=== PATIENT | female | born 1970 | race Caucasian/White ===

== ENCOUNTER 2020-10-22 02:32 | Emergency (ER) | payer BC, SELFPAY ==
--- NOTE | ~2020-10-22 | US_ITS ---
EXAMINATION: US VENOUS ULTRASOUND WITH DOPPLER LOWER EXTREMITY, BILATERAL CLINICAL INFORMATION: Bilateral lower extremity edema. Assess for occult DVT. COMPARISON: None TECHNIQUE: Ultrasound of the deep veins is performed from the hip to the calf with compression sonography and color and pulse Doppler assessment. Spectral analysis with color-flow imaging is performed. FINDINGS: RIGHT: There is normal venous compression and respiratory variation and augmented flow. The visualized common femoral vein, superficial femoral vein, profunda femoral vein, popliteal vein, and the trifurcation region shows no evidence of deep venous thrombosis. No visible popliteal fossa cyst. LEFT: There is normal venous compression and respiratory variation and augmented flow. The visualized common femoral vein, superficial femoral vein, profunda femoral vein, popliteal vein, and the trifurcation region shows no evidence of deep venous thrombosis. No visible popliteal fossa cyst. US/US venous duplex LE BI IMPRESSION: No DVT demonstrated in the bilateral lower extremity.
[2020-10-22 02:54] VITALS: BP 129/88; PULSE 97; RESP 16; TEMP 36.7; O2SAT 98; BMI 40.7
--- NOTE | 2020-10-22 03:50 | PC.NURSE ---
PATIENT REPORTED TO THIS THAT SHE HAS BEEN TAKING LASIX TO REDUCE HER LEG SWELLING, AND STARTED TAKING AN ELIQUIS YESTERDAY, PATIENT HAS DISCOLORATION ON PARTS OF HER LEG, LOOKING LIKE BRUISING. PATIENT WAS ABLE TO AMBULATE.
[2020-10-22 05:34] LABS: MANUAL DIFF FLAG NO
[2020-10-22 05:35] LABS: Basophils Absolute Auto 0.1 X10*3/uL (0.0-0.2); Basophils Percent Auto 0.7 % (0-2); Eosinophils Absolute Auto 0.1 X10*3/uL (0.0-0.4); Hematocrit 34.1 % (37-47); Hemoglobin 11.3 g/dl (12.0-16.0); Imm Gran Abs Auto 0.02 X10*3/uL (0.00-0.03); Imm Gran Pct Auto 0.3 % (0.0-0.4); Lymphocytes Absolute Auto 1.2 X10*3/uL (1.2-4.9); Lymphocytes Percent Auto 16.8 % (20-40); Mean Corpuscular HGB Conc 33.1 g/dl (31.0-35.0); Mean Corpuscular Hemoglobin 32.2 pg (27.0-33.0); Mean Corpuscular Volume 97.2 fL (80-98); Mean Platelet Volume 9.3 fL (9.4-12.3); Monocytes Absolute Auto 0.6 X10*3/uL (0.1-1.2); Monocytes Percent Auto 7.8 % (2-11); Neutrophils Absolute Auto 5.1 X10*3/uL (2.0-8.3); Neutrophils Percent Auto 72.4 % (45-73); Platelet Count 366 X10*3/uL (160-400); Red Blood Count 3.51 X10*6/uL (4.20-5.50); Red Cell Distribution Width 17.4 % (11.0-16.0)
[2020-10-22 05:41] LABS: Prothrombin Time 11.3 SEC (9.9-13.0)
[2020-10-22 05:58] LABS: Alanine Aminotransferase 13 U/L (0-31); Alkaline Phosphatase 114 U/L (39-117); Anion Gap 13 (12-20); Aspartate Amino Transferase 23 U/L (5-31); Bilirubin Total 0.7 mg/dL (0.0-1.0); Blood Urea Nitrogen 5 mg/dL (9-16); Calcium 9.1 mg/dL (8.4-10.2); Carbon Dioxide 30 mmol/L (22-29); Chloride 102 mmol/L (96-108); Creatinine Clr Calc Pharmacy 118.2; Estimated Glomerular Filt Rate > 60; Glucose Random 131 mg/dL (60-115); Potassium 3.6 mmol/L (3.3-5.1); Sodium 141 mmol/L (135-145); Total Protein 6.7 g/dL (6.5-8.0)
[2020-10-22 05:58] LABS: Troponin-I High Sensitivity < 3.5 ng/L (<3.5-17.0)
--- NOTE | 2020-10-22 07:00 | PC.NURSE ---
First contact with patient. Pt is ambulating around room. Pt having erratic behavior. Pt encouraged to get in bed for assessment. Left leg and foot is swollen with multiple bruising noted on leg and behind knee. Pt states it is hot to touch. Skin temp is warm and the same temperature as the right leg and both arms. 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 When asked if she has a prescription she just says I have access .
[2020-10-22 07:13] VITALS: BP 133/57; PULSE 86; RESP 18; O2SAT 98
--- NOTE | 2020-10-22 07:15 | PC.NURSE ---
Pt ambulatory back from the bathroom after collecting a urine specimen. Urine appears very diluted and urine cup is cool for a specimen that was just collected.
[2020-10-22 07:26] LABS: Glucose Urine UA NEG (NEG); Leukocyte Esterase Urine NEG (NEG); Nitrite Urine NEG (NEG); Specific Gravity - Urine <= 1.005 (1.005-1.025); Urine Blood NEG (NEG); Urine Ketones NEG (NEG); Urine Protein NEG (NEG-TRACE)
--- NOTE | 2020-10-22 07:26 | ED.GENADULT ---
HPI - General Adult General Chief complaint: General Medical Stated complaint: left leg swelling Time Seen by Provider: 10/22/20 03:03 Source: patient Mode of arrival: ambulatory Limitations: no limitations History of Present Illness HPI narrative: Patient comes emergency room complaining of bilateral leg swelling, worse on the left side. Patient states about 3 weeks ago she took 3 doses of Lasix 40 mg/day but did not help much with the swelling. Patient states throughout the last couple of weeks the swelling actually started reducing. However, over last few days she started noticing that her left leg started getting warm, tender, and becoming more edematous. Patient states that she was able to get a hold of 5 mg of Xarelto, took 1 dose 2 days ago. Over the next 2 days, patient has been complaining of bruising from the knee to the foot on the left side. Patient denies fever chills Related Data Previous Rx's Medication Instructions Recorded cephalexin [Keflex] 750 mg PO BID #14 cap 10/22/20 doxycycline hyclate 100 mg PO BID #14 cap 10/22/20 furosemide [Lasix] 40 mg PO DAILY #7 tab 10/22/20 Allergies Allergy/AdvReac Type Severity Reaction Status Date / Time No Known Allergies Allergy Unverified 12/22/19 16:20 Review of Systems Review of Systems: Constitutional : No Weight loss, No Fever, No Chills, No Night Sweats, No Fatigue, No Malaise ENT/Mouth : No Hearing loss, No Ear Pain, No Nasal Congestion, No Sinus Pain, No Hoarseness, No sore throat, No Rhinorrhea, No Swallowing Difficulty Eyes: No Eye Pain, No Swelling, No Redness, No Foreign Body, No Discharge, No Vision Changes Cardiovascular : No Chest Pain, No SOB, No Dyspnea on Exertion, No Orthopnea, No Edema, No Palpitations Respiratory : No Cough, No Sputum, No Wheezing, No Smoke Exposure, No Dyspnea Gastrointestinal : No Nausea, No Vomiting, No Diarrhea, No Constipation, No abdominal Pain, No Hematochezia, No Melena Genitourinary : no irregular bleeding, No Dysuria, No Urinary Frequency, No Hematuria, No Urinary Incontinence, No Urgency, No Flank Pain, No Urinary Flow Changes, No Hesitancy Musculoskeletal : No joint pain, No Myalgias, complaining of bilateral lower extremity swelling and bruising on the left leg Skin : No Skin Lesions, No rash Neuro : No Weakness, No Numbness, No Paresthesias, No Loss of Consciousness, No Dizziness, No Headache Psych : No Anxiety/Panic, No Depression, No SI/HI/AH/VH, No Social Issues, Heme/Lymph: No Bruising, No Bleeding,No Lymphadenopathy Endocrine : No Polyuria, No Polydipsia, No Temperature Intolerance [facility] Past Medical History Medical History Alcohol abuse Social History Social History Advance Directives: Yes Advance Directives Information Provided: Yes Advance Directives on File: No Patient : No Physical Exam Vital Signs: Vital Signs: Last Vital Signs Temp 98.1 F 10/22/20 02:54 Pulse 82 10/22/20 10:22 Resp 20 10/22/20 10:22 BP 140/82 H 10/22/20 10:22 Pulse Ox 98 10/22/20 10:22 Body Mass Index 40.7 Appearance: Alert. Oriented X3. No acute distress. Eyes: Pupils equal, round and reactive to light. ENT: Pharynx normal. Neck: Normal inspection. Neck supple. No lymph nodes noted. No crepitus CVS: Normal heart rate and rhythm. Pulses normal. Normal S1 and S2 Respiratory: No respiratory distress. Breath sounds normal. No Wheezing. No rales Abdomen: Soft and nontender. No rigidity. No distention. good BS x4 Skin: Skin warm and dry. Normal skin color. Normal skin turgor. Extremities: Bilateral lower extremity pitting edema, +1 in the right side, close 3 in the left extremity from the knee down, diffuse ecchymosis from the knee down, erythema above the ankles on the left leg, warm to touch, no calf pain bilaterally Neuro: Oriented X 3. No motor deficit. No sensory deficit. Moving all extermities. No slurred speech. Course Course Course Narrative: Ultrasound pending. Patient denies chest pain or shortness of breath. Patient while blood cell count is within normal limits, ultrasound does not show any DVT. Patient likely has lower extremity cellulitis. Patient given a prescription for Lasix and also Keflex and doxycycline. Medical Decision Making Lab Data Result diagrams: 10/22/20 05:26 10/22/20 05:26 Labs: Lab Results 10/22/20 10/22/20 10/22/20 Range/Units 05:26 05:26 05:26 WBC 7.0 (4.8-10.8) X10*3/uL RBC 3.51 L (4.20-5.50) X10*6/uL Hgb 11.3 L (12.0-16.0) g/dl Hct 34.1 L (37-47) % MCV 97.2 (80-98) fL MCH 32.2 (27.0-33.0) pg MCHC 33.1 (31.0-35.0) g/dl RDW 17.4 H (11.0-16.0) % Plt Count 366 (160-400) X10*3/uL MPV 9.3 L (9.4-12.3) fL Immature Gran % (Auto) 0.3 (0.0-0.4) % Neut % (Auto) 72.4 (45-73) % Lymph % (Auto) 16.8 L (20-40) % [place] % (Auto) 7.8 (2-11) % Eos % (Auto) 2.0 (0-4) % Baso % (Auto) 0.7 (0-2) % Lymph # (Auto) 1.2 (1.2-4.9) X10*3/uL [place] # (Auto) 0.6 (0.1-1.2) X10*3/uL Eos # (Auto) 0.1 (0.0-0.4) X10*3/uL Baso # (Auto) 0.1 (0.0-0.2) X10*3/uL Abs Immat Gran (auto) 0.02 (0.00-0.03) X10*3/uL Absolute Neuts (auto) 5.1 (2.0-8.3) X10*3/uL Absolute Nucleated RBC 0.000 (0.0-0.012) X10*3/uL Nucleated RBC % (auto) 0.0 (0.0-0.2) /100WBC PT 11.3 (9.9-13.0) SEC INR 1.0 (0.9-1.1) Sodium 141 (135-145) mmol/L Potassium 3.6 (3.3-5.1) mmol/L Chloride 102 (96-108) mmol/L Carbon Dioxide 30 H (22-29) mmol/L Anion Gap 13 (12-20) BUN 5 L (9-16) mg/dL Creatinine 0.65 (0.5-1.4) mg/dL Estim Creat Clear Calc 118.2 Estimated GFR > 60 Random Glucose 131 H (60-115) mg/dL Calcium 9.1 (8.4-10.2) mg/dL Total Bilirubin 0.7 (0.0-1.0) mg/dL AST 23 (5-31) U/L ALT 13 (0-31) U/L Alkaline Phosphatase 114 (39-117) U/L Troponin I High Sens (<3.5-17.0) ng/L Total Protein 6.7 (6.5-8.0) g/dL Albumin 4.0 (3.5-5.0) g/dL Urine Color Urine Appearance Urine pH (5.0-8.0) Ur Specific [place] (1.005-1.025) Urine Protein (NEG-TRACE) MG/DL Urine Glucose (UA) (NEG) MG/DL Urine Ketones (NEG) MG/DL Urine Blood (NEG) Urine Nitrite (NEG) Ur Leukocyte Esterase (NEG) Urine Opiates Screen (Not Detect) Ur Barbiturates Screen (Not Detect) Ur Phencyclidine Scrn (Not Detect) Ur Amphetamines Screen (Not Detect) U Benzodiazepines Scrn (Not Detect) Urine Cocaine Screen (Not Detect) U Marijuana (THC) Screen (Not Detect) 10/22/20 10/22/20 10/22/20 Range/Units 05:27 07:17 07:17 WBC (4.8-10.8) X10*3/uL RBC (4.20-5.50) X10*6/uL Hgb (12.0-16.0) g/dl Hct (37-47) % MCV (80-98) fL MCH (27.0-33.0) pg MCHC (31.0-35.0) g/dl RDW (11.0-16.0) % Plt Count (160-400) X10*3/uL MPV (9.4-12.3) fL Immature Gran % (Auto) (0.0-0.4) % Neut % (Auto) (45-73) % Lymph % (Auto) (20-40) % [place] % (Auto) (2-11) % Eos % (Auto) (0-4) % Baso % (Auto) (0-2) % Lymph # (Auto) (1.2-4.9) X10*3/uL [place] # (Auto) (0.1-1.2) X10*3/uL Eos # (Auto) (0.0-0.4) X10*3/uL Baso # (Auto) (0.0-0.2) X10*3/uL Abs Immat Gran (auto) (0.00-0.03) X10*3/uL Absolute Neuts (auto) (2.0-8.3) X10*3/uL Absolute Nucleated RBC (0.0-0.012) X10*3/uL Nucleated RBC % (auto) (0.0-0.2) /100WBC PT (9.9-13.0) SEC INR (0.9-1.1) Sodium (135-145) mmol/L Potassium (3.3-5.1) mmol/L Chloride (96-108) mmol/L Carbon Dioxide (22-29) mmol/L Anion Gap (12-20) BUN (9-16) mg/dL Creatinine (0.5-1.4) mg/dL Estim Creat Clear Calc Estimated GFR Random Glucose (60-115) mg/dL Calcium (8.4-10.2) mg/dL Total Bilirubin (0.0-1.0) mg/dL AST (5-31) U/L ALT (0-31) U/L Alkaline Phosphatase (39-117) U/L Troponin I High Sens < 3.5 (<3.5-17.0) ng/L Total Protein (6.5-8.0) g/dL Albumin (3.5-5.0) g/dL Urine Color STRAW Urine Appearance CLEAR Urine pH 6.0 (5.0-8.0) Ur Specific [place] <= 1.005 (1.005-1.025) Urine Protein NEG (NEG-TRACE) MG/DL Urine Glucose (UA) NEG (NEG) MG/DL Urine Ketones NEG (NEG) MG/DL Urine Blood NEG (NEG) Urine Nitrite NEG (NEG) Ur Leukocyte Esterase NEG (NEG) Urine Opiates Screen Not Detected (Not Detect) Ur Barbiturates Screen Not Detected (Not Detect) Ur Phencyclidine Scrn Not Detected (Not Detect) Ur Amphetamines Screen POSITIVE H (Not Detect) U Benzodiazepines Scrn POSITIVE H (Not Detect) Urine Cocaine Screen Not Detected (Not Detect) U Marijuana (THC) Screen Not Detected (Not Detect) Imaging Data Lower extremity ultrasound: Radiologist's impression: RIGHT: There is normal venous compression and respiratory variation and augmented flow. The visualized common femoral vein, superficial femoral vein, profunda femoral vein, popliteal vein, and the trifurcation region shows no evidence of deep venous thrombosis. No visible popliteal fossa cyst. LEFT: There is normal venous compression and respiratory variation and augmented flow. The visualized common femoral vein, superficial femoral vein, profunda femoral vein, popliteal vein, and the trifurcation region shows no evidence of deep venous thrombosis. No visible popliteal fossa cyst. US/US venous duplex LE BI IMPRESSION: No DVT demonstrated in the bilateral lower extremity. Discharge Plan Discharge Clinical Impression: Bilateral leg edema, Cellulitis of left lower leg Patient Disposition: Home, Self-Care Instructions: Cellulitis (ED), Leg Edema (ED) Additional Instructions: Please follow-up with your primary care physician tomorrow. If you have any worsening or new symptoms, please return to the emergency room or call 911 Prescriptions: New furosemide [Lasix] 40 mg tablet 40 mg PO DAILY Qty: 7 RF: 0 doxycycline hyclate 100 mg capsule 100 mg PO BID Qty: 14 RF: 0 cephalexin [Keflex] 750 mg capsule 750 mg PO BID Qty: 14 RF: 0 Stand Alone Forms: Work/School Release
[2020-10-22 07:29] LABS: Appearance Urine CLEAR; Color Urine STRAW
--- NOTE | 2020-10-22 07:55 | PC.NURSE ---
Patient ambulating in hallway without mask being loud and demanding someone call ultrasound about doing her ultrasound as soon as possible. Pt encouraged to go back to room and attempts made to explain to patient the ultrasound will call when it is her turn in there schedule. Pt continues to be loud and using profanity toward staff not wanting to go back to her room.
[2020-10-22 07:59] LABS: Amphetamine Screen Urine POSITIVE (Not Detect); Barbiturates, Urine Not Detected (Not Detect); Benzodiazepines Screen Urine POSITIVE (Not Detect); Cannabinoid Screen Urine Not Detected (Not Detect); Cocaine Screen Urine Not Detected (Not Detect); Opiate Screen Urine Not Detected (Not Detect); Phencyclidine Screen Urine Not Detected (Not Detect)
--- NOTE | 2020-10-22 08:00 | PC.NURSE ---
Patient in room pulling call light out of wall and putting it back in repeatedly then turning it off. Pt tells staff responding to call light that she does not need anything. Pt asked by nursing staff not to play with call light.
--- NOTE | 2020-10-22 08:05 | PC.NURSE ---
Patient in room pulling call light out of wall and putting it back in repeatedly then turning it off. Pt tells staff responding to call light that she does not need anything Pt asked by nursing staff not to play with call light.
--- NOTE | 2020-10-22 08:05 | PC.NURSE ---
Patient and her belongings are no longer in room.
--- NOTE | 2020-10-22 08:17 | PC.NURSE ---
ULTRASOUND CALLED FOR PT. SHE IS NOT INHER ROOM OR FOUND IN THE ED AT THIS TIME
--- NOTE | 2020-10-22 08:35 | PC.NURSE ---
Patient has returned to ER after disappearing. Pt informed ultrasound had come to get her and she was no where to be found. Pt placed in hallway bed and ultrasound notifed that patient has returned
--- NOTE | 2020-10-22 08:50 | PC.NURSE ---
Patient to ultrasound via stretcher.
--- NOTE | 2020-10-22 09:50 | PC.NURSE ---
pt back from ultrasound
[2020-10-22 10:22] VITALS: BP 140/82; PULSE 82; RESP 20; O2SAT 98
--- NOTE | 2020-10-22 10:23 | PC.NURSE ---
Patient in hallway pacing between a chair and bed she is assigned to. Pt stopping various hospital staff members to go get the doctor because she wants to home. Pt reassured that the doctor will be with her soon, that the doctor is with another patient. Even after being reassured by different nursing staff that the doctor sebastian be coming. Pt states she just needs a work excuse to cover her for all the days she has missed from work.
--- NOTE | 2020-10-22 10:35 | PC.NURSE ---
Patient is at nurses station being loud and demanding for doctor to see her so she can get her discharge papers and work excuse. Pt encouraged to go back to her bed. Pt refuses and is being confrontational with nursing staff. Security escorting patient back to her assigned bed.
--- NOTE | 2020-10-22 10:44 | PC.NURSE ---
discharge instructions given to pt who verbalized understanding and denies any questions. pt amb to exit in no distress
== END 2020-10-22 10:45 | disposition home or self-care (01) ==
PROVIDERS: Emergency Provider Emergency Medicine
DX: L03.116 Cellulitis of left lower limb (principal); R60.0 Localized edema
CPT/HCPCS: 36415; 80053; 80307; 81003; 84484; 85025; 85610; 93970; 99284

== ENCOUNTER 2021-01-01 20:48 | Emergency (ER) | payer BC, SELFPAY ==
[2021-01-01 20:57] VITALS: BP 139/81; PULSE 120; RESP 19; TEMP 37.3; O2SAT 95; BMI 29.0
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
[2021-01-01 21:23] LABS: MANUAL DIFF FLAG NO
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
[2021-01-01 21:27] LABS: Basophils Percent Auto 0.6 % (0-2); Eosinophils Percent Auto 0.3 % (0-4); Hematocrit 40.3 % (37-47); Hemoglobin 13.8 g/dl (12.0-16.0); Imm Gran Abs Auto 0.01 X10*3/uL (0.00-0.03); Imm Gran Pct Auto 0.3 % (0.0-0.4); Lymphocytes Absolute Auto 0.8 X10*3/uL (1.2-4.9); Lymphocytes Percent Auto 23.9 % (20-40); Mean Corpuscular HGB Conc 34.2 g/dl (31.0-35.0); Mean Corpuscular Hemoglobin 33.9 pg (27.0-33.0); Mean Platelet Volume 8.9 fL (9.4-12.3); Monocytes Absolute Auto 0.1 X10*3/uL (0.1-1.2); Monocytes Percent Auto 4.4 % (2-11); Neutrophils Absolute Auto 2.2 X10*3/uL (2.0-8.3); Neutrophils Percent Auto 70.5 % (45-73); Platelet Count 326 X10*3/uL (160-400); Red Blood Count 4.07 X10*6/uL (4.20-5.50); Red Cell Distribution Width 15.4 % (11.0-16.0); White Blood Count 3.2 X10*3/uL (4.8-10.8)
[2021-01-01 21:27] LABS: Appearance Urine HAZY; Color Urine YELLOW; Glucose Urine UA NEG (NEG); Leukocyte Esterase Urine NEG (NEG); Nitrite Urine NEG (NEG); UACC Culture Trigger NO; Urine Blood TRACE (NEG); Urine Ketones NEG (NEG); Urine Protein TRACE MG/DL (NEG-TRACE)
[2021-01-01 21:33] LABS: UPreg QC Valid YES; Urine Pregnancy NEGATIVE (NEGATIVE)
[2021-01-01 21:36] LABS: Bacteria Urine 2+ /LPF; RBC Urine 0-2 /HPF (0); Squamous Epithelial Cell Urine 3+ /LPF; WBC Urine 0-2 /HPF (0-4)
[2021-01-01 21:39] LABS: COVID-19 Test Negative (Negative)
[2021-01-01 21:39] LABS: Ethanol 327 mg/dL
[2021-01-01 21:47] LABS: Alanine Aminotransferase 20 U/L (0-31); Alkaline Phosphatase 92 U/L (39-117); Anion Gap 19 (12-20); Aspartate Amino Transferase 43 U/L (5-31); Bilirubin Direct 0.2 mg/dL (0.0-0.5); Bilirubin Total 0.6 mg/dL (0.0-1.0); Blood Urea Nitrogen 7 mg/dL (9-16); Calcium 8.6 mg/dL (8.4-10.2); Carbon Dioxide 21 mmol/L (22-29); Chloride 106 mmol/L (96-108); Creatinine Clr Calc Pharmacy 105.7; Estimated Glomerular Filt Rate > 60; Glucose Random 148 mg/dL (60-115); Potassium 4.1 mmol/L (3.3-5.1); Sodium 142 mmol/L (135-145); Total Protein 7.3 g/dL (6.5-8.0)
[2021-01-01] MEDS: chlordiazePOXIDE HCl 25 MG CAPSULE 50 MG PO (21:58)
[2021-01-01 23:28] VITALS: BP 143/89; PULSE 107; RESP 17; TEMP 36.9; O2SAT 96
[2021-01-02 05:09] VITALS: BP 143/91; PULSE 105; RESP 17; O2SAT 97
[2021-01-02] MEDS: chlordiazePOXIDE HCl 25 MG CAPSULE 50 MG PO ×3 (05:15→14:21)
[2021-01-02 05:25] LABS: Amphetamine Screen Urine Not Detected (Not Detect); Barbiturates, Urine Not Detected (Not Detect); Benzodiazepines Screen Urine Not Detected (Not Detect); Cannabinoid Screen Urine Not Detected (Not Detect); Cocaine Screen Urine Not Detected (Not Detect); Fentanyl, urine Not Detected (Not Detect); Opiate Screen Urine Not Detected (Not Detect); Phencyclidine Screen Urine Not Detected (Not Detect)
--- NOTE | 2021-01-02 05:54 | PC.NURSE ---
Patient slept five and half hours, patient is waiting to be seen by the care team in the morning, patient is hyper-verbal, loud, argumentative, medication seeking, patient is tangential, alert and oriented x4, VSS, received Librium 50 mg x2 for comfort, patient is asymptomatic of withdrawal at this time, will continue to monitor.
[2021-01-02] MEDS: Buprenorphine/Naloxone 2/0.5mg FILM 1 FILM SUBLINGUAL (06:26)
--- NOTE | 2021-01-02 06:29 | PC.NURSE ---
Patient requested her suboxone early, provider notified/okayed, administered as ordered,
[2021-01-02 07:51] VITALS: BP 155/101; PULSE 110; RESP 20; TEMP 36.8
--- NOTE | 2021-01-02 08:50 | PC.NURSE ---
Care team meeting with pt at this time.
--- NOTE | 2021-01-02 09:18 | PC.NURSE ---
John Mims called wanting to speak with clinician [phone]
[2021-01-02] MEDS: DULoxetine HCl 30 MG CAPSULE.DR PO (09:39)
--- NOTE | 2021-01-02 12:25 | MHC.RECOVSUP ---
? Reason for consult:Continuity of care o Current location: [facility] o Identified substance use concern: ETOH - Withdrawal - Seeking ATS (detox) - Support ? Intervention: o ATS bed search started/completed/in process o MAT started or to be started o Community resources provided o Harm reduction discussion ? Plan: o Referral to [facility] o Bed search in progress to o Patient to follow up with [facility] after discharge ? Additional information: Pt. refusing detox, gave pt. community resources, Pt. wants detox tomorrow.
--- NOTE | 2021-01-02 13:12 | MHC.CARE ---
Beginning at 8:45 am CARE Team met with patient in [facility] for a lengthy conversation. She was sitting up in bed, appeared her stated age, dressed in hospital gown, hygiene and grooming unremarkable, she maintained appropriate eye contact, was alert and fully oriented. Patient?s speech was notably pressured and rapid, expansive, somewhat tangential though did eventually get to her point or answer the question asked. She reviewed multiple losses, 20 year sustained recovery from opiate addiction, several detoxes from alcohol over the last two years and current involvement with DCF. Patient and her have two children; due to relapses on they were both in DCF custody and living with relatives for the last year. 13 year-old daughter was returned home yesterday with the stipulation that patient be out of the home. By report, patient was sleeping in her car outside the family home and her nephew came and drove her to a hotel last night where she subsequently drank, was driving and was stopped by the police and made suicidal statements then brought to [facility] ED. Today patient stated that she is not suicidal, has no plan or intention to end her life, admitted that she has been under tremendous stress, was quite intoxication and may have said something to that effect. At this time she does not want detox, wants to go home, shower and gather her things at home and will self-refer tomorrow. Patient was strongly encouraged not go home and to accept the help offered. Multiple conversations with patient?s , he stated that he is not concerned his will commit suicide and she has no history of gestures or attempts. Ultimately the hospital cannot keep patient here against her will and she does not want the recommended level of care recommended. Several back and forth meetings with patient who changed her mind several times, asked to be discharged. ? Discussed disposition with receiving supervisor, KWASI Nix and ED provider, DEJAH Erazo.
[2021-01-02] MEDS: Ondansetron ODT 4 MG TAB.RAPDIS TRANSLINGU (13:13)
[2021-01-02] MEDS: Loperamide HCl 2 MG CAPSULE PO (13:13)
--- NOTE | 2021-01-02 13:54 | MHC.CARE ---
Patient agreed to go to detox, did a phone intake with [facility] however is unable to go due to insurance, the plan is for her to discharge and self refer to detox and will take Librium tonight so she can abstain from alcohol safely. of patient adamant that she not go into the home as DCF mandated and patient agrees not to enter the home. Her will pack a bag and leave it in patient's car up the street from the family home and patient will go to a hotel.
--- NOTE | 2021-01-02 14:15 | MHC.RECOVSUP ---
Recovery Support note: Patient is a 50 year old Nauruan speaking female who presented to [facility] ED after making SI statements while intoxicated. Patient was seen by the CARE Team and cleared for discharge or detox. Patient met with Marine Oiler who reports patient wants to go to ATS tomorrow. Patient later changed her mind however was unable to go to a local facility due to insurance. This web content writer met with patient to discuss ATS. Patient reports she is very familiar with the process on how to refer to detox. Discussed ATS facilities and provided patient with numbers to call when she is ready for treatment. Discussed case with CARE Team.
== END 2021-01-02 14:40 | disposition home or self-care (01) ==
PROVIDERS: Emergency Medicine; Emergency Provider Internal Medicine
DX: F33.1 Major depressive disorder, recurrent, moderate (principal); R45.851 Suicidal ideations; F10.129 Alcohol abuse with intoxication, unspecified; Y90.8 Blood alcohol level of 240 mg/100 ml or more; Z20.822 Contact with and (suspected) exposure to COVID-19; Z79.899 Other long term (current) drug therapy
CPT/HCPCS: 36415; 80048; 80076; 80307; 81001; 81025; 82077; 83735; 85025; 87635; 99284

== ENCOUNTER 2021-05-19 18:02 | Inpatient (IN) | payer BC, SELFPAY ==
--- NOTE | ~2021-05-19 | XR_ITS ---
EXAMINATION: XR knee RT 2V, XR knee LT 2V CLINICAL INFORMATION: Fall and trauma. COMPARISON: None. TECHNIQUE: AP and lateral views of both knees. FINDINGS: Status post right total knee arthroplasty with patellar resurfacing. Hardware is intact. There is a well-corticated lucency anterior to the tibial component. No fracture, dislocation, or joint effusion. Status post left total knee arthroplasty with patellar resurfacing. There may be a small suprapatellar left joint effusion. Well-corticated lucency anterior to the tibial component is seen on the left as well. No fracture or dislocation. XR/XR knee LT 2V IMPRESSION: No acute osseous abnormality of either knee. Bilateral total knee arthroplasties with patellar resurfacing. Possible small suprapatellar left knee joint effusion. There is lucency anterior to the tibial components of both knee prostheses, more likely focal osteopenia than periprosthetic lucency to suggest loosening or hardware failure. No prior studies available for comparison. Comparison with postoperative studies would be helpful.
--- NOTE | ~2021-05-19 | XR_ITS ---
EXAMINATION: XR knee RT 2V, XR knee LT 2V CLINICAL INFORMATION: Fall and trauma. COMPARISON: None. TECHNIQUE: AP and lateral views of both knees. FINDINGS: Status post right total knee arthroplasty with patellar resurfacing. Hardware is intact. There is a well-corticated lucency anterior to the tibial component. No fracture, dislocation, or joint effusion. Status post left total knee arthroplasty with patellar resurfacing. There may be a small suprapatellar left joint effusion. Well-corticated lucency anterior to the tibial component is seen on the left as well. No fracture or dislocation. XR/XR knee RT 2V IMPRESSION: No acute osseous abnormality of either knee. Bilateral total knee arthroplasties with patellar resurfacing. Possible small suprapatellar left knee joint effusion. There is lucency anterior to the tibial components of both knee prostheses, more likely focal osteopenia than periprosthetic lucency to suggest loosening or hardware failure. No prior studies available for comparison. Comparison with postoperative studies would be helpful.
[2021-05-19 18:22] VITALS: BP 111/84; BP 150/90; PULSE 104; PULSE 127; RESP 20; TEMP 36.8; O2SAT 100; BMI 33.3
[2021-05-19 18:48] VITALS: PULSE 102
--- NOTE | 2021-05-19 19:02 | ED.GENADULT ---
HPI - General Adult General Chief complaint: ETOH/Substance Use Stated complaint: Etoh/fall Time Seen by Provider: 05/19/21 18:34 Source: patient and EMS Mode of arrival: EMS Limitations: no limitations History of Present Illness HPI narrative: 50-year-old female came in by ambulance for evaluation of multiple falls and alcoholism problem. Patient with chronic alcoholism problem, admitted that she has been bingeing drinking alcohol for the past week without eating, patient had a multiple falls with diffuse bruises on her scan on different part of her body mostly on her knees, back, buttock. Patient also found to have selma skin infection in the perineal area. Patient takes Suboxone 4 mg daily has not taking her daily Suboxone for the past week and patient is complaining of diarrhea. Related Data Home Medications Medication Instructions Recorded Confirmed buprenorphine 2 mg-naloxone 0.5 mg 1 strip SUBLINGUAL DAILY 01/02/21 01/02/21 sublingual film duloxetine 30 mg capsule,delayed 30 mg PO DAILY 01/02/21 01/02/21 release Previous Rx's Medication Instructions Recorded chlordiazepoxide HCl 25 mg capsule 25 mg PO Q6H PRN #8 cap 01/02/21 Allergies Allergy/AdvReac Type Severity Reaction Status Date / Time No Known Allergies Allergy Unverified 12/22/19 16:20 Review of Systems Review of Systems: All other systems are reviewed and are negative Constitutional: Reports as per HPI and Reports no additional constitutional complaints Eyes: Reports as per HPI and Reports no additional eye complaints Reports system reviewed and no additional complaints, except as documented Cardiovascular: Reports as per HPI and Reports no additional cardiovascular complaints Respiratory: Reports as per HPI and Reports no additional respiratory complaints Gastrointestinal: Reports as per HPI and Reports no additional gastrointestinal complaints Genitourinary: Reports no additional female genitourinary complaints Musculoskeletal: Reports no additional musculoskeletal complaints Skin/Breast: Reports system reviewed and no additional complaints, except as docu Psychiatric: Reports no additional psychiatric complaints Endocrine: Reports no additional endocrine complaints Hematologic/Lymphatic: Reports no additional hematologic/lymphatic complaints Allergic/Immunologic: Reports no additional allergic/immunologic complaints Reports system reviewed and no additional complaints, except as documented and Reports Abnormal speech present [facility] Past Medical History Medical History Alcohol abuse Surgical History (Updated 05/19/21 @ 19:53 by Darwin Day) History of gastric surgery Social History Social History Alcohol intake: current Alcohol intake frequency: 3 or more drinks per day Patient Tobacco Use Status: Tobacco use Unknown Use of substances other than those prescribed or required for medical reasons: Unknown Advance Directives: No Advance Directives Information Provided: Yes Physical Exam ED Vital Signs: Vital Signs - 24 hr 05/19/21 18:22 05/19/21 20:31 05/19/21 20:33 Temperature 98.3 F Pulse Rate 104 H 96 82 Respiratory Rate 20 Blood Pressure 111/84 128/81 106/71 Pulse Oximetry 100 05/19/21 21:00 Temperature Pulse Rate 104 H Respiratory Rate 18 Blood Pressure 106/71 Pulse Oximetry 95 BMI result Body Mass Index 33.3 Vital signs have been reviewed as appeared to be correct. Blood pressure normal. Heart rate elevated. Respiration rate normal. Temperature normal. Oxygen saturation normal. Appearance: Alert. Oriented X3. No acute distress. Head: Normal external exam. Normocephalic. Atraumatic. No Cobb signs noted. No raccoon eyes noted Eyes: PERRLA. EOMI. Conjunctiva and sclera normal. Eyelids normal. ENT: TM's Normal. Pharynx normal. Uvula midline. Moist mucous membranes. No trismus noted. No drooling noted. No muffled voice noted. Neck: Normal inspection. Neck supple. FROM. No adenopathy. Thyroid Normal. No meningeal signs. No neck mass noted. CVS: Normal heart rate and rhythm. Heart sound normal. No murmurs noted. Pulses normal throughout. Respiratory: No respiratory distress. Painless inspiration. Breath sounds normal. No wheezes/rales/rhonchi noted. Chest nontender. No accessory muscle usage noted or decreased air movement noted. Abdomen: Soft and nontender. Bowel sounds normal in all 4 quadrants. No distention noted. No organomegaly noted. No visible injury noted. Back: No CVA tenderness. Full range of motion noted. Skin: Skin redness consistent with Selma infection in the perineal area. Extremities: Diffuse ecchymosis of different stages on her buttock and bilateral knees area also on her back. Neuro: Oriented X 3. Cranial nerve exam: II-XII are grossly intact No motor deficit. No sensory deficit. Reflexes normal. Course Course Course Narrative: Assessment and plan. 50 years old female chronic alcoholism has been bingeing on alcohol for the past 7 days, came in with multiple falls, patient also on Suboxone that she did not take for the past week. 1. Hyponatremia will start on normal saline at 100 cc/hour and will get Nephrology consult. 2. Alcoholism expecting patient to start withdrawal once alcohol level is lower will start the patient on phenobarb. 3. Patient is disheveled with Selma skin infection in the perineal area when years nystatin. Reevaluation(s) Reevaluation #1: spoke with Dr. Sequeira from nephrology, recheck Na [id number] and continue with NS 100cc/hr, check urine lytes and osmolality. Time: 20:45 Medical Decision Making Lab Data Result diagrams: 05/19/21 19:15 05/19/21 19:15 Labs: Lab Results 05/19/21 05/19/21 05/19/21 Range/Units 19:15 19:15 19:15 WBC 7.3 (4.8-10.8) X10*3/uL RBC 3.68 L (4.20-5.50) X10*6/uL Hgb 11.7 L (12.0-16.0) g/dl Hct 32.1 L (37.0-47.0) % MCV 87.2 (80.0-98.0) fL MCH 31.8 (27.0-33.0) pg MCHC 36.4 H (31.0-35.0) g/dl RDW 17.3 H (11.0-16.0) % Plt Count 138 L (160-400) X10*3/uL MPV 9.5 (9.4-12.3) fL Immature Gran % (Auto) 0.3 (0.0-0.4) % Neut % (Auto) 89.9 H (45-73) % Lymph % (Auto) 2.9 L (20-40) % [place] % (Auto) 6.8 (2-11) % Eos % (Auto) 0.1 (0-4) % Baso % (Auto) 0.0 (0-2) % Lymph # (Auto) 0.2 L (1.2-4.9) X10*3/uL [place] # (Auto) 0.5 (0.1-1.2) X10*3/uL Eos # (Auto) 0.0 (0.0-0.4) X10*3/uL Baso # (Auto) 0.0 (0.0-0.2) X10*3/uL Abs Immat Gran (auto) 0.02 (0.00-0.03) X10*3/uL Absolute Neuts (auto) 6.6 (2.0-8.3) x10*3/uL Absolute Nucleated RBC 0.000 (0.0-0.012) X10*3/uL Nucleated RBC % (auto) 0.0 (0.0-0.2) /100WBC Sodium 122 L (135-145) mmol/L Potassium 3.9 (3.3-5.1) mmol/L Chloride 82 L D (96-108) mmol/L Carbon Dioxide 24 (22-29) mmol/L Anion Gap 20 (12-20) BUN 7 L (9-16) mg/dL Creatinine 0.55 (0.5-1.4) mg/dL Estim Creat Clear Calc 123.8 Estimated GFR > 60 Random Glucose 135 H (60-115) mg/dL Osmolality (281-305) mosm/kg Calcium 8.3 L (8.4-10.2) mg/dL Magnesium 1.9 (1.6-2.6) mg/dL Lipase 33 (8-78) U/L Ethyl Alcohol 356 H* mg/dL 05/19/21 Range/Units 19:18 WBC (4.8-10.8) X10*3/uL RBC (4.20-5.50) X10*6/uL Hgb (12.0-16.0) g/dl Hct (37.0-47.0) % MCV (80.0-98.0) fL MCH (27.0-33.0) pg MCHC (31.0-35.0) g/dl RDW (11.0-16.0) % Plt Count (160-400) X10*3/uL MPV (9.4-12.3) fL Immature Gran % (Auto) (0.0-0.4) % Neut % (Auto) (45-73) % Lymph % (Auto) (20-40) % [place] % (Auto) (2-11) % Eos % (Auto) (0-4) % Baso % (Auto) (0-2) % Lymph # (Auto) (1.2-4.9) X10*3/uL [place] # (Auto) (0.1-1.2) X10*3/uL Eos # (Auto) (0.0-0.4) X10*3/uL Baso # (Auto) (0.0-0.2) X10*3/uL Abs Immat Gran (auto) (0.00-0.03) X10*3/uL Absolute Neuts (auto) (2.0-8.3) x10*3/uL Absolute Nucleated RBC (0.0-0.012) X10*3/uL Nucleated RBC % (auto) (0.0-0.2) /100WBC Sodium (135-145) mmol/L Potassium (3.3-5.1) mmol/L Chloride (96-108) mmol/L Carbon Dioxide (22-29) mmol/L Anion Gap (12-20) BUN (9-16) mg/dL Creatinine (0.5-1.4) mg/dL Estim Creat Clear Calc Estimated GFR Random Glucose (60-115) mg/dL Osmolality 352 H (281-305) mosm/kg Calcium (8.4-10.2) mg/dL Magnesium (1.6-2.6) mg/dL Lipase (8-78) U/L Ethyl Alcohol mg/dL Imaging Data Bilateral knee x-ray: Attestation: I personally reviewed and interpreted this imaging study as follows: Radiologist's impression: No acute osseous abnormality of either knee. Bilateral total knee arthroplasties with patellar resurfacing. ? Possible small suprapatellar left knee joint effusion. ? There is lucency anterior to the tibial components of both knee prostheses, more likely focal osteopenia than periprosthetic lucency to suggest loosening or hardware failure. No prior studies available for comparison. Comparison with postoperative studies would be helpful. ? Discharge Plan Discharge Clinical Impression: Alcoholic intoxication, Alcohol withdrawal syndrome, Acute hyponatremia, Selma infection of flexural skin Patient Disposition: Admitted As Inpatient
--- NOTE | 2021-05-19 19:15 | PC.NURSE ---
pt alert and oriented to place, unsure of date reports increased agitation and anxiety from alcohol withdrawal. pt states she drank 4 beers today, has been drinking a 12 pack of beer and wine daily for the past 4 days. hasn't been eating or drinking any other liquids. pt states that she normally takes 4mg of suboxone daily, but has been unable to get medication from her doctor. last dose was 05/14/21 - 1mg. pt is requesting suboxone and has a plan to check into rehab. pt has been falling at home, now having difficulty getting up, knee pain from abrasions on knees. bruises all over body, pt states from falls due to alcohol intoxication. has been having nausea, but per pt unable to vomit due to gastric bypass surgery. denies head strike, LOC, and blood thinners. pt reports multiple episodes of diarrhea over the past 4 days, not able to make it to toilet at home. pt had a brief on that had been on for an undetermined length of time. brief was heavily soiled and had disintegrated inside. skin breakdown noted across backside, with a large bedsore. swellings also noted on both upper thighs. photo documented, but unable to pull off of ED camera due to no ink. stated SI thoughts to EMS and nurse but denies plan - Bladen Suicide scale of 2, hx of depression. COWS = 9; CIWA = 5, provider notified. provider in room to examine skin breakdown. also told EMS that pt was requesting rehab and had been noncompliant with suboxone.
[2021-05-19 19:20] LABS: MANUAL DIFF FLAG NO
[2021-05-19 19:21] LABS: Eosinophils Percent Auto 0.1 % (0-4); Hematocrit 32.1 % (37.0-47.0); Hemoglobin 11.7 g/dl (12.0-16.0); Imm Gran Abs Auto 0.02 X10*3/uL (0.00-0.03); Imm Gran Pct Auto 0.3 % (0.0-0.4); Lymphocytes Absolute Auto 0.2 X10*3/uL (1.2-4.9); Lymphocytes Percent Auto 2.9 % (20-40); Mean Corpuscular HGB Conc 36.4 g/dl (31.0-35.0); Mean Corpuscular Hemoglobin 31.8 pg (27.0-33.0); Mean Corpuscular Volume 87.2 fL (80.0-98.0); Mean Platelet Volume 9.5 fL (9.4-12.3); Monocytes Absolute Auto 0.5 X10*3/uL (0.1-1.2); Monocytes Percent Auto 6.8 % (2-11); Neutrophils Absolute Auto 6.6 x10*3/uL (2.0-8.3); Neutrophils Percent Auto 89.9 % (45-73); Platelet Count 138 X10*3/uL (160-400); Red Blood Count 3.68 X10*6/uL (4.20-5.50); Red Cell Distribution Width 17.3 % (11.0-16.0); White Blood Count 7.3 X10*3/uL (4.8-10.8)
[2021-05-19] MEDS: 0.9 % Sodium Chloride 1,000 ML 999 ML IV (19:21)
[2021-05-19] MEDS: LORazepam 1 MG TABLET PO (19:21)
[2021-05-19] MEDS: Buprenorphine/Naloxone 4/1 mg FILM 1 FILM SUBLINGUAL (19:21)
--- NOTE | 2021-05-19 19:22 | PC.NURSE ---
patient medicated per order, will call pharmacy for missing med
--- NOTE | 2021-05-19 19:22 | PC.NURSE ---
in presence of this nurse, patient stated I hate my life, I wish it was just over
[2021-05-19 19:33] LABS: Ethanol 356 mg/dL
[2021-05-19 19:37] LABS: Anion Gap 20 (12-20); Blood Urea Nitrogen 7 mg/dL (9-16); Calcium 8.3 mg/dL (8.4-10.2); Carbon Dioxide 24 mmol/L (22-29); Chloride 82 mmol/L (96-108); Creatinine Clr Calc Pharmacy 123.8; Estimated Glomerular Filt Rate > 60; Glucose Random 135 mg/dL (60-115); Lipase 33 U/L (8-78); Potassium 3.9 mmol/L (3.3-5.1); Sodium 122 mmol/L (135-145)
--- NOTE | 2021-05-19 19:43 | PC.NURSE ---
IV place left AC, labs drawn by tech.
--- NOTE | 2021-05-19 20:07 | PC.NURSE ---
call from [facility] wanting to set up pt with bed for after discharge from ED - has been calling to set up rehab placement. statistical secretary informed rehab that pt will be staying tonight and to call for update tomorrow. no other information provided to rehab. fax #: [phone]
--- NOTE | 2021-05-19 20:12 | PC.NURSE ---
pharmacy called on nystatin.
[2021-05-19] MEDS: PHENobarbitaL sodium 130 MG/ML VIAL 209 MG IM (20:28)
[2021-05-19 20:31] VITALS: BP 128/81; PULSE 96
[2021-05-19 20:33] VITALS: BP 106/71; PULSE 82
[2021-05-19 20:39] LABS: Magnesium 1.9 mg/dL (1.6-2.6)
--- NOTE | 2021-05-19 20:54 | PC.NURSE ---
first bag of ivf running slowly, will start second upon the first finishing
[2021-05-19 21:00] VITALS: BP 106/71; PULSE 104; RESP 18; O2SAT 95
--- NOTE | 2021-05-19 21:19 | PC.NURSE ---
pt sleeping, vss, will continue to monitor.
[2021-05-19] MEDS: Nystatin Powder 15 GM BOTTLE 1 APPL TOPICAL (21:21)
--- NOTE | 2021-05-19 21:23 | PC.NURSE ---
nystatin powder applied to groin area.
--- NOTE | 2021-05-19 21:51 | P.HPHOSP_ITS ---
History of Present Illness Date of Service: 05/19/21 Chief Complaint: alcohol abuse This is a 50-year-old female with history of opioid use disorder on Suboxone who presents to the hospital after been drinking for 7 days. Patient reports that her threatened to call 911 and therefore she decided to come to the hospital to seek help. She reports that for the past 7 days she has not been eating anything except drinking alcohol. She has also missed her Suboxone for the past week and therefore has daily diarrhea. She reports generalized weakness, fatigue, but otherwise has no chest pain, no shortness of breath, no palpitations, no nausea or vomiting, no urinary symptoms and no lower extremity edema. Patient reports her last drink was 3 hours prior to presentation to the hospital, she reports history of severe DTs. She has no numbness tingling, no weakness in upper or lower extremities. No headache or change in vision. On arrival to the ED patient found to have a heart rate of 104 otherwise hemodynamically stable, Labs are significant for WBC count of 7.3, hemoglobin of 11.7, hematocrit 32.1, platelet count of 138, sodium of 122, potassium of 3.9, chloride level of 82, BUN of 7, UA positive for leukocyte Estrace and WBC, COVID-19 negative, alcohol level of 356. Serum osmolality of 352, urine sodium less than 20, urine osmolality of 716 Nephrology consulted, patient given fluids, and will be started on 100 cc an hour of NS per Nephrology recommendation Patient started on phenobarb protocol and will be admitted for further management Review of Systems Review of Systems: Yes all other systems are reviewed and are negative [facility] Medical History (Updated 05/20/21 @ 06:56 by Teresa Malone MD) Alcohol abuse Opioid use disorder Family History (Updated 05/20/21 @ 06:56 by Teresa Malone MD) Father Lung cancer Surgical History (Updated 05/19/21 @ 19:53 by Darwin Day) History of gastric surgery Social History Alcohol intake: current Alcohol intake frequency: 3 or more drinks per day Patient Tobacco Use Status: Tobacco use Unknown Use of substances other than those prescribed or required for medical reasons: Unknown Advance Directives: No Advance Directives Information Provided: Yes Meds Allergies Allergy/AdvReac Type Severity Reaction Status Date / Time No Known Allergies Allergy Unverified 12/22/19 16:20 Active Medications: Current Medications Acetaminophen (Acetaminophen 325 Mg Tablet) 650 mg PO Q6H PRN PRN Reason: Pain, Mild (Pain Scale 1-3) Docusate Sodium (Docusate Sodium 100 Mg Capsule) 100 mg PO BID [facility] Enoxaparin Sodium (Enoxaparin Sodium 40 Mg/0.4 Ml Syringe) 40 mg SUBCUT Q24H [facility] Folic Acid (Folic Acid 1 Mg Tablet) 1 mg PO DAILY [facility] Sodium Chloride (Ns) 1,000 mls @ 100 mls/hr IV .Q10H ONE Stop: 05/20/21 06:03 Sodium Chloride (Ns) 1,000 mls @ 100 mls/hr IVCONT .Q10H [facility] Medication (No Benzodiazepines) 1 each MISCELLANE DAILY [facility] Phenobarbital (Phenobarbital 15 Mg Tablet) 45 mg PO BID [facility] Stop: 05/21/21 21:01 Phenobarbital (Phenobarbital 30 Mg Tablet) 30 mg PO BID [facility] Stop: 05/23/21 21:01 Phenobarbital (Phenobarbital 15 Mg Tablet) 15 mg PO DAILY [facility] Stop: 05/25/21 09:01 Phenobarbital Sodium (Phenobarbital Sodium 130 Mg/Ml Vial) 157 mg IM 0000,0300 [facility] Stop: 05/20/21 03:01 Sodium Chloride (0.9 % Sodium Chloride Flush 3 Ml Syringe) 3 ml IVFLUSH QSHIFT [facility] Thiamine HCl (Thiamine Hcl 100 Mg Tablet) 100 mg PO DAILY [facility] Home Medications Medication Instructions Recorded Confirmed Last Taken Type buprenorphine 2 mg-naloxone 0.5 mg 1 strip SUBLINGUAL DAILY 01/02/21 01/02/21 Unknown History sublingual film duloxetine 30 mg capsule,delayed 30 mg PO DAILY 01/02/21 01/02/21 Unknown History release Physical Exam Vital Signs and Narrative: Vital Signs: Last Vital Signs Temp 98.3 F 05/19/21 18: Pulse 104 H 05/19/21 21:00 Resp 18 05/19/21 21:00 BP 106/71 05/19/21 21:00 Pulse Ox 95 05/19/21 21:00 BMI result Body Mass Index 33.3 Const: Other: disheveled appears dehydrated General: cooperative and no acute distress Orientation/consciousness: patient oriented x3 Eyes: General: appearance normal, both eyes and all related structures Pupils: Equal, round and reactive pupils present Resp: Effort & Inspection: normal respiratory effort Auscultation: clear to auscultation bilaterally Cardio: Rate: regular rate Rhythm: regular rhythm GI: Palpation (GI): Soft to palpation Auscultation: normal bowel sounds Skin: General skin exam: no rashes or lesions noted Neuro: General: patient oriented x3 Cranial nerves: Yes Equal, round and reactive pupils present Cognition (Neuro): normal cognition Extrem: General: Yes normal to inspection and Yes no pedal edema Results Labs CBC and Chem 7: 05/19/21 19:15 05/20/21 01:44 Labs: Laboratory Results - last 24 hr 05/19/21 05/19/21 05/19/21 19:15 19:15 19:15 MCV 87.2 MCH 31.8 MCHC 36.4 H RDW 17.3 H Plt Count 138 L MPV 9.5 Immature Gran % (Auto) 0.3 Neut % (Auto) 89.9 H Lymph % (Auto) 2.9 L [place] % (Auto) 6.8 Eos % (Auto) 0.1 Baso % (Auto) 0.0 Lymph # (Auto) 0.2 L [place] # (Auto) 0.5 Eos # (Auto) 0.0 Baso # (Auto) 0.0 Abs Immat Gran (auto) 0.02 Absolute Neuts (auto) 6.6 Absolute Nucleated RBC 0.000 Nucleated RBC % (auto) 0.0 Anion Gap 20 Estim Creat Clear Calc 123.8 Estimated GFR > 60 Random Glucose 135 H Calcium 8.3 L Magnesium 1.9 Lipase 33 Ethyl Alcohol 356 H* Imaging Radiologist's Impressions: Impressions Knee X-Ray 05/19/21 19:40 IMPRESSION: No acute osseous abnormality of either knee. Bilateral total knee arthroplasties with patellar resurfacing. Possible small suprapatellar left knee joint effusion. There is lucency anterior to the tibial components of both knee prostheses, more likely focal osteopenia than periprosthetic lucency to suggest loosening or hardware failure. No prior studies available for comparison. Comparison with postoperative studies would be helpful. Knee X-Ray 05/19/21 19:40 IMPRESSION: No acute osseous abnormality of either knee. Bilateral total knee arthroplasties with patellar resurfacing. Possible small suprapatellar left knee joint effusion. There is lucency anterior to the tibial components of both knee prostheses, more likely focal osteopenia than periprosthetic lucency to suggest loosening or hardware failure. No prior studies available for comparison. Comparison with postoperative studies would be helpful. Assessment and Plan (1) Acute hyponatremia: Status: Acute (2) Alcoholic intoxication: Status: Acute (3) Alcohol withdrawal syndrome: Status: Acute (4) UTI (urinary tract infection): Status: Acute Plan 50-year-old female with past medical history of alcohol abuse who presents to the hospital with complaints of been drinking for the past 1 week and not eating or drinking anything else found to have severe hyponatremia # acute severe hyponatremia - although likely secondary to alcohol abuse, dehydration, low oral intake, her urine lytes as well as urine osmolality and plasma osmolality point to hypertonic hyponatremia with elevated serum osmolality -nephrology consulted patient started on NS 100 cc/hour, - will follow BMP q.4 hours # alcohol intoxication with high potential of alcohol withdrawal - has history of DTs - started on phenobarb protocol - thiamine and folic acid - IV fluids # UTI - positive UA - started on ceftriaxone - follow cultures # diarrhea - likely withdrawal from Suboxone, has not taking her Suboxone for 1 week - will resume DVT prophylaxis: Lovenox Quality Stroke Does the patient have a stroke diagnosis?: No VTE Prior VTE?: No VTE Risk Level:: Medical - moderate - high VTE Device Contraindication: Treatment Not Indicated VTE Drug Contraindication: N/A - Med Ordered
[2021-05-19] MEDS: 0.9 % Sodium Chloride 1,000 ML 100 ML IV (22:26)
--- NOTE | 2021-05-19 22:28 | PC.NURSE ---
patient sleeping, wakes to verbal stimulus, groundwater monitoring technician nsr with pvcs, pts o2 sat 90% placed on 2L O2 nc increased to 95% on the O2- vitals otherwise stable, 22g iv inserted to rt hand for additional fluids as rt ac iv is slow running, call hazel within reach, 1:1 sitter at bedside, will continue to monitor.
[2021-05-19] MEDS: Enoxaparin Sodium 40 MG/0.4 ML SYRINGE SUBCUT (22:34)
--- NOTE | 2021-05-19 22:50 | PC.NURSE ---
spoke w pts , reiterated plan for pt to go to [facility] for detox once discharged from [facility]. updated on pt admission.
[2021-05-19 23:13] LABS: Osmolality, Serum 352 mosm/kg (281-305)
[2021-05-20 00:18] LABS: Anion Gap 15 (12-20); Blood Urea Nitrogen 7 mg/dL (9-16); Calcium 7.8 mg/dL (8.4-10.2); Carbon Dioxide 25 mmol/L (22-29); Chloride 87 mmol/L (96-108); Creatinine Clr Calc Pharmacy 136.3; Estimated Glomerular Filt Rate > 60; Glucose Random 131 mg/dL (60-115); Potassium 3.3 mmol/L (3.3-5.1); Sodium 124 mmol/L (135-145)
[2021-05-20] MEDS: 0.9 % Sodium Chloride 1,000 ML 100 ML IVCONT ×2 (00:53→07:29)
[2021-05-20 01:13] LABS: COVID-19 Test Negative (Negative)
[2021-05-20 02:14] LABS: Anion Gap 16 (12-20); Blood Urea Nitrogen 8 mg/dL (9-16); Calcium 7.4 mg/dL (8.4-10.2); Carbon Dioxide 23 mmol/L (22-29); Chloride 88 mmol/L (96-108); Creatinine Clr Calc Pharmacy 139.1; Estimated Glomerular Filt Rate > 60; Glucose Random 123 mg/dL (60-115); Sodium 124 mmol/L (135-145)
[2021-05-20] MEDS: PHENobarbitaL sodium 130 MG/ML VIAL 157 MG IM ×2 (02:55→07:29)
[2021-05-20 03:29] LABS: Appearance Urine HAZY; Color Urine YELLOW; Glucose Urine UA NEG (NEG); Leukocyte Esterase Urine 1+ (NEG); Nitrite Urine NEG (NEG); UACC Culture Trigger YES; Urine Blood 1+ (NEG); Urine Ketones NEG (NEG); Urine Protein TRACE MG/DL (NEG-TRACE)
[2021-05-20 03:37] LABS: Bacteria Urine 2+ /LPF; Mucus Urine 2+ /LPF; Squamous Epithelial Cell Urine 2+ /LPF
[2021-05-20 03:42] LABS: Potassium Urine Random 41.4 mmol/L; Sodium Urine Random < 20.0 mmol/L
[2021-05-20 03:44] LABS: Chloride Urine Random < 20.0 mmol/L; Osmolality Urine 716 mosm/kg (373-1093)
[2021-05-20 06:51] LABS: MANUAL DIFF FLAG NO
[2021-05-20 06:59] LABS: Basophils Percent Auto 0.1 % (0-2); Hematocrit 27.6 % (37.0-47.0); Hemoglobin 9.9 g/dl (12.0-16.0); Imm Gran Abs Auto 0.02 X10*3/uL (0.00-0.03); Imm Gran Pct Auto 0.3 % (0.0-0.4); Lymphocytes Absolute Auto 0.3 X10*3/uL (1.2-4.9); Lymphocytes Percent Auto 4.5 % (20-40); Mean Corpuscular HGB Conc 35.9 g/dl (31.0-35.0); Mean Corpuscular Hemoglobin 31.3 pg (27.0-33.0); Mean Corpuscular Volume 87.3 fL (80.0-98.0); Mean Platelet Volume 9.5 fL (9.4-12.3); Monocytes Absolute Auto 0.5 X10*3/uL (0.1-1.2); Monocytes Percent Auto 7.3 % (2-11); Neutrophils Absolute Auto 6.5 x10*3/uL (2.0-8.3); Neutrophils Percent Auto 87.8 % (45-73); Platelet Count 114 X10*3/uL (160-400); Red Blood Count 3.16 X10*6/uL (4.20-5.50); Red Cell Distribution Width 17.2 % (11.0-16.0); White Blood Count 7.4 X10*3/uL (4.8-10.8)
[2021-05-20 07:12] LABS: Anion Gap 17 (12-20); Blood Urea Nitrogen 7 mg/dL (9-16); Calcium 7.3 mg/dL (8.4-10.2); Carbon Dioxide 20 mmol/L (22-29); Chloride 88 mmol/L (96-108); Estimated Glomerular Filt Rate > 60; Glucose Random 113 mg/dL (60-115); Potassium 3.1 mmol/L (3.3-5.1); Sodium 122 mmol/L (135-145)
[2021-05-20 07:26] VITALS: BP 127/65; PULSE 101; RESP 12; TEMP 36.7; O2SAT 99
[2021-05-20] MEDS: Thiamine HCL 100 MG TABLET PO (07:28)
[2021-05-20] MEDS: Folic Acid 1 MG TABLET PO (07:28)
[2021-05-20] MEDS: Potassium Chloride Packet 20 MEQ PACKET 40 MEQ PO ×2 (07:29→10:05)
[2021-05-20] MEDS: cefTRIAXone sodium 1 GM in 0.9 % Sodium Chloride 50 ML IV (07:30)
[2021-05-20] MEDS: Omeprazole 40 MG CAPSULE.DR PO (07:30)
--- NOTE | 2021-05-20 08:04 | P.PNIM_ITS ---
Subjective Subjective Date of Service: 05/20/21 Interval History: hyponatremia , knee pains , impending alcohl withdrawal Review of Systems Denies any chest pain or shortness of breath abdominal pain or fever or chills She had decreased p.o. intake for few days as per the patient. She also has knee pains unclear how long Physical Exam Vital Signs: Vital Signs: Last Vital Signs Temp 98.0 F 05/20/21 07:26 Pulse 101 H 05/20/21 07:26 Resp 12 05/20/21 07:26 BP 127/65 05/20/21 07:26 Pulse Ox 99 05/20/21 07:26 BMI result Body Mass Index 33.3 Physical exam: Appearance: Alert.? Oriented X3.? not in distress.? mucosa dry. cvs: rrr, [id number] , no murmur res: clear to auscultation ,no rhonchii or wheezing abd: no rebound or guarding ,nt, bs present. ext pulses present , no cyanosis . Knees -can move but has pains , has b/l knee sx in the past/prothesis. neuro: axo3 , nonfocal. Objective Data Active Medications Acetaminophen (Acetaminophen 325 Mg Tablet) 650 mg PO Q6H PRN PRN Reason: Pain, Mild (Pain Scale 1-3) Docusate Sodium (Docusate Sodium 100 Mg Capsule) 100 mg PO BID [facility] Last Admin: 05/20/21 07:28 Dose: Not Given Documented by: JEAN PAUL Non-Admin Reason: Patient Refused Enoxaparin Sodium (Enoxaparin Sodium 40 Mg/0.4 Ml Syringe) 40 mg SUBCUT Q24H [facility] Last Admin: 05/19/21 22:34 Dose: 40 mg Documented by: BRADY Folic Acid (Folic Acid 1 Mg Tablet) 1 mg PO DAILY [facility] Last Admin: 05/20/21 07:28 Dose: 1 mg Documented by: JEAN PAUL Sodium Chloride (Ns) 1,000 mls @ 100 mls/hr IVCONT .Q10H [facility] Last Admin: 05/20/21 07:29 Dose: 100 mls/hr Documented by: JEAN PAUL Ceftriaxone Sodium 1 gm/ (Sodium Chloride) 50 mls @ 100 mls/hr IV Q24H [facility] Last Admin: 05/20/21 07:30 Dose: 100 mls/hr Documented by: JEAN PAUL Medication (No Benzodiazepines) 1 each MISCELLANE DAILY [facility] Omeprazole (Omeprazole 40 Mg Capsule.Dr) 40 mg PO DAILY@0630 [facility] Last Admin: 05/20/21 07:30 Dose: 40 mg Documented by: JEAN PAUL Phenobarbital (Phenobarbital 15 Mg Tablet) 45 mg PO BID [facility] Stop: 05/22/21 09:01 Phenobarbital (Phenobarbital 15 Mg Tablet) 15 mg PO DAILY [facility] Stop: 05/26/21 09:01 Phenobarbital (Phenobarbital 30 Mg Tablet) 30 mg PO BID [facility] Stop: 05/24/21 09:01 Potassium Chloride (Potassium Chloride Packet 20 Meq Packet) 40 meq PO Q2H [facility] Stop: 05/20/21 09:01 Last Admin: 05/20/21 07:29 Dose: 40 meq Documented by: JEAN PAUL Sodium Chloride (0.9 % Sodium Chloride Flush 3 Ml Syringe) 3 ml IVFLUSH QSHIFT [facility] Last Admin: 05/20/21 07:30 Dose: Not Given Documented by: JEAN PAUL Non-Admin Reason: IV Running Thiamine HCl (Thiamine Hcl 100 Mg Tablet) 100 mg PO DAILY [facility] Last Admin: 05/20/21 07:28 Dose: 100 mg Documented by: JEAN PAUL Labs CBC & Chem 7: 05/20/21 06:34 05/20/21 08:25 Labs: Laboratory Results - last 24 hr 05/19/21 05/19/21 05/19/21 19:15 19:15 19:15 MCV 87.2 MCH 31.8 MCHC 36.4 H RDW 17.3 H Plt Count 138 L MPV 9.5 Immature Gran % (Auto) 0.3 Neut % (Auto) 89.9 H Lymph % (Auto) 2.9 L [place] % (Auto) 6.8 Eos % (Auto) 0.1 Baso % (Auto) 0.0 Lymph # (Auto) 0.2 L [place] # (Auto) 0.5 Eos # (Auto) 0.0 Baso # (Auto) 0.0 Abs Immat Gran (auto) 0.02 Absolute Neuts (auto) 6.6 Absolute Nucleated RBC 0.000 Nucleated RBC % (auto) 0.0 Anion Gap 20 Estim Creat Clear Calc 123.8 Estimated GFR > 60 Random Glucose 135 H Osmolality Calcium 8.3 L Magnesium 1.9 Lipase 33 Urine Color Urine Appearance Urine pH Ur Specific [place] Urine Protein Urine Glucose (UA) Urine Ketones Urine Blood Urine Nitrite Ur Leukocyte Esterase Urine RBC Urine WBC Ur Squamous Epith Cells Urine Bacteria Urine Mucus Urine Osmolality Ur Random Sodium Ur Random Potassium Ur Random Chloride Ethyl Alcohol 356 H* COVID-19 (DARON) COVID-19 Clin Com 05/19/21 05/19/21 05/20/21 19:18 23:46 00:54 MCV MCH MCHC RDW Plt Count MPV Immature Gran % (Auto) Neut % (Auto) Lymph % (Auto) [place] % (Auto) Eos % (Auto) Baso % (Auto) Lymph # (Auto) [place] # (Auto) Eos # (Auto) Baso # (Auto) Abs Immat Gran (auto) Absolute Neuts (auto) Absolute Nucleated RBC Nucleated RBC % (auto) Anion Gap 15 Estim Creat Clear Calc 136.3 Estimated GFR > 60 Random Glucose 131 H Osmolality 352 H Calcium 7.8 L D Magnesium Lipase Urine Color Urine Appearance Urine pH Ur Specific [place]ock Urine Protein Urine Glucose (UA) Urine Ketones Urine Blood Urine Nitrite Ur Leukocyte Esterase Urine RBC Urine WBC Ur Squamous Epith Cells Urine Bacteria Urine Mucus Urine Osmolality Ur Random Sodium Ur Random Potassium Ur Random Chloride Ethyl Alcohol COVID-19 ([facility]ON) Negative COVID-19 [employer] Com See Note 05/20/21 05/20/21 05/20/21 01:44 03:20 03:20 MCV MCH MCHC RDW Plt Count MPV Immature Gran % (Auto) Neut % (Auto) Lymph % (Auto) [place] % (Auto) Eos % (Auto) Baso % (Auto) Lymph # (Auto) [place] # (Auto) Eos # (Auto) Baso # (Auto) Abs Immat Gran (auto) Absolute Neuts (auto) Absolute Nucleated RBC Nucleated RBC % (auto) Anion Gap 16 Estim Creat Clear Calc 139.1 Estimated GFR > 60 Random Glucose 123 H Osmolality Calcium 7.4 L Magnesium Lipase Urine Color YELLOW Urine Appearance HAZY Urine pH 6.0 Ur Specific [place] 1.020 Urine Protein TRACE Urine Glucose (UA) NEG Urine Ketones NEG Urine Blood 1+ H Urine Nitrite NEG Ur Leukocyte Esterase 1+ H Urine RBC 1-4 Urine WBC 5-9 H Ur Squamous Epith Cells 2+ Urine Bacteria 2+ Urine Mucus 2+ Urine Osmolality Ur Random Sodium < 20.0 Ur Random Potassium 41.4 Ur Random Chloride < 20.0 Ethyl Alcohol COVID-19 ([facility]) COVID-19 [employer] Com 05/20/21 05/20/21 05/20/21 03:20 06:34 06:34 MCV 87.3 MCH 31.3 MCHC 35.9 H RDW 17.2 H Plt Count 114 L MPV 9.5 Immature Gran % (Auto) 0.3 Neut % (Auto) 87.8 H Lymph % (Auto) 4.5 L [place] % (Auto) 7.3 Eos % (Auto) 0.0 Baso % (Auto) 0.1 Lymph # (Auto) 0.3 L [place] # (Auto) 0.5 Eos # (Auto) 0.0 Baso # (Auto) 0.0 Abs Immat Gran (auto) 0.02 Absolute Neuts (auto) 6.5 Absolute Nucleated RBC 0.000 Nucleated RBC % (auto) 0.0 Anion Gap 17 Estim Creat Clear Calc 142.0 Estimated GFR > 60 Random Glucose 113 Osmolality Calcium 7.3 L Magnesium Lipase Urine Color Urine Appearance Urine pH Ur Specific [place]ock Urine Protein Urine Glucose (UA) Urine Ketones Urine Blood Urine Nitrite Ur Leukocyte Esterase Urine RBC Urine WBC Ur Squamous Epith Cells Urine Bacteria Urine Mucus Urine Osmolality 716 Ur Random Sodium Ur Random Potassium Ur Random Chloride Ethyl Alcohol COVID-19 ([facility]ON) COVID-19 ProspX Assessment and Plan (1) UTI (urinary tract infection): Status: Acute (2) Alcoholic intoxication: Status: Acute (3) Alcohol withdrawal syndrome: Status: Acute (4) Acute hyponatremia: Status: Acute Plan 50-year-old female with past medical history of alcohol abuse who presents to the hospital with complaints of been drinking for the past 1 week and not eating or drinking anything else found to have severe hyponatremia 1. acute severe hyponatremia - although likely secondary to alcohol abuse, dehydration, low oral intake, her urine lytes as well as urine osmolality and plasma osmolality point to hypertonic hyponatremia with elevated serum osmolality -nephrology consulted patient started on NS 100 cc/hour, - will follow BMP q.4 hours 2. alcohol intoxication with high potential of alcohol withdrawal - has history of DTs, mild tremers moniter ciwa scale on phenobarb protocol continue thiamine and folic acid, IV fluids 3. UTI - positive UA -? started on ceftriaxone - follow cultures 4. diarrhea: stool studies - likely withdrawal from Suboxone, has not taking her Suboxone for 1 week - will resume 5. knee pains: xrays -? hardware loosning, she is moving all extremities but knee pains and concerned about her knees. will check with ortho. DVT prophylaxis:? Lovenox Quality Stroke Does the patient have a stroke diagnosis?: No VTE Prior VTE?: No VTE Risk Level:: Medical - moderate - high VTE Device Contraindication: Treatment Not Indicated VTE Drug Contraindication: N/A - Med Ordered
--- NOTE | 2021-05-20 08:19 | PHA.MEDREC ---
Pharmacy Consult ? Medication Reconciliation Pharmacy has completed the medication reconciliation. Reviewed with patient
[2021-05-20 08:29] LABS: Osmolality, Serum 280 mosm/kg (281-305)
[2021-05-20 08:55] LABS: Alanine Aminotransferase 45 U/L (0-31); Alkaline Phosphatase 127 U/L (39-117); Aspartate Amino Transferase 93 U/L (5-31); Bilirubin Direct 0.5 mg/dL (0.0-0.5); Bilirubin Total 0.9 mg/dL (0.0-1.0); Total Protein 5.1 g/dL (6.5-8.0)
[2021-05-20 09:11] LABS: Anion Gap 16 (12-20); Blood Urea Nitrogen 8 mg/dL (9-16); Calcium 7.5 mg/dL (8.4-10.2); Carbon Dioxide 22 mmol/L (22-29); Chloride 89 mmol/L (96-108); Creatinine Clr Calc Pharmacy 136.3; Estimated Glomerular Filt Rate > 60; Glucose Random 124 mg/dL (60-115); Potassium 3.8 mmol/L (3.3-5.1); Sodium 123 mmol/L (135-145)
--- NOTE | 2021-05-20 09:35 | MHC.RECOVSUP ---
Recovery Support note: Patient is a 50 year old Nigerien speaking female who presented [place] [facility] under the influence of alcohol reporting multiple complaints. This entry writer met with patient to discuss alcohol use and Suboxone treatment. Patient reports her drinking has increased over the past month and that recently she has been drinking 2 large bottles of wine or a 12 pack a day. Patient also reports that when she drinks, she doesn't drink anything besides alcohol and she doesn't eat. Patient acknowledges the negative health effects of this pattern of use and reports a desire to stop drinking entirely. Patient reports she was going to go to [facility] for detox and that she is still interested in going after discharge to continue supporting her recovery. Patient reports she has been taking Suboxone for years however has not had any in about 1 week. Patient denies opiate use. Patient reports she was late to her appointment last week and missed the rescheduled appointment. Patient does not think she can continue with this prescriber and she is interested in transferring her care to the [facility]. Plan for patient to restart Suboxone 4/1mg daily. Recovery Support Team will schedule [facility] appointment for patient prior to discharge and patient will be provided with prescription to bridge her until that appointment. Recovery Support Team will also follow up with patient to discuss outpatient recovery supports that patient may benefit form. Discussed case with patient's RN and Recovery Support RN.
[2021-05-20] MEDS: Buprenorphine/Naloxone 4/1 mg FILM 1 FILM SUBLINGUAL (10:05)
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
[2021-05-20 13:48] LABS: Anion Gap 12 (12-20); Blood Urea Nitrogen 7 mg/dL (9-16); Calcium 7.7 mg/dL (8.4-10.2); Carbon Dioxide 24 mmol/L (22-29); Chloride 89 mmol/L (96-108); Creatinine Clr Calc Pharmacy 128.5; Estimated Glomerular Filt Rate > 60; Glucose Random 124 mg/dL (60-115); Potassium 4.1 mmol/L (3.3-5.1); Sodium 121 mmol/L (135-145)
[2021-05-20 14:46] VITALS: BP 147/74; PULSE 110; RESP 18; O2SAT 98
--- NOTE | 2021-05-20 15:15 | MHC.CM.PN ---
PT REPORTS SHE LIVES AT HOME WITH HER AND IS INDEPENDENT WITH CARE SHE DENIES USING DME OR HOME SERVICES PT WAS CONNECTED WITH A [facility] BUT PLANS TO TRANSFER TO THE [facility] PT REPORTS HER PCP IS BIANCA HERNANDEZ AND HER IS HER HCP, COPY REQUESTED. PT REPORTS SHE IS VACCINATED AGAINST COVID-19, SHE BELIEVES SHE RECEIVED MODERNA. PER RECOVERY SUPPORT TEAM PN, THEY ARE FOLLOWING PT AND WILL ASSIST WITH A [facility] APT AND OTHER REFERRALS. CM WILL FOLLOW FOR OTHER DC NEEDS
[2021-05-20 19:35] LABS: Anion Gap 11 (12-20); Blood Urea Nitrogen 5 mg/dL (9-16); Calcium 7.6 mg/dL (8.4-10.2); Carbon Dioxide 25 mmol/L (22-29); Chloride 89 mmol/L (96-108); Creatinine Clr Calc Pharmacy 123.8; Estimated Glomerular Filt Rate > 60; Glucose Random 142 mg/dL (60-115); Potassium 3.6 mmol/L (3.3-5.1); Sodium 121 mmol/L (135-145)
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
[2021-05-20] MEDS: PHENobarbitaL 15 MG TABLET 45 MG PO (21:42)
[2021-05-20 21:43] LABS: CDiff Gene PCR NEGATIVE (Negative)
[2021-05-20 21:47] LABS: Leukocytes Stool Qualitative NEGATIVE (NEGATIVE)
[2021-05-20] MEDS: Enoxaparin Sodium 40 MG/0.4 ML SYRINGE SUBCUT (21:51)
[2021-05-20] MEDS: Urea 15 GM POWDER PO (22:31)
[2021-05-20 22:39] LABS: Anion Gap 9 (12-20); Blood Urea Nitrogen 4 mg/dL (9-16); Calcium 7.6 mg/dL (8.4-10.2); Carbon Dioxide 25 mmol/L (22-29); Chloride 89 mmol/L (96-108); Creatinine Clr Calc Pharmacy 123.8; Estimated Glomerular Filt Rate > 60; Glucose Random 157 mg/dL (60-115); Potassium 3.4 mmol/L (3.3-5.1); Sodium 120 mmol/L (135-145)
[2021-05-20] MEDS: Sodium Chloride Tab 1 GM TABLET PO (23:00)
[2021-05-21 00:57] VITALS: BP 130/67; PULSE 96; RESP 16; O2SAT 100
[2021-05-21 02:43] LABS: Anion Gap 13 (12-20); Blood Urea Nitrogen 10 mg/dL (9-16); Carbon Dioxide 22 mmol/L (22-29); Chloride 90 mmol/L (96-108); Creatinine Clr Calc Pharmacy 123.8; Estimated Glomerular Filt Rate > 60; Glucose Random 142 mg/dL (60-115); Potassium 3.3 mmol/L (3.3-5.1); Sodium 122 mmol/L (135-145)
[2021-05-21] MEDS: Omeprazole 40 MG CAPSULE.DR PO (06:38)
[2021-05-21 07:33] LABS: Osmolality, Serum 258 mosm/kg (281-305)
[2021-05-21 07:34] LABS: Uric Acid 2.6 mg/dL (2.4-5.7)
[2021-05-21 07:44] LABS: Anion Gap 9 (12-20); Blood Urea Nitrogen 7 mg/dL (9-16); Calcium 7.9 mg/dL (8.4-10.2); Carbon Dioxide 27 mmol/L (22-29); Chloride 91 mmol/L (96-108); Creatinine Clr Calc Pharmacy 121.6; Estimated Glomerular Filt Rate > 60; Glucose Random 126 mg/dL (60-115); Potassium 3.2 mmol/L (3.3-5.1); Sodium 124 mmol/L (135-145)
[2021-05-21 07:50] LABS: Thyroid Stimulating Hormone 1.42 uIU/mL (0.32-4.0)
--- NOTE | 2021-05-21 07:57 | PM.EVENT ---
Event Note Date of Service: 05/21/21 Event Note: 50 yo female seen this morning for bilat knee pain, she c/o left knee pain s/p fall a few days ago. She denies fever, chills, redness, or swelling. she has been able to get up and ambulate, she is able to bend and extend the knee she states the knee has improved over the last 24 hours she had bilat tka done about 12 years ago at [facility] she does not f/u regularly there may be some signs of osteopenia on xray but not chronic signs of lucency around the component work on ROM and quad strength f.u with [facility] for routine appts
[2021-05-21] MEDS: Buprenorphine/Naloxone 4/1 mg FILM 1 FILM SUBLINGUAL (08:37)
[2021-05-21] MEDS: cefTRIAXone sodium 1 GM in 0.9 % Sodium Chloride 50 ML IV (08:37)
[2021-05-21] MEDS: Sodium Chloride Tab 1 GM TABLET PO (08:38)
[2021-05-21] MEDS: 0.9 % Sodium Chloride Flush 3 ML SYRINGE IVFLUSH ×2 (08:38→22:41)
[2021-05-21] MEDS: PHENobarbitaL 15 MG TABLET 45 MG PO ×2 (08:40→21:55)
[2021-05-21] MEDS: Docusate Sodium 100 MG CAPSULE PO (08:40)
[2021-05-21] MEDS: Ferrous Sulfate 324 MG TABLET.DR PO (08:40)
[2021-05-21] MEDS: Folic Acid 1 MG TABLET PO (08:41)
[2021-05-21] MEDS: Thiamine HCL 100 MG TABLET PO (08:41)
[2021-05-21] MEDS: Urea 15 GM POWDER PO ×2 (08:41→21:55)
[2021-05-21] MEDS: DULoxetine HCl 60 MG CAPSULE.DR PO (08:41)
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
--- NOTE | 2021-05-21 10:41 | PM.PNNEP ---
Subjective Subjective Date of Service: 05/22/21 Interval history: Events noted Not in distress Na levels noted Physical Exam Vital Signs: Vital Signs: Last Vital Signs Temp 98.0 F 05/20/21 07:26 Pulse 96 05/21/21 00:57 Resp 16 05/21/21 00:57 BP 130/67 05/21/21 00:57 Pulse Ox 100 05/21/21 00:57 BMI result Body Mass Index 33.3 Const: General: no acute distress Neck: Neck: Yes supple Resp: Effort & Inspection: no cough Auscultation: no rhonchi and no wheezes Cardio: Heart sounds: no gallops, no murmurs and no rubs GI: Palpation (GI): Soft to palpation Auscultation: normal bowel sounds Skin: General skin exam: dry skin Neuro: Motor exam (neuro): no asterixis Objective Data Labs CBC & Chem 7: 05/20/21 06:34 05/22/21 08:26 Labs: Laboratory Results - last 24 hr 05/20/21 05/20/21 05/20/21 13:07 18:42 20:46 Sodium 121 L 121 L Potassium 4.1 3.6 Chloride 89 L 89 L Carbon Dioxide 24 25 Anion Gap 12 11 L BUN 7 L 5 L Creatinine 0.53 0.55 Estim Creat Clear Calc 128.5 123.8 Estimated GFR > 60 > 60 Random Glucose 124 H 142 H Osmolality Uric Acid Calcium 7.7 L 7.6 L TSH Stool Leukocytes, Qual NEGATIVE C. difficile Tox B Gene 05/20/21 05/20/21 05/21/21 20:46 22:08 02:14 Sodium 120 L* 122 L Potassium 3.4 3.3 Chloride 89 L 90 L Carbon Dioxide 25 22 Anion Gap 9 L 13 BUN 4 L 10 D Creatinine 0.55 0.55 Estim Creat Clear Calc 123.8 123.8 Estimated GFR > 60 > 60 Random Glucose 157 H 142 H Osmolality Uric Acid Calcium 7.6 L 8.0 L TSH Stool Leukocytes, Qual C. difficile Tox B Gene NEGATIVE 05/21/21 05/21/21 05/21/21 06:48 06:48 06:48 Sodium 124 L Potassium 3.2 L Chloride 91 L Carbon Dioxide 27 Anion Gap 9 L BUN 7 L Creatinine 0.56 Estim Creat Clear Calc 121.6 Estimated GFR > 60 Random Glucose 126 H Osmolality 258 L Uric Acid 2.6 Calcium 7.9 L TSH 1.42 Stool Leukocytes, Qual C. difficile Tox B Gene Microbiology Microbiology Results: Microbiology 05/20/21 Unknown Urine clean catch - Urine nieves top Urine Culture - Final 05/20/21 20:46 Stool Stool Culture - Preliminary Normal so far. Procedures Date of Service Date of Service: 05/21/21 Assessment & Plan Assessment and plan (1) Acute hyponatremia: Status: Acute Plan Hyponatremia Currently has hypotonic hyponatremia At the time of admission, OSM waselevated due to alcohol Teagan of correction acceptable Keep on IV NS and urea powder STOP NaCL tabs- No indication for NaCl tabs Restrict PO Water intake Goal Na 130-135 over next 24 hours Check pNa q 4 hrs Time Spent With Patient Time: Total time spent is greater than 50% in coordination of care (as documented) at patient's floor/unit and/or counseling patient: Time with patient: 15 - 24 minutes Progress Note: Quality Stroke Does the patient have a stroke diagnosis?: No
[2021-05-21 11:47] LABS: Potassium Urine Random 12.2 mmol/L; Sodium Urine Random < 20.0 mmol/L
[2021-05-21 11:54] LABS: Osmolality Urine 333 mosm/kg (373-1093)
--- NOTE | 2021-05-21 12:26 | P.PNIM_ITS ---
Subjective Subjective Date of Service: 05/21/21 Interval History: F/u on alcohol related hyponaremia, weakness, ataxia, falls. She is doing much better, sodium level is steadily Physical Exam Vital Signs: Vital Signs: Last Vital Signs Temp 98.0 F 05/20/21 07:26 Pulse 96 05/21/21 00:57 Resp 16 05/21/21 00:57 BP 130/67 05/21/21 00:57 Pulse Ox 100 05/21/21 00:57 BMI result Body Mass Index 33.3 Const: Other: General: AO X 3, no acute distress Resp: CTA bilateral CVS: S1,S2,RRR GI: +BS, NT, no distention Skin: No rash, bruses on knees Neuro: motor grossly intact Psych: appropriate affect Objective Data Active Medications Acetaminophen (Acetaminophen 325 Mg Tablet) 650 mg PO Q6H PRN PRN Reason: Pain, Mild (Pain Scale 1-3) Buprenorphine/Naloxone (Buprenorphine/Naloxone 4/1 Mg Film) 1 film SUBLINGUAL DAILY [facility] Last Admin: 05/21/21 08:37 Dose: 1 film Documented by: DANIEL Docusate Sodium (Docusate Sodium 100 Mg Capsule) 100 mg PO BID [facility] Last Admin: 05/21/21 08:40 Dose: 100 mg Documented by: DANIEL Duloxetine HCl (Duloxetine Hcl 60 Mg Capsule.) 60 mg PO DAILY [facility] Last Admin: 05/21/21 08:41 Dose: 60 mg Documented by: DANIEL Enoxaparin Sodium (Enoxaparin Sodium 40 Mg/0.4 Ml Syringe) 40 mg SUBCUT Q24H [facility] Last Admin: 05/20/21 21:51 Dose: 40 mg Documented by: EKTA Ferrous Sulfate (Ferrous Sulfate 324 Mg Tablet.) 324 mg PO DAILY [facility] Last Admin: 05/21/21 08:40 Dose: 324 mg Documented by: DANIEL Folic Acid (Folic Acid 1 Mg Tablet) 1 mg PO DAILY [facility] Last Admin: 05/21/21 08:41 Dose: 1 mg Documented by: DANIEL Ceftriaxone Sodium 1 gm/ (Sodium Chloride) 50 mls @ 100 mls/hr IV Q24H [facility] Last Infusion: 05/21/21 09:37 Dose: 0 mls/hr Documented by: DANIEL Levofloxacin (Levofloxacin 750 Mg Tablet) 750 mg PO Q24H [facility] Medication (No Benzodiazepines) 1 each MISCELLANE DAILY [facility] Omeprazole (Omeprazole 40 Mg Capsule.) 40 mg PO DAILY@0630 [facility] Last Admin: 05/21/21 06:38 Dose: 40 mg Documented by: RENZO Phenobarbital (Phenobarbital 15 Mg Tablet) 45 mg PO BID [facility] Stop: 05/22/21 09:01 Last Admin: 05/21/21 08:40 Dose: 45 mg Documented by: DANIEL Phenobarbital (Phenobarbital 15 Mg Tablet) 15 mg PO DAILY [facility] Stop: 05/26/21 09:01 Phenobarbital (Phenobarbital 30 Mg Tablet) 30 mg PO BID [facility] Stop: 05/24/21 09:01 Sodium Chloride (0.9 % Sodium Chloride Flush 3 Ml Syringe) 3 ml IVFLUSH QSHIFT [facility] Last Admin: 05/21/21 08:38 Dose: 3 ml Documented by: DANIEL Thiamine HCl (Thiamine Hcl 100 Mg Tablet) 100 mg PO DAILY [facility] Last Admin: 05/21/21 08:41 Dose: 100 mg Documented by: DANIEL Urea (Urea 15 Gm Powder) 15 gm PO BID [facility] Last Admin: 05/21/21 08:41 Dose: 15 gm Documented by: DANIEL Labs CBC & Chem 7: 05/20/21 06:34 05/21/21 06:48 Labs: Laboratory Results - last 24 hr 05/20/21 05/20/21 05/20/21 13:07 18:42 20:46 Anion Gap 12 11 L Estim Creat Clear Calc 128.5 123.8 Estimated GFR > 60 > 60 Random Glucose 124 H 142 H Osmolality Uric Acid Calcium 7.7 L 7.6 L TSH Urine Osmolality Ur Random Sodium Ur Random Potassium Ur Random Chloride Stool Leukocytes, Qual NEGATIVE C. difficile Tox B Gene 05/20/21 05/20/21 05/21/21 20:46 22:08 02:14 Anion Gap 9 L 13 Estim Creat Clear Calc 123.8 123.8 Estimated GFR > 60 > 60 Random Glucose 157 H 142 H Osmolality Uric Acid Calcium 7.6 L 8.0 L TSH Urine Osmolality Ur Random Sodium Ur Random Potassium Ur Random Chloride Stool Leukocytes, Qual C. difficile Tox B Gene NEGATIVE 0205/21/21 05/21/21 06:48 06:48 06:48 Anion Gap 9 L Estim Creat Clear Calc 121.6 Estimated GFR > 60 Random Glucose 126 H Osmolality 258 L Uric Acid 2.6 Calcium 7.9 L TSH 1.42 Urine Osmolality Ur Random Sodium Ur Random Potassium Ur Random Chloride Stool Leukocytes, Qual C. difficile Tox B Gene 05/21/21 05/21/21 10:44 10:44 Anion Gap Estim Creat Clear Calc Estimated GFR Random Glucose Osmolality Uric Acid Calcium TSH Urine Osmolality 333 L Ur Random Sodium < 20.0 Ur Random Potassium 12.2 Ur Random Chloride 42.0 Stool Leukocytes, Qual C. difficile Tox B Gene Microbiology Microbiology Results: Microbiology 05/20/21 Unknown Urine Culture - Final Urine clean catch - Urine nieves top 05/20/21 20:46 Stool Culture - Preliminary Stool Normal so far. Assessment and Plan (1) UTI (urinary tract infection): Status: Acute (2) Alcoholic intoxication: Status: Acute (3) Alcohol withdrawal syndrome: Status: Acute (4) Acute hyponatremia: Status: Acute Plan 50-year-old female with past medical history of alcohol abuse who presents to the hospital with complaints of been drinking for the past 1 week and not eating or drinking anything else found to have severe hyponatremia 1. acute severe hyponatremia likely related to alcoholims Nephrology recommendation and remark Currently has hypotonic hyponatremia At the time of admission, OSM was elevated due to alcohol Rate of correction acceptable Keep on IV NS and urea powder STOP NaCL tabs- No indication for NaCl tabs Restrict PO Water intake Goal Na? 130-135 over next 24 hours Check pNa q 4 hrs 2. Alcoholism , At risk for alcohol withdrawal -Phenobarbital 3. UTI--Negative culture, Ceftriaxone for 3 days 4.Diarrhea: resolved, possibly rom suboxone withdrwal 5. knee pains: xrays -? hardware loosning--No loosening per ortho, to follow with [facility] ([facility]) DVT prophylaxis:? Lovenox Quality Stroke Does the patient have a stroke diagnosis?: No VTE Prior VTE?: No VTE Risk Level:: Medical - moderate - high VTE Device Contraindication: Treatment Not Indicated VTE Drug Contraindication: N/A - Med Ordered
--- NOTE | 2021-05-21 12:38 | HO.ADDICT_ITS ---
History of Present Illness Date of Service: 05/21/2021 Chief Complaint: Hyponatremia, alcohol abuse Reason for Consult: AUD --recovery support follow up Sources of Information: patient interviewed and chart reviewed HPI Narrative: Patient is 50 year old female currently medically admitted with hyponatermia and alcohol withdrawal. Patient was seen by Recovery support team yesterday 05/20, and initially goal was for ATS admission. Since etoh withdrawal is being managed currently with phenobarb, patient no longer a candidate for ATS admission. [facility] ([facility]) reached out to this play writer, as patient and had been working towards ATS admission--based on clinical update patient more appropriate for CSS referral. This play writer met with patient to discuss this option and patient declined CSS referral. Patient seen in room 6 ED overflow. She was awake, alert, pleasant. Patient presenting as hyperverbal, overly inclusive, tangential, and circumstantial. She was easily redirected though and would eventually answer questions. Reporting she is not interest in CSS becuase she has been in 3 30 day rehabs in the last year and she does not wish to be away again. Limited insight into severity of alcohol use and associated consequences. I have all the skills, I just need to stop drinking, that's all . Discussed medications for AUD-- not a candidate for naltrexone due to Suboxone t reatment. Reports negative side effects from Acamprosate (loose stools) and was prescribed disulfiram, but never took it due to her job and risk of reaction as she is frequently in contact with alcohol containing products. Patient reporting she has been on Subxone for several years. Currently on 4mg QD (previously on 24mg) Requesting assistance transferring to [facility] as she can no longer be seen by her previous provider due to missed appts. Past Psychiatric History: Denies any psychiatric treatment or admissions. Some trials on antidepressants and a medication that boosts them Review of Systems Constitutional: Reports headache(s) and Reports malaise Reports headache(s) Reports headache(s) Psychiatric: Reports anxiety Diagnostics Vital Signs (24Hr): Vital Signs - 24 hr 05/20/21 14:46 05/21/21 00:57 Pulse Rate 110 H 96 Respiratory Rate 18 16 Blood Pressure 147/74 H 130/67 Pulse Oximetry 98 100 BMI result Body Mass Index 33.3 Labs Results: 05/20/21 06:34 05/21/21 06:48 Labs: Laboratory Results - last 48 hr 05/19/21 05/19/21 05/19/21 19:15 19:15 19:15 WBC 7.3 RBC 3.68 L Hgb 11.7 L Hct 32.1 L MCV 87.2 MCH 31.8 MCHC 36.4 H RDW 17.3 H Plt Count 138 L MPV 9.5 Immature Gran % (Auto) 0.3 Neut % (Auto) 89.9 H Lymph % (Auto) 2.9 L Barren % (Auto) 6.8 Eos % (Auto) 0.1 Baso % (Auto) 0.0 Lymph # (Auto) 0.2 L Barren # (Auto) 0.5 Eos # (Auto) 0.0 Baso # (Auto) 0.0 Abs Immat Gran (auto) 0.02 Absolute Neuts (auto) 6.6 Absolute Nucleated RBC 0.000 Nucleated RBC % (auto) 0.0 Sodium 122 L Potassium 3.9 Chloride 82 L D Carbon Dioxide 24 Anion Gap 20 BUN 7 L Creatinine 0.55 Estim Creat Clear Calc 123.8 Estimated GFR > 60 Random Glucose 135 H Osmolality Uric Acid Calcium 8.3 L Magnesium 1.9 Total Bilirubin Direct Bilirubin AST ALT Alkaline Phosphatase Total Protein Albumin Lipase 33 TSH Urine Color Urine Appearance Urine pH Ur Specific [place] Urine Protein Urine Glucose (UA) Urine Ketones Urine Blood Urine Nitrite Ur Leukocyte Esterase Urine RBC Urine WBC Ur Squamous Epith Cells Urine Bacteria Urine Mucus Urine Osmolality Ur Random Sodium Ur Random Potassium Ur Random Chloride Stool Leukocytes, Qual Ethyl Alcohol 356 H* C. difficile Tox B Gene COVID-19 ([facility]) COVID-19 Clin [facility] 05/19/21 05/19/21 05/20/21 19:18 23:46 00:54 WBC RBC Hgb Hct MCV MCH MCHC RDW Plt Count MPV Immature Gran % (Auto) Neut % (Auto) Lymph % (Auto) Barren % (Auto) Eos % (Auto) Baso % (Auto) Lymph # (Auto) Barren # (Auto) Eos # (Auto) Baso # (Auto) Abs Immat Gran (auto) Absolute Neuts (auto) Absolute Nucleated RBC Nucleated RBC % (auto) Sodium 124 L Potassium 3.3 Chloride 87 L Carbon Dioxide 25 Anion Gap 15 BUN 7 L Creatinine 0.50 Estim Creat Clear Calc 136.3 Estimated GFR > 60 Random Glucose 131 H Osmolality 352 H Uric Acid Calcium 7.8 L D Magnesium Total Bilirubin Direct Bilirubin AST ALT Alkaline Phosphatase Total Protein Albumin Lipase TSH Urine Color Urine Appearance Urine pH Ur Specific [place] Urine Protein Urine Glucose (UA) Urine Ketones Urine Blood Urine Nitrite Ur Leukocyte Esterase Urine RBC Urine WBC Ur Squamous Epith Cells Urine Bacteria Urine Mucus Urine Osmolality Ur Random Sodium Ur Random Potassium Ur Random Chloride Stool Leukocytes, Qual Ethyl Alcohol C. difficile Tox B Gene COVID-19 ([facility]) Negative COVID-19 [facility] See Note 05/20/21 05/20/21 05/20/21 01:44 03:20 03:20 WBC RBC Hgb Hct MCV MCH MCHC RDW Plt Count MPV Immature Gran % (Auto) Neut % (Auto) Lymph % (Auto) Barren % (Auto) Eos % (Auto) Baso % (Auto) Lymph # (Auto) Barren # (Auto) Eos # (Auto) Baso # (Auto) Abs Immat Gran (auto) Absolute Neuts (auto) Absolute Nucleated RBC Nucleated RBC % (auto) Sodium 124 L Potassium 3.0 L Chloride 88 L Carbon Dioxide 23 Anion Gap 16 BUN 8 L Creatinine 0.49 L Estim Creat Clear Calc 139.1 Estimated GFR > 60 Random Glucose 123 H Osmolality Uric Acid Calcium 7.4 L Magnesium Total Bilirubin Direct Bilirubin AST ALT Alkaline Phosphatase Total Protein Albumin Lipase TSH Urine Color YELLOW Urine Appearance HAZY Urine pH 6.0 Ur Specific [place] 1.020 Urine Protein TRACE Urine Glucose (UA) NEG Urine Ketones NEG Urine Blood 1+ H Urine Nitrite NEG Ur Leukocyte Esterase 1+ H Urine RBC 1-4 Urine WBC 5-9 H Ur Squamous Epith Cells 2+ Urine Bacteria 2+ Urine Mucus 2+ Urine Osmolality Ur Random Sodium < 20.0 Ur Random Potassium 41.4 Ur Random Chloride < 20.0 Stool Leukocytes, Qual Ethyl Alcohol C. difficile Tox B Gene COVID-19 ([facility]) [facility] 05/20/21 05/20/21 05/20/21 03:20 06:34 06:34 WBC 7.4 RBC 3.16 L Hgb 9.9 L Hct 27.6 L MCV 87.3 MCH 31.3 MCHC 35.9 H RDW 17.2 H Plt Count 114 L MPV 9.5 Immature Gran % (Auto) 0.3 Neut % (Auto) 87.8 H Lymph % (Auto) 4.5 L Barren % (Auto) 7.3 Eos % (Auto) 0.0 Baso % (Auto) 0.1 Lymph # (Auto) 0.3 L Barren # (Auto) 0.5 Eos # (Auto) 0.0 Baso # (Auto) 0.0 Abs Immat Gran (auto) 0.02 Absolute Neuts (auto) 6.5 Absolute Nucleated RBC 0.000 Nucleated RBC % (auto) 0.0 Sodium 122 L Potassium 3.1 L Chloride 88 L Carbon Dioxide 20 L Anion Gap 17 BUN 7 L Creatinine 0.48 L Estim Creat Clear Calc 142.0 Estimated GFR > 60 Random Glucose 113 Osmolality Uric Acid Calcium 7.3 L Magnesium Total Bilirubin 0.9 Direct Bilirubin 0.5 AST 93 H ALT 45 H Alkaline Phosphatase 127 H D Total Protein 5.1 L D Albumin 3.0 L D Lipase TSH Urine Color Urine Appearance Urine pH Ur Specific [place] Urine Protein Urine Glucose (UA) Urine Ketones Urine Blood Urine Nitrite Ur Leukocyte Esterase Urine RBC Urine WBC Ur Squamous Epith Cells Urine Bacteria Urine Mucus Urine Osmolality 716 Ur Random Sodium Ur Random Potassium Ur Random Chloride Stool Leukocytes, Qual Ethyl Alcohol C. difficile Tox B Gene COVID-19 ([facility]) COVID-19 Clin Com 05/20/21 05/20/21 05/20/21 06:34 08:25 13:07 WBC RBC Hgb Hct MCV MCH MCHC RDW Plt Count MPV Immature Gran % (Auto) Neut % (Auto) Lymph % (Auto) Barren % (Auto) Eos % (Auto) Baso % (Auto) Lymph # (Auto) Barren # (Auto) Eos # (Auto) Baso # (Auto) Abs Immat Gran (auto) Absolute Neuts (auto) Absolute Nucleated RBC Nucleated RBC % (auto) Sodium 123 L 121 L Potassium 3.8 D 4.1 Chloride 89 L 89 L Carbon Dioxide 22 24 Anion Gap 16 12 BUN 8 L 7 L Creatinine 0.50 0.53 Estim Creat Clear Calc 136.3 128.5 Estimated GFR > 60 > 60 Random Glucose 124 H 124 H Osmolality 280 L Uric Acid Calcium 7.5 L 7.7 L Magnesium Total Bilirubin Direct Bilirubin AST ALT Alkaline Phosphatase Total Protein Albumin Lipase TSH Urine Color Urine Appearance Urine pH Ur Specific [place] Urine Protein Urine Glucose (UA) Urine Ketones Urine Blood Urine Nitrite Ur Leukocyte Esterase Urine RBC Urine WBC Ur Squamous Epith Cells Urine Bacteria Urine Mucus Urine Osmolality Ur Random Sodium Ur Random Potassium Ur Random Chloride Stool Leukocytes, Qual Ethyl Alcohol C. difficile Tox B Gene COVID-19 ([facility]) COVID-19 [facility] 05/20/21 05/20/21 05/20/21 18:42 20:46 20:46 WBC RBC Hgb Hct MCV MCH MCHC RDW Plt Count MPV Immature Gran % (Auto) Neut % (Auto) Lymph % (Auto) Barren % (Auto) Eos % (Auto) Baso % (Auto) Lymph # (Auto) Barren # (Auto) Eos # (Auto) Baso # (Auto) Abs Immat Gran (auto) Absolute Neuts (auto) Absolute Nucleated RBC Nucleated RBC % (auto) Sodium 121 L Potassium 3.6 Chloride 89 L Carbon Dioxide 25 Anion Gap 11 L BUN 5 L Creatinine 0.55 Estim Creat Clear Calc 123.8 Estimated GFR > 60 Random Glucose 142 H Osmolality Uric Acid Calcium 7.6 L Magnesium Total Bilirubin Direct Bilirubin AST ALT Alkaline Phosphatase Total Protein Albumin Lipase TSH Urine Color Urine Appearance Urine pH Ur Specific [place] Urine Protein Urine Glucose (UA) Urine Ketones Urine Blood Urine Nitrite Ur Leukocyte Esterase Urine RBC Urine WBC Ur Squamous Epith Cells Urine Bacteria Urine Mucus Urine Osmolality Ur Random Sodium Ur Random Potassium Ur Random Chloride Stool Leukocytes, Qual NEGATIVE Ethyl Alcohol C. difficile Tox B Gene NEGATIVE COVID-19 ([facility]) COVID-19 [employer] 05/20/21 05/21/21 05/21/21 22:08 02:14 06:48 WBC RBC Hgb Hct MCV MCH MCHC RDW Plt Count MPV Immature Gran % (Auto) Neut % (Auto) Lymph % (Auto) Barren % (Auto) Eos % (Auto) Baso % (Auto) Lymph # (Auto) Barren # (Auto) Eos # (Auto) Baso # (Auto) Abs Immat Gran (auto) Absolute Neuts (auto) Absolute Nucleated RBC Nucleated RBC % (auto) Sodium 120 L* 122 L 124 L Potassium 3.4 3.3 3.2 L Chloride 89 L 90 L 91 L Carbon Dioxide 25 22 27 Anion Gap 9 L 13 9 L BUN 4 L 10 D 7 L Creatinine 0.55 0.55 0.56 Estim Creat Clear Calc 123.8 123.8 121.6 Estimated GFR > 60 > 60 > 60 Random Glucose 157 H 142 H 126 H Osmolality Uric Acid Calcium 7.6 L 8.0 L 7.9 L Magnesium Total Bilirubin Direct Bilirubin AST ALT Alkaline Phosphatase Total Protein Albumin Lipase TSH 1.42 Urine Color Urine Appearance Urine pH Ur Specific [place] Urine Protein Urine Glucose (UA) Urine Ketones Urine Blood Urine Nitrite Ur Leukocyte Esterase Urine RBC Urine WBC Ur Squamous Epith Cells Urine Bacteria Urine Mucus Urine Osmolality Ur Random Sodium Ur Random Potassium Ur Random Chloride Stool Leukocytes, Qual Ethyl Alcohol C. difficile Tox B Gene COVID-19 ([facility]) COVID-19 Clin Com 05/21/21 05/21/21 05/21/21 06:48 06:48 10:44 WBC RBC Hgb Hct MCV MCH MCHC RDW Plt Count MPV Immature Gran % (Auto) Neut % (Auto) Lymph % (Auto) Barren % (Auto) Eos % (Auto) Baso % (Auto) Lymph # (Auto) Barren # (Auto) Eos # (Auto) Baso # (Auto) Abs Immat Gran (auto) Absolute Neuts (auto) Absolute Nucleated RBC Nucleated RBC % (auto) Sodium Potassium Chloride Carbon Dioxide Anion Gap BUN Creatinine Estim Creat Clear Calc Estimated GFR Random Glucose Osmolality 258 L Uric Acid 2.6 Calcium Magnesium Total Bilirubin Direct Bilirubin AST ALT Alkaline Phosphatase Total Protein Albumin Lipase TSH Urine Color Urine Appearance Urine pH Ur Specific [place] Urine Protein Urine Glucose (UA) Urine Ketones Urine Blood Urine Nitrite Ur Leukocyte Esterase Urine RBC Urine WBC Ur Squamous Epith Cells Urine Bacteria Urine Mucus Urine Osmolality Ur Random Sodium < 20.0 Ur Random Potassium 12.2 Ur Random Chloride 42.0 Stool Leukocytes, Qual Ethyl Alcohol C. difficile Tox B Gene COVID-19 ([facility]) COVID-19 Clin Com 05/21/21 10:44 WBC RBC Hgb Hct MCV MCH MCHC RDW Plt Count MPV Immature Gran % (Auto) Neut % (Auto) Lymph % (Auto) Barren % (Auto) Eos % (Auto) Baso % (Auto) Lymph # (Auto) Barren # (Auto) Eos # (Auto) Baso # (Auto) Abs Immat Gran (auto) Absolute Neuts (auto) Absolute Nucleated RBC Nucleated RBC % (auto) Sodium Potassium Chloride Carbon Dioxide Anion Gap BUN Creatinine Estim Creat Clear Calc Estimated GFR Random Glucose Osmolality Uric Acid Calcium Magnesium Total Bilirubin Direct Bilirubin AST ALT Alkaline Phosphatase Total Protein Albumin Lipase TSH Urine Color Urine Appearance Urine pH Ur Specific [place] Urine Protein Urine Glucose (UA) Urine Ketones Urine Blood Urine Nitrite Ur Leukocyte Esterase Urine RBC Urine WBC Ur Squamous Epith Cells Urine Bacteria Urine Mucus Urine Osmolality 333 L Ur Random Sodium Ur Random Potassium Ur Random Chloride Stool Leukocytes, Qual Ethyl Alcohol C. difficile Tox B Gene COVID-19 ([facility]) COVID-19 Clin Com Imaging Radiology Impressions: ITS Impressions Knee X-Ray 05/19/21 19:40 IMPRESSION: No acute osseous abnormality of either knee. Bilateral total knee arthroplasties with patellar resurfacing. Possible small suprapatellar left knee joint effusion. There is lucency anterior to the tibial components of both knee prostheses, more likely focal osteopenia than periprosthetic lucency to suggest loosening or hardware failure. No prior studies available for comparison. Comparison with postoperative studies would be helpful. Knee X-Ray 05/19/21 19:40 IMPRESSION: No acute osseous abnormality of either knee. Bilateral total knee arthroplasties with patellar resurfacing. Possible small suprapatellar left knee joint effusion. There is lucency anterior to the tibial components of both knee prostheses, more likely focal osteopenia than periprosthetic lucency to suggest loosening or hardware failure. No prior studies available for comparison. Comparison with postoperative studies would be helpful. Mental Status Exam Mental Status Exam Patient Appearance: Appropriate Patient Orientation: Person, Place, Time and Situation Level of Consciousness: Awake and Alert Patient Behavior: Talkative and Cooperative Mood Description: Relaxed Affect Description: Relaxed Patient Cognition Impaired: No Ability to Follow Directions: Good Speech Pattern: Clear, Excessive and Animated Thought Process: Distracted Thought Content: positive for Tangential Judgement: Fair Medications Medications Current Medications Acetaminophen (Acetaminophen 325 Mg Tablet) 650 mg PO Q6H PRN PRN Reason: Pain, Mild (Pain Scale 1-3) Buprenorphine/Naloxone (Buprenorphine/Naloxone 4/1 Mg Film) 1 film SUBLINGUAL DAILY [facility] Last Admin: 05/21/21 08:37 Dose: 1 film Documented by: Docusate Sodium (Docusate Sodium 100 Mg Capsule) 100 mg PO BID [facility] Last Admin: 05/21/21 08:40 Dose: 100 mg Documented by: Duloxetine HCl (Duloxetine Hcl 60 Mg Capsule.) 60 mg PO DAILY [facility] Last Admin: 05/21/21 08:41 Dose: 60 mg Documented by: Enoxaparin Sodium (Enoxaparin Sodium 40 Mg/0.4 Ml Syringe) 40 mg SUBCUT Q24H [facility] Last Admin: 05/20/21 21:51 Dose: 40 mg Documented by: Ferrous Sulfate (Ferrous Sulfate 324 Mg Tablet.) 324 mg PO DAILY [facility] Last Admin: 05/21/21 08:40 Dose: 324 mg Documented by: Folic Acid (Folic Acid 1 Mg Tablet) 1 mg PO DAILY [facility] Last Admin: 05/21/21 08:41 Dose: 1 mg Documented by: Ceftriaxone Sodium 1 gm/ (Sodium Chloride) 50 mls @ 100 mls/hr IV Q24H [facility] Last Infusion: 05/21/21 09:37 Dose: Infused Documented by: Levofloxacin (Levofloxacin 750 Mg Tablet) 750 mg PO Q24H [facility] Medication (No Benzodiazepines) 1 each MISCELLANE DAILY [facility] Omeprazole (Omeprazole 40 Mg Capsule.) 40 mg PO DAILY@0630 [facility] Last Admin: 05/21/21 06:38 Dose: 40 mg Documented by: Phenobarbital (Phenobarbital 15 Mg Tablet) 45 mg PO BID [facility] Stop: 05/22/21 09:01 Last Admin: 05/21/21 08:40 Dose: 45 mg Documented by: Phenobarbital (Phenobarbital 15 Mg Tablet) 15 mg PO DAILY [facility] Stop: 05/26/21 09:01 Phenobarbital (Phenobarbital 30 Mg Tablet) 30 mg PO BID [facility] Stop: 05/24/21 09:01 Sodium Chloride (0.9 % Sodium Chloride Flush 3 Ml Syringe) 3 ml IVFLUSH QSHIFT [facility] Last Admin: 05/21/21 08:38 Dose: 3 ml Documented by: Thiamine HCl (Thiamine Hcl 100 Mg Tablet) 100 mg PO DAILY [facility] Last Admin: 05/21/21 08:41 Dose: 100 mg Documented by: Urea (Urea 15 Gm Powder) 15 gm PO BID [facility] Last Admin: 05/21/21 08:41 Dose: 15 gm Documented by: Allergies Allergies Allergy/AdvReac Type Severity Reaction Status Date / Time No Known Allergies Allergy Unverified 12/22/19 16:20 Assessment & Plan Assessment & Plan (1) Alcohol use disorder, severe, dependence: Status: Acute Code(s): F10.20 - Alcohol dependence, uncomplicated Assessment and Plan: * provided patient resources regarding IOP programs as requested * risk reduction discussion * discussed with hospitalist (2) Opioid use disorder: Status: Acute Code(s): F11.90 - Opioid use, unspecified, uncomplicated Assessment and Plan: * continue suboxone * appt to be scheduled at [facility] next week. This play writer will send a bridge script once appt is scheduled I spent __50____ minutes with the patient and/or on the patient floor today, greater than?50% of which was spent counseling/coordinating care. PMFSH Past Medical History Medical History (Updated 05/21/21 @ 14:53 by Yazmin Mckinnon CNP) Alcohol abuse Opioid use disorder Family History Family History (Updated 05/20/21 @ 06:57 by Teresa Malone MD) Father Lung cancer Surgical History Surgical History (Updated 05/19/21 @ 19:53 by Darwin Day) History of gastric surgery Social History Social History Alcohol intake: current Alcohol intake frequency: 3 or more drinks per day Patient Tobacco Use Status: Tobacco use Unknown Use of substances other than those prescribed or required for medical reasons: Unknown Advance Directives: No Advance Directives Information Provided: Yes service: No Current occupational status: employed
[2021-05-21 14:45] LABS: Anion Gap 8 (12-20); Carbon Dioxide 30 mmol/L (22-29); Chloride 91 mmol/L (96-108); Potassium 3.2 mmol/L (3.3-5.1); Sodium 126 mmol/L (135-145)
[2021-05-21 19:58] VITALS: BP 121/72; PULSE 80; RESP 18; TEMP 36.6; O2SAT 99
[2021-05-21 22:39] VITALS: BP 130/69; PULSE 79; RESP 18; TEMP 36.6; O2SAT 100
[2021-05-21] MEDS: Acetaminophen 325 MG TABLET 650 MG PO (22:40)
[2021-05-21] MEDS: levoFLOXacin 750 MG TABLET PO (22:40)
[2021-05-21] MEDS: Enoxaparin Sodium 40 MG/0.4 ML SYRINGE SUBCUT (22:40)
[2021-05-22] VITALS (7 sets, daily range): BP systolic 99–150; BP diastolic 55–83; PULSE 79–89; RESP 16–19; TEMP 36.4–37.4; O2SAT 96–100
[2021-05-22] MEDS: Omeprazole 40 MG CAPSULE.DR PO (05:49)
[2021-05-22] MEDS: Loperamide HCl 2 MG CAPSULE PO (05:49)
[2021-05-22] MEDS: cefTRIAXone sodium 1 GM in 0.9 % Sodium Chloride 50 ML IV (06:06)
[2021-05-22] MEDS: Artificial Tears 15 ML DROPS 2 DROP EYE-BOTH (06:13)
[2021-05-22] MEDS: Buprenorphine/Naloxone 4/1 mg FILM 1 FILM SUBLINGUAL (07:55)
[2021-05-22] MEDS: Ferrous Sulfate 324 MG TABLET.DR PO (07:55)
[2021-05-22] MEDS: PHENobarbitaL 15 MG TABLET 45 MG PO (07:55)
[2021-05-22] MEDS: Thiamine HCL 100 MG TABLET PO (07:55)
[2021-05-22] MEDS: 0.9 % Sodium Chloride Flush 3 ML SYRINGE IVFLUSH ×3 (07:55→21:49)
[2021-05-22] MEDS: DULoxetine HCl 60 MG CAPSULE.DR PO (07:55)
[2021-05-22] MEDS: Folic Acid 1 MG TABLET PO (07:55)
[2021-05-22] MEDS: Urea 15 GM POWDER PO ×2 (07:56→21:49)
[2021-05-22 09:13] LABS: Anion Gap 10 (12-20); Carbon Dioxide 30 mmol/L (22-29); Chloride 92 mmol/L (96-108); Potassium 3.2 mmol/L (3.3-5.1); Sodium 129 mmol/L (135-145)
--- NOTE | 2021-05-22 09:37 | PM.PNNEP ---
Subjective Subjective Date of Service: 06/05/21 Interval history: Events noted Na is improving More alert Physical Exam Vital Signs: Vital Signs: Last Vital Signs Temp 98.8 F 05/22/21 07:43 Pulse 86 05/22/21 07:43 Resp 19 05/22/21 07:43 BP 150/83 H 05/22/21 07:43 Pulse Ox 100 05/22/21 07:43 BMI result Body Mass Index 33.3 Const: General: no acute distress Orientation/consciousness: oriented to person, oriented to place and oriented to time HENMT: Head: Yes normocephalic Eyes: General: appearance normal, both eyes and all related structures EOM: No Nystagmus present Neck: Neck: Yes supple Resp: Effort & Inspection: normal respiratory effort and no cough Auscultation: clear to auscultation bilaterally, no rhonchi and no wheezes Percussion: no dullness to percussion Cardio: Jugular venous distension: no JVD Palpation: no palpable S3 Rate: regular rate Heart sounds: no gallops, no murmurs and no rubs GI: Inspection: Yes normal to inspection Palpation (GI): Soft to palpation Auscultation: normal bowel sounds Skin: General skin exam: no rashes or lesions noted and dry skin Neuro: General: oriented to person, oriented to place and oriented to time Cranial nerves: No Nystagmus present Motor exam (neuro): no tremor noted and no asterixis Objective Data Labs CBC & Chem 7: 05/20/21 06:34 05/23/21 08:11 Labs: Laboratory Results - last 24 hr 05/21/21 05/21/21 05/21/21 10:44 10:44 13:47 Sodium 126 L Potassium 3.2 L Chloride 91 L Carbon Dioxide 30 H Anion Gap 8 L Urine Osmolality 333 L Ur Random Sodium < 20.0 Ur Random Potassium 12.2 Ur Random Chloride 42.0 05/22/21 08:26 Sodium 129 L Potassium 3.2 L Chloride 92 L Carbon Dioxide 30 H Anion Gap 10 L Urine Osmolality Ur Random Sodium Ur Random Potassium Ur Random Chloride Microbiology Microbiology Results: Microbiology 05/20/21 Unknown Urine clean catch - Urine nieves top Urine Culture - Final 05/20/21 20:46 Stool Stool Culture - Preliminary Normal so far. Procedures Date of Service Date of Service: 05/22/21 Assessment & Plan Assessment and plan (1) Acute hyponatremia: Status: Resolved Plan Hyponatremia Currently has hypotonic hyponatremia At the time of admission, OSM was elevated due to alcohol Rate of correction acceptable Continue urea powder for now Off NaCL tabs- No indication for NaCl tabs Restrict PO Water intake Goal Na 130-135 over next 24 hours Check pNa q 12 hrs Hypokalemia and Metabolic alkalosis Replace K orally Urine Cl of 42 suggestive of Chloride resistant Met Alkalosis- Watch BP Time Spent With Patient Time: Total time spent is greater than 50% in coordination of care (as documented) at patient's floor/unit and/or counseling patient: Time with patient: 15 - 24 minutes Progress Note: Quality Stroke Does the patient have a stroke diagnosis?: No
--- NOTE | 2021-05-22 09:58 | HO.PM.IMPN ---
Subjective Subjective Date of Service: 05/22/21 Interval History: F/u on alcohol related hyponaremia, weakness, ataxia, falls. She is doing much better, sodium is better, c/o diarrhea Review of Systems fever, no confusion, no seizure Physical Exam Vital Signs: Vital Signs: Last Vital Signs Temp 98.8 F 05/22/21 07:43 Pulse 86 05/22/21 07:43 Resp 19 05/22/21 07:43 BP 150/83 H 05/22/21 07:43 Pulse Ox 100 05/22/21 07:43 BMI result Body Mass Index 33.3 Const: Other: General: AO X 3, no acute distress Resp: CTA bilateral CVS: S1,S2,RRR GI: +BS, NT, no distention Skin: No rash, bruses on knees Neuro: motor grossly intact Psych: appropriate affect Objective Data Active Medications Acetaminophen (Acetaminophen 325 Mg Tablet) 650 mg PO Q6H PRN PRN Reason: Pain, Mild (Pain Scale 1-3) Last Admin: 05/21/21 22:40 Dose: 650 mg Documented by: VICNETE Artificial Tears (Artificial Tears 15 Ml Drops) 2 drop EYE-BOTH Q4H PRN PRN Reason: Dry Eyes Last Admin: 05/22/21 06:13 Dose: 2 drop Documented by: VICENTE Buprenorphine/Naloxone (Buprenorphine/Naloxone 4/1 Mg Film) 1 film SUBLINGUAL DAILY [facility] Last Admin: 05/22/21 07:55 Dose: 1 film Documented by: JAVIER Docusate Sodium (Docusate Sodium 100 Mg Capsule) 100 mg PO BID [facility] Last Admin: 05/22/21 07:57 Dose: Not Given Documented by: JAVIER Non-Admin Reason: Patient Refused Duloxetine HCl (Duloxetine Hcl 60 Mg Capsule.) 60 mg PO DAILY [facility] Last Admin: 05/22/21 07:55 Dose: 60 mg Documented by: JAVIER Enoxaparin Sodium (Enoxaparin Sodium 40 Mg/0.4 Ml Syringe) 40 mg SUBCUT Q24H [facility] Last Admin: 05/21/21 22:40 Dose: 40 mg Documented by: VICENTE Ferrous Sulfate (Ferrous Sulfate 324 Mg Tablet.) 324 mg PO DAILY [facility] Last Admin: 05/22/21 07:55 Dose: 324 mg Documented by: JAVIER Folic Acid (Folic Acid 1 Mg Tablet) 1 mg PO DAILY [facility] Last Admin: 05/22/21 07:55 Dose: 1 mg Documented by: JAVIER Ceftriaxone Sodium 1 gm/ (Sodium Chloride) 50 mls @ 100 mls/hr IV Q24H [facility] Last Infusion: 05/22/21 06:55 Dose: 0 mls/hr Documented by: VICENTE Levofloxacin (Levofloxacin 750 Mg Tablet) 750 mg PO Q24H [facility] Last Admin: 05/21/21 22:40 Dose: 750 mg Documented by: VICENTE Loperamide HCl (Loperamide Hcl 2 Mg Capsule) 2 mg PO Q8H PRN PRN Reason: Diarrhea Last Admin: 05/22/21 05:49 Dose: 2 mg Documented by: VICENTE Loperamide HCl (Loperamide Hcl 2 Mg Capsule) 6 mg PO Q6H PRN PRN Reason: Diarrhea Medication (No Benzodiazepines) 1 each MISCELLANE DAILY [facility] Omeprazole (Omeprazole 40 Mg Capsule.) 40 mg PO DAILY@0630 [facility] Last Admin: 05/22/21 05:49 Dose: 40 mg Documented by: VICENTE Phenobarbital (Phenobarbital 15 Mg Tablet) 15 mg PO DAILY [facility] Stop: 05/26/21 09:01 Phenobarbital (Phenobarbital 30 Mg Tablet) 30 mg PO BID [facility] Stop: 05/24/21 09:01 Sodium Chloride (0.9 % Sodium Chloride Flush 3 Ml Syringe) 3 ml IVFLUSH QSHIFT [facility] Last Admin: 05/22/21 07:55 Dose: 3 ml Documented by: JAVIER Thiamine HCl (Thiamine Hcl 100 Mg Tablet) 100 mg PO DAILY [facility] Last Admin: 05/22/21 07:55 Dose: 100 mg Documented by: JAVIER Urea (Urea 15 Gm Powder) 15 gm PO BID [facility] Last Admin: 05/22/21 07:56 Dose: 15 gm Documented by: JAVIER Labs CBC & Chem 7: 05/20/21 06:34 05/22/21 08:26 Labs: Laboratory Results - last 24 hr 05/21/21 05/21/21 05/21/21 10:44 10:44 13:47 Anion Gap 8 L Urine Osmolality 333 L Ur Random Sodium < 20.0 Ur Random Potassium 12.2 Ur Random Chloride 42.0 05/22/21 08:26 Anion Gap 10 L Urine Osmolality Ur Random Sodium Ur Random Potassium Ur Random Chloride Microbiology Microbiology Results: Microbiology 05/20/21 20:46 Stool Culture - Preliminary Stool Normal so far. 05/20/21 Unknown Urine Culture - Final Urine clean catch - Urine nieves top Assessment and Plan (1) UTI (urinary tract infection): Status: Acute (2) Alcoholic intoxication: Status: Acute (3) Alcohol withdrawal syndrome: Status: Acute (4) Acute hyponatremia: Status: Acute Plan 50-year-old female with past medical history of alcohol abuse who presents to the hospital with complaints of been drinking for the past 1 week and not eating or drinking anything else found to have severe hyponatremia 1. acute severe hyponatremia likely related to alcoholims--sodium is steadily rising @ 129 today. Continue fluid restriction and NS 2. Alcoholism , At risk for alcohol withdrawal -continue Phenobarbital 3. UTI--Negative culture, DC ceftriaxone after 3 days 4.Diarrhea: chronic, imodium 5. knee pains: xrays -? hardware loosning--No loosening per ortho, to follow with [facility] ([facility]) DVT prophylaxis:? Lovenox out of bed, pt eval Quality Stroke Does the patient have a stroke diagnosis?: No VTE Prior VTE?: No VTE Risk Level:: Medical - moderate - high VTE Device Contraindication: Treatment Not Indicated VTE Drug Contraindication: N/A - Med Ordered
[2021-05-22] MEDS: Loperamide HCl 2 MG CAPSULE 6 MG PO ×3 (10:20→21:50)
[2021-05-22] MEDS: Potassium Chloride Packet 20 MEQ PACKET 40 MEQ PO (10:21)
[2021-05-22] MEDS: Fluconazole 150 MG TABLET PO (10:50)
--- NOTE | 2021-05-22 13:54 | MHC.CLN ---
NUTRITION CONSULT FOR SKIN. NO PRESSURE INJURIES NOTED. POOR INTAKE X 7 DAYS PRIOR TO HOSPITALIZATION. REPORTS ONLY DRINKING ALCOHOL DURING THAT TIME. CURRENT INTAKE SINCE ADMISSION APPEARS GOOD AND GOOD APPETITE IS REPORTED BY PATIENT. REPORTS DIARRHEA. FLUID RESTRICTION DUE TO LOW SODIUM. HAD GASTRIC BYPASS SURGERY ABOUT 16-17 YEARS AGO. DOES NOT TAKE PROTEIN SHAKES/FOLLOW SPECIFIC DIET.
--- NOTE | 2021-05-22 15:11 | MHC.CM.PN ---
Addendum entered by Yadi Rosales RN 05/22/21 15:24: CM RECEIVED MESSAGE FROM RAKESH RIVERS W/PT'S INTAKE APPT AT [facility] FOR 05/29 AT 10:30AM. Original Note: EMR REVIEWED, PER HOSPITALIST PT SHOULD BE READY FOR D/C TOMORROW, RECOVERY TELEPHONE QUOTATION CLERK WILL SET PT UP W/[facility] APPT AND SCRIPT FOR SUBOXONE PRIOR TO D/C , RECOVERY TEAM HAS BEEN NOTIFIED OF ANTIC D/C TOMORROW, CM WILL CONT TO FOLLOW D/C NEEDS.
--- NOTE | 2021-05-22 17:18 | P.PNADD_ITS ---
Subjective Subjective Date of Service: 05/22/21 Reason For Visit: Hyponatremia, alcohol abuse Interim History: Patient seen in follow up less pressured and tangential tearful. Reviewed triggers and current supports with patient She identified that aside from her and mother she has not stable supports Reports that she had engaged with a recovery room nurse, but during her most recent recurrence she has not spoken with him. Would like to reconnect Review of Systems Medical Review of Systems: unchanged Mental Status Exam Mental Status Exam Patient Appearance: Appropriate Patient Orientation: Person, Place, Time and Situation Level of Consciousness: Awake and Alert Patient Behavior: Talkative and Cooperative Mood Description: Relaxed Affect Description: Relaxed Patient Cognition Impaired: No Ability to Follow Directions: Good Speech Pattern: Clear and Animated Thought Process: Rumination Thought Content: positive for Tangential Judgement: Fair Diagnostics Vital Signs (24Hr): Vital Signs - 24 hr 05/21/21 19:58 05/21/21 22:39 05/22/21 00:00 Temperature 98 F 97.8 F 97.7 F Pulse Rate 80 79 80 Respiratory Rate 18 18 18 Blood Pressure 121/72 130/69 99/55 L Pulse Oximetry 99 100 96 05/22/21 03:39 05/22/21 07:43 05/22/21 12:00 Temperature 98.4 F 98.8 F 98.0 F Pulse Rate 79 86 87 Respiratory Rate 18 19 18 Blood Pressure 131/66 150/83 H 148/81 H Pulse Oximetry 100 100 100 05/22/21 15:42 Temperature 99.4 F Pulse Rate 89 Respiratory Rate 16 Blood Pressure 119/59 L Pulse Oximetry 98 BMI result Body Mass Index 33.3 Labs Results: 05/20/21 06:34 05/22/21 08:26 Labs: Laboratory Results - last 48 hr 05/20/21 05/20/21 05/20/21 18:42 20:46 20:46 Sodium 121 L Potassium 3.6 Chloride 89 L Carbon Dioxide 25 Anion Gap 11 L BUN 5 L Creatinine 0.55 Estim Creat Clear Calc 123.8 Estimated GFR > 60 Random Glucose 142 H Osmolality Uric Acid Calcium 7.6 L TSH Urine Osmolality Ur Random Sodium Ur Random Potassium Ur Random Chloride Stool Leukocytes, Qual NEGATIVE C. difficile Tox B Gene NEGATIVE 05/20/21 05/21/21 05/21/21 22:08 02:14 06:48 Sodium 120 L* 122 L 124 L Potassium 3.4 3.3 3.2 L Chloride 89 L 90 L 91 L Carbon Dioxide 25 22 27 Anion Gap 9 L 13 9 L BUN 4 L 10 D 7 L Creatinine 0.55 0.55 0.56 Estim Creat Clear Calc 123.8 123.8 121.6 Estimated GFR > 60 > 60 > 60 Random Glucose 157 H 142 H 126 H Osmolality Uric Acid Calcium 7.6 L 8.0 L 7.9 L TSH 1.42 Urine Osmolality Ur Random Sodium Ur Random Potassium Ur Random Chloride Stool Leukocytes, Qual C. difficile Tox B Gene 05/21/21 05/21/21 05/21/21 06:48 06:48 10:44 Sodium Potassium Chloride Carbon Dioxide Anion Gap BUN Creatinine Estim Creat Clear Calc Estimated GFR Random Glucose Osmolality 258 L Uric Acid 2.6 Calcium TSH Urine Osmolality Ur Random Sodium < 20.0 Ur Random Potassium 12.2 Ur Random Chloride 42.0 Stool Leukocytes, Qual C. difficile Tox B Gene 05/21/21 05/21/21 05/22/21 10:44 13:47 08:26 Sodium 126 L 129 L Potassium 3.2 L 3.2 L Chloride 91 L 92 L Carbon Dioxide 30 H 30 H Anion Gap 8 L 10 L BUN Creatinine Estim Creat Clear Calc Estimated GFR Random Glucose Osmolality Uric Acid Calcium TSH Urine Osmolality 333 L Ur Random Sodium Ur Random Potassium Ur Random Chloride Stool Leukocytes, Qual C. difficile Tox B Gene Imaging Radiology Impressions: ITS Impressions Knee X-Ray 05/19/21 19:40 IMPRESSION: No acute osseous abnormality of either knee. Bilateral total knee arthroplasties with patellar resurfacing. Possible small suprapatellar left knee joint effusion. There is lucency anterior to the tibial components of both knee prostheses, more likely focal osteopenia than periprosthetic lucency to suggest loosening or hardware failure. No prior studies available for comparison. Comparison with postoperative studies would be helpful. Knee X-Ray 05/19/21 19:40 IMPRESSION: No acute osseous abnormality of either knee. Bilateral total knee arthroplasties with patellar resurfacing. Possible small suprapatellar left knee joint effusion. There is lucency anterior to the tibial components of both knee prostheses, more likely focal osteopenia than periprosthetic lucency to suggest loosening or hardware failure. No prior studies available for comparison. Comparison with postoperative studies would be helpful. Medications Medications Current Medications Acetaminophen (Acetaminophen 325 Mg Tablet) 650 mg PO Q6H PRN PRN Reason: Pain, Mild (Pain Scale 1-3) Last Admin: 05/21/21 22:40 Dose: 650 mg Documented by: Artificial Tears (Artificial Tears 15 Ml Drops) 2 drop EYE-BOTH Q4H PRN PRN Reason: Dry Eyes Last Admin: 05/22/21 06:13 Dose: 2 drop Documented by: Buprenorphine/Naloxone (Buprenorphine/Naloxone 4/1 Mg Film) 1 film SUBLINGUAL DAILY [facility] Last Admin: 05/22/21 07:55 Dose: 1 film Documented by: Docusate Sodium (Docusate Sodium 100 Mg Capsule) 100 mg PO BID [facility] Last Admin: 05/22/21 07:57 Dose: Not Given Documented by: Duloxetine HCl (Duloxetine Hcl 60 Mg Capsule.) 60 mg PO DAILY [facility] Last Admin: 05/22/21 07:55 Dose: 60 mg Documented by: Enoxaparin Sodium (Enoxaparin Sodium 40 Mg/0.4 Ml Syringe) 40 mg SUBCUT Q24H [facility] Last Admin: 05/21/21 22:40 Dose: 40 mg Documented by: Ferrous Sulfate (Ferrous Sulfate 324 Mg Tablet.) 324 mg PO DAILY [facility] Last Admin: 05/22/21 07:55 Dose: 324 mg Documented by: Folic Acid (Folic Acid 1 Mg Tablet) 1 mg PO DAILY [facility] Last Admin: 05/22/21 07:55 Dose: 1 mg Documented by: Ceftriaxone Sodium 1 gm/ (Sodium Chloride) 50 mls @ 100 mls/hr IV Q24H [facility] Last Infusion: 05/22/21 06:55 Dose: Infused Documented by: Levofloxacin (Levofloxacin 750 Mg Tablet) 750 mg PO Q24H [facility] Last Admin: 05/21/21 22:40 Dose: 750 mg Documented by: Loperamide HCl (Loperamide Hcl 2 Mg Capsule) 2 mg PO Q8H PRN PRN Reason: Diarrhea Last Admin: 05/22/21 05:49 Dose: 2 mg Documented by: Loperamide HCl (Loperamide Hcl 2 Mg Capsule) 6 mg PO Q6H PRN PRN Reason: Diarrhea Last Admin: 05/22/21 16:17 Dose: 6 mg Documented by: Medication (No Benzodiazepines) 1 each MISCELLANE DAILY [facility] Omeprazole (Omeprazole 40 Mg Capsule.) 40 mg PO DAILY@0630 [facility] Last Admin: 05/22/21 05:49 Dose: 40 mg Documented by: Phenobarbital (Phenobarbital 15 Mg Tablet) 15 mg PO DAILY [facility] Stop: 05/26/21 09:01 Phenobarbital (Phenobarbital 30 Mg Tablet) 30 mg PO BID [facility] Stop: 05/24/21 09:01 Sodium Chloride (0.9 % Sodium Chloride Flush 3 Ml Syringe) 3 ml IVFLUSH QSHIFT [facility] Last Admin: 05/22/21 16:17 Dose: 3 ml Documented by: Thiamine HCl (Thiamine Hcl 100 Mg Tablet) 100 mg PO DAILY [facility] Last Admin: 05/22/21 07:55 Dose: 100 mg Documented by: Urea (Urea 15 Gm Powder) 15 gm PO BID [facility] Last Admin: 05/22/21 07:56 Dose: 15 gm Documented by: Allergies Allergies Allergy/AdvReac Type Severity Reaction Status Date / Time No Known Allergies Allergy Unverified 12/22/19 16:20 Assessment & Plan Assessment & Plan (1) Alcohol use disorder, severe, dependence: Status: Acute Code(s): F10.20 - Alcohol dependence, uncomplicated Assessment and Plan: * will attempt to connect with patients recovery room nurse--she has his information at home * (2) Opioid use disorder: Status: Acute Code(s): F11.90 - Opioid use, unspecified, uncomplicated Assessment and Plan: * appt scheduled at [facility] 05/29 * this display card writer will send bridge script once discharged I spent ___30___ minutes with the patient and/or on the patient floor today, greater than?50% of which was spent counseling/coordinating care.
[2021-05-22] MEDS: Enoxaparin Sodium 40 MG/0.4 ML SYRINGE SUBCUT (21:48)
[2021-05-22] MEDS: PHENobarbitaL 30 MG TABLET PO (21:49)
[2021-05-22] MEDS: levoFLOXacin 750 MG TABLET PO (21:49)
[2021-05-23 03:31] VITALS: PULSE 94; RESP 18; TEMP 37.1; O2SAT 100
[2021-05-23] MEDS: Omeprazole 40 MG CAPSULE.DR PO (06:07)
[2021-05-23] MEDS: cefTRIAXone sodium 1 GM in 0.9 % Sodium Chloride 50 ML IV (06:07)
[2021-05-23] MEDS: Ferrous Sulfate 324 MG TABLET.DR PO (07:22)
[2021-05-23] MEDS: Buprenorphine/Naloxone 4/1 mg FILM 1 FILM SUBLINGUAL (07:23)
[2021-05-23] MEDS: PHENobarbitaL 30 MG TABLET PO (07:23)
[2021-05-23] MEDS: Urea 15 GM POWDER PO (07:23)
[2021-05-23] MEDS: Thiamine HCL 100 MG TABLET PO (07:23)
[2021-05-23] MEDS: DULoxetine HCl 60 MG CAPSULE.DR PO (07:23)
[2021-05-23] MEDS: Folic Acid 1 MG TABLET PO (07:23)
[2021-05-23] MEDS: 0.9 % Sodium Chloride Flush 3 ML SYRINGE IVFLUSH (07:24)
[2021-05-23 07:55] VITALS: BP 139/77; PULSE 86; RESP 17; TEMP 36.8; O2SAT 100
--- NOTE | 2021-05-23 08:17 | PM.CNOR ---
History of Present Illness HPI Consult date: 05/28/21 Chief complaint: Hyponatremia, alcohol abuse Narrative: 50-year-old female who was admitted to the medical service for hyponatremia and alcoholic intoxication. She states that she got to a point where she stopped eating and she began binge drinking therefore she was emergency department for evaluation. However at home during these episodes she did take a few falls and has some bruising and abrasions on her lower and upper extremities. She has knee replacements and is concerned that there is injury to those. She denies fever chills or instability in the knees. Review of Systems Review of Systems: Per HPI [facility] Past Medical History Medical History (Updated 05/31/21 @ 00:01 by Penny Ortega) Alcohol abuse Alcohol use disorder, severe, dependence Opioid use disorder Functional capacity: independent ambulation Family History Family History (Updated 05/20/21 @ 06:57 by Teresa Malone MD) Father Lung cancer Surgical History Surgical History (Updated 06/07/21 @ 11:11 by Bassam Gentile PA-C) History of gastric surgery Social History Social History Household Members: Spouse Housing: House Do you presently have visiting nurse or other home services: No Alcohol intake: current Alcohol intake frequency: 3 or more drinks per day Patient Tobacco Use Status: Former Tobacco user Quit Date: 05/07/21 Tobacco use type: Cigarette Years Smoked: 2 Second Hand Smoke Exposure: No service: No Current occupational status: employed Meds Allergies Allergy/AdvReac Type Severity Reaction Status Date / Time No Known Allergies Allergy Unverified 12/22/19 16:20 Active Medications: Current Medications Acetaminophen (Acetaminophen 325 Mg Tablet) 650 mg PO Q6H PRN PRN Reason: Pain, Mild (Pain Scale 1-3) Last Admin: 05/21/21 22:40 Dose: 650 mg Documented by: Artificial Tears (Artificial Tears 15 Ml Drops) 2 drop EYE-BOTH Q4H PRN PRN Reason: Dry Eyes Last Admin: 05/22/21 06:13 Dose: 2 drop Documented by: Buprenorphine/Naloxone (Buprenorphine/Naloxone 4/1 Mg Film) 1 film SUBLINGUAL DAILY [facility] Last Admin: 05/23/21 07:23 Dose: 1 film Documented by: Docusate Sodium (Docusate Sodium 100 Mg Capsule) 100 mg PO BID [facility] Last Admin: 05/23/21 07:23 Dose: Not Given Documented by: Duloxetine HCl (Duloxetine Hcl 60 Mg Capsule.) 60 mg PO DAILY [facility] Last Admin: 05/23/21 07:23 Dose: 60 mg Documented by: Enoxaparin Sodium (Enoxaparin Sodium 40 Mg/0.4 Ml Syringe) 40 mg SUBCUT Q24H [facility] Last Admin: 05/22/21 21:48 Dose: 40 mg Documented by: Ferrous Sulfate (Ferrous Sulfate 324 Mg Tablet.) 324 mg PO DAILY [facility] Last Admin: 05/23/21 07:22 Dose: 324 mg Documented by: Folic Acid (Folic Acid 1 Mg Tablet) 1 mg PO DAILY [facility] Last Admin: 05/23/21 07:23 Dose: 1 mg Documented by: Ceftriaxone Sodium 1 gm/ (Sodium Chloride) 50 mls @ 100 mls/hr IV Q24H [facility] Last Infusion: 05/23/21 06:53 Dose: Infused Documented by: Levofloxacin (Levofloxacin 750 Mg Tablet) 750 mg PO Q24H [facility] Last Admin: 05/22/21 21:49 Dose: 750 mg Documented by: Loperamide HCl (Loperamide Hcl 2 Mg Capsule) 2 mg PO Q8H PRN PRN Reason: Diarrhea Last Admin: 05/22/21 05:49 Dose: 2 mg Documented by: Loperamide HCl (Loperamide Hcl 2 Mg Capsule) 6 mg PO Q6H PRN PRN Reason: Diarrhea Last Admin: 05/22/21 21:50 Dose: 6 mg Documented by: Medication (No Benzodiazepines) 1 each MISCELLANE DAILY [facility] Omeprazole (Omeprazole 40 Mg Capsule.) 40 mg PO DAILY@0630 [facility] Last Admin: 05/23/21 06:07 Dose: 40 mg Documented by: Phenobarbital (Phenobarbital 15 Mg Tablet) 15 mg PO DAILY [facility] Stop: 05/26/21 09:01 Phenobarbital (Phenobarbital 30 Mg Tablet) 30 mg PO BID [facility] Stop: 05/24/21 09:01 Last Admin: 05/23/21 07:23 Dose: 30 mg Documented by: Sodium Chloride (0.9 % Sodium Chloride Flush 3 Ml Syringe) 3 ml IVFLUSH QSHIFT [facility] Last Admin: 05/23/21 07:24 Dose: 3 ml Documented by: Thiamine HCl (Thiamine Hcl 100 Mg Tablet) 100 mg PO DAILY [facility] Last Admin: 05/23/21 07:23 Dose: 100 mg Documented by: Urea (Urea 15 Gm Powder) 15 gm PO BID [facility] Last Admin: 05/23/21 07:23 Dose: 15 gm Documented by: Home Medications Medication Instructions Recorded Confirmed Last Taken Type buprenorphine 4 mg-naloxone 1 mg 1 strip SUBLINGUAL DAILY 05/20/21 05/20/21 05/13/21 History sublingual film duloxetine 60 mg capsule,delayed 1 cap PO DAILY 05/20/21 05/20/21 05/18/21 History release ferrous gluconate 324 mg (37.5 mg 324 mg PO DAILY 05/20/21 05/20/21 05/06/21 History iron) tablet Physical Exam Vital Signs: Vital Signs: Last Vital Signs Temp 98.3 F 05/23/21 07:55 Pulse 86 05/23/21 07:55 Resp 17 05/23/21 07:55 BP 139/77 05/23/21 07:55 Pulse Ox 100 05/23/21 07:55 BMI result Body Mass Index 33.3 Const: General: cooperative, comfortable and no acute distress Extrem: Other: Bilateral knees normal to inspection. Surgical scars are well healed. There is no effusion warmth or redness. She has full range of motion without pain. No varus or valgus stress. Results Labs Result Diagrams: 05/20/21 06:34 05/23/21 08:11 Labs: Abnormal lab results 05/22/21 Range/Units 08:26 Sodium 129 L (135-145) mmol/L Potassium 3.2 L (3.3-5.1) mmol/L Chloride 92 L (96-108) mmol/L Carbon Dioxide 30 H (22-29) mmol/L Anion Gap 10 L (12-20) H & H 05/19/21 05/20/21 Range/Units 19:15 06:34 Hgb 11.7 L 9.9 L (12.0-16.0) g/dl Hct 32.1 L 27.6 L (37.0-47.0) % All other labs normal. Assessment and Plan (1) History of knee replacement: Status: Acute Plan X-rays of both knees obtained in the emergency department are negative for any acute or chronic abnormalities. Joint prosthesis appear intact. I did encourage her to follow-up with her orthopedic surgeon for routine exams. I reassured her that there are no abnormalities with the prosthesis and she should continue to work on range of motion and strengthening of the legs. She does understand and will follow up with her orthopedic. Procedures Date of Service Date of Service: 06/25/21
[2021-05-23 08:48] LABS: Anion Gap 11 (12-20); Blood Urea Nitrogen 25 mg/dL (9-16); Calcium 8.6 mg/dL (8.4-10.2); Carbon Dioxide 32 mmol/L (22-29); Chloride 93 mmol/L (96-108); Creatinine Clr Calc Pharmacy 128.5; Estimated Glomerular Filt Rate > 60; Glucose Random 98 mg/dL (60-115); Magnesium 1.5 mg/dL (1.6-2.6); Potassium 4.7 mmol/L (3.3-5.1); Sodium 131 mmol/L (135-145)
--- NOTE | 2021-05-23 10:24 | PM.DS ---
DS: Providers Provider Date of Service: 05/23/21 Date of admission: 05/19/21 20:56 Primary care physician: Unknown Physician Consults: 05/19/21 20:53 Consult to Care Team Routine Comment: Reason for consultation: alcohol abuse Consult to Nephrology Routine Consulting Provider: [facility] Reason for consultation: Hyponatremia Has provider been notified: Yes 05/20/21 12:30 Consult to Orthopedics Routine Consulting Provider: Bassam Gentile Reason for consultation: knee pain , hx of both knee prothesis -xary-? hardware loosning Has provider been notified: No DS: Diagnosis Discharge Diagnosis (1) Alcohol use disorder, severe, dependence: Status: Acute (2) Opioid use disorder: Status: Acute DS: Summary Hospital Course Hospital Course: Chief Complaint: alcohol abuse This is a 50-year-old female with history of opioid use disorder on Suboxone who presents to the hospital after been drinking for 7 days.? Patient reports that her threatened to call 911 and therefore she decided to come to the hospital to seek help.? She reports that for the past 7 days she has not been eating anything except drinking alcohol.? She has also missed her Suboxone for the past week and therefore has daily diarrhea.? She reports generalized weakness, fatigue, but otherwise has no chest pain, no shortness of breath, no palpitations, no nausea or vomiting, no urinary symptoms and no lower extremity edema.? Patient reports her last drink was 3 hours prior to presentation to the hospital, she reports history of severe DTs. She has no numbness tingling, no weakness in upper or lower extremities.? No headache or change in vision. On arrival to the ED patient found to have a heart rate of 104 otherwise hemodynamically stable, Labs are significant for WBC count of 7.3, hemoglobin of 11.7, hematocrit 32.1, platelet count of 138, sodium of 122, potassium of 3.9, chloride level of 82, BUN of 7, UA positive for leukocyte Estrace and WBC, COVID-19 negative, alcohol level of 356.? Serum osmolality of 352, urine sodium less than 20, urine osmolality of 716 Nephrology consulted, patient given fluids, and will be started on 100 cc an hour of NS per Nephrology recommendation Patient started on phenobarb protocol and will be admitted for further management Hospital course: 1. Acute severe hyponatremia likely related to alcoholims--Her sodium level was as low as 119 and treatment consisted of IV Normal Saline, fluid restriction and gradually, her sodium level has signficantly improved presently 131. 2. Alcoholism , At risk for alcohol withdrawal--She did not go into full blown withdrawal but was treated with Phenobarbital to prevent this. Alcohol abstinence has been encouraged and given resources 3. UTI--Negative culture, treated with Ceftriaxne 4.Diarrhea: chronic, imodium 5. Hypomagenesemia--Corected 5. knee pains: xrays -? hardware loosning--No loosening per ortho, to follow with [facility] ([facility]) 6. Weakness, imprved, up and ambulating without any issues. Time Spent with Patient Time attestation: Total time spent providing and/or coordinating discharge services: Discharge coordination time: Greater than 30 minutes Quality: Stroke Does the patient have a stroke diagnosis?: No Physical Exam Vital Signs: Vital Signs: Last Vital Signs Temp 98.3 F 05/23/21 07:55 Pulse 86 05/23/21 07:55 Resp 17 05/23/21 07:55 BP 139/77 05/23/21 07:55 Pulse Ox 100 05/23/21 07:55 BMI result Body Mass Index 33.3 DS: Data Data Completed and Pending Labs on day of discharge: Laboratory Results - last 24 hr 05/23/21 08:11 Sodium 131 L Potassium 4.7 D Chloride 93 L Carbon Dioxide 32 H Anion Gap 11 L BUN 25 H D Creatinine 0.53 Estim Creat Clear Calc 128.5 Estimated GFR > 60 Random Glucose 98 Calcium 8.6 D Magnesium 1.5 L Discharge Plan Discharge Anticipated Discharge Date/Time: 05/23/21 10:19 Patient Disposition: Home, Self-Care Discharge Diagnosis: Hyponatremia Referrals: Yazmin Mckinnon, JUS [Nurse Practitioner] - 1 Week ([facility], APPT IS 05/29 AT 10:30AM ) Physician,José Luis J [Primary Care Provider] - 1 Week Discharge Medications: Continued duloxetine 60 mg capsule,delayed release(DR/EC) 1 cap PO DAILY 0RF ferrous gluconate 324 mg (37.5 mg iron) Tablet 324 mg PO DAILY 0RF buprenorphine-naloxone 4-1 mg film 1 strip sublingual DAILY 0RF Discharge Orders: Discharge Order (Routine); Ordered 05/23/21 Ordered By: Sai Hirsch Diet: advance to usual diet Activity on Discharge: As tolerated Stand Alone Forms: Patient Portal Discharge page Care Plan Goals: prevent rehospitalization and alcohol withdrawal Health Concerns: hyponatremia, alcoholism Plan of Treatment: Avoid alcohol, follow through resources given to use, avoid drinking too much water...no more than 1500 cc a day Assessment: As above
[2021-05-23] MEDS: Magnesium Sulfate/H2O 2 GM/50 ML PIGGYBACK IV (10:28)
--- NOTE | 2021-05-23 10:41 | P.PNNP_ITS ---
Subjective Subjective Date of Service: 06/05/21 Interval history: Patient seen in follow up less pressured and tangential tearful. 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 Would like to reconnect Physical Exam Vital Signs: Vital Signs: Last Vital Signs Temp 98.3 F 05/23/21 07:55 Pulse 86 05/23/21 07:55 Resp 17 05/23/21 07:55 BP 139/77 05/23/21 07:55 Pulse Ox 100 05/23/21 07:55 BMI result Body Mass Index 33.3 Objective Data Labs CBC & Chem 7: 05/20/21 06:34 05/23/21 08:11 Labs: Laboratory Results - last 24 hr 05/23/21 08:11 Sodium 131 L Potassium 4.7 D Chloride 93 L Carbon Dioxide 32 H Anion Gap 11 L BUN 25 H D Creatinine 0.53 Estim Creat Clear Calc 128.5 Estimated GFR > 60 Random Glucose 98 Calcium 8.6 D Magnesium 1.5 L Microbiology Microbiology Results: Microbiology 05/20/21 20:46 Stool Stool Culture - Final 05/20/21 Unknown Urine clean catch - Urine nieves top Urine Culture - Final Procedures Date of Service Date of Service: 05/23/21 Assessment & Plan Time Spent With Patient Time: Total time spent is greater than 50% in coordination of care (as documented) at patient's floor/unit and/or counseling patient: Progress Note: Quality Stroke Does the patient have a stroke diagnosis?: No
--- NOTE | 2021-05-23 11:18 | MHC.CM.PN ---
NURSE NEGATIVE ASSEMBLER NOTE ELECTROINIC MEDICAL RECORD REFVIEWED , VIA TIGER TEXT CONFIRMED THAT PATIENT HAS COMPREHENSICE CARE APPOINTMENT WITH [facility] FOR 05/29/21 AT 10 AM AND SCRIPT FOR SUBOXONE WAS SENT TO THE PHARMACY DISCHARGE PLAN HOME NO SERVICES FOR ANY VNA OR DME COMPREHENSIVE CARE APPOINTMENT 05/29/21 AT 10 AM [place] [facility] [place] [facility] [place] DR BIANCA SANDHU TO CALL FOR [facility] DISCHARGE FOLLOW UP
[2021-05-27 13:31] LABS: Cortisol, Free 1.15 mcg/dL
== END 2021-05-23 12:28 | disposition home or self-care (01) | DRG 425 ==
LOC: HO.ED 20:17 → HO.EDOVER 05-20 00:04 → HO.S3 05-21 19:59
PROVIDERS: Internal Medicine; Admitting Provider Internal Medicine; Emergency Provider Emergency Medicine; PCP Internal Medicine; Visit Provider Internal Medicine
DX: E87.1 Hypo-osmolality and hyponatremia (principal); E87.3 Alkalosis; F11.20 Opioid dependence, uncomplicated; N39.0 Urinary tract infection, site not specified; F10.229 Alcohol dependence with intoxication, unspecified; B37.2 Candidiasis of skin and nail; E83.42 Hypomagnesemia; F10.239 Alcohol dependence with withdrawal, unspecified; Y90.8 Blood alcohol level of 240 mg/100 ml or more; E87.6 Hypokalemia; R29.6 Repeated falls; Z91.81 History of falling; Z20.822 Contact with and (suspected) exposure to COVID-19; Z87.891 Personal history of nicotine dependence; Z79.899 Other long term (current) drug therapy
CPT/HCPCS: 36415; 73560; 80048; 80051; 80076; 81001; 82077; 82436; 82530; 83690; 83735; 83930; 83935; 84133; 84300; 84443; 84550; 85025; 87045; 87046; 87086; 87493; 87635; 89055; 96360; 96361; 96372; 99285; J0696; J1650; J2560; J3475

== ENCOUNTER 2021-06-25 14:44 | Emergency (ER) | payer BC, SELFPAY ==
--- NOTE | ~2021-06-25 | US_ITS ---
EXAMINATION: US VENOUS ULTRASOUND WITH DOPPLER LOWER EXTREMITY, LEFT CLINICAL INFORMATION: Red swollen leg. Status post trauma COMPARISON: None TECHNIQUE: Ultrasound of the deep veins is performed from the hip to the calf with compression sonography and color and pulse Doppler assessment. Spectral analysis with color-flow imaging is performed. FINDINGS: There is normal venous compression and respiratory variation and augmented flow. The visualized common femoral vein, superficial femoral vein, profunda femoral vein, popliteal vein, and the trifurcation region shows no evidence of deep venous thrombosis. There is a small popliteal cyst measuring 4.6 x 4.2 x 5.6 cm and echogenic septations. Also visualized is mid, fluid collection measuring 4.4 x 1 0.4 to 2.6 cm which may be extension of the popliteal fossa following rupture of deep Doss's cyst following trauma. Correlate clinically. Also visualized is subcutis edema in the calf region. If the patient's symptoms persist, followup ultrasound in 5 days 7 days might be of value to exclude proximal propagation from a non-visualized calf vein. US/US venous duplex LE LT IMPRESSION: No DVT demonstrated in the left lower extremity. Doss's cyst. There is fluid seen within the mid calf region questioning continuation of Doss's cyst or ruptured Doss's cyst following trauma. Correlate with clinical exam. There is moderate subcutis calf edema.
[2021-06-25 15:16] VITALS: BP 130/92; BP 153/95; PULSE 93; RESP 18; TEMP 37.1; O2SAT 96; O2SAT 97; BMI 37.2
--- NOTE | 2021-06-25 15:48 | ED_ITS ---
HPI - Alcohol General Chief Complaint: ETOH/Substance Use Stated Complaint: ETOH Time Seen by Provider: 06/25/21 15:21 Source: patient Mode of arrival: ambulatory Limitations: no limitations History of Present Illness HPI narrative: 50-year-old female presents with alcohol intoxication requesting detox, unable to obtain Suboxone for the last 2 days, and left lower extremity pain and swelling. Patient states she normally drinks 20 beers a day, and because she has been drinking she has not been able to drive to go to the clinic to get her Suboxone. States she takes 4 mg a day and has had no Suboxone for 2 days. Says her takes away her car keys when she is drinking and will not allow her to drive to her suboxone appointment. Patient states she had a fall 2 weeks ago and now has left swollen warm red left calf. Patient took Eliquis and Coumadin that she got somehow for the last 2 days. It was not prescribed. Patient states she was home from alcohol rehab treatment 2 weeks ago, and continues to drink. States she drinks 20 beers a day and her last drink was 1 pm. She would like to stop drinking and she would like Suboxone. MD complaint: alcohol dependence and desires rehab Last drink: Hours (ago) (3) Amount of alcohol consumed: 10 beers Chronic alcohol use: Yes Previous visits for alcohol intoxication: Yes Recent trauma: Yes Associated symptoms: denies other symptoms Treatments prior to arrival: none Related Data Home Medications Medication Instructions Recorded Confirmed buprenorphine 4 mg-naloxone 1 mg 1 strip SUBLINGUAL DAILY 05/20/21 05/20/21 sublingual film duloxetine 60 mg capsule,delayed 1 cap PO DAILY 05/20/21 05/20/21 release ferrous gluconate 324 mg (37.5 mg 324 mg PO DAILY 05/20/21 05/20/21 iron) tablet Previous Rx's Medication Instructions Recorded buprenorphine 4 mg-naloxone 1 mg 1 film SUBLINGUAL DAILY #6 ea 05/23/21 sublingual film (Suboxone) magnesium oxide 400 mg PO BID #10 cap 05/23/21 cephalexin 500 mg capsule 500 mg PO QID 7 Days #28 cap 06/25/21 Allergies Allergy/AdvReac Type Severity Reaction Status Date / Time No Known Allergies Allergy Unverified 12/22/19 16:20 Review of Systems Constitutional: Constitutional: Reports body ache(s), Denies chills, Reports fatigue, Denies fever(s), Reports headache(s), Reports malaise and Denies weakness Eyes: Eyes: Denies diplopia ENT: Denies vertigo, Denies dizziness, Denies otalgia, Reports headache(s), Denies mouth pain, Denies post nasal drip, Denies sinus pain, Denies sinus pressure, Denies sore throat and Denies throat swelling Cardiovascular: Cardiovascular: Denies chest pain, Denies syncope, Denies leg edema, Denies lightheadedness, Denies Loss of Consciousness, Denies palpitations and Denies dyspnea Respiratory: Respiratory: Denies chest congestion, Denies cough and Denies dyspnea Gastrointestinal: Gastrointestinal: Denies abdominal pain, Denies melena, Denies hematochezia, Denies coffee ground emesis, Denies constipation, Denies diarrhea and Denies vomiting Genitourinary: Genitourinary: Reports no additional female genitourinary complaints Musculoskeletal: Musculoskeletal: Reports myalgias, Denies numbness and Denies tingling Comments: Left calf pain Integumentary/Breasts: Skin/Breast: Reports erythema and Reports skin swelling Neurologic: Denies confusion, Denies vertigo, Denies dizziness, Denies syncope, Reports headache(s), Denies numbness, Denies Sensory deficit (Neuro), Denies tingling and Denies weakness Psychiatric: Psychiatric: Reports anxiety, Denies confusion, Reports depression, Denies homicidal ideation and Denies suicidal ideation Endocrine: Endocrine: Reports fatigue and Denies palpitations Allergic/Immunologic: Allergic/Immunologic: Denies throat swelling PMFSH Past Medical History Medical History Alcohol abuse Alcohol use disorder, severe, dependence Opioid use disorder Surgical History History of gastric surgery Family History Family History (Updated 05/20/21 @ 06:57 by Teresa Malone MD) Father Lung cancer Social History Social History Household Members: Spouse Housing: House Do you presently have visiting nurse or other home services: No Alcohol intake: current Alcohol intake frequency: 3 or more drinks per day Patient Tobacco Use Status: Former Tobacco user Quit Date: 05/07/21 Tobacco use type: Cigarette Years Smoked: 2 Second Hand Smoke Exposure: No Advance Directives: No Advance Directives Information Provided: Yes service: No Current occupational status: employed Physical Exam ED Vital Signs: Vital Signs - 24 hr 06/25/21 15:16 Temperature 98.8 F Pulse Rate 93 Respiratory Rate 18 Blood Pressure 153/95 H Pulse Oximetry 97 BMI result Body Mass Index 37.2 Const General: alert, awake, intoxicated appearing and poor hygiene; No confusion Nutritional Appearance: obese Orientation/consciousness: patient oriented x3 and No confusion Limitations: no limitations HENMT Head: Yes normal to inspection, Yes No palpable skull fracture present, Yes normocephalic and Yes atraumatic Ears: hearing grossly normal bilaterally General nose exam: Normal external nose present Face and sinus: Yes normal facial exam Mouth: Normal oral and palatal mucosa present Throat: Yes posterior oropharynx normal Eyes Eyelids: Yes eyelids normal Conjunctivae: conjunctivae normal Sclerae: sclerae normal Pupils: Equal, round and reactive pupils present EOM: EOMs intact bilaterally Neck Neck: Yes normal visual inspection, Yes full ROM, Yes no lymphadenopathy, Yes no meningeal signs, Yes trachea midline and Yes supple Resp Effort & Inspection: normal respiratory effort and able to speak in complete sentences Auscultation: clear to auscultation bilaterally, no crackles, no rales, no rhonchi and no wheezes Cardio Rate: regular rate Rhythm: regular rhythm Heart sounds: S1 normal heart sound present and S2 normal heart sound present GI Inspection: Yes Abdominal panniculus present and Yes obesity Palpation (GI): Soft to palpation, nontender, no guarding and not rigid Percussion: Yes normal to percussion Auscultation: normal bowel sounds General: Yes no CVA tenderness Back/Spine/Pelvis Back: no CVA tenderness Skin Other: swelling and erythema left calf General skin exam: ecchymosis (right arm) and scars (bilateral anterior knees) Neuro General: patient oriented x3, no meningeal signs and No confusion Cranial nerves: Yes Equal, round and reactive pupils present Sensory Exam: No Sensory deficit (Neuro) Extrem Other: Left calf swollen and erythematous, mildly tender posterior left calf General: Yes full ROM and Yes capillary refill normal Left lower extremity: normal capillary refill, edema Details: non-pitting and 1+ and knee Details: normal to inspection, normal ROM and knee ligament exam normal; Negative for no tenderness and no swelling Course Course Course Narrative: 50-year-old female with past medical history of alcohol abuse and opioid abuse presents for multiple complaints, including swollen left leg, with concern for DVT, wanting to detox from alcohol, and wanting her Suboxone. On exam, patient is disheveled and tangential in her speech but is redirectable and cooperative. Head patient has bruising on her right upper arm that looks old, patient has erythematous and mildly edematous left lower calf. Will get urine, alcohol level, labs including magnesium, ultrasound left lower extremity, refer to recovery collector. I did CIWA this patient. Gave thiamine, folic acid, Tylenol, Suboxone Reevaluation(s) Reevaluation #1: Labs show alcohol level of 283, drug screen shows positive benzodiazepines, patient has elevated LFTs, magnesium 2.0, labs otherwise unremarkable. Ultrasound left lower extremity shows no DVT, but a fluid collection which may possibly be a ruptured Doss cyst. Will start cephalexin to treat cellulitis left lower extremity, awaiting recovery collector. Reevaluation #2: Under exam, patient is feeling better, does not want recovery collector, wants to go home. Patient states she is starting IOP, she feels safe to go home, she is refusing recovery collector. Will send patient home with antibiotics for cellulitis, and ortho referral to investigate possible ruptured Doss cyst in left knee Return precautions given, patient verbalized agreement and understanding of the plan. MDM - Alcohol Lab Data Result diagrams: 06/25/21 16:11 06/25/21 16:11 Labs: Lab Results 06/25/21 06/25/21 06/25/21 Range/Units 16:11 16:11 16:11 WBC 3.0 L (4.8-10.8) X10*3/uL RBC 3.71 L (4.20-5.50) X10*6/uL Hgb 11.3 L (12.0-16.0) g/dl Hct 35.0 L D (37.0-47.0) % MCV 94.3 (80.0-98.0) fL MCH 30.5 (27.0-33.0) pg MCHC 32.3 (31.0-35.0) g/dl RDW 18.7 H (11.0-16.0) % Plt Count 413 H D (160-400) X10*3/uL MPV 8.7 L (9.4-12.3) fL Immature Gran % (Auto) 0.0 (0.0-0.4) % Neut % (Auto) 60.4 (45-73) % Lymph % (Auto) 27.4 (20-40) % [place] % (Auto) 6.9 (2-11) % Eos % (Auto) 3.6 (0-4) % Baso % (Auto) 1.7 (0-2) % Lymph # (Auto) 0.8 L (1.2-4.9) X10*3/uL [place] # (Auto) 0.2 (0.1-1.2) X10*3/uL Eos # (Auto) 0.1 (0.0-0.4) X10*3/uL Baso # (Auto) 0.1 (0.0-0.2) X10*3/uL Abs Immat Gran (auto) 0.00 (0.00-0.03) X10*3/uL Absolute Neuts (auto) 1.8 L (2.0-8.3) x10*3/uL Absolute Nucleated RBC 0.000 (0.0-0.012) X10*3/uL Nucleated RBC % (auto) 0.0 (0.0-0.2) /100WBC Sodium 144 (135-145) mmol/L Potassium 4.1 (3.3-5.1) mmol/L Chloride 104 (96-108) mmol/L Carbon Dioxide 30 H (22-29) mmol/L Anion Gap 14 (12-20) BUN 9 D (9-16) mg/dL Creatinine 0.58 (0.5-1.4) mg/dL Estim Creat Clear Calc 124.5 Estimated GFR > 60 Random Glucose 90 (60-115) mg/dL Calcium 9.3 D (8.4-10.2) mg/dL Magnesium (1.6-2.6) mg/dL Total Bilirubin 0.3 (0.0-1.0) mg/dL AST 74 H (5-31) U/L ALT 41 H (0-31) U/L Alkaline Phosphatase 123 H (39-117) U/L Total Protein 7.0 D (6.5-8.0) g/dL Albumin 4.1 D (3.5-5.0) g/dL Urine Color Urine Appearance Urine pH (5.0-8.0) Ur Specific [place] (1.005-1.025) Urine Protein (NEG-TRACE) MG/DL Urine Glucose (UA) (NEG) MG/DL Urine Ketones (NEG) MG/DL Urine Blood (NEG) Urine Nitrite (NEG) Ur Leukocyte Esterase (NEG) Urine Test (NEGATIVE) Salicylates < 5.0 L (15-30) mg/dL Urine Opiates Screen Not Detected (Not Detect) Urine Fentanyl Screen Not Detected (Not Detect) Acetaminophen < 1 (<30) mcg/mL Ur Barbiturates Screen Not Detected (Not Detect) Ur Phencyclidine Scrn Not Detected (Not Detect) Ur Amphetamines Screen Not Detected (Not Detect) U Benzodiazepines Scrn POSITIVE H (Not Detect) Urine Cocaine Screen Not Detected (Not Detect) U Marijuana (THC) Screen Not Detected (Not Detect) Ethyl Alcohol mg/dL 06/25/21 06/25/21 06/25/21 Range/Units 16:11 16:11 16:22 WBC (4.8-10.8) X10*3/uL RBC (4.20-5.50) X10*6/uL Hgb (12.0-16.0) g/dl Hct (37.0-47.0) % MCV (80.0-98.0) fL MCH (27.0-33.0) pg MCHC (31.0-35.0) g/dl RDW (11.0-16.0) % Plt Count (160-400) X10*3/uL MPV (9.4-12.3) fL Immature Gran % (Auto) (0.0-0.4) % Neut % (Auto) (45-73) % Lymph % (Auto) (20-40) % [place] % (Auto) (2-11) % Eos % (Auto) (0-4) % Baso % (Auto) (0-2) % Lymph # (Auto) (1.2-4.9) X10*3/uL [place] # (Auto) (0.1-1.2) X10*3/uL Eos # (Auto) (0.0-0.4) X10*3/uL Baso # (Auto) (0.0-0.2) X10*3/uL Abs Immat Gran (auto) (0.00-0.03) X10*3/uL Absolute Neuts (auto) (2.0-8.3) x10*3/uL Absolute Nucleated RBC (0.0-0.012) X10*3/uL Nucleated RBC % (auto) (0.0-0.2) /100WBC Sodium (135-145) mmol/L Potassium (3.3-5.1) mmol/L Chloride (96-108) mmol/L Carbon Dioxide (22-29) mmol/L Anion Gap (12-20) BUN (9-16) mg/dL Creatinine (0.5-1.4) mg/dL Estim Creat Clear Calc Estimated GFR Random Glucose (60-115) mg/dL Calcium (8.4-10.2) mg/dL Magnesium 2.0 (1.6-2.6) mg/dL Total Bilirubin (0.0-1.0) mg/dL AST (5-31) U/L ALT (0-31) U/L Alkaline Phosphatase (39-117) U/L Total Protein (6.5-8.0) g/dL Albumin (3.5-5.0) g/dL Urine Color YELLOW Urine Appearance CLEAR Urine pH 6.5 (5.0-8.0) Ur Specific [place] <= 1.005 (1.005-1.025) Urine Protein NEG (NEG-TRACE) MG/DL Urine Glucose (UA) NEG (NEG) MG/DL Urine Ketones NEG (NEG) MG/DL Urine Blood NEG (NEG) Urine Nitrite NEG (NEG) Ur Leukocyte Esterase NEG (NEG) Urine Test (NEGATIVE) Salicylates (15-30) mg/dL Urine Opiates Screen (Not Detect) Urine Fentanyl Screen (Not Detect) Acetaminophen (<30) mcg/mL Ur Barbiturates Screen (Not Detect) Ur Phencyclidine Scrn (Not Detect) Ur Amphetamines Screen (Not Detect) U Benzodiazepines Scrn (Not Detect) Urine Cocaine Screen (Not Detect) U Marijuana (THC) Screen (Not Detect) Ethyl Alcohol 283 mg/dL 03/22/22 Range/Units 16:22 WBC (4.8-10.8) X10*3/uL RBC (4.20-5.50) X10*6/uL Hgb (12.0-16.0) g/dl Hct (37.0-47.0) % MCV (80.0-98.0) fL MCH (27.0-33.0) pg MCHC (31.0-35.0) g/dl RDW (11.0-16.0) % Plt Count (160-400) X10*3/uL MPV (9.4-12.3) fL Immature Gran % (Auto) (0.0-0.4) % Neut % (Auto) (45-73) % Lymph % (Auto) (20-40) % [place] % (Auto) (2-11) % Eos % (Auto) (0-4) % Baso % (Auto) (0-2) % Lymph # (Auto) (1.2-4.9) X10*3/uL [place] # (Auto) (0.1-1.2) X10*3/uL Eos # (Auto) (0.0-0.4) X10*3/uL Baso # (Auto) (0.0-0.2) X10*3/uL Abs Immat Gran (auto) (0.00-0.03) X10*3/uL Absolute Neuts (auto) (2.0-8.3) x10*3/uL Absolute Nucleated RBC (0.0-0.012) X10*3/uL Nucleated RBC % (auto) (0.0-0.2) /100WBC Sodium (135-145) mmol/L Potassium (3.3-5.1) mmol/L Chloride (96-108) mmol/L Carbon Dioxide (22-29) mmol/L Anion Gap (12-20) BUN (9-16) mg/dL Creatinine (0.5-1.4) mg/dL Estim Creat Clear Calc Estimated GFR Random Glucose (60-115) mg/dL Calcium (8.4-10.2) mg/dL Magnesium (1.6-2.6) mg/dL Total Bilirubin (0.0-1.0) mg/dL AST (5-31) U/L ALT (0-31) U/L Alkaline Phosphatase (39-117) U/L Total Protein (6.5-8.0) g/dL Albumin (3.5-5.0) g/dL Urine Color Urine Appearance Urine pH (5.0-8.0) Ur Specific [place] (1.005-1.025) Urine Protein (NEG-TRACE) MG/DL Urine Glucose (UA) (NEG) MG/DL Urine Ketones (NEG) MG/DL Urine Blood (NEG) Urine Nitrite (NEG) Ur Leukocyte Esterase (NEG) Urine Test NEGATIVE (NEGATIVE) Salicylates (15-30) mg/dL Urine Opiates Screen (Not Detect) Urine Fentanyl Screen (Not Detect) Acetaminophen (<30) mcg/mL Ur Barbiturates Screen (Not Detect) Ur Phencyclidine Scrn (Not Detect) Ur Amphetamines Screen (Not Detect) U Benzodiazepines Scrn (Not Detect) Urine Cocaine Screen (Not Detect) U Marijuana (THC) Screen (Not Detect) Ethyl Alcohol mg/dL Discharge Plan Discharge Clinical Impression: Alcohol abuse, Doss's cyst, ruptured Cellulitis Qualifiers: Site of cellulitis: extremity Site of cellulitis of extremity: lower extremity Laterality: left Qualified Code(s): L03.116 - Cellulitis of left lower limb Instructions: Cellulitis (ED), Bakers Cyst (ED), Abuse of Alcohol (ED) Additional Instructions: Please call Orthopedics at [phone]. You have a ruptured Doss cyst, and I am concerned for cellulitis in your left lower extremity. Given that you have a knee replacement, I want you to follow-up with orthopedics. I have prescribed a course of antibiotic for left lower extremity cellulitis. Please fill this at your pharmacy and started tonight. Also please call your primary care provider for follow-up appointment from today's visit. Please return to emergency room if you have any new or concerning symptoms. Prescriptions: New cephalexin 500 mg capsule 500 mg PO QID 7 Days Qty: 28 0RF No Action duloxetine 60 mg capsule,delayed release(DR/EC) 1 cap PO DAILY 0RF ferrous gluconate 324 mg (37.5 mg iron) Tablet 324 mg PO DAILY 0RF buprenorphine-naloxone 4-1 mg film 1 strip sublingual DAILY 0RF magnesium oxide 400 mg magnesium capsule 400 mg PO BID Qty: 10 0RF buprenorphine-naloxone [Suboxone] 4-1 mg film 1 film sublingual DAILY Qty: 6 0RF Referrals: Crissy Marroquin PA [Emergency Midlevel Provider] - 2 days Mignon Alan MD [Physician] - 2 days
[2021-06-25 16:17] LABS: MANUAL DIFF FLAG NO
[2021-06-25] MEDS: Acetaminophen 325 MG TABLET 650 MG PO (16:18)
[2021-06-25 16:19] LABS: Basophils Absolute Auto 0.1 X10*3/uL (0.0-0.2); Basophils Percent Auto 1.7 % (0-2); Eosinophils Absolute Auto 0.1 X10*3/uL (0.0-0.4); Eosinophils Percent Auto 3.6 % (0-4); Hemoglobin 11.3 g/dl (12.0-16.0); Lymphocytes Absolute Auto 0.8 X10*3/uL (1.2-4.9); Lymphocytes Percent Auto 27.4 % (20-40); Mean Corpuscular HGB Conc 32.3 g/dl (31.0-35.0); Mean Corpuscular Hemoglobin 30.5 pg (27.0-33.0); Mean Corpuscular Volume 94.3 fL (80.0-98.0); Mean Platelet Volume 8.7 fL (9.4-12.3); Monocytes Absolute Auto 0.2 X10*3/uL (0.1-1.2); Monocytes Percent Auto 6.9 % (2-11); Neutrophils Absolute Auto 1.8 x10*3/uL (2.0-8.3); Neutrophils Percent Auto 60.4 % (45-73); Platelet Count 413 X10*3/uL (160-400); Red Blood Count 3.71 X10*6/uL (4.20-5.50); Red Cell Distribution Width 18.7 % (11.0-16.0)
[2021-06-25] MEDS: Buprenorphine/Naloxone 4/1 mg FILM 1 FILM SUBLINGUAL (16:19)
[2021-06-25] MEDS: Thiamine HCL 100 MG TABLET PO (16:19)
[2021-06-25] MEDS: Folic Acid 1 MG TABLET PO (16:19)
[2021-06-25 16:32] LABS: Appearance Urine CLEAR; Color Urine YELLOW; Glucose Urine UA NEG (NEG); Leukocyte Esterase Urine NEG (NEG); Nitrite Urine NEG (NEG); PH 6.5 (5.0-8.0); Specific Gravity - Urine <= 1.005 (1.005-1.025); Urine Blood NEG (NEG); Urine Ketones NEG (NEG); Urine Protein NEG (NEG-TRACE)
[2021-06-25 16:35] LABS: UPreg QC Valid YES; Urine Pregnancy NEGATIVE (NEGATIVE)
[2021-06-25 16:36] LABS: Ethanol 283 mg/dL
[2021-06-25 16:39] LABS: Acetaminophen LAB < 1 mcg/mL (<30); Alanine Aminotransferase 41 U/L (0-31); Albumin Level 4.1 g/dL (3.5-5.0); Alkaline Phosphatase 123 U/L (39-117); Anion Gap 14 (12-20); Aspartate Amino Transferase 74 U/L (5-31); Bilirubin Total 0.3 mg/dL (0.0-1.0); Blood Urea Nitrogen 9 mg/dL (9-16); Calcium 9.3 mg/dL (8.4-10.2); Carbon Dioxide 30 mmol/L (22-29); Chloride 104 mmol/L (96-108); Creatinine Clr Calc Pharmacy 124.5; Estimated Glomerular Filt Rate > 60; Glucose Random 90 mg/dL (60-115); Potassium 4.1 mmol/L (3.3-5.1); Salicylate < 5.0 mg/dL (15-30); Sodium 144 mmol/L (135-145)
[2021-06-25 16:40] LABS: Amphetamine Screen Urine Not Detected (Not Detect); Barbiturates, Urine Not Detected (Not Detect); Benzodiazepines Screen Urine POSITIVE (Not Detect); Cannabinoid Screen Urine Not Detected (Not Detect); Cocaine Screen Urine Not Detected (Not Detect); Fentanyl, urine Not Detected (Not Detect); Opiate Screen Urine Not Detected (Not Detect); Phencyclidine Screen Urine Not Detected (Not Detect)
[2021-06-25] MEDS: cephALEXin 500 MG CAPSULE PO (17:56)
== END 2021-06-25 18:10 | disposition home or self-care (01) ==
PROVIDERS: Physician Assistant; Emergency Provider Emergency Medicine; PCP Internal Medicine
DX: L03.116 Cellulitis of left lower limb (principal); M66.0 Rupture of popliteal cyst; M79.605 Pain in left leg; F10.120 Alcohol abuse with intoxication, uncomplicated; Y90.8 Blood alcohol level of 240 mg/100 ml or more; F11.20 Opioid dependence, uncomplicated
CPT/HCPCS: 36415; 80053; 80143; 80179; 80307; 81003; 81025; 82077; 83735; 85025; 93971; 99284

== ENCOUNTER 2021-06-26 14:05 | Emergency (ER) | payer BC, SELFPAY ==
--- NOTE | ~2021-06-26 | US_ITS ---
EXAMINATION: US VENOUS ULTRASOUND WITH DOPPLER LOWER EXTREMITY, LEFT CLINICAL INFORMATION: Left leg pain swelling COMPARISON: None TECHNIQUE: Ultrasound of the deep veins is performed from the hip to the calf with compression sonography and color and pulse Doppler assessment. Spectral analysis with color-flow imaging is performed. FINDINGS: There is normal venous compression and respiratory variation and augmented flow. The visualized common femoral vein, superficial femoral vein, profunda femoral vein, popliteal vein, and the trifurcation region shows no evidence of deep venous thrombosis. There is no significant popliteal fossa cyst. There is anechoic collection with its debris and septation surrounding the patella likely complex joint effusion. There is a hypoechoic small collection adjacent to the proximal/medial tibia measuring 1.0 x 0.472 question small hematoma. Patient is status post fall If the patient's symptoms persist, followup ultrasound in 5 days 7 days might be of value to exclude proximal propagation from a non-visualized calf vein. US/US venous duplex LE IMPRESSION: No DVT demonstrated in the left lower extremity. Complex joint effusion surrounding the patella. Suspect small hematoma adjacent to the proximal/medial tibia, status post fall.
[2021-06-26 14:13] VITALS: BP 139/73; PULSE 87; RESP 17; TEMP 36.9; O2SAT 97; BMI 37.2
--- NOTE | 2021-06-26 14:31 | ED.PSYCH ---
HPI - Psych General Chief Complaint: ETOH/Substance Use Stated Complaint: ETOH Time Seen by Provider: 06/26/21 14:28 Source: patient Mode of arrival: ambulatory Limitations: no limitations History of Present Illness HPI Narrative: ETOH I am a fuck up. I don't want to live. the patient also tells she was dx with left leg ruptured kowalski cyst yesterday but she was worried it was a DVT so she took some peoples coumadin one day 5mg then one day 2.5mg eliquis x 2 days (none yesterday or today) She reports SI to me when asked. My kids don't like me. 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 DCF is in my life and we are good people. complaint: suicidal ideation and alcohol abuse Onset (ago): day(s) (?today unsure she is vague) Duration: constant History of same: Yes Relieving factors: none Exacerbating factors: alcohol Context: recent alcohol abuse and significant life stressor Associated psychiatric symptoms: depression and suicidal ideation Associated symptoms: denies other symptoms Treatments prior to arrival: none If self harm: admits thoughts of self harm Related Data Home Medications Medication Instructions Recorded Confirmed buprenorphine 4 mg-naloxone 1 mg 1 strip SUBLINGUAL DAILY 05/20/21 05/20/21 sublingual film duloxetine 60 mg capsule,delayed 1 cap PO DAILY 05/20/21 05/20/21 release ferrous gluconate 324 mg (37.5 mg 324 mg PO DAILY 05/20/21 05/20/21 iron) tablet Previous Rx's Medication Instructions Recorded buprenorphine 4 mg-naloxone 1 mg 1 film SUBLINGUAL DAILY #6 ea 05/23/21 sublingual film (Suboxone) magnesium oxide 400 mg PO BID #10 cap 05/23/21 cephalexin 500 mg capsule 500 mg PO QID 7 Days #28 cap 06/25/21 Allergies Allergy/AdvReac Type Severity Reaction Status Date / Time No Known Allergies Allergy Unverified 12/22/19 16:20 Review of Systems Review of Systems: Constitutional : No Fever, No Chills ENT/Mouth : No Ear Pain, No Nasal Congestion, No sore throat Eyes: No Eye Pain, No Swelling, No Redness Cardiovascular : No Chest Pain, No SOB Respiratory : No Cough, No Sputum, No Dyspnea Gastrointestinal : No Nausea, No Vomiting, No Diarrhea, No Hematochezia, No Melena Genitourinary : No Dysuria, No Urinary Frequency, No Hematuria Musculoskeletal : No Myalgias, Pos leg pain Skin : No Skin Lesions, No rash Neuro : No Weakness, No Numbness, No Paresthesias, No Dizziness, No Headache Psych : positive Anxiety, positive Depression, positive SI no HI Heme/Lymph: No Lymphadenopathy Endocrine : No Polyuria, No Polydipsia All other systems reviewed and are negative [facility] Past Medical History Attestation statement: The following information was validated with the patient. Medical History Alcohol abuse Alcohol use disorder, severe, dependence Opioid use disorder Surgical History History of gastric surgery Family History Family History (Updated 05/20/21 @ 06:57 by Teresa Malone MD) Father Lung cancer Social History Social History Household Members: Spouse Housing: House Do you presently have visiting nurse or other home services: No Alcohol intake: current Alcohol intake frequency: 3 or more drinks per day Patient Tobacco Use Status: Former Tobacco user Quit Date: 05/07/21 Tobacco use type: Cigarette Years Smoked: 2 Second Hand Smoke Exposure: No Advance Directives: No Advance Directives Information Provided: No service: No Current occupational status: employed Physical Exam Vital Signs: Vital Signs: Last Vital Signs Temp 97.8 F 06/26/21 17:29 Pulse 101 H 06/26/21 17:29 Resp 16 06/26/21 17:29 BP 128/75 06/26/21 17:29 Pulse Ox 99 06/26/21 17:29 BMI result Body Mass Index 37.2 Appearance: Alert. Oriented X3. No acute distress. ETOH odor, slurred speech, very belligerent, appears intoxicated Eyes: Pupils equal, round and reactive to light. Atraumatic ENT: Pharynx normal. Neck: Normal inspection. Neck supple. CVS: Normal heart rate and rhythm. Pulses normal. Respiratory: No respiratory distress. Breath sounds normal. Abdomen: Soft and non-tender. Skin: Skin warm and dry. Normal skin color. Normal skin turgor. Extremities: left leg 1+ swelling noted pain behind pop fossa Neuro: Oriented X 3. No motor deficit. No sensory deficit. Course Course Course Narrative: Physician observation started at 623pm. Patient placed in physician observation because the patient needed more time for CARE team to assess substance abuse and SI statements. At the time observation was started the patient's vitals were stable, patient is alert and oriented, Neuro: nonfocal, CV RRR, Lungs clear given ddimer will repeat US in AM of LLE order in MDM - Psych MDM Narrative Medical decision making narrative: 50 yo female with hx of substance abuse and ETOH abuse making SI statements at [facility] and to me. She also reports taking some DOAC at home just in case - no head trauma and she hasn't taken anything since ?Thursday per her reports. Will obtain tox screen, coag screens, CARE team consult. She is trying to leave I am signing section 12 given her ETOH and direct SI statements to me. Lab Data Result diagrams: 06/26/21 17:26 06/26/21 17:26 Labs: Lab Results 06/26/21 06/26/21 06/26/21 Range/Units 14:36 17:26 17:26 WBC 3.7 L (4.8-10.8) X10*3/uL RBC 3.51 L (4.20-5.50) X10*6/uL Hgb 10.9 L (12.0-16.0) g/dl Hct 33.0 L (37.0-47.0) % MCV 94.0 (80.0-98.0) fL MCH 31.1 (27.0-33.0) pg MCHC 33.0 (31.0-35.0) g/dl RDW 18.6 H (11.0-16.0) % Plt Count 470 H (160-400) X10*3/uL MPV 8.7 L (9.4-12.3) fL Immature Gran % (Auto) 0.3 (0.0-0.4) % Neut % (Auto) 68.7 (45-73) % Lymph % (Auto) 23.3 (20-40) % Rankin % (Auto) 5.6 (2-11) % Eos % (Auto) 0.5 (0-4) % Baso % (Auto) 1.6 (0-2) % Lymph # (Auto) 0.9 L (1.2-4.9) X10*3/uL Rankin # (Auto) 0.2 (0.1-1.2) X10*3/uL Eos # (Auto) 0.0 (0.0-0.4) X10*3/uL Baso # (Auto) 0.1 (0.0-0.2) X10*3/uL Abs Immat Gran (auto) 0.01 (0.00-0.03) X10*3/uL Absolute Neuts (auto) 2.6 (2.0-8.3) x10*3/uL Absolute Nucleated RBC 0.000 (0.0-0.012) X10*3/uL Nucleated RBC % (auto) 0.0 (0.0-0.2) /100WBC PT (9.9-13.0) SEC INR (0.9-1.1) APTT (24.1-38.0) SEC D-Dimer High Sensitivty NG/ML Sodium 136 (135-145) mmol/L Potassium 4.8 (3.3-5.1) mmol/L Chloride 102 (96-108) mmol/L Carbon Dioxide 22 (22-29) mmol/L Anion Gap 17 (12-20) BUN 6 L (9-16) mg/dL Creatinine 0.60 (0.5-1.4) mg/dL Estim Creat Clear Calc 120.4 Estimated GFR > 60 Random Glucose 108 (60-115) mg/dL Calcium 9.1 (8.4-10.2) mg/dL Magnesium 2.0 (1.6-2.6) mg/dL Total Bilirubin 0.4 (0.0-1.0) mg/dL Direct Bilirubin < 0.2 (0.0-0.5) mg/dL AST 137 H (5-31) U/L ALT 63 H (0-31) U/L Alkaline Phosphatase 142 H (39-117) U/L Total Protein 6.7 (6.5-8.0) g/dL Albumin 3.9 (3.5-5.0) g/dL Urine Opiates Screen Not Detected (Not Detect) Urine Fentanyl Screen Not Detected (Not Detect) Ur Barbiturates Screen Not Detected (Not Detect) Ur Phencyclidine Scrn Not Detected (Not Detect) Ur Amphetamines Screen Not Detected (Not Detect) U Benzodiazepines Scrn POSITIVE H (Not Detect) Urine Cocaine Screen Not Detected (Not Detect) U Marijuana (THC) Screen Not Detected (Not Detect) Ethyl Alcohol mg/dL COVID-19 ([facility]) (Negative) COVID-19 Clin Com 06/26/21 06/26/21 06/26/21 Range/Units 17:26 17:26 17:26 WBC (4.8-10.8) X10*3/uL RBC (4.20-5.50) X10*6/uL Hgb (12.0-16.0) g/dl Hct (37.0-47.0) % MCV (80.0-98.0) fL MCH (27.0-33.0) pg MCHC (31.0-35.0) g/dl RDW (11.0-16.0) % Plt Count (160-400) X10*3/uL MPV (9.4-12.3) fL Immature Gran % (Auto) (0.0-0.4) % Neut % (Auto) (45-73) % Lymph % (Auto) (20-40) % Rankin % (Auto) (2-11) % Eos % (Auto) (0-4) % Baso % (Auto) (0-2) % Lymph # (Auto) (1.2-4.9) X10*3/uL Rankin # (Auto) (0.1-1.2) X10*3/uL Eos # (Auto) (0.0-0.4) X10*3/uL Baso # (Auto) (0.0-0.2) X10*3/uL Abs Immat Gran (auto) (0.00-0.03) X10*3/uL Absolute Neuts (auto) (2.0-8.3) x10*3/uL Absolute Nucleated RBC (0.0-0.012) X10*3/uL Nucleated RBC % (auto) (0.0-0.2) /100WBC PT 10.3 (9.9-13.0) SEC INR 0.9 (0.9-1.1) APTT 29.1 (24.1-38.0) SEC D-Dimer High Sensitivty 719 NG/ML Sodium (135-145) mmol/L Potassium (3.3-5.1) mmol/L Chloride (96-108) mmol/L Carbon Dioxide (22-29) mmol/L Anion Gap (12-20) BUN (9-16) mg/dL Creatinine (0.5-1.4) mg/dL Estim Creat Clear Calc Estimated GFR Random Glucose (60-115) mg/dL Calcium (8.4-10.2) mg/dL Magnesium (1.6-2.6) mg/dL Total Bilirubin (0.0-1.0) mg/dL Direct Bilirubin (0.0-0.5) mg/dL AST (5-31) U/L ALT (0-31) U/L Alkaline Phosphatase (39-117) U/L Total Protein (6.5-8.0) g/dL Albumin (3.5-5.0) g/dL Urine Opiates Screen (Not Detect) Urine Fentanyl Screen (Not Detect) Ur Barbiturates Screen (Not Detect) Ur Phencyclidine Scrn (Not Detect) Ur Amphetamines Screen (Not Detect) U Benzodiazepines Scrn (Not Detect) Urine Cocaine Screen (Not Detect) U Marijuana (THC) Screen (Not Detect) Ethyl Alcohol 299 mg/dL COVID-19 ([facility]) Negative (Negative) COVID-19 Clin Com See Note Discharge Plan Discharge Clinical Impression: Alcoholic intoxication Qualifiers: Complication of substance-induced condition: uncomplicated Qualified Code(s): F10.920 - Alcohol use, unspecified with intoxication, uncomplicated Depression Qualifiers: Depression Type: unspecified Qualified Code(s): F32.A - Depression, unspecified Patient Disposition: Still a Patient Prescriptions: No Action duloxetine 60 mg capsule,delayed release(DR/EC) 1 cap PO DAILY 0RF ferrous gluconate 324 mg (37.5 mg iron) Tablet 324 mg PO DAILY 0RF buprenorphine-naloxone 4-1 mg film 1 strip sublingual DAILY 0RF magnesium oxide 400 mg magnesium capsule 400 mg PO BID Qty: 10 0RF buprenorphine-naloxone [Suboxone] 4-1 mg film 1 film sublingual DAILY Qty: 6 0RF cephalexin 500 mg capsule 500 mg PO QID 7 Days Qty: 28 0RF
[2021-06-26 15:05] LABS: Amphetamine Screen Urine Not Detected (Not Detect); Barbiturates, Urine Not Detected (Not Detect); Benzodiazepines Screen Urine POSITIVE (Not Detect); Cannabinoid Screen Urine Not Detected (Not Detect); Cocaine Screen Urine Not Detected (Not Detect); Fentanyl, urine Not Detected (Not Detect); Opiate Screen Urine Not Detected (Not Detect); Phencyclidine Screen Urine Not Detected (Not Detect)
[2021-06-26 17:29] VITALS: BP 128/75; PULSE 101; RESP 16; TEMP 36.6; O2SAT 99
[2021-06-26 17:30] LABS: MANUAL DIFF FLAG NO
[2021-06-26 17:32] LABS: Basophils Absolute Auto 0.1 X10*3/uL (0.0-0.2); Basophils Percent Auto 1.6 % (0-2); Eosinophils Percent Auto 0.5 % (0-4); Hemoglobin 10.9 g/dl (12.0-16.0); Imm Gran Abs Auto 0.01 X10*3/uL (0.00-0.03); Imm Gran Pct Auto 0.3 % (0.0-0.4); Lymphocytes Absolute Auto 0.9 X10*3/uL (1.2-4.9); Lymphocytes Percent Auto 23.3 % (20-40); Mean Corpuscular Hemoglobin 31.1 pg (27.0-33.0); Mean Platelet Volume 8.7 fL (9.4-12.3); Monocytes Absolute Auto 0.2 X10*3/uL (0.1-1.2); Monocytes Percent Auto 5.6 % (2-11); Neutrophils Absolute Auto 2.6 x10*3/uL (2.0-8.3); Neutrophils Percent Auto 68.7 % (45-73); Platelet Count 470 X10*3/uL (160-400); Red Blood Count 3.51 X10*6/uL (4.20-5.50); Red Cell Distribution Width 18.6 % (11.0-16.0); White Blood Count 3.7 X10*3/uL (4.8-10.8)
[2021-06-26 17:38] LABS: INTERNATIONAL NORM RATIO 0.9 (0.9-1.1); Prothrombin Time 10.3 SEC (9.9-13.0)
[2021-06-26] MEDS: Buprenorphine/Naloxone 4/1 mg FILM 1 FILM SUBLINGUAL (17:39)
[2021-06-26 17:40] LABS: D Dimer High Sensitivity 719 NG/ML
[2021-06-26 17:41] LABS: Partial Thromboplastin Time 29.1 SEC (24.1-38.0)
[2021-06-26 17:49] LABS: Ethanol 299 mg/dL
[2021-06-26 17:53] LABS: COVID-19 Test Negative (Negative); IDNOW Serial# 16C4AD1C
[2021-06-26 17:58] LABS: Alanine Aminotransferase 63 U/L (0-31); Albumin Level 3.9 g/dL (3.5-5.0); Alkaline Phosphatase 142 U/L (39-117); Anion Gap 17 (12-20); Aspartate Amino Transferase 137 U/L (5-31); Bilirubin Direct < 0.2 mg/dL (0.0-0.5); Bilirubin Total 0.4 mg/dL (0.0-1.0); Blood Urea Nitrogen 6 mg/dL (9-16); Calcium 9.1 mg/dL (8.4-10.2); Carbon Dioxide 22 mmol/L (22-29); Chloride 102 mmol/L (96-108); Creatinine Clr Calc Pharmacy 120.4; Estimated Glomerular Filt Rate > 60; Glucose Random 108 mg/dL (60-115); Potassium 4.8 mmol/L (3.3-5.1); Sodium 136 mmol/L (135-145); Total Protein 6.7 g/dL (6.5-8.0)
[2021-06-26] MEDS: chlordiazePOXIDE HCl 25 MG CAPSULE 50 MG PO (20:29)
[2021-06-27 00:32] VITALS: BP 138/75; PULSE 107; RESP 16; O2SAT 97
[2021-06-27] MEDS: chlordiazePOXIDE HCl 25 MG CAPSULE 50 MG PO ×3 (00:35→09:59)
--- NOTE | 2021-06-27 00:42 | PC.NURSE ---
MEY 10 @ 0033, Librium 50 mg administered/pending effect, will continue to monitor
--- NOTE | 2021-06-27 05:18 | PC.NURSE ---
Patient slept intermittently, patient scoring on CIWA scale, 10 @ 0033 & 0512 administered Librium 50 mg as ordered with + effect, behavior appropriate and non concerning at this time, medication compliant, US of LLE due at 0900, patient will be assessed by care team in the morning, will continue to monitor
[2021-06-27 05:31] VITALS: BP 151/87; PULSE 94; RESP 20
--- NOTE | 2021-06-27 07:09 | PC.NURSE ---
Care assumed at this time, report from Les CARLIN. Pt sleeping at this time, resp reg and even, NAD. Awaiting CARE team eval.
--- NOTE | 2021-06-27 07:56 | PC.NURSE ---
Pt off unit to u/s at this time via wc.
--- NOTE | 2021-06-27 08:24 | PC.NURSE ---
CARE team at bedside for re-eval.
--- NOTE | 2021-06-27 08:37 | MHC.CARE ---
Risk Assessment: CARE Team met with Pt to complete risk assessment. Pt denies current SI/HI/VH/AH. Pt has no history of suicide attempts to gestures. Pt reports she has been feeling frustrated after her recent relapse on alcohol and difficulties maintaining her sobriety. Pt is future orientated and wants to get work on being reunified her children who are in the care and custody of DCF due to her substance use. Pt is verbalizing safety and does not endorse suicidal ideation. Plan for Pt to be referred to [facility] for detox. Case discussed with Dr. Langston
[2021-06-27 08:44] VITALS: BP 147/66; PULSE 92; RESP 12; TEMP 37.2; O2SAT 97
[2021-06-27] MEDS: DULoxetine HCl 60 MG CAPSULE.DR PO (09:21)
--- NOTE | 2021-06-27 09:51 | PHA.MEDREC ---
Pharmacy Consult ? Medication Reconciliation Pharmacy has reviewed the medication reconciliation completed by Les. Patient no longer on antibiotics. Provider was notified. Brigid Bergeron, RaffiD
[2021-06-27] MEDS: Buprenorphine/Naloxone 4/1 mg FILM 1 FILM SUBLINGUAL (10:21)
== END 2021-06-27 10:31 | disposition home or self-care (01) ==
PROVIDERS: Emergency Provider Emergency Medicine; PCP Internal Medicine
DX: F10.920 Alcohol use, unspecified with intoxication, uncomplicated (principal); F32.1 Major depressive disorder, single episode, moderate; F17.210 Nicotine dependence, cigarettes, uncomplicated; R60.0 Localized edema; Y90.8 Blood alcohol level of 240 mg/100 ml or more; Z20.822 Contact with and (suspected) exposure to COVID-19; Z79.899 Other long term (current) drug therapy; Z71.6 Tobacco abuse counseling
CPT/HCPCS: 36415; 80048; 80076; 80307; 82077; 83735; 85025; 85379; 85610; 85730; 87635; 93971; 99285

== ENCOUNTER 2021-06-27 18:37 | Emergency (ER) | payer BC, SELFPAY ==
--- NOTE | 2021-06-27 18:43 | ED.ALCOHOL ---
HPI - Alcohol General Chief Complaint: ETOH/Substance Use <Idalia Longoria NP - Last Filed: 06/28/21 02:17> Stated Complaint: etoh <Idalia Longoria NP - Last Filed: 06/28/21 02:17> Time Seen by Provider: 06/27/21 18:44 <Idalia Longoria NP - Last Filed: 06/28/21 02:17> Source: patient and EMS <Idalia Longoria NP - Last Filed: 06/28/21 02:17> Mode of arrival: EMS <Idalia Longoria NP - Last Filed: 06/28/21 02:17> Limitations: no limitations <Idalia Longoria NP - Last Filed: 06/28/21 02:17> History of Present Illness HPI narrative: 50-year-old female presents via EMS for alcohol intoxication. Patient was discharged from this facility this morning, was supposed to present to detox however patient decided to stay home and drink more alcohol. Patient is belligerent, verbally aggressive, and difficult to redirect upon arrival. <Idalia Longoria NP - Last Filed: 06/28/21 02:17> MD complaint: alcohol intoxication <Idalia Longoria NP - Last Filed: 06/28/21 02:17> Chronic alcohol use: Yes <Idalia Longoria NP - Last Filed: 06/28/21 02:17> Previous visits for alcohol intoxication: Yes <Idalia Longoria NP - Last Filed: 06/28/21 02:17> Recent trauma: No <Idalia Longoria NP - Last Filed: 06/28/21 02:17> Associated symptoms: denies other symptoms <Idalia Longoria NP - Last Filed: 06/28/21 02:17> Related Data Home Medications: Home Medications Medication Instructions Recorded Confirmed buprenorphine 4 mg-naloxone 1 mg 1 strip SUBLINGUAL DAILY 05/20/21 06/27/21 sublingual film duloxetine 60 mg capsule,delayed 1 cap PO DAILY 06/27/21 06/27/21 release <Idalia Longoria NP - Last Filed: 06/28/21 02:17> Allergies/Adverse Reactions: Allergies Allergy/AdvReac Type Severity Reaction Status Date / Time No Known Allergies Allergy Unverified 12/22/19 16:20 <Idalia Longoria NP - Last Filed: 06/28/21 02:17> Review of Systems Review of Systems: Constitutional: No Fever, No Chills ENT/Mouth: No sore throat, No Rhinorrhea Eyes: No Eye Pain, No Swelling, No Redness Cardiovascular: No Chest Pain, No SOB Respiratory: No Cough, No Sputum Gastrointestinal: No Nausea, No Vomiting, No Diarrhea, No abdominal Pain Genitourinary: No Dysuria, No Hematuria Musculoskeletal: No joint pain, No Myalgias, No Joint Swelling Skin: No Skin Lesions, No rash Neuro: No Weakness, No Numbness, No Loss of Consciousness, No Dizziness, No Headache Psych: Alcohol intoxication, No Anxiety, No Depression, No SI/HI/AH/VH Heme/Lymph: No Bruising, No Bleeding,No Lymphadenopathy Endocrine: No Polyuria, No Polydipsia <Idalia Longoria NP - Last Filed: 06/28/21 02:17> Yes all other systems are reviewed and are negative <Idalia Longoria NP - Last Filed: 06/28/21 02:17> [facility] Past Medical History Attestation statement: The following information was validated with the patient. <Idalia Longoria NP - Last Filed: 06/28/21 02:17> Source: old records reviewed <Idalia Longoria NP - Last Filed: 06/28/21 02:17> Medical History: Medical History Alcohol abuse Alcohol use disorder, severe, dependence Opioid use disorder <Idalia Longoria NP - Last Filed: 06/28/21 02:17> Surgical History: Surgical History History of gastric surgery <Idalia Longoria NP - Last Filed: 06/28/21 02:17> Family History Family History: Family History Father Lung cancer <Idalia Longoria NP - Last Filed: 06/28/21 02:17> Social History Social History: Social History Household Members: Spouse Housing: House Do you presently have visiting nurse or other home services: No Alcohol intake: never Patient Tobacco Use Status: Former Tobacco user Quit Date: 05/07/21 Tobacco use type: Cigarette Years Smoked: 2 Smoked in Last 30 Days: Yes Second Hand Smoke Exposure: No Use of substances other than those prescribed or required for medical reasons: No Advance Directives: No Patient : No service: No Current occupational status: employed <Idalia Longoria NP - Last Filed: 06/28/21 02:17> Physical Exam ED Vital Signs: Vital Signs - 24 hr 06/27/21 18:57 06/27/21 20:14 Temperature 98.6 F 97.4 F Pulse Rate 116 H 83 Respiratory Rate 18 16 Blood Pressure 170/90 H 120/68 Pulse Oximetry 100 98 BMI result Body Mass Index 37.2 <Idalia Longoria NP - Last Filed: 06/28/21 02:17> Appearance: Alert. Oriented X3. Intoxicated. Belligerent. Eyes: Pupils equal, round and reactive to light. Non icteric. ENT: Pharynx normal. Neck: Normal inspection. Neck supple. CVS: Normal heart rate and rhythm. Pulses normal. Respiratory: No respiratory distress. Breath sounds normal. Abdomen: Soft and nontender. Skin: Skin warm and dry. Normal skin color. Normal skin turgor. Extremities: No lower extremity edema. Moves all extremities against resistance. Neuro: No motor deficit. No sensory deficit. Cranial nerves 2-12 intact. <Idalia Longoria NP - Last Filed: 06/28/21 02:17> Course Course Course Narrative: 50-year-old female presents via EMS for alcohol intoxication, was supposed to go to detox at 17:00 however patient did not go and was drinking alcohol. Neighbor called police, police called EMS and have patient transferred to the hospital for evaluation. Patient is not suicidal or homicidal. Clearly intoxicated. Will order labs if patient complies. 20:12 patient continues to be belligerent, requesting pens, food, swearing at staff and this CAREER DEVELOPMENT CONSULTANT. Patient was reminded that she was in a hospital that need to speak to whomever she was speaking to on the phone in her room and not in the hallway. Patient dissatisfied with this suggestion. 20:27 patient continues to be belligerent. I did remind her that she needed to stay in this facility until her sober ride presents to this facility. Patient verbalized understanding Patient's family present pick patient up. <Idalia Longoria NP - Last Filed: 06/28/21 02:17> MDM - Alcohol Differential Diagnosis Differential diagnosis: Likely alcohol dependence and alcohol intoxication <Idalia Longoria NP - Last Filed: 06/28/21 02:17> Medical Records Attestation: I reviewed the patient's medical records. <Idalia Longoria NP - Last Filed: 06/28/21 02:17> Lab Data Attestation: I reviewed the patient's lab results. <Idalia Longoria NP - Last Filed: 06/28/21 02:17> Labs: Lab Results 06/27/21 06/27/21 Range/Units 19:56 19:56 Ethyl Alcohol 296 mg/dL COVID-19 ([facility]) Negative (Negative) COVID-19 Clin Com See Note <Idalia Longoria NP - Last Filed: 06/28/21 02:17> Discharge Plan Discharge Clinical Impression: Alcoholic intoxication <Idalia Longoria NP - Last Filed: 06/28/21 02:17> Patient Disposition: Home, Self-Care <Idalia Longoria NP - Last Filed: 06/28/21 02:17> Instructions: Alcohol Intoxication (ED), Abuse of Alcohol (ED), Abuse of Alcohol (DC), Alcohol Use Disorder (ED) <Idalia Longoria NP - Last Filed: 06/28/21 02:17> Additional Instructions: Follow-up with detox. Thank you for choosing this emergency department for evaluation. Please follow-up with primary care physician as needed. Return to the emergency department for any new, concerning, or worsening symptoms. <Idalia Longoria NP - Last Filed: 06/28/21 02:17> Prescriptions: No Action buprenorphine-naloxone 4-1 mg film 1 strip sublingual DAILY 0RF duloxetine 60 mg capsule,delayed release(DR/EC) 1 cap PO DAILY 0RF <JESSICA Ricketts Last Filed: 06/28/21 02:17> Interventions: ED Discharge Assessment Last Done: 06/27/21 20:50 <Idalia Longoria NP - Last Filed: 06/28/21 02:17> Discharge Date/Time: 06/27/21 20:51 <Idalia Longoria NP - Last Filed: 06/28/21 02:17>
[2021-06-27 18:57] VITALS: BP 170/90; PULSE 116; PULSE 98; RESP 18; TEMP 37; O2SAT 100; BMI 37.2
--- NOTE | 2021-06-27 19:43 | MHC.RECOVSUP ---
? Reason for consult:Recovery Support o ? ? ?Current location:[facility] o ? ? ?Identified substance use concern: Alcohol - Support ? ?Intervention: o Community resources provided o Harm reduction discussion ? Additional information:?I was able to connect with patient and review community options, harm reduction strategies and detox. Patient informed me she has a detox bed available at [facility] but they never came to pick her up. Patient was intoxication upon arrival and doesn't know why the police took her here. Patient wants to go home then to detox.
[2021-06-27 20:14] VITALS: BP 120/68; PULSE 83; RESP 16; TEMP 36.3; O2SAT 98
[2021-06-27 20:19] LABS: COVID-19 Test Negative (Negative)
[2021-06-27 20:24] LABS: Ethanol 296 mg/dL
--- NOTE | 2021-06-27 20:36 | PC.NURSE ---
Patient awaiting sober ride from her brother. Patient had a ride from [facility] who were going to transfer patient to the rehabilitaion facility but pt refusing to wait for that ride. Patient states she has to go home to get some stuff before she goes to rehab. Patient also stated that she lost an 85,000 page ring and then corrected herself and stated that it was a 5000 dollar page ring. She stated she wasn't sure where she lost it. Charge nurse made aware.
== END 2021-06-27 20:51 | disposition home or self-care (01) ==
PROVIDERS: Nurse Practitioner Family; Emergency Provider Emergency Medicine; PCP Internal Medicine
DX: F10.120 Alcohol abuse with intoxication, uncomplicated (principal); Y90.8 Blood alcohol level of 240 mg/100 ml or more; R45.6 Violent behavior; F11.20 Opioid dependence, uncomplicated
CPT/HCPCS: 36415; 82077; 87635; 99284

== ENCOUNTER 2022-02-03 06:39 | Emergency (ER) | payer BC, SELFPAY ==
--- NOTE | ~2022-02-03 | CT_ITS ---
EXAMINATION: CT ANGIOGRAM OF THE CHEST WITH CONTRAST (CT PULMONARY ANGIOGRAM FOR PE) CLINICAL INFORMATION: Shortness of breath. Evaluate for pulmonary embolism. COMPARISON: CXR from 02/03/2022. TECHNIQUE: Prior to contrast administration, noncontrast localization images were obtained. Subsequently, multidetector volumetric imaging was performed from the thoracic inlet to below the diaphragms following the administration of 65 mL Omnipaque 350 intravenous contrast. No contrast reaction reported. Sagittal, coronal, and MIP oblique sagittal reformatted images were obtained on the CT workstation, uploaded to PACS, and reviewed. This CT examination was performed using dose optimization techniques as appropriate, variously including the following: *Automated exposure control *Adjustment of mA and/or kV according to patient size (this includes techniques or standardized protocols for targeted exams where dose is matched to indication/reason for exam; i.e. extremities or head) *Use of iterative reconstruction technique DLP: Total exam dose-length product 368 mGy-cm FINDINGS: LUNGS AND PLEURA: Lungs are well expanded. No acute abnormalities are identified. No evidence of pulmonary edema, consolidation or pleural effusion. No pulmonary nodule or mass. QUALITY OF STUDY/CONTRAST BOLUS: Satisfactory. CARDIOVASCULAR: Pulmonary arteries are normal in size. No embolic filling defects in the main or lobar pulmonary arteries. Also, no emboli are seen within the segmental vessels, although evaluation of peripheral vessels is partially limited by image blurring from respiratory motion. The heart size is normal. No pericardial effusion. Thoracic aorta is normal. There is no aneurysm or dissection. MEDIASTINUM/LOWER NECK: No mediastinal mass. The esophagus has normal wall thickness. The visualized portion of the thyroid gland is unremarkable. LYMPHATICS: No pathologic sized axillary, hilar or mediastinal lymph nodes. UPPER ABDOMEN: No contrast reflux into the inferior vena cava. Diffuse hepatic steatosis and cholelithiasis. No gallbladder wall thickening or pericholecystic fluid. Adrenal glands are normal. Prior Luis Antonio-en-Y gastric bypass surgery. OSSEOUS STRUCTURES: No suspicious bone lesions. Multilevel osteophyte formation of the degenerated spine. The disc degenerative change is worst at the T10-T11 level. CT/CT angio chest PE protocol IMPRESSION: * No evidence of pulmonary embolism, pneumonia or pulmonary edema. * Diffuse hepatic steatosis and cholelithiasis..
--- NOTE | ~2022-02-03 | XR_ITS ---
EXAMINATION: XR CHEST CLINICAL INFORMATION: Shortness of breath COMPARISON: None TECHNIQUE: Frontal view of the chest was obtained. FINDINGS: Lungs are well expanded and clear. No pleural effusion or pneumothorax. Cardiac silhouette is normal in size. The hilar contours are normal. The pulmonary vascular pattern is normal. The visualized bones are intact. Mild dextroscoliosis and multilevel osteophyte formation of the degenerated thoracic spine. XR/XR chest 1V IMPRESSION: No acute pulmonary disease.
[2022-02-03 06:50] VITALS: BP 180/90; BP 91/48; PULSE 79; PULSE 98; RESP 30; TEMP 36.7; O2SAT 100; BMI 34.9
--- NOTE | 2022-02-03 07:07 | ED.SOB ---
HPI - SOB/Dyspnea General Chief Complaint: Dyspnea <Joe Simms MD - Last Filed: 02/03/22 09:09> Stated Complaint: SOB <Joe Simms MD - Last Filed: 02/03/22 09:09> Time Seen by Provider: 02/03/22 07:07 <Joe Simms MD - Last Filed: 02/03/22 09:09> Source: patient <Joe Simms MD - Last Filed: 02/03/22 09:09> Mode of arrival: EMS <Joe Simms MD - Last Filed: 02/03/22 09:09> Limitations: no limitations <Joe Simms MD - Last Filed: 02/03/22 09:09> History of Present Illness HPI Narrative: Patient history of depression anxiety history of substance abuse in the past on Suboxone had urinary symptoms for last 3 days called her PCP who prescribed her Macrobid today she woke up went to bathroom multiple times no dysuria that started feeling dizzy and short of breath unable to take deep breaths EMS came saturating 85% at room air very anxious patient said that because of shortness of breath she is very anxious. No fever no chills no cough no chest pain no leg swelling or pain no recent travel no estrogen intake <Joe Simms MD - Last Filed: 02/03/22 09:09> Related Data Home Medications: Home Medications Medication Instructions Recorded Confirmed buprenorphine 4 mg-naloxone 1 mg 1 strip sublingual DAILY 05/20/21 06/27/21 sublingual film duloxetine 60 mg capsule,delayed 1 cap PO DAILY 06/27/21 06/27/21 release <Joe Simms MD - Last Filed: 02/03/22 09:09> Allergies/Adverse Reactions: Allergies Allergy/AdvReac Type Severity Reaction Status Date / Time No Known Allergies Allergy Unverified 12/22/19 16:20 <Joe Simms MD - Last Filed: 02/03/22 09:09> Review of Systems Review of Systems: Yes all other systems are reviewed and are negative <Joe Simms MD - Last Filed: 02/03/22 09:09> [facility] Past Medical History Medical History: Medical History Alcohol abuse Alcohol use disorder, severe, dependence Encounter for monitoring Suboxone maintenance therapy Hypertension Opioid use disorder <Joe Simms MD - Last Filed: 02/03/22 09:09> Surgical History: Surgical History History of gastric surgery <Joe Simms MD - Last Filed: 02/03/22 09:09> Family History Family History: Family History Father Lung cancer <Joe Simms MD - Last Filed: 02/03/22 09:09> Social History Social History: Social History Household Members: Spouse Housing: House Do you presently have visiting nurse or other home services: No Alcohol intake: never Patient Tobacco Use Status: Former Tobacco user Quit Date: 05/07/21 Tobacco use type: Cigarette Years Smoked: 2 Second Hand Smoke Exposure: No Advance Directives: No Advance Directives Information Provided: No Patient : No service: No Current occupational status: employed <Joe Simms MD - Last Filed: 02/03/22 09:09> Physical Exam Vital Signs: Vital Signs: Last Vital Signs Temp 98.4 F 02/03/22 11:07 Pulse 80 02/03/22 11:07 Resp 18 02/03/22 11:07 BP 121/54 L 02/03/22 11:07 Pulse Ox 97 02/03/22 11:07 O2 Del Method 02/03/22 11:07 Oxygen Flow Rate 2 02/03/22 06:50 BMI result Body Mass Index 34.9 <Joe Simms MD - Last Filed: 02/03/22 09:09> Vital Signs: Last Vital Signs Temp 98.4 F 02/03/22 11:07 Pulse 80 02/03/22 11:07 Resp 18 02/03/22 11:07 BP 121/54 L 02/03/22 11:07 Pulse Ox 97 02/03/22 11:07 O2 Del Method 02/03/22 11:07 Oxygen Flow Rate 2 02/03/22 06:50 BMI result Body Mass Index 34.9 <Susu Pham MD - Last Filed: 02/03/22 12:07> Appearance: Alert. Oriented X3. Very anxious Eyes: PERRLA, No Nystagmus ENT: Pharynx normal. Oral Mucosa moist Neck: Normal inspection. Neck supple. CVS: Normal heart rate and rhythm. Pulses normal. Respiratory: No respiratory distress. Equal air entry bilateral, no wheezing/rales/rhonchi Abdomen: Soft and nontender. Bowel sounds are present, no mass palpable, no CVA tenderness Skin: Skin warm and dry. Normal skin color. Normal skin turgor. Extremities: No lower extremity edema. No calf tenderness Neuro: Oriented X 3. No motor deficit. <Joe Simms MD - Last Filed: 02/03/22 09:09> Course Reevaluation(s) Reevaluation #1: 51-year-old female who was signed out to me for shortness of breath, she has been completely worked up to include D-dimer and CT angio to rule out PE with a negative workup. Suspect this may be secondary to underlying anxiety and on review of prior workup patient has been noted to be seen for alcohol intoxication. Will evaluate for possible alcohol withdrawal. BAL will be sent and a CIWA score obtained to make sure that patient is safe discharge. <Susu Pham MD - Last Filed: 02/03/22 12:07> Time: 10:43 <Susu Pham MD - Last Filed: 02/03/22 12:07> Reevaluation #2: BAL less than 10, patient is not interested in detox and further provides information stating that she did consume alcohol last night. She states that she does not feel like she is in DTs at this time. However, patient was provided with 10 mg of Librium and she will call her for transportation home. She is otherwise discharged home <Susu Pham MD - Last Filed: 02/03/22 12:07> Time: 12:05 <Susu Pham MD - Last Filed: 02/03/22 12:07> MDM - SOB/Dyspnea MDM Narrative Medical decision making narrative: 9 amPatient with acute shortness of breath D-dimer 250 will do CTA chest to rule out PE, UA is also pending signed out to Dr. Pham for further evaluation and disposition <Joe Simms MD - Last Filed: 02/03/22 09:09> Lab Data Result diagrams: : 02/03/22 07:42 02/03/22 07:42 <Joe Simms MD - Last Filed: 02/03/22 09:09> Labs: Lab Results 02/03/22 02/03/22 02/03/22 Range/Units 07:42 07:42 07:42 WBC 4.9 (4.8-10.8) X10*3/uL RBC 3.60 L (4.20-5.50) X10*6/uL Hgb 10.9 L (12.0-16.0) g/dl Hct 31.2 L (37.0-47.0) % MCV 86.7 (80.0-98.0) fL MCH 30.3 (27.0-33.0) pg MCHC 34.9 (31.0-35.0) g/dl RDW 19.2 H (11.0-16.0) % Plt Count 173 D (160-400) X10*3/uL MPV 9.6 (9.4-12.3) fL Immature Gran % (Auto) 0.2 (0.0-0.4) % Neut % (Auto) 79.3 H (45-73) % Lymph % (Auto) 9.0 L (20-40) % [place] % (Auto) 8.2 (2-11) % Eos % (Auto) 2.9 (0-4) % Baso % (Auto) 0.4 (0-2) % Lymph # (Auto) 0.4 L (1.2-4.9) X10*3/uL [place] # (Auto) 0.4 (0.1-1.2) X10*3/uL Eos # (Auto) 0.1 (0.0-0.4) X10*3/uL Baso # (Auto) 0.0 (0.0-0.2) X10*3/uL Abs Immat Gran (auto) 0.01 (0.00-0.03) X10*3/uL Absolute Neuts (auto) 3.9 (2.0-8.3) x10*3/uL Absolute Nucleated RBC 0.000 (0.0-0.012) X10*3/uL Nucleated RBC % (auto) 0.0 (0.0-0.2) /100WBC D-Dimer High Sensitivty 250 NG/ML Sodium 136 (135-145) mmol/L Potassium 4.3 (3.3-5.1) mmol/L Chloride 98 (96-108) mmol/L Carbon Dioxide 23 (22-29) mmol/L Anion Gap 19 (12-20) BUN 7 L (9-16) mg/dL Creatinine 0.70 (0.5-1.4) mg/dL Estim Creat Clear Calc 98.5 Estimated GFR > 60 Random Glucose 87 (60-115) mg/dL Calcium 8.8 (8.4-10.2) mg/dL Troponin I High Sens (<3.5-17.0) ng/L B-Natriuretic Peptide (<100) pg/mL Urine Color Urine Appearance Urine pH (5.0-9.0) Ur Specific [place] (1.005-1.025) Urine Protein (Neg-Trace) mg/dL Urine Glucose (UA) (Negative) mg/dL Urine Ketones (Negative) mg/dL Urine Blood (Negative) Urine Nitrite (Negative) Ur Leukocyte Esterase (Negative) Ethyl Alcohol < 10 mg/dL Influenza Type A (PCR) (Negative) Influenza Type B (PCR) (Negative) RSV RNA Qual (PCR) (Negative) SARS-CoV-2 RNA (RT-PCR) (Negative) 02/03/22 02/03/22 02/03/22 Range/Units 07:42 07:42 08:00 WBC (4.8-10.8) X10*3/uL RBC (4.20-5.50) X10*6/uL Hgb (12.0-16.0) g/dl Hct (37.0-47.0) % MCV (80.0-98.0) fL MCH (27.0-33.0) pg MCHC (31.0-35.0) g/dl RDW (11.0-16.0) % Plt Count (160-400) X10*3/uL MPV (9.4-12.3) fL Immature Gran % (Auto) (0.0-0.4) % Neut % (Auto) (45-73) % Lymph % (Auto) (20-40) % [place] % (Auto) (2-11) % Eos % (Auto) (0-4) % Baso % (Auto) (0-2) % Lymph # (Auto) (1.2-4.9) X10*3/uL [place] # (Auto) (0.1-1.2) X10*3/uL Eos # (Auto) (0.0-0.4) X10*3/uL Baso # (Auto) (0.0-0.2) X10*3/uL Abs Immat Gran (auto) (0.00-0.03) X10*3/uL Absolute Neuts (auto) (2.0-8.3) x10*3/uL Absolute Nucleated RBC (0.0-0.012) X10*3/uL Nucleated RBC % (auto) (0.0-0.2) /100WBC D-Dimer High Sensitivty NG/ML Sodium (135-145) mmol/L Potassium (3.3-5.1) mmol/L Chloride (96-108) mmol/L Carbon Dioxide (22-29) mmol/L Anion Gap (12-20) BUN (9-16) mg/dL Creatinine (0.5-1.4) mg/dL Estim Creat Clear Calc Estimated GFR Random Glucose (60-115) mg/dL Calcium (8.4-10.2) mg/dL Troponin I High Sens 6.8 (<3.5-17.0) ng/L B-Natriuretic Peptide 16 (<100) pg/mL Urine Color Urine Appearance Urine pH (5.0-9.0) Ur Specific [place] (1.005-1.025) Urine Protein (Neg-Trace) mg/dL Urine Glucose (UA) (Negative) mg/dL Urine Ketones (Negative) mg/dL Urine Blood (Negative) Urine Nitrite (Negative) Ur Leukocyte Esterase (Negative) Ethyl Alcohol mg/dL Influenza Type A (PCR) NEGATIVE (Negative) Influenza Type B (PCR) NEGATIVE (Negative) RSV RNA Qual (PCR) NEGATIVE (Negative) SARS-CoV-2 RNA (RT-PCR) NEGATIVE (Negative) 02/03/22 Range/Units 09:25 WBC (4.8-10.8) X10*3/uL RBC (4.20-5.50) X10*6/uL Hgb (12.0-16.0) g/dl Hct (37.0-47.0) % MCV (80.0-98.0) fL MCH (27.0-33.0) pg MCHC (31.0-35.0) g/dl RDW (11.0-16.0) % Plt Count (160-400) X10*3/uL MPV (9.4-12.3) fL Immature Gran % (Auto) (0.0-0.4) % Neut % (Auto) (45-73) % Lymph % (Auto) (20-40) % [place] % (Auto) (2-11) % Eos % (Auto) (0-4) % Baso % (Auto) (0-2) % Lymph # (Auto) (1.2-4.9) X10*3/uL [place] # (Auto) (0.1-1.2) X10*3/uL Eos # (Auto) (0.0-0.4) X10*3/uL Baso # (Auto) (0.0-0.2) X10*3/uL Abs Immat Gran (auto) (0.00-0.03) X10*3/uL Absolute Neuts (auto) (2.0-8.3) x10*3/uL Absolute Nucleated RBC (0.0-0.012) X10*3/uL Nucleated RBC % (auto) (0.0-0.2) /100WBC D-Dimer High Sensitivty NG/ML Sodium (135-145) mmol/L Potassium (3.3-5.1) mmol/L Chloride (96-108) mmol/L Carbon Dioxide (22-29) mmol/L Anion Gap (12-20) BUN (9-16) mg/dL Creatinine (0.5-1.4) mg/dL Estim Creat Clear Calc Estimated GFR Random Glucose (60-115) mg/dL Calcium (8.4-10.2) mg/dL Troponin I High Sens (<3.5-17.0) ng/L B-Natriuretic Peptide (<100) pg/mL Urine Color Yellow Urine Appearance Clear Urine pH 5.5 (5.0-9.0) Ur Specific [place] 1.010 (1.005-1.025) Urine Protein Negative (Neg-Trace) mg/dL Urine Glucose (UA) Negative (Negative) mg/dL Urine Ketones Negative (Negative) mg/dL Urine Blood Negative (Negative) Urine Nitrite Negative (Negative) Ur Leukocyte Esterase Negative (Negative) Ethyl Alcohol mg/dL Influenza Type A (PCR) (Negative) Influenza Type B (PCR) (Negative) RSV RNA Qual (PCR) (Negative) SARS-CoV-2 RNA (RT-PCR) (Negative) <Joe Simms MD - Last Filed: 02/03/22 09:09> Lab Results 02/03/22 02/03/22 02/03/22 Range/Units 07:42 07:42 07:42 WBC 4.9 (4.8-10.8) X10*3/uL RBC 3.60 L (4.20-5.50) X10*6/uL Hgb 10.9 L (12.0-16.0) g/dl Hct 31.2 L (37.0-47.0) % MCV 86.7 (80.0-98.0) fL MCH 30.3 (27.0-33.0) pg MCHC 34.9 (31.0-35.0) g/dl RDW 19.2 H (11.0-16.0) % Plt Count 173 D (160-400) X10*3/uL MPV 9.6 (9.4-12.3) fL Immature Gran % (Auto) 0.2 (0.0-0.4) % Neut % (Auto) 79.3 H (45-73) % Lymph % (Auto) 9.0 L (20-40) % [place] % (Auto) 8.2 (2-11) % Eos % (Auto) 2.9 (0-4) % Baso % (Auto) 0.4 (0-2) % Lymph # (Auto) 0.4 L (1.2-4.9) X10*3/uL [place] # (Auto) 0.4 (0.1-1.2) X10*3/uL Eos # (Auto) 0.1 (0.0-0.4) X10*3/uL Baso # (Auto) 0.0 (0.0-0.2) X10*3/uL Abs Immat Gran (auto) 0.01 (0.00-0.03) X10*3/uL Absolute Neuts (auto) 3.9 (2.0-8.3) x10*3/uL Absolute Nucleated RBC 0.000 (0.0-0.012) X10*3/uL Nucleated RBC % (auto) 0.0 (0.0-0.2) /100WBC D-Dimer High Sensitivty 250 NG/ML Sodium 136 (135-145) mmol/L Potassium 4.3 (3.3-5.1) mmol/L Chloride 98 (96-108) mmol/L Carbon Dioxide 23 (22-29) mmol/L Anion Gap 19 (12-20) BUN 7 L (9-16) mg/dL Creatinine 0.70 (0.5-1.4) mg/dL Estim Creat Clear Calc 98.5 Estimated GFR > 60 Random Glucose 87 (60-115) mg/dL Calcium 8.8 (8.4-10.2) mg/dL Troponin I High Sens (<3.5-17.0) ng/L B-Natriuretic Peptide (<100) pg/mL Urine Color Urine Appearance Urine pH (5.0-9.0) Ur Specific [place] (1.005-1.025) Urine Protein (Neg-Trace) mg/dL Urine Glucose (UA) (Negative) mg/dL Urine Ketones (Negative) mg/dL Urine Blood (Negative) Urine Nitrite (Negative) Ur Leukocyte Esterase (Negative) Ethyl Alcohol < 10 mg/dL Influenza Type A (PCR) (Negative) Influenza Type B (PCR) (Negative) RSV RNA Qual (PCR) (Negative) SARS-CoV-2 RNA (RT-PCR) (Negative) 02/03/22 02/03/22 02/03/22 Range/Units 07:42 07:42 08:00 WBC (4.8-10.8) X10*3/uL RBC (4.20-5.50) X10*6/uL Hgb (12.0-16.0) g/dl Hct (37.0-47.0) % MCV (80.0-98.0) fL MCH (27.0-33.0) pg MCHC (31.0-35.0) g/dl RDW (11.0-16.0) % Plt Count (160-400) X10*3/uL MPV (9.4-12.3) fL Immature Gran % (Auto) (0.0-0.4) % Neut % (Auto) (45-73) % Lymph % (Auto) (20-40) % [place] % (Auto) (2-11) % Eos % (Auto) (0-4) % Baso % (Auto) (0-2) % Lymph # (Auto) (1.2-4.9) X10*3/uL [place] # (Auto) (0.1-1.2) X10*3/uL Eos # (Auto) (0.0-0.4) X10*3/uL Baso # (Auto) (0.0-0.2) X10*3/uL Abs Immat Gran (auto) (0.00-0.03) X10*3/uL Absolute Neuts (auto) (2.0-8.3) x10*3/uL Absolute Nucleated RBC (0.0-0.012) X10*3/uL Nucleated RBC % (auto) (0.0-0.2) /100WBC D-Dimer High Sensitivty NG/ML Sodium (135-145) mmol/L Potassium (3.3-5.1) mmol/L Chloride (96-108) mmol/L Carbon Dioxide (22-29) mmol/L Anion Gap (12-20) BUN (9-16) mg/dL Creatinine (0.5-1.4) mg/dL Estim Creat Clear Calc Estimated GFR Random Glucose (60-115) mg/dL Calcium (8.4-10.2) mg/dL Troponin I High Sens 6.8 (<3.5-17.0) ng/L B-Natriuretic Peptide 16 (<100) pg/mL Urine Color Urine Appearance Urine pH (5.0-9.0) Ur Specific [place] (1.005-1.025) Urine Protein (Neg-Trace) mg/dL Urine Glucose (UA) (Negative) mg/dL Urine Ketones (Negative) mg/dL Urine Blood (Negative) Urine Nitrite (Negative) Ur Leukocyte Esterase (Negative) Ethyl Alcohol mg/dL Influenza Type A (PCR) NEGATIVE (Negative) Influenza Type B (PCR) NEGATIVE (Negative) RSV RNA Qual (PCR) NEGATIVE (Negative) SARS-CoV-2 RNA (RT-PCR) NEGATIVE (Negative) 02/03/22 Range/Units 09:25 WBC (4.8-10.8) X10*3/uL RBC (4.20-5.50) X10*6/uL Hgb (12.0-16.0) g/dl Hct (37.0-47.0) % MCV (80.0-98.0) fL MCH (27.0-33.0) pg MCHC (31.0-35.0) g/dl RDW (11.0-16.0) % Plt Count (160-400) X10*3/uL MPV (9.4-12.3) fL Immature Gran % (Auto) (0.0-0.4) % Neut % (Auto) (45-73) % Lymph % (Auto) (20-40) % [place] % (Auto) (2-11) % Eos % (Auto) (0-4) % Baso % (Auto) (0-2) % Lymph # (Auto) (1.2-4.9) X10*3/uL [place] # (Auto) (0.1-1.2) X10*3/uL Eos # (Auto) (0.0-0.4) X10*3/uL Baso # (Auto) (0.0-0.2) X10*3/uL Abs Immat Gran (auto) (0.00-0.03) X10*3/uL Absolute Neuts (auto) (2.0-8.3) x10*3/uL Absolute Nucleated RBC (0.0-0.012) X10*3/uL Nucleated RBC % (auto) (0.0-0.2) /100WBC D-Dimer High Sensitivty NG/ML Sodium (135-145) mmol/L Potassium (3.3-5.1) mmol/L Chloride (96-108) mmol/L Carbon Dioxide (22-29) mmol/L Anion Gap (12-20) BUN (9-16) mg/dL Creatinine (0.5-1.4) mg/dL Estim Creat Clear Calc Estimated GFR Random Glucose (60-115) mg/dL Calcium (8.4-10.2) mg/dL Troponin I High Sens (<3.5-17.0) ng/L B-Natriuretic Peptide (<100) pg/mL Urine Color Yellow Urine Appearance Clear Urine pH 5.5 (5.0-9.0) Ur Specific [place] 1.010 (1.005-1.025) Urine Protein Negative (Neg-Trace) mg/dL Urine Glucose (UA) Negative (Negative) mg/dL Urine Ketones Negative (Negative) mg/dL Urine Blood Negative (Negative) Urine Nitrite Negative (Negative) Ur Leukocyte Esterase Negative (Negative) Ethyl Alcohol mg/dL Influenza Type A (PCR) (Negative) Influenza Type B (PCR) (Negative) RSV RNA Qual (PCR) (Negative) SARS-CoV-2 RNA (RT-PCR) (Negative) <Susu Pham MD - Last Filed: 02/03/22 12:07> Discharge Plan Discharge Clinical Impression: Alcohol use disorder, Anxiety <Joe Simms MD - Last Filed: 02/03/22 09:09> Patient Disposition: Home, Self-Care <Joe Simms MD - Last Filed: 02/03/22 09:09> Instructions: Alcohol Use Disorder (ED), Anxiety (ED) <Joe Simms MD - Last Filed: 02/03/22 09:09> Additional Instructions: Any time you wish to stop your use of alcohol please do not hesitate to return to the emergency room for assistance. Your workup today did not demonstrate any acute findings to better explain your symptoms but suspect this may have been a component of anxiety. <Joe Simms MD - Last Filed: 02/03/22 09:09> Prescriptions: No Action buprenorphine-naloxone 4-1 mg film 1 strip sublingual DAILY duloxetine 60 mg capsule,delayed release(DR/EC) 1 cap PO DAILY <Joe Simms MD - Last Filed: 02/03/22 09:09>
--- NOTE | 2022-02-03 07:09 | ECG_ITS ---
Test Reason : dyspnea Blood Pressure : / mmHG Vent. Rate : 073 BPM Atrial Rate : 073 BPM P-R Int : 162 ms QRS Dur : 080 ms QT Int : 458 ms P-R-T Axes : 035 014 014 degrees QTc Int : 504 ms Normal sinus rhythm Nonspecific ST abnormality Borderline ECG No previous ECGs available Referred By: Joe Simms Electronically Signed By:CHAI BOLANOS MD
[2022-02-03] MEDS: Midazolam HCl/PF 2 MG/2 ML VIAL 1 MG IVPUSH (07:46)
[2022-02-03 07:50] LABS: Basophils Percent Auto 0.4 % (0-2); Eosinophils Absolute Auto 0.1 X10*3/uL (0.0-0.4); Eosinophils Percent Auto 2.9 % (0-4); Hematocrit 31.2 % (37.0-47.0); Hemoglobin 10.9 g/dl (12.0-16.0); Imm Gran Abs Auto 0.01 X10*3/uL (0.00-0.03); Imm Gran Pct Auto 0.2 % (0.0-0.4); Lymphocytes Absolute Auto 0.4 X10*3/uL (1.2-4.9); MANUAL DIFF FLAG NO; Mean Corpuscular HGB Conc 34.9 g/dl (31.0-35.0); Mean Corpuscular Hemoglobin 30.3 pg (27.0-33.0); Mean Corpuscular Volume 86.7 fL (80.0-98.0); Mean Platelet Volume 9.6 fL (9.4-12.3); Monocytes Absolute Auto 0.4 X10*3/uL (0.1-1.2); Monocytes Percent Auto 8.2 % (2-11); Neutrophils Absolute Auto 3.9 x10*3/uL (2.0-8.3); Neutrophils Percent Auto 79.3 % (45-73); Platelet Count 173 X10*3/uL (160-400); Red Cell Distribution Width 19.2 % (11.0-16.0); White Blood Count 4.9 X10*3/uL (4.8-10.8)
[2022-02-03 08:01] LABS: D Dimer High Sensitivity 250 NG/ML
[2022-02-03 08:07] LABS: Anion Gap 19 (12-20); Blood Urea Nitrogen 7 mg/dL (9-16); Calcium 8.8 mg/dL (8.4-10.2); Carbon Dioxide 23 mmol/L (22-29); Chloride 98 mmol/L (96-108); Creatinine Clr Calc Pharmacy 98.5; Estimated Glomerular Filt Rate > 60; Glucose Random 87 mg/dL (60-115); Potassium 4.3 mmol/L (3.3-5.1); Sodium 136 mmol/L (135-145)
[2022-02-03 08:10] LABS: B Type Natriuretic Peptide 16 pg/mL (<100); Troponin-I High Sensitivity 6.8 ng/L (<3.5-17.0)
[2022-02-03 08:45] LABS: Influenza A PCR NEGATIVE (Negative); Influenza B PCR NEGATIVE (Negative); Resp Syncy Virus RNA Qual PCR NEGATIVE (Negative); SARS COV2 PCR INHOUSE NEGATIVE (Negative)
[2022-02-03 09:46] LABS: Appearance Urine Clear; Color Urine Yellow; Glucose Urine UA Negative (Negative); Leukocyte Esterase Urine Negative (Negative); Nitrite Urine Negative (Negative); PH 5.5 (5.0-9.0); Urine Blood Negative (Negative); Urine Ketones Negative (Negative); Urine Protein Negative (Neg-Trace)
[2022-02-03] MEDS: iohexoL 350 MG/ML 100 ML INFUS..BTL IV (10:03)
[2022-02-03 11:07] VITALS: BP 121/54; PULSE 80; RESP 18; TEMP 36.9; O2SAT 97
[2022-02-03 11:57] LABS: Ethanol < 10 mg/dL
[2022-02-03] MEDS: chlordiazePOXIDE HCl 5 MG CAPSULE 10 MG PO (12:16)
== END 2022-02-03 12:31 | disposition home or self-care (01) ==
PROVIDERS: Internal Medicine; Emergency Provider Student in an Organized Health Care Education/Training Program
DX: R06.02 Shortness of breath (principal); F10.10 Alcohol abuse, uncomplicated; Y90.0 Blood alcohol level of less than 20 mg/100 ml; F41.1 Generalized anxiety disorder; F43.0 Acute stress reaction; Z20.822 Contact with and (suspected) exposure to COVID-19; Z79.899 Other long term (current) drug therapy
CPT/HCPCS: 0241U; 36415; 71045; 71275; 80048; 81003; 82077; 83880; 84484; 85025; 85379; 93005; 96374; 99284; 99285; J2250; Q9967

== ENCOUNTER 2022-07-18 13:45 | Emergency (ER) | payer BC, SELFPAY ==
[2022-07-18 13:52] VITALS: BP 106/63; BP 140/80; PULSE 75; PULSE 90; RESP 20; TEMP 37.2; O2SAT 92; O2SAT 96; BMI 36.6
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
[2022-07-18 17:34] LABS: Amphetamine Screen Urine Not Detected (Not Detect); Barbiturates, Urine Not Detected (Not Detect); Benzodiazepines Screen Urine POSITIVE (Not Detect); Cannabinoid Screen Urine Not Detected (Not Detect); Cocaine Screen Urine Not Detected (Not Detect); Fentanyl, urine Not Detected (Not Detect); Opiate Screen Urine Not Detected (Not Detect); Phencyclidine Screen Urine Not Detected (Not Detect)
[2022-07-18 17:53] LABS: COVID-19 Test Negative (Negative); IDNOW Serial# 08D9AD1C
--- NOTE | 2022-07-18 18:09 | MHC.EDTECH ---
UPON DRAWING PT LABS, PT WANTED TO KNOW WHAT THE TESTS ARE FOR. THIS PCT INFORMED PT WHAT TESTS ARE FOR AND PT REFUSED TO HAVE BLOOD DRAWN IF ETOH LEVEL IS BEING DONE. THIS PCT INFORMED PT THAT THE PROCESS WILL TAKE LONGER IF ETOH LEVEL IS NOT DONE AND PT STILL REFUSED. LABS WERE DRAWN WITHOUT COLLECTING ETOH LEVEL SPECIMEN TUBE. TEST IS STILL ABLE TO BE DONE ON SPECIMEN TUBE THAT WAS SENT DOWN IF PT BECOMES AGREEABLE. RN MADE AWARE.
[2022-07-18 18:21] LABS: MANUAL DIFF FLAG NO
[2022-07-18 18:43] LABS: Alanine Aminotransferase 24 U/L (0-31); Albumin Level 3.8 g/dL (3.5-5.0); Alkaline Phosphatase 96 U/L (39-117); Anion Gap 13 (12-20); Aspartate Amino Transferase 44 U/L (5-31); Bilirubin Total 0.3 mg/dL (0.0-1.0); Blood Urea Nitrogen 9 mg/dL (9-16); Calcium 8.8 mg/dL (8.4-10.2); Carbon Dioxide 28 mmol/L (22-29); Chloride 106 mmol/L (96-108); Creatinine Clr Calc Pharmacy 113.6; Estimated Glomerular Filt Rate > 60; Glucose Random 105 mg/dL (60-115); Potassium 4.5 mmol/L (3.3-5.1); Sodium 142 mmol/L (135-145); Total Protein 6.1 g/dL (6.5-8.0)
[2022-07-18 18:45] LABS: Basophils Percent Auto 0.7 % (0-2); Eosinophils Absolute Auto 0.1 X10*3/uL (0.0-0.4); Hematocrit 35.4 % (37.0-47.0); Hemoglobin 11.6 g/dl (12.0-16.0); Imm Gran Abs Auto 0.02 X10*3/uL (0.00-0.03); Imm Gran Pct Auto 0.5 % (0.0-0.4); Lymphocytes Absolute Auto 1.1 X10*3/uL (1.2-4.9); Lymphocytes Percent Auto 27.5 % (20-40); Mean Corpuscular HGB Conc 32.8 g/dl (31.0-35.0); Mean Corpuscular Hemoglobin 29.2 pg (27.0-33.0); Mean Corpuscular Volume 89.2 fL (80.0-98.0); Mean Platelet Volume 9.3 fL (9.4-12.3); Monocytes Absolute Auto 0.4 X10*3/uL (0.1-1.2); Monocytes Percent Auto 10.8 % (2-11); Neutrophils Absolute Auto 2.4 x10*3/uL (2.0-8.3); Neutrophils Percent Auto 58.5 % (45-73); Platelet Count 504 X10*3/uL (160-400); Red Blood Count 3.97 X10*6/uL (4.20-5.50); Red Cell Distribution Width 14.9 % (11.0-16.0); White Blood Count 4.1 X10*3/uL (4.8-10.8)
[2022-07-18 19:16] LABS: Ethanol 221 mg/dL
[2022-07-18] MEDS: Gabapentin 600 MG TABLET PO (21:08)
[2022-07-18] MEDS: Buprenorphine/Naloxone 8/2 mg FILM 1 FILM SUBLINGUAL (21:08)
[2022-07-18] MEDS: DULoxetine HCl 60 MG CAPSULE.DR PO (21:08)
[2022-07-18 21:10] VITALS: BP 114/68; PULSE 79; RESP 18; TEMP 37.6; O2SAT 99
--- NOTE | 2022-07-19 05:32 | PC.NURSE ---
Patient slept through the night, no distress observed/reported, medication compliant, behavior non concerning, labs completed/resulted, disposition per care team is section 12 inpatient bed search, asymptomatic of ETOH withdrawal at this time, VSS, will continue to monitor.
[2022-07-19 06:22] VITALS: BP 127/87; PULSE 69; RESP 18; TEMP 37; O2SAT 95
[2022-07-19 09:00] VITALS: BP 140/78; PULSE 80; RESP 16
[2022-07-19 09:23] VITALS: BP 135/72; PULSE 85; RESP 16; O2SAT 97
[2022-07-19] MEDS: DULoxetine HCl 60 MG CAPSULE.DR PO (09:54)
[2022-07-19] MEDS: Buprenorphine/Naloxone 8/2 mg FILM 1 FILM SUBLINGUAL (09:54)
[2022-07-19] MEDS: Gabapentin 600 MG TABLET PO (09:55)
--- NOTE | 2022-07-19 11:20 | PC.NURSE ---
Relaxing in room, calm, able to make her needs known, denies signs and symptoms of withdrawal, only drank one day i am ok i want to go home Denies SI HI AVH or thoughts of self or other harm. Spoke with sister on phone, Taking fluids, no appetite at this time. Alert, oriented, ambulatory. denies pain.
[2022-07-19 12:00] VITALS: BP 138/70; PULSE 78; RESP 16; TEMP 36.6; O2SAT 96
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
== END 2022-07-19 14:44 | disposition home or self-care (01) ==
PROVIDERS: Emergency Provider Emergency Medicine
DX: F10.220 Alcohol dependence with intoxication, uncomplicated (principal); Y90.7 Blood alcohol level of 200-239 mg/100 ml; R45.851 Suicidal ideations; I10 Essential (primary) hypertension; F11.20 Opioid dependence, uncomplicated; Z79.899 Other long term (current) drug therapy; Z20.822 Contact with and (suspected) exposure to COVID-19
CPT/HCPCS: 36415; 80053; 80307; 82077; 85025; 87635; 99285; S9485

== ENCOUNTER 2023-03-26 10:23 | Emergency (ER) | payer BC, SELFPAY ==
[2023-03-26 10:38] VITALS: BP 142/110; PULSE 107; O2SAT 99; BMI 36.3
--- NOTE | 2023-03-26 10:48 | ED_ITS ---
HPI - Alcohol General Chief Complaint: ETOH/Substance Use Stated Complaint: ERRATIC BEHAVIOR,VIOLENT W/FAMILY,ETOH USE Time Seen by Provider: 03/26/23 10:28 Source: patient Mode of arrival: EMS Limitations: other (Acute alcohol intoxication) History of Present Illness HPI narrative: 52-year-old female with history of depression, anxiety, alcohol use disorder, opiate use disorder who was brought to emergency department by EMS for evaluation of aggressive behavior after drinking alcohol this morning. Patient states that she was drinking vodka and beer. The patient's was concerned about the patient's aggressive behavior therefore he called an ambulance to have her evaluated in the emergency department. On arrival to the emergency department the patient was agitated, angry, uncooperative, yelling profanities and initially not cooperating. Patient was covered in feces. She states that she was withdrawing from Suboxone however she is not taking Suboxone for over 2 weeks. The patient told the surgical services coordinator that she lost her license secondary to alcohol intoxication and was not able to drive the [place] to get her Suboxone prescription. Related Data Home Medications Medication Instructions Recorded Confirmed buprenorphine 8 mg-naloxone 2 mg 1 film sublingual BID 07/18/22 07/18/22 sublingual film duloxetine 60 mg capsule,delayed 60 mg PO BID 07/18/22 07/18/22 release gabapentin 600 mg tablet 600 mg PO TID 07/18/22 07/18/22 Previous Rx's Medication Instructions Recorded buprenorphine 4 mg-naloxone 1 mg 1 film buccal Q24H 5 days #5 ea 03/26/23 sublingual film (Suboxone) Allergies Allergy/AdvReac Type Severity Reaction Status Date / Time No Known Allergies Allergy Unverified 12/22/19 16:20 Review of Systems 2 Review of Systems: Yes all other systems are reviewed and are negative [facility] Past Medical History Medical History Encounter for monitoring Suboxone maintenance therapy Hypertension Alcohol use disorder, severe, dependence Opioid use disorder Alcohol abuse Surgical History History of gastric surgery Family History Family History Father Lung cancer Social History Social History Household Members: Spouse Housing: House Do you presently have visiting nurse or other home services: No Alcohol intake: current Alcohol intake frequency: 3 or more drinks per day Alcohol type: beer and hard liquor Patient Tobacco Use Status: Former Tobacco user Quit Date: 05/07/21 Tobacco use type: Cigarette Years Smoked: 2 Second Hand Smoke Exposure: No service: No Current occupational status: employed Physical Exam ED Vital Signs: Vital Signs - 24 hr 03/26/23 12:25 Temperature 98.3 F Pulse Rate 93 Respiratory Rate 20 Blood Pressure 143/93 H Pulse Oximetry 96 Oxygen Delivery Method Room Air BMI result Body Mass Index 36.3 Vital signs revealed an elevated respiratory rate of 29 elevated pulse of 140 3/93 Exam: General: Awake, acutely intoxicated, uncooperative , yelling profanities and yelling at the nursing staff Head: Normocephalic, atraumatic EENT: PERRL, Lids normal, sclera normal, conjunctiva normal, nose normal , ears normal, throat without erythema or exudates Neck: Supple, no adenopathy, no trachea midline or C-spine tenderness Lung: breath sounds symmetric, no wheezing, rales or rhonchi Chest: symmetric movement, nontender Heart: regular rate and rhythm, normal S1, S2 no murmurs or rubs Abdomen: soft, non-tender, nondistended, normal bowel sounds Back: no vertebral tenderness, no CVAT Extremities: no deformities, moves all extremities symmetrically Neuro: Awake, alert, oriented, normal speech, cranial nerves intact, moves all extremities symmetrically Medical Decision Making Medical Decision Making MDM Narrative: 52-year-old female with history of depression, anxiety, alcohol use disorder, opiate use disorder who was brought to emergency department by EMS for evaluation of aggressive behavior after drinking alcohol this morning. Patient was also complaining of withdrawing from Suboxone but her last dose was at least 2 weeks prior. Patient was uncooperative her behavior was consistent with acute alcohol intoxication. Vital signs were normal Following evaluation was ordered: CBC, CMP, ethanol level, COVID-19, flu, RSV Patient was treated with the following medications: Zyprexa 10 mg orally, Librium 25 mg orally, Suboxone 4 mg/1 mg sublingually 14:57 My independent interpretation patient's laboratory evaluation as follows: Chronic normocytic anemia with an H&H of 11.7 and 34.2. Bicarb low 20. AST, ALT and alkaline phosphatase were elevated 402, 246 and 342-this is most likely secondary to alcoholic hepatitis. Ethanol level was elevated 331 consistent with acute alcohol intoxication. Patient's significantly calmer after receiving the above medication. Patient was seen by our surgical services coordinator who determined that the patient does not want alcohol detox at this time. Patient was seen by our care team who recommended starting the patient on Suboxone 4 mg/1 mg daily-I will write a prescription for 5 days supply. Patient with an follow-up with our [facility] on 03/2026 13:45 to mo with Yazmin Mckinnon RN our custom framing specialist. Patient will be discharged home. Differential Diagnosis Differential Diagnoses: The differential diagnosis associated with the presentation includes Differential diagnosis includes was not limited to acute alcohol intoxication, polysubstance use, electrolyte abnormality, anemia, liver disease Lab Data 03/26/23 11:50 03/26/23 11:50 Labs: Lab Results 03/26/23 Range/Units 11:50 WBC 4.8 (4.8-10.8) X10*3/uL RBC 3.77 L (4.20-5.50) X10*6/uL Hgb 11.7 L (12.0-16.0) g/dl Hct 34.2 L (37.0-47.0) % MCV 90.7 (80.0-98.0) fL MCH 31.0 (27.0-33.0) pg MCHC 34.2 (31.0-35.0) g/dl RDW 20.1 H (11.0-16.0) % Plt Count 291 D (160-400) X10*3/uL MPV 9.6 (9.4-12.3) fL Immature Gran % (Auto) 1.0 H (0.0-0.4) % Neut % (Auto) 72.0 (45-73) % Lymph % (Auto) 17.6 L (20-40) % Loving % (Auto) 6.5 (2-11) % Eos % (Auto) 1.9 (0-4) % Baso % (Auto) 1.0 (0-2) % Lymph # (Auto) 0.8 L (1.2-4.9) X10*3/uL Loving # (Auto) 0.3 (0.1-1.2) X10*3/uL Eos # (Auto) 0.1 (0.0-0.4) X10*3/uL Baso # (Auto) 0.1 (0.0-0.2) X10*3/uL Abs Immat Gran (auto) 0.05 H (0.00-0.03) X10*3/uL Absolute Neuts (auto) 3.4 (2.0-8.3) x10*3/uL Absolute Nucleated RBC 0.000 (0.0-0.012) X10*3/uL Nucleated RBC % (auto) 0.0 (0.0-0.2) /100WBC Sodium 139 (135-145) mmol/L Potassium 3.3 D (3.3-5.1) mmol/L Chloride 101 (96-108) mmol/L Carbon Dioxide 20 L (22-29) mmol/L Anion Gap 21 H (12-20) BUN 5 L (9-16) mg/dL Creatinine 0.58 (0.5-1.4) mg/dL Estim Creat Clear Calc 133.7 Estimated GFR > 60 Random Glucose 102 (60-115) mg/dL Calcium 8.4 (8.4-10.2) mg/dL Total Bilirubin 0.6 (0.0-1.0) mg/dL AST 402 H (5-31) U/L ALT 246 H (0-31) U/L Alkaline Phosphatase 342 H (39-117) U/L Total Protein 6.3 L (6.5-8.0) g/dL Albumin 3.5 (3.5-5.0) g/dL Ethyl Alcohol 331 H* mg/dL Medications Administered Discontinued Medications Generic Name Dose Route Start Last Admin Trade Name Freq PRN Reason Stop Dose Admin Buprenorphine/Naloxone 1 film 03/26/23 11:33 03/26/23 11:39 Buprenorphine/Naloxone 4/1 Mg Film SUBLINGUAL 03/26/23 11:34 1 film ONCE ONE Administration Chlordiazepoxide HCl 25 mg 03/26/23 11:32 03/26/23 11:40 Chlordiazepoxide Hcl 25 Mg Capsule PO 03/26/23 11:33 25 mg ONCE ONE Administration Olanzapine 10 mg 03/26/23 11:18 03/26/23 11:44 Olanzapine 10 Mg Tablet PO 03/26/23 11:19 10 mg ONCE ONE Administration Discharge Plan Discharge Clinical Impression: Alcohol intoxication, Alcohol use disorder, Opiate use Patient Disposition: Home, Self-Care Additional Instructions: The legal limit of alcohol intoxication check your blood is 80. Your alcohol level was 331. Your liver tests were elevated as follows: AST 402 (normal 3-31) ALT 246 (normal 0-31) Alk phos 342 (normal 39-117) If you continue to drink alcohol you will eventually damage your liver and developed alcohol cirrhosis. It is important that you stop drinking you get help with your alcohol use disorder. I am giving you a 5 day prescription for Suboxone 4/1 mg, take 1 daily. Follow-up with the [facility]. You have and appointment on 03/31 at 1:45PM with Yazmin Mckinnon RN. The [facility] will refill your Suboxone prescription and try to get you on the appropriate dose to stop you from using opiates. Follow-up with your doctor in 2 days. Please return to the emergency department if your symptoms get worse or if you develop any symptoms that are concerning to you. Prescriptions: New buprenorphine-naloxone [Suboxone] 4-1 mg film 1 film buccal Q24H 5 Days Qty: 5 0RF Rx Instructions: place 1 strip/tab under (each) side of tongue No Action duloxetine 60 mg capsule,delayed release(DR/EC) 60 mg PO BID gabapentin 600 mg tablet 600 mg PO TID buprenorphine-naloxone 8-2 mg film 1 film sublingual BID
--- NOTE | 2023-03-26 11:15 | PC.NURSE ---
pt brought in by ambulance. pt's called d/t concerns of her behavior after drinking alcohol. pt reported that she drank 2 vodkas and 1 beer. pt reported that she was on suboxone x12 yrs and 2 wks ago stopped taking it because her suboxone prescriber is in [place] and her refuses to drive her there.
--- NOTE | 2023-03-26 11:20 | MHC.RECOVSUP ---
Met with pt in ED6H who is here for ETOH/PAULINE. Pt reports having been in treatment and sober living in [facility] but left about 1 month ago and has been drinking ever since and unable to get her Suboxone again as she lost her license. Pt is not able to provide and amount of alcohol a day but that her limits her drinking to help with her withdrawals from Suboxone. At this time pt reports only drinking and states she has not used any opiates and would like to be provided Suboxone at this time as she feels sick and has bad withdrawals. PT is not interested in ATS at this time and just wants to get back on MAT. Reviewed with SENIOR CLINICAL RESEARCH ASSOCIATE Yazmin Mckinnon and recovery nurse will follow up with pt in regards to withdrawals and Suboxone.
[2023-03-26] MEDS: Buprenorphine/Naloxone 4/1 mg FILM 1 FILM SUBLINGUAL (11:39)
[2023-03-26] MEDS: chlordiazePOXIDE HCl 25 MG CAPSULE PO (11:40)
[2023-03-26] MEDS: OLANZapine 10 MG TABLET PO (11:44)
--- NOTE | 2023-03-26 11:46 | PC.NURSE ---
pt was brought in with bm all over her, per ems pt lost control of her bowel during transport to er. pt verbally abusive to staff while cleaning her up. pt changed into alyson hernandez.
--- NOTE | 2023-03-26 11:47 | MHC.RECOVRN ---
Addendum entered by Tammi Robison 03/26/23 11:54: Per Christopher, pts last Suboxone prescription filled on 03/03 for a 14 day supply of 4 mg BID. Original Note: Met with pt in ED [facility] after pt expressed interest in Suboxone. Pt sitting on stretcher, awake, alert, easily engages in conversation. Pt reports hx opioid pain medications which lead to Suboxone initiation years ago. Pt reports she had been staying and working in [facility] x 7 months and returned to the area to live with her approx one month ago. Pt reports she had lost her license in July and since returning to the area has had difficulty obtaining her Suboxone prescription because her believes it is witYaphie brew and her provider is in [place]. In order to address withdrawal symptoms, pt has been using alcohol. Prior to one month ago, pt had last used alcohol in July. Pt reports today drinking 4 ounces vodka as well as 2 beers. Pt reports opioid withdrawal symptoms including loose stool and diaphoresis. Pt would like to reinitiate Suboxone. Discussed with provider, plan to administer 4 mg Suboxone and reassess. Will continue to follow.
[2023-03-26 11:54] LABS: MANUAL DIFF FLAG NO
[2023-03-26 12:06] LABS: Basophils Absolute Auto 0.1 X10*3/uL (0.0-0.2); Eosinophils Absolute Auto 0.1 X10*3/uL (0.0-0.4); Eosinophils Percent Auto 1.9 % (0-4); Hematocrit 34.2 % (37.0-47.0); Hemoglobin 11.7 g/dl (12.0-16.0); Imm Gran Abs Auto 0.05 X10*3/uL (0.00-0.03); Lymphocytes Absolute Auto 0.8 X10*3/uL (1.2-4.9); Lymphocytes Percent Auto 17.6 % (20-40); Mean Corpuscular HGB Conc 34.2 g/dl (31.0-35.0); Mean Corpuscular Volume 90.7 fL (80.0-98.0); Mean Platelet Volume 9.6 fL (9.4-12.3); Monocytes Absolute Auto 0.3 X10*3/uL (0.1-1.2); Monocytes Percent Auto 6.5 % (2-11); Neutrophils Absolute Auto 3.4 x10*3/uL (2.0-8.3); Platelet Count 291 X10*3/uL (160-400); Red Blood Count 3.77 X10*6/uL (4.20-5.50); Red Cell Distribution Width 20.1 % (11.0-16.0); White Blood Count 4.8 X10*3/uL (4.8-10.8)
[2023-03-26 12:18] LABS: Alanine Aminotransferase 246 U/L (0-31); Albumin Level 3.5 g/dL (3.5-5.0); Alkaline Phosphatase 342 U/L (39-117); Anion Gap 21 (12-20); Aspartate Amino Transferase 402 U/L (5-31); Bilirubin Total 0.6 mg/dL (0.0-1.0); Blood Urea Nitrogen 5 mg/dL (9-16); Calcium 8.4 mg/dL (8.4-10.2); Carbon Dioxide 20 mmol/L (22-29); Chloride 101 mmol/L (96-108); Creatinine Clr Calc Pharmacy 133.7; Estimated Glomerular Filt Rate > 60; Ethanol 331 mg/dL; Glucose Random 102 mg/dL (60-115); Potassium 3.3 mmol/L (3.3-5.1); Sodium 139 mmol/L (135-145); Total Protein 6.3 g/dL (6.5-8.0)
--- NOTE | 2023-03-26 12:23 | PC.NURSE ---
PAOLO 10. Dr. Miller aware. meds given as documented. vss. pt cooperative with labs. resting quietly at this time. will continue to observe
[2023-03-26 12:25] VITALS: BP 143/93; PULSE 93; RESP 20; TEMP 36.8; O2SAT 96
--- NOTE | 2023-03-26 14:08 | MHC.RECOVRN ---
Met with pt in [facility] to follow up after receiving Suboxone. Pt feels much better and is grateful for the assistance she is receiving. Discussed outpatient follow up, pt agreeable to [facility] appointment. Is interested in Sublocade. Pt feels alcohol use will not be problematic due to having Suboxone and not feeling opioid withdrawal. Discussed with provider, requested Suboxone prescription be sent to patients pharmacy. [facility] appointment made for 03/31 at 1:45PM with Yazmin Mckinnon APRN.
[2023-03-26 15:39] VITALS: BP 143/79; PULSE 100; RESP 16; TEMP 36.6; O2SAT 97
== END 2023-03-26 15:42 | disposition home or self-care (01) ==
PROVIDERS: Emergency Provider Emergency Medicine Emergency Medical Services
DX: F10.121 Alcohol abuse with intoxication delirium (principal); Y90.8 Blood alcohol level of 240 mg/100 ml or more; F11.10 Opioid abuse, uncomplicated; Z71.41 Alcohol abuse counseling and surveillance of alcoholic; Z79.899 Other long term (current) drug therapy
CPT/HCPCS: 36415; 80053; 80307; 85025; 99284

== ENCOUNTER 2023-03-31 13:57 | Outpatient (AMB) | payer BC, SELFPAY ==
[2023-03-31 14:08] VITALS: BP 134/78; PULSE 74; O2SAT 96
--- NOTE | 2023-03-31 14:08 | A.OFFVISCC_ITS ---
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 Long history of substance use that started when patient was in her 20's. Alcohol did not become an issue per patient until 11-12 years ago. Unclear how long patient has been in recovery in the past Reports very briefly using heroin, [place]. 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 ' Treatment History: Numerous admissions for treatment at various levels of acuity Most recently she reports she was admitted to [address] treatment facilities x2 over the last year. Has trialed all medications for AUD and OUD. Does not find any AUD medications effective Social History: Completed [facility] removed children about 4 years ago She is back home living with her who also drinks alcohol Medical History: Monafidil 200mg QD Duloxeting 60mg daily Gabapentin 300mg in AM Ibuprofen once a day Above medications are what patient reports taking daily. Monafidil was started by provider after patient reported feeling excessively tired and sleepy (per patient report) [facility] Medical History Encounter for monitoring Suboxone maintenance therapy Hypertension Alcohol use disorder, severe, dependence Opioid use disorder Alcohol abuse Surgical History History of gastric surgery Family History Father Lung cancer Social History Household Members: Spouse Housing: House Do you presently have visiting nurse or other home services: No Alcohol intake: current Alcohol intake frequency: 3 or more drinks per day Alcohol type: beer and hard liquor Patient Tobacco Use Status: Former Tobacco user Quit Date: 05/07/21 Tobacco use type: Cigarette Years Smoked: 2 Second Hand Smoke Exposure: No service: No Current occupational status: employed Review of Systems Const Reports difficulty sleeping, Reports malaise and Reports weakness Musc Reports abnormal gait (using cane ) and Reports arthralgias Neuro Reports abnormal gait (using cane ) and Reports weakness Psych Reports anxiety, Reports depression and Reports difficulty concentrating Physical Exam Vital Signs: Last Vital Signs Pulse 74 03/31/23 14:08 BP 134/78 03/31/23 14:08 Pulse Ox 96 03/31/23 14:08 Oxygen Delivery Method Room Air 03/31/23 14:08 Const General: cooperative Nutritional Appearance: average body habitus Psych Appearance: grossly normal Speech and movement: Pressured speech present and Restless speech present Affect: Animated affect present Attitude: cooperative Thought process: Circumstantial thought process present, Tangential thought process present and Racing thoughts present Insight: Limited insight present (Psych) Judgement: Fair judgement present (Psych) Assessment & Plan Assessment & Plan (1) Opioid use disorder: Code(s): F11.90 - Opioid use, unspecified, uncomplicated Plan: * suboxone 8mg daily restarted * overdose prevention discussion * follow up 2 weeks (provider vacation) (2) Alcohol use disorder, severe, dependence: Code(s): F10.20 - Alcohol dependence, uncomplicated Plan: * risk reduction discussion * patient requesting librium which this financial writer declined based on patients presentation during visit * vitamins ordered and encouraged Medications: New thiamine HCl (vitamin B1) 100 mg PO DAILY 30 tabs 3RF folic acid 1 mg PO DAILY 30 tabs 3RF duloxetine 60 mg PO DAILY 30 caps 0RF Changed From buprenorphine-naloxone 8-2 mg 1 film sublingual BID To buprenorphine-naloxone 8-2 mg 1 film sublingual DAILY 14 ea 0RF Discontinued buprenorphine-naloxone 4-1 mg (Suboxone) place 1 strip/tab under (each) side of tongue Discontinued Reason: Patient Completed Course 1 film buccal Q24H 5 days 5 ea 0RF Coding Level of Care Code Est Pt Level 4 (98956) Diagnoses Opioid use disorder F11.90 Alcohol use disorder, severe, dependence F10.20 Time Spent (min) 65
== END 2023-03-31 15:00 | disposition home or self-care (01) ==
PROVIDERS: Visit Provider Nurse Practitioner Psychiatric/Mental Health
DX: F11.90 Opioid use, unspecified, uncomplicated (principal); F10.20 Alcohol dependence, uncomplicated
CPT/HCPCS: 99214

== ENCOUNTER → 2023-03-31 13:57 | Outpatient (BNVA) | payer BC, SELFPAY | PROVIDERS: Visit Provider Nurse Practitioner Psychiatric/Mental Health ==

== ENCOUNTER 2023-04-27 20:11 | Inpatient (IN) | payer BC, MEDICAID, SELFPAY ==
--- NOTE | ~2023-04-27 | CT_ITS ---
EXAMINATION: HEAD CT WITHOUT CONTRAST CERVICAL SPINE CT WITHOUT CONTRAST CLINICAL INFORMATION: Head trauma. COMPARISON: None. TECHNIQUE: Contiguous axial imaging of the head was performed without the administration of IV contrast. Axial multidetector volumetric images were also performed through the cervical spine without intravenous contrast. Multiplanar reconstructed images in coronal and sagittal orientations were submitted. This CT examination was performed using dose optimization techniques as appropriate, variously including the following: *Automated exposure control *Adjustment of mA and/or kV according to patient size (this includes techniques or standardized protocols for targeted exams where dose is matched to indication/reason for exam; i.e. extremities or head) *Use of iterative reconstruction technique DOSE: 1150 mGy-cm FINDINGS: HEAD: There is no evidence of acute intracranial hemorrhage or territorial infarction. No abnormal mass-effect or midline shift. No extra-axial fluid collections. Peterson to white matter differentiation is well preserved. The ventricles are normal in size and configuration. There is no abnormal attenuation within the brain parenchyma. The soft tissues and osseous structures are normal. The sinuses and mastoid air cells are clear. CERVICAL SPINE: Vertebral body heights are normal. No fractures of the vertebral bodies or posterior elements. There is anterolisthesis of C4 on C5 by 4 mm which appears chronic, most likely related to the severe facet arthropathy on the right at this level. Alignment is otherwise normal. Degenerative osteophytes and sclerosis are present at the atlantodental articulation, though normal alignment is maintained. Craniocervical junction is normal. Moderate to severe degenerative disc disease is evident at C2-C3, C5-C6, and C6-C7 with marked loss of intervertebral disc height, endplate osteophytes, endplate irregularity, subcortical cystic change, and uncovertebral osteophytes. Early ankylosis is suspected at the C2-C3 level across the interbody space. More [id number] degenerative disc disease is present at other levels in the cervical spine. There is severe facet arthropathy on the right at C4-C5 and more moderate facet arthropathy on the left at C3-C4. Posterior disc osteophyte complex at C5-C6 produces at least moderate central canal narrowing. More mild central canal narrowing is suspected at C6-C7. Multilevel neural foraminal encroachment is produced by uncovertebral and facet osteophytes, most pronounced on the right at C4-C5 and C5-C6 and on the left at C3-C4 and C5-C6. No significant paravertebral soft tissue swelling. Atherosclerotic calcifications are present in the carotid arteries. Imaged portions of the lung apices are clear. CT/CT cervical spine wo IV con IMPRESSION: 1. No acute intracranial pathology. 2. No acute fracture or acute malalignment in the cervical spine. 3. Marked multilevel degenerative spondylosis in the cervical spine with chronic anterolisthesis of C4 on C5.
--- NOTE | ~2023-04-27 | CT_ITS ---
EXAMINATION: HEAD CT WITHOUT CONTRAST CERVICAL SPINE CT WITHOUT CONTRAST CLINICAL INFORMATION: Head trauma. COMPARISON: None. TECHNIQUE: Contiguous axial imaging of the head was performed without the administration of IV contrast. Axial multidetector volumetric images were also performed through the cervical spine without intravenous contrast. Multiplanar reconstructed images in coronal and sagittal orientations were submitted. This CT examination was performed using dose optimization techniques as appropriate, variously including the following: *Automated exposure control *Adjustment of mA and/or kV according to patient size (this includes techniques or standardized protocols for targeted exams where dose is matched to indication/reason for exam; i.e. extremities or head) *Use of iterative reconstruction technique DOSE: 1150 mGy-cm FINDINGS: HEAD: There is no evidence of acute intracranial hemorrhage or territorial infarction. No abnormal mass-effect or midline shift. No extra-axial fluid collections. Peterson to white matter differentiation is well preserved. The ventricles are normal in size and configuration. There is no abnormal attenuation within the brain parenchyma. The soft tissues and osseous structures are normal. The sinuses and mastoid air cells are clear. CERVICAL SPINE: Vertebral body heights are normal. No fractures of the vertebral bodies or posterior elements. There is anterolisthesis of C4 on C5 by 4 mm which appears chronic, most likely related to the severe facet arthropathy on the right at this level. Alignment is otherwise normal. Degenerative osteophytes and sclerosis are present at the atlantodental articulation, though normal alignment is maintained. Craniocervical junction is normal. Moderate to severe degenerative disc disease is evident at C2-C3, C5-C6, and C6-C7 with marked loss of intervertebral disc height, endplate osteophytes, endplate irregularity, subcortical cystic change, and uncovertebral osteophytes. Early ankylosis is suspected at the C2-C3 level across the interbody space. More [id number] degenerative disc disease is present at other levels in the cervical spine. There is severe facet arthropathy on the right at C4-C5 and more moderate facet arthropathy on the left at C3-C4. Posterior disc osteophyte complex at C5-C6 produces at least moderate central canal narrowing. More mild central canal narrowing is suspected at C6-C7. Multilevel neural foraminal encroachment is produced by uncovertebral and facet osteophytes, most pronounced on the right at C4-C5 and C5-C6 and on the left at C3-C4 and C5-C6. No significant paravertebral soft tissue swelling. Atherosclerotic calcifications are present in the carotid arteries. Imaged portions of the lung apices are clear. CT/CT head/brain wo IV con IMPRESSION: 1. No acute intracranial pathology. 2. No acute fracture or acute malalignment in the cervical spine. 3. Marked multilevel degenerative spondylosis in the cervical spine with chronic anterolisthesis of C4 on C5.
--- NOTE | ~2023-04-27 | MR_ITS ---
EXAMINATION: MR BRAIN WITHOUT CONTRAST CLINICAL INFORMATION: Slurred speech. COMPARISON: Head CT dated 04/27/2023. TECHNIQUE: Multiplanar, multisequence imaging of the brain was performed without contrast. Limited study with motion artifacts. FINDINGS: No diffusion abnormalities are identified to suggest an acute infarct. No mass effect or midline shift is seen. Mild scattered cerebral white matter signal changes are visible. Moderate T2 hyperintense signal abnormality is noted within the shalini. No extra-axial fluid collections are seen. The cerebellum is normal. The gradient refocused acquisition is normal. Generalized brain parenchymal volume loss noted with concordant ex vacuo prominence of the ventricles. The craniovertebral junction, marrow signal, and midline structures are normal. The major intracranial flow voids at the level of the [place] of [place] are preserved. The dural venous sinus flow voids are maintained. The mastoid air cells and paranasal sinuses are well aerated. MR/MR head/brain wo con IMPRESSION: Limited exam with motion artifacts. No acute intracranial process. Moderate diffuse brain parenchymal volume loss for patient age. Mild scattered white matter signal changes in the cerebral white matter which are nonspecific. Moderate signal changes in the shalini which may be due to chronic ischemic microangiopathy. In the correct clinical setting, osmotic demyelination syndrome can have a similar imaging appearance and clinical correlation is recommended.
--- NOTE | ~2023-04-27 | US_ITS ---
EXAMINATION: US ABDOMEN LIMITED CLINICAL INFORMATION: Elevated liver enzymes. COMPARISON: Visualized abdomen on the 02/03/2022 CT scan of the chest TECHNIQUE: Real-time imaging of the right upper quadrant abdominal viscera. FINDINGS: PANCREAS: Mostly obscured by overlying bowel gas LIVER: Diffusely increased hepatic echotexture suggesting diffuse fatty infiltration. No obvious suspicious hepatic lesion. There is a small 1.5 cm cyst anteriorly in the right lobe. No biliary ductal dilatation GALLBLADDER: Patient is status post cholecystectomy COMMON BILE DUCT: Prominent but likely related to postcholecystectomy status. Measuring 1.2 cm in diameter. RIGHT KIDNEY: Normal. No hydronephrosis. No renal calculi or focal parenchymal lesions. The kidney measures 12.3 cm in maximum dimension. FREE FLUID: None. US/US abdomen limited IMPRESSION: Diffusely increased hepatic echotexture suggesting diffuse fatty infiltration but no focal hepatic lesion or biliary ductal dilatation.
--- NOTE | ~2023-04-27 | XR_ITS ---
EXAMINATION: XR CHEST CLINICAL INFORMATION: Fever, cough COMPARISON: 02/03/2022 TECHNIQUE: Frontal view of the chest was obtained. FINDINGS: Lung volumes are symmetric. No focal consolidation is seen. No evidence of pneumothorax, pleural effusion, or pulmonary edema. The cardiomediastinal contour is unremarkable. No acute osseous findings are seen. XR/XR chest 1V IMPRESSION: No acute cardiopulmonary findings.
[2023-04-27 20:20] VITALS: BP 143/88; PULSE 85; RESP 16; O2SAT 95; BMI 34.3
--- NOTE | 2023-04-27 20:44 | MHC.EDTECH ---
Patient came in inc therefore patient cleaned and changed over
--- NOTE | 2023-04-27 20:49 | ED.ALCOHOL ---
HPI - Alcohol General Chief Complaint: ETOH/Substance Use Stated Complaint: ETOH/suboxone, semi combative, prev head lac Time Seen by Provider: 04/27/23 20:18 Source: EMS and old records reviewed Mode of arrival: EMS Limitations: other (alcohol intoxication) History of Present Illness HPI narrative: 52 yo female with PMH of opiate use disorder on suboxone follows with Yazmin Mckinnon started back on at end of March, ETOH abuse, depression with anxiety, notes she was doing nothing at home and resting. She isn't sure why she is here. She is agitated smells of ETOH has scrapes or picked lesions on the face and is quite belligerent. told RN she is out of control and has been getting vodka delivered she has been shaking so bad that he even has been giving her the vodka to prevent withdrawals. complaint: alcohol intoxication Last drink: Just prior to admission Chronic alcohol use: Yes Previous visits for alcohol intoxication: No Recent trauma: Yes (unsure has scrapes on the face) Associated symptoms: denies other symptoms Treatments prior to arrival: none Related Data Home Medications Medication Instructions Recorded Confirmed gabapentin 600 mg tablet 600 mg PO TID 07/18/22 07/18/22 Previous Rx's Medication Instructions Recorded duloxetine 60 mg capsule,delayed 60 mg PO DAILY #30 caps 03/31/23 release folic acid 1 mg tablet 1 mg PO DAILY #30 tabs 03/31/23 thiamine HCl (vitamin B1) 100 mg 100 mg PO DAILY #30 tabs 03/31/23 tablet buprenorphine 8 mg-naloxone 2 mg 1 film sublingual DAILY #3 ea 04/27/23 sublingual film Allergies Allergy/AdvReac Type Severity Reaction Status Date / Time No Known Allergies Allergy Unverified 03/31/23 14:09 Review of Systems Review of Systems: ROS unable to be obtained due to intoxication PMFSH Past Medical History Medical History Encounter for monitoring Suboxone maintenance therapy Hypertension Alcohol use disorder, severe, dependence Opioid use disorder Alcohol abuse Surgical History History of gastric surgery Family History Family History Father Lung cancer Social History Social History Household Members: Spouse Housing: House Do you presently have visiting nurse or other home services: No Alcohol intake: current Alcohol intake frequency: 3 or more drinks per day Alcohol type: beer and hard liquor Patient Tobacco Use Status: Former Tobacco user Quit Date: 05/07/21 Tobacco use type: Cigarette Years Smoked: 2 Second Hand Smoke Exposure: No Advance Directives: No Advance Directives Information Provided: No service: No Current occupational status: employed Physical Exam ED Vital Signs: Vital Signs - 24 hr 04/27/23 20:20 04/28/23 00:16 Temperature 97.6 F Pulse Rate 85 86 Respiratory Rate 16 18 Blood Pressure 143/88 H 124/75 Pulse Oximetry 95 94 Oxygen Delivery Method Room Air Room Air BMI result Body Mass Index 34.3 Appearance: Alert. Oriented X3. ETOH odor, belligerent, rude. mild acute distress. Eyes: Pupils equal, round and reactive to light. ENT: Pharynx normal. lesions and scabs on face not vesicles no signs of cellulitis Neck: Normal inspection. Neck supple. CVS: Normal heart rate and rhythm. Pulses normal. Respiratory: No respiratory distress. Breath sounds normal. Abdomen: Soft and nontender. Skin: Skin warm and dry. Normal skin color. Normal skin turgor. Extremities: No lower extremity edema. No calf ttp Neuro: Oriented X 3. No motor deficit. No sensory deficit. Course Course Course Narrative: very rude with staff, belligerent attempting to fight them - get the fuck out of my home at this time will give ODT zyprexa to improve symptoms Reevaluation(s) Reevaluation #1: LFTs are up but patient states she wants to leave too intoxicated will need to reassess. Reevaluation #2: demanding suboxone while she is intoxicated states she is on 4mg a couple of times a day when I confronted her that this is not true and that she will not be getting it right now and she is on 8mg daily she became confrontational and the I notified her I read Yazmin Mckinnon's notes from her most recent visit and her Rx was in fact not what she was stating. Reevaluation #3: patient has been incredibly rude and verbally abusive to our nursing staff she then implies that she deserves more than other patients here because she actually pays for insurance other than the people on [employer]. she has been hostile and aggressive repeatedly using profane language and harrassing any staff member that walks by. Medical Decision Making Medical Decision Making [facility] Narrative: 52 yo female with PMH of opiate use disorder on suboxone follows with Yazmin Mckinnon started back on at end of March, ETOH abuse, depression with anxiety here with ETOH intoxication and patient is agitated and rude. At this time has hx of same in past. She is hard to get a history from will obtain labs, CT head/cspine. ODT zyprexa. Will need to be monitored until she is clinically sober Differential Diagnosis Differential Diagnoses: The differential diagnosis associated with the presentation includes drug abuse, facial trauma, ETOH intoxication Admission/Observation Consideration of admission/observation: Escalation of care including admission/observation considered observe until clinically sober Lab Data [facility] Lab Attestation statement: I reviewed the patient's lab results. 04/27/23 21:03 04/27/23 21:03 Labs: Lab Results 04/27/23 Range/Units 21:03 WBC 6.1 (4.8-10.8) X10*3/uL RBC 4.25 (4.20-5.50) X10*6/uL Hgb 13.7 (12.0-16.0) g/dl Hct 39.6 (37.0-47.0) % MCV 93.2 (80.0-98.0) fL MCH 32.2 (27.0-33.0) pg MCHC 34.6 (31.0-35.0) g/dl RDW 18.9 H (11.0-16.0) % Plt Count 190 D (160-400) X10*3/uL MPV 9.6 (9.4-12.3) fL Immature Gran % (Auto) 0.3 (0.0-0.4) % Neut % (Auto) 74.2 H (45-73) % Lymph % (Auto) 16.7 L (20-40) % [place] % (Auto) 8.0 (2-11) % Eos % (Auto) 0.3 (0-4) % Baso % (Auto) 0.5 (0-2) % Lymph # (Auto) 1.0 L (1.2-4.9) X10*3/uL [place] # (Auto) 0.5 (0.1-1.2) X10*3/uL Eos # (Auto) 0.0 (0.0-0.4) X10*3/uL Baso # (Auto) 0.0 (0.0-0.2) X10*3/uL Abs Immat Gran (auto) 0.02 (0.00-0.03) X10*3/uL Absolute Neuts (auto) 4.5 (2.0-8.3) x10*3/uL Absolute Nucleated RBC 0.000 (0.0-0.012) X10*3/uL Nucleated RBC % (auto) 0.0 (0.0-0.2) /100WBC Sodium 134 L (135-145) mmol/L Potassium 3.5 (3.3-5.1) mmol/L Chloride 94 L (96-108) mmol/L Carbon Dioxide 23 (22-29) mmol/L Anion Gap 21 H (12-20) BUN 4 L (9-16) mg/dL Creatinine 0.55 (0.5-1.4) mg/dL Estim Creat Clear Calc 127.5 Estimated GFR > 60 Random Glucose 132 H (60-115) mg/dL Calcium 8.5 (8.4-10.2) mg/dL Magnesium 1.7 (1.6-2.6) mg/dL Total Bilirubin 3.4 H (0.0-1.0) mg/dL Direct Bilirubin 2.7 H (0.0-0.5) mg/dL AST 837 H (5-31) U/L ALT 180 H (0-31) U/L Alkaline Phosphatase 534 H (39-117) U/L Total Protein 7.1 (6.5-8.0) g/dL Albumin 3.8 (3.5-5.0) g/dL Ethyl Alcohol 452 H* mg/dL Independent Interpretation I performed an independent interpretation of an: CT Scan Radiology Impression Discussion of test interpretation with radiology: I have reviewed the radiologist's reading. Independent Historian Clinical information obtained from an independent historian. History obtained from or confirmed by: EMS External Record Review External record reviewed: Inpatient record Social Determinants Patient?s care significantly limited by Social Determinants of Health including: Problems related to primary support group Medications Administered Generic Name Dose Route Start Last Admin Trade Name Freq PRN Reason Stop Dose Admin Chlordiazepoxide HCl 50 mg 04/27/23 22:20 04/27/23 23:18 Chlordiazepoxide Hcl 25 Mg Capsule PO 50 mg Q6H PRN Administration Alcohol Withdrawal Discontinued Medications Generic Name Dose Route Start Last Admin Trade Name Jimena PRN Reason Stop Dose Admin Olanzapine 10 mg 04/27/23 20:48 04/27/23 20:59 Olanzapine Odt 10 Mg Tab.Rapdis TRANSLINGU 04/27/23 20:49 10 mg ONCE ONE Administration Ondansetron HCl 8 mg 04/27/23 23:07 04/27/23 23:18 Ondansetron Odt 4 Mg Tab.Rapdis TRANSLINGU 04/27/23 23:08 8 mg ONCE ONE Administration Thiamine HCl 100 mg 04/27/23 22:20 04/27/23 23:18 Thiamine Hcl 100 Mg Tablet PO 04/27/23 22:21 100 mg ONCE ONE Administration Discharge Plan Discharge Clinical Impression: Elevated liver enzymes Alcoholic intoxication Qualifiers: Complication of substance-induced condition: with unspecified complication Qualified Code(s): F10.929 - Alcohol use, unspecified with intoxication, unspecified Patient Disposition: Still a Patient Instructions: Alcohol Intoxication (ED) Additional Instructions: stop drinking alcohol. monitor the lesions on your face for redness, yellow drainage, fevers, or any other concerns. please follow up with your doctor. you liver enzymes are up you need them rechecked in 24 hours Prescriptions: No Action buprenorphine-naloxone 8-2 mg film 1 film sublingual DAILY Qty: 3 0RF gabapentin 600 mg tablet 600 mg PO TID thiamine HCl (vitamin B1) 100 mg tablet 100 mg PO DAILY Qty: 30 3RF folic acid 1 mg tablet 1 mg PO DAILY Qty: 30 3RF duloxetine 60 mg capsule,delayed release(DR/EC) 60 mg PO DAILY Qty: 30 0RF
[2023-04-27] MEDS: OLANZapine ODT 10 MG TAB.RAPDIS TRANSLINGU (20:59)
[2023-04-27 21:10] LABS: MANUAL DIFF FLAG NO
[2023-04-27 21:11] LABS: Basophils Percent Auto 0.5 % (0-2); Eosinophils Percent Auto 0.3 % (0-4); Hematocrit 39.6 % (37.0-47.0); Hemoglobin 13.7 g/dl (12.0-16.0); Imm Gran Abs Auto 0.02 X10*3/uL (0.00-0.03); Imm Gran Pct Auto 0.3 % (0.0-0.4); Lymphocytes Percent Auto 16.7 % (20-40); Mean Corpuscular HGB Conc 34.6 g/dl (31.0-35.0); Mean Corpuscular Hemoglobin 32.2 pg (27.0-33.0); Mean Corpuscular Volume 93.2 fL (80.0-98.0); Mean Platelet Volume 9.6 fL (9.4-12.3); Monocytes Absolute Auto 0.5 X10*3/uL (0.1-1.2); Neutrophils Absolute Auto 4.5 x10*3/uL (2.0-8.3); Neutrophils Percent Auto 74.2 % (45-73); Platelet Count 190 X10*3/uL (160-400); Red Blood Count 4.25 X10*6/uL (4.20-5.50); Red Cell Distribution Width 18.9 % (11.0-16.0); White Blood Count 6.1 X10*3/uL (4.8-10.8)
[2023-04-27 21:31] LABS: Alanine Aminotransferase 180 U/L (0-31); Albumin Level 3.8 g/dL (3.5-5.0); Alkaline Phosphatase 534 U/L (39-117); Anion Gap 21 (12-20); Aspartate Amino Transferase 837 U/L (5-31); Bilirubin Direct 2.7 mg/dL (0.0-0.5); Bilirubin Total 3.4 mg/dL (0.0-1.0); Blood Urea Nitrogen 4 mg/dL (9-16); Calcium 8.5 mg/dL (8.4-10.2); Carbon Dioxide 23 mmol/L (22-29); Chloride 94 mmol/L (96-108); Creatinine Clr Calc Pharmacy 127.5; Estimated Glomerular Filt Rate > 60; Ethanol 452 mg/dL; Glucose Random 132 mg/dL (60-115); Magnesium 1.7 mg/dL (1.6-2.6); Potassium 3.5 mmol/L (3.3-5.1); Sodium 134 mmol/L (135-145); Total Protein 7.1 g/dL (6.5-8.0)
[2023-04-27] MEDS: Ondansetron ODT 4 MG TAB.RAPDIS 8 MG TRANSLINGU (23:18)
[2023-04-27] MEDS: chlordiazePOXIDE HCl 25 MG CAPSULE 50 MG PO (23:18)
[2023-04-27] MEDS: Thiamine HCL 100 MG TABLET PO (23:18)
[2023-04-28] VITALS (8 sets, daily range): BP systolic 121–162; BP diastolic 74–106; PULSE 75–110; RESP 18–20; TEMP 36–36.9; O2SAT 93–96; BMI 37.2; BMI 38.1
[2023-04-28] MEDS: chlordiazePOXIDE HCl 25 MG CAPSULE 50 MG PO (05:18)
--- NOTE | 2023-04-28 05:20 | PC.NURSE ---
Pt ca&ox4, no signs. Pt medicated per jun. Pt spilled large amount of water on the floor. Environmental called. Pt requested and given clean gown. Plan of care ongoing.
--- NOTE | 2023-04-28 06:25 | PC.NURSE ---
Pt has an unsteady gait. Purewick placed. Plan of care ongoing.
[2023-04-28 06:38] LABS: Acetaminophen LAB < 3 mcg/mL (<30)
[2023-04-28 07:00] LABS: Alanine Aminotransferase 163 U/L (0-31); Albumin Level 3.8 g/dL (3.5-5.0); Alkaline Phosphatase 482 U/L (39-117); Aspartate Amino Transferase 529 U/L (5-31); Bilirubin Direct 1.2 mg/dL (0.0-0.5); Total Protein 6.9 g/dL (6.5-8.0)
[2023-04-28 07:30] LABS: Glucose, Whole Blood 111 mg/dL (60-115)
[2023-04-28] MEDS: LORazepam 1 MG TABLET 2 MG PO (08:10)
--- NOTE | 2023-04-28 10:20 | PC.NURSE ---
Pharmacy called for med rec
--- NOTE | 2023-04-28 10:54 | PHA.MEDREC ---
Pharmacy Consult ? Medication Reconciliation Pharmacy has completed the medication reconciliation. Spoke with patient who listed off all medications.
[2023-04-28] MEDS: PHENobarbitaL sodium 130 MG/ML IM ONCE 220 MG IM (11:58)
--- NOTE | 2023-04-28 11:58 | PM.IMHP ---
History of Present Illness Date of Service: 04/28/23 <DEJAH Felix - Last Filed: 04/28/23 16:57> Attending physician on admission: Suzanne Elliott <DEJAH Felix - Last Filed: 04/28/23 16:57> Chief Complaint: Alcohol withdrawal <DEJAH Felix - Last Filed: 04/28/23 16:57> 52-year-old female with history of genital herpes, unspecified mood disorder, alcohol use disorder, opioid dependence on Suboxone, history polysubstance abuse presented to the ED last night due to acute alcohol intoxication with multiple falls. The patient states that she had been living in a sober home for about 8 months but then returned to the area and began drinking again. She states that she does try to abstain from alcohol but her continues to drink. Last night, she reports she consumed 1.75 L of vodka and blacked out. Reports she started drinking to manage withdrawal symptoms including shakes. She denies any history of DTs or alcohol withdrawal seizures though has been admitted several times for alcohol withdrawal. She denies any ongoing illicit substance use. Currently she is reporting tremors, nausea, dry heaves, intermittent slurred speech and word-finding difficulty. She states last night she feels she was experiencing visual and auditory hallucinations but denies any ongoing hallucinations. She denies any confusion. She did sustain multiple falls per her report the does not recall if she hit her head or lost consciousness. She also reports gait instability and weakness as well as decreased PO intake r/t her alcohol consumption. She follows with the [facility] for her Suboxone management. Noted on exam is a scabbed facial rash. Reports she has had the rash for about 1 week. Initially picked at lesions with serous drainage, now scabbed over. No pain or itch. Has known history of herpes simplex and has had similar facial lesions before. No purulent drainage, fevers, chills. On arrival, mild hypertension on admission with BP 150/89 with mild tachycardia, vitals otherwise stable. Hematology studies unremarkable. Renal function normal, electrolyte levels largely unremarkable. Liver panel this morning revealed slight improvement in LFTs but still with total bilirubin 2.0, direct bilirubin 1.2, AST 529, ALT 163, alkaline phosphatase 482. CK 79. ETOH level on arrival 452. Urine tox screen positive for benzos and was administered 2 mg lorazepam while in the ED . Ct head/cervical spine negative for any acute intracranial abnormality, fracture, or dislocation. There were degenerative changes noted in the cervical spine. Abdominal U/S failed fatty liver, but no focal lesion. Despite benzodiazepines, patient continued to score of 15 on CIWA scale and was started on phenobarbital per protocol. Addiction medicine will continue to follow for Suboxone management. <DEJAH Felix - Last Filed: 04/28/23 16:57> Review of Systems Review of Systems: General: No fevers, malaise, unintentional weight loss. +general weakness, +falls HEENT: No blurred vision, diplopia. No sore throat, nasal congestion, rhinorrhea, sinus pain, ear pain Cardiovascular: No chest pain, palpitations, or leg edema Respiratory: No shortness of breath, wheezing, cough GI: +decreased PO intake, +nausea, +dry heaves. No abdominal pain vomiting, diarrhea, constipation, melena, hematochezia : No dysuria, hematuria, increased urinary frequency, decreased urinary output MSK: No myalgia, back pain Neuro: No headaches, focal, weakness, paresthesias, confusion. +tremors Skin: +facial rash, +bruising <DEJAH Felix - Last Filed: 04/28/23 16:57> [facility] Medical History: Medical History Encounter for monitoring Suboxone maintenance therapy Hypertension Alcohol use disorder, severe, dependence Opioid use disorder Alcohol abuse <DEJAH Felix - Last Filed: 04/28/23 16:57> Family History: Family History Father Lung cancer <DEJAH Felix - Last Filed: 04/28/23 16:57> Surgical History: Surgical History History of gastric surgery <DEJAH Felix - Last Filed: 04/28/23 16:57> Social History: Social History Household Members: Spouse Housing: House Do you presently have visiting nurse or other home services: No Alcohol intake: current Alcohol intake frequency: 3 or more drinks per day Alcohol type: beer and hard liquor Patient Tobacco Use Status: Former Tobacco user Quit Date: 05/07/21 Tobacco use type: Cigarette Years Smoked: 2 Second Hand Smoke Exposure: No Advance Directives: No Advance Directives Information Provided: No service: No Current occupational status: employed <DEJAH Felix - Last Filed: 04/28/23 16:57> Meds Allergies/Adverse reactions: Allergies Allergy/AdvReac Type Severity Reaction Status Date / Time No Known Allergies Allergy Unverified 03/31/23 14:09 <DEJAH Felix - Last Filed: 04/28/23 16:57> Active Medications: Current Medications Buprenorphine/Naloxone (Buprenorphine/Naloxone 8/2 Mg Film) 1 film SUBLINGUAL DAILY [facility] Chlordiazepoxide HCl (Chlordiazepoxide Hcl 25 Mg Capsule) 50 mg PO Q6H PRN PRN Reason: Alcohol Withdrawal Last Admin: 04/28/23 05:18 Dose: 50 mg Duloxetine HCl (Duloxetine Hcl 60 Mg Capsule.Dr) 60 mg PO DAILY [facility] Gabapentin (Gabapentin 300 Mg Capsule) 300 mg PO DAILY [facility] Thiamine HCl 100 mg/ Sodium (Chloride) 101 mls @ 202 mls/hr IV DAILY [facility] Folic Acid 1 mg/ Sodium (Chloride) 50.2 mls @ 100.4 mls/hr IV DAILY [facility] Stop: 04/30/23 09:29 Sodium Chloride (Ns) 1,000 mls @ 80 mls/hr IVCONT .[id number] [facility] Meclizine HCl (Meclizine Hcl 12.5 Mg Tablet) 12.5 mg PO TID PRN PRN Reason: Nausea And Vomiting Multivitamins/Vitamin C (Multivitamin Tablet) 1 tab PO DAILY [facility] Pharmacy Consult (Consult Rx Etoh Phenob Im/Po) 1 each MISCELLANE ONCE PRN; Protocol PRN Reason: Consult order Phenobarbital (Phenobarbital 15 Mg Tablet) 45 mg PO BID [facility]; Protocol Stop: 04/30/23 21:01 Phenobarbital (Phenobarbital 15 Mg Tablet) 15 mg PO BID [facility]; Protocol Stop: 05/02/23 21:01 Phenobarbital (Phenobarbital 15 Mg Tablet) 15 mg PO DAILY [facility]; Protocol Stop: 05/04/23 09:01 Phenobarbital Sodium (Phenobarbital Sodium 130 Mg/Ml Im Once) 220 mg IM ONCE ONE; Protocol Stop: 04/28/23 12:01 Phenobarbital Sodium (Phenobarbital Sodium 130 Mg/Ml Vial Im Q3hx2) 165 mg IM Q3H [facility]; Protocol Stop: 04/28/23 18:01 <DEJAH Felix Last Filed: 04/28/23 16:57> Home medications: Home Medications Medication Instructions Recorded Confirmed Last Taken Type gabapentin 300 mg capsule 300 mg PO DAILY 04/28/23 04/28/23 04/27/23 History ibuprofen 600 mg tablet 600 mg PO DAILY PRN Pain (Scale 04/28/23 04/28/23 Unknown History Score 4-6) meclizine 12.5 mg tablet 12.5 mg PO TID PRN Nausea And 04/28/23 04/28/23 Unknown History Vomiting multivitamin 1 tab PO DAILY 04/28/23 04/28/23 04/27/23 History <DEJAH Felix Last Filed: 04/28/23 16:57> Physical Exam Vital Signs and Narrative: Vital Signs: Last Vital Signs Temp 98.4 F 04/28/23 10:58 Pulse 99 04/28/23 10:58 Resp 18 04/28/23 10:58 BP 136/106 H 04/28/23 10:58 Pulse Ox 96 04/28/23 10:58 O2 Del Method Room Air 04/28/23 10:58 BMI result Body Mass Index 37.2 <DEJAH Felix Last Filed: 04/28/23 16:57> Constitutional - Awake and Alert, No apparent distress Eyes - PERRLA, EOMI Cardiovascular - S1S2, RRR, No edema Respiratory - Normal lung expansion, Normal respiratory effort, No respiratory distress, CTA bilaterally Gastrointestinal - NT / ND; +BS; No rebound or guarding - dark urine noted in wall canister Extremities - no calf tenderness bilaterally, no swelling Skin - Warm/Dry. Scabbed lesions along the left brow in V1 dermatomal distribution, scabbed lesions around mouth crossing vermilion border. No pustules/intact vesicles noted. no purulent drainage, nttp Neurological - Alert & oriented x3, EOMIs with delayed response and upward R deviation of right eye when assessing when assessing CN IV, otherwise CN II-XII in tact, 5/5 strength BUE and BLE Psychological - Appropriate affect <DEJAH Felix - Last Filed: 04/28/23 16:57> Results Labs CBC and Chem 7: 04/28/23 12:11 04/28/23 12:11 <DEJAH Felix - Last Filed: 04/28/23 16:57> Labs: Laboratory Results - last 24 hr 04/27/23 04/28/23 04/28/23 21:03 06:11 07:25 MCV 93.2 MCH 32.2 MCHC 34.6 RDW 18.9 H Plt Count 190 D MPV 9.6 Immature Gran % (Auto) 0.3 Neut % (Auto) 74.2 H Lymph % (Auto) 16.7 L [place] % (Auto) 8.0 Eos % (Auto) 0.3 Baso % (Auto) 0.5 Lymph # (Auto) 1.0 L [place] # (Auto) 0.5 Eos # (Auto) 0.0 Baso # (Auto) 0.0 Abs Immat Gran (auto) 0.02 Absolute Neuts (auto) 4.5 Absolute Nucleated RBC 0.000 Nucleated RBC % (auto) 0.0 Anion Gap 21 H Estim Creat Clear Calc 127.5 Estimated GFR > 60 POC Glucose 111 Random Glucose 132 H Calcium 8.5 Magnesium 1.7 Total Bilirubin 3.4 H 2.0 H Direct Bilirubin 2.7 H 1.2 H AST 837 H 529 H ALT 180 H 163 H Alkaline Phosphatase 534 H 482 H Total Creatine Kinase 79 Total Protein 7.1 6.9 Albumin 3.8 3.8 Acetaminophen < 3 Ethyl Alcohol 452 H* <DEJAH Felix - Last Filed: 04/28/23 16:57> Imaging Radiologist's Impressions: Impressions Cervical Spine CT 04/27/23 23:40 IMPRESSION: 1. No acute intracranial pathology. 2. No acute fracture or acute malalignment in the cervical spine. 3. Marked multilevel degenerative spondylosis in the cervical spine with chronic anterolisthesis of C4 on C5. Head CT 04/27/23 23:40 IMPRESSION: 1. No acute intracranial pathology. 2. No acute fracture or acute malalignment in the cervical spine. 3. Marked multilevel degenerative spondylosis in the cervical spine with chronic anterolisthesis of C4 on C5. Abdomen Ultrasound 04/28/23 07:34 IMPRESSION: Diffusely increased hepatic echotexture suggesting diffuse fatty infiltration but no focal hepatic lesion or biliary ductal dilatation. <DEJAH Felix - Last Filed: 04/28/23 16:57> Assessment and Plan (1) Elevated liver enzymes: Status: Acute <DEJAH Felix - Last Filed: 04/28/23 16:57> (2) Abnormal neurological exam: Status: Acute <DEJAH Felix - Last Filed: 04/28/23 16:57> (3) Slurred speech: Status: Acute <DEJAH Felix - Last Filed: 04/28/23 16:57> (4) Alcoholic intoxication: Qualifiers: Complication of substance-induced condition: with unspecified complication Qualified Code(s): F10.929 - Alcohol use, unspecified with intoxication, unspecified <DEJAH Felix - Last Filed: 04/28/23 16:57> Status: Acute <DEJAH Felix - Last Filed: 04/28/23 16:57> 52-year-old female with history of genital herpes, unspecified mood disorder, alcohol use disorder, opioid dependence on Suboxone, history polysubstance abuse admitted for further management of acute alcohol withdrawal #Acute alcohol withdrawal -no hx of seziure or DTs -CIWA on admission 13 -Initiate phenobarbital per protocol -IV thiamine x3 days -IV folic acid x3 days -Monitor on CIWA -Addiction team following #Abn CN exam/intermittent slurred speech -Head CT last night negative -Per neuro, do not repeat head CT, check MRI brain -asa 324mg given, continue 81mg daily -lipid profile, start atorvastatin 40mg -neuro checks -swallow eval -stroke edu -consider echo per neuro recs -neurology consult -monitor on tele #Elevated LFTs -likely r/t etoh use, but significantly higher than prior admissions -total bilirubin 2.0, direct bilirubin 1.2, AST 529, ALT 163 -U/S abdomen shows fatty liver, no focal lesion, no obstruction -HIV antibody, hepatitis B/C antibody pending -follow liver panel # opiate dependence -continue suboxone -addiction team following # unspecified mood disorder -continue home meds # herpes simplex virus -facial rash appears consistent with herpes simplex virus. Less likely herpes zoster given clinical presentation -given duration of symptoms greater than 1 week, does not require treatment with antiviral -outpatient follow-up #Weakness/Recurrent falls -multiple bruises on arms, buttock -Head CT/cervical spine CT negative for any intracranial abnormality, subluxation, dislocation, fracture -PT eval DVT prophylaxis-heparin Full code Given significant alcohol withdrawal scoring high on CIWA, patient requires inpatient stay of at least 2 midnights for management with phenobarbital per protocol and close monitoring of withdrawal symptoms to prevent alcohol withdrawal seizure or delirium tremens <DEJAH Felix - Last Filed: 04/28/23 16:57> Quality Stroke Does the patient have a stroke diagnosis?: No <Suzanne Elliott MD - Last Filed: 04/28/23 15:03> VTE Prior VTE?: No <Suzanne Elliott MD - Last Filed: 04/28/23 15:03> VTE Risk Level:: Medical - moderate - high <DEJAH Felix - Last Filed: 04/28/23 16:57> VTE Device Contraindication: Treatment Not Indicated <DEJAH Felix - Last Filed: 04/28/23 16:57> VTE Drug Contraindication: N/A - Med Ordered <DEJAH Felix - Last Filed: 04/28/23 16:57>
[2023-04-28 12:15] LABS: MANUAL DIFF FLAG NO
[2023-04-28 12:18] LABS: Basophils Percent Auto 0.4 % (0-2); Eosinophils Absolute Auto 0.1 X10*3/uL (0.0-0.4); Eosinophils Percent Auto 1.1 % (0-4); Hematocrit 36.3 % (37.0-47.0); Hemoglobin 12.5 g/dl (12.0-16.0); Imm Gran Abs Auto 0.02 X10*3/uL (0.00-0.03); Imm Gran Pct Auto 0.4 % (0.0-0.4); Lymphocytes Absolute Auto 0.6 X10*3/uL (1.2-4.9); Lymphocytes Percent Auto 12.8 % (20-40); Mean Corpuscular HGB Conc 34.4 g/dl (31.0-35.0); Mean Corpuscular Hemoglobin 32.6 pg (27.0-33.0); Mean Corpuscular Volume 94.5 fL (80.0-98.0); Mean Platelet Volume 9.2 fL (9.4-12.3); Monocytes Absolute Auto 0.3 X10*3/uL (0.1-1.2); Monocytes Percent Auto 6.3 % (2-11); Neutrophils Absolute Auto 3.6 x10*3/uL (2.0-8.3); Platelet Count 156 X10*3/uL (160-400); Red Blood Count 3.84 X10*6/uL (4.20-5.50); Red Cell Distribution Width 18.5 % (11.0-16.0); White Blood Count 4.6 X10*3/uL (4.8-10.8)
[2023-04-28 12:19] LABS: Amphetamine Screen Urine Not Detected (Not Detect); Barbiturates, Urine Not Detected (Not Detect); Benzodiazepines Screen Urine POSITIVE (Not Detect); Cannabinoid Screen Urine Not Detected (Not Detect); Cocaine Screen Urine Not Detected (Not Detect); Fentanyl, urine Not Detected (Not Detect); Opiate Screen Urine Not Detected (Not Detect); Phencyclidine Screen Urine Not Detected (Not Detect)
[2023-04-28 12:31] LABS: INTERNATIONAL NORM RATIO 0.9 (0.9-1.1); Prothrombin Time 10.7 SEC (11.1-13.3)
[2023-04-28 12:32] LABS: Anion Gap 16 (12-20); Blood Urea Nitrogen 8 mg/dL (9-16); Calcium 9.2 mg/dL (8.4-10.2); Carbon Dioxide 31 mmol/L (22-29); Chloride 95 mmol/L (96-108); Creatinine Clr Calc Pharmacy 116.3; Estimated Glomerular Filt Rate > 60; Glucose Random 184 mg/dL (60-115); Potassium 3.8 mmol/L (3.3-5.1); Sodium 138 mmol/L (135-145)
[2023-04-28 12:34] LABS: Partial Thromboplastin Time 29.7 SEC (26.0-36.4)
[2023-04-28 12:52] LABS: HBS Num1 44.45 mIU/mL (0-7.99); HBc Num1 0.07 S/CO (0.00-0.79); HBsAGNum1 0.24 S/CO (0.00-0.99); HIV AB/AG Nonreactive (Nonreactive); HIV Num 1 0.05 S/CO (0.00-0.99); Hepatitis B Core Antibody Nonreactive (Nonreactive); Hepatitis B Surface Antigen Negative (Negative); ~HepC Num1 0.09 S/CO (0.00-0.79); ~Hepatitis B Surface Antibody REACTIVE (Nonreactive); ~Hepatitis C Antibody Nonreactive (Nonreactive)
[2023-04-28] MEDS: Heparin Sodium,Porcine 5,000 UNIT/ML VIAL 5000 UNIT SUBCUT ×2 (13:06→23:40)
[2023-04-28] MEDS: DULoxetine HCl 60 MG CAPSULE.DR PO (13:06)
[2023-04-28] MEDS: Gabapentin 300 MG CAPSULE PO (13:06)
[2023-04-28] MEDS: Multivitamin TABLET 1 TAB PO (13:06)
[2023-04-28] MEDS: Folic Acid 1 MG in 0.9 % Sodium Chloride 50 ML 100.4 MG IV (13:07)
[2023-04-28] MEDS: Buprenorphine/Naloxone 8/2 mg FILM 1 FILM SUBLINGUAL (13:07)
[2023-04-28] MEDS: 0.9 % Sodium Chloride 1,000 ML 80 ML IVCONT (13:10)
[2023-04-28] MEDS: Thiamine HCL 100 MG in 0.9 % Sodium Chloride 100 ML 202 MG IV (14:00)
--- NOTE | 2023-04-28 16:17 | MHC.RECOVRN ---
Met with pt in ED3 after pt presented to the ED with AUD. Pt also currently a patient of the [facility], is prescribed Suboxone 8 mg daily. Pt laying in bed, asleep, wakes to voice, appears uncomfortable and slightly tremulous. Pt reports alcohol use, up to 1.75 liters vodka daily x 8 months. Pt reports last opioid use over 20 years ago. Pt currently experiencing alcohol withdrawal symptoms, difficult to engage in conversation regarding recovery. Discussed with provider, plan for admission. Will continue to follow. Discussed with Yazmin Mckinnon APRN.
[2023-04-28 16:28] LABS: Estimated Average Glucose 85 mg/dL; Hemoglobin A1c % 4.6 % (<6.0)
[2023-04-28 16:35] LABS: Cholesterol 344 mg/dL (<200); HDL Cholesterol 110 mg/dL (>40); LDL Cholesterol Calculated 218 mg/dL (<100); Triglycerides 84 mg/dL (<150)
[2023-04-28] MEDS: PHENobarbitaL sodium 130 MG/ML VIAL IM Q3Hx2 165 MG IM ×2 (16:43→18:19)
[2023-04-28] MEDS: Aspirin 81 MG TAB.CHEW 324 MG PO (17:22)
--- NOTE | 2023-04-28 18:17 | MHC.EDTECH ---
Patient given dinner tray
[2023-04-29 03:11] VITALS: BP 142/86; PULSE 84; RESP 17; TEMP 36.7; O2SAT 96
[2023-04-29] MEDS: chlordiazePOXIDE HCl 25 MG CAPSULE 50 MG PO ×3 (03:15→18:40)
[2023-04-29] MEDS: 0.9 % Sodium Chloride 1,000 ML 80 ML IVCONT ×2 (04:29→17:07)
[2023-04-29 05:33] LABS: MANUAL DIFF FLAG NO
[2023-04-29 05:36] LABS: Basophils Percent Auto 0.7 % (0-2); Eosinophils Absolute Auto 0.1 X10*3/uL (0.0-0.4); Eosinophils Percent Auto 4.5 % (0-4); Hematocrit 32.8 % (37.0-47.0); Hemoglobin 10.9 g/dl (12.0-16.0); Imm Gran Abs Auto 0.01 X10*3/uL (0.00-0.03); Imm Gran Pct Auto 0.3 % (0.0-0.4); Lymphocytes Absolute Auto 0.5 X10*3/uL (1.2-4.9); Lymphocytes Percent Auto 18.1 % (20-40); Mean Corpuscular HGB Conc 33.2 g/dl (31.0-35.0); Mean Corpuscular Hemoglobin 32.6 pg (27.0-33.0); Mean Corpuscular Volume 98.2 fL (80.0-98.0); Mean Platelet Volume 9.8 fL (9.4-12.3); Monocytes Absolute Auto 0.2 X10*3/uL (0.1-1.2); Monocytes Percent Auto 6.3 % (2-11); NRBC Pct Auto 0.7 /100WBC (0.0-0.2); Neutrophils Percent Auto 70.1 % (45-73); Platelet Count 113 X10*3/uL (160-400); Red Blood Count 3.34 X10*6/uL (4.20-5.50); Red Cell Distribution Width 17.9 % (11.0-16.0); White Blood Count 2.9 X10*3/uL (4.8-10.8)
[2023-04-29 05:47] LABS: Anion Gap 16 (12-20); Blood Urea Nitrogen 13 mg/dL (9-16); Carbon Dioxide 29 mmol/L (22-29); Chloride 97 mmol/L (96-108); Creatinine Clr Calc Pharmacy 123.6; Estimated Glomerular Filt Rate > 60; Glucose Random 97 mg/dL (60-115); Potassium 3.5 mmol/L (3.3-5.1); Sodium 138 mmol/L (135-145)
[2023-04-29 07:40] VITALS: BP 140/86; PULSE 90; RESP 16; TEMP 36; O2SAT 97
[2023-04-29 07:56] LABS: Alanine Aminotransferase 102 U/L (0-31); Albumin Level 3.3 g/dL (3.5-5.0); Alkaline Phosphatase 364 U/L (39-117); Aspartate Amino Transferase 202 U/L (5-31); Bilirubin Total 1.8 mg/dL (0.0-1.0)
[2023-04-29] MEDS: Gabapentin 300 MG CAPSULE PO (08:32)
[2023-04-29] MEDS: PHENobarbitaL 15 MG TABLET 45 MG PO ×2 (08:32→20:28)
[2023-04-29] MEDS: Buprenorphine/Naloxone 8/2 mg FILM 1 FILM SUBLINGUAL (08:32)
[2023-04-29] MEDS: Aspirin Enteric Coated 81 MG TABLET.DR PO (08:32)
[2023-04-29] MEDS: DULoxetine HCl 60 MG CAPSULE.DR PO (08:32)
[2023-04-29] MEDS: Folic Acid 1 MG in 0.9 % Sodium Chloride 50 ML 100.4 MG IV (08:32)
[2023-04-29] MEDS: Multivitamin TABLET 1 TAB PO (08:32)
[2023-04-29] MEDS: Atorvastatin Calcium 40 MG TABLET PO (08:32)
[2023-04-29 09:07] VITALS: BP 140/86; PULSE 90; O2SAT 97
[2023-04-29] MEDS: Thiamine HCL 100 MG in 0.9 % Sodium Chloride 100 ML 202 MG IV (09:34)
--- NOTE | 2023-04-29 09:41 | MHC.CM.PN ---
pt lives with her has own ride home was reently in detox and a sober house pt on suboxone dc plan home to be seen bu care team prior to dc
[2023-04-29] MEDS: Acetaminophen 325 MG TABLET 650 MG PO (10:38)
[2023-04-29] MEDS: ondansetron HCL 4 MG/2 ML VIAL IVPUSH (10:38)
[2023-04-29] MEDS: Meclizine HCl 12.5 MG TABLET PO (10:38)
[2023-04-29] MEDS: PHENobarbitaL sodium 130 MG/ML VIAL IM (11:00)
--- NOTE | 2023-04-29 11:30 | HO.PM.IMPN ---
Subjective Subjective Date of Service: 04/29/23 Interval History: alcohol withdrawal Review of Systems seems still anxious, tremulous No fever or chills. Physical Exam Vital Signs: Vital Signs: Last Vital Signs Temp 96.8 F 04/29/23 07:40 Pulse 90 04/29/23 09:07 Resp 16 04/29/23 07:40 BP 140/86 H 04/29/23 09:07 Pulse Ox 97 04/29/23 09:07 O2 Del Method Room Air 04/29/23 07:40 BMI result Body Mass Index 38.1 Appearance: Alert.? Oriented X3.?anxious ,tramulous cvs: rrr, [id number] . res: clear to auscultation ,no rhonchii or wheezing abd: no rebound or guarding ,nt, bs present. ext pulses present , no cyanosis . neuro: axo3 , nonfocal. Objective Data Active Medications Acetaminophen (Acetaminophen 325 Mg Tablet) 650 mg PO Q6H PRN PRN Reason: Pain, Mild (Pain Scale 1-3) Last Admin: 04/29/23 10:38 Dose: 650 mg Documented By: [email or web address] Aspirin (Aspirin Enteric Coated 81 Mg Tablet.) 81 mg PO DAILY [facility] Last Admin: 04/29/23 08:32 Dose: 81 mg Documented By: [email or web address].COTEMA Atorvastatin Calcium (Atorvastatin Calcium 40 Mg Tablet) 40 mg PO DAILY [facility] Last Admin: 04/29/23 08:32 Dose: 40 mg Documented By: [email or web address].COTEMA Buprenorphine/Naloxone (Buprenorphine/Naloxone 8/2 Mg Film) 1 film SUBLINGUAL DAILY [facility] Last Admin: 04/29/23 08:32 Dose: 1 film Documented By: [email or web address] Chlordiazepoxide HCl (Chlordiazepoxide Hcl 25 Mg Capsule) 50 mg PO Q6H PRN PRN Reason: Alcohol Withdrawal Last Admin: 04/29/23 03:15 Dose: 50 mg Documented By: [email or web address] Duloxetine HCl (Duloxetine Hcl 60 Mg Capsule.) 60 mg PO DAILY [facility] Last Admin: 04/29/23 08:32 Dose: 60 mg Documented By: ENRRIQUE.COTEMA Gabapentin (Gabapentin 300 Mg Capsule) 300 mg PO DAILY [facility] Last Admin: 04/29/23 08:32 Dose: 300 mg Documented By: ENRRIQUE.COTEMA Heparin Sodium (Porcine) (Heparin Sodium,Porcine 5,000 Unit/Ml Vial) 5,000 unit SUBCUT Q12H [facility] Last Admin: 04/28/23 23:40 Dose: 5,000 unit Documented By: MARITA Thiamine HCl 100 mg/ Sodium (Chloride) 101 mls @ 202 mls/hr IV DAILY [facility] Last Infusion: 04/29/23 10:10 Dose: Infused Documented By: PEDRO Folic Acid 1 mg/ Sodium (Chloride) 50.2 mls @ 100.4 mls/hr IV DAILY [facility] Stop: 04/30/23 09:29 Last Infusion: 04/29/23 09:33 Dose: Infused Documented By: PEDRO Sodium Chloride (Ns) 1,000 mls @ 80 mls/hr IVCONT .[id number] [facility] Last Admin: 04/29/23 04:29 Dose: 80 mls/hr Documented By: AMRITA Lorazepam (Lorazepam 1 Mg Tablet) 1 mg PO ONCE PRN PRN Reason: anxiety pre-mri Meclizine HCl (Meclizine Hcl 12.5 Mg Tablet) 12.5 mg PO TID PRN PRN Reason: Nausea And Vomiting Last Admin: 04/29/23 10:38 Dose: 12.5 mg Documented By: PEDRO Multivitamins/Vitamin C (Multivitamin Tablet) 1 tab PO DAILY [facility] Last Admin: 04/29/23 08:32 Dose: 1 tab Documented By: PEDRO Ondansetron HCl (Ondansetron Hcl 4 Mg/2 Ml Vial) 4 mg IVPUSH Q8H PRN PRN Reason: Nausea and Vomiting Last Admin: 04/29/23 10:38 Dose: 4 mg Documented By: PEDRO Pharmacy Consult (Consult Rx Etoh Phenob Im/Po) 1 each MISCELLANE ONCE PRN; Protocol PRN Reason: Consult order Phenobarbital (Phenobarbital 15 Mg Tablet) 45 mg PO BID [facility]; Protocol Stop: 04/30/23 21:01 Last Admin: 04/29/23 08:32 Dose: 45 mg Documented By: COTSTEVAN Phenobarbital (Phenobarbital 15 Mg Tablet) 15 mg PO BID [facility]; Protocol Stop: 05/02/23 21:01 Phenobarbital (Phenobarbital 15 Mg Tablet) 15 mg PO DAILY [facility]; Protocol Stop: 05/04/23 09:01 Senna (Sennosides 8.6 Mg Tablet) 17.2 mg PO BEDTIME PRN PRN Reason: Constipation Sodium Chloride (0.9 % Sodium Chloride Flush 3 Ml Syringe) 3 ml IVFLUSH QSHIFT [facility] Last Admin: 04/29/23 07:12 Dose: Not Given Documented By: PEDRO Non-Admin Reason: IV Running Labs 04/29/23 05:17 04/29/23 05:17 Labs: Laboratory Results - last 24 hr 04/28/23 04/28/23 04/29/23 12:06 12:11 05:17 MCV 94.5 98.2 H MCH 32.6 32.6 MCHC 34.4 33.2 RDW 18.5 H 17.9 H Plt Count 156 L 113 L D MPV 9.2 L 9.8 Immature Gran % (Auto) 0.4 0.3 Neut % (Auto) 79.0 H 70.1 Lymph % (Auto) 12.8 L 18.1 L [place] % (Auto) 6.3 6.3 Eos % (Auto) 1.1 4.5 H Baso % (Auto) 0.4 0.7 Lymph # (Auto) 0.6 L 0.5 L [place] # (Auto) 0.3 0.2 Eos # (Auto) 0.1 0.1 Baso # (Auto) 0.0 0.0 Abs Immat Gran (auto) 0.02 0.01 Absolute Neuts (auto) 3.6 2.0 Absolute Nucleated RBC 0.000 0.020 H Nucleated RBC % (auto) 0.0 0.7 H PT 10.7 L INR 0.9 APTT 29.7 Anion Gap 16 16 Estim Creat Clear Calc 116.3 123.6 Estimated GFR > 60 > 60 Random Glucose 184 H 97 Estimat Average Glucose 85 Hemoglobin A1c % 4.6 Calcium 9.2 D 9.0 Total Bilirubin 1.8 H Direct Bilirubin 1.0 H AST 202 H ALT 102 H Alkaline Phosphatase 364 H Total Protein 6.0 L Albumin 3.3 L Triglycerides 84 Cholesterol 344 H LDL Cholesterol, Calc 218 H HDL Cholesterol 110 Urine Opiates Screen Not Detected Urine Fentanyl Screen Not Detected Ur Barbiturates Screen Not Detected Ur Phencyclidine Scrn Not Detected Ur Amphetamines Screen Not Detected U Benzodiazepines Scrn POSITIVE H Urine Cocaine Screen Not Detected U Marijuana (THC) Screen Not Detected Hep Bs Antigen Negative Hep Bs Antibody REACTIVE Hep B Core Total Ab Nonreactive Hepatitis C Ab (EIA) Nonreactive HIV 1&2 Ab/P24 Ag 4thGn Nonreactive Assessment and Plan (1) Slurred speech: Status: Acute (2) Elevated liver enzymes: Status: Acute Plan 52-year-old female with history of genital herpes, unspecified mood disorder, alcohol use disorder, opioid dependence on Suboxone, history polysubstance abuse admitted for further management of acute alcohol withdrawal Acute alcohol withdrawal no hx of seziure or DTs,CIWA today is 15 continue phenobarbital,added additional [id number] mg ,thiamine, folic acid -Monitor on CIWA -Addiction team following Abn CN exam/intermittent slurred speech Head CT last night negative Per neuro, do not repeat head CT, MRI pending continue continue 81mg daily, start atorvastatin 40mg neuro checks,swallow eval,neurology consult Elevated LFTs-likely r/t etoh use, but significantly higher than prior admissions total bilirubin 2.0, direct bilirubin 1.2, AST 529, ALT 163 U/S abdomen shows fatty liver, no focal lesion, no obstruction HIV antibody, hepatitis B/C antibody pending follow liver panel opiate dependence continue suboxone,addiction team following unspecified mood disorder-continue home meds. facial rash: -given duration of symptoms greater than 1 week, does not require treatment with antiviral -outpatient follow-up Weakness/Recurrent falls -multiple bruises on arms, buttock -Head CT/cervical spine CT negative for any intracranial abnormality, subluxation, dislocation, fracture -PT eval DVT prophylaxis-heparin [facility]: alcohol withdrawal scoring high on CIWA, patient requires inpatient stay of at least 2 midnights for management with phenobarbital per protocol and close monitoring of withdrawal symptoms to prevent alcohol withdrawal seizure or delirium tremens Quality Stroke Does the patient have a stroke diagnosis?: No VTE Prior VTE?: No VTE Risk Level:: Medical - moderate - high VTE Device Contraindication: Treatment Not Indicated VTE Drug Contraindication: N/A - Med Ordered
[2023-04-29] MEDS: Heparin Sodium,Porcine 5,000 UNIT/ML VIAL 5000 UNIT SUBCUT (11:34)
--- NOTE | 2023-04-29 15:05 | MHC.RECOVRN ---
Met with pt in 353 to follow up and provide support. Pt awake, alert, easily engages in conversation, eating lunch. Pt reports feeling better, however, is still experiencing withdrawal symptoms including tremor. Pt received additional IM phenobarb this morning. Pt denies other concerns at this time. T/w available as needed.
[2023-04-29 15:24] VITALS: BP 152/84; PULSE 86; RESP 18; TEMP 36.2; O2SAT 98
--- NOTE | 2023-04-29 15:43 | W.PM.IDCN ---
History of Present Illness Data of Consult Service Date: 04/29/23 Requesting physician: Suzanne Elliott Primary Care Provider: Baljeet Perry MD HPI Reason for consult: facial lesions She presents with intoxication and weakness. She is getting alcohol withdrawal protocol. She has reddened areas left face. Review of Systems Review of Systems: Yes all other systems are reviewed and are negative PMFSH Past Medical History Medical History Rash Encounter for monitoring Suboxone maintenance therapy Hypertension Alcohol use disorder, severe, dependence Opioid use disorder Alcohol abuse Family History Family History Father Lung cancer Family history: reviewed and not pertinent Surgical History Surgical History History of gastric surgery Social History Social History Household Members: Spouse Housing: House Do you presently have visiting nurse or other home services: No Alcohol intake: current Alcohol intake frequency: 3 or more drinks per day Alcohol type: beer and hard liquor Patient Tobacco Use Status: Former Tobacco user Quit Date: 2022 Tobacco use type: Cigarette Years Smoked: 2 Smoked in Last 30 Days: No Patient Interested in Nicotine Replacement: No Patient Given Instructions on How to Stop Smoking: No Second Hand Smoke Exposure: No Use of substances other than those prescribed or required for medical reasons: No Currently Displaying Signs/Symptoms of Drug Intoxication Withdrawal: No Have you been hit, kicked, punched, or otherwise hurt by someone within the past year? If so, by whom?: No Do you feel safe in your current relationship?: Yes Is there a partner from a previous relationship who is making you feel unsafe now?: No Are you made to feel afraid or neglected: No Advance Directives: No Advance Directives Information Provided: No Do you have thoughts of harming others: None Do you have a plan to hurt others: No Plan Recently lost weight without trying: No How much weight loss: Not applicable Eating poorly because of decreased appetite: No Nutrition screen score: 0 Nutrition Risks: No Nutritional Risk Patient : No : No Poor oral hygiene: No service: No Current occupational status: employed Meds Allergies Allergy/AdvReac Type Severity Reaction Status Date / Time No Known Allergies Allergy Unverified 03/31/23 14:09 Active Medications: Current Medications Acetaminophen (Acetaminophen 325 Mg Tablet) 650 mg PO Q6H PRN PRN Reason: Pain, Mild (Pain Scale 1-3) Last Admin: 04/29/23 10:38 Dose: 650 mg Aspirin (Aspirin Enteric Coated 81 Mg Tablet.) 81 mg PO DAILY [facility] Last Admin: 04/29/23 08:32 Dose: 81 mg Atorvastatin Calcium (Atorvastatin Calcium 40 Mg Tablet) 40 mg PO DAILY [facility] Last Admin: 04/29/23 08:32 Dose: 40 mg Buprenorphine/Naloxone (Buprenorphine/Naloxone 8/2 Mg Film) 1 film SUBLINGUAL DAILY [facility] Last Admin: 04/29/23 08:32 Dose: 1 film Chlordiazepoxide HCl (Chlordiazepoxide Hcl 25 Mg Capsule) 50 mg PO Q6H PRN PRN Reason: Alcohol Withdrawal Last Admin: 04/29/23 12:45 Dose: 50 mg Duloxetine HCl (Duloxetine Hcl 60 Mg Capsule.) 60 mg PO DAILY [facility] Last Admin: 04/29/23 08:32 Dose: 60 mg Gabapentin (Gabapentin 300 Mg Capsule) 300 mg PO DAILY [facility] Last Admin: 04/29/23 08:32 Dose: 300 mg Heparin Sodium (Porcine) (Heparin Sodium,Porcine 5,000 Unit/Ml Vial) 5,000 unit SUBCUT Q12H [facility] Last Admin: 04/29/23 11:34 Dose: 5,000 unit Thiamine HCl 100 mg/ Sodium (Chloride) 101 mls @ 202 mls/hr IV DAILY [facility] Last Infusion: 04/29/23 10:10 Dose: Infused Folic Acid 1 mg/ Sodium (Chloride) 50.2 mls @ 100.4 mls/hr IV DAILY [facility] Stop: 04/30/23 09:29 Last Infusion: 04/29/23 09:33 Dose: Infused Sodium Chloride (Ns) 1,000 mls @ 80 mls/hr IVCONT .[id number] [facility] Last Admin: 04/29/23 04:29 Dose: 80 mls/hr Lorazepam (Lorazepam 1 Mg Tablet) 1 mg PO ONCE PRN PRN Reason: anxiety pre-mri Meclizine HCl (Meclizine Hcl 12.5 Mg Tablet) 12.5 mg PO TID PRN PRN Reason: Nausea And Vomiting Last Admin: 04/29/23 10:38 Dose: 12.5 mg Multivitamins/Vitamin C (Multivitamin Tablet) 1 tab PO DAILY [facility] Last Admin: 04/29/23 08:32 Dose: 1 tab Ondansetron HCl (Ondansetron Hcl 4 Mg/2 Ml Vial) 4 mg IVPUSH Q8H PRN PRN Reason: Nausea and Vomiting Last Admin: 04/29/23 10:38 Dose: 4 mg Pharmacy Consult (Consult Rx Etoh Phenob Im/Po) 1 each MISCELLANE ONCE PRN; Protocol PRN Reason: Consult order Phenobarbital (Phenobarbital 15 Mg Tablet) 45 mg PO BID [facility]; Protocol Stop: 04/30/23 21:01 Last Admin: 04/29/23 08:32 Dose: 45 mg Phenobarbital (Phenobarbital 15 Mg Tablet) 15 mg PO BID [facility]; Protocol Stop: 05/02/23 21:01 Phenobarbital (Phenobarbital 15 Mg Tablet) 15 mg PO DAILY [facility]; Protocol Stop: 05/04/23 09:01 Senna (Sennosides 8.6 Mg Tablet) 17.2 mg PO BEDTIME PRN PRN Reason: Constipation Sodium Chloride (0.9 % Sodium Chloride Flush 3 Ml Syringe) 3 ml IVFLUSH QSHIFT [facility] Last Admin: 04/29/23 14:07 Dose: Not Given Home Medications Medication Instructions Recorded Confirmed Last Taken Type gabapentin 300 mg capsule 300 mg PO DAILY 04/28/23 04/28/23 04/27/23 History ibuprofen 600 mg tablet 600 mg PO DAILY PRN Pain (Scale 04/28/23 04/28/23 Unknown History Score 4-6) meclizine 12.5 mg tablet 12.5 mg PO TID PRN Nausea And 04/28/23 04/28/23 Unknown History Vomiting multivitamin 1 tab PO DAILY 04/28/23 04/28/23 04/27/23 History Physical Exam Vital Signs: Vital Signs: Last Vital Signs Temp 97.1 F 04/29/23 15:24 Pulse 86 04/29/23 15:24 Resp 18 04/29/23 15:24 BP 152/84 H 04/29/23 15:24 Pulse Ox 98 04/29/23 15:24 O2 Del Method Room Air 04/29/23 15:24 BMI result Body Mass Index 38.1 Const: General: cooperative HEENT: Head: Yes normal to inspection Face and sinus: Yes normal facial exam Mouth: Normal oral and palatal mucosa present Teeth and gingiva: dentition normal Eyes: General: appearance normal, both eyes and all related structures Pupils: Equal, round and reactive pupils present Resp: Effort & Inspection: normal respiratory effort Cardio: Rate: regular rate Rhythm: regular rhythm GI: Palpation (GI): Soft to palpation and nontender : General: Yes no CVA tenderness Back/Spine/Pelvis: Back: no CVA tenderness Skin: Other: left facial scabbed area Neuro: General: moves all extremities Cranial nerves: Yes Equal, round and reactive pupils present Extrem: General: Yes normal to inspection Psych: Appearance: grossly normal Results Labs 04/29/23 05:17 04/29/23 05:17 Labs: Short CBC 04/29/23 Range/Units 05:17 WBC 2.9 L (4.8-10.8) X10*3/uL Hgb 10.9 L (12.0-16.0) g/dl Hct 32.8 L (37.0-47.0) % Plt Count 113 L D (160-400) X10*3/uL BMP 04/29/23 05:17 Sodium 138 Potassium 3.5 Chloride 97 Carbon Dioxide 29 BUN 13 Creatinine 0.60 Calcium 9.0 Liver Function 04/29/23 Range/Units 05:17 Total Bilirubin 1.8 H (0.0-1.0) mg/dL Direct Bilirubin 1.0 H (0.0-0.5) mg/dL AST 202 H (5-31) U/L ALT 102 H (0-31) U/L Alkaline Phosphatase 364 H (39-117) U/L Albumin 3.3 L (3.5-5.0) g/dL Assessment and Plan (1) Rash: Status: Acute Area appears some neurodermatitis There doesnt appear to be zoster or herpes simplex Plan No treatment Would discontinue topical to area.
--- NOTE | 2023-04-29 18:16 | P.CNNE_ITS ---
History of Present Illness Data of Consult Service Date: 04/29/23 Primary Care Provider: Baljeet Perry MD [facility] Reason for consult: alcohol intox. Abnormal eye movements This is 52-year-old female with history of mood disorder, alcohol use disorder, opioid dependence on Suboxone, history polysubstance abuse, presented to the ED due to acute alcohol intoxication with multiple falls. The patient states that she had been living in a sober home for about 8 months but then returned to the area and began drinking again. She states that she does try to abstain from alcohol but her continues to drink. Last night, she reports she consumed 1.75 L of vodka and blacked out. Reports she started drinking to manage withdrawal symptoms including shakes. She denies any history of DTs or alcohol withdrawal seizures though has been admitted several times for alcohol withdrawal. She denies any ongoing illicit substance use. Currently she is reporting tremors, nausea, dry heaves, intermittent slurred speech and word- finding difficulty. She states last night she feels she was experiencing visual and auditory hallucinations but denies any ongoing hallucinations. She denies any confusion. She did sustain multiple falls per her report the does not recall if she hit her head or lost consciousness. She also reports gait instability and weakness as well as decreased PO intake r/t her alcohol consumption. She follows with the [facility] for her Suboxone management. She is now back to her baseline. She is alert andd oriented. She has no diplopia or other eye symptoms. In Mayhe was admitted with a hyponatremia of the 120 which was correccted over 48 hours. No MRI was done at that time. Current MRI shows white matter changes, which are microvascular as well as a ssignificant central pontine area of abnormality which could be either microvascular or related to mild forrm of centrral pontine myelolysis, which may have occurred during that episode in 2021 Review of Systems 2 Review of Systems: seems still anxious, tremulous No fever or chills. Yes all other systems are reviewed and are negative PMFSH Past Medical History Medical History Rash Encounter for monitoring Suboxone maintenance therapy Hypertension Alcohol use disorder, severe, dependence Opioid use disorder Alcohol abuse Family History Family History Father Lung cancer Family history: reviewed and not pertinent Surgical History Surgical History History of gastric surgery Social History Social History Household Members: Spouse Housing: House Do you presently have visiting nurse or other home services: No Alcohol intake: current Alcohol intake frequency: 3 or more drinks per day Alcohol type: beer and hard liquor Patient Tobacco Use Status: Former Tobacco user Quit Date: 2022 Tobacco use type: Cigarette Years Smoked: 2 Smoked in Last 30 Days: No Patient Interested in Nicotine Replacement: No Patient Given Instructions on How to Stop Smoking: No Second Hand Smoke Exposure: No Use of substances other than those prescribed or required for medical reasons: No Currently Displaying Signs/Symptoms of Drug Intoxication Withdrawal: No Have you been hit, kicked, punched, or otherwise hurt by someone within the past year? If so, by whom?: No Do you feel safe in your current relationship?: Yes Is there a partner from a previous relationship who is making you feel unsafe now?: No Are you made to feel afraid or neglected: No Advance Directives: No Advance Directives Information Provided: No Do you have thoughts of harming others: None Do you have a plan to hurt others: No Plan Recently lost weight without trying: No How much weight loss: Not applicable Eating poorly because of decreased appetite: No Nutrition screen score: 0 Nutrition Risks: No Nutritional Risk Patient : No : No Poor oral hygiene: No service: No Current occupational status: employed Meds Allergies Allergy/AdvReac Type Severity Reaction Status Date / Time No Known Allergies Allergy Unverified 03/31/23 14:09 Active Medications: Current Medications Acetaminophen (Acetaminophen 325 Mg Tablet) 650 mg PO Q6H PRN PRN Reason: Pain, Mild (Pain Scale 1-3) Last Admin: 04/29/23 10:38 Dose: 650 mg Aspirin (Aspirin Enteric Coated 81 Mg Tablet.Dr) 81 mg PO DAILY [facility] Last Admin: 04/29/23 08:32 Dose: 81 mg Atorvastatin Calcium (Atorvastatin Calcium 40 Mg Tablet) 40 mg PO DAILY [facility] Last Admin: 04/29/23 08:32 Dose: 40 mg Buprenorphine/Naloxone (Buprenorphine/Naloxone 8/2 Mg Film) 1 film SUBLINGUAL DAILY [facility] Last Admin: 04/29/23 08:32 Dose: 1 film Chlordiazepoxide HCl (Chlordiazepoxide Hcl 25 Mg Capsule) 50 mg PO Q6H PRN PRN Reason: Alcohol Withdrawal Last Admin: 04/29/23 12:45 Dose: 50 mg Duloxetine HCl (Duloxetine Hcl 60 Mg Capsule.Dr) 60 mg PO DAILY [facility] Last Admin: 04/29/23 08:32 Dose: 60 mg Gabapentin (Gabapentin 300 Mg Capsule) 300 mg PO DAILY [facility] Last Admin: 04/29/23 08:32 Dose: 300 mg Heparin Sodium (Porcine) (Heparin Sodium,Porcine 5,000 Unit/Ml Vial) 5,000 unit SUBCUT Q12H [facility] Last Admin: 04/29/23 11:34 Dose: 5,000 unit Thiamine HCl 100 mg/ Sodium (Chloride) 101 mls @ 202 mls/hr IV DAILY [facility] Last Infusion: 04/29/23 10:10 Dose: Infused Folic Acid 1 mg/ Sodium (Chloride) 50.2 mls @ 100.4 mls/hr IV DAILY [facility] Stop: 04/30/23 09:29 Last Infusion: 04/29/23 09:33 Dose: Infused Sodium Chloride (Ns) 1,000 mls @ 80 mls/hr IVCONT .[id number] [facility] Last Admin: 04/29/23 17:07 Dose: 80 mls/hr Lorazepam (Lorazepam 1 Mg Tablet) 1 mg PO ONCE PRN PRN Reason: anxiety pre-mri Meclizine HCl (Meclizine Hcl 12.5 Mg Tablet) 12.5 mg PO TID PRN PRN Reason: Nausea And Vomiting Last Admin: 04/29/23 10:38 Dose: 12.5 mg Multivitamins/Vitamin C (Multivitamin Tablet) 1 tab PO DAILY [facility] Last Admin: 04/29/23 08:32 Dose: 1 tab Ondansetron HCl (Ondansetron Hcl 4 Mg/2 Ml Vial) 4 mg IVPUSH Q8H PRN PRN Reason: Nausea and Vomiting Last Admin: 04/29/23 10:38 Dose: 4 mg Pharmacy Consult (Consult Rx Etoh Phenob Im/Po) 1 each MISCELLANE ONCE PRN; Protocol PRN Reason: Consult order Phenobarbital (Phenobarbital 15 Mg Tablet) 45 mg PO BID [facility]; Protocol Stop: 04/30/23 21:01 Last Admin: 04/29/23 08:32 Dose: 45 mg Phenobarbital (Phenobarbital 15 Mg Tablet) 15 mg PO BID [facility]; Protocol Stop: 05/02/23 21:01 Phenobarbital (Phenobarbital 15 Mg Tablet) 15 mg PO DAILY [facility]; Protocol Stop: 05/04/23 09:01 Senna (Sennosides 8.6 Mg Tablet) 17.2 mg PO BEDTIME PRN PRN Reason: Constipation Sodium Chloride (0.9 % Sodium Chloride Flush 3 Ml Syringe) 3 ml IVFLUSH QSHIFT [facility] Last Admin: 04/29/23 14:07 Dose: Not Given Home Medications Medication Instructions Recorded Confirmed Last Taken Type gabapentin 300 mg capsule 300 mg PO DAILY 04/28/23 04/28/23 04/27/23 History ibuprofen 600 mg tablet 600 mg PO DAILY PRN Pain (Scale 04/28/23 04/28/23 Unknown History Score 4-6) meclizine 12.5 mg tablet 12.5 mg PO TID PRN Nausea And 04/28/23 04/28/23 Unknown History Vomiting multivitamin 1 tab PO DAILY 04/28/23 04/28/23 04/27/23 History Physical Exam 2 Vital Signs: Vital Signs: Last Vital Signs Temp 97.1 F 04/29/23 15:24 Pulse 86 04/29/23 15:24 Resp 18 04/29/23 15:24 BP 152/84 H 04/29/23 15:24 Pulse Ox 98 04/29/23 15:24 O2 Del Method Room Air 04/29/23 15:24 BMI result Body Mass Index 38.1 Const: General: cooperative HEENT: Head: Yes normal to inspection Face and sinus: Yes normal facial exam Mouth: Normal oral and palatal mucosa present Teeth and gingiva: d entition normal Eyes: General: appearance normal, both eyes and all related structures P upils: Equal, round and reactive pupils present Resp: Effort & Inspection: normal respiratory effort Cardio: Rate: regular rate Rhythm: regular rhythm GI: Palpation (GI): Soft to palpation and nontender : General: Yes no CVA tenderness Back/Spine/Pelvis: Back: no CVA tenderness Skin: Other: left facial scabbed area Neuro: Other: Alert and oriented been normal. Intellectual functions. Extraocular movements reveal some restriction of the adducting eye bilaterally without any nystagmus and without any internuclear ophthalmoplegia. The patient does not complain of any double vision. Remainder of the eyee eexam is normal. She has slight tremulousness on [id number] test. Otherwise nonfocal exam. General: moves all extremities Cranial nerves: Yes Equal, round and reactive pupils present Extrem: General: Yes normal to inspection Psych: Appearance: grossly normal Results Labs 04/29/23 05:17 04/29/23 05:17 Labs: Short CBC 04/29/23 Range/Units 05:17 WBC 2.9 L (4.8-10.8) X10*3/uL Hgb 10.9 L (12.0-16.0) g/dl Hct 32.8 L (37.0-47.0) % Plt Count 113 L D (160-400) X10*3/uL BMP 04/29/23 05:17 Sodium 138 Potassium 3.5 Chloride 97 Carbon Dioxide 29 BUN 13 Creatinine 0.60 Calcium 9.0 Liver Function 04/29/23 Range/Units 05:17 Total Bilirubin 1.8 H (0.0-1.0) mg/dL Direct Bilirubin 1.0 H (0.0-0.5) mg/dL AST 202 H (5-31) U/L ALT 102 H (0-31) U/L Alkaline Phosphatase 364 H (39-117) U/L Albumin 3.3 L (3.5-5.0) g/dL Assessment and Plan (1) Abnormal neurological exam: Status: Acute Her eye movement abnormalities appear to be chronic andd related to it 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 He check. In May 2021 when she was admitted with severe hypernatremia off 120. She has no eye symptoms. No other acute findings on the MRI. She feels like she is back to normal. No further neurological workup is necessary. (2) Slurred speech: Status: Acute Probably related to alcohol intoxication and has not cleared. (3) Alcoholic intoxication: Qualifiers: Complication of substance-induced condition: with unspecified complication Qualified Code(s): F10.929 - Alcohol use, unspecified with intoxication, unspecified Status: Acute Counseling and detoxx. Plan No treatment Would discontinue topical to area. Procedures Date of Service Date of Service: 04/29/23
[2023-04-29 19:19] VITALS: BP 158/83; PULSE 76; RESP 18; TEMP 36.2; O2SAT 97
[2023-04-30] MEDS: chlordiazePOXIDE HCl 25 MG CAPSULE 50 MG PO ×2 (00:27→08:40)
[2023-04-30] MEDS: Heparin Sodium,Porcine 5,000 UNIT/ML VIAL 5000 UNIT SUBCUT ×2 (00:27→13:06)
[2023-04-30 03:39] VITALS: BP 127/68; PULSE 81; RESP 18; TEMP 36.3; O2SAT 97
[2023-04-30] MEDS: 0.9 % Sodium Chloride 1,000 ML 80 ML IVCONT (04:31)
[2023-04-30] MEDS: Acetaminophen 325 MG TABLET 650 MG PO (04:34)
[2023-04-30 07:19] VITALS: BP 142/86; PULSE 82; RESP 16; TEMP 36.2; O2SAT 98
[2023-04-30] MEDS: DULoxetine HCl 60 MG CAPSULE.DR PO (07:31)
[2023-04-30] MEDS: Multivitamin TABLET 1 TAB PO (07:31)
[2023-04-30] MEDS: PHENobarbitaL 15 MG TABLET 45 MG PO ×2 (07:31→19:24)
[2023-04-30] MEDS: Atorvastatin Calcium 40 MG TABLET PO (07:32)
[2023-04-30] MEDS: Thiamine HCL 100 MG in 0.9 % Sodium Chloride 100 ML 202 MG IV (07:32)
[2023-04-30] MEDS: Aspirin Enteric Coated 81 MG TABLET.DR PO (07:32)
[2023-04-30] MEDS: Gabapentin 300 MG CAPSULE PO (07:32)
--- NOTE | 2023-04-30 08:00 | P.PNIM_ITS ---
Subjective Subjective Date of Service: 05/01/23 Interval History: alcohol withdrawal Review of Systems Patient is still tremulous and anxious and restlessness Denies any chest pain or shortness of breath Physical Exam 2 Vital Signs: Vital Signs: Last Vital Signs Temp 97.2 F 04/30/23 07:19 Pulse 82 04/30/23 07:19 Resp 16 04/30/23 07:19 BP 142/86 H 04/30/23 07:19 Pulse Ox 98 04/30/23 07:19 O2 Del Method Room Air 04/30/23 07:19 BMI result Body Mass Index 38.1 Appearance: Alert.? Oriented X3.?anxious ,tramulous cvs: rrr, [id number] . res: clear to auscultation ,no rhonchii or wheezing abd: no rebound or guarding ,nt, bs present. ext pulses present , no cyanosis . neuro: axo3 , nonfocal. Objective Data Active Medications Acetaminophen (Acetaminophen 325 Mg Tablet) 650 mg PO Q6H PRN PRN Reason: Pain, Mild (Pain Scale 1-3) Last Admin: 04/30/23 04:34 Dose: 650 mg Documented By: MARITA Aspirin (Aspirin Enteric Coated 81 Mg Tablet.) 81 mg PO DAILY [facility] Last Admin: 04/30/23 07:32 Dose: 81 mg Documented By: COTEMA Atorvastatin Calcium (Atorvastatin Calcium 40 Mg Tablet) 40 mg PO DAILY [facility] Last Admin: 04/30/23 07:32 Dose: 40 mg Documented By: COTEMA Buprenorphine/Naloxone (Buprenorphine/Naloxone 8/2 Mg Film) 1 film SUBLINGUAL DAILY [facility] Last Admin: 04/29/23 08:32 Dose: 1 film Documented By: COTEMA Chlordiazepoxide HCl (Chlordiazepoxide Hcl 25 Mg Capsule) 50 mg PO Q6H PRN PRN Reason: Alcohol Withdrawal Last Admin: 04/30/23 00:27 Dose: 50 mg Documented By: MARITA Duloxetine HCl (Duloxetine Hcl 60 Mg Capsule.) 60 mg PO DAILY [facility] Last Admin: 04/30/23 07:31 Dose: 60 mg Documented By: COTEMA Gabapentin (Gabapentin 300 Mg Capsule) 300 mg PO DAILY [facility] Last Admin: 04/30/23 07:32 Dose: 300 mg Documented By: COTEMA Heparin Sodium (Porcine) (Heparin Sodium,Porcine 5,000 Unit/Ml Vial) 5,000 unit SUBCUT Q12H [facility] Last Admin: 04/30/23 00:27 Dose: 5,000 unit Documented By: MARITA Thiamine HCl 100 mg/ Sodium (Chloride) 101 mls @ 202 mls/hr IV DAILY [facility] Last Admin: 04/30/23 07:32 Dose: 202 mls/hr Documented By: PEDRO Folic Acid 1 mg/ Sodium (Chloride) 50.2 mls @ 100.4 mls/hr IV DAILY [facility] Stop: 04/30/23 09:29 Last Infusion: 04/29/23 09:33 Dose: Infused Documented By: PEDRO Sodium Chloride (Ns) 1,000 mls @ 80 mls/hr IVCONT .[id number] [facility] Last Admin: 04/30/23 04:31 Dose: 80 mls/hr Documented By: MARITA Lorazepam (Lorazepam 1 Mg Tablet) 1 mg PO ONCE PRN PRN Reason: anxiety pre-mri Meclizine HCl (Meclizine Hcl 12.5 Mg Tablet) 12.5 mg PO TID PRN PRN Reason: Nausea And Vomiting Last Admin: 04/29/23 10:38 Dose: 12.5 mg Documented By: PEDRO Multivitamins/Vitamin C (Multivitamin Tablet) 1 tab PO DAILY [facility] Last Admin: 04/30/23 07:31 Dose: 1 tab Documented By: PEDRO Ondansetron HCl (Ondansetron Hcl 4 Mg/2 Ml Vial) 4 mg IVPUSH Q8H PRN PRN Reason: Nausea and Vomiting Last Admin: 04/29/23 10:38 Dose: 4 mg Documented By: PEDRO Pharmacy Consult (Consult Rx Etoh Phenob Im/Po) 1 each MISCELLANE ONCE PRN; Protocol PRN Reason: Consult order Phenobarbital (Phenobarbital 15 Mg Tablet) 45 mg PO BID [facility]; Protocol Stop: 04/30/23 21:01 Last Admin: 04/30/23 07:31 Dose: 45 mg Documented By: PEDRO Phenobarbital (Phenobarbital 15 Mg Tablet) 15 mg PO BID [facility]; Protocol Stop: 05/02/23 21:01 Phenobarbital (Phenobarbital 15 Mg Tablet) 15 mg PO DAILY [facility]; Protocol Stop: 05/04/23 09:01 Senna (Sennosides 8.6 Mg Tablet) 17.2 mg PO BEDTIME PRN PRN Reason: Constipation Sodium Chloride (0.9 % Sodium Chloride Flush 3 Ml Syringe) 3 ml IVFLUSH QSHIFT [facility] Last Admin: 04/30/23 07:19 Dose: Not Given Documented By: PEDRO Non-Admin Reason: IV Running Labs 04/29/23 05:17 04/29/23 05:17 Assessment and Plan (1) Slurred speech: Status: Acute (2) Elevated liver enzymes: Status: Acute Plan 52-year-old female with history of genital herpes, unspecified mood disorder, alcohol use disorder, opioid dependence on Suboxone, history polysubstance abuse admitted for further management of acute alcohol withdrawal Acute alcohol withdrawal no hx of seziure or DTs,CIWA still 8 range continue phenobarbital,additional pheobarbital 65 mg added ,thiamine, folic acid Addiction team following Abn CN exam/intermittent slurred speech Head CT neg Per neuro, do not repeat head CT, MRI-nonspecific chronic ischemic microangiopathy including pontine area could be microvascular changes versus m ild form of central pontine myelolysis(possible old change). continue continue 81mg daily, hold atorvastatin due to elevated lft's. neuro checks,swallow eval,neurology seen patient and reviewed mri -speech changes due to alcohol use ,also mri reviewed No other acute findings on the MRI. She feels like she is back to normal. No further neurological workup is necessary. Elevated LFTs-likely r/t etoh use, but significantly higher than prior admissions lfts improving U/S abdomen shows fatty liver, no focal lesion, no obstruction HIV antibody, hepatitis C -neg screening ,Hbsab reactive. follow liver panel,avoid statin opiate dependence continue suboxone,addiction team following unspecified mood disorder-continue home meds. facial rash:likely neurodermitis improving Weakness/Recurrent falls-multiple bruises on arms, buttock Head CT/cervical spine CT negative for any intracranial abnormality, subluxation, dislocation, fracture. Morbid obesity: Encouraged to lose weight, cutdown calories. PT eval:str DVT prophylaxis-heparin Full code ongoiing hospitlisation need: alcohol withdrawal scoring high on CIWA, patient requires with phenobarbital per protocol,ciwa monitering and close monitoring of withdrawal symptoms to prevent alcohol withdrawal seizure or delirium tremens. Quality Stroke Does the patient have a stroke diagnosis?: No VTE Prior VTE?: No VTE Risk Level:: Medical - moderate - high VTE Device Contraindication: Treatment Not Indicated VTE Drug Contraindication: N/A - Med Ordered
[2023-04-30] MEDS: Folic Acid 1 MG in 0.9 % Sodium Chloride 50 ML 100.4 MG IV (08:40)
[2023-04-30] MEDS: Buprenorphine/Naloxone 8/2 mg FILM 1 FILM SUBLINGUAL (08:40)
[2023-04-30 09:53] VITALS: BP 142/86; PULSE 82; O2SAT 98
--- NOTE | 2023-04-30 12:06 | HO.WOUND ---
Wound Consult: Initial 52yr old F? [place] [facility] [place] See progress notes and H&P for detailed history.? Wound consult placed for face lesions.? Patient agreeable to assessment and photo documentation.? Patient was seen by ID and diagnosed with Neurodermatitis - Shingles and herpes was ruled out per note review. Patient reports she is unsure of the wound etiology - she does report she picks and scratches her face. While at beside patient touched and picked at face constantly. We discussed she may be doing it more than she is fully aware she is in agreement. Currently she reports she is using Vaseline to the lesions. She reports significant improvement since starting topical vaseline. Discussed continue with Vaseline vs Hydrocolloid occlusive dressing - we discussed covering sites and stopping her from continuous touching and risk of infection. She reports understanding. She washed her face and Hydrocooloid was applied - Hydrocolloid can stay in place for up to 3 days however given she was using Vaseline may not stay in place until vaseline is no longer on skin - she reports understanding. Face Lesions Etiology: Neurodermatitis??Present on Admission Measurements: various sizes Wound Bed: appear partial thickness tissue loss - evidence forehead lesions may be slightly deeper Drainage / Odor: none noted at the time of my assessment Edges: ? irregular and attached Susan wound: Intact tissue - ? No Induration, Fluctuance or Warmth noted - No s/s of active infection Pain: denies Goals of Treatment: ? Occlusive dressing and moist wound healing Recommendations: 1. Face - Cleanse with Ph balanced soap, dry well. Apply cut to size Hydrocolloid dressing - may leave in place for up to 3days. Goal is keep moist and covered. Re-consult wound care Nurse for wound deterioration or wound changes.
--- NOTE | 2023-04-30 13:06 | P.PNADD_ITS ---
Subjective Subjective Date of Service: 04/30/23 Reason For Visit: ETOH/suboxone, semi combative, prev head lac Interim History: Patient currently medically admitted with alcohol withdrawal Known to this com writer via outpatient treatment at [facility]. Still tremulous when seen by this com writer, but much improved since admission. Patient reporting drinking large amounts of vodka over the last week. She reports that she was unable to walk and was laying on her couch wearing briefs (as she could not make it to the bathroom). Patient very knowledgeable regarding recovery process, medications, treatment options etc. Reports that she plans to attend AA meetings and maybe IOP ... Shifting between crying and saying she can never leave her to focusing very much on her and how he continues to drink and how this makes it hard for her to not drink. This com writer provided supportive listening, however challenged patients thougt process and encouraged her to reflect on where she wants to be with regards to recovery and what decisions will lead her there. Mental Status Exam Mental Status Exam Patient Appearance: Appropriate (bandages on her face) Patient Behavior: Talkative, Restless and Anxious Diagnostics Vital Signs (24Hr): Vital Signs - 24 hr 04/29/23 15:24 04/29/23 19:19 04/30/23 03:39 Temperature 97.1 F 97.1 F 97.3 F Pulse Rate 86 76 81 Respiratory Rate 18 18 18 Blood Pressure 152/84 H 158/83 H 127/68 Pulse Oximetry 98 97 97 Oxygen Delivery Method Room Air Room Air Room Air 04/30/23 07:19 04/30/23 09:53 Temperature 97.2 F Pulse Rate 82 82 Respiratory Rate 16 Blood Pressure 142/86 H 142/86 H Pulse Oximetry 98 98 Oxygen Delivery Method Room Air BMI result Body Mass Index 38.1 Labs 04/29/23 05:17 04/29/23 05:17 Labs: Laboratory Results - last 48 hr 04/28/23 04/29/23 12:11 05:17 WBC 2.9 L RBC 3.34 L Hgb 10.9 L Hct 32.8 L MCV 98.2 H MCH 32.6 MCHC 33.2 RDW 17.9 H Plt Count 113 L D MPV 9.8 Immature Gran % (Auto) 0.3 Neut % (Auto) 70.1 Lymph % (Auto) 18.1 L [place] % (Auto) 6.3 Eos % (Auto) 4.5 H Baso % (Auto) 0.7 Lymph # (Auto) 0.5 L [place] # (Auto) 0.2 Eos # (Auto) 0.1 Baso # (Auto) 0.0 Abs Immat Gran (auto) 0.01 Absolute Neuts (auto) 2.0 Absolute Nucleated RBC 0.020 H Nucleated RBC % (auto) 0.7 H Sodium 138 Potassium 3.5 Chloride 97 Carbon Dioxide 29 Anion Gap 16 BUN 13 Creatinine 0.60 Estim Creat Clear Calc 123.6 Estimated GFR > 60 Random Glucose 97 Estimat Average Glucose 85 Hemoglobin A1c % 4.6 Calcium 9.0 Total Bilirubin 1.8 H Direct Bilirubin 1.0 H AST 202 H ALT 102 H Alkaline Phosphatase 364 H Total Protein 6.0 L Albumin 3.3 L Triglycerides 84 Cholesterol 344 H LDL Cholesterol, Calc 218 H HDL Cholesterol 110 Hep Bs Antigen Negative Hep Bs Antibody REACTIVE Hep B Core Total Ab Nonreactive Hepatitis C Ab (EIA) Nonreactive HIV 1&2 Ab/P24 Ag 4thGn Nonreactive Imaging Radiology Impressions: ITS Impressions Cervical Spine CT 04/27/23 23:40 IMPRESSION: 1. No acute intracranial pathology. 2. No acute fracture or acute malalignment in the cervical spine. 3. Marked multilevel degenerative spondylosis in the cervical spine with chronic anterolisthesis of C4 on C5. Head CT 04/27/23 23:40 IMPRESSION: 1. No acute intracranial pathology. 2. No acute fracture or acute malalignment in the cervical spine. 3. Marked multilevel degenerative spondylosis in the cervical spine with chronic anterolisthesis of C4 on C5. Abdomen Ultrasound 04/28/23 07:34 IMPRESSION: Diffusely increased hepatic echotexture suggesting diffuse fatty infiltration but no focal hepatic lesion or biliary ductal dilatation. Brain MRI 04/28/23 19:02 IMPRESSION: Limited exam with motion artifacts. No acute intracranial process. Moderate diffuse brain parenchymal volume loss for patient age. Mild scattered white matter signal changes in the cerebral white matter which are nonspecific. Moderate signal changes in the shalini which may be due to chronic ischemic microangiopathy. In the correct clinical setting, osmotic demyelination syndrome can have a similar imaging appearance and clinical correlation is recommended. Medications Medications Current Medications Acetaminophen (Acetaminophen 325 Mg Tablet) 650 mg PO Q6H PRN PRN Reason: Pain, Mild (Pain Scale 1-3) Last Admin: 04/30/23 04:34 Dose: 650 mg Aspirin (Aspirin Enteric Coated 81 Mg Tablet.) 81 mg PO DAILY [facility] Last Admin: 04/30/23 07:32 Dose: 81 mg Atorvastatin Calcium (Atorvastatin Calcium 40 Mg Tablet) 40 mg PO DAILY [facility] Last Admin: 04/30/23 07:32 Dose: 40 mg Buprenorphine/Naloxone (Buprenorphine/Naloxone 8/2 Mg Film) 1 film SUBLINGUAL DAILY [facility] Last Admin: 04/30/23 08:40 Dose: 1 film Duloxetine HCl (Duloxetine Hcl 60 Mg Capsule.) 60 mg PO DAILY [facility] Last Admin: 04/30/23 07:31 Dose: 60 mg Gabapentin (Gabapentin 300 Mg Capsule) 300 mg PO DAILY [facility] Last Admin: 04/30/23 07:32 Dose: 300 mg Heparin Sodium (Porcine) (Heparin Sodium,Porcine 5,000 Unit/Ml Vial) 5,000 unit SUBCUT Q12H [facility] Last Admin: 04/30/23 00:27 Dose: 5,000 unit Thiamine HCl 100 mg/ Sodium (Chloride) 101 mls @ 202 mls/hr IV DAILY [facility] Last Infusion: 04/30/23 08:02 Dose: Infused Lorazepam (Lorazepam 1 Mg Tablet) 1 mg PO ONCE PRN PRN Reason: anxiety pre-mri Meclizine HCl (Meclizine Hcl 12.5 Mg Tablet) 12.5 mg PO TID PRN PRN Reason: Nausea And Vomiting Last Admin: 04/29/23 10:38 Dose: 12.5 mg Multivitamins/Vitamin C (Multivitamin Tablet) 1 tab PO DAILY [facility] Last Admin: 04/30/23 07:31 Dose: 1 tab Ondansetron HCl (Ondansetron Hcl 4 Mg/2 Ml Vial) 4 mg IVPUSH Q8H PRN PRN Reason: Nausea and Vomiting Last Admin: 04/29/23 10:38 Dose: 4 mg Pharmacy Consult (Consult Rx Etoh Phenob Im/Po) 1 each MISCELLANE ONCE PRN; Protocol PRN Reason: Consult order Phenobarbital (Phenobarbital 15 Mg Tablet) 45 mg PO BID [facility]; Protocol Stop: 04/30/23 21:01 Last Admin: 04/30/23 07:31 Dose: 45 mg Phenobarbital (Phenobarbital 15 Mg Tablet) 15 mg PO BID [facility]; Protocol Stop: 05/02/23 21:01 Phenobarbital (Phenobarbital 15 Mg Tablet) 15 mg PO DAILY [facility]; Protocol Stop: 05/04/23 09:01 Senna (Sennosides 8.6 Mg Tablet) 17.2 mg PO BEDTIME PRN PRN Reason: Constipation Sodium Chloride (0.9 % Sodium Chloride Flush 3 Ml Syringe) 3 ml IVFLUSH QSHIFT [facility] Last Admin: 04/30/23 07:19 Dose: Not Given Allergies Allergies Allergy/AdvReac Type Severity Reaction Status Date / Time No Known Allergies Allergy Unverified 03/31/23 14:09 Assessment & Plan Assessment & Plan (1) Alcohol use disorder, severe, dependence: Status: Acute Code(s): F10.20 - Alcohol dependence, uncomplicated Assessment and Plan: * completing phenobarb protocol * no change to suboxone dosing * at this time not interested in continuing treatment beyond the hospital ([facility]) * will continue to follow --already connected to [facility] for outpatient treatment Total time managing care of this patient today ____ minutes.
[2023-04-30] MEDS: PHENobarbitaL sodium 65 MG/ML VIAL IM (13:26)
--- NOTE | 2023-04-30 13:27 | MHC.CM.PN ---
Met with patient to discuss discharge planning. PT tigist recommends STR PT preferences obtained and referrals sent. Patient wants to dc to home with services. Her VNA preference is [facility]. A referral has been sent to the agency. DP STR vs home with services. Patient will transport via BLS if to SNF. CM will follow for discharge planning.
--- NOTE | 2023-04-30 13:48 | P.CDIM_ITS ---
PROVIDER RESPONSE TEXT: To clarify, the appropriate diagnosis supported by the clinical indicators: Obesity Due to excess calories QUERY TEXT: PHYSICIAN'S DOCUMENTATION REQUEST Date of Query: 04/29/2023 12:15 PM EST Patient Name: Beverlye Mims Admit Date: 04/28/2023 Dear Suzanne Elliott, A review of the medical record indicates additional documentation may be needed. Please review below and update the documentation accordingly. Clinical Indicators: Nursing notes Height and Weight: BMI 38.1 Obese class II 100.6kg If possible, please provide an associated diagnosis related to the abnormal BMI, such as: Overweight Obesity Due to excess calories Obesity Drug induced Obesity Due to other cause Specify the other cause Other (explain) Clinically unable to determine (explain) Thank you, Ella Crain, CCS, CDIS Use of terms such as suspected, likely, concern for, or probable (associated with a specific diagnosi s that is being evaluated, monitored, or treated as if it exists) are acceptable and can be coded in the inpatient se tting, when documented at the time of discharge. Please use your independent medical judgment in providing your response. THIS QUERY IS PART OF THE PERMANENT MEDICAL RECORD
[2023-04-30 15:00] VITALS: BP 136/77; PULSE 74; RESP 18; TEMP 36.5; O2SAT 95
[2023-04-30 15:03] VITALS: BP 140/87; PULSE 86; RESP 18; TEMP 36.9; O2SAT 97
[2023-04-30 18:57] VITALS: BP 127/77; PULSE 82; RESP 20; TEMP 36.9; O2SAT 96
[2023-04-30] MEDS: Buprenorphine/Naloxone 4/1 mg FILM 1 FILM SUBLINGUAL (19:24)
[2023-04-30] MEDS: 0.9 % Sodium Chloride Flush 3 ML SYRINGE IVFLUSH (19:26)
--- NOTE | 2023-04-30 21:36 | PC.NURSE ---
pt refusing bed alarm.
[2023-05-01] MEDS: Heparin Sodium,Porcine 5,000 UNIT/ML VIAL 5000 UNIT SUBCUT ×2 (00:10→12:14)
[2023-05-01 04:00] VITALS: BP 143/75; PULSE 85; RESP 16; TEMP 36.4; O2SAT 100
[2023-05-01 07:37] VITALS: BP 153/83; PULSE 84; RESP 18; TEMP 36.9; O2SAT 98
[2023-05-01] MEDS: 0.9 % Sodium Chloride Flush 3 ML SYRINGE IVFLUSH ×3 (08:35→20:44)
[2023-05-01] MEDS: Multivitamin TABLET 1 TAB PO (08:35)
[2023-05-01] MEDS: PHENobarbitaL 15 MG TABLET PO ×3 (08:35→20:44)
[2023-05-01] MEDS: Aspirin Enteric Coated 81 MG TABLET.DR PO (08:35)
[2023-05-01] MEDS: Gabapentin 300 MG CAPSULE PO (08:35)
[2023-05-01] MEDS: DULoxetine HCl 60 MG CAPSULE.DR PO (08:35)
[2023-05-01] MEDS: Buprenorphine/Naloxone 8/2 mg FILM 1 FILM SUBLINGUAL (08:36)
--- NOTE | 2023-05-01 08:46 | PC.NURSE ---
Education provided to patient in regards to high fall risk status score. Pt aware given her frequent falls at home pt is at risk for falls while in hospital. Pt refuses bed alarm and wrist band. Red socks and falling star in place.
[2023-05-01] MEDS: PHENobarbitaL sodium 65 MG/ML VIAL IM (09:46)
[2023-05-01] MEDS: Thiamine HCL 100 MG TABLET PO (09:47)
--- NOTE | 2023-05-01 12:03 | HO.PM.IMPN ---
Subjective Subjective Date of Service: 05/01/23 Interval History: alcohol withdrawal Review of Systems Patient is still tremulous and anxious and restlessness says he subaxone seems adjusted recently but she thinks it to be adjusted . Physical Exam Vital Signs: Vital Signs: Last Vital Signs Temp 98.5 F 05/01/23 07:37 Pulse 84 05/01/23 07:37 Resp 18 05/01/23 07:37 BP 153/83 H 05/01/23 07:37 Pulse Ox 98 05/01/23 07:37 O2 Del Method Room Air 05/01/23 07:37 O2 Flow Rate 3.0 04/30/23 15:03 BMI result Body Mass Index 38.1 Appearance: Alert.? Oriented X3.?anxious ,tramulous cvs: rrr, [id number] . res: clear to auscultation ,no rhonchii or wheezing abd: no rebound or guarding ,nt, bs present. ext pulses present , no cyanosis . neuro: axo3 , nonfocal. Objective Data Active Medications Acetaminophen (Acetaminophen 325 Mg Tablet) 650 mg PO Q6H PRN PRN Reason: Pain, Mild (Pain Scale 1-3) Last Admin: 04/30/23 04:34 Dose: 650 mg Documented By: MARITA Aspirin (Aspirin Enteric Coated 81 Mg Tablet.) 81 mg PO DAILY [facility] Last Admin: 05/01/23 08:35 Dose: 81 mg Documented By: KP Buprenorphine/Naloxone (Buprenorphine/Naloxone 8/2 Mg Film) 1 film SUBLINGUAL DAILY [facility] Last Admin: 05/01/23 08:36 Dose: 1 film Documented By: KP Buprenorphine/Naloxone (Buprenorphine/Naloxone 4/1 Mg Film) 1 film SUBLINGUAL DAILY@1800 [facility] Duloxetine HCl (Duloxetine Hcl 60 Mg Capsule.) 60 mg PO DAILY [facility] Last Admin: 05/01/23 08:35 Dose: 60 mg Documented By: KP Gabapentin (Gabapentin 300 Mg Capsule) 300 mg PO DAILY [facility] Last Admin: 05/01/23 08:35 Dose: 300 mg Documented By: KP Heparin Sodium (Porcine) (Heparin Sodium,Porcine 5,000 Unit/Ml Vial) 5,000 unit SUBCUT Q12H [facility] Last Admin: 05/01/23 00:10 Dose: 5,000 unit Documented By: RENZO Lorazepam (Lorazepam 1 Mg Tablet) 1 mg PO ONCE PRN PRN Reason: anxiety pre-mri Meclizine HCl (Meclizine Hcl 12.5 Mg Tablet) 12.5 mg PO TID PRN PRN Reason: Nausea And Vomiting Last Admin: 04/29/23 10:38 Dose: 12.5 mg Documented By: PEDRO Multivitamins/Vitamin C (Multivitamin Tablet) 1 tab PO DAILY [facility] Last Admin: 05/01/23 08:35 Dose: 1 tab Documented By: KP Ondansetron HCl (Ondansetron Hcl 4 Mg/2 Ml Vial) 4 mg IVPUSH Q8H PRN PRN Reason: Nausea and Vomiting Last Admin: 04/29/23 10:38 Dose: 4 mg Documented By: PEDRO Pharmacy Consult (Consult Rx Etoh Phenob Im/Po) 1 each MISCELLANE ONCE PRN; Protocol PRN Reason: Consult order Phenobarbital (Phenobarbital 15 Mg Tablet) 15 mg PO DAILY [facility]; Protocol Stop: 05/04/23 09:01 Phenobarbital (Phenobarbital 15 Mg Tablet) 15 mg PO TID [facility]; Protocol Stop: 05/01/23 21:01 Last Admin: 05/01/23 09:24 Dose: Not Given Documented By: KP Non-Admin Reason: per MD Earl Rocha (Sennosides 8.6 Mg Tablet) 17.2 mg PO BEDTIME PRN PRN Reason: Constipation Sodium Chloride (0.9 % Sodium Chloride Flush 3 Ml Syringe) 3 ml IVFLUSH QSUTFT [facility] Last Admin: 05/01/23 08:35 Dose: 3 ml Documented By: KP Thiamine HCl (Thiamine Hcl 100 Mg Tablet) 100 mg PO DAILY [facility] Last Admin: 05/01/23 09:47 Dose: 100 mg Documented By: KP Labs 04/29/23 05:17 04/29/23 05:17 Assessment and Plan (1) Alcohol withdrawal syndrome: Status: Resolved Plan 52-year-old female with history of genital herpes, unspecified mood disorder, alcohol use disorder, opioid dependence on Suboxone, history polysubstance abuse admitted for further management of acute alcohol withdrawal Acute alcohol withdrawal no hx of seziure or DTs,CIWA improving but patient still very anxious /tramulous adjusted po phenobarbital 15 mg tid ,additional pheobarbital 65 mg added ,thiamine, folic acid Addiction team following Abn CN exam/intermittent slurred speech Head CT neg Per neuro, do not repeat head CT, MRI-nonspecific chronic ischemic microangiopathy including pontine area could be microvascular changes . continue continue 81mg daily, hold atorvastatin due to elevated lft's. neuro checks,swallow eval,neurology seen patient and reviewed mri -speech changes due to alcohol use ,also mri reviewed No other acute findings on the MRI. She feels like she is back to normal. No further neurological workup is necessary. Elevated LFTs-likely r/t etoh use, but significantly higher than prior admissions lfts improving U/S abdomen shows fatty liver, no focal lesion, no obstruction HIV antibody, hepatitis C -neg screening ,Hbsab reactive. follow liver panel,avoid statin opiate dependence continue suboxone,addiction team following-for further adjustments . unspecified mood disorder-continue home meds. facial rash:likely neurodermitis improving Weakness/Recurrent falls-multiple bruises on arms, buttock Head CT/cervical spine CT negative for any intracranial abnormality, subluxation, dislocation, fracture. denies any pain Morbid obesity: Encouraged to lose weight, cutdown calories. PT eval:str DVT prophylaxis-heparin Full code oniing hospitlisation need: alcohol withdrawal scoring high on CIWA, patient requires with phenobarbital per protocol,ciwa monitering and close monitoring of withdrawal symptoms to prevent alcohol withdrawal seizure or delirium tremens. Quality Stroke Does the patient have a stroke diagnosis?: No VTE Prior VTE?: No VTE Risk Level:: Medical - moderate - high VTE Device Contraindication: Treatment Not Indicated VTE Drug Contraindication: N/A - Med Ordered
--- NOTE | 2023-05-01 13:22 | MHC.CM.PN ---
EMR reviewed. Per MD rounds patient is not medically cleared for dc. PT is now recommending home w/ services. Updates send to [facility]. Awaiting response. CM will continue to follow for dc needs.
--- NOTE | 2023-05-01 13:55 | HO.ADDICTPRO ---
Subjective Subjective Date of Service: 05/01/23 Reason For Visit: ETOH/suboxone, semi combative, prev head lac Interim History: Seen in follow up last evening requesting increased dose of Suboxone, this ad copy writer orderd 4mg X1. Today reporting that she feels she decreased her previous suboxone dose of 16mg QD too quickly. She would like to increase to 8mg in AM and 4mg in evening. Discussed thoughts related to AUD --this ad copy writer encouraged patient to think about risk reduction related to drinking if her plan was to return home. She expressed interest in restarting Disulfiram. Review of Systems Constitutional: Reports as per HPI Psychiatric: Reports anxiety and Reports difficulty concentrating Diagnostics Vital Signs (24Hr): Vital Signs - 24 hr 04/30/23 15:00 04/30/23 15:03 04/30/23 18:57 Temperature 97.7 F 98.4 F 98.4 F Pulse Rate 74 86 82 Respiratory Rate 18 18 20 Blood Pressure 136/77 140/87 H 127/77 Pulse Oximetry 95 97 96 Oxygen Delivery Method Room Air Nasal Cannula Room Air Oxygen Flow Rate 3.0 05/01/23 04:00 05/01/23 07:37 Temperature 97.6 F 98.5 F Pulse Rate 85 84 Respiratory Rate 16 18 Blood Pressure 143/75 H 153/83 H Pulse Oximetry 100 98 Oxygen Delivery Method Room Air Room Air Oxygen Flow Rate BMI result Body Mass Index 38.1 Labs 04/29/23 05:17 04/29/23 05:17 Imaging Radiology Impressions: ITS Impressions Cervical Spine CT 04/27/23 23:40 IMPRESSION: 1. No acute intracranial pathology. 2. No acute fracture or acute malalignment in the cervical spine. 3. Marked multilevel degenerative spondylosis in the cervical spine with chronic anterolisthesis of C4 on C5. Head CT 04/27/23 23:40 IMPRESSION: 1. No acute intracranial pathology. 2. No acute fracture or acute malalignment in the cervical spine. 3. Marked multilevel degenerative spondylosis in the cervical spine with chronic anterolisthesis of C4 on C5. Abdomen Ultrasound 04/28/23 07:34 IMPRESSION: Diffusely increased hepatic echotexture suggesting diffuse fatty infiltration but no focal hepatic lesion or biliary ductal dilatation. Brain MRI 04/28/23 19:02 IMPRESSION: Limited exam with motion artifacts. No acute intracranial process. Moderate diffuse brain parenchymal volume loss for patient age. Mild scattered white matter signal changes in the cerebral white matter which are nonspecific. Moderate signal changes in the shalini which may be due to chronic ischemic microangiopathy. In the correct clinical setting, osmotic demyelination syndrome can have a similar imaging appearance and clinical correlation is recommended. Medications Medications Current Medications Acetaminophen (Acetaminophen 325 Mg Tablet) 650 mg PO Q6H PRN PRN Reason: Pain, Mild (Pain Scale 1-3) Last Admin: 04/30/23 04:34 Dose: 650 mg Aspirin (Aspirin Enteric Coated 81 Mg Tablet.) 81 mg PO DAILY [facility] Last Admin: 05/01/23 08:35 Dose: 81 mg Buprenorphine/Naloxone (Buprenorphine/Naloxone 8/2 Mg Film) 1 film SUBLINGUAL DAILY [facility] Last Admin: 05/01/23 08:36 Dose: 1 film Buprenorphine/Naloxone (Buprenorphine/Naloxone 4/1 Mg Film) 1 film SUBLINGUAL DAILY@1800 [place] Duloxetine HCl (Duloxetine Hcl 60 Mg Capsule.) 60 mg PO DAILY [facility] Last Admin: 05/01/23 08:35 Dose: 60 mg Gabapentin (Gabapentin 300 Mg Capsule) 300 mg PO DAILY [facility] Last Admin: 05/01/23 08:35 Dose: 300 mg Heparin Sodium (Porcine) (Heparin Sodium,Porcine 5,000 Unit/Ml Vial) 5,000 unit SUBCUT Q12H [facility] Last Admin: 05/01/23 12:14 Dose: 5,000 unit Lorazepam (Lorazepam 1 Mg Tablet) 1 mg PO ONCE PRN PRN Reason: anxiety pre-mri Meclizine HCl (Meclizine Hcl 12.5 Mg Tablet) 12.5 mg PO TID PRN PRN Reason: Nausea And Vomiting Last Admin: 04/29/23 10:38 Dose: 12.5 mg Multivitamins/Vitamin C (Multivitamin Tablet) 1 tab PO DAILY [facility] Last Admin: 05/01/23 08:35 Dose: 1 tab Ondansetron HCl (Ondansetron Hcl 4 Mg/2 Ml Vial) 4 mg IVPUSH Q8H PRN PRN Reason: Nausea and Vomiting Last Admin: 04/29/23 10:38 Dose: 4 mg Pharmacy Consult (Consult Rx Etoh Phenob Im/Po) 1 each MISCELLANE ONCE PRN; Protocol PRN Reason: Consult order Phenobarbital (Phenobarbital 15 Mg Tablet) 15 mg PO DAILY [facility]; Protocol Stop: 05/04/23 09:01 Phenobarbital (Phenobarbital 15 Mg Tablet) 15 mg PO TID [facility]; Protocol Stop: 05/01/23 21:01 Last Admin: 05/01/23 09:24 Dose: Not Given Senna (Sennosides 8.6 Mg Tablet) 17.2 mg PO BEDTIME PRN PRN Reason: Constipation Sodium Chloride (0.9 % Sodium Chloride Flush 3 Ml Syringe) 3 ml IVFLUSH QSHIFT [facility] Last Admin: 05/01/23 08:35 Dose: 3 ml Thiamine HCl (Thiamine Hcl 100 Mg Tablet) 100 mg PO DAILY [facility] Last Admin: 05/01/23 09:47 Dose: 100 mg Allergies Allergies Allergy/AdvReac Type Severity Reaction Status Date / Time No Known Allergies Allergy Unverified 03/31/23 14:09 Assessment & Plan Assessment & Plan (1) Alcohol use disorder, severe, dependence: Status: Acute Code(s): F10.20 - Alcohol dependence, uncomplicated Assessment and Plan: will consider Disulfiram general practice to check in over the wkend (2) Opioid use disorder: Status: Acute Code(s): F11.90 - Opioid use, unspecified, uncomplicated Assessment and Plan: increase suboxone dose--8mg in AM and 4mg in afternoon Plan Total time managing care of this patient today __40__ minutes.
--- NOTE | 2023-05-01 14:12 | PC.NURSE ---
Pt refuses to keep Hydrocolloid dressings on face, pt insists on putting makeup over open areas to hide redness . Pt educated on risks of infection control and keeping area clean and dry.
[2023-05-01 15:27] VITALS: BP 128/75; PULSE 74; RESP 18; TEMP 36.6; O2SAT 95
[2023-05-01] MEDS: Buprenorphine/Naloxone 4/1 mg FILM 1 FILM SUBLINGUAL (18:10)
[2023-05-01 19:17] VITALS: BP 115/55; PULSE 76; RESP 18; TEMP 36.7; O2SAT 96
[2023-05-02] MEDS: Heparin Sodium,Porcine 5,000 UNIT/ML VIAL 5000 UNIT SUBCUT (00:37)
[2023-05-02 04:00] VITALS: BP 122/74; PULSE 85; RESP 16; TEMP 36.8; O2SAT 98
[2023-05-02 07:43] VITALS: BP 136/84; PULSE 86; RESP 18; TEMP 36.8; O2SAT 99
[2023-05-02] MEDS: Gabapentin 300 MG CAPSULE PO (08:47)
[2023-05-02] MEDS: Buprenorphine/Naloxone 8/2 mg FILM 1 FILM SUBLINGUAL (08:47)
[2023-05-02] MEDS: Aspirin Enteric Coated 81 MG TABLET.DR PO (08:48)
[2023-05-02] MEDS: Multivitamin TABLET 1 TAB PO (08:48)
[2023-05-02] MEDS: Thiamine HCL 100 MG TABLET PO (08:48)
[2023-05-02] MEDS: 0.9 % Sodium Chloride Flush 3 ML SYRINGE IVFLUSH ×3 (08:48→20:40)
[2023-05-02] MEDS: DULoxetine HCl 60 MG CAPSULE.DR PO (08:48)
[2023-05-02] MEDS: PHENobarbitaL 30 MG TABLET PO ×2 (08:56→20:40)
--- NOTE | 2023-05-02 10:36 | P.PNIM_ITS ---
Subjective Subjective Date of Service: 05/02/23 Interval History: alcohol withdrawal Review of Systems Patient is still tremulous and anxious and restlessness Physical Exam 2 Vital Signs: Vital Signs: Last Vital Signs Temp 98.2 F 05/02/23 07:43 Pulse 86 05/02/23 07:43 Resp 18 05/02/23 07:43 BP 136/84 05/02/23 07:43 Pulse Ox 99 05/02/23 07:43 O2 Del Method Room Air 05/02/23 07:43 O2 Flow Rate 3.0 04/30/23 15:03 BMI result Body Mass Index 38.1 Appearance: Alert.? Oriented X3.?anxious ,tramulous cvs: rrr, [id number] . res: clear to auscultation ,no rhonchii or wheezing abd: no rebound or guarding ,nt, bs present. ext pulses present , no cyanosis . neuro: axo3 , nonfocal. Objective Data Active Medications Acetaminophen (Acetaminophen 325 Mg Tablet) 650 mg PO Q6H PRN PRN Reason: Pain, Mild (Pain Scale 1-3) Last Admin: 04/30/23 04:34 Dose: 650 mg Documented By: MARITA Aspirin (Aspirin Enteric Coated 81 Mg Tablet.) 81 mg PO DAILY [facility] Last Admin: 05/02/23 08:48 Dose: 81 mg Documented By: KP Buprenorphine/Naloxone (Buprenorphine/Naloxone 8/2 Mg Film) 1 film SUBLINGUAL DAILY [facility] Last Admin: 05/02/23 08:47 Dose: 1 film Documented By: KP Buprenorphine/Naloxone (Buprenorphine/Naloxone 4/1 Mg Film) 1 film SUBLINGUAL DAILY@1800 [facility] Last Admin: 05/01/23 18:10 Dose: 1 film Documented By: KP Duloxetine HCl (Duloxetine Hcl 60 Mg Capsule.) 60 mg PO DAILY [facility] Last Admin: 05/02/23 08:48 Dose: 60 mg Documented By: KP Gabapentin (Gabapentin 300 Mg Capsule) 300 mg PO DAILY [facility] Last Admin: 05/02/23 08:47 Dose: 300 mg Documented By: KP Heparin Sodium (Porcine) (Heparin Sodium,Porcine 5,000 Unit/Ml Vial) 5,000 unit SUBCUT Q12H [facility] Last Admin: 05/02/23 00:37 Dose: 5,000 unit Documented By: HO.SEXK Lorazepam (Lorazepam 1 Mg Tablet) 1 mg PO ONCE PRN PRN Reason: anxiety pre-mri Meclizine HCl (Meclizine Hcl 12.5 Mg Tablet) 12.5 mg PO TID PRN PRN Reason: Nausea And Vomiting Last Admin: 04/29/23 10:38 Dose: 12.5 mg Documented By: PEDRO Multivitamins/Vitamin C (Multivitamin Tablet) 1 tab PO DAILY [facility] Last Admin: 05/02/23 08:48 Dose: 1 tab Documented By: KP Ondansetron HCl (Ondansetron Hcl 4 Mg/2 Ml Vial) 4 mg IVPUSH Q8H PRN PRN Reason: Nausea and Vomiting Last Admin: 04/29/23 10:38 Dose: 4 mg Documented By: COTSTEVAN Pharmacy Consult (Consult Rx Etoh Phenob Im/Po) 1 each MISCELLANE ONCE PRN; Protocol PRN Reason: Consult order Phenobarbital (Phenobarbital 15 Mg Tablet) 15 mg PO DAILY [facility]; Protocol Stop: 05/04/23 09:01 Phenobarbital (Phenobarbital 30 Mg Tablet) 30 mg PO BID [facility] Last Admin: 05/02/23 08:56 Dose: 30 mg Documented By: KP Senna (Sennosides 8.6 Mg Tablet) 17.2 mg PO BEDTIME PRN PRN Reason: Constipation Sodium Chloride (0.9 % Sodium Chloride Flush 3 Ml Syringe) 3 ml IVFLUSH QSHIFT [facility] Last Admin: 05/02/23 08:48 Dose: 3 ml Documented By: KP Thiamine HCl (Thiamine Hcl 100 Mg Tablet) 100 mg PO DAILY [facility] Last Admin: 05/02/23 08:48 Dose: 100 mg Documented By: KP Labs 04/29/23 05:17 04/29/23 05:17 Labs: Laboratory Results - last 24 hr 05/02/23 08:57 Phenobarbital 11.6 Assessment and Plan (1) Alcohol withdrawal syndrome: Status: Resolved Plan 52-year-old female with history of genital herpes, unspecified mood disorder, alcohol use disorder, opioid dependence on Suboxone, history polysubstance abuse admitted for further management of acute alcohol withdrawal Acute alcohol withdrawal no hx of seziure or DTs,CIWA improving but patient still very anxious /tramulous adjusted po phenobarbital 30 mg po bid( phenobarbital levels 11.6),thiamine, folic acid Addiction team following Abn CN exam/intermittent slurred speech Head CT neg Per neuro, do not repeat head CT, MRI-nonspecific chronic ischemic microangiopathy including pontine area could be microvascular changes . continue continue 81mg daily, hold atorvastatin due to elevated lft's. neuro checks,swallow eval,neurology seen patient and reviewed mri -speech changes due to alcohol use ,also mri reviewed No other acute findings on the MRI. She feels like she is back to normal. No further neurological workup is necessary. Elevated LFTs-likely r/t etoh use, but significantly higher than prior admissions lfts improving U/S abdomen shows fatty liver, no focal lesion, no obstruction HIV antibody, hepatitis C -neg screening ,Hbsab reactive. follow liver panel,avoid statin opiate dependence continue suboxone,addiction team following-for further adjustments . unspecified mood disorder-continue home meds. due to severe anxiety might also be contributing to presentation-added psych eval. facial rash:likely neurodermitis improving Weakness/Recurrent falls-multiple bruises on arms, buttock Head CT/cervical spine CT negative for any intracranial abnormality, subluxation, dislocation, fracture. denies any pain Morbid obesity: Encouraged to lose weight, cutdown calories. PT eval:str DVT prophylaxis-heparin Full code onii hospitlisation need: alcohol withdrawal scoring high on CIWA, patient requires with phenobarbital per protocol,ciwa monitering and close monitoring of withdrawal symptoms to prevent alcohol withdrawal seizure or delirium tremens. Quality Stroke Does the patient have a stroke diagnosis?: No VTE Prior VTE?: No VTE Risk Level:: Medical - moderate - high VTE Device Contraindication: Treatment Not Indicated VTE Drug Contraindication: N/A - Med Ordered
--- NOTE | 2023-05-02 11:57 | PC.NURSE ---
MD Elliott aware pt refusing SQ heparin, pt ambulating frequently in room and hallway.
--- NOTE | 2023-05-02 14:39 | MHC.RECOVRN ---
Addendum entered by Ally Ponce RN 05/02/23 14:44: This information writer provided written and verbal education to pt. in re: to harm and risk reducation. Original Note: Met with pt in 353 to follow up and provide support. Pt awake, alert, easily engages in conversation. Was on phone with upon my arrival and hung up in order to engage in visit with myself. No W/D sx reported or observed this visit. MEY this AM was a 2. Reviewed education on antibuse with pt and she is definitely interested in pursuing this treatment. Pt also reported that the increase in suboxone to 12mg/day is effective.T/W provided pt with education on sublocade and she will further discuss with provider. Pt denies other concerns at this time. T/w available as needed. Contact information left with pt.
[2023-05-02 15:13] VITALS: BP 133/80; PULSE 90; RESP 18; TEMP 36.6; O2SAT 96
--- NOTE | 2023-05-02 15:19 | P.CNPS_ITS ---
History of Present Illness Date of Service: 05/02/23 Chief Complaint: ETOH/suboxone, semi combative, prev head lac Reason for Consult: anxiety Requesting physician: Suzanne Elliott Sources of Information: patient interviewed, chart reviewed and crisis/core team assessment reviewed Additional Sources of Information: anxeity HPI Narrative: pt states yesterday she had high anxiety due to her neighbor refusin to bring her suboxone in to her and instead infromed the nursing staff; pt states she felt betrayed by friend. little insight; reports she is less anxious toady; wants to contiue on subocone after d/c and wants to start antabuse as deterrant to etoh use. Past Psychiatric History: Denies any psychiatric admissions. Has been sectioned 35 in past and in residential tx for etoh. Denies history of psychosis, ras or violence. Had EMDR after finding her first from hanging Medical Evaluation Reviewed: Yes Review of Systems Review of Systems Patient is still tremulous and anxious and restlessness Yes all other systems are reviewed and are negative Constitutional: Reports as per HPI Psychiatric: Reports anxiety and Reports difficulty concentrating PMFSH Medical History Rash Encounter for monitoring Suboxone maintenance therapy Hypertension Alcohol use disorder, severe, dependence Opioid use disorder Alcohol abuse Surgical History History of gastric surgery Family History: Reports grandfather jumped out 3rd story window and killed himself. Brother with addiction issues Social History: see above Trauma History: As above witnessed first 's body after he hung himself. Denies childhood trauma Diagnostics Vital Signs (24Hr): Vital Signs - 24 hr 05/01/23 15:27 05/01/23 19:17 05/02/23 04:00 Temperature 98 F 98.1 F 98.3 F Pulse Rate 74 76 85 Respiratory Rate 18 18 16 Blood Pressure 128/75 115/55 L 122/74 Pulse Oximetry 95 96 98 Oxygen Delivery Method Room Air Room Air Room Air 05/02/23 07:43 05/02/23 15:13 Temperature 98.2 F 97.8 F Pulse Rate 86 90 Respiratory Rate 18 18 Blood Pressure 136/84 133/80 Pulse Oximetry 99 96 Oxygen Delivery Method Room Air Room Air BMI result Body Mass Index 38.1 Labs 04/29/23 05:17 04/29/23 05:17 Labs: Laboratory Results - last 48 hr 05/02/23 08:57 Phenobarbital 11.6 Imaging Radiology Impressions: ITS Impressions Cervical Spine CT 04/27/23 23:40 IMPRESSION: 1. No acute intracranial pathology. 2. No acute fracture or acute malalignment in the cervical spine. 3. Marked multilevel degenerative spondylosis in the cervical spine with chronic anterolisthesis of C4 on C5. Head CT 04/27/23 23:40 IMPRESSION: 1. No acute intracranial pathology. 2. No acute fracture or acute malalignment in the cervical spine. 3. Marked multilevel degenerative spondylosis in the cervical spine with chronic anterolisthesis of C4 on C5. Abdomen Ultrasound 04/28/23 07:34 IMPRESSION: Diffusely increased hepatic echotexture suggesting diffuse fatty infiltration but no focal hepatic lesion or biliary ductal dilatation. Brain MRI 04/28/23 19:02 IMPRESSION: Limited exam with motion artifacts. No acute intracranial process. Moderate diffuse brain parenchymal volume loss for patient age. Mild scattered white matter signal changes in the cerebral white matter which are nonspecific. Moderate signal changes in the shalini which may be due to chronic ischemic microangiopathy. In the correct clinical setting, osmotic demyelination syndrome can have a similar imaging appearance and clinical correlation is recommended. Mental Status Exam Mental Status Exam Patient Appearance: Appropriate (bandages on her face) Patient Orientation: Person, Place, Time and Situation Level of Consciousness: Awake Patient Behavior: Talkative, Restless and Anxious Mood Description: Labile Affect Description: Expansive Patient Cognition Impaired: No Ability to Follow Directions: Fair Speech Pattern: Rambling and Excessive Memory Description: Intact Hallucinations: None Delusions: Not Present Thought Process: Intact Thought Content: positive for Intact and positive for Goal Oriented Judgement: Fair Judgement and Insight: fair to poor insight about her addiction Medications Medications Current Medications Acetaminophen (Acetaminophen 325 Mg Tablet) 650 mg PO Q6H PRN PRN Reason: Pain, Mild (Pain Scale 1-3) Last Admin: 04/30/23 04:34 Dose: 650 mg Aspirin (Aspirin Enteric Coated 81 Mg Tablet.) 81 mg PO DAILY [facility] Last Admin: 05/02/23 08:48 Dose: 81 mg Buprenorphine/Naloxone (Buprenorphine/Naloxone 8/2 Mg Film) 1 film SUBLINGUAL DAILY [facility] Last Admin: 05/02/23 08:47 Dose: 1 film Buprenorphine/Naloxone (Buprenorphine/Naloxone 4/1 Mg Film) 1 film SUBLINGUAL DAILY@1800 [facility] Last Admin: 05/01/23 18:10 Dose: 1 film Duloxetine HCl (Duloxetine Hcl 60 Mg Capsule.Dr) 60 mg PO DAILY [facility] Last Admin: 05/02/23 08:48 Dose: 60 mg Gabapentin (Gabapentin 300 Mg Capsule) 300 mg PO DAILY [facility] Last Admin: 05/02/23 08:47 Dose: 300 mg Heparin Sodium (Porcine) (Heparin Sodium,Porcine 5,000 Unit/Ml Vial) 5,000 unit SUBCUT Q12H [facility] Last Admin: 05/02/23 11:56 Dose: Not Given Lorazepam (Lorazepam 1 Mg Tablet) 1 mg PO ONCE PRN PRN Reason: anxiety pre-mri Meclizine HCl (Meclizine Hcl 12.5 Mg Tablet) 12.5 mg PO TID PRN PRN Reason: Nausea And Vomiting Last Admin: 04/29/23 10:38 Dose: 12.5 mg Multivitamins/Vitamin C (Multivitamin Tablet) 1 tab PO DAILY [facility] Last Admin: 05/02/23 08:48 Dose: 1 tab Ondansetron HCl (Ondansetron Hcl 4 Mg/2 Ml Vial) 4 mg IVPUSH Q8H PRN PRN Reason: Nausea and Vomiting Last Admin: 04/29/23 10:38 Dose: 4 mg Pharmacy Consult (Consult Rx Etoh Phenob Im/Po) 1 each MISCELLANE ONCE PRN; Protocol PRN Reason: Consult order Phenobarbital (Phenobarbital 15 Mg Tablet) 15 mg PO DAILY [facility]; Protocol Stop: 05/04/23 09:01 Phenobarbital (Phenobarbital 30 Mg Tablet) 30 mg PO BID [facility] Last Admin: 05/02/23 08:56 Dose: 30 mg Senna (Sennosides 8.6 Mg Tablet) 17.2 mg PO BEDTIME PRN PRN Reason: Constipation Sodium Chloride (0.9 % Sodium Chloride Flush 3 Ml Syringe) 3 ml IVFLUSH QSHIFT [facility] Last Admin: 05/02/23 08:48 Dose: 3 ml Thiamine HCl (Thiamine Hcl 100 Mg Tablet) 100 mg PO DAILY [facility] Last Admin: 05/02/23 08:48 Dose: 100 mg Allergies Allergies Allergy/AdvReac Type Severity Reaction Status Date / Time No Known Allergies Allergy Unverified 03/31/23 14:09 Assessment & Plan Assessment & Plan (1) Alcohol withdrawal syndrome: Status: Resolved Code(s): F10.239 - Alcohol dependence with withdrawal, unspecified Plan 52-year-old female with history of genital herpes, unspecified mood disorder, alcohol use disorder, opioid dependence on Suboxone, history polysubstance abuse admitted for further management of acute alcohol withdrawal Acute alcohol withdrawal no hx of seziure or DTs,CIWA improving but patient still very anxious /tramulous adjusted po phenobarbital 15 mg tid ,additional pheobarbital 65 mg added ,thiamine, folic acid Addiction team following Abn CN exam/intermittent slurred speech Head CT neg Per neuro, do not repeat head CT, MRI-nonspecific chronic ischemic microangiopathy including pontine area could be microvascular changes . continue continue 81mg daily, hold atorvastatin due to elevated lft's. neuro checks,swallow eval,neurology seen patient and reviewed mri -speech changes due to alcohol use ,also mri reviewed No other acute findings on the MRI. She feels like she is back to normal. No further neurological workup is necessary. Elevated LFTs-likely r/t etoh use, but significantly higher than prior admissions lfts improving U/S abdomen shows fatty liver, no focal lesion, no obstruction HIV antibody, hepatitis C -neg screening ,Hbsab reactive. follow liver panel,avoid statin opiate dependence continue suboxone,addiction team following-for further adjustments . unspecified mood disorder-continue home meds. facial rash:likely neurodermitis improving Weakness/Recurrent falls-multiple bruises on arms, buttock Head CT/cervical spine CT negative for any intracranial abnormality, subluxation, dislocation, fracture. denies any pain Morbid obesity: Encouraged to lose weight, cutdown calories. PT eval:str DVT [facility]: alcohol withdrawal scoring high on CIWA, patient requires with phenobarbital per protocol,ciwa monitering and close monitoring of withdrawal symptoms to prevent alcohol withdrawal seizure or delirium tremens. Plan: continue treatemnt collaborate with alessio mcmullen NP for suboxone and antabuse post d/c no other medication recommendations Total time managing care of this patient today ____ minutes. Patient educated on: diagnosis, medication risk/benefits, substance abuse and therapeutic strategies Informed Consent: understands and further education needed
[2023-05-02] MEDS: Buprenorphine/Naloxone 4/1 mg FILM 1 FILM SUBLINGUAL (17:31)
[2023-05-02] MEDS: Acetaminophen 325 MG TABLET 650 MG PO (17:31)
[2023-05-02 18:59] VITALS: BP 134/73; PULSE 88; RESP 18; TEMP 36.6; O2SAT 97
[2023-05-03] VITALS (7 sets, daily range): BP systolic 121–162; BP diastolic 73–84; PULSE 81–92; RESP 16–20; TEMP 36.6–39.1; O2SAT 94–100
[2023-05-03] MEDS: Acetaminophen 325 MG TABLET 650 MG PO (00:39)
[2023-05-03] MEDS: 0.9 % Sodium Chloride 1,000 ML 999 ML IV ×2 (00:56→02:35)
[2023-05-03 01:33] LABS: Appearance Urine Clear; Color Urine Yellow; Glucose Urine UA Negative (Negative); Leukocyte Esterase Urine Negative (Negative); Nitrite Urine Negative (Negative); PH 8.5 (5.0-9.0); Urine Blood Negative (Negative); Urine Ketones Negative (Negative); Urine Protein Negative (Neg-Trace)
[2023-05-03 01:34] LABS: Basophils Percent Auto 0.4 % (0-2); Eosinophils Percent Auto 1.3 % (0-4); Hematocrit 28.2 % (37.0-47.0); Hemoglobin 9.5 g/dl (12.0-16.0); Imm Gran Abs Auto 0.01 X10*3/uL (0.00-0.03); Imm Gran Pct Auto 0.4 % (0.0-0.4); Lymphocytes Absolute Auto 0.2 X10*3/uL (1.2-4.9); Lymphocytes Percent Auto 8.7 % (20-40); MANUAL DIFF FLAG SCAN; Mean Corpuscular HGB Conc 33.7 g/dl (31.0-35.0); Mean Corpuscular Hemoglobin 33.1 pg (27.0-33.0); Mean Corpuscular Volume 98.3 fL (80.0-98.0); Mean Platelet Volume 9.8 fL (9.4-12.3); Monocytes Absolute Auto 0.4 X10*3/uL (0.1-1.2); Monocytes Percent Auto 16.6 % (2-11); Neutrophils Absolute Auto 1.7 x10*3/uL (2.0-8.3); Neutrophils Percent Auto 72.6 % (45-73); Platelet Count 135 X10*3/uL (160-400); Red Blood Count 2.87 X10*6/uL (4.20-5.50); Red Cell Distribution Width 17.4 % (11.0-16.0); SCAN SMEAR FLAG 1; White Blood Count 2.3 X10*3/uL (4.8-10.8)
--- NOTE | 2023-05-03 01:34 | PC.NURSE ---
Addendum entered by Divina Randhawa RN 05/03/23 04:59: Pt for transfer to [facility] Covid unit, pt made aware , last vitals WNL, report given to Josefina Das RN, pt transferred to room 470 at 0445. Addendum entered by Divina Randhawa RN 05/03/23 04:56: At 0216, Covid swab noted as positive, Dr. Luis was notified, pt was updated. billet shearer was made aware. Addendum entered by Divina Randhawa RN 05/03/23 04:55: At 0210, Magnesium Sulfate 2 gms started and completed after 2h. Addendum entered by Divina Randhawa RN 05/03/23 02:03: Lab called at 0200 for critical Mg= 1.2 , Dr. Luis was notified. Original Note: At 0036, pt claimed she doesn't feel well, warm, congested nose and productive coughing, abiv=983.3 orally, pt also afraid she has covid, denies any exposure to sick person, pt claimed symptoms started during the day yesterday, Dr. Luis was notified, prn Tylenol 650 mg po given, po intake is good, Covid/FLu/RSV swab done and sent, labs ordered and drawn, CXR done, UA sample collected and sent, Bolus of NSS started to complete 2 L, pt upset she might not be able to go home tomorrow.
[2023-05-03 01:46] LABS: Lactic Acid 0.8 mmol/L (0.5-2.0)
[2023-05-03 01:59] LABS: Alanine Aminotransferase 41 U/L (0-31); Albumin Level 3.4 g/dL (3.5-5.0); Alkaline Phosphatase 212 U/L (39-117); Anion Gap 15 (12-20); Aspartate Amino Transferase 44 U/L (5-31); Bilirubin Total 0.6 mg/dL (0.0-1.0); Blood Urea Nitrogen 6 mg/dL (9-16); Calcium 8.6 mg/dL (8.4-10.2); Carbon Dioxide 23 mmol/L (22-29); Chloride 97 mmol/L (96-108); Creatinine Clr Calc Pharmacy 137.4; Estimated Glomerular Filt Rate > 60; Glucose Random 99 mg/dL (60-115); Magnesium 1.4 mg/dL (1.6-2.6); Potassium 3.8 mmol/L (3.3-5.1); Sodium 131 mmol/L (135-145)
[2023-05-03 02:10] LABS: Influenza A PCR NEGATIVE (Negative); Influenza B PCR NEGATIVE (Negative); Resp Syncy Virus RNA Qual PCR NEGATIVE (Negative); SARS COV2 PCR INHOUSE POSITIVE (Negative)
[2023-05-03 02:25] LABS: SLIDE REVIEW VERIFIED
[2023-05-03] MEDS: Magnesium Sulfate/H2O 2 GM/50 ML PIGGYBACK IV (02:28)
--- NOTE | 2023-05-03 03:27 | PM.EVENT ---
Event Note Date of Service: 05/03/23 Event Note: Patient developed fever spike overnight, 102.3. There is no hypotension and tachycardia. Normal saline saturation. According to nurse patient has been complaining of cough and nasal congestion. Lab stat ordered: Blood cultures, CBC, CMP, UA and lactic acid. Viral testing for COVID-19 is positive. CXR is negative. Tylenol given Magnesium is low. Magnesium sulfate 2 g IV ordered. There is neutropenia. IV fluids ordered patient is refusing (got only 1 L NS bolus). No indications for remdesivir therapy: Normal oxygen saturation, CXR normal and elevated liver enzymes. Blood cultures are pending. Time Spent With Patient Time: Total time managing care of this patient today ____ minutes.
[2023-05-03] MEDS: Acetaminophen 325 MG TABLET 975 MG PO ×2 (05:09→11:11)
[2023-05-03] MEDS: Gabapentin 300 MG CAPSULE PO (08:57)
[2023-05-03] MEDS: Thiamine HCL 100 MG TABLET PO (08:58)
[2023-05-03] MEDS: PHENobarbitaL 15 MG TABLET PO (08:58)
[2023-05-03] MEDS: PHENobarbitaL 30 MG TABLET PO ×2 (08:58→21:36)
[2023-05-03] MEDS: Buprenorphine/Naloxone 8/2 mg FILM 1 FILM SUBLINGUAL (08:59)
[2023-05-03] MEDS: 0.9 % Sodium Chloride Flush 3 ML SYRINGE IVFLUSH ×3 (08:59→21:36)
[2023-05-03] MEDS: Aspirin Enteric Coated 81 MG TABLET.DR PO (08:59)
[2023-05-03] MEDS: Multivitamin TABLET 1 TAB PO (08:59)
[2023-05-03 09:29] LABS: Anion Gap 13 (12-20); Blood Urea Nitrogen 5 mg/dL (9-16); Calcium 8.8 mg/dL (8.4-10.2); Carbon Dioxide 26 mmol/L (22-29); Chloride 103 mmol/L (96-108); Creatinine Clr Calc Pharmacy 121.6; Estimated Glomerular Filt Rate > 60; Glucose Random 164 mg/dL (60-115); Potassium 3.7 mmol/L (3.3-5.1); Sodium 138 mmol/L (135-145)
[2023-05-03 11:00] LABS: Osmolality, Serum 295 mosm/kg (281-305)
[2023-05-03] MEDS: guaiFENesin 200 MG/10 ML 10 ML LIQUID PO (11:14)
[2023-05-03 13:52] LABS: Potassium Urine Random 36.1 mmol/L
[2023-05-03 13:58] LABS: Magnesium 1.9 mg/dL (1.6-2.6)
[2023-05-03 14:32] LABS: Sodium 134 mmol/L (135-145)
--- NOTE | 2023-05-03 14:48 | P.PNIM_ITS ---
Subjective Subjective Date of Service: 05/03/23 Interval History: covid boderandrzej hyponatremia Review of Systems no fevers or chills no new events she seems improving Physical Exam 2 Vital Signs: Vital Signs: Last Vital Signs Temp 97.9 F 05/03/23 07:12 Pulse 81 05/03/23 07:12 Resp 18 05/03/23 07:12 BP 122/73 05/03/23 07:12 Pulse Ox 94 05/03/23 07:12 O2 Del Method Room Air 05/03/23 07:12 O2 Flow Rate 3.0 04/30/23 15:03 BMI result Body Mass Index 38.1 Appearance: Alert.? Oriented X3.?anxious ,tramulous cvs: rrr, [id number] . res: clear to auscultation ,no rhonchii or wheezing abd: no rebound or guarding ,nt, bs present. ext pulses present , no cyanosis . neuro: axo3 , nonfocal. moving all ext sensations intact Objective Data Active Medications Acetaminophen (Acetaminophen 325 Mg Tablet) 975 mg PO Q6H PRN PRN Reason: Pain, Mild (Pain Scale 1-3) Last Admin: 05/03/23 11:11 Dose: 975 mg Documented By: STEFFANY Aspirin (Aspirin Enteric Coated 81 Mg Tablet.) 81 mg PO DAILY [facility] Last Admin: 05/03/23 08:59 Dose: 81 mg Documented By: STEFFANY Buprenorphine/Naloxone (Buprenorphine/Naloxone 8/2 Mg Film) 1 film SUBLINGUAL DAILY [facility] Last Admin: 05/03/23 08:59 Dose: 1 film Documented By: STEFFANY Buprenorphine/Naloxone (Buprenorphine/Naloxone 4/1 Mg Film) 1 film SUBLINGUAL DAILY@1800 [facility] Last Admin: 05/02/23 17:31 Dose: 1 film Documented By: COTSTEVAN Duloxetine HCl (Duloxetine Hcl 60 Mg Capsule.) 60 mg PO DAILY [facility] Last Admin: 05/02/23 08:48 Dose: 60 mg Documented By: JERUSIA Gabapentin (Gabapentin 300 Mg Capsule) 300 mg PO DAILY [facility] Last Admin: 05/03/23 08:57 Dose: 300 mg Documented By: STEFFANY Guaifenesin (Guaifenesin 200 Mg/10 Ml 10 Ml Liquid) 10 ml PO Q4H PRN PRN Reason: Cough Last Admin: 05/03/23 11:14 Dose: 10 ml Documented By: STEFFANY Heparin Sodium (Porcine) (Heparin Sodium,Porcine 5,000 Unit/Ml Vial) 5,000 unit SUBCUT Q12H [facility] Last Admin: 05/03/23 13:59 Dose: Not Given Documented By: STEFFANY Non-Admin Reason: No Insulin Coverage Lorazepam (Lorazepam 1 Mg Tablet) 1 mg PO ONCE PRN PRN Reason: anxiety pre-mri Meclizine HCl (Meclizine Hcl 12.5 Mg Tablet) 12.5 mg PO TID PRN PRN Reason: Nausea And Vomiting Last Admin: 04/29/23 10:38 Dose: 12.5 mg Documented By: PEDRO Multivitamins/Vitamin C (Multivitamin Tablet) 1 tab PO DAILY [facility] Last Admin: 05/03/23 08:59 Dose: 1 tab Documented By: STEFFANY Ondansetron HCl (Ondansetron Hcl 4 Mg/2 Ml Vial) 4 mg IVPUSH Q8H PRN PRN Reason: Nausea and Vomiting Last Admin: 04/29/23 10:38 Dose: 4 mg Documented By: PEDRO Pharmacy Consult (Consult Rx Etoh Phenob Im/Po) 1 each MISCELLANE ONCE PRN; Protocol PRN Reason: Consult order Phenobarbital (Phenobarbital 15 Mg Tablet) 15 mg PO DAILY [facility]; Protocol Stop: 05/04/23 09:01 Last Admin: 05/03/23 08:58 Dose: 15 mg Documented By: STEFFANY Phenobarbital (Phenobarbital 30 Mg Tablet) 30 mg PO BID [facility] Last Admin: 05/03/23 08:58 Dose: 30 mg Documented By: STEFFANY Senna (Sennosides 8.6 Mg Tablet) 17.2 mg PO BEDTIME PRN PRN Reason: Constipation Sodium Chloride (0.9 % Sodium Chloride Flush 3 Ml Syringe) 3 ml IVFLUSH QSHIFT [facility] Last Admin: 05/03/23 08:59 Dose: 3 ml Documented By: STEFFANY Thiamine HCl (Thiamine Hcl 100 Mg Tablet) 100 mg PO DAILY [facility] Last Admin: 05/03/23 08:58 Dose: 100 mg Documented By: STEFFANY Labs 05/03/23 01:19 05/03/23 14:07 Labs: Laboratory Results - last 24 hr 05/03/23 05/03/23 05/03/23 01:19 01:20 08:51 MCV 98.3 H MCH 33.1 H MCHC 33.7 RDW 17.4 H Plt Count 135 L MPV 9.8 Immature Gran % (Auto) 0.4 Neut % (Auto) 72.6 Lymph % (Auto) 8.7 L Kingman % (Auto) 16.6 H Eos % (Auto) 1.3 Baso % (Auto) 0.4 Lymph # (Auto) 0.2 L Kingman # (Auto) 0.4 Eos # (Auto) 0.0 Baso # (Auto) 0.0 Abs Immat Gran (auto) 0.01 Absolute Neuts (auto) 1.7 L Absolute Nucleated RBC 0.000 Nucleated RBC % (auto) 0.0 Smear Tech's Comments VERIFIED Anion Gap 15 13 Estim Creat Clear Calc 137.4 121.6 Estimated GFR > 60 > 60 Random Glucose 99 164 H Osmolality 295 Lactic Acid 0.8 Calcium 8.6 8.8 Magnesium 1.4 L* 1.9 Total Bilirubin 0.6 AST 44 H ALT 41 H Alkaline Phosphatase 212 H Total Protein 6.0 L Albumin 3.4 L Urine Color Yellow Urine Appearance Clear Urine pH 8.5 Ur Specific Nuevo 1.010 Urine Protein Negative Urine Glucose (UA) Negative Urine Ketones Negative Urine Blood Negative Urine Nitrite Negative Ur Leukocyte Esterase Negative Ur Random Sodium Ur Random Potassium Ur Random Chloride Influenza Type A (PCR) NEGATIVE Influenza Type B (PCR) NEGATIVE RSV RNA Qual (PCR) NEGATIVE SARS-CoV-2 RNA (RT-PCR) POSITIVE A 05/03/23 12:44 MCV MCH MCHC RDW Plt Count MPV Immature Gran % (Auto) Neut % (Auto) Lymph % (Auto) Kingman % (Auto) Eos % (Auto) Baso % (Auto) Lymph # (Auto) Kingman # (Auto) Eos # (Auto) Baso # (Auto) Abs Immat Gran (auto) Absolute Neuts (auto) Absolute Nucleated RBC Nucleated RBC % (auto) Smear Tech's Comments Anion Gap Estim Creat Clear Calc Estimated GFR Random Glucose Osmolality Lactic Acid Calcium Magnesium Total Bilirubin AST ALT Alkaline Phosphatase Total Protein Albumin Urine Color Urine Appearance Urine pH Ur Specific Nuevo Urine Protein Urine Glucose (UA) Urine Ketones Urine Blood Urine Nitrite Ur Leukocyte Esterase Ur Random Sodium 85.0 Ur Random Potassium 36.1 Ur Random Chloride 64.0 Influenza Type A (PCR) Influenza Type B (PCR) RSV RNA Qual (PCR) SARS-CoV-2 RNA (RT-PCR) Imaging Chest x-ray: Radiologist's impression: Impressions Chest X-Ray 05/03/23 01:26 IMPRESSION: No acute cardiopulmonary findings. Assessment and Plan (1) Hyponatremia: Status: Acute Plan 52-year-old female with history of genital herpes, unspecified mood disorder, alcohol use disorder, opioid dependence on Suboxone, history polysubstance abuse admitted for further management of acute alcohol withdrawal Acute alcohol withdrawal no hx of seziure or DTs,CIWA improving but patient still very anxious /tramulous adjusted po phenobarbital 30 mg po bid( phenobarbital levels 11.6),thiamine, folic acid Addiction team following Abn CN exam/intermittent slurred speech Head CT neg Per neuro, do not repeat head CT, MRI-nonspecific chronic ischemic microangiopathy including pontine area could be microvascular changes . continue continue 81mg daily, hold atorvastatin due to elevated lft's. neuro checks,swallow eval,neurology seen patient and reviewed mri -speech changes due to alcohol use ,also mri reviewed No other acute findings on the MRI. She feels like she is back to normal. No further neurological workup is necessary. mild hyponatremia : 131 -138-134 added serum and urine osmolarity and electrolytes nephrology eval. Elevated LFTs-likely r/t etoh use, but significantly higher than prior admissions lfts improving U/S abdomen shows fatty liver, no focal lesion, no obstruction HIV antibody, hepatitis C -neg screening ,Hbsab reactive. follow liver panel,avoid statin opiate dependence continue suboxone,addiction team following-for further adjustments . unspecified mood disorder-continue home meds. due to severe anxiety might also be contributing to presentation-added psych eval. facial rash:likely neurodermitis improving Weakness/Recurrent falls-multiple bruises on arms, buttock Head CT/cervical spine CT negative for any intracranial abnormality, subluxation, dislocation, fracture. denies any pain Morbid obesity: Encouraged to lose weight, cutdown calories. PT eval:str DVT prophylaxis-heparin Full code ongoiing hospitlisation need: alcohol withdrawal scoring high on CIWA, patient requires with phenobarbital per protocol,ciwa monitering and close monitoring of withdrawal symptoms to prevent alcohol withdrawal seizure or delirium tremens. Quality Stroke Does the patient have a stroke diagnosis?: No VTE Prior VTE?: No VTE Risk Level:: Medical - moderate - high VTE Device Contraindication: Treatment Not Indicated VTE Drug Contraindication: N/A - Med Ordered
[2023-05-03 15:57] LABS: Osmolality Urine 459 mosm/kg (373-1093)
[2023-05-03] MEDS: Ibuprofen 400 MG TABLET PO ×2 (17:18→23:01)
[2023-05-03] MEDS: Buprenorphine/Naloxone 4/1 mg FILM 1 FILM SUBLINGUAL (17:19)
[2023-05-03 20:27] LABS: Anion Gap 13 (12-20); Blood Urea Nitrogen 8 mg/dL (9-16); Calcium 8.6 mg/dL (8.4-10.2); Carbon Dioxide 23 mmol/L (22-29); Chloride 101 mmol/L (96-108); Creatinine Clr Calc Pharmacy 117.7; Estimated Glomerular Filt Rate > 60; Glucose Random 168 mg/dL (60-115); Potassium 3.9 mmol/L (3.3-5.1); Sodium 133 mmol/L (135-145)
[2023-05-03] MEDS: LORazepam 1 MG TABLET PO (21:36)
[2023-05-03] MEDS: Meclizine HCl 12.5 MG TABLET PO (23:01)
[2023-05-04] VITALS (7 sets, daily range): BP systolic 116–138; BP diastolic 63–85; PULSE 81–90; RESP 18–20; TEMP 36.6–38.1; O2SAT 96–100
--- NOTE | 2023-05-04 00:59 | PC.NURSE ---
Addendum entered by Jalen Seymour RN 05/04/23 01:01: aware. No IV meds ordered at this time. Original Note: IV catheter inadvertently pulled out by patient. Patient refusing placement of new IV access
[2023-05-04] MEDS: Acetaminophen 325 MG TABLET 975 MG PO ×2 (03:19→14:53)
[2023-05-04] MEDS: guaiFENesin 200 MG/10 ML 10 ML LIQUID PO ×2 (03:23→20:28)
[2023-05-04] MEDS: Ibuprofen 400 MG TABLET PO ×2 (05:36→17:16)
[2023-05-04 07:41] LABS: Anion Gap 11 (12-20); Blood Urea Nitrogen 8 mg/dL (9-16); Calcium 8.4 mg/dL (8.4-10.2); Carbon Dioxide 27 mmol/L (22-29); Chloride 103 mmol/L (96-108); Creatinine Clr Calc Pharmacy 134.8; Estimated Glomerular Filt Rate > 60; Glucose Random 135 mg/dL (60-115); Potassium 3.5 mmol/L (3.3-5.1); Sodium 137 mmol/L (135-145)
[2023-05-04] MEDS: PHENobarbitaL 15 MG TABLET PO (08:26)
[2023-05-04] MEDS: Gabapentin 300 MG CAPSULE PO (08:26)
[2023-05-04] MEDS: Buprenorphine/Naloxone 8/2 mg FILM 1 FILM SUBLINGUAL (08:26)
[2023-05-04] MEDS: Multivitamin TABLET 1 TAB PO (08:26)
[2023-05-04] MEDS: Aspirin Enteric Coated 81 MG TABLET.DR PO (08:26)
[2023-05-04] MEDS: Thiamine HCL 100 MG TABLET PO (08:26)
[2023-05-04] MEDS: PHENobarbitaL 30 MG TABLET PO ×2 (08:26→20:28)
[2023-05-04] MEDS: 0.9 % Sodium Chloride Flush 3 ML SYRINGE IVFLUSH ×2 (08:27→16:08)
[2023-05-04] MEDS: Throat Lozenge, Medicated LOZENGE 1 LOZENGE MUCOUS MEM ×4 (09:04→20:28)
--- NOTE | 2023-05-04 13:54 | MHC.CM.PN ---
EMR reviewed and per MD rounds, pt is not medically cleared for D/C due to needing continued management of ETOH withdrawal, pt on phenobarbital. CM will continue to follow.
[2023-05-04] MEDS: Buprenorphine/Naloxone 4/1 mg FILM 1 FILM SUBLINGUAL (17:16)
--- NOTE | 2023-05-04 17:19 | PM.EVENT ---
Event Note Date of Service: 05/04/23 Event Note: Addiction note: Patient calling [facility] outpatient office numerous times today with various concerns. She expressed angst about going home prior to starting Disulfiram--and really would like to start it here as a relapse prevention strategy. This wirter called pharamcy to inquire if it was on formulary as it does not come up when typed in. Pharmacist confrimed that we do have it in stock, 250mg dose. Plan: -Disulfiram 250mg QD to start tomorrow morning -Informed patient and RN Time Spent With Patient Time: Total time managing care of this patient today ____ minutes.
[2023-05-04] MEDS: Disulfiram 250 MG TABLET PO (21:41)
[2023-05-05] MEDS: Acetaminophen 325 MG TABLET 975 MG PO (00:59)
[2023-05-05] MEDS: Throat Lozenge, Medicated LOZENGE 1 LOZENGE MUCOUS MEM ×2 (00:59→05:11)
[2023-05-05] MEDS: LORazepam 1 MG TABLET PO (02:06)
[2023-05-05 04:00] VITALS: BP 136/72; PULSE 73; RESP 18; TEMP 36.8; O2SAT 99
[2023-05-05] MEDS: Ibuprofen 400 MG TABLET PO (05:12)
[2023-05-05 06:24] LABS: IDNOW Serial# 08D9AD1C; Strep A Nucleic Acid Negative (Negative)
[2023-05-05 07:10] VITALS: BP 130/68; PULSE 82; RESP 20; TEMP 36.2; O2SAT 99
[2023-05-05 07:34] LABS: Anion Gap 10 (12-20); Blood Urea Nitrogen 7 mg/dL (9-16); Calcium 8.8 mg/dL (8.4-10.2); Carbon Dioxide 29 mmol/L (22-29); Chloride 100 mmol/L (96-108); Creatinine Clr Calc Pharmacy 145.4; Estimated Glomerular Filt Rate > 60; Glucose Random 123 mg/dL (60-115); Sodium 135 mmol/L (135-145)
[2023-05-05] MEDS: Thiamine HCL 100 MG TABLET PO (08:24)
[2023-05-05] MEDS: PHENobarbitaL 30 MG TABLET PO (08:24)
[2023-05-05] MEDS: DULoxetine HCl 20 MG CAPSULE.DR 40 MG PO (08:24)
[2023-05-05] MEDS: Multivitamin TABLET 1 TAB PO (08:24)
[2023-05-05] MEDS: Buprenorphine/Naloxone 8/2 mg FILM 1 FILM SUBLINGUAL (08:25)
[2023-05-05] MEDS: Aspirin Enteric Coated 81 MG TABLET.DR PO (08:25)
[2023-05-05] MEDS: Gabapentin 300 MG CAPSULE PO (08:25)
[2023-05-05] MEDS: Disulfiram 250 MG TABLET PO (08:25)
[2023-05-05] MEDS: 0.9 % Sodium Chloride Flush 3 ML SYRINGE IVFLUSH (08:33)
[2023-05-05 09:20] VITALS: BP 130/68; PULSE 82; O2SAT 99
[2023-05-05] MEDS: hydrOXYzine HCL 25 MG TABLET PO (10:45)
--- NOTE | 2023-05-05 11:57 | W.MHC.F2F ---
Service Date Service Date: 05/05/23 Encounter Date of encounter: 05/05/23 Encounter: alcohol withdrawal, hyponaremia ,elevated lft.s, covid. Reasons for Services Signs and symptoms assessed: any new symptoms-sob . Reason for snf: medication management, medication treatment and teach disease management Reason for physical therapy: home safety and mobility, therapeutic exercises, restore joint function, gait/transfer training, assess need for DME, ADL training, energy conservation and other MD Overseeing Care: Baljeet Perry Homebound: Leaving the home is medically contraindicated at this time without the asist of a device and/or another person due th the listed conditions above and below. Reason homebound: weakness related to hospital stay Homebound supporting statement: Patient has multiple comorbidities including alcohol withdrawal, hyponatremia, elevated LFTs, COVID, generalized weak post hospitalization need help with VNA and PT-need help with labs draws, appointments, maximize strength with the help of PT. Certification: Based on the above findings, I certify that this patient is confined to the home and needs intermittent snf care, physical therapy and/or speech therapy, or continues to need occupational therapy. The patient is under my care, and I have initiated the establishment of the plan of care. The patient will be followed by a physician who will periodically review the plan of care. Time Spent With Patient Time: Total time managing care of this patient today ____ minutes.
--- NOTE | 2023-05-05 12:03 | P.DS_ITS ---
DS: Providers Provider Date of Service: 05/05/23 Date of admission: 04/28/23 11:56 Date of discharge: 05/05/23 Primary care physician: Baljeet Perry MD Consults: 04/27/23 22:20 Addiction Medicine Stat Consulting Provider: Addiction Covering Reason for consultation: ETOH abuse, ?suboxone abuse, not doing well does not want to stay Has provider been notified: No 04/28/23 16:11 Consult to Neurology Routine Consulting Provider: [facility] Reason for consultation: abn CN IV exam, delayed EOMs, slurred speech 04/28/23 16:36 Consult to Infectious Diseases Routine Consulting Provider: [facility] Reason for consultation: facial rash- V1 distr and perioral. ?zoster, ?herpes simplex 04/28/23 20:41 Consult to Wound Care Routine Reason for consultation: facial rash/redness 05/02/23 08:47 Consult to Psychiatry Routine Consulting Provider: Psych [facility] Reason for consultation: Anxiety severe Has provider been notified: No 05/03/23 08:17 Consult to Nephrology Routine Consulting Provider: [facility] Reason for consultation: Hyponatremia mild Has provider been notified: No Attending physician on discharge: Suzanne Elliott Discharging clinician: Suzanne Elliott DS: Diagnosis Discharge Diagnosis (1) Hyponatremia: Status: Acute DS: Summary Hospital Course Hospital Course: 52-year-old female with history of genital herpes, unspecified mood disorder, alcohol use disorder, opioid dependence on Suboxone, history polysubstance abuse presented to the ED last night due to acute alcohol intoxication with multiple falls. The patient states that she had been living in a sober home for about 8 months but then returned to the area and began drinking again. She states that she does try to abstain from alcohol but her continues to drink. Last night, she reports she consumed 1.75 L of vodka and blacked out. Reports she started drinking to manage withdrawal symptoms including shakes. She denies any history of DTs or alcohol withdrawal seizures though has been admitted several times for alcohol withdrawal. She denies any ongoing illicit substance use. Currently she is reporting tremors, nausea, dry heaves, intermittent slurred speech and word-finding difficulty. She states last night she feels she was experiencing visual and auditory hallucinations but denies any ongoing hallucinations. She denies any confusion. She did sustain multiple falls per her report the does not recall if she hit her head or lost consciousness. She also reports gait instability and weakness as well as decreased PO intake r/t her alcohol consumption. She follows with the [facility] for her Suboxone management. Noted on exam is a scabbed facial rash. Reports she has had the rash for about 1 week. Initially picked at lesions with serous drainage, now scabbed over. No pain or itch. Has known history of herpes simplex and has had similar facial lesions before. No purulent drainage, fevers, chills. On arrival, mild hypertension on admission with BP 150/89 with mild tachycardia, vitals otherwise stable. Hematology studies unremarkable. Renal function normal, electrolyte levels largely unremarkable. Liver panel this morning revealed slight improvement in LFTs but still with total bilirubin 2.0, direct bilirubin 1.2, AST 529, ALT 163, alkaline phosphatase 482. CK 79. ETOH level on arrival 452. Urine tox screen positive for benzos and was administered 2 mg lorazepam while in the ED . Ct head/cervical spine negative for any acute intracranial abnormality, fracture, or dislocation. There were degenerative changes noted in the cervical spine. Abdominal U/S failed fatty liver, but no focal lesion. Despite benzodiazepines, patient continued to score of 15 on CIWA scale and was started on phenobarbital per protocol. Addiction medicine will continue to follow for Suboxone management. 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 no acute intervetntion as per neuro. speech abnormalities possibly secondary to alcohol intoxication. Strongly advised to the patient to avoid alcohol use(to avoid further electrolytic abnormalities as well as further liver function abnormalities). patient started on asa 81 mg daily ( considering microvascular changes on mri). consider statin therapy outpatient if Lft's allows. seen by PT- home with pt ,continue to use walker. Hyponatremia -flacuates ,avoid alcohol use ,moniter bmp outpatient.also psych recomended to adjust cymbalata to 40 mg po daily. LFt's:multifactorial ( possible fatty liver ,alcohol use) seems improving,avoid alcohol use ,moniter bmp,lft's outpatient. alcohol use :addiction saw added disulfram ,follow up with Yazmin mckinnon outpachino bui. COVID: Patient is asymptomatic, advised self isolation for 5 more days. plan: continue subaxone, disulfaram as per addiction ,follow up Bren barryn outpatient moniter bmp.lft's outpatient Strongly advised to abstain from alcohol Follow-up outpatient psych provider also and PCP. Above management discussed with the patient in detail length she understand and in agreement with the above plan, total time spent 50 minute. Time Attestation Discharge coordination time: Greater than 30 minutes Quality: Safe Use of Opioids Does Pt have an Active Cancer Diagnosis on the Problem List?: No Quality: Stroke Does the patient have a stroke diagnosis?: No Physical Exam Vital Signs: Vital Signs: Last Vital Signs Temp 97.2 F 05/05/23 07:10 Pulse 82 05/05/23 09:20 Resp 20 05/05/23 07:10 BP 130/68 05/05/23 09:20 Pulse Ox 99 05/05/23 09:20 O2 Del Method Room Air 05/05/23 07:10 O2 Flow Rate 3.0 04/30/23 15:03 BMI result Body Mass Index 38.1 Appearance: Alert.? Oriented X3.not in distress. cvs: rrr, [id number] . res: clear to auscultation ,no rhonchii or wheezing abd: no rebound or guarding ,nt, bs present. ext pulses present , no cyanosis . neuro: axo3 , nonfocal. moving all ext sensations intact DS: Data Data Completed and Pending Completed studies during hospitalization [Text1]: Procedures Detoxification Services for Substance Abuse Treatment (05/19/21) Labs on day of discharge: Laboratory Results - last 24 hr 05/05/23 05/05/23 05:36 06:37 Sodium 135 Potassium 4.0 Chloride 100 Carbon Dioxide 29 Anion Gap 10 L BUN 7 L Creatinine 0.51 Estim Creat Clear Calc 145.4 Estimated GFR > 60 Random Glucose 123 H Calcium 8.8 S. pyogenes GrpA ADDISON Negative Preliminary micro results at discharge 05/03/23 01:19 Blood Culture - Preliminary Blood - Venous No growth after 48 hours. 05/03/23 01:19 Blood Culture - Preliminary Blood - Venous No growth after 48 hours. Imaging Chest x-ray: Radiologist's impression: ITS Impressions Cervical Spine CT 04/27/23 23:40 IMPRESSION: 1. No acute intracranial pathology. 2. No acute fracture or acute malalignment in the cervical spine. 3. Marked multilevel degenerative spondylosis in the cervical spine with chronic anterolisthesis of C4 on C5. Head CT 04/27/23 23:40 IMPRESSION: 1. No acute intracranial pathology. 2. No acute fracture or acute malalignment in the cervical spine. 3. Marked multilevel degenerative spondylosis in the cervical spine with chronic anterolisthesis of C4 on C5. Abdomen Ultrasound 04/28/23 07:34 IMPRESSION: Diffusely increased hepatic echotexture suggesting diffuse fatty infiltration but no focal hepatic lesion or biliary ductal dilatation. Brain MRI 04/28/23 19:02 IMPRESSION: Limited exam with motion artifacts. No acute intracranial process. Moderate diffuse brain parenchymal volume loss for patient age. Mild scattered white matter signal changes in the cerebral white matter which are nonspecific. Moderate signal changes in the shalini which may be due to chronic ischemic microangiopathy. In the correct clinical setting, osmotic demyelination syndrome can have a similar imaging appearance and clinical correlation is recommended. Chest X-Ray 05/03/23 01:26 IMPRESSION: No acute cardiopulmonary findings. Discharge Plan Discharge Anticipated Discharge Date/Time: 05/05/23 11:36 Patient Disposition: Home Health Service Discharge Diagnosis: alcohol withdrawal ,hyponatremia ,covid ,elevated lft's Referrals: Baljeet Champagne MD [Primary Care Provider] - 1 Week Yazmin Mckinnon CNP [Nurse Practitioner] - 1 Week Discharge Medications: New buprenorphine-naloxone [Suboxone] 12-3 mg film 1 film buccal Q24H Qty: 10 0RF disulfiram 250 mg tablet 250 mg PO DAILY Qty: 30 0RF aspirin 81 mg Tablet,Delayed Release (Dr/Ec) 81 mg PO DAILY Qty: 30 0RF Chloraseptic Sore Throat 6-10 mg Lozenge 1 donnell mucous membrane Q2H PRN (Reason: Sore Throat) Qty: 20 0RF thiamine mononitrate (vit B1) 100 mg Tablet 100 mg PO DAILY Qty: 30 0RF folic acid 1 mg tablet 1 mg PO DAILY Qty: 30 0RF Continued buprenorphine-naloxone 8-2 mg film 1 film sublingual DAILY Qty: 3 0RF multivitamin Tablet 1 tab PO DAILY meclizine 12.5 mg Tablet 12.5 mg PO TID PRN (Reason: Nausea And Vomiting) gabapentin 300 mg capsule 300 mg PO DAILY ibuprofen 600 mg tablet 600 mg PO DAILY PRN (Reason: Pain (Scale Score 4-6)) thiamine HCl (vitamin B1) 100 mg tablet 100 mg PO DAILY Qty: 30 3RF folic acid 1 mg tablet 1 mg PO DAILY Qty: 30 3RF Changed duloxetine 60 mg capsule,delayed release(DR/EC) 40 mg PO DAILY Qty: 30 0RF Discharge Orders: Discharge Order (Routine); Ordered 05/05/23 Ordered By: Suzanne Elliott Diet: Advance to usual diet Activity on Discharge: As tolerated Stand Alone Forms: Patient Portal Discharge page Other Ambulatory Orders: Basic Metabolic Panel (Routine) Timeframe: 1 Week Facility: [facility] - Location: Laboratory Ordered By: Suzanne Elliott Liver Panel (Routine) Timeframe: 1 Week Facility: [facility] - Location: Laboratory Ordered By: Suzanne Elliott Activity Restrictions/Additional Instructions: stop drinking alcohol. monitor the lesions on your face for redness, yellow drainage, fevers, or any other concerns. please follow up with your doctor. you liver enzymes are up you need them rechecked in 24 hours Care Plan Goals: Patient was admitted for alcohol withdrawal, some speech abnormality: Patient was started on phenobarb protocol for alcohol withdrawal, also seen by Neurology and MRI of brain was done: Patient has some microvascular changes , and mild pontine area changes (old): With above supportive care patient alcohol withdrawal improved, patient speech is at baseline, walking better also. Strongly advised to the patient to avoid alcohol use(to avoid further electrolytic abnormalities as well as further liver function abnormalities, as well as neurological worsening). patient started on asa 81 mg daily ( considering microvascular changes on mri). consider statin therapy outpatient if Lft's allows. seen by PT- home with pt ,continue to use walker. Hyponatremia -flacuates ,avoid alcohol use ,moniter bmp outpatient.also psych recomended to adjust cymbalata to 40 mg po daily. LFt's:multifactorial ( possible fatty liver ,alcohol use) seems improving,avoid alcohol use ,moniter bmp,lft's outpatient. alcohol use :addiction saw added disulfram ,follow up with Yazmin mckinnon outpatient. COVID: Patient is asymptomatic, advised self isolation for 5 more days. Health Concerns: as above. Plan of Treatment: as above. Assessment: as above. Patient Instructions: Alcohol Intoxication (ED)
--- NOTE | 2023-05-05 13:00 | MHC.CM.PN ---
Pt has been medically cleared for DC, she is going home via family transport, and will have [facility] services.
== END 2023-05-05 13:06 | disposition home health service (06) | DRG 773 ==
LOC: HO.ED 21:45 → HO.EDOVER 04-28 19:08 → HO.S3 04-28 19:16 → HO.IMC 05-03 04:27
PROVIDERS: Internal Medicine; Student in an Organized Health Care Education/Training Program; Admitting Provider Physician Assistant; Emergency Provider Emergency Medicine; PCP Internal Medicine; Visit Provider Internal Medicine
DX: F10.239 Alcohol dependence with withdrawal, unspecified (principal); F11.20 Opioid dependence, uncomplicated; U07.1 COVID-19; K76.0 Fatty (change of) liver, not elsewhere classified; L28.0 Lichen simplex chronicus; E66.01 Morbid (severe) obesity due to excess calories; E87.1 Hypo-osmolality and hyponatremia; Z68.38 Body mass index [BMI] 38.0-38.9, adult; Y90.8 Blood alcohol level of 240 mg/100 ml or more; Z71.3 Dietary counseling and surveillance; F10.229 Alcohol dependence with intoxication, unspecified; F39 Unspecified mood [affective] disorder; Z79.899 Other long term (current) drug therapy
CPT/HCPCS: 0241U; 36415; 70450; 70551; 71045; 72125; 76705; 80048; 80053; 80061; 80076; 80143; 80184; 80307; 81003; 82436; 82550; 82947; 83036; 83605; 83735; 83930; 83935; 84133; 84295; 84300; 85025; 85610; 85730; 86704; 86706; 86803; 87040; 87340; 87389; 87651; 97116; 97162; 97166; 97530; 97535; 99285; J1644; J2405; J2560; J3411; J3475

== ENCOUNTER → 2023-04-27 21:04 | Outpatient (BNV) | payer BC, SELFPAY | PROVIDERS: Emergency Provider Emergency Medicine; Visit Provider Physician Assistant | DX: E87.1 Hypo-osmolality and hyponatremia (principal); F10.139 Alcohol abuse with withdrawal, unspecified; D70.9 Neutropenia, unspecified | CPT/HCPCS: 99223; 99232; 99239; 99499; G0180 ==

== ENCOUNTER → 2023-04-28 11:56 | Outpatient (BNV) | payer BC, SELFPAY | PROVIDERS: Admitting Provider Physician Assistant; Emergency Provider Emergency Medicine; PCP Internal Medicine; Visit Provider Psychiatry & Neurology Neurology | DX: R29.90 Unspecified symptoms and signs involving the nervous system (principal); R47.81 Slurred speech; F10.929 Alcohol use, unspecified with intoxication, unspecified | CPT/HCPCS: 99222 ==

== ENCOUNTER → 2023-04-28 11:56 | Outpatient (BNV) | payer BC, SELFPAY | PROVIDERS: Admitting Provider Physician Assistant; Emergency Provider Emergency Medicine; PCP Internal Medicine; Visit Provider Internal Medicine | DX: R21 Rash and other nonspecific skin eruption (principal) | CPT/HCPCS: 99221 ==

== ENCOUNTER → 2023-04-28 11:56 | Outpatient (BNV) | payer BC, SELFPAY | PROVIDERS: Admitting Provider Physician Assistant; Emergency Provider Emergency Medicine; PCP Internal Medicine; Visit Provider Nurse Practitioner Psychiatric/Mental Health | DX: F10.20 Alcohol dependence, uncomplicated (principal); F11.90 Opioid use, unspecified, uncomplicated | CPT/HCPCS: 99232; 99499 ==

== ENCOUNTER 2023-05-11 08:49 | Outpatient (AMB) | payer BC, SELFPAY ==
[2023-05-11 08:57] VITALS: BP 140/80; PULSE 94; RESP 24; O2SAT 98
--- NOTE | 2023-05-11 08:57 | A.OFFVISCC_ITS ---
Intake Vital Signs 05/11/23 08:57 BP 140/80 H Blood Pressure Location Lt brachial Position Sitting Respiration 24 H Pulse 94 Pulse Source Pulse Oximeter Pulse Oximetry (%) 98 Oxygen Delivery Method Room Air Intake Visit Reasons: MAT Allergies No Known Allergies Allergy (Unverified 03/31/23 14:09) Medication List - Last Reconciled 05/11/23 by Yazmin Mckinnon, JUS aspirin 81 mg PO DAILY benzocaine-menthol 6-10 mg (Chloraseptic Sore Throat) 1 donnell mucous membrane Q2H PRN buprenorphine-naloxone 12-3 mg (Suboxone) 1 film buccal Q24H disulfiram 250 mg PO DAILY duloxetine 40 mg (0.6667 x 60 mg) PO DAILY folic acid 1 mg PO DAILY gabapentin 300 mg PO DAILY ibuprofen 600 mg PO DAILY PRN meclizine 12.5 mg PO TID PRN multivitamin 1 tab PO DAILY thiamine mononitrate (vit B1) 100 mg PO DAILY HPI MAT HPI Details Patient presents for AUD and OUD treatment follow up Bright affect Has been taking Disulfiram since discharging from [facility] 2 weeks since no alcohol Has been cooking and cleaning --finds it therapeutic Zoom meetings-due to COVID PCP appt this afternoon Suboxone 12mg daily tolerating dose Patient still pressured and hyperverbal. Responded easily to redi rection/interjection. right side ?abcess in axilla. 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 [facility] Medical History Rash Encounter for monitoring Suboxone maintenance therapy Hypertension Alcohol use disorder, severe, dependence Opioid use disorder Alcohol abuse Surgical History History of gastric surgery Family History Father Lung cancer Social History Household Members: Spouse Housing: House Do you presently have visiting nurse or other home services: No Alcohol intake: current Alcohol intake frequency: 3 or more drinks per day Alcohol type: beer and hard liquor Comment: refuses alarms Patient Tobacco Use Status: Former Tobacco user Quit Date: 2022 Tobacco use type: Cigarette Years Smoked: 2 Second Hand Smoke Exposure: No service: No Current occupational status: employed Review of Systems Const Reports as per HPI and Reports no additional complaints Physical Exam Vital Signs: Last Vital Signs Pulse 94 05/11/23 08:57 Resp 24 H 05/11/23 08:57 BP 140/80 H 05/11/23 08:57 Pulse Ox 98 05/11/23 08:57 Oxygen Delivery Method Room Air 05/11/23 08:57 Const General: cooperative, healthy appearing, no acute distress and well groomed Nutritional Appearance: average body habitus Orientation/consciousness: patient oriented x3 Limitations: no limitations Chest Breast/axilla palpation: other (right sided firm, red, warm ) Neuro General: patient oriented x3 Psych Appearance: well kempt Speech and movement: Pressured speech present Affect: normal affect and Animated affect present Attitude: cooperative Thought process: Tangential thought process present Thought content: Normal thought content present Insight: Fair insight present (Psych) Judgement: Fair judgement present (Psych) Assessment & Plan Assessment & Plan (1) Opioid use disorder: Code(s): F11.90 - Opioid use, unspecified, uncomplicated Plan: * continue suboxone at current dose (2) Alcohol use disorder, severe, dependence: Code(s): F10.20 - Alcohol dependence, uncomplicated Plan: * increase disulfiram to 500mg QD * relapse prevention discussion Medications: New clindamycin HCl 300 mg PO TID 21 caps 0RF Coding Level of Care Code Est Pt Level 4 (58460) Diagnoses Opioid use disorder F11.90 Alcohol use disorder, severe, dependence F10.20
== END 2023-05-11 10:15 | disposition home or self-care (01) ==
PROVIDERS: PCP Internal Medicine; Visit Provider Nurse Practitioner Psychiatric/Mental Health
DX: F11.90 Opioid use, unspecified, uncomplicated (principal); F10.20 Alcohol dependence, uncomplicated
CPT/HCPCS: 99214

== ENCOUNTER → 2023-05-11 08:49 | Outpatient (BNVA) | payer BC, SELFPAY | PROVIDERS: PCP Internal Medicine; Visit Provider Nurse Practitioner Psychiatric/Mental Health ==

== ENCOUNTER 2023-05-13 08:22 | Inpatient (IN) | payer BC, MEDICAID, SELFPAY ==
--- NOTE | ~2023-05-13 | US_ITS ---
STUDY: Right axillary ultrasound INDICATION: Axillary abscess TECHNIQUE: Real-time ultrasound was used to scan the right axilla. Permanent documented images obtained and cine loops provided. FINDINGS: Within the right axilla, approximately 1-2 mm beneath the skin surface, 3.3 x 1.7 x 3.9 cm avascular, isoechoic collection is identified. Cine images demonstrate thick internal echogenic material but no drainable fluid collection. Surrounding soft tissue edema seen. US/US extremity nonvascular IMPRESSION: 3.9 cm right axillary collection suspicious for abscess. No identifiable drainable fluid component.
[2023-05-13 08:35] VITALS: BP 149/80; PULSE 98; RESP 18; TEMP 37; O2SAT 98; BMI 38.7
--- NOTE | 2023-05-13 09:39 | ED.GENADULT ---
HPI - General Adult General Chief complaint: General Medical Stated complaint: Samano under right arm Time Seen by Provider: 05/13/23 09:16 Source: patient Mode of arrival: ambulatory Limitations: no limitations History of Present Illness HPI narrative: 52-year-old female presents for evaluation of pain to the right axilla region, patient reports pain has been ongoing for the past 4 days patient reports she had a small pimple which she tried to pop and since then she has been having pain, swelling to the affected area. Also reports subjective fevers and chills. Denies CP, sob, nausea, vomiting, abd pain, headache, vision changes States she is taking Clindamycin 300 mg TID for this infection... Related Data Home Medications Medication Instructions Recorded Confirmed gabapentin 300 mg capsule 300 mg PO DAILY 04/28/23 05/11/23 ibuprofen 600 mg tablet 600 mg PO DAILY PRN Pain (Scale 04/28/23 05/11/23 Score 4-6) meclizine 12.5 mg tablet 12.5 mg PO TID PRN Nausea And 04/28/23 05/11/23 Vomiting multivitamin 1 tab PO DAILY 04/28/23 05/11/23 Previous Rx's Medication Instructions Recorded aspirin 81 mg tablet,delayed 81 mg PO DAILY #30 tabs 05/05/23 release benzocaine 6 mg-menthol 10 mg 1 donnell mucous membrane Q2H PRN Sore 05/05/23 lozenges (Chloraseptic Sore Throat) Throat #20 ea disulfiram 250 mg tablet 250 mg PO DAILY #30 tabs 05/05/23 duloxetine 60 mg capsule,delayed 40 mg (0.6667 x 60 mg) PO DAILY 05/05/23 release #30 caps folic acid 1 mg tablet 1 mg PO DAILY #30 tabs 05/05/23 thiamine mononitrate (vit B1) 100 100 mg PO DAILY #30 tabs 05/05/23 mg tablet clindamycin HCl 300 mg capsule 300 mg PO TID #21 caps 05/11/23 buprenorphine 12 mg-naloxone 3 mg 1 film buccal Q24H #10 ea 05/12/23 sublingual film (Suboxone) Allergies Allergy/AdvReac Type Severity Reaction Status Date / Time No Known Allergies Allergy Verified 05/13/23 08:35 Review of Systems Review of Systems: Yes all other systems are reviewed and are negative PMFSH Past Medical History Attestation statement: The following information was validated with the patient. Source: old records reviewed and nursing notes reviewed Medical History Rash Encounter for monitoring Suboxone maintenance therapy Hypertension Alcohol use disorder, severe, dependence Opioid use disorder Alcohol abuse Surgical History History of gastric surgery Family History Family History Father Lung cancer Social History Social History Household Members: Spouse Housing: House Do you presently have visiting nurse or other home services: No Alcohol intake: current Alcohol intake frequency: 3 or more drinks per day Alcohol type: beer and hard liquor Comment: refuses alarms Patient Tobacco Use Status: Former Tobacco user Quit Date: 2022 Tobacco use type: Cigarette Years Smoked: 2 Second Hand Smoke Exposure: No Advance Directives: No service: No Current occupational status: employed Physical Exam ED Vital Signs: Vital Signs - 24 hr 05/13/23 08:35 Temperature 98.6 F Pulse Rate 98 Respiratory Rate 18 Blood Pressure 149/80 H Pulse Oximetry 98 Oxygen Delivery Method Room Air BMI result Body Mass Index 38.7 vss Appearance: Alert.? Oriented X3.? No acute distress.? Head: Normocephalic, atraumatic, no step-offs or deformities Eyes: Pupils equal, round and reactive to light.? ENT: Pharynx normal.? Neck: Normal inspection.? Neck supple.? CVS: Normal heart rate and rhythm.? Pulses normal.? Respiratory: No respiratory distress.? Breath sounds normal.? Abdomen: Soft and nontender.? Skin: Skin warm and dry.? Normal skin color.? Normal skin turgor.? + erythematous r axilla w/ a large area 4 cm x 4 cm of induration slight streaking Neuro: Oriented X 3.? No motor deficit.? No sensory deficit. CN 2-12 intact Course Course Course Narrative: Spoke to Tammi Robison suboxone 4 should be ordered. Reevaluation(s) Reevaluation #1: CBC with leukocytosis and left shift. Chemistry still pending. Normal lactic. US done and pending. Surgery at the bedside I&D done with large amount of purulence, culture sent. Plan- hospital admission criteria failing po atbx Time: 10:53 Medications Administered Discontinued Medications Generic Name Dose Route Start Last Admin Trade Name Jimena PRN Reason Stop Dose Admin Buprenorphine/Naloxone 1 film 05/13/23 09:38 05/13/23 09:46 Buprenorphine/Naloxone 4/1 Mg Film SUBLINGUAL 05/13/23 09:39 1 film ONCE ONE Administration Lidocaine HCl 20 ml 05/13/23 10:26 05/13/23 10:49 Lidocaine Hcl 1 % 20 Ml Vial SUBCUT 05/13/23 10:27 20 ml ONCE ONE Administration Medical Decision Making Medical Decision Making [facility] Narrative: 52-year-old female presents with worsening right axilla abscess x4 days with subjective fevers and chills currently on clindamycin for this. Physical exam significant for erythematous r axilla w/ a large area 4 cm x 4 cm of induration slight streaking Concerns for deep abscess with overlying cellulitis. Will rule out systemic illness. Also rule out metabolic derangements. Area is indurated. Will obtain ultrasound. Will wait to do an incision and drainage or fine-needle aspiration based off of results. Differential Diagnosis Differential Diagnoses: The differential diagnosis associated with the presentation includes Concerns for deep abscess with overlying cellulitis. Will rule out systemic illness. Also rule out metabolic derangements. Admission/Observation Consideration of admission/observation: Escalation of care including admission/observation considered Likely failing PO atbx Consult Healthcare Provider Management of the patient was discussed with: Slate Splitting Supervisor (General surgery) Lab Data [facility] Lab Attestation statement: I reviewed the patient's lab results. 05/13/23 10:23 05/13/23 10:23 Labs: Lab Results 05/13/23 05/13/23 Range/Units 09:58 10:23 WBC 11.2 H (4.8-10.8) X10*3/uL RBC 3.25 L (4.20-5.50) X10*6/uL Hgb 10.7 L (12.0-16.0) g/dl Hct 31.2 L (37.0-47.0) % MCV 96.0 (80.0-98.0) fL MCH 32.9 (27.0-33.0) pg MCHC 34.3 (31.0-35.0) g/dl RDW 15.7 (11.0-16.0) % Plt Count 465 H D (160-400) X10*3/uL MPV 9.6 (9.4-12.3) fL Immature Gran % (Auto) 0.6 H (0.0-0.4) % Neut % (Auto) 85.3 H (45-73) % Lymph % (Auto) 6.0 L (20-40) % [place] % (Auto) 7.3 (2-11) % Eos % (Auto) 0.5 (0-4) % Baso % (Auto) 0.3 (0-2) % Lymph # (Auto) 0.7 L (1.2-4.9) X10*3/uL [place] # (Auto) 0.8 (0.1-1.2) X10*3/uL Eos # (Auto) 0.1 (0.0-0.4) X10*3/uL Baso # (Auto) 0.0 (0.0-0.2) X10*3/uL Abs Immat Gran (auto) 0.07 H (0.00-0.03) X10*3/uL Absolute Neuts (auto) 9.6 H (2.0-8.3) x10*3/uL Absolute Nucleated RBC 0.000 (0.0-0.012) X10*3/uL Nucleated RBC % (auto) 0.0 (0.0-0.2) /100WBC Lactic Acid 1.7 (0.5-2.0) mmol/L Critical Care Time Critical Care Time Critical Care Time: Yes Total Critical Care Time: 45 Attestation: I attest to this time spent taking care of the patient, obtaining history, physical, reviewing labs, imaging, speaking to my attending, speaking to specialist. Discharge Plan Discharge Clinical Impression: Cellulitis Patient Disposition: Admitted As Inpatient Prescriptions: No Action buprenorphine-naloxone [Suboxone] 12-3 mg film 1 film buccal Q24H Qty: 10 0RF multivitamin Tablet 1 tab PO DAILY meclizine 12.5 mg Tablet 12.5 mg PO TID PRN (Reason: Nausea And Vomiting) gabapentin 300 mg capsule 300 mg PO DAILY ibuprofen 600 mg tablet 600 mg PO DAILY PRN (Reason: Pain (Scale Score 4-6)) disulfiram 250 mg tablet 250 mg PO DAILY Qty: 30 0RF aspirin 81 mg Tablet,Delayed Release (Dr/Ec) 81 mg PO DAILY Qty: 30 0RF Chloraseptic Sore Throat 6-10 mg Lozenge 1 donnell mucous membrane Q2H PRN (Reason: Sore Throat) Qty: 20 0RF thiamine mononitrate (vit B1) 100 mg Tablet 100 mg PO DAILY Qty: 30 0RF folic acid 1 mg tablet 1 mg PO DAILY Qty: 30 0RF duloxetine 60 mg capsule,delayed release(DR/EC) 40 mg PO DAILY Qty: 30 0RF clindamycin HCl 300 mg capsule 300 mg PO TID Qty: 21 0RF
[2023-05-13] MEDS: Buprenorphine/Naloxone 4/1 mg FILM 1 FILM SUBLINGUAL (09:46)
[2023-05-13 10:16] LABS: Lactic Acid 1.7 mmol/L (0.5-2.0)
[2023-05-13 10:34] LABS: MANUAL DIFF FLAG NO
[2023-05-13 10:36] LABS: Basophils Percent Auto 0.3 % (0-2); Eosinophils Absolute Auto 0.1 X10*3/uL (0.0-0.4); Eosinophils Percent Auto 0.5 % (0-4); Hematocrit 31.2 % (37.0-47.0); Hemoglobin 10.7 g/dl (12.0-16.0); Imm Gran Abs Auto 0.07 X10*3/uL (0.00-0.03); Imm Gran Pct Auto 0.6 % (0.0-0.4); Lymphocytes Absolute Auto 0.7 X10*3/uL (1.2-4.9); Mean Corpuscular HGB Conc 34.3 g/dl (31.0-35.0); Mean Corpuscular Hemoglobin 32.9 pg (27.0-33.0); Mean Platelet Volume 9.6 fL (9.4-12.3); Monocytes Absolute Auto 0.8 X10*3/uL (0.1-1.2); Monocytes Percent Auto 7.3 % (2-11); Neutrophils Absolute Auto 9.6 x10*3/uL (2.0-8.3); Neutrophils Percent Auto 85.3 % (45-73); Platelet Count 465 X10*3/uL (160-400); Red Blood Count 3.25 X10*6/uL (4.20-5.50); Red Cell Distribution Width 15.7 % (11.0-16.0); White Blood Count 11.2 X10*3/uL (4.8-10.8)
[2023-05-13] MEDS: Lidocaine HCl 1 % 20 ML VIAL SUBCUT (10:49)
[2023-05-13 10:54] LABS: Alanine Aminotransferase 15 U/L (0-31); Albumin Level 3.4 g/dL (3.5-5.0); Alkaline Phosphatase 137 U/L (39-117); Anion Gap 11 (12-20); Aspartate Amino Transferase 22 U/L (5-31); Bilirubin Total 0.6 mg/dL (0.0-1.0); Blood Urea Nitrogen 4 mg/dL (9-16); Calcium 8.9 mg/dL (8.4-10.2); Carbon Dioxide 25 mmol/L (22-29); Chloride 101 mmol/L (96-108); Creatinine Clr Calc Pharmacy 116.9; Estimated Glomerular Filt Rate > 60; Glucose Random 106 mg/dL (60-115); Potassium 3.2 mmol/L (3.3-5.1); Sodium 134 mmol/L (135-145); Total Protein 6.5 g/dL (6.5-8.0)
--- NOTE | 2023-05-13 11:03 | P.CONGS_ITS ---
History of Present Illness Consult details Consult date: 05/13/23 Narrative: [age] year old female referred for a right breast abscess. She states that she started to notice a large pimple like lesion on the right breast about 4 days ago. She says that this has become increasingly larger and more painful. She says that she had been started on oral on the diuretics but this has not help. She has any fever or chills She was discharged from the hospital last week for alcohol abuse. Review of Systems 2 Constitutional: Constitutional: Denies chills and Denies fever(s) Cardiovascular: Cardiovascular: Denies chest pain, Denies dyspnea and Denies dyspnea on exertion Respiratory: Respiratory: Denies cough, Denies dyspnea and Denies dyspnea on exertion Gastrointestinal: Gastrointestinal: Denies hematochezia and Denies change in bowel habits Genitourinary: Genitourinary: Denies hematuria Musculoskeletal: Musculoskeletal: Denies back pain and Denies limited range of motion Neurologic: Denies focal weakness and Denies convulsions Psychiatric: Psychiatric: Denies depression and Denies mood swings PMFSH Past Medical History Medical History Abscess of axilla, right Rash Encounter for monitoring Suboxone maintenance therapy Hypertension Alcohol use disorder, severe, dependence Opioid use disorder Alcohol abuse Family History Family History Father Lung cancer Surgical History Surgical History History of gastric surgery Social History Social History Household Members: Spouse Housing: House Do you presently have visiting nurse or other home services: No Alcohol intake: current Alcohol intake frequency: 3 or more drinks per day Alcohol type: beer and hard liquor Comment: refuses alarms Patient Tobacco Use Status: Former Tobacco user Quit Date: 2022 Tobacco use type: Cigarette Years Smoked: 2 Second Hand Smoke Exposure: No Advance Directives: No service: No Current occupational status: employed Meds Allergies Allergy/AdvReac Type Severity Reaction Status Date / Time No Known Allergies Allergy Verified 05/13/23 08:35 Active Medications: Current Medications Piperacillin Sod/Tazobactam (Sod 3.375 gm/ Sodium Chloride) 50 mls @ 100 mls/hr IV ONCE ONE Stop: 05/13/23 11:19 Home Medications Medication Instructions Recorded Confirmed Last Taken Type gabapentin 300 mg capsule 300 mg PO DAILY 04/28/23 05/11/23 04/27/23 History ibuprofen 600 mg tablet 600 mg PO DAILY PRN Pain (Scale 04/28/23 05/11/23 Unknown History Score 4-6) meclizine 12.5 mg tablet 12.5 mg PO TID PRN Nausea And 04/28/23 05/11/23 Unknown History Vomiting multivitamin 1 tab PO DAILY 04/28/23 05/11/23 04/27/23 History Physical Exam 2 Vital Signs: Vital Signs: Last Vital Signs Temp 98.6 F 05/13/23 08:35 Pulse 98 05/13/23 08:35 Resp 18 05/13/23 08:35 BP 149/80 H 05/13/23 08:35 Pulse Ox 98 05/13/23 08:35 O2 Del Method Room Air 05/13/23 08:35 BMI result Body Mass Index 38.7 Const: General: comfortable and no acute distress O rientation/consciousness: patient oriented x3 Neck: Neck: Yes no lymphadenopathy Chest: Other: Right axilla - large fluctuant mass, measuring about 12 cm in widest dimension, with skin redness Resp: Auscultation: clear to auscultation bilaterally Cardio: Rhythm: regular rhythm GI: Palpation (GI): Soft to palpation, nontender and no guarding Neuro: General: patient oriented x3 Results Labs 05/13/23 10:23 05/13/23 10:23 Labs: Abnormal lab results 05/13/23 Range/Units 10:23 WBC 11.2 H (4.8-10.8) X10*3/uL RBC 3.25 L (4.20-5.50) X10*6/uL Hgb 10.7 L (12.0-16.0) g/dl Hct 31.2 L (37.0-47.0) % Plt Count 465 H D (160-400) X10*3/uL Immature Gran % (Auto) 0.6 H (0.0-0.4) % Neut % (Auto) 85.3 H (45-73) % Lymph % (Auto) 6.0 L (20-40) % Lymph # (Auto) 0.7 L (1.2-4.9) X10*3/uL Abs Immat Gran (auto) 0.07 H (0.00-0.03) X10*3/uL Absolute Neuts (auto) 9.6 H (2.0-8.3) x10*3/uL Sodium 134 L (135-145) mmol/L Potassium 3.2 L (3.3-5.1) mmol/L Anion Gap 11 L (12-20) BUN 4 L (9-16) mg/dL Alkaline Phosphatase 137 H (39-117) U/L Albumin 3.4 L (3.5-5.0) g/dL Short CBC 05/13/23 Range/Units 10:23 WBC 11.2 H (4.8-10.8) X10*3/uL Hgb 10.7 L (12.0-16.0) g/dl Hct 31.2 L (37.0-47.0) % Plt Count 465 H D (160-400) X10*3/uL BMP 05/13/23 10:23 Sodium 134 L Potassium 3.2 L Chloride 101 Carbon Dioxide 25 BUN 4 L Creatinine 0.64 Calcium 8.9 Liver Function 05/13/23 Range/Units 10:23 Total Bilirubin 0.6 (0.0-1.0) mg/dL AST 22 (5-31) U/L ALT 15 (0-31) U/L Alkaline Phosphatase 137 H (39-117) U/L Albumin 3.4 L (3.5-5.0) g/dL All other labs normal. Laboratory Results WBC 11.2 X10*3/uL (4.8-10.8) H 05/13/23 10:23 RBC 3.25 X10*6/uL (4.20-5.50) L 05/13/23 10:23 Hgb 10.7 g/dl (12.0-16.0) L 05/13/23 10:23 Hct 31.2 % (37.0-47.0) L 05/13/23 10:23 MCV 96.0 fL (80.0-98.0) 05/13/23 10:23 MCH 32.9 pg (27.0-33.0) 05/13/23 10:23 MCHC 34.3 g/dl (31.0-35.0) 05/13/23 10:23 RDW 15.7 % (11.0-16.0) 05/13/23 10:23 Plt Count 465 X10*3/uL (160-400) H D 05/13/23 10:23 MPV 9.6 fL (9.4-12.3) 05/13/23 10:23 Immature Gran % (Auto) 0.6 % (0.0-0.4) H 05/13/23 10:23 Neut % (Auto) 85.3 % (45-73) H 05/13/23 10:23 Lymph % (Auto) 6.0 % (20-40) L 05/13/23 10:23 [place] % (Auto) 7.3 % (2-11) 05/13/23 10:23 Eos % (Auto) 0.5 % (0-4) 05/13/23 10:23 Baso % (Auto) 0.3 % (0-2) 05/13/23 10:23 Lymph # (Auto) 0.7 X10*3/uL (1.2-4.9) L 05/13/23 10:23 [place] # (Auto) 0.8 X10*3/uL (0.1-1.2) 05/13/23 10:23 Eos # (Auto) 0.1 X10*3/uL (0.0-0.4) 05/13/23 10:23 Baso # (Auto) 0.0 X10*3/uL (0.0-0.2) 05/13/23 10:23 Abs Immat Gran (auto) 0.07 X10*3/uL (0.00-0.03) H 05/13/23 10:23 Absolute Neuts (auto) 9.6 x10*3/uL (2.0-8.3) H 05/13/23 10:23 Absolute Nucleated RBC 0.000 X10*3/uL (0.0-0.012) 05/13/23 10:23 Nucleated RBC % (auto) 0.0 /100WBC (0.0-0.2) 05/13/23 10:23 Sodium 134 mmol/L (135-145) L 05/13/23 10:23 Potassium 3.2 mmol/L (3.3-5.1) L 05/13/23 10:23 Chloride 101 mmol/L (96-108) 05/13/23 10:23 Carbon Dioxide 25 mmol/L (22-29) 05/13/23 10:23 Anion Gap 11 (12-20) L 05/13/23 10:23 BUN 4 mg/dL (9-16) L 05/13/23 10:23 Creatinine 0.64 mg/dL (0.5-1.4) 05/13/23 10:23 Estim Creat Clear Calc 116.9 05/13/23 10:23 Estimated GFR > 60 05/13/23 10:23 Random Glucose 106 mg/dL (60-115) 05/13/23 10:23 Lactic Acid 1.7 mmol/L (0.5-2.0) 05/13/23 09:58 Calcium 8.9 mg/dL (8.4-10.2) 05/13/23 10:23 Total Bilirubin 0.6 mg/dL (0.0-1.0) 05/13/23 10:23 AST 22 U/L (5-31) 05/13/23 10:23 ALT 15 U/L (0-31) 05/13/23 10:23 Alkaline Phosphatase 137 U/L (39-117) H 05/13/23 10:23 Total Protein 6.5 g/dL (6.5-8.0) 05/13/23 10:23 Albumin 3.4 g/dL (3.5-5.0) L 05/13/23 10:23 Assessment and Plan (1) Abscess of axilla, right: Status: Acute She has a fluctuant mass on the right axilla as described above consistent with an abscess. I explained to her that it would be best to proceed with I&D. I explained the technique under local anesthesia. I reviewed the risks including but not limited to bleeding, further infections, postop pain. She had given consent I&D was done under local anesthesia. Large amounts of pus was drained. Cultures were taken. I applied thick dry dressings. Her culture should be followed. I can do a wound check when she is admitted to the hospital. Procedures Date of Service Date of Service: 05/13/23 Abscess I/D Site: other (axilla, right) Anesthetic used: lidocaine 1% Irrigation: No Packing used?: none Additional comments: The was infiltrated with lidocaine 1%. I made 2 separate incisions because of the large area involved. This was done using a blade 11. Large amounts of pus were evacuated from both sites. Dry dressings were then applied. She tolerated procedure well. There were no immediate complications. Cultures were taken.
--- NOTE | 2023-05-13 11:18 | P.HPHOSP_ITS ---
History of Present Illness Date of Service: 05/13/23 Attending physician on admission: Suzanne Elliott Chief Complaint: Boil under right arm Pt is a 52-year-old female with a PMH significant for?alcohol use disorder, opioid use disorder on Suboxone, mood disorder, and hx of gastric bypass who presents to the ED with?worsening boil and redness under her right arm. Pt sates it began 4-5 days ago as a small pimple that she popped 3-4 times. Area continued to grow and swell and visited a [facility] three days ago where she was prescribed clindamycin 300 mg t.i.d.. Has been adherent to antibiotics but area continued to worsen. Patient also noted a of 102 degrees. Pt also used warm compresses to little effect. Patient presents to the ED today due to worsening symptoms despite being on antibiotics. In ED general surgery was consulted who performed bedside I&D where a large amount of pus was drained and cultures were taken. Pt denies chest pain/pressure, palpitations. No shortness of breath. Denies nausea, vomiting, abdominal pain. Last admitted to the hospital on 04/28-05/05 and treated for acute alcohol withdrawal. Patient denies alcohol since last admission. Denies illicit substance use. Recently quit smoking cigarettes, though has been vaping some. In the ED pt was afebrile with pulse of 98 and slightly hypertensive at 149/80, vitals otherwise WNL. Labs were significant for elevated WBC of 11.2, normocytic anemia of 10.7/31.2, sodium 134, potassium 3.2, alk-phos 137, albumin 3.4. Lactic acid WNL at 1.7. Renal function baseline. Right upper extremity ultrasound pending. Pt was treated with vanc and Zosyn. Pt will be admitted to the hospital for treatment further evaluation of right axilla abscess with cellulitis that failed outpatient therapy. Review of Systems 2 Review of Systems: Right axilla swelling, tenderness, and redness Subjective fever and chills Denies chest pain/pressure, palpitations No shortness of breath Denies nausea, vomiting, abdominal pain PMFSH Medical History Abscess of axilla, right Rash Encounter for monitoring Suboxone maintenance therapy Hypertension Alcohol use disorder, severe, dependence Opioid use disorder Alcohol abuse Family History Father Lung cancer Surgical History (Updated 05/13/23 @ 13:01 by DEJAH Bradley) History of total knee arthroplasty History of gastric surgery Social History Household Members: Spouse Housing: House Do you presently have visiting nurse or other home services: No (Being set up.) Unable to assess alcohol history related to: Unknown Alcohol intake: former Comment: refuses alarms Patient Tobacco Use Status: Former Tobacco user Quit Date: 2022 Tobacco use type: Cigarette Years Smoked: 2 Smoked in Last 30 Days: No Second Hand Smoke Exposure: No Use of substances other than those prescribed or required for medical reasons: No Have you been hit, kicked, punched, or otherwise hurt by someone within the past year? If so, by whom?: No Do you feel safe in your current relationship?: Yes Is there a partner from a previous relationship who is making you feel unsafe now?: No Are you made to feel afraid or neglected: No Advance Directives: No Do you have thoughts of harming others: None Do you have a plan to hurt others: No Plan Recently lost weight without trying: No How much weight loss: Not applicable Eating poorly because of decreased appetite: No Nutrition screen score: 0 Nutrition Risks: No Nutritional Risk Patient : No : No Poor oral hygiene: No service: No Current occupational status: employed Meds Allergies Allergy/AdvReac Type Severity Reaction Status Date / Time No Known Allergies Allergy Verified 05/13/23 08:35 Active Medications: Current Medications Piperacillin Sod/Tazobactam (Sod 3.375 gm/ Sodium Chloride) 50 mls @ 100 mls/hr IV ONCE ONE Stop: 05/13/23 11:19 Home Medications Medication Instructions Recorded Confirmed Last Taken Type gabapentin 300 mg capsule 300 mg PO DAILY 04/28/23 05/13/23 05/13/23 History ibuprofen 600 mg tablet 600 mg PO DAILY PRN Pain (Scale 04/28/23 05/13/23 05/13/23 History Score 4-6) meclizine 12.5 mg tablet 12.5 mg PO TID PRN Nausea And 04/28/23 05/13/23 05/13/23 History Vomiting multivitamin 1 tab PO DAILY 04/28/23 05/13/23 05/13/23 History duloxetine 40 mg capsule,delayed 40 mg PO DAILY 05/13/23 05/13/23 05/13/23 History release modafinil 100 mg tablet 100 mg PO DAILY 05/13/23 05/13/23 05/13/23 History Physical Exam 2 Vital Signs and Narrative: Vital Signs: Last Vital Signs Temp 98.6 F 05/13/23 08:35 Pulse 98 05/13/23 08:35 Resp 18 05/13/23 08:35 BP 149/80 H 05/13/23 08:35 Pulse Ox 98 05/13/23 08:35 O2 Del Method Room Air 05/13/23 08:35 BMI result Body Mass Index 38.7 Constitutional: Alert, in no acute distress. Mental Status: Oriented to person, place and time. Eyes: Pupils are equal, round, and reactive to light. Ear, Nose, and Throat: Oropharynx clear, mucous membranes moist. Ears and nose without deformities. Trachea midline. Respiratory: Clear to auscultation bilaterally. No wheezing, rales, or rhonchi. Cardiovascular: S1, S2 regular. No murmurs, rubs, or gallops. Gastrointestinal: Abdomen soft, non-tender, non-distended. Normal bowel sounds. Neurologic: Cranial nerves II-XII are grossly intact bilaterally. No focal neurological deficits. Moves all extremities spontaneously. Skin: Large area of erythema in right axilla region, mostly covered by clean dressing s/p I&D. Musculoskeletal: No cyanosis or clubbing. Extremities: No edema. Psychiatric: Normal mood and affect. Results Labs 05/13/23 10:23 05/13/23 10:23 Labs: Laboratory Results - last 24 hr 05/13/23 05/13/23 09:58 10:23 MCV 96.0 MCH 32.9 MCHC 34.3 RDW 15.7 Plt Count 465 H D MPV 9.6 Immature Gran % (Auto) 0.6 H Neut % (Auto) 85.3 H Lymph % (Auto) 6.0 L [place] % (Auto) 7.3 Eos % (Auto) 0.5 Baso % (Auto) 0.3 Lymph # (Auto) 0.7 L [place] # (Auto) 0.8 Eos # (Auto) 0.1 Baso # (Auto) 0.0 Abs Immat Gran (auto) 0.07 H Absolute Neuts (auto) 9.6 H Absolute Nucleated RBC 0.000 Nucleated RBC % (auto) 0.0 Anion Gap 11 L Estim Creat Clear Calc 116.9 Estimated GFR > 60 Random Glucose 106 Lactic Acid 1.7 Calcium 8.9 Total Bilirubin 0.6 AST 22 ALT 15 Alkaline Phosphatase 137 H Total Protein 6.5 Albumin 3.4 L Assessment and Plan (1) Abscess of axilla, right: Status: Acute (2) Cellulitis: Status: Acute Plan Pt is a 52-year-old female with a PMH significant for?alcohol use disorder, opioid use disorder on Suboxone, mood disorder, and hx of gastric bypass who presents to the ED with?worsening boil and redness under her right arm. Pt will be admitted to the hospital for treatment further evaluation of right axilla abscess with cellulitis that failed outpatient therapy. Right axilla abscess cellulitis Failed outpatient therapy on clindamycin 300 mg t.i.d. Bedside I&D by General Surgery in the ED Pt does not meet sepsis criteria: HR >90, but no fever, tachypnea, or leukocytosis; lactic acid WNL at 1.7 Will cover with vanc and Zosyn Follow cultures Hyponatremia, mild Sodium 134 at time of presentation Patient with chronic hyponatremia No treatment necessary at this time Follow BMP Alcohol use disorder Pt denies any alcohol use since last admission Continue disulfiram, folic acid, thiamine, multivitamin CIWA for now Opioid use disorder Continue Suboxone Avoid opioid analgesics Mood disorder Continue home meds Full Code Attending:?Dr. Elliott DVT Prophylaxis: Lovenox Pt will require a hospitalization of at least two nights for treatment of?right axilla abscess and cellulitis. Patient required hospitalized care for administration of IV antibiotics since she failed outpatient therapy on p.o. antibiotics. Quality Stroke Does the patient have a stroke diagnosis?: No VTE Prior VTE?: No VTE Risk Level:: Medical - moderate - high VTE Device Contraindication: Treatment Not Indicated VTE Drug Contraindication: N/A - Med Ordered
[2023-05-13] MEDS: Piperacillin Sodium/Tazobactam 3.375 GM in 0.9 % Sodium Chloride 50 ML IV ×3 (11:42→22:29)
--- NOTE | 2023-05-13 11:47 | PHA.MEDREC ---
Pharmacy Consult ? Medication Reconciliation Pharmacy has completed the medication reconciliation. Patient confirmed medications. Also reported getting a 4mg suboxone strip in house
--- NOTE | 2023-05-13 11:51 | MHC.RECOVRN ---
Met with pt in ED4 after pt requesting Suboxone dose. Pt presented to ED with abscess of axilla, subsequently underwent I&D and admitted for IV antibiotics after failing outpatient PO. Earlier this morning ED provider contacted t/w after pt reported taking 1/2 Suboxone dose this morning (6 mg) and requesting other half. At that time, provider ordered 4 mg film. Pt familiar with t/w from previous consults as well as [facility]. Pt sitting in bed, awake, alert, easily engages in conversation. Pt clarified Suboxone--only has 1/2 dose at home, did NOT take it this morning. Pt had split dosing during last admission and at [facility] follow up dose was changed to one 12 mg film daily. Pt agreeable to continue 12 mg daily dosing while here. Hospitalist entered room at this time, discussed Suboxone. Provider to order additional 8 mg for today and begin 12 mg daily tomorrow. Pt denies questions or concerns at this time. T/w available as needed.
--- NOTE | 2023-05-13 12:02 | PC.NURSE ---
pt a&o x4, calm, and cooperative. 22G IV placed to LAC, labs drawn and sent. pt medicated per jun. met with pharmacy, recovery team, and hospitalist. pt aware of plan of care. pt ambulates with cane. awaiting admit orders. call hazel within reach. plan off care ongoing.
[2023-05-13] MEDS: vancomycin/NS 2,000 MG/500 ML PLAST..BAG 250 MG IV (12:29)
--- NOTE | 2023-05-13 12:57 | PHA.PROG ---
Admission Date/Time: May 13, 2023 12:18 Indication: skin Weight in k.2 kg Adjusted body weight in Kg: [place] body weight in Kg: Obesity Dosing Indication % IBW: Serum Creatinine - Last 168 Hours 05/13/23 10:23 Creatinine 0.64 Estimated CrCl and GFR - Last 168 Hours 05/13/23 10:23 Estim Creat Clear Calc 116.9 Estimated GFR > 60 Vancomycin Loading Dose: 2000mg x 1 Current Vancomycin Dosing Regimen: 1000mg Q12H Vancomycin Monitoring using AUC goal of 400 - 600 range with trough as surrogate marker: 466 mg/L Date and Time for next Vancomycin Level to be drawn: 05/14/23 @2100 Pharmacist Comments on Vancomycin Plan: Predicted trough of 13.1 mg/L; obese model being used. Will continue to monitor renal function and adjust accordingly Vancomycin dosing will take advantage of [employer] as a clinical decision support tool that uses Bayesian modeling to calculate individual patient's pharmacokinetic parameters and forecast the patient's drug concentration time course with the target goal AUC 24 range of 400 - 600 mg/L/hr.
[2023-05-13 13:12] VITALS: BP 118/80; PULSE 83; RESP 18; O2SAT 99
[2023-05-13] MEDS: Buprenorphine/Naloxone 8/2 mg FILM 1 FILM SUBLINGUAL (13:27)
[2023-05-13 14:10] VITALS: BMI 38.7
[2023-05-13 14:11] VITALS: BP 138/82; PULSE 85; RESP 18; TEMP 37.1; O2SAT 98
[2023-05-13 15:11] VITALS: BP 120/77; PULSE 79; RESP 18; TEMP 36.7; O2SAT 98
[2023-05-13] MEDS: Bismuth Subsalicylate Liquid 524 MG/30 ML ORAL.SUSP 262 MG PO (17:36)
[2023-05-13] MEDS: guaiFENesin DM 200/20/10 ML 10 ML SYRUP PO (17:39)
[2023-05-13 19:32] VITALS: BP 120/59; PULSE 81; RESP 18; O2SAT 99
[2023-05-13] MEDS: Acetaminophen 325 MG TABLET 650 MG PO (19:44)
[2023-05-13] MEDS: 0.9 % Sodium Chloride Flush 3 ML SYRINGE IVFLUSH (22:30)
[2023-05-13] MEDS: vancomycin HCL 1,000 MG in 0.9 % Sodium Chloride 250 ML 270 MG IV (22:59)
[2023-05-14 03:27] VITALS: BP 120/69; PULSE 69; RESP 18; TEMP 36.9; O2SAT 98
[2023-05-14] MEDS: Piperacillin Sodium/Tazobactam 3.375 GM in 0.9 % Sodium Chloride 50 ML IV ×4 (05:05→22:28)
[2023-05-14] MEDS: Acetaminophen 325 MG TABLET 650 MG PO ×2 (05:05→17:24)
[2023-05-14 08:00] VITALS: BP 125/62; PULSE 68; RESP 18; TEMP 37; O2SAT 98
[2023-05-14] MEDS: modafiniL 100 MG TABLET PO (08:36)
[2023-05-14] MEDS: Folic Acid 1 MG TABLET PO (08:36)
[2023-05-14] MEDS: guaiFENesin DM 200/20/10 ML 10 ML SYRUP PO (08:36)
[2023-05-14] MEDS: Disulfiram 250 MG TABLET PO (08:36)
[2023-05-14] MEDS: Buprenorphine/Naloxone 12/3 mg FILM 1 FILM BUCCAL (08:36)
[2023-05-14] MEDS: Potassium Chloride Packet 20 MEQ PACKET 40 MEQ PO (08:36)
[2023-05-14] MEDS: Gabapentin 300 MG CAPSULE PO (08:36)
[2023-05-14] MEDS: Thiamine HCL 100 MG TABLET PO (08:36)
[2023-05-14] MEDS: Aspirin Enteric Coated 81 MG TABLET.DR PO (08:36)
[2023-05-14] MEDS: Multivitamin TABLET 1 TAB PO (08:36)
[2023-05-14] MEDS: 0.9 % Sodium Chloride Flush 3 ML SYRINGE IVFLUSH ×2 (08:37→17:24)
[2023-05-14] MEDS: DULoxetine HCl 20 MG CAPSULE.DR 40 MG PO (09:11)
--- NOTE | 2023-05-14 09:11 | PM.PNGS ---
Subjective Subjective Date of Service: 05/14/23 Interval history: Right axilla feels much better Minimal pain Physical Exam Vital Signs: Vital Signs: Last Vital Signs Temp 98.6 F 05/14/23 08:00 Pulse 68 05/14/23 08:00 Resp 18 05/14/23 08:00 BP 125/62 05/14/23 08:00 Pulse Ox 98 05/14/23 08:00 O2 Del Method Room Air 05/14/23 08:00 BMI result Body Mass Index 38.7 Const: General: comfortable and no acute distress Chest: Other: Right axilla I&D site with much less induration, cellulitis has almost resolved, I&D sites open with some scanty drainage Resp: Effort & Inspection: normal respiratory effort Cardio: Rate: regular rate Objective Data Active Medications Acetaminophen (Acetaminophen 325 Mg Tablet) 650 mg PO Q6H PRN PRN Reason: Pain, Mild (Pain Scale 1-3) Last Admin: 05/14/23 05:05 Dose: 650 mg Documented By: ELVIA Aspirin (Aspirin Enteric Coated 81 Mg Tablet.) 81 mg PO DAILY [facility] Last Admin: 05/14/23 08:36 Dose: 81 mg Documented By: MANUEL Buprenorphine/Naloxone (Buprenorphine/Naloxone 12/3 Mg Film) 1 film BUCCAL Q24H [facility] Last Admin: 05/14/23 08:36 Dose: 1 film Documented By: MANUEL Disulfiram (Disulfiram 250 Mg Tablet) 250 mg PO DAILY [facility] Last Admin: 05/14/23 08:36 Dose: 250 mg Documented By: MANUEL Docusate Sodium (Docusate Sodium 100 Mg Capsule) 100 mg PO DAILY PRN PRN Reason: Constipation Duloxetine HCl (Duloxetine Hcl 20 Mg Capsule.) 40 mg PO DAILY [facility] Enoxaparin Sodium (Enoxaparin Sodium 40 Mg/0.4 Ml Syringe) 40 mg SUBCUT Q24H [facility] Last Admin: 05/13/23 13:29 Dose: Not Given Documented By: ANUSHKA Non-Admin Reason: Patient Refused Folic Acid (Folic Acid 1 Mg Tablet) 1 mg PO DAILY [facility] Last Admin: 05/14/23 08:36 Dose: 1 mg Documented By: MANUEL Gabapentin (Gabapentin 300 Mg Capsule) 300 mg PO DAILY [facility] Last Admin: 05/14/23 08:36 Dose: 300 mg Documented By: MANUEL Guaifenesin/Dextromethorphan (Guaifenesin Dm 200/20/10 Ml 10 Ml Syrup) 10 ml PO Q4H PRN PRN Reason: Cough Last Admin: 05/14/23 08:36 Dose: 10 ml Documented By: MANUEL Piperacillin Sod/Tazobactam (Sod 3.375 gm/ Sodium Chloride) 50 mls @ 100 mls/hr IV Q6H [facility] Last Infusion: 05/14/23 05:35 Dose: Infused Documented By: ELVIA Vancomycin HCl 1,000 mg/ (Sodium Chloride) 270 mls @ 270 mls/hr IV Q12H [facility] Last Infusion: 05/14/23 00:31 Dose: Infused Documented By: ELVIA Meclizine HCl (Meclizine Hcl 12.5 Mg Tablet) 12.5 mg PO TID PRN PRN Reason: Nausea And Vomiting Melatonin (Melatonin 3 Mg Tablet) 6 mg PO BEDTIME PRN PRN Reason: Insomnia Modafinil (Modafinil 100 Mg Tablet) 100 mg PO DAILY [facility] Last Admin: 05/14/23 08:36 Dose: 100 mg Documented By: MANUEL Multivitamins/Vitamin C (Multivitamin Tablet) 1 tab PO DAILY [facility] Last Admin: 05/14/23 08:36 Dose: 1 tab Documented By: MANUEL Ondansetron HCl (Ondansetron Hcl 4 Mg/2 Ml Vial) 4 mg IVPUSH Q8H PRN PRN Reason: Nausea and Vomiting Pharmacy Consult (Consult Rx Vancomycin Dosing) 1 each MISCELLANE DAILY PRN PRN Reason: Consult order Sodium Chloride (0.9 % Sodium Chloride Flush 3 Ml Syringe) 3 ml IVFLUSH QSHIFT [facility] Last Admin: 05/14/23 08:37 Dose: 3 ml Documented By: MANUEL Thiamine HCl (Thiamine Hcl 100 Mg Tablet) 100 mg PO DAILY [facility] Last Admin: 05/14/23 08:36 Dose: 100 mg Documented By: MANUEL Labs 05/13/23 10:23 05/13/23 10:23 Labs: Laboratory Results - last 24 hr 05/13/23 05/13/23 09:58 10:23 MCV 96.0 MCH 32.9 MCHC 34.3 RDW 15.7 Plt Count 465 H D MPV 9.6 Immature Gran % (Auto) 0.6 H Neut % (Auto) 85.3 H Lymph % (Auto) 6.0 L [place] % (Auto) 7.3 Eos % (Auto) 0.5 Baso % (Auto) 0.3 Lymph # (Auto) 0.7 L [place] # (Auto) 0.8 Eos # (Auto) 0.1 Baso # (Auto) 0.0 Abs Immat Gran (auto) 0.07 H Absolute Neuts (auto) 9.6 H Absolute Nucleated RBC 0.000 Nucleated RBC % (auto) 0.0 Anion Gap 11 L Estim Creat Clear Calc 116.9 Estimated GFR > 60 Random Glucose 106 Lactic Acid 1.7 Calcium 8.9 Total Bilirubin 0.6 AST 22 ALT 15 Alkaline Phosphatase 137 H Total Protein 6.5 Albumin 3.4 L Microbiology Microbiology Results: Microbiology 05/13/23 10:47 Gram Stain - Final Axilla Right Routine Culture - Preliminary Staphylococcus aureus Procedures Date of Service Date of Service: 05/14/23 Progress Note: A&P Assessment and plan (1) Abscess of axilla, right: Status: Acute Assessment and Plan: I&D done yesterday with large amounts of pus evacuated I have changed her dressings Area has improved significantly Follow-up on cultures Antibiotics based on cultures Wound care with daily dressing changes Time Spent With Patient Time: Total time managing care of this patient today ____ minutes. Quality Stroke Does the patient have a stroke diagnosis?: No VTE Prior VTE?: No VTE Risk Level:: Medical - moderate - high VTE Device Contraindication: Treatment Not Indicated VTE Drug Contraindication: N/A - Med Ordered
[2023-05-14 10:26] LABS: Hematocrit 33.6 % (37.0-47.0); Hemoglobin 11.1 g/dl (12.0-16.0); Mean Corpuscular Hemoglobin 32.4 pg (27.0-33.0); Mean Platelet Volume 9.6 fL (9.4-12.3); Platelet Count 606 X10*3/uL (160-400); Red Blood Count 3.43 X10*6/uL (4.20-5.50); Red Cell Distribution Width 15.7 % (11.0-16.0); White Blood Count 8.1 X10*3/uL (4.8-10.8)
[2023-05-14 10:39] LABS: Creatinine Clr Calc Pharmacy 94.7; Estimated Glomerular Filt Rate > 60
[2023-05-14 10:46] LABS: Anion Gap 15 (12-20); Blood Urea Nitrogen 8 mg/dL (9-16); Calcium 9.6 mg/dL (8.4-10.2); Carbon Dioxide 21 mmol/L (22-29); Chloride 106 mmol/L (96-108); Creatinine Clr Calc Pharmacy 95.9; Estimated Glomerular Filt Rate > 60; Glucose Random 116 mg/dL (60-115); Potassium 3.9 mmol/L (3.3-5.1); Sodium 138 mmol/L (135-145)
[2023-05-14] MEDS: Bismuth Subsalicylate Liquid 524 MG/30 ML ORAL.SUSP 262 MG PO (10:53)
--- NOTE | 2023-05-14 11:11 | MHC.CM.PN ---
PT REPORTS SHE LIVES WITH HER AND IS INDEPENDENT WITH CARE SHE HAS A CANE SHE USES PRN AND NO HOME SERVICES HCP ON FILE PCP: BIANCA HERNANDEZ DCP: HOME NO SERVICES VIA PRIVATE TRANSPORT
[2023-05-14] MEDS: vancomycin HCL 1,000 MG in 0.9 % Sodium Chloride 250 ML 270 MG IV ×2 (11:55→23:04)
--- NOTE | 2023-05-14 13:34 | P.PNIM_ITS ---
Subjective Subjective Date of Service: 05/14/23 Interval History: Right axilla abscess cellulitis loose stool episode Review of Systems Patient says that pain and swelling somewhat improving Denies any chest pain or shortness of breath Physical Exam 2 Vital Signs: Vital Signs: Last Vital Signs Temp 98.6 F 05/14/23 08:00 Pulse 68 05/14/23 08:00 Resp 18 05/14/23 08:00 BP 125/62 05/14/23 08:00 Pulse Ox 98 05/14/23 08:00 O2 Del Method Room Air 05/14/23 08:00 BMI result Body Mass Index 38.7 Appearance: Alert.? Oriented X3.? cvs: rrr, [id number]. res: clear to auscultation ,no rhonchii or wheezing abd: no rebound or guarding ,nt, bs present. ext pulses present , no cyanosis . skin-right axillary area abcess s/p drainge ,erythema and swellin seems similar to yesterday neuro: axo3 , nonfocal. Objective Data Active Medications Acetaminophen (Acetaminophen 325 Mg Tablet) 650 mg PO Q6H PRN PRN Reason: Pain, Mild (Pain Scale 1-3) Last Admin: 05/14/23 05:05 Dose: 650 mg Documented By: ELVIA Aspirin (Aspirin Enteric Coated 81 Mg Tablet.) 81 mg PO DAILY [facility] Last Admin: 05/14/23 08:36 Dose: 81 mg Documented By: MANUEL Bismuth Subsalicylate (Bismuth Subsalicylate Liquid 524 Mg/30 Ml Oral.Susp) 262 mg PO QID PRN PRN Reason: Constipation Last Admin: 05/14/23 10:53 Dose: 262 mg Documented By: MANUEL Buprenorphine/Naloxone (Buprenorphine/Naloxone 12/3 Mg Film) 1 film BUCCAL Q24H [facility] Last Admin: 05/14/23 08:36 Dose: 1 film Documented By: MANUEL Disulfiram (Disulfiram 250 Mg Tablet) 250 mg PO DAILY [facility] Last Admin: 05/14/23 08:36 Dose: 250 mg Documented By: MANUEL Docusate Sodium (Docusate Sodium 100 Mg Capsule) 100 mg PO DAILY PRN PRN Reason: Constipation Duloxetine HCl (Duloxetine Hcl 20 Mg Capsule.) 40 mg PO DAILY [facility] Last Admin: 05/14/23 09:11 Dose: 40 mg Documented By: MANUEL Enoxaparin Sodium (Enoxaparin Sodium 40 Mg/0.4 Ml Syringe) 40 mg SUBCUT Q24H [facility] Last Admin: 05/14/23 12:00 Dose: Not Given Documented By: MANUEL Non-Admin Reason: Patient Refused Folic Acid (Folic Acid 1 Mg Tablet) 1 mg PO DAILY [facility] Last Admin: 05/14/23 08:36 Dose: 1 mg Documented By: MANUEL Gabapentin (Gabapentin 300 Mg Capsule) 300 mg PO DAILY [facility] Last Admin: 05/14/23 08:36 Dose: 300 mg Documented By: MANUEL Guaifenesin/Dextromethorphan (Guaifenesin Dm 200/20/10 Ml 10 Ml Syrup) 10 ml PO Q4H PRN PRN Reason: Cough Last Admin: 05/14/23 08:36 Dose: 10 ml Documented By: MANUEL Piperacillin Sod/Tazobactam (Sod 3.375 gm/ Sodium Chloride) 50 mls @ 100 mls/hr IV Q6H [facility] Last Infusion: 05/14/23 10:55 Dose: Infused Documented By: MANUEL Vancomycin HCl 1,000 mg/ (Sodium Chloride) 270 mls @ 270 mls/hr IV Q12H [facility] Last Infusion: 05/14/23 12:48 Dose: 0 mls/hr Documented By: MANUEL Meclizine HCl (Meclizine Hcl 12.5 Mg Tablet) 12.5 mg PO TID PRN PRN Reason: Nausea And Vomiting Melatonin (Melatonin 3 Mg Tablet) 6 mg PO BEDTIME PRN PRN Reason: Insomnia Modafinil (Modafinil 100 Mg Tablet) 100 mg PO DAILY [facility] Last Admin: 05/14/23 08:36 Dose: 100 mg Documented By: MANUEL Multivitamins/Vitamin C (Multivitamin Tablet) 1 tab PO DAILY [facility] Last Admin: 05/14/23 08:36 Dose: 1 tab Documented By: MANUEL Ondansetron HCl (Ondansetron Hcl 4 Mg/2 Ml Vial) 4 mg IVPUSH Q8H PRN PRN Reason: Nausea and Vomiting Pharmacy Consult (Consult Rx Vancomycin Dosing) 1 each MISCELLANE DAILY PRN PRN Reason: Consult order Sodium Chloride (0.9 % Sodium Chloride Flush 3 Ml Syringe) 3 ml IVFLUSH QSHIFT [facility] Last Admin: 05/14/23 08:37 Dose: 3 ml Documented By: MANUEL Thiamine HCl (Thiamine Hcl 100 Mg Tablet) 100 mg PO DAILY [facility] Last Admin: 05/14/23 08:36 Dose: 100 mg Documented By: MANUEL Labs 05/14/23 09:52 05/14/23 09:52 Labs: Laboratory Results - last 24 hr 05/14/23 05/14/23 05/14/23 09:52 09:52 09:52 MCV 98.0 MCH 32.4 MCHC 33.0 RDW 15.7 Plt Count 606 H D MPV 9.6 Absolute Nucleated RBC 0.000 Nucleated RBC % (auto) 0.0 Anion Gap 15 Estim Creat Clear Calc 95.9 94.7 Estimated GFR > 60 > 60 Random Glucose 116 H Calcium 9.6 D Microbiology Microbiology Results: Microbiology 05/13/23 10:23 Blood Culture - Preliminary Blood - Venous No growth after 24 hours. 05/13/23 09:58 Blood Culture - Preliminary Blood - Venous No growth after 24 hours. 05/13/23 10:47 Gram Stain - Final Axilla Right Routine Culture - Preliminary Staphylococcus aureus Assessment and Plan (1) Abscess of axilla, right: Status: Acute (2) Hyponatremia: Status: Acute Assessment and Plan: 52-year-old female with a PMH significant for?alcohol use disorder, opioid use disorder on Suboxone, mood disorder, and hx of gastric bypass who presents to the ED with?worsening boil and redness under her right arm. Pt will be admitted to the hospital for treatment further evaluation of right axilla abscess with cellulitis that failed outpatient therapy. Right axilla abscess cellulitis Failed outpatient therapy on clindamycin 300 mg t.i.d. Bedside I&D by General Surgery in the ED Pt does not meet sepsis criteria: HR >90, but no fever, tachypnea, or leukocytosis; lactic acid WNL at 1.7 wound cultures grew staph aureus -senstivities pending,blood cultures neg@24hrs continue vanco and Zosyn,vanco trough monitering ,Follow cultures Hyponatremia, mild Sodium 134 at time of presentation Patient with chronic hyponatremia No treatment necessary at this time Follow BMP Alcohol use disorder Pt denies any alcohol use since last admission Continue disulfiram, folic acid, thiamine, multivitamin CIWA for now Opioid use disorder Continue Suboxone Avoid opioid analgesics Mood disorder Continue home meds DVT Prophylaxis: Lovenox ongoing hospitalization need for treatment of?right axilla abscess and cellulitis-need IV antibiotics since she failed outpatient therapy on p.o. antibiotics. Quality Stroke Does the patient have a stroke diagnosis?: No VTE Prior VTE?: No VTE Risk Level:: Medical - moderate - high VTE Device Contraindication: Treatment Not Indicated VTE Drug Contraindication: N/A - Med Ordered
[2023-05-14 15:01] VITALS: BP 116/75; PULSE 73; RESP 18; TEMP 36.3; O2SAT 98
[2023-05-14 19:19] VITALS: BP 106/59; PULSE 66; RESP 18; TEMP 36.9; O2SAT 98
[2023-05-14 21:24] LABS: Vancomycin Trough 12.3 mcg/mL (10.0-20.0)
--- NOTE | 2023-05-14 21:54 | HE.PHANOTE ---
RE: VANCO PATIENTS LEVEL CAME BACK THIS EVENING AT 12.3. RENAL FUNCTION UNSTABLE. WILL GET LEVEL AFTER 2 MORE DOSES OF 1000 MG Q12H. PREDICTED AUC 493. NEXT LEVEL DUE 05/15/23 @12.3
[2023-05-15] MEDS: 0.9 % Sodium Chloride Flush 3 ML SYRINGE IVFLUSH ×2 (00:17→08:39)
[2023-05-15] MEDS: Acetaminophen 325 MG TABLET 650 MG PO ×2 (02:17→08:41)
[2023-05-15 04:00] VITALS: BP 113/65; PULSE 61; RESP 18; TEMP 36.7; O2SAT 96
[2023-05-15] MEDS: Piperacillin Sodium/Tazobactam 3.375 GM in 0.9 % Sodium Chloride 50 ML IV ×2 (04:35→10:28)
[2023-05-15] MEDS: guaiFENesin DM 200/20/10 ML 10 ML SYRUP PO ×2 (06:23→12:08)
[2023-05-15 06:57] LABS: Creatinine Clr Calc Pharmacy 116.9; Estimated Glomerular Filt Rate > 60
[2023-05-15 08:00] VITALS: BP 122/71; PULSE 63; RESP 18; TEMP 36.3; O2SAT 98
[2023-05-15] MEDS: modafiniL 100 MG TABLET PO (08:41)
[2023-05-15] MEDS: Aspirin Enteric Coated 81 MG TABLET.DR PO (08:41)
[2023-05-15] MEDS: DULoxetine HCl 20 MG CAPSULE.DR 40 MG PO (08:42)
[2023-05-15] MEDS: Folic Acid 1 MG TABLET PO (08:42)
[2023-05-15] MEDS: Disulfiram 250 MG TABLET PO (08:42)
[2023-05-15] MEDS: Multivitamin TABLET 1 TAB PO (08:42)
[2023-05-15] MEDS: Thiamine HCL 100 MG TABLET PO (08:42)
[2023-05-15] MEDS: Gabapentin 300 MG CAPSULE PO (08:42)
[2023-05-15] MEDS: Buprenorphine/Naloxone 12/3 mg FILM 1 FILM BUCCAL (08:42)
[2023-05-15] MEDS: vancomycin HCL 1,000 MG in 0.9 % Sodium Chloride 250 ML 270 MG IV (10:58)
--- NOTE | 2023-05-15 12:32 | MHC.CM.PN ---
per rounds pt may be dcd today plan home no servies
--- NOTE | 2023-05-15 13:33 | PM.EVENT ---
Event Note Date of Service: 05/15/23 Event Note: I&D site on the right axilla examined Much less induration Still a little bit of drainage Dressings changed Culture showing MRSA IV antibiotics Daily wound care with dry dressings Time Spent With Patient Time: Total time managing care of this patient today ____ minutes.
--- NOTE | 2023-05-15 14:02 | PM.DS ---
DS: Providers Provider Date of Service: 05/15/23 Date of admission: 05/13/23 12:18 Date of discharge: 05/15/23 Primary care physician: Baljeet Perry MD Consults: 05/13/23 12:38 Consult to General Surgery Routine Consulting Provider: [facility] General Surgeons Reason for consultation: Right axilla abscess with cellulitis Has provider been notified: Yes 05/15/23 09:08 Consult to Infectious Diseases Routine Consulting Provider: [facility] Infectious Disease Reason for consultation: Cellulitis possible mrsa related Has provider been notified: No 05/15/23 13:59 Consult to Wound Care Routine Reason for consultation: right armpit abcess Has provider been notified: No Attending physician on discharge: Suzanne Elliott Discharging clinician: Suzanne Elliott DS: Diagnosis Discharge Diagnosis (1) Abscess of axilla, right: Status: Acute (2) Hyponatremia: Status: Acute DS: Summary Hospital Course Hospital Course: 52-year-old female with a PMH significant for?alcohol use disorder, opioid use disorder on Suboxone, mood disorder, and hx of gastric bypass who presents to the ED with?worsening boil and redness under her right arm. Pt sates it began 4-5 days ago as a small pimple that she popped 3-4 times. Area continued to grow and swell and visited a [facility] three days ago where she was prescribed clindamycin 300 mg t.i.d.. Has been adherent to antibiotics but area continued to worsen. Patient also noted a of 102 degrees. Pt also used warm compresses to little effect. Patient presents to the ED today due to worsening symptoms despite being on antibiotics. In ED general surgery was consulted who performed bedside I&D where a large amount of pus was drained and cultures were taken. Pt denies chest pain/pressure, palpitations. No shortness of breath. Denies nausea, vomiting, abdominal pain. Last admitted to the hospital on 04/28-05/05 and treated for acute alcohol withdrawal. Patient denies alcohol since last admission. Denies illicit substance use. Recently quit smoking cigarettes, though has been vaping some. In the ED pt was afebrile with pulse of 98 and slightly hypertensive at 149/80, vitals otherwise WNL. Labs were significant for elevated WBC of 11.2, normocytic anemia of 10.7/31.2, sodium 134, potassium 3.2, alk-phos 137, albumin 3.4. Lactic acid WNL at 1.7. Renal function baseline. Right upper extremity ultrasound pending. Pt was treated with vanc and Zosyn. Pt will be admitted to the hospital for treatment further evaluation of right axilla abscess with cellulitis that failed outpatient therapy. Hospital course: Patient came to the hospital because of right arm pit pain: Has erythema and found to have abscess-status post I and D with removal of copious amount of pus, started on IV antibiotic broad-spectrum,, blood cultures sent. Patient seems to be improved significantly. Blood culture negative at 48 hour, wound culture grew MRSA sensitive to tetracycline: Seen by infectious disease recommended to switch to p.o. doxycycline 100 mg b.i.d. for 2 weeks. Also follow-up outpatient with PCP and wound care with dressing changes. plan: complete po doxycycline 100 mg b.i.d. for 2 weeks. folliw with wound care with dressing changes. Above management discussed with the patient in detail length she understand and in agreement with the above plan, time spent 50 minute. Time Attestation Discharge coordination time: Greater than 30 minutes Quality: Safe Use of Opioids Does Pt have an Active Cancer Diagnosis on the Problem List?: No Quality: Stroke Does the patient have a stroke diagnosis?: No Physical Exam Vital Signs: Vital Signs: Last Vital Signs Temp 97.4 F 05/15/23 08:00 Pulse 63 05/15/23 08:00 Resp 18 05/15/23 08:00 BP 122/71 05/15/23 08:00 Pulse Ox 98 05/15/23 08:00 O2 Del Method Room Air 05/15/23 08:00 BMI result Body Mass Index 38.7 Appearance: Alert.? Oriented X3.? ? cvs: rrr, [id number] , no murmur res: clear to auscultation ,no rhonchii or wheezing abd: no rebound or guarding ,nt, bs present. ext pulses present , no cyanosis . neuro: axo3 , nonfocal. DS: Data Data Completed and Pending Completed studies during hospitalization [Text1]: Procedures Detoxification Services for Substance Abuse Treatment (04/28/23) Labs on day of discharge: Laboratory Results - last 24 hr 05/14/23 05/15/23 20:51 06:06 Hold Purple Top SEE NOTE Creatinine 0.64 Estim Creat Clear Calc 116.9 Estimated GFR > 60 Vancomycin Trough 12.3 Preliminary micro results at discharge 05/13/23 10:23 Blood Culture - Preliminary Blood - Venous No growth after 48 hours. 05/13/23 09:58 Blood Culture - Preliminary Blood - Venous No growth after 48 hours. Discharge Plan Discharge Anticipated Discharge Date/Time: 05/15/23 13:52 Patient Disposition: Home, Self-Care Discharge Diagnosis: arm abscess s/p I&D Referrals: Baljeet Champagne MD [Primary Care Provider] - 1 Week Discharge Medications: New doxycycline hyclate 100 mg capsule 100 mg PO BID Qty: 27 0RF Continued buprenorphine-naloxone [Suboxone] 12-3 mg film 1 film buccal Q24H Qty: 10 0RF multivitamin Tablet 1 tab PO DAILY meclizine 12.5 mg Tablet 12.5 mg PO TID PRN (Reason: Nausea And Vomiting) gabapentin 300 mg capsule 300 mg PO DAILY ibuprofen 600 mg tablet 600 mg PO DAILY PRN (Reason: Pain (Scale Score 4-6)) disulfiram 250 mg tablet 250 mg PO DAILY Qty: 30 0RF aspirin 81 mg Tablet,Delayed Release (Dr/Ec) 81 mg PO DAILY Qty: 30 0RF thiamine mononitrate (vit B1) 100 mg Tablet 100 mg PO DAILY Qty: 30 0RF folic acid 1 mg tablet 1 mg PO DAILY Qty: 30 0RF modafinil 100 mg tablet 100 mg PO DAILY duloxetine 40 mg capsule,delayed release(DR/EC) 40 mg PO DAILY Discontinued clindamycin HCl 300 mg capsule 300 mg PO TID Qty: 21 0RF Discharge Orders: Discharge Order (Routine); Ordered 05/15/23 Ordered By: Suzanne Elliott Diet: Advance to usual diet Activity on Discharge: As tolerated Stand Alone Forms: Patient Portal Discharge page Care Plan Goals: Patient came to the hospital because of right arm pit pain: Has erythema and found to have abscess-status post I and D with removal of copious amount of pus, started on IV antibiotic broad-spectrum,, blood cultures sent. Patient seems to be improved significantly. Blood culture negative at 48 hour, wound culture grew MRSA sensitive to tetracycline: Seen by infectious disease recommended to switch to p.o. doxycycline 100 mg b.i.d. for 2 weeks. Also follow-up outpatient with PCP and wound care with dressing changes. Health Concerns: As above. Plan of Treatment: As above. Assessment: As above.
[2023-05-15] MEDS: Doxycycline Monohydrate 100 MG CAPSULE PO (14:14)
--- NOTE | 2023-05-15 14:37 | MHC.CM.PN ---
pt will be dcd today to [facility]
--- NOTE | 2023-05-15 14:38 | MHC.CM.PN ---
pt dcd home no skilled servies ordered by
--- NOTE | 2023-05-15 15:43 | HO.WOUND ---
Wound Consult: Initial 52yr old?F admitted to [facility] on 05/13/23 - See progress notes and H&P for detailed history.? Wound consult placed for Right Axilla Abscess s/p I&D.? Patient agreeable to assessment and photo documentation.? Pt set for d/c to home request from provider to see patient prior to d/c with topical recommendations in place. Of side note the patient was seen and assessed last admission for facial wounds - they are nearly resolved with a small area between the two eyebrows with scabbed resolving area. Right Axilla dressing removed - old adhesive noted to the periwound. two small Incision sites noted - superior site is approximately 0.5cm x 0.8cm x 0.6cm inferior opening pin point in size. There is firm induration noted around the wound openings - per patient statement and chart review (Dr. Plascencia note) this is improving. There is no warmth and no odor noted. The drainage is noted to be sero sang with palpation and peterson creamy on dressing. Patient instructed to not pick at site and to not attempt to express material on her own. She was instructed to shower daily with Ph balanced soap and rinse and dry well. 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 She was able to walk me through a dressing change and did so appropriately. Some supplies provided to patient for initial home use. Recommendations: Right Axilla - Cleanse and irrigate with NS, pat dry. Apply skin prep to the periwound allow to dry. Lightly pack superior site with Packing strip, be sure to leave a wick for complete removal. Use only one piece do not use more than one. Cover with dry gauze, and secure with skin safe tape. Foam dressing applied while inpatient. Change Daily. Re-consult wound care Nurse for wound deterioration or wound changes.
--- NOTE | 2023-05-18 15:02 | P.CDIM_ITS ---
PROVIDER RESPONSE TEXT: To clarify, the appropriate diagnosis supported by the clinical indicators: subcutaneous tissue and fat QUERY TEXT: PHYSICIAN'S DOCUMENTATION REQUEST Date of Query: 05/18/2023 02:06 PM EST Patient Name: Beverley Mims Admit Date: 05/13/2023 Dear Adarsh Plascencia, A review of the medical record indicates additional documentation may be needed. Please review below and update the documentation accordingly. Clinical Indicators: Per General Surgery Consultation 05/13/23: Abscess I/D Site: other (axilla, right) Anesthetic used: lidocaine 1% Irrigation: No Packing used?: none Additional comments: The was infiltrated with lidocaine 1%. I made 2 separate incisions because of the large area involved . This was done using a blade 11. Large amounts of pus were evacuated from both sites. Based on the above, could you clarify the depth of the I&D skin subcutaneous tissue and fat muscle tendon bone Other (explain) Clinically unable to determine (explain) Thank you, Rosalba Barrios RN Use of terms such as suspected, likely, concern for, or probable (associated with a specific diagnosi s that is being evaluated, monitored, or treated as if it exists) are acceptable and can be coded in the inpatient se tting, when documented at the time of discharge. Please use your independent medical judgment in providing your response. THIS QUERY IS PART OF THE PERMANENT MEDICAL RECORD
== END 2023-05-15 15:53 | disposition home or self-care (01) | DRG 364 ==
LOC: HO.ED 11:59 → HO.EDOVER 12:40 → HO.S3 13:06
PROVIDERS: Physician Assistant; Admitting Provider Student in an Organized Health Care Education/Training Program; Emergency Provider Emergency Medicine; PCP Internal Medicine; Visit Provider Internal Medicine
DX: L02.411 Cutaneous abscess of right axilla (principal); E87.1 Hypo-osmolality and hyponatremia; B95.62 Methicillin resistant Staphylococcus aureus infection as the cause of diseases classified elsewhere; L03.111 Cellulitis of right axilla; F11.20 Opioid dependence, uncomplicated; F10.20 Alcohol dependence, uncomplicated; Z98.84 Bariatric surgery status; Z87.891 Personal history of nicotine dependence; Z79.82 Long term (current) use of aspirin; Z79.899 Other long term (current) drug therapy
CPT/HCPCS: 36415; 76882; 80048; 80053; 80202; 82565; 83605; 85025; 85027; 87040; 87070; 87077; 87186; 87205; 99285; 99499; J1650; J2543; J3370

== ENCOUNTER → 2023-05-13 09:27 | Outpatient (BNV) | payer BC, SELFPAY | PROVIDERS: Emergency Provider Emergency Medicine; PCP Internal Medicine; Visit Provider Surgery | DX: L02.411 Cutaneous abscess of right axilla (principal) | CPT/HCPCS: 10060; 99024; 99222; 99232; 99254 ==

== ENCOUNTER → 2023-05-13 12:18 | Outpatient (BNV) | payer BC, MEDICAID, SELFPAY | PROVIDERS: Admitting Provider Student in an Organized Health Care Education/Training Program; Emergency Provider Emergency Medicine; PCP Internal Medicine; Visit Provider Student in an Organized Health Care Education/Training Program | DX: L02.411 Cutaneous abscess of right axilla (principal); E87.1 Hypo-osmolality and hyponatremia; L03.111 Cellulitis of right axilla | CPT/HCPCS: 99223; 99232; 99239 ==

== ENCOUNTER 2023-05-22 13:01 | Outpatient (AMB) | payer BC, MEDICAID, SELFPAY ==
--- NOTE | 2023-05-22 13:03 | A.OFFVISCC_ITS ---
Intake Vital Signs 05/22/23 13:10 Height 5 ft 3 in Weight 201 lb BMI 35.6 BP 140/92 H Blood Pressure Location Lt radial Position Sitting Pulse 102 H Pulse Source Pulse Oximeter Pulse Oximetry (%) 99 Oxygen Delivery Method Room Air Intake Visit Reasons: MAT Visit Intake Note: the patient presents for a mat visit Orthopedic Podiatrist Required: No Allergies No Known Allergies Allergy (Verified 05/22/23 13:12) Do you need a note to return to daycare/school/sports/work: No HPI MAT Visit HPI Details Patient presents for PAULINE treatment follow up Reports she has not had any alcohol since April 28 Continues to tolerate Antabuse Wants to transition to Sublocade because she has been taking increased amts of Suboxone [facility] Medical History Abscess of axilla, right Rash Encounter for monitoring Suboxone maintenance therapy Hypertension Alcohol use disorder, severe, dependence Opioid use disorder Alcohol abuse Surgical History (Updated 05/19/23 @ 00:02 by Penny Ortega) History of total knee arthroplasty History of gastric surgery Family History Father Lung cancer Social History Household Members: Spouse Housing: House Do you presently have visiting nurse or other home services: No (Being set up.) Unable to assess alcohol history related to: Unknown Alcohol intake: former Comment: refuses fall risk alarms Patient Tobacco Use Status: Former Tobacco user Quit Date: 2022 Tobacco use type: Cigarette Years Smoked: 2 Second Hand Smoke Exposure: No service: No Current occupational status: employed Review of Systems [employer] Reports as per HPI Psych Reports anxiety and Reports mood swings Physical Exam Vital Signs: Last Vital Signs Pulse 102 H 05/22/23 13:10 BP 140/92 H 05/22/23 13:10 Pulse Ox 99 05/22/23 13:10 Oxygen Delivery Method Room Air 05/22/23 13:10 BMI result Body Mass Index 35.6 Const General: cooperative, healthy appearing and anxious Nutritional Appearance: average body habitus Orientation/consciousness: patient oriented x3 Limitations: no limitations Neuro General: patient oriented x3 Results AMB 14 Panel Urine Drug Screen Urine Marijuana (THC) Negative Last Edit by Miriam Ervin CMA on 05/22/23 13:54 Urine Cocaine Negative Last Edit by Miriam Ervin CMA on 05/22/23 13:54 Urine Morphine Negative Last Edit by Miriam Ervin CMA on 05/22/23 13:54 Urine Methamphetamine Negative Last Edit by Miriam Ervin CMA on 05/22/23 13:54 Urine Amphetamine Negative Last Edit by Miriam Ervin CMA on 05/22/23 13:5 4 Urine Benzodiazepine Negative Last Edit by Miriam Ervin CMA on 05/22/23 13:54 Urine Barbiturates Negative Last Edit by Miriam Ervin CMA on 05/22/23 13: 54 Urine Methadone Negative Last Edit by Miriam Ervin CMA on 05/22/23 13:54 Urine Buprenorphine Negative Last Edit by Miriam Ervin CMA on 05/22/23 13 :54 Urine Tricyclic Antidepressant Negative Last Edit by Miriam Ervin CMA on 05/22/23 13:54 Urine MDMA Negative Last Edit by Miriam Ervin CMA on 05/22/23 13:54 Urine Oxycodone Negative Last Edit by Miriam Ervin CMA on 05/22/23 13:54 Urine Phencyclidine Negative Last Edit by Miriam Ervin CMA on 05/22/23 13 :54 Urine Propoxyphene Negative Last Edit by Miriam Ervin CMA on 05/22/23 13: 54 Results Reviewed Results Reviewed: Laboratory Last Values POC Urine Buprenorphine Negative 05/22/23 13:53 POC Urine Morphine Negative 05/22/23 13:53 POC Urine Oxycodone Negative 05/22/23 13:53 POC Urine Methadone Negative 05/22/23 13:53 POC Urine Propoxyphene Negative 05/22/23 13:53 POC Urine Barbiturates Negative 05/22/23 13:53 POC U Tricyclic Antidpr Negative 05/22/23 13:53 POC Urine PCP Negative 05/22/23 13:53 POC Ur Amphetamines Negative 05/22/23 13:53 POC Ur Methamphetamine Negative 05/22/23 13:53 POC Urine MDMA Negative 05/22/23 13:53 POC Ur Benzodiazepine Negative 05/22/23 13:53 POC Urine Cocaine Negative 05/22/23 13:53 POC Ur Marijuana (THC) Negative 05/22/23 13:53 Assessment & Plan Assessment & Plan (1) Opioid use disorder: Code(s): F11.90 - Opioid use, unspecified, uncomplicated Plan: * continue suboxone at current dose * sublocade ordered (2) Alcohol use disorder, severe, dependence: Code(s): F10.20 - Alcohol dependence, uncomplicated Plan: * continue disulfiram * relapse prevention discussion Orders: Orders Buprenorphine 05/22/23 F11.90 - Opioid use, unspecified, uncomplicated AMB 14 Panel Urine Drug Screen 05/22/23 Z51.81 - Encounter for therapeutic drug level monitoring Medications: New buprenorphine-naloxone 8-2 mg (Suboxone) 1 film buccal BID 15 ea 0RF buprenorphine ER (Sublocade) 300 mg (1.5 mL) subcut .every 28 days 1.5 mL 2RF Discontinued buprenorphine-naloxone 12-3 mg (Suboxone) Discontinued Reason: Doctor's Order 1 film buccal Q24H 10 ea 0RF Coding Level of Care Code Est Pt Level 4 (57596) Diagnoses Opioid use disorder F11.90 Alcohol use disorder, severe, dependence F10.20
[2023-05-22 13:10] VITALS: BP 140/92; PULSE 102; O2SAT 99; BMI 35.6
== END 2023-05-22 13:40 | disposition home or self-care (01) ==
PROVIDERS: PCP Internal Medicine; Visit Provider Nurse Practitioner Psychiatric/Mental Health
DX: F11.90 Opioid use, unspecified, uncomplicated (principal); F10.20 Alcohol dependence, uncomplicated
CPT/HCPCS: 99214

== ENCOUNTER 2023-05-22 13:01 | Outpatient (REF) | payer BC, MEDICAID, SELFPAY ==
[2023-05-26 08:09] LABS: Buprenorphine 93 (H)
== END 2023-05-22 13:02 | disposition home or self-care (01) ==
LOC: HO.LAB 13:01
PROVIDERS: PCP Internal Medicine; Visit Provider Nurse Practitioner Psychiatric/Mental Health
DX: F11.20 Opioid dependence, uncomplicated (principal); F10.20 Alcohol dependence, uncomplicated
CPT/HCPCS: 80305; 80348; 80362

== ENCOUNTER 2023-05-29 13:12 | Outpatient (AMB) | payer BC, MEDICAID, SELFPAY ==
--- NOTE | 2023-05-29 13:12 | A.OFFVISCC_ITS ---
Intake Intake Visit Reasons: MAT Visit Allergies No Known Allergies Allergy (Verified 05/22/23 13:12) HPI MAT Visit HPI Details Patient presents for follow up via telehealth Reports a positive week --talking more to her daughter Cooking a lot, cleaning, keeping herself busy Would like to increase Disulfiram to 500mg daily Awaiting sublocade Still abstaining from alcohol PFSH Medical History Abscess of axilla, right Rash Encounter for monitoring Suboxone maintenance therapy Hypertension Alcohol use disorder, severe, dependence Opioid use disorder Alcohol abuse Surgical History (Updated 05/19/23 @ 00:02 by Penny Ortega) History of total knee arthroplasty History of gastric surgery Family History Father Lung cancer Social History Household Members: Spouse Housing: House Do you presently have visiting nurse or other home services: No (Being set up.) Unable to assess alcohol history related to: Unknown Alcohol intake: former Comment: refuses fall risk alarms Patient Tobacco Use Status: Former Tobacco user Quit Date: 2022 Tobacco use type: Cigarette Years Smoked: 2 Second Hand Smoke Exposure: No service: No Current occupational status: employed Review of Systems [employer] Reports as per HPI Assessment & Plan Assessment & Plan (1) Opioid use disorder: Code(s): F11.90 - Opioid use, unspecified, uncomplicated Plan: * continue suboxone at current dose * awaiting sublocade * follow up in office one week (2) Alcohol use disorder, severe, dependence: Code(s): F10.20 - Alcohol dependence, uncomplicated Plan: * continue disulfiram --increased dose to 500mg * relapse prevention discussion Medications: New disulfiram 500 mg PO DAILY 30 tabs 3RF Refilled buprenorphine-naloxone 8-2 mg (Suboxone) 1 film buccal BID 15 ea 0RF folic acid 1 mg PO DAILY 30 tabs 3RF thiamine mononitrate (vit B1) 100 mg PO DAILY 30 tabs 3RF Discontinued disulfiram Discontinued Reason: Patient no longer taking 250 mg PO DAILY 30 tabs 0RF Telehealth Telehealth Location of provider rendering services: practice address Location of patient: address on file Patient Identification confirmed using: Name, : Yes Telehealth method: voice only Patient verbally consented to treatment: Yes Patient verbally consented to billing insurance company: Yes Coding Level of Care Code Tele New Pt Level 4 (61000) Diagnoses Opioid use disorder F11.90 Alcohol use disorder, severe, dependence F10.20 Time Spent (min) 30 Comment 20 mins with patient remainder on chart review and documentation
== END 2023-05-29 13:33 | disposition home or self-care (01) ==
PROVIDERS: PCP Internal Medicine; Visit Provider Nurse Practitioner Psychiatric/Mental Health
DX: F11.20 Opioid dependence, uncomplicated (principal); F10.20 Alcohol dependence, uncomplicated
CPT/HCPCS: 99442

== ENCOUNTER → 2023-05-29 13:12 | Outpatient (BNVA) | payer BC, MEDICAID, SELFPAY | PROVIDERS: PCP Internal Medicine; Visit Provider Nurse Practitioner Psychiatric/Mental Health ==

== ENCOUNTER 2023-06-05 10:28 | Outpatient (AMB) | payer BC, MEDICAID, SELFPAY ==
--- NOTE | 2023-06-05 10:28 | MHC.AM.SUB ---
Intake Vital Signs 06/05/23 10:33 BP 100/60 Blood Pressure Location Rt radial Position Sitting Pulse 113 H Pulse Source Pulse Oximeter Pulse Oximetry (%) 96 Oxygen Delivery Method Room Air Intake Visit Reasons: MAT Visit Allergies No Known Allergies Allergy (Verified 05/22/23 13:12) HPI MAT Visit HPI Details Patient presents for AUD and PAULINE treatment missed (planned) dose of antabuse last week --has not taken it since Has been drinking seltzers--last drink this morning (8am)--patient not impaired in any way. Speech clear, affect appropriate (for her) Drank 4 drinks from 8pm-8am Discussed plan moving forward--patient forthcoming that she plans on drinking this weekend Tearful, frustrated with herself. Discussed risk reduction strategies, including eating, avoiding hard liquor, etc. Patient also to receive 1st sublocade injection today. Education provided by this curriculum writer and reinforced by RN. [facility] Medical History Abscess of axilla, right Rash Encounter for monitoring Suboxone maintenance therapy Hypertension Alcohol use disorder, severe, dependence Opioid use disorder Alcohol abuse Surgical History (Updated 05/19/23 @ 00:02 by Penny Ortega) History of total knee arthroplasty History of gastric surgery Family History Father Lung cancer Social History Household Members: Spouse Housing: House Do you presently have visiting nurse or other home services: No (Being set up.) Unable to assess alcohol history related to: Unknown Alcohol intake: former Comment: refuses fall risk alarms Patient Tobacco Use Status: Former Tobacco user Quit Date: 2022 Tobacco use type: Cigarette Years Smoked: 2 Second Hand Smoke Exposure: No service: No Current occupational status: employed Review of Systems Const Reports as per HPI and Reports no additional complaints Physical Exam Vital Signs: Last Vital Signs Pulse 113 H 06/05/23 10:33 BP 100/60 06/05/23 10:33 Pulse Ox 96 06/05/23 10:33 Oxygen Delivery Method Room Air 06/05/23 10:33 Const General: cooperative, healthy appearing and no acute distress Nutritional Appearance: average body habitus Orientation/consciousness: patient oriented x3 Limitations: no limitations Neuro General: patient oriented x3 Psych Appearance: well kempt Speech and movement: Clear speech present Affect: Labile affect present (wnl for patient ) Attitude: cooperative Thought process: Circumstantial thought process present and Tangential thought process present Thought content: Normal thought content present Insight: Fair insight present (Psych) Judgement: Fair judgement present (Psych) Office Meds Sublocade 300 mg/1.5 mL solution,extended release subcutaneous syringe Performing Provider: Yazmin Mckinnon CNP Performing Location: [facility] Administered by: Tammi Robison on 06/05/23 11:41 Dose Route Admin Location Dispensed Lot Number Expiration Date [facility] [employer] 300 mg subcut LLQ 1.5 mL [id number] 05/08/24 [address]-7 [employer]. Comments: Pt tolerated injection well. Educated regarding medication. Educated on signs/symptoms of infection. Pt verbalizes understanding, denies questions or concerns for t/w. Encouraged to call [facility] if questions or concerns arise. Assessment & Plan Assessment & Plan (1) Opioid use disorder: Code(s): F11.90 - Opioid use, unspecified, uncomplicated Plan: tolerated sublocade injection encouraged to call office with any questions or concerns (2) Alcohol use disorder, severe, dependence: Code(s): F10.20 - Alcohol dependence, uncomplicated Plan: risk reduction discussion reminded to wait at least a full 24 hours from last drink before deciding to take disulfiram follow up 2 weeks Orders: Orders AMB Buprenorphine Injection - Patient Supplied Today F11.90 - Opioid use, unspecified, uncomplicated Coding Level of Care Code Est Pt Level 4 (55204) Diagnoses Opioid use disorder F11.90 Alcohol use disorder, severe, dependence F10.20
[2023-06-05 10:33] VITALS: BP 100/60; PULSE 113; O2SAT 96
== END 2023-06-05 11:40 | disposition home or self-care (01) ==
PROVIDERS: PCP Internal Medicine; Visit Provider Nurse Practitioner Psychiatric/Mental Health
DX: F11.90 Opioid use, unspecified, uncomplicated (principal); F10.20 Alcohol dependence, uncomplicated
CPT/HCPCS: 99214

== ENCOUNTER → 2023-06-05 10:28 | Outpatient (BNVA) | payer BC, MEDICAID, SELFPAY | PROVIDERS: PCP Internal Medicine; Visit Provider Nurse Practitioner Psychiatric/Mental Health | DX: F11.20 Opioid dependence, uncomplicated (principal); F10.20 Alcohol dependence, uncomplicated | CPT/HCPCS: 96372; Q9992 ==

== ENCOUNTER 2023-07-03 10:53 | Outpatient (AMB) | payer BC, MEDICAID, SELFPAY ==
--- NOTE | 2023-07-03 11:00 | AM.OFFVISNUR ---
Intake Intake Visit Reasons: Sub Inj Allergies No Known Allergies Allergy (Verified 05/22/23 13:12) Nursing Note Patient presented to the [facility] office today for a scheduled sublocade injection, upon arrival she was brought in by in a wheelchair and she stated I cant walk! Im a mess Dominique, Im a mess, I need help. was tearful stating I just dont know what to do, shes been laying on floor at home, I have to get her on and off the toilet, if she isn't given alcohol shes yelling at me that shes going to seize and shakes uncontrollably. acknowledged that in the last 24 hours she had one bottle of wine and one liter of vodka . While was telling me this, the patient continued to yell shut up! Im not going to [place], [facility] or [place]! . Pt was alert and able to state the time and date, making no eye contact and sliding down in her wheelchair grabbing my arm to not fall out, and repeating the same things about states over and over with no redirection. She became verbally aggressive towards the swearing at him, he went home and she was brought to the ER for evaluation. Office Meds Sublocade 300 mg/1.5 mL solution,extended release subcutaneous syringe Performing Provider: Yazmin Mckinnon CNP Performing Location: [facility] Administered by: Dominique Lugo RN on 07/03/23 12:54 Dose Route Admin Location Dispensed Lot Number Expiration Date [facility] T[employer] 300 mg subcut RUQ 1.5 mL [id number] 06/04/24 [address]-3 [employer]. Coding Assessment & Plan Assessment & Plan Orders: Orders AMB Buprenorphine Injection - Patient Supplied Today F11.90 - Opioid use, unspecified, uncomplicated
== END 2023-07-03 11:18 ==
PROVIDERS: PCP Internal Medicine
DX: F11.90 Opioid use, unspecified, uncomplicated (principal)

== ENCOUNTER → 2023-07-03 10:53 | Outpatient (BNVA) | payer BC, MEDICAID, SELFPAY | PROVIDERS: PCP Internal Medicine | DX: F11.90 Opioid use, unspecified, uncomplicated (principal) | CPT/HCPCS: 96372; Q9992 ==

== ENCOUNTER 2023-07-03 11:45 | Emergency (ER) | payer BC, MEDICAID, SELFPAY ==
[2023-07-03 11:53] VITALS: BP 139/94; PULSE 92; RESP 18; O2SAT 98; BMI 35.9
--- NOTE | 2023-07-03 12:00 | MHC.EDTECH ---
Patient was changed into hospital attire. Patients belongings in locker 13
--- NOTE | 2023-07-03 12:02 | ED.GENADULT ---
HPI - General Adult General Chief complaint: ETOH/Substance Use Stated complaint: substance abuse/ cant walk Time Seen by Provider: 07/03/23 12:02 Source: patient Mode of arrival: ambulatory Limitations: no limitations History of Present Illness HPI narrative: Patient is a 52-year-old female with history of alcohol use disorder, opioid use disorder currently on Sublocade, elevated lived enzymes presenting to the emergency department requesting detox from alcohol. States last drink was around 10:30 this morning and was vodka, had about 3 drinks this morning. States in the past she would drink alcohol without eating, but states over the past few weeks she has been eating while drinking alcohol. She denies history of withdrawal seizures. She states that she has been prescribed Antabuse but has not been taking it. She did receive her Sublocade injection this morning. States having alcohol in the home is a trigger for her. She denies any physical complaints, just states she wants to stop drinking alcohol. Denies suicidal or homicidal ideation. Denies recent falls or other trauma. MD complaint: alcohol intoxication Onset (ago): hour(s) Associated symptoms: denies other symptoms Treatments prior to arrival: none Related Data Home Medications Medication Instructions Recorded Confirmed gabapentin 300 mg capsule 300 mg PO DAILY 04/28/23 05/13/23 ibuprofen 600 mg tablet 600 mg PO DAILY PRN Pain (Scale 04/28/23 05/13/23 Score 4-6) meclizine 12.5 mg tablet 12.5 mg PO TID PRN Nausea And 04/28/23 05/13/23 Vomiting multivitamin 1 tab PO DAILY 04/28/23 05/13/23 duloxetine 40 mg capsule,delayed 40 mg PO DAILY 05/13/23 05/13/23 release modafinil 100 mg tablet 100 mg PO DAILY 05/13/23 05/13/23 Previous Rx's Medication Instructions Recorded aspirin 81 mg tablet,delayed 81 mg PO DAILY #30 tabs 05/05/23 release doxycycline hyclate 100 mg capsule 100 mg PO BID #27 caps 05/15/23 buprenorphine 300 mg/1.5 mL 300 mg (1.5 mL) subcut .every 05/22/23 solution,exten.rel.subcutaneous days #1.5 mL syringe (Sublocade) buprenorphine 8 mg-naloxone 2 mg 1 film buccal BID #15 ea 05/29/23 sublingual film (Suboxone) disulfiram 500 mg tablet 500 mg PO DAILY #30 tabs 05/29/23 folic acid 1 mg tablet 1 mg PO DAILY #30 tabs 05/29/23 thiamine mononitrate (vit B1) 100 100 mg PO DAILY #30 tabs 05/29/23 mg tablet Allergies Allergy/AdvReac Type Severity Reaction Status Date / Time No Known Allergies Allergy Verified 05/22/23 13:12 Review of Systems Review of Systems: As per HPI Yes all other systems are reviewed and are negative Constitutional: Constitutional: Reports as per HPI PMFSH Past Medical History Medical History Abscess of axilla, right Rash Encounter for monitoring Suboxone maintenance therapy Hypertension Alcohol use disorder, severe, dependence Opioid use disorder Alcohol abuse Surgical History (Updated 05/19/23 @ 00:02 by Penny Ortega) History of total knee arthroplasty History of gastric surgery Family History Family History Father Lung cancer Social History Social History Household Members: Spouse Housing: House Do you presently have visiting nurse or other home services: No (Being set up.) Unable to assess alcohol history related to: Unknown Alcohol intake: current Alcohol intake frequency: 3 or more drinks per day Alcohol type: wine and other Comment: refuses fall risk alarms Patient Tobacco Use Status: Former Tobacco user Quit Date: 2022 Tobacco use type: Cigarette Years Smoked: 2 Smoked in Last 30 Days: No Second Hand Smoke Exposure: No Use of substances other than those prescribed or required for medical reasons: Refusing to respond Advance Directives: No Advance Directives Information Provided: No service: No Current occupational status: employed Physical Exam ED Vital Signs: Vital Signs - 24 hr 07/03/23 11:53 07/03/23 12:57 07/03/23 15:35 Temperature Pulse Rate 92 92 96 Respiratory Rate 18 18 20 Blood Pressure 139/94 H 118/81 105/62 Pulse Oximetry 98 97 95 Oxygen Delivery Method Room Air Room Air Room Air 07/03/23 18:33 07/03/23 21:03 Temperature 98.2 F Pulse Rate 89 105 H Respiratory Rate 18 20 Blood Pressure 121/82 141/83 H Pulse Oximetry 92 95 Oxygen Delivery Method Room Air Room Air BMI result Body Mass Index 35.9 Vital signs have been reviewed and appear to be correct. Blood pressure normal. Heart rate normal. Respiratory rate normal. Temperature normal. Oxygen saturation normal. Const General: cooperative, no acute distress and intoxicated appearing Orientation/consciousness: patient oriented x3 Limitations: no limitations HENMT Head: Yes normocephalic and Yes atraumatic Ears: external ears normal General nose exam: Normal external nose present Face and sinus: Yes face symmetric Mouth: oropharynx normal and moist mucous membranes Throat: Yes uvula midline Eyes Pupils: Equal, round and reactive pupils present Neck Neck: Yes normal visual inspection and Yes supple Resp Effort & Inspection: normal respiratory effort and able to speak in complete sentences Auscultation: clear to auscultation bilaterally Cardio Rate: regular rate Rhythm: regular rhythm Heart sounds: S1 normal heart sound present and S2 normal heart sound present GI Palpation (GI): Soft to palpation and nontender Auscultation: normoactive bowel sounds General: Yes no CVA tenderness Back/Spine/Pelvis Back: no CVA tenderness Skin General skin exam: elasticity normal and turgor normal Neuro General: patient oriented x3 Cranial nerves: Yes Equal, round and reactive pupils present Cognition (Neuro): normal cognition Extrem General: Yes full ROM, Yes no pedal edema and Yes no calf tenderness Psych Mental Status: mental status grossly normal Affect: normal affect Thought process: Normal thought process present Course Reevaluation(s) Reevaluation #1: Patient received in sign-out at change of shift pending sober re-evaluation and addiction medicine consult. The patient states that she does not want to go to detox. She has a history of unsteady gait and falls but she does not want to go to short-term rehab either. The patient does have mild alcohol withdrawal with a CIWA of 10. She will be given 1 dose of phenobarbital IM. She will attempt to find a safe ride home. If she can not get a safe ride home, she is willing to stay in the hospital and meet with addiction medicine. The patient does not require admission for detox/withdrawal at this time Time: 21:16 Medications Administered Discontinued Medications Generic Name Dose Route Start Last Admin Trade Name Freq PRN Reason Stop Dose Admin Lorazepam 2 mg 07/03/23 14:33 07/03/23 14:55 Lorazepam 1 Mg Tablet PO 07/03/23 14:34 2 mg ONCE ONE Administration Thiamine HCl 100 mg 07/03/23 12:39 07/03/23 12:52 Thiamine Hcl 200 Mg/2 Ml Vial IM 07/03/23 12:40 100 mg ONCE ONE Administration Medical Decision Making Medical Decision Making [facility] Narrative: Patient is a 52-year-old female with history of alcohol use disorder, opioid use disorder currently on Sublocade, elevated liver enzymes presenting to the emergency department requesting detox from alcohol. On exam patient is awake, A+Ox3, VS WNL, afebrile, normal neurological exam without focal deficits, physical exam findings as above. Given reported symptoms and physical exam findings, initial differential includes alcohol intoxication, alcohol use disorder. She is calm and cooperative and requesting help with detox on initial assessment. Plan: medical clearance, addiction medicine consult Labs notable for ETOH of 300, chronic anemia, chronically elevated LFTs. She denies abdominal pain at this time, had U/S in April of this year which showed fatty liver without acute process. Do not feel repeat imaging is indicated at this time. Will place patient on physician observation pending addiction medicine consult when clinically sober. Differential Diagnosis Differential Diagnoses: The differential diagnosis associated with the presentation includes As per [facility] Admission/Observation Consideration of admission/observation: Escalation of care including admission/observation considered Patient would have been admitted to the hospital had their work up had any findings where hospital admission was appropriate and their clinical presentation warranted hospital admission. Lab Data [facility] Lab Attestation statement: I reviewed the patient's lab results. As per [facility] 07/03/23 13:22 07/03/23 13:22 Labs: Lab Results 07/03/23 Range/Units 13:22 WBC 3.3 L (4.8-10.8) X10*3/uL RBC 3.27 L (4.20-5.50) X10*6/uL Hgb 10.6 L (12.0-16.0) g/dl Hct 31.3 L (37.0-47.0) % MCV 95.7 (80.0-98.0) fL MCH 32.4 (27.0-33.0) pg MCHC 33.9 (31.0-35.0) g/dl RDW 21.1 H (11.0-16.0) % Plt Count 172 D (160-400) X10*3/uL MPV 9.3 L (9.4-12.3) fL Immature Gran % (Auto) 0.9 H (0.0-0.4) % Neut % (Auto) 68.5 (45-73) % Lymph % (Auto) 17.0 L (20-40) % [place] % (Auto) 10.3 (2-11) % Eos % (Auto) 1.2 (0-4) % Baso % (Auto) 2.1 H (0-2) % Lymph # (Auto) 0.6 L (1.2-4.9) X10*3/uL [place] # (Auto) 0.3 (0.1-1.2) X10*3/uL Eos # (Auto) 0.0 (0.0-0.4) X10*3/uL Baso # (Auto) 0.1 (0.0-0.2) X10*3/uL Abs Immat Gran (auto) 0.03 (0.00-0.03) X10*3/uL Absolute Neuts (auto) 2.3 (2.0-8.3) x10*3/uL Absolute Nucleated RBC 0.000 (0.0-0.012) X10*3/uL Nucleated RBC % (auto) 0.0 (0.0-0.2) /100WBC Sodium 140 (135-145) mmol/L Potassium 3.7 (3.3-5.1) mmol/L Chloride 102 (96-108) mmol/L Carbon Dioxide 27 (22-29) mmol/L Anion Gap 15 (12-20) BUN 5 L (9-16) mg/dL Creatinine 0.51 (0.5-1.4) mg/dL Estim Creat Clear Calc 172.0 Estimated GFR > 60 Random Glucose 96 (60-115) mg/dL Calcium 8.1 L D (8.4-10.2) mg/dL Magnesium 1.7 (1.6-2.6) mg/dL Total Bilirubin 2.2 H (0.0-1.0) mg/dL AST 573 H (5-31) U/L ALT 156 H (0-31) U/L Alkaline Phosphatase 540 H (39-117) U/L Total Protein 6.0 L (6.5-8.0) g/dL Albumin 3.1 L (3.5-5.0) g/dL Ethyl Alcohol 300 H* mg/dL External Record Review External record reviewed: Inpatient record, Office record and Outpatient record Discharge Plan Discharge Clinical Impression: Alcohol intoxication, Alcohol use disorder Patient Disposition: Home, Self-Care Instructions: Abuse of Alcohol (ED) Additional Instructions: Follow-up with your primary doctor as well as Yazmin Mckinnon Return for new or worsening symptoms You may use all of your home medications as prescribed Avoid excessive consumption of alcohol Prescriptions: No Action multivitamin Tablet 1 tab PO DAILY meclizine 12.5 mg Tablet 12.5 mg PO TID PRN (Reason: Nausea And Vomiting) gabapentin 300 mg capsule 300 mg PO DAILY ibuprofen 600 mg tablet 600 mg PO DAILY PRN (Reason: Pain (Scale Score 4-6)) aspirin 81 mg Tablet,Delayed Release (Dr/Ec) 81 mg PO DAILY Qty: 30 0RF modafinil 100 mg tablet 100 mg PO DAILY duloxetine 40 mg capsule,delayed release(DR/EC) 40 mg PO DAILY doxycycline hyclate 100 mg capsule 100 mg PO BID Qty: 27 0RF Sublocade 300 mg/1.5 mL solution, extended rel syringe 300 mg subcut .every 28 days Qty: 1.5 2RF buprenorphine-naloxone [Suboxone] 8-2 mg film 1 film buccal BID Qty: 15 0RF disulfiram 500 mg tablet 500 mg PO DAILY Qty: 30 3RF folic acid 1 mg tablet 1 mg PO DAILY Qty: 30 3RF thiamine mononitrate (vit B1) 100 mg tablet 100 mg PO DAILY Qty: 30 3RF
[2023-07-03] MEDS: Thiamine HCL 200 MG/2 ML VIAL 100 MG IM (12:52)
[2023-07-03 12:57] VITALS: BP 118/81; PULSE 92; RESP 18; O2SAT 97
[2023-07-03 13:25] LABS: MANUAL DIFF FLAG NO
[2023-07-03 13:29] LABS: Basophils Absolute Auto 0.1 X10*3/uL (0.0-0.2); Basophils Percent Auto 2.1 % (0-2); Eosinophils Percent Auto 1.2 % (0-4); Hematocrit 31.3 % (37.0-47.0); Hemoglobin 10.6 g/dl (12.0-16.0); Imm Gran Abs Auto 0.03 X10*3/uL (0.00-0.03); Imm Gran Pct Auto 0.9 % (0.0-0.4); Lymphocytes Absolute Auto 0.6 X10*3/uL (1.2-4.9); Mean Corpuscular HGB Conc 33.9 g/dl (31.0-35.0); Mean Corpuscular Hemoglobin 32.4 pg (27.0-33.0); Mean Corpuscular Volume 95.7 fL (80.0-98.0); Mean Platelet Volume 9.3 fL (9.4-12.3); Monocytes Absolute Auto 0.3 X10*3/uL (0.1-1.2); Monocytes Percent Auto 10.3 % (2-11); Neutrophils Absolute Auto 2.3 x10*3/uL (2.0-8.3); Neutrophils Percent Auto 68.5 % (45-73); Platelet Count 172 X10*3/uL (160-400); Red Blood Count 3.27 X10*6/uL (4.20-5.50); Red Cell Distribution Width 21.1 % (11.0-16.0); White Blood Count 3.3 X10*3/uL (4.8-10.8)
[2023-07-03 13:40] LABS: Alanine Aminotransferase 156 U/L (0-31); Albumin Level 3.1 g/dL (3.5-5.0); Alkaline Phosphatase 540 U/L (39-117); Anion Gap 15 (12-20); Aspartate Amino Transferase 573 U/L (5-31); Bilirubin Total 2.2 mg/dL (0.0-1.0); Blood Urea Nitrogen 5 mg/dL (9-16); Calcium 8.1 mg/dL (8.4-10.2); Carbon Dioxide 27 mmol/L (22-29); Chloride 102 mmol/L (96-108); Estimated Glomerular Filt Rate > 60; Ethanol 300 mg/dL; Glucose Random 96 mg/dL (60-115); Magnesium 1.7 mg/dL (1.6-2.6); Potassium 3.7 mmol/L (3.3-5.1); Sodium 140 mmol/L (135-145)
--- NOTE | 2023-07-03 14:33 | PC.NURSE ---
Patient reports she is having DT`s, provider aware
[2023-07-03] MEDS: LORazepam 1 MG TABLET 2 MG PO (14:55)
[2023-07-03 15:35] VITALS: BP 105/62; PULSE 96; RESP 20; O2SAT 95
[2023-07-03 18:33] VITALS: BP 121/82; PULSE 89; RESP 18; TEMP 36.8; O2SAT 92
--- NOTE | 2023-07-03 19:25 | PC.NURSE ---
assumed care of pt at 1900.
[2023-07-03 21:03] VITALS: BP 141/83; PULSE 105; RESP 20; O2SAT 95
--- NOTE | 2023-07-03 21:21 | PC.NURSE ---
this RN and DEJAH Ayers had discussion with patient regarding pt situation, she chooses not to stay for detox/rehab and does not wish to stay until morning to see care/recovery team. pt clinically sober, speaking clear full sentences, in no apparent distress. provider discharging pt after giving her injection of phenobarb for w/d's. pt says she sees alessio mcmullen and will continue outpatient services. Pt called to pick her up .
[2023-07-03] MEDS: PHENobarbitaL sodium 130 MG/ML IM ONCE 275 MG IM (21:28)
[2023-07-03 21:30] VITALS: BP 141/83; PULSE 100; RESP 18; TEMP 37; O2SAT 96
== END 2023-07-03 21:49 | disposition home or self-care (01) ==
PROVIDERS: Registered Nurse Emergency; Emergency Provider Student in an Organized Health Care Education/Training Program; PCP Internal Medicine
DX: F10.129 Alcohol abuse with intoxication, unspecified (principal); F11.10 Opioid abuse, uncomplicated; Y90.8 Blood alcohol level of 240 mg/100 ml or more; R41.82 Altered mental status, unspecified; Z79.891 Long term (current) use of opiate analgesic; Z79.899 Other long term (current) drug therapy; Z71.41 Alcohol abuse counseling and surveillance of alcoholic; Z02.83 Encounter for blood-alcohol and blood-drug test
CPT/HCPCS: 36415; 80053; 80307; 83735; 85025; 96372; 99284; J2560; J3411

== ENCOUNTER 2023-07-18 21:39 | Inpatient (IN) | payer BC, MEDICAID, SELFPAY ==
--- NOTE | ~2023-07-18 | XR_ITS ---
EXAMINATION: XR CHEST CLINICAL INFORMATION: Shortness of breath. COMPARISON: Chest x-ray May 03, 2023 TECHNIQUE: Frontal portable view of the chest was obtained. 0030 hours FINDINGS: Lungs are clear. No pulmonary vascular congestion. There is no pleural effusion. The heart size is normal. The cardiac and mediastinal contours are normal. There are multilevel degenerative changes of dorsal spine. XR/XR chest 1V IMPRESSION: Unremarkable examination.
--- NOTE | ~2023-07-18 | CT_ITS ---
EXAMINATION: CT HEAD WITHOUT CONTRAST CT CERVICAL SPINE WITHOUT CONTRAST CLINICAL INFORMATION: Trauma. Pain. COMPARISON: None available. TECHNIQUE: Contiguous axial imaging was performed through the head and cervical spine without intravenous administration of contrast. Sagittal and coronal reformatted images also obtained. This CT examination was performed using dose optimization techniques as appropriate, variously including the following: *Automated exposure control *Adjustment of mA and/or kV according to patient size (this includes techniques or standardized protocols for targeted exams where dose is matched to indication/reason for exam; i.e. extremities or head) *Use of iterative reconstruction technique DLP: 1272 mGy-cm FINDINGS: There is mild cerebral volume loss with prominence of the lateral and third ventricles. The cortical sulci are widened appropriately. The fourth ventricle and basal cisterns are normally outlined. There is mild bilateral periventricular and central white matter diminished attenuation. There is no acute territorial defect, hemorrhage or midline shift. The extra-axial spaces are unremarkable. Calvarium: Intact. Maxillofacial sinuses and mastoids: Clear as visualized. Cervical spine: There is again seen grade 1 anterolisthesis C4 over C5 with straightening of the expected cervical spine curvature. There is diffuse rglm-zs-gzhrpevv cervical disc degenerative change with loss of disc space, endplate change and posterior osteophytes associated with diffuse inzj-oh-tiljlqvb facet osteoarthritic hypertrophic change with multilevel bkde-ty-zirtlyjc spinal canal narrowing greatest at C5-C6 as well as multilevel bilateral zezw-fl-ethnvlma neuroforaminal narrowing. The bone mineralization is normal. No fracture is seen. The soft tissues are unremarkable. The visualized upper lung pablo are clear. CT/CT head/brain wo IV con IMPRESSION: 1. No acute intracranial process seen. 2. Mild cerebral volume loss with chronic small vessel ischemic changes. 3. There is no acute cervical spine fracture or traumatic subluxation. There is grade 1 anterolisthesis C4 over C5 with straightening of the expected cervical spine curvature likely secondary to degenerative changes. 4. There is diffuse cervical spondylosis greatest at C5-C6 with multilevel xguf-cx-zascwqft spinal canal and bilateral rept-zs-dsmqxwwk neuroforaminal narrowing.
--- NOTE | ~2023-07-18 | CT_ITS ---
EXAMINATION: CT HEAD WITHOUT CONTRAST CT CERVICAL SPINE WITHOUT CONTRAST CLINICAL INFORMATION: Trauma. Pain. COMPARISON: None available. TECHNIQUE: Contiguous axial imaging was performed through the head and cervical spine without intravenous administration of contrast. Sagittal and coronal reformatted images also obtained. This CT examination was performed using dose optimization techniques as appropriate, variously including the following: *Automated exposure control *Adjustment of mA and/or kV according to patient size (this includes techniques or standardized protocols for targeted exams where dose is matched to indication/reason for exam; i.e. extremities or head) *Use of iterative reconstruction technique DLP: 1272 mGy-cm FINDINGS: There is mild cerebral volume loss with prominence of the lateral and third ventricles. The cortical sulci are widened appropriately. The fourth ventricle and basal cisterns are normally outlined. There is mild bilateral periventricular and central white matter diminished attenuation. There is no acute territorial defect, hemorrhage or midline shift. The extra-axial spaces are unremarkable. Calvarium: Intact. Maxillofacial sinuses and mastoids: Clear as visualized. Cervical spine: There is again seen grade 1 anterolisthesis C4 over C5 with straightening of the expected cervical spine curvature. There is diffuse uhdh-tg-jfhahwfv cervical disc degenerative change with loss of disc space, endplate change and posterior osteophytes associated with diffuse eieh-ig-yrybwfyv facet osteoarthritic hypertrophic change with multilevel yhlz-gm-tkxgaune spinal canal narrowing greatest at C5-C6 as well as multilevel bilateral puab-vg-szaapvxg neuroforaminal narrowing. The bone mineralization is normal. No fracture is seen. The soft tissues are unremarkable. The visualized upper lung pablo are clear. CT/CT cervical spine wo IV con IMPRESSION: 1. No acute intracranial process seen. 2. Mild cerebral volume loss with chronic small vessel ischemic changes. 3. There is no acute cervical spine fracture or traumatic subluxation. There is grade 1 anterolisthesis C4 over C5 with straightening of the expected cervical spine curvature likely secondary to degenerative changes. 4. There is diffuse cervical spondylosis greatest at C5-C6 with multilevel etbg-ud-yijbicvz spinal canal and bilateral ofao-ny-dhjaxfdx neuroforaminal narrowing.
[2023-07-18 21:48] VITALS: BP 124/66; BP 160/100; PULSE 94; PULSE 97; RESP 20; TEMP 36.9; O2SAT 97; O2SAT 99; BMI 37.2
[2023-07-19] VITALS (9 sets, daily range): BP systolic 96–125; BP diastolic 47–72; PULSE 88–107; RESP 12–18; TEMP 36.8–37.2; O2SAT 93–98
--- NOTE | 2023-07-19 00:10 | ED_ITS ---
HPI - Fall General Chief Complaint: Fall Stated Complaint: WIT FALL, 2 SEC LOC, ALTERED & ETOH Time Seen by Provider: 07/19/23 00:09 Source: patient, family and EMS Mode of arrival: EMS Limitations: no limitations History of Present Illness HPI Narrative: Patient alcoholic was sober for 8 months started drinking again for last 4 months been falling multiple times feels very weak does not eat just does drink alcohol for last few days patient been feeling weak in her legs unable to stand up and ambulate looking for in-house admit last drink was at 18:00 patient has been here multiple times last visit was 07/02 as different ages of bruising all over patient was seen here on 07/02 at that time patient refused to go to rehab or detox patient also does have opiate use disorder currently in remission taking Sublocade for patient's boyfriend noticed that she is confused lately and having visual hallucinations today Related Data Home Medications ?Medication ?Instructions ?Recorded ?Confirmed gabapentin 300 mg capsule 300 mg PO DAILY 04/28/23 05/13/23 ibuprofen 600 mg tablet 600 mg PO DAILY PRN Pain (Scale 04/28/23 05/13/23 Score 4-6) meclizine 12.5 mg tablet 12.5 mg PO TID PRN Nausea And 04/28/23 05/13/23 Vomiting multivitamin 1 tab PO DAILY 04/28/23 05/13/23 duloxetine 40 mg capsule,delayed 40 mg PO DAILY 05/13/23 05/13/23 release modafinil 100 mg tablet 100 mg PO DAILY 05/13/23 05/13/23 Previous Rx's ?Medication ?Instructions ?Recorded aspirin 81 mg tablet,delayed 81 mg PO DAILY #30 tabs 05/05/23 release doxycycline hyclate 100 mg capsule 100 mg PO BID #27 caps 05/15/23 buprenorphine 300 mg/1.5 mL 300 mg (1.5 mL) subcut .every 05/22/23 solution,exten.rel.subcutaneous days #1.5 mL syringe (Sublocade) buprenorphine 8 mg-naloxone 2 mg 1 film buccal BID #15 ea 05/29/23 sublingual film (Suboxone) disulfiram 500 mg tablet 500 mg PO DAILY #30 tabs 05/29/23 folic acid 1 mg tablet 1 mg PO DAILY #30 tabs 05/29/23 thiamine mononitrate (vit B1) 100 100 mg PO DAILY #30 tabs 05/29/23 mg tablet Allergies Allergy/AdvReac Type Severity Reaction Status Date / Time No Known Allergies Allergy Verified 07/18/23 21:53 Review of Systems 2 Review of Systems: Yes all other systems are reviewed and are negative [facility] Past Medical History Medical History Alcohol withdrawal syndrome Abscess of axilla, right Rash Encounter for monitoring Suboxone maintenance therapy Hypertension Alcohol use disorder, severe, dependence Opioid use disorder Alcohol abuse Surgical History History of total knee arthroplasty History of gastric surgery Family History Family History Father Lung cancer Social History Social History Household Members: Spouse Housing: House Do you presently have visiting nurse or other home services: No (Being set up.) Unable to assess alcohol history related to: Unknown Alcohol intake: current Alcohol intake frequency: 3 or more drinks per day Alcohol type: wine and hard liquor Comment: refuses fall risk alarms Patient Tobacco Use Status: Former Tobacco user Quit Date: 2022 Tobacco use type: Cigarette Years Smoked: 2 Smoked in Last 30 Days: No Second Hand Smoke Exposure: No Use of substances other than those prescribed or required for medical reasons: No Advance Directives: No Advance Directives Information Provided: No Nutrition Risks: No Nutritional Risk Patient : No service: No Current occupational status: employed Physical Exam 2 Vital Signs: Vital Signs: Last Vital Signs Temp 98.4 F 07/19/23 06:12 Pulse 102 H 07/19/23 06:12 Resp 16 07/19/23 06:12 BP 122/60 07/19/23 06:12 Pulse Ox 94 07/19/23 06:12 O2 Del Method Room Air 07/19/23 06:12 BMI result Body Mass Index 37.2 Appearance: Alert. Oriented X3. No acute distress. Eyes: PERRLA, No Nystagmus icterus+ ENT: Pharynx normal. Oral Mucosa moist atraumatic normocephalic Neck: Normal inspection. Neck supple. CVS: Normal heart rate and rhythm. Pulses normal. Respiratory: No respiratory distress. Equal air entry bilateral, no wheezing/rales/rhonchi Abdomen: Soft and nontender. Bowel sounds are present, no mass palpable, no CVA tenderness Skin: Skin warm and dry. Bruising of different ages all over the body Normal skin turgor. Extremities: No lower extremity edema. No calf tenderness Neuro: Oriented X 3. No motor deficit. No sensory deficit.No cerebellar signs , cranial nerves II-XII intact Medications Administered Generic Name Dose Route Start Last Admin Trade Name Freq PRN Reason Stop Dose Admin Enoxaparin Sodium 40 mg 07/19/23 03:00 07/19/23 03:18 Enoxaparin Sodium 40 Mg/0.4 Ml Syringe SUBCUT 40 mg DAILY LOURDES Administration Phenobarbital Sodium 156 mg 07/19/23 05:00 07/19/23 05:11 Phenobarbital Sodium 130 Mg/Ml Vial Im Q3hx2 IM 07/19/23 08:01 156 mg Q3H LOURDES Administration Discontinued Medications Generic Name Dose Route Start Last Admin Trade Name Freq PRN Reason Stop Dose Admin Sodium Chloride 1,000 mls @ 999 mls/hr 07/19/23 00:20 07/19/23 02:04 Ns IV 07/19/23 01:20 Infused .Q1H1M ONE Infusion Thiamine HCl 500 mg/ Sodium 105 mls @ 210 mls/hr 07/19/23 00:20 07/19/23 01:35 Chloride IV 07/19/23 00:49 Infused ONCE ONE Infusion Mineral Oil 133 ml 07/19/23 05:31 07/19/23 05:53 Mineral Oil Enema 133 Ml Enema TN 07/19/23 05:32 133 ml ONCE ONE Administration Phenobarbital Sodium 208 mg 07/19/23 02:00 07/19/23 02:05 Phenobarbital Sodium 130 Mg/Ml Im Once IM 07/19/23 02:01 208 mg ONCE ONE Administration Potassium Chloride 40 meq 07/19/23 02:53 07/19/23 03:18 Potassium Chloride Packet 20 Meq Packet PO 07/19/23 02:54 40 meq ONCE ONE Administration Medical Decision Making Medical Decision Making [facility] Narrative: Patient alcoholic with frequent falls requesting for detox will admit patient started on phenobarb protocol give a having CT scan of the head and C-spine negative for acute Differential Diagnosis Differential Diagnoses: The differential diagnosis associated with the presentation includes Alcohol withdrawal/alcohol dependence/frequent falls Admission/Observation Consideration of admission/observation: Escalation of care including admission/observation considered Consult Healthcare Provider Management of the patient was discussed with: Hospitalist Lab Data MDM Lab Attestation statement: I reviewed the patient's lab results. 07/19/23 04:59 07/19/23 04:59 Labs: Lab Results 07/19/23 07/19/23 Range/Units 01:00 01:14 WBC 5.3 (4.8-10.8) X10*3/uL RBC 2.97 L (4.20-5.50) X10*6/uL Hgb 10.2 L (12.0-16.0) g/dl Hct 28.0 L (37.0-47.0) % MCV 94.3 (80.0-98.0) fL MCH 34.3 H (27.0-33.0) pg MCHC 36.4 H (31.0-35.0) g/dl RDW 16.5 H (11.0-16.0) % Plt Count 157 L (160-400) X10*3/uL MPV 10.7 (9.4-12.3) fL Immature Gran % (Auto) 0.4 (0.0-0.4) % Neut % (Auto) 73.9 H (45-73) % Lymph % (Auto) 17.7 L (20-40) % [place] % (Auto) 6.6 (2-11) % Eos % (Auto) 0.6 (0-4) % Baso % (Auto) 0.8 (0-2) % Lymph # (Auto) 0.9 L (1.2-4.9) X10*3/uL [place] # (Auto) 0.4 (0.1-1.2) X10*3/uL Eos # (Auto) 0.0 (0.0-0.4) X10*3/uL Baso # (Auto) 0.0 (0.0-0.2) X10*3/uL Abs Immat Gran (auto) 0.02 (0.00-0.03) X10*3/uL Absolute Neuts (auto) 3.9 (2.0-8.3) x10*3/uL Absolute Nucleated RBC 0.000 (0.0-0.012) X10*3/uL Nucleated RBC % (auto) 0.0 (0.0-0.2) /100WBC PT 11.5 (11.1-13.3) SEC INR 0.9 (0.9-1.1) Sodium 128 L (135-145) mmol/L Potassium 3.1 L (3.3-5.1) mmol/L Chloride 85 L (96-108) mmol/L Carbon Dioxide 27 (22-29) mmol/L Anion Gap 19 (12-20) BUN 6 L (9-16) mg/dL Creatinine 0.50 (0.5-1.4) mg/dL Estim Creat Clear Calc 141.2 Estimated GFR > 60 Random Glucose 105 (60-115) mg/dL Calcium 8.4 (8.4-10.2) mg/dL Magnesium 1.9 (1.6-2.6) mg/dL Total Bilirubin 4.5 H (0.0-1.0) mg/dL AST 203 H (5-31) U/L ALT 65 H (0-31) U/L Alkaline Phosphatase 355 H (39-117) U/L Troponin I High Sens 3.8 (<3.5-17.0) ng/L Total Protein 6.5 (6.5-8.0) g/dL Albumin 3.4 L (3.5-5.0) g/dL Lipase 11 (8-78) U/L Urine Color Yellow Urine Appearance Clear Urine pH 7.0 (5.0-9.0) Ur Specific [place] <= 1.005 (1.005-1.025) Urine Protein Negative (Neg-Trace) mg/dL Urine Glucose (UA) Negative (Negative) mg/dL Urine Ketones Negative (Negative) mg/dL Urine Blood Negative (Negative) Urine Nitrite Negative (Negative) Ur Leukocyte Esterase Negative (Negative) Ethyl Alcohol 259 mg/dL Independent Interpretation I performed an independent interpretation of an: EKG Interpretation: Normal sinus rhythm heart rate 95 beats per minute normal interval normal axis no acute ST T wave changes no acute ischemia Discharge Plan Discharge Clinical Impression: Alcohol withdrawal, Alcohol use disorder, severe, dependence, Acute hypokalemia Patient Disposition: Admitted As Inpatient
--- NOTE | 2023-07-19 00:20 | ECG_ITS ---
Test Reason : weakness Blood Pressure : / mmHG Vent. Rate : 095 BPM Atrial Rate : 095 BPM P-R Int : 146 ms QRS Dur : 080 ms QT Int : 380 ms P-R-T Axes : 007 016 005 degrees QTc Int : 477 ms Normal sinus rhythm Normal ECG When compared with ECG of 03-FEB-2022 07:37, No significant changes seen Referred By: Joe Simms Electronically Signed By:Abiodun Branch
[2023-07-19 01:04] LABS: MANUAL DIFF FLAG NO
[2023-07-19] MEDS: 0.9 % Sodium Chloride 1,000 ML 999 ML IV (01:04)
[2023-07-19] MEDS: Thiamine HCL 500 MG in 0.9 % Sodium Chloride 100 ML 210 MG IV (01:05)
[2023-07-19 01:06] LABS: Basophils Percent Auto 0.8 % (0-2); Eosinophils Percent Auto 0.6 % (0-4); Hemoglobin 10.2 g/dl (12.0-16.0); Imm Gran Abs Auto 0.02 X10*3/uL (0.00-0.03); Imm Gran Pct Auto 0.4 % (0.0-0.4); Lymphocytes Absolute Auto 0.9 X10*3/uL (1.2-4.9); Lymphocytes Percent Auto 17.7 % (20-40); Mean Corpuscular HGB Conc 36.4 g/dl (31.0-35.0); Mean Corpuscular Hemoglobin 34.3 pg (27.0-33.0); Mean Corpuscular Volume 94.3 fL (80.0-98.0); Mean Platelet Volume 10.7 fL (9.4-12.3); Monocytes Absolute Auto 0.4 X10*3/uL (0.1-1.2); Monocytes Percent Auto 6.6 % (2-11); Neutrophils Absolute Auto 3.9 x10*3/uL (2.0-8.3); Neutrophils Percent Auto 73.9 % (45-73); Platelet Count 157 X10*3/uL (160-400); Red Blood Count 2.97 X10*6/uL (4.20-5.50); Red Cell Distribution Width 16.5 % (11.0-16.0); White Blood Count 5.3 X10*3/uL (4.8-10.8)
[2023-07-19 01:12] LABS: INTERNATIONAL NORM RATIO 0.9 (0.9-1.1); Prothrombin Time 11.5 SEC (11.1-13.3)
[2023-07-19 01:19] LABS: Alanine Aminotransferase 65 U/L (0-31); Albumin Level 3.4 g/dL (3.5-5.0); Alkaline Phosphatase 355 U/L (39-117); Anion Gap 19 (12-20); Aspartate Amino Transferase 203 U/L (5-31); Bilirubin Total 4.5 mg/dL (0.0-1.0); Blood Urea Nitrogen 6 mg/dL (9-16); Calcium 8.4 mg/dL (8.4-10.2); Carbon Dioxide 27 mmol/L (22-29); Chloride 85 mmol/L (96-108); Creatinine Clr Calc Pharmacy 141.2; Estimated Glomerular Filt Rate > 60; Ethanol 259 mg/dL; Glucose Random 105 mg/dL (60-115); Lipase 11 U/L (8-78); Magnesium 1.9 mg/dL (1.6-2.6); Potassium 3.1 mmol/L (3.3-5.1); Sodium 128 mmol/L (135-145); Total Protein 6.5 g/dL (6.5-8.0)
[2023-07-19 01:20] LABS: Appearance Urine Clear; Color Urine Yellow; Glucose Urine UA Negative (Negative); Leukocyte Esterase Urine Negative (Negative); Nitrite Urine Negative (Negative); Specific Gravity - Urine <= 1.005 (1.005-1.025); Urine Blood Negative (Negative); Urine Ketones Negative (Negative); Urine Protein Negative (Neg-Trace)
[2023-07-19 01:26] LABS: Troponin-I High Sensitivity 3.8 ng/L (<3.5-17.0)
[2023-07-19] MEDS: PHENobarbitaL sodium 130 MG/ML IM ONCE 208 MG IM (02:05)
--- NOTE | 2023-07-19 02:09 | P.HPHOSP_ITS ---
History of Present Illness Date of Service: 07/19/23 Chief Complaint: Alcohol withdrawal This is a 52-year-old female with pertinent history of alcohol use disorder, opioid use disorder on Suboxone, mood disorder who presents to the emergency department for concerns of alcohol withdrawal. Patient states her last drink was on the day of presentation. Patient relapsed in the last 4 months and has been drinking every day. Admits poor p.o. intake whenever she drinks alcohol. Does have a history of alcohol withdrawal. No history of alcohol withdrawal seizures. Patient states she has been having anxiety, visual hallucination since she stopped drinking. Also feels weak and is falling frequently. No fever, chills, chest discomfort, palpitations, shortness of breath, abdominal pain, changes in urinary or bowel habits. In the emergency department, patient was initiated on phenobarb protocol. Sodium 128, potassium 3.1, AST 203 and ALT 65. Review of Systems 2 Constitutional: Constitutional: Reports no additional constitutional complaints Cardiovascular: Cardiovascular: Reports no additional cardiovascular complaints Respiratory: Respiratory: Reports no additional respiratory complaints Gastrointestinal: Gastrointestinal: Reports no additional gastrointestinal complaints Genitourinary: Genitourinary: Reports no additional female genitourinary complaints Psychiatric: Psychiatric: Reports visual hallucinations PMFSH Medical History Alcohol withdrawal syndrome Abscess of axilla, right Rash Encounter for monitoring Suboxone maintenance therapy Hypertension Alcohol use disorder, severe, dependence Opioid use disorder Alcohol abuse Family History Father Lung cancer Surgical History History of total knee arthroplasty History of gastric surgery Social History Household Members: Spouse Housing: House Do you presently have visiting nurse or other home services: No (Being set up.) Unable to assess alcohol history related to: Unknown Alcohol intake: current Alcohol intake frequency: 3 or more drinks per day Alcohol type: wine and hard liquor Comment: refuses fall risk alarms Patient Tobacco Use Status: Former Tobacco user Quit Date: 2022 Tobacco use type: Cigarette Years Smoked: 2 Smoked in Last 30 Days: No Second Hand Smoke Exposure: No Use of substances other than those prescribed or required for medical reasons: No Advance Directives: No Advance Directives Information Provided: No Patient : No service: No Current occupational status: employed Meds Allergies Allergy/AdvReac Type Severity Reaction Status Date / Time No Known Allergies Allergy Verified 07/18/23 21:53 Active Medications: Current Medications Pharmacy Consult (Consult Rx Etoh Phenob Im/Po) 10 each MISCELLANE ONCE PRN; Protocol PRN Reason: Consult order Phenobarbital (Phenobarbital 15 Mg Tablet) 45 mg PO BID LOURDES; Protocol Stop: 07/21/23 09:01 Phenobarbital (Phenobarbital 15 Mg Tablet) 15 mg PO BID LOURDES; Protocol Stop: 07/23/23 09:01 Phenobarbital (Phenobarbital 15 Mg Tablet) 15 mg PO DAILY LOURDES; Protocol Stop: 07/25/23 09:01 Phenobarbital Sodium (Phenobarbital Sodium 130 Mg/Ml Vial Im Q3hx2) 156 mg IM Q3H LOURDES Stop: 07/19/23 08:01 Home Medications ?Medication ?Instructions ?Recorded ?Confirmed ?Last Taken ?Type gabapentin 300 mg capsule 300 mg PO DAILY 04/28/23 05/13/23 05/13/23 History ibuprofen 600 mg tablet 600 mg PO DAILY PRN Pain (Scale 04/28/23 05/13/23 05/13/23 History Score 4-6) meclizine 12.5 mg tablet 12.5 mg PO TID PRN Nausea And 04/28/23 05/13/23 05/13/23 History Vomiting multivitamin 1 tab PO DAILY 04/28/23 05/13/23 05/13/23 History duloxetine 40 mg capsule,delayed 40 mg PO DAILY 05/13/23 05/13/23 05/13/23 History release modafinil 100 mg tablet 100 mg PO DAILY 05/13/23 05/13/23 05/13/23 History Physical Exam 2 Vital Signs and Narrative: Vital Signs: Last Vital Signs Temp 98.5 F 07/19/23 01:12 Pulse 91 07/19/23 01:12 Resp 16 07/19/23 01:12 BP 106/67 07/19/23 01:12 Pulse Ox 96 07/19/23 01:12 O2 Del Method Room Air 07/19/23 01:12 BMI result Body Mass Index 37.2 Middle-aged female lying in bed in no distress Neck supple, no JVD Regular rate and rhythm, S1-S2 heard Regular breath sounds bilaterally, no wheezing or crackles appreciated Abdomen soft nontender, no guarding, no rigidity Patient is awake, alert and oriented to self, place, time and person ; no focal motor deficit Psych: Anxious No pedal edema Results Labs 07/19/23 01:00 07/19/23 01:00 Labs: Laboratory Results - last 24 hr 07/19/23 07/19/23 01:00 01:14 MCV 94.3 MCH 34.3 H MCHC 36.4 H RDW 16.5 H Plt Count 157 L MPV 10.7 Immature Gran % (Auto) 0.4 Neut % (Auto) 73.9 H Lymph % (Auto) 17.7 L [place] % (Auto) 6.6 Eos % (Auto) 0.6 Baso % (Auto) 0.8 Lymph # (Auto) 0.9 L [place] # (Auto) 0.4 Eos # (Auto) 0.0 Baso # (Auto) 0.0 Abs Immat Gran (auto) 0.02 Absolute Neuts (auto) 3.9 Absolute Nucleated RBC 0.000 Nucleated RBC % (auto) 0.0 PT 11.5 INR 0.9 Anion Gap 19 Estim Creat Clear Calc 141.2 Estimated GFR > 60 Random Glucose 105 Calcium 8.4 Magnesium 1.9 Total Bilirubin 4.5 H AST 203 H ALT 65 H Alkaline Phosphatase 355 H Troponin I High Sens 3.8 Total Protein 6.5 Albumin 3.4 L Lipase 11 Urine Color Yellow Urine Appearance Clear Urine pH 7.0 Ur Specific [place] <= 1.005 Urine Protein Negative Urine Glucose (UA) Negative Urine Ketones Negative Urine Blood Negative Urine Nitrite Negative Ur Leukocyte Esterase Negative Ethyl Alcohol 259 Imaging Radiologist's Impressions: Impressions Cervical Spine CT 07/19/23 00:10 IMPRESSION: 1. No acute intracranial process seen. 2. Mild cerebral volume loss with chronic small vessel ischemic changes. 3. There is no acute cervical spine fracture or traumatic subluxation. There is grade 1 anterolisthesis C4 over C5 with straightening of the expected cervical spine curvature likely secondary to degenerative changes. 4. There is diffuse cervical spondylosis greatest at C5-C6 with multilevel ijeh-gl-nixqcnbl spinal canal and bilateral lrkl-by-yddumfxi neuroforaminal narrowing. Head CT 07/19/23 00:20 IMPRESSION: 1. No acute intracranial process seen. 2. Mild cerebral volume loss with chronic small vessel ischemic changes. 3. There is no acute cervical spine fracture or traumatic subluxation. There is grade 1 anterolisthesis C4 over C5 with straightening of the expected cervical spine curvature likely secondary to degenerative changes. 4. There is diffuse cervical spondylosis greatest at C5-C6 with multilevel lgqj-vz-tqergghd spinal canal and bilateral aine-al-yvdpzrwc neuroforaminal narrowing. Chest X-Ray 07/19/23 00:32 IMPRESSION: Unremarkable examination. Assessment and Plan (1) Alcohol withdrawal: Status: Acute Plan This is a 52-year-old female with pertinent history of alcohol use disorder, opioid use disorder on Suboxone, mood disorder who presents to the emergency department for concerns of alcohol withdrawal. #. Alcohol use disorder concerns of alcohol withdrawal: Initiated on phenobarb protocol the ER. Monitor CIWA. On thiamine and folic acid. Consulted Addiction Team, appreciate assistance #. Generalized weakness with frequent falls likely in the setting of above: Obtaining B12 and folate. Consulting Physical therapy to evaluate and treat #. Mood disorder: Continue home mood stabilizers #. Opioid use disorder on Suboxone #. Mild hyponatremia: Monitor with crystalloid resuscitation #. Hypokalemia: Repleted #. Elevated liver enzymes in the setting of alcohol use disorder Med rec pending DVT prophylaxis: Lovenox Full code Admit as inpatient and will require two night minimum hospital stay for close monitoring of mentation, monitor CIWA, treatment of alcohol withdrawal (as above), which is not possible in a lesser acute setting. Quality Stroke Does the patient have a stroke diagnosis?: No VTE Prior VTE?: No VTE Risk Level:: Medical - moderate - high VTE Device Contraindication: Treatment Not Indicated VTE Drug Contraindication: N/A - Med Ordered
[2023-07-19] MEDS: Potassium Chloride Packet 20 MEQ PACKET 40 MEQ PO (03:18)
[2023-07-19] MEDS: Enoxaparin Sodium 40 MG/0.4 ML SYRINGE SUBCUT (03:18)
[2023-07-19 05:10] LABS: MANUAL DIFF FLAG NO
[2023-07-19] MEDS: PHENobarbitaL sodium 130 MG/ML VIAL IM Q3Hx2 156 MG IM ×2 (05:11→07:51)
[2023-07-19 05:12] LABS: Basophils Percent Auto 0.8 % (0-2); Eosinophils Absolute Auto 0.1 X10*3/uL (0.0-0.4); Hematocrit 26.2 % (37.0-47.0); Hemoglobin 9.5 g/dl (12.0-16.0); Imm Gran Abs Auto 0.01 X10*3/uL (0.00-0.03); Imm Gran Pct Auto 0.2 % (0.0-0.4); Lymphocytes Absolute Auto 0.6 X10*3/uL (1.2-4.9); Lymphocytes Percent Auto 12.2 % (20-40); Mean Corpuscular HGB Conc 36.3 g/dl (31.0-35.0); Mean Corpuscular Hemoglobin 34.7 pg (27.0-33.0); Mean Corpuscular Volume 95.6 fL (80.0-98.0); Mean Platelet Volume 10.2 fL (9.4-12.3); Monocytes Absolute Auto 0.5 X10*3/uL (0.1-1.2); Monocytes Percent Auto 9.6 % (2-11); Neutrophils Absolute Auto 3.9 x10*3/uL (2.0-8.3); Neutrophils Percent Auto 76.2 % (45-73); Platelet Count 158 X10*3/uL (160-400); Red Blood Count 2.74 X10*6/uL (4.20-5.50); Red Cell Distribution Width 17.1 % (11.0-16.0); White Blood Count 5.1 X10*3/uL (4.8-10.8)
[2023-07-19 05:30] LABS: Anion Gap 15 (12-20); Blood Urea Nitrogen 6 mg/dL (9-16); Calcium 8.3 mg/dL (8.4-10.2); Carbon Dioxide 29 mmol/L (22-29); Chloride 92 mmol/L (96-108); Creatinine Clr Calc Pharmacy 128.4; Estimated Glomerular Filt Rate > 60; Glucose Random 106 mg/dL (60-115); Potassium 4.4 mmol/L (3.3-5.1); Sodium 132 mmol/L (135-145)
[2023-07-19] MEDS: Mineral OiL enema 133 ML ENEMA PR (05:53)
[2023-07-19 06:22] LABS: Folate 7.3 ng/mL (> or = 4.0); Vitamin B12 318 pg/mL (200-900)
--- NOTE | 2023-07-19 06:34 | PC.NURSE ---
Pt aox4. Breaths are even and unlabored. Abd soft and non tender. Skin is warm, dry, and pale. Jaundice noted on the scleras. Multiple bruises throughout the entire body. Pt reports these happening as a result of being anemic and helping her with mobility. Pt reports inablity to ambulate and utilizing a wheelchair. Pt reported constipation and requested an enema. Pt reports trying a fleet enema yesterday and today took 8 colace with no relief. Reports being impacted. [place] text sent to Dr. Hunter. Fleet enema ordered. Enema administered with pt having a hard formed BM. Assistance provided to the commode as pt is unsteady on her feet. Pending bed assignment. Pt is aware of plan of care.
--- NOTE | 2023-07-19 08:03 | PC.NURSE ---
PT IS A/O X 3 NO SOB/PAT NOTED SPEAKS IN FULL SENTENCES. MULTI BRUISING TO GEN BODY. NO OPEN AREAS NOTED. CIWA - 9. MED WITH PHENOBARITAL PER ORDERED. NO SEIZURE ACTIVITY NOTED. PT SKIN/ALEXUS EYES YELLOW DISCOLORATION NOTED. PT DENIES ANY PAIN/DISC AT THIS TIME. PT AWARE OF PLAN OF CARE. WILL CONTINUE TO MONITOR.
[2023-07-19] MEDS: 0.9 % Sodium Chloride Flush 3 ML SYRINGE IVFLUSH ×2 (08:07→15:56)
--- NOTE | 2023-07-19 08:35 | PHA.MEDREC ---
Pharmacy Consult ? Medication Reconciliation Pharmacy has completed the medication reconciliation. spoke with patient to confirm medications. Patient reports now being on suboxone injection and no longer on the films, last dose of injection per medical record was 07/03/23. Patient reports taking gabapentin 300mg qam for back pain however last refill was in January of 2023 per claim history.
--- NOTE | 2023-07-19 09:26 | PC.NURSE ---
PT SEEN BY DR. MEDRANO, PT AWARE OF PLAN OF CARE.
[2023-07-19] MEDS: Mupirocin 2 % Oint 22 GM TUBE 1 APPL TOPICAL ×2 (10:33→16:43)
[2023-07-19] MEDS: Mag&Al/Sim/Diphenhyd/Lidocaine 10 ML ORAL.SUSP PO ×3 (10:33→22:07)
--- NOTE | 2023-07-19 10:38 | P.EN_ITS ---
Event Note Date of Service: 07/19/23 Event Note: Patient presented to emergency room due to anxiety, frequent fall, generalized weakness and visual hallucination and admitted to drinking daily for last 4 months, last drink was on the day of presentation patient admitted to [facility] with a diagnosis of alcohol use disorder with high likelihood of alcohol withdrawal. At present patient complaining of mouth so due to broken teeth and irritation, also complaining of facial itching continued to have persistent visual hallucination and weakness. On examination awake alert, mild tremors Multiple dry scabs on chin Oral mucosa moist with irritation lateral margins of tongue, poor dentition Assessment and plan 52-year-old female with pertinent history of alcohol use disorder, opioid use disorder on Suboxone, mood disorder who presents to the emergency department for concerns of alcohol withdrawal. #. Alcohol use disorder and concerns of alcohol withdrawal: cont. phenobarb protocol , Monitor CIWA,continue thiamine and folic acid. Consulted Addiction Team Added magic mouthwash for oral sores and antibacterial cream for facial scabs. #. Generalized weakness with frequent falls likely in the setting of above: CT head showed chronic small vessel changes, C-spine CT showed mi dy-qw-kujjhvgi spinal canal and bilateral lateral qygl-mi-ljsddobe neuro foraminal narrowing. Consulting Physical therapy to evaluate and treat. #. Mood disorder: Continue home mood stabilizers #. Opioid use disorder on Suboxone #. Mild hyponatremia: Sodium improved from 120-132 will hold further IV fluids, likely due to beer potomania follow BMP , avoid rapid correction. #. Hypokalemia: Repleted and normalized #. Elevated liver enzymes in the setting of alcohol use disorder strongly recommend to abstain from alcohol # class 2 obesity will recommend weight loss and exercise. Likely in the setting of alcohol use. Med rec completed DVT prophylaxis: Lovenox Full code Admit as inpatient and will require two night minimum hospital stay for close monitoring of mentation, monitor CIWA, treatment of alcohol withdrawal (as above), which is not possible in a lesser acute setting. Time Spent With Patient Time: Total time managing care of this patient today ____ minutes.
[2023-07-19] MEDS: PHENobarbitaL 15 MG TABLET 45 MG PO (15:57)
[2023-07-19 16:25] LABS: Anion Gap 13 (12-20); Blood Urea Nitrogen 6 mg/dL (9-16); Calcium 8.4 mg/dL (8.4-10.2); Carbon Dioxide 33 mmol/L (22-29); Chloride 90 mmol/L (96-108); Creatinine Clr Calc Pharmacy 153.4; Estimated Glomerular Filt Rate > 60; Glucose Random 115 mg/dL (60-115); Potassium 3.8 mmol/L (3.3-5.1); Sodium 132 mmol/L (135-145)
--- NOTE | 2023-07-19 17:14 | PC.NURSE ---
PT SITTING UP HAVING APPROP CONVERSATION, TOLERATING PO INTAKE, MEDICATED CHARTED,
[2023-07-19] MEDS: PHENobarbitaL 30 MG TABLET 60 MG PO (22:06)
[2023-07-20] MEDS: 0.9 % Sodium Chloride Flush 3 ML SYRINGE IVFLUSH ×3 (02:47→21:04)
[2023-07-20] MEDS: Mag&Al/Sim/Diphenhyd/Lidocaine 10 ML ORAL.SUSP PO ×3 (04:57→21:03)
--- NOTE | 2023-07-20 04:59 | PC.NURSE ---
assumed care of pt at this time. sodium/chloride levels low from 1600 labs; dr. mcdonnell made aware of no repeat orders/ivf at this time. new order for repeat bmp.
[2023-07-20 06:05] VITALS: BP 127/78; PULSE 85; RESP 14; TEMP 36.9; O2SAT 98
[2023-07-20 06:21] LABS: Anion Gap 13 (12-20); Blood Urea Nitrogen 4 mg/dL (9-16); Calcium 8.9 mg/dL (8.4-10.2); Carbon Dioxide 33 mmol/L (22-29); Chloride 92 mmol/L (96-108); Creatinine Clr Calc Pharmacy 138.4; Estimated Glomerular Filt Rate > 60; Glucose Random 86 mg/dL (60-115); Potassium 4.3 mmol/L (3.3-5.1); Sodium 134 mmol/L (135-145)
[2023-07-20] MEDS: PHENobarbitaL 15 MG TABLET 45 MG PO ×2 (09:29→21:03)
[2023-07-20] MEDS: Mupirocin 2 % Oint 22 GM TUBE 1 APPL TOPICAL ×3 (09:39→21:09)
--- NOTE | 2023-07-20 09:49 | P.PNIM_ITS ---
Subjective Subjective Date of Service: 07/20/23 Interval History: Feeling better this morning, less anxiety, weakness and no hallucination complaining of persistent facial rash, irritation and oral sores, has good appetite eating well denies nausea, no vomiting, no abdominal pain, no acute issues overnight. Review of Systems All other system reviewed and negative Physical Exam 2 Vital Signs: Vital Signs: Last Vital Signs Temp 98.4 F 07/20/23 06:05 Pulse 85 07/20/23 06:05 Resp 14 07/20/23 06:05 BP 127/78 07/20/23 06:05 Pulse Ox 98 07/20/23 06:05 O2 Del Method Room Air 07/20/23 06:05 BMI result Body Mass Index 37.2 Const: Other: General alert oriented x3 resting comfortably in no acute distress. Anicteric sclera Neck supple no JVD. CVS regular rate rhythm, Respiratory lungs clear to auscultation, no respiratory distress, no wheeze, no rhonchi. Gastrointestinal abdomen soft, non tender, bowel sounds audible, no guarding , no rigidity. Extremities no edema. Neuro nonfocal , speech clear, no tremors. Skin facial rash chin improving Appropriate affect Objective Data Active Medications Acetaminophen (Acetaminophen 325 Mg Tablet) 650 mg PO Q6H PRN PRN Reason: Pain, Mild (Pain Scale 1-3) Enoxaparin Sodium (Enoxaparin Sodium 40 Mg/0.4 Ml Syringe) 40 mg SUBCUT DAILY [facility] Last Admin: 07/20/23 09:31 Dose: Not Given Documented By: LEDA Non-Admin Reason: Patient Refused Lidocaine/Diphenhydr/Alum/Mg/Simeth (Mag&Al/Sim/Diphenhyd/Lidocaine 10 Ml Oral.Susp) 10 ml PO Q6H [facility]; Protocol Last Admin: 07/20/23 04:57 Dose: 10 ml Documented By: MAYDA Melatonin (Melatonin 3 Mg Tablet) 6 mg PO BEDTIME PRN PRN Reason: Insomnia Ondansetron HCl (Ondansetron Hcl 4 Mg/2 Ml Vial) 4 mg IVPUSH Q8H PRN PRN Reason: Nausea and Vomiting Pharmacy Consult (Consult Rx Etoh Phenob Im/Po) 10 each MISCELLANE ONCE PRN; Protocol PRN Reason: Consult order Phenobarbital (Phenobarbital 15 Mg Tablet) 45 mg PO BID [facility]; Protocol Stop: 07/21/23 09:01 Last Admin: 07/20/23 09:29 Dose: 45 mg Documented By: LEDA Phenobarbital (Phenobarbital 15 Mg Tablet) 15 mg PO BID [facility]; Protocol Stop: 07/23/23 09:01 Phenobarbital (Phenobarbital 15 Mg Tablet) 15 mg PO DAILY [facility]; Protocol Stop: 07/25/23 09:01 Sodium Chloride (0.9 % Sodium Chloride Flush 3 Ml Syringe) 3 ml IVFLUSH QSHIFT [facility] Last Admin: 07/20/23 09:28 Dose: Not Given Documented By: LEDA Non-Admin Reason: IV fell out Labs 07/19/23 04:59 07/20/23 05:08 Labs: Laboratory Results - last 24 hr 07/19/23 07/20/23 16:06 05:08 Anion Gap 13 13 Estim Creat Clear Calc 153.4 138.4 Estimated GFR > 60 > 60 Random Glucose 115 86 Calcium 8.4 8.9 Assessment and Plan (1) Acute hypokalemia: Status: Acute (2) Alcohol withdrawal: Status: Acute (3) Hyponatremia: Status: Acute Plan 52-year-old female with pertinent history of alcohol use disorder, opioid use disorder on Suboxone, mood disorder who presents to the emergency department for concerns of alcohol withdrawal. #. Alcohol use disorder and concerns of alcohol withdrawal: cont. phenobarb protocol , thiamine and folic acid. Consulted Addiction Team on magic mouthwash for oral sores due to poor dentition and antibacterial cream for facial scabs. #. Generalized weakness with frequent falls likely in the setting of above: CT head showed chronic small vessel changes, C-spine CT showed ufsp-fq-peewzftd spinal canal and bilateral lateral iohn-wl-pbewzdqh neuro foraminal narrowing. Follow Physical therapy recommendation #. Mood disorder: Continue home mood stabilizers #. Opioid use disorder on Suboxone #. Mild hyponatremia: Sodium improved from 128-134 s/p IV fluids, likely due to beer potomania follow BMP , avoid rapid correction. #. Hypokalemia: Repleted and normalized #. Elevated liver enzymes in the setting of alcohol use disorder strongly recommend to abstain from alcohol, no abdominal tenderness, follow labs, abdominal ultrasound April 2023 showed Diffusely increased hepatic echotexture suggesting diffuse fatty infiltration but no focal hepatic lesion or biliary ductal dilatation. # class 2 obesity recommend weight loss and exercise. Likely in the setting of alcohol use. DVT prophylaxis: Lovenox Full code Patient will require continued inpatient hospital stay for close monitoring of mentation, monitor CIWA, treatment of alcohol withdrawal (as above), which is not possible in a lesser acute setting. Quality Stroke Does the patient have a stroke diagnosis?: No VTE Prior VTE?: No VTE Risk Level:: Medical - moderate - high VTE Device Contraindication: Treatment Not Indicated VTE Drug Contraindication: N/A - Med Ordered
[2023-07-20 11:33] VITALS: BMI 39.0
[2023-07-20 11:57] VITALS: BP 143/92; PULSE 91; RESP 18; TEMP 36.7; O2SAT 97
--- NOTE | 2023-07-20 13:45 | MHC.CM.PN ---
PT REPORTS SHE LIVES WITH HER AND IS INDEPENDENT WITH CARE SHE HAS A CANE AND WALKER BUT REPORTS SHE ONLY USES THEM WHEN DRINKING, SHE DOES NOT NEED THEM AT BL PT HAS A HCP ON FILE PCP: BIANCA HERNANDEZ DCP: HOME NO SERVICES TO TRANSPORT
[2023-07-20 15:37] VITALS: BP 148/79; PULSE 83; RESP 18; TEMP 37.1; O2SAT 98
[2023-07-20] MEDS: Nicotine Polacrilex 2 MG GUM BUCCAL ×2 (16:15→21:09)
[2023-07-20 19:36] VITALS: BP 122/91; PULSE 97; RESP 18; TEMP 36.8; O2SAT 98
[2023-07-20] MEDS: Acetaminophen 325 MG TABLET 650 MG PO (21:11)
--- NOTE | 2023-07-21 | ECG_ITS ---
Test Reason : CP Blood Pressure : / mmHG Vent. Rate : 139 BPM Atrial Rate : 000 BPM P-R Int : 000 ms QRS Dur : 062 ms QT Int : 298 ms P-R-T Axes : 000 021 -32 degrees QTc Int : 453 ms Artifact in tracing Undetermined rhythm Not interpretable When compared with ECG of 19-JUL-2023 01:00, due to poor quality, cannot compare Referred By: Az Quan Electronically Signed By:JOSE ALFREDO VÁZQUEZ
[2023-07-21 03:54] VITALS: BP 141/78; PULSE 86; RESP 18; TEMP 36.4; O2SAT 98
[2023-07-21] MEDS: Mag&Al/Sim/Diphenhyd/Lidocaine 10 ML ORAL.SUSP PO ×3 (03:57→15:41)
[2023-07-21 06:28] LABS: Alanine Aminotransferase 50 U/L (0-31); Albumin Level 3.2 g/dL (3.5-5.0); Alkaline Phosphatase 320 U/L (39-117); Anion Gap 13 (12-20); Aspartate Amino Transferase 115 U/L (5-31); Bilirubin Direct 2.4 mg/dL (0.0-0.5); Bilirubin Total 3.4 mg/dL (0.0-1.0); Blood Urea Nitrogen 5 mg/dL (9-16); Carbon Dioxide 31 mmol/L (22-29); Chloride 92 mmol/L (96-108); Creatinine Clr Calc Pharmacy 127.2; Estimated Glomerular Filt Rate > 60; Glucose Random 130 mg/dL (60-115); Potassium 4.1 mmol/L (3.3-5.1); Sodium 132 mmol/L (135-145); Total Protein 6.3 g/dL (6.5-8.0)
[2023-07-21 07:12] VITALS: BP 139/88; PULSE 65; RESP 16; TEMP 37.1; O2SAT 96
[2023-07-21] MEDS: PHENobarbitaL 15 MG TABLET 45 MG PO (07:27)
[2023-07-21] MEDS: 0.9 % Sodium Chloride Flush 3 ML SYRINGE IVFLUSH ×3 (07:28→19:50)
[2023-07-21] MEDS: Mupirocin 2 % Oint 22 GM TUBE 1 APPL TOPICAL ×2 (07:28→15:41)
[2023-07-21] MEDS: Gabapentin 300 MG CAPSULE PO (07:56)
[2023-07-21] MEDS: Multivitamin TABLET 1 TAB PO (07:56)
[2023-07-21] MEDS: Aspirin Enteric Coated 81 MG TABLET.DR PO (07:56)
[2023-07-21] MEDS: Thiamine HCL 100 MG TABLET PO (07:57)
[2023-07-21] MEDS: Folic Acid 1 MG TABLET PO (07:57)
[2023-07-21] MEDS: DULoxetine HCl 20 MG CAPSULE.DR 40 MG PO (07:57)
--- NOTE | 2023-07-21 11:46 | HO.ADDICT_ITS ---
History of Present Illness Date of Service: 07/21/2023 Chief Complaint: visual hallucinations Reason for Consult: AUD Sources of Information: patient interviewed and chart reviewed HPI Narrative: Patient is a 52 year old female with severe alcohol use disorder currently medically admitted with alcohol withdrawal following a fall at home. Well known to this sign writer hand and ACS via previous admissions and patient is seen by this sign writer hand outpatient as well at [facility]. Seen in room 383. Awake, alert, engaged in interview. Still disoriented to place and situation, however recognizes this and able to reorient herself. Slight tremor noted. Denies anxiety, but reporting lack of sleep for several days. Numerous bruised noted on her arms and legs, she reports she has several on her back as well--from falling at home while drinking. Stopped Disulfiram at the beginning of June and began drinking again shortly after that. Past Psychiatric History: Denies any psychiatric admissions. Has been sectioned 35 in past and in residential tx for etoh. Denies history of psychosis, ras or violence. Had EMDR after finding her first from hanging Review of Systems Constitutional: Reports as per HPI Diagnostics Vital Signs (24Hr): Vital Signs - 24 hr 07/20/23 11:57 07/20/23 15:37 07/20/23 19:36 Temperature 98.0 F 98.8 F 98.2 F Pulse Rate 91 83 97 Respiratory Rate 18 18 18 Blood Pressure 143/92 H 148/79 H 122/91 H Pulse Oximetry 97 98 98 Oxygen Delivery Method Room Air Room Air Room Air 07/21/23 03:54 07/21/23 07:12 Temperature 97.5 F 98.7 F Pulse Rate 86 65 Respiratory Rate 18 16 Blood Pressure 141/78 H 139/88 Pulse Oximetry 98 96 Oxygen Delivery Method Room Air Room Air BMI result Body Mass Index 39.0 Labs 07/19/23 04:59 07/21/23 05:32 Labs: Laboratory Results - last 48 hr 07/19/23 07/20/23 07/21/23 16:06 05:08 05:32 Hold Purple Top SEE NOTE Sodium 132 L 134 L 132 L Potassium 3.8 4.3 4.1 Chloride 90 L 92 L 92 L Carbon Dioxide 33 H 33 H 31 H Anion Gap 13 13 13 BUN 6 L 4 L 5 L Creatinine 0.46 L 0.51 0.57 Estim Creat Clear Calc 153.4 138.4 127.2 Estimated GFR > 60 > 60 > 60 Random Glucose 115 86 130 H Calcium 8.4 8.9 9.0 Total Bilirubin 3.4 H Direct Bilirubin 2.4 H AST 115 H ALT 50 H Alkaline Phosphatase 320 H Total Protein 6.3 L Albumin 3.2 L Imaging Radiology Impressions: ITS Impressions Cervical Spine CT 07/19/23 00:10 IMPRESSION: 1. No acute intracranial process seen. 2. Mild cerebral volume loss with chronic small vessel ischemic changes. 3. There is no acute cervical spine fracture or traumatic subluxation. There is grade 1 anterolisthesis C4 over C5 with straightening of the expected cervical spine curvature likely secondary to degenerative changes. 4. There is diffuse cervical spondylosis greatest at C5-C6 with multilevel wufv-bn-xszhwsdy spinal canal and bilateral wojg-oe-dnjypbff neuroforaminal narrowing. Head CT 07/19/23 00:20 IMPRESSION: 1. No acute intracranial process seen. 2. Mild cerebral volume loss with chronic small vessel ischemic changes. 3. There is no acute cervical spine fracture or traumatic subluxation. There is grade 1 anterolisthesis C4 over C5 with straightening of the expected cervical spine curvature likely secondary to degenerative changes. 4. There is diffuse cervical spondylosis greatest at C5-C6 with multilevel vhga-jz-vgfrzbko spinal canal and bilateral wkhs-ou-ozqoawyk neuroforaminal narrowing. Chest X-Ray 07/19/23 00:32 IMPRESSION: Unremarkable examination. Mental Status Exam Mental Status Exam Patient Appearance: Disheveled Patient Orientation: Person Level of Consciousness: Awake and Alert Patient Behavior: Talkative Thought Content: positive for Tangential Judgement: Poor Medications Medications Current Medications Acetaminophen (Acetaminophen 325 Mg Tablet) 650 mg PO Q6H PRN PRN Reason: Pain, Mild (Pain Scale 1-3) Last Admin: 07/20/23 21:11 Dose: 650 mg Aspirin (Aspirin Enteric Coated 81 Mg Tablet.) 81 mg PO DAILY [facility] Last Admin: 07/21/23 07:56 Dose: 81 mg Duloxetine HCl (Duloxetine Hcl 20 Mg Capsule.) 40 mg PO DAILY [facility] Last Admin: 07/21/23 07:57 Dose: 40 mg Enoxaparin Sodium (Enoxaparin Sodium 40 Mg/0.4 Ml Syringe) 40 mg SUBCUT DAILY [facility] Last Admin: 07/21/23 07:33 Dose: Not Given Folic Acid (Folic Acid 1 Mg Tablet) 1 mg PO DAILY [facility] Last Admin: 07/21/23 07:57 Dose: 1 mg Gabapentin (Gabapentin 300 Mg Capsule) 300 mg PO DAILY [facility] Last Admin: 07/21/23 07:56 Dose: 300 mg Lidocaine/Diphenhydr/Alum/Mg/Simeth (Mag&Al/Sim/Diphenhyd/Lidocaine 10 Ml Oral.Susp) 10 ml PO Q6H [facility]; Protocol Last Admin: 07/21/23 10:56 Dose: 10 ml Melatonin (Melatonin 3 Mg Tablet) 6 mg PO BEDTIME PRN PRN Reason: Insomnia Multivitamins/Vitamin C (Multivitamin Tablet) 1 tab PO DAILY [facility] Last Admin: 07/21/23 07:56 Dose: 1 tab Mupirocin (Mupirocin 2 % Oint 22 Gm Tube) 1 appl TOPICAL TID [facility]; Protocol Last Admin: 07/21/23 07:28 Dose: 1 appl Nicotine Polacrilex (Nicotine Polacrilex 2 Mg Gum) 2 mg BUCCAL Q2H PRN PRN Reason: Nicotine Cravings Last Admin: 07/20/23 21:09 Dose: 2 mg Ondansetron HCl (Ondansetron Hcl 4 Mg/2 Ml Vial) 4 mg IVPUSH Q8H PRN PRN Reason: Nausea and Vomiting Pharmacy Consult (Consult Rx Etoh Phenob Im/Po) 10 each MISCELLANE ONCE [facility]; Protocol PRN Reason: Consult order Phenobarbital (Phenobarbital 15 Mg Tablet) 15 mg PO BID [facility]; Protocol Stop: 07/23/23 09:01 Phenobarbital (Phenobarbital 15 Mg Tablet) 15 mg PO DAILY [facility]; Protocol Stop: 07/25/23 09:01 Sodium Chloride (0.9 % Sodium Chloride Flush 3 Ml Syringe) 3 ml IVFLUSH QSHIFT [facility] Last Admin: 07/21/23 07:28 Dose: 3 ml Thiamine HCl (Thiamine Hcl 100 Mg Tablet) 100 mg PO DAILY [facility] Last Admin: 07/21/23 07:57 Dose: 100 mg Allergies Allergies Allergy/AdvReac Type Severity Reaction Status Date / Time No Known Allergies Allergy Verified 07/18/23 21:53 Assessment & Plan Assessment & Plan (1) Alcohol withdrawal: Status: Acute Code(s): F10.939 - Alcohol use, unspecified with withdrawal, unspecified Assessment and Plan: * phenobarbitol protocol in place (2) Alcohol use disorder, severe, dependence: Status: Acute Code(s): F10.20 - Alcohol dependence, uncomplicated Assessment and Plan: * will follow up prior to discharge, considering restarting Disulfiram Total time managing care of this patient today __30__ minutes. PMFSH Past Medical History Medical History Alcohol withdrawal syndrome Abscess of axilla, right Rash Encounter for monitoring Suboxone maintenance therapy Hypertension Alcohol use disorder, severe, dependence Opioid use disorder Alcohol abuse Family History Family History Father Lung cancer Surgical History Surgical History History of total knee arthroplasty History of gastric surgery Social History Social History Household Members: Spouse Housing: House Do you presently have visiting nurse or other home services: No Unable to assess alcohol history related to: Unknown Alcohol intake: current Alcohol intake frequency: 3 or more drinks per day Alcohol type: wine and hard liquor Comment: refuses fall risk alarms Patient Tobacco Use Status: Former Tobacco user Quit Date: 2022 Tobacco use type: Cigarette Years Smoked: 2 Smoked in Last 30 Days: No Patient Interested in Nicotine Replacement: No Patient Given Instructions on How to Stop Smoking: No Second Hand Smoke Exposure: No Use of substances other than those prescribed or required for medical reasons: No Currently Displaying Signs/Symptoms of Drug Intoxication Withdrawal: No Any prior treatment program specific to substance use: No Have you been hit, kicked, punched, or otherwise hurt by someone within the past year? If so, by whom?: No Do you feel safe in your current relationship?: Yes Is there a partner from a previous relationship who is making you feel unsafe now?: No Are you made to feel afraid or neglected: No Advance Directives: No Advance Directives Information Provided: No Advance Directives on File: No Do you have thoughts of harming others: None Do you have a plan to hurt others: No Plan Recently lost weight without trying: No Eating poorly because of decreased appetite: No Nutrition Risks: Dental problems Patient : No : No Poor oral hygiene: Yes service: No Current occupational status: employed
--- NOTE | 2023-07-21 13:05 | PC.NURSE ---
Patient refusing bed alarm and telesitter throughout shift. If bed alarm is placed on, patient will shut it off herself. Patient has unsteady gate, with walker. Patient educated on need for bed alarm and using call hazel when needing to get OOB. Patient verbalized understanding, but still refusing bed alarm and is not consistent with using call hazel. Miriam Jamison, nurse manager small business, made aware. More frequent room checks completed. Call hazel at patients bedside, all needs met.
[2023-07-21] MEDS: PHENobarbitaL sodium 130 MG/ML VIAL IM (13:24)
--- NOTE | 2023-07-21 13:26 | HO.PM.IMPN ---
Subjective Subjective Date of Service: 07/21/23 Interval History: Patient complaining of unsteady gait, insisting that she is in hospital for 8 days although admitted 2 days ago, no visual hallucination CIWA is 9 related to anxiety agitation and tactile disturbances, Tolerating diet, no nausea, no vomiting, no abdominal pain Review of Systems All other system reviewed and negative. Physical Exam Vital Signs: Vital Signs: Last Vital Signs Temp 98.7 F 07/21/23 07:12 Pulse 65 07/21/23 07:12 Resp 16 07/21/23 07:12 BP 139/88 07/21/23 07:12 Pulse Ox 96 07/21/23 07:12 O2 Del Method Room Air 07/21/23 07:12 BMI result Body Mass Index 39.0 Const: Other: General mildly confused, resting comfortably, in no acute distress. Anicteric sclera Neck supple no JVD. CVS regular rate rhythm, Respiratory lungs clear to auscultation, no respiratory distress, no wheeze, no rhonchi. Gastrointestinal abdomen soft, non tender, bowel sounds audible, no guarding , no rigidity. Extremities no edema. Neuro nonfocal , speech clear, no tremors. Skin facial rash chin improving Psych mild anxiety agitation Objective Data Active Medications Acetaminophen (Acetaminophen 325 Mg Tablet) 650 mg PO Q6H PRN PRN Reason: Pain, Mild (Pain Scale 1-3) Last Admin: 07/20/23 21:11 Dose: 650 mg Documented By: BARBARA Aspirin (Aspirin Enteric Coated 81 Mg Tablet.) 81 mg PO DAILY [facility] Last Admin: 07/21/23 07:56 Dose: 81 mg Documented By: CHRISTINA Duloxetine HCl (Duloxetine Hcl 20 Mg Capsule.) 40 mg PO DAILY [facility] Last Admin: 07/21/23 07:57 Dose: 40 mg Documented By: CHRISTINA Enoxaparin Sodium (Enoxaparin Sodium 40 Mg/0.4 Ml Syringe) 40 mg SUBCUT DAILY [facility] Last Admin: 07/21/23 07:33 Dose: Not Given Documented By: CHRISTINA Non-Admin Reason: Patient Refused Folic Acid (Folic Acid 1 Mg Tablet) 1 mg PO DAILY [facility] Last Admin: 07/21/23 07:57 Dose: 1 mg Documented By: CHRISTINA Gabapentin (Gabapentin 300 Mg Capsule) 300 mg PO DAILY [facility] Last Admin: 07/21/23 07:56 Dose: 300 mg Documented By: CHRISTINA Lidocaine/Diphenhydr/Alum/Mg/Simeth (Mag&Al/Sim/Diphenhyd/Lidocaine 10 Ml Oral.Susp) 10 ml PO Q6H [facility]; Protocol Last Admin: 07/21/23 10:56 Dose: 10 ml Documented By: CHRISTINA Melatonin (Melatonin 3 Mg Tablet) 6 mg PO BEDTIME PRN PRN Reason: Insomnia Multivitamins/Vitamin C (Multivitamin Tablet) 1 tab PO DAILY [facility] Last Admin: 07/21/23 07:56 Dose: 1 tab Documented By: CHRISTINA Mupirocin (Mupirocin 2 % Oint 22 Gm Tube) 1 appl TOPICAL TID [facility]; Protocol Last Admin: 07/21/23 07:28 Dose: 1 appl Documented By: CHRISTINA Nicotine Polacrilex (Nicotine Polacrilex 2 Mg Gum) 2 mg BUCCAL Q2H PRN PRN Reason: Nicotine Cravings Last Admin: 07/20/23 21:09 Dose: 2 mg Documented By: BARBARA Ondansetron HCl (Ondansetron Hcl 4 Mg/2 Ml Vial) 4 mg IVPUSH Q8H PRN PRN Reason: Nausea and Vomiting Pharmacy Consult (Consult Rx Etoh Phenob Im/Po) 10 each MISCELLANE ONCE [facility]; Protocol PRN Reason: Consult order Phenobarbital (Phenobarbital 15 Mg Tablet) 15 mg PO BID [facility]; Protocol Stop: 07/23/23 09:01 Phenobarbital (Phenobarbital 15 Mg Tablet) 15 mg PO DAILY [facility]; Protocol Stop: 07/25/23 09:01 Phenobarbital Sodium (Phenobarbital Sodium 130 Mg/Ml Vial) 130 mg IM ONCE ONE Stop: 07/21/23 13:31 Last Admin: 07/21/23 13:24 Dose: 130 mg Documented By: CHRISTINA Sodium Chloride (0.9 % Sodium Chloride Flush 3 Ml Syringe) 3 ml IVFLUSH QSHIFT [facility] Last Admin: 07/21/23 07:28 Dose: 3 ml Documented By: CHRISTINA Thiamine HCl (Thiamine Hcl 100 Mg Tablet) 100 mg PO DAILY [facility] Last Admin: 07/21/23 07:57 Dose: 100 mg Documented By: CHRISTINA Labs 07/19/23 04:59 07/21/23 05:32 Labs: Laboratory Results - last 24 hr 07/21/23 05:32 Hold Purple Top SEE NOTE Anion Gap 13 Estim Creat Clear Calc 127.2 Estimated GFR > 60 Random Glucose 130 H Calcium 9.0 Total Bilirubin 3.4 H Direct Bilirubin 2.4 H AST 115 H ALT 50 H Alkaline Phosphatase 320 H Total Protein 6.3 L Albumin 3.2 L Assessment and Plan (1) Acute hypokalemia: Status: Acute (2) Alcohol withdrawal: Status: Acute (3) Hyponatremia: Status: Acute Plan 52-year-old female with pertinent history of alcohol use disorder, opioid use disorder on Suboxone, mood disorder who presents to the emergency department for concerns of alcohol withdrawal. #. Alcohol use disorder and concerns of alcohol withdrawal: CIWA 9 with mild confusion anxiety, agitation Additional 1 time dose of IM phenobarb given, cont. phenobarb protocol , thiamine and folic acid. Follow Addiction Team input Continue magic mouthwash for oral sores due to poor dentition and antibacterial cream for facial scabs. #. Generalized weakness with frequent falls likely in the setting of above: CT head showed chronic small vessel changes, C-spine CT showed vzkn-tc-tjexfrnb spinal canal and bilateral lateral jckw-eu-evbrttdi neuro foraminal narrowing. PT recommends home with family support #. Mood disorder: Continue home mood stabilizers #. Opioid use disorder on Suboxone #. Mild hyponatremia: Sodium improved from 128-132 s/p IV fluids, likely due to beer potomania follow BMP , avoid rapid correction. #. Hypokalemia: Repleted and normalized #. Elevated liver enzymes in the setting of alcohol use disorder strongly recommend to abstain from alcohol, no abdominal tenderness, follow labs, abdominal ultrasound April 2023 showed Diffusely increased hepatic echotexture suggesting diffuse fatty infiltration but no focal hepatic lesion or biliary ductal dilatation. # class 2 obesity recommend weight loss and exercise. Likely in the setting of alcohol use. DVT prophylaxis: Lovenox Full code Patient will require continued inpatient hospital stay for close monitoring of mentation, monitor CIWA, treatment of alcohol withdrawal (as above), which is not possible in a lesser acute setting. Quality Stroke Does the patient have a stroke diagnosis?: No VTE Prior VTE?: No VTE Risk Level:: Medical - moderate - high VTE Device Contraindication: Treatment Not Indicated VTE Drug Contraindication: N/A - Med Ordered
[2023-07-21 15:45] VITALS: BP 144/94; PULSE 95; RESP 18; TEMP 36.4; O2SAT 95
--- NOTE | 2023-07-21 16:11 | HO.WOUND ---
Wound Consult: Initial 52yr old F? admitted to [facility] [place] on 07/19/23 - See progress notes and H&P for detailed history.? Wound consult placed for face lesions.? Patient agreeable to assessment and photo documentation.? Patient was seen in recent previous admissions and diagnosed with Neurodermatitis. Todays lesions are presenting in similar form todays as in past admissions. Patient reports she is not able to stop herself from picking at the wounds - todays consultation she is requesting use of hydrocolloid that was used on previous admissions. While at beside patient touched and picked at face constantly. Currently she reports she is using Mupurocin ointment to the lesions. She reports little to no improvement since starting topical ointment because oer her own account she continued to pick at the sites. Discussed Hydrocolloid occlusive dressing - she was agreeable. Lesions washed and Hydrocolloid was applied - Hydrocolloid can stay in place for up to 3 days however given she was using ointment may not stay in place until ointment is no longer on skin - she reports understanding. Face Lesions Etiology: Neurodermatitis??Present on Admission Measurements: various sizes Wound Bed: appear partial thickness tissue loss - dry wound beds Drainage / Odor: none noted at the time of my assessment- -serosang noted on pillow linen Edges: ? irregular and attached Susan wound: Intact tissue - ? No Induration, Fluctuance or Warmth noted - No s/s of active infection Pain: denies Goals of Treatment: ? Occlusive dressing and moist wound healing Recommendations: 1. Face - Cleanse with Ph balanced soap, dry well. Apply cut to size Hydrocolloid dressing - may leave in place for up to 3days. Goal is keep moist and covered. Re-consult wound care Nurse for wound deterioration or wound changes.
[2023-07-21 19:45] VITALS: PULSE 119; RESP 20; TEMP 36.6; O2SAT 93
[2023-07-21] MEDS: LORazepam 2 MG/ML VIAL 1 MG IVPUSH (19:49)
--- NOTE | 2023-07-21 20:00 | PM.EVENT ---
Event Note Date of Service: 07/21/23 Event Note: Contacted by nursing to notify patient was screaming. Security team was contacted. I spoke with patient and stating she is anxious and did not want to be sectioned. Also, pt was saying she has not slept for the last several days and was upset because there were many people around her. Did not look disoriented to me and became cooperative and agreeable with plan. Reassurance was provided and offered her anti-anxiolytics IV which she accepted. Pt was advised to avoid getting out of bed by herself to avoid traumatic falls as her gait has been unsteady. Time Spent With Patient Time: Total time managing care of this patient today ____ minutes.
[2023-07-21] MEDS: Haloperidol Lactate 5 MG/ML VIAL IM (21:10)
[2023-07-21] MEDS: PHENobarbitaL 15 MG TABLET PO (21:12)
--- NOTE | 2023-07-21 21:17 | PM.EVENT ---
Event Note Date of Service: 07/21/23 Event Note: 8:51 PM - Contacted again to notify patient wanted to leave AMA. Security team was contacted again as the patient was screaming to staff and stating her abuses her. Also, she was asking us to promise her to drop her at her house. Despite trying to calm her down and asking her to stay in silence (as she was disturbing the rest of other patients. She continued screaming, uncooperative and verbally aggressive. She told staff she is not a patient and acted likely we wanted to hurt her. Administration of Haldol 5 mg IM was done for the safety of other patients, the staff and her own. I will place consult to psychiatry and social work services. 9:54 PM - Patient became very aggressive. Exhibits paranoiac thoughts. Security team was contacted again. Zyprexa 10 mg IV and Ativan 2 mg IV given. Restraints (4 limbs) applied. 11:38 PM - ICU team contacted and patient has been accepted as the patient will require contact observation and sedation (via IV infusion). Time Spent With Patient Time: Total time managing care of this patient today ____ minutes.
[2023-07-21] MEDS: OLANZapine 10 MG VIAL IM (22:02)
[2023-07-21 22:06] VITALS: BP 142/92; PULSE 110; RESP 20; TEMP 36.1; O2SAT 94
[2023-07-21] MEDS: LORazepam 2 MG/ML VIAL IVPUSH (22:09)
[2023-07-21] MEDS: Lactated Ringers 1,000 ML 999 ML IV (22:59)
[2023-07-21 23:09] VITALS: BP 146/84; PULSE 116; RESP 17; TEMP 36.6; O2SAT 98
[2023-07-21 23:23] LABS: MANUAL DIFF FLAG NO
[2023-07-21 23:25] LABS: Basophils Absolute Auto 0.1 X10*3/uL (0.0-0.2); Basophils Percent Auto 1.1 % (0-2); Eosinophils Absolute Auto 0.1 X10*3/uL (0.0-0.4); Eosinophils Percent Auto 1.6 % (0-4); Hematocrit 29.5 % (37.0-47.0); Imm Gran Abs Auto 0.02 X10*3/uL (0.00-0.03); Imm Gran Pct Auto 0.5 % (0.0-0.4); Lymphocytes Absolute Auto 0.6 X10*3/uL (1.2-4.9); Lymphocytes Percent Auto 12.5 % (20-40); Mean Corpuscular HGB Conc 33.9 g/dl (31.0-35.0); Mean Corpuscular Hemoglobin 35.7 pg (27.0-33.0); Mean Corpuscular Volume 105.4 fL (80.0-98.0); Monocytes Absolute Auto 0.5 X10*3/uL (0.1-1.2); Monocytes Percent Auto 10.4 % (2-11); Neutrophils Absolute Auto 3.3 x10*3/uL (2.0-8.3); Neutrophils Percent Auto 73.9 % (45-73); Platelet Count 171 X10*3/uL (160-400); Red Cell Distribution Width 16.7 % (11.0-16.0); White Blood Count 4.4 X10*3/uL (4.8-10.8)
[2023-07-21 23:48] LABS: Lactic Acid 1.4 mmol/L (0.5-2.0)
[2023-07-21 23:53] LABS: Alanine Aminotransferase 48 U/L (0-31); Albumin Level 3.4 g/dL (3.5-5.0); Alkaline Phosphatase 277 U/L (39-117); Anion Gap 14 (12-20); Aspartate Amino Transferase 97 U/L (5-31); Bilirubin Total 2.9 mg/dL (0.0-1.0); Blood Urea Nitrogen 5 mg/dL (9-16); Calcium 9.2 mg/dL (8.4-10.2); Carbon Dioxide 27 mmol/L (22-29); Chloride 96 mmol/L (96-108); Creatinine Clr Calc Pharmacy 136.9; Estimated Glomerular Filt Rate > 60; Glucose Random 125 mg/dL (60-115); Magnesium 1.6 mg/dL (1.6-2.6); Potassium 3.5 mmol/L (3.3-5.1); Sodium 133 mmol/L (135-145); Total Protein 6.5 g/dL (6.5-8.0); Troponin-I High Sensitivity 2.7 ng/L (<3.5-17.0)
[2023-07-22] VITALS (25 sets, daily range): BP systolic 88–168; BP diastolic 41–90; PULSE 59–111; RESP 21–31; TEMP 36.8–37.1; O2SAT 90–100; BMI 38.7
--- NOTE | 2023-07-22 00:07 | W.PM.CCCN ---
History of Present Illness Data of Consult Service Date: 07/22/23 Requesting physician: Lidia Perry Primary Care Provider: Unknown Physician HPI Reason for consult: ETOH withdrawal ?The patient is a 52-year-old female with a past medical history of polysubstance abuse ( alcohol and opioid Suboxone ), mood disorder who? presented to the emergency department on 07/18 24? post fall ? and alcohol abuse and admitted to Hospital Medicine for concerns of alcohol withdrawal.? Started on CIWA protocol and phenobarb protocol. Tonight the patient became more altered, hallucinations and aggressive toward staff, high CIWAS score despite multiple? sedatives on administration including phenobarb protocol.? ? Patient will be? transferred to ICU for? alcohol withdrawal with delirium tremens requiring Precedex drip.? Review of Systems Review of Systems: Yes Unobtainable due to mental condition and Unobtainable due to mental status PMFSH Past Medical History Medical History Alcohol withdrawal syndrome Abscess of axilla, right Rash Encounter for monitoring Suboxone maintenance therapy Hypertension Alcohol use disorder, severe, dependence Opioid use disorder Alcohol abuse Family History Family History Father Lung cancer Surgical History Surgical History History of total knee arthroplasty History of gastric surgery Social History Social History Household Members: Spouse Housing: House Do you presently have visiting nurse or other home services: No Unable to assess alcohol history related to: Unknown Alcohol intake: current Alcohol intake frequency: 3 or more drinks per day Alcohol type: wine and hard liquor Comment: refuses fall risk alarms Patient Tobacco Use Status: Former Tobacco user Quit Date: 2022 Tobacco use type: Cigarette Years Smoked: 2 Smoked in Last 30 Days: No Patient Interested in Nicotine Replacement: No Patient Given Instructions on How to Stop Smoking: No Second Hand Smoke Exposure: No Use of substances other than those prescribed or required for medical reasons: No Currently Displaying Signs/Symptoms of Drug Intoxication Withdrawal: No Any prior treatment program specific to substance use: No Have you been hit, kicked, punched, or otherwise hurt by someone within the past year? If so, by whom?: No Do you feel safe in your current relationship?: Yes Is there a partner from a previous relationship who is making you feel unsafe now?: No Are you made to feel afraid or neglected: No Advance Directives: No Advance Directives Information Provided: No Advance Directives on File: No Do you have thoughts of harming others: None Do you have a plan to hurt others: No Plan Recently lost weight without trying: No Eating poorly because of decreased appetite: No Nutrition Risks: Dental problems Patient : No : No Poor oral hygiene: Yes service: No Current occupational status: employed Meds Allergies Allergy/AdvReac Type Severity Reaction Status Date / Time No Known Allergies Allergy Verified 07/18/23 21:53 Active Medications: Current Medications Acetaminophen (Acetaminophen 325 Mg Tablet) 650 mg PO Q6H PRN PRN Reason: Pain, Mild (Pain Scale 1-3) Last Admin: 07/20/23 21:11 Dose: 650 mg Aspirin (Aspirin Enteric Coated 81 Mg Tablet.) 81 mg PO DAILY [facility] Last Admin: 07/21/23 07:56 Dose: 81 mg Duloxetine HCl (Duloxetine Hcl 20 Mg Capsule.) 40 mg PO DAILY [facility] Last Admin: 07/21/23 07:57 Dose: 40 mg Enoxaparin Sodium (Enoxaparin Sodium 40 Mg/0.4 Ml Syringe) 40 mg SUBCUT DAILY [facility] Last Admin: 07/21/23 07:33 Dose: Not Given Folic Acid (Folic Acid 1 Mg Tablet) 1 mg PO DAILY [facility] Last Admin: 07/21/23 07:57 Dose: 1 mg Gabapentin (Gabapentin 300 Mg Capsule) 300 mg PO DAILY [facility] Last Admin: 07/21/23 07:56 Dose: 300 mg Lidocaine/Diphenhydr/Alum/Mg/Simeth (Mag&Al/Sim/Diphenhyd/Lidocaine 10 Ml Oral.Susp) 10 ml PO Q6H [facility]; Protocol Last Admin: 07/21/23 21:13 Dose: Not Given Melatonin (Melatonin 3 Mg Tablet) 6 mg PO BEDTIME PRN PRN Reason: Insomnia Multivitamins/Vitamin C (Multivitamin Tablet) 1 tab PO DAILY [facility] Last Admin: 07/21/23 07:56 Dose: 1 tab Nicotine Polacrilex (Nicotine Polacrilex 2 Mg Gum) 2 mg BUCCAL Q2H PRN PRN Reason: Nicotine Cravings Last Admin: 07/20/23 21:09 Dose: 2 mg Pharmacy Consult (Consult Rx Etoh Phenob Im/Po) 10 each MISCELLANE ONCE PRN; Protocol PRN Reason: Consult order Phenobarbital (Phenobarbital 15 Mg Tablet) 15 mg PO BID [facility]; Protocol Stop: 07/23/23 09:01 Last Admin: 07/21/23 21:12 Dose: 15 mg Phenobarbital (Phenobarbital 15 Mg Tablet) 15 mg PO DAILY [facility]; Protocol Stop: 07/25/23 09:01 Sodium Chloride (0.9 % Sodium Chloride Flush 3 Ml Syringe) 3 ml IVFLUSH QSHIFT [facility] Last Admin: 07/21/23 19:50 Dose: 3 ml Thiamine HCl (Thiamine Hcl 100 Mg Tablet) 100 mg PO DAILY [facility] Last Admin: 07/21/23 07:57 Dose: 100 mg Home Medications ?Medication ?Instructions ?Recorded ?Confirmed ?Last Taken ?Type gabapentin 300 mg capsule 300 mg PO DAILY 04/28/23 07/19/23 05/13/23 History ibuprofen 600 mg tablet 600 mg PO DAILY PRN Pain (Scale 04/28/23 07/19/23 05/13/23 History Score 4-6) meclizine 12.5 mg tablet 12.5 mg PO TID PRN Nausea And 04/28/23 07/19/23 05/13/23 History Vomiting multivitamin 1 tab PO DAILY 04/28/23 07/19/23 05/13/23 History duloxetine 40 mg capsule,delayed 40 mg PO DAILY 05/13/23 07/19/23 05/13/23 History release Physical Exam Vital Signs: Vital Signs: Last Vital Signs Temp 97.8 F 07/21/23 23:09 Pulse 116 H 07/21/23 23:09 Resp 17 07/21/23 23:09 BP 146/84 H 07/21/23 23:09 Pulse Ox 98 07/21/23 23:09 O2 Del Method Nasal Cannula 07/21/23 23:09 O2 Flow Rate 2 07/21/23 23:09 BMI result Body Mass Index 39.0 ?General:? Alert x self only, no acute resp distress.? Speaking full sentences.? Anxious, hallucinating, ?HEENT:? Head is normocephalic, atraumatic, pupils equal round reactive to light accommodation bilaterally.? Extraocular movements appear intact.? Buccal mucosa is dry, Neck is supple. ?Cardiac:? Clear S1-S2, no murmurs rubs or gallops. ?Pulmonary:? Clear to auscultation, no wheezes, rales or rhonchi. ?Abdomen:? ?Abdomen soft, non-tender, non-distended. Normal bowel sounds. No pulsatile mass. No hepatosplenomegaly. ?Musculoskeletal:? Moving all 4 extremities randomly.? The strength is 5/5 bilaterally and throughout all 4 extremities.? Gait not assessed at this point. ?Neurologic:? Patient alert times self only, anxious and hallucinating being aggressive toward staff, no other focal deficits ?Skin:? Multiple abrasions and bruises throughout body. Skin is mildly Jaundiced Vascular:? 2+ pulses upper and lower extremities distally.? Results Labs 07/22/23 05:37 07/22/23 05:37 Labs: Short CBC 07/21/23 Range/Units 23:03 WBC 4.4 L (4.8-10.8) X10*3/uL Hgb 10.0 L (12.0-16.0) g/dl Hct 29.5 L (37.0-47.0) % Plt Count 171 (160-400) X10*3/uL BMP 07/21/23 07/21/23 05:32 23:03 Sodium 132 L 133 L Potassium 4.1 3.5 Chloride 92 L 96 Carbon Dioxide 31 H 27 BUN 5 L 5 L Creatinine 0.57 0.53 Calcium 9.0 9.2 Liver Function 07/21/23 07/21/23 Range/Units 05:32 23:03 Total Bilirubin 3.4 H 2.9 H (0.0-1.0) mg/dL Direct Bilirubin 2.4 H (0.0-0.5) mg/dL AST 115 H 97 H (5-31) U/L ALT 50 H 48 H (0-31) U/L Alkaline Phosphatase 320 H 277 H (39-117) U/L Albumin 3.2 L 3.4 L (3.5-5.0) g/dL Assessment and Plan (1) Alcohol withdrawal syndrome, with delirium: Status: Acute (2) Delirium tremens: Status: Acute (3) Transaminitis: Status: Acute (4) Thrombocytopenia: Status: Acute Plan 52-year-old female with a past medical history of polysubstance abuse ( alcohol and opioid Suboxone ), mood disorder transferred to ICU for alcohol withdrawal syndrome with delirium tremens requiring precedex drip Neuro: Alcohol withdrawal syndrome with delirium tremens: ? patient in DTs despite being on phenobarb protocol and multiple sedative medications.? will initiate Precedex drip for alcohol withdrawal syndrome.? Continue CIWA Cardiac:? ?Hypotension: Hypotension related to sedation from Precedex drip, no evidence of severe infection Pulmonary:? No acute issues Renal: ?No acute issues Endo:? No acute issues.? GI:? ?transaminitis:? from alcohol abuse,? downtrending Heme/Onc:? Thrombocytoepnia? likely due to alcohol intake, no signs of bleeding? and infection at this time.? Psych:? Polysubstance abuse: Abuse medicine consult in place. Appreciate recommendations Miscellaneous: Prophylaxis:? Lovenox Code status:? ? FULL CODE Critical care time: x 60 min of critical care time ?Case discussed with attending ?
[2023-07-22] MEDS: dexmedeTOMIDidine HCL/NS 400 MCG/100 ML INFUS..BTL 25 MCG IVCONT (00:20)
[2023-07-22 00:30] LABS: Phosphorus 3.2 mg/dL (2.7-4.5)
[2023-07-22] MEDS: Potassium Chloride Packet 20 MEQ PACKET 40 MEQ PO (00:55)
--- NOTE | 2023-07-22 02:04 | PC.NURSE ---
Approximately around 19:30, pt started screaming towards staff, being accusatory, confused, pt thinking shes at home. Pt refusing bed alarm and tele-sitter. Pt placed on high fall due to recent falls at home and alcohol withdrawals. Security was called at bedside. Pt was redirected multiple times by staff with no effect, pt became agitated, and continue screaming loudly. MD Toby Perry was notified of the situation. One time dose of Ativan 1mg IV was given to pt per MAR with no effect. At 20:51, pt was trying to leave AMA, screaming towards staff, wandering in the hallway. pt was redirected back to the room but continue to scream, uncooperative and verbally aggressive. Security and MD Toby Perry was called to pt's bedside. Pt told staff that she wasn't a patient and the staff was hurting her. Pt was redirected to calm down but with no effect. One time dose of Haldol 5mg IM was ordered and given to pt per MAR with no effect. LOURDES phenobarb 15mg PO was also given to pt. Orders for psych and social work services was consulted. One hour later, pt became more aggressive, agitated, and uncooperative towards staff. Pt was having paranoid thoughts. Code assist was called during this time, Security, nursing lunchroom food service supervisor, and MD Toby Perry was at pt's bedside. MD Toby Perry ordered one time dose of Zyprexa 10mg IM & Ativan 2mg IV with no effect. Non-behavioral restraints was ordered and applied to bilateral wrist & bilateral ankle. Pt's vtals was taken after the restraints were placed. 1:1 sitter at bedside. Bed in the lowest postion and camera in place. Around 22:30, pt's O2 dropped to the low 80's on RA, HR over 120s, and pale color to pt's face. MD Toby Perry was notified of the pt's symptoms. Pt was placed on 2L O2 via NC. EKG, monitoring analyst, labs and one time bolus of LR was ordered as well. MD Toby Perry contacted the ICU team for a possible transfer to ICU. Pt continue to be agitated, confused, and paranoid while being in restraints. 1:1 sitter at bedside, bed in lowest position. Around 00:00 pt was admitted to ICU in all 4 restraints, report given to SHIPYARD PAINTER.
[2023-07-22] MEDS: Albumin Human 25 % 100 ML IV ×4 (02:35→20:10)
[2023-07-22] MEDS: dexmedeTOMIDidine HCL/NS 400 MCG/100 ML INFUS..BTL 27.5 MCG IVCONT ×3 (02:53→22:28)
[2023-07-22 05:45] LABS: VBG Base Excess 8.1 mmol/L; VBG HCO3 32 mmol/L (22-26); VBG pCO2 42 mmHg; VBG pH 7.49 (7.32-7.43); VBG pO2 150 mmHg
[2023-07-22 05:49] LABS: Basophils Percent Auto 1.1 % (0-2); Hemoglobin 8.5 g/dl (12.0-16.0); PLT CLUMP 1; SCAN SMEAR FLAG 1
[2023-07-22 05:51] LABS: Eosinophils Absolute Auto 0.1 X10*3/uL (0.0-0.4); Eosinophils Percent Auto 3.6 % (0-4); Hematocrit 25.5 % (37.0-47.0); Imm Gran Abs Auto 0.01 X10*3/uL (0.00-0.03); Imm Gran Pct Auto 0.4 % (0.0-0.4); Lymphocytes Absolute Auto 0.7 X10*3/uL (1.2-4.9); Lymphocytes Percent Auto 23.6 % (20-40); Mean Corpuscular HGB Conc 33.3 g/dl (31.0-35.0); Mean Corpuscular Hemoglobin 35.4 pg (27.0-33.0); Mean Corpuscular Volume 106.3 fL (80.0-98.0); Mean Platelet Volume 9.9 fL (9.4-12.3); Monocytes Absolute Auto 0.4 X10*3/uL (0.1-1.2); Monocytes Percent Auto 15.6 % (2-11); Neutrophils Absolute Auto 1.5 x10*3/uL (2.0-8.3); Neutrophils Percent Auto 55.7 % (45-73); Red Cell Distribution Width 17.1 % (11.0-16.0)
[2023-07-22 05:52] LABS: MANUAL DIFF FLAG NO; Platelet Count 145 X10*3/uL (160-400); White Blood Count 2.8 X10*3/uL (4.8-10.8)
[2023-07-22 05:56] LABS: Venous Blood Gas Refer to POC result
[2023-07-22 06:10] LABS: Alanine Aminotransferase 38 U/L (0-31); Albumin Level 3.1 g/dL (3.5-5.0); Alkaline Phosphatase 231 U/L (39-117); Anion Gap 11 (12-20); Aspartate Amino Transferase 74 U/L (5-31); Bilirubin Total 2.8 mg/dL (0.0-1.0); Blood Urea Nitrogen 4 mg/dL (9-16); Calcium 8.4 mg/dL (8.4-10.2); Carbon Dioxide 28 mmol/L (22-29); Chloride 99 mmol/L (96-108); Creatinine Clr Calc Pharmacy 134.3; Estimated Glomerular Filt Rate > 60; Glucose Random 125 mg/dL (60-115); Magnesium 1.9 mg/dL (1.6-2.6); Phosphorus 3.9 mg/dL (2.7-4.5); Potassium 3.1 mmol/L (3.3-5.1); Sodium 135 mmol/L (135-145); Total Protein 5.8 g/dL (6.5-8.0)
[2023-07-22] MEDS: Thiamine HCL 500 MG in 0.9 % Sodium Chloride 100 ML 210 MG IV (06:21)
[2023-07-22] MEDS: 0.9 % Sodium Chloride Flush 3 ML SYRINGE IVFLUSH ×3 (07:39→20:29)
[2023-07-22] MEDS: Enoxaparin Sodium 40 MG/0.4 ML SYRINGE SUBCUT (07:40)
[2023-07-22] MEDS: dexmedeTOMIDidine HCL/NS 400 MCG/100 ML INFUS..BTL 10 MCG IVCONT (09:00)
--- NOTE | 2023-07-22 09:24 | PM.CCPN ---
Subjective Subjective Date of Service: 07/22/23 Interval History: 52-year-old lady with underlying history of polysubstance abuse including alcohol and opioids, mood disorder admitted on 07/19/2023 with alcohol intoxication other developing alcohol withdrawal with suboptimal control on phenobarbital protocol requiring initiation Precedex drip and transferred to intensive care unit. No events overnight. Continues to require Precedex drip. Critical Care Time (minutes): 45 Physical Exam Vital Signs: Vital Signs: Last Vital Signs Temp 98.7 F 07/22/23 04:00 Pulse 60 07/22/23 08:00 Resp 30 H 07/22/23 08:00 BP 88/59 L 07/22/23 08:00 Pulse Ox 95 07/22/23 08:00 O2 Del Method Nasal Cannula 07/22/23 07:00 O2 Flow Rate 8 07/22/23 08:00 BMI result Body Mass Index 38.7 Const: General: no acute distress and lethargic (Arousable, intermittently agitated) Orientation/consciousness: lethargic (Arousable, intermittently agitated) Eyes: Sclerae: sclerae normal EOM: EOMs intact bilaterally Neck: Neck: Yes no lymphadenopathy, Yes trachea midline and Yes supple Resp: Effort & Inspection: normal respiratory effort and no respiratory distress Auscultation: clear to auscultation bilaterally Cardio: Rate: regular rate Rhythm: regular rhythm Heart sounds: no gallops, no murmurs and no rubs GI: Palpation (GI): Soft to palpation and Other GI palpation findings present ( Nontender) Auscultation: normal bowel sounds Extrem: General: Yes no pedal edema, No clubbing and No cyanosis Objective Data Labs 07/22/23 05:37 07/22/23 05:37 Labs: Laboratory Results - last 24 hr 07/21/23 07/22/23 23:03 05:37 WBC 4.4 L 2.8 L RBC 2.80 L 2.40 L Hgb 10.0 L 8.5 L Hct 29.5 L 25.5 L MCV 105.4 H D 106.3 H MCH 35.7 H 35.4 H MCHC 33.9 33.3 RDW 16.7 H 17.1 H Plt Count 171 145 L MPV 10.0 9.9 Immature Gran % (Auto) 0.5 H 0.4 Neut % (Auto) 73.9 H 55.7 Lymph % (Auto) 12.5 L 23.6 [place] % (Auto) 10.4 15.6 H Eos % (Auto) 1.6 3.6 Baso % (Auto) 1.1 1.1 Lymph # (Auto) 0.6 L 0.7 L [place] # (Auto) 0.5 0.4 Eos # (Auto) 0.1 0.1 Baso # (Auto) 0.1 0.0 Abs Immat Gran (auto) 0.02 0.01 Absolute Neuts (auto) 3.3 1.5 L Absolute Nucleated RBC 0.000 0.000 Nucleated RBC % (auto) 0.0 0.0 VBG pH 7.49 H VBG pCO2 42 VBG pO2 150 VBG HCO3 32 H VBG O2 Saturation 99.0 VBG Base Excess 8.1 Sodium 133 L 135 Potassium 3.5 3.1 L Chloride 96 99 Carbon Dioxide 27 28 Anion Gap 14 11 L BUN 5 L 4 L Creatinine 0.53 0.54 Estim Creat Clear Calc 136.9 134.3 Estimated GFR > 60 > 60 Random Glucose 125 H 125 H Lactic Acid 1.4 Calcium 9.2 8.4 D Phosphorus 3.2 3.9 Magnesium 1.6 1.9 Total Bilirubin 2.9 H 2.8 H AST 97 H 74 H ALT 48 H 38 H Alkaline Phosphatase 277 H 231 H Troponin I High Sens 2.7 Total Protein 6.5 5.8 L Albumin 3.4 L 3.1 L Progress Note: A&P Assessment and plan (1) Delirium tremens: Status: Acute Plan Assessment: 52-year-old lady admitted with alcohol intoxication, then developing delirium tremens now requiring Precedex drip Plan: Neuro: Delirium tremens, continue to titrate off Precedex drip as tolerated. Cardiac: No acute issues. Pulmonary: No acute issues. Renal: No acute issues. Endo: No acute issues. GI: No acute issues. ID: No acute issues Heme/Onc: No acute issues. Psych: No acute issues. Miscellaneous: No acute issues. Prophylaxis: Lovenox Diet: NPO Critical care time spent: 45 minutes Quality Stroke Does the patient have a stroke diagnosis?: No VTE Prior VTE?: No VTE Risk Level:: Medical - moderate - high VTE Device Contraindication: Treatment Not Indicated VTE Drug Contraindication: N/A - Med Ordered
[2023-07-22] MEDS: Potassium Chloride/H20 10 MEQ/100 ML PIGGYBACK 100 MEQ IV ×4 (09:44→14:21)
[2023-07-22] MEDS: DULoxetine HCl 20 MG CAPSULE.DR 40 MG PO (10:53)
[2023-07-22] MEDS: Gabapentin 300 MG CAPSULE PO (10:53)
[2023-07-22] MEDS: PHENobarbitaL 15 MG TABLET PO (10:53)
[2023-07-22] MEDS: Folic Acid 1 MG TABLET PO (10:54)
[2023-07-22] MEDS: Multivitamin TABLET 1 TAB PO (10:54)
[2023-07-22] MEDS: Mag&Al/Sim/Diphenhyd/Lidocaine 10 ML ORAL.SUSP PO (10:58)
[2023-07-22] MEDS: Midazolam HCl/PF 2 MG/2 ML VIAL IVPUSH (12:56)
[2023-07-22] MEDS: dexmedeTOMIDidine HCL/NS 400 MCG/100 ML INFUS..BTL 37.5 MCG IVCONT (13:13)
--- NOTE | 2023-07-22 13:54 | MHC.CM.PN ---
EMR reviewed and per ICU rounds, pt was transferred to ICU last evening after developing delirium tremens, pt on Precedex drip. CM will continue to follow.
--- NOTE | 2023-07-22 15:41 | P.CNHOSGPS_ITS ---
History of Present Illness Data of Consult Service Date: 07/22/23 Requesting physician: Lidia Perry Primary Care Provider: Baljeet Perry MD [facility] Reason for consult: Assessment of agitation The patient is a 52-year-old female with a very long history of alcohol use disorder, opiate use disorder who was brought to the hospital for withdrawal symptoms. The patient was moved from med surge unit to intensive care unit due to her withdrawal symptoms. The patient was already assessed by substance abuse and Psychiatry before. The present consult was asked since yesterday last night the patient had become extremely agitated with psychotic symptoms elicited with visual and auditory hallucinations and disorganized behavior.. According to the chart the patient was medicated with Haldol and Zyprexa IM due to agitation. When I went to assess the patient was already sedated since she got Versed a few minutes ago due to agitation. She still scoring on the CIWA protocol. The nursing charge reported the patient had been having visual hallucinations and auditory hallucinations in the last 16 hours. It is clear that this moment the patient is going through delirium tremens. We review her list of medications and I discussed with the attending and we will start antipsychotics. Even though that antipsychotics are not recommended on alcohol withdrawal due to the lowering of the seizure threshold, in this case due to psychotic symptoms in the context of delirium tremens it is advisable to keep her on atypical antipsychotics. Review of Systems 2 Review of Systems: Yes Unobtainable due to mental status PMFSH Medical History Alcohol withdrawal syndrome Abscess of axilla, right Rash Encounter for monitoring Suboxone maintenance therapy Hypertension Alcohol use disorder, severe, dependence Opioid use disorder Alcohol abuse Functional capacity: bed bound Patient : No Family History Father Lung cancer Surgical History History of total knee arthroplasty History of gastric surgery Social History Household Members: Spouse Housing: House Do you presently have visiting nurse or other home services: No Unable to assess alcohol history related to: Unknown Alcohol intake: current Alcohol intake frequency: 3 or more drinks per day Alcohol type: wine and hard liquor Comment: refuses fall risk alarms Patient Tobacco Use Status: Former Tobacco user Quit Date: 2022 Tobacco use type: Cigarette Years Smoked: 2 Smoked in Last 30 Days: No Patient Interested in Nicotine Replacement: No Patient Given Instructions on How to Stop Smoking: No Second Hand Smoke Exposure: No Use of substances other than those prescribed or required for medical reasons: No Currently Displaying Signs/Symptoms of Drug Intoxication Withdrawal: No Any prior treatment program specific to substance use: No Have you been hit, kicked, punched, or otherwise hurt by someone within the past year? If so, by whom?: No Do you feel safe in your current relationship?: Yes Is there a partner from a previous relationship who is making you feel unsafe now?: No Are you made to feel afraid or neglected: No Advance Directives: No Advance Directives Information Provided: No Advance Directives on File: No Do you have thoughts of harming others: None Do you have a plan to hurt others: No Plan Recently lost weight without trying: No Eating poorly because of decreased appetite: No Nutrition Risks: Dental problems Patient : No : No Poor oral hygiene: Yes service: No Current occupational status: employed [employer] Allergies Allergy/AdvReac Type Severity Reaction Status Date / Time No Known Allergies Allergy Verified 07/18/23 21:53 Active Medications: Current Medications Acetaminophen (Acetaminophen 325 Mg Tablet) 650 mg PO Q6H PRN PRN Reason: Pain, Mild (Pain Scale 1-3) Last Admin: 07/20/23 21:11 Dose: 650 mg Aspirin (Aspirin Enteric Coated 81 Mg Tablet.) 81 mg PO DAILY [facility] Last Admin: 07/21/23 07:56 Dose: 81 mg Duloxetine HCl (Duloxetine Hcl 20 Mg Capsule.) 40 mg PO DAILY [facility] Last Admin: 07/22/23 10:53 Dose: 40 mg Enoxaparin Sodium (Enoxaparin Sodium 40 Mg/0.4 Ml Syringe) 40 mg SUBCUT DAILY [facility] Last Admin: 07/22/23 07:40 Dose: 40 mg Folic Acid (Folic Acid 1 Mg Tablet) 1 mg PO DAILY [facility] Last Admin: 07/22/23 10:54 Dose: 1 mg Gabapentin (Gabapentin 300 Mg Capsule) 300 mg PO DAILY [facility] Last Admin: 07/22/23 10:53 Dose: 300 mg Dexmedetomidine HCl (Precedex) 400 mcg in 100 mls @ 0 mls/hr IVCONT .Q0M [facility]; Protocol Last Admin: 07/22/23 13:13 Dose: 1.5 mcg/kg/hr, 37.5 mls/hr Thiamine HCl 100 mg/ Sodium (Chloride) 101 mls @ 202 mls/hr IV DAILY [facility] Albumin Human (Kedbumin 25 %) 100 mls @ 100 mls/hr IV Q6H [facility] Stop: 07/23/23 02:59 Last Infusion: 07/22/23 15:38 Dose: Infused Lidocaine/Diphenhydr/Alum/Mg/Simeth (Mag&Al/Sim/Diphenhyd/Lidocaine 10 Ml Oral.Susp) 10 ml PO Q6H [facility]; Protocol Last Admin: 07/22/23 10:58 Dose: 10 ml Melatonin (Melatonin 3 Mg Tablet) 6 mg PO BEDTIME PRN PRN Reason: Insomnia Multivitamins/Vitamin C (Multivitamin Tablet) 1 tab PO DAILY [facility] Last Admin: 07/22/23 10:54 Dose: 1 tab Nicotine Polacrilex (Nicotine Polacrilex 2 Mg Gum) 2 mg BUCCAL Q2H PRN PRN Reason: Nicotine Cravings Last Admin: 07/20/23 21:09 Dose: 2 mg Pharmacy Consult (Consult Rx Etoh Phenob Im/Po) 10 each MISCELLANE ONCE PRN; Protocol PRN Reason: Consult order Phenobarbital (Phenobarbital 15 Mg Tablet) 15 mg PO BID [facility]; Protocol Stop: 07/23/23 09:01 Last Admin: 07/22/23 10:53 Dose: 15 mg Phenobarbital (Phenobarbital 15 Mg Tablet) 15 mg PO DAILY [facility]; Protocol Stop: 07/25/23 09:01 Sodium Chloride (0.9 % Sodium Chloride Flush 3 Ml Syringe) 3 ml [facility] Last Admin: 07/22/23 07:39 Dose: 3 ml Home Medications ?Medication ?Instructions ?Recorded ?Confirmed ?Last Taken ?Type gabapentin 300 mg capsule 300 mg PO DAILY 04/28/23 07/19/23 05/13/23 History ibuprofen 600 mg tablet 600 mg PO DAILY PRN Pain (Scale 04/28/23 07/19/23 05/13/23 History Score 4-6) meclizine 12.5 mg tablet 12.5 mg PO TID PRN Nausea And 04/28/23 07/19/23 05/13/23 History Vomiting multivitamin 1 tab PO DAILY 04/28/23 07/19/23 05/13/23 History duloxetine 40 mg capsule,delayed 40 mg PO DAILY 05/13/23 07/19/23 05/13/23 History release Results Labs 07/22/23 05:37 07/22/23 05:37 Labs: Laboratory Results - last 24 hr 07/21/23 07/22/23 23:03 05:37 MCV 105.4 H D 106.3 H MCH 35.7 H 35.4 H MCHC 33.9 33.3 RDW 16.7 H 17.1 H Plt Count 171 145 L MPV 10.0 9.9 Immature Gran % (Auto) 0.5 H 0.4 Neut % (Auto) 73.9 H 55.7 Lymph % (Auto) 12.5 L 23.6 [place] % (Auto) 10.4 15.6 H Eos % (Auto) 1.6 3.6 Baso % (Auto) 1.1 1.1 Lymph # (Auto) 0.6 L 0.7 L [place] # (Auto) 0.5 0.4 Eos # (Auto) 0.1 0.1 Baso # (Auto) 0.1 0.0 Abs Immat Gran (auto) 0.02 0.01 Absolute Neuts (auto) 3.3 1.5 L Absolute Nucleated RBC 0.000 0.000 Nucleated RBC % (auto) 0.0 0.0 VBG pH 7.49 H VBG pCO2 42 VBG pO2 150 VBG HCO3 32 H VBG O2 Saturation 99.0 VBG Base Excess 8.1 Anion Gap 14 11 L Estim Creat Clear Calc 136.9 134.3 Estimated GFR > 60 > 60 Random Glucose 125 H 125 H Lactic Acid 1.4 Calcium 9.2 8.4 D Phosphorus 3.2 3.9 Magnesium 1.6 1.9 Total Bilirubin 2.9 H 2.8 H AST 97 H 74 H ALT 48 H 38 H Alkaline Phosphatase 277 H 231 H Troponin I High Sens 2.7 Total Protein 6.5 5.8 L Albumin 3.4 L 3.1 L Assessment and Plan (1) Delirium tremens: Status: Acute Plan The patient is an adult female with a long history of alcohol use disorder, opiate disorder and other substances who was [facility] for alcohol withdrawal symptoms and recently in the last 16:18 hours she has been psychotic with visual hallucinations, auditory hallucinations and disorganized behavior with agitation. At the moment of the interview the patient was sedated since she was agitated and needed another dose of Versed. According to the staff she still scoring over 20 on the CIWA. Plan 1. Start Zyprexa Zydis 5 mg p.o. q.h.s. standing. 2. Start Zyprexa 10 mg p.o. or IM q.4 hours p.r.n. psychotic agitation. 3. Continue with treatment for alcohol withdrawal symptoms with phenytoin and benzodiazepines. 5. When the patient clears for the delirium tremens she can discontinue the Zyprexa. 6. Reassessment as demand Total time managing care of this patient today: 40 minutes. Physical Exam Vital Signs: Last Vital Signs Temp 98.7 F 07/22/23 04:00 Pulse 68 07/22/23 15:00 Resp 26 H 07/22/23 15:00 BP 124/72 07/22/23 15:00 Pulse Ox 96 07/22/23 15:00 O2 Del Method Nasal Cannula 07/22/23 15:00 O2 Flow Rate 3 07/22/23 15:00 BMI result Body Mass Index 38.7 Neuro Cranial nerves: Yes CN's II-XII intact bilaterally
[2023-07-22] MEDS: dexmedeTOMIDidine HCL/NS 400 MCG/100 ML INFUS..BTL 32.5 MCG IVCONT (15:48)
--- NOTE | 2023-07-22 19:18 | PC.NURSE ---
Assumed care of patient 0700 Patient RASS -1 drowsy. Alert to light stimuli then falls asleep without stimuli. Precedex gtt paused 07:57 Pt provided bed bath 08:00 Precedex resumed @1 at 08:20 for increased restlessness, RASS 1+. Titrated down per policy. Precedex rate increased again to 1.5 at 11:00 for agitation. MD notified of increased CIWA score and agitation. 12:56 MD notified of patient agitation and attempting to get OOB, remove medical lines. Versed 2mg IVP given once with positive effect. Precedex titrated to 1.1 per protocol. Pt remains with high fall precautions in place, camera in room, bed alarm on.
[2023-07-23] VITALS (17 sets, daily range): BP systolic 84–147; BP diastolic 54–78; PULSE 58–100; RESP 17–220; TEMP 36.1–37.5; O2SAT 93–97; BMI 40.7
[2023-07-23] MEDS: Albumin Human 25 % 100 ML IV (01:25)
[2023-07-23] MEDS: dexmedeTOMIDidine HCL/NS 400 MCG/100 ML INFUS..BTL 27.5 MCG IVCONT ×3 (01:28→06:14)
[2023-07-23 05:30] LABS: VBG HCO3 25 mmol/L (22-26); VBG pCO2 37 mmHg; VBG pH 7.44 (7.32-7.43); VBG pO2 80 mmHg
[2023-07-23 05:32] LABS: Venous Blood Gas Refer to POC result
[2023-07-23 05:41] LABS: MANUAL DIFF FLAG NO
[2023-07-23 05:44] LABS: Basophils Percent Auto 0.9 % (0-2); Eosinophils Absolute Auto 0.2 X10*3/uL (0.0-0.4); Eosinophils Percent Auto 4.7 % (0-4); Hematocrit 25.3 % (37.0-47.0); Hemoglobin 8.2 g/dl (12.0-16.0); Imm Gran Abs Auto 0.02 X10*3/uL (0.00-0.03); Imm Gran Pct Auto 0.4 % (0.0-0.4); Lymphocytes Absolute Auto 0.6 X10*3/uL (1.2-4.9); Lymphocytes Percent Auto 13.1 % (20-40); Mean Corpuscular HGB Conc 32.4 g/dl (31.0-35.0); Mean Corpuscular Hemoglobin 35.2 pg (27.0-33.0); Mean Corpuscular Volume 108.6 fL (80.0-98.0); Monocytes Absolute Auto 0.5 X10*3/uL (0.1-1.2); Neutrophils Absolute Auto 3.2 x10*3/uL (2.0-8.3); Neutrophils Percent Auto 70.9 % (45-73); Platelet Count 145 X10*3/uL (160-400); Red Blood Count 2.33 X10*6/uL (4.20-5.50); Red Cell Distribution Width 16.7 % (11.0-16.0); White Blood Count 4.5 X10*3/uL (4.8-10.8)
[2023-07-23 06:02] LABS: Alanine Aminotransferase 27 U/L (0-31); Albumin Level 3.9 g/dL (3.5-5.0); Alkaline Phosphatase 183 U/L (39-117); Anion Gap 15 (12-20); Aspartate Amino Transferase 60 U/L (5-31); Bilirubin Total 3.4 mg/dL (0.0-1.0); Blood Urea Nitrogen 6 mg/dL (9-16); Calcium 8.9 mg/dL (8.4-10.2); Carbon Dioxide 23 mmol/L (22-29); Chloride 96 mmol/L (96-108); Creatinine Clr Calc Pharmacy 151.5; Estimated Glomerular Filt Rate > 60; Glucose Random 80 mg/dL (60-115); Magnesium 1.9 mg/dL (1.6-2.6); Phosphorus 3.2 mg/dL (2.7-4.5); Potassium 3.7 mmol/L (3.3-5.1); Sodium 130 mmol/L (135-145); Total Protein 6.2 g/dL (6.5-8.0)
[2023-07-23] MEDS: 0.9 % Sodium Chloride Flush 3 ML SYRINGE IVFLUSH ×3 (07:33→19:58)
[2023-07-23] MEDS: Gabapentin 300 MG CAPSULE PO (07:33)
[2023-07-23] MEDS: Folic Acid 1 MG TABLET PO (07:33)
[2023-07-23] MEDS: DULoxetine HCl 20 MG CAPSULE.DR 40 MG PO (07:33)
[2023-07-23] MEDS: Enoxaparin Sodium 40 MG/0.4 ML SYRINGE SUBCUT (07:33)
[2023-07-23] MEDS: Multivitamin TABLET 1 TAB PO (07:33)
[2023-07-23] MEDS: PHENobarbitaL 15 MG TABLET PO ×2 (07:34→21:11)
[2023-07-23] MEDS: Thiamine HCL 100 MG in 0.9 % Sodium Chloride 100 ML 202 MG IV (07:34)
--- NOTE | 2023-07-23 08:56 | PM.CCPN ---
Subjective Subjective Date of Service: 07/23/23 Interval History: 52-year-old lady with underlying history of polysubstance abuse including alcohol and opioids, mood disorder admitted on 07/19/2023 with alcohol intoxication other developing alcohol withdrawal with suboptimal control on phenobarbital protocol requiring initiation Precedex drip and transferred to intensive care unit. No events overnight. Titrated off Precedex drip. Critical Care Time (minutes): 0 Physical Exam Vital Signs: Vital Signs: Last Vital Signs Temp 97.0 F 07/23/23 03:53 Pulse 76 07/23/23 08:00 Resp 29 H 07/23/23 08:00 BP 93/64 07/23/23 08:00 Pulse Ox 93 07/23/23 08:00 O2 Del Method Room Air 07/23/23 08:00 O2 Flow Rate 3 07/23/23 07:00 BMI result Body Mass Index 40.7 Const: General: no acute distress, alert and awake Eyes: Sclerae: sclerae normal EOM: EOMs intact bilaterally Neck: Neck: Yes no lymphadenopathy, Yes trachea midline and Yes supple Resp: Effort & Inspection: normal respiratory effort and no respiratory distress Auscultation: clear to auscultation bilaterally Cardio: Rate: regular rate Rhythm: regular rhythm Heart sounds: no gallops, no murmurs and no rubs GI: Palpation (GI): Soft to palpation and Other GI palpation findings present ( Nontender) Auscultation: normal bowel sounds Extrem: General: Yes no pedal edema, No clubbing and No cyanosis Objective Data Labs 07/23/23 05:24 07/23/23 05:24 Labs: Laboratory Results - last 24 hr 07/23/23 07/23/23 05:22 05:24 WBC 4.5 L RBC 2.33 L Hgb 8.2 L Hct 25.3 L MCV 108.6 H MCH 35.2 H MCHC 32.4 RDW 16.7 H Plt Count 145 L MPV 10.0 Immature Gran % (Auto) 0.4 Neut % (Auto) 70.9 Lymph % (Auto) 13.1 L [place] % (Auto) 10.0 Eos % (Auto) 4.7 H Baso % (Auto) 0.9 Lymph # (Auto) 0.6 L [place] # (Auto) 0.5 Eos # (Auto) 0.2 Baso # (Auto) 0.0 Abs Immat Gran (auto) 0.02 Absolute Neuts (auto) 3.2 Absolute Nucleated RBC 0.000 Nucleated RBC % (auto) 0.0 VBG pH 7.44 H VBG pCO2 37 VBG pO2 80 VBG HCO3 25 VBG O2 Saturation 97.0 VBG Base Excess 2.0 Sodium 130 L Potassium 3.7 Chloride 96 Carbon Dioxide 23 Anion Gap 15 BUN 6 L Creatinine 0.49 L Estim Creat Clear Calc 151.5 Estimated GFR > 60 Random Glucose 80 Calcium 8.9 Phosphorus 3.2 Magnesium 1.9 Total Bilirubin 3.4 H AST 60 H ALT 27 Alkaline Phosphatase 183 H Total Protein 6.2 L Albumin 3.9 Progress Note: A&P Assessment and plan (1) Delirium tremens: Status: Acute (2) Korsakoff syndrome: Status: Acute Plan Assessment: 52-year-old lady admitted with alcohol intoxication, then developing delirium tremens now requiring Precedex drip Plan: Neuro: Delirium tremens, titrated off Precedex. Korsakoff syndrome. Cardiac: No acute issues. Pulmonary: No acute issues. Renal: No acute issues. Endo: No acute issues. GI: No acute issues. ID: No acute issues Heme/Onc: No acute issues. Psych: No acute issues. Miscellaneous: No acute issues. Prophylaxis: Lovenox Diet: Regular Quality Stroke Does the patient have a stroke diagnosis?: No VTE Prior VTE?: No VTE Risk Level:: Medical - moderate - high VTE Device Contraindication: Treatment Not Indicated VTE Drug Contraindication: N/A - Med Ordered
[2023-07-23] MEDS: Mag&Al/Sim/Diphenhyd/Lidocaine 10 ML ORAL.SUSP PO ×3 (10:40→19:56)
[2023-07-23] MEDS: PHENobarbitaL sodium 130 MG/ML VIAL IM (16:48)
[2023-07-23] MEDS: Milk of Magnesia 30 ML ORAL.SUSP PO (16:50)
[2023-07-23] MEDS: OLANZapine ODT 10 MG TAB.RAPDIS 5 MG TRANSLINGU (19:57)
[2023-07-24] VITALS (7 sets, daily range): BP systolic 120–156; BP diastolic 62–79; PULSE 68–100; RESP 17–21; TEMP 36.4–37.1; O2SAT 95–98
[2023-07-24 07:28] LABS: Albumin Level 3.3 g/dL (3.5-5.0); Anion Gap 11 (12-20); Blood Urea Nitrogen 4 mg/dL (9-16); Calcium 8.7 mg/dL (8.4-10.2); Carbon Dioxide 27 mmol/L (22-29); Chloride 103 mmol/L (96-108); Creatinine Clr Calc Pharmacy 161.3; Estimated Glomerular Filt Rate > 60; Glucose Random 81 mg/dL (60-115); Phosphorus 2.5 mg/dL (2.7-4.5); Potassium 3.3 mmol/L (3.3-5.1); Sodium 138 mmol/L (135-145)
[2023-07-24 07:33] LABS: Eosinophils Absolute Auto 0.2 X10*3/uL (0.0-0.4); Eosinophils Percent Auto 5.2 % (0-4); Hematocrit 25.9 % (37.0-47.0); Hemoglobin 8.6 g/dl (12.0-16.0); Imm Gran Abs Auto 0.03 X10*3/uL (0.00-0.03); Lymphocytes Absolute Auto 0.7 X10*3/uL (1.2-4.9); Lymphocytes Percent Auto 22.7 % (20-40); MANUAL DIFF FLAG SCAN; Mean Corpuscular HGB Conc 33.2 g/dl (31.0-35.0); Mean Corpuscular Hemoglobin 35.8 pg (27.0-33.0); Mean Corpuscular Volume 107.9 fL (80.0-98.0); Mean Platelet Volume 9.9 fL (9.4-12.3); Monocytes Absolute Auto 0.6 X10*3/uL (0.1-1.2); Monocytes Percent Auto 22.4 % (2-11); Neutrophils Absolute Auto 1.4 x10*3/uL (2.0-8.3); Neutrophils Percent Auto 47.7 % (45-73); Platelet Count 166 X10*3/uL (160-400); Red Cell Distribution Width 16.4 % (11.0-16.0); SCAN SMEAR FLAG 1; White Blood Count 2.9 X10*3/uL (4.8-10.8)
[2023-07-24 08:34] LABS: SLIDE REVIEW VERIFIED
[2023-07-24] MEDS: 0.9 % Sodium Chloride Flush 3 ML SYRINGE IVFLUSH ×3 (08:41→21:01)
[2023-07-24] MEDS: DULoxetine HCl 20 MG CAPSULE.DR 40 MG PO (08:42)
[2023-07-24] MEDS: Gabapentin 300 MG CAPSULE PO (08:42)
[2023-07-24] MEDS: Folic Acid 1 MG TABLET PO (08:43)
[2023-07-24] MEDS: PHENobarbitaL 15 MG TABLET PO (08:43)
[2023-07-24] MEDS: Multivitamin TABLET 1 TAB PO (08:43)
[2023-07-24] MEDS: Thiamine HCL 100 MG in 0.9 % Sodium Chloride 100 ML 101 MG IV (08:56)
--- NOTE | 2023-07-24 12:35 | MHC.CM.PN ---
EMR REVIEWED, P.T. RECOMMENDING HOME W/FAMILY SUPPORT ON DC, PER HOSPITALIST ANTIC PT WILL BE CLEARED FOR DC TOMORROW 07/24, CM WILL CONT TO FOLLOW DC NEEDS.
--- NOTE | 2023-07-24 13:27 | MHC.RECOVRN ---
Met with pt to provide support. Pt sitting on bed, awake, alert, easily engages in conversation, just showered. Pt familiar with t/w from [facility] and previous visits, however, states What do you do here again? Pt explained what happened at beginning of hospital stay, pt believes she was moved to a different part of the building that looked like an apartment. Pt continues to state The nurses station was in the kitchen outside of my bedroom. Pt reports she is feeling better, minimal withdrawal symptoms. Pt is interested in restarting disulfiram. Pt denies other questions or concerns for t/w. Discussed with Yazmin Mckinnon APRN.
[2023-07-24] MEDS: Milk of Magnesia 30 ML ORAL.SUSP PO (13:58)
[2023-07-24] MEDS: PHENobarbitaL sodium 130 MG/ML VIAL IM (13:59)
--- NOTE | 2023-07-24 16:29 | HO.PM.IMPN ---
Subjective Subjective Date of Service: 07/24/23 Interval History: seen this morning more alert and interactive reporting tremors tolerating diet no other events Physical Exam Vital Signs: Vital Signs: Last Vital Signs Temp 97.6 F 07/24/23 11:59 Pulse 82 07/24/23 11:59 Resp 20 07/24/23 11:59 BP 121/70 07/24/23 11:59 Pulse Ox 98 07/24/23 11:59 O2 Del Method Room Air 07/24/23 11:59 O2 Flow Rate 3 07/23/23 07:00 BMI result Body Mass Index 40.7 Const: Other: General alert and interactive, resting comfortably, in no acute distress. CVS regular rate rhythm, Respiratory lungs clear to auscultation, no respiratory distress, no wheeze, no rhonchi. Gastrointestinal abdomen soft, non tender, bowel sounds audible, no guarding , no rigidity. Extremities no edema. Neuro nonfocal , speech clear, mild tremors. Skin facial rash chin improving Psych mild anxiety agitation Objective Data Active Medications Duloxetine HCl (Duloxetine Hcl 20 Mg Capsule.) 40 mg PO DAILY [facility] Last Admin: 07/24/23 08:42 Dose: 40 mg Documented By: CESILIA Enoxaparin Sodium (Enoxaparin Sodium 40 Mg/0.4 Ml Syringe) 40 mg SUBCUT DAILY [facility] Last Admin: 07/24/23 08:42 Dose: Not Given Documented By: CESILIA Non-Admin Reason: Patient Refused Folic Acid (Folic Acid 1 Mg Tablet) 1 mg PO DAILY [facility] Last Admin: 07/24/23 08:43 Dose: 1 mg Documented By: CESILIA Gabapentin (Gabapentin 300 Mg Capsule) 300 mg PO DAILY [facility] Last Admin: 07/24/23 08:42 Dose: 300 mg Documented By: CESILIA Thiamine HCl 100 mg/ Sodium (Chloride) 101 mls @ 202 mls/hr IV DAILY [facility] Last Infusion: 07/24/23 09:58 Dose: Infused Documented By: CESILIA Lidocaine/Diphenhydr/Alum/Mg/Simeth (Mag&Al/Sim/Diphenhyd/Lidocaine 10 Ml Oral.Susp) 10 ml PO Q6H [facility]; Protocol Last Admin: 07/24/23 12:42 Dose: Not Given Documented By: CESILIA Non-Admin Reason: Patient Refused Multivitamins/Vitamin C (Multivitamin Tablet) 1 tab PO DAILY [facility] Last Admin: 07/24/23 08:43 Dose: 1 tab Documented By: CESILIA Olanzapine (Olanzapine Odt 10 Mg Tab.Rapdis) 5 mg TRANSLINGU BEDTIME [facility] Last Admin: 07/23/23 19:57 Dose: 5 mg Documented By: BANDAR Olanzapine (Olanzapine Odt 10 Mg Tab.Rapdis) 10 mg TRANSLINGU Q4H PRN PRN Reason: Psychosis Phenobarbital (Phenobarbital 15 Mg Tablet) 15 mg PO DAILY [facility]; Protocol Stop: 07/25/23 09:01 Last Admin: 07/24/23 08:43 Dose: 15 mg Documented By: CESILIA Sodium Chloride (0.9 % Sodium Chloride Flush 3 Ml Syringe) 3 ml IVFLUSH QSHIFT [facility] Last Admin: 07/24/23 08:41 Dose: 3 ml Documented By: CESILIA Labs 07/24/23 06:26 07/24/23 06:26 Labs: Laboratory Results - last 24 hr 07/24/23 06:26 MCV 107.9 H MCH 35.8 H MCHC 33.2 RDW 16.4 H Plt Count 166 MPV 9.9 Immature Gran % (Auto) 1.0 H Neut % (Auto) 47.7 Lymph % (Auto) 22.7 [place] % (Auto) 22.4 H Eos % (Auto) 5.2 H Baso % (Auto) 1.0 Lymph # (Auto) 0.7 L [place] # (Auto) 0.6 Eos # (Auto) 0.2 Baso # (Auto) 0.0 Abs Immat Gran (auto) 0.03 Absolute Neuts (auto) 1.4 L Absolute Nucleated RBC 0.000 Nucleated RBC % (auto) 0.0 Smear Tech's Comments VERIFIED Anion Gap 11 L Estim Creat Clear Calc 161.3 Estimated GFR > 60 Random Glucose 81 Calcium 8.7 Phosphorus 2.5 L Magnesium 2.0 Albumin 3.3 L Assessment and Plan (1) Thrombocytopenia: Status: Acute (2) Transaminitis: Status: Acute (3) Alcohol withdrawal syndrome, with delirium: Status: Acute (4) Acute hypokalemia: Status: Acute (5) Alcohol withdrawal: Status: Acute Plan 52-year-old female with pertinent history of alcohol use disorder, opioid use disorder on Suboxone, mood disorder who presents to the emergency department for concerns of alcohol withdrawal. # Alcohol use disorder and alcohol withdrawal: improving Additional 1 time dose of IM phenobarb given, cont. phenobarb protocol , thiamine and folic acid. Follow Addiction Team input Continue magic mouthwash for oral sores due to poor dentition and antibacterial cream for facial scabs. # Generalized weakness with frequent falls likely in the setting of above: CT head showed chronic small vessel changes, C-spine CT showed [id number] spinal canal and bilateral lateral [id number] neuro foraminal narrowing. PT recommends home with family support # Mood disorder Continue home mood stabilizers # Opioid use disorder on Suboxone # Mild hyponatremia: Sodium improved # Hypokalemia: Repleted and normalized # Elevated liver enzymes in the setting of alcohol use disorder strongly recommend to abstain from alcohol # Morbid obesity recommend weight loss and exercise. Likely in the setting of alcohol use. DVT prophylaxis: Lovenox Full code Patient will require continued inpatient hospital stay for close monitoring of mentation, monitor CIWA, treatment of alcohol withdrawal (as above), which is not possible in a lesser acute setting. Quality Stroke Does the patient have a stroke diagnosis?: No VTE Prior VTE?: No VTE Risk Level:: Medical - moderate - high VTE Device Contraindication: Treatment Not Indicated VTE Drug Contraindication: N/A - Med Ordered
[2023-07-24] MEDS: Mag&Al/Sim/Diphenhyd/Lidocaine 10 ML ORAL.SUSP PO ×2 (16:39→21:01)
--- NOTE | 2023-07-24 19:20 | P.PNADD_ITS ---
Subjective Subjective Date of Service: 07/24/23 Reason For Visit: visual hallucinations Interim History: Patient seen in follow up for AUD and prolonged alcohol withdrawal with DTs requiring ICU level of care Seen in room 471, patient very talkative. Acknowledging recent events, including hallucinations and beliefs that she verbalizes were not real. She does believe she has been inpatient for the last 2 weeks, but otherwise appears to have cleared from her delirium. T/w contacted her to obtain collateral regarding some events she was reporting, and verified her statements. He also feels that today she is 100% better than yesterday, it's like the light switch turned on and she is back . is requesting to be present for discharge planning. This software writer discussed importance of patient taking vitamins at home jessica if she continues to drink (history of gastric bypass and already high risk for thiamine deficiency). Review of Systems Medical Review of Systems: changed Review of Systems: patient reporting some tremors earlier in the day otherwise no sx reported Mental Status Exam Mental Status Exam Patient Appearance: Well Grooomed Patient Orientation: Person, Place, Time and Situation Level of Consciousness: Awake, Appropriate and Alert Patient Behavior: Talkative Mood Description: Euphoric Affect Description: Appropriate and Elated Speech Pattern: Clear and Excessive Thought Process: Goal Oriented Thought Content: positive for Circumstantial Judgement: Fair Diagnostics Vital Signs (24Hr): Vital Signs - 24 hr 07/23/23 19:32 07/24/23 00:00 07/24/23 04:00 Temperature 96.9 F 97.6 F 97.5 F Pulse Rate 94 78 68 Respiratory Rate 20 21 H 20 Blood Pressure 134/74 124/62 120/62 Pulse Oximetry 97 96 95 Oxygen Delivery Method Room Air Room Air Room Air 07/24/23 08:00 07/24/23 11:59 07/24/23 16:00 Temperature 98.2 F 97.6 F 98.8 F Pulse Rate 100 82 84 Respiratory Rate 20 20 20 Blood Pressure 124/79 121/70 131/77 Pulse Oximetry 97 98 97 Oxygen Delivery Method Room Air Room Air Room Air BMI result Body Mass Index 40.7 Labs 07/24/23 06:26 07/24/23 06:26 Labs: Laboratory Results - last 48 hr 07/23/23 07/23/23 07/24/23 05:22 05:24 06:26 WBC 4.5 L 2.9 L RBC 2.33 L 2.40 L Hgb 8.2 L 8.6 L Hct 25.3 L 25.9 L MCV 108.6 H 107.9 H MCH 35.2 H 35.8 H MCHC 32.4 33.2 RDW 16.7 H 16.4 H Plt Count 145 L 166 MPV 10.0 9.9 Immature Gran % (Auto) 0.4 1.0 H Neut % (Auto) 70.9 47.7 Lymph % (Auto) 13.1 L 22.7 [place] % (Auto) 10.0 22.4 H Eos % (Auto) 4.7 H 5.2 H Baso % (Auto) 0.9 1.0 Lymph # (Auto) 0.6 L 0.7 L [place] # (Auto) 0.5 0.6 Eos # (Auto) 0.2 0.2 Baso # (Auto) 0.0 0.0 Abs Immat Gran (auto) 0.02 0.03 Absolute Neuts (auto) 3.2 1.4 L Absolute Nucleated RBC 0.000 0.000 Nucleated RBC % (auto) 0.0 0.0 Smear Tech's Comments VERIFIED VBG pH 7.44 H VBG pCO2 37 VBG pO2 80 VBG HCO3 25 VBG O2 Saturation 97.0 VBG Base Excess 2.0 Sodium 130 L 138 Potassium 3.7 3.3 Chloride 96 103 Carbon Dioxide 23 27 Anion Gap 15 11 L BUN 6 L 4 L Creatinine 0.49 L 0.46 L Estim Creat Clear Calc 151.5 161.3 Estimated GFR > 60 > 60 Random Glucose 80 81 Calcium 8.9 8.7 Phosphorus 3.2 2.5 L Magnesium 1.9 2.0 Total Bilirubin 3.4 H AST 60 H ALT 27 Alkaline Phosphatase 183 H Total Protein 6.2 L Albumin 3.9 3.3 L Imaging Radiology Impressions: ITS Impressions Cervical Spine CT 07/19/23 00:10 IMPRESSION: 1. No acute intracranial process seen. 2. Mild cerebral volume loss with chronic small vessel ischemic changes. 3. There is no acute cervical spine fracture or traumatic subluxation. There is grade 1 anterolisthesis C4 over C5 with straightening of the expected cervical spine curvature likely secondary to degenerative changes. 4. There is diffuse cervical spondylosis greatest at C5-C6 with multilevel dxfn-tv-tbbeclzh spinal canal and bilateral ykbo-to-gjkqkhjy neuroforaminal narrowing. Head CT 07/19/23 00:20 IMPRESSION: 1. No acute intracranial process seen. 2. Mild cerebral volume loss with chronic small vessel ischemic changes. 3. There is no acute cervical spine fracture or traumatic subluxation. There is grade 1 anterolisthesis C4 over C5 with straightening of the expected cervical spine curvature likely secondary to degenerative changes. 4. There is diffuse cervical spondylosis greatest at C5-C6 with multilevel hmdo-vx-ifppzods spinal canal and bilateral yhjd-gr-tlpqcciy neuroforaminal narrowing. Chest X-Ray 07/19/23 00:32 IMPRESSION: Unremarkable examination. Medications Medications Current Medications Duloxetine HCl (Duloxetine Hcl 20 Mg Capsule.Dr) 40 mg PO DAILY [facility] Last Admin: 07/24/23 08:42 Dose: 40 mg Enoxaparin Sodium (Enoxaparin Sodium 40 Mg/0.4 Ml Syringe) 40 mg SUBCUT DAILY [facility] Last Admin: 07/24/23 08:42 Dose: Not Given Folic Acid (Folic Acid 1 Mg Tablet) 1 mg PO DAILY [facility] Last Admin: 07/24/23 08:43 Dose: 1 mg Gabapentin (Gabapentin 300 Mg Capsule) 300 mg PO DAILY [facility] Last Admin: 07/24/23 08:42 Dose: 300 mg Thiamine HCl 100 mg/ Sodium (Chloride) 101 mls @ 202 mls/hr IV DAILY [facility] Last Infusion: 07/24/23 09:58 Dose: Infused Lidocaine/Diphenhydr/Alum/Mg/Simeth (Mag&Al/Sim/Diphenhyd/Lidocaine 10 Ml Oral.Susp) 10 ml PO Q6H [facility]; Protocol Last Admin: 07/24/23 16:39 Dose: 10 ml Multivitamins/Vitamin C (Multivitamin Tablet) 1 tab PO DAILY [facility] Last Admin: 07/24/23 08:43 Dose: 1 tab Olanzapine (Olanzapine Odt 10 Mg Tab.Rapdis) 5 mg TRANSLINGU BEDTIME [facility] Last Admin: 07/23/23 19:57 Dose: 5 mg Olanzapine (Olanzapine Odt 10 Mg Tab.Rapdis) 10 mg TRANSLINGU Q4H PRN PRN Reason: Psychosis Phenobarbital (Phenobarbital 15 Mg Tablet) 15 mg PO DAILY [facility]; Protocol Stop: 07/25/23 09:01 Last Admin: 07/24/23 08:43 Dose: 15 mg Phenobarbital Sodium (Phenobarbital Sodium 130 Mg/Ml Vial) 130 mg IM ONCE PRN PRN Reason: Alcohol Withdrawal Sodium Chloride (0.9 % Sodium Chloride Flush 3 Ml Syringe) 3 ml IVFLUSH QSHIFT [facility] Last Admin: 07/24/23 16:36 Dose: 3 ml Allergies Allergies Allergy/AdvReac Type Severity Reaction Status Date / Time No Known Allergies Allergy Verified 07/18/23 21:53 Assessment & Plan Assessment & Plan (1) Alcohol use disorder, severe, dependence: Status: Acute Code(s): F10.20 - Alcohol dependence, uncomplicated Assessment and Plan: * withdrawal improving and patient much closer to baseline * previous concern for Korsakoff, however more likely [place] encephalopathy given improvement in patient's mentation * already connected to [facility] for outpatient treatment of AUD and OUD * encourage eating, B vitamins, etc once home to minimize negative impacts of alcohol intake Total time managing care of this patient today __45__ minutes.
[2023-07-24] MEDS: OLANZapine ODT 10 MG TAB.RAPDIS 5 MG TRANSLINGU (21:01)
[2023-07-25 06:00] VITALS: BMI 40.8
[2023-07-25 06:45] VITALS: BP 156/78; PULSE 56; RESP 18; TEMP 37.1; O2SAT 96
[2023-07-25 07:44] VITALS: BP 131/82; PULSE 80; RESP 18; TEMP 36.9; O2SAT 98
[2023-07-25] MEDS: DULoxetine HCl 20 MG CAPSULE.DR 40 MG PO (08:48)
[2023-07-25] MEDS: PHENobarbitaL 15 MG TABLET PO (08:48)
[2023-07-25] MEDS: Gabapentin 300 MG CAPSULE PO (08:48)
[2023-07-25] MEDS: 0.9 % Sodium Chloride Flush 3 ML SYRINGE IVFLUSH (08:49)
[2023-07-25] MEDS: Multivitamin TABLET 1 TAB PO (08:49)
[2023-07-25] MEDS: Thiamine HCL 100 MG TABLET PO (08:49)
[2023-07-25] MEDS: Folic Acid 1 MG TABLET PO (08:49)
[2023-07-25] MEDS: Mag&Al/Sim/Diphenhyd/Lidocaine 10 ML ORAL.SUSP PO (08:50)
[2023-07-25 10:54] VITALS: BP 139/74; PULSE 79; RESP 18; TEMP 36.3; O2SAT 98
--- NOTE | 2023-07-25 11:44 | P.DS_ITS ---
DS: Providers Provider Date of Service: 07/25/23 Date of admission: 07/19/23 02:08 Primary care physician: Baljeet Perry MD Consults: 07/19/23 02:09 Addiction Medicine Routine Consulting Provider: Addiction Covering Reason for consultation: alcohol use disorder 07/20/23 11:52 Addiction Medicine Routine Consulting Provider: Addiction Covering Reason for consultation: poly substance abuse Consult to Wound Care Routine Reason for consultation: some type of rash / abrasions on chin 07/21/23 21:53 Consult to Psychiatry Routine Consulting Provider: Psych Covering Reason for consultation: Alcohol abuse. Severe agitation Has provider been notified: No DS: Diagnosis Discharge Diagnosis (1) Thrombocytopenia: Status: Acute (2) Transaminitis: Status: Acute (3) Delirium tremens: Status: Acute (4) Alcohol withdrawal syndrome, with delirium: Status: Acute (5) Acute hypokalemia: Status: Acute (6) Hyponatremia: Status: Acute (7) Rash: Status: Acute DS: Summary Hospital Course Hospital Course: Admission note This is a 52-year-old female with pertinent history of alcohol use disorder, opioid use disorder on Suboxone, mood disorder who presents to the emergency department for concerns of alcohol withdrawal. Patient states her last drink was on the day of presentation. Patient relapsed in the last 4 months and has been drinking every day. Admits poor p.o. intake whenever she drinks alcohol. Does have a history of alcohol withdrawal. No history of alcohol withdrawal seizures. Patient states she has been having anxiety, visual hallucination since she stopped drinking. Also feels weak and is falling frequently. No fever, chills, chest discomfort, palpitations, shortness of breath, abdominal pain, changes in urinary or bowel habits. In the emergency department, patient was initiated on phenobarb protocol. Sodium 128, potassium 3.1, AST 203 and ALT 65. Hospital course # Alcohol use disorder and alcohol withdrawal: she was admitted and started on Phenobarbital protocol and monitored on CIWA with deterioration of mental status and worsening agitation and hallucinations reported requiring ICU placement for Precedex drip with fair response over the course of ICU stay as she was transferred back to medical floor and continued Phenobarbital protocol requiring extra doses. She received also thiamine and folic acid. She was Followed by Addiction Team who agreed with her to restart the Disulfiram upon discharge. magic mouthwash was used for oral sores due to poor dentition and antibacterial cream for facial scabs. Molecular Physicist thought of possible Korsakoff syndrome as complication of alcoholism, the patient has mild confabulation but no other signs\symptoms to support the diagnosis as her mentation continued to improve after leaving the ICU. will leave this to her PCP to evaluate in office setting rather that inpatient while she is acutely ill. # Generalized weakness with frequent falls likely in the setting of alcoholism CT head showed chronic small vessel changes, C-spine CT showed ycby-yz-nyttenls spinal canal and bilateral lateral vkcz-vn-pjedmsks neuro foraminal narrowing. evaluated by PT recommends home with family support. # Mood disorder. Continue home mood stabilizers # Opioid use disorder on Suboxone # Mild hyponatremia: Sodium improved # Hypokalemia: Repleted and normalized # Elevated liver enzymes in the setting of alcohol use disorder strongly recommend to abstain from alcohol as LFT trended down. # Morbid obesity recommended weight loss and exercise Discharge Plan We advise you complete abstinence from alcohol Take Thiamine and Folic acid as prescribed Disulfiram for alcohol abstinence Trazodone to help with insomina Time Attestation Discharge Coordination Time (in mins): 40 Quality: Safe Use of Opioids Does Pt have an Active Cancer Diagnosis on the Problem List?: No Quality: Stroke Does the patient have a stroke diagnosis?: No Physical Exam Vital Signs: Vital Signs: Last Vital Signs Temp 97.4 F 07/25/23 10:54 Pulse 79 07/25/23 10:54 Resp 18 07/25/23 10:54 BP 139/74 07/25/23 10:54 Pulse Ox 98 07/25/23 10:54 O2 Del Method Room Air 07/25/23 10:54 O2 Flow Rate 3 07/23/23 07:00 BMI result Body Mass Index 40.8 Const: Other: General alert and interactive, comfortable, in no acute distress. CVS regular rate rhythm, Respiratory lungs clear to auscultation, no respiratory distress, no wheeze, no rhonchi. Gastrointestinal abdomen soft, non tender, bowel sounds audible, no guarding , no rigidity. Extremities no edema. Neuro nonfocal , speech clear, mild tremors. Skin facial rash improving DS: Data Data Completed and Pending Completed studies during hospitalization [Text1]: Procedures Detoxification Services for Substance Abuse Treatment (04/28/23) Drainage of Right Upper Arm Subcutaneous Tissue and Fascia, Open Approach (05/13/23) Imaging Chest x-ray: Radiologist's impression: ITS Impressions Cervical Spine CT 07/19/23 00:10 IMPRESSION: 1. No acute intracranial process seen. 2. Mild cerebral volume loss with chronic small vessel ischemic changes. 3. There is no acute cervical spine fracture or traumatic subluxation. There is grade 1 anterolisthesis C4 over C5 with straightening of the expected cervical spine curvature likely secondary to degenerative changes. 4. There is diffuse cervical spondylosis greatest at C5-C6 with multilevel ufid-vl-snkbggnu spinal canal and bilateral slvn-gb-cgewavhi neuroforaminal narrowing. Head CT 07/19/23 00:20 IMPRESSION: 1. No acute intracranial process seen. 2. Mild cerebral volume loss with chronic small vessel ischemic changes. 3. There is no acute cervical spine fracture or traumatic subluxation. There is grade 1 anterolisthesis C4 over C5 with straightening of the expected cervical spine curvature likely secondary to degenerative changes. 4. There is diffuse cervical spondylosis greatest at C5-C6 with multilevel znjc-tk-jozoaggm spinal canal and bilateral varz-oy-mywslzgk neuroforaminal narrowing. Chest X-Ray 07/19/23 00:32 IMPRESSION: Unremarkable examination. Discharge Plan Discharge Anticipated Discharge Date/Time: 07/25/23 11:34 Patient Disposition: Home Health Service Discharge Diagnosis: Alcohol withdrawal Electrolytes imbalance Referrals: [facility] [Outside] - 1 Week Baljeet Champagne MD [Primary Care Provider] - 1 Week Discharge Medications: New disulfiram 250 mg tablet 250 mg PO DAILY Qty: 90 0RF phenobarbital 15 mg tablet 15 mg PO BID PRN (Reason: withdrawal symptoms) Qty: 6 0RF trazodone 50 mg tablet 50 mg PO BEDTIME PRN (Reason: insomnia) Qty: 20 0RF Continued multivitamin Tablet 1 tab PO DAILY meclizine 12.5 mg Tablet 12.5 mg PO TID PRN (Reason: Nausea And Vomiting) gabapentin 300 mg capsule 300 mg PO DAILY ibuprofen 600 mg tablet 600 mg PO DAILY PRN (Reason: Pain (Scale Score 4-6)) aspirin 81 mg Tablet,Delayed Release (Dr/Ec) 81 mg PO DAILY Qty: 30 0RF duloxetine 40 mg capsule,delayed release(DR/EC) 40 mg PO DAILY folic acid 1 mg tablet 1 mg PO DAILY Qty: 30 3RF thiamine mononitrate (vit B1) 100 mg tablet 100 mg PO DAILY Qty: 90 3RF Sublocade 300 mg/1.5 mL solution, extended rel syringe 300 mg subcut .every 28 days Qty: 1.5 2RF Discharge Orders: Discharge Order (Routine); Ordered 07/25/23 Ordered By: Christiano Tompkins Diet: Advance to usual diet Activity on Discharge: As tolerated Stand Alone Forms: Patient Portal Discharge page Print Language: Georgian Care Plan Goals: Read below Health Concerns: Read below Plan of Treatment: Read below Assessment: You were admitted to the hospital for treatment of alcohol withdrawal and electrolytes imbalance requiring ICU stay for higher level of care. You were able to tolerate diet and participate with physical therapy. We advise you complete abstinence from alcohol Take Thiamine and Folic acid as prescribed Disulfiram for alcohol abstinence Trazodone to help with insomina
--- NOTE | 2023-07-25 11:50 | MHC.CM.PN ---
Patient has been medically cleared for dc to home today, with services. [facility] to [facility], who has been made aware of today's dc.
== END 2023-07-25 12:52 | disposition home health service (06) | DRG 775 ==
LOC: HO.ED 07-19 03:07 → HO.EDOVER 07-19 03:57 → HO.S3 07-19 16:12 → HO.EDOVER 07-19 17:42 → HO.S3 07-20 07:26 → HO.ICU 07-22 00:06 → HO.IMC 07-23 11:39
PROVIDERS: Hospitalist; Internal Medicine; Internal Medicine Pulmonary Disease; Registered Nurse Community Health; Admitting Provider Student in an Organized Health Care Education/Training Program; Emergency Provider Internal Medicine; PCP Internal Medicine; Visit Provider Student in an Organized Health Care Education/Training Program
DX: F10.231 Alcohol dependence with withdrawal delirium (principal); D69.59 Other secondary thrombocytopenia; Z68.41 Body mass index [BMI] 40.0-44.9, adult; E66.01 Morbid (severe) obesity due to excess calories; F39 Unspecified mood [affective] disorder; E87.1 Hypo-osmolality and hyponatremia; E87.6 Hypokalemia; F10.229 Alcohol dependence with intoxication, unspecified; R21 Rash and other nonspecific skin eruption; I95.2 Hypotension due to drugs; T42.6X5A Adverse effect of other antiepileptic and sedative-hypnotic drugs, initial encounter; Y90.8 Blood alcohol level of 240 mg/100 ml or more; Z71.41 Alcohol abuse counseling and surveillance of alcoholic; Z87.891 Personal history of nicotine dependence; Z79.82 Long term (current) use of aspirin; Z79.899 Other long term (current) drug therapy
CPT/HCPCS: 36415; 70450; 71045; 72125; 80048; 80053; 80076; 80307; 81003; 82040; 82607; 82746; 82803; 83605; 83690; 83735; 84100; 84484; 85025; 85610; 93005; 97163; 99285; J1630; J1650; J2060; J2250; J2359; J2560; J3411; J3480; J7120; P9047

== ENCOUNTER → 2023-07-18 21:57 | Outpatient (BNV) | payer BC, MEDICAID, SELFPAY | PROVIDERS: Emergency Provider Internal Medicine; Visit Provider Student in an Organized Health Care Education/Training Program | DX: D69.6 Thrombocytopenia, unspecified (principal); R74.01 Elevation of levels of liver transaminase levels; F10.931 Alcohol use, unspecified with withdrawal delirium; E87.6 Hypokalemia; E87.1 Hypo-osmolality and hyponatremia; R21 Rash and other nonspecific skin eruption | CPT/HCPCS: 99222; 99232; 99239; 99499 ==

== ENCOUNTER → 2023-07-19 00:20 | Outpatient (BNV) | payer BC, MEDICAID, SELFPAY | PROVIDERS: Admitting Provider Student in an Organized Health Care Education/Training Program; Emergency Provider Internal Medicine; Visit Provider Internal Medicine Cardiovascular Disease | DX: R53.1 Weakness (principal) | CPT/HCPCS: 93010 ==

== ENCOUNTER 2023-07-19 02:08 | Outpatient (BNV) | payer BC, MEDICAID, SELFPAY | END 2023-07-21 22:33 | PROVIDERS: Admitting Provider Student in an Organized Health Care Education/Training Program; Emergency Provider Internal Medicine; PCP Internal Medicine; Visit Provider Internal Medicine | DX: R07.9 Chest pain, unspecified (principal) | CPT/HCPCS: 93010 ==

== ENCOUNTER → 2023-07-19 02:08 | Outpatient (BNV) | payer BC, MEDICAID, SELFPAY | PROVIDERS: Admitting Provider Student in an Organized Health Care Education/Training Program; Emergency Provider Internal Medicine; PCP Internal Medicine; Visit Provider Registered Nurse Community Health | DX: F10.931 Alcohol use, unspecified with withdrawal delirium (principal); D69.6 Thrombocytopenia, unspecified; R74.01 Elevation of levels of liver transaminase levels | CPT/HCPCS: 99292 ==

== ENCOUNTER → 2023-07-19 02:08 | Outpatient (BNV) | payer BC, MEDICAID, SELFPAY | PROVIDERS: Admitting Provider Student in an Organized Health Care Education/Training Program; Emergency Provider Internal Medicine; Visit Provider Nurse Practitioner Psychiatric/Mental Health | DX: F10.931 Alcohol use, unspecified with withdrawal delirium (principal) | CPT/HCPCS: 99221; 99232 ==

== ENCOUNTER → 2023-07-19 02:08 | Outpatient (BNV) | payer BC, MEDICAID, SELFPAY | PROVIDERS: Admitting Provider Student in an Organized Health Care Education/Training Program; Emergency Provider Internal Medicine; PCP Internal Medicine; Visit Provider Internal Medicine Pulmonary Disease | DX: F10.931 Alcohol use, unspecified with withdrawal delirium (principal); F04 Amnestic disorder due to known physiological condition | CPT/HCPCS: 99233; 99291 ==

== ENCOUNTER 2023-08-07 12:56 | Outpatient (AMB) | payer BC, MEDICAID, SELFPAY ==
--- NOTE | 2023-08-07 13:05 | AM.OFFVISNUR ---
Intake Vital Signs 08/07/23 13:11 Respiration 19 Pulse 80 Pulse Source Pulse Oximeter Pulse Oximetry (%) 98 Oxygen Delivery Method Room Air Intake Visit Reasons: Sub Inj Allergies No Known Allergies Allergy (Verified 07/18/23 21:53) Nursing Note Patient in for injection, she is alert and oriented x4, speaking in rapid but appropriate sentences. Injection given in RUQ, pt and agree to call is any questions or concerns arise. 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 Coding Assessment & Plan Assessment & Plan Orders: Orders AMB Buprenorphine Injection - Patient Supplied Today F11.90 - Opioid use, unspecified, uncomplicated Medications: New Sublocade ER (buprenorphine) 300 mg (1.5 mL) subcut ONCE 1.5 mL 0RF NS F11.90 - Opioid use, unspecified, uncomplicated
[2023-08-07 13:11] VITALS: PULSE 80; RESP 19; O2SAT 98
== END 2023-08-07 13:18 | disposition home or self-care (01) ==
PROVIDERS: PCP Internal Medicine
DX: F11.90 Opioid use, unspecified, uncomplicated (principal)

== ENCOUNTER → 2023-08-07 12:56 | Outpatient (BNVA) | payer BC, MEDICAID, SELFPAY | PROVIDERS: PCP Internal Medicine | DX: F11.90 Opioid use, unspecified, uncomplicated (principal) | CPT/HCPCS: 96372; Q9992 ==

== ENCOUNTER 2023-09-10 11:24 | Outpatient (AMB) | payer BC, MEDICAID, SELFPAY ==
--- NOTE | 2023-09-10 12:02 | AM.OFFVISNUR ---
Intake Intake Visit Reasons: Sub Inj Allergies No Known Allergies Allergy (Verified 07/18/23 21:53) Nursing Note Patient to clinic for injection today, A+O x4, speaking in clear/full sentences. Denies any complications from previous injection, states recovery is going well. Verbally agrees to call [facility] with any concerns or questions. Came in with , she was in a wheelchair stating I cant walk anymore, I need PT but I dont like them . Office Meds buprenorphine 96 mg/0.27 mL solution,exten.rel.subcutaneous syringe Performing Provider: Yazmin Mckinnon CNP Performing Location: [facility] Administered by: Dominique Lugo RN on 09/11/23 09:27 Dose Route Admin Location Dispensed Lot Number Expiration Date [facility] [employer] 96 mg subcut 0.27 mL [id number] 02/03/25 72543-525-99 [employer]. Coding Assessment & Plan Assessment & Plan Orders: Orders AMB Buprenorphine Injection - Patient Supplied 09/10/23 F11.90 - Opioid use, unspecified, uncomplicated Medications: New buprenorphine ER 96 mg (0.27 mL) subcut ONCE 0.27 mL 0RF F11.90 - Opioid use, unspecified, uncomplicated
== END 2023-09-10 11:59 | disposition home or self-care (01) ==
PROVIDERS: PCP Internal Medicine
DX: F11.90 Opioid use, unspecified, uncomplicated (principal)

== ENCOUNTER → 2023-09-10 11:24 | Outpatient (BNVA) | payer BC, MEDICAID, SELFPAY | PROVIDERS: PCP Internal Medicine | DX: F11.20 Opioid dependence, uncomplicated (principal); Z51.81 Encounter for therapeutic drug level monitoring | CPT/HCPCS: 96372; C9154 ==

== ENCOUNTER 2023-09-23 05:09 | Inpatient (IN) | payer BC, MEDICAID, SELFPAY ==
[2023-09-23] VITALS (8 sets, daily range): BP systolic 101–134; BP diastolic 64–92; PULSE 62–117; RESP 11–23; TEMP 36.4–37.2; O2SAT 92–98; BMI 40.3
--- NOTE | ~2023-09-23 | CT_ITS ---
EXAMINATION: CT HEAD WITHOUT CONTRAST CT CERVICAL SPINE WITHOUT CONTRAST CLINICAL INFORMATION: Multiple falls. COMPARISON: 07/18/2023. TECHNIQUE: Contiguous axial imaging was performed through the head and cervical spine without intravenous administration of contrast. Sagittal and coronal reformatted images also obtained. This CT examination was performed using dose optimization techniques as appropriate, variously including the following: *Automated exposure control *Adjustment of mA and/or kV according to patient size (this includes techniques or standardized protocols for targeted exams where dose is matched to indication/reason for exam; i.e. extremities or head) *Use of iterative reconstruction technique DLP: 1740 mGy-cm FINDINGS: There is cerebral volume loss with prominence of the lateral and the third ventricles. The cortical sulci are widened appropriately. The fourth ventricle and basal cisterns are normally outlined. There is no acute territorial defect, hemorrhage or midline shift. The extra-axial unremarkable. Calvarium/scalp: Intact. Maxillofacial sinuses and mastoids: Clear as visualized. Cervical spine: Motion limits evaluation. There is grade 1 anterolisthesis C4 over C5. There is moderate C2-C3, C5-C6 and C6-C7 disc degenerative change and mild disc degenerative change throughout the remaining cervical spine with loss of disc space, endplate change and posterior osteophytes associated with mild to moderate diffuse facet osteoarthritic hypertrophic change with multilevel spinal canal narrowing which is [id number] at C5-C6 and mild the remaining levels as well as multilevel afro-vn-nfetlgzm neuroforaminal narrowing. No fracture is seen. The soft tissues are unremarkable. Visualized upper lung pablo are clear. CT/CT cervical spine wo IV con IMPRESSION: 1. No acute intracranial finding. 2. No acute cervical spine fracture or malalignment. 3. Multilevel cervical spondylosis. 4. No significant interval change.
--- NOTE | ~2023-09-23 | CT_ITS ---
EXAMINATION: CT HEAD WITHOUT CONTRAST CT CERVICAL SPINE WITHOUT CONTRAST CLINICAL INFORMATION: Trauma. Pain. COMPARISON: 07/19/2023. TECHNIQUE: Contiguous axial imaging was performed through the head and cervical spine without intravenous administration of contrast. Sagittal and coronal reformatted images also obtained. This CT examination was performed using dose optimization techniques as appropriate, variously including the following: *Automated exposure control *Adjustment of mA and/or kV according to patient size (this includes techniques or standardized protocols for targeted exams where dose is matched to indication/reason for exam; i.e. extremities or head) *Use of iterative reconstruction technique DLP: 1027 mGy-cm FINDINGS: There is cerebral volume loss with prominence of the lateral and the third ventricles. The cortical sulci are widened appropriately. The fourth ventricle and basal cisterns are normally outlined. There is no acute territorial defect, hemorrhage or midline shift. The extra-axial spaces are unremarkable. Calvarium/scalp: Calvarium is intact. There is right parieto-occipital scalp soft tissue swelling. Maxillofacial sinuses and mastoids: Clear as visualized. Cervical spine: There is again seen grade 1 anterolisthesis C4 over C5. There is diffuse mmyn-lj-lsojkecs cervical disc degenerative change with multilevel loss of disc space, endplate change and posterior osteophytes associated with diffuse dkio-lh-efpjsfls facet osteoarthritic hypertrophic change with multilevel mild to moderate spinal canal and neuroforaminal narrowing. No fracture is seen. The soft tissues are unremarkable. CT/CT head/brain wo IV con IMPRESSION: HEAD: No acute intracranial finding. Right parieto-occipital scalp soft tissue swelling. CERVICAL SPINE: 1. No acute fracture or dislocation seen. 2. There is diffuse inhn-au-woozrzvs cervical spondylosis with multilevel mild to moderate spinal canal and neuroforaminal narrowing. 3. Grade 1 anterolisthesis C4 over C5 is stable.
--- NOTE | ~2023-09-23 | CT_ITS ---
EXAMINATION: CT HEAD WITHOUT CONTRAST CT CERVICAL SPINE WITHOUT CONTRAST CLINICAL INFORMATION: Trauma. Pain. COMPARISON: 07/19/2023. TECHNIQUE: Contiguous axial imaging was performed through the head and cervical spine without intravenous administration of contrast. Sagittal and coronal reformatted images also obtained. This CT examination was performed using dose optimization techniques as appropriate, variously including the following: *Automated exposure control *Adjustment of mA and/or kV according to patient size (this includes techniques or standardized protocols for targeted exams where dose is matched to indication/reason for exam; i.e. extremities or head) *Use of iterative reconstruction technique DLP: 1027 mGy-cm FINDINGS: There is cerebral volume loss with prominence of the lateral and the third ventricles. The cortical sulci are widened appropriately. The fourth ventricle and basal cisterns are normally outlined. There is no acute territorial defect, hemorrhage or midline shift. The extra-axial spaces are unremarkable. Calvarium/scalp: Calvarium is intact. There is right parieto-occipital scalp soft tissue swelling. Maxillofacial sinuses and mastoids: Clear as visualized. Cervical spine: There is again seen grade 1 anterolisthesis C4 over C5. There is diffuse mapd-et-xasoxhoi cervical disc degenerative change with multilevel loss of disc space, endplate change and posterior osteophytes associated with diffuse ncsx-bm-djrxidwe facet osteoarthritic hypertrophic change with multilevel mild to moderate spinal canal and neuroforaminal narrowing. No fracture is seen. The soft tissues are unremarkable. CT/CT cervical spine wo IV con IMPRESSION: HEAD: No acute intracranial finding. Right parieto-occipital scalp soft tissue swelling. CERVICAL SPINE: 1. No acute fracture or dislocation seen. 2. There is diffuse ytaz-ic-wjszwxvq cervical spondylosis with multilevel mild to moderate spinal canal and neuroforaminal narrowing. 3. Grade 1 anterolisthesis C4 over C5 is stable.
--- NOTE | ~2023-09-23 | CT_ITS ---
EXAMINATION: CT HEAD WITHOUT CONTRAST CT CERVICAL SPINE WITHOUT CONTRAST CLINICAL INFORMATION: Multiple falls. COMPARISON: 07/18/2023. TECHNIQUE: Contiguous axial imaging was performed through the head and cervical spine without intravenous administration of contrast. Sagittal and coronal reformatted images also obtained. This CT examination was performed using dose optimization techniques as appropriate, variously including the following: *Automated exposure control *Adjustment of mA and/or kV according to patient size (this includes techniques or standardized protocols for targeted exams where dose is matched to indication/reason for exam; i.e. extremities or head) *Use of iterative reconstruction technique DLP: 1740 mGy-cm FINDINGS: There is cerebral volume loss with prominence of the lateral and the third ventricles. The cortical sulci are widened appropriately. The fourth ventricle and basal cisterns are normally outlined. There is no acute territorial defect, hemorrhage or midline shift. The extra-axial unremarkable. Calvarium/scalp: Intact. Maxillofacial sinuses and mastoids: Clear as visualized. Cervical spine: Motion limits evaluation. There is grade 1 anterolisthesis C4 over C5. There is moderate C2-C3, C5-C6 and C6-C7 disc degenerative change and mild disc degenerative change throughout the remaining cervical spine with loss of disc space, endplate change and posterior osteophytes associated with mild to moderate diffuse facet osteoarthritic hypertrophic change with multilevel spinal canal narrowing which is nrov-ew-fvrhmgov at C5-C6 and mild the remaining levels as well as multilevel ccgt-at-atedvcyu neuroforaminal narrowing. No fracture is seen. The soft tissues are unremarkable. Visualized upper lung pablo are clear. CT/CT head/brain wo IV con IMPRESSION: 1. No acute intracranial finding. 2. No acute cervical spine fracture or malalignment. 3. Multilevel cervical spondylosis. 4. No significant interval change.
--- NOTE | ~2023-09-23 | XR_ITS ---
EXAMINATION: RIGHT SHOULDER, RIGHT ELBOW CLINICAL INFORMATION: Shoulder and elbow pain after fall COMPARISON: None available. TECHNIQUE: 5 views right shoulder, 3 views right elbow FINDINGS: Marked degenerative changes are seen at the glenohumeral joint with milder degenerative changes seen at the AC joint. No fractures or dislocations. Degenerative changes are seen at the elbow joint without joint effusions seen. Osteophytes arise from the humeral condyles as well as the olecranon and coronoid and radial head. No fractures or dislocations. XR/XR shoulder RT min 2V IMPRESSION: Degenerative changes in the shoulder and elbow without fracture or dislocation.
--- NOTE | ~2023-09-23 | XR_ITS ---
EXAMINATION: RIGHT SHOULDER, RIGHT ELBOW CLINICAL INFORMATION: Shoulder and elbow pain after fall COMPARISON: None available. TECHNIQUE: 5 views right shoulder, 3 views right elbow FINDINGS: Marked degenerative changes are seen at the glenohumeral joint with milder degenerative changes seen at the AC joint. No fractures or dislocations. Degenerative changes are seen at the elbow joint without joint effusions seen. Osteophytes arise from the humeral condyles as well as the olecranon and coronoid and radial head. No fractures or dislocations. XR/XR elbow RT 2V IMPRESSION: Degenerative changes in the shoulder and elbow without fracture or dislocation.
--- NOTE | 2023-09-23 05:18 | ED_ITS ---
HPI - General Adult General Chief complaint: ETOH/Substance Use Stated complaint: etoh Time Seen by Provider: 09/23/23 05:15 Source: EMS Mode of arrival: EMS Limitations: altered mental status History of Present Illness ED Provider: Dr. Rufina Erickson HPI narrative: Patient comes to the emergency room complaining of ETOH. Patient's called jasson. Patient known to drink heavily alcohol daily. According to EMS, the reported that he can not take care of her today, patient is to drawn, patient did not fall today but seems that in the previous few days she has been falling and drinking quite a bit. Patient unable to give any significant history, to intoxicated, awake, talking incongruent Related Data Home Medications ?Medication ?Instructions ?Recorded ?Confirmed gabapentin 300 mg capsule 300 mg PO DAILY 04/28/23 07/19/23 ibuprofen 600 mg tablet 600 mg PO DAILY PRN Pain (Scale 04/28/23 07/19/23 Score 4-6) meclizine 12.5 mg tablet 12.5 mg PO TID PRN Nausea And 04/28/23 07/19/23 Vomiting multivitamin 1 tab PO DAILY 04/28/23 07/19/23 duloxetine 40 mg capsule,delayed 40 mg PO DAILY 05/13/23 07/19/23 release Previous Rx's ?Medication ?Instructions ?Recorded aspirin 81 mg tablet,delayed 81 mg PO DAILY #30 tabs 05/05/23 release disulfiram 250 mg tablet 250 mg PO DAILY #90 tabs 07/25/23 folic acid 1 mg tablet 1 mg PO DAILY #30 tabs 07/25/23 phenobarbital 15 mg tablet 15 mg PO BID PRN withdrawal 07/25/23 symptoms #6 tabs thiamine mononitrate (vit B1) 100 100 mg PO DAILY #90 tabs 07/25/23 mg tablet trazodone 50 mg tablet 50 mg PO BEDTIME PRN insomnia #20 07/25/23 tabs buprenorphine 300 mg/1.5 mL 300 mg (1.5 mL) subcut .every 28 08/20/23 solution,exten.rel.subcutaneous days #1.5 mL syringe (Sublocade) buprenorphine 8 mg-naloxone 2 mg 1 film sublingual DAILY PRN 09/04/23 sublingual film (Suboxone) withdrawal symptoms #10 ea Allergies Allergy/AdvReac Type Severity Reaction Status Date / Time No Known Allergies Allergy Verified 09/23/23 05:19 Review of Systems 2 Review of Systems: Yes Unobtainable due to mental status and Other (ETOH) [facility] Past Medical History Medical History Korsakoff syndrome Thrombocytopenia Alcohol withdrawal syndrome Abscess of axilla, right Rash Encounter for monitoring Suboxone maintenance therapy Hypertension Alcohol use disorder, severe, dependence Opioid use disorder Alcohol abuse Surgical History (Updated 08/02/23 @ 00:02 by Penny Ortega) History of total knee arthroplasty History of gastric surgery Family History Family History Father Lung cancer Social History Social History Household Members: Spouse Housing: House Do you presently have visiting nurse or other home services: No Unable to assess alcohol history related to: Unknown Alcohol intake: current Alcohol intake frequency: 3 or more drinks per day Alcohol type: wine and hard liquor Comment: refuses fall risk alarms Patient Tobacco Use Status: Former Tobacco user Tobacco use type: Cigarette Years Smoked: 2 Smoked in Last 30 Days: No Second Hand Smoke Exposure: No Use of substances other than those prescribed or required for medical reasons: No Advance Directives: No Advance Directives Information Provided: No Do you have a plan to hurt others: No Plan Patient : No service: No Current occupational status: employed Physical Exam ED Vital Signs: Vital Signs - 24 hr 09/23/23 05:16 Temperature 97.6 F Pulse Rate 84 Respiratory Rate 18 Blood Pressure 109/85 Pulse Oximetry 98 Oxygen Delivery Method Room Air BMI result Body Mass Index 40.3 Const Other: Appearance: Alert. Intoxicated No acute distress. Eyes: Pupils equal, round and reactive to light. ENT: Pharynx normal. Neck: Normal inspection. Neck supple. No lymph nodes noted. No crepitus CVS: Normal heart rate and rhythm. Pulses normal. Normal S1 and S2 Respiratory: No respiratory distress. Breath sounds normal. No Wheezing. No rales Abdomen: Soft and nontender. No rigidity. No distention. Skin: Skin warm and dry. Normal skin color. Normal skin turgor. Extremities: No lower extremity edema. No Lacerations. No Rash Neuro: Moving all extremities, unable to participating cranial nerve assessment Psych: Anxious, intoxicated Course Course Course Narrative: -all of patient's labs and imaging pending -my interpretation of labs: Hematology at baseline, patient's LFTs elevated chronically at baseline, ETOH 509 - Medical Decision Making Medical Decision Making MDM Narrative: My interpretation of labs: Patient's alcohol is higher than ever, 509, yet patient is awake and combative, patient's hematology at baseline, chemistry no acute abnormality, LFTs chronically elevated, negative troponin and BNP -my interpretation of CT scan of the head: No obvious acute intracranial bleed, seems that the patient moved during the CT scan -sign-out given to my colleague Dr. Langston Differential Diagnosis Differential Diagnoses: The differential diagnosis associated with the presentation includes (Alcohol intoxication, alcohol dependence, falls, polysubstance abuse) Admission/Observation Consideration of admission/observation: Escalation of care including admission/observation considered (Under physician observation, it will be hours until patient becomes sober) Lab Data [facility] [place] Lab Attestation statement: I reviewed the patient's lab results. 09/23/23 05:27 09/23/23 05:27 Labs: Lab Results 09/23/23 Range/Units 05:27 WBC 2.4 L (4.8-10.8) X10*3/uL RBC 3.53 L D (4.20-5.50) X10*6/uL Hgb 10.9 L D (12.0-16.0) g/dl Hct 31.5 L D (37.0-47.0) % MCV 89.2 (80.0-98.0) fL MCH 30.9 (27.0-33.0) pg MCHC 34.6 (31.0-35.0) g/dl RDW 16.9 H (11.0-16.0) % Plt Count 131 L (160-400) X10*3/uL MPV 8.8 L (9.4-12.3) fL Immature Gran % (Auto) 0.4 (0.0-0.4) % Neut % (Auto) 44.4 L (45-73) % Lymph % (Auto) 40.9 H (20-40) % [place] % (Auto) 8.4 (2-11) % Eos % (Auto) 3.4 (0-4) % Baso % (Auto) 2.5 H (0-2) % Lymph # (Auto) 1.0 L (1.2-4.9) X10*3/uL [place] # (Auto) 0.2 (0.1-1.2) X10*3/uL Eos # (Auto) 0.1 (0.0-0.4) X10*3/uL Baso # (Auto) 0.1 (0.0-0.2) X10*3/uL Abs Immat Gran (auto) 0.01 (0.00-0.03) X10*3/uL Absolute Neuts (auto) 1.1 L (2.0-8.3) x10*3/uL Absolute Nucleated RBC 0.000 (0.0-0.012) X10*3/uL Nucleated RBC % (auto) 0.0 (0.0-0.2) /100WBC Smear Tech's Comments VERIFIED PT 10.5 L (11.1-13.3) SEC INR 0.9 (0.9-1.1) Sodium 143 (135-145) mmol/L Potassium 3.6 (3.3-5.1) mmol/L Chloride 101 (96-108) mmol/L Carbon Dioxide 30 H (22-29) mmol/L Anion Gap 16 (12-20) BUN 5 L (9-16) mg/dL Creatinine 0.49 L (0.5-1.4) mg/dL Estim Creat Clear Calc 167.7 Estimated GFR > 60 Random Glucose 91 (60-115) mg/dL Calcium 8.4 (8.4-10.2) mg/dL Magnesium 1.7 (1.6-2.6) mg/dL Total Bilirubin 1.2 H (0.0-1.0) mg/dL Direct Bilirubin 0.8 H (0.0-0.5) mg/dL AST 318 H (5-31) U/L ALT 70 H (0-31) U/L Alkaline Phosphatase 323 H (39-117) U/L Troponin I High Sens 3.1 (<3.5-17.0) ng/L B-Natriuretic Peptide 29 (<100) pg/mL Total Protein 6.4 L (6.5-8.0) g/dL Albumin 3.4 L (3.5-5.0) g/dL Ethyl Alcohol 509 H* mg/dL Independent Interpretation I performed an independent interpretation of an: CT Scan Radiology Impression Discussion of test interpretation with radiology: I have reviewed the radiologist's reading. Radiologist Impression: FINDINGS: There is cerebral volume loss with prominence of the lateral and the third ventricles. The cortical sulci are widened appropriately. The fourth ventricle and basal cisterns are normally outlined. There is no acute territorial defect, hemorrhage or midline shift. The extra-axial unremarkable. Calvarium/scalp: Intact. Maxillofacial sinuses and mastoids: Clear as visualized. Cervical spine: Motion limits evaluation. There is grade 1 anterolisthesis C4 over C5. There is moderate C2-C3, C5-C6 and C6-C7 disc degenerative change and mild disc degenerative change throughout the remaining cervical spine with loss of disc space, endplate change and posterior osteophytes associated with mild to moderate diffuse facet osteoarthritic hypertrophic change with multilevel spinal canal narrowing which is [id number] at C5-C6 and mild the remaining levels as well as multilevel wvoy-pl-dzvyjgig neuroforaminal narrowing. No fracture is seen. The soft tissues are unremarkable. Visualized upper lung pablo are clear. CT/CT head/brain wo IV con IMPRESSION: 1. No acute intracranial finding. 2. No acute cervical spine fracture or malalignment. 3. Multilevel cervical spondylosis. 4. No significant interval change. Independent Historian Clinical information obtained from an independent historian. History obtained from or confirmed by: EMS Critical Care Time Critical Care Time Critical Care Time: Yes Total Critical Care Time: 45 Attestation: I have personally provided critical care time. Time includes review of lab data, radiology results, discussion with consultants, and monitoring for potential decompensation. Intervention performed as documented. Discharge Plan Discharge Clinical Impression: Alcohol intoxication Patient Disposition: Still a Patient Prescriptions: No Action Sublocade 300 mg/1.5 mL solution, extended rel syringe 300 mg subcut .every 28 days Qty: 1.5 5RF buprenorphine-naloxone [Suboxone] 8-2 mg film 1 film sublingual DAILY PRN (Reason: withdrawal symptoms) Qty: 10 0RF multivitamin Tablet 1 tab PO DAILY meclizine 12.5 mg Tablet 12.5 mg PO TID PRN (Reason: Nausea And Vomiting) gabapentin 300 mg capsule 300 mg PO DAILY ibuprofen 600 mg tablet 600 mg PO DAILY PRN (Reason: Pain (Scale Score 4-6)) aspirin 81 mg Tablet,Delayed Release (Dr/Ec) 81 mg PO DAILY Qty: 30 0RF duloxetine 40 mg capsule,delayed release(DR/EC) 40 mg PO DAILY disulfiram 250 mg tablet 250 mg PO DAILY Qty: 90 0RF folic acid 1 mg tablet 1 mg PO DAILY Qty: 30 3RF thiamine mononitrate (vit B1) 100 mg tablet 100 mg PO DAILY Qty: 90 3RF phenobarbital 15 mg tablet 15 mg PO BID PRN (Reason: withdrawal symptoms) Qty: 6 0RF trazodone 50 mg tablet 50 mg PO BEDTIME PRN (Reason: insomnia) Qty: 20 0RF Print Language: Kinyarwanda
[2023-09-23 05:33] LABS: Basophils Absolute Auto 0.1 X10*3/uL (0.0-0.2); Basophils Percent Auto 2.5 % (0-2); Eosinophils Absolute Auto 0.1 X10*3/uL (0.0-0.4); Eosinophils Percent Auto 3.4 % (0-4); Hematocrit 31.5 % (37.0-47.0); Hemoglobin 10.9 g/dl (12.0-16.0); Imm Gran Abs Auto 0.01 X10*3/uL (0.00-0.03); Imm Gran Pct Auto 0.4 % (0.0-0.4); Lymphocytes Percent Auto 40.9 % (20-40); MANUAL DIFF FLAG SCAN; Mean Corpuscular HGB Conc 34.6 g/dl (31.0-35.0); Mean Corpuscular Hemoglobin 30.9 pg (27.0-33.0); Mean Corpuscular Volume 89.2 fL (80.0-98.0); Mean Platelet Volume 8.8 fL (9.4-12.3); Monocytes Absolute Auto 0.2 X10*3/uL (0.1-1.2); Monocytes Percent Auto 8.4 % (2-11); Neutrophils Absolute Auto 1.1 x10*3/uL (2.0-8.3); Neutrophils Percent Auto 44.4 % (45-73); Platelet Count 131 X10*3/uL (160-400); Red Blood Count 3.53 X10*6/uL (4.20-5.50); Red Cell Distribution Width 16.9 % (11.0-16.0); SCAN SMEAR FLAG 1; White Blood Count 2.4 X10*3/uL (4.8-10.8)
[2023-09-23 05:35] LABS: SLIDE REVIEW VERIFIED
[2023-09-23 05:39] LABS: INTERNATIONAL NORM RATIO 0.9 (0.9-1.1); Prothrombin Time 10.5 SEC (11.1-13.3)
[2023-09-23 05:58] LABS: Alanine Aminotransferase 70 U/L (0-31); Albumin Level 3.4 g/dL (3.5-5.0); Alkaline Phosphatase 323 U/L (39-117); Anion Gap 16 (12-20); Aspartate Amino Transferase 318 U/L (5-31); Bilirubin Direct 0.8 mg/dL (0.0-0.5); Bilirubin Total 1.2 mg/dL (0.0-1.0); Blood Urea Nitrogen 5 mg/dL (9-16); Calcium 8.4 mg/dL (8.4-10.2); Carbon Dioxide 30 mmol/L (22-29); Chloride 101 mmol/L (96-108); Creatinine Clr Calc Pharmacy 167.7; Estimated Glomerular Filt Rate > 60; Ethanol 509 mg/dL; Glucose Random 91 mg/dL (60-115); Magnesium 1.7 mg/dL (1.6-2.6); Potassium 3.6 mmol/L (3.3-5.1); Sodium 143 mmol/L (135-145); Total Protein 6.4 g/dL (6.5-8.0)
[2023-09-23 06:01] LABS: B Type Natriuretic Peptide 29 pg/mL (<100); Troponin-I High Sensitivity 3.1 ng/L (<3.5-17.0)
[2023-09-23] MEDS: LORazepam 1 MG TABLET 2 MG PO ×4 (08:03→22:38)
--- NOTE | 2023-09-23 08:04 | PC.NURSE ---
this RN resumed care of pt at 0700. a&ox4. vss and up to date. nsr on the risk management intern. updated CIWA= 7. PRN ativan utilized. effectiveness pending. no sob/wob noted. respirations even/unlabored. pt remains phys obs at this time. plan of care ongoing. call hazel placed within reach.
--- NOTE | 2023-09-23 11:05 | PC.NURSE ---
pt asleep/resting in no apparent distress. nsr on the serology teacher. no sob/wob noted. respirations even/unlabored. lights dimmed. call hazel placed within reach.
--- NOTE | 2023-09-23 13:20 | PC.NURSE ---
pt sitting upright/eating lunch in no apparent distress. respirations remain even/unlabored. plan of care ongoing. call hazel placed within reach.
--- NOTE | 2023-09-23 14:10 | PC.NURSE ---
2:1 assist to the commode as pt has an unsteady gait - UA obtained/sent to lab.
[2023-09-23 14:14] LABS: Appearance Urine Clear; Color Urine Dark Yellow; Glucose Urine UA Negative (Negative); Leukocyte Esterase Urine Trace (Negative); Nitrite Urine Negative (Negative); PH 6.5 (5.0-9.0); UMIC TRIGGER UACC YES; Urine Blood Negative (Negative); Urine Ketones Negative (Negative); Urine Protein Negative (Neg-Trace)
[2023-09-23 14:16] LABS: Bacteria Urine None Seen (None Seen); Hyaline Casts Urine 0-2 /LPF (0-2); RBC Urine 0-2 /HPF (0-2); WBC Urine 0-5 /HPF (0-5)
[2023-09-23 14:24] LABS: Amphetamine Screen Urine Not Detected (Not Detect); Barbiturates, Urine Not Detected (Not Detect); Benzodiazepines Screen Urine Not Detected (Not Detect); Buprenorphine Scr Positive (Not Detect); Cannabinoid Screen Urine Not Detected (Not Detect); Cocaine Screen Urine Not Detected (Not Detect); Fentanyl, urine Not Detected (Not Detect); Methadone Screen, Urine Not Detected (Not Detect); Opiate Screen Urine Not Detected (Not Detect); Oxycodone Screen Urine Not Detected (Not Detect); Phencyclidine Screen Urine Not Detected (Not Detect)
[2023-09-23] MEDS: Furosemide 40 MG TABLET PO (15:58)
--- NOTE | 2023-09-23 16:02 | PC.NURSE ---
updated CIWA = 6 at this time. DEJAH Gr notified/aware. PA bedside/assessing pt at this time. provider attempting to discharge pt home - pt then proceeded to say she is unable to go home at this time d/t stating she's been using a wheelchair x 3 weeks for ambulation and is unable to be independent at home. pt now transitioned to PT/CM. PRN ativan order to scheduled at this time d/t presentation of pt. med rec completed. resting comfortably in no apparent distress. plan of care ongoing. call hazel placed within reach.
[2023-09-23] MEDS: cephALEXin 500 MG CAPSULE PO ×2 (16:51→22:37)
--- NOTE | 2023-09-23 17:26 | PHA.MEDREC ---
Addendum entered by Adriana Vela 09/23/23 17:38: Patient also stated she is on trazadone 50 mg at bedtime, however there is no claim. Asked where she picked it up but she fell back asleep. Original Note: Pharmacy Consult ? Medication Reconciliation Pharmacy has completed the medication reconciliation. Spoke to patient to confirm med list. patient was in and out of sleep while talking to her. she was able to confirm meds. Patient states she is on Buprenorphine 300mg/1.5ml inj every 28 days. she stares her last dose was last 09-17-23.
--- NOTE | 2023-09-23 17:42 | PHA.MEDREC ---
Pharmacy Consult ? Medication Reconciliation Pharmacy has completed the medication reconciliation . Spoke to patient to confirm med list. patient was in and out of sleep while talking to her. she was able to confirm meds. Patient states she is on Buprenorphine 300mg/1.5ml inj every 28 days. she stares her last dose was last 09-17-23. Patient aslo states she is on trazadone 50 mg at bedtime
--- NOTE | 2023-09-23 18:06 | MHC.EDTECH ---
I was help the patient to the bedside commode with two assist, she felt very dizzy and her heart rate went to 180-160 , we put her on the bedpan after that, her heart rate went back to normal after that.
--- NOTE | 2023-09-23 19:39 | MHC.CM.ED ---
CM received consult with PT pending. Pt had ETOH level over 500. Wakes for short periods and then falls back to sleep. Will conduct CM Interview when patient is awake and sober.
--- NOTE | 2023-09-23 23:23 | P.HPHOSP_ITS ---
History of Present Illness Date of Service: 09/23/23 Chief Complaint: Alcohol withdrawal This is a 52-year-old female with pertinent history of alcohol use disorder, opioid use disorder on Suboxone, mood disorder who presents to the emergency department for concerns of alcohol withdrawal. Patient states her last drink was on the day of presentation. Patient admits she has been drinking heavily every day. Admits poor p.o. intake whenever she drinks alcohol. Does have a history of alcohol withdrawal. No history of alcohol withdrawal seizures. Patient states she has been having anxiety, visual hallucination since she stopped drinking. Also feels weak and is falling frequently which is getting progressively worse over the last 3 weeks. No changes in vision. No fever, chills, chest discomfort, palpitations, shortness of breath, abdominal pain, changes in urinary or bowel habits. In the emergency department, patient was initiated on phenobarb protocol. Review of Systems 2 Constitutional: Constitutional: Reports fatigue, Reports malaise, Reports poor appetite and Reports weakness Cardiovascular: Cardiovascular: Reports no additional cardiovascular complaints Respiratory: Respiratory: Reports no additional respiratory complaints Gastrointestinal: Gastrointestinal: Reports no additional gastrointestinal complaints Genitourinary: Genitourinary: Reports no additional female genitourinary complaints Neurologic: Reports tremor(s) and Reports weakness Psychiatric: Psychiatric: Reports anxiety and Reports visual hallucinations Endocrine: Endocrine: Reports fatigue PMFSH Medical History Korsakoff syndrome Thrombocytopenia Alcohol withdrawal syndrome Abscess of axilla, right Rash Encounter for monitoring Suboxone maintenance therapy Hypertension Alcohol use disorder, severe, dependence Opioid use disorder Alcohol abuse Family History Father Lung cancer Surgical History History of total knee arthroplasty History of gastric surgery Social History Household Members: Spouse Housing: House Do you presently have visiting nurse or other home services: No Unable to assess alcohol history related to: Unknown Alcohol intake: current Alcohol intake frequency: 3 or more drinks per day Alcohol type: wine and hard liquor Comment: refuses fall risk alarms Patient Tobacco Use Status: Former Tobacco user Tobacco use type: Cigarette Years Smoked: 2 Smoked in Last 30 Days: No Second Hand Smoke Exposure: No Use of substances other than those prescribed or required for medical reasons: No Advance Directives: No Advance Directives Information Provided: No Do you have a plan to hurt others: No Plan Nutrition Risks: No Nutritional Risk Patient : No service: No Current occupational status: employed Meds Allergies Allergy/AdvReac Type Severity Reaction Status Date / Time No Known Allergies Allergy Verified 09/23/23 05:19 Active Medications: Current Medications Aspirin (Aspirin Enteric Coated 81 Mg Tablet.) 81 mg PO DAILY [facility] Cephalexin HCl (Cephalexin 500 Mg Capsule) 500 mg PO Q6H [place] Stop: 09/30/23 15:59 Last Admin: 09/23/23 22:37 Dose: 500 mg Duloxetine HCl (Duloxetine Hcl 60 Mg Capsule.) 60 mg PO DAILY [facility] Folic Acid (Folic Acid 1 Mg Tablet) 1 mg PO DAILY [facility] Gabapentin (Gabapentin 300 Mg Capsule) 300 mg PO DAILY [facility] Meclizine HCl (Meclizine Hcl 12.5 Mg Tablet) 12.5 mg PO TID PRN PRN Reason: Nausea And Vomiting Multivitamins/Vitamin C (Multivitamin Tablet) 1 tab PO DAILY [facility] Pharmacy Consult (Consult Rx Etoh Phenob Im/Po) 1 each MISCELLANE ONCE PRN; Protocol PRN Reason: Consult order Thiamine HCl (Thiamine Hcl 100 Mg Tablet) 100 mg PO DAILY [facility] Trazodone HCl (Trazodone Hcl 50 Mg Tablet) 50 mg PO BEDTIME PRN PRN Reason: insomnia Home Medications ?Medication ?Instructions ?Recorded ?Confirmed ?Last Taken ?Type gabapentin 300 mg capsule 300 mg PO DAILY 04/28/23 09/23/23 05/13/23 History multivitamin 1 tab PO DAILY 04/28/23 09/23/23 05/13/23 History buprenorphine 300 mg/1.5 mL 300 mg subcut Q28D 09/23/23 09/23/23 09/17/23 History solution,exten.rel.subcutaneous syringe (Sublocade) duloxetine 60 mg capsule,delayed 60 mg PO DAILY 09/23/23 09/23/23 Unknown History release trazodone 50 mg tablet 50 mg PO BEDTIME 09/23/23 09/23/23 Unknown History Physical Exam 2 Vital Signs and Narrative: Vital Signs: Last Vital Signs Temp 99.0 F 09/23/23 22:05 Pulse 114 H 09/23/23 22:05 Resp 18 09/23/23 22:05 BP 134/92 H 09/23/23 22:05 Pulse Ox 94 09/23/23 22:05 O2 Del Method Room Air 09/23/23 22:05 BMI result Body Mass Index 40.3 Middle-aged female lying in bed in no distress Neck supple, no JVD Regular rate and rhythm, S1-S2 heard Regular breath sounds bilaterally, no wheezing or crackles appreciated Abdomen soft nontender, no guarding, no rigidity Patient is awake, alert and oriented to self, place, time and person ; no focal motor deficit Psych: Anxious No pedal edema Results Labs 09/23/23 05:27 09/23/23 05:27 Labs: Laboratory Results - last 24 hr 09/23/23 09/23/23 05:27 14:02 MCV 89.2 MCH 30.9 MCHC 34.6 RDW 16.9 H Plt Count 131 L MPV 8.8 L Immature Gran % (Auto) 0.4 Neut % (Auto) 44.4 L Lymph % (Auto) 40.9 H [place] % (Auto) 8.4 Eos % (Auto) 3.4 Baso % (Auto) 2.5 H Lymph # (Auto) 1.0 L [place] # (Auto) 0.2 Eos # (Auto) 0.1 Baso # (Auto) 0.1 Abs Immat Gran (auto) 0.01 Absolute Neuts (auto) 1.1 L Absolute Nucleated RBC 0.000 Nucleated RBC % (auto) 0.0 Smear Tech's Comments VERIFIED PT 10.5 L INR 0.9 Anion Gap 16 Estim Creat Clear Calc 167.7 Estimated GFR > 60 Random Glucose 91 Calcium 8.4 Magnesium 1.7 Total Bilirubin 1.2 H Direct Bilirubin 0.8 H AST 318 H ALT 70 H Alkaline Phosphatase 323 H Troponin I High Sens 3.1 B-Natriuretic Peptide 29 Total Protein 6.4 L Albumin 3.4 L Urine Color Dark Yellow Urine Appearance Clear Urine pH 6.5 Ur Specific [place] 1.010 Urine Protein Negative Urine Glucose (UA) Negative Urine Ketones Negative Urine Blood Negative Urine Nitrite Negative Ur Leukocyte Esterase Trace H Urine RBC 0-2 Urine WBC 0-5 Ur Squamous Epith Cells 6-10 Urine Bacteria None Seen Hyaline Casts 0-2 Urine Opiates Screen Not Detected Ur Buprenorphine Scrn Positive H Ur Oxycodone Screen Not Detected Urine Methadone Screen Not Detected Urine Fentanyl Screen Not Detected Ur Barbiturates Screen Not Detected Ur Phencyclidine Scrn Not Detected Ur Amphetamines Screen Not Detected U Benzodiazepines Scrn Not Detected Urine Cocaine Screen Not Detected U Marijuana (THC) Screen Not Detected Ethyl Alcohol 509 H* Imaging Radiologist's Impressions: Impressions Cervical Spine CT 09/23/23 05:55 IMPRESSION: 1. No acute intracranial finding. 2. No acute cervical spine fracture or malalignment. 3. Multilevel cervical spondylosis. 4. No significant interval change. Head CT 09/23/23 05:55 IMPRESSION: 1. No acute intracranial finding. 2. No acute cervical spine fracture or malalignment. 3. Multilevel cervical spondylosis. 4. No significant interval change. Assessment and Plan (1) Alcohol intoxication: Status: Acute Plan This is a 52-year-old female with pertinent history of alcohol use disorder, opioid use disorder on Suboxone, mood disorder who presents to the emergency department for concerns of alcohol withdrawal. #. Alcohol use disorder concerns of alcohol withdrawal: Initiated on phenobarb protocol the ER. Monitor CIWA. On thiamine and folic acid. Consulted Addiction Team, appreciate assistance. ?previously on disulfiram #. Generalized weakness with frequent falls likely in the setting of above and progessive debility: Consulting Physical therapy to evaluate and treat. Obtaining B1, B12 and folate. #. Mood disorder: Continue duloxetine and trazodone #. Opioid use disorder on Suboxone #. Normocytic anemia: Hemoglobin above transfusion threshold #. Thrombocytopenia: Chronic and stable #. Obesity: Counseled regarding diet #. Elevated liver enzymes in the setting of alcohol use disorder DVT prophylaxis: Lovenox Full code Admit as inpatient and will require two night minimum hospital stay for close monitoring of mentation, monitor CIWA, treatment of alcohol withdrawal (as above), which is not possible in a lesser acute setting. Quality Stroke Does the patient have a stroke diagnosis?: No VTE Prior VTE?: No VTE Risk Level:: Medical - moderate - high VTE Device Contraindication: Treatment Not Indicated VTE Drug Contraindication: N/A - Med Ordered
[2023-09-23] MEDS: PHENobarbitaL sodium 130 MG/ML IM ONCE 236 MG IM (23:50)
[2023-09-23] MEDS: 0.9 % Sodium Chloride Flush 3 ML SYRINGE IVFLUSH (23:51)
[2023-09-24] MEDS: Thiamine HCL 500 MG in 0.9 % Sodium Chloride 100 ML 210 MG IV (00:40)
[2023-09-24] MEDS: PHENobarbitaL sodium 130 MG/ML VIAL IM Q3Hx2 177 MG IM ×2 (02:59→05:45)
[2023-09-24 03:02] VITALS: BP 138/89; PULSE 105; RESP 16; TEMP 36.9; O2SAT 97
--- NOTE | 2023-09-24 03:04 | PC.NURSE ---
Patient is alert and oriented to self and place, not to current date. She complaints of chronic pain in lower back 3/10 at present, per patient pain is at tolerable level. VSS. Patient medicated per JUN. CIWA score 6. Pure wick in place. Patient requested kimberly arun, butter and jelly sandwich, given and tolerated well. 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
[2023-09-24 05:30] LABS: Basophils Percent Auto 1.3 % (0-2); Eosinophils Percent Auto 0.4 % (0-4); Hematocrit 29.3 % (37.0-47.0); Hemoglobin 10.2 g/dl (12.0-16.0); Imm Gran Abs Auto 0.01 X10*3/uL (0.00-0.03); Imm Gran Pct Auto 0.4 % (0.0-0.4); Lymphocytes Absolute Auto 0.3 X10*3/uL (1.2-4.9); Lymphocytes Percent Auto 13.5 % (20-40); MANUAL DIFF FLAG SCAN; Mean Corpuscular HGB Conc 34.8 g/dl (31.0-35.0); Mean Corpuscular Hemoglobin 30.8 pg (27.0-33.0); Mean Corpuscular Volume 88.5 fL (80.0-98.0); Mean Platelet Volume 9.8 fL (9.4-12.3); Monocytes Absolute Auto 0.2 X10*3/uL (0.1-1.2); Monocytes Percent Auto 8.3 % (2-11); Neutrophils Absolute Auto 1.7 x10*3/uL (2.0-8.3); Neutrophils Percent Auto 76.1 % (45-73); Red Blood Count 3.31 X10*6/uL (4.20-5.50); Red Cell Distribution Width 16.9 % (11.0-16.0); SCAN SMEAR FLAG 1
[2023-09-24 05:46] LABS: Anion Gap 15 (12-20); Blood Urea Nitrogen 5 mg/dL (9-16); Calcium 8.2 mg/dL (8.4-10.2); Carbon Dioxide 31 mmol/L (22-29); Chloride 93 mmol/L (96-108); Creatinine Clr Calc Pharmacy 182.6; Estimated Glomerular Filt Rate > 60; Glucose Random 114 mg/dL (60-115); Potassium 3.2 mmol/L (3.3-5.1); Sodium 136 mmol/L (135-145)
[2023-09-24 05:47] LABS: White Blood Count 2.3 X10*3/uL (4.8-10.8)
[2023-09-24 05:48] LABS: Platelet Count 85 X10*3/uL (160-400)
[2023-09-24 05:50] LABS: SLIDE REVIEW VERIFIED
[2023-09-24 06:22] VITALS: BP 140/88; PULSE 101; RESP 20; TEMP 36.8; O2SAT 94
[2023-09-24 06:22] LABS: Folate 7.7 ng/mL (> or = 4.0); Vitamin B12 317 pg/mL (200-900)
[2023-09-24 08:00] VITALS: BP 138/71; PULSE 98; RESP 22; TEMP 36.1; O2SAT 94
[2023-09-24 08:52] VITALS: BMI 40.3
[2023-09-24] MEDS: 0.9 % Sodium Chloride Flush 3 ML SYRINGE IVFLUSH ×3 (09:01→20:01)
[2023-09-24] MEDS: Multivitamin TABLET 1 TAB PO (09:02)
[2023-09-24] MEDS: Acetaminophen 325 MG TABLET 650 MG PO (09:02)
[2023-09-24] MEDS: Thiamine HCL 100 MG TABLET PO (09:02)
[2023-09-24] MEDS: Potassium Chloride Packet 20 MEQ PACKET 40 MEQ PO (09:02)
[2023-09-24] MEDS: DULoxetine HCl 60 MG CAPSULE.DR PO (09:03)
[2023-09-24] MEDS: Folic Acid 1 MG TABLET PO (09:03)
[2023-09-24] MEDS: Aspirin Enteric Coated 81 MG TABLET.DR PO (09:03)
[2023-09-24] MEDS: Gabapentin 300 MG CAPSULE PO (09:03)
--- NOTE | 2023-09-24 10:33 | P.PNIM_ITS ---
Subjective Subjective Date of Service: 09/24/23 Interval History: seen and evaluated this morning having tremors and reporting hallucinating and seeing people overnight no other events reported Review of Systems Review of Systems: Yes all other systems are reviewed and are negative Physical Exam 2 Vital Signs: Vital Signs: Last Vital Signs Temp 96.9 F 09/24/23 08:00 Pulse 98 09/24/23 08:00 Resp 22 H 09/24/23 08:00 BP 138/71 09/24/23 08:00 Pulse Ox 94 09/24/23 08:00 O2 Del Method Room Air 09/24/23 08:00 BMI result Body Mass Index 40.3 Const: Other: Constitutional : Awake, interactive, restless, anxious Neck : Normal inspection, Supple Cardiovascular : RRR, no JVP, no lower extremity edema Respiratory : good bilateral air entry, no crackles, wheezes or rhonchi Gastrointestinal: soft, lax, Normal bowel sounds, Non tender Skin : Warm, Dry Neurological : Alert & oriented x3, No focal deficit , having tremors Objective Data Active Medications Acetaminophen (Acetaminophen 325 Mg Tablet) 650 mg PO Q6H PRN PRN Reason: Pain, Mild (Pain Scale 1-3), fever or headache Last Admin: 09/24/23 09:02 Dose: 650 mg Documented By: HEAVEN Aspirin (Aspirin Enteric Coated 81 Mg Tablet.) 81 mg PO DAILY [facility] Last Admin: 09/24/23 09:03 Dose: 81 mg Documented By: HEAVEN Calcium Carbonate (Calcium Carbonate 750 Mg Tab.Chew) 750 mg PO Q4H PRN PRN Reason: Heartburn Duloxetine HCl (Duloxetine Hcl 60 Mg Capsule.) 60 mg PO DAILY [facility] Last Admin: 09/24/23 09:03 Dose: 60 mg Documented By: HEAVEN Enoxaparin Sodium (Enoxaparin Sodium 40 Mg/0.4 Ml Syringe) 40 mg SUBCUT Q24H [facility] Last Admin: 09/24/23 09:06 Dose: Not Given Documented By: HEAVEN Non-Admin Reason: Patient Refused Folic Acid (Folic Acid 1 Mg Tablet) 1 mg PO DAILY [facility] Last Admin: 09/24/23 09:03 Dose: 1 mg Documented By: HEAVEN Gabapentin (Gabapentin 300 Mg Capsule) 300 mg PO DAILY [facility] Last Admin: 09/24/23 09:03 Dose: 300 mg Documented By: HEAVEN Magnesium Hydroxide (Milk Of Magnesia 30 Ml Oral.Susp) 30 ml PO DAILY PRN PRN Reason: Constipation Meclizine HCl (Meclizine Hcl 12.5 Mg Tablet) 12.5 mg PO TID PRN PRN Reason: Nausea And Vomiting Melatonin (Melatonin 3 Mg Tablet) 6 mg PO BEDTIME PRN PRN Reason: Insomnia Multivitamins/Vitamin C (Multivitamin Tablet) 1 tab PO DAILY [facility] Last Admin: 09/24/23 09:02 Dose: 1 tab Documented By: HEAVEN Pharmacy Consult (Consult Rx Etoh Phenob Im/Po) 1 each MISCELLANE ONCE PRN; Protocol PRN Reason: Consult order Phenobarbital (Phenobarbital 15 Mg Tablet) 45 mg PO BID@0600,1800 [facility]; Protocol Stop: 09/26/23 06:01 Phenobarbital (Phenobarbital 15 Mg Tablet) 15 mg PO BID@0600,1800 [facility]; Protocol Stop: 09/28/23 06:01 Phenobarbital (Phenobarbital 15 Mg Tablet) 15 mg PO DAILY@0600 [facility]; Protocol Stop: 09/30/23 06:01 Sodium Chloride (0.9 % Sodium Chloride Flush 3 Ml Syringe) [facility] Last Admin: 09/24/23 09:01 Dose: 3 ml Documented By: HEAVEN Thiamine HCl (Thiamine Hcl 100 Mg Tablet) 100 mg PO DAILY [facility] Last Admin: 09/24/23 09:02 Dose: 100 mg Documented By: HEAVEN Trazodone HCl (Trazodone Hcl 50 Mg Tablet) 50 mg PO BEDTIME [facility] Labs 09/24/23 05:17 09/24/23 05:17 Labs: Laboratory Results - last 24 hr 09/23/23 09/24/23 14:02 05:17 MCV 88.5 MCH 30.8 MCHC 34.8 RDW 16.9 H Plt Count 85 L D MPV 9.8 Immature Gran % (Auto) 0.4 Neut % (Auto) 76.1 H Lymph % (Auto) 13.5 L Graham % (Auto) 8.3 Eos % (Auto) 0.4 Baso % (Auto) 1.3 Lymph # (Auto) 0.3 L Graham # (Auto) 0.2 Eos # (Auto) 0.0 Baso # (Auto) 0.0 Abs Immat Gran (auto) 0.01 Absolute Neuts (auto) 1.7 L Absolute Nucleated RBC 0.000 Nucleated RBC % (auto) 0.0 Smear Tech's Comments VERIFIED Anion Gap 15 Estim Creat Clear Calc 182.6 Estimated GFR > 60 Random Glucose 114 Calcium 8.2 L Vitamin B12 317 Folate 7.7 Urine Color Dark Yellow Urine Appearance Clear Urine pH 6.5 Ur Specific [place] 1.010 Urine Protein Negative Urine Glucose (UA) Negative Urine Ketones Negative Urine Blood Negative Urine Nitrite Negative Ur Leukocyte Esterase Trace H Urine RBC 0-2 Urine WBC 0-5 Ur Squamous Epith Cells 6-10 Urine Bacteria None Seen Hyaline Casts 0-2 Urine Opiates Screen Not Detected Ur Buprenorphine Scrn Positive H Ur Oxycodone Screen Not Detected Urine Methadone Screen Not Detected Urine Fentanyl Screen Not Detected Ur Barbiturates Screen Not Detected Ur Phencyclidine Scrn Not Detected Ur Amphetamines Screen Not Detected U Benzodiazepines Scrn Not Detected Urine Cocaine Screen Not Detected U Marijuana (THC) Screen Not Detected Assessment and Plan (1) Alcohol intoxication: Status: Acute (2) Falls frequently: Status: Acute Plan This is a 52-year-old female with pertinent history of alcohol use disorder, opioid use disorder on Suboxone, mood disorder who presents to the emergency department for concerns of alcohol withdrawal. # Alcohol use disorder with acute alcohol withdrawal IV fluids Continue phenobarb protocol Monitor CIWA thiamine and folic acid Addiction Team to follow # Frequent falls and generalized weakness likely in the setting of Alcoholism Physical therapy to evaluate B12 and folate. # Mood disorder: Continue duloxetine and trazodone # Opioid use disorder on Suboxone # Normocytic anemia: Hemoglobin above transfusion threshold # Thrombocytopenia: Chronic and stable # Obesity: Counseled regarding diet # Elevated liver enzymes in the setting of alcohol use disorder DVT prophylaxis: Lovenox Full code Admit as inpatient and will require overnight hospital stay for close monitoring of mentation, monitor CIWA, treatment of alcohol withdrawal which is not possible in a lesser acute setting. Quality Stroke Does the patient have a stroke diagnosis?: No VTE Prior VTE?: No VTE Risk Level:: Medical - moderate - high VTE Device Contraindication: Treatment Not Indicated VTE Drug Contraindication: N/A - Med Ordered
[2023-09-24] MEDS: Cyanocobalamin (Vitamin B-12) 1,000 MCG TABLET 1000 MCG PO (11:49)
--- NOTE | 2023-09-24 14:30 | MHC.CM.PN ---
PT LIVES WITH HER AND IS INDEPENDENT WITH BASELINE SHE SAYS SHE HAS A CANE AND A WALKER BUT DOES NOT NEED THEM UNLESS SHE IS DRINKING PT HAS A HCP ON FILE PCP: BIANCA HERNANDEZ DCP: PT REFUSING STR SAYS SHE WILL DC HOME WITH [facility] WAS WITH [facility] RECENTLY REFERRAL SENT WILL TRANSPORT
[2023-09-24 14:55] VITALS: BP 146/85; PULSE 98; RESP 14; TEMP 36.4; O2SAT 95
[2023-09-24] MEDS: PHENobarbitaL 15 MG TABLET 45 MG PO (17:21)
[2023-09-24 19:37] VITALS: BP 134/77; PULSE 91; RESP 16; TEMP 36.4; O2SAT 95
[2023-09-24] MEDS: traZODone HCL 50 MG TABLET PO (20:00)
--- NOTE | 2023-09-24 20:00 | PC.NURSE ---
Pt CIWA score noted to be 14. Pt expiriencing mild anxiety, perspiration, and visible tremors. MD made aware, one time order of phenobarbital has been placed by .
[2023-09-24] MEDS: PHENobarbitaL sodium 130 MG/ML VIAL IM (20:34)
--- NOTE | 2023-09-24 22:31 | PC.NURSE ---
This RN assumed care at 1900, Pt AOx3, Respirations even and unlabored, lung sounds clear. BSx4. Pt was experience tremors, slight perspiration, and mild anxiety, meds given per JUN. Pt is now resting quietly in bed, with no apparent distress. Call hazel within reach.
[2023-09-25 02:47] VITALS: BP 140/94; PULSE 85; RESP 14; TEMP 37.2; O2SAT 96
[2023-09-25] MEDS: PHENobarbitaL 15 MG TABLET 45 MG PO ×2 (05:44→17:10)
--- NOTE | 2023-09-25 06:09 | PC.NURSE ---
Per pt I would rather an alcoholic living on the streets than go back to a rehab or anything like that. Patient verbalizes she wants help but does not want to go to any sort of resources, like rehab to help her.
[2023-09-25 07:13] LABS: Hemoglobin 9.8 g/dl (12.0-16.0); Mean Corpuscular HGB Conc 33.8 g/dl (31.0-35.0); Mean Corpuscular Hemoglobin 30.7 pg (27.0-33.0); Mean Corpuscular Volume 90.9 fL (80.0-98.0); Red Blood Count 3.19 X10*6/uL (4.20-5.50); Red Cell Distribution Width 16.9 % (11.0-16.0)
[2023-09-25 07:17] LABS: Anion Gap 13 (12-20); Blood Urea Nitrogen 3 mg/dL (9-16); Calcium 8.6 mg/dL (8.4-10.2); Carbon Dioxide 33 mmol/L (22-29); Chloride 94 mmol/L (96-108); Creatinine Clr Calc Pharmacy 186.7; Estimated Glomerular Filt Rate > 60; Glucose Random 81 mg/dL (60-115); Potassium 3.9 mmol/L (3.3-5.1); Sodium 136 mmol/L (135-145)
[2023-09-25 07:21] VITALS: BP 145/75; PULSE 92; RESP 20; TEMP 36.9; O2SAT 94
[2023-09-25 07:24] LABS: White Blood Count 2.4 X10*3/uL (4.8-10.8)
[2023-09-25 07:40] LABS: Mean Platelet Volume 10.1 fL (9.4-12.3); Platelet Count 86 X10*3/uL (160-400)
[2023-09-25] MEDS: 0.9 % Sodium Chloride Flush 3 ML SYRINGE IVFLUSH (08:28)
[2023-09-25] MEDS: Cyanocobalamin (Vitamin B-12) 100 MCG TABLET PO (08:29)
[2023-09-25] MEDS: DULoxetine HCl 60 MG CAPSULE.DR PO (08:29)
[2023-09-25] MEDS: Folic Acid 1 MG TABLET PO (08:29)
[2023-09-25] MEDS: Gabapentin 300 MG CAPSULE PO (08:29)
[2023-09-25] MEDS: Multivitamin TABLET 1 TAB PO (08:30)
[2023-09-25] MEDS: Thiamine HCL 100 MG TABLET PO (08:30)
[2023-09-25] MEDS: Aspirin Enteric Coated 81 MG TABLET.DR PO (08:30)
[2023-09-25 09:33] VITALS: BP 145/75; PULSE 92; O2SAT 94
--- NOTE | 2023-09-25 10:59 | HO.ADDICTCON ---
History of Present Illness Date of Service: 09/25/2023 Chief Complaint: Alcohol Withdrawal Reason for Consult: AUD Sources of Information: patient interviewed and chart reviewed HPI Narrative: Patient is a 52 year old female with severe alcohol use disorder admitted with acute alcohol withdrawal and frequent falls at home. 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 Seen in room 345. Awake, alert, engaged in interview. Guarded affect. Expressing anger and frustration that her told her she can not return home. Allowed patient to share frustrations for some time, then redirected to address current admission and events leading up to it. She reports drinking about 1/2 litre of vodka daily, but shares that her would say she drinks more than that. Chart review shows that patient was incontinent and bruising in multiple places of her body --this is consistent with previous admissions where patient's drinking leads to an inability to care for herself, wearing briefs due to incontinence and having to use a wheelchair to inability to ambulate safely. Patient aware of and acknowledges all of the above mentioned. She states that she would rather be at home where she knows what to expect that to go to program where she isn't treated well. If I go into treatment now, this will be my 47th admission. I already know what I have to do, I just need to do it, and I need my license to do it . Patient referring to having the ability to drive herself to meetings and other outpatient treatment settings--her license is currently suspended per her report. 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 Patient has no supports (aside from ) and appears unrealistic in her ability to care for herself or engage in recovery support services. Past Psychiatric History: Denies any psychiatric admissions. Has been sectioned 35 in past and in residential tx for etoh. Denies history of psychosis, ras or violence. Had EMDR after finding her first from hanging Review of Systems Constitutional: Reports as per HPI and Reports no additional constitutional complaints Diagnostics Vital Signs (24Hr): Vital Signs - 24 hr 09/24/23 14:55 09/24/23 19:37 09/25/23 02:47 Temperature 97.6 F 97.5 F 98.9 F Pulse Rate 98 91 85 Respiratory Rate 14 16 14 Blood Pressure 146/85 H 134/77 140/94 H Pulse Oximetry 95 95 96 Oxygen Delivery Method Room Air Room Air Room Air 09/25/23 07:21 09/25/23 09:33 Temperature 98.4 F Pulse Rate 92 92 Respiratory Rate 20 Blood Pressure 145/75 H 145/75 H Pulse Oximetry 94 94 Oxygen Delivery Method Room Air BMI result Body Mass Index 40.3 Labs 09/25/23 05:40 09/25/23 05:40 Labs: Laboratory Results - last 48 hr 09/23/23 09/24/23 09/25/23 14:02 05:17 05:40 WBC 2.3 L 2.4 L RBC 3.31 L 3.19 L Hgb 10.2 L 9.8 L Hct 29.3 L 29.0 L MCV 88.5 90.9 MCH 30.8 30.7 MCHC 34.8 33.8 RDW 16.9 H 16.9 H Plt Count 85 L D 86 L MPV 9.8 10.1 Immature Gran % (Auto) 0.4 Neut % (Auto) 76.1 H Lymph % (Auto) 13.5 L [place] % (Auto) 8.3 Eos % (Auto) 0.4 Baso % (Auto) 1.3 Lymph # (Auto) 0.3 L [place] # (Auto) 0.2 Eos # (Auto) 0.0 Baso # (Auto) 0.0 Abs Immat Gran (auto) 0.01 Absolute Neuts (auto) 1.7 L Absolute Nucleated RBC 0.000 0.000 Nucleated RBC % (auto) 0.0 0.0 Smear Tech's Comments VERIFIED Sodium 136 136 Potassium 3.2 L 3.9 D Chloride 93 L 94 L Carbon Dioxide 31 H 33 H Anion Gap 15 13 BUN 5 L 3 L Creatinine 0.45 L 0.44 L Estim Creat Clear Calc 182.6 186.7 Estimated GFR > 60 > 60 Random Glucose 114 81 Calcium 8.2 L 8.6 Vitamin B12 317 Folate 7.7 Urine Color Dark Yellow Urine Appearance Clear Urine pH 6.5 Ur Specific [place] 1.010 Urine Protein Negative Urine Glucose (UA) Negative Urine Ketones Negative Urine Blood Negative Urine Nitrite Negative Ur Leukocyte Esterase Trace H Urine RBC 0-2 Urine WBC 0-5 Ur Squamous Epith Cells 6-10 Urine Bacteria None Seen Hyaline Casts 0-2 Urine Opiates Screen Not Detected Ur Buprenorphine Scrn Positive H Ur Oxycodone Screen Not Detected Urine Methadone Screen Not Detected Urine Fentanyl Screen Not Detected Ur Barbiturates Screen Not Detected Ur Phencyclidine Scrn Not Detected Ur Amphetamines Screen Not Detected U Benzodiazepines Scrn Not Detected Urine Cocaine Screen Not Detected U Marijuana (THC) Screen Not Detected Imaging Radiology Impressions: ITS Impressions Cervical Spine CT 09/23/23 05:55 IMPRESSION: 1. No acute intracranial finding. 2. No acute cervical spine fracture or malalignment. 3. Multilevel cervical spondylosis. 4. No significant interval change. Head CT 09/23/23 05:55 IMPRESSION: 1. No acute intracranial finding. 2. No acute cervical spine fracture or malalignment. 3. Multilevel cervical spondylosis. 4. No significant interval change. Mental Status Exam Mental Status Exam Patient Appearance: Appropriate Level of Consciousness: Awake and Appropriate Patient Behavior: Appropriate and Guarded Mood Description: Constricted Affect Description: Constricted Speech Pattern: Slurred (at times) Thought Content: positive for Circumstantial and positive for Tangential Medications Medications Current Medications Acetaminophen (Acetaminophen 325 Mg Tablet) 650 mg PO Q6H PRN PRN Reason: Pain, Mild (Pain Scale 1-3), fever or headache Last Admin: 09/24/23 09:02 Dose: 650 mg Aspirin (Aspirin Enteric Coated 81 Mg Tablet.) 81 mg PO DAILY [facility] Last Admin: 09/25/23 08:30 Dose: 81 mg Calcium Carbonate (Calcium Carbonate 750 Mg Tab.Chew) 750 mg PO Q4H PRN PRN Reason: Heartburn Cyanocobalamin (Cyanocobalamin (Vitamin B-12) 100 Mcg Tablet) 100 mcg PO DAILY [facility] Last Admin: 09/25/23 08:29 Dose: 100 mcg Duloxetine HCl (Duloxetine Hcl 60 Mg Capsule.) 60 mg PO DAILY [facility] Last Admin: 09/25/23 08:29 Dose: 60 mg Enoxaparin Sodium (Enoxaparin Sodium 40 Mg/0.4 Ml Syringe) 40 mg SUBCUT Q24H [facility] Last Admin: 09/25/23 08:36 Dose: Not Given Folic Acid (Folic Acid 1 Mg Tablet) 1 mg PO DAILY [facility] Last Admin: 09/25/23 08:29 Dose: 1 mg Gabapentin (Gabapentin 300 Mg Capsule) 300 mg PO DAILY [facility] Last Admin: 09/25/23 08:29 Dose: 300 mg Magnesium Hydroxide (Milk Of Magnesia 30 Ml Oral.Susp) 30 ml PO DAILY PRN PRN Reason: Constipation Meclizine HCl (Meclizine Hcl 12.5 Mg Tablet) 12.5 mg PO TID PRN PRN Reason: Nausea And Vomiting Melatonin (Melatonin 3 Mg Tablet) 6 mg PO BEDTIME PRN PRN Reason: Insomnia Multivitamins/Vitamin C (Multivitamin Tablet) 1 tab PO DAILY [facility] Last Admin: 09/25/23 08:30 Dose: 1 tab Pharmacy Consult (Consult Rx Etoh Phenob Im/Po) 1 each MISCELLANE ONCE PRN; Protocol PRN Reason: Consult order Phenobarbital (Phenobarbital 15 Mg Tablet) 45 mg PO BID@0600,1800 [facility]; Protocol Stop: 09/26/23 06:01 Last Admin: 09/25/23 05:44 Dose: 45 mg Phenobarbital (Phenobarbital 15 Mg Tablet) 15 mg PO BID@0600,1800 [facility]; Protocol Stop: 09/28/23 06:01 Phenobarbital (Phenobarbital 15 Mg Tablet) 15 mg PO DAILY@0600 [facility]; Protocol Stop: 09/30/23 06:01 Sodium Chloride (0.9 % Sodium Chloride Flush 3 Ml Syringe) 3 ml IVFLUSH QSHIFT [facility] Last Admin: 09/25/23 08:28 Dose: 3 ml Thiamine HCl (Thiamine Hcl 100 Mg Tablet) 100 mg PO DAILY [facility] Last Admin: 09/25/23 08:30 Dose: 100 mg Trazodone HCl (Trazodone Hcl 50 Mg Tablet) 50 mg PO BEDTIME [facility] Last Admin: 09/24/23 20:00 Dose: 50 mg Allergies Allergies Allergy/AdvReac Type Severity Reaction Status Date / Time No Known Allergies Allergy Verified 09/23/23 05:19 Assessment & Plan Assessment & Plan (1) Alcohol use disorder, severe, dependence: Status: Acute Code(s): F10.20 - Alcohol dependence, uncomplicated Assessment and Plan: patient would like to restart Disulfiram prior to discharge--can restart at 250mg QD does not wish to pursue any type of AUD treatment --limited insight related to the severity of her alcohol use and overall implications on her health and wellbeing. limited to no supports at home already has follow up appt at [facility] Total time managing care of this patient today __45__ minutes. PMFSH Past Medical History Medical History Alcohol use disorder, severe, dependence Korsakoff syndrome Thrombocytopenia Alcohol withdrawal syndrome Abscess of axilla, right Rash Encounter for monitoring Suboxone maintenance therapy Hypertension Opioid use disorder Alcohol abuse Family History Family History Father Lung cancer Surgical History Surgical History History of total knee arthroplasty History of gastric surgery Social History Social History Household Members: Significant Other Housing: House Do you presently have visiting nurse or other home services: No Unable to assess alcohol history related to: Unknown Alcohol intake: current Alcohol intake frequency: 3 or more drinks per day Alcohol type: wine and hard liquor Comment: refuses fall risk alarms Patient Tobacco Use Status: Former Tobacco user Tobacco use type: Cigarette Years Smoked: 2 Second Hand Smoke Exposure: No service: No Current occupational status: employed
--- NOTE | 2023-09-25 11:18 | PC.NURSE ---
Pt. is high fall risk, refusing bed alarm at times, and is turning bed alarm off by herself. Education is provided about room environment, effects of falling, call hazel use. Pt insisted on leaving the bed alarm off. Extra safety checks by staffing provided.
--- NOTE | 2023-09-25 11:59 | MHC.CM.PN ---
CM RECEIVED A MESSAGE STATING PTS DOES NOT WANT HER TO RETURN HOME CM MET WITH PT WHO STATES, i AM AN ADULT AND THAT IS MY HOME SHE SAYS SHE SPOKE TO HER YESTERDAY AND HE TOLD HER HE WANTED HER TO GO TO STR, BUT HE WAS ALSO INTOXICATED SHE SAYS SHE HAS BEEN TO STR IN THE PAST AND IS NOT DOING THAT AGAIN SHE REPORTS HER FRIEND IS DRIVING HER HOME TOMORROW MORNING AND SHE CAN GET IN THE HOME PTS ROOM PHONE STARTED RINGING SO CM STEPPED OUT TO GIVE HER PRIVACY CM WILL CONFIRM HER DECISION WITH HER LATER TODAY
[2023-09-25 13:08] VITALS: BP 152/98; PULSE 116; RESP 20; TEMP 36.3; O2SAT 97
--- NOTE | 2023-09-25 13:13 | P.PNIM_ITS ---
Subjective Subjective Date of Service: 09/25/23 Interval History: seen and evaluated this morning having less tremors and less hallucinating overnight tolerating diet no other events reported Review of Systems Review of Systems: Yes all other systems are reviewed and are negative Physical Exam 2 Vital Signs: Vital Signs: Last Vital Signs Temp 97.4 F 09/25/23 13:08 Pulse 116 H 09/25/23 13:08 Resp 20 09/25/23 13:08 BP 152/98 H 09/25/23 13:08 Pulse Ox 97 09/25/23 13:08 O2 Del Method Room Air 09/25/23 13:08 BMI result Body Mass Index 40.3 Const: Other: Constitutional : Awake, interactive, restless, mildly anxious Neck : Normal inspection, Supple Cardiovascular : RRR, no JVP, no lower extremity edema Respiratory : good bilateral air entry, no crackles, wheezes or rhonchi Gastrointestinal: soft, lax, Normal bowel sounds, Non tender Skin : Warm, Dry Neurological : Alert & oriented x3, No focal deficit , having tremors Objective Data Active Medications Acetaminophen (Acetaminophen 325 Mg Tablet) 650 mg PO Q6H PRN PRN Reason: Pain, Mild (Pain Scale 1-3), fever or headache Last Admin: 09/24/23 09:02 Dose: 650 mg Documented By: HEAVEN Aspirin (Aspirin Enteric Coated 81 Mg Tablet.) 81 mg PO DAILY [facility] Last Admin: 09/25/23 08:30 Dose: 81 mg Documented By: HEAVEN Calcium Carbonate (Calcium Carbonate 750 Mg Tab.Chew) 750 mg PO Q4H PRN PRN Reason: Heartburn Cyanocobalamin (Cyanocobalamin (Vitamin B-12) 100 Mcg Tablet) 100 mcg PO DAILY [facility] Last Admin: 09/25/23 08:29 Dose: 100 mcg Documented By: HEAVEN Duloxetine HCl (Duloxetine Hcl 60 Mg Capsule.) 60 mg PO DAILY [facility] Last Admin: 09/25/23 08:29 Dose: 60 mg Documented By: HEAVEN Enoxaparin Sodium (Enoxaparin Sodium 40 Mg/0.4 Ml Syringe) 40 mg SUBCUT Q24H [facility] Last Admin: 09/25/23 08:36 Dose: Not Given Documented By: HEAVEN Non-Admin Reason: Patient Refused Folic Acid (Folic Acid 1 Mg Tablet) 1 mg PO DAILY [facility] Last Admin: 09/25/23 08:29 Dose: 1 mg Documented By: HEAVEN Gabapentin (Gabapentin 300 Mg Capsule) 300 mg PO DAILY [facility] Last Admin: 09/25/23 08:29 Dose: 300 mg Documented By: HEAVEN Magnesium Hydroxide (Milk Of Magnesia 30 Ml Oral.Susp) 30 ml PO DAILY PRN PRN Reason: Constipation Meclizine HCl (Meclizine Hcl 12.5 Mg Tablet) 12.5 mg PO TID PRN PRN Reason: Nausea And Vomiting Melatonin (Melatonin 3 Mg Tablet) 6 mg PO BEDTIME PRN PRN Reason: Insomnia Multivitamins/Vitamin C (Multivitamin Tablet) 1 tab PO DAILY [facility] Last Admin: 09/25/23 08:30 Dose: 1 tab Documented By: HEAVEN Pharmacy Consult (Consult Rx Etoh Phenob Im/Po) 1 each MISCELLANE ONCE PRN; Protocol PRN Reason: Consult order Phenobarbital (Phenobarbital 15 Mg Tablet) 45 mg PO BID@0600,1800 [facility]; Protocol Stop: 09/26/23 06:01 Last Admin: 09/25/23 05:44 Dose: 45 mg Documented By: JESUS Phenobarbital (Phenobarbital 15 Mg Tablet) 15 mg PO BID@0600,1800 [facility]; Protocol Stop: 09/28/23 06:01 Phenobarbital (Phenobarbital 15 Mg Tablet) 15 mg PO DAILY@0600 [facility]; Protocol Stop: 09/30/23 06:01 Sodium Chloride (0.9 % Sodium Chloride Flush 3 Ml Syringe) 3 ml [facility] Last Admin: 09/25/23 08:28 Dose: 3 ml Documented By: HEAVEN Thiamine HCl (Thiamine Hcl 100 Mg Tablet) 100 mg PO DAILY [facility] Last Admin: 09/25/23 08:30 Dose: 100 mg Documented By: HEAVEN Trazodone HCl (Trazodone Hcl 50 Mg Tablet) 50 mg PO BEDTIME [facility] Last Admin: 09/24/23 20:00 Dose: 50 mg Documented By: JESUS Labs 09/25/23 05:40 09/25/23 05:40 Labs: Laboratory Results - last 24 hr 09/25/23 05:40 MCV 90.9 MCH 30.7 MCHC 33.8 RDW 16.9 H Plt Count 86 L MPV 10.1 Absolute Nucleated RBC 0.000 Nucleated RBC % (auto) 0.0 Anion Gap 13 Estim Creat Clear Calc 186.7 Estimated GFR > 60 Random Glucose 81 Calcium 8.6 Assessment and Plan (1) Alcohol use disorder, severe, dependence: Status: Acute (2) Falls frequently: Status: Acute Plan This is a 52-year-old female with pertinent history of alcohol use disorder, opioid use disorder on Suboxone, mood disorder who presents to the emergency department for concerns of alcohol withdrawal. # Alcohol use disorder with acute alcohol withdrawal improving , scoring lower on CIWA tonight expected to be 2nd night after last drink, to monitor continue IV fluids Continue phenobarb protocol thiamine and folic acid Addiction Team following # Frequent falls and generalized weakness likely in the setting of Alcoholism Physical therapy recommended SNF placement B12 and folate. # Mood disorder: Continue duloxetine and trazodone # Opioid use disorder on Suboxone # Normocytic anemia: Hemoglobin above transfusion threshold # Thrombocytopenia: Chronic and stable # Obesity: Counseled regarding diet # Elevated liver enzymes in the setting of alcohol use disorder DVT prophylaxis: Lovenox Full code Admit as inpatient and will require overnight hospital stay for close monitoring of mentation, monitor CIWA, treatment of alcohol withdrawal and looking for SNF facility which is not possible in a lesser acute setting. Quality Stroke Does the patient have a stroke diagnosis?: No VTE Prior VTE?: No VTE Risk Level:: Medical - moderate - high VTE Device Contraindication: Treatment Not Indicated VTE Drug Contraindication: N/A - Med Ordered
--- NOTE | 2023-09-25 14:54 | MHC.CM.PN ---
spoke with pt who confirmed that she will accept servies thru [facility] notified of possible dc sat
[2023-09-25 15:13] VITALS: BP 120/80; PULSE 90; RESP 18; TEMP 36.2; O2SAT 98
[2023-09-25 19:11] VITALS: BP 156/99; PULSE 87; RESP 17; TEMP 36.5; O2SAT 95
[2023-09-25] MEDS: traZODone HCL 50 MG TABLET PO (20:31)
[2023-09-25] MEDS: Milk of Magnesia 30 ML ORAL.SUSP PO (20:37)
[2023-09-25] MEDS: PHENobarbitaL sodium 130 MG/ML VIAL IM (21:34)
--- NOTE | 2023-09-25 22:37 | PC.NURSE ---
Pt requesting additional dose of phenobarbital next dose not due till 0600.Pt states sweaty and tremulous notified ordered phenobarbital 130mg IM given at 2130.
[2023-09-26 03:20] VITALS: BP 140/70; PULSE 80; RESP 19; TEMP 36.5; O2SAT 97
[2023-09-26] MEDS: PHENobarbitaL 15 MG TABLET 45 MG PO (05:08)
[2023-09-26] MEDS: Acetaminophen 325 MG TABLET 650 MG PO ×2 (05:08→17:35)
[2023-09-26 08:01] VITALS: BP 122/88; PULSE 84; RESP 14; TEMP 36.5
[2023-09-26] MEDS: Folic Acid 1 MG TABLET PO (08:29)
[2023-09-26] MEDS: Multivitamin TABLET 1 TAB PO (08:29)
[2023-09-26] MEDS: DULoxetine HCl 60 MG CAPSULE.DR PO (08:29)
[2023-09-26] MEDS: Gabapentin 300 MG CAPSULE PO (08:29)
[2023-09-26] MEDS: Cyanocobalamin (Vitamin B-12) 100 MCG TABLET PO (08:29)
[2023-09-26] MEDS: Thiamine HCL 100 MG TABLET PO (08:29)
[2023-09-26] MEDS: Aspirin Enteric Coated 81 MG TABLET.DR PO (08:30)
[2023-09-26] MEDS: 0.9 % Sodium Chloride Flush 3 ML SYRINGE IVFLUSH ×3 (08:30→20:55)
[2023-09-26] MEDS: PHENobarbitaL sodium 130 MG/ML VIAL IM (09:28)
--- NOTE | 2023-09-26 11:59 | HO.PM.IMPN ---
Subjective Subjective Date of Service: 09/26/23 Interval History: seen and evaluated this morning having less tremors but reporting worsening hallucinating overnight tolerating diet required extra dose of Phenobarb overnight no other events reported Review of Systems Review of Systems: Yes all other systems are reviewed and are negative Physical Exam Vital Signs: Vital Signs: Last Vital Signs Temp 97.7 F 09/26/23 08:01 Pulse 84 09/26/23 08:01 Resp 14 09/26/23 08:01 BP 122/88 09/26/23 08:01 Pulse Ox 97 09/26/23 03:20 O2 Del Method Room Air 09/26/23 03:20 BMI result Body Mass Index 40.3 Const: Other: Constitutional : Awake, interactive, restless, mildly anxious Neck : Normal inspection, Supple Cardiovascular : RRR, no JVP, no lower extremity edema Respiratory : good bilateral air entry, no crackles, wheezes or rhonchi Gastrointestinal: soft, lax, Normal bowel sounds, Non tender Skin : Warm, Dry Neurological : Alert & oriented x3, No focal deficit , having tremors Psych; reporting hallucination, has insight Objective Data Active Medications Acetaminophen (Acetaminophen 325 Mg Tablet) 650 mg PO Q6H PRN PRN Reason: Pain, Mild (Pain Scale 1-3), fever or headache Last Admin: 09/26/23 05:08 Dose: 650 mg Documented By: MARITA Aspirin (Aspirin Enteric Coated 81 Mg Tablet.) 81 mg PO DAILY [facility] Last Admin: 09/26/23 08:30 Dose: 81 mg Documented By: XOCHILT Calcium Carbonate (Calcium Carbonate 750 Mg Tab.Chew) 750 mg PO Q4H PRN PRN Reason: Heartburn Cyanocobalamin (Cyanocobalamin (Vitamin B-12) 100 Mcg Tablet) 100 mcg PO DAILY [facility] Last Admin: 09/26/23 08:29 Dose: 100 mcg Documented By: XOCHILT Duloxetine HCl (Duloxetine Hcl 60 Mg Capsule.) 60 mg PO DAILY [facility] Last Admin: 09/26/23 08:29 Dose: 60 mg Documented By: XOCHILT Enoxaparin Sodium (Enoxaparin Sodium 40 Mg/0.4 Ml Syringe) 40 mg SUBCUT Q24H [facility] Last Admin: 09/26/23 08:34 Dose: Not Given Documented By: XOCHILT Non-Admin Reason: Patient Refused Folic Acid (Folic Acid 1 Mg Tablet) 1 mg PO DAILY [facility] Last Admin: 09/26/23 08:29 Dose: 1 mg Documented By: XOCHILT Gabapentin (Gabapentin 300 Mg Capsule) 300 mg PO DAILY [facility] Last Admin: 09/26/23 08:29 Dose: 300 mg Documented By: XOCHILT Magnesium Hydroxide (Milk Of Magnesia 30 Ml Oral.Susp) 30 ml PO DAILY PRN PRN Reason: Constipation Last Admin: 09/25/23 20:37 Dose: 30 ml Documented By: MARITA Meclizine HCl (Meclizine Hcl 12.5 Mg Tablet) 12.5 mg PO TID PRN PRN Reason: Nausea And Vomiting Melatonin (Melatonin 3 Mg Tablet) 6 mg PO BEDTIME PRN PRN Reason: Insomnia Multivitamins/Vitamin C (Multivitamin Tablet) 1 tab PO DAILY [facility] Last Admin: 09/26/23 08:29 Dose: 1 tab Documented By: XOCHILT Pharmacy Consult (Consult Rx Etoh Phenob Im/Po) 1 each MISCELLANE ONCE PRN; Protocol PRN Reason: Consult order Phenobarbital (Phenobarbital 15 Mg Tablet) 15 mg PO BID@0600,1800 [facility]; Protocol Stop: 09/28/23 06:01 Phenobarbital (Phenobarbital 15 Mg Tablet) 15 mg PO DAILY@0600 [facility]; Protocol Stop: 09/30/23 06:01 Sodium Chloride (0.9 % Sodium Chloride Flush 3 Ml Syringe) [facility] Last Admin: 09/26/23 08:30 Dose: 3 ml Documented By: XOCHILT Thiamine HCl (Thiamine Hcl 100 Mg Tablet) 100 mg PO DAILY [facility] Last Admin: 09/26/23 08:29 Dose: 100 mg Documented By: XOCHILT Trazodone HCl (Trazodone Hcl 50 Mg Tablet) 50 mg PO BEDTIME [facility] Last Admin: 09/25/23 20:31 Dose: 50 mg Documented By: MARITA Zolpidem Tartrate (Zolpidem Tartrate 5 Mg Tablet) 5 mg PO BEDTIME [facility] Labs 09/25/23 05:40 09/25/23 05:40 Assessment and Plan (1) Alcohol use disorder, severe, dependence: Status: Acute (2) Falls frequently: Status: Acute (3) Pedal edema: Status: Acute Plan This is a 52-year-old female with pertinent history of alcohol use disorder, opioid use disorder on Suboxone, mood disorder who presents to the emergency department for concerns of alcohol withdrawal. # Alcohol use disorder with acute alcohol withdrawal improving , but still scoring on CIWA tonight expected to be 3nd night after last drink, to monitor dc IV fluids extra dose IM Phenobarb Continue phenobarb protocol thiamine and folic acid Addiction Team following # Frequent falls and generalized weakness likely in the setting of Alcoholism Physical therapy recommended SNF placement , patient not interested at this point B12 and folate. # Mood disorder: Continue duloxetine and trazodone # Opioid use disorder on Suboxone # Normocytic anemia: Hemoglobin above transfusion threshold # Thrombocytopenia: Chronic and stable # Obesity: Counseled regarding diet # Elevated liver enzymes in the setting of alcohol use disorder DVT prophylaxis: Lovenox Full code Admit as inpatient and will require overnight hospital stay for close monitoring of mentation, monitor CIWA, treatment of alcohol withdrawal and looking for SNF facility which is not possible in a lesser acute setting. Quality Stroke Does the patient have a stroke diagnosis?: No VTE Prior VTE?: No VTE Risk Level:: Medical - moderate - high VTE Device Contraindication: Treatment Not Indicated VTE Drug Contraindication: N/A - Med Ordered
[2023-09-26 16:00] VITALS: BP 124/69; PULSE 81; RESP 13; TEMP 36.3; O2SAT 97
[2023-09-26] MEDS: PHENobarbitaL 15 MG TABLET PO (17:30)
[2023-09-26 19:12] VITALS: BP 136/88; PULSE 80; RESP 18; TEMP 36.5; O2SAT 99
[2023-09-26] MEDS: Zolpidem Tartrate 5 MG TABLET PO (20:55)
[2023-09-26] MEDS: traZODone HCL 50 MG TABLET PO (20:55)
[2023-09-27] MEDS: PHENobarbitaL sodium 130 MG/ML VIAL IM ×2 (00:13→09:46)
--- NOTE | 2023-09-27 00:34 | PC.NURSE ---
Pt very anxious confused stated she just came from [facility] then said she was home and her just dropped her off here 15 minutes ago .Angry at for just dropping her off without letting her get her clothes.re-orientated pt notified of increased confusion ordered phenobarbital 130mg IM given at 0015.
[2023-09-27 02:00] VITALS: BP 140/94; PULSE 95; RESP 18; TEMP 36.5; O2SAT 98
[2023-09-27] MEDS: PHENobarbitaL 15 MG TABLET PO ×2 (05:04→17:05)
[2023-09-27] MEDS: Acetaminophen 325 MG TABLET 650 MG PO ×2 (05:04→16:34)
[2023-09-27 06:23] LABS: Alanine Aminotransferase 33 U/L (0-31); Albumin Level 3.2 g/dL (3.5-5.0); Alkaline Phosphatase 247 U/L (39-117); Anion Gap 13 (12-20); Aspartate Amino Transferase 78 U/L (5-31); Bilirubin Direct 0.8 mg/dL (0.0-0.5); Bilirubin Total 1.3 mg/dL (0.0-1.0); Blood Urea Nitrogen 5 mg/dL (9-16); Calcium 9.1 mg/dL (8.4-10.2); Carbon Dioxide 33 mmol/L (22-29); Chloride 94 mmol/L (96-108); Creatinine Clr Calc Pharmacy 164.2; Estimated Glomerular Filt Rate > 60; Glucose Random 92 mg/dL (60-115); Potassium 3.8 mmol/L (3.3-5.1); Sodium 136 mmol/L (135-145); Total Protein 6.2 g/dL (6.5-8.0)
[2023-09-27 07:00] VITALS: BP 148/83; PULSE 83; RESP 17; TEMP 36.7; O2SAT 98
[2023-09-27] MEDS: Thiamine HCL 100 MG TABLET PO (08:02)
[2023-09-27] MEDS: Aspirin Enteric Coated 81 MG TABLET.DR PO (08:02)
[2023-09-27] MEDS: DULoxetine HCl 60 MG CAPSULE.DR PO (08:02)
[2023-09-27] MEDS: Folic Acid 1 MG TABLET PO (08:02)
[2023-09-27] MEDS: Multivitamin TABLET 1 TAB PO (08:03)
[2023-09-27] MEDS: 0.9 % Sodium Chloride Flush 3 ML SYRINGE IVFLUSH ×2 (08:03→16:01)
[2023-09-27] MEDS: Cyanocobalamin (Vitamin B-12) 100 MCG TABLET PO (08:03)
[2023-09-27] MEDS: Enoxaparin Sodium 40 MG/0.4 ML SYRINGE SUBCUT (08:03)
[2023-09-27] MEDS: Gabapentin 300 MG CAPSULE PO (08:03)
--- NOTE | 2023-09-27 09:10 | HO.PM.IMPN ---
Subjective Subjective Date of Service: 09/27/23 Interval History: seen and evaluated this morning less tremors reporting hallucinating overnight very unsteady on her feet tolerating diet no other events reported Review of Systems Review of Systems: Yes all other systems are reviewed and are negative Physical Exam Vital Signs: Vital Signs: Last Vital Signs Temp 98.1 F 09/27/23 07:00 Pulse 83 09/27/23 07:00 Resp 17 09/27/23 07:00 BP 148/83 H 09/27/23 07:00 Pulse Ox 98 09/27/23 07:00 O2 Del Method Room Air 09/27/23 07:00 BMI result Body Mass Index 40.3 Const: Other: Constitutional : Awake, interactive, restless, mildly anxious Neck : Normal inspection, Supple Cardiovascular : RRR, no JVP, no lower extremity edema Respiratory : good bilateral air entry, no crackles, wheezes or rhonchi Gastrointestinal: soft, lax, Normal bowel sounds, Non tender Skin : Warm, Dry Neurological : Alert & oriented x3, No focal deficit , having tremors Psych; reporting hallucination, has insight Objective Data Active Medications Acetaminophen (Acetaminophen 325 Mg Tablet) 650 mg PO Q6H PRN PRN Reason: Pain, Mild (Pain Scale 1-3), fever or headache Last Admin: 09/27/23 05:04 Dose: 650 mg Documented By: MARITA Aspirin (Aspirin Enteric Coated 81 Mg Tablet.) 81 mg PO DAILY [facility] Last Admin: 09/27/23 08:02 Dose: 81 mg Documented By: XOCHILT Calcium Carbonate (Calcium Carbonate 750 Mg Tab.Chew) 750 mg PO Q4H PRN PRN Reason: Heartburn Cyanocobalamin (Cyanocobalamin (Vitamin B-12) 100 Mcg Tablet) 100 mcg PO DAILY [facility] Last Admin: 09/27/23 08:03 Dose: 100 mcg Documented By: XOCHILT Duloxetine HCl (Duloxetine Hcl 60 Mg Capsule.) 60 mg PO DAILY [facility] Last Admin: 09/27/23 08:02 Dose: 60 mg Documented By: XOCHILT Enoxaparin Sodium (Enoxaparin Sodium 40 Mg/0.4 Ml Syringe) 40 mg SUBCUT Q24H [facility] Last Admin: 09/27/23 08:03 Dose: 40 mg Documented By: XOCHILT Folic Acid (Folic Acid 1 Mg Tablet) 1 mg PO DAILY [facility] Last Admin: 09/27/23 08:02 Dose: 1 mg Documented By: XOCHILT Gabapentin (Gabapentin 300 Mg Capsule) 300 mg PO DAILY [facility] Last Admin: 09/27/23 08:03 Dose: 300 mg Documented By: XOCHILT Magnesium Hydroxide (Milk Of Magnesia 30 Ml Oral.Susp) 30 ml PO DAILY PRN PRN Reason: Constipation Last Admin: 09/25/23 20:37 Dose: 30 ml Documented By: MARITA Meclizine HCl (Meclizine Hcl 12.5 Mg Tablet) 12.5 mg PO TID PRN PRN Reason: Nausea And Vomiting Melatonin (Melatonin 3 Mg Tablet) 6 mg PO BEDTIME PRN PRN Reason: Insomnia Multivitamins/Vitamin C (Multivitamin Tablet) 1 tab PO DAILY [facility] Last Admin: 09/27/23 08:03 Dose: 1 tab Documented By: XOCHILT Pharmacy Consult (Consult Rx Etoh Phenob Im/Po) 1 each MISCELLANE ONCE PRN; Protocol PRN Reason: Consult order Phenobarbital (Phenobarbital 15 Mg Tablet) 15 mg PO BID@0600,1800 [facility]; Protocol Stop: 09/28/23 06:01 Last Admin: 09/27/23 05:04 Dose: 15 mg Documented By: MARITA Phenobarbital (Phenobarbital 15 Mg Tablet) 15 mg PO DAILY@0600 [facility]; Protocol Stop: 09/30/23 06:01 Sodium Chloride (0.9 % Sodium Chloride Flush 3 Ml Syringe) 3 ml IVFLUSH [facility] Last Admin: 09/27/23 08:03 Dose: 3 ml Documented By: XOCHILT Thiamine HCl (Thiamine Hcl 100 Mg Tablet) 100 mg PO DAILY [facility] Last Admin: 09/27/23 08:02 Dose: 100 mg Documented By: XOCHILT Trazodone HCl (Trazodone Hcl 50 Mg Tablet) 50 mg PO BEDTIME [facility] Last Admin: 09/26/23 20:55 Dose: 50 mg Documented By: MARITA Zolpidem Tartrate (Zolpidem Tartrate 5 Mg Tablet) 5 mg PO BEDTIME [facility] Last Admin: 09/26/23 20:55 Dose: 5 mg Documented By: MARITA Labs 09/25/23 05:40 09/27/23 05:21 Labs: Laboratory Results - last 24 hr 09/27/23 05:21 Hold Purple Top SEE NOTE Anion Gap 13 Estim Creat Clear Calc 164.2 Estimated GFR > 60 Random Glucose 92 Calcium 9.1 Total Bilirubin 1.3 H Direct Bilirubin 0.8 H AST 78 H ALT 33 H Alkaline Phosphatase 247 H Total Protein 6.2 L Albumin 3.2 L Assessment and Plan (1) Alcohol use disorder, severe, dependence: Status: Acute (2) Falls frequently: Status: Acute Plan This is a 52-year-old female with pertinent history of alcohol use disorder, opioid use disorder on Suboxone, mood disorder who presents to the emergency department for concerns of alcohol withdrawal. # Alcohol use disorder with acute alcohol withdrawal improving , but still scoring on CIWA 6 dc IV fluids Continue phenobarb protocol extra dose IM Phenobarb as needed thiamine and folic acid Addiction Team following # Frequent falls and generalized weakness likely in the setting of Alcoholism Physical therapy recommended SNF placement , patient willing to go B12 and folate. # Mood disorder: Continue duloxetine and trazodone # Opioid use disorder on Suboxone # Normocytic anemia: Hemoglobin above transfusion threshold # Thrombocytopenia: Chronic and stable # Obesity: Counseled regarding diet # Elevated liver enzymes in the setting of alcohol use disorder DVT prophylaxis: Lovenox Full code Admit as inpatient and will require overnight hospital stay for close monitoring of mentation, monitor CIWA, treatment of alcohol withdrawal and looking for SNF facility which is not possible in a lesser acute setting. Quality Stroke Does the patient have a stroke diagnosis?: No VTE Prior VTE?: No VTE Risk Level:: Medical - moderate - high VTE Device Contraindication: Treatment Not Indicated VTE Drug Contraindication: N/A - Med Ordered
[2023-09-27 15:58] VITALS: BP 138/86; PULSE 97; RESP 18; TEMP 36.6
[2023-09-27 19:31] VITALS: BP 126/72; PULSE 82; RESP 18; TEMP 36.1; O2SAT 98
[2023-09-27] MEDS: Zolpidem Tartrate 5 MG TABLET PO (20:37)
[2023-09-27] MEDS: traZODone HCL 50 MG TABLET PO (20:37)
[2023-09-28] MEDS: 0.9 % Sodium Chloride Flush 3 ML SYRINGE IVFLUSH ×3 (00:17→20:27)
[2023-09-28] MEDS: Acetaminophen 325 MG TABLET 650 MG PO ×2 (00:59→20:25)
[2023-09-28 03:15] VITALS: BP 109/70; PULSE 76; RESP 18; TEMP 36.8; O2SAT 98
[2023-09-28 03:50] VITALS: BP 136/61; PULSE 65; RESP 18; TEMP 36.2; O2SAT 100
--- NOTE | 2023-09-28 03:54 | PM.EVENT ---
Event Note Date of Service: 09/28/23 Event Note: 3:45 PM - Contacted by nursing supervisor aircraft cleaning Sunitha to notify patient fell and was found on the floor by nursing. Patient hit her head upon falling down. On my evaluation, patient was on the floor sitting with her legs extended. Patient seems quite confused and stating she was at her home. Upon asking why she fell she would give a straight answer and would have flights of ideas and tangential answers. She was moving all her extremities symmetrically. Head exam showed couple of bumps over the right parietal area with small hematomas but not open wounds. I did not appreciate any gross deformity of the extremities. According to nursing patient has been refusing bed alarms. Patient was able to kneel without assistance and was assisted by 2 persons to stand up and sit up in the wheelchair. Plan: We will obtain head and c-spine CT scan STAT. Lovenox and aspirin have been discontinued as the the patient has thrombocytopenia and just had head trauma. She will need SCDs for DVT prophylaxis. As the patient is confused, has a poor insight and has high-risk for falls + traumatic injuries, bed alarms and camera will be activated to ensure her safety. Time Spent With Patient Time: Total time managing care of this patient today ____ minutes.
[2023-09-28] MEDS: Acetaminophen 325 MG TABLET 975 MG PO (05:14)
[2023-09-28] MEDS: PHENobarbitaL sodium 130 MG/ML VIAL IM (05:44)
--- NOTE | 2023-09-28 07:24 | PC.NURSE ---
This RN was outside of patient's room and heard patient yelling. Upon entering room patient was found on floor beside bed. Patient stated she was putting her drink back on bedside table and fell out of bed. Noted to have a bump on right side of head, no open areas . Patient has been refusing bed alarm and tele sitter since admission, turning it off at times. Patient had been educated on the risks of not complying with high fall protocol. Nursing cotton gin yard supervisor and hospitalist arrived to bedside. Patient's VSS, Ct of head ordered. High fall measures have been initiated and patient is agreeable . Will continue to monitor.
[2023-09-28 07:32] VITALS: BP 111/64; PULSE 80; RESP 18; TEMP 37; O2SAT 98
[2023-09-28] MEDS: PHENobarbitaL 15 MG TABLET PO (08:36)
[2023-09-28] MEDS: Multivitamin TABLET 1 TAB PO (08:36)
[2023-09-28] MEDS: Cyanocobalamin (Vitamin B-12) 100 MCG TABLET PO (08:36)
[2023-09-28] MEDS: DULoxetine HCl 60 MG CAPSULE.DR PO (08:36)
[2023-09-28] MEDS: Thiamine HCL 100 MG TABLET PO (08:36)
[2023-09-28] MEDS: Folic Acid 1 MG TABLET PO (08:36)
--- NOTE | 2023-09-28 12:29 | HO.PM.IMPN ---
Subjective Subjective Date of Service: 09/28/23 Interval History: f/u on alcohol withdrawal reportedly was confused and fell last night, imagin show no acute injury, she lucid this morning Physical Exam Vital Signs: Vital Signs: Last Vital Signs Temp 98.6 F 09/28/23 07:32 Pulse 80 09/28/23 07:32 Resp 18 09/28/23 07:32 BP 111/64 09/28/23 07:32 Pulse Ox 98 09/28/23 07:32 O2 Del Method Room Air 09/28/23 07:32 BMI result Body Mass Index 40.3 Const: Other: Constitutional : Awake, interactive, restless, mildly anxious Neck : Normal inspection, Supple Cardiovascular : RRR, no JVP, no lower extremity edema Respiratory : good bilateral air entry, no crackles, wheezes or rhonchi Gastrointestinal: soft, lax, Normal bowel sounds, Non tender Skin : Warm, Dry Neurological : Alert & oriented x3, No focal deficit , having tremors Psych; reporting hallucination, has insight Objective Data Active Medications Acetaminophen (Acetaminophen 325 Mg Tablet) 650 mg PO Q6H PRN PRN Reason: Pain, Mild (Pain Scale 1-3), fever or headache Last Admin: 09/28/23 00:59 Dose: 650 mg Documented By: HUMPHREY Calcium Carbonate (Calcium Carbonate 750 Mg Tab.Chew) 750 mg PO Q4H PRN PRN Reason: Heartburn Cyanocobalamin (Cyanocobalamin (Vitamin B-12) 100 Mcg Tablet) 100 mcg PO DAILY [facility] Last Admin: 09/28/23 08:36 Dose: 100 mcg Documented By: SARAH Duloxetine HCl (Duloxetine Hcl 60 Mg Capsule.) 60 mg PO DAILY [facility] Last Admin: 09/28/23 08:36 Dose: 60 mg Documented By: SARAH Folic Acid (Folic Acid 1 Mg Tablet) 1 mg PO DAILY [facility] Last Admin: 09/28/23 08:36 Dose: 1 mg Documented By: SARAH Gabapentin (Gabapentin 300 Mg Capsule) 300 mg PO DAILY [facility] Last Admin: 09/27/23 08:03 Dose: 300 mg Documented By: XOCHILT Magnesium Hydroxide (Milk Of Magnesia 30 Ml Oral.Susp) 30 ml PO DAILY PRN PRN Reason: Constipation Last Admin: 09/25/23 20:37 Dose: 30 ml Documented By: MARITA Meclizine HCl (Meclizine Hcl 12.5 Mg Tablet) 12.5 mg PO TID PRN PRN Reason: Nausea And Vomiting Melatonin (Melatonin 3 Mg Tablet) 6 mg PO BEDTIME PRN PRN Reason: Insomnia Multivitamins/Vitamin C (Multivitamin Tablet) 1 tab PO DAILY [facility] Last Admin: 09/28/23 08:36 Dose: 1 tab Documented By: SARAH Pharmacy Consult (Consult Rx Etoh Phenob Im/Po) 1 each MISCELLANE ONCE PRN; Protocol PRN Reason: Consult order Phenobarbital (Phenobarbital 15 Mg Tablet) 15 mg PO DAILY@0600 [facility]; Protocol Stop: 09/30/23 06:01 Phenobarbital Sodium (Phenobarbital Sodium 130 Mg/Ml Vial) 130 mg IM ONCE PRN PRN Reason: Alcohol Withdrawal Last Admin: 09/27/23 09:46 Dose: 130 mg Documented By: XOCHILT Sodium Chloride (0.9 % Sodium Chloride Flush 3 Ml Syringe) 3 ml IVFLUSH [facility] Last Admin: 09/28/23 08:36 Dose: 3 ml Documented By: SARAH Thiamine HCl (Thiamine Hcl 100 Mg Tablet) 100 mg PO DAILY [facility] Last Admin: 09/28/23 08:36 Dose: 100 mg Documented By: SARAH Trazodone HCl (Trazodone Hcl 50 Mg Tablet) 50 mg PO BEDTIME [facility] Last Admin: 09/27/23 20:37 Dose: 50 mg Documented By: HUMPHREY Zolpidem Tartrate (Zolpidem Tartrate 5 Mg Tablet) 5 mg PO BEDTIME [facility] Last Admin: 09/27/23 20:37 Dose: 5 mg Documented By: HUMPHREY Labs 09/25/23 05:40 09/27/23 05:21 Assessment and Plan (1) Alcohol use disorder, severe, dependence: Status: Acute (2) Falls frequently: Status: Acute Plan This is a 52-year-old female with pertinent history of alcohol use disorder, opioid use disorder on Suboxone, mood disorder who presents to the emergency department for concerns of alcohol withdrawal. # Alcohol use disorder with acute alcohol withdrawal,symptoms are minimal now -continue phenobarbital per protocol, folic acid and thiamine replacmentn -addiction team following # Frequent falls and generalized weakness likely in the setting of Alcoholism Physical therapy recommended SNF placement , patient willing to go, nl b12 and folate # Mood disorder: Continue duloxetine and trazodone # Opioid use disorder on Suboxone # Normocytic anemia: Hemoglobin above transfusion threshold # Thrombocytopenia: Chronic and stable # Obesity: Counseled regarding diet # Elevated liver enzymes in the setting of alcohol use disorder DVT prophylaxis: Lovenox Full code need for inpatient; management of acute alcohol withdrawal Quality Stroke Does the patient have a stroke diagnosis?: No VTE Prior VTE?: No VTE Risk Level:: Medical - moderate - high VTE Device Contraindication: Treatment Not Indicated VTE Drug Contraindication: N/A - Med Ordered
--- NOTE | 2023-09-28 15:01 | MHC.CM.PN ---
pt agreeable to str asking cm about clothes she would like to stop home to pick out her clothes hersaelf explined that was not possible she does not want her called to being clothes she said she woul;d figure it out
[2023-09-28 15:55] VITALS: BP 136/80; PULSE 89; RESP 18; TEMP 36.6; O2SAT 95
--- NOTE | 2023-09-28 19:11 | PC.NURSE ---
Pt refusing high fall risk interventions. Witnessed by staff turning off her bed alarm and ambulating in room independently. When told she was not allowed to do that, pt stated that she will continue to do so.
[2023-09-28 19:28] VITALS: BP 122/71; PULSE 92; RESP 18; TEMP 36.3; O2SAT 98
--- NOTE | 2023-09-28 21:00 | PC.NURSE ---
Pt alert/oriented to self, place & time, patient is in an out of confusion, talking about swearing her was just here, and was laying down next to her. Confusing her hospital room with her home, calling out for family members. Pt is very sensitive to noise, and gets startled very easily. Lung sounds clear and BSx4 no pain with palpation. Bruises scattered throughout body. Pt turns off bed alarm, pt seen ambulating in room with walker, with a steady gait.
[2023-09-28 23:36] VITALS: BP 185/97; PULSE 99; RESP 18; TEMP 36.2; O2SAT 100
--- NOTE | 2023-09-28 23:47 | PM.EVENT ---
Event Note Date of Service: 09/29/23 Event Note: Contacted by ground operations supervisor because patient fell on her buttocks and did not hit her head this time. I evaluated pt. Upon arrival to her room she was sitting in bed. She seems confused and not willing to listen to our advice about avoiding getting out of bed without biology research assistant as she is at risk of traumatic injuries. According to nurse, patient is refusing to have a surveillance camera. Patient continuous to have a poor insight of her current issues with her gait. I recommended to have a sitter. Time Spent With Patient Time: Total time managing care of this patient today ____ minutes.
[2023-09-29 00:56] VITALS: BP 137/78; PULSE 84; RESP 18; TEMP 36.6; O2SAT 98
--- NOTE | 2023-09-29 01:00 | PC.NURSE ---
This RN found patient on floor, sitting up straight. Pt stated I didn't hit my head, I landed on my butt. Vital signs were taken post fall, no injury sustained during fall, pt is agreeable to bed alarm with Dr. Luis. Biological Technician Sunitha & provider Toby made aware and at bedside.
[2023-09-29] MEDS: LORazepam 1 MG TABLET PO (01:06)
[2023-09-29 02:58] VITALS: BP 122/72; PULSE 83; RESP 18; TEMP 36.5; O2SAT 98
[2023-09-29] MEDS: PHENobarbitaL sodium 130 MG/ML VIAL IM (03:14)
--- NOTE | 2023-09-29 03:48 | PC.NURSE ---
Pt continues to not hit call hazel, and tries to turn bed alarm off as this RN walked into room. Pt has been repeatedly reminded to use call hazel. Pt states, I am, no is answering, there standing right there smooching faces. Pt continues to hallucinate. Pt reassured that no one is in the room, and reinforced the use of the call hazel and ed alarm.
[2023-09-29] MEDS: PHENobarbitaL 15 MG TABLET PO (05:57)
[2023-09-29] MEDS: Acetaminophen 325 MG TABLET 650 MG PO ×2 (05:57→16:56)
[2023-09-29 08:00] VITALS: BP 112/68; PULSE 77; RESP 12; TEMP 37; O2SAT 95
[2023-09-29] MEDS: DULoxetine HCl 60 MG CAPSULE.DR PO (08:10)
[2023-09-29] MEDS: Multivitamin TABLET 1 TAB PO (08:10)
[2023-09-29] MEDS: Cyanocobalamin (Vitamin B-12) 100 MCG TABLET PO (08:10)
[2023-09-29] MEDS: Folic Acid 1 MG TABLET PO (08:10)
[2023-09-29] MEDS: Thiamine HCL 100 MG TABLET PO (08:10)
[2023-09-29] MEDS: 0.9 % Sodium Chloride Flush 3 ML SYRINGE IVFLUSH ×2 (08:16→16:10)
--- NOTE | 2023-09-29 11:56 | MHC.CM.PN ---
pt now has a sitter psych eval pending
--- NOTE | 2023-09-29 14:02 | P.PNIM_ITS ---
Subjective Subjective Date of Service: 09/29/23 Interval History: f/u on alcohol withdrawal Pt was confused overnight and fell yet again Physical Exam 2 Vital Signs: Vital Signs: Last Vital Signs Temp 98.6 F 09/29/23 08:00 Pulse 77 09/29/23 08:00 Resp 12 09/29/23 08:00 BP 112/68 09/29/23 08:00 Pulse Ox 95 09/29/23 08:00 O2 Del Method Room Air 09/29/23 08:00 BMI result Body Mass Index 40.3 Const: Other: General: AO X 3, no acute distress Resp: CTA bilateral CVS: S1,S2,RRR GI: +BS, NT, no distention Skin: No rash Neuro: motor grossly intact Psych: appropriate affect Objective Data Active Medications Acetaminophen (Acetaminophen 325 Mg Tablet) 650 mg PO Q6H PRN PRN Reason: Pain, Mild (Pain Scale 1-3), fever or headache Last Admin: 09/29/23 05:57 Dose: 650 mg Documented By: JESUS Calcium Carbonate (Calcium Carbonate 750 Mg Tab.Chew) 750 mg PO Q4H PRN PRN Reason: Heartburn Cyanocobalamin (Cyanocobalamin (Vitamin B-12) 100 Mcg Tablet) 100 mcg PO DAILY [facility] Last Admin: 09/29/23 08:10 Dose: 100 mcg Documented By: ANTONIO Duloxetine HCl (Duloxetine Hcl 60 Mg Capsule.Dr) 60 mg PO DAILY [facility] Last Admin: 09/29/23 08:10 Dose: 60 mg Documented By: ANTONIO Folic Acid (Folic Acid 1 Mg Tablet) 1 mg PO DAILY [facility] Last Admin: 09/29/23 08:10 Dose: 1 mg Documented By: ANTONIO Gabapentin (Gabapentin 300 Mg Capsule) 300 mg PO DAILY [facility] Last Admin: 09/27/23 08:03 Dose: 300 mg Documented By: XOCHILT Magnesium Hydroxide (Milk Of Magnesia 30 Ml Oral.Susp) 30 ml PO DAILY PRN PRN Reason: Constipation Last Admin: 09/25/23 20:37 Dose: 30 ml Documented By: MARITA Meclizine HCl (Meclizine Hcl 12.5 Mg Tablet) 12.5 mg PO TID PRN PRN Reason: Nausea And Vomiting Melatonin (Melatonin 3 Mg Tablet) 6 mg PO BEDTIME PRN PRN Reason: Insomnia Multivitamins/Vitamin C (Multivitamin Tablet) 1 tab PO DAILY [facility] Last Admin: 09/29/23 08:10 Dose: 1 tab Documented By: ANTONIO Pharmacy Consult (Consult Rx Etoh Phenob Im/Po) 1 each MISCELLANE ONCE PRN; Protocol PRN Reason: Consult order Phenobarbital (Phenobarbital 15 Mg Tablet) 15 mg PO DAILY@0600 [facility]; Protocol Stop: 09/30/23 06:01 Last Admin: 09/29/23 05:57 Dose: 15 mg Documented By: JESUS Phenobarbital Sodium (Phenobarbital Sodium 130 Mg/Ml Vial) 130 mg IM ONCE PRN PRN Reason: Alcohol Withdrawal Last Admin: 09/27/23 09:46 Dose: 130 mg Documented By: XOCHILT Sodium Chloride (0.9 % Sodium Chloride Flush 3 Ml Syringe) 3 ml IVFLUSH QSHIFT [facility] Last Admin: 09/29/23 08:16 Dose: 3 ml Documented By: ANTONIO Thiamine HCl (Thiamine Hcl 100 Mg Tablet) 100 mg PO DAILY [facility] Last Admin: 09/29/23 08:10 Dose: 100 mg Documented By: ANTONIO Trazodone HCl (Trazodone Hcl 50 Mg Tablet) 50 mg PO BEDTIME [facility] Last Admin: 09/27/23 20:37 Dose: 50 mg Documented By: HUMPHREY Zolpidem Tartrate (Zolpidem Tartrate 5 Mg Tablet) 5 mg PO BEDTIME [facility] Last Admin: 09/27/23 20:37 Dose: 5 mg Documented By: HUMPHREY Labs 09/25/23 05:40 09/27/23 05:21 Assessment and Plan (1) Alcohol use disorder, severe, dependence: Status: Acute (2) Falls frequently: Status: Acute Plan This is a 52-year-old female with pertinent history of alcohol use disorder, opioid use disorder on Suboxone, mood disorder who presents to the emergency department for concerns of alcohol withdrawal. # Alcohol use disorder with acute alcohol withdrawal,symptoms are minimal now -continue phenobarbital per protocol, folic acid and thiamine replacmentn -addiction team following # Frequent falls and generalized weakness likely in the setting of Alcoholism Physical therapy recommended SNF placement , patient willing to go, nl b12 and folate # Mood disorder: Continue duloxetine and trazodone, get Psych consult # Opioid use disorder on Suboxone # Normocytic anemia: Hemoglobin above transfusion threshold # Thrombocytopenia: Chronic and stable # Obesity: Counseled regarding diet # Elevated liver enzymes in the setting of alcohol use disorder DVT prophylaxis: Lovenox Full code need for inpatient; management of acute alcohol withdrawal Quality Stroke Does the patient have a stroke diagnosis?: No VTE Prior VTE?: No VTE Risk Level:: Medical - moderate - high VTE Device Contraindication: Treatment Not Indicated VTE Drug Contraindication: N/A - Med Ordered
[2023-09-29 15:18] VITALS: BP 121/93; PULSE 80; RESP 18; TEMP 36.8; O2SAT 97
[2023-09-29] MEDS: traMADoL HCL 50 MG TABLET 25 MG PO (16:56)
--- NOTE | 2023-09-29 17:37 | P.CNPS_ITS ---
History of Present Illness Date of Service: 09/29/23 Chief Complaint: Alcohol Withdrawal Requesting physician: Sai Hirsch Discussed with referring provider: Yes Sources of Information: patient interviewed and chart reviewed HPI Narrative: Patient is a 52 year old female with history of severe alcohol dependence, numerous detoxes, opiate dependence, anxiety/depression, who presents for alcohol withdrawal, currently on a phenobarbital taper on the medical floor. Patient having hallucinations and psychiatry consulted to assess. Patient organized behavior and speech. She denies any history of hallucinations separate from withdrawal. Patient reports that during past alcohol detox is, she has had hallucinations but this time they are much more pronounced. Patient reports she has been hearing her 's voice, thought she saw and felt her cat on the bed and hearing other family members voices. Patient said it is getting better, that yesterday it was more pronounced but today it is definitely waning in intensity. At all times patient has known that these are only hallucinations associated with withdrawal and that they are not real. Patient asks for increase in phenobarbital either dose or frequency; she is also reported benefiting from gabapentin during detox. Past Psychiatric History: Denies any psychiatric admissions. Has been sectioned 35 in past and in residential tx for etoh. Denies history of psychosis, ras or violence. Had EMDR after finding her first from hanging Medical Evaluation Reviewed: Yes [facility] Medical History Alcohol use disorder, severe, dependence Korsakoff syndrome Thrombocytopenia Alcohol withdrawal syndrome Abscess of axilla, right Rash Encounter for monitoring Suboxone maintenance therapy Hypertension Opioid use disorder Alcohol abuse Surgical History History of total knee arthroplasty History of gastric surgery Family History: Reports grandfather jumped out 3rd story window and killed himself. Brother with addiction issues Social History: see above Substance History: Long history of severe alcohol dependence Trauma History: As above witnessed first 's body after he hung himself. Denies childhood trauma Diagnostics Vital Signs (24Hr): Vital Signs - 24 hr 09/28/23 19:28 09/28/23 23:36 09/29/23 00:56 Temperature 97.3 F 97.1 F 97.8 F Pulse Rate 92 99 84 Respiratory Rate 18 18 18 Blood Pressure 122/71 185/97 H 137/78 Pulse Oximetry 98 100 98 Oxygen Delivery Method Room Air Room Air Room Air 09/29/23 02:58 09/29/23 08:00 09/29/23 15:18 Temperature 97.7 F 98.6 F 98.2 F Pulse Rate 83 77 80 Respiratory Rate 18 12 18 Blood Pressure 122/72 112/68 121/93 H Pulse Oximetry 98 95 97 Oxygen Delivery Method Room Air Room Air Room Air BMI result Body Mass Index 40.3 Labs 09/25/23 05:40 09/27/23 05:21 Imaging Radiology Impressions: ITS Impressions Cervical Spine CT 09/23/23 05:55 IMPRESSION: 1. No acute intracranial finding. 2. No acute cervical spine fracture or malalignment. 3. Multilevel cervical spondylosis. 4. No significant interval change. Head CT 09/23/23 05:55 IMPRESSION: 1. No acute intracranial finding. 2. No acute cervical spine fracture or malalignment. 3. Multilevel cervical spondylosis. 4. No significant interval change. Cervical Spine CT 09/28/23 04:00 IMPRESSION: HEAD: No acute intracranial finding. Right parieto-occipital scalp soft tissue swelling. CERVICAL SPINE: 1. No acute fracture or dislocation seen. 2. There is diffuse [id number] cervical spondylosis with multilevel mild to moderate spinal canal and neuroforaminal narrowing. 3. Grade 1 anterolisthesis C4 over C5 is stable. Head CT 09/28/23 04:00 IMPRESSION: HEAD: No acute intracranial finding. Right parieto-occipital scalp soft tissue swelling. CERVICAL SPINE: 1. No acute fracture or dislocation seen. 2. There is diffuse gfbo-pw-[id number] cervical spondylosis with multilevel mild to moderate spinal canal and neuroforaminal narrowing. 3. Grade 1 anterolisthesis C4 over C5 is stable. Mental Status Exam Mental Status Exam Narrative: Pt is alert and oriented; behavior is currently cooperative, friendly and calm; patient is not in distress; dressed in casual attire with unkempt hair but adequate hygiene; mood is described as anxious and affect congruent; eye contact appropriate; Speech is verbose and a little pressured however she says it is normal for her to talk this way; no psychomotor agitation/retardation present; thought process is organized and goal directed though also circumstantial; Thought content is on tx, detox symptoms; otherwise pertinent to relevant topics and without any delusional content, paranoid ideations or grandiosity; intermittent AH due to alcohol withdrawal. Patient does not appear internally preoccupied. Patients insight and judgment appear intact. Medications Medications Current Medications Acetaminophen (Acetaminophen 325 Mg Tablet) 650 mg PO Q6H PRN PRN Reason: Pain, Mild (Pain Scale 1-3), fever or headache Last Admin: 09/29/23 16:56 Dose: 650 mg Buprenorphine/Naloxone (Buprenorphine/Naloxone 4/1 Mg Film) 1 film SUBLINGUAL BID@0900,1700 [facility] Calcium Carbonate (Calcium Carbonate 750 Mg Tab.Chew) 750 mg PO Q4H PRN PRN Reason: Heartburn Cyanocobalamin (Cyanocobalamin (Vitamin B-12) 100 Mcg Tablet) 100 mcg PO DAILY [facility] Last Admin: 09/29/23 08:10 Dose: 100 mcg Duloxetine HCl (Duloxetine Hcl 60 Mg Capsule.Dr) 60 mg PO DAILY [facility] Last Admin: 09/29/23 08:10 Dose: 60 mg Folic Acid (Folic Acid 1 Mg Tablet) 1 mg PO DAILY [facility] Last Admin: 09/29/23 08:10 Dose: 1 mg Gabapentin (Gabapentin 300 Mg Capsule) 300 mg PO DAILY [facility] Last Admin: 09/27/23 08:03 Dose: 300 mg Magnesium Hydroxide (Milk Of Magnesia 30 Ml Oral.Susp) 30 ml PO DAILY PRN PRN Reason: Constipation Last Admin: 09/25/23 20:37 Dose: 30 ml Meclizine HCl (Meclizine Hcl 12.5 Mg Tablet) 12.5 mg PO TID PRN PRN Reason: Nausea And Vomiting Melatonin (Melatonin 3 Mg Tablet) 6 mg PO BEDTIME PRN PRN Reason: Insomnia Multivitamins/Vitamin C (Multivitamin Tablet) 1 tab PO DAILY [facility] Last Admin: 09/29/23 08:10 Dose: 1 tab Pharmacy Consult (Consult Rx Etoh Phenob Im/Po) 1 each MISCELLANE ONCE PRN; Protocol PRN Reason: Consult order Phenobarbital (Phenobarbital 15 Mg Tablet) 15 mg PO DAILY@0600 [facility]; Protocol Stop: 09/30/23 06:01 Last Admin: 09/29/23 05:57 Dose: 15 mg Phenobarbital Sodium (Phenobarbital Sodium 130 Mg/Ml Vial) 130 mg IM ONCE PRN PRN Reason: Alcohol Withdrawal Last Admin: 09/27/23 09:46 Dose: 130 mg Sodium Chloride (0.9 % Sodium Chloride Flush 3 Ml Syringe) 3 ml IVFLUSH QSHIFT [facility] Last Admin: 09/29/23 16:10 Dose: 3 ml Thiamine HCl (Thiamine Hcl 100 Mg Tablet) 100 mg PO DAILY [facility] Last Admin: 09/29/23 08:10 Dose: 100 mg Tramadol HCl (Tramadol Hcl 50 Mg Tablet) 25 mg PO Q6H PRN PRN Reason: Pain, Severe (Pain Scale 7-10) Last Admin: 09/29/23 16:56 Dose: 25 mg Trazodone HCl (Trazodone Hcl 50 Mg Tablet) 50 mg PO BEDTIME [facility] Last Admin: 09/27/23 20:37 Dose: 50 mg Zolpidem Tartrate (Zolpidem Tartrate 5 Mg Tablet) 5 mg PO BEDTIME [facility] Last Admin: 09/27/23 20:37 Dose: 5 mg Allergies Allergies Allergy/AdvReac Type Severity Reaction Status Date / Time No Known Allergies Allergy Verified 09/23/23 05:19 Assessment & Plan Assessment & Plan (1) Alcohol use disorder, severe, dependence: Status: Acute Code(s): F10.20 - Alcohol dependence, uncomplicated (2) Alcohol withdrawal hallucinosis: Status: Acute Code(s): F10.932 - Alcohol use, unspecified with withdrawal with perceptual disturbance Plan Patient is a 52 year old female with history of severe alcohol dependence, numerous detoxes,opiate dependence (on suboxone) anxiety/depression, who presents for alcohol withdrawal, currently on a phenobarbital taper on the medical floor. Patient having hallucinations and psychiatry consulted to assess. Impression/plan: Patient is having withdrawal symptoms which include alcoholic hallucinosis, consisting of both visual, tactile auditory hallucinations. She is fully oriented and knows that these are just hallucinations and that they are not real. No delirium noted. Patient reports she has had similar symptoms in the past during alcohol detox is; otherwise no history of AVH or psychotic illness. Recommend considering an increase in phenobarbital dose and/or increasing the frequency of dosing. If not increasing phenobarbital, would consider increasing gabapentin to 300 mg t.i.d. for few days then tapering off. Total time managing care of this patient today ____ minutes. Patient educated on: diagnosis, medication risk/benefits, substance abuse and medical condition Informed Consent: understands
[2023-09-29] MEDS: Buprenorphine/Naloxone 4/1 mg FILM 1 FILM SUBLINGUAL (17:57)
[2023-09-29 19:30] VITALS: BP 105/61; PULSE 80; RESP 13; TEMP 36.4; O2SAT 96
[2023-09-29] MEDS: PHENobarbitaL 30 MG TABLET 60 MG PO (21:08)
[2023-09-30] MEDS: traMADoL HCL 50 MG TABLET 25 MG PO ×2 (01:39→14:36)
[2023-09-30 02:00] VITALS: BP 142/80; PULSE 97; RESP 18; TEMP 36.4; O2SAT 99
[2023-09-30] MEDS: Acetaminophen 325 MG TABLET 650 MG PO ×2 (05:50→16:09)
[2023-09-30 07:32] VITALS: BP 111/71; PULSE 82; RESP 18; TEMP 36; O2SAT 97
[2023-09-30] MEDS: Thiamine HCL 100 MG TABLET PO (08:20)
[2023-09-30] MEDS: Cyanocobalamin (Vitamin B-12) 100 MCG TABLET PO (08:20)
[2023-09-30] MEDS: Multivitamin TABLET 1 TAB PO (08:20)
[2023-09-30] MEDS: Buprenorphine/Naloxone 4/1 mg FILM 1 FILM SUBLINGUAL ×2 (08:20→16:37)
[2023-09-30] MEDS: DULoxetine HCl 60 MG CAPSULE.DR PO (08:20)
[2023-09-30] MEDS: PHENobarbitaL 30 MG TABLET 60 MG PO ×2 (08:20→20:27)
[2023-09-30] MEDS: Folic Acid 1 MG TABLET PO (08:20)
[2023-09-30] MEDS: 0.9 % Sodium Chloride Flush 3 ML SYRINGE IVFLUSH (08:21)
--- NOTE | 2023-09-30 11:18 | MHC.RECOVRN ---
Met with pt in 345 to check in and provide support. Pt laying in bed, awake, alert, easily engages in conversation. Pt reports she is due for Sublocade injection on 10/05 and has started to feel some withdrawal symptoms. Pt reports she had been feeling some back pain, however, this has been alleviated with the supplemental Suboxone films. Pt denies other withdrawal symptoms. Pt denies questions or concerns for t/w. Discussed with Yazmin Mckinnon APRN.
--- NOTE | 2023-09-30 11:29 | P.PNIM_ITS ---
Subjective Subjective Date of Service: 10/01/23 Interval History: f/u on alcohol withdrawal She is lucid this morning and there is no report of fall overnight, No other sings ofalcohol withdrawal Physical Exam 2 Vital Signs: Vital Signs: Last Vital Signs Temp 96.8 F 09/30/23 07:32 Pulse 82 09/30/23 07:32 Resp 18 09/30/23 07:32 BP 111/71 09/30/23 07:32 Pulse Ox 97 09/30/23 07:32 O2 Del Method Room Air 09/30/23 07:32 BMI result Body Mass Index 40.3 Objective Data Active Medications Acetaminophen (Acetaminophen 325 Mg Tablet) 650 mg PO Q6H PRN PRN Reason: Pain, Mild (Pain Scale 1-3), fever or headache Last Admin: 09/30/23 05:50 Dose: 650 mg Documented By: JESUS Buprenorphine/Naloxone (Buprenorphine/Naloxone 4/1 Mg Film) 1 film SUBLINGUAL BID@0900,1700 [facility] Last Admin: 09/30/23 08:20 Dose: 1 film Documented By: PEDRO Calcium Carbonate (Calcium Carbonate 750 Mg Tab.Chew) 750 mg PO Q4H PRN PRN Reason: Heartburn Cyanocobalamin (Cyanocobalamin (Vitamin B-12) 100 Mcg Tablet) 100 mcg PO DAILY [facility] Last Admin: 09/30/23 08:20 Dose: 100 mcg Documented By: JONNIEEMA Duloxetine HCl (Duloxetine Hcl 60 Mg Capsule.Dr) 60 mg PO DAILY [facility] Last Admin: 09/30/23 08:20 Dose: 60 mg Documented By: COTEMA Folic Acid (Folic Acid 1 Mg Tablet) 1 mg PO DAILY [facility] Last Admin: 09/30/23 08:20 Dose: 1 mg Documented By: JONNIEEMA Gabapentin (Gabapentin 300 Mg Capsule) 300 mg PO DAILY [facility] Last Admin: 09/27/23 08:03 Dose: 300 mg Documented By: XOCHILT Magnesium Hydroxide (Milk Of Magnesia 30 Ml Oral.Susp) 30 ml PO DAILY PRN PRN Reason: Constipation Last Admin: 09/25/23 20:37 Dose: 30 ml Documented By: MARITA Meclizine HCl (Meclizine Hcl 12.5 Mg Tablet) 12.5 mg PO TID PRN PRN Reason: Nausea And Vomiting Melatonin (Melatonin 3 Mg Tablet) 6 mg PO BEDTIME PRN PRN Reason: Insomnia Multivitamins/Vitamin C (Multivitamin Tablet) 1 tab PO DAILY [facility] Last Admin: 09/30/23 08:20 Dose: 1 tab Documented By: PEDRO Pharmacy Consult (Consult Rx Etoh Phenob Im/Po) 1 each MISCELLANE ONCE PRN; Protocol PRN Reason: Consult order Phenobarbital (Phenobarbital 30 Mg Tablet) 60 mg PO BID [facility] Last Admin: 09/30/23 08:20 Dose: 60 mg Documented By: PEDRO Phenobarbital Sodium (Phenobarbital Sodium 130 Mg/Ml Vial) 130 mg IM ONCE PRN PRN Reason: Alcohol Withdrawal Last Admin: 09/27/23 09:46 Dose: 130 mg Documented By: ANNALISAITZMo Sodium Chloride (0.9 % Sodium Chloride Flush 3 Ml Syringe) 3 ml IVFLUSH QSHIFT [facility] Last Admin: 09/30/23 08:21 Dose: 3 ml Documented By: PEDRO Thiamine HCl (Thiamine Hcl 100 Mg Tablet) 100 mg PO DAILY [facility] Last Admin: 09/30/23 08:20 Dose: 100 mg Documented By: PEDRO Tramadol HCl (Tramadol Hcl 50 Mg Tablet) 25 mg PO Q6H PRN PRN Reason: Pain, Severe (Pain Scale 7-10) Last Admin: 09/30/23 01:39 Dose: 25 mg Documented By: JESUS Trazodone HCl (Trazodone Hcl 50 Mg Tablet) 50 mg PO BEDTIME [facility] Last Admin: 09/27/23 20:37 Dose: 50 mg Documented By: HUMPHREY Zolpidem Tartrate (Zolpidem Tartrate 5 Mg Tablet) 5 mg PO BEDTIME [facility] Last Admin: 09/27/23 20:37 Dose: 5 mg Documented By: HUMPHREY Labs 09/25/23 05:40 09/27/23 05:21 Assessment and Plan (1) Alcohol use disorder, severe, dependence: Status: Acute (2) Falls frequently: Status: Acute Plan This is a 52-year-old female with pertinent history of alcohol use disorder, opioid use disorder on Suboxone, mood disorder who presents to the emergency department for concerns of alcohol withdrawal. #Alcohol use disorder with acute alcohol withdrawal,symptoms are minimal now -continue phenobarbital per protocol, folic acid and thiamine replacmentn -addiction team following # Frequent falls and generalized weakness likely in the setting of Alcoholism Physical therapy recommended SNF placement , patient willing to go, nl b12 and folate # Mood disorder: Continue duloxetine and trazodone, get Psych consult # Opioid use disorder on Suboxone # Normocytic anemia: Hemoglobin above transfusion threshold # Thrombocytopenia: Chronic and stable # Obesity: Counseled regarding diet # Elevated liver enzymes in the setting of alcohol use disorder DVT prophylaxis: Lovenox Full code need for inpatient; management of acute alcohol withdrawal Quality Stroke Does the patient have a stroke diagnosis?: No VTE Prior VTE?: No VTE Risk Level:: Medical - moderate - high VTE Device Contraindication: Treatment Not Indicated VTE Drug Contraindication: N/A - Med Ordered
--- NOTE | 2023-09-30 13:23 | MHC.CM.PN ---
per rounds pt is ready for dc pt still has a sitter and cameras explained that pt has to be siteter and camera free for at least 24 hrs
[2023-09-30 15:08] VITALS: BP 138/73; PULSE 78; RESP 13; TEMP 36.6; O2SAT 98
[2023-09-30 15:19] LABS: Vitamin B1 116 nmol/L (8-30)
--- NOTE | 2023-09-30 17:31 | PC.NURSE ---
Sitter removed from pts room this shift at 10:00am.
[2023-09-30 19:21] VITALS: BP 131/75; PULSE 69; RESP 13; TEMP 36.3; O2SAT 96
[2023-10-01] MEDS: traMADoL HCL 50 MG TABLET 25 MG PO ×3 (00:26→15:57)
[2023-10-01] MEDS: Acetaminophen 325 MG TABLET 650 MG PO ×3 (00:29→15:57)
[2023-10-01 04:00] VITALS: BP 117/55; PULSE 81; RESP 18; TEMP 36.1; O2SAT 96
[2023-10-01] MEDS: Buprenorphine/Naloxone 4/1 mg FILM 1 FILM SUBLINGUAL ×2 (06:34→16:26)
[2023-10-01 07:27] VITALS: BP 147/85; PULSE 83; RESP 18; TEMP 36.7; O2SAT 99
--- NOTE | 2023-10-01 07:49 | P.PNIM_ITS ---
Subjective Subjective Date of Service: 10/01/23 Interval History: f/u on alcohol withdrawal no confusion, no withdrawal sings, she is expressing doubt about going to SNF c/o right shoulder and elbow pain Physical Exam 2 Vital Signs: Vital Signs: Last Vital Signs Temp 98.1 F 10/01/23 07:27 Pulse 83 10/01/23 07:27 Resp 18 10/01/23 07:27 BP 147/85 H 10/01/23 07:27 Pulse Ox 99 10/01/23 07:27 O2 Del Method Room Air 10/01/23 07:27 BMI result Body Mass Index 40.3 Const: Other: General: AO X 3, no acute distress Resp: CTA bilateral CVS: S1,S2,RRR GI: +BS, NT, no distention Skin: No rash, bruses on arm, right shoulder area Neuro: motor grossly intact Psych: appropriate affect Objective Data Active Medications Acetaminophen (Acetaminophen 325 Mg Tablet) 650 mg PO Q6H PRN PRN Reason: Pain, Mild (Pain Scale 1-3), fever or headache Last Admin: 10/01/23 00:29 Dose: 650 mg Documented By: ELVIA Buprenorphine/Naloxone (Buprenorphine/Naloxone 4/1 Mg Film) 1 film SUBLINGUAL BID@0500,2100 [facility] Last Admin: 10/01/23 06:34 Dose: 1 film Documented By: ELVIA Calcium Carbonate (Calcium Carbonate 750 Mg Tab.Chew) 750 mg PO Q4H PRN PRN Reason: Heartburn Cyanocobalamin (Cyanocobalamin (Vitamin B-12) 100 Mcg Tablet) 100 mcg PO DAILY [facility] Last Admin: 09/30/23 08:20 Dose: 100 mcg Documented By: PEDRO Duloxetine HCl (Duloxetine Hcl 60 Mg Capsule.Dr) 60 mg PO DAILY [facility] Last Admin: 09/30/23 08:20 Dose: 60 mg Documented By: JONNIEEMA Folic Acid (Folic Acid 1 Mg Tablet) 1 mg PO DAILY [facility] Last Admin: 09/30/23 08:20 Dose: 1 mg Documented By: PEDRO Gabapentin (Gabapentin 300 Mg Capsule) 300 mg PO DAILY [facility] Last Admin: 09/27/23 08:03 Dose: 300 mg Documented By: XOCHILT Magnesium Hydroxide (Milk Of Magnesia 30 Ml Oral.Susp) 30 ml PO DAILY PRN PRN Reason: Constipation Last Admin: 09/25/23 20:37 Dose: 30 ml Documented By: MARITA Meclizine HCl (Meclizine Hcl 12.5 Mg Tablet) 12.5 mg PO TID PRN PRN Reason: Nausea And Vomiting Melatonin (Melatonin 3 Mg Tablet) 6 mg PO BEDTIME PRN PRN Reason: Insomnia Multivitamins/Vitamin C (Multivitamin Tablet) 1 tab PO DAILY [facility] Last Admin: 09/30/23 08:20 Dose: 1 tab Documented By: PEDRO Pharmacy Consult (Consult Rx Etoh Phenob Im/Po) 1 each MISCELLANE ONCE PRN; Protocol PRN Reason: Consult order Phenobarbital (Phenobarbital 30 Mg Tablet) 60 mg PO BID [facility] Last Admin: 09/30/23 20:27 Dose: 60 mg Documented By: ELVIA Phenobarbital Sodium (Phenobarbital Sodium 130 Mg/Ml Vial) 130 mg IM ONCE PRN PRN Reason: Alcohol Withdrawal Last Admin: 09/27/23 09:46 Dose: 130 mg Documented By: XOCHILT Sodium Chloride (0.9 % Sodium Chloride Flush 3 Ml Syringe) 3 ml IVFLUSH QSHIFT [facility] Last Admin: 10/01/23 07:07 Dose: Not Given Documented By: RAFAELA Non-Admin Reason: No Access Thiamine HCl (Thiamine Hcl 100 Mg Tablet) 100 mg PO DAILY [facility] Last Admin: 09/30/23 08:20 Dose: 100 mg Documented By: PEDRO Tramadol HCl (Tramadol Hcl 50 Mg Tablet) 25 mg PO Q6H PRN PRN Reason: Pain, Severe (Pain Scale 7-10) Last Admin: 10/01/23 00:26 Dose: 25 mg Documented By: ELVIA Trazodone HCl (Trazodone Hcl 50 Mg Tablet) 50 mg PO BEDTIME [facility] Last Admin: 09/27/23 20:37 Dose: 50 mg Documented By: HUMPHREY Zolpidem Tartrate (Zolpidem Tartrate 5 Mg Tablet) 5 mg PO BEDTIME [facility] Last Admin: 09/27/23 20:37 Dose: 5 mg Documented By: HUMPHREY Labs 09/25/23 05:40 09/27/23 05:21 Labs: Laboratory Results - last 24 hr 09/24/23 05:17 Vitamin B1 116 H Assessment and Plan (1) Alcohol use disorder, severe, dependence: Status: Acute (2) Falls frequently: Status: Acute Plan This is a 52-year-old female with pertinent history of alcohol use disorder, opioid use disorder on Suboxone, mood disorder who presents to the emergency department for concerns of alcohol withdrawal. #Alcohol use disorder with acute alcohol withdrawal,symptoms are minimal now -continue phenobarbital per protocol, folic acid and thiamine replacmentn -addiction team following # Frequent falls and generalized weakness likely in the setting of Alcoholism Physical therapy recommended SNF placement, she's expressing doubt about going to rehab # Mood disorder: Continue duloxetine and trazodone, get Psych consult # Opioid use disorder on Suboxone # Normocytic anemia: Hemoglobin above transfusion threshold # Thrombocytopenia: Chronic and stable # Obesity: Counseled regarding diet # Elevated liver enzymes in the setting of alcohol use disorder # Right should/elbow pain--xray DVT prophylaxis: Lovenox Full code need for inpatient; management of acute alcohol withdrawal Quality Stroke Does the patient have a stroke diagnosis?: No VTE Prior VTE?: No VTE Risk Level:: Medical - moderate - high VTE Device Contraindication: Treatment Not Indicated VTE Drug Contraindication: N/A - Med Ordered
[2023-10-01] MEDS: Thiamine HCL 100 MG TABLET PO (08:13)
[2023-10-01] MEDS: Multivitamin TABLET 1 TAB PO (08:13)
[2023-10-01] MEDS: PHENobarbitaL 30 MG TABLET 60 MG PO ×2 (08:14→20:23)
[2023-10-01] MEDS: Folic Acid 1 MG TABLET PO (08:14)
[2023-10-01] MEDS: Cyanocobalamin (Vitamin B-12) 100 MCG TABLET PO (08:14)
[2023-10-01] MEDS: DULoxetine HCl 60 MG CAPSULE.DR PO (08:14)
[2023-10-01 08:42] LABS: Anion Gap 11 (12-20); Blood Urea Nitrogen 10 mg/dL (9-16); Calcium 8.8 mg/dL (8.4-10.2); Carbon Dioxide 26 mmol/L (22-29); Chloride 104 mmol/L (96-108); Estimated Glomerular Filt Rate > 60; Glucose Random 95 mg/dL (60-115); Magnesium 1.9 mg/dL (1.6-2.6); Sodium 137 mmol/L (135-145)
[2023-10-01 15:15] VITALS: BP 139/84; PULSE 75; RESP 20; TEMP 36.4; O2SAT 98
--- NOTE | 2023-10-01 15:44 | MHC.CM.PN ---
PER MD AND ADDICTION MEDICINE DIRECTOR, PT WILL DC TO [facility] TOMORROW REFERRALS ARE OUT, AWAITING BED OFFERS PLAN IS FOR PT TO DC TOMORROW, TO [facility] VS HOME WITH SERVICES PENDING HER FINAL PREFERENCE SHE WILL NEED BLS TRANSPORT TO SNF OR A FRIEND WILL BRING HER HOME
--- NOTE | 2023-10-01 16:21 | P.PNADD_ITS ---
Subjective Subjective Date of Service: 10/01/23 Reason For Visit: Alcohol Withdrawal Interim History: Patient seen in follow up Alcohol withdrawal sx resolved Suboxone 4mg BID to address mild withdrawal sx reported by patient (mainly back pain) Patient tearful and very emotional during interview Patient expressing that feels like she has no control over her own life. Allowed patient to process these feelings. Some avoidance when alcohol is discussed and how it may be contributing to current presentation. Verbalizing anger and frustration about STR. Stating that she misses her home and wants her own clothes. This junior copywriter reminded patient that STR is not mandatory, but is very strongly recommended, by her entire clinical care team, including t/w. Review of Systems Acute medical concerns: Yes Review of Systems Constitutional: Reports as per HPI Mental Status Exam Mental Status Exam Patient Appearance: Appropriate Level of Consciousness: Awake, Appropriate and Alert Patient Behavior: Talkative, Anxious and Crying Mood Description: Anxious Affect Description: Anxious and Sad Speech Pattern: Clear Thought Process: Rumination Thought Content: positive for Circumstantial Diagnostics Vital Signs (24Hr): Vital Signs - 24 hr 09/30/23 19:21 10/01/23 04:00 10/01/23 07:27 Temperature 97.3 F 97.0 F 98.1 F Pulse Rate 69 81 83 Respiratory Rate 13 18 18 Blood Pressure 131/75 117/55 L 147/85 H Pulse Oximetry 96 96 99 Oxygen Delivery Method Room Air Room Air Room Air 10/01/23 15:15 Temperature 97.6 F Pulse Rate 75 Respiratory Rate 20 Blood Pressure 139/84 Pulse Oximetry 98 Oxygen Delivery Method Room Air BMI result Body Mass Index 40.3 Labs 09/25/23 05:40 10/01/23 08:06 Labs: Laboratory Results - last 48 hr 09/24/23 10/01/23 05:17 08:06 Hold Purple Top SEE NOTE Sodium 137 Potassium 4.0 Chloride 104 Carbon Dioxide 26 Anion Gap 11 L BUN 10 Creatinine 0.53 Estim Creat Clear Calc 155.0 Estimated GFR > 60 Random Glucose 95 Calcium 8.8 Magnesium 1.9 Vitamin B1 116 H Imaging Radiology Impressions: ITS Impressions Cervical Spine CT 09/23/23 05:55 IMPRESSION: 1. No acute intracranial finding. 2. No acute cervical spine fracture or malalignment. 3. Multilevel cervical spondylosis. 4. No significant interval change. Head CT 09/23/23 05:55 IMPRESSION: 1. No acute intracranial finding. 2. No acute cervical spine fracture or malalignment. 3. Multilevel cervical spondylosis. 4. No significant interval change. Cervical Spine CT 09/28/23 04:00 IMPRESSION: HEAD: No acute intracranial finding. Right parieto-occipital scalp soft tissue swelling. CERVICAL SPINE: 1. No acute fracture or dislocation seen. 2. There is diffuse [id number] cervical spondylosis with multilevel mild to moderate spinal canal and neuroforaminal narrowing. 3. Grade 1 anterolisthesis C4 over C5 is stable. Head CT 09/28/23 04:00 IMPRESSION: HEAD: No acute intracranial finding. Right parieto-occipital scalp soft tissue swelling. CERVICAL SPINE: 1. No acute fracture or dislocation seen. 2. There is diffuse [id number] cervical spondylosis with multilevel mild to moderate spinal canal and neuroforaminal narrowing. 3. Grade 1 anterolisthesis C4 over C5 is stable. Elbow X-Ray 10/01/23 10:20 IMPRESSION: Degenerative changes in the shoulder and elbow without fracture or dislocation. Shoulder X-Ray 10/01/23 10:20 IMPRESSION: Degenerative changes in the shoulder and elbow without fracture or dislocation. Medications Medications Current Medications Acetaminophen (Acetaminophen 325 Mg Tablet) 650 mg PO Q6H PRN PRN Reason: Pain, Mild (Pain Scale 1-3), fever or headache Last Admin: 10/01/23 15:57 Dose: 650 mg Buprenorphine/Naloxone (Buprenorphine/Naloxone 4/1 Mg Film) 1 film [facility]BLING[facility] BID@0900,1700 [facility] Calcium Carbonate (Calcium Carbonate 750 Mg Tab.Chew) 750 mg PO Q4H PRN PRN Reason: Heartburn Cyanocobalamin (Cyanocobalamin (Vitamin B-12) 100 Mcg Tablet) 100 mcg PO DAILY [facility] Last Admin: 10/01/23 08:14 Dose: 100 mcg Duloxetine HCl (Duloxetine Hcl 60 Mg Capsule.Dr) 60 mg PO DAILY [facility] Last Admin: 10/01/23 08:14 Dose: 60 mg Folic Acid (Folic Acid 1 Mg Tablet) 1 mg PO DAILY [facility] Last Admin: 10/01/23 08:14 Dose: 1 mg Gabapentin (Gabapentin 300 Mg Capsule) 300 mg PO DAILY [facility] Last Admin: 09/27/23 08:03 Dose: 300 mg Magnesium Hydroxide (Milk Of Magnesia 30 Ml Oral.Susp) 30 ml PO DAILY PRN PRN Reason: Constipation Last Admin: 09/25/23 20:37 Dose: 30 ml Meclizine HCl (Meclizine Hcl 12.5 Mg Tablet) 12.5 mg PO TID PRN PRN Reason: Nausea And Vomiting Melatonin (Melatonin 3 Mg Tablet) 6 mg PO BEDTIME PRN PRN Reason: Insomnia Multivitamins/Vitamin C (Multivitamin Tablet) 1 tab PO DAILY [facility] Last Admin: 10/01/23 08:13 Dose: 1 tab Pharmacy Consult (Consult Rx Etoh Phenob Im/Po) 1 each MISCELLANE ONCE PRN; Protocol PRN Reason: Consult order Phenobarbital (Phenobarbital 30 Mg Tablet) 60 mg PO BID [facility] Last Admin: 10/01/23 08:14 Dose: 60 mg Phenobarbital Sodium (Phenobarbital Sodium 130 Mg/Ml Vial) 130 mg IM ONCE PRN PRN Reason: Alcohol Withdrawal Last Admin: 09/27/23 09:46 Dose: 130 mg Sodium Chloride (0.9 % Sodium Chloride Flush 3 Ml Syringe) 3 ml IVFLUSH QSHIFT [facility] Last Admin: 10/01/23 15:11 Dose: Not Given Thiamine HCl (Thiamine Hcl 100 Mg Tablet) 100 mg PO DAILY [facility] Last Admin: 10/01/23 08:13 Dose: 100 mg Tramadol HCl (Tramadol Hcl 50 Mg Tablet) 25 mg PO Q6H PRN PRN Reason: Pain, Severe (Pain Scale 7-10) Last Admin: 10/01/23 15:57 Dose: 25 mg Trazodone HCl (Trazodone Hcl 50 Mg Tablet) 50 mg PO BEDTIME [facility] Last Admin: 09/27/23 20:37 Dose: 50 mg Zolpidem Tartrate (Zolpidem Tartrate 5 Mg Tablet) 5 mg PO BEDTIME [facility] Last Admin: 09/27/23 20:37 Dose: 5 mg Allergies Allergies Allergy/AdvReac Type Severity Reaction Status Date / Time No Known Allergies Allergy Verified 09/23/23 05:19 Assessment & Plan Assessment & Plan (1) Alcohol use disorder, severe, dependence: Status: Acute Code(s): F10.20 - Alcohol dependence, uncomplicated (2) Opioid use disorder: Status: Acute Code(s): F11.90 - Opioid use, unspecified, uncomplicated Assessment and Plan: * continue suboxone 8mg BID at 9am and 5pm (avoid dosing later in evening as it can be stimulating for some patients) * Sublocade scheduled to be delivered tomorrow (10/01) if it arrived before the end of the day, legal records clerk will administer. Total time managing care of this patient today __40__ minutes.
[2023-10-01 19:12] VITALS: BP 133/78; PULSE 68; RESP 20; TEMP 36.2; O2SAT 97
[2023-10-02] MEDS: traMADoL HCL 50 MG TABLET 25 MG PO ×2 (02:16→08:24)
[2023-10-02] MEDS: Acetaminophen 325 MG TABLET 650 MG PO ×2 (02:17→08:24)
[2023-10-02 03:20] VITALS: BP 147/87; PULSE 78; RESP 18; TEMP 36.7; O2SAT 98
[2023-10-02] MEDS: Buprenorphine/Naloxone 4/1 mg FILM 1 FILM SUBLINGUAL (07:18)
[2023-10-02] MEDS: DULoxetine HCl 60 MG CAPSULE.DR PO (07:18)
[2023-10-02] MEDS: Multivitamin TABLET 1 TAB PO (07:18)
[2023-10-02] MEDS: Thiamine HCL 100 MG TABLET PO (07:18)
[2023-10-02] MEDS: Cyanocobalamin (Vitamin B-12) 100 MCG TABLET PO (07:18)
[2023-10-02] MEDS: PHENobarbitaL 30 MG TABLET 60 MG PO ×2 (07:18→15:14)
[2023-10-02] MEDS: Folic Acid 1 MG TABLET PO (07:18)
[2023-10-02 07:59] VITALS: BP 154/83; PULSE 91; RESP 18; TEMP 36.4; O2SAT 98
--- NOTE | 2023-10-02 08:40 | MHC.CM.PN ---
CM RECEIVED MESSAGE FROM [facility], THE ONLY SNF OFFERING PT A BED, UPDATES SENT PER REQUEST, CM REQUESTED SNF GO FOR AUTH, PT TO DC VIA [facility] ONCE INSURANCE AUTH OBTAINED.
[2023-10-02 08:49] VITALS: BP 154/83; PULSE 91; O2SAT 98
--- NOTE | 2023-10-02 12:37 | PM.DS ---
DS: Providers Provider Date of Service: 10/02/23 Date of admission: 09/23/23 23:21 Primary care physician: Baljeet Perry MD Consults: 09/23/23 23:19 Addiction Medicine Routine Consulting Provider: Addiction Covering Reason for consultation: alcohol use disorder 09/24/23 09:04 Addiction Medicine Routine Consulting Provider: Addiction Covering Reason for consultation: know to you Has provider been notified: Yes 09/29/23 14:01 Consult to Psychiatry Routine Consulting Provider: Psych Covering Reason for consultation: intermittent hallucination DS: Diagnosis Discharge Diagnosis (1) Alcohol use disorder, severe, dependence: Status: Acute (2) Opioid use disorder: Status: Acute DS: Summary Hospital Course Hospital Course: HPI: This is a 52-year-old female with pertinent history of alcohol use disorder, opioid use disorder on Suboxone, mood disorder who presents to the emergency department for concerns of alcohol withdrawal. Patient states her last drink was on the day of presentation. Patient admits she has been drinking heavily every day. Admits poor p.o. intake whenever she drinks alcohol. Does have a history of alcohol withdrawal. No history of alcohol withdrawal seizures. Patient states she has been having anxiety, visual hallucination since she stopped drinking. Also feels weak and is falling frequently which is getting progressively worse over the last 3 weeks. No changes in vision. No fever, chills, chest discomfort, palpitations, shortness of breath, abdominal pain, changes in urinary or bowel habits. Hospital Course: Patient was initiated on phenobarbital. She was seen in consultation by Carlo Maynard. She has completed her course of phenobarb. She is free of withdrawal symptoms at the time of discharge. For generalized weakness and frequent falls, the patient was evaluated by Physical therapy. Their recommendations were for short-term rehab, however the patient is elected for home with services. The patient will receive her Sublocade IM injection before discharge. Time Attestation Discharge Coordination Time (in mins): 45 Quality: Safe Use of Opioids Does Pt have an Active Cancer Diagnosis on the Problem List?: No Quality: Stroke Does the patient have a stroke diagnosis?: No Physical Exam Vital Signs: Vital Signs: Last Vital Signs Temp 97.5 F 10/02/23 07:59 Pulse 91 10/02/23 08:49 Resp 18 10/02/23 07:59 BP 154/83 H 10/02/23 08:49 Pulse Ox 98 10/02/23 08:49 O2 Del Method Room Air 10/02/23 07:59 BMI result Body Mass Index 40.3 Const: Other: General - no acute distress, appears comfortable Cardiovascular - regular rate and rhythm, S1-S2 Lungs - normal respiratory effort, clear to auscultation bilaterally, no wheezing Abdomen - soft, nontender, no rebound or guarding Extremities - no edema bilaterally Neuro - awake and alert, no focal deficits DS: Data Data Completed and Pending Completed studies during hospitalization [Text1]: Procedures Detoxification Services for Substance Abuse Treatment (07/19/23) Drainage of Right Upper Arm Subcutaneous Tissue and Fascia, Open Approach (05/13/23) Discharge Plan Discharge Anticipated Discharge Date/Time: 10/02/23 12:33 Patient Disposition: Home Health Service Discharge Diagnosis: alcohol abuse Referrals: Baljeet Champagne MD [Primary Care Provider] - 1 Week Discharge Medications: Continued multivitamin Tablet 1 tab PO DAILY gabapentin 300 mg capsule 300 mg PO DAILY aspirin 81 mg Tablet,Delayed Release (Dr/Ec) 81 mg PO DAILY Qty: 30 0RF disulfiram 250 mg tablet 250 mg PO DAILY Qty: 90 0RF folic acid 1 mg tablet 1 mg PO DAILY Qty: 30 3RF thiamine mononitrate (vit B1) 100 mg tablet 100 mg PO DAILY Qty: 90 3RF duloxetine 60 mg capsule,delayed release(DR/EC) 60 mg PO DAILY Sublocade 300 mg/1.5 mL solution, extended rel syringe 300 mg subcut Q28D trazodone 50 mg Tablet 50 mg PO BEDTIME Discharge Orders: Discharge Order (Routine); Ordered 10/02/23 Ordered By: Robles Tuttle Diet: Advance to usual diet Activity on Discharge: As tolerated Stand Alone Forms: Patient Portal Discharge page Print Language: Swedish Care Plan Goals: To stay healthy and out of the hospital. Health Concerns: Alcohol abuse and dependence Plan of Treatment: Complete alcohol cessation Completed treatment with phenobarb To follow-up with Addiction Medicine an outpatient Assessment: See discharge summary
--- NOTE | 2023-10-02 14:14 | P.F2F_ITS ---
Service Date Service Date: 10/02/23 Encounter Date of encounter: 10/02/23 Reasons for Services Signs and symptoms assessed: weakness gait abnormality Reason for physical therapy: home safety and mobility, therapeutic exercises and gait/transfer training MD Overseeing Care: Baljeet Perry Homebound: Leaving the home is medically contraindicated at this time without the asist of a device and/or another person due th the listed conditions above and below. Reason homebound: unsteady gait / fall risk Certification: Based on the above findings, I certify that this patient is confined to the home and needs intermittent [facility] care, physical therapy and/or speech therapy, or continues to need occupational therapy. The patient is under my care, and I have initiated the establishment of the plan of care. The patient will be followed by a physician who will periodically review the plan of care. Time Spent With Patient Time: Total time managing care of this patient today ____ minutes.
--- NOTE | 2023-10-02 14:15 | MHC.RECOVRN ---
Met with pt in 345 to follow up and administer Sublocade (300 mg, RUQ). Pt tolerated injection well. Plans to discharge home this afternoon, transported by . Pt reports she feels she can do everything she would do at the SNF at home. In regards to alcohol use, pt reports she plans to restart disulfiram at home. Pt had inquired about Suboxone rx for back pain, educated pt that she was receiving Suboxone due to it being towards the end of the month for Sublocade. Verbalizes understanding. Pt denies other questions or concerns for t/w. Discussed with Yazmin Mckinnon APRN.
--- NOTE | 2023-10-02 15:27 | MHC.CM.PN ---
pt medically cleared for dc home w/new [facility] for home PT, pt's for transport
== END 2023-10-02 15:20 | disposition home health service (06) | DRG 773 ==
LOC: HO.ED 06:58 → HO.EDOVER 23:28 → HO.S3 09-24 07:34
PROVIDERS: Internal Medicine; Student in an Organized Health Care Education/Training Program; Admitting Provider Student in an Organized Health Care Education/Training Program; Emergency Provider Emergency Medicine; PCP Internal Medicine; Visit Provider Family Medicine
DX: F10.239 Alcohol dependence with withdrawal, unspecified (principal); F11.20 Opioid dependence, uncomplicated; D61.818 Other pancytopenia; F10.229 Alcohol dependence with intoxication, unspecified; F39 Unspecified mood [affective] disorder; E66.9 Obesity, unspecified; Z68.41 Body mass index [BMI] 40.0-44.9, adult; F41.9 Anxiety disorder, unspecified; F32.A Depression, unspecified; Y90.8 Blood alcohol level of 240 mg/100 ml or more; Z87.891 Personal history of nicotine dependence; Z79.82 Long term (current) use of aspirin; Z79.899 Other long term (current) drug therapy
CPT/HCPCS: 36415; 70450; 72125; 73030; 73070; 80048; 80076; 80307; 81001; 82607; 82746; 83735; 83880; 84425; 84484; 85025; 85027; 85610; 97116; 97162; 97530; 99285; J1650; J2560; J3411

== ENCOUNTER → 2023-09-23 23:21 | Outpatient (BNV) | payer BC, MEDICAID, SELFPAY | PROVIDERS: Admitting Provider Student in an Organized Health Care Education/Training Program; Emergency Provider Emergency Medicine; Visit Provider Student in an Organized Health Care Education/Training Program | DX: F10.20 Alcohol dependence, uncomplicated (principal); F11.90 Opioid use, unspecified, uncomplicated | CPT/HCPCS: 99223; 99232; 99239; 99499; G0180 ==

== ENCOUNTER → 2023-09-23 23:21 | Outpatient (BNV) | payer BC, MEDICAID, SELFPAY | PROVIDERS: Admitting Provider Student in an Organized Health Care Education/Training Program; Emergency Provider Emergency Medicine; PCP Internal Medicine; Visit Provider Nurse Practitioner Psychiatric/Mental Health | DX: F10.20 Alcohol dependence, uncomplicated (principal); F11.90 Opioid use, unspecified, uncomplicated | CPT/HCPCS: 99232; 99253 ==

== ENCOUNTER 2023-10-13 13:52 | Emergency (ER) | payer BC, MEDICAID, SELFPAY ==
--- NOTE | ~2023-10-13 | CT_ITS ---
EXAMINATION: CT cervical spine without contrast. CT facial bones CLINICAL INDICATION: Fall,, EtOH. COMPARISON: CT cervical spine 09/28/2023. TECHNIQUE: 3 mm thin axial and reformatted 2 minutes thin sagittal and coronal images of cervical spine were obtained. Subsequently 3 mm thin axial and reformatted 1.5 and thin sagittal coronal images of facial bones were obtained. DLP 2002. This CT examination was performed using dose optimization technique as appropriate, variously including the following: Automated exposure control Adjustment of MA and/or KV according to patient size(this includes techniques or standardized protocols for targeted exams where dose is matched to indication/reason for exam; extremities or head. Use of iterative reconstruction techniques. FINDINGS: Cervical spine: There is straightening of cervical lordosis with grade 1 anterolisthesis C4 over C5. There is loss of C2-C3, C4-C5, C5-C6 and C6 S7 disc heights. No visible acute fracture, dislocation or subluxation seen. The craniovertebral junction and the C1-C2 alignment is normal. Facial bones: The paranasal sinuses are well-aerated with mild mucoperiosteal thickening left maxillary sinus. The bony sinus lincoln are intact. The nasal bones are intact. No fracture visualized. The bony orbits, bilateral TM joints are symmetrical and normal. The maxillofacial soft tissues are normal. CT/CT facial bones wo IV con IMPRESSION: Grade 1 anterolisthesis C4 over C5 with degenerative disc changes as described above. No visible acute fracture or dislocation seen. No major change from previous exam 09/28/2023. There is no maxillofacial, nasal or mandibular fracture.
--- NOTE | ~2023-10-13 | CT_ITS ---
EXAMINATION: CT cervical spine without contrast. CT facial bones CLINICAL INDICATION: Fall,, EtOH. COMPARISON: CT cervical spine 09/28/2023. TECHNIQUE: 3 mm thin axial and reformatted 2 minutes thin sagittal and coronal images of cervical spine were obtained. Subsequently 3 mm thin axial and reformatted 1.5 and thin sagittal coronal images of facial bones were obtained. DLP 2002. This CT examination was performed using dose optimization technique as appropriate, variously including the following: Automated exposure control Adjustment of MA and/or KV according to patient size(this includes techniques or standardized protocols for targeted exams where dose is matched to indication/reason for exam; extremities or head. Use of iterative reconstruction techniques. FINDINGS: Cervical spine: There is straightening of cervical lordosis with grade 1 anterolisthesis C4 over C5. There is loss of C2-C3, C4-C5, C5-C6 and C6 S7 disc heights. No visible acute fracture, dislocation or subluxation seen. The craniovertebral junction and the C1-C2 alignment is normal. Facial bones: The paranasal sinuses are well-aerated with mild mucoperiosteal thickening left maxillary sinus. The bony sinus lincoln are intact. The nasal bones are intact. No fracture visualized. The bony orbits, bilateral TM joints are symmetrical and normal. The maxillofacial soft tissues are normal. CT/CT cervical spine wo IV con IMPRESSION: Grade 1 anterolisthesis C4 over C5 with degenerative disc changes as described above. No visible acute fracture or dislocation seen. No major change from previous exam 09/28/2023. There is no maxillofacial, nasal or mandibular fracture.
--- NOTE | ~2023-10-13 | CT_ITS ---
EXAMINATION: CT HEAD WITHOUT CONTRAST CLINICAL INFORMATION: 52-year-old female, fall, EtOH COMPARISON: 09/28/2023 TECHNIQUE: Contiguous axial imaging was performed from the skull base to vertex without intravenous administration of contrast. This CT examination was performed using dose optimization techniques as appropriate, variously including the following: *Automated exposure control *Adjustment of mA and/or kV according to patient size (this includes techniques or standardized protocols for targeted exams where dose is matched to indication/reason for exam; i.e. extremities or head) *Use of iterative reconstruction technique DLP: 793 mGy-cm FINDINGS: Examination is motion degraded. The ventricles and sulci are normal in size and configuration. No acute hemorrhage, mass effect or shift is evident. Peterson-white differentiation is maintained. In the posterior fossa, the brainstem, cerebellum and fourth ventricle image normally. The orbits and calvarium are intact. The paranasal sinuses and mastoid air cells are well pneumatized and clear. CT/CT head/brain wo IV con IMPRESSION: 1. Unremarkable noncontrast brain CT. No acute hemorrhage, mass effect or shift. No significant change since 09/28/2023
[2023-10-13 13:59] VITALS: BP 140/100; BP 160/90; PULSE 112; PULSE 98; RESP 18; TEMP 36.9; O2SAT 94; O2SAT 96; BMI 34.3
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
--- NOTE | 2023-10-13 16:29 | PC.NURSE ---
Patient unable to urine, bladder scan 931 ml in bladder, palm catheter to be placed per md
[2023-10-13 17:18] LABS: Appearance Urine Clear; Color Urine Yellow; Glucose Urine UA Negative (Negative); Leukocyte Esterase Urine Negative (Negative); Nitrite Urine Negative (Negative); PH 6.5 (5.0-9.0); Specific Gravity - Urine <= 1.005 (1.005-1.025); Urine Blood Negative (Negative); Urine Ketones Negative (Negative); Urine Protein Negative (Neg-Trace)
[2023-10-13 17:28] LABS: Amphetamine Screen Urine Not Detected (Not Detect); Barbiturates, Urine POSITIVE (Not Detect); Benzodiazepines Screen Urine Not Detected (Not Detect); Buprenorphine Scr Positive (Not Detect); Cannabinoid Screen Urine Not Detected (Not Detect); Cocaine Screen Urine Not Detected (Not Detect); Fentanyl, urine Not Detected (Not Detect); Methadone Screen, Urine Not Detected (Not Detect); Opiate Screen Urine Not Detected (Not Detect); Oxycodone Screen Urine Not Detected (Not Detect); Phencyclidine Screen Urine Not Detected (Not Detect)
[2023-10-13 17:29] LABS: Alanine Aminotransferase 82 U/L (0-31); Albumin Level 3.6 g/dL (3.5-5.0); Alkaline Phosphatase 374 U/L (39-117); Anion Gap 19 (12-20); Aspartate Amino Transferase 231 U/L (5-31); Bilirubin Total 0.6 mg/dL (0.0-1.0); Blood Urea Nitrogen 3 mg/dL (9-16); Calcium 8.4 mg/dL (8.4-10.2); Carbon Dioxide 24 mmol/L (22-29); Chloride 105 mmol/L (96-108); Estimated Glomerular Filt Rate > 60; Ethanol 325 mg/dL; Glucose Random 101 mg/dL (60-115); Potassium 4.2 mmol/L (3.3-5.1); Sodium 144 mmol/L (135-145); Total Protein 6.9 g/dL (6.5-8.0)
[2023-10-13 17:32] VITALS: BP 96/62; PULSE 97; RESP 18; TEMP 36.8; O2SAT 98
[2023-10-13 17:34] LABS: Acetaminophen LAB < 3 mcg/mL (<30); Salicylate < 5.0 mg/dL (15-30)
--- NOTE | 2023-10-13 18:42 | MHC.EDTECH ---
attempted to recollect blood specimen at 1820 pt refused because the needles hurt .
[2023-10-13 19:29] LABS: Basophils Absolute Auto 0.1 X10*3/uL (0.0-0.2); Basophils Percent Auto 1.9 % (0-2); Eosinophils Absolute Auto 0.1 X10*3/uL (0.0-0.4); Eosinophils Percent Auto 2.3 % (0-4); Hematocrit 28.9 % (37.0-47.0); Hemoglobin 9.5 g/dl (12.0-16.0); Imm Gran Abs Auto 0.01 X10*3/uL (0.00-0.03); Imm Gran Pct Auto 0.2 % (0.0-0.4); Lymphocytes Absolute Auto 0.9 X10*3/uL (1.2-4.9); Lymphocytes Percent Auto 19.7 % (20-40); Mean Corpuscular HGB Conc 32.9 g/dl (31.0-35.0); Mean Corpuscular Hemoglobin 29.3 pg (27.0-33.0); Mean Corpuscular Volume 89.2 fL (80.0-98.0); Mean Platelet Volume 8.8 fL (9.4-12.3); Monocytes Absolute Auto 0.4 X10*3/uL (0.1-1.2); Monocytes Percent Auto 8.9 % (2-11); Neutrophils Absolute Auto 3.2 x10*3/uL (2.0-8.3); Platelet Count 390 X10*3/uL (160-400); Red Blood Count 3.24 X10*6/uL (4.20-5.50); White Blood Count 4.7 X10*3/uL (4.8-10.8)
[2023-10-13 19:39] LABS: MANUAL DIFF FLAG NO
[2023-10-13 20:21] VITALS: BP 132/72; PULSE 72; RESP 22; TEMP 36.8; O2SAT 92
== END 2023-10-13 20:36 | disposition home or self-care (01) ==
PROVIDERS: Emergency Provider Emergency Medicine
DX: R33.9 Retention of urine, unspecified (principal); F10.929 Alcohol use, unspecified with intoxication, unspecified; Z79.899 Other long term (current) drug therapy
CPT/HCPCS: 36415; 51702; 70450; 70486; 72125; 80053; 80143; 80179; 80307; 81003; 85025; 99284

== ENCOUNTER 2023-11-04 12:51 | Outpatient (AMB) | payer BC, MEDICAID, SELFPAY ==
--- NOTE | 2023-11-04 13:02 | AM.OFFVISNUR ---
Vital Signs 11/04/23 13:19 BP 130/84 Blood Pressure Location Lt brachial Position Sitting Intake Visit Reasons: Sublocade Allergies No Known Allergies Allergy (Verified 10/13/23 14:02) Nursing Note Patient presents for sublocade injection. Current dose 300mg SC Q month. No issues with previous injection.? Reports mild withdrawal sx prior to next injection. She was given a bridge script but lost it so turned to alcohol to manage W/D sx until today's visit. T/W educated pt. re: harm reduction relating to alcohol intake. Last appt with provider06/05/23 (although pt was seen by provider during last inpt. stay in late September) Next appt with Provider should be late December..? Next injection due in 4 weeks Dose due 300 mg Office Meds Sublocade 300 mg/1.5 mL solution,extended release subcutaneous syringe Performing Provider: Yazmin Mckinnon CNP Performing Location: [facility] Administered by: Ally Ponce RN on 11/04/23 14:06 Dose Route Admin Location Dispensed Lot Number Expiration Date [facility] Resume Writer 300 mg subcut abd. LUQ 1.5 mL [id number] 01/04/25 [address]-4 [employer]. Comments: Pt tolerated injection well. No ill effects noted from last injection. Pt educated on when to call [facility] and given an ice pack for comfort. Pt to F/U in 4 weeks. Assessment & Plan Assessment & Plan Orders: Orders AMB Buprenorphine Injection - Patient Supplied Today F11.90 - Opioid use, unspecified, uncomplicated
[2023-11-04 13:19] VITALS: BP 130/84
== END 2023-11-04 13:29 | disposition home or self-care (01) ==
DX: F11.90 Opioid use, unspecified, uncomplicated (principal)

== ENCOUNTER → 2023-11-04 12:51 | Outpatient (BNVA) | payer BC, MEDICAID, SELFPAY | DX: F11.90 Opioid use, unspecified, uncomplicated (principal) | CPT/HCPCS: 96372; Q9992 ==

== ENCOUNTER 2023-11-06 05:20 | Emergency (ER) | payer BC, MEDICAID, SELFPAY ==
[2023-11-06 05:38] VITALS: BMI 33.9
[2023-11-06] MEDS: PHENobarbitaL 30 MG TABLET 60 MG PO (06:01)
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
[2023-11-06 07:48] VITALS: BP 125/78; PULSE 114; RESP 16; TEMP 37.4; O2SAT 96
== END 2023-11-06 07:49 | disposition home or self-care (01) ==
PROVIDERS: Emergency Provider Emergency Medicine
DX: F10.120 Alcohol abuse with intoxication, uncomplicated (principal); Y90.9 Presence of alcohol in blood, level not specified; I10 Essential (primary) hypertension; F11.20 Opioid dependence, uncomplicated; R29.6 Repeated falls; Z91.81 History of falling; Z87.891 Personal history of nicotine dependence
CPT/HCPCS: 99284

== ENCOUNTER 2023-11-27 05:47 | Inpatient (IN) | payer BC, MEDICAID, SELFPAY ==
[2023-11-27] VITALS (8 sets, daily range): BP systolic 97–162; BP diastolic 45–98; PULSE 65–92; RESP 14–24; TEMP 36.2–37.3; O2SAT 95–99; BMI 36.9
--- NOTE | 2023-11-27 | ECG_ITS ---
Test Reason : DRUG OVERDOSE Blood Pressure : / mmHG Vent. Rate : 081 BPM Atrial Rate : 081 BPM P-R Int : 132 ms QRS Dur : 086 ms QT Int : 396 ms P-R-T Axes : 011 -03 -31 degrees QTc Int : 460 ms Poor data quality, interpretation may be adversely affected Normal sinus rhythm Left ventricular hypertrophy with repolarization abnormality ( R in aVL ) Abnormal ECG When compared with ECG of 21-JUL-2023 22:33, Previous ECG has undetermined rhythm, needs review ST less depressed in Anterior leads T wave inversion less evident in Anterior leads Referred By: Generic ED Physician Electronically Signed By:RACHANA LOZA
--- NOTE | 2023-11-27 06:31 | MHC.EDTECH ---
pt changed over into [facility] gown, all personal belongings taken by security and placed into decon until Pt is released from hospital.
[2023-11-27 06:34] LABS: MANUAL DIFF FLAG NO
[2023-11-27 06:35] LABS: Basophils Percent Auto 1.6 % (0-2); Eosinophils Absolute Auto 0.1 X10*3/uL (0.0-0.4); Eosinophils Percent Auto 2.7 % (0-4); Hemoglobin 10.1 g/dl (12.0-16.0); Imm Gran Abs Auto 0.01 X10*3/uL (0.00-0.03); Imm Gran Pct Auto 0.4 % (0.0-0.4); Lymphocytes Absolute Auto 0.6 X10*3/uL (1.2-4.9); Mean Corpuscular HGB Conc 32.6 g/dl (31.0-35.0); Mean Platelet Volume 9.4 fL (9.4-12.3); Monocytes Absolute Auto 0.4 X10*3/uL (0.1-1.2); Monocytes Percent Auto 15.7 % (2-11); Neutrophils Absolute Auto 1.5 x10*3/uL (2.0-8.3); Neutrophils Percent Auto 57.6 % (45-73); Platelet Count 182 X10*3/uL (160-400); Red Blood Count 3.37 X10*6/uL (4.20-5.50); Red Cell Distribution Width 19.4 % (11.0-16.0); White Blood Count 2.6 X10*3/uL (4.8-10.8)
--- NOTE | 2023-11-27 06:38 | PC.NURSE ---
Pt JOSUE from home, Pt marlys, going into [employer], reports drinking 2 bottles of night quil in 36 hours. Pt reports being a daily ETOH user and no one would buy her any alcohol. Pt reports having a bottle of wine last night to help with withdraws but no improvement. Reprots going through alcohol withdraw. Pt reports hearing voices and seeing bugs ever since finishing night quil. Denies SI/HI. CIWA score 11. Poison prevention called. IV line placed. Labs and ECG ordered. Pt changed over to hospital gown, belongings sent to [facility]. Pt reports she is mostly wheelchair bound.
[2023-11-27 06:44] LABS: Lactic Acid 1.5 mmol/L (0.5-2.0)
[2023-11-27 06:50] LABS: Acetaminophen LAB < 3 mcg/mL (<30); Salicylate < 5.0 mg/dL (15-30)
[2023-11-27 06:52] LABS: Alanine Aminotransferase 38 U/L (0-31); Albumin Level 3.5 g/dL (3.5-5.0); Alkaline Phosphatase 252 U/L (39-117); Anion Gap 13 (12-20); Aspartate Amino Transferase 73 U/L (5-31); Bilirubin Total 0.9 mg/dL (0.0-1.0); Blood Urea Nitrogen 5 mg/dL (9-16); Calcium 8.8 mg/dL (8.4-10.2); Carbon Dioxide 33 mmol/L (22-29); Chloride 96 mmol/L (96-108); Estimated Glomerular Filt Rate > 60; Ethanol < 10 mg/dL; Glucose Random 108 mg/dL (60-115); Magnesium 1.5 mg/dL (1.6-2.6); Potassium 2.1 mmol/L (3.3-5.1); Sodium 140 mmol/L (135-145); Total Protein 6.5 g/dL (6.5-8.0)
[2023-11-27 06:56] LABS: Troponin-I High Sensitivity 5.7 ng/L (<3.5-17.0)
--- NOTE | 2023-11-27 06:57 | ED.GENADULT ---
HPI - General Adult General Chief complaint: General Medical Stated complaint: HALLUCINATIONS Time Seen by Provider: 11/27/23 06:44 Source: patient Mode of arrival: ambulatory Limitations: altered mental status History of Present Illness ED Provider: Pinky WOOTEN HPI narrative: This is a 53-year-old female history of alcohol use disorder, herpes, anxiety, depression presenting from home where she lives with her she is wheelchair-bound she is coming in status post binge drinking NyQuil, she drank 2 bottles, unknown exact quantity over the past 2 days, she reports that her is trying to help her stop drinking so he took away alcohol so she decided to drink NyQuil, last drank it thursday. Last drank alcohol lat night 1 bottle of wine since she ran out of [employer] Initially upon arrival she was hearing voices and seeing bugs everywhere and also was hyperverbal still is at this time reports a nurse just zoomed behing me . Is still hyperverbal. No SI or HI. Prior to obtaining an HPI nursing staff did obtain recommendations from poison control however I would like to speak to them myself. Denies chest pain, shortness of breath, nausea, vomiting, abdominal pain, blood in stool or vomit. Related Data Home Medications ?Medication ?Instructions ?Recorded ?Confirmed gabapentin 300 mg capsule 300 mg PO DAILY 04/28/23 09/23/23 multivitamin 1 tab PO DAILY 04/28/23 09/23/23 buprenorphine 300 mg/1.5 mL 300 mg subcut Q28D 09/23/23 09/23/23 solution,exten.rel.subcutaneous syringe (Sublocade) trazodone 50 mg tablet 50 mg PO BEDTIME 09/23/23 09/23/23 Previous Rx's ?Medication ?Instructions ?Recorded aspirin 81 mg tablet,delayed 81 mg PO DAILY #30 tabs 05/05/23 release disulfiram 250 mg tablet 250 mg PO DAILY #90 tabs 07/25/23 folic acid 1 mg tablet 1 mg PO DAILY #30 tabs 07/25/23 thiamine mononitrate (vit B1) 100 100 mg PO DAILY #90 tabs 07/25/23 mg tablet tamsulosin 0.4 mg capsule (Flomax) 0.4 mg PO DAILY #30 caps 10/13/23 buprenorphine 4 mg-naloxone 1 mg 1 film buccal Q24H #7 ea 10/28/23 sublingual film (Suboxone) duloxetine 60 mg capsule,delayed 60 mg PO DAILY #30 caps 11/24/23 release Allergies Allergy/AdvReac Type Severity Reaction Status Date / Time No Known Allergies Allergy Verified 11/27/23 05:59 Review of Systems Review of Systems: Yes all other systems are reviewed and are negative PMFSH Past Medical History Attestation statement: The following information was validated with the patient. Source: old records reviewed and nursing notes reviewed Medical History Alcohol withdrawal hallucinosis Falls frequently Pedal edema Cellulitis Alcohol intoxication Alcohol use disorder, severe, dependence Korsakoff syndrome Thrombocytopenia Alcohol withdrawal syndrome Abscess of axilla, right Rash Encounter for monitoring Suboxone maintenance therapy Hypertension Opioid use disorder Alcohol abuse Surgical History History of total knee arthroplasty History of gastric surgery Family History Family History Father Lung cancer Social History Social History Household Members: Significant Other Housing: House Do you presently have visiting nurse or other home services: No Unable to assess alcohol history related to: Unknown Alcohol intake: current Alcohol intake frequency: 3 or more drinks per day Alcohol type: beer and hard liquor Comment: pt turns off alarm on own Patient Tobacco Use Status: Former Tobacco user Tobacco use type: Cigarette Years Smoked: 2 Smoked in Last 30 Days: Yes Second Hand Smoke Exposure: No Use of substances other than those prescribed or required for medical reasons: No Advance Directives: No Advance Directives Information Provided: No service: No Current occupational status: employed Physical Exam ED Vital Signs: Vital Signs - 24 hr 11/27/23 05:56 Temperature 98.6 F Pulse Rate 86 Respiratory Rate 20 Blood Pressure 108/72 Pulse Oximetry 98 Oxygen Delivery Method Room Air BMI result Body Mass Index 36.9 vss Appearance: Alert.? Oriented to person & time, not place,or sitation .? Appears to be hallucinating and confused Head: Normocephalic, atraumatic, no step-offs or deformities. + tongue faciculations Eyes: Pupils equal, round and reactive to light.? CVS: Normal heart rate and rhythm.? Pulses normal.? Respiratory: No respiratory distress.? Breath sounds normal.? Abdomen: Soft and nontender.? Skin: Skin warm and dry.? Normal skin color.? Normal skin turgor.? Extremities: No lower extremity edema.? No calf ttp. Global weakness. + UE tremors b/l Back: No midline tenderness, no C-spine tenderness, full range of motion, no CVA tenderness bilaterally Neuro:Oriented to person & time, not place,or sitation .? No motor deficit.? No sensory deficit. CN 2-12 intact Course Reevaluation(s) Reevaluation #1: CBC with leukopenia that appears to be patient's baseline and a normocytic anemia again patient's baseline. Chemistry with low potassium IV and p.o. potassium ordered. Carbon dioxide elevated, nonspecific. Magnesium 1.5 will give IV Mag. Transaminases elevated in the 2-1 fashion likely secondary to alcohol intoxication. Troponin 5.7 will repeat in a few hours. Salicylates, acetaminophen negative. Time: 07:03 Reevaluation #2: Patients CIWA 14 will initiate phenobarbital at this time Did verify with with poison control no indicaiton for N- acetylcysteine Time: 07:22 Medications Administered Generic Name Dose Route Start Last Admin Trade Name Freq PRN Reason Stop Dose Admin Potassium Chloride 10 meq in 100 mls @ 100 mls/hr 11/27/23 07:00 11/27/23 07:55 Potassium Chloride/H20 IV 11/27/23 08:59 100 mls/hr Q1H LOURDES Administration Magnesium Sulfate 2 gm in 50 mls @ 25 mls/hr 11/27/23 07:03 11/27/23 07:55 Magnesium Sulfate/H2o IV 11/27/23 09:02 25 mls/hr ONCE ONE Administration Discontinued Medications Generic Name Dose Route Start Last Admin Trade Name Freq PRN Reason Stop Dose Admin Sodium Chloride 1,000 mls @ 999 mls/hr 11/27/23 07:00 11/27/23 07:23 Ns IV 11/27/23 08:00 999 mls/hr .Q1H1M LOURDES Administration Lorazepam 2 mg 11/27/23 06:56 11/27/23 07:22 Lorazepam 2 Mg/Ml Vial IVPUSH 11/27/23 06:57 2 mg ONCE ONE Administration Phenobarbital Sodium 315 mg 11/27/23 08:00 11/27/23 07:47 Phenobarbital Sodium 130 Mg/Ml Im Once IM 11/27/23 08:01 315 mg ONCE ONE Administration Protocol Potassium Chloride 40 meq 11/27/23 06:57 11/27/23 07:25 Potassium Chloride Packet 20 Meq Packet PO 11/27/23 06:58 40 meq ONCE ONE Administration Medical Decision Making Medical Decision Making [facility] Narrative: 0700 53-year-old female presents status post taking too much NyQuil over the past 2 days in attempts to stop drinking alcohol. Physical exam patient hyperverbal otherwise unremarkable. History and physical exam concerning for NyQuil overdose/acetaminophen toxicity vs alcohol w/ drawl. Will rule out liver injury. Will rule out metabolic derangements. Will also rule out polysubstance abuse. Plan labs, poison control Differential Diagnosis Differential Diagnoses: The differential diagnosis associated with the presentation includes History and physical exam concerning for NyQuil overdose/acetaminophen toxicity alcohol w/drawl. Will rule out liver injury. Will rule out metabolic derangements. Will also rule out polysubstance abuse. Admission/Observation Consideration of admission/observation: Escalation of care including admission/observation considered Possible Consult Healthcare Provider Management of the patient was discussed with: Developer Architect (Poison control ) Poison control recommended possible N-acetylcysteine however will track Tylenol level if negative x2 no true indication. Lab Data [facility] Lab Attestation statement: I reviewed the patient's lab results. 11/27/23 06:29 11/27/23 06:29 Labs: Lab Results 11/27/23 11/27/23 Range/Units 06:29 07:27 WBC 2.6 L (4.8-10.8) X10*3/uL RBC 3.37 L (4.20-5.50) X10*6/uL Hgb 10.1 L (12.0-16.0) g/dl Hct 31.0 L (37.0-47.0) % MCV 92.0 (80.0-98.0) fL MCH 30.0 (27.0-33.0) pg MCHC 32.6 (31.0-35.0) g/dl RDW 19.4 H (11.0-16.0) % Plt Count 182 D (160-400) X10*3/uL MPV 9.4 (9.4-12.3) fL Immature Gran % (Auto) 0.4 (0.0-0.4) % Neut % (Auto) 57.6 (45-73) % Lymph % (Auto) 22.0 (20-40) % [place] % (Auto) 15.7 H (2-11) % Eos % (Auto) 2.7 (0-4) % Baso % (Auto) 1.6 (0-2) % Lymph # (Auto) 0.6 L (1.2-4.9) X10*3/uL [place] # (Auto) 0.4 (0.1-1.2) X10*3/uL Eos # (Auto) 0.1 (0.0-0.4) X10*3/uL Baso # (Auto) 0.0 (0.0-0.2) X10*3/uL Abs Immat Gran (auto) 0.01 (0.00-0.03) X10*3/uL Absolute Neuts (auto) 1.5 L (2.0-8.3) x10*3/uL Absolute Nucleated RBC 0.000 (0.0-0.012) X10*3/uL Nucleated RBC % (auto) 0.0 (0.0-0.2) /100WBC Sodium 140 (135-145) mmol/L Potassium 2.1 L* D (3.3-5.1) mmol/L Chloride 96 (96-108) mmol/L Carbon Dioxide 33 H (22-29) mmol/L Anion Gap 13 (12-20) BUN 5 L (9-16) mg/dL Creatinine 0.56 (0.5-1.4) mg/dL Estim Creat Clear Calc 124.0 Estimated GFR > 60 Random Glucose 108 (60-115) mg/dL Lactic Acid 1.5 (0.5-2.0) mmol/L Calcium 8.8 (8.4-10.2) mg/dL Magnesium 1.5 L (1.6-2.6) mg/dL Total Bilirubin 0.9 (0.0-1.0) mg/dL AST 73 H (5-31) U/L ALT 38 H (0-31) U/L Alkaline Phosphatase 252 H (39-117) U/L Troponin I High Sens 5.7 D (<3.5-17.0) ng/L Total Protein 6.5 (6.5-8.0) g/dL Albumin 3.5 (3.5-5.0) g/dL Salicylates < 5.0 L < 5.0 L (15-30) mg/dL Acetaminophen < 3 < 3 (<30) mcg/mL Ethyl Alcohol < 10 mg/dL Independent Interpretation I performed an independent interpretation of an: EKG (Vent. Rate : 081 BPM Atrial Rate : 081 BPM P-R Int : 132 ms QRS Dur : 086 ms QT Int : 396 ms P-R-T Axes : 011 -03 -31 degrees QTc Int : 460 ms Normal sinus rhythm Left ventricular hypertrophy with repolarization abnormality ( R in aVL ) Abnormal ECG When compared with ) Independent Historian Clinical information obtained from an independent historian. History obtained from or confirmed by: EMS Critical Care Time Critical Care Time Critical Care Time: Yes Total Critical Care Time: 35 Attestation: I attest to this time spent taking care of the patient, obtaining history, physical, reviewing labs, imaging, speaking to my attending, specialist or hospitalist. Discharge Plan Discharge Clinical Impression: Alcohol withdrawal, Drug overdose Patient Disposition: Still a Patient Prescriptions: No Action buprenorphine-naloxone [Suboxone] 4-1 mg film 1 film buccal Q24H Qty: 7 0RF duloxetine 60 mg capsule,delayed release(DR/EC) 60 mg PO DAILY Qty: 30 3RF multivitamin Tablet 1 tab PO DAILY gabapentin 300 mg capsule 300 mg PO DAILY aspirin 81 mg Tablet,Delayed Release (Dr/Ec) 81 mg PO DAILY Qty: 30 0RF tamsulosin [Flomax] 0.4 mg capsule 0.4 mg PO DAILY Qty: 30 0RF disulfiram 250 mg tablet 250 mg PO DAILY Qty: 90 0RF folic acid 1 mg tablet 1 mg PO DAILY Qty: 30 3RF thiamine mononitrate (vit B1) 100 mg tablet 100 mg PO DAILY Qty: 90 3RF Sublocade 300 mg/1.5 mL solution, extended rel syringe 300 mg subcut Q28D trazodone 50 mg Tablet 50 mg PO BEDTIME Print Language: Croatian
[2023-11-27] MEDS: LORazepam 2 MG/ML VIAL IVPUSH (07:22)
[2023-11-27] MEDS: 0.9 % Sodium Chloride 1,000 ML 999 ML IV (07:23)
[2023-11-27] MEDS: Potassium Chloride Packet 20 MEQ PACKET 40 MEQ PO (07:25)
[2023-11-27] MEDS: PHENobarbitaL sodium 130 MG/ML IM ONCE 315 MG IM (07:47)
[2023-11-27 07:55] LABS: Acetaminophen LAB < 3 mcg/mL (<30); Salicylate < 5.0 mg/dL (15-30)
[2023-11-27] MEDS: Magnesium Sulfate/H2O 2 GM/50 ML PIGGYBACK IV (07:55)
[2023-11-27] MEDS: Potassium Chloride/H20 10 MEQ/100 ML PIGGYBACK 100 MEQ IV ×2 (07:55→09:08)
--- NOTE | 2023-11-27 07:55 | PC.NURSE ---
20G inserted to RAC. Tolerated well. Good blood return.
[2023-11-27 08:57] LABS: Phosphorus 2.2 mg/dL (2.7-4.5)
--- NOTE | 2023-11-27 09:10 | PHA.MEDREC ---
Pharmacy Consult ? Medication Reconciliation Pharmacy has completed the medication reconciliation. Spoke to patient to confirm med list. Patient was
--- NOTE | 2023-11-27 09:14 | PHA.MEDREC ---
Addendum entered by Pedro Ellington RPh 11/27/23 09:45: Med rec was reviewed by [facility]. Original Note: Pharmacy Consult ? Medication Reconciliation Pharmacy has completed the medication reconciliation. Spoke to patient to confirm med list. Patient seem to be AMS, calling out to the Dr Elliott and telling him she was still hallucinating. Patient was able to confirm her medication with a lot of redirection. Patient states she no longer takes Disuifiram 250 mg daily, Folic acid 1 mg daily, Tamsulosin 0.4 mg daily. Patient States she no longer takes Suboxione films because she is now on Sublocade 300 mg injection Q28 days, but I couldn't get and set date of her last dose. Per medical records (last Visits) her last dose was 11-04-23 at [facility].
[2023-11-27] MEDS: Potassium Chloride ER 20 MEQ TAB.ER.PRT 60 MEQ PO (09:24)
[2023-11-27] MEDS: Folic Acid 1 MG TABLET PO (09:25)
[2023-11-27] MEDS: Thiamine HCL 200 MG in 0.9 % Sodium Chloride 100 ML 204 MG IV ×2 (09:30→16:54)
--- NOTE | 2023-11-27 09:57 | P.HPHOSP_ITS ---
History of Present Illness Date of Service: 11/27/23 Attending physician on admission: Suzanne Ellitot Chief Complaint: alcohol withdrawal 53 y/o F with pmhx of alcohol use disorder, herpes, anxiety, depression presenting from home where she lives with her she is wheelchair-bound she is coming in status post binge drinking NyQuil, she drank 2 bottles, unknown exact quantity over the past 2 days, she reports that her is trying to help her stop drinking so he took away alcohol so she decided to drink NyQuil, last drank it thursday. Last drank alcohol last night 1 bottle of wine since she ran out of [employer]. Initially upon arrival she was hearing voices and seeing bugs everywhere and also was hyperverbal still is at this time reports a nurse just zoomed behing me . Is still hyperverbal. No SI or HI. Denies chest pain, shortness of breath, nausea, vomiting, abdominal pain, blood in stool or vomit. Ed discussed patient with Poison control -Did verify with with poison control no indicaiton for N- acetylcysteine. Denies any new complaint of chest pain or shortness of breath or abdominal pain or fever or chills or nausea or vomiting Denies any cough Denies any weakness or numbness. Review of Systems 2 Review of Systems: as above. Yes all other systems are reviewed and are negative [facility] Medical History Alcohol withdrawal hallucinosis Falls frequently Pedal edema Cellulitis Alcohol intoxication Alcohol use disorder, severe, dependence Korsakoff syndrome Thrombocytopenia Alcohol withdrawal syndrome Abscess of axilla, right Rash Encounter for monitoring Suboxone maintenance therapy Hypertension Opioid use disorder Alcohol abuse Family History Father Lung cancer Surgical History History of total knee arthroplasty History of gastric surgery Social History Household Members: Significant Other Housing: House Do you presently have visiting nurse or other home services: No Unable to assess alcohol history related to: Unknown Alcohol intake: current Alcohol intake frequency: 3 or more drinks per day Alcohol type: beer and hard liquor Comment: pt turns off alarm on own Patient Tobacco Use Status: Former Tobacco user Tobacco use type: Cigarette Years Smoked: 2 Smoked in Last 30 Days: Yes Second Hand Smoke Exposure: No Use of substances other than those prescribed or required for medical reasons: No Advance Directives: No Advance Directives Information Provided: No Nutrition Risks: No Nutritional Risk service: No Current occupational status: employed Meds Allergies Allergy/AdvReac Type Severity Reaction Status Date / Time No Known Allergies Allergy Verified 11/27/23 05:59 Active Medications: Current Medications Calcium Carbonate (Calcium Carbonate 750 Mg Tab.Chew) 750 mg PO Q4H PRN PRN Reason: Heartburn Folic Acid (Folic Acid 1 Mg Tablet) 1 mg PO DAILY [facility] Last Admin: 11/27/23 09:25 Dose: 1 mg Thiamine HCl 200 mg/ Sodium (Chloride) 102 mls @ 204 mls/hr IV Q8H [facility] Magnesium Hydroxide (Milk Of Magnesia 30 Ml Oral.Susp) 30 ml PO DAILY PRN PRN Reason: Constipation Melatonin (Melatonin 3 Mg Tablet) 6 mg PO BEDTIME PRN PRN Reason: Insomnia Pharmacy Consult (Consult Rx Etoh Phenob Im/Po) 1 each MISCELLANE ONCE PRN; Protocol PRN Reason: Consult order Phenobarbital (Phenobarbital 15 Mg Tablet) 45 mg PO BID [facility]; Protocol Stop: 11/29/23 09:01 Phenobarbital (Phenobarbital 30 Mg Tablet) 30 mg PO BID [facility]; Protocol Stop: 12/01/23 09:01 Phenobarbital (Phenobarbital 30 Mg Tablet) 30 mg PO Q24H [facility]; Protocol Stop: 12/02/23 21:01 Phenobarbital Sodium (Phenobarbital Sodium 130 Mg/Ml Vial Im Q3hx2) 235 mg IM Q3H [facility]; Protocol Stop: 11/27/23 14:01 Sodium Chloride (0.9 % Sodium Chloride Flush 3 Ml Syringe) 3 ml IVFLUSH QSHIFT [facility] Home Medications ?Medication ?Instructions ?Recorded ?Confirmed ?Last Taken ?Type gabapentin 300 mg capsule 300 mg PO DAILY 04/28/23 11/27/23 11/24/23 History multivitamin 1 tab PO DAILY 04/28/23 11/27/23 11/24/23 History buprenorphine 300 mg/1.5 mL 300 mg subcut Q28D 09/23/23 11/27/23 11/04/23 History solution,exten.rel.subcutaneous syringe (Sublocade) trazodone 50 mg tablet 50 mg PO BEDTIME 09/23/23 11/27/23 11/24/23 History Physical Exam 2 Vital Signs and Narrative: Vital Signs: Last Vital Signs Temp 98.6 F 11/27/23 05:56 Pulse 86 11/27/23 05:56 Resp 20 11/27/23 05:56 BP 108/72 11/27/23 05:56 Pulse Ox 98 11/27/23 05:56 O2 Del Method Room Air 11/27/23 05:56 BMI result Body Mass Index 36.9 Appearance: Alert.? Oriented X3.? Eyes: Pupils equal, round and reactive to light.? Sclera nonicteric.? ENT: Pharynx normal.? Moist mucous membranes. cvs: rrr, [id number] , no murmur res: clear to auscultation ,no rhonchii or wheezing abd: no rebound or guarding ,nt, bs present. ext pulses present , no cyanosis ,Gait well balanced well coordinated. neuro: axo3 , nonfocal. Results Labs 11/27/23 06:29 11/27/23 12:57 Labs: Laboratory Results - last 24 hr 11/27/23 11/27/23 06:29 07:27 MCV 92.0 MCH 30.0 MCHC 32.6 RDW 19.4 H Plt Count 182 D MPV 9.4 Immature Gran % (Auto) 0.4 Neut % (Auto) 57.6 Lymph % (Auto) 22.0 [place] % (Auto) 15.7 H Eos % (Auto) 2.7 Baso % (Auto) 1.6 Lymph # (Auto) 0.6 L [place] # (Auto) 0.4 Eos # (Auto) 0.1 Baso # (Auto) 0.0 Abs Immat Gran (auto) 0.01 Absolute Neuts (auto) 1.5 L Absolute Nucleated RBC 0.000 Nucleated RBC % (auto) 0.0 Anion Gap 13 Estim Creat Clear Calc 124.0 Estimated GFR > 60 Random Glucose 108 Lactic Acid 1.5 Calcium 8.8 Phosphorus 2.2 L Magnesium 1.5 L Total Bilirubin 0.9 AST 73 H ALT 38 H Alkaline Phosphatase 252 H Troponin I High Sens 5.7 D Total Protein 6.5 Albumin 3.5 Salicylates < 5.0 L < 5.0 L Acetaminophen < 3 < 3 Ethyl Alcohol < 10 Assessment and Plan (1) Drug overdose: Qualifiers: Encounter type: initial encounter Injury intent: undetermined intent Q ualified Code(s): T50.904A - Poisoning by unspecified drugs, medicaments and biological substances, undetermined, initial encounter Status: Acute (2) Alcohol withdrawal: Qualifiers: Complication of substance-induced condition: with delirium Qualified Code(s): F10.931 - Alcohol use, unspecified with withdrawal delirium Status: Acute Plan 53 y/o F with pmhx of alcohol use disorder, herpes, anxiety, depression : alcohol withdrawals ch elevated lft's in setting of alcohol use. wa addiction eval phenobarbital protocol,thiamine folic acid use of naquil ,also alcohol withdrwals -caused hallucination which is improving acute severe hypokalemia and hypomagnesemia: added iv and po replacements. moniter bmp closely anxiety -continue home meds Mood disorder: Continue duloxetine and trazodone, get Psych consult Opioid use disorder on Suboxone Normocytic anemia: Hemoglobin above transfusion threshold Thrombocytopenia: Chronic and stable Obesity: Counseled regarding diet dvt prohphylx : s/c lovenox Patient will benefit from 2 midnight stay: Considering alcohol withdrawal, multiple electrolytic abnormalities-need aggressive electrolyte resuscitation as well as monitoring CIWA scale, phenobarb protocol. Quality Stroke Does the patient have a stroke diagnosis?: No VTE Prior VTE?: No VTE Risk Level:: Medical - moderate - high VTE Device Contraindication: N/A - Device Ordered VTE Drug Contraindication: N/A - Med Ordered
[2023-11-27] MEDS: PHENobarbitaL sodium 130 MG/ML VIAL IM Q3Hx2 235 MG IM ×2 (10:40→15:24)
--- NOTE | 2023-11-27 11:35 | PC.NURSE ---
patient remains very confused and having AVH and VH. sitter in place as very restless and at risk from a safety point of view.
--- NOTE | 2023-11-27 12:10 | PC.NURSE ---
Patient's did call and report that the patient might of taken his BP meds but only could remember Amlodipine and not the other meds This RN did notify the Hospitalist via tiger and no further need for any intervention at this time
[2023-11-27 13:25] LABS: Anion Gap 13 (12-20); Blood Urea Nitrogen 6 mg/dL (9-16); Calcium 8.6 mg/dL (8.4-10.2); Carbon Dioxide 28 mmol/L (22-29); Chloride 102 mmol/L (96-108); Creatinine Clr Calc Pharmacy 136.2; Estimated Glomerular Filt Rate > 60; Glucose Random 101 mg/dL (60-115); Potassium 2.9 mmol/L (3.3-5.1); Sodium 140 mmol/L (135-145)
[2023-11-27] MEDS: 0.9 % Sodium Chloride Flush 3 ML SYRINGE IVFLUSH (16:55)
[2023-11-27] MEDS: Potassium Chloride ER 20 MEQ TAB.ER.PRT 40 MEQ PO (18:05)
[2023-11-27 18:14] LABS: Alanine Aminotransferase 35 U/L (0-31); Albumin Level 3.3 g/dL (3.5-5.0); Alkaline Phosphatase 225 U/L (39-117); Aspartate Amino Transferase 76 U/L (5-31); Bilirubin Direct 0.5 mg/dL (0.0-0.5); Bilirubin Total 0.9 mg/dL (0.0-1.0); Magnesium 1.9 mg/dL (1.6-2.6); Total Protein 6.1 g/dL (6.5-8.0)
--- NOTE | 2023-11-27 19:19 | PC.NURSE ---
1899 report received from Delmi CARLIN, assume care of pt at this time
--- NOTE | 2023-11-27 19:52 | MHC.EDTECH ---
This tech took over care of patient at 1900,hourly rounds and vitals completed,sitter at bedside for safety
--- NOTE | 2023-11-27 20:02 | P.PNADD_ITS ---
Subjective Subjective Date of Service: 11/27/23 Reason For Visit: Alchol withdrawal Interim History: Patient medically admitted with severe alcohol withdrawal Reportedly drank 2 bottles of NyQuil secondary to her not giving her any more liquor. Seen in ED 17, unable to obtain any meaningful information as patient was experiencing visual and tactile hallucinations. She had just received dose of phenobarb. Review of Systems Review of Systems Yes Unobtainable due to mental status Mental Status Exam Mental Status Exam Level of Consciousness: Disoriented and Restless Hallucinations: Visual and Tactile Judgement: Poor Diagnostics Vital Signs (24Hr): Vital Signs - 24 hr 11/27/23 05:56 11/27/23 11:47 11/27/23 17:10 Temperature 98.6 F 98.6 F 97.1 F Pulse Rate 86 80 76 Respiratory Rate 20 14 24 H Blood Pressure 108/72 121/89 150/45 H Pulse Oximetry 98 98 95 Oxygen Delivery Method Room Air Room Air Room Air 11/27/23 18:41 11/27/23 19:50 Temperature 98.2 F 99.1 F Pulse Rate 92 85 Respiratory Rate 17 18 Blood Pressure 100/51 L 97/71 Pulse Oximetry 97 98 Oxygen Delivery Method Room Air Room Air BMI result Body Mass Index 36.9 Labs 11/27/23 06:29 11/27/23 12:57 Labs: Laboratory Results - last 48 hr 11/27/23 11/27/23 11/27/23 06:29 07:27 12:57 WBC 2.6 L RBC 3.37 L Hgb 10.1 L Hct 31.0 L MCV 92.0 MCH 30.0 MCHC 32.6 RDW 19.4 H Plt Count 182 D MPV 9.4 Immature Gran % (Auto) 0.4 Neut % (Auto) 57.6 Lymph % (Auto) 22.0 [place] % (Auto) 15.7 H Eos % (Auto) 2.7 Baso % (Auto) 1.6 Lymph # (Auto) 0.6 L [place] # (Auto) 0.4 Eos # (Auto) 0.1 Baso # (Auto) 0.0 Abs Immat Gran (auto) 0.01 Absolute Neuts (auto) 1.5 L Absolute Nucleated RBC 0.000 Nucleated RBC % (auto) 0.0 Sodium 140 140 Potassium 2.1 L* D 2.9 L* D Chloride 96 102 Carbon Dioxide 33 H 28 Anion Gap 13 13 BUN 5 L 6 L Creatinine 0.56 0.51 Estim Creat Clear Calc 124.0 136.2 Estimated GFR > 60 > 60 Random Glucose 108 101 Lactic Acid 1.5 Calcium 8.8 8.6 Phosphorus 2.2 L Magnesium 1.5 L 1.9 Total Bilirubin 0.9 0.9 Direct Bilirubin 0.5 AST 73 H 76 H ALT 38 H 35 H Alkaline Phosphatase 252 H 225 H Troponin I High Sens 5.7 D Total Protein 6.5 6.1 L Albumin 3.5 3.3 L Salicylates < 5.0 L < 5.0 L Acetaminophen < 3 < 3 Ethyl Alcohol < 10 Medications Medications Current Medications Aspirin (Aspirin Enteric Coated 81 Mg Tablet.Dr) 81 mg PO DAILY [facility] Calcium Carbonate (Calcium Carbonate 750 Mg Tab.Chew) 750 mg PO Q4H PRN PRN Reason: Heartburn Duloxetine HCl (Duloxetine Hcl 60 Mg Capsule.Dr) 60 mg PO DAILY [facility] Enoxaparin Sodium (Enoxaparin Sodium 40 Mg/0.4 Ml Syringe) 40 mg SUBCUT Q24H [facility] Folic Acid (Folic Acid 1 Mg Tablet) 1 mg PO DAILY [facility] Last Admin: 11/27/23 09:25 Dose: 1 mg Gabapentin (Gabapentin 300 Mg Capsule) 300 mg PO DAILY [facility] Thiamine HCl 200 mg/ Sodium (Chloride) 102 mls @ 204 mls/hr IV Q8H [facility] Last Admin: 11/27/23 16:54 Dose: 204 mls/hr Magnesium Hydroxide (Milk Of Magnesia 30 Ml Oral.Susp) 30 ml PO DAILY PRN PRN Reason: Constipation Melatonin (Melatonin 3 Mg Tablet) 6 mg PO BEDTIME PRN PRN Reason: Insomnia Multivitamins/Vitamin C (Multivitamin Tablet) 1 tab PO DAILY [facility] Non-Formulary Medication (Buprenorphine [Sublocade]) 300 mg SUBCUT Q28D [facility] Pharmacy Consult (Consult Rx Etoh Phenob Im/Po) 1 each MISCELLANE ONCE [facility]; Protocol PRN Reason: Consult order Phenobarbital (Phenobarbital 15 Mg Tablet) 45 mg PO BID [facility]; Protocol Stop: 11/29/23 09:01 Phenobarbital (Phenobarbital 30 Mg Tablet) 30 mg PO BID [facility]; Protocol Stop: 12/01/23 09:01 Phenobarbital (Phenobarbital 30 Mg Tablet) 30 mg PO Q24H [facility]; Protocol Stop: 12/02/23 21:01 Sodium Chloride (0.9 % Sodium Chloride Flush 3 Ml Syringe) 3 ml IVFLUSH QSHIFT [facility] Last Admin: 11/27/23 16:55 Dose: 3 ml Trazodone HCl (Trazodone Hcl 50 Mg Tablet) 50 mg PO BEDTIME [facility] Allergies Allergies Allergy/AdvReac Type Severity Reaction Status Date / Time No Known Allergies Allergy Verified 11/27/23 05:59 Assessment & Plan Assessment & Plan (1) Alcohol use disorder, severe, dependence: Status: Acute Code(s): F10.20 - Alcohol dependence, uncomplicated Assessment and Plan: * significant concern related to patient's safety and ability to care for herself and poor judgement * T/W will call patient's and discuss possibility of petitioning for Section 35 commitment based on severity of recent admissions --including this admission where she drank NyQuil * will see patient in follow up on Thursday Total time managing care of this patient today ___15_ minutes.
--- NOTE | 2023-11-27 22:14 | MHC.EDTECH ---
Hourly rounds and vitals completed,BP is low RN is aware,sitter at bedside
[2023-11-27] MEDS: PHENobarbitaL 15 MG TABLET 45 MG PO (22:33)
[2023-11-27] MEDS: traZODone HCL 50 MG TABLET PO (22:34)
[2023-11-28] VITALS (10 sets, daily range): BP systolic 89–142; BP diastolic 48–95; PULSE 70–89; RESP 12–20; TEMP 36.6–37.3; O2SAT 96–99
[2023-11-28] MEDS: 0.9 % Sodium Chloride Flush 3 ML SYRINGE IVFLUSH ×3 (02:25→17:52)
[2023-11-28] MEDS: Thiamine HCL 200 MG in 0.9 % Sodium Chloride 100 ML 204 MG IV ×3 (02:26→17:51)
--- NOTE | 2023-11-28 03:46 | PC.NURSE ---
resting quiet on stretcher, resp with ease, no s/s of acute distress, sitter remains at bedside
--- NOTE | 2023-11-28 07:04 | PC.NURSE ---
report given to Elisabeth CARLIN
[2023-11-28] MEDS: Folic Acid 1 MG TABLET PO (08:41)
[2023-11-28] MEDS: Aspirin Enteric Coated 81 MG TABLET.DR PO (08:41)
[2023-11-28] MEDS: Gabapentin 300 MG CAPSULE PO (08:41)
[2023-11-28] MEDS: PHENobarbitaL 15 MG TABLET 45 MG PO ×2 (08:41→22:48)
[2023-11-28] MEDS: DULoxetine HCl 60 MG CAPSULE.DR PO (08:41)
[2023-11-28] MEDS: Multivitamin TABLET 1 TAB PO (08:41)
--- NOTE | 2023-11-28 09:20 | ECG_ITS ---
Test Reason : POISON CONTROL Blood Pressure : / mmHG Vent. Rate : 068 BPM Atrial Rate : 068 BPM P-R Int : 150 ms QRS Dur : 084 ms QT Int : 412 ms P-R-T Axes : 042 004 -05 degrees QTc Int : 438 ms Poor data quality, interpretation may be adversely affected Sinus rhythm with occasional Premature ventricular complexes Nonspecific ST abnormality Abnormal ECG When compared with ECG of 27-NOV-2023 06:04, No significant change was found Referred By: Suzanne Elliott Electronically Signed By:RACHANA LOZA
[2023-11-28 10:02] LABS: Alanine Aminotransferase 29 U/L (0-31); Albumin Level 2.9 g/dL (3.5-5.0); Alkaline Phosphatase 196 U/L (39-117); Anion Gap 8 (12-20); Aspartate Amino Transferase 65 U/L (5-31); Bilirubin Total 0.8 mg/dL (0.0-1.0); Blood Urea Nitrogen 6 mg/dL (9-16); Calcium 8.1 mg/dL (8.4-10.2); Carbon Dioxide 28 mmol/L (22-29); Chloride 104 mmol/L (96-108); Estimated Glomerular Filt Rate > 60; Glucose Random 94 mg/dL (60-115); Magnesium 1.6 mg/dL (1.6-2.6); Potassium 3.1 mmol/L (3.3-5.1); Sodium 137 mmol/L (135-145); Total Protein 5.2 g/dL (6.5-8.0)
[2023-11-28 10:04] LABS: Alanine Aminotransferase 28 U/L (0-31); Albumin Level 2.9 g/dL (3.5-5.0); Alkaline Phosphatase 198 U/L (39-117); Anion Gap 8 (12-20); Aspartate Amino Transferase 63 U/L (5-31); Bilirubin Total 0.7 mg/dL (0.0-1.0); Blood Urea Nitrogen 6 mg/dL (9-16); Calcium 8.1 mg/dL (8.4-10.2); Carbon Dioxide 28 mmol/L (22-29); Chloride 103 mmol/L (96-108); Estimated Glomerular Filt Rate > 60; Glucose Random 94 mg/dL (60-115); Magnesium 1.6 mg/dL (1.6-2.6); Potassium 3.1 mmol/L (3.3-5.1); Sodium 136 mmol/L (135-145); Total Protein 5.3 g/dL (6.5-8.0)
--- NOTE | 2023-11-28 10:41 | PC.NURSE ---
report recieved onpatient at 9a. pt has been sleeping since then with exception of labs and EKG which she tolerated without incident. NSR on monitor. sitter has been present since this RN arrival. skin pale, warm, dry. even resp. snacks/fluids available at bedside. awaits bed assignment.
--- NOTE | 2023-11-28 13:57 | PC.NURSE ---
pt has been sleeping since this rn arrival at 9am. NSR on monitor.
--- NOTE | 2023-11-28 14:18 | HO.PM.IMPN ---
Subjective Subjective Date of Service: 11/28/23 Interval History: alcohol withdrawals Review of Systems seems anxious ,tramulous mental status somewhat improving Physical Exam Vital Signs: Vital Signs: Last Vital Signs Temp 98.3 F 11/28/23 12:00 Pulse 70 11/28/23 12:00 Resp 16 11/28/23 12:00 BP 127/67 11/28/23 12:00 Pulse Ox 96 11/28/23 12:00 O2 Del Method Room Air 11/28/23 12:00 BMI result Body Mass Index 36.9 Appearance: Alert.? Oriented X3.? cvs: rrr, [id number] . res: clear to auscultation ,no rhonchii or wheezing abd: no rebound or guarding ,nt, bs present. ext pulses present , no cyanosis . neuro: axo3 , nonfocal. Objective Data Active Medications Aspirin (Aspirin Enteric Coated 81 Mg Tablet.) 81 mg PO DAILY [facility] Last Admin: 11/28/23 08:41 Dose: 81 mg Documented By: GRADY Calcium Carbonate (Calcium Carbonate 750 Mg Tab.Chew) 750 mg PO Q4H PRN PRN Reason: Heartburn Duloxetine HCl (Duloxetine Hcl 60 Mg Capsule.) 60 mg PO DAILY [facility] Last Admin: 11/28/23 08:41 Dose: 60 mg Documented By: GRADY Enoxaparin Sodium (Enoxaparin Sodium 40 Mg/0.4 Ml Syringe) 40 mg SUBCUT Q24H [facility] Last Admin: 11/27/23 22:34 Dose: Not Given Documented By: HAO Non-Admin Reason: Patient Refused Folic Acid (Folic Acid 1 Mg Tablet) 1 mg PO DAILY [facility] Last Admin: 11/28/23 08:41 Dose: 1 mg Documented By: GRADY Gabapentin (Gabapentin 300 Mg Capsule) 300 mg PO DAILY [facility] Last Admin: 11/28/23 08:41 Dose: 300 mg Documented By: GRADY Thiamine HCl 200 mg/ Sodium (Chloride) 102 mls @ 204 mls/hr IV Q8H [facility] Last Admin: 11/28/23 08:50 Dose: 204 mls/hr Documented By: GRADY Magnesium Hydroxide (Milk Of Magnesia 30 Ml Oral.Susp) 30 ml PO DAILY PRN PRN Reason: Constipation Melatonin (Melatonin 3 Mg Tablet) 6 mg PO BEDTIME PRN PRN Reason: Insomnia Multivitamins/Vitamin C (Multivitamin Tablet) 1 tab PO DAILY [facility] Last Admin: 11/28/23 08:41 Dose: 1 tab Documented By: GRADY Non-Formulary Medication (Buprenorphine [Sublocade]) 300 mg SUBCUT Q28D [facility] Pharmacy Consult (Consult Rx Etoh Phenob Im/Po) 1 each MISCELLANE ONCE [facility]; Protocol PRN Reason: Consult order Phenobarbital (Phenobarbital 15 Mg Tablet) 45 mg PO BID [facility]; Protocol Stop: 11/29/23 09:01 Last Admin: 11/28/23 08:41 Dose: 45 mg Documented By: GRADY Phenobarbital (Phenobarbital 30 Mg Tablet) 30 mg PO BID [facility]; Protocol Stop: 12/01/23 09:01 Phenobarbital (Phenobarbital 30 Mg Tablet) 30 mg PO Q24H [facility]; Protocol Stop: 12/02/23 21:01 Potassium Chloride (Potassium Chloride Er 20 Meq Tab.Er.Prt) 40 meq PO ONCE ONE Stop: 11/28/23 14:15 Sodium Chloride (0.9 % Sodium Chloride Flush 3 Ml Syringe) 3 ml IVFLUSH QSHIFT [facility] Last Admin: 11/28/23 08:42 Dose: 3 ml Documented By: GRADY Trazodone HCl (Trazodone Hcl 50 Mg Tablet) 50 mg PO BEDTIME [facility] Last Admin: 11/27/23 22:34 Dose: 50 mg Documented By: HAO Labs 11/27/23 06:29 11/28/23 09:26 Labs: Laboratory Results - last 24 hr 11/27/23 11/28/23 11/28/23 12:57 09:25 09:26 Anion Gap 8 L 8 L Estim Creat Clear Calc 151.0 151.0 Estimated GFR > 60 > 60 Random Glucose 94 94 Calcium 8.1 L 8.1 L Magnesium 1.9 1.6 1.6 Total Bilirubin 0.9 0.7 0.8 Direct Bilirubin 0.5 AST 76 H 63 H 65 H ALT 35 H 28 29 Alkaline Phosphatase 225 H 198 H 196 H Total Protein 6.1 L 5.3 L 5.2 L Albumin 3.3 L 2.9 L 2.9 L Assessment and Plan (1) Alcohol use disorder, severe, dependence: Status: Acute (2) Alcohol withdrawal: Status: Acute Plan 53 y/o F with pmhx of alcohol use disorder, herpes, anxiety, depression : alcohol withdrawals ch elevated lft's improving. ciwa improving addiction eval phenobarbital protocol,thiamine folic acid use of naquil ,also alcohol withdrwals -caused hallucination which is improving acute severe hypokalemia and hypomagnesemia: added iv and po replacements. moniter bmp closely anxiety -continue home meds Mood disorder: Continue duloxetine and trazodone, get Psych consult Opioid use disorder on Suboxone Normocytic anemia: Hemoglobin above transfusion threshold Thrombocytopenia: Chronic and stable Obesity: Counseled regarding diet dvt prohphylx : s/c lovenox ongoing hospitlisation need : Considering alcohol withdrawal, multiple electrolytic abnormalities-need aggressive electrolyte resuscitation as well as monitoring CIWA scale, phenobarb protocol. Quality Stroke Does the patient have a stroke diagnosis?: No VTE Prior VTE?: No VTE Risk Level:: Medical - moderate - high VTE Device Contraindication: N/A - Device Ordered VTE Drug Contraindication: N/A - Med Ordered
[2023-11-28] MEDS: Magnesium Sulfate/D5W 1 GM/100 ML PIGGYBACK IV (15:10)
[2023-11-28] MEDS: Potassium Chloride ER 20 MEQ TAB.ER.PRT 40 MEQ PO (15:10)
--- NOTE | 2023-11-28 15:15 | PC.NURSE ---
awake. eating. clear headed. following commands. axox3. aware of plan for transport to floor. nsr on monitr;
[2023-11-28] MEDS: Magnesium Oxide 400 MG TABLET PO (17:53)
[2023-11-28 18:15] LABS: Appearance Urine Cloudy; Color Urine Dark Yellow; Glucose Urine UA Negative (Negative); Leukocyte Esterase Urine Moderate (2+) (Negative); Nitrite Urine Negative (Negative); Specific Gravity - Urine 1.025 (1.005-1.025); UMIC TRIGGER UACC YES; Urine Blood Negative (Negative); Urine Ketones Trace mg/dL (Negative); Urine Protein 30 (1+) mg/dL (Neg-Trace)
[2023-11-28] MEDS: PHENobarbitaL sodium 130 MG/ML VIAL IM (18:19)
[2023-11-28 18:22] LABS: Bacteria Urine 2+ (None Seen); Hyaline Casts Urine 0-2 /LPF (0-2); WBC Urine 0-5 /HPF (0-5)
[2023-11-28 18:27] LABS: Amphetamine Screen Urine Not Detected (Not Detect); Barbiturates, Urine POSITIVE (Not Detect); Benzodiazepines Screen Urine Not Detected (Not Detect); Buprenorphine Scr Positive (Not Detect); Cannabinoid Screen Urine Not Detected (Not Detect); Cocaine Screen Urine Not Detected (Not Detect); Fentanyl, urine Not Detected (Not Detect); Methadone Screen, Urine Not Detected (Not Detect); Opiate Screen Urine Not Detected (Not Detect); Oxycodone Screen Urine Not Detected (Not Detect); Phencyclidine Screen Urine Not Detected (Not Detect)
[2023-11-28] MEDS: traZODone HCL 50 MG TABLET PO (20:26)
[2023-11-28] MEDS: Lactated Ringers 1,000 ML 999 ML IV (20:35)
[2023-11-29] VITALS (8 sets, daily range): BP systolic 104–120; BP diastolic 55–77; PULSE 67–86; RESP 17–20; TEMP 36.1–36.5; O2SAT 96–100
--- NOTE | 2023-11-29 | ECG_ITS ---
Test Reason : nyquill use Blood Pressure : / mmHG Vent. Rate : 065 BPM Atrial Rate : 065 BPM P-R Int : 148 ms QRS Dur : 080 ms QT Int : 394 ms P-R-T Axes : 042 009 000 degrees QTc Int : 409 ms Normal sinus rhythm Normal ECG When compared with ECG of 28-NOV-2023 09:36, Nonspecific ST abnormality is no longer Present Premature ventricular complexes are no longer Present Referred By: Suzanne Elliott Electronically Signed By:RACHANA LOZA
[2023-11-29] MEDS: 0.9 % Sodium Chloride Flush 3 ML SYRINGE IVFLUSH ×4 (01:10→21:09)
[2023-11-29] MEDS: Thiamine HCL 200 MG in 0.9 % Sodium Chloride 100 ML 204 MG IV ×2 (01:11→18:05)
[2023-11-29] MEDS: PHENobarbitaL 15 MG TABLET 45 MG PO (08:51)
[2023-11-29] MEDS: Folic Acid 1 MG TABLET PO (08:51)
[2023-11-29] MEDS: Aspirin Enteric Coated 81 MG TABLET.DR PO (08:51)
[2023-11-29] MEDS: Gabapentin 300 MG CAPSULE PO (08:51)
[2023-11-29] MEDS: Multivitamin TABLET 1 TAB PO (08:51)
[2023-11-29] MEDS: Magnesium Oxide 400 MG TABLET PO ×2 (08:51→18:05)
[2023-11-29] MEDS: DULoxetine HCl 60 MG CAPSULE.DR PO (08:51)
[2023-11-29 09:00] LABS: Alanine Aminotransferase 27 U/L (0-31); Albumin Level 2.8 g/dL (3.5-5.0); Alkaline Phosphatase 188 U/L (39-117); Anion Gap 12 (12-20); Aspartate Amino Transferase 56 U/L (5-31); Bilirubin Total 0.6 mg/dL (0.0-1.0); Blood Urea Nitrogen 6 mg/dL (9-16); Calcium 8.1 mg/dL (8.4-10.2); Carbon Dioxide 25 mmol/L (22-29); Chloride 103 mmol/L (96-108); Creatinine Clr Calc Pharmacy 131.1; Estimated Glomerular Filt Rate > 60; Glucose Random 137 mg/dL (60-115); Potassium 3.5 mmol/L (3.3-5.1); Sodium 136 mmol/L (135-145); Total Protein 5.3 g/dL (6.5-8.0)
[2023-11-29] MEDS: Gabapentin 100 MG CAPSULE 200 MG PO (10:14)
[2023-11-29] MEDS: Lidocaine 4 % Patch ADH..PATCH 1 PATCH TRANSDERMA (10:14)
[2023-11-29] MEDS: Thiamine HCL 200 MG in 0.9 % Sodium Chloride 100 ML IV (10:14)
--- NOTE | 2023-11-29 13:03 | P.PNIM_ITS ---
Subjective Subjective Date of Service: 11/29/23 Interval History: alcohol withdrawals Review of Systems no new c/o seems anxious ,tramulous denies any chest pain or sob Physical Exam 2 Vital Signs: Vital Signs: Last Vital Signs Temp 97.6 F 11/29/23 11:05 Pulse 86 11/29/23 11:05 Resp 18 11/29/23 11:05 BP 118/77 11/29/23 11:05 Pulse Ox 98 11/29/23 11:05 O2 Del Method Room Air 11/29/23 11:05 BMI result Body Mass Index 36.9 Appearance: Alert.? Oriented X3.? cvs: rrr, [id number] . res: clear to auscultation ,no rhonchii or wheezing abd: no rebound or guarding ,nt, bs present. ext pulses present , no cyanosis . neuro: axo3 , nonfocal. Objective Data Active Medications Aspirin (Aspirin Enteric Coated 81 Mg Tablet.) 81 mg PO DAILY [facility] Last Admin: 11/29/23 08:51 Dose: 81 mg Documented By: DEMARCO Calcium Carbonate (Calcium Carbonate 750 Mg Tab.Chew) 750 mg PO Q4H PRN PRN Reason: Heartburn Duloxetine HCl (Duloxetine Hcl 60 Mg Capsule.) 60 mg PO DAILY [facility] Last Admin: 11/29/23 08:51 Dose: 60 mg Documented By: DEMARCO Enoxaparin Sodium (Enoxaparin Sodium 40 Mg/0.4 Ml Syringe) 40 mg SUBCUT Q24H [facility] Last Admin: 11/28/23 18:18 Dose: Not Given Documented By: LUZ Non-Admin Reason: Patient Refused Folic Acid (Folic Acid 1 Mg Tablet) 1 mg PO DAILY [facility] Last Admin: 11/29/23 08:51 Dose: 1 mg Documented By: DEMARCO Gabapentin (Gabapentin 300 Mg Capsule) 300 mg PO DAILY [facility] Last Admin: 11/29/23 08:51 Dose: 300 mg Documented By: DEMARCO Thiamine HCl 200 mg/ Sodium (Chloride) 102 mls @ 204 mls/hr IV Q8H [facility] Last Infusion: 11/29/23 10:58 Dose: Infused Documented By: DEMARCO Lidocaine (Lidocaine 4 % Patch Adh..Patch) 1 patch TRANSDERMA DAILY [facility]; Protocol Last Admin: 11/29/23 10:14 Dose: 1 patch Documented By: DEMARCO Magnesium Hydroxide (Milk Of Magnesia 30 Ml Oral.Susp) 30 ml PO DAILY PRN PRN Reason: Constipation Magnesium Oxide (Magnesium Oxide 400 Mg Tablet) [facility] Last Admin: 11/29/23 08:51 Dose: 400 mg Documented By: DEMARCO Melatonin (Melatonin 3 Mg Tablet) 6 mg PO BEDTIME PRN PRN Reason: Insomnia Multivitamins/Vitamin C (Multivitamin Tablet) 1 tab PO DAILY [facility] Last Admin: 11/29/23 08:51 Dose: 1 tab Documented By: DEMARCO Non-Formulary Medication (Buprenorphine [Sublocade]) 300 mg SUBCUT Q28D [facility] Pharmacy Consult (Consult Rx Etoh Phenob Im/Po) 1 each MISCELLANE ONCE PRN; Protocol PRN Reason: Consult order Phenobarbital (Phenobarbital 30 Mg Tablet) 30 mg PO BID [facility]; Protocol Stop: 12/01/23 09:01 Phenobarbital (Phenobarbital 30 Mg Tablet) 30 mg PO Q24H [facility]; Protocol Stop: 12/02/23 21:01 Sodium Chloride (0.9 % Sodium Chloride Flush 3 Ml Syringe) [facility] Last Admin: 11/29/23 08:51 Dose: 3 ml Documented By: DEMARCO Trazodone HCl (Trazodone Hcl 50 Mg Tablet) 50 mg PO BEDTIME [facility] Last Admin: 11/28/23 20:26 Dose: 50 mg Documented By: ESTER Labs 11/27/23 06:29 11/29/23 08:06 Labs: Laboratory Results - last 24 hr 11/28/23 11/29/23 17:30 08:06 Anion Gap 12 Estim Creat Clear Calc 131.1 Estimated GFR > 60 Random Glucose 137 H Calcium 8.1 L Total Bilirubin 0.6 AST 56 H ALT 27 Alkaline Phosphatase 188 H Total Protein 5.3 L Albumin 2.8 L Urine Color Dark Yellow Urine Appearance Cloudy Urine pH 7.0 Ur Specific [place] 1.025 Urine Protein 30 (1+) H Urine Glucose (UA) Negative Urine Ketones Trace Urine Blood Negative Urine Nitrite Negative Ur Leukocyte Esterase Moderate (2+) H Urine RBC 3-5 H Urine WBC 0-5 Ur Squamous Epith Cells 11-20 Urine Bacteria 2+ Hyaline Casts 0-2 Urine Opiates Screen Not Detected Ur Buprenorphine Scrn Positive H Ur Oxycodone Screen Not Detected Urine Methadone Screen Not Detected Urine Fentanyl Screen Not Detected Ur Barbiturates Screen POSITIVE H Ur Phencyclidine Scrn Not Detected Ur Amphetamines Screen Not Detected U Benzodiazepines Scrn Not Detected Urine Cocaine Screen Not Detected U Marijuana (THC) Screen Not Detected Assessment and Plan (1) Alcohol withdrawal: Status: Acute Plan 53 y/o F with pmhx of alcohol use disorder, herpes, anxiety, depression : alcohol withdrawals ch elevated lft's improving. ciwa 8 addiction eval phenobarbital protocol,thiamine folic acid use of naquil ,also alcohol withdrwals -caused hallucination which is improving acute severe hypokalemia and hypomagnesemia: added iv and po replacements. moniter bmp closely anxiety -continue home meds Mood disorder: Continue duloxetine and trazodone, get Psych consult Opioid use disorder on Suboxone Normocytic anemia: Hemoglobin above transfusion threshold Thrombocytopenia: Chronic and stable Obesity: Counseled regarding diet dvt prohphylx : s/c lovenox ongoing hospitlisation need : Considering alcohol withdrawal, multiple electrolytic abnormalities-need aggressive electrolyte resuscitation as well as monitoring CIWA scale, phenobarb protocol. Quality Stroke Does the patient have a stroke diagnosis?: No VTE Prior VTE?: No VTE Risk Level:: Medical - moderate - high VTE Device Contraindication: N/A - Device Ordered VTE Drug Contraindication: N/A - Med Ordered
--- NOTE | 2023-11-29 14:16 | P.CNPS_ITS ---
History of Present Illness Chief Complaint: Alchol withdrawal HPI Past Psychiatric History: Denies any psychiatric admissions. Has been sectioned 35 in past and in residential tx for etoh. Denies history of psychosis, ras or violence. Had EMDR after finding her first from hanging PMFSH Medical History Alcohol use disorder, severe, dependence Alcohol withdrawal hallucinosis Falls frequently Pedal edema Cellulitis Alcohol intoxication Korsakoff syndrome Thrombocytopenia Alcohol withdrawal syndrome Abscess of axilla, right Rash Encounter for monitoring Suboxone maintenance therapy Hypertension Opioid use disorder Alcohol abuse Surgical History History of total knee arthroplasty History of gastric surgery Family History: Reports grandfather jumped out 3rd story window and killed himself. Brother with addiction issues Social History: see above Trauma History: As above witnessed first 's body after he hung himself. Denies childhood trauma Diagnostics Vital Signs (24Hr): Vital Signs - 24 hr 11/28/23 16:00 11/28/23 19:13 11/28/23 19:17 Temperature 98.1 F 98.0 F Pulse Rate 89 76 Respiratory Rate 20 20 Blood Pressure 142/95 H 89/53 L 89/48 L Pulse Oximetry 99 97 Oxygen Delivery Method Room Air Room Air 11/28/23 19:49 11/28/23 20:00 11/28/23 22:48 Temperature Pulse Rate 72 73 Respiratory Rate 20 Blood Pressure 90/62 124/71 Pulse Oximetry 97 99 Oxygen Delivery Method Room Air Room Air 11/29/23 00:00 11/29/23 00:00 11/29/23 03:55 Temperature 97.5 F 97.1 F Pulse Rate 72 79 Respiratory Rate 17 18 Blood Pressure 104/58 L 104/65 Pulse Oximetry 96 96 100 Oxygen Delivery Method Room Air Room Air Room Air 11/29/23 04:00 11/29/23 07:30 11/29/23 11:05 Temperature 97.5 F 97.6 F Pulse Rate 67 86 Respiratory Rate 18 18 Blood Pressure 115/67 118/77 Pulse Oximetry 100 99 98 Oxygen Delivery Method Room Air Room Air Room Air BMI result Body Mass Index 36.9 Labs 11/27/23 06:29 11/29/23 08:06 Labs: Laboratory Results - last 48 hr 11/27/23 11/28/23 11/28/23 12:57 09:25 09:26 Sodium 136 137 Potassium 3.1 L 3.1 L Chloride 103 104 Carbon Dioxide 28 28 Anion Gap 8 L 8 L BUN 6 L 6 L Creatinine 0.46 L 0.46 L Estim Creat Clear Calc 151.0 151.0 Estimated GFR > 60 > 60 Random Glucose 94 94 Calcium 8.1 L 8.1 L Magnesium 1.9 1.6 1.6 Total Bilirubin 0.9 0.7 0.8 Direct Bilirubin 0.5 AST 76 H 63 H 65 H ALT 35 H 28 29 Alkaline Phosphatase 225 H 198 H 196 H Total Protein 6.1 L 5.3 L 5.2 L Albumin 3.3 L 2.9 L 2.9 L Urine Color Urine Appearance Urine pH Ur Specific [place] Urine Protein Urine Glucose (UA) Urine Ketones Urine Blood Urine Nitrite Ur Leukocyte Esterase Urine RBC Urine WBC Ur Squamous Epith Cells Urine Bacteria Hyaline Casts Urine Opiates Screen Ur Buprenorphine Scrn Ur Oxycodone Screen Urine Methadone Screen Urine Fentanyl Screen Ur Barbiturates Screen Ur Phencyclidine Scrn Ur Amphetamines Screen U Benzodiazepines Scrn Urine Cocaine Screen U Marijuana (THC) Screen 11/28/23 11/29/23 17:30 08:06 Sodium 136 Potassium 3.5 Chloride 103 Carbon Dioxide 25 Anion Gap 12 BUN 6 L Creatinine 0.53 Estim Creat Clear Calc 131.1 Estimated GFR > 60 Random Glucose 137 H Calcium 8.1 L Magnesium Total Bilirubin 0.6 Direct Bilirubin AST 56 H ALT 27 Alkaline Phosphatase 188 H Total Protein 5.3 L Albumin 2.8 L Urine Color Dark Yellow Urine Appearance Cloudy Urine pH 7.0 Ur Specific [place] 1.025 Urine Protein 30 (1+) H Urine Glucose (UA) Negative Urine Ketones Trace Urine Blood Negative Urine Nitrite Negative Ur Leukocyte Esterase Moderate (2+) H Urine RBC 3-5 H Urine WBC 0-5 Ur Squamous Epith Cells 11-20 Urine Bacteria 2+ Hyaline Casts 0-2 Urine Opiates Screen Not Detected Ur Buprenorphine Scrn Positive H Ur Oxycodone Screen Not Detected Urine Methadone Screen Not Detected Urine Fentanyl Screen Not Detected Ur Barbiturates Screen POSITIVE H Ur Phencyclidine Scrn Not Detected Ur Amphetamines Screen Not Detected U Benzodiazepines Scrn Not Detected Urine Cocaine Screen Not Detected U Marijuana (THC) Screen Not Detected Medications Medications Current Medications Aspirin (Aspirin Enteric Coated 81 Mg Tablet.Dr) 81 mg PO DAILY [facility] Last Admin: 11/29/23 08:51 Dose: 81 mg Calcium Carbonate (Calcium Carbonate 750 Mg Tab.Chew) 750 mg PO Q4H PRN PRN Reason: Heartburn Duloxetine HCl (Duloxetine Hcl 60 Mg Capsule.Dr) 60 mg PO DAILY [facility] Last Admin: 11/29/23 08:51 Dose: 60 mg Enoxaparin Sodium (Enoxaparin Sodium 40 Mg/0.4 Ml Syringe) 40 mg SUBCUT Q24H [facility] Last Admin: 11/28/23 18:18 Dose: Not Given Folic Acid (Folic Acid 1 Mg Tablet) 1 mg PO DAILY [facility] Last Admin: 11/29/23 08:51 Dose: 1 mg Gabapentin (Gabapentin 300 Mg Capsule) 300 mg PO DAILY [facility] Last Admin: 11/29/23 08:51 Dose: 300 mg Thiamine HCl 200 mg/ Sodium (Chloride) 102 mls @ 204 mls/hr IV Q8H [facility] Last Infusion: 11/29/23 10:58 Dose: Infused Lidocaine (Lidocaine 4 % Patch Adh..Patch) 1 patch TRANSDERMA DAILY [facility]; Protocol Last Admin: 11/29/23 10:14 Dose: 1 patch Magnesium Hydroxide (Milk Of Magnesia 30 Ml Oral.Susp) 30 ml PO DAILY PRN PRN Reason: Constipation Magnesium Oxide (Magnesium Oxide 400 Mg Tablet) 400 mg PO BIDPC [facility] Last Admin: 11/29/23 08:51 Dose: 400 mg Melatonin (Melatonin 3 Mg Tablet) 6 mg PO BEDTIME PRN PRN Reason: Insomnia Multivitamins/Vitamin C (Multivitamin Tablet) 1 tab PO DAILY [facility] Last Admin: 11/29/23 08:51 Dose: 1 tab Non-Formulary Medication (Buprenorphine [Sublocade]) 300 mg SUBCUT Q28D [facility] Pharmacy Consult (Consult Rx Etoh Phenob Im/Po) 1 each MISCELLANE ONCE [facility]; Protocol PRN Reason: Consult order Phenobarbital (Phenobarbital 30 Mg Tablet) 30 mg PO BID [facility]; Protocol Stop: 12/01/23 09:01 Phenobarbital (Phenobarbital 30 Mg Tablet) 30 mg PO Q24H [facility]; Protocol Stop: 12/02/23 21:01 Sodium Chloride (0.9 % Sodium Chloride Flush 3 Ml Syringe) 3 ml IVFLUSH QSHIFT [facility] Last Admin: 11/29/23 08:51 Dose: 3 ml Trazodone HCl (Trazodone Hcl 50 Mg Tablet) 50 mg PO BEDTIME [facility] Last Admin: 11/28/23 20:26 Dose: 50 mg Allergies Allergies Allergy/AdvReac Type Severity Reaction Status Date / Time No Known Allergies Allergy Verified 11/27/23 05:59 Assessment & Plan Total time managing care of this patient today ____ minutes.
--- NOTE | 2023-11-29 15:54 | PC.NURSE ---
poison control recommendations: repeat EKG, supplement magnesium and potassium
--- NOTE | 2023-11-29 15:54 | MHC.CM.PN ---
PT LIVES WITH HER AND IS INDEPENDENT AT BASELINE SHE HAS A CANE AND A WALKER BUT ONLY USES THEM WHEN UNDER THE INFLUENCE HCP ON FILE PCP: BIANCA HERNANDEZ DCP: HOME VIA PRIVATE TRANSPORT
[2023-11-29] MEDS: Potassium Chloride ER 20 MEQ TAB.ER.PRT 40 MEQ PO (16:01)
[2023-11-29] MEDS: Magnesium Sulfate/H2O 2 GM/50 ML PIGGYBACK IV (16:01)
[2023-11-29 17:59] LABS: Alanine Aminotransferase 27 U/L (0-31); Albumin Level 3.1 g/dL (3.5-5.0); Alkaline Phosphatase 200 U/L (39-117); Anion Gap 15 (12-20); Aspartate Amino Transferase 54 U/L (5-31); Bilirubin Total 0.6 mg/dL (0.0-1.0); Blood Urea Nitrogen 8 mg/dL (9-16); Calcium 8.4 mg/dL (8.4-10.2); Carbon Dioxide 24 mmol/L (22-29); Chloride 102 mmol/L (96-108); Creatinine Clr Calc Pharmacy 131.1; Estimated Glomerular Filt Rate > 60; Glucose Random 157 mg/dL (60-115); Sodium 136 mmol/L (135-145); Total Protein 5.8 g/dL (6.5-8.0)
--- NOTE | 2023-11-29 18:37 | PC.NURSE ---
EKG results and CMP results reported to poison control, there is no more recommendations from their service ,
[2023-11-29] MEDS: traZODone HCL 50 MG TABLET PO (21:08)
[2023-11-29] MEDS: PHENobarbitaL 30 MG TABLET PO (21:09)
[2023-11-30] MEDS: PHENobarbitaL 30 MG TABLET 60 MG PO (00:03)
[2023-11-30] MEDS: Thiamine HCL 200 MG in 0.9 % Sodium Chloride 100 ML 204 MG IV ×2 (00:04→10:27)
[2023-11-30 03:22] VITALS: BP 98/52; PULSE 75; RESP 20; TEMP 36.3; O2SAT 96
[2023-11-30 07:42] VITALS: BP 116/82; PULSE 72; RESP 17; TEMP 36.2; O2SAT 99
[2023-11-30] MEDS: DULoxetine HCl 60 MG CAPSULE.DR PO (07:43)
[2023-11-30] MEDS: 0.9 % Sodium Chloride Flush 3 ML SYRINGE IVFLUSH ×3 (07:44→20:59)
[2023-11-30] MEDS: PHENobarbitaL 30 MG TABLET PO ×2 (07:44→20:49)
[2023-11-30] MEDS: Lidocaine 4 % Patch ADH..PATCH 1 PATCH TRANSDERMA (07:44)
[2023-11-30] MEDS: Magnesium Oxide 400 MG TABLET PO ×2 (07:44→17:34)
[2023-11-30] MEDS: Aspirin Enteric Coated 81 MG TABLET.DR PO (07:44)
[2023-11-30] MEDS: Folic Acid 1 MG TABLET PO (07:44)
[2023-11-30] MEDS: Gabapentin 300 MG CAPSULE PO (07:44)
[2023-11-30] MEDS: Multivitamin TABLET 1 TAB PO (07:44)
[2023-11-30] MEDS: Milk of Magnesia 30 ML ORAL.SUSP PO (07:58)
[2023-11-30] MEDS: PHENobarbitaL sodium 130 MG/ML VIAL IM (10:52)
[2023-11-30 11:59] VITALS: BP 102/69; PULSE 60; RESP 19; TEMP 36.7; O2SAT 97
--- NOTE | 2023-11-30 13:55 | MHC.RECOVRN ---
Met with pt in 477 to follow up and provide support. Pt sitting in bed, awake, alert, easily engages in conversation, eating lunch. Pt reports alcohol use has decreased over the past 2 weeks, has been drinking approx 1 pint daily and a little more on the weekends. Pt reports she has been wanting inpatient AUD treatment and came to the hospital with 2 bags packed in preparation for going to treatment. Pt is interested in [facility] as she is familiar with the facility and staff. Pt also hoping to receive Sublocade prior to transfer to [facility]. Denies other questions or concerns. Discussed with Yazmin Mckinnon APRN.
--- NOTE | 2023-11-30 14:03 | MHC.RECOVRN ---
AUDIT-C Brief Intervention Pt had positive screen for unhealthy alcohol use on admission, subsequently met with t/w to discuss alcohol use and recovery supports/options. Pt voices concern regarding alcohol use and is aware that drinking at unhealthy levels is known to increase risk of alcohol related health problems. Pt reports 1 pint daily x 2 weeks, had been drinking more than 1 pint prior to 2 weeks ago. Pt expresses how alcohol use has impacted health, including negative impact on overall physical wellbeing and mobility. Discussed risk reduction strategies including drinking below the recommended limit. Provided pt with written resources including information on inpatient and outpatient treatment, BRIJESH, harm reduction, and recovery coaching. Pt plans to seek admission at [facility]. Pt provided with t/w contact information if questions or concerns arise. Denies other questions or concerns at this time.
--- NOTE | 2023-11-30 14:31 | MHC.CM.PN ---
Per rounds, pt is not medically cleared for DC, she needs continued treatment for alcohol withdrawal. CM to follow for DC needs.
--- NOTE | 2023-11-30 15:29 | P.EN_ITS ---
Event Note Date of Service: 11/30/23 Event Note: Addiction Note T/W spoke with patient's regarding ongoing alcohol use and ongoing concern for safety and ability to care for herself John, verbalizing concern for patient and inability to care for her. He reports that she is incontinent and falls frequently. She has been having alcohol delivered to the house. He reports that he has petitioned for Section 35 commitment in the past and would be willing to do it again if she was not agreeable to treatment. life insurance underwriter met with patient who reports that she wished to be admitted to ATS facility in [place]. She stated that she would like to be admitted straight from hospital. Plan: -life insurance underwriter placed referral to [facility] -patient also due for Sublocade later this week, determining if they will administer it there or if she can have it before she leaves [facility] -Section 35 will NOT be persued as patient is agreeable to treatment admission Time Spent With Patient Time: Total time managing care of this patient today ____ minutes.
[2023-11-30 15:43] VITALS: BP 105/51; PULSE 79; RESP 20; TEMP 36.6; O2SAT 100
--- NOTE | 2023-11-30 15:54 | P.PNIM_ITS ---
Subjective Subjective Date of Service: 11/30/23 Interval History: alcohol withdrawals Review of Systems still anxious ,tremers no fever or chills no new c/o Physical Exam 2 Vital Signs: Vital Signs: Last Vital Signs Temp 97.8 F 11/30/23 15:43 Pulse 79 11/30/23 15:43 Resp 20 11/30/23 15:43 BP 105/51 L 11/30/23 15:43 Pulse Ox 100 11/30/23 15:43 O2 Del Method Room Air 11/30/23 15:43 BMI result Body Mass Index 36.9 Appearance: Alert.? Oriented X3.? cvs: rrr, [id number] . res: clear to auscultation ,no rhonchii or wheezing abd: no rebound or guarding ,nt, bs present. ext pulses present , no cyanosis . neuro: axo3 , nonfocal. Objective Data Active Medications Aspirin (Aspirin Enteric Coated 81 Mg Tablet.) 81 mg PO DAILY [facility] Last Admin: 11/30/23 07:44 Dose: 81 mg Documented By: BRENDAN Calcium Carbonate (Calcium Carbonate 750 Mg Tab.Chew) 750 mg PO Q4H PRN PRN Reason: Heartburn Duloxetine HCl (Duloxetine Hcl 60 Mg Capsule.) 60 mg PO DAILY [facility] Last Admin: 11/30/23 07:43 Dose: 60 mg Documented By: BRENDAN Enoxaparin Sodium (Enoxaparin Sodium 40 Mg/0.4 Ml Syringe) 40 mg SUBCUT Q24H [facility] Last Admin: 11/29/23 18:09 Dose: Not Given Documented By: DEMARCO Non-Admin Reason: Patient Refused Folic Acid (Folic Acid 1 Mg Tablet) 1 mg PO DAILY [facility] Last Admin: 11/30/23 07:44 Dose: 1 mg Documented By: BRENDAN Gabapentin (Gabapentin 300 Mg Capsule) 300 mg PO DAILY [facility] Last Admin: 11/30/23 07:44 Dose: 300 mg Documented By: BRENDAN Thiamine HCl 200 mg/ Sodium (Chloride) 102 mls @ 204 mls/hr IV Q8H [facility] Last Infusion: 11/30/23 10:57 Dose: Infused Documented By: BRENDAN Lidocaine (Lidocaine 4 % Patch Adh..Patch) 1 patch TRANSDERMA DAILY [facility]; Protocol Last Admin: 11/30/23 07:44 Dose: 1 patch Documented By: BRENDAN Lidocaine (Lidocaine 4 % Patch Adh..Patch) 1 patch TRANSDERMA DAILY [facility]; Protocol Magnesium Hydroxide (Milk Of Magnesia 30 Ml Oral.Susp) 30 ml PO DAILY PRN PRN Reason: Constipation Last Admin: 11/30/23 07:58 Dose: 30 ml Documented By: BRENDAN Magnesium Oxide (Magnesium Oxide 400 Mg Tablet) [facility] Last Admin: 11/30/23 07:44 Dose: 400 mg Documented By: BRENDAN Melatonin (Melatonin 3 Mg Tablet) 6 mg PO BEDTIME PRN PRN Reason: Insomnia Multivitamins/Vitamin C (Multivitamin Tablet) 1 tab PO DAILY [facility] Last Admin: 11/30/23 07:44 Dose: 1 tab Documented By: BRENDAN Non-Formulary Medication (Buprenorphine [Sublocade]) 300 mg SUBCUT Q28D [facility] Omeprazole (Omeprazole 20 Mg Capsule.Dr) 20 mg PO BID@0630,1630 [facility] Pharmacy Consult (Consult Rx Etoh Phenob Im/Po) 1 each MISCELLANE ONCE [facility]; Protocol PRN Reason: Consult order Phenobarbital (Phenobarbital 30 Mg Tablet) 30 mg PO BID [facility]; Protocol Stop: 12/01/23 09:01 Last Admin: 11/30/23 07:44 Dose: 30 mg Documented By: BRENDAN Phenobarbital (Phenobarbital 30 Mg Tablet) 30 mg PO Q24H [facility]; Protocol Stop: 12/02/23 21:01 Sodium Chloride (0.9 % Sodium Chloride Flush 3 Ml Syringe) [facility] Last Admin: 11/30/23 07:44 Dose: 3 ml Documented By: BRENDAN Trazodone HCl (Trazodone Hcl 50 Mg Tablet) 50 mg PO BEDTIME [facility] Last Admin: 11/29/23 21:08 Dose: 50 mg Documented By: MAGALY Labs 11/27/23 06:29 11/29/23 17:04 Labs: Laboratory Results - last 24 hr 11/29/23 17:04 Anion Gap 15 Estim Creat Clear Calc 131.1 Estimated GFR > 60 Random Glucose 157 H Calcium 8.4 Total Bilirubin 0.6 AST 54 H ALT 27 Alkaline Phosphatase 200 H Total Protein 5.8 L Albumin 3.1 L Assessment and Plan (1) Alcohol withdrawal: Status: Acute Plan 53 y/o F with pmhx of alcohol use disorder, herpes, anxiety, depression : alcohol withdrawals ch elevated lft's improving. ciwa 5 addiction eval phenobarbital protocol,added additional pheno 130mg im,thiamine folic acid use of naquil ,also alcohol withdrwals -caused hallucination which is improved cmp/ekg pablo , no further recomendations per poision control. acute severe hypokalemia and hypomagnesemia: added iv and po replacements. moniter bmp closely anxiety -continue home meds Mood disorder: Continue duloxetine and trazodone, get Psych consult Opioid use disorder on Suboxone Normocytic anemia: Hemoglobin above transfusion threshold Thrombocytopenia: Chronic and stable Obesity: Counseled regarding diet dvt prohphylx : s/c lovenox ongoing hospitlisation need : Considering alcohol withdrawal, multiple electrolytic abnormalities-need aggressive electrolyte resuscitation as well as monitoring CIWA scale, phenobarb protocol. Quality Stroke Does the patient have a stroke diagnosis?: No VTE Prior VTE?: No VTE Risk Level:: Medical - moderate - high VTE Device Contraindication: N/A - Device Ordered VTE Drug Contraindication: N/A - Med Ordered
[2023-11-30] MEDS: Omeprazole 20 MG CAPSULE.DR PO (16:08)
[2023-11-30 16:24] LABS: Magnesium 2.1 mg/dL (1.6-2.6)
[2023-11-30] MEDS: Thiamine HCL 200 MG in 0.9 % Sodium Chloride 100 ML 102 MG IV (17:36)
[2023-11-30 20:00] VITALS: BP 111/60; PULSE 73; RESP 20; TEMP 36.3; O2SAT 98
[2023-11-30] MEDS: traZODone HCL 50 MG TABLET PO (20:49)
[2023-11-30 23:48] VITALS: BP 95/51; PULSE 70; RESP 16; TEMP 36.9; O2SAT 96
[2023-12-01] MEDS: Thiamine HCL 200 MG in 0.9 % Sodium Chloride 100 ML 102 MG IV ×2 (00:15→09:54)
[2023-12-01 04:00] VITALS: BP 123/72; PULSE 72; RESP 20; TEMP 36.7; O2SAT 97
[2023-12-01] MEDS: Omeprazole 20 MG CAPSULE.DR PO ×2 (05:25→18:11)
[2023-12-01 07:57] VITALS: BP 141/67; PULSE 72; RESP 18; TEMP 36.9; O2SAT 100
[2023-12-01] MEDS: Gabapentin 300 MG CAPSULE PO (09:33)
[2023-12-01] MEDS: Multivitamin TABLET 1 TAB PO (09:33)
[2023-12-01] MEDS: DULoxetine HCl 60 MG CAPSULE.DR PO (09:33)
[2023-12-01] MEDS: PHENobarbitaL 30 MG TABLET PO ×2 (09:33→20:37)
[2023-12-01] MEDS: Magnesium Oxide 400 MG TABLET PO ×2 (09:33→18:10)
[2023-12-01] MEDS: Folic Acid 1 MG TABLET PO (09:34)
[2023-12-01] MEDS: Aspirin Enteric Coated 81 MG TABLET.DR PO (09:34)
[2023-12-01] MEDS: 0.9 % Sodium Chloride Flush 3 ML SYRINGE IVFLUSH ×3 (09:35→20:38)
--- NOTE | 2023-12-01 10:38 | MHC.RECOVRN ---
Pt to be transferring to [facility] tomorrow (12/02/23). [facility] will be picking up and transporting pt at 11 AM. [facility] to call the refinery operator reforming unit when they arrive to the hospital. Provider, LEESA, and RN, aware.
[2023-12-01] MEDS: PHENobarbitaL sodium 130 MG/ML VIAL 65 MG IM (10:40)
[2023-12-01 11:53] VITALS: BP 139/69; PULSE 71; RESP 18; TEMP 36.9; O2SAT 99
--- NOTE | 2023-12-01 12:53 | HO.PM.IMPN ---
Subjective Subjective Date of Service: 12/01/23 Interval History: alcohol withdrawal Review of Systems still anxious /tremers no fevers Physical Exam Vital Signs: Vital Signs: Last Vital Signs Temp 98.4 F 12/01/23 11:53 Pulse 71 12/01/23 11:53 Resp 18 12/01/23 11:53 BP 139/69 12/01/23 11:53 Pulse Ox 99 12/01/23 11:53 O2 Del Method Room Air 12/01/23 11:53 BMI result Body Mass Index 36.9 Appearance: Alert.? Oriented X3.? cvs: rrr, [id number] . res: clear to auscultation ,no rhonchii or wheezing abd: no rebound or guarding ,nt, bs present. ext pulses present , no cyanosis . neuro: axo3 , nonfocal. Objective Data Active Medications Aspirin (Aspirin Enteric Coated 81 Mg Tablet.) 81 mg PO DAILY [facility] Last Admin: 12/01/23 09:34 Dose: 81 mg Documented By: MARY Calcium Carbonate (Calcium Carbonate 750 Mg Tab.Chew) 750 mg PO Q4H PRN PRN Reason: Heartburn Duloxetine HCl (Duloxetine Hcl 60 Mg Capsule.) 60 mg PO DAILY [facility] Last Admin: 12/01/23 09:33 Dose: 60 mg Documented By: MARY Enoxaparin Sodium (Enoxaparin Sodium 40 Mg/0.4 Ml Syringe) 40 mg SUBCUT Q24H [facility] Last Admin: 11/30/23 17:28 Dose: Not Given Documented By: BRENDAN Non-Admin Reason: Patient Refused Folic Acid (Folic Acid 1 Mg Tablet) 1 mg PO DAILY [facility] Last Admin: 12/01/23 09:34 Dose: 1 mg Documented By: MARY Gabapentin (Gabapentin 300 Mg Capsule) 300 mg PO DAILY [facility] Last Admin: 12/01/23 09:33 Dose: 300 mg Documented By: MARY Thiamine HCl 200 mg/ Sodium (Chloride) 102 mls @ 204 mls/hr IV Q8H [facility] Last Infusion: 12/01/23 10:23 Dose: Infused Documented By: MARY Lidocaine (Lidocaine 4 % Patch Adh..Patch) 1 patch TRANSDERMA DAILY [facility]; Protocol Last Admin: 12/01/23 09:34 Dose: 1 patch Documented By: MARY Lidocaine (Lidocaine 4 % Patch Adh..Patch) 1 patch TRANSDERMA DAILY [facility]; Protocol Last Admin: 12/01/23 09:34 Dose: 1 patch Documented By: MARY Magnesium Hydroxide (Milk Of Magnesia 30 Ml Oral.Susp) 30 ml PO DAILY PRN PRN Reason: Constipation Last Admin: 11/30/23 07:58 Dose: 30 ml Documented By: BRENDAN Magnesium Oxide (Magnesium Oxide 400 Mg Tablet) 400 mg PO BIDPC [facility] Last Admin: 12/01/23 09:33 Dose: 400 mg Documented By: MARY Melatonin (Melatonin 3 Mg Tablet) 6 mg PO BEDTIME PRN PRN Reason: Insomnia Multivitamins/Vitamin C (Multivitamin Tablet) 1 tab PO DAILY [facility] Last Admin: 12/01/23 09:33 Dose: 1 tab Documented By: MARY Non-Formulary Medication (Buprenorphine [Sublocade]) 300 mg SUBCUT Q28D [facility] Omeprazole (Omeprazole 20 Mg Capsule.) 20 mg PO BID@0630,1630 [facility] Last Admin: 12/01/23 05:25 Dose: 20 mg Documented By: MICHAEL Pharmacy Consult (Consult Rx Etoh Phenob Im/Po) 1 each MISCELLANE ONCE PRN; Protocol PRN Reason: Consult order Phenobarbital (Phenobarbital 30 Mg Tablet) 30 mg PO Q24H [facility]; Protocol Stop: 12/02/23 21:01 Sodium Chloride (0.9 % Sodium Chloride Flush 3 Ml Syringe) 3 ml IVFLUSH QSHIFT [facility] Last Admin: 12/01/23 09:35 Dose: 3 ml Documented By: MARY Trazodone HCl (Trazodone Hcl 50 Mg Tablet) 50 mg PO BEDTIME [facility] Last Admin: 11/30/23 20:49 Dose: 50 mg Documented By: MICHAEL Labs 11/27/23 06:29 11/29/23 17:04 Labs: Laboratory Results - last 24 hr 11/29/23 17:04 Magnesium 2.1 Assessment and Plan (1) Alcohol withdrawal: Status: Acute Assessment and Plan: 53 y/o F with pmhx of alcohol use disorder, herpes, anxiety, depression : alcohol withdrawals ch elevated lft's improving. ciwa 4 phenobarbital protocol,given extra pheno,thiamine folic acid. addiction eval- probable transfer to Ed care tomorrow use of naquil ,also alcohol withdrwals -caused hallucination which is improved. labs,ekg monitered with poision control -singed off . Ed discussed patient with Poison control -Did verify with with poison control no indicaiton for N- acetylcysteine. acute severe hypokalemia and hypomagnesemia: added iv and po replacements. moniter bmp closely anxiety -continue home meds Mood disorder: Continue duloxetine and trazodone, get Psych consult Opioid use disorder on Suboxone Normocytic anemia: Hemoglobin above transfusion threshold Thrombocytopenia: Chronic and stable Obesity: Counseled regarding diet dvt prohphylx : s/c lovenox ongoing hospitlisation need : Considering alcohol withdrawal, multiple electrolytic abnormalities-need aggressive electrolyte resuscitation as well as monitoring CIWA scale, phenobarb protocol. Quality Stroke Does the patient have a stroke diagnosis?: No VTE Prior VTE?: No VTE Risk Level:: Medical - moderate - high VTE Device Contraindication: N/A - Device Ordered VTE Drug Contraindication: N/A - Med Ordered
[2023-12-01 15:33] VITALS: BP 132/64; PULSE 74; RESP 18; TEMP 36.9; O2SAT 98
[2023-12-01 19:29] VITALS: BP 142/65; PULSE 76; RESP 18; TEMP 36.6; O2SAT 95
[2023-12-01] MEDS: traZODone HCL 50 MG TABLET PO (20:37)
[2023-12-01] MEDS: Thiamine HCL 100 MG TABLET PO (20:37)
[2023-12-01 23:32] VITALS: BP 106/53; PULSE 75; RESP 18; TEMP 36.2; O2SAT 95
[2023-12-02 03:24] VITALS: BP 100/67; PULSE 70; RESP 18; TEMP 36.3; O2SAT 98
[2023-12-02] MEDS: Omeprazole 20 MG CAPSULE.DR PO (05:28)
[2023-12-02 08:00] VITALS: BP 155/71; PULSE 69; RESP 18; TEMP 36.1; O2SAT 92
[2023-12-02] MEDS: Aspirin Enteric Coated 81 MG TABLET.DR PO (08:27)
[2023-12-02] MEDS: DULoxetine HCl 60 MG CAPSULE.DR PO (08:28)
[2023-12-02] MEDS: Thiamine HCL 100 MG TABLET PO (08:28)
[2023-12-02] MEDS: Multivitamin TABLET 1 TAB PO (08:28)
[2023-12-02] MEDS: Folic Acid 1 MG TABLET PO (08:28)
[2023-12-02] MEDS: Magnesium Oxide 400 MG TABLET PO (08:28)
[2023-12-02] MEDS: Gabapentin 300 MG CAPSULE PO (08:32)
[2023-12-02] MEDS: 0.9 % Sodium Chloride Flush 3 ML SYRINGE IVFLUSH (08:40)
--- NOTE | 2023-12-02 09:15 | MHC.RECOVRN ---
Addendum entered by Tammi Robison 12/02/23 09:34: Pt requesting Sublocade injection prior to dc. Pt aware that [facility] confirmed they will give injection to patient while she is at their facility. Original Note: Met with pt in 477 to follow up. Pt sitting in bed, awake, alert, easily engages in conversation. CIWA 4 due to anxiety/agitation, headache, and mild tactile disturbances. Pt anxious and desiring to go to [facility] today as planned. Denies questions or concerns for t/w. Discussed with CM and provider, plan for pt to dc and be transported to [facility] as previously arranged.
--- NOTE | 2023-12-02 09:18 | MHC.CM.PN ---
PT TO BE MEDICALLY CLEARED FOR DC TO [facility] IN [place], PT'S TRANSPORT SET UP BY [facility] AND PT WILL BE PICKED UP AT 11AM
--- NOTE | 2023-12-02 09:24 | PM.DS ---
DS: Providers Provider Date of Service: 12/02/23 Date of admission: 11/27/23 08:37 Primary care physician: Baljeet Perry MD Consults: 11/27/23 15:49 Addiction Medicine Routine Consulting Provider: Addiction Covering Reason for consultation: alcohol abuse 11/28/23 14:27 Consult to Psychiatry Routine Consulting Provider: Psych Covering Reason for consultation: mood dis /mutiple etoh admissions/nquil use Has provider been notified: No DS: Diagnosis Discharge Diagnosis (1) Alcohol withdrawal: Status: Acute DS: Summary Hospital Course Hospital Course: from initial hpi: 53 y/o F with pmhx of alcohol use disorder, herpes, anxiety, depression presenting from home where she lives with her she is wheelchair-bound she is coming in status post binge drinking NyQuil, she drank 2 bottles, unknown exact quantity over the past 2 days, she reports that her is trying to help her stop drinking so he took away alcohol so she decided to drink NyQuil, last drank it thursday. Last drank alcohol last night 1 bottle of wine since she ran out of Revolucionadolabs. Initially upon arrival she was hearing voices and seeing bugs everywhere and also was hyperverbal still is at this time reports a nurse just zoomed behing me . Is still hyperverbal. No SI or HI. Denies chest pain, shortness of breath, nausea, vomiting, abdominal pain, blood in stool or vomit. Ed discussed patient with Poison control -Did verify with with poison control no indicaiton for N- acetylcysteine. Denies any new complaint of chest pain or shortness of breath or abdominal pain or fever or chills or nausea or vomiting Denies any cough Denies any weakness or numbness. hospital course: Patient was admitted for alcohol dependence with withdrawal. She was treated with phenobarbital protocol and withdrawal symptoms resolved. Patient at time of discharge still anxious and with pressured speech but this does not appear to be primarily due to alcohol withdrawal but rather mood/personality disorder. Patient will be discharged to detox facility. For acute severe hypokalemia and hypomagnesemia she received replacement. For opiate dependence she will continue on weekly Sublocade. For mood disorder was continued on duloxetine. Patient is medically stable will be discharged to detox. Time Attestation Discharge Coordination Time (in mins): 35 Quality: Safe Use of Opioids Does Pt have an Active Cancer Diagnosis on the Problem List?: No Quality: Stroke Does the patient have a stroke diagnosis?: No Physical Exam Vital Signs: Vital Signs: Last Vital Signs Temp 97.0 F 12/02/23 08:00 Pulse 69 12/02/23 08:00 Resp 18 12/02/23 08:00 BP 155/71 H 12/02/23 08:00 Pulse Ox 92 12/02/23 08:00 O2 Del Method Room Air 12/02/23 08:00 BMI result Body Mass Index 36.9 General: AO X 3, anxious Resp: CTA bilateral, no accessory muscles used CVS: S1,S2,RRR GI: soft, non tender, non distended Neuro: motor grossly intact, alert Psych: pressured speech, appropriate insight DS: Data Data Completed and Pending Completed studies during hospitalization [Text1]: Procedures Detoxification Services for Substance Abuse Treatment (09/23/23) Drainage of Right Upper Arm Subcutaneous Tissue and Fascia, Open Approach (05/13/23) Discharge Plan Discharge Anticipated Discharge Date/Time: 12/02/23 09:23 Patient Disposition: Xfer Other Discharge Diagnosis: etoh withdrawal Referrals: [facility] [Other] - 1 Week Baljeet Champagne MD [Primary Care Provider] - 1 Week Discharge Medications: Continued duloxetine 60 mg capsule,delayed release(DR/EC) 60 mg PO DAILY Qty: 30 3RF multivitamin Tablet 1 tab PO DAILY gabapentin 300 mg capsule 300 mg PO DAILY aspirin 81 mg Tablet,Delayed Release (Dr/Ec) 81 mg PO DAILY Qty: 30 0RF thiamine mononitrate (vit B1) 100 mg tablet 100 mg PO DAILY Qty: 90 3RF trazodone 50 mg Tablet 50 mg PO BEDTIME No Action Sublocade 300 mg/1.5 mL solution, extended rel syringe 300 mg subcut Q28D Qty: 1.5 0RF Rx Instructions: Last dose 11-04-23 Discharge Orders: Discharge Order (Routine); Ordered 12/02/23 Ordered By: Fly Lozada Diet: Advance to usual diet Activity on Discharge: As tolerated Stand Alone Forms: Patient Portal Discharge page Print Language: Setswana Care Plan Goals: recovery Health Concerns: etoh dependence Plan of Treatment: transfer to detox Assessment: see above Discharge Date/Time: 12/02/23 10:55
[2023-12-02] MEDS: PHENobarbitaL sodium 130 MG/ML VIAL 65 MG IM (10:26)
== END 2023-12-02 10:55 | disposition other institution (70) | DRG 812 ==
LOC: HO.ED 07:23 → HO.EDOVER 08:44 → HO.IMC 11-28 13:56
PROVIDERS: Physician Assistant; Admitting Provider Internal Medicine; Emergency Provider Emergency Medicine; PCP Internal Medicine; Visit Provider Internal Medicine
DX: T48.5X1A Poisoning by other anti-common-cold drugs, accidental (unintentional), initial encounter (principal); F10.231 Alcohol dependence with withdrawal delirium; D69.6 Thrombocytopenia, unspecified; F41.9 Anxiety disorder, unspecified; F11.20 Opioid dependence, uncomplicated; Z71.3 Dietary counseling and surveillance; D64.9 Anemia, unspecified; E66.9 Obesity, unspecified; Z68.36 Body mass index [BMI] 36.0-36.9, adult; E87.6 Hypokalemia; E83.42 Hypomagnesemia; Z99.3 Dependence on wheelchair; Z87.891 Personal history of nicotine dependence; Z79.899 Other long term (current) drug therapy
CPT/HCPCS: 36415; 80048; 80053; 80076; 80143; 80179; 80307; 81001; 83605; 83735; 84100; 84484; 85025; 93005; 99285; J1650; J2060; J2560; J3411; J3475; J3480; J7120

== ENCOUNTER → 2023-11-27 08:37 | Outpatient (BNV) | payer BC, MEDICAID, SELFPAY | PROVIDERS: Admitting Provider Internal Medicine; Emergency Provider Emergency Medicine; PCP Internal Medicine; Visit Provider Internal Medicine | DX: F10.931 Alcohol use, unspecified with withdrawal delirium (principal) | CPT/HCPCS: 99222; 99231; 99232; 99239 ==

== ENCOUNTER → 2023-11-27 08:37 | Outpatient (BNV) | payer BC, MEDICAID, SELFPAY | PROVIDERS: Admitting Provider Internal Medicine; Emergency Provider Emergency Medicine; PCP Internal Medicine; Visit Provider Nurse Practitioner Psychiatric/Mental Health | DX: F10.931 Alcohol use, unspecified with withdrawal delirium (principal) | CPT/HCPCS: 99231; 99499 ==

== ENCOUNTER 2023-12-30 12:55 | Outpatient (AMB) | payer BC, MEDICAID, SELFPAY ==
--- NOTE | 2023-12-30 13:31 | AM.OFFVISNUR ---
Intake Visit Reasons: Sub Injection Allergies No Known Allergies Allergy (Verified 11/27/23 05:59) Nursing Note Patient Presents for Injection. Current Dose 300MG . Given in the ruq with no noted or stated complications. Last appt with provider was prior to her recent admission to a detox facility , will follow up with RN in 4 weeks for injection. Will need to see provider for check in next visit as well . Office Meds Sublocade 300 mg/1.5 mL solution,extended release subcutaneous syringe Performing Provider: Yazmin Mckinnon CNP Performing Location: [facility] Administered by: Dominique Lugo RN on 12/30/23 15:18 Dose Route Admin Location Dispensed Lot Number Expiration Date [facility] Tipple Mechanic 300 mg subcut RUQ 1.5 mL [id number] 02/04/25 [address]-0 [employer]. Assessment & Plan Assessment & Plan Orders: Orders AMB Buprenorphine Injection - Patient Supplied 12/30/23 F11.90 - Opioid use, unspecified, uncomplicated Medications: New Sublocade ER (buprenorphine) 300 mg (1.5 mL) subcut ONCE 1.5 mL 0RF NS F11.90 - Opioid use, unspecified, uncomplicated
== END 2023-12-30 13:30 | disposition home or self-care (01) ==
PROVIDERS: PCP Internal Medicine
DX: F11.90 Opioid use, unspecified, uncomplicated (principal)

== ENCOUNTER → 2023-12-30 12:55 | Outpatient (BNVA) | payer BC, MEDICAID, SELFPAY | PROVIDERS: PCP Internal Medicine | DX: F11.90 Opioid use, unspecified, uncomplicated (principal) | CPT/HCPCS: 96372; Q9992 ==

== ENCOUNTER 2024-02-09 11:13 | Outpatient (AMB) | payer BC, MEDICAID, SELFPAY ==
--- NOTE | 2024-02-09 11:10 | AM.OFFVISNUR ---
Intake Visit Reasons: Sublocade Injection Allergies No Known Allergies Allergy (Verified 11/27/23 05:59) Nursing Note Patient Presents for sublocade Injection. Current Dose 300mg . Given in the RLQ with no noted or stated complication. Denies any issues with previous injection. Denies symptoms, and denies any break through cravings. will follow up with RN in 4 weeks for injection. Office Meds Sublocade 300 mg/1.5 mL solution,extended release subcutaneous syringe Performing Provider: Yazmin Mckinnon CNP Performing Location: [facility] Administered by: Dominique Lugo RN on 02/09/24 13:51 Dose Route Admin Location Dispensed Lot Number Expiration Date [facility] Senior Network Engineer 300 mg subcut RLQ 1.5 mL [id number] 01/04/25 [address]-8 [employer]. Assessment & Plan Assessment & Plan Orders: Orders AMB Buprenorphine Injection - Patient Supplied 02/09/24 F11.90 - Opioid use, unspecified, uncomplicated
== END 2024-02-09 11:41 | disposition home or self-care (01) ==
LOC: HO.HCC 11:13
PROVIDERS: PCP Internal Medicine
DX: F11.90 Opioid use, unspecified, uncomplicated (principal)

== ENCOUNTER → 2024-02-09 11:13 | Outpatient (BNVA) | payer BC, MEDICAID, SELFPAY | PROVIDERS: PCP Internal Medicine | DX: F11.90 Opioid use, unspecified, uncomplicated (principal) | CPT/HCPCS: 96372; Q9992 ==

== ENCOUNTER 2024-03-08 11:01 | Outpatient (AMB) | payer BC, MEDICAID, SELFPAY ==
--- NOTE | 2024-03-08 11:05 | AM.OFFVISNUR ---
Intake Visit Reasons: Sublocade Injection Allergies No Known Allergies Allergy (Verified 11/27/23 05:59) Nursing Note Patient Presents for Sublocade Injection. Current Dose 300mg . Given in the abdomen with no noted or stated complications. Denies any issues with previous injection. Patient endorced swollen ankles and states she has been drinking alot more . I brought patient to ER waiting room to sign in for swelling and she stated she is interested in detox. Office Meds Sublocade 300 mg/1.5 mL solution,extended release subcutaneous syringe Performing Provider: Yazmin Mckinnon CNP Performing Location: [facility] Administered by: Dominique Lugo RN on 03/08/24 13:45 Dose Route Admin Location Dispensed Lot Number Expiration Date [facility] Shank Taper 300 mg subcut ECTOR 1.5 mL [id number] 02/04/25 [address]-7 [employer]. Assessment & Plan Assessment & Plan Orders: Orders AMB Buprenorphine Injection 03/08/24 F11.90 - Opioid use, unspecified, uncomplicated
== END 2024-03-08 16:11 | disposition home or self-care (01) ==
PROVIDERS: PCP Internal Medicine
DX: F11.90 Opioid use, unspecified, uncomplicated (principal)

== ENCOUNTER 2024-03-08 11:20 | Emergency (ER) | payer BC, MEDICAID, SELFPAY ==
--- NOTE | 2024-03-08 12:04 | MHC.EDTECH ---
This pct called patients and security informed me that this patient left. RN Aware
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
== END 2024-03-08 12:27 | disposition left against medical advice (07) ==
PROVIDERS: Emergency Provider Emergency Medicine
DX: R07.89 Other chest pain (principal)
CPT/HCPCS: 96372; 99281; Q9992

== ENCOUNTER 2024-04-06 11:25 | Emergency (ER) | payer BC, MEDICAID, SELFPAY ==
--- NOTE | ~2024-04-06 | US_ITS ---
CLINICAL HISTORY: RUQ abnormal bili and LFTs, pain US abdomen limited. COMPARISON: US right upper quadrant dated 04/28/23 at 07:26 EST Technique: Real time sonographic imaging, including color-flow imaging, was performed by the manager restaurant. Multiple disability representative static images were saved for review. FINDINGS: Pancreas is obscured by overlying bowel gas. The liver has diffusely increased echogenicity. Simple hepatic cyst within the right lobe measuring 1.5 x 1.5 x 1.6 cm. Liver, right lobe size: 19.3 cm, enlarged Status post cholecystectomy. Common bile duct: 10 mm, within normal limits given cholecystectomy and similar to prior imaging. Right kidney: Portions of the right kidney are poorly visualized secondary to patient body habitus. Cortical medullary differentiation is maintained. No calculus or focal parenchymal abnormality identified. No hydronephrosis. Right kidney length: 12.4 cm No free intraperitoneal fluid identified. IMPRESSION: 1. Cholecystectomy with associated dilated common bile duct, similar to prior imaging. No choledocholithiasis identified. 2. Hepatomegaly with hepatic steatosis. This document has been electronically signed by: Edmundo Mendoza MD on 04/06/2024 16:25:34
--- NOTE | ~2024-04-06 | XR_ITS ---
CLINICAL HISTORY: sOB Single view of the chest. COMPARISON: XR chest dated 07/19/23 at 00:27 EDT FINDINGS: Normal heart and mediastinal contours. Low lung volumes. No consolidation. No pleural effusion or pneumothorax. Moderate spondylosis. Leftward curvature of the lower thoracic spine. No fracture identified. IMPRESSION: 1. Low lung volumes. No consolidation. This document has been electronically signed by: Edmundo Mendoza MD on 04/06/2024 13:14:40
[2024-04-06 11:31] VITALS: BP 144/51; BP 148/88; PULSE 106; PULSE 109; RESP 22; TEMP 36.8; O2SAT 95; O2SAT 98; BMI 38.1
--- NOTE | 2024-04-06 11:40 | ECG_ITS ---
Test Reason : CHEST PAIN Blood Pressure : / mmHG Vent. Rate : 096 BPM Atrial Rate : 096 BPM P-R Int : 142 ms QRS Dur : 080 ms QT Int : 348 ms P-R-T Axes : 006 009 -09 degrees QTc Int : 439 ms Poor data quality, interpretation may be adversely affected Normal sinus rhythm Normal ECG When compared with ECG of 29-NOV-2023 16:08, Nonspecific T wave abnormality now evident in Lateral leads Referred By: Felecia Roberts Electronically Signed By:
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
[2024-04-06 12:02] LABS: Basophils Absolute Auto 0.1 X10*3/uL (0.0-0.2); Basophils Percent Auto 3.2 % (0-2); Eosinophils Absolute Auto 0.1 X10*3/uL (0.0-0.4); Eosinophils Percent Auto 2.5 % (0-4); Hematocrit 31.8 % (37.0-47.0); Hemoglobin 10.8 g/dl (12.0-16.0); Imm Gran Abs Auto 0.01 X10*3/uL (0.00-0.03); Imm Gran Pct Auto 0.2 % (0.0-0.4); Lymphocytes Absolute Auto 1.1 X10*3/uL (1.2-4.9); Lymphocytes Percent Auto 26.6 % (20-40); MANUAL DIFF FLAG SCAN; Mean Corpuscular Hemoglobin 35.4 pg (27.0-33.0); Mean Corpuscular Volume 104.3 fL (80.0-98.0); Mean Platelet Volume 9.1 fL (9.4-12.3); Monocytes Absolute Auto 0.4 X10*3/uL (0.1-1.2); Monocytes Percent Auto 9.6 % (2-11); Neutrophils Absolute Auto 2.4 x10*3/uL (2.0-8.3); Neutrophils Percent Auto 57.9 % (45-73); Platelet Count 222 X10*3/uL (160-400); Red Blood Count 3.05 X10*6/uL (4.20-5.50); Red Cell Distribution Width 16.8 % (11.0-16.0); SCAN SMEAR FLAG 1; White Blood Count 4.1 X10*3/uL (4.8-10.8)
[2024-04-06 12:12] LABS: Ethanol 380 mg/dL
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
[2024-04-06 12:17] LABS: Alanine Aminotransferase 40 U/L (0-31); Albumin Level 3.4 g/dL (3.5-5.0); Alkaline Phosphatase 285 U/L (39-117); Anion Gap 15 (12-20); Aspartate Amino Transferase 219 U/L (5-31); Bilirubin Total 2.6 mg/dL (0.0-1.0); Blood Urea Nitrogen 5 mg/dL (9-16); Calcium 8.1 mg/dL (8.4-10.2); Carbon Dioxide 26 mmol/L (22-29); Chloride 103 mmol/L (96-108); Creatinine Clr Calc Pharmacy 153.7; Estimated Glomerular Filt Rate > 60; Glucose Random 102 mg/dL (60-115); Lipase 14 U/L (8-78); Magnesium 1.8 mg/dL (1.6-2.6); Sodium 140 mmol/L (135-145); Total Protein 7.2 g/dL (6.5-8.0)
[2024-04-06 12:22] LABS: B Type Natriuretic Peptide 52 pg/mL (<100); Troponin-I High Sensitivity < 2.7 ng/L (<3.5-17.0)
[2024-04-06 12:31] LABS: SLIDE REVIEW VERIFIED
[2024-04-06] MEDS: Thiamine HCL 200 MG in 0.9 % Sodium Chloride 100 ML 204 MG IV (12:36)
[2024-04-06] MEDS: Magnesium Sulfate/H2O 2 GM/50 ML PIGGYBACK IV (12:37)
[2024-04-06] MEDS: LORazepam 2 MG/ML VIAL 1 MG IVPUSH (12:37)
[2024-04-06 12:38] LABS: Influenza A PCR NEGATIVE (Negative); Influenza B PCR NEGATIVE (Negative); Resp Syncy Virus RNA Qual PCR NEGATIVE (Negative); SARS COV2 PCR INHOUSE NEGATIVE (Negative)
--- NOTE | 2024-04-06 12:52 | ED.GENADULT ---
HPI - General Adult General Chief complaint: General Medical Stated complaint: BACK PAIN, CP, SOB, ETOH, NAUSEA PER EMS Time Seen by Provider: 04/06/24 11:51 Source: patient and old records reviewed Mode of arrival: ambulatory Limitations: other (alcohol abuse) History of Present Illness ED Provider: NICO HPI narrative: 53 yo female with PMH of severe ETOH use disorder, opiate use disorder just missed her last sublocaide unclear of when she was due, anxiety and depression states she has gone to detox centers 50 times and it never works. She leaves her her has alcohol in the house. She denies SI. She states her whole body hurts she feels she is going to go into withdrawal. No recent head trauma or LOC. She is very animated and loud. I cannot really get a hold of her complaints other than chronic ETOH use. No n/v/d MD complaint: ETOH abuse Onset (ago): year(s) Location: chest and abdomen Radiation: non-radiation Severity: moderate Quality: aching Pain Consistency: intermittent Relieving factors: none Exacerbating factors: other (ETOH use) Associated symptoms: loss of appetite, malaise and weakness Treatments prior to arrival: none Related Data Home Medications ?Medication ?Instructions ?Recorded ?Confirmed gabapentin 300 mg capsule 300 mg PO DAILY 04/28/23 11/27/23 multivitamin 1 tab PO DAILY 04/28/23 11/27/23 trazodone 50 mg tablet 50 mg PO BEDTIME 09/23/23 11/27/23 Previous Rx's ?Medication ?Instructions ?Recorded aspirin 81 mg tablet,delayed 81 mg PO DAILY #30 tabs 05/05/23 release thiamine mononitrate (vit B1) 100 100 mg PO DAILY #90 tabs 07/25/23 mg tablet duloxetine 60 mg capsule,delayed 60 mg PO DAILY #30 caps 11/24/23 release buprenorphine 300 mg/1.5 mL 300 mg (1.5 mL) subcut Q28D #1.5 mL 02/02/24 solution,exten.rel.subcutaneous syringe (Sublocade) buprenorphine 8 mg-naloxone 2 mg 1 film buccal DAILY #7 ea 02/04/24 sublingual film (Suboxone) chlordiazepoxide HCl 25 mg capsule 25 mg PO BID PRN alcohol 04/06/24 withdrawal #4 caps Allergies Allergy/AdvReac Type Severity Reaction Status Date / Time No Known Allergies Allergy Verified 04/06/24 11:33 Review of Systems Review of Systems: Constitutional : No Fever, No Chills, pos Fatigue ENT/Mouth : No sore throat, No Rhinorrhea Eyes: No Eye Pain, No Swelling, No Redness Cardiovascular : No Chest Pain, No SOB, No Dyspnea on Exertion Respiratory : No Cough, No Sputum Gastrointestinal : No Nausea, No Vomiting, No Diarrhea, pos abdominal Pain Genitourinary : No Dysuria, No Urinary Frequency, No Hematuria, Musculoskeletal : pos joint pain, No Myalgias, No Joint Swelling Skin : No Skin Lesions, No rash Neuro : No Weakness, No Numbness, No Dizziness, no Headache Psych : pos Anxiety/Panic, No Depression, no SI All other systems reviewed and are negative [facility] Past Medical History Attestation statement: The following information was validated with the patient. Source: old records reviewed Medical History Alcohol use disorder, severe, dependence Alcohol withdrawal hallucinosis Falls frequently Pedal edema Cellulitis Alcohol intoxication Korsakoff syndrome Thrombocytopenia Alcohol withdrawal syndrome Abscess of axilla, right Rash Encounter for monitoring Suboxone maintenance therapy Hypertension Opioid use disorder Alcohol abuse Surgical History History of total knee arthroplasty History of gastric surgery Family History Family History Father Lung cancer Social History Social History Household Members: Spouse Housing: House Do you presently have visiting nurse or other home services: No Unable to assess alcohol history related to: Unknown Alcohol intake: current Alcohol intake frequency: 3 or more drinks per day Alcohol type: beer and hard liquor Comment: pt turns off alarm on own Patient Tobacco Use Status: Former Tobacco user Tobacco use type: Cigarette Years Smoked: 2 Second Hand Smoke Exposure: No Advance Directives: No Advance Directives Information Provided: No Do you have a plan to hurt others: No Plan service: No Current occupational status: employed Physical Exam ED Vital Signs: Vital Signs - 24 hr 04/06/24 11:31 04/06/24 14:31 04/06/24 16:05 Temperature 98.3 F 97.7 F 97.7 F Pulse Rate 106 H 97 97 Respiratory Rate 22 H 18 18 Blood Pressure 144/51 H 124/67 124/67 Pulse Oximetry 95 98 98 Oxygen Delivery Method Room Air Room Air Room Air BMI result Body Mass Index 38.1 Appearance: Alert. Oriented X3. No acute distress. ETOH odor, animated moving all extremities Eyes: Pupils equal, round and reactive to light. ENT: Pharynx normal. atraumatic Neck: Normal inspection. Neck supple. CVS: Normal heart rate and rhythm. Pulses normal. Respiratory: No respiratory distress. Breath sounds normal. Abdomen: Soft and non-tender. Skin: Skin warm and dry. Normal skin color. Normal skin turgor. Extremities: No lower extremity edema. old bruises bilateral anterior shins Neuro: Oriented X 3. No motor deficit. No sensory deficit. Medications Administered Discontinued Medications Generic Name Dose Route Start Last Admin Trade Name Freq PRN Reason Stop Dose Admin Thiamine HCl 200 mg/ Sodium 102 mls @ 204 mls/hr 04/06/24 11:58 04/06/24 13:06 Chloride IV 04/06/24 12:27 Infused ONCE ONE Infusion Magnesium Sulfate 2 gm in 50 mls @ 25 mls/hr 04/06/24 11:58 04/06/24 15:54 Magnesium Sulfate/H2o IV 04/06/24 13:57 Infused ONCE ONE Infusion Lorazepam 1 mg 04/06/24 11:58 04/06/24 12:37 Lorazepam 2 Mg/Ml Vial IVPUSH 04/06/24 11:59 1 mg STAT STA Administration Medical Decision Making Medical Decision Making [facility] Narrative: 53 yo female with PMH of severe ETOH use disorder, opiate use disorder just missed her last sublocaide unclear of when she was due, anxiety and depression here with c/o ETOH abuse, feeling shaky, all over body pain at this time basic labs, magnesium, thiamine, IV ativan. Will try to involve addiction if they are here today. Differential Diagnosis Differential Diagnoses: The differential diagnosis associated with the presentation includes ETOH abuse, gastritis, pancreatitis, Admission/Observation Consideration of admission/observation: Escalation of care including admission/observation considered steady gait stable for DC wants to leave Lab Data [facility] Lab Attestation statement: I reviewed the patient's lab results. 04/06/24 11:53 04/06/24 11:53 Labs: Lab Results 04/06/24 04/06/24 04/06/24 Range/Units 11:53 13:57 15:07 WBC 4.1 L (4.8-10.8) X10*3/uL RBC 3.05 L (4.20-5.50) X10*6/uL Hgb 10.8 L (12.0-16.0) g/dl Hct 31.8 L (37.0-47.0) % MCV 104.3 H (80.0-98.0) fL MCH 35.4 H (27.0-33.0) pg MCHC 34.0 (31.0-35.0) g/dl RDW 16.8 H (11.0-16.0) % Plt Count 222 (160-400) X10*3/uL MPV 9.1 L (9.4-12.3) fL Immature Gran % (Auto) 0.2 (0.0-0.4) % Neut % (Auto) 57.9 (45-73) % Lymph % (Auto) 26.6 (20-40) % Griggs % (Auto) 9.6 (2-11) % Eos % (Auto) 2.5 (0-4) % Baso % (Auto) 3.2 H (0-2) % Lymph # (Auto) 1.1 L (1.2-4.9) X10*3/uL Griggs # (Auto) 0.4 (0.1-1.2) X10*3/uL Eos # (Auto) 0.1 (0.0-0.4) X10*3/uL Baso # (Auto) 0.1 (0.0-0.2) X10*3/uL Abs Immat Gran (auto) 0.01 (0.00-0.03) X10*3/uL Absolute Neuts (auto) 2.4 (2.0-8.3) x10*3/uL Absolute Nucleated RBC 0.000 (0.0-0.012) X10*3/uL Nucleated RBC % (auto) 0.0 (0.0-0.2) /100WBC Smear Tech's Comments VERIFIED Sodium 140 (135-145) mmol/L Potassium 4.0 (3.3-5.1) mmol/L Chloride 103 (96-108) mmol/L Carbon Dioxide 26 (22-29) mmol/L Anion Gap 15 (12-20) BUN 5 L (9-16) mg/dL Creatinine 0.46 L (0.5-1.4) mg/dL Estim Creat Clear Calc 153.7 Estimated GFR > 60 Random Glucose 102 (60-115) mg/dL Calcium 8.1 L (8.4-10.2) mg/dL Magnesium 1.8 (1.6-2.6) mg/dL Total Bilirubin 2.6 H (0.0-1.0) mg/dL AST 219 H (5-31) U/L ALT 40 H (0-31) U/L Alkaline Phosphatase 285 H (39-117) U/L Troponin I High Sens < 2.7 D < 2.7 (<3.5-17.0) ng/L B-Natriuretic Peptide 52 (<100) pg/mL Total Protein 7.2 (6.5-8.0) g/dL Albumin 3.4 L (3.5-5.0) g/dL Lipase 14 (8-78) U/L Urine Color Dark Yellow Urine Appearance Clear Urine pH 6.5 (5.0-9.0) Ur Specific [place] <= 1.005 (1.005-1.025) Urine Protein Negative (Neg-Trace) mg/dL Urine Glucose (UA) Negative (Negative) mg/dL Urine Ketones Negative (Negative) mg/dL Urine Blood Negative (Negative) Urine Nitrite Negative (Negative) Ur Leukocyte Esterase Negative (Negative) Urine RBC 0-2 (0-2) /HPF Urine WBC 0-5 (0-5) /HPF Ur Squamous Epith Cells 3-5 (0-2) /HPF Urine Bacteria None Seen (None Seen) Hyaline Casts 0-2 (0-2) /LPF Urine Opiates Screen Not Detected (Not Detect) Ur Buprenorphine Scrn Positive H (Not Detect) ng/mL Ur Oxycodone Screen Not Detected (Not Detect) ng/mL Urine Methadone Screen Not Detected (Not Detect) ng/mL Urine Fentanyl Screen Not Detected (Not Detect) Ur Barbiturates Screen Not Detected (Not Detect) Ur Phencyclidine Scrn Not Detected (Not Detect) Ur Amphetamines Screen Not Detected (Not Detect) U Benzodiazepines Scrn Not Detected (Not Detect) Urine Cocaine Screen Not Detected (Not Detect) U Marijuana (THC) Screen Not Detected (Not Detect) Ethyl Alcohol 380 H* mg/dL Influenza Type A (PCR) NEGATIVE (Negative) Influenza Type B (PCR) NEGATIVE (Negative) RSV RNA Qual (PCR) NEGATIVE (Negative) SARS-CoV-2 RNA (RT-PCR) NEGATIVE (Negative) Independent Interpretation I performed an independent interpretation of an: EKG and Ultrasound (no active infection) Interpretation: Rate: 96 Rhythm: NSR Orcas: normal Normal P waves. Normal JASMINE. Normal QRS complex. ST T wave : no MILES, inverted t waves III, nonspecific ST T wave changes lateral leads qTC:444 prior studies: no sig changes The study has been interpreted contemporaneously by me. . Radiology Impression Discussion of test interpretation with radiology: I have reviewed the radiologist's reading. Independent Historian Clinical information obtained from an independent historian. History obtained from or confirmed by: Spouse External Record Review External record reviewed: Inpatient record and Outpatient record Prescription Management I considered prescription management with: Other Critical Care Time Critical Care Time Critical Care Time: Yes Total Critical Care Time: 60 Attestation: IV ativan, bedside discussion, IV magnesium to prevent arrythmia, reassess. I attest to this time spent taking care of the patient Discharge Plan Discharge Clinical Impression: Alcohol use disorder, severe, dependence, Elevated LFTs Patient Disposition: Home, Self-Care Instructions: Abuse of Alcohol (ED) Additional Instructions: your liver enzymes are mildly bumped due to your dirnking you do not have a urinary tract infection you were given fluids, ativan, vitamins please call Yazmin Mckinnon tomorrow our case management team should be calling you about your physical therapy at home return for any worsening symptoms or concerns. Prescriptions: New chlordiazepoxide HCl 25 mg capsule 25 mg PO BID PRN (Reason: alcohol withdrawal) Qty: 4 0RF No Action duloxetine 60 mg capsule,delayed release(DR/EC) 60 mg PO DAILY Qty: 30 3RF Sublocade 300 mg/1.5 mL solution, extended rel syringe 300 mg subcut Q28D Qty: 1.5 3RF buprenorphine-naloxone [Suboxone] 8-2 mg film 1 film buccal DAILY Qty: 7 0RF multivitamin Tablet 1 tab PO DAILY gabapentin 300 mg capsule 300 mg PO DAILY aspirin 81 mg Tablet,Delayed Release (Dr/Ec) 81 mg PO DAILY Qty: 30 0RF thiamine mononitrate (vit B1) 100 mg tablet 100 mg PO DAILY Qty: 90 3RF trazodone 50 mg Tablet 50 mg PO BEDTIME Interventions: ED Discharge Assessment Last Done: 04/06/24 16:05 Discharge Date/Time: 04/06/24 16:06 Print Language: Romansh
--- NOTE | 2024-04-06 12:53 | PC.NURSE ---
pt unable to urinate after utilizing bed todd and commode. bladder scan obtained displaying 383ml. provider notified/aware. per MD, pt does not need to have straight catheterization performed until bladder scan >500ml and pt is still unable to urinate. pt otherwise now resting comfortably in no apparent distress. respirations even/unlabored. lights dimmed to promote comfort. camera in place for safety precautions. plan of care ongoing. call hazel placed within reach.
[2024-04-06 14:30] LABS: Troponin-I High Sensitivity < 2.7 ng/L (<3.5-17.0)
[2024-04-06 14:31] VITALS: BP 124/67; PULSE 97; RESP 18; TEMP 36.5; O2SAT 98
--- NOTE | 2024-04-06 14:50 | PC.NURSE ---
1:1 assist needed to ambulate to the commode. urine obtained/sent to lab. ultrasound being completed at this time.
[2024-04-06 15:22] LABS: Appearance Urine Clear; Color Urine Dark Yellow; Glucose Urine UA Negative (Negative); Leukocyte Esterase Urine Negative (Negative); Nitrite Urine Negative (Negative); PH 6.5 (5.0-9.0); Specific Gravity - Urine <= 1.005 (1.005-1.025); Urine Blood Negative (Negative); Urine Ketones Negative (Negative); Urine Protein Negative (Neg-Trace)
[2024-04-06 15:34] LABS: Amphetamine Screen Urine Not Detected (Not Detect); Barbiturates, Urine Not Detected (Not Detect); Benzodiazepines Screen Urine Not Detected (Not Detect); Buprenorphine Scr Positive (Not Detect); Cannabinoid Screen Urine Not Detected (Not Detect); Cocaine Screen Urine Not Detected (Not Detect); Fentanyl, urine Not Detected (Not Detect); Methadone Screen, Urine Not Detected (Not Detect); Opiate Screen Urine Not Detected (Not Detect); Oxycodone Screen Urine Not Detected (Not Detect); Phencyclidine Screen Urine Not Detected (Not Detect)
[2024-04-06 15:35] LABS: Bacteria Urine None Seen (None Seen); Hyaline Casts Urine 0-2 /LPF (0-2); RBC Urine 0-2 /HPF (0-2); WBC Urine 0-5 /HPF (0-5)
[2024-04-06 16:05] VITALS: BP 124/67; PULSE 97; RESP 18; TEMP 36.5; O2SAT 98
== END 2024-04-06 16:06 | disposition home or self-care (01) ==
PROVIDERS: Physician Assistant Medical; Emergency Provider Emergency Medicine
DX: F10.26 Alcohol dependence with alcohol-induced persisting amnestic disorder (principal); Y90.8 Blood alcohol level of 240 mg/100 ml or more; R79.89 Other specified abnormal findings of blood chemistry; R06.02 Shortness of breath; F41.8 Other specified anxiety disorders; I10 Essential (primary) hypertension; F11.20 Opioid dependence, uncomplicated; Z79.82 Long term (current) use of aspirin; Z79.899 Other long term (current) drug therapy
CPT/HCPCS: 0241U; 36415; 71045; 76705; 80053; 80307; 81001; 83690; 83735; 83880; 84484; 85025; 93005; 96365; 96366; 96367; 96375; 99284; J2060; J3411; J3475

== ENCOUNTER → 2024-04-06 11:40 | Outpatient (BNV) | payer BC, MEDICAID, SELFPAY | PROVIDERS: Emergency Provider Emergency Medicine; Visit Provider Radiology Diagnostic Radiology | DX: R16.0 Hepatomegaly, not elsewhere classified (principal); K76.0 Fatty (change of) liver, not elsewhere classified; S36.13XA Injury of bile duct, initial encounter; Z90.5 Acquired absence of kidney; R06.02 Shortness of breath | CPT/HCPCS: 71045; 76705 ==

== ENCOUNTER 2024-04-14 10:47 | Outpatient (AMB) | payer BC, MEDICAID, SELFPAY ==
--- NOTE | 2024-04-14 11:20 | AM.OFFVISNUR ---
Intake Visit Reasons: Sublocade Injection Allergies No Known Allergies Allergy (Verified 04/06/24 11:33) Nursing Note Patient Presents for Sublocade Injection. Current Dose 300mg . Given in the LLQ with no noted or stated complications. Denies any issues with previous injection. Denies symptoms, and denies any break through cravings. Will follow up with RN in 4 weeks for injection. Will need to see provider for check in at next appt in [place] . Office Meds Sublocade 300 mg/1.5 mL solution,extended release subcutaneous syringe Performing Provider: Yazmin Mckinnon CNP Performing Location: [facility] Administered by: Dominique Lugo RN on 04/14/24 16:44 Dose Route Admin Location Dispensed Lot Number Expiration Date FORMERLY NAMED [facility] Size Marker 300 mg subcut LLQ 1.5 mL [id number] 03/06/25 [address]-9 [employer]. Assessment & Plan Assessment & Plan Orders: Orders AMB Buprenorphine Injection - Patient Supplied Today F11.90 - Opioid use, unspecified, uncomplicated Medications: New Sublocade ER (buprenorphine) 300 mg (1.5 mL) subcut ONCE 1.5 mL 0RF NS F11.90 - Opioid use, unspecified, uncomplicated
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
== END 2024-04-14 11:18 | disposition home or self-care (01) ==
DX: F11.90 Opioid use, unspecified, uncomplicated (principal)

== ENCOUNTER → 2024-04-14 10:47 | Outpatient (BNVA) | payer BC, MEDICAID, SELFPAY | DX: F11.90 Opioid use, unspecified, uncomplicated (principal) | CPT/HCPCS: 96372; Q9992 ==

== ENCOUNTER 2024-04-22 06:22 | Inpatient (IN) | payer BC, MEDICAID, SELFPAY ==
[2024-04-22] VITALS (7 sets, daily range): BP systolic 94–140; BP diastolic 55–88; PULSE 62–126; RESP 12–20; TEMP 36.7–37.4; O2SAT 92–99; BMI 41.9
--- NOTE | 2024-04-22 | ECG_ITS ---
Test Reason : cp Blood Pressure : */* mmHG Vent. Rate : 80 BPM Atrial Rate : 80 BPM P-R Int : 136 ms QRS Dur : 84 ms QT Int : 414 ms P-R-T Axes : 38 10 -12 degrees QTcB Int : 477 ms Normal sinus rhythm Normal ECG When compared with ECG of 06-Apr-2024 11:47, No significant change was found Referred By: Generic ED Physician Electronically Signed By: JAZZY LYNCH MD
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
--- NOTE | ~2024-04-22 | XR_ITS ---
EXAMINATION: XR CHEST 1 VIEW HISTORY: shortness of breath, right sided pain COMPARISON: Comparison is made with the prior examination dated 04/06/2024. FINDINGS: A single AP portable view of the chest performed at 8:55 AM is submitted. The patient is rotated to the left. There is linear subsegmental atelectasis in the left lower lobe. The right lung is clear. There is no pleural effusion, pneumothorax, or pulmonary vascular congestion. The heart is normal in size. There is degenerative disc disease of the spine. XR/XR chest 1V IMPRESSION: Linear subsegmental atelectasis in the left lower lobe. Electronically signed by: Dwaine Mahmood MD 04/22/2024 09:14 AM [facility]
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
[2024-04-22] MEDS: chlordiazePOXIDE HCl 25 MG CAPSULE 50 MG PO (08:39)
[2024-04-22 08:51] LABS: MANUAL DIFF FLAG NO
[2024-04-22 08:52] LABS: Basophils Absolute Auto 0.1 X10*3/uL (0.0-0.2); Basophils Percent Auto 1.6 % (0-2); Eosinophils Absolute Auto 0.1 X10*3/uL (0.0-0.4); Eosinophils Percent Auto 3.8 % (0-4); Hematocrit 27.3 % (37.0-47.0); Hemoglobin 9.3 g/dl (12.0-16.0); Imm Gran Abs Auto 0.02 X10*3/uL (0.00-0.03); Imm Gran Pct Auto 0.5 % (0.0-0.4); Lymphocytes Absolute Auto 0.7 X10*3/uL (1.2-4.9); Lymphocytes Percent Auto 18.4 % (20-40); Mean Corpuscular HGB Conc 34.1 g/dl (31.0-35.0); Mean Corpuscular Hemoglobin 34.8 pg (27.0-33.0); Mean Corpuscular Volume 102.2 fL (80.0-98.0); Mean Platelet Volume 9.6 fL (9.4-12.3); Monocytes Absolute Auto 0.4 X10*3/uL (0.1-1.2); Monocytes Percent Auto 11.4 % (2-11); Neutrophils Absolute Auto 2.4 x10*3/uL (2.0-8.3); Neutrophils Percent Auto 64.3 % (45-73); Platelet Count 139 X10*3/uL (160-400); Red Blood Count 2.67 X10*6/uL (4.20-5.50); Red Cell Distribution Width 15.9 % (11.0-16.0); White Blood Count 3.7 X10*3/uL (4.8-10.8)
[2024-04-22 08:53] LABS: Appearance Urine Clear; Color Urine Yellow; Glucose Urine UA Negative (Negative); Leukocyte Esterase Urine Trace (Negative); Nitrite Urine Negative (Negative); Specific Gravity - Urine <= 1.005 (1.005-1.025); UMIC TRIGGER UACC YES; Urine Blood Negative (Negative); Urine Ketones Negative (Negative); Urine Protein Negative (Neg-Trace)
[2024-04-22 08:56] LABS: Bacteria Urine None Seen (None Seen); Hyaline Casts Urine 0-2 /LPF (0-2); RBC Urine 0-2 /HPF (0-2); WBC Urine 0-5 /HPF (0-5)
[2024-04-22 09:04] LABS: Amphetamine Screen Urine Not Detected (Not Detect); Barbiturates, Urine Not Detected (Not Detect); Benzodiazepines Screen Urine POSITIVE (Not Detect); Buprenorphine Scr Positive (Not Detect); Cannabinoid Screen Urine Not Detected (Not Detect); Cocaine Screen Urine Not Detected (Not Detect); Fentanyl, urine Not Detected (Not Detect); Methadone Screen, Urine Not Detected (Not Detect); Opiate Screen Urine Not Detected (Not Detect); Oxycodone Screen Urine Not Detected (Not Detect); Phencyclidine Screen Urine Not Detected (Not Detect)
[2024-04-22 09:10] LABS: Alanine Aminotransferase 28 U/L (0-31); Albumin Level 3.1 g/dL (3.5-5.0); Alkaline Phosphatase 290 U/L (39-117); Anion Gap 11 (12-20); Aspartate Amino Transferase 138 U/L (5-31); Bilirubin Total 3.1 mg/dL (0.0-1.0); Blood Urea Nitrogen 4 mg/dL (9-16); Calcium 7.8 mg/dL (8.4-10.2); Carbon Dioxide 30 mmol/L (22-29); Chloride 99 mmol/L (96-108); Creatinine Clr Calc Pharmacy 158.7; Estimated Glomerular Filt Rate > 60; Ethanol 292 mg/dL; Glucose Random 99 mg/dL (60-115); Potassium 3.1 mmol/L (3.3-5.1); Sodium 137 mmol/L (135-145); Total Protein 6.7 g/dL (6.5-8.0)
[2024-04-22 09:33] LABS: Influenza A PCR NEGATIVE (Negative); Influenza B PCR NEGATIVE (Negative); Resp Syncy Virus RNA Qual PCR NEGATIVE (Negative); SARS COV2 PCR INHOUSE NEGATIVE (Negative)
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
[2024-04-22] MEDS: PHENobarbitaL sodium 130 MG/ML IM ONCE 250 MG IM (14:41)
--- NOTE | 2024-04-22 15:33 | P.HPHOSP_ITS ---
History of Present Illness Date of Service: 04/22/24 Chief Complaint: tremor 53F PMH alcohol dependence, alcoholic fatty liver, opiate dependence, mood disorder, obesity presented with tremulousness. patient has been trying to cut back on alcohol use, still had 2 beers this a.m. but has been drinking much less and starting to feel withdrawal symptoms with jitteriness, tremor, anxiety so she came to ED. in ED CIWA is 17. Review of Systems 2 Review of Systems: Yes all other systems are reviewed and are negative [facility] Medical History Alcohol use disorder, severe, dependence Alcohol withdrawal hallucinosis Falls frequently Pedal edema Cellulitis Alcohol intoxication Korsakoff syndrome Thrombocytopenia Alcohol withdrawal syndrome Abscess of axilla, right Rash Encounter for monitoring Suboxone maintenance therapy Hypertension Opioid use disorder Alcohol abuse Family History Father Lung cancer Surgical History History of total knee arthroplasty History of gastric surgery Social History Household Members: Spouse Housing: House Do you presently have visiting nurse or other home services: No Unable to assess alcohol history related to: Unknown Alcohol intake: current Alcohol intake frequency: 3 or more drinks per day Alcohol type: beer and hard liquor Comment: pt turns off alarm on own Patient Tobacco Use Status: Former Tobacco user Tobacco use type: Cigarette Years Smoked: 2 Smoked in Last 30 Days: No Second Hand Smoke Exposure: No Use of substances other than those prescribed or required for medical reasons: No Advance Directives: No Advance Directives Information Provided: Yes Do you have a plan to hurt others: No Plan service: No Current occupational status: employed Meds Allergies Allergy/AdvReac Type Severity Reaction Status Date / Time No Known Allergies Allergy Verified 04/22/24 06:50 Active Medications: Current Medications Acetaminophen (Acetaminophen 325 Mg Tablet) 650 mg PO Q6H PRN PRN Reason: Pain, Mild 1-3,fever,headache Calcium Carbonate (Calcium Carbonate 750 Mg Tab.Chew) 750 mg PO Q4H PRN PRN Reason: Heartburn Enoxaparin Sodium (Enoxaparin Sodium 40 Mg/0.4 Ml Syringe) 40 mg SUBCUT Q24H [place] Magnesium Hydroxide (Milk Of Magnesia 30 Ml Oral.Susp) 30 ml PO DAILY PRN PRN Reason: Constipation Melatonin (Melatonin 3 Mg Tablet) 6 mg PO BEDTIME PRN PRN Reason: Insomnia Pharmacy Consult (Consult Rx Etoh Phenob Im/Po) 1 each MISCELLANE ONCE PRN; Protocol PRN Reason: Consult order Phenobarbital (Phenobarbital 15 Mg Tablet) 45 mg PO BID [facility] Stop: 04/24/24 21:01 Phenobarbital (Phenobarbital 30 Mg Tablet) 30 mg PO BID [facility] Stop: 04/26/24 21:01 Phenobarbital (Phenobarbital 30 Mg Tablet) 30 mg PO DAILY [facility] Stop: 04/28/24 09:01 Phenobarbital Sodium (Phenobarbital Sodium 130 Mg/Ml Vial Im Q3hx2) 188 mg IM Q3H [facility] Stop: 04/22/24 21:01 Sodium Chloride (0.9 % Sodium Chloride Flush 3 Ml Syringe) 3 ml IVFLUSH QSHIFT [facility] Home Medications ?Medication ?Instructions ?Recorded ?Confirmed ?Last Taken ?Type gabapentin 300 mg capsule 300 mg PO DAILY 04/28/23 11/27/23 11/24/23 History multivitamin 1 tab PO DAILY 04/28/23 11/27/23 11/24/23 History trazodone 50 mg tablet 50 mg PO BEDTIME 09/23/23 11/27/23 11/24/23 History Physical Exam 2 Vital Signs and Narrative: Vital Signs: Last Vital Signs Temp 98.2 F 04/22/24 13:25 Pulse 126 H 04/22/24 14:02 Resp 20 04/22/24 14:02 BP 121/76 04/22/24 14:02 Pulse Ox 97 04/22/24 13:25 O2 Del Method Room Air 04/22/24 13:25 BMI result Body Mass Index 41.9 General: AO X 3,uneasy, jaundiced Resp: CTA bilateral, no accessory muscles used CVS: S1,S2,RRR GI: soft, non tender, non distended Results Labs 04/22/24 08:45 04/22/24 08:45 Labs: Laboratory Results - last 24 hr 04/22/24 08:45 MCV 102.2 H MCH 34.8 H MCHC 34.1 RDW 15.9 Plt Count 139 L D MPV 9.6 Immature Gran % (Auto) 0.5 H Neut % (Auto) 64.3 Lymph % (Auto) 18.4 L [place] % (Auto) 11.4 H Eos % (Auto) 3.8 Baso % (Auto) 1.6 Lymph # (Auto) 0.7 L [place] # (Auto) 0.4 Eos # (Auto) 0.1 Baso # (Auto) 0.1 Abs Immat Gran (auto) 0.02 Absolute Neuts (auto) 2.4 Absolute Nucleated RBC 0.000 Nucleated RBC % (auto) 0.0 Anion Gap 11 L Estim Creat Clear Calc 158.7 Estimated GFR > 60 Random Glucose 99 Calcium 7.8 L Total Bilirubin 3.1 H AST 138 H ALT 28 Alkaline Phosphatase 290 H Total Protein 6.7 Albumin 3.1 L Urine Color Yellow Urine Appearance Clear Urine pH 7.0 Ur Specific [place] <= 1.005 Urine Protein Negative Urine Glucose (UA) Negative Urine Ketones Negative Urine Blood Negative Urine Nitrite Negative Ur Leukocyte Esterase Trace H Urine RBC 0-2 Urine WBC 0-5 Ur Squamous Epith Cells 3-5 Urine Bacteria None Seen Hyaline Casts 0-2 Urine Opiates Screen Not Detected Ur Buprenorphine Scrn Positive H Ur Oxycodone Screen Not Detected Urine Methadone Screen Not Detected Urine Fentanyl Screen Not Detected Ur Barbiturates Screen Not Detected Ur Phencyclidine Scrn Not Detected Ur Amphetamines Screen Not Detected U Benzodiazepines Scrn POSITIVE H Urine Cocaine Screen Not Detected U Marijuana (THC) Screen Not Detected Ethyl Alcohol 292 Influenza Type A (PCR) NEGATIVE Influenza Type B (PCR) NEGATIVE RSV RNA Qual (PCR) NEGATIVE SARS-CoV-2 RNA (RT-PCR) NEGATIVE Imaging Radiologist's Impressions: Impressions Head CT 04/22/24 08:56 IMPRESSION: No acute intracranial abnormality. Electronically signed by: Dwaine Mahmood MD 04/22/2024 09:22 AM EST RP Chest X-Ray 04/22/24 09:00 IMPRESSION: Linear subsegmental atelectasis in the left lower lobe. Electronically signed by: Dwaine Mahmood MD 04/22/2024 09:14 AM EST RP Assessment and Plan (1) Alcohol withdrawal: Status: Acute Plan 53F PMH alcohol dependence, alcoholic fatty liver, opiate dependence, mood disorder, obesity presented with tremulousness Alcohol dependence with withdrawl ciwa, phenobarb alcohol fatty liver abstinence mood disorder off meds opiate dependence monthly subutex obesity weight loss recommended acute hypokalemia replace and monitor dvt prophylaxis - hep sq full code patient with withdrawla, high ciwa, likely to need atleast 2 midnights Quality Stroke Does the patient have a stroke diagnosis?: No VTE Prior VTE?: No VTE Risk Level:: Medical - moderate - high VTE Device Contraindication: Treatment Not Indicated VTE Drug Contraindication: N/A - Med Ordered
--- NOTE | 2024-04-22 16:45 | PHA.MEDREC ---
Addendum entered by Lydia Mathew [facility] 04/22/24 16:55: REVIEWED Original Note: Pharmacy Consult ? Medication Reconciliation Pharmacy has completed the medication reconciliation. Spoke with patient and she confirmed her medications. She confirmed she is not taking anything at the moment and states she ran out of her medications and never got them refilled. She confirmed she was talking the Duloxetine 60mg tabs but ran out of those about 1-2 weeks ago. She states ran out of all her other medications a while ago . She confirmed she got the buprenorphine 300 mg/1.5 mL solution,exten.rel.subcutaneous syringe about 2 weeks ago from her
[2024-04-22] MEDS: Enoxaparin Sodium 40 MG/0.4 ML SYRINGE SUBCUT (18:10)
[2024-04-22] MEDS: PHENobarbitaL sodium 130 MG/ML VIAL IM Q3Hx2 188 MG IM ×2 (18:11→21:06)
[2024-04-22] MEDS: Potassium Chloride ER 20 MEQ TAB.ER.PRT 40 MEQ PO (18:11)
[2024-04-22] MEDS: 0.9 % Sodium Chloride Flush 3 ML SYRINGE IVFLUSH (18:19)
--- NOTE | 2024-04-22 19:52 | PC.NURSE ---
This RN assumed pt care @ 1900. Pt a&Ox4, no signs of distress. Pt done with meal tray, meal tray removed from room. Plan of care ongoing.
--- NOTE | 2024-04-22 20:21 | PC.NURSE ---
Pt placed in hospital bed. Pt requested and drink. Pt requested and curtain closed. Plan of care ongoing.
--- NOTE | 2024-04-22 21:12 | PC.NURSE ---
Pt a&ox4, no signs of distress. Pt medicated per mar Plan of care ongoing.
--- NOTE | 2024-04-22 23:53 | MHC.EDTECH ---
Assumed care of Pt at 2300.
[2024-04-23] VITALS: BP 126/77; PULSE 105; RESP 16; TEMP 36.9; O2SAT 97
--- NOTE | 2024-04-23 00:19 | PC.NURSE ---
This RN spoke with Dr. Hunter regarding Phenobarb dose entered in for 22:41. Per Dr. Hunter 1511 dose can be held until pt feels she needs it. Plan of care ongoing.
[2024-04-23] MEDS: 0.9 % Sodium Chloride Flush 3 ML SYRINGE IVFLUSH ×4 (01:00→21:15)
[2024-04-23] MEDS: PHENobarbitaL sodium 130 MG/ML VIAL IM (01:11)
--- NOTE | 2024-04-23 01:15 | PC.NURSE ---
Pt requested and medicated per [facility] Plan of care ongoing.
[2024-04-23 06:18] VITALS: BMI 37.9
[2024-04-23 07:01] VITALS: BP 143/73; PULSE 95; RESP 18; TEMP 36.8; O2SAT 94
[2024-04-23 07:59] LABS: Hematocrit 25.5 % (37.0-47.0); Hemoglobin 8.6 g/dl (12.0-16.0); Mean Corpuscular HGB Conc 33.7 g/dl (31.0-35.0); Mean Corpuscular Hemoglobin 34.8 pg (27.0-33.0); Mean Corpuscular Volume 103.2 fL (80.0-98.0); Mean Platelet Volume 10.5 fL (9.4-12.3); Platelet Count 125 X10*3/uL (160-400); Red Blood Count 2.47 X10*6/uL (4.20-5.50); Red Cell Distribution Width 16.2 % (11.0-16.0); White Blood Count 4.4 X10*3/uL (4.8-10.8)
[2024-04-23 08:06] LABS: INTERNATIONAL NORM RATIO 1.1 (0.9-1.1); Prothrombin Time 13.2 SEC (10.9-12.4)
[2024-04-23 08:14] LABS: Alanine Aminotransferase 17 U/L (0-31); Albumin Level 2.7 g/dL (3.5-5.0); Alkaline Phosphatase 276 U/L (39-117); Anion Gap 10 (12-20); Aspartate Amino Transferase 133 U/L (5-31); Bilirubin Direct 2.9 mg/dL (0.0-0.5); Bilirubin Total 4.3 mg/dL (0.0-1.0); Blood Urea Nitrogen 4 mg/dL (9-16); Calcium 7.7 mg/dL (8.4-10.2); Carbon Dioxide 30 mmol/L (22-29); Chloride 100 mmol/L (96-108); Creatinine Clr Calc Pharmacy 190.5; Estimated Glomerular Filt Rate > 60; Glucose Random 86 mg/dL (60-115); Potassium 3.3 mmol/L (3.3-5.1); Sodium 137 mmol/L (135-145); Total Protein 5.9 g/dL (6.5-8.0)
--- NOTE | 2024-04-23 08:17 | MHC.CM.PN ---
Patient lives with her /HCP/Yifan and uses a cane and a walker at times. Patient is on Suboxone through [facility] and last dc from [facility] to [facility] r/t [facility]. Home self care vs Recovery Team intervention is the tentative plan and CM has initiated and will follow for dc planning. PCP is Dr. Baljeet Major and will transport to home.
[2024-04-23] MEDS: PHENobarbitaL 15 MG TABLET 45 MG PO ×2 (08:42→21:15)
[2024-04-23] MEDS: Buprenorphine/Naloxone 8/2 mg FILM 1 FILM SUBLINGUAL (08:42)
--- NOTE | 2024-04-23 10:09 | HO.PM.IMPN ---
Subjective Subjective Date of Service: 04/23/24 Interval History: alcohol withdrawal Review of Systems still anxious /tremers no fevers Physical Exam Vital Signs: Vital Signs: Last Vital Signs Temp 98.2 F 04/23/24 07:01 Pulse 95 04/23/24 07:01 Resp 18 04/23/24 07:01 BP 143/73 H 04/23/24 07:01 Pulse Ox 94 04/23/24 07:01 O2 Del Method Room Air 04/23/24 07:01 BMI result Body Mass Index 37.9 Objective Data Active Medications Acetaminophen (Acetaminophen 325 Mg Tablet) 650 mg PO Q6H PRN PRN Reason: Pain, Mild 1-3,fever,headache Buprenorphine/Naloxone (Buprenorphine/Naloxone 8/2 Mg Film) 1 film SUBLINGUAL DAILY [facility] Last Admin: 04/23/24 08:42 Dose: 1 film Documented By: MARY Calcium Carbonate (Calcium Carbonate 750 Mg Tab.Chew) 750 mg PO Q4H PRN PRN Reason: Heartburn Enoxaparin Sodium (Enoxaparin Sodium 40 Mg/0.4 Ml Syringe) 40 mg SUBCUT Q24H [facility] Last Admin: 04/22/24 18:10 Dose: 40 mg Documented By: COOPEAnia Magnesium Hydroxide (Milk Of Magnesia 30 Ml Oral.Susp) 30 ml PO DAILY PRN PRN Reason: Constipation Melatonin (Melatonin 3 Mg Tablet) 6 mg PO BEDTIME PRN PRN Reason: Insomnia Pharmacy Consult (Consult Rx Etoh Phenob Im/Po) 1 each MISCELLANE ONCE PRN; Protocol PRN Reason: Consult order Phenobarbital (Phenobarbital 15 Mg Tablet) 45 mg PO BID [facility] Stop: 04/24/24 21:01 Last Admin: 04/23/24 08:42 Dose: 45 mg Documented By: MARY Phenobarbital (Phenobarbital 30 Mg Tablet) 30 mg PO BID [facility] Stop: 04/26/24 21:01 Phenobarbital (Phenobarbital 30 Mg Tablet) 30 mg PO DAILY [facility] Stop: 04/28/24 09:01 Sodium Chloride (0.9 % Sodium Chloride Flush 3 Ml Syringe) 3 ml IVFLUSH QSHIFT [facility] Last Admin: 04/23/24 08:43 Dose: 3 ml Documented By: MARY Labs 04/23/24 07:29 04/23/24 07:29 Labs: Laboratory Results - last 24 hr 04/23/24 07:29 MCV 103.2 H MCH 34.8 H MCHC 33.7 RDW 16.2 H Plt Count 125 L MPV 10.5 Absolute Nucleated RBC 0.000 Nucleated RBC % (auto) 0.0 PT 13.2 H INR 1.1 Anion Gap 10 L Estim Creat Clear Calc 190.5 Estimated GFR > 60 Random Glucose 86 Calcium 7.7 L Total Bilirubin 4.3 H Direct Bilirubin 2.9 H AST 133 H ALT 17 Alkaline Phosphatase 276 H Total Protein 5.9 L Albumin 2.7 L Assessment and Plan (1) Alcohol withdrawal: Status: Acute Plan 53F PMH alcohol dependence, alcoholic fatty liver, opiate dependence, mood disorder, obesity presented with tremulousness Alcohol dependence with withdrawal ciwa, phenobarb alcohol fatty liver abstinence mood disorder off meds opiate dependence suboxone obesity weight loss recommended acute hypokalemia replaced dvt prophylaxis - hep sq full code reason for continued hospitalization:withdrawal Quality Stroke Does the patient have a stroke diagnosis?: No VTE Prior VTE?: No VTE Risk Level:: Medical - moderate - high VTE Device Contraindication: Treatment Not Indicated VTE Drug Contraindication: N/A - Med Ordered
[2024-04-23 11:28] VITALS: BP 130/79; PULSE 83; RESP 18; TEMP 36.8; O2SAT 98
[2024-04-23] MEDS: PHENobarbitaL sodium 65 MG/ML VIAL IM (14:35)
[2024-04-23 15:17] VITALS: BP 137/79; PULSE 79; RESP 18; TEMP 36.3; O2SAT 100
[2024-04-23] MEDS: Enoxaparin Sodium 40 MG/0.4 ML SYRINGE SUBCUT (15:43)
[2024-04-23 16:59] LABS: Appearance Urine Clear; Color Urine Dark Yellow; Glucose Urine UA Negative (Negative); Leukocyte Esterase Urine Trace (Negative); Nitrite Urine Negative (Negative); PH 8.5 (5.0-9.0); UMIC TRIGGER UACC YES; Urine Blood Negative (Negative); Urine Ketones Negative (Negative); Urine Protein Negative (Neg-Trace)
[2024-04-23 17:04] LABS: Bacteria Urine 1+ (None Seen); Hyaline Casts Urine 0-2 /LPF (0-2); RBC Urine 0-2 /HPF (0-2); WBC Urine 0-5 /HPF (0-5)
[2024-04-23 19:13] VITALS: BP 121/66; PULSE 85; RESP 18; TEMP 36.7; O2SAT 99
[2024-04-24] VITALS: BP 115/69; PULSE 85; RESP 18; TEMP 37.1; O2SAT 98
[2024-04-24 02:47] VITALS: BP 146/86; PULSE 98; RESP 16; TEMP 37.1; O2SAT 97
[2024-04-24 07:01] LABS: Hematocrit 26.2 % (37.0-47.0); Hemoglobin 8.9 g/dl (12.0-16.0); Mean Corpuscular Hemoglobin 35.7 pg (27.0-33.0); Mean Corpuscular Volume 105.2 fL (80.0-98.0); Mean Platelet Volume 10.6 fL (9.4-12.3); NRBC Pct Auto 0.4 /100WBC (0.0-0.2); Platelet Count 122 X10*3/uL (160-400); Red Blood Count 2.49 X10*6/uL (4.20-5.50); Red Cell Distribution Width 16.1 % (11.0-16.0); White Blood Count 4.9 X10*3/uL (4.8-10.8)
[2024-04-24 07:26] LABS: Alanine Aminotransferase 17 U/L (0-31); Albumin Level 2.7 g/dL (3.5-5.0); Alkaline Phosphatase 266 U/L (39-117); Anion Gap 13 (12-20); Aspartate Amino Transferase 117 U/L (5-31); Bilirubin Direct 2.7 mg/dL (0.0-0.5); Blood Urea Nitrogen 3 mg/dL (9-16); Calcium 7.8 mg/dL (8.4-10.2); Carbon Dioxide 26 mmol/L (22-29); Chloride 100 mmol/L (96-108); Creatinine Clr Calc Pharmacy 160.1; Estimated Glomerular Filt Rate > 60; Glucose Random 100 mg/dL (60-115); Potassium 3.4 mmol/L (3.3-5.1); Sodium 136 mmol/L (135-145); Total Protein 6.3 g/dL (6.5-8.0)
[2024-04-24 07:27] VITALS: BP 135/76; PULSE 94; RESP 20; TEMP 37.1; O2SAT 96
[2024-04-24] MEDS: Buprenorphine/Naloxone 8/2 mg FILM 1 FILM SUBLINGUAL (08:17)
[2024-04-24] MEDS: PHENobarbitaL 15 MG TABLET 45 MG PO (08:17)
--- NOTE | 2024-04-24 09:49 | HO.PM.IMPN ---
Subjective Subjective Date of Service: 04/24/24 Interval History: alcohol withdrawal Review of Systems still anxious /tremers no fevers Physical Exam Vital Signs: Vital Signs: Last Vital Signs Temp 98.8 F 04/24/24 07:27 Pulse 94 04/24/24 07:27 Resp 20 04/24/24 07:27 BP 135/76 04/24/24 07:27 Pulse Ox 96 04/24/24 07:27 O2 Del Method Room Air 04/24/24 07:27 BMI result Body Mass Index 37.9 General: AO X 3, anxious Resp: CTA bilateral, no accessory muscles used CVS: S1,S2,RRR GI: soft, non tender, non distended Neuro: motor grossly intact, alert Psych: pressured speech, appropriate insight Objective Data Active Medications Acetaminophen (Acetaminophen 325 Mg Tablet) 650 mg PO Q6H PRN PRN Reason: Pain, Mild 1-3,fever,headache Buprenorphine/Naloxone (Buprenorphine/Naloxone 8/2 Mg Film) 1 film SUBLINGUAL DAILY [facility] Last Admin: 04/24/24 08:17 Dose: 1 film Documented By: MARY Calcium Carbonate (Calcium Carbonate 750 Mg Tab.Chew) 750 mg PO Q4H PRN PRN Reason: Heartburn Enoxaparin Sodium (Enoxaparin Sodium 40 Mg/0.4 Ml Syringe) 40 mg SUBCUT Q24H [facility] Last Admin: 04/23/24 15:43 Dose: 40 mg Documented By: PODMOJEFFREY Magnesium Hydroxide (Milk Of Magnesia 30 Ml Oral.Susp) 30 ml PO DAILY PRN PRN Reason: Constipation Melatonin (Melatonin 3 Mg Tablet) 6 mg PO BEDTIME PRN PRN Reason: Insomnia Pharmacy Consult (Consult Rx Etoh Phenob Im/Po) 1 each MISCELLANE ONCE PRN; Protocol PRN Reason: Consult order Phenobarbital (Phenobarbital 15 Mg Tablet) 45 mg PO BID [facility] Stop: 04/24/24 21:01 Last Admin: 04/24/24 08:17 Dose: 45 mg Documented By: MARY Phenobarbital (Phenobarbital 30 Mg Tablet) 30 mg PO BID [facility] Stop: 04/26/24 21:01 Phenobarbital (Phenobarbital 30 Mg Tablet) 30 mg PO DAILY [facility] Stop: 04/28/24 09:01 Sodium Chloride (0.9 % Sodium Chloride Flush 3 Ml Syringe) 3 ml IVFLUSH QSHIFT [facility] Last Admin: 04/24/24 08:43 Dose: Not Given Documented By: MARY Non-Admin Reason: Previously Administered Labs 04/24/24 06:19 04/24/24 06:19 Labs: Laboratory Results - last 24 hr 04/23/24 04/24/24 16:40 06:19 MCV 105.2 H MCH 35.7 H MCHC 34.0 RDW 16.1 H Plt Count 122 L MPV 10.6 Absolute Nucleated RBC 0.020 H Nucleated RBC % (auto) 0.4 H Anion Gap 13 Estim Creat Clear Calc 160.1 Estimated GFR > 60 Random Glucose 100 Calcium 7.8 L Total Bilirubin 4.0 H Direct Bilirubin 2.7 H AST 117 H ALT 17 Alkaline Phosphatase 266 H Total Protein 6.3 L Albumin 2.7 L Urine Color Dark Yellow Urine Appearance Clear Urine pH 8.5 Ur Specific [place] 1.010 Urine Protein Negative Urine Glucose (UA) Negative Urine Ketones Negative Urine Blood Negative Urine Nitrite Negative Ur Leukocyte Esterase Trace H Urine RBC 0-2 Urine WBC 0-5 Ur Squamous Epith Cells 3-5 Urine Bacteria 1+ Hyaline Casts 0-2 Assessment and Plan (1) Alcohol withdrawal: Status: Acute Plan 53F PMH alcohol dependence, alcoholic fatty liver, opiate dependence, mood disorder, obesity presented with tremulousness Alcohol dependence with withdrawal ciwa, phenobarb alcohol fatty liver abstinence mood disorder off meds opiate dependence suboxone obesity weight loss recommended acute hypokalemia replaced dvt prophylaxis - hep sq full code reason for continued hospitalization:withdrawal Quality Stroke Does the patient have a stroke diagnosis?: No VTE Prior VTE?: No VTE Risk Level:: Medical - moderate - high VTE Device Contraindication: Treatment Not Indicated VTE Drug Contraindication: N/A - Med Ordered
--- NOTE | 2024-04-24 10:26 | P.DS_ITS ---
DS: Providers Provider Date of Service: 04/24/24 Date of admission: 04/22/24 15:31 Date of discharge: 04/24/24 Primary care physician: Baljeet Perry MD Consults: 04/22/24 09:33 Addiction Medicine Stat Consulting Provider: Addiction Covering Reason for consultation: alcoholic trying to stop, also on subutex Has provider been notified: No DS: Diagnosis Discharge Diagnosis (1) Alcohol withdrawal: Status: Acute DS: Summary Hospital Course Hospital Course: from initial hpi: 53F PMH alcohol dependence, alcoholic fatty liver, opiate dependence, mood disorder, obesity presented with tremulousness. patient has been trying to cut back on alcohol use, still had 2 beers this a.m. but has been drinking much less and starting to feel withdrawal symptoms with jitteriness, tremor, anxiety so she came to ED. in ED CIWA is 17. hospital course: Patient was admitted for alcohol dependence with withdrawal. She was treated with phenobarbital and symptoms improved. CIWA is now 0. Patient is following and community with patient services specialist. For alcoholic fatty liver and acute alcoholic hepatitis. Should be continued to be monitored outpatient. Complete abstinence is recommended. For mood disorder patient has been off her Cymbalta is recommended to follow with Psychiatry outpatient. For opiate dependence was continued on Suboxone. For obesity weight loss recommended. For acute hypokalemia patient received replacement. Time Attestation Discharge Coordination Time (in mins): 37 Quality: Safe Use of Opioids Does Pt have an Active Cancer Diagnosis on the Problem List?: No Quality: Stroke Does the patient have a stroke diagnosis?: No Physical Exam Vital Signs: Vital Signs: Last Vital Signs Temp 98.8 F 04/24/24 07:27 Pulse 94 04/24/24 07:27 Resp 20 04/24/24 07:27 BP 135/76 04/24/24 07:27 Pulse Ox 96 04/24/24 07:27 O2 Del Method Room Air 04/24/24 07:27 BMI result Body Mass Index 37.9 General: AO X 3, no acute distress Resp: CTA bilateral, no accessory muscles used CVS: S1,S2,RRR GI: soft, non tender, non distended Neuro: motor grossly intact, alert Psych: appropriate affect, appropriate insight DS: Data Data Completed and Pending Completed studies during hospitalization [Text1]: Procedures Detoxification Services for Substance Abuse Treatment (11/27/23) Drainage of Right Upper Arm Subcutaneous Tissue and Fascia, Open Approach (05/13/23) Labs on day of discharge: Laboratory Results - last 24 hr 04/23/24 04/24/24 16:40 06:19 WBC 4.9 RBC 2.49 L Hgb 8.9 L Hct 26.2 L MCV 105.2 H MCH 35.7 H MCHC 34.0 RDW 16.1 H Plt Count 122 L MPV 10.6 Absolute Nucleated RBC 0.020 H Nucleated RBC % (auto) 0.4 H Sodium 136 Potassium 3.4 Chloride 100 Carbon Dioxide 26 Anion Gap 13 BUN 3 L Creatinine 0.44 L Estim Creat Clear Calc 160.1 Estimated GFR > 60 Random Glucose 100 Calcium 7.8 L Total Bilirubin 4.0 H Direct Bilirubin 2.7 H AST 117 H ALT 17 Alkaline Phosphatase 266 H Total Protein 6.3 L Albumin 2.7 L Urine Color Dark Yellow Urine Appearance Clear Urine pH 8.5 Ur Specific [place] 1.010 Urine Protein Negative Urine Glucose (UA) Negative Urine Ketones Negative Urine Blood Negative Urine Nitrite Negative Ur Leukocyte Esterase Trace H Urine RBC 0-2 Urine WBC 0-5 Ur Squamous Epith Cells 3-5 Urine Bacteria 1+ Hyaline Casts 0-2 Discharge Plan Discharge Anticipated Discharge Date/Time: 04/24/24 10:25 Patient Disposition: Home, Self-Care Discharge Diagnosis: etoh withdrawal Referrals: Baljeet Champagne MD [Primary Care Provider] - 1 Week Discharge Medications: Continued duloxetine 60 mg capsule,delayed release(DR/EC) 60 mg PO DAILY Qty: 30 3RF Sublocade 300 mg/1.5 mL solution, extended rel syringe 300 mg subcut Q28D Qty: 1.5 3RF Discharge Orders: Discharge Order (Routine); Ordered 04/24/24 Ordered By: Fly Lozada Diet: Advance to usual diet Activity on Discharge: As tolerated Stand Alone Forms: Patient Portal Discharge page Print Language: Nigerian Care Plan Goals: recovery Health Concerns: etoh dependence Plan of Treatment: avoid etoh Assessment: see above
--- NOTE | 2024-04-24 10:54 | MHC.CM.PN ---
Patient has been medically cleared for dc to home today, self care.
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
== END 2024-04-24 11:37 | disposition home or self-care (01) | DRG 280 ==
LOC: HO.ED 15:34 → HO.EDOVER 15:37 → HO.IMC 04-23 03:22
PROVIDERS: Admitting Provider Internal Medicine; Emergency Provider Emergency Medicine; PCP Internal Medicine; Visit Provider Internal Medicine
DX: K70.10 Alcoholic hepatitis without ascites (principal); K70.0 Alcoholic fatty liver; E66.9 Obesity, unspecified; F10.239 Alcohol dependence with withdrawal, unspecified; F11.20 Opioid dependence, uncomplicated; F10.229 Alcohol dependence with intoxication, unspecified; E87.6 Hypokalemia; Z68.37 Body mass index [BMI] 37.0-37.9, adult; F39 Unspecified mood [affective] disorder; Z20.822 Contact with and (suspected) exposure to COVID-19; Z98.84 Bariatric surgery status; Z71.3 Dietary counseling and surveillance; Y90.8 Blood alcohol level of 240 mg/100 ml or more; Z79.899 Other long term (current) drug therapy
CPT/HCPCS: 0241U; 36415; 70450; 71045; 80048; 80053; 80076; 80307; 81001; 85025; 85027; 85610; 93005; 99285; J1650; J2560

== ENCOUNTER → 2024-04-22 07:15 | Outpatient (BNV) | payer BC, MEDICAID, SELFPAY | PROVIDERS: Admitting Provider Internal Medicine; Emergency Provider Emergency Medicine; PCP Internal Medicine; Visit Provider Internal Medicine Cardiovascular Disease | DX: R07.9 Chest pain, unspecified (principal) | CPT/HCPCS: 93010 ==

== ENCOUNTER → 2024-04-22 08:23 | Outpatient (BNV) | payer BC, MEDICAID, SELFPAY | PROVIDERS: Emergency Provider Emergency Medicine; PCP Internal Medicine; Visit Provider Radiology Diagnostic Radiology | DX: S09.90XA Unspecified injury of head, initial encounter (principal); J98.11 Atelectasis | CPT/HCPCS: 70450; 71045 ==

== ENCOUNTER → 2024-04-22 15:31 | Outpatient (BNV) | payer BC, MEDICAID, SELFPAY | PROVIDERS: Admitting Provider Internal Medicine; Emergency Provider Emergency Medicine; PCP Internal Medicine; Visit Provider Nurse Practitioner Psychiatric/Mental Health | DX: F10.20 Alcohol dependence, uncomplicated (principal) | CPT/HCPCS: 99221 ==

== ENCOUNTER → 2024-04-22 15:31 | Outpatient (BNV) | payer BC, MEDICAID, SELFPAY | PROVIDERS: Admitting Provider Internal Medicine; Emergency Provider Emergency Medicine; PCP Internal Medicine; Visit Provider Internal Medicine | DX: F10.931 Alcohol use, unspecified with withdrawal delirium (principal) | CPT/HCPCS: 99222; 99232; 99239 ==

== ENCOUNTER 2024-05-09 13:31 | Emergency (ER) | payer BC, MEDICAID, SELFPAY ==
[2024-05-09 13:36] VITALS: BP 107/90; BP 162/100; PULSE 70; PULSE 95; RESP 20; TEMP 36.8; O2SAT 95; O2SAT 98; BMI 39.5
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
[2024-05-09] MEDS: chlordiazePOXIDE HCl 25 MG CAPSULE 50 MG PO (14:41)
[2024-05-09 15:14] VITALS: BP 107/90; PULSE 95; RESP 20; TEMP 36.8; O2SAT 98
--- OUTSIDE RECORDS SUMMARY | 2024-05-09 16:24 | XMS_ITS | Encounter Summary ---
Author Organization [employer] Address [address] [place] [address] [address] [place] [address] Care Team Providers Care Asphalt Plant Worker Name Role Phone Baljeet Champagne MD Primary Care Prov ider Encounter Details Date Type Department Care Team (Late st Contact Info) Description 08/13/2023 Orders Only [facility] [address] [place], [place] [phone] Vanessa George LPN Social History Tobacco Use Types Packs/Day Years Used Date Smoking Tobacco: Never Assessed Comments Unknown Sex and Gender Information Value Date Recorded Sex Assigned at Female 02/03/2022 10:36 AM EDT Legal Sex Female 10:36 AM EDT Gender Identity Female 02/03/2022 10:36 AM EDT Sexual Orientation Straight 02/03/2022 10 :36 AM EDT documented as of this encounter Plan of Treatment Not on file documented as of this encounter Visit Diagnoses Not on filedocumented in this encounter Care Teams Asphalt Plant Worker Relationship Specialty Start Date End Date Baljeet Champagne MD [address] [place] [address] PCP - General Internal Medicine 06/24/19 documented as of this encounter
--- OUTSIDE RECORDS SUMMARY | 2024-05-09 16:24 | XMS_ITS | Encounter Summary ---
Author Organization [employer] Address [address] [facility] [address] [place] [address] Care Team Providers Care Bellhop Service Captain Name Role Phone Baljeet Champagne MD Primary Care Prov ider Encounter Details Date Type Department Care Team (Late st Contact Info) Description 08/12/2023 Telephone [facility] [address] [place], [place] [phone] Baljeet Champagne MD [address] [place] [address] Social History Tobacco Use Types Packs/Day Years [...] on filedocumented in this encounter Care Teams Bellhop Service Captain Relationship Specialty Start Date End Date Baljeet Champagne MD [address] [place] [address] PCP - General Internal Medicine 06/24/19 documented as of this encounter
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
--- OUTSIDE RECORDS SUMMARY | 2024-05-09 16:24 | XMS_ITS | Encounter Summary ---
Author Organization [employer] Address [address] [facility] [address] [place] [address] Care Team Providers Care Pitch Flaker Name Role Phone Baljeet Champagne MD Primary Care Prov ider Encounter Details Date Type Department Care Team (Late st Contact Info) Description 08/05/2023 Orders Only [facility] [address] [place] [address] Baljeet Champagne MD [address] [place] [address] Social History Tobacco Use Types Packs/Day Years [...] on filedocumented in this encounter Care Teams Pitch Flaker Relationship Specialty Start Date End Date Baljeet Cahmpagne MD [address] [place] [address] PCP - General Internal Medicine 06/24/19 documented as of this encounter
--- OUTSIDE RECORDS SUMMARY | 2024-05-09 16:24 | XMS_ITS | Encounter Summary ---
Author Organization [employer] Address [address] [facility] [address] [place] [address] Care Team Providers Care Large Engine Assembler Name Role Phone Baljeet Champagne MD Primary Care Prov ider Reason for Visit * Reason Onset Date Comments Medication Question 07/28/2023 Encounter Details Date Type Department Care Team (Late st Contact Info) Description 07/28/2023 Telephone [facility] MED[facility]INE [address] [place] [address] Baljeet Champagne MD [address] [place] [address] Medication Question Social History Tobacco Use Types Packs/Day Years Used Date Smoking Tobacco: Never Assessed Comments Unknown Sex and Gender Information Value Date Recorded Sex Assigned at Female 02/03/2022 10:36 AM EDT Legal Sex Female 10:36 AM EDT Gender Identity Female 02/03/2022 10:36 AM EDT Sexual Orientation Straight 02/03/2022 10 :36 AM EDT documented as of this encounter Miscellaneous Notes * Telephone Encounter - Vanessa George LPN - 07/29/2023 9:51 AM EDT Aston Perry MD , Can you please review Beverley Mims 's chart and advised on next steps to complete request for PA. I have Reviewed the previous note, but it fails to mention why this medication is necessary & ICD 10 Vanessa George LPN Tc from pt states PA is needed for modafinil (Provigil) 100 MG tablet. Pt is looking to get medication by Thursday. * Telephone Encounter - Wing Brijesh RN - 07/28/2023 1:05 PM EDT Tc to pt, has telephone visit with provider today and will discuss medication and growing pimple near the left lip. 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
--- OUTSIDE RECORDS SUMMARY | 2024-05-09 16:24 | XMS_ITS | Encounter Summary ---
Author Organization [employer] Address [address] [place] [address] Care Team Providers Care Pattern Ruler Name Role Phone Baljeet Champagne MD Primary Care Prov ider Reason for Visit * Reason Onset Date Comments Request For Order(s) 07/28/2023 Encounter Details Date Type Department Care Team (Late st Contact Info) Description 07/28/2023 Telephone [facility] MEDICINE [address] [place] [address] Baljeet Champagne MD [address] [place] [address] Request For Order(s) Social History Tobacco Use Types Packs/Day Years Used Date Smoking Tobacco: Never Assessed Comments Unknown Sex and Gender Information Value Date Recorded Sex Assigned at Female 02/03/2022 10:36 AM EDT Legal Sex Female 10:36 AM EDT Gender Identity Female 02/03/2022 10:36 AM EDT Sexual Orientation Straight 02/03/2022 10 :36 AM EDT documented as of this encounter Miscellaneous Notes * Telephone Encounter - Wing Brijesh RN - 08/21/2023 1:06 PM EDT Tc to pt, spoke to , he stated he would have pt call back. Tc to [facility] and confirmed verbal order, spoke to Ivelisse who verbalized understanding and agreement with plan. * Telephone Encounter - Dhiraj Lua - 07/28/2023 10:46 AM EDT Tc from yoselin from [facility] requesting a verbal order to start PT for weakness and unsteadiness, also stated will be starting pt for retirement 1 x a week for 9 weeks. Please contact at [phone] documented in this encounter Plan of Treatment Not on file documented as of this encounter Visit Diagnoses Not on filedocumented in this encounter Care Teams Pattern Ruler Relationship Specialty Start Date End Date DavisBaljeet Oscar MD [address] [place] [address] PCP - General Internal Medicine 06/24/19 documented as of this encounter
--- OUTSIDE RECORDS SUMMARY | 2024-05-09 16:24 | XMS_ITS | Clinical Summary ---
Author Organization [employer] Address [address] [facility] [address] [place] [address] Care Team Providers Care Ground Instructor Basic Name Role Phone Baljeet Champagne MD Primary Care Prov ider Allergies No known active allergies Medications * This document contains information received from the source organization and may not represent a complete record from that organization. modafinil (Provigil) 100 MG tablet Take 1 tablet (100 mg) by mouth Once per day. 30 tablet 07/28/2023 Active DULoxetine (Cymbalta) [address] capsule Take 1 capsule (60 mg) by mouth Once per day. 30 capsule 1 07/28/2023 Active gabapentin (Neurontin) 300 MG capsule Take 1 capsule (300 mg) by mouth Once per day. 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, she used to take modafinil, will renew medication Facial abscess 07/28/2023 Chronic bilateral low back pain with bilateral s ciatica 07/28/2023 Insomnia due to other mental disorder 05/11/2023 Assessment & Plan (05/11/2023 8:29 PM EST): Patient was taking modafinil, will reorder 100mg dose, lifestyle changes reinforced Alcohol use disorder, severe, dependence 024 05/11/2023 Assessment & Plan (05/11/2023 8:31 PM EST): Patient was recently [facility], found with altered mental status and hyponatremia, patient following AA group through zoom meetings, refers not drinking anymore, she has been able to control herself more lately. Elevated liver enzymes 05/11/2023 Depression with anxiety 05/11/2023 05/11/19 24 Assessment & Plan (05/11/2023 8:32 PM EST): Will refer to therapist, she lost follow up with psych Weakness 05/11/2023 Assessment & Plan (05/11/2023 8:34 PM EST): Due to prolongued hospitalization and alcoholism patient has marked weakness, will send for home PT Encounters Date Type Department Care Team Description 04/22/2024 Orders Only GENERIC EXTERNAL DATA DEPARTMENT Provider, Generic External Data 04/08/2024 Telephone [facility] MED & PEDS [address] [place] [address] Baljeet Champagne MD from Last 3 Months Social History Tobacco Use Types Packs/Day Years Used Date Smoking Tobacco: Never Assessed Comments Unknown Sex and Gender Information Value Date Recorded Sex Assigned at Female 02/03/2022 10:36 AM EDT Legal Sex Female 10:36 AM EDT Gender Identity Female 02/03/2022 10:36 AM EDT Sexual Orientation Straight 02/03/2022 10 :36 AM EDT Last Filed Vital Signs Vital Sign Reading Time Taken Comments Blood Pressure 128/74 01/09/2022 12:10 AM EDT Pulse 84 03/26/2021 12:12 AM EST Temperature - - Respiratory Rate - - Oxygen Saturation - - Inhaled Oxygen Concentration - - Weight 99.9 kg (220 lb 3.2 oz) 03/26/2021 12:12 AM EST Height 162.6 cm (5' 4 ) 03/26/2021 12:12 AM EST Body Mass Index 37.8 03/26/2021 12:12 AM EST Plan of Treatment Health Maintenance Due Date Last Done Comments CT Colonography 1968 Colonoscopy 1968 Colorectal Cancer Screening 1968 Depression Screening 1968 FIT DNA/Cologuard 1968 FIT 1968 FOBT 1968 Lipid Panel 1968 SDOH Screening 1968 Sigmoidoscopy 1968 Pneumococcal Vaccine: Pediatrics (0 to 5 Years) and At-Risk Patients (6 to 49) Years) (1 of 2 - PCV) 1974 Alcohol/Substance Use Screening 1980 Tobacco Screening 1980 Hepatitis C Screening 1986 Hepatitis B Vaccines (1 of 3 - 19+ 3-dose series) 11/09/1987 Pneumococcal Vaccine: 50+ Years (1 of 2 - PCV) 11/09/1987 Mammogram 2008 Zoster Vaccines (1 of 2) 2018 DTaP/Tdap/Td Vaccines (3 - Td or Tdap) 06/28/2023 06/27/2013, 11/12/2010 COVID-19 Vaccine ( season) 2023 05/09/2022, 06/17/2021, 08/29/2020, Additional history exists Influenza Vaccine (#1) 2023 Pap Smear 03/26/2024 03/26/2021 Cervical Cancer Screening 03/26/2026 HPV/Cotest 03/26/2026 03/26/2021 RSV Patients and Patients Aged 60 years or older (1 - 1-dose 75+ series) 11/09/2043 HIV Screening Completed 06/24/2019 HIB Vaccines Aged Out No longer eligi ble based on patient's age to complete this topic HPV Vaccines Aged Out No longer eligi ble based on patient's age to complete this topic Hepatitis A Vaccines Aged Out No long er eligible based on patient's age to complete this topic IPV Vaccines Aged Out No longer eligi ble based on patient's age to complete this topic Meningococcal Vaccine Aged Out No kori mono eligible based on patient's age to complete this topic RSV under 20 months Aged Out No longe r eligible based on patient's age to complete this topic Rotavirus Vaccines Aged Out No longer eligible based on patient's age to complete this topic Procedures Procedure Name Priority Date/Time Associated Diagnosis Comments XR CHEST 1 VIEW Routine 04/22/2024 9:[address] HEAD WO CONTRAST Routine 04/22/2024 8 :56 AM EST DRUG MONITOR, PANEL 1, SCREEN, URINE Routine 04/22/2024 8:45 AM EST URINALYSIS, COMPLETE, WITH REFLEX TO CULTURE Routine 04/22/2024 8:45 AM EST SARS COV2/INFLUENZA A/B AND RSV RNA QL NAAT Routine 04/22/2024 8:45 AM EST THINPREP IMAGING PAP AND HPV MRNA E6/E7 WITH REFLEX TO HPV 16,18/45 Routine 03/26/2021 10:22 AM EST MAL HISTORICAL HIV AB/AG Routine 06/24/2019 2:12 PM EDT from Last 3 Months or Most Recently Relevant to Health Maintenance Results * XR Chest 1 View (04/22/2024 9:00 AM EST) Anatomical Region Laterality Modality Chest Radiographic Jaja ging 04/22/2024 9:00 AM EST Narrative 04/22/2024 9:17 AM EST ? [facility] ?[address] ?[place] [address] ?XRay Report ? Signed ? Patient: Parent,Beverley ?MR#: [id number] ? : 1970 ?Acct:[id number] ? Age/Sex: 53 / F ?ADM Date: 04/22/24 ? Loc: HO.ED ? Attending Dr: ? Ordering Physician: Waylon Tamez MD ?? Date of Service: 04/22/24 ?? Procedure(s): XR chest 1V ?? Accession Number(s): [id number] ? cc: Baljeet Champagne MD; Waylon Tamez MD ? EXAMINATION: ??XR CHEST 1 VIEW ? HISTORY: shortness of breath, right sided pain ? COMPARISON: Comparison is made with the prior examination dated ?? 04/06/2024. ? FINDINGS: ??A single AP portable view of the chest performed at 8:55 AM ?? is submitted. The patient is rotated to the left. There is linear ?? subsegmental atelectasis in the left lower lobe. The right lung is ?? clear. ??There is no pleural effusion, pneumothorax, or pulmonary ?? vascular congestion. ??The heart is normal in size. ??There is ?? degenerative disc disease of the spine. ? XR/XR chest 1V ?? IMPRESSION: ?? Linear subsegmental atelectasis in the left lower lobe. ? Electronically signed by: ??Dwaine Mahmood MD ??04/22/2024 09:14 AM EST ?? RP ? Dictated By: ?Dwaine Mahmood MD ? Signed By: ?<Electronically signed by Dwaine Mahmood MD in OV> ?04/22/24 0914 ? DD/ 0900 ? TD/TT: 04/22/24 0905 ? Four Slide Machine Setter: ? Procedure Note Edith, Image - 04/26/2024 [place] [address] XRay Report Signed Patient: Lore Mims#: [id number] : 1970Acct:[id number] Age/Sex: 53 / FADM Date: 04/22/24 Loc: HO.ED Attending Dr: Ordering Physician: Waylon Tamez MD Date of Service: 04/22/24 Procedure(s): XR chest 1V Accession Number(s): [id number] cc: Baljeet Champagne MD; Waylon Tamez MD EXAMINATION: XR CHEST 1 VIEW HISTORY: shortness of breath, right sided pain COMPARISON: Comparison is made with the prior examination dated 04/06/2024. FINDINGS: A single AP portable view of the chest performed at 8:55 AM is submitted. The patient is rotated to the left. There is linear subsegmental atelectasis in the left lower lobe. The right lung is clear. There is no pleural effusion, pneumothorax, or pulmonary vascular congestion. The heart is normal in size. There is degenerative disc disease of the spine. XR/XR chest 1V IMPRESSION: Linear subsegmental atelectasis in the left lower lobe. Electronically signed by: Dwaine Mahmood MD 04/22/2024 09:14 AM EST RP Dictated By: Dwaine Mahmood MD Signed By: <Electronically signed by Dwaine Mahmood MD in OV> 04/22/24913 DD/ 9 TD/TT: 04/22/24904 Four Slide Machine Setter: [facility] External Provider IMG XR PROCEDURES Edited Result - Final * CT Head w/o Contrast (04/22/2024 8:56 AM EST) Anatomical Region Laterality Modality Head, Neck Computed Tomogra phy 04/22/2024 8:56 AM EST Narrative 04/22/2024 9:24 AM EST ? [facility] ?[address] ?[place] [address] ? CT Scan Report ? Signed ? Patient: Parent,Beverley ?MR#: [id number] ? : 1970 ?Acct:[id number] ? Age/Sex: 53 / F ?ADM Date: 04/22/24 ? Loc: HO.ED ? Attending Dr: ? Ordering Physician: Waylon Tamez MD ?? Date of Service: 04/22/24 ?? Procedure(s): CT head/brain wo IV con ?? Accession Number(s): [id number] ? cc: Baljeet Champagne MD; Waylon Tamez MD ? Report Number: ?? [id number]: Total DLP = ??762.00 mGy-cm ?? EXAMINATION: CT HEAD WITHOUT IV CONTRAST ? HISTORY: trauma, hit head, headache. ? TECHNIQUE: ? Unenhanced helical CT of the head was performed per standard ?? departmental protocol. Coronal and sagittal reformats of the head were ?? also evaluated. One or more of the following techniques was used for ?? dose reduction: Automated exposure control, adjustment of the mA and/or ?? kV according to patient size, use of iterative reconstruction technique. ? DLP: 762 mGy-cm ? COMPARISON: Comparison is made with the prior examination dated ?? 10/13/2023. ? FINDINGS: ? BRAIN: ??There is mild prominence of the ventricular system and cortical ?? sulci, consistent with atrophy. Periventricular and subcortical white ?? matter hypodensities are noted which are nonspecific, but often seen in ?? the setting of small vessel ischemic disease. ??There is no mass effect ?? or midline shift. ??No intra- or extra-axial fluid collections are ?? identified. ? SINUSES: The visualized paranasal sinuses are clear. ??The mastoid air ?? cells and middle ear cavities are well pneumatized. ? ORBITS: The visualized orbits are unremarkable. ? BONES/SOFT TISSUES: The extracranial soft tissues are unremarkable. The ?? calvarium is intact. No suspicious lytic or sclerotic lesions. ? CT/CT head/brain wo IV con ?? IMPRESSION: ?? No acute intracranial abnormality. ? Electronically signed by: ??Dwaine Mahmood MD ??04/22/2024 09:22 AM EST ? Dictated By: ?Dwaine Mahmood MD ? Signed By: ?<Electronically signed by Dwaine Mahmood MD in OV> ?04/22/24 0922 ? DD/ 0856 ? TD/TT: 04/22/24 0914 ? Four Slide Machine Setter: ? Procedure Note Edith, Image - 04/26/[address] [place] [address] [address] Scan Report Signed Patient: Lore Mims#: [id number] : 1970Acct:[id number] Age/Sex: 53 / FADM Date: 04/22/24 Loc: HO.ED Attending Dr: Ordering Physician: Waylon Tamez MD Date of Service: 04/22/24 Procedure(s): CT head/brain wo IV con Accession Number(s): [id number] cc: Baljeet Champagne MD; Waylon Tamez MD Report Number: [id number]: Total DLP = 762.00 mGy-cm EXAMINATION: CT HEAD WITHOUT IV CONTRAST HISTORY: trauma, hit head, headache. TECHNIQUE: Unenhanced helical CT of the head was performed per standard departmental protocol. Coronal and sagittal reformats of the head were also evaluated. One or more of the following techniques was used for dose reduction: Automated exposure control, adjustment of the mA and/or kV according to patient size, use of iterative reconstruction technique. DLP: 762 mGy-cm COMPARISON: Comparison is made with the prior examination dated 10/13/2023. FINDINGS: BRAIN: There is mild prominence of the ventricular system and cortical sulci, consistent with atrophy. Periventricular and subcortical white matter hypodensities are noted which are nonspecific, but often seen in the setting of small vessel ischemic disease. There is no mass effect or midline shift. No intra- or extra-axial fluid collections are identified. SINUSES: The visualized paranasal sinuses are clear. The mastoid air cells and middle ear cavities are well pneumatized. ORBITS: The visualized orbits are unremarkable. BONES/SOFT TISSUES: The extracranial soft tissues are unremarkable. The calvarium is intact. No suspicious lytic or sclerotic lesions. CT/CT head/brain wo IV con IMPRESSION: No acute intracranial abnormality. Electronically signed by: Dwaine Mahmood MD 04/22/2024 09:22 AM EST Dictated By: Dwaine Mahmood MD Signed By: <Electronically signed by Dwaine Mahmood MD in OV> 04/22/24 0922 DD/ 0856 TD/TT: 04/22/24 0914 Four Slide Machine Setter: [facility] External Provider IMG CT PROCEDURES Edited Result - Final * (ABNORMAL) Urinalysis, Complete, with Reflex to Culture (04/22/2024 8:45 AM EST) Color Urine Yellow [facility] Appearance Urine Clear [facility] PH 7.0 5.0 - 9.0 [facility] Glucose Urine UA Negative Negative mg/dL [facility] Urine Blood Negative Negative [facility] Specific [place] - Urine <=1.005 1.005 - 1.025 [facility] Urine Protein Negative Neg-Trace mg/dL [facility] Urine Ketones Negative Negative mg/dL [facility] Nitrite Urine Negative Negative [facility] Leukocyte Esterase Urine Trace(A) Negative [facility] RBC Urine 0-2 0 - 2 /HPF [facility] Urine WBC 0-5 0 - 5 /HPF [facility] Urine Squamous Epithelial Cell 3-5 0 - 2 /HPF [facility] Urine Bacteria None Seen None Seen [facility] Hyaline Casts, Urine 0-2 0 - 2 /LPF [facility] 04/22/2024 8:45 AM EST 04/22/2024 8:49 AM EST Narrative [facility] - 04/22/2024 8:56 AM EST [id number], Clean Catch us Generic External Data Provider LAB URINE ORDERAB LES Final Result [facility] [address] [place] [phone] [phone] * SARS-CoV-2 RNA, Influenza A/B, and RSV RNA, Ql NAAT (04/22/2024 8:45 AM EST) Influenza A PCR NEGATIVE Negative [facility] Influenza B PCR NEGATIVE Negative [facility] Resp Syncy Virus RNA Qual PCR NEGATIVE Negative [facility] SARS COV2 PCR NEGATIVE Negative [facility] Comment:All test results mus t be correlated with clinical findings.Negative results do not preclude SARS-CoV2, influenza Avirus, influenza B virus and/or RSV infectionand should not be used as the sole basis for treatment orother patient management decisions. Negative results must becombined with clinical observations, patient history, andepidemiological information.This test has not been evaluated for monitoring treatment ofinfection.This test has been authorized by the FDA under an EmergencyUse Authorization (EUA) for use by authorized laboratories.Testing performed on the [employer] utilizingreal-time RT-PCR.All SARS CoV2 and positive influenza A/B results arereported to [facility]. 04/22/2024 8:45 AM EST 04/22/2024 8:49 AM EST us Generic External Data Provider LAB MICROBIOLOGY - GENERAL ORDERABLES Final Result [facility] [address] [place] [phone] [phone] * (ABNORMAL) Drug Monitoring, Panel 1, Screen, Urine (04/22/2024 8:45 AM EST) Opiate Screen Urine Not Detected Not Detect [facility] Comment:Opiate cut-off is 30 0 ng/mL.Positive results are unconfirmed and should not be used fornon-medical purposes. Barbiturates, Urine Not Detected Not Detect [facility] Comment:Barbiturate cut-off is 200 ng/mL.Positive results are unconfirmed and should not be used fornon-medical purposes. Phencyclidine Screen Urine Not Detected Not Detect [facility] Comment:Phencyclidine cut-of f is 25 ng/mL.Positive results are unconfirmed and should not be used fornon-medical purposes. Amphetamine Screen Urine Not Detected Not Detect [facility] Comment:Amphetamine cut-off is 1000 ng/mL.Positive results are unconfirmed and should not be used fornon-medical purposes. Benzodiazepines Screen Urine POSITIVE(A) Not Detect [facility] Comment:Benzodiazepine cut-o ff is 200 ng/mL.Positive results are unconfirmed and should not be used fornon-medical purposes. Cocaine Screen Urine Not Detected Not Detect [facility] Comment:Cocaine cut-off is 3 00 ng/mL.Positive results are unconfirmed and should not be used fornon-medical purposes. Cannabinoid Screen Urine Not Detected Not Detect [facility] Comment:Cannabinoid cut-off is 50 ng/mL.Positive results are unconfirmed and should not be used fornon-medical purposes. Methadone Screen, Urine Not Detected Not Detect ng/mL [facility] Comment:Methadone cut-off is 300 ng/mL.Positive results are unconfirmed and should not be used fornon-medical purposes. FENTANYL URINE Not Detected Not Detect [facility] Comment:Fentanyl cut-off is 1 ng/mL.Positive results are unconfirmed and should not be used fornon-medical purposes. Oxycodone Urine Screen Not Detected Not Detect ng/mL [facility] Comment:Oxycodone cut-off is 100 ng/mL.Positive results are unconfirmed and should not be used fornon-medical purposes. Buprenorphine Screen Positive(A) Not Detect ng/mL [facility] Comment:Buprenorphine cut-of f is 5 ng/mL.Positive results are unconfirmed and should not be used fornon-medical purposes. 04/22/2024 8:45 AM EST 04/22/2024 8:52 AM EST us Generic External Data Provider LAB URINE ORDERAB LES Final Result [facility] [address] [place] [phone] * THINPREP TIS PAP AND HPV mRNA E6/E7 WITH REFLEX TO HPV 16,18/45 (03/26/2021 10:22 AM EST) Clinical Information: None given [facility] COMMENT SEE COMMENT [facility] Comment: EXPLANATORY NOTE: ? The Pap is a screening test for cervical cancer. It is ?? not a diagnostic test and is subject to false negative ?? and false positive results. It is most reliable when a ?? satisfactory sample, regularly obtained, is submitted ?? with relevant clinical findings and history, and when ?? the Pap result is evaluated along with historic and ?? current clinical information. ?? COMMENT: This Pap test has been evaluated with computer assisted technology. [facility] Industrial Fabric Cutter: SEE COMMENT [facility] Comment: NHI DIAL(ASCP) CT screening location: [address] ??[id number] HPV nRNA E6/E7 Not Detected Not Detected [facility] Comment: Methodology: [employer] Photographer-Mediated Amplification This assay detects E6/E7 viral messenger RNA (mRNA) from 14 high-risk HPV types (16,18,31,33,35,39,45,51,52,56,58,59,66,68). ? The analytical performance characteristics of this assay have been determined by [employer]. The modifications have not been cleared or approved by the FDA. This assay has been validated pursuant to the CLIA regulations and is used for clinical purposes. ?? For additional information, please refer to http://education.Exosect/faq/TSN117p8 (This link if provided for information/ educational purposes only.) Interpretation/Re sult: Negative for intraepithelial lesion or malignancy. [facility] LMP: NONE GIVEN [facility] Prev. BX: NONE GIVEN [facility] Prev. PAP: NONE GIVEN [facility] SOURCE: None given [facility] Statement Of Adequacy: SEE COMMENT [facility] Comment: Satisfactory for evaluation. Endocervical/transformation zone component present. Age and/or menstrual status not provided 03/26/2021 10:2 2 AM EST Moni Medina [facility] LAB PATHOLOGY ORDERABLES Final Result [facility] [address] * HIV AB/AG (06/24/2019 2:12 PM EDT) HIV AG/AB NONREACTIVE NR [facility] Comment: HIV-1 p24 Ag and/or HIV-1/HIV-2 Ab not detected. ?? A test result that is nonreactive does not exclude the possibility of exposure to or infection with HIV-1 and/or HIV-2. Nonreactive results in this assay for individuals with prior exposure to HIV-1 and/or HIV-2 may be due to antigen and antibody levels that are below the limit of detection of this assay. ?? The [employer] Customer Support Agent HIV Ag/Ab Combo assay result and supplemental assay results should be interpreted in conjunction with the patient's clinical presentation, history and other laboratory results. ??If the results are inconsistent with clinical evidence, additional testing is suggested to confirm the result. 06/24/2019 2:12 PM EDT us Baljeet Perry MD HISTORICAL/NON ORD ERABLE LABS Final Result [facility] [address] from Last 3 Months or Most Recently Relevant to Health Maintenance Insurance [address] [place], [place] [id number] C[employer] Care Teams Ground Instructor Basic Relationship Specialty Start Date End Date Baljeet Champagne MD [address] [place] [phone] PCP - General Internal Medicine 06/24/19
--- OUTSIDE RECORDS SUMMARY | 2024-05-09 16:24 | XMS_ITS | Encounter Summary ---
Author Organization [employer] Address [address] [facility] [address] [place] [address] Care Team Providers Care Breaker Oiler Name Role Phone Baljeet Champagne MD Primary Care Prov ider Reason for Visit * Reason Onset Date Comments FYI 10/07/2023 Encounter Details Date Type Department Care Team (Late st Contact Info) Description 10/07/2023 Telephone [facility] MED[facility] [address] [place] [address] Baljeet Champagne MD [address] [place] [address] FYI Social History Tobacco Use Types Packs/Day Years Used Date Smoking Tobacco: Never Assessed Comments Unknown Sex and Gender Information Value Date Recorded Sex Assigned at Female 02/03/2022 10:36 AM EDT Legal Sex Female 10:36 AM EDT Gender Identity Female 02/03/2022 10:36 AM EDT Sexual Orientation Straight 02/03/2022 10 :36 AM EDT documented as of this encounter Miscellaneous Notes * Telephone Encounter - Kimberly Figueroa - 10/07/2023 1:10 PM EDT Tc from [facility] with [facility] calling to inform PCP pt admission date have been move to 10/13 as pt request. Any questions contact Real at [phone] documented in this encounter Plan of Treatment Not on file documented as of this encounter Visit Diagnoses Not on filedocumented in this encounter Care Teams Breaker Oiler Relationship Specialty Start Date End Date DavisBaljeet Oscar MD [address] [place] [phone] PCP - General Internal Medicine 06/24/19 documented as of this encounter
--- OUTSIDE RECORDS SUMMARY | 2024-05-09 16:25 | XMS_ITS | Encounter Summary ---
Author Organization [employer] Address [address] [place] [address] [address] [place] [address] Care Team Providers Care Colorectal Surgeon Name Role Phone Baljeet Champagne MD Primary Care Prov ider Encounter Details Date Type Department Care Team (Late st Contact Info) Description 05/05/2023 Abstract [facility] MED & PEDS [address] [place] [address] Baljeet Champagne MD [address] [place] [address] Social History Tobacco Use Types Packs/Day Years [...] on filedocumented in this encounter Care Teams Colorectal Surgeon Relationship Specialty Start Date End Date Baljeet Champagne MD [address] [place] [address] PCP - General Internal Medicine 06/24/19 documented as of this encounter
--- OUTSIDE RECORDS SUMMARY | 2024-05-09 16:25 | XMS_ITS | Clinical Summary ---
Author Organization [facility] Facility Address [address] [address] Care Team Providers Care Signal Maintenance Technician Name Role Phone Unavailable Primary Care Provider Unavailabl e Social History Tobacco Use Types Packs/Day Years Used Date Smoking Tobacco: Never Assessed Comments Unknown Sex and Gender Information Value Date Recorded Sex Assigned at Not on file Legal Sex Female 8:30 AM EST Gender Identity Not on file Sexual Orientation Not on file Plan of Treatment Health Maintenance Due Date Last Done Comments Breast Cancer Screening 1970 Hepatitis B Vaccine (1 of 3 - 19+ 3-dose series) 11/09/1987 Colorectal Cancer Screening: Annual FOBT 2017 Colorectal Cancer Screening: Colonoscopy 2017 Colorectal Cancer Screening: Sigmoidoscopy 2017 Influenza Vaccine (#1) 2023 Pneumococcal Vaccine: Pediat rics (0 to 5 Years) and At-Risk Patients (6 to 64 Years) Aged Out No longer eligible b ased on patient's age to complete this topic Insurance [facility]
--- OUTSIDE RECORDS SUMMARY | 2024-05-09 16:25 | XMS_ITS | Encounter Summary ---
Author Organization [employer] Address [address] [place] [address] [address] [address] Care Team Providers Care Beekeeper Name Role Phone Baljeet Champagne MD Primary Care Prov ider Reason for Visit * Reason Onset Date Comments Appointment Request 07/03/2022 Encounter Details Date Type Department Care Team (Late st Contact Info) Description 07/03/2022 Telephone [facility] CH[facility] MED & PEDS [address] [place] [address] Baljeet Champagne MD [address] [place] [address] Appointment Request Social History Tobacco Use Types Packs/Day Years [...] on filedocumented in this encounter Care Teams Beekeeper Relationship Specialty Start Date End Date Baljeet Champagne MD [address] [place] [address] PCP - General Internal Medicine 06/24/19 documented as of this encounter
--- OUTSIDE RECORDS SUMMARY | 2024-05-09 16:25 | XMS_ITS | Encounter Summary ---
Author Organization [employer] Address [address] [facility] 7t [place] [address] Care Team Providers Care Protection Analyst Name Role Phone Baljeet Champagne MD Primary Care Prov ider Encounter Details Date Type Department Care Team (Late st Contact Info) Description 04/22/2024 Orders Only GENERIC EXTERNAL DATA DEPARTMENT Provider, Generic External Data Social History Tobacco Use Types Packs/Day Years [...] on file documented as of this encounter Procedures Procedure Name Priority Date/Time Associated Diagnosis Comments XR CHEST 1 VIEW Routine 04/22/2024 9:[address] HEAD WO CONTRAST Routine 04/22/2024 8 :56 AM EST URINALYSIS, COMPLETE, WITH REFLEX TO CULTURE Routine 04/22/2024 8:45 AM EST SARS COV2/INFLUENZA A/B AND RSV RNA QL NAAT Routine 04/22/2024 8:45 AM EST DRUG MONITOR, PANEL 1, SCREEN, URINE Routine 04/22/2024 8:45 AM EST documented in this encounter Results * XR Chest 1 View (04/22/2024 9:00 AM EST) Anatomical Region Laterality Modality Chest Radiographic Jaja ging 04/22/2024 9:00 AM EST Narrative 04/22/2024 9:17 AM EST ? [facility] ?[address] ?[place] [address] ?XRay Report ? Signed ? Patient: Parent,Beverley ?MR#: [id number] ? : 1970 ?Acct:[id number] ? Age/Sex: 53 / F ?ADM Date: 04/22/24 ? Loc: HO.ED ? Attending Dr: ? Ordering Physician: Waylon Tamez MD ?? Date of Service: 04/22/24 ?? Procedure(s): XR chest 1V ?? Accession Number(s): [id number] ? cc: Baljeet Champagne MD; Waylon Tamez [...] DD/ 0900 ? TD/TT: 04/22/24 0905 ? Caddy: ? Procedure Note Umer Sharma - 04/26/[address] [place] [address] XRay Report Signed Patient: Lore Mims#: [id number] : 1970Acct:[id number] Age/Sex: 53 / FADM Date: 04/22/24 Loc: HO.ED Attending Dr: Ordering Physician: Waylon Tamez MD Date of Service: 04/22/24 Procedure(s): XR chest 1V Accession Number(s): [id number] cc: Baljeet Champagne MD; Waylon Tamez MD [...] signed by Dwaine Mahmood MD in OV> 04/22/2414 DD/ 09 TD/TT: 04/22/24 0905 Caddy: [facility] External Provider IMG XR PROCEDURES Edited Result - Final * CT Head w/o Contrast (04/22/2024 8:56 AM EST) Anatomical Region Laterality Modality Head, Neck Computed Tomogra phy 04/22/2024 8:56 AM EST Narrative 04/22/2024 9:24 AM EST ? [facility] ?[address] ?[place] [address] ? CT Scan Report ? Signed ? Patient: Parent,Beverley ?MR#: [id number] ? : 1970 ?Acct:[id number] ? Age/Sex: 53 / F ?ADM Date: 01/17/25 ? Loc: HO.ED ? Attending Dr: ? Ordering Physician: Waylon Tamez MD ?? Date of Service: 04/22/24 ?? Procedure(s): CT head/brain wo IV con ?? Accession Number(s): [id number] ? cc: Baljeet Champagne MD; Waylon Tamez MD ? Report Number: ?? [id number]: Total DLP = ??762.00 mGy-cm ?? EXAMINATION: [...] ??Dwaine Mahmood MD ??04/22/2024 09:22 AM EST ?? RP ? Dictated By: ?Dwaine Mahmood MD ? Signed By: ?<Electronically signed by Dwaine Mahmood MD in OV> ?04/22/24 09 ? DD/ 0856 ? TD/TT: 04/22/24 0914 ? Caddy: ? Procedure Note Donsuraj, Image - 04/26/[address] [address] [address] Scan Report Signed Patient: Lore Mims#: [id number] : 1970Acct:[id number] Age/Sex: 53 / FADM Date: 04/22/24 Loc: HO.ED Attending Dr: Ordering Physician: Waylon Tamez MD Date of Service: 04/22/24 Procedure(s): CT head/brain wo IV con Accession Number(s): [id number] cc: Baljeet Champagne MD; Waylon Tamez MD Report Number: [id number]: Total DLP = 762.00 mGy-cm EXAMINATION: CT [...] signed by Dwaine Mahmood MD in OV> 04/22/24921 DD/ TD/TT: 04/22/24913 Caddy: [facility] External Provider IMG CT PROCEDURES Edited Result - Final * SARS-CoV-2 RNA, Influenza A/B, and RSV RNA, Ql NAAT (04/22/2024 8:45 AM EST) Influenza A PCR NEGATIVE Negative [facility] Influenza B PCR NEGATIVE Negative [facility] Resp Syncy Virus RNA Qual PCR NEGATIVE Negative [facility] SARS COV2 PCR NEGATIVE Negative [facility] Comment:All test results mus t [...] use by authorized laboratories.Testing performed on the [employer] GeneXpert utilizingreal-time RT-PCR.All SARS CoV2 and positive influenza A/B results arereported to [facility]. 04/22/2024 8:45 AM EST 04/22/2024 8:49 AM EST Generic External Data Provider LAB MICROBIOLOGY - GENERAL ORDERABLES Final Result [facility] [address] [place] [phone] * (ABNORMAL) Drug Monitoring, Panel 1, Screen, Urine (04/22/2024 8:45 AM EST) Opiate Screen Urine Not Detected Not Detect [facility] Comment:Opiate cut-off is 30 0 ng/mL.Positive results are unconfirmed and should not be used fornon-medical purposes. Barbiturates, Urine Not Detected Not Detect [facility] Comment:Barbiturate cut-off is 200 ng/mL.Positive results are unconfirmed and should not be used fornon-medical purposes. Phencyclidine Screen Urine Not Detected Not Detect [facility] Comment:Phencyclidine cut-of f is 25 ng/mL.Positive results are unconfirmed and should not be used fornon-medical purposes. Amphetamine Screen Urine Not Detected Not Detect [facility] Comment:Amphetamine cut-off is 1000 ng/mL.Positive results are unconfirmed and should not be used fornon-medical purposes. Benzodiazepines Screen Urine POSITIVE(A) Not Detect [facility] Comment:Benzodiazepine cut-o ff is 200 ng/mL.Positive results are unconfirmed and should not be used fornon-medical purposes. Cocaine Screen Urine Not Detected Not Detect [facility] Comment:Cocaine cut-off is 3 00 ng/mL.Positive results are unconfirmed and should not be used fornon-medical purposes. Cannabinoid Screen Urine Not Detected Not Detect [facility] Comment:Cannabinoid cut-off is 50 ng/mL.Positive results are unconfirmed and should not be used fornon-medical purposes. Methadone Screen, Urine Not Detected Not Detect ng/mL [facility] Comment:Methadone cut-off is 300 ng/mL.Positive results are unconfirmed and should not be used fornon-medical purposes. FENTANYL URINE Not Detected Not Detect [facility] Comment:Fentanyl cut-off is 1 ng/mL.Positive results are unconfirmed and should not be used fornon-medical purposes. Oxycodone Urine Screen Not Detected Not Detect ng/mL [facility] Comment:Oxycodone cut-off is 100 ng/mL.Positive results are unconfirmed and should not be used fornon-medical purposes. Buprenorphine Screen Positive(A) Not Detect ng/mL [facility] Comment:Buprenorphine cut-of f is 5 ng/mL.Positive results are unconfirmed and should not be used fornon-medical purposes. 04/22/2024 8:45 AM EST 04/22/2024 8:52 AM EST us Generic External Data Provider LAB URINE ORDERAB LES Final Result Performing Organization Address City/[facility]/ZIP Co de Phone Number [facility] [address] [place] [phone] * (ABNORMAL) Urinalysis, Complete, with Reflex to Culture (04/22/2024 8:45 AM EST) Color Urine Yellow [facility] Appearance Urine Clear [facility] PH 7.0 5.0 - 9.0 [facility] Glucose Urine UA Negative Negative mg/dL [facility] Urine Blood Negative Negative [facility] Specific [place] - Urine <=1.005 1.005 - 1.025 [facility] Urine Protein Negative Neg-Trace mg/dL [facility] Urine Ketones Negative Negative mg/dL [facility] Nitrite Urine Negative Negative [facility] Leukocyte Esterase Urine Trace(A) Negative [facility] RBC Urine 0-2 0 - 2 /HPF [facility] Urine WBC 0-5 0 - 5 /HPF [facility] Urine Squamous Epithelial Cell 3-5 0 - 2 /HPF [facility] Urine Bacteria None Seen None Seen [facility] Hyaline Casts, Urine 0-2 0 - 2 /LPF [facility] 04/22/2024 8:45 AM EST 04/22/2024 8:49 AM EST Narrative [facility] - 04/22/2024 8:56 AM EST [id number], Clean Catch us Generic External Data Provider LAB URINE ORDERAB LES Final Result Performing Organization Address City/[facility]/ZIP Co de Phone Number [facility] [address] [place] [address] [phone] documented in this encounter Visit Diagnoses Not on filedocumented in this encounter Care Teams Protection Analyst Relationship Specialty Start Date End Date Baljeet Champagne MD [address] [place] [phone] PCP - General Internal Medicine 06/24/19 documented as of this encounter
== END 2024-05-09 15:14 | disposition home or self-care (01) ==
PROVIDERS: Emergency Provider Emergency Medicine; PCP Internal Medicine
DX: S30.0XXA Contusion of lower back and pelvis, initial encounter (principal); S30.1XXA Contusion of abdominal wall, initial encounter; M79.10 Myalgia, unspecified site; F10.20 Alcohol dependence, uncomplicated; Y90.9 Presence of alcohol in blood, level not specified; W19.XXXA Unspecified fall, initial encounter; Y93.9 Activity, unspecified; Y92.009 Unspecified place in unspecified non-institutional (private) residence as the place of occurrence of the external cause; Y99.8 Other external cause status; Z87.891 Personal history of nicotine dependence; Z79.899 Other long term (current) drug therapy
CPT/HCPCS: 99283; 99284

== ENCOUNTER 2024-05-10 08:45 | Inpatient (IN) | payer BC, MEDICAID, SELFPAY ==
[2024-05-10] VITALS (7 sets, daily range): BP systolic 103–172; BP diastolic 61–101; PULSE 91–112; RESP 16–20; TEMP 36.2–37.7; O2SAT 94–99; BMI 35.4; BMI 37.7
--- NOTE | 2024-05-10 09:19 | PC.NURSE ---
requesting rehab and detox, claims that she cannot walk and has no help at home
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
--- NOTE | 2024-05-10 09:23 | ECG_ITS ---
Test Reason : ALCHOOL WITHDRAWAL Blood Pressure : */* mmHG Vent. Rate : 106 BPM Atrial Rate : 106 BPM P-R Int : 128 ms QRS Dur : 66 ms QT Int : 364 ms P-R-T Axes : 38 7 -22 degrees QTcB Int : 483 ms Sinus tachycardia Nonspecific ST and T wave abnormality Abnormal ECG When compared with ECG of 22-Apr-2024 07:15, ST now depressed in Anterior leads Nonspecific T wave abnormality now evident in Anterior leads Referred By: Waylon Tamez Electronically Signed By: Abiodun Branch
[2024-05-10] MEDS: chlordiazePOXIDE HCl 25 MG CAPSULE PO (09:31)
--- OUTSIDE RECORDS SUMMARY | 2024-05-10 09:49 | XMS_ITS | Encounter Summary ---
Author Organization [employer] Address [address] [place] [address] [address] [address] Care Team Providers Care Candy Cutter Hand Name Role Phone Baljeet Champagne MD Primary Care Prov ider Reason for Visit * Reason Onset Date Comments Appointment Request 07/03/2022 Encounter Details Date Type Department Care Team (Late st Contact Info) Description 07/03/2022 Telephone [facility] CHC MED & PEDS [address] [place] [address] Baljeet Champagne MD [address] [place] [address] Appointment Request Social History Tobacco Use Types [...] on filedocumented in this encounter Care Teams Candy Cutter Hand Relationship Specialty Start Date End Date Baljeet Champagne MD [address] [place] [address] PCP - General Internal Medicine 06/24/19 documented as of this encounter
--- OUTSIDE RECORDS SUMMARY | 2024-05-10 09:49 | XMS_ITS | Encounter Summary ---
Author Organization [employer] Address [address] [place] [address] [address] [address] Care Team Providers Care Senior Business Intelligence Analyst Name Role Phone Baljeet Champagne MD Primary Care Prov ider Encounter Details Date Type Department Care Team (Late st Contact Info) Description 05/05/2023 Abstract [facility] CHC MED & PEDS [address] [place] [address] Baljeet Champagne MD [address] [place] [address] Social History Tobacco Use Types Packs/Day Years [...] on filedocumented in this encounter Care Teams Senior Business Intelligence Analyst Relationship Specialty Start Date End Date Baljeet Champagne MD [address] [place] [address] PCP - General Internal Medicine 06/24/19 documented as of this encounter
--- OUTSIDE RECORDS SUMMARY | 2024-05-10 09:49 | XMS_ITS | Encounter Summary ---
Author Organization [employer] Address [address] [place] [address] [address] [place] [address] Care Team Providers Care Maintenance And Operations Supervisor Name Role Phone Baljeet Champagne MD Primary Care Prov ider Encounter Details Date Type Department Care Team (Late st Contact Info) Description 08/13/2023 Orders Only [facility] CHC MED & PEDS [address] [place], [place] [phone] Vanessa George LPN Social History Tobacco Use [...] on filedocumented in this encounter Care Teams Maintenance And Operations Supervisor Relationship Specialty Start Date End Date Baljeet Champagne MD [address] [place] [address] PCP - General Internal Medicine 06/24/19 documented as of this encounter
--- OUTSIDE RECORDS SUMMARY | 2024-05-10 09:49 | XMS_ITS | Clinical Summary ---
Author Organization [employer] Address [address] [facility] 7t [place] [address] Care Team Providers Care Compliance Representative Dealer Name Role Phone Baljeet Champagne MD Primary [...] PM EST): Patient was recently discharged [facility], found with altered mental status and [...] DEPARTMENT Provider, Generic External Data 04/08/2024 Telephone [facility] MED & PEDS [address] [place] [address] Baljeet Champagne MD from Last 3 Months [...] EST Narrative 04/22/2024 9:17 AM EST ? [facility] ?[address] ?[place] [address] ?XRay Report ? Signed ? Patient: Parent,Beverley ?MR#: [id number] ? : 1970 ?Acct:[id number] ? Age/Sex: 53 / F ?ADM Date: 04/22/24 ? Loc: HO.ED ? Attending Dr: ? Ordering Physician: Waylon Tamez MD ?? Date of Service: 04/22/24 ?? Procedure(s): XR chest 1V ?? Accession Number(s): [id number] ? cc: Baljeet Champagne MD; Waylon Tamez [...] DD/ 0900 ? TD/TT: 04/22/24 0905 ? Central Lab Technician: ? Procedure Note Edith, Image - 04/26/2024 [place] [address] XRay Report Signed Patient: Lore Mims#: [id number] : 1970Acct:[id number] Age/Sex: 53 / FADM Date: 04/22/24 Loc: HO.ED Attending Dr: Ordering Physician: Waylon Tamez MD Date of Service: 04/22/24 Procedure(s): XR chest 1V Accession Number(s): [id number] cc: Baljeet Champagne MD; Waylon Tamez MD [...] in OV> 04/22/24913 DD/ 9 TD/TT: 04/22/24904 Central Lab Technician: [facility] External Provider IMG XR PROCEDURES Edited Result - Final * CT Head w/o Contrast (04/22/2024 8:56 AM EST) Anatomical Region Laterality Modality Head, Neck Computed Tomogra phy 04/22/2024 8:56 AM EST Narrative 04/22/2024 9:24 AM EST ? [facility] ?[address] ?[place] [address] ? CT Scan Report ? Signed ? Patient: Parent,Beverley ?MR#: [id number] ? : 1970 ?Acct:[id number] ? Age/Sex: 53 / F ?ADM Date: 04/22/24 ? Loc: HO.ED ? Attending Dr: ? Ordering Physician: Waylon Tamez MD ?? Date of Service: 04/22/24 ?? Procedure(s): CT head/brain wo IV con ?? Accession Number(s): [id number] ? cc: Baljeet Champagne MD; Waylon Tamez MD ? Report Number: ?? [id number]: Total DLP = ??762.00 mGy-cm ?? EXAMINATION: [...] DD/ 0856 ? TD/TT: 04/22/24 0914 ? Central Lab Technician: ? Procedure Note Edith, Image - 04/26/[address] [place] [address] [address] Scan Report Signed Patient: Lore Mims#: [id number] : 1970Acct:[id number] Age/Sex: 53 / FADM Date: 04/22/24 Loc: HO.ED Attending Dr: Ordering Physician: Waylon Tamez MD Date of Service: 04/22/24 Procedure(s): CT head/brain wo IV con Accession Number(s): [id number] cc: Baljeet Champagne MD; Waylon Tamez MD Report Number: [id number]: Total DLP = 762.00 mGy-cm EXAMINATION: CT [...] 04/22/24 0922 DD/ 0856 TD/TT: 04/22/24 0914 Central Lab Technician: [facility] External Provider IMG CT PROCEDURES Edited Result - Final * (ABNORMAL) Urinalysis, Complete, with Reflex to Culture (04/22/2024 8:45 AM EST) Color Urine Yellow [facility] Appearance Urine Clear [facility] PH 7.0 5.0 - 9.0 [facility] Glucose Urine UA Negative Negative mg/dL [facility] Urine Blood Negative Negative [facility] Specific [place] - Urine <=1.005 1.005 - 1.025 [facility] Urine Protein Negative Neg-Trace mg/dL [facility] Urine Ketones Negative Negative mg/dL [facility] Nitrite Urine Negative Negative [facility] Leukocyte Esterase Urine Trace(A) Negative [facility] RBC Urine 0-2 0 - 2 /HPF [facility] Urine WBC 0-5 0 - 5 /HPF [facility] Urine Squamous Epithelial Cell 3-5 0 - 2 /HPF [facility] Urine Bacteria None Seen None Seen [facility] Hyaline Casts, Urine 0-2 0 - 2 /LPF [facility] 04/22/2024 8:45 AM EST 04/22/2024 8:49 AM EST Narrative [facility] - 04/22/2024 8:56 AM EST [id number], [employer] Generic External Data Provider LAB URINE ORDERAB LES Final Result [facility] [address] [place] [phone] [phone] * SARS-CoV-2 RNA, Influenza A/B, and RSV RNA, Ql NAAT (04/22/2024 8:45 AM EST) Influenza A PCR NEGATIVE Negative [facility] Influenza B PCR NEGATIVE Negative [facility] Resp Syncy Virus RNA Qual PCR NEGATIVE Negative [facility] SARS COV2 PCR NEGATIVE Negative [facility] Comment:All test results mus t [...] use by authorized laboratories.Testing performed on the [employer]pert utilizingreal-time RT-PCR.All SARS CoV2 and positive influenza A/B results arereported to [facility]. 04/22/2024 8:45 AM EST 04/22/2024 8:49 AM EST us Generic External Data Provider LAB MICROBIOLOGY - GENERAL ORDERABLES Final Result [facility] [address] [place] [address] [phone] * (ABNORMAL) Drug Monitoring, Panel 1, Screen, Urine (04/22/2024 8:45 AM EST) Opiate Screen Urine Not Detected Not Detect [facility] Comment:Opiate cut-off is 30 0 ng/mL.Positive results are unconfirmed and should not be used fornon-medical purposes. Barbiturates, Urine Not Detected Not Detect [facility] Comment:Barbiturate cut-off is 200 ng/mL.Positive results are unconfirmed and should not be used fornon-medical purposes. Phencyclidine Screen Urine Not Detected Not Detect [facility] Comment:Phencyclidine cut-of f is 25 ng/mL.Positive results are unconfirmed and should not be used fornon-medical purposes. Amphetamine Screen Urine Not Detected Not Detect [facility] Comment:Amphetamine cut-off is 1000 ng/mL.Positive results are unconfirmed and should not be used fornon-medical purposes. Benzodiazepines Screen Urine POSITIVE(A) Not Detect [facility] Comment:Benzodiazepine cut-o ff is 200 ng/mL.Positive results are unconfirmed and should not be used fornon-medical purposes. Cocaine Screen Urine Not Detected Not Detect [facility] Comment:Cocaine cut-off is 3 00 ng/mL.Positive results are unconfirmed and should not be used fornon-medical purposes. Cannabinoid Screen Urine Not Detected Not Detect [facility] Comment:Cannabinoid cut-off is 50 ng/mL.Positive results are unconfirmed and should not be used fornon-medical purposes. Methadone Screen, Urine Not Detected Not Detect ng/mL [facility] Comment:Methadone cut-off is 300 ng/mL.Positive results are unconfirmed and should not be used fornon-medical purposes. FENTANYL URINE Not Detected Not Detect [facility] Comment:Fentanyl cut-off is 1 ng/mL.Positive results are unconfirmed and should not be used fornon-medical purposes. Oxycodone Urine Screen Not Detected Not Detect ng/mL [facility] Comment:Oxycodone cut-off is 100 ng/mL.Positive results are unconfirmed and should not be used fornon-medical purposes. Buprenorphine Screen Positive(A) Not Detect ng/mL [facility] Comment:Buprenorphine cut-of f is 5 ng/mL.Positive results are unconfirmed and should not be used fornon-medical purposes. 04/22/2024 8:45 AM EST 04/22/2024 8:52 AM EST us Generic External Data Provider LAB URINE ORDERAB LES Final Result [facility] [address] [place] [phone] * THINPREP TIS PAP AND HPV mRNA E6/E7 WITH REFLEX TO HPV 16,18/45 (03/26/2021 10:22 AM EST) Clinical Information: None given [facility] COMMENT SEE COMMENT [facility] [...] has been evaluated with computer assisted technology. [facility] Pastry Decorator: SEE COMMENT [facility] Comment: NHI DIAL(ASCP) CT screening location: [address] ??[address] HPV nRNA E6/E7 Not Detected Not Detected [facility] Comment: Methodology: Materials Management Supervisor-Mediated Amplification This assay detects E6/E7 viral messenger RNA (mRNA) from 14 high-risk HPV types (16,18,31,33,35,39,45,51,52,56,58,59,66,68). ? The analytical performance characteristics of this assay have been determined by [employer]. The modifications have not been cleared or approved by the FDA. This assay has been validated pursuant to the CLIA regulations and is used for clinical purposes. ?? For additional information, please refer to http://education.Pownce/faq/KSX653k7 (This link if provided for information/ educational purposes only.) Interpretation/Re sult: Negative for intraepithelial lesion or malignancy. [facility] LMP: NONE [facility]IVEN [facility] Prev. BX: NONE [facility]IVEN [facility] Prev. PAP: NONE GIVEN [facility] SOURCE: None given [facility] Statement Of Adequacy: SEE COMMENT [facility] Comment: Satisfactory for evaluation. Endocervical/transformation zone component present. Age and/or menstrual status not provided 03/26/2021 10:2 2 AM EST Moni Medina [facility] LAB PATHOLOGY ORDERABLES Final Result [facility] [address] * HIV AB/AG (06/24/2019 2:12 PM [...] detection of this assay. ?? The [employer] HIV Ag/Ab Combo assay result and supplemental assay results should be interpreted in conjunction with the patient's clinical presentation, history and other laboratory results. ??If the results are inconsistent with clinical evidence, additional testing is suggested to confirm the result. 06/24/2019 2:12 PM EDT us Baljeet Perry MD HISTORICAL/NON ORD ERABLE LABS Final Result [facility] [address] from Last 3 Months or Most Recently Relevant to Health Maintenance Insurance [address] [place], [place] [address]LYYN C3 Care Teams Compliance Representative Dealer Relationship Specialty Start Date End Date Baljeet Champagne MD [address] [place] [phone] PCP - General Internal Medicine 06/24/19
--- OUTSIDE RECORDS SUMMARY | 2024-05-10 09:49 | XMS_ITS | Encounter Summary ---
Author Organization [employer] Address [address] [facility] [address] [place] [address] Care Team Providers Care Social Media Director Name Role Phone Baljeet Champagne MD Primary Care Prov ider Encounter Details Date Type Department Care Team (Late st Contact Info) Description 08/12/2023 Telephone [facility] MEDICINE [address] [place], [place] [phone] Baljeet Champagne MD [address] [place] [address] Social History Tobacco Use Types Packs/Day Years [...] on filedocumented in this encounter Care Teams Social Media Director Relationship Specialty Start Date End Date Baljeet Champagne MD [address] [place] [address] PCP - General Internal Medicine 06/24/19 documented as of this encounter
--- OUTSIDE RECORDS SUMMARY | 2024-05-10 09:49 | XMS_ITS | Encounter Summary ---
Author Organization [employer] Address [address] [facility] [address] [place] [address] Care Team Providers Care Tread Builder Name Role Phone Baljeet Champagne MD Primary Care Prov ider Reason for Visit * Reason Onset Date Comments FYI 10/07/2023 Encounter Details Date Type Department Care Team (Late st Contact Info) Description 10/07/2023 Telephone [facility] MEDICINE [address] [place] [address] Baljeet Champagne MD [address] [place] [address] FYI Social History Tobacco Use Types Packs/Day [...] pt request. Any questions contact Real at [phone] documented in this encounter Plan of Treatment Not on file documented as of this encounter Visit Diagnoses Not on filedocumented in this encounter Care Teams Tread Builder Relationship Specialty Start Date End Date DavisBaljeet Oscar MD [address] [place] [phone] PCP - General Internal Medicine 06/24/19 documented as of this encounter
--- OUTSIDE RECORDS SUMMARY | 2024-05-10 09:49 | XMS_ITS | Encounter Summary ---
Author Organization [employer] Address [address] [place] [address] Care Team Providers Care Combatant Swimmer Name Role Phone Baljeet Champagne MD Primary Care Prov ider Reason for Visit * Reason Onset Date Comments Request For Order(s) 07/28/2023 Encounter Details Date Type Department Care Team (Late st Contact Info) Description 07/28/2023 Telephone [facility] [address] [place] [address] Baljeet Champagne MD [address] [place] [address] Request For Order(s) Social History Tobacco Use [...] would have pt call back. Tc to [facility] and confirmed verbal order, spoke to Ivelisse who verbalized understanding and agreement with plan. * Telephone Encounter - Dhiraj Lua - 07/28/2023 10:46 AM EDT Tc from yoselin from [facility] requesting a verbal order to start PT for weakness and unsteadiness, also stated will be starting pt for fci 1 x a week for 9 weeks. Please contact at [phone] documented in this encounter Plan of Treatment Not on file documented as of this encounter Visit Diagnoses Not on filedocumented in this encounter Care Teams Combatant Swimmer Relationship Specialty Start Date End Date DavisBaljeet Oscar MD [address] [place] [phone] PCP - General Internal Medicine 06/24/19 documented as of this encounter
--- OUTSIDE RECORDS SUMMARY | 2024-05-10 09:49 | XMS_ITS | Encounter Summary ---
Author Organization [employer] Address [address] [facility] 7t [place] [address] Care Team Providers Care Avid Editor Name Role Phone Baljeet Champagne MD Primary Care Prov ider Encounter Details Date Type Department Care Team (Late st Contact Info) Description 08/05/2023 Orders Only [facility] [address] [place] [address] Baljeet Champagne MD [address] [place] [address] Social History Tobacco Use Types Packs/Day Years [...] on filedocumented in this encounter Care Teams Avid Editor Relationship Specialty Start Date End Date Baljeet Champagne MD [address] [place] [address] PCP - General Internal Medicine 06/24/19 documented as of this encounter
--- OUTSIDE RECORDS SUMMARY | 2024-05-10 09:49 | XMS_ITS | Encounter Summary ---
Author Organization [employer] Address 75 [facility] [address] [place] [address] Care Team Providers Care Catering Operations Manager Name Role Phone Baljeet Champagne MD Primary Care Prov ider Reason for Visit * Reason Onset Date Comments Medication Question 07/28/2023 Encounter Details Date Type Department Care Team (Late st Contact Info) Description 07/28/2023 Telephone [facility] MEDICINE [address] [place] [address] Baljeet Champagne MD [address] [place] [address] Medication Question Social History Tobacco Use Types [...] 10:50 AM EDT Tc from yoselin from [facility] requesting a refill for duloxetine 40 mg and gabapentin 300 mg however engineering writer does 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
--- OUTSIDE RECORDS SUMMARY | 2024-05-10 09:50 | XMS_ITS | Encounter Summary ---
Author Organization [employer] Address 75 [facility] 7t [place] [address] Care Team Providers Care Bug Trimmer Name Role Phone Baljeet Champagne MD Primary [...] EST Narrative 04/22/2024 9:17 AM EST ? [facility] ?[address] ?[place] [address] ?XRay Report ? Signed ? Patient: Parent,Beverley ?MR#: [id number] ? : 1970 ?Acct:[id number] ? Age/Sex: 53 / F ?ADM Date: 04/22/24 ? Loc: HO.ED ? Attending Dr: ? Ordering Physician: Waylon Tamez MD ?? Date of Service: 04/22/24 ?? Procedure(s): XR chest 1V ?? Accession Number(s): [id number] ? cc: Baljeet Champagne MD; Waylon Tamez [...] DD/ 0900 ? TD/TT: 04/22/24 0905 ? Divinity Teacher: ? Procedure Note Umer Sharma - 04/26/[address] [place] [address] XRay Report Signed Patient: Lore Mims#: [id number] : 1970Acct:[id number] Age/Sex: 53 / FADM Date: 04/22/24 Loc: HO.ED Attending Dr: Ordering Physician: Waylon Tamez MD Date of Service: 04/22/24 Procedure(s): XR chest 1V Accession Number(s): [id number] cc: Baljeet Champagne MD; Waylon Tamez MD [...] OV> 04/22/2414 DD/ 09 TD/TT: 04/22/24 0905 Divinity Teacher: [facility] External Provider IMG XR PROCEDURES Edited Result - Final * CT Head w/o Contrast (04/22/2024 8:56 AM EST) Anatomical Region Laterality Modality Head, Neck Computed Tomogra phy 04/22/2024 8:56 AM EST Narrative 04/22/2024 9:24 AM EST ? [facility] ?[address] ?[place] [address] ? CT Scan Report ? Signed ? Patient: Parent,Beverley ?MR#: [id number] ? : 1970 ?Acct:[id number] ? Age/Sex: 53 / F ?ADM Date: 01/17/25 ? Loc: HO.ED ? Attending Dr: ? Ordering Physician: Waylon Tamez MD ?? Date of Service: 04/22/24 ?? Procedure(s): CT head/brain wo IV con ?? Accession Number(s): [id number] ? cc: Baljeet Champagne MD; Waylon Tamez MD ? Report Number: ?? [id number]: Total DLP = ??762.00 mGy-cm ?? EXAMINATION: [...] DD/ 0856 ? TD/TT: 04/22/24 0914 ? Divinity Teacher: ? Procedure Note Donsuraj, Image - 04/26/[address] [address] [address] Scan Report Signed Patient: Lore Mims#: [id number] : 1970Acct:[id number] Age/Sex: 53 / FADM Date: 04/22/24 Loc: HO.ED Attending Dr: Ordering Physician: Waylon Tamez MD Date of Service: 04/22/24 Procedure(s): CT head/brain wo IV con Accession Number(s): [id number] cc: Baljeet Champagne MD; Waylon Tamez MD Report Number: [id number]: Total DLP = 762.00 mGy-cm EXAMINATION: CT [...] MD in OV> 04/22/24921 DD/ TD/TT: 04/22/24913 Divinity Teacher: [facility] External Provider IMG CT PROCEDURES Edited Result - Final * SARS-CoV-2 RNA, Influenza A/B, and RSV RNA, Ql NAAT (04/22/2024 8:45 AM EST) Influenza A PCR NEGATIVE Negative [facility] Influenza B PCR NEGATIVE Negative [facility] Resp Syncy Virus RNA Qual PCR NEGATIVE Negative [facility] SARS COV2 PCR NEGATIVE Negative [facility] Comment:All test results mus t [...] use by authorized laboratories.Testing performed on the [employer]pert utilizingreal-time RT-PCR.All SARS CoV2 and positive influenza A/B results arereported to [facility]. 04/22/2024 8:45 AM EST 04/22/2024 8:49 AM EST Generic External Data Provider LAB MICROBIOLOGY - GENERAL ORDERABLES Final Result [facility] [address] [place] [phone] * (ABNORMAL) Drug Monitoring, Panel 1, Screen, Urine (04/22/2024 8:45 AM EST) Opiate Screen Urine Not Detected Not Detect [facility] Comment:Opiate cut-off is 30 0 ng/mL.Positive results are unconfirmed and should not be used fornon-medical purposes. Barbiturates, Urine Not Detected Not Detect [facility] Comment:Barbiturate cut-off is 200 ng/mL.Positive results are unconfirmed and should not be used fornon-medical purposes. Phencyclidine Screen Urine Not Detected Not Detect [facility] Comment:Phencyclidine cut-of f is 25 ng/mL.Positive results are unconfirmed and should not be used fornon-medical purposes. Amphetamine Screen Urine Not Detected Not Detect [facility] Comment:Amphetamine cut-off is 1000 ng/mL.Positive results are unconfirmed and should not be used fornon-medical purposes. Benzodiazepines Screen Urine POSITIVE(A) Not Detect [facility] Comment:Benzodiazepine cut-o ff is 200 ng/mL.Positive results are unconfirmed and should not be used fornon-medical purposes. Cocaine Screen Urine Not Detected Not Detect [facility] Comment:Cocaine cut-off is 3 00 ng/mL.Positive results are unconfirmed and should not be used fornon-medical purposes. Cannabinoid Screen Urine Not Detected Not Detect [facility] Comment:Cannabinoid cut-off is 50 ng/mL.Positive results are unconfirmed and should not be used fornon-medical purposes. Methadone Screen, Urine Not Detected Not Detect ng/mL [facility] Comment:Methadone cut-off is 300 ng/mL.Positive results are unconfirmed and should not be used fornon-medical purposes. FENTANYL URINE Not Detected Not Detect [facility] Comment:Fentanyl cut-off is 1 ng/mL.Positive results are unconfirmed and should not be used fornon-medical purposes. Oxycodone Urine Screen Not Detected Not Detect ng/mL [facility] Comment:Oxycodone cut-off is 100 ng/mL.Positive results are unconfirmed and should not be used fornon-medical purposes. Buprenorphine Screen Positive(A) Not Detect ng/mL [facility] Comment:Buprenorphine cut-of f is 5 ng/mL.Positive results are unconfirmed and should not be used fornon-medical purposes. 04/22/2024 8:45 AM EST 04/22/2024 8:52 AM EST us Generic External Data Provider LAB URINE ORDERAB LES Final Result Performing Organization Address City/[facility]/ZIP Co de Phone Number [facility] [address] [place] [phone] * (ABNORMAL) Urinalysis, Complete, with Reflex to Culture (04/22/2024 8:45 AM EST) Color Urine Yellow [facility] Appearance Urine Clear [facility] PH 7.0 5.0 - 9.0 [facility] Glucose Urine UA Negative Negative mg/dL [facility] Urine Blood Negative Negative [facility] Specific [place] - Urine <=1.005 1.005 - 1.025 [facility] Urine Protein Negative Neg-Trace mg/dL [facility] Urine Ketones Negative Negative mg/dL [facility] Nitrite Urine Negative Negative [facility] Leukocyte Esterase Urine Trace(A) Negative [facility] RBC Urine 0-2 0 - 2 /HPF [facility] Urine WBC 0-5 0 - 5 /HPF [facility] Urine Squamous Epithelial Cell 3-5 0 - 2 /HPF [facility] Urine Bacteria None Seen None Seen [facility] Hyaline Casts, Urine 0-2 0 - 2 /LPF [facility] 04/22/2024 8:45 AM EST 04/22/2024 8:49 AM EST Narrative [facility] - 04/22/2024 8:56 AM EST [id number], Clean Catch us Generic External Data Provider LAB URINE ORDERAB LES Final Result Performing Organization Address City/[facility]/ZIP Co de Phone Number [facility] [address] [place] [phone] documented in this encounter Visit Diagnoses Not on filedocumented in this encounter Care Teams Bug Trimmer Relationship Specialty Start Date End Date Baljeet Champagne MD [address] [place] [phone] PCP - General Internal Medicine 06/24/19 documented as of this encounter
--- OUTSIDE RECORDS SUMMARY | 2024-05-10 09:50 | XMS_ITS | Clinical Summary ---
Author Organization [facility] Address [address] [address] Care Team Providers Care Coring Machine Operator Name Role Phone Unavailable Primary Care Provider [...] patient's age to complete this topic Insurance [facility]
[2024-05-10 09:51] LABS: MANUAL DIFF FLAG NO
[2024-05-10 09:55] LABS: Basophils Absolute Auto 0.1 X10*3/uL (0.0-0.2); Basophils Percent Auto 1.1 % (0-2); Eosinophils Percent Auto 0.7 % (0-4); Hematocrit 26.8 % (37.0-47.0); Hemoglobin 8.9 g/dl (12.0-16.0); Imm Gran Abs Auto 0.02 X10*3/uL (0.00-0.03); Imm Gran Pct Auto 0.5 % (0.0-0.4); Lymphocytes Absolute Auto 0.3 X10*3/uL (1.2-4.9); Lymphocytes Percent Auto 7.7 % (20-40); Mean Corpuscular HGB Conc 33.2 g/dl (31.0-35.0); Mean Corpuscular Hemoglobin 34.1 pg (27.0-33.0); Mean Corpuscular Volume 102.7 fL (80.0-98.0); Mean Platelet Volume 9.5 fL (9.4-12.3); Monocytes Absolute Auto 0.3 X10*3/uL (0.1-1.2); Monocytes Percent Auto 5.6 % (2-11); Neutrophils Absolute Auto 3.8 x10*3/uL (2.0-8.3); Neutrophils Percent Auto 84.4 % (45-73); Platelet Count 143 X10*3/uL (160-400); Red Blood Count 2.61 X10*6/uL (4.20-5.50); Red Cell Distribution Width 15.4 % (11.0-16.0); White Blood Count 4.4 X10*3/uL (4.8-10.8)
[2024-05-10 10:03] LABS: INTERNATIONAL NORM RATIO 1.1 (0.9-1.1); Prothrombin Time 12.7 SEC (10.9-12.4)
[2024-05-10 10:16] LABS: Alanine Aminotransferase 24 U/L (0-31); Albumin Level 2.6 g/dL (3.5-5.0); Alkaline Phosphatase 274 U/L (39-117); Anion Gap 23 (12-20); Aspartate Amino Transferase 175 U/L (5-31); Bilirubin Total 4.5 mg/dL (0.0-1.0); Blood Urea Nitrogen 5 mg/dL (9-16); Calcium 7.7 mg/dL (8.4-10.2); Carbon Dioxide 26 mmol/L (22-29); Chloride 99 mmol/L (96-108); Creatinine Clr Calc Pharmacy 154.4; Estimated Glomerular Filt Rate > 60; Ethanol 107 mg/dL; Glucose Random 77 mg/dL (60-115); Magnesium 1.3 mg/dL (1.6-2.6); Potassium 3.4 mmol/L (3.3-5.1); Sodium 145 mmol/L (135-145); Total Protein 6.2 g/dL (6.5-8.0)
[2024-05-10 10:34] LABS: Influenza A PCR NEGATIVE (Negative); Influenza B PCR NEGATIVE (Negative); Resp Syncy Virus RNA Qual PCR NEGATIVE (Negative); SARS COV2 PCR INHOUSE NEGATIVE (Negative)
--- NOTE | 2024-05-10 10:47 | MHC.EDTECH ---
Patient moved to room ED9 from ED22H, she is very comfort and happy now.
[2024-05-10] MEDS: Magnesium Sulfate/H2O 2 GM/50 ML PIGGYBACK IV (11:02)
[2024-05-10] MEDS: PHENobarbitaL sodium 130 MG/ML IM ONCE 210 MG IM (12:33)
[2024-05-10 12:50] LABS: Appearance Urine Cloudy; Color Urine Dark Yellow; Glucose Urine UA Negative (Negative); Leukocyte Esterase Urine Moderate (2+) (Negative); Nitrite Urine Positive (Negative); Specific Gravity - Urine 1.015 (1.005-1.025); UMIC TRIGGER UACC YES; Urine Blood Small (1+) (Negative); Urine Ketones 15 mg/dL (Negative); Urine Protein Trace mg/dL (Neg-Trace)
[2024-05-10 12:57] LABS: Bacteria Urine 4+ (None Seen); Hyaline Casts Urine 0-2 /LPF (0-2); RBC Urine 0-2 /HPF (0-2); UACC Culture Trigger YES
[2024-05-10 13:01] LABS: Amphetamine Screen Urine Not Detected (Not Detect); Barbiturates, Urine POSITIVE (Not Detect); Benzodiazepines Screen Urine POSITIVE (Not Detect); Buprenorphine Scr Positive (Not Detect); Cannabinoid Screen Urine Not Detected (Not Detect); Cocaine Screen Urine Not Detected (Not Detect); Fentanyl, urine Not Detected (Not Detect); Methadone Screen, Urine Not Detected (Not Detect); Opiate Screen Urine Not Detected (Not Detect); Oxycodone Screen Urine Not Detected (Not Detect); Phencyclidine Screen Urine Not Detected (Not Detect)
--- NOTE | 2024-05-10 14:03 | PHA.MEDREC ---
Addendum entered by Naveen Izaguirre RPh 05/10/24 14:07: MED REC CHECKED BY [facility] Original Note: Pharmacy Consult ? Medication Reconciliation Pharmacy has completed the medication reconciliation. Spoke to patient to confirm med list. Patient states she last had Buprenorphine 300 mg/1.5 ml was about 3 weeks ago.
[2024-05-10] MEDS: PHENobarbitaL sodium 130 MG/ML VIAL IM Q3Hx2 157 MG IM (15:32)
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
[2024-05-10] MEDS: 0.9 % Sodium Chloride Flush 3 ML SYRINGE IVFLUSH (16:48)
[2024-05-10] MEDS: Enoxaparin Sodium 40 MG/0.4 ML SYRINGE SUBCUT (16:50)
[2024-05-10] MEDS: ceFAZolin Sodium 1 GM VIAL IVPUSH (16:51)
[2024-05-10] MEDS: PHENobarbitaL sodium 130 MG/ML VIAL IM Q3Hx2 200 MG IM (18:42)
[2024-05-10] MEDS: PHENobarbitaL sodium 130 MG/ML VIAL IVPUSH (21:57)
[2024-05-11] VITALS (7 sets, daily range): BP systolic 103–169; BP diastolic 62–99; PULSE 82–112; RESP 17–20; TEMP 36.1–36.8; O2SAT 93–98
[2024-05-11] MEDS: ceFAZolin Sodium 1 GM VIAL IVPUSH ×4 (01:02→23:58)
[2024-05-11] MEDS: 0.9 % Sodium Chloride Flush 3 ML SYRINGE IVFLUSH ×4 (01:02→22:56)
[2024-05-11] MEDS: PHENobarbitaL sodium 130 MG/ML VIAL IVPUSH ×3 (01:05→23:58)
[2024-05-11] MEDS: ondansetron HCL 4 MG/2 ML VIAL IVPUSH (03:33)
[2024-05-11] MEDS: hydrOXYzine HCL 50 MG TABLET PO ×3 (03:36→19:55)
[2024-05-11] MEDS: PHENobarbitaL 15 MG TABLET 45 MG PO ×2 (08:39→19:55)
[2024-05-11] MEDS: Thiamine HCL 100 MG TABLET PO (08:39)
[2024-05-11] MEDS: Folic Acid 1 MG TABLET PO (08:39)
[2024-05-11] MEDS: Acetaminophen 325 MG TABLET 650 MG PO (08:52)
[2024-05-11 08:56] LABS: Alanine Aminotransferase 21 U/L (0-31); Albumin Level 2.4 g/dL (3.5-5.0); Alkaline Phosphatase 269 U/L (39-117); Anion Gap 8 (12-20); Aspartate Amino Transferase 142 U/L (5-31); Bilirubin Direct 2.8 mg/dL (0.0-0.5); Bilirubin Total 4.1 mg/dL (0.0-1.0); Blood Urea Nitrogen 4 mg/dL (9-16); Calcium 7.6 mg/dL (8.4-10.2); Carbon Dioxide 32 mmol/L (22-29); Chloride 100 mmol/L (96-108); Creatinine Clr Calc Pharmacy 171.4; Estimated Glomerular Filt Rate > 60; Glucose Random 90 mg/dL (60-115); Magnesium 1.7 mg/dL (1.6-2.6); Potassium 3.3 mmol/L (3.3-5.1); Sodium 137 mmol/L (135-145); Total Protein 5.8 g/dL (6.5-8.0)
--- NOTE | 2024-05-11 09:09 | MHC.CM.PN ---
05/11/24 09:03 - Case Mgmt Progress Note by Miriamabraham Fortune Acct Num: [id number] : 1970 Patient Age: 53 Patient lives with her and she uses a cane and a walker @ times to assist with mobility. Patient may benefit from a Recovery Team Consult R/T ETOH. Patient receives her Suboxone from [facility]. Patient lives with her /HCP/Yifan , who may be able to transport if dc'd to home. PCP is Dr. Major. Initialized on 05/11/24 09:03 - END OF NOTE
--- NOTE | 2024-05-11 11:47 | HO.WOUND ---
Wound Consult: Initial 53yr old?female admitted to [facility] on 05/10/24 - See progress notes and H&P for detailed history.? Wound consult placed for Abdominal Skin folds.? Patient agreeable to assessment and photo documentation.? Patient denies paint and itching to the abdominal area. abdominal skin fold Etiology: ?MASD and Fungal Dermatitis ? Wound Bed: pink intact tissue Drainage / Odor: yeast odor noted Edges: ? mirrored and advancing Susan wound: intact ? No Induration, Fluctuance or Warmth noted Pain: denies Goals of Treatment: continue with Nystatin powder and consider Interdry Left side of lip / chin area with stable dried scab - patient reports she is picking at the site and requests bandaid. Bandaid applied - stable scab no erythema and no induration no s/s of infection at this time. Ok to use bandaid to deter patient from touching and picking at site. ? Recommendations: 1 Abdominal Ski Fold: Cleanse with PH balance wipes, pat dry with soft cloth.? Apply antifungal power to assist with moisture management.? Be sure to dust of excess powder to prevent caking on skin and in folds. Apply per provider orders. Tuck Interdry AG Sheet into skin fold to wick and translocate moisture away from skin fold.? Be sure to leave at least 2 inch of fabric exposed outside of skin fold.? Change after 5 days or when soiled. Re-consult wound care Nurse for wound deterioration or wound changes.
--- NOTE | 2024-05-11 12:05 | P.PNIM_ITS ---
Subjective Subjective Date of Service: 05/11/24 Interval History: Being followed for alcohol withdrawal/right lower extremity cellulitis. Feeling better this morning CIWA 9 Complaining of bilateral arm pain feels related to pushing wheelchair at home, complaining of bilateral leg pain unable to ambulate. No fevers, no chills, mild nausea, no vomiting. Review of Systems All other system reviewed and negative Physical Exam 2 Vital Signs: Vital Signs: Last Vital Signs Temp 97.1 F 05/11/24 11:17 Pulse 82 05/11/24 11:17 Resp 17 05/11/24 11:17 BP 113/66 05/11/24 11:17 Pulse Ox 95 05/11/24 11:17 O2 Del Method Room Air 05/11/24 11:17 BMI result Body Mass Index 37.7 Const: Other: General resting comfortably in no acute distress. icteric sclera Neck no JVD. CVS regular rate rhythm, Respiratory lungs clear to auscultation, no respiratory distress, no wheeze, no rhonchi. Gastrointestinal abdomen soft, non tender, bowel sounds audible, no guarding , no rigidity. Extremities no pitting edema. Right lower extremity erythema, tender to palpation,warmth, mild left lower extremity hyperemia. Neuro non focal, bilateral hand tremors Skin multiple bruises at back Psych appropriate affect Objective Data Active Medications Acetaminophen (Acetaminophen 325 Mg Tablet) 650 mg PO Q6H PRN PRN Reason: Pain, Mild 1-3,fever,headache Last Admin: 05/11/24 08:52 Dose: 650 mg Documented By: DELVIS Calcium Carbonate (Calcium Carbonate 750 Mg Tab.Chew) 750 mg PO Q4H PRN PRN Reason: Heartburn Cefazolin Sodium (Cefazolin Sodium 1 Gm Vial) 1 gm IVPUSH Q8H [facility] Last Admin: 05/11/24 08:39 Dose: 1 gm Documented By: DELVIS Enoxaparin Sodium (Enoxaparin Sodium 40 Mg/0.4 Ml Syringe) 40 mg SUBCUT Q24H [facility] Last Admin: 05/10/24 16:50 Dose: 40 mg Documented By: TYRONE Folic Acid (Folic Acid 1 Mg Tablet) 1 mg PO DAILY [facility] Last Admin: 05/11/24 08:39 Dose: 1 mg Documented By: DELVIS Hydroxyzine HCl (Hydroxyzine Hcl 50 Mg Tablet) 50 mg PO Q6H PRN PRN Reason: anxiety/restlessness Last Admin: 05/11/24 03:36 Dose: 50 mg Documented By: SONU Magnesium Hydroxide (Milk Of Magnesia 30 Ml Oral.Susp) 30 ml PO DAILY PRN PRN Reason: Constipation Melatonin (Melatonin 3 Mg Tablet) 6 mg PO BEDTIME PRN PRN Reason: Insomnia Nystatin (Nystatin Powder 15 Gm Bottle) 1 appl TOPICAL BID [facility]; Protocol Last Admin: 05/11/24 08:39 Dose: Not Given Documented By: DELVIS Non-Admin Reason: Med Not Available Ondansetron HCl (Ondansetron Hcl 4 Mg/2 Ml Vial) 4 mg IVPUSH Q8H PRN PRN Reason: Nausea and Vomiting Last Admin: 05/11/24 03:33 Dose: 4 mg Documented By: SONU Pharmacy Consult (Consult Rx Etoh Phenob Im/Po) 1 each MISCELLANE ONCE PRN; Protocol PRN Reason: Consult order Phenobarbital (Phenobarbital 15 Mg Tablet) 45 mg PO BID [facility] Stop: 05/12/24 21:01 Last Admin: 05/11/24 08:39 Dose: 45 mg Documented By: DELVIS Phenobarbital (Phenobarbital 15 Mg Tablet) 15 mg PO BID [facility] Stop: 05/14/24 21:01 Phenobarbital (Phenobarbital 15 Mg Tablet) 15 mg PO DAILY [facility] Stop: 05/16/24 09:01 Sodium Chloride (0.9 % Sodium Chloride Flush 3 Ml Syringe) 3 ml IVFLUSH QSHIFT [facility] Last Admin: 05/11/24 08:40 Dose: 3 ml Documented By: DELVIS Thiamine HCl (Thiamine Hcl 100 Mg Tablet) 100 mg PO DAILY [facility] Last Admin: 05/11/24 08:39 Dose: 100 mg Documented By: DELVIS Labs 05/10/24 09:48 05/11/24 06:22 Labs: Laboratory Results - last 24 hr 05/10/24 05/11/24 12:40 06:22 Hold Purple Top SEE NOTE Anion Gap 8 L Estim Creat Clear Calc 171.4 Estimated GFR > 60 Random Glucose 90 Calcium 7.6 L Magnesium 1.7 Total Bilirubin 4.1 H Direct Bilirubin 2.8 H AST 142 H ALT 21 Alkaline Phosphatase 269 H Total Protein 5.8 L Albumin 2.4 L Urine Color Dark Yellow Urine Appearance Cloudy Urine pH 7.0 Ur Specific [place] 1.015 Urine Protein Trace Urine Glucose (UA) Negative Urine Ketones 15 Urine Blood Small (1+) H Urine Nitrite Positive H Ur Leukocyte Esterase Moderate (2+) H Urine RBC 0-2 Urine WBC 11-20 Ur Squamous Epith Cells 6-10 Urine Bacteria 4+ Hyaline Casts 0-2 Urine Opiates Screen Not Detected Ur Buprenorphine Scrn Positive H Ur Oxycodone Screen Not Detected Urine Methadone Screen Not Detected Urine Fentanyl Screen Not Detected Ur Barbiturates Screen POSITIVE H Ur Phencyclidine Scrn Not Detected Ur Amphetamines Screen Not Detected Phenobarbital 16.8 U Benzodiazepines Scrn POSITIVE H Urine Cocaine Screen Not Detected U Marijuana (THC) Screen Not Detected Microbiology Microbiology Results: Microbiology 05/10/24 Unknown Urine Culture - Preliminary Urine clean catch - Clean Catch Midstream Staphylococcus species Gram negative marion Assessment and Plan (1) Alcohol withdrawal: Status: Acute (2) Cellulitis: Status: Acute Plan 53F PMH alcohol dependence, alcoholic fatty liver, opiate dependence, mood disorder, obesity presented with tremulousness Alcohol dependence with withdrawal ciwa, phenobarb, thiamine and folic acid Addiction consult Hold chlordiazepoxide b.i.d. as needed Right lower extremity cellulitis improving, continue Ancef 1 g q.8 hours started on 05/10 Acute hypo magnesemia repleted and normalized, will add Mag oxide b.i.d. alcohol fatty liver with chronically elevated bili and AST, LFTs trending down, recommend to abstain from alcohol, monitor LFTs periodically mood disorder off meds opiate dependence monthly buprenorphine Class 2 obesity weight loss recommended dvt prophylaxis - Lovenox full code Patient will require continued inpatient stay due to alcohol withdrawal with elevated CIWA and right lower extremity cellulitis requiring IV antibiotics. Will need PT eval prior to discharge Quality Stroke Does the patient have a stroke diagnosis?: No VTE Prior VTE?: No VTE Risk Level:: Medical - moderate - high VTE Device Contraindication: Treatment Not Indicated VTE Drug Contraindication: N/A - Med Ordered
[2024-05-11] MEDS: Potassium Chloride ER 20 MEQ TAB.ER.PRT PO (12:16)
[2024-05-11] MEDS: PHENobarbitaL sodium 130 MG/ML VIAL IM (13:25)
[2024-05-11] MEDS: Enoxaparin Sodium 40 MG/0.4 ML SYRINGE SUBCUT (16:03)
[2024-05-11] MEDS: Magnesium Oxide 400 MG TABLET PO (17:51)
[2024-05-11] MEDS: Melatonin 3 MG TABLET 6 MG PO (19:55)
[2024-05-11] MEDS: Nystatin Powder 15 GM BOTTLE 1 APPL TOPICAL (22:59)
[2024-05-12] VITALS (7 sets, daily range): BP systolic 92–127; BP diastolic 58–91; PULSE 76–100; RESP 16–20; TEMP 36.3–37.6; O2SAT 94–98
[2024-05-12] MEDS: hydrOXYzine HCL 50 MG TABLET PO ×2 (03:30→13:12)
[2024-05-12] MEDS: 0.9 % Sodium Chloride Flush 3 ML SYRINGE IVFLUSH ×2 (08:44→18:24)
[2024-05-12] MEDS: ceFAZolin Sodium 1 GM VIAL IVPUSH (08:44)
[2024-05-12] MEDS: Thiamine HCL 100 MG TABLET PO (08:44)
[2024-05-12] MEDS: Magnesium Oxide 400 MG TABLET PO ×2 (08:45→18:32)
[2024-05-12] MEDS: Folic Acid 1 MG TABLET PO (08:45)
[2024-05-12] MEDS: PHENobarbitaL 15 MG TABLET 45 MG PO ×2 (08:45→21:21)
[2024-05-12] MEDS: Nystatin Powder 15 GM BOTTLE 1 APPL TOPICAL ×2 (08:48→21:24)
--- NOTE | 2024-05-12 13:34 | HO.PM.IMPN ---
Subjective Subjective Date of Service: 05/12/24 Interval History: seen and examined this morning follow up for etoh withdrawal and UTI patient awake, alert multiple concerns Review of Systems Review of Systems: Yes all other systems are reviewed and are negative Constitutional Constitutional: Denies chills and Denies fever(s) Cardiovascular Cardiovascular: Denies chest pain Physical Exam Vital Signs: Vital Signs: Last Vital Signs Temp 97.6 F 05/12/24 11:17 Pulse 90 05/12/24 11:17 Resp 17 05/12/24 11:17 BP 112/64 05/12/24 11:17 Pulse Ox 98 05/12/24 11:17 O2 Del Method Room Air 05/12/24 11:17 BMI result Body Mass Index 37.7 Const: General: no acute distress, alert and awake Nutritional Appearance: overweight Resp: Effort & Inspection: normal respiratory effort, able to speak in complete sentences, no respiratory distress and no use of accessory muscles Cardio: Rate: regular rate GI: Inspection: No distended Palpation (GI): Soft to palpation Neuro: General: moves all extremities and CN's II-XI intact bilaterally Extrem: General: Yes no pedal edema Objective Data Active Medications Acetaminophen (Acetaminophen 325 Mg Tablet) 650 mg PO Q6H PRN PRN Reason: Pain, Mild 1-3,fever,headache Last Admin: 05/11/24 08:52 Dose: 650 mg Documented By: DELVIS Calcium Carbonate (Calcium Carbonate 750 Mg Tab.Chew) 750 mg PO Q4H PRN PRN Reason: Heartburn Ceftriaxone Sodium (Ceftriaxone Sodium 1 Gm Vial) 1 gm IVPUSH Q24H [facility] Enoxaparin Sodium (Enoxaparin Sodium 40 Mg/0.4 Ml Syringe) 40 mg SUBCUT Q24H [facility] Last Admin: 05/11/24 16:03 Dose: 40 mg Documented By: MALENAQC Folic Acid (Folic Acid 1 Mg Tablet) 1 mg PO DAILY [facility] Last Admin: 05/12/24 08:45 Dose: 1 mg Documented By: DELVIS Hydroxyzine HCl (Hydroxyzine Hcl 50 Mg Tablet) 50 mg PO Q6H PRN PRN Reason: anxiety/restlessness Last Admin: 05/12/24 13:12 Dose: 50 mg Documented By: DELVIS Magnesium Hydroxide (Milk Of Magnesia 30 Ml Oral.Susp) 30 ml PO DAILY PRN PRN Reason: Constipation Magnesium Oxide (Magnesium Oxide 400 Mg Tablet) 400 mg PO BIDPC [facility] Last Admin: 05/12/24 08:45 Dose: 400 mg Documented By: DELVIS Melatonin (Melatonin 3 Mg Tablet) 6 mg PO BEDTIME PRN PRN Reason: Insomnia Last Admin: 05/11/24 19:55 Dose: 6 mg Documented By: KAREN Nystatin (Nystatin Powder 15 Gm Bottle) 1 appl TOPICAL BID [facility]; Protocol Last Admin: 05/12/24 08:48 Dose: 1 appl Documented By: DELVIS Ondansetron HCl (Ondansetron Hcl 4 Mg/2 Ml Vial) 4 mg IVPUSH Q8H PRN PRN Reason: Nausea and Vomiting Last Admin: 05/11/24 03:33 Dose: 4 mg Documented By: SONU Pharmacy Consult (Consult Rx Etoh Phenob Im/Po) 1 each MISCELLANE ONCE PRN; Protocol PRN Reason: Consult order Phenobarbital (Phenobarbital 15 Mg Tablet) 45 mg PO BID [facility] Stop: 05/12/24 21:01 Last Admin: 05/12/24 08:45 Dose: 45 mg Documented By: DELVIS Phenobarbital (Phenobarbital 15 Mg Tablet) 15 mg PO BID [facility] Stop: 05/14/24 21:01 Phenobarbital (Phenobarbital 15 Mg Tablet) 15 mg PO DAILY [facility] Stop: 05/16/24 09:01 Sodium Chloride (0.9 % Sodium Chloride Flush 3 Ml Syringe) 3 ml IVFLUSH QSHIFT [facility] Last Admin: 05/12/24 08:44 Dose: 3 ml Documented By: DELVIS Thiamine HCl (Thiamine Hcl 100 Mg Tablet) 100 mg PO DAILY [facility] Last Admin: 05/12/24 08:44 Dose: 100 mg Documented By: DELVIS Labs 05/10/24 09:48 05/11/24 06:22 Microbiology Microbiology Results: Microbiology 05/10/24 Unknown Urine Culture - Final Urine clean catch - Clean Catch Midstream Staphylococcus epidermidis Escherichia coli Assessment and Plan (1) Alcohol withdrawal: Status: Acute Plan This is a 53F PMH alcohol dependence, alcoholic fatty liver, opiate dependence, mood disorder, obesity presented with tremulousness admitted for alcohol withdrawal Alcohol dependence with withdrawal continue phenobarbatol protocol - ciwa still elevated, will give extra dose of phenobarbitol; received extra dose overnight as well continue thiamine and folic acid seen by Addiction medicine team - history of numerous inpatient treatment stays Hold home dose of chlordiazepoxide Right lower extremity cellulitis improving, initially treated with Ancef, changed to ceftriaxone / due to concurrent UTI UTI growing e.coli and staph epidermidis staph epi likely contamination start ceftriaxone Acute hypo magnesemia repleted and normalized, will add Mag oxide b.i.d. alcohol fatty liver chronically elevated bili and AST, LFTs trending down, recommend to abstain from alcohol, monitor LFTs periodically mood disorder off meds opiate dependence monthly buprenorphine Class 2 obesity weight loss recommended dvt prophylaxis - Lovenox full code Patient will require continued inpatient stay due to alcohol withdrawal with elevated CIWA and right lower extremity cellulitis requiring IV antibiotics. PT eval pending Quality Stroke Does the patient have a stroke diagnosis?: No VTE Prior VTE?: No VTE Risk Level:: Medical - moderate - high VTE Device Contraindication: Treatment Not Indicated VTE Drug Contraindication: N/A - Med Ordered
[2024-05-12] MEDS: PHENobarbitaL sodium 130 MG/ML VIAL IM (14:27)
[2024-05-12] MEDS: Enoxaparin Sodium 40 MG/0.4 ML SYRINGE SUBCUT (14:27)
[2024-05-12] MEDS: Acetaminophen 325 MG TABLET 650 MG PO (18:32)
[2024-05-12] MEDS: ondansetron HCL 4 MG/2 ML VIAL IVPUSH (18:33)
[2024-05-13 03:16] VITALS: BP 116/66; PULSE 85; RESP 16; TEMP 36.9; O2SAT 100
[2024-05-13 07:01] VITALS: BP 108/61; PULSE 80; RESP 18; TEMP 36.8; O2SAT 98
[2024-05-13 07:16] LABS: Anion Gap 12 (12-20); Blood Urea Nitrogen 3 mg/dL (9-16); Calcium 8.2 mg/dL (8.4-10.2); Carbon Dioxide 27 mmol/L (22-29); Chloride 101 mmol/L (96-108); Creatinine Clr Calc Pharmacy 163.4; Estimated Glomerular Filt Rate > 60; Glucose Random 74 mg/dL (60-115); Potassium 3.7 mmol/L (3.3-5.1); Sodium 136 mmol/L (135-145)
--- NOTE | 2024-05-13 09:09 | MHC.CM.PN ---
PT is recommending [facility]; referrals have been made as it is patient's goal to go to [facility] and CM will continue to follow.
[2024-05-13] MEDS: cefTRIAXone sodium 1 GM VIAL IVPUSH (09:58)
[2024-05-13] MEDS: Thiamine HCL 100 MG TABLET PO (09:59)
[2024-05-13] MEDS: Magnesium Oxide 400 MG TABLET PO ×2 (09:59→17:44)
[2024-05-13] MEDS: PHENobarbitaL 15 MG TABLET PO ×2 (09:59→21:10)
[2024-05-13] MEDS: Famotidine 20 MG TABLET PO (09:59)
[2024-05-13] MEDS: Folic Acid 1 MG TABLET PO (09:59)
[2024-05-13] MEDS: Nystatin Powder 15 GM BOTTLE 1 APPL TOPICAL (10:01)
--- NOTE | 2024-05-13 10:30 | HO.PM.IMPN ---
Subjective Subjective Date of Service: 05/13/24 Interval History: seen and examined this morning follow up for etoh withdrawal emotionally labile, crying, feeling depressed [facility] improving Review of Systems Review of Systems: Yes all other systems are reviewed and are negative Constitutional Constitutional: Denies chills and Denies fever(s) Cardiovascular Cardiovascular: Denies chest pain, Denies palpitations and Denies dyspnea Respiratory Respiratory: Denies cough and Denies dyspnea Gastrointestinal Gastrointestinal: Denies abdominal pain, Denies nausea and Denies vomiting Endocrine Endocrine: Denies palpitations Physical Exam Vital Signs: Vital Signs: Last Vital Signs Temp 98.2 F 05/13/24 07:01 Pulse 80 05/13/24 07:01 Resp 18 05/13/24 07:01 BP 108/61 05/13/24 07:01 Pulse Ox 98 05/13/24 07:01 O2 Del Method Room Air 05/13/24 07:01 BMI result Body Mass Index 37.7 Const: General: no acute distress, alert and awake Nutritional Appearance: overweight Orientation/consciousness: patient oriented x3 Resp: Effort & Inspection: normal respiratory effort, able to speak in complete sentences, no respiratory distress and no use of accessory muscles Cardio: Rate: regular rate GI: Inspection: No distended Palpation (GI): Soft to palpation Neuro: General: patient oriented x3, moves all extremities and CN's II-XI intact bilaterally Extrem: General: Yes no pedal edema Objective Data Active Medications Acetaminophen (Acetaminophen 325 Mg Tablet) 650 mg PO Q6H PRN PRN Reason: Pain, Mild 1-3,fever,headache Last Admin: 05/12/24 18:32 Dose: 650 mg Documented By: REESE Calcium Carbonate (Calcium Carbonate 750 Mg Tab.Chew) 750 mg PO Q4H PRN PRN Reason: Heartburn Ceftriaxone Sodium (Ceftriaxone Sodium 1 Gm Vial) 1 gm IVPUSH Q24H [facility] Last Admin: 05/13/24 09:58 Dose: 1 gm Documented By: MARY Enoxaparin Sodium (Enoxaparin Sodium 40 Mg/0.4 Ml Syringe) 40 mg SUBCUT Q24H [facility] Last Admin: 05/12/24 14:27 Dose: 40 mg Documented By: MARY Famotidine (Famotidine 20 Mg Tablet) 20 mg PO DAILY [facility] Last Admin: 05/13/24 09:59 Dose: 20 mg Documented By: MARY Folic Acid (Folic Acid 1 Mg Tablet) 1 mg PO DAILY [facility] Last Admin: 05/13/24 09:59 Dose: 1 mg Documented By: MARY Hydroxyzine HCl (Hydroxyzine Hcl 50 Mg Tablet) 50 mg PO Q6H PRN PRN Reason: anxiety/restlessness Last Admin: 05/12/24 13:12 Dose: 50 mg Documented By: DELVIS Magnesium Hydroxide (Milk Of Magnesia 30 Ml Oral.Susp) 30 ml PO DAILY PRN PRN Reason: Constipation Magnesium Oxide (Magnesium Oxide 400 Mg Tablet) 400 mg PO BIDPC [facility] Last Admin: 05/13/24 09:59 Dose: 400 mg Documented By: MARY Melatonin (Melatonin 3 Mg Tablet) 6 mg PO BEDTIME PRN PRN Reason: Insomnia Last Admin: 05/11/24 19:55 Dose: 6 mg Documented By: KAREN Nystatin (Nystatin Powder 15 Gm Bottle) 1 appl TOPICAL BID [facility]; Protocol Last Admin: 05/13/24 10:01 Dose: 1 appl Documented By: MARY Ondansetron HCl (Ondansetron Hcl 4 Mg/2 Ml Vial) 4 mg IVPUSH Q8H PRN PRN Reason: Nausea and Vomiting Last Admin: 05/12/24 18:33 Dose: 4 mg Documented By: REESE Pharmacy Consult (Consult Rx Etoh Phenob Im/Po) 1 each MISCELLANE ONCE PRN; Protocol PRN Reason: Consult order Phenobarbital (Phenobarbital 15 Mg Tablet) 15 mg PO BID [facility] Stop: 05/14/24 21:01 Last Admin: 05/13/24 09:59 Dose: 15 mg Documented By: MARY Phenobarbital (Phenobarbital 15 Mg Tablet) 15 mg PO DAILY [facility] Stop: 05/16/24 09:01 Sodium Chloride (0.9 % Sodium Chloride Flush 3 Ml Syringe) [facility] Last Admin: 05/13/24 10:11 Dose: Not Given Documented By: MARY Non-Admin Reason: Previously Administered Thiamine HCl (Thiamine Hcl 100 Mg Tablet) 100 mg PO DAILY [facility] Last Admin: 05/13/24 09:59 Dose: 100 mg Documented By: MARY Labs 05/10/24 09:48 05/13/24 06:09 Labs: Laboratory Results - last 24 hr 05/13/24 06:09 Anion Gap 12 Estim Creat Clear Calc 163.4 Estimated GFR > 60 Random Glucose 74 Calcium 8.2 L D Microbiology Microbiology Results: Microbiology 05/10/24 Unknown Urine Culture - Final Urine clean catch - Clean Catch Midstream Staphylococcus epidermidis Escherichia coli Assessment and Plan (1) Alcohol withdrawal: Status: Acute Plan This is a 53F PMH alcohol dependence, alcoholic fatty liver, opiate dependence, mood disorder, obesity presented with tremulousness admitted for alcohol withdrawal Alcohol dependence with withdrawal continue phenobarbatol protocol - CIWA improving continue thiamine and folic acid seen by Addiction medicine team - history of numerous inpatient treatment stays Hold home dose of chlordiazepoxide Right lower extremity cellulitis improving, initially treated with Ancef, changed to ceftriaxone 05/12 due to concurrent UTI UTI growing e.coli and staph epidermidis staph epi likely contamination continue IV ceftriaxone, started 05/12 Acute hypo magnesemia repleted and normalized continue oral replacement alcohol fatty liver chronically elevated bili and AST, LFTs trending down, recommend to abstain from alcohol, monitor LFTs periodically mood disorder emotionally labile off meds for at least three weeks psych consulted for assistance with medication management/adjustment opiate dependence monthly buprenorphine Class 2 obesity weight loss recommended dvt prophylaxis - Lovenox full code Patient will require continued inpatient stay due to alcohol withdrawal with elevated CIWA and right lower extremity cellulitis requiring IV antibiotics. dispo - STR Quality Stroke Does the patient have a stroke diagnosis?: No VTE Prior VTE?: No VTE Risk Level:: Medical - moderate - high VTE Device Contraindication: Treatment Not Indicated VTE Drug Contraindication: N/A - Med Ordered
--- NOTE | 2024-05-13 10:38 | MHC.CM.PN ---
Per ROUNDS discussion, Patient is not yet medically cleared for dc (needs Psych Eval);PT is recommending STR and CM will continue to follow.
[2024-05-13 11:10] VITALS: BP 117/66; PULSE 86; RESP 18; TEMP 36.9; O2SAT 93
--- NOTE | 2024-05-13 11:47 | MHC.RECOVRN ---
Met with pt this morning in 445 to follow up and provide support. Pt tearful at times, reporting her is admitted to [facility] for a cardiac issue. Pt reports she was confused yesterday regarding the events of the day, feels like she did not eat or receive medication all day. Reports she feels better today. Discussed STR, pt unsure if she would like to go at this time due to being in the hospital. If pt does not go to STR, she would like PT at home. Pt looking forward to psych consult, would like to restart Cymbalta. Pt denies other questions or concerns for t/w. Yazmin Mckinnon APRN, aware.
[2024-05-13] MEDS: Enoxaparin Sodium 40 MG/0.4 ML SYRINGE SUBCUT (17:44)
[2024-05-13] MEDS: 0.9 % Sodium Chloride Flush 3 ML SYRINGE IVFLUSH (17:47)
[2024-05-13 19:25] VITALS: BP 94/64; PULSE 91; RESP 18; TEMP 36.3; O2SAT 96
[2024-05-13] MEDS: hydrOXYzine HCL 50 MG TABLET PO (21:10)
[2024-05-13 23:38] VITALS: BP 108/65; PULSE 78; RESP 18; TEMP 36.6; O2SAT 96
[2024-05-14 03:49] VITALS: BP 110/68; PULSE 85; RESP 18; TEMP 36.9; O2SAT 97
[2024-05-14 07:30] VITALS: BP 110/74; PULSE 84; RESP 18; TEMP 36.2; O2SAT 97
[2024-05-14] MEDS: 0.9 % Sodium Chloride Flush 3 ML SYRINGE IVFLUSH ×3 (07:41→20:24)
[2024-05-14] MEDS: cefTRIAXone sodium 1 GM VIAL IVPUSH (07:42)
[2024-05-14] MEDS: Magnesium Oxide 400 MG TABLET PO ×2 (07:43→17:14)
[2024-05-14] MEDS: PHENobarbitaL 15 MG TABLET PO ×2 (07:43→20:23)
[2024-05-14] MEDS: Folic Acid 1 MG TABLET PO (07:43)
[2024-05-14] MEDS: Famotidine 20 MG TABLET PO (07:43)
[2024-05-14] MEDS: Thiamine HCL 100 MG TABLET PO (07:43)
--- NOTE | 2024-05-14 10:56 | PC.NURSE ---
Patient agitated and upset about camera being at her beside. Patient refusing to have camera stay in her room. Educated on importance of camera for her safety. Camera removed per patient request. Bed alarm on for safety. Patient alert and oriented, encouraged to use call hazel for addressing her needs.
[2024-05-14 11:07] VITALS: BP 130/58; PULSE 84; RESP 18; TEMP 36.4; O2SAT 100
--- NOTE | 2024-05-14 13:25 | HO.PM.IMPN ---
Subjective Subjective Date of Service: 05/14/24 Interval History: seen and examined this morning follow up for etoh withdrawal, ciwa low patient feeling better but still intermittently crying Review of Systems Review of Systems: Yes all other systems are reviewed and are negative Constitutional Constitutional: Denies chills and Denies fever(s) Cardiovascular Cardiovascular: Denies chest pain and Denies dyspnea Respiratory Respiratory: Denies dyspnea Gastrointestinal Gastrointestinal: Denies abdominal pain, Denies nausea and Denies vomiting Physical Exam Vital Signs: Vital Signs: Last Vital Signs Temp 97.6 F 05/14/24 11:07 Pulse 84 05/14/24 11:07 Resp 18 05/14/24 11:07 BP 130/58 L 05/14/24 11:07 Pulse Ox 100 05/14/24 11:07 O2 Del Method Room Air 05/14/24 11:07 BMI result Body Mass Index 37.7 Const: General: no acute distress, alert and awake Nutritional Appearance: overweight Orientation/consciousness: patient oriented x3 Resp: Effort & Inspection: normal respiratory effort, able to speak in complete sentences, no respiratory distress and no use of accessory muscles Cardio: Rate: regular rate GI: Inspection: No distended Palpation (GI): Soft to palpation Neuro: General: patient oriented x3, moves all extremities and CN's II-XI intact bilaterally Extrem: General: Yes no pedal edema Objective Data Active Medications Acetaminophen (Acetaminophen 325 Mg Tablet) 650 mg PO Q6H PRN PRN Reason: Pain, Mild 1-3,fever,headache Last Admin: 05/12/24 18:32 Dose: 650 mg Documented By: REESE Calcium Carbonate (Calcium Carbonate 750 Mg Tab.Chew) 750 mg PO Q4H PRN PRN Reason: Heartburn Ceftriaxone Sodium (Ceftriaxone Sodium 1 Gm Vial) 1 gm IVPUSH Q24H [facility] Last Admin: 05/14/24 07:42 Dose: 1 gm Documented By: DONAVAN Enoxaparin Sodium (Enoxaparin Sodium 40 Mg/0.4 Ml Syringe) 40 mg SUBCUT Q24H [facility] Last Admin: 05/13/24 17:44 Dose: 40 mg Documented By: MARY Famotidine (Famotidine 20 Mg Tablet) 20 mg PO DAILY [facility] Last Admin: 05/14/24 07:43 Dose: 20 mg Documented By: DONAVAN Folic Acid (Folic Acid 1 Mg Tablet) 1 mg PO DAILY [facility] Last Admin: 05/14/24 07:43 Dose: 1 mg Documented By: DONAVAN Hydroxyzine HCl (Hydroxyzine Hcl 50 Mg Tablet) 50 mg PO Q6H PRN PRN Reason: anxiety/restlessness Last Admin: 05/13/24 21:10 Dose: 50 mg Documented By: EVERARDO Magnesium Hydroxide (Milk Of Magnesia 30 Ml Oral.Susp) 30 ml PO DAILY PRN PRN Reason: Constipation Magnesium Oxide (Magnesium Oxide 400 Mg Tablet) 400 mg PO BIDPC [facility] Last Admin: 05/14/24 07:43 Dose: 400 mg Documented By: DONAVAN Melatonin (Melatonin 3 Mg Tablet) 6 mg PO BEDTIME PRN PRN Reason: Insomnia Last Admin: 05/11/24 19:55 Dose: 6 mg Documented By: KAREN Nystatin (Nystatin Powder 15 Gm Bottle) 1 appl TOPICAL BID [facility]; Protocol Last Admin: 05/14/24 11:24 Dose: Not Given Documented By: DONAVAN Non-Admin Reason: Patient Refused Ondansetron HCl (Ondansetron Hcl 4 Mg/2 Ml Vial) 4 mg IVPUSH Q8H PRN PRN Reason: Nausea and Vomiting Last Admin: 05/12/24 18:33 Dose: 4 mg Documented By: REESE Pharmacy Consult (Consult Rx Etoh Phenob Im/Po) 1 each MISCELLANE ONCE PRN; Protocol PRN Reason: Consult order Phenobarbital (Phenobarbital 15 Mg Tablet) 15 mg PO BID [facility] Stop: 05/14/24 21:01 Last Admin: 05/14/24 07:43 Dose: 15 mg Documented By: DONAVAN Phenobarbital (Phenobarbital 15 Mg Tablet) 15 mg PO DAILY [facility] Stop: 05/16/24 09:01 Sodium Chloride (0.9 % Sodium Chloride Flush 3 Ml Syringe) 3 ml IVFLUSH QSHIFT [facility] Last Admin: 05/14/24 07:41 Dose: 3 ml Documented By: DONAVAN Thiamine HCl (Thiamine Hcl 100 Mg Tablet) 100 mg PO DAILY [facility] Last Admin: 05/14/24 07:43 Dose: 100 mg Documented By: DONAVAN Trolamine Salicylate (Trolamine Salicylate 10 % Cream 85 Gm Tube) 1 appl TOPICAL BID PRN; Protocol PRN Reason: muscle pain Labs 05/10/24 09:48 05/13/24 06:09 Assessment and Plan (1) Alcohol withdrawal: Status: Acute (2) Cellulitis: Status: Acute Plan This is a 53F PMH alcohol dependence, alcoholic fatty liver, opiate dependence, mood disorder, obesity presented with tremulousness admitted for alcohol withdrawal Alcohol dependence with withdrawal continue phenobarbatol taper -initially required multiple extra dose of phenobarbitol, CIWA now low continue thiamine and folic acid seen by Addiction medicine team - history of numerous inpatient treatment stays Hold home dose of chlordiazepoxide Right lower extremity cellulitis improved initially treated with Ancef, changed to ceftriaxone 05/12 due to concurrent UTI UTI growing e.coli and staph epidermidis staph epi likely contamination continue IV ceftriaxone, started 05/12 Acute hypo magnesemia repleted and normalized continue oral replacement alcohol fatty liver chronically elevated bili and AST, LFTs trending down, recommend to abstain from alcohol, monitor LFTs periodically mood disorder emotionally labile off meds for at least three weeks psych consulted for assistance with medication management/adjustment opiate dependence monthly buprenorphine Class 2 obesity weight loss recommended dvt prophylaxis - Lovenox full code Patient will require continued inpatient stay due to alcohol withdrawal with elevated CIWA and right lower extremity cellulitis requiring IV antibiotics. dispo - seen by PT, rec STR Quality Stroke Does the patient have a stroke diagnosis?: No VTE Prior VTE?: No VTE Risk Level:: Medical - moderate - high VTE Device Contraindication: Treatment Not Indicated VTE Drug Contraindication: N/A - Med Ordered
[2024-05-14 15:33] VITALS: BP 110/62; PULSE 80; RESP 18; TEMP 36.7; O2SAT 97
[2024-05-14] MEDS: Enoxaparin Sodium 40 MG/0.4 ML SYRINGE SUBCUT (17:14)
[2024-05-14 19:56] VITALS: BP 129/84; PULSE 87; RESP 18; TEMP 36.2; O2SAT 100
[2024-05-14] MEDS: Nystatin Powder 15 GM BOTTLE 1 APPL TOPICAL (20:23)
[2024-05-14] MEDS: Melatonin 3 MG TABLET 6 MG PO (20:23)
[2024-05-14] MEDS: Acetaminophen 325 MG TABLET 650 MG PO (20:24)
[2024-05-14] MEDS: hydrOXYzine HCL 50 MG TABLET PO (20:31)
[2024-05-14 23:26] VITALS: BP 108/76; PULSE 81; RESP 16; TEMP 36.1; O2SAT 96
[2024-05-15 03:36] VITALS: BP 121/76; PULSE 71; RESP 18; TEMP 36.3; O2SAT 97
[2024-05-15] MEDS: Trolamine Salicylate 10 % Cream 85 GM TUBE 1 APPL TOPICAL ×2 (05:55→17:22)
[2024-05-15] MEDS: Acetaminophen 325 MG TABLET 650 MG PO (06:01)
[2024-05-15] MEDS: hydrOXYzine HCL 50 MG TABLET PO ×3 (06:01→20:25)
[2024-05-15 07:56] VITALS: BP 120/84; PULSE 74; TEMP 36.7; O2SAT 96
[2024-05-15] MEDS: 0.9 % Sodium Chloride Flush 3 ML SYRINGE IVFLUSH ×3 (08:06→20:18)
[2024-05-15] MEDS: cefTRIAXone sodium 1 GM VIAL IVPUSH (08:06)
[2024-05-15] MEDS: Thiamine HCL 100 MG TABLET PO (08:07)
[2024-05-15] MEDS: PHENobarbitaL 15 MG TABLET PO (08:07)
[2024-05-15] MEDS: Folic Acid 1 MG TABLET PO (08:07)
[2024-05-15] MEDS: Magnesium Oxide 400 MG TABLET PO ×2 (08:07→17:17)
[2024-05-15] MEDS: Famotidine 20 MG TABLET PO (08:07)
[2024-05-15 08:31] LABS: Alanine Aminotransferase 12 U/L (0-31); Albumin Level 2.3 g/dL (3.5-5.0); Aspartate Amino Transferase 64 U/L (5-31); Bilirubin Direct 1.5 mg/dL (0.0-0.5); Bilirubin Total 2.1 mg/dL (0.0-1.0); Total Protein 5.8 g/dL (6.5-8.0)
[2024-05-15 08:43] LABS: Alkaline Phosphatase 193 U/L (39-117)
[2024-05-15 11:01] VITALS: BP 137/78; PULSE 76; RESP 18; TEMP 36.5; O2SAT 98
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
[2024-05-15] MEDS: FLUoxetine HCl 10 MG CAPSULE PO (13:52)
--- NOTE | 2024-05-15 14:10 | P.PNIM_ITS ---
Subjective Subjective Date of Service: 05/15/24 Interval History: seen and evaluated this morning follow up for alcohol withdrawal remains sad denies SI; intermittent crying Review of Systems Review of Systems: Yes all other systems are reviewed and are negative Constitutional Constitutional: Denies chills and Denies fever(s) Cardiovascular Cardiovascular: Denies chest pain and Denies palpitations Endocrine Endocrine: Denies palpitations Physical Exam 2 Vital Signs: Vital Signs: Last Vital Signs Temp 97.7 F 05/15/24 11:01 Pulse 76 05/15/24 11:01 Resp 18 05/15/24 11:01 BP 137/78 05/15/24 11:01 Pulse Ox 98 05/15/24 11:01 O2 Del Method Room Air 05/15/24 11:01 BMI result Body Mass Index 37.7 Const: General: comfortable, no acute distress, alert, awake and Physically active Nutritional Appearance: overweight Orientation/consciousness: p atient oriented x3 Resp: Effort & Inspection: normal respiratory effort, able to speak in complete sentences, no respiratory distress and no use of accessory muscles Cardio: Rate: regular rate GI: Inspection: No distended Palpation (GI): Soft to palpation Skin: Other: no erythema Neuro: General: patient oriented x3, moves all extremities and CN's II-XI intact bilaterally Extrem: General: Yes no pedal edema Objective Data Active Medications Acetaminophen (Acetaminophen 325 Mg Tablet) 650 mg PO Q6H PRN PRN Reason: Pain, Mild 1-3,fever,headache Last Admin: 05/15/24 06:01 Dose: 650 mg Documented By: ULISES Calcium Carbonate (Calcium Carbonate 750 Mg Tab.Chew) 750 mg PO Q4H PRN PRN Reason: Heartburn Ceftriaxone Sodium (Ceftriaxone Sodium 1 Gm Vial) 1 gm IVPUSH Q24H [facility] Last Admin: 05/15/24 08:06 Dose: 1 gm Documented By: DEMARCO Enoxaparin Sodium (Enoxaparin Sodium 40 Mg/0.4 Ml Syringe) 40 mg SUBCUT Q24H [facility] Last Admin: 05/14/24 17:14 Dose: 40 mg Documented By: MEÑO Famotidine (Famotidine 20 Mg Tablet) 20 mg PO DAILY [facility] Last Admin: 05/15/24 08:07 Dose: 20 mg Documented By: DEMARCO Fluoxetine HCl (Fluoxetine Hcl 10 Mg Capsule) 10 mg PO DAILY [facility] Last Admin: 05/15/24 13:52 Dose: 10 mg Documented By: DEMARCO Folic Acid (Folic Acid 1 Mg Tablet) 1 mg PO DAILY [facility] Last Admin: 05/15/24 08:07 Dose: 1 mg Documented By: DEMARCO Hydroxyzine HCl (Hydroxyzine Hcl 50 Mg Tablet) 50 mg PO Q6H PRN PRN Reason: anxiety/restlessness Last Admin: 05/15/24 14:00 Dose: 50 mg Documented By: DEMARCO Hydroxyzine HCl (Hydroxyzine Hcl 25 Mg Tablet) 25 mg PO Q6H PRN PRN Reason: Anxiety Magnesium Hydroxide (Milk Of Magnesia 30 Ml Oral.Susp) 30 ml PO DAILY PRN PRN Reason: Constipation Magnesium Oxide (Magnesium Oxide 400 Mg Tablet) 400 mg PO BIDPC [facility] Last Admin: 05/15/24 08:07 Dose: 400 mg Documented By: DEMARCO Melatonin (Melatonin 3 Mg Tablet) 6 mg PO BEDTIME PRN PRN Reason: Insomnia Last Admin: 05/14/24 20:23 Dose: 6 mg Documented By: ULISES Nystatin (Nystatin Powder 15 Gm Bottle) 1 appl TOPICAL BID [facility]; Protocol Last Admin: 05/15/24 12:08 Dose: Not Given Documented By: DEMARCO Non-Admin Reason: Patient Refused Ondansetron HCl (Ondansetron Hcl 4 Mg/2 Ml Vial) 4 mg IVPUSH Q8H PRN PRN Reason: Nausea and Vomiting Last Admin: 05/12/24 18:33 Dose: 4 mg Documented By: REESE Pharmacy Consult (Consult Rx Etoh Phenob Im/Po) 1 each MISCELLANE ONCE PRN; Protocol PRN Reason: Consult order Phenobarbital (Phenobarbital 15 Mg Tablet) 15 mg PO DAILY [facility] Stop: 05/16/24 09:01 Last Admin: 05/15/24 08:07 Dose: 15 mg Documented By: DEMARCO Sodium Chloride (0.9 % Sodium Chloride Flush 3 Ml Syringe) 3 ml IVFLUSH QSHIFT [facility] Last Admin: 05/15/24 13:52 Dose: 3 ml Documented By: DEMARCO Thiamine HCl (Thiamine Hcl 100 Mg Tablet) 100 mg PO DAILY [facility] Last Admin: 05/15/24 08:07 Dose: 100 mg Documented By: DEMARCO Trolamine Salicylate (Trolamine Salicylate 10 % Cream 85 Gm Tube) 1 appl TOPICAL BID PRN; Protocol PRN Reason: muscle pain Last Admin: 05/15/24 05:55 Dose: 1 appl Documented By: ULISES Labs 05/10/24 09:48 05/13/24 06:09 Labs: Laboratory Results - last 24 hr 05/15/24 07:10 Hold Purple Top SEE NOTE Total Bilirubin 2.1 H Direct Bilirubin 1.5 H AST 64 H ALT 12 Alkaline Phosphatase 193 H Total Protein 5.8 L Albumin 2.3 L Assessment and Plan (1) Alcohol withdrawal: Status: Acute Plan This is a 53F PMH alcohol dependence, alcoholic fatty liver, opiate dependence, mood disorder, obesity presented with tremulousness admitted for alcohol withdrawal Alcohol dependence with withdrawal continue phenobarbatol taper -initially required multiple extra dose of phenobarbitol, CIWA now low, will stop checking continue thiamine and folic acid seen by Addiction medicine team - history of numerous inpatient treatment stays Hold home dose of chlordiazepoxide Right lower extremity cellulitis improved initially treated with Ancef, changed to ceftriaxone 05/12 due to concurrent UTI UTI growing e.coli and staph epidermidis staph epi likely contamination continue IV ceftriaxone, started 05/12, will transition to po ceftin to complete course Acute hypo magnesemia repleted and normalized continue oral replacement alcohol fatty liver chronically elevated. trending down. recommend to abstain from alcohol mood disorder emotionally labile off meds for at least three weeks psych consulted for assistance with medication management/adjustment - consult pending opiate dependence monthly buprenorphine Class 2 obesity weight loss recommended dvt prophylaxis - Lovenox full code Patient will require continued inpatient stay due to alcohol withdrawal with elevated CIWA and right lower extremity cellulitis requiring IV antibiotics. dispo - seen by PT, rec STR awaiting bed/ins authorization Quality Stroke Does the patient have a stroke diagnosis?: No VTE Prior VTE?: No VTE Risk Level:: Medical - moderate - high VTE Device Contraindication: Treatment Not Indicated VTE Drug Contraindication: N/A - Med Ordered
[2024-05-15 15:13] VITALS: BP 123/67; PULSE 77; RESP 18; TEMP 36.3; O2SAT 97
[2024-05-15] MEDS: Enoxaparin Sodium 40 MG/0.4 ML SYRINGE SUBCUT (17:17)
[2024-05-15 19:29] VITALS: BP 140/89; PULSE 90; RESP 18; TEMP 36.8; O2SAT 97
[2024-05-15] MEDS: Melatonin 3 MG TABLET 6 MG PO (20:25)
[2024-05-15] MEDS: PHENobarbitaL 30 MG TABLET PO (20:55)
[2024-05-15 23:18] VITALS: BP 97/53; PULSE 78; RESP 18; TEMP 36.4; O2SAT 96
[2024-05-16 03:13] VITALS: BP 110/69; PULSE 72; RESP 18; TEMP 36.2; O2SAT 96
[2024-05-16] MEDS: Trolamine Salicylate 10 % Cream 85 GM TUBE 1 APPL TOPICAL ×2 (04:10→21:09)
[2024-05-16 07:22] VITALS: BP 133/76; PULSE 78; RESP 16; TEMP 36.7; O2SAT 99
[2024-05-16] MEDS: Magnesium Oxide 400 MG TABLET PO ×2 (09:53→15:45)
[2024-05-16] MEDS: Thiamine HCL 100 MG TABLET PO (09:53)
[2024-05-16] MEDS: PHENobarbitaL 15 MG TABLET PO (09:53)
[2024-05-16] MEDS: Famotidine 20 MG TABLET PO (09:53)
[2024-05-16] MEDS: FLUoxetine HCl 10 MG CAPSULE PO (09:53)
[2024-05-16] MEDS: Folic Acid 1 MG TABLET PO (09:53)
[2024-05-16] MEDS: cefuroxime axetiL 500 MG TABLET PO ×2 (09:53→21:08)
[2024-05-16] MEDS: 0.9 % Sodium Chloride Flush 3 ML SYRINGE IVFLUSH ×3 (09:57→23:56)
--- NOTE | 2024-05-16 10:19 | P.PNIM_ITS ---
Subjective Subjective Date of Service: 05/16/24 Interval History: seen and evaluated this morning follow up for alcohol withdrawal, no withdrawal symptoms Review of Systems Review of Systems: Yes all other systems are reviewed and are negative Constitutional Constitutional: Denies chills and Denies fever(s) Cardiovascular Cardiovascular: Denies chest pain and Denies palpitations Endocrine Endocrine: Denies palpitations Physical Exam 2 Vital Signs: Vital Signs: Last Vital Signs Temp 98.0 F 05/16/24 07:22 Pulse 78 05/16/24 07:22 Resp 16 05/16/24 07:22 BP 133/76 05/16/24 07:22 Pulse Ox 99 05/16/24 07:22 O2 Del Method Room Air 05/16/24 07:22 BMI result Body Mass Index 37.7 Appearing in no acute distress lung sounds are clear to auscultation heart regular rate rhythm, clear S1, S2 positive bowel sounds, abdomen is soft, nontender neuro patient is alert x3, no focal deficits Objective Data Active Medications Acetaminophen (Acetaminophen 325 Mg Tablet) 650 mg PO Q6H PRN PRN Reason: Pain, Mild 1-3,fever,headache Last Admin: 05/15/24 06:01 Dose: 650 mg Documented By: ULISES Calcium Carbonate (Calcium Carbonate 750 Mg Tab.Chew) 750 mg PO Q4H PRN PRN Reason: Heartburn Cefuroxime Axetil (Cefuroxime Axetil 500 Mg Tablet) 500 mg PO Q12H [facility] Stop: 05/18/24 08:59 Last Admin: 05/16/24 09:53 Dose: 500 mg Documented By: WILDER Enoxaparin Sodium (Enoxaparin Sodium 40 Mg/0.4 Ml Syringe) 40 mg SUBCUT Q24H [facility] Last Admin: 05/15/24 17:17 Dose: 40 mg Documented By: DEMARCO Famotidine (Famotidine 20 Mg Tablet) 20 mg PO DAILY [facility] Last Admin: 05/16/24 09:53 Dose: 20 mg Documented By: WILDER Fluoxetine HCl (Fluoxetine Hcl 10 Mg Capsule) 10 mg PO DAILY [facility] Last Admin: 05/16/24 09:53 Dose: 10 mg Documented By: WILDER Folic Acid (Folic Acid 1 Mg Tablet) 1 mg PO DAILY [facility] Last Admin: 05/16/24 09:53 Dose: 1 mg Documented By: WILDER Hydroxyzine HCl (Hydroxyzine Hcl 50 Mg Tablet) 50 mg PO Q6H PRN PRN Reason: anxiety/restlessness Last Admin: 05/15/24 20:25 Dose: 50 mg Documented By: GALINDO Hydroxyzine HCl (Hydroxyzine Hcl 25 Mg Tablet) 25 mg PO Q6H PRN PRN Reason: Anxiety Magnesium Hydroxide (Milk Of Magnesia 30 Ml Oral.Susp) 30 ml PO DAILY PRN PRN Reason: Constipation Magnesium Oxide (Magnesium Oxide 400 Mg Tablet) 400 mg PO BIDPC [facility] Last Admin: 05/16/24 09:53 Dose: 400 mg Documented By: WILDER Melatonin (Melatonin 3 Mg Tablet) 6 mg PO BEDTIME PRN PRN Reason: Insomnia Last Admin: 05/15/24 20:25 Dose: 6 mg Documented By: GALINDO Nystatin (Nystatin Powder 15 Gm Bottle) 1 appl TOPICAL BID [facility]; Protocol Last Admin: 05/16/24 09:57 Dose: Not Given Documented By: WILDER Non-Admin Reason: Patient Refused Ondansetron HCl (Ondansetron Hcl 4 Mg/2 Ml Vial) 4 mg IVPUSH Q8H PRN PRN Reason: Nausea and Vomiting Last Admin: 05/12/24 18:33 Dose: 4 mg Documented By: REESE Pharmacy Consult (Consult Rx Etoh Phenob Im/Po) 1 each MISCELLANE ONCE PRN; Protocol PRN Reason: Consult order Sodium Chloride (0.9 % Sodium Chloride Flush 3 Ml Syringe) 3 ml IVFLUSH [facility] Last Admin: 05/16/24 09:57 Dose: 3 ml Documented By: WILDER Thiamine HCl (Thiamine Hcl 100 Mg Tablet) 100 mg PO DAILY [facility] Last Admin: 05/16/24 09:53 Dose: 100 mg Documented By: WILDER Trolamine Salicylate (Trolamine Salicylate 10 % Cream 85 Gm Tube) 1 appl TOPICAL BID PRN; Protocol PRN Reason: muscle pain Last Admin: 05/16/24 04:10 Dose: 1 appl Documented By: SALMOD Labs 05/16/24 10:42 05/16/24 10:41 Assessment and Plan (1) Alcohol withdrawal: Status: Acute Plan This is a 53F PMH alcohol dependence, alcoholic fatty liver, opiate dependence, mood disorder, obesity presented with tremulousness admitted for alcohol withdrawal Alcohol dependence with withdrawal s/p phenobarbatol taper continue thiamine and folic acid seen by Addiction medicine team - history of numerous inpatient treatment stays Hold home dose of chlordiazepoxide Right lower extremity cellulitis improved initially treated with Ancef, changed to ceftriaxone 05/12 due to concurrent UTI UTI growing e.coli and staph epidermidis staph epi likely contamination continue IV ceftriaxone, started 05/12, will transition to po ceftin to complete course Acute hypomagnesemia repleted and normalized continue oral replacement alcohol fatty liver chronically elevated. trending down. recommend to abstain from alcohol mood disorder emotionally labile off meds for at least three weeks psych consulted for assistance with medication management/adjustment opiate dependence monthly buprenorphine Class 2 obesity weight loss recommended dvt prophylaxis - Lovenox full code Patient will require continued inpatient stay due to alcohol withdrawal with elevated CIWA and right lower extremity cellulitis requiring IV antibiotics. dispo - seen by PT, rec STR awaiting bed/ins authorization Quality Stroke Does the patient have a stroke diagnosis?: No VTE Prior VTE?: No VTE Risk Level:: Medical - moderate - high VTE Device Contraindication: Treatment Not Indicated VTE Drug Contraindication: N/A - Med Ordered
[2024-05-16 10:52] LABS: Hematocrit 29.7 % (37.0-47.0); Hemoglobin 9.4 g/dl (12.0-16.0); Mean Corpuscular HGB Conc 31.6 g/dl (31.0-35.0); Mean Corpuscular Hemoglobin 34.2 pg (27.0-33.0); Mean Platelet Volume 10.8 fL (9.4-12.3); Platelet Count 168 X10*3/uL (160-400); Red Blood Count 2.75 X10*6/uL (4.20-5.50); Red Cell Distribution Width 18.1 % (11.0-16.0)
[2024-05-16 11:06] VITALS: BP 98/65; PULSE 78; RESP 17; TEMP 36.2; O2SAT 96
[2024-05-16 11:09] LABS: Anion Gap 10 (12-20); Blood Urea Nitrogen 4 mg/dL (9-16); Calcium 8.6 mg/dL (8.4-10.2); Carbon Dioxide 25 mmol/L (22-29); Chloride 107 mmol/L (96-108); Creatinine Clr Calc Pharmacy 152.7; Estimated Glomerular Filt Rate > 60; Glucose Random 91 mg/dL (60-115); Magnesium 1.9 mg/dL (1.6-2.6); Potassium 4.3 mmol/L (3.3-5.1); Sodium 138 mmol/L (135-145)
--- NOTE | 2024-05-16 11:28 | MHC.CM.PN ---
Addendum entered by Marcie Hdz 05/16/24 16:30: PT REFUSING BED OFFERS FOR SNFS OUT OF AREA SHE STATES SHE WILL DC HOME TOMORROW, SHE WOULD LIKE A VNA PT WILL NEED TRANSPORT ARRANGED Original Note: Per ROUNDS discussion, Patient is medically cleared for dc and PT is recommending STR but there are no SNF bed offers (18 denials). CM has expanded the SNF search and CM will continue to follow.
--- NOTE | 2024-05-16 12:55 | MHC.RECOVRN ---
Met with pt to follow up and provide support. Pt awake, alert, easily engages in conversation. Pt last received Sublocade on 04/14/24 and is due for another injection. Pt agreeable to local STR only, is not willing to be placed in [place]. Pt reports if she does not go to STR she is going to go home and receive PT at home. Pt reports she is going to call the [facility] to schedule her Sublocade injection. Denies other questions or concerns for t/w. Discussed with Yazmin Mckinnon APRN.
[2024-05-16 13:42] VITALS: BP 98/65; PULSE 78; O2SAT 96
[2024-05-16 15:19] VITALS: BP 98/50; PULSE 71; RESP 14; TEMP 36.6; O2SAT 97
[2024-05-16] MEDS: hydrOXYzine HCL 50 MG TABLET PO ×2 (15:44→22:11)
[2024-05-16 20:00] VITALS: BP 91/54; PULSE 77; RESP 16; TEMP 37.1; O2SAT 96
[2024-05-16] MEDS: Melatonin 3 MG TABLET 6 MG PO (21:08)
[2024-05-16] MEDS: Nystatin Powder 15 GM BOTTLE 1 APPL TOPICAL (21:09)
[2024-05-17 03:51] VITALS: BP 113/59; PULSE 96; RESP 18; TEMP 36.4; O2SAT 95
[2024-05-17 07:47] VITALS: BP 115/66; PULSE 82; RESP 20; TEMP 37.2; O2SAT 98
[2024-05-17] MEDS: Folic Acid 1 MG TABLET PO (08:26)
[2024-05-17] MEDS: Thiamine HCL 100 MG TABLET PO (08:26)
[2024-05-17] MEDS: FLUoxetine HCl 10 MG CAPSULE PO (08:26)
[2024-05-17] MEDS: Famotidine 20 MG TABLET PO (08:26)
[2024-05-17] MEDS: Magnesium Oxide 400 MG TABLET PO (08:26)
[2024-05-17] MEDS: cefuroxime axetiL 500 MG TABLET PO (08:26)
[2024-05-17] MEDS: 0.9 % Sodium Chloride Flush 3 ML SYRINGE IVFLUSH (08:28)
--- NOTE | 2024-05-17 09:02 | PM.DS ---
DS: Providers Provider Date of Service: 05/17/24 Date of admission: 05/10/24 14:41 Date of discharge: 05/17/24 Primary care physician: Baljeet Perry MD Consults: 05/10/24 18:38 Addiction Medicine Routine Consulting Provider: Addiction Covering Reason for consultation: ETOH Consult to Wound Care Routine Reason for consultation: fungal rash/ cellulitis 05/13/24 10:13 Consult to Psychiatry Routine Consulting Provider: [facility] Psych Covering Reason for consultation: depression; emotionally labile ?med adjustment Has provider been notified: No DS: Diagnosis Discharge Diagnosis (1) Alcohol withdrawal: Status: Acute DS: Summary Hospital Course Hospital Course: History and physical as per admitting provider. 53-year-old female patient with past medical history significant for alcohol dependence, alcohol fatty liver, mood disorder, obesity presented to [facility] due to shakiness, difficulty ambulating due to bilateral lower extremity pain, redness, has been regularly drinking 1 L of vodka per day, lives with who is also an alcoholic ,her last alcohol drink was yesterday, has been to rehab 50 times for detox, but has no support at home from , wishes to be transferred to rehab upon discharge, complaining of nausea, no vomiting, complaining of generalized shakines, no fevers, no chills, in the emergency room patient noted to have elevated CIWA 13, started on phenobarb protocol and now being admitted for continued treatment for alcohol withdrawal/right lower extremity cellulitis 53-year-old woman admitted for alcohol dependence and withdrawal. Treated with phenobarbital protocol and taper as well as thiamine and folic acid. She was seen evaluated by addiction Medicine team, she has been at numerous inpatient treatments days, she reports 50. She was also seen evaluated by psychiatric team for depression and started on Prozac and Atarax for anxiety. Patient reports chronic weakness and reports that at home she was usually in a wheelchair and this has been ongoing for at least 5-6 months. Patient was also treated for right lower extremity cellulitis which improved with Ancef and switched to ceftriaxone as she was also treated for a concurrent E coli UTI. She will go home with 2 more days of antibiotic. Acute hypomagnesemia was repleted with oral replacement and resolved. She was chronically elevated LFTs with alcohol fatty liver she was advised to abstain from alcohol. She was treated with Suboxone for opiate dependence at home. Plan is for patient to be discharged home with physical therapy. Class 2 obesity. BMI 37.7 Discussed importance of weight management as this may be contributing to worsening of other comorbidities Time Attestation Discharge Coordination Time (in mins): 40 Quality: Safe Use of Opioids Does Pt have an Active Cancer Diagnosis on the Problem List?: No Quality: Stroke Does the patient have a stroke diagnosis?: No Physical Exam Vital Signs: Vital Signs: Last Vital Signs Temp 99.0 F 05/17/24 07:47 Pulse 82 05/17/24 07:47 Resp 20 05/17/24 07:47 BP 115/66 05/17/24 07:47 Pulse Ox 98 05/17/24 07:47 O2 Del Method Room Air 05/17/24 07:47 BMI result Body Mass Index 37.7 Appearing in no acute distress head is normocephalic atraumatic eyes pupils are PERRLA sclera is anicteric mouth throat mucous membranes are intact and moist neck is supple no lymphadenopathy, no JVD noted lung sounds are clear to auscultation heart regular rate rhythm, clear S1, S2 positive bowel sounds, abdomen is soft, nontender neuro patient is alert x3, no focal deficits DS: Data Data Completed and Pending Completed studies during hospitalization [Text1]: Procedures Detoxification Services for Substance Abuse Treatment (04/22/24) Drainage of Right Upper Arm Subcutaneous Tissue and Fascia, Open Approach (05/13/23) Labs on day of discharge: Laboratory Results - last 24 hr 05/13/24 05/16/24 05/16/24 06:09 10:41 10:42 WBC 4.0 L RBC 2.75 L Hgb 9.4 L Hct 29.7 L MCV 108.0 H D MCH 34.2 H MCHC 31.6 RDW 18.1 H Plt Count 168 MPV 10.8 Absolute Nucleated RBC 0.000 Nucleated RBC % (auto) 0.0 Sodium 136 138 Potassium 3.7 4.3 Chloride 101 107 Carbon Dioxide 27 25 Anion Gap 12 10 L BUN 3 L 4 L Creatinine 0.43 L 0.46 L Estim Creat Clear Calc 163.4 152.7 Estimated GFR > 60 > 60 Random Glucose 74 91 Calcium 8.2 L D 8.6 Magnesium 1.9 Discharge Plan Discharge Anticipated Discharge Date/Time: 05/17/24 08:52 Patient Disposition: Home Health Service Discharge Diagnosis: Alcohol withdrawal Right lower extremity cellulitis E coli UTI Hypomagnesemia Depression Referrals: Baljeet Champagne MD [Primary Care Provider] - 1 Week Discharge Medications: New fluoxetine 10 mg Capsule 10 mg PO DAILY Qty: 30 0RF hydroxyzine HCl 25 mg Tablet 25 mg PO Q6H PRN (Reason: Anxiety) Qty: 56 0RF cefuroxime axetil 500 mg Tablet 500 mg PO Q12H Qty: 2 0RF Continued chlordiazepoxide HCl 25 mg capsule 25 mg PO BID PRN (Reason: Alcohol Withdrawal) Sublocade 300 mg/1.5 mL solution, extended rel syringe 300 mg SUBCUT QMONTH Discharge Orders: Discharge Order (Routine); Ordered 05/17/24 Ordered By: Anat Leon Diet: Advance to usual diet Activity on Discharge: As tolerated Stand Alone Forms: Patient Portal Discharge page, Work/School Release Print Language: Armenian Care Plan Goals: You have been started on Prozac and Atarax for anxiety anf depression. Please follow up with your primary care provider as soon as possible for refills and close monitoring of these medications. Health Concerns: Alcohol withdrawal Right lower extremity cellulitis E coli UTI Hypomagnesemia Depression Plan of Treatment: Follow-up with primary care provider as needed Take all medications as prescribed Assessment: See discharge summary
--- NOTE | 2024-05-17 10:25 | MHC.CM.PN ---
Patient has been medically cleared for dc to home. PT initially recommended STR; out of several SNF referrals, [facility] was the only SNF willing to consider Patient but they did not have an available bed (Patient ultimately declined SNF as well). CM has made 22 VNA referrals and there are 18 denials thus far; CM has asked [facility] to re-evaluate and CN awaits the outcome of that. Per Patient's request, CM has scheduled a 2:30 BLS Ambulance bulk picker with [facility] to take Patient home; Patient plans to have her Brother and Son there to unlock door and help her get settled at home. [employer]IER is aware.
[2024-05-17] MEDS: hydrOXYzine HCL 50 MG TABLET PO (10:43)
--- NOTE | 2024-05-17 11:22 | MHC.CM.PN ---
[facility] has accepted Patient; RN & [employer]S REMOVER are aware.
[2024-05-17 12:16] VITALS: BP 124/71; PULSE 75; RESP 18; TEMP 36.8; O2SAT 96
--- NOTE | 2024-05-17 15:39 | MHC.CM.PN ---
CM met with Patient for an extended period of time, offering support, reassurance, and encouragement. Patient expressed anxiety over the ambulance being late. Per Patient, her Brother has been to her home to unlock the door but she worries that the door will get locked before she gets home. Per Patient, her Brother is willing to return to her home, if necessary. During this documentation, RN has indicated that the ambulance has arrived. Patient expressed much appreciation for CM listening to her.
--- NOTE | 2024-05-17 17:01 | W.MHC.F2F ---
Service Date Service Date: 05/17/24 Encounter Date of encounter: 05/17/24 Reasons for Services Signs and symptoms assessed: Alcohol withdrawal Cellulitis UTI Hypomagnesemia Reason for fpc: CV/CP assess and/or care and teach disease management (Alcohol cessation) Reason for physical therapy: home safety and mobility and gait/transfer training Homebound: Leaving the home is medically contraindicated at this time without the asist of a device and/or another person due th the listed conditions above and below. Reason homebound: unsteady gait / fall risk, poor balance / fall risk and weakness related to hospital stay Certification: Based on the above findings, I certify that this patient is confined to the home and needs intermittent fpc care, physical therapy and/or speech therapy, or continues to need occupational therapy. The patient is under my care, and I have initiated the establishment of the plan of care. The patient will be followed by a physician who will periodically review the plan of care. Time Spent With Patient Time: Total time managing care of this patient today ____ minutes.
== END 2024-05-17 15:55 | disposition home health service (06) | DRG 463 ==
LOC: HO.ED 13:08 → HO.EDOVER 16:01 → HO.IMC 17:23
PROVIDERS: Internal Medicine; Physician Assistant Medical; Admitting Provider Hospitalist; Emergency Provider Emergency Medicine; PCP Internal Medicine; Visit Provider Nurse Practitioner Acute Care
DX: N39.0 Urinary tract infection, site not specified (principal); K70.0 Alcoholic fatty liver; F10.239 Alcohol dependence with withdrawal, unspecified; F11.20 Opioid dependence, uncomplicated; L03.115 Cellulitis of right lower limb; Y90.5 Blood alcohol level of 100-119 mg/100 ml; F41.8 Other specified anxiety disorders; R53.81 Other malaise; B96.20 Unspecified Escherichia coli [E. coli] as the cause of diseases classified elsewhere; E66.812 Obesity, class 2; E83.42 Hypomagnesemia; Z68.37 Body mass index [BMI] 37.0-37.9, adult; Z20.822 Contact with and (suspected) exposure to COVID-19; Z71.3 Dietary counseling and surveillance; Z71.41 Alcohol abuse counseling and surveillance of alcoholic; Z87.891 Personal history of nicotine dependence; Z79.899 Other long term (current) drug therapy
CPT/HCPCS: 0241U; 36415; 80048; 80076; 80184; 80307; 81001; 83735; 85025; 85027; 85610; 87086; 87088; 87186; 93005; 97110; 97116; 97162; 99285; J0690; J0696; J1650; J2405; J2560; J3475; S9485

== ENCOUNTER → 2024-05-10 09:23 | Outpatient (BNV) | payer BC, MEDICAID, SELFPAY | PROVIDERS: Emergency Provider Emergency Medicine; PCP Internal Medicine; Visit Provider Internal Medicine Cardiovascular Disease | DX: R00.0 Tachycardia, unspecified (principal) | CPT/HCPCS: 93010 ==

== ENCOUNTER → 2024-05-10 14:41 | Outpatient (BNV) | payer BC, MEDICAID, SELFPAY | PROVIDERS: Admitting Provider Hospitalist; Emergency Provider Emergency Medicine; PCP Internal Medicine; Visit Provider Hospitalist | DX: F10.939 Alcohol use, unspecified with withdrawal, unspecified (principal) | CPT/HCPCS: 99223; 99232; 99233; 99239; G0180 ==

== ENCOUNTER 2024-06-02 13:36 | Outpatient (AMB) | payer BC, MEDICAID, SELFPAY ==
--- NOTE | 2024-06-02 13:03 | A.OFFVISCC_ITS ---
Intake Visit Reasons: MAT Tele Allergies No Known Allergies Allergy (Verified 05/10/24 08:55) HPI HPI MAT Tele: Details: Patient presents for AUD treatment follow up Reports that she has been drinking a few beers here and there , denies hard alcohol. Drinking 4 days per week. Has been engaging in PT at home --reporting difficulty ambulating Bright affect, clear speech sleep and appetite improved Recently saw PCP medication list updated Review of Systems Const Reports as per HPI Telehealth Telehealth Telehealth Platform: Telephone Location of provider rendering services: practice address Location of patient: address on file Patient Identification confirmed using: Name, : Yes Telehealth method: voice only Patient verbally consented to treatment: Yes Patient verbally consented to billing insurance company: Yes Minutes spent on Phone/Video with Pt.: 18 PFSH Medical History Alcohol use disorder, severe, dependence Alcohol withdrawal hallucinosis Falls frequently Pedal edema Cellulitis Alcohol intoxication Korsakoff syndrome Thrombocytopenia Alcohol withdrawal syndrome Abscess of axilla, right Rash Encounter for monitoring Suboxone maintenance therapy Hypertension Opioid use disorder Alcohol abuse Surgical History History of total knee arthroplasty History of gastric surgery Family History Father Lung cancer Social History Household Members: Significant Other Household Members Other:: 2 Housing: House Do you presently have visiting nurse or other home services: No Unable to assess alcohol history related to: Unknown Alcohol intake: current Alcohol intake frequency: 3 or more drinks per day Alcohol type: hard liquor Comment: refuses alarm Patient Tobacco Use Status: Former Tobacco user Tobacco use type: Cigarette Years Smoked: 2 Second Hand Smoke Exposure: No service: No Current occupational status: employed Social History: see above Substance History: Long history of severe alcohol dependence Trauma History: As above witnessed first 's body after he hung himself. Denies childhood trauma Assessment & Plan Assessment & Plan (1) Alcohol use disorder, severe, dependence: Code(s): F10.20 - Alcohol dependence, uncomplicated Category: Medical Plan: * risk reduction discussion (2) Opioid use disorder, severe, in sustained remission: Code(s): F11.21 - Opioid dependence, in remission Category: Medical Plan: * continue suboxone at 8mg BID
--- OUTSIDE RECORDS SUMMARY | 2024-06-02 16:20 | XMS_ITS | Encounter Summary ---
Author Organization [employer] Address [address] [place] [address] [address] [place] [address] Care Team Providers Care Policy Advisor Name Role Phone Baljeet Champagne MD Primary Care Prov ider Reason for Visit * Reason Onset Date Comments Appointment Request 07/03/2022 Encounter Details Date Type Department Care Team ([facility] Contact Info) Description 07/03/2022 Telephone [facility] [address] [employer], [place] [phone] Baljeet Champagne MD [address], [place] [phone] Appointment Request Social History Tobacco Use Types Packs/Day Years Used Date Smoking Tobacco: Never Assessed Comments Unknown Sex and Gender Information Value Date Recorded Sex Assigned at Female 02/03/2022 10:36 AM EDT Legal Sex Female 10:36 AM EDT Gender Identity Female 02/03/2022 10:36 AM EDT Sexual Orientation Straight 02/03/2022 10 :36 AM EDT documented as of this encounter Plan of Treatment Upcoming Encounters Date Type Department Care Team ([facility] Contact Info) Description 06/13/2024 1:00 PM EDT Office Visit [facility] [address] [employer], [place] [phone] Denver George MD [address] [place] [phone] 08/23/2024 10:30 AM EDT Office Visit [facility] [address] [employer] [employer] [address] [employer], [place] [phone] Baljeet Champagne MD [address], [place] [phone] documented as of this encounter Visit Diagnoses Not on filedocumented in this encounter Care Teams Policy Advisor Relationship Specialty Start Date End Date Baljeet Champagne MD [address] [place] [address] ELEAZAR Rodriguez [id number] PCP - General Internal Medicine 06/24/19 Erick DISLA 05/19/24 documented as of this encounter
--- OUTSIDE RECORDS SUMMARY | 2024-06-02 16:20 | XMS_ITS | Clinical Summary ---
Author Organization [employer] Address [address] [facility] [address] [place] [address] Care Team Providers Care Four Slide Machine Operator Name Role Phone Baljeet Champagne MD Primary Care Prov ider Allergies No known active allergies Medications * This document contains information received from the source organization and may not represent a complete record from that organization. Sublocade 300 MG/1.5ML injection Inject 1.5 mL under the skin every month to absorb continually. 04/01/20 24 Active FLUoxetine (PROzac) 10 MG capsule Take 1 capsule by mouth Once per day. 05/17/19 25 Active hydrOXYzine HCl (Atarax) 25 MG tablet Take 1 tablet by mouth every 6 (six) hours if needed for anxiety. 05/17/19 25 Active cyanocobalamin (Vitamin B-12) 1000 MCG tablet Take 1 tablet by mouth Once per day. OTC Active gabapentin (Neurontin) 100 MG capsuleIndicat ions:Neuropath y Take 3 capsules (300 mg) by mouth every 8 (eight) hours. 90 capsule 1 05/26/19 25 026 Active Multiple Vitamin (multivitamin) tabletIndicati ons:Neuropathy ,Alcohol use disorder, severe, dependence (CMS/HCC) Take 1 tablet by mouth Once per day. OTC 30 tablet 3 05/26/19 25 Active folic acid (Folvite) 1 MG tabletIndicati ons:Alcohol use disorder, severe, dependence (CMS/HCC) Take 1 tablet (1 mg) by mouth Once per day. 30 tablet 3 05/26/19 25 026 Active modafinil (Provigil) 100 MG tablet Take 1 tablet (100 mg) by mouth Once per day. 30 tablet 07/28/19 24 025 Discontinued(Me d list cleanup (will not trigger notification to Pharmacy)) DULoxetine (Cymbalta) [address] capsule Take 1 capsule (60 mg) by mouth Once per day. 30 capsule 1 07/28/19 24 025 Discontinued(Me d list cleanup (will not trigger notification to Pharmacy)) gabapentin (Neurontin) 300 MG capsule Take 1 capsule (300 mg) by mouth Once per day. 30 capsule 07/28/19 24 025 Discontinued(Me d list cleanup (will not trigger notification to Pharmacy)) Multiple Vitamin (multivitamin) tablet Take 1 tablet by mouth Once per day. OTC 025 Discontinued(Re order (will not trigger notification to Pharmacy)) Active Problems Problem Noted Date Diagnosed Date [...] PM EST): [facility] found with altered mental status and hyponatremia, patient following AA group through zoom meetings, refers not drinking anymore, she has been able to control herself more lately. Elevated liver enzymes 05/11/2023 Depression with anxiety 05/11/2023 05/11/19 Assessment & Plan (05/11/2023 8:32 PM EST): Will refer to therapist, she lost follow up with psych Weakness 05/11/2023 Assessment & Plan (05/11/2023 8:34 PM EST): Due to prolongued hospitalization and alcoholism patient has marked weakness, will send for home PT Encounters Date Type Department Care Team Description 05/26/2024 10:00 AM EST Telemedicine [facility] [address] [place] [address] Franck Buenrostro MD Neuropathy (Primary Dx); Alcohol use disorder, severe, dependence (CMS/HCC) 05/26/2024 Travel 05/25/2024 Telephone [facility] MED [facility] [address] [place] [address] Franck Buenrostro MD chart prep 05/24/[address] [phone] Promise George, PharmD 05/20/2024 Patient Outreach [address] [phone] Baljeet Champagne MD Transition Of Care (Tcm) (SDOH screening negative and Tobacco screening negative) 05/20/2024 Telephone [facility] MEDICINE [address] [place] [address] Baljeet Champagne MD Hospital Follow-up 05/10/2024 Orders Only GENERIC EXTERNAL DATA DEPARTMENT Provider, Generic External Data 04/22/2024 Orders Only GENERIC EXTERNAL DATA DEPARTMENT Provider, Generic External Data 04/08/2024 Telephone [facility] [address], [place] [phone] Baljeet Champagne MD from Last 3 Months Immunizations Name Administration Dates Next Due Td (adult), 5 Lf tetanus tox oid, preservative free, adsorbed 06/27/2013 Tdap 11/12/2010 Social History Tobacco Use Types Packs/Day Years Used Date Smoking Tobacco: Never Assessed Housing Stability Answer Date Recorded What is your housing situation today? I have flores [place] 05/20/[address] you li ve. Do you have problems with any of the following? None of the above 05/20/2024 Food Insecurity Answer Date Recorded Within the past 12 months, y ou worried that your food would run out before you got money to buy more: Never True 05/20/2024 Within the past 12 months,th e food you bought just didn't last and you didn't have enough money to get more: Never True Transportation Answer Date Recorded In the past 12 months, has l ack of transportation kept you from medical appts, meetings, work or from getting things needed for daily living? No 05/20/2024 Utilities Answer Date Recorded In the past 12 months, has t he electric, gas, oil or water company threatened to shut off services in your home? No 05/20/2024 Internet Access Answer Date Recorded Internet Access Q1 Yes 05/20/2024 Internet Access Q2 Not on file 05/20/2024 Comments Unknown Sex and Gender Information Value [...] 03/26/2021 12:12 AM EST Plan of Treatment Upcoming Encounters Date Type Department Care Team (Late st Contact Info) Description 06/13/2024 1:00 PM EDT Office Visit [facility] [address] [place] [address] Denver George MD [address] [place] [address] 08/23/2024 10:30 AM EDT Office Visit [facility] [address] [place] [address] Baljeet Champagne MD [address] [place] [address] Health Maintenance Due Date Last Done Comments CT Colonography 1968 Colonoscopy 1968 Colorectal Cancer Screening 1968 Depression Screening 1968 FIT DNA/Cologuard 1968 FIT 1968 FOBT 1968 Lipid Panel 1968 Sigmoidoscopy 1968 Alcohol/Substance Use Screening 1980 Tobacco Screening 1980 Hepatitis C Screening 1986 Hepatitis B Vaccines (1 of 3 - 19+ 3-dose series) 11/09/1987 Pneumococcal Vaccine: 50+ Years (1 of 2 - PCV) 11/09/1987 Mammogram 2008 Zoster Vaccines (1 of 2) 2018 DTaP/Tdap/Td Vaccines (3 - Td or Tdap) 06/28/2023 06/27/2013, 11/12/2010 COVID-19 Vaccine ( - season) 2023 05/09/2022, 06/17/2021, 08/29/2020, Additional history exists Influenza Vaccine (#1) 2023 Pap Smear 03/26/2024 03/26/2021 SDOH Screening 05/20/2025 05/20/2024 Cervical Cancer Screening 03/26/2026 HPV/Cotest 03/26/2026 03/26/2021 [...] Procedure Name Priority Date/Time Associated Diagnosis Comments DRUG MONITOR, PANEL 1, SCREEN, URINE Routine 05/10/2024 12:40 PM EST URINALYSIS, COMPLETE, WITH REFLEX TO CULTURE Routine 05/10/2024 12:40 PM EST ETHANOL Routine 05/10/2024 9:48 AM EST MAGNESIUM Routine 05/10/2024 9:48 AM EST BASIC METABOLIC PANEL Routine 05/10/2024 9:48 AM EST HEPATIC FUNCTION PANEL Routine 05/10/2024 9:48 AM EST PROTHROMBIN TIME-INR Routine 05/10/2024 9:48 AM EST CBC WITH AUTO DIFFERENTIAL Routine 05/10/2024 9:48 AM EST SARS COV2/INFLUENZA A/B AND RSV RNA QL NAAT Routine 05/10/2024 9:48 AM EST XR CHEST 1 VIEW Routine 04/22/2024 9:00 [...] HPV 16,18/45 Routine 03/26/2021 10:22 AM EST ZZZ HISTORICAL HIV AB/AG Routine 06/24/2019 2:12 PM EDT from Last 3 Months or Most Recently Relevant to Health Maintenance Results * (ABNORMAL) Urinalysis, Complete, with Reflex to Culture (05/10/2024 12:40 PM EST) Only the most recent of2 resultswithin the time period is included. Color Urine Dark Yellow [facility] Appearance Urine Cloudy [facility] PH 7.0 5.0 - 9.0 [facility] Glucose Urine UA Negative Negative mg/dL [facility] Urine Blood Small (1+)(A) Negative [facility] Specific [place] - Urine 1.015 1.005 - 1.025 [facility] Urine Protein Trace Neg-Trace mg/dL [facility] Urine Ketones 15 Negative mg/dL [facility] Nitrite Urine Positive(A) Negative [facility] Leukocyte Esterase Urine Moderate (2+)(A) Negative [facility] RBC Urine 0-2 0 - 2 /HPF [facility] Urine WBC 11-20 0 - 5 /HPF [facility] Urine Squamous Epithelial Cell 6-10 0 - 2 /HPF [facility] Urine Bacteria 4+ None Seen [facility] Hyaline Casts, Urine 0-2 0 - 2 /LPF [facility] 05/10/2024 12:4 0 PM EST 05/10/2024 12:46 PM EST Narrative [facility] - 05/10/2024 12:58 PM EST [id number], Clean Catch us Generic External Data Provider LAB URINE ORDERAB LES Final Result [facility] [address] [place] [address] [phone] * (ABNORMAL) Drug Monitoring, Panel 1, Screen, Urine (05/10/2024 12:40 PM EST) Only the most recent of2 resultswithin the time period is included. Opiate Screen Urine Not Detected Not Detect [facility] Comment:Opiate cut-off is 30 0 ng/mL.Positive results are unconfirmed and should not be used fornon-medical purposes. Barbiturates, Urine POSITIVE(A) Not Detect [facility] Comment:Barbiturate cut-off is 200 ng/mL.Positive results are unconfirmed and should not be used fornon-medical purposes. Phencyclidine Screen Urine Not Detected Not Detect [facility] Comment:Phencyclidine cut-of f is 25 ng/mL.Positive results are unconfirmed and should not be used fornon-medical purposes. Amphetamine Screen Urine Not Detected Not Detect [facility] Comment:Amphetamine cut-off is 1000 ng/mL.Positive results are unconfirmed and should not be used fornon-medical purposes. Benzodiazepines Screen Urine POSITIVE(A) Not Detect [facility] Comment:Benzodiazepine cut-o ff is 200 ng/mL.Positive results are unconfirmed and should not be used fornon-medical purposes. Cocaine Screen Urine Not Detected Not Detect [facility] Comment:Cocaine cut-off is 3 00 ng/mL.Positive results are unconfirmed and should not be used fornon-medical purposes. Cannabinoid Screen Urine Not Detected Not Detect [facility] Comment:Cannabinoid cut-off is 50 ng/mL.Positive results are unconfirmed and should not be used fornon-medical purposes. Methadone Screen, Urine Not Detected Not Detect ng/mL [facility] Comment:Methadone cut-off is 300 ng/mL.Positive results are unconfirmed and should not be used fornon-medical purposes. FENTANYL URINE Not Detected Not Detect [facility] Comment:Fentanyl cut-off is 1 ng/mL.Positive results are unconfirmed and should not be used fornon-medical purposes. Oxycodone Urine Screen Not Detected Not Detect ng/mL [facility] Comment:Oxycodone cut-off is 100 ng/mL.Positive results are unconfirmed and should not be used fornon-medical purposes. Buprenorphine Screen Positive(A) Not Detect ng/mL [facility] Comment:Buprenorphine cut-of f is 5 ng/mL.Positive results are unconfirmed and should not be used fornon-medical purposes. 05/10/2024 12:4 0 PM EST 05/10/2024 12:46 PM EST us Generic External Data Provider LAB URINE ORDERAB LES Final Result Performing Organization Address [facility]/ZIP Co de Phone Number [facility] [address] [place] [phone] * Ethanol (05/10/2024 9:48 AM EST) ETHANOL (MG/DL) IN SER/PLAS 107 mg/dL [facility] Comment:Serum/plasma ethanol results are to be used formedical/treatment purposes only. 05/10/2024 9:48 AM EST 05/10/2024 9:50 AM EST Generic External Data Provider LAB BLOOD ORDERAB LES Final Result Performing Organization Address [facility] de Phone Number [facility] [address] [place] [phone] * SARS-CoV-2 RNA, Influenza A/B, and RSV RNA, Ql NAAT (05/10/2024 9:48 AM EST) Only the most recent of2 resultswithin the time period is included. Influenza A PCR NEGATIVE Negative [facility] Influenza B PCR NEGATIVE Negative [facility] Resp Syncy Virus RNA Qual PCR NEGATIVE Negative [facility] SARS COV2 PCR NEGATIVE Negative [facility] Comment:All test results mus t [...] use by authorized laboratories.Testing performed on the [employer] GeneXpert utilizingreal-time RT-PCR.All SARS CoV2 and positive influenza A/B results arereported to [facility]. 05/10/2024 9:48 AM EST 05/10/2024 9:50 AM EST us Generic External Data Provider LAB MICROBIOLOGY - GENERAL ORDERABLES Final Result [facility] [address] [place] [address] [phone] * (ABNORMAL) CBC auto differential (05/10/2024 9:48 AM EST) White Blood Count 4.4(L) 4.8 - 10.8 X10*3/uL [facility] Red Blood Count 2.61(L) 4.20 - 5.50 X10*6/uL [facility] Hemoglobin 8.9(L) 12.0 - 16.0 g/dl [facility] Hematocrit 26.8(L) 37.0 - 47.0 % [facility] Mean Corpuscular Volume 102.7(H) 80.0 - 98.0 fL [facility] Mean Corpuscular Hemoglobin 34.1(H) 27.0 - 33.0 pg [facility] Mean Corpuscular HGB Conc 33.2 31.0 - 35.0 g/dl [facility] Red Cell Distribution Width 15.4 11.0 - 16.0 % [facility] Platelet Count 143(L) 160 - 400 X10*3/uL [facility] Mean Platelet Volume 9.5 9.4 - 12.3 fL [facility] Neutrophils Percent Auto 84.4(H) 45 - 73 % [facility] Imm Gran Pct Auto 0.5(H) 0.0 - 0.4 % [facility] Lymphocytes Percent Auto 7.7(L) 20 - 40 % [facility] Monocytes Percent Auto 5.6 2 - 11 % [facility] Eosinophils Percent Auto 0.7 0 - 4 % [facility] Basophils Percent Auto 1.1 0 - 2 % [facility] NRBC Pct Auto 0.0 0.0 - 0.2 /100WBC [facility] Neutrophils Absolute Auto 3.8 2.0 - 8.3 x10*3/uL [facility] Imm Gran Abs Auto 0.02 0.00 - 0.03 X10*3/uL [facility] Lymphocytes Absolute Auto 0.3(L) 1.2 - 4.9 X10*3/uL [facility] Monocytes Absolute Auto 0.3 0.1 - 1.2 X10*3/uL [facility] Eosinophils Absolute Auto 0.0 0.0 - 0.4 X10*3/uL [facility] Basophils Absolute Auto 0.1 0.0 - 0.2 X10*3/uL [facility] NRBC Abs Auto 0.000 0.0 - 0.012 X10*3/uL [facility] 05/10/2024 9:48 AM EST 05/10/2024 9:50 AM EST Generic External Data Provider LAB BLOOD ORDERAB LES Final Result Performing Organization Address [facility] de Phone Number [facility] [address] [place] [phone] * (ABNORMAL) Prothrombin Time-INR (05/10/2024 9:48 AM EST) Prothrombin Time 12.7(H) 10.9 - 12.4 SEC [facility] INTERNATIONAL NORM RATIO 1.1 0.9 - 1.1 [facility] Comment:INTERNATIONAL NORMAL IZED RATIO (INR) REFERENCE RANGES Reference RangeFor patients not on anticoagulant therapy: 0.9 - 1.1INR ranges for oral anticoagulanttherapy:For prevention and treatment of venous thrombosis and pulmonary embolism: 2.0 - 3.0For acute myocardial infarction with aspirin therapy: 2.0 - 3.0For acute myocardial infarction without aspirin therapy: 3.0 - 4.0For patients with mechanical prosthetic heart valves: 2.5 - 3.5 05/10/2024 9:48 AM EST 05/10/2024 9:50 AM EST us Generic External Data Provider LAB BLOOD ORDERAB LES Final Result Performing Organization Address [facility] de Phone Number [facility] [address] [place] [phone] * (ABNORMAL) Magnesium (05/10/2024 9:48 AM EST) Pathologist [facility] Magnesium 1.3(LL) 1.6 - 2.6 mg/dL [facility] Comment:Critical value for t est(s): MAGS [facility]: DACIA Person calling: CAMILO Date: Time:10:15 05/10/2024 9:48 AM EST 05/10/2024 9:50 AM EST us Generic External Data Provider LAB BLOOD ORDERAB LES Final Result Performing Organization Address [facility] Co de Phone Number [facility] [address] [place] [phone] * (ABNORMAL) Hepatic Function Panel (05/10/2024 9:48 AM EST) Pathologist [facility] Bilirubin, Total 4.5(H) 0.0 - 1.0 mg/dL [facility] Comment:Slight Icterus. Bilirubin, Direct 3.0(H) 0.0 - 0.5 mg/dL [facility] Comment:Slight Icterus. Aspartate Amino Transferase 175(H) 5 - 31 U/L [facility] Alanine Aminotransferase 24 0 - 31 U/L [facility] Total Protein 6.2(L) 6.5 - 8.0 g/dL [facility] Albumin Level 2.6(L) 3.5 - 5.0 g/dL [facility] Alkaline Phosphatase 274(H) 39 - 117 U/L [facility] 05/10/2024 9:48 AM EST 05/10/2024 9:50 AM EST us Generic External Data Provider LAB BLOOD ORDERAB LES Final Result Performing Organization Address [facility]/ZIP Co de Phone Number [facility] [address] [place] [phone] * (ABNORMAL) Basic Metabolic Panel (05/10/2024 9:48 AM EST) Sodium 145 135 - 145 mmol/L [facility] Potassium 3.4 3.3 - 5.1 mmol/L [facility] Chloride 99 96 - 108 mmol/L [facility] Carbon Dioxide 26 22 - 29 mmol/L [facility] Anion Gap 23(H) 12 - 20 [facility] Urea Nitrogen (BUN) 5(L) 9 - 16 mg/dL [facility] Creatinine, Serum 0.44(L) 0.5 - 1.4 mg/dL [facility] Creatinine Clr Calc Pharmacy 154.4 [facility] Comment:Provided height and weight: 160.02 cm,90.718 kg.eGFR (calculated from the MDRD study equation) and eCrCl(calculated from the Cockcroft-Gault equation) are based ondifferent parameters and may not yield comparable results.If eCrCl result is absurd, please check patient'sheight/weight. Estimated Glomerular Filt Rate >60 [facility] Comment:Chronic Kidney Disea se: Estimated GFR < 60 mL/min/1.63w9Tyicky Kidney Disease: Estimated GFR < 15 mL/min/1.73m2 Glucose 77 60 - 115 mg/dL [facility] Calcium 7.7(L) 8.4 - 10.2 mg/dL [facility] 05/10/2024 9:48 AM EST 05/10/2024 9:50 AM EST us Generic External Data Provider LAB BLOOD ORDERAB LES Final Result [facility] [address] [place] [phone] [phone] * XR Chest 1 View (04/22/2024 9:00 AM EST) Anatomical Region Laterality Modality Chest Radiographic Jaja ging 04/22/2024 9:00 AM EST Narrative 04/22/2024 9:17 AM EST ? [facility] ?[address] ?[place] [address] ?XRay Report ? Signed ? Patient: Parent,Beverley ?MR#: [id number] ? : 1970 ?Acct:[id number] ? Age/Sex: 53 / F ?ADM Date: 04/22/24 ? Loc: HO.ED ? Attending Dr: ? Ordering Physician: Waylon Tamez MD ?? Date of Service: 04/22/24 ?? Procedure(s): XR chest 1V ?? Accession Number(s): [id number] ? cc: Baljeet Champagne MD; Waylon Tamez [...] DD/ 0900 ? TD/TT: 04/22/24 0905 ? Electric Wirer: ? Procedure Note Umer Sharma - 04/26/[address] [address] XRay Report Signed Patient: Lore Mims#: [id number] : 1970Acct:[id number] Age/Sex: 53 / FADM Date: 04/22/24 Loc: HO.ED Attending Dr: Ordering Physician: Waylon Tamez MD Date of Service: 04/22/24 Procedure(s): XR chest 1V Accession Number(s): [id number] cc: Baljeet Champagne MD; Waylon Tamez MD [...] by Dwaine Mahmood MD in OV> 04/22/24 0914 DD/ 09 TD/TT: 04/22/24 09 Electric Wirer: [facility] External Provider IMG XR PROCEDURES Edited Result - Final * CT Head w/o Contrast (04/22/2024 8:56 AM EST) Anatomical Region Laterality Modality Head, Neck Computed Tomogra phy 04/22/2024 8:56 AM EST Narrative 04/22/2024 9:24 AM EST ? [facility] ?[address] ?[place] [address] ? CT Scan Report ? Signed ? Patient: Parent,Beverley ?MR#: [id number] ? : 1970 ?Acct:[id number] ? Age/Sex: 53 / F ?ADM Date: 01/17/25 ? Loc: HO.ED ? Attending Dr: ? Ordering Physician: Waylon Tamez MD ?? Date of Service: 04/22/24 ?? Procedure(s): CT head/brain wo IV con ?? Accession Number(s): [id number] ? cc: Baljeet Champagne MD; Waylon Tamez MD ? Report Number: ?? [id number]: Total DLP = ??762.00 mGy-cm ?? EXAMINATION: [...] DD/ 0856 ? TD/TT: 04/22/24 0914 ? Electric Wirer: ? Procedure Note Donotuseinterpreter, Image - 04/26/[address] [address] [address] Scan Report Signed Patient: Lore Mims#: [id number] : 1970Acct:[id number] Age/Sex: 53 / FADM Date: 04/22/24 Loc: HO.ED Attending Dr: Ordering Physician: Waylon Tamez MD Date of Service: 04/22/24 Procedure(s): CT head/brain wo IV con Accession Number(s): [id number] cc: Baljeet Champagne MD; Waylon Tamez MD Report Number: [id number]: Total DLP = 762.00 mGy-cm EXAMINATION: CT [...] Dwaine Mahmood MD 04/22/2024 09:22 AM EST RP Dictated By: Dwaine Mahmood MD Signed By: <Electronically signed by Dwaine Mahmood MD in OV> 04/22/24921 DD/ TD/TT: 04/22/24913 Electric Wirer: [facility] External Provider IMG CT PROCEDURES Edited Result - Final * THINPREP TIS PAP AND HPV mRNA E6/E7 WITH REFLEX TO HPV 16,18/45 (03/26/2021 10:22 AM EST) Clinical Information: None given [facility] COMMENT SEE COMMENT [facility] ON [...] has been evaluated with computer assisted technology. [employer] LAB SYSTEM Time Stamp Assembler: SEE COMMENT [facility] Comment: MervinXM, CT(ASCP) CT screening location: [address] ??[id number] HPV nRNA E6/E7 Not Detected Not Detected [facility] Comment: Methodology: Jewelry Engraver-Mediated Amplification This assay detects E6/E7 viral messenger RNA (mRNA) from 14 high-risk HPV types (16,18,31,33,35,39,45,51,52,56,58,59,66,68). ? The analytical performance characteristics of this assay have been determined by [employer]. The modifications have not been cleared or approved by the FDA. This assay has been validated pursuant to the CLIA regulations and is used for clinical purposes. ?? For additional information, please refer to http://education.[employer]/faq/MIN416v2 (This link if provided for information/ educational purposes only.) Interpretation/Re sult: Negative for intraepithelial lesion or malignancy. [facility] LMP: NONE GIVEN [facility] Prev. BX: NONE GIVEN [facility] Prev. PAP: NONE GIVEN [facility] LAB SYSTEM SOURCE: None given [facility] Statement Of Adequacy: SEE COMMENT [facility] Comment: Satisfactory for evaluation. Endocervical/transformation zone component present. Age and/or menstrual status not provided 03/26/2021 10:2 2 AM EST Moni WEBB LAB PATHOLOGY ORDERABLES Final Result Performing Organization Address [facility] Co de Phone Number [facility] [address] * HIV AB/AG (06/24/2019 2:12 PM [...] detection of this assay. ?? The [employer] HIV Ag/Ab Combo assay result and supplemental assay results should be interpreted in conjunction with the patient's clinical presentation, history and other laboratory results. ??If the results are inconsistent with clinical evidence, additional testing is suggested to confirm the result. 06/24/2019 2:12 PM EDT us Baljeet Perry MD HISTORICAL/NON ORD ERABLE LABS Final Result Performing Organization Address [facility] Co de Phone Number [facility] [address] from Last 3 Months or Most Recently Relevant to Health Maintenance Insurance [address] [place], [place] [address] Care Teams Four Slide Machine Operator Relationship Specialty Start Date End Date DavisBaljeet Oscar MD [address] [place] [phone] PCP - General Internal Medicine 06/24/19 Erick DISLA 05/19/24
--- OUTSIDE RECORDS SUMMARY | 2024-06-02 16:20 | XMS_ITS | Clinical Summary ---
Author Organization [facility] Facility Address [address] [address] Care Team Providers Care Acetylene Burner Name Role Phone Unavailable Primary Care Provider [...] patient's age to complete this topic Insurance [facility]
--- OUTSIDE RECORDS SUMMARY | 2024-06-02 16:20 | XMS_ITS | Encounter Summary ---
Author Organization [employer] Address [address] [place] [address] Care Team Providers Care Fourdrinier Machine Operator Name Role Phone Baljeet Champagne MD Primary Care Prov ider Reason for Referral * Consultation (Routine) - Authorized Specialty Diagnoses / Procedures Referred By Benitez t Referred To Contact Addiction Medicine Diagnoses Alcohol use disorder, severe, dependence (CMS/HCC) Franck Buenrostro MD [address] [place] [address] Phone: tel: fax: Referral ID Status Reason Start Date Expiration Date Visits Requested Visits Authorized [id number] Authorized Specialty Services Required 05/26/2024 05/26/2025 1 1 Reason for Visit * Reason Comments Hospital discharge follow-up Encounter Details Date Type Department Care Team ([facility] Contact Info) Description 05/26/2024 10:00 AM EST Telemedicine [facility] MED & PEDS [address] [place] [address] Franck Buenrostro MD [address] [place] [address] Neuropathy (Primary Dx); Alcohol use disorder, severe, dependence (CMS/HCC) Social History Tobacco Use Types Packs/Day Years [...] the past 12 months, has t he [employer], oil or water company threatened to [...] AM EDT documented as of this encounter Progress Notes * Franck Buenrostro MD - 05/26/2024 10:00 AM EST Subjective Patient ID: Beverley Mims is a 53 y.o. female who presents for No chief complaint on file.. HPI Recent evaluation at the [facility] emergency department on May 10, 2024 with the impression of alcohol withdrawal syndrome. Will also admitted with a right lower extremity cellulitis and E. coli UTI, hypomagnesemia, and depression. Patient was treated for her withdrawal symptoms with phenobarbital as per protocol, thiamine and folic acid. She was evaluated by addiction medicine and was started on Prozac and Atarax for anxiety. For the right lower extremity cellulitis she was initially treated with Ancef switch later on to ceftriaxone which would cover her concurrent E. coli. She was discharged home to complete the treatment with cefuroxime Axid she will 500 mg for 2 more days. Was also treated with chlordiazepoxide 25 mg to take 2 times a day as needed and Sublocade 300 mg /1.5 mL solution every month. During the evaluation patient reports that her UTI symptoms have resolved the cellulitis has also resolved. He is back to her baseline. In a wheelchair. She is requesting to get bilateral knee F0 to keep her leg steady and straight and because of her neuropathy of the lower limbs. She is complaining of burning sensation of the lower limbs. Not on any medication for that. She reports that she has tried Campral in the past which caused diarrhea. Was also on Antabuse thatshe has stopped taking. Mrs. Mims is open to getting a referral to get help to remain sober. She is currently receiving visits at home from an agency to help her remain sober. Patient Review of Systems Constitutional: Negative for appetite change, chills and diaphoresis. Neurological: Paresthesias of the hands and lower limbs Objective Physical Exam Assessment/Plan Diagnoses and all orders for this visit: Neuropathy - gabapentin (Neurontin) 100 MG capsule; Take 3 capsules (300 mg) by mouth every 8 (eight) hours. - Multiple Vitamin (multivitamin) tablet; Take 1 tablet by mouth Once per day. OTC I recommended to resume gabapentin at a lower dose and to follow-up with PCP in 3 months Alcohol use disorder, severe, dependence (CMS/HCC) - Multiple Vitamin (multivitamin) tablet; Take 1 tablet by mouth Once per day. OTC - Referral to CRS Alcohol Use Disease; Future - folic acid (Folvite) 1 MG tablet; Take 1 tablet (1 mg) by mouth Once per day. documented in this encounter Plan of Treatment Upcoming Encounters Date Type Department Care Team (Late st Contact Info) Description 06/13/2024 1:00 PM EDT Office Visit [facility] MED & PEDS [address] [place] [address] Devner George MD [address] [place] [address] 08/23/2024 10:30 AM EDT Office Visit [facility] MED & PEDS [address] [place] [address] Baljeet Champagne MD [address] [place] [address] Scheduled Referrals Name Type Priority Associated Diagnoses Orde r Schedule Referral to CRS Alcohol Use Disease Outpatient Referral Routine Alcohol use disorder, severe, dependence (CMS/HCC) Expected: 05/26/2024 (Approximate), Expires: 05/26/2025 documented as of this encounter Visit Diagnoses Diagnosis Neuropathy- Primary Mononeuritis of unspecified site Alcohol use disorder, severe, dependence (CMS/HCC) documented in this encounter Care Teams Fourdrinier Machine Operator Relationship Specialty Start Date End Date Baljeet Champagne MD [address] [place] [phone] PCP - General Internal Medicine 06/24/19 Erick DISLA 05/19/24 documented as of this encounter
--- OUTSIDE RECORDS SUMMARY | 2024-06-02 16:20 | XMS_ITS | Encounter Summary ---
Author Organization [employer] Address [address] [place] [address] 7 [place] [address] Care Team Providers Care Restaurant Culinary Manager Name Role Phone Baljeet Champagne MD Primary Care Prov ider Encounter Details Date Type Department Care Team (Late Contact Info) Description 08/12/2023 Telephone [facility] MEDICINE [address] [place] [address] Baljeet Champagne MD [address] [place], [place] [phone] Social History Tobacco Use Types Packs/Day Years [...] Encounters Date Type Department Care Team (Late Contact Info) Description 06/13/2024 1:00 PM EDT Office Visit [facility] MED & PEDS [address] [place] [address] Denver George MD [address] [place] [address] 08/23/2024 10:30 AM EDT Office Visit [facility] MED & PEDS [address] [place] [address] Baljeet Champagne MD [address] [place] [address] documented as of this encounter Visit Diagnoses Not on filedocumented in this encounter Care Teams Restaurant Culinary Manager Relationship Specialty Start Date End Date Baljeet Champagne MD [address] [place] [address] PCP - General Internal Medicine 06/24/19 Erick DISLA 05/19/24 documented as of this encounter
--- OUTSIDE RECORDS SUMMARY | 2024-06-02 16:20 | XMS_ITS | Encounter Summary ---
Author Organization [employer] Address [address] [place] [address] 7 [place] [address] Care Team Providers Care Inspector Wreath Name Role Phone Baljeet Champagne MD Primary Care Prov ider Encounter Details Date Type Department Care Team (Late Contact Info) Description 05/05/2023 Abstract [facility] MED & PEDS [address] [place] [address] Baljeet Champagne MD [address] [place], [place] [phone] Social History Tobacco Use Types Packs/Day Years [...] Description 06/13/2024 1:00 PM EDT Office Visit [facility] MED & PEDS [address] [place] [address] Denver George MD [address] [place] [phone] 08/23/2024 10:30 AM EDT Office Visit [facility] MED & PEDS [address] [place], [place] [phone] Baljeet Champange MD [address] [place], [place] [phone] documented as of this encounter Visit Diagnoses Not on filedocumented in this encounter Care Teams Inspector Wreath Relationship Specialty Start Date End Date Baljeet Champagne MD [address] [place] [address] PCP - General Internal Medicine 06/24/19 Erick DISLA 05/19/24 documented as of this encounter
--- OUTSIDE RECORDS SUMMARY | 2024-06-02 16:20 | XMS_ITS | Encounter Summary ---
Author Organization [employer] Address [address] [facility] 7t [place] [address] Care Team Providers Care Manager Costing Name Role Phone Baljeet Champagne MD Primary Care Prov ider Encounter Details Date Type Department Care Team (Late st Contact Info) Description 05/24/2024 Telephone [facility] MEDICINE [address] [place] [address] Promise George, PharmD [address] [place] [address] Social History Tobacco Use Types Packs/Day Years Used Date Smoking Tobacco: Never Assessed Housing Stability Answer Date Recorded What is your housing situation today? I have flores gorge 05/20/[address] you li [...] encounter Miscellaneous Notes * Telephone Encounter - Alexandra Das RN - 05/26/2024 9:46 AM EST Appointment switched to telehealth visit. Ok'd per Dr. Buenrostro. Best phone number confirmed with patient. [phone]. * Telephone Encounter - Promise George PharmD - 05/24/2024 10:39 AM EST Patient requested HDF appointment be telehealth as they are currently home bound and would need an ambulance to come in person. Patient was also inquiring about request for bilateral AFO's. Upset they have not received yet. Pharmacy unable to find request. Please contact patient at [phone] documented in this encounter Plan of Treatment Upcoming Encounters Date Type Department Care Team (Late st Contact Info) Description 06/13/2024 1:00 PM EDT Office Visit [facility] MED & PEDS [address] [place] [address] Denver George MD [address] [place] [place] [address] 08/23/2024 10:30 AM EDT Office Visit [facility] MED & PEDS [address] [place] [address] Baljeet Champagne MD [address] [place] [address] documented as of this encounter Visit Diagnoses Not on filedocumented in this encounter Care Teams Manager Costing Relationship Specialty Start Date End Date Baljeet Champagne MD [address] [place] [address] PCP - General Internal Medicine 06/24/19 Erick DISLA 05/19/24 documented as of this encounter
--- OUTSIDE RECORDS SUMMARY | 2024-06-02 16:20 | XMS_ITS | Encounter Summary ---
Author Organization [employer] Address [address] [facility] 7 [place] [address] Care Team Providers Care Java Project Manager Name Role Phone Baljeet Champagne MD Primary Care Prov ider Reason for Visit * Reason Onset Date Comments FYI 10/07/2023 Encounter Details Date Type Department Care Team (Late Contact Info) Description 10/07/2023 Telephone [facility] MEDICINE [address] [place] [address] Baljeet Champagne MD [address] [place], [place] [phone] FYI Social History Tobacco Use Types Packs/Day [...] PM EDT Tc from [facility] with Erick SRINIVASANA calling to inform PCP pt admission date have been move to 10/13 as pt request. Any questions contact [facility] at [phone] documented in this encounter Plan of Treatment Upcoming Encounters Date Type Department Care Team (Late Contact Info) Description 06/13/2024 1:00 PM EDT Office Visit [facility] MED & PEDS [address] [place], [place] [phone] Denver George MD [address] [place] [address] 08/23/2024 10:30 AM EDT Office Visit [facility] MED & PEDS [address] [place] [address] Baljeet Champagne MD [address] [place] [address] documented as of this encounter Visit Diagnoses Not on filedocumented in this encounter Care Teams Java Project Manager Relationship Specialty Start Date End Date Baljeet Champagne MD [address] [place] [address] PCP - General Internal Medicine 06/24/19 [facility] 05/19/24 documented as of this encounter
--- OUTSIDE RECORDS SUMMARY | 2024-06-02 16:20 | XMS_ITS | Encounter Summary ---
Author Organization [employer] Address [address] [facility] 7t [place] [address] Care Team Providers Care Ship Surveyor Name Role Phone Baljeet Champagne MD Primary Care Prov ider Reason for Visit * Reason Comments Transition Of Care (Tcm) SDOH screening negative and Tobacco screening negative Encounter Details Date Type Department Care Team (Late st Contact Info) Description 05/20/2024 Patient Outreach [facility] MEDICINE [address] [place] [address] Baljeet Champagne MD [address] [place] [address] Transition Of Care (Tcm) (SDOH screening negative and Tobacco screening negative) Social History Tobacco Use Types Packs/Day Years [...] as of this encounter Miscellaneous Notes * Significant Event - Dhiraj Lua - 05/20/2024 2:24 PM EST 05/20/24 1422 Hospital Discharges and Admission for [facility] Type of Visit Hospital Admission Date of Admission/Visit 05/10/24 Date of Discharge 05/17/24 [facility] Diagnosis Alcohol with drawal Disposition Discharged with Home Care Services Follow-Up Actions Follow-Up Needed Provider appointment Follow-Up Outcome Spoke to Patient;Booked Appointment Initial Contact Date 05/20/24 ILDA Hassan placed outbound call to patient for HDF outreach. Patient's name and were confirmed. Patient educated on the importance of follow up with provider following inpatient admission. Patient offered an HDF appt. Patient is agreeable to an appointment and has been scheduled for 05/26/2024t 10am with Dr. Buenrostro. Insurance verified prior to scheduling. Patient also notified that a [facility] pharmacist will be reaching out to them via telephone prior to their scheduled appointment in order to review their medications in preparation for their appointment. Patient advised to bring to appointment a photo id and insurance card. Patient provided with education on contacting the Health Center with any questions or concerns prior to the scheduled appointment. Patient educated on extended clinic hours on Mondays and Wednesdays, and Walk-In Urgent Care Located in [facility] of [facility]. Patient provided with after-hours line for [facility], , which offer night time triage service andoption to transfer to composition teacher provider if needed. CC scanned discharge summary into patient's chart. Biggest concern for appointment at this time is no concerns. Appropriate screenings completed in anticipation of appointment. documented in this encounter Plan of Treatment Upcoming Encounters Date Type Department Care Team (Late st Contact Info) Description 06/13/2024 1:00 PM EDT Office Visit [facility] MED & PEDS [address] [place] [address] Denver George MD [address] [place] [address] 08/23/2024 10:30 AM EDT Office Visit [facility] MED & PEDS [address] [place] [address] Baljeet Champagne MD [address] [place] [address] documented as of this encounter Visit Diagnoses Not on filedocumented in this encounter Care Teams Ship Surveyor Relationship Specialty Start Date End Date Baljeet Champagne MD [address] [place] [address] PCP - General Internal Medicine 06/24/19 Erick A 05/19/24 documented as of this encounter
--- OUTSIDE RECORDS SUMMARY | 2024-06-02 16:20 | XMS_ITS | Encounter Summary ---
Author Organization [employer] Address [address] [place] [address] 7t [place] [address] Care Team Providers Care Supervisor Logging Name Role Phone Baljeet Champagne MD Primary Care Prov ider Encounter Details Date Type Department Care Team (Late Contact Info) Description 08/05/2023 Orders Only [facility] MED & PEDS [address] [place], [place] [phone] Baljeet Champagne MD [address] [place], [place] [phone] Social History Tobacco Use Types Packs/Day Years [...] Description 06/13/2024 1:00 PM EDT Office Visit [facility] MED & PEDS [address] [place], [place] [phone] Denver George MD [address] [place] [address] [phone] 08/23/2024 10:30 AM EDT Office Visit [facility] MED & PEDS [address] [place], [place] [phone] Baljeet Champagne MD [address] [place], [place] [phone] documented as of this encounter Visit Diagnoses Not on filedocumented in this encounter Care Teams Supervisor Logging Relationship Specialty Start Date End Date Baljeet Champagne MD [address] [place] [address] PCP - General Internal Medicine 06/24/19 Erick DISLA 05/19/24 documented as of this encounter
--- OUTSIDE RECORDS SUMMARY | 2024-06-02 16:20 | XMS_ITS | Encounter Summary ---
Author Organization [employer] Address [address] [place] [address] Care Team Providers Care Finisher Polisher Name Role Phone Baljeet Champagne MD Primary Care Prov ider Encounter Details Date Type Department Care Team (Latest Contact Info) Description 05/26/2024 Travel Social History Tobacco Use Types Packs/Day Years [...] 06/13/2024 1:00 PM EDT Office Visit [facility] MED & PEDS [address] [place] [address] Denver George MD [address] [place] [address] 08/23/2024 10:30 AM EDT Office Visit [facility] MED & PEDS [address] [place] [address] Baljeet Champagne MD [address] [place] [address] documented as of this encounter Visit Diagnoses Not on filedocumented in this encounter Care Teams Finisher Polisher Relationship Specialty Start Date End Date Baljeet Champagne MD [address] [place] [address] PCP - General Internal Medicine 06/24/19 Erick VNA 05/19/24 documented as of this encounter
--- OUTSIDE RECORDS SUMMARY | 2024-06-02 16:20 | XMS_ITS | Encounter Summary ---
Author Organization [employer] Address [address] [facility] [address] [place] [address] Care Team Providers Care Facility Worker Name Role Phone Baljeet Champagne MD Primary Care Prov ider Encounter Details Date Type Department Care Team (Late st Contact Info) Description 05/10/2024 Orders Only GENERIC EXTERNAL DATA DEPARTMENT [...] Description 06/13/2024 1:00 PM EDT Office Visit [facility] [address] [place] [address] Denver George MD [address] [place] [phone] 08/23/2024 10:30 AM EDT Office Visit [facility] [address] [place] [address] Baljeet Champagne MD [address] [place] [address] documented as of this encounter Procedures Procedure Name Priority Date/Time Associated Diagnosis Comments URINALYSIS, COMPLETE, WITH REFLEX TO CULTURE Routine 05/10/2024 12:40 PM EST DRUG MONITOR, PANEL 1, SCREEN, URINE Routine 05/10/2024 12:40 PM EST ETHANOL Routine 05/10/2024 9:48 AM EST SARS COV2/INFLUENZA A/B AND RSV RNA QL NAAT Routine 05/10/2024 9:48 AM EST CBC WITH AUTO DIFFERENTIAL Routine 05/10/2024 9:48 AM EST PROTHROMBIN TIME-INR Routine 05/10/2024 9:48 AM EST MAGNESIUM Routine 05/10/2024 9:48 AM EST HEPATIC FUNCTION PANEL Routine 05/10/2024 9:48 AM EST BASIC METABOLIC PANEL Routine 05/10/2024 9:48 AM EST documented in this encounter Results * (ABNORMAL) Drug Monitoring, Panel 1, Screen, Urine (05/10/2024 12:40 PM EST) Opiate Screen Urine Not Detected Not Detect [facility] Comment:Opiate cut-off is 30 0 ng/mL.Positive results are unconfirmed and should not be used fornon-medical purposes. Barbiturates, Urine POSITIVE(A) Not Detect [facility] Comment:Barbiturate cut-off is 200 ng/mL.Positive results are unconfirmed and should not be used fornon-medical purposes. Phencyclidine Screen Urine Not Detected Not Detect [facility] Comment:Phencyclidine cut-of f is 25 ng/mL.Positive results are unconfirmed and should not be used fornon-medical purposes. Amphetamine Screen Urine Not Detected Not Detect [facility] Comment:Amphetamine cut-off is 1000 ng/mL.Positive results are unconfirmed and should not be used fornon-medical purposes. Benzodiazepines Screen Urine POSITIVE(A) Not Detect [facility] Comment:Benzodiazepine cut-o ff is 200 ng/mL.Positive results are unconfirmed and should not be used fornon-medical purposes. Cocaine Screen Urine Not Detected Not Detect [facility] Comment:Cocaine cut-off is 3 00 ng/mL.Positive results are unconfirmed and should not be used fornon-medical purposes. Cannabinoid Screen Urine Not Detected Not Detect [facility] Comment:Cannabinoid cut-off is 50 ng/mL.Positive results are unconfirmed and should not be used fornon-medical purposes. Methadone Screen, Urine Not Detected Not Detect ng/mL [facility] Comment:Methadone cut-off is 300 ng/mL.Positive results are unconfirmed and should not be used fornon-medical purposes. FENTANYL URINE Not Detected Not Detect [facility] Comment:Fentanyl cut-off is 1 ng/mL.Positive results are unconfirmed and should not be used fornon-medical purposes. Oxycodone Urine Screen Not Detected Not Detect ng/mL [facility] Comment:Oxycodone cut-off is 100 ng/mL.Positive results are unconfirmed and should not be used fornon-medical purposes. Buprenorphine Screen Positive(A) Not Detect ng/mL [facility] Comment:Buprenorphine cut-of f is 5 ng/mL.Positive results are unconfirmed and should not be used fornon-medical purposes. 05/10/2024 12:4 0 PM EST 05/10/2024 12:46 PM EST us Generic External Data Provider LAB URINE ORDERAB LES Final Result [facility] [address] [place] [phone] * (ABNORMAL) Urinalysis, Complete, with Reflex to Culture (05/10/2024 12:40 PM EST) Color Urine Dark Yellow [facility] Appearance Urine Cloudy [facility] PH 7.0 5.0 - 9.0 [facility] Glucose Urine UA Negative Negative mg/dL [facility] Urine Blood Small (1+)(A) Negative [facility] Specific [place] - Urine 1.015 1.005 - 1.025 [facility] Urine Protein Trace Neg-Trace mg/dL [facility] Urine Ketones 15 Negative mg/dL [facility] Nitrite Urine Positive(A) Negative [facility] Leukocyte Esterase Urine Moderate (2+)(A) Negative [facility] RBC Urine 0-2 0 - 2 /HPF [facility] Urine WBC 11-20 0 - 5 /HPF [facility] Urine Squamous Epithelial Cell 6-10 0 - 2 /HPF [facility] Urine Bacteria 4+ None Seen [facility] Hyaline Casts, Urine 0-2 0 - 2 /LPF [facility] 05/10/2024 12:4 0 PM EST 05/10/2024 12:46 PM EST Narrative [facility] - 05/10/2024 12:58 PM EST [id number], Clean Catch us Generic External Data Provider LAB URINE ORDERAB LES Final Result [facility] [address] [place] [phone] * SARS-CoV-2 RNA, Influenza A/B, and RSV RNA, Ql NAAT (05/10/2024 9:48 AM EST) Influenza A PCR NEGATIVE Negative [facility] Influenza B PCR NEGATIVE Negative [facility] Resp Syncy Virus RNA Qual PCR NEGATIVE Negative [facility] SARS COV2 PCR NEGATIVE Negative [facility] Comment:All test results mus t [...] use by authorized laboratories.Testing performed on the mig33 GeneXpert utilizingreal-time RT-PCR.All SARS CoV2 and positive influenza A/B results arereported to [facility]. 05/10/2024 9:48 AM EST 05/10/2024 9:50 AM EST Generic External Data Provider LAB MICROBIOLOGY - GENERAL ORDERABLES Final Result Performing Organization Address [facility] Co de Phone Number [facility] [address] [place] [phone] * Ethanol (05/10/2024 9:48 AM EST) ETHANOL (MG/DL) IN SER/PLAS 107 mg/dL [facility] Comment:Serum/plasma ethanol results are to be used formedical/treatment purposes only. 05/10/2024 9:48 AM EST 05/10/2024 9:50 AM EST Generic External Data Provider LAB BLOOD ORDERAB LES Final Result Performing Organization Address [facility] de Phone Number [facility] [address] [place] [phone] * (ABNORMAL) Magnesium (05/10/2024 9:48 AM EST) [facility] Magnesium 1.3(LL) 1.6 - 2.6 mg/dL [facility] Comment:Critical value for t est(s): MAGS Results called to maria r back by: DACIA Person calling: CAMILO Date: Time:10:15 05/10/2024 9:48 AM EST 05/10/2024 9:50 AM EST Generic External Data Provider LAB BLOOD ORDERAB LES Final Result Performing Organization Address [facility] Co de Phone Number [facility] [address] [place] [phone] * (ABNORMAL) Basic Metabolic Panel (05/10/2024 9:48 AM EST) Sodium 145 135 - 145 mmol/L [facility] Potassium 3.4 3.3 - 5.1 mmol/L [facility] Chloride 99 96 - 108 mmol/L [facility] Carbon Dioxide 26 22 - 29 mmol/L [facility] Anion Gap 23(H) 12 - 20 [facility] Urea Nitrogen (BUN) 5(L) 9 - 16 mg/dL [facility] Creatinine, Serum 0.44(L) 0.5 - 1.4 mg/dL [facility] Creatinine Clr Calc Pharmacy 154.4 [facility] Comment:Provided height and weight: 160.02 cm,90.718 kg.eGFR (calculated from the MDRD study equation) and eCrCl(calculated from the Cockcroft-Gault equation) are based ondifferent parameters and may not yield comparable results.If eCrCl result is absurd, please check patient'sheight/weight. Estimated Glomerular Filt Rate >60 [facility] Comment:Chronic Kidney Disea se: Estimated GFR < 60 mL/min/1.88e5Uctvpd Kidney Disease: Estimated GFR < 15 mL/min/1.73m2 Glucose 77 60 - 115 mg/dL [facility] Calcium 7.7(L) 8.4 - 10.2 mg/dL [facility] 05/10/2024 9:48 AM EST 05/10/2024 9:50 AM EST us Generic External Data Provider LAB BLOOD ORDERAB LES Final Result [facility] [address] [place] [phone] * (ABNORMAL) Hepatic Function Panel (05/10/2024 9:48 AM EST) Bilirubin, Total 4.5(H) 0.0 - 1.0 mg/dL [facility] Comment:Slight Icterus. Bilirubin, Direct 3.0(H) 0.0 - 0.5 mg/dL [facility] Comment:Slight Icterus. Aspartate Amino Transferase 175(H) 5 - 31 U/L [facility] Alanine Aminotransferase 24 0 - 31 U/L [facility] Total Protein 6.2(L) 6.5 - 8.0 g/dL [facility] Albumin Level 2.6(L) 3.5 - 5.0 g/dL [facility] Alkaline Phosphatase 274(H) 39 - 117 U/L [facility] 05/10/2024 9:48 AM EST 05/10/2024 9:50 AM EST Generic External Data Provider LAB BLOOD ORDERAB LES Final Result Performing Organization Address [facility] Co de Phone Number [facility] [address] [place] [address] [phone] * (ABNORMAL) Prothrombin Time-INR (05/10/2024 9:48 AM EST) Prothrombin Time 12.7(H) 10.9 - 12.4 SEC [facility] INTERNATIONAL NORM RATIO 1.1 0.9 - 1.1 [facility] Comment:INTERNATIONAL NORMAL IZED RATIO (INR) REFERENCE [...] ORDERAB LES Final Result Performing Organization Address [facility] Co de Phone Number [facility] [address] [place] [address] [phone] * (ABNORMAL) CBC auto differential (05/10/2024 9:48 AM EST) White Blood Count 4.4(L) 4.8 - 10.8 X10*3/uL [facility] Red Blood Count 2.61(L) 4.20 - 5.50 X10*6/uL [facility] Hemoglobin 8.9(L) 12.0 - 16.0 g/dl [facility] Hematocrit 26.8(L) 37.0 - 47.0 % [facility] Mean Corpuscular Volume 102.7(H) 80.0 - 98.0 fL [facility] Mean Corpuscular Hemoglobin 34.1(H) 27.0 - 33.0 pg [facility] Mean Corpuscular HGB Conc 33.2 31.0 - 35.0 g/dl [facility] Red Cell Distribution Width 15.4 11.0 - 16.0 % [facility] Platelet Count 143(L) 160 - 400 X10*3/uL [facility] Mean Platelet Volume 9.5 9.4 - 12.3 fL [facility] Neutrophils Percent Auto 84.4(H) 45 - 73 % [facility] Imm Gran Pct Auto 0.5(H) 0.0 - 0.4 % [facility] Lymphocytes Percent Auto 7.7(L) 20 - 40 % [facility] Monocytes Percent Auto 5.6 2 - 11 % [facility] Eosinophils Percent Auto 0.7 0 - 4 % [facility] Basophils Percent Auto 1.1 0 - 2 % [facility] NRBC Pct Auto 0.0 0.0 - 0.2 /100WBC [facility] Neutrophils Absolute Auto 3.8 2.0 - 8.3 x10*3/uL [facility] Imm Gran Abs Auto 0.02 0.00 - 0.03 X10*3/uL [facility] Lymphocytes Absolute Auto 0.3(L) 1.2 - 4.9 X10*3/uL [facility] Monocytes Absolute Auto 0.3 0.1 - 1.2 X10*3/uL [facility] Eosinophils Absolute Auto 0.0 0.0 - 0.4 X10*3/uL [facility] Basophils Absolute Auto 0.1 0.0 - 0.2 X10*3/uL [facility] NRBC Abs Auto 0.000 0.0 - 0.012 X10*3/uL [facility] 05/10/2024 9:48 AM EST 05/10/2024 9:50 AM EST us Generic External Data Provider LAB BLOOD ORDERAB LES Final Result Performing Organization Address City/State/[facility] Co de Phone Number [facility] [address] [place] [phone] documented in this encounter Visit Diagnoses Not on filedocumented in this encounter Care Teams Facility Worker Relationship Specialty Start Date End Date Baljeet Champagne MD [address] [place] [phone] PCP - General Internal Medicine 06/24/19 documented as of this encounter
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
--- OUTSIDE RECORDS SUMMARY | 2024-06-02 16:20 | XMS_ITS | Encounter Summary ---
Author Organization [employer] Address [address] [facility] 7t [place] [address] Care Team Providers Care Test Conductor Name Role Phone Baljeet Champagne MD Primary Care Prov ider Reason for Visit * Reason Onset Date Comments Hospital Follow-up 05/20/2024 Encounter Details Date Type Department Care Team (Late st Contact Info) Description 05/20/2024 Telephone [facility] [address] [place] [address] Baljeet Champagne MD [address] [place], [place] [phone] Hospital Follow-up Social History Tobacco Use Types Packs/Day Years [...] encounter Miscellaneous Notes * Telephone Encounter - James John - 05/20/2024 2:05 PM EST Tc from pt requesting a HDF appt. Hospital: [facility] Date of admission: 05/10/2024 Discharge date: 05/17/2024 Diagnosed: Alcohol withdrawal and UTI *Send message to [facility] Coordinators documented in this encounter Plan of Treatment Upcoming Encounters Date Type Department Care Team (Late st Contact Info) Description 06/13/2024 1:00 PM EDT Office Visit [facility] [address] [place] [address] Denver George MD [address] [place] [address] 08/23/2024 10:30 AM EDT Office Visit [facility] [address] [place] [address] Baljeet Champagne MD [address] [place] [address] documented as of this encounter Visit Diagnoses Not on filedocumented in this encounter Care Teams Test Conductor Relationship Specialty Start Date End Date Baljeet Champagne MD [address] [place] [address] PCP - General Internal Medicine 06/24/19 [facility] 05/19/24 documented as of this encounter
--- OUTSIDE RECORDS SUMMARY | 2024-06-02 16:20 | XMS_ITS | Encounter Summary ---
Author Organization [employer] Address [address] [place] [address] [address] [place] [address] Care Team Providers Care Geophysical Operator Name Role Phone Baljeet Champagne MD Primary Care Prov ider Encounter Details Date Type Department Care Team (Late Contact Info) Description 08/13/2023 Orders Only [facility] [address] [place] [address] Vanessa George LPN Social History Tobacco Use [...] 06/13/2024 1:00 PM EDT Office Visit [facility] [address] [place] [address] Denver George MD [address] [place] [address] 08/23/2024 10:30 AM EDT Office Visit [facility] [address] [place] [address] Baljeet Champagne MD [address] [place] [address] documented as of this encounter Visit Diagnoses Not on filedocumented in this encounter Care Teams Geophysical Operator Relationship Specialty Start Date End Date Baljeet Champagne MD [address] [place] [phone] PCP - General Internal Medicine 06/24/19 [facility] 05/19/24 documented as of this encounter
--- OUTSIDE RECORDS SUMMARY | 2024-06-02 16:20 | XMS_ITS | Encounter Summary ---
Author Organization [employer] Address 75 [facility] 7t [place] [address] Care Team Providers Care Public Health Professor Name Role Phone Baljeet Champagne MD Primary Care Prov ider Reason for Visit * Reason Onset Date Comments chart prep 05/25/2024 Encounter Details Date Type Department Care Team ([facility] st Contact Info) Description 05/25/2024 Telephone [facility] [address] [place] [address] Franck Buenrostro MD [address] [place] [address] chart prep Social History Tobacco Use Types Packs/Day Years [...] encounter Miscellaneous Notes * Telephone Encounter - [place] - 05/25/2024 4:18 PM EST Chart Prep Labs: done Images: done Vaccines due: yes Referrals: complete Screenings: colonoscopy , mammogram Overdue care gaps: Glucose, Sbirt, SDOH documented in this encounter Plan of Treatment Upcoming Encounters Date Type Department Care Team ([facility] st Contact Info) Description 06/13/2024 1:00 PM EDT Office Visit [facility] [address] [place] [address] Denver George MD [address] [place] [address] 08/23/2024 10:30 AM EDT Office Visit [facility] [address] [place] [address] Baljeet Champagne MD [address] [place] [address] documented as of this encounter Visit Diagnoses Not on filedocumented in this encounter Care Teams Public Health Professor Relationship Specialty Start Date End Date Baljeet Champagne MD [address] [place] [address] PCP - General Internal Medicine 06/24/19 [facility] 05/19/24 documented as of this encounter
== END 2024-06-02 13:37 | disposition home or self-care (01) ==
LOC: HO.HCC 13:36
PROVIDERS: PCP Internal Medicine; Visit Provider Nurse Practitioner Psychiatric/Mental Health
DX: F10.20 Alcohol dependence, uncomplicated (principal); F11.21 Opioid dependence, in remission
CPT/HCPCS: 99214

== ENCOUNTER → 2024-06-02 13:36 | Outpatient (BNVA) | payer BC, MEDICAID, SELFPAY | PROVIDERS: PCP Internal Medicine; Visit Provider Nurse Practitioner Psychiatric/Mental Health | DX: F10.20 Alcohol dependence, uncomplicated (principal); F11.21 Opioid dependence, in remission ==

== ENCOUNTER 2024-08-16 06:11 | Inpatient (IN) | payer BC, MEDICAID, SELFPAY ==
[2024-08-16] VITALS (8 sets, daily range): BP systolic 90–122; BP diastolic 37–58; PULSE 89–109; RESP 16–20; TEMP 36.4–36.7; O2SAT 94–100; BMI 41.7; BMI 43.3
--- NOTE | 2024-08-16 | ECG_ITS ---
Test Reason : fall Blood Pressure : */* mmHG Vent. Rate : 91 BPM Atrial Rate : 91 BPM P-R Int : 152 ms QRS Dur : 86 ms QT Int : 416 ms P-R-T Axes : 70 26 -5 degrees QTcB Int : 511 ms Normal sinus rhythm Nonspecific T wave abnormality Prolonged QT Abnormal ECG When compared with ECG of 10-May-2024 09:35, ST no longer depressed in Anterior leads Nonspecific T wave abnormality, improved in Anterior leads Referred By: Generic ED Physician Electronically Signed By: JAZZY LYNCH MD
--- NOTE | ~2024-08-16 | XR_ITS ---
EXAMINATION: XR CHEST CLINICAL INFORMATION: Cough, risk of aspiration, fluid overload COMPARISON: 04/22/2024. TECHNIQUE: Frontal view of the chest was obtained. FINDINGS: Elevated right hemidiaphragm, unchanged from prior. The cardiac, hilar, and mediastinal contours are normal. The lungs are clear bilaterally. No pneumothorax or effusion. No focal osseous or soft tissue abnormality. XR/XR chest 1V IMPRESSION: No active pulmonary disease. Electronically signed by: Hernán Alan MD 08/18/2024 11:52 AM EDT
--- NOTE | ~2024-08-16 | US_ITS ---
EXAMINATION: US UPPER EXTREMITY VEINS LIMITED FOLLOW UP RIGHT HISTORY: swelling COMPARISON: There are no prior studies for comparison. FINDINGS: There is no evidence of acute DVT in the right upper extremity including the jugular vein, subclavian vein, axillary vein, basilic, brachial and cephalic veins. There is normal compression, color and spectral Doppler appearance of the visualized deep venous system of the right upper extremity. US/US venous duplex UE RT IMPRESSION: No evidence of acute DVT in the right upper extremity. Electronically signed by: Dwaine Mahmood MD 08/26/2024 07:42 AM EDT
[2024-08-16 06:40] LABS: MANUAL DIFF FLAG NO
[2024-08-16 06:44] LABS: Basophils Percent Auto 0.1 % (0-2); Hemoglobin 8.8 g/dl (12.0-16.0); Imm Gran Abs Auto 0.03 X10*3/uL (0.00-0.03); Imm Gran Pct Auto 0.4 % (0.0-0.4); Lymphocytes Absolute Auto 0.3 X10*3/uL (1.2-4.9); Lymphocytes Percent Auto 3.6 % (20-40); Mean Corpuscular HGB Conc 36.7 g/dl (31.0-35.0); Mean Corpuscular Hemoglobin 33.1 pg (27.0-33.0); Mean Corpuscular Volume 90.2 fL (80.0-98.0); Mean Platelet Volume 9.6 fL (9.4-12.3); Monocytes Absolute Auto 0.5 X10*3/uL (0.1-1.2); Monocytes Percent Auto 6.5 % (2-11); Neutrophils Absolute Auto 6.8 x10*3/uL (2.0-8.3); Neutrophils Percent Auto 89.4 % (45-73); Platelet Count 154 X10*3/uL (160-400); Red Blood Count 2.66 X10*6/uL (4.20-5.50); White Blood Count 7.6 X10*3/uL (4.8-10.8)
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
[2024-08-16 06:58] LABS: Alanine Aminotransferase 80 U/L (0-31); Albumin Level 2.9 g/dL (3.5-5.0); Alkaline Phosphatase 437 U/L (39-117); Anion Gap 25 (12-20); Aspartate Amino Transferase 289 U/L (5-31); Blood Urea Nitrogen 6 mg/dL (9-16); Calcium 7.8 mg/dL (8.4-10.2); Carbon Dioxide 17 mmol/L (22-29); Chloride 89 mmol/L (96-108); Creatinine Clr Calc Pharmacy 159.2; Estimated Glomerular Filt Rate > 60; Ethanol 430 mg/dL; Glucose Random 101 mg/dL (60-115); Lipase 8 U/L (8-78); Magnesium 1.5 mg/dL (1.6-2.6); Potassium 3.4 mmol/L (3.3-5.1); Sodium 128 mmol/L (135-145); Total Protein 6.5 g/dL (6.5-8.0)
[2024-08-16 07:00] LABS: Troponin-I High Sensitivity 4.2 ng/L (<3.5-17.0)
[2024-08-16 07:21] LABS: Ammonia 89 umol/L (13-55)
--- OUTSIDE RECORDS SUMMARY | 2024-08-16 07:24 | XMS_ITS | Encounter Summary ---
Author Organization [employer] Address [address] [place] [phone] Care Team Providers Care Critical Care Physician Assistant Name Role Phone Baljeet Champagne MD Primary Care Prov ider Encounter Details Date Type Department Care Team (Late Contact Info) Description 08/05/2023 Orders Only [facility] [address] [place], [place] [phone] Baljeet Champagne MD [address] [place], [place] [phone] Social History Tobacco Use Types Packs/Day Years [...] Care Team (Late st Contact Info) Description 08/23/2024 10:30 AM EDT Office Visit [facility] [address] [place] [address] Baljeet Champagne MD [address] [place], [place] [phone] documented as of this encounter Visit Diagnoses Not on filedocumented in this encounter Care Teams Critical Care Physician Assistant Relationship Specialty Start Date End Date Baljeet Champagne MD [address] [place], [place] [phone] PCP - General Internal Medicine 06/24/19 Erick DISLA 05/19/24 documented as of this encounter
--- OUTSIDE RECORDS SUMMARY | 2024-08-16 07:24 | XMS_ITS | Encounter Summary ---
Author Organization [employer] Address [address] [facility] [address], [place] [address] Care Team Providers Care Territory Service Representative Name Role Phone Baljeet Champagne MD Primary Care Prov ider Encounter Details Date Type Department Care Team (Late Contact Info) Description 08/12/2023 Telephone [facility] MEDICINE [address] [place] [address] Baljeet Champagne MD [address] [place], [place] [phone] Social History Tobacco Use Types Packs/Day Years [...] Department Care Team (Late Contact Info) Description 08/23/2024 10:30 AM EDT Office Visit [facility] MED & PEDS [address] [place], [place] [phone] Baljeet Champagne MD [address] [place], [place] [phone] documented as of this encounter Visit Diagnoses Not on filedocumented in this encounter Care Teams Territory Service Representative Relationship Specialty Start Date End Date Baljeet Champagne MD [address] [place], [place] [phone] PCP - General Internal Medicine 06/24/19 Erick DISLA 05/19/24 documented as of this encounter
--- OUTSIDE RECORDS SUMMARY | 2024-08-16 07:24 | XMS_ITS | Clinical Summary ---
Author Organization [employer] Address [address] [facility] [address] [place] [address] Care Team Providers Care Front Office Associate Name Role Phone Baljeet Champagne MD Primary Care Prov ider Allergies No known active allergies Medications * This document contains information received from the source organization and may not represent a complete record from that organization. Sublocade 300 MG/1.5ML injection Inject 1.5 mL under the skin every month to absorb continually. 04/01/2024 Active FLUoxetine (PROzac) 10 MG capsule Take 1 capsule by mouth Once per day. 05/17/2024 Active hydrOXYzine HCl (Atarax) 25 MG tablet Take 1 tablet by mouth every 6 (six) hours if needed for anxiety. 05/17/2024 Active cyanocobalamin (Vitamin B-12) 1000 MCG tablet Take 1 tablet by mouth Once per day. OTC Active gabapentin (Neurontin) 100 MG capsuleIndicati ons:Neuropathy Take 3 capsules (300 mg) by mouth every 8 (eight) hours. 90 capsule 1 05/26/2024 05/26/19 26 Active Multiple Vitamin (multivitamin) tabletIndicatio ns:Neuropathy,A lcohol use disorder, severe, dependence (CMS/HCC) Take 1 tablet by mouth Once per day. OTC 30 tablet 3 05/26/2024 Active folic acid (Folvite) 1 MG tabletIndicatio ns:Alcohol use disorder, severe, dependence (CMS/HCC) Take 1 tablet (1 mg) by mouth Once per day. 30 tablet 3 05/26/2024 05/26/19 26 Active Active Problems Problem Noted Date Diagnosed [...] PM EST): Patient was recently discharged from [facility], found with altered mental status and hyponatremia, [...] Encounters Date Type Department Care Team Description 06/07/2024 Telephone [facility] [address] [place] [address] Baljeet Champagne MD Prior Authorization 05/26/2024 10:00 AM EST Telemedicine [facility] [address] [place] [address] Franck Buenrostro MD Neuropathy (Primary Dx); Alcohol use disorder, severe, dependence (CMS/HCC) 05/26/2024 Travel 05/25/2024 Telephone [facility] [address] [place] [address] Franck Buenrostro MD chart prep 05/24/[address] [facility] [address] [place] [address] Promise George, PharmFavian 05/20/[address] [facility] [address] [place] [address] Baljeet Champagne MD Transition Of Care (Tcm) (SDOH screening negative and Tobacco screening negative) 05/20/2024 Telephone [facility] [address] [place] [address] Baljeet Champagne MD Hospital Follow-up from Last 3 Months Immunizations Name Administration Dates Next Due Td (adult), 5 Lf tetanus tox oid, preservative free, adsorbed 06/27/2013 Tdap 11/12/2010 Social History Tobacco Use Types Packs/Day Years Used Date Smoking Tobacco: Never Assessed Housing Stability Answer Date Recorded What is your housing situation today? I have floresmellisa pennington 05/20/[address] you [...] Upcoming Encounters Date Type Department Care Team ([facility] st Contact Info) Description 08/23/2024 10:30 AM EDT Office Visit [facility] [address] [place] [address] Baljeet Champagne MD [address] [place] [address] Health Maintenance Due Date Last Done Comments [...] Procedure Name Priority Date/Time Associated Diagnosis Comments THINPREP IMAGING PAP AND HPV MRNA E6/E7 WITH REFLEX TO HPV 16,18/45 Routine 03/26/2021 10:22 AM EST [facility] HISTORICAL HIV AB/AG Routine 06/24/2019 2:12 PM EDT from Last 3 Months or Most Recently Relevant to Health Maintenance Results * THINPREP TIS PAP AND HPV mRNA E6/E7 WITH REFLEX TO HPV 16,18/45 (03/26/2021 10:22 AM EST) Clinical Information: None given [facility] COMMENT SEE COMMENT [facility] ON [...] has been evaluated with computer assisted technology. [facility] Flow Coordinator: SEE COMMENT [facility] Comment: YOJANA CT(ASCP) CT screening location: [address] ??[id number] HPV nRNA E6/E7 Not Detected Not Detected [facility] Comment: Methodology: Head Grinder-Mediated Amplification This assay detects E6/E7 viral messenger RNA (mRNA) from 14 high-risk HPV types (16,18,31,33,35,39,45,51,52,56,58,59,66,68). ? The analytical performance characteristics of this assay have been determined by [employer]. The modifications have not been cleared or approved by the FDA. This assay has been validated pursuant to the CLIA regulations and is used for clinical purposes. ?? For additional information, please refer to http://education.[employer]enta/faq/YNT418q3 (This link if provided for information/ educational purposes only.) Interpretation/Re sult: Negative for intraepithelial lesion or malignancy. [facility] LMP: NONE [facility]IVEN [facility] Prev. BX: NONE [facility]IVEN [facility] Prev. PAP: NONE GIVEN [facility] SOURCE: None given [facility] Statement Of Adequacy: SEE COMMENT [facility] Comment: Satisfactory for evaluation. Endocervical/transformation zone component present. Age and/or menstrual status not provided 03/26/2021 10:2 2 AM EST us Moni [facility] LAB PATHOLOGY ORDERABLES Final Result [facility] [address] * HIV AB/AG (06/24/2019 2:12 PM [...] detection of this assay. ?? The [employer] Quality Tester HIV Ag/Ab Combo assay result and supplemental assay results should be interpreted in conjunction with the patient's clinical presentation, history and other laboratory results. ??If the results are inconsistent with clinical evidence, additional testing is suggested to confirm the result. 06/24/2019 2:12 PM EDT us Baljeet Perry MD HISTORICAL/NON ORD ERABLE LABS Final Result [facility] [address] [place] [id number], from Last 3 Months or Most Recently Relevant to Health Maintenance Insurance Care Teams Front Office Associate Relationship Specialty Start Date End Date Baljeet Champagne MD [address] [place] [id number] PCP - General Internal Medicine 06/24/19 Erick DILSA 05/19/24
--- OUTSIDE RECORDS SUMMARY | 2024-08-16 07:24 | XMS_ITS | Clinical Summary ---
Author Organization [facility] Address [address] [address] Care Team Providers Care Metal Annealer Name Role Phone Unavailable Primary Care Provider [...] (1 of 3 - 19+ 3-dose series) 11/08 Colorectal Cancer Screening: Annual FOBT 2017 Colorectal Cancer Screening: Colonoscopy 2017 Colorectal Cancer Screening: Sigmoidoscopy 2017 Pneumococcal Vaccine: 50+ Years (1 of 1 - PCV) 019 Influenza Vaccine (Season Ended) 2024 Insurance [facility]
--- OUTSIDE RECORDS SUMMARY | 2024-08-16 07:24 | XMS_ITS | Encounter Summary ---
Author Organization [employer] Address [address] [facility] 7 [place] [address] Care Team Providers Care Medicaid Specialist Name Role Phone Baljeet Champagne MD Primary Care Prov ider Reason for Visit * Reason Onset Date Comments FYI 10/07/2023 Encounter Details Date Type Department Care Team (Late st Contact Info) Description 10/07/[address] [facility] [address] [place], [place] [phone] Baljeet Champagne MD [address] [place], [place] [phone] FYI Social History Tobacco Use Types Packs/Day [...] 10/07/2023 1:10 PM EDT Tc from [facility] calling to inform PCP pt admission date have been move to 10/13 as pt request. Any questions contact Real at [phone] documented in this encounter Plan of Treatment Upcoming Encounters Date Type Department Care Team (Late st Contact Info) Description 08/23/2024 10:30 AM EDT Office Visit [facility] [address] [place], [place] [phone] Baljeet Champagne MD [address] [place] [address] documented as of this encounter Visit Diagnoses Not on filedocumented in this encounter Care Teams Medicaid Specialist Relationship Specialty Start Date End Date Baljeet Champagne MD [address] [place] [address] PCP - General Internal Medicine 06/24/19 Erick DISLA 05/19/24 documented as of this encounter
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
--- OUTSIDE RECORDS SUMMARY | 2024-08-16 07:24 | XMS_ITS | Encounter Summary ---
Author Organization [employer] Address [address] [facility] [address] [place] [address] Care Team Providers Care Primary Care Physician Name Role Phone Baljeet Champagne MD Primary Care Prov ider Encounter Details Date Type Department Care Team (Late st Contact Info) Description 08/13/2023 Orders Only [facility] [address] [place] [address] Vanessa George LPN Social History Tobacco Use [...] Description 08/23/2024 10:30 AM EDT Office Visit [facility] [address] [place] [address] Baljeet Champagne MD [address] [place] [address] documented as of this encounter Visit Diagnoses Not on filedocumented in this encounter Care Teams Primary Care Physician Relationship Specialty Start Date End Date Baljeet Champagne MD [address] [place] [address] PCP - General Internal Medicine 06/24/19 Erick DISLA 05/19/24 documented as of this encounter
--- OUTSIDE RECORDS SUMMARY | 2024-08-16 07:24 | XMS_ITS | Encounter Summary ---
Author Organization [employer] Address [address] [place] [address] Care Team Providers Care Geomagnetician Name Role Phone Baljeet Champagne MD Primary Care Prov ider Encounter Details Date Type Department Care Team (Late Contact Info) Description 05/05/2023 Abstract [facility] PEDS [address] [place] [address] Baljeet Champagne MD [address] [place] [address] Social History Tobacco Use Types Packs/Day Years [...] Description 08/23/2024 10:30 AM EDT Office Visit [facility] [address] [place] [address] Baljeet Champagne MD [address] [place] [address] documented as of this encounter Visit Diagnoses Not on filedocumented in this encounter Care Teams Geomagnetician Relationship Specialty Start Date End Date Baljeet Champagne MD [address] [place] [address] PCP - General Internal Medicine 06/24/19 Erick DISLA 05/19/24 documented as of this encounter
--- OUTSIDE RECORDS SUMMARY | 2024-08-16 07:24 | XMS_ITS | Encounter Summary ---
Author Organization [employer] Address [address] [place] [address] Care Team Providers Care Production Drilling Machine Operator Name Role Phone Baljeet Champagne MD Primary Care Prov ider Reason for Visit * Reason Onset Date Comments Appointment Request 07/03/2022 Encounter Details Date Type Department Care Team ([facility] Contact Info) Description 07/03/2022 Telephone [facility] [address] [place] [address] Baljeet Champagne MD [address] [place] [address] Appointment Request Social History Tobacco Use Types [...] Description 08/23/2024 10:30 AM EDT Office Visit [facility] [address] [place] [address] Baljeet Champagne MD [address] [place], [place] [phone] documented as of this encounter Visit Diagnoses Not on filedocumented in this encounter Care Teams Production Drilling Machine Operator Relationship Specialty Start Date End Date Baljeet Champagne MD [address] [place] [address] PCP - General Internal Medicine 06/24/19 Erick DISLA 05/19/24 documented as of this encounter
--- NOTE | 2024-08-16 07:34 | ED_ITS ---
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 She states she has been so weak that she has been unable to go to the bathroom Onset (ago): day(s) (3) Radiation: non-radiation Severity: moderate Relieving factors: none Exacerbating factors: none Treatments prior to arrival: none Related Data Home Medications ?Medication ?Instructions ?Recorded ?Confirmed buprenorphine 300 mg/1.5 mL 300 mg subcut QMONTH 05/10/24 05/10/24 solution,exten.rel.subcutaneous syringe (Sublocade) folic acid 1 mg tablet 1 mg PO DAILY 06/02/24 06/02/24 gabapentin 100 mg capsule 100 mg PO BID 06/02/24 06/02/24 gabapentin 300 mg capsule 300 mg PO BEDTIME 06/02/24 06/02/24 thiamine HCl (vitamin B1) 100 mg 100 mg PO DAILY 06/02/24 06/02/24 capsule Previous Rx's ?Medication ?Instructions ?Recorded fluoxetine 10 mg capsule 10 mg PO DAILY #30 caps 05/17/24 hydroxyzine HCl 25 mg tablet 25 mg PO Q6H PRN Anxiety #56 tabs 05/17/24 buprenorphine 8 mg-naloxone 2 mg 1 film buccal BID #60 ea 06/01/24 sublingual film (Suboxone) buprenorphine 8 mg-naloxone 2 mg 2 film buccal DAILY 30 days #60 ea 07/26/24 sublingual film (Suboxone) buprenorphine 8 mg-naloxone 2 mg 2 film buccal DAILY 14 days #28 ea 07/29/24 sublingual film (Suboxone) Allergies Allergy/AdvReac Type Severity Reaction Status Date / Time No Known Allergies Allergy Verified 08/16/24 06:33 Review of Systems 2 Constitutional: Constitutional: Denies fever(s) Cardiovascular: Cardiovascular: Reports no additional cardiovascular complaints Respiratory: Respiratory: Reports no additional respiratory complaints Neurologic: Reports system reviewed and no additional complaints, except as documented PMFSH Past Medical History Attestation statement: The following information was validated with the patient. Medical History Alcoholism Depression with anxiety Alcohol use disorder, severe, dependence Alcohol withdrawal hallucinosis Falls frequently Pedal edema Cellulitis Alcohol intoxication Korsakoff syndrome Thrombocytopenia Alcohol withdrawal syndrome Abscess of axilla, right Rash Encounter for monitoring Suboxone maintenance therapy Hypertension Opioid use disorder Alcohol abuse Surgical History History of total knee arthroplasty History of gastric surgery Family History Family History Father Lung cancer Social History Social History Household Members: Significant Other Household Members Other:: 2 Housing: House Do you presently have visiting nurse or other home services: No Unable to assess alcohol history related to: Unknown Alcohol intake: current Alcohol intake frequency: 3 or more drinks per day Alcohol type: hard liquor Comment: refuses alarm Patient Tobacco Use Status: Former Tobacco user Tobacco use type: Cigarette Years Smoked: 2 Smoked in Last 30 Days: No Second Hand Smoke Exposure: No Use of substances other than those prescribed or required for medical reasons: No Advance Directives: No Advance Directives Information Provided: Yes Do you have a plan to hurt others: No Plan Nutrition Risks: Poor intake 0-25% >4 days Patient : No service: No Current occupational status: employed Physical Exam ED Vital Signs: Vital Signs - 24 hr 08/16/24 06:31 08/16/24 07:51 08/16/24 08:25 Temperature 97.5 F Pulse Rate 93 93 Respiratory Rate 20 Blood Pressure 95/37 L 90/43 L 122/53 L Pulse Oximetry 100 Oxygen Delivery Method Room Air BMI result Body Mass Index 41.7 no acute distress ill looking jaundice Const General: cooperative Nutritional Appearance: average body habitus Orientation/consciousness: patient oriented x3 HENMT Head: Yes normal to inspection Eyes Other: jaundice Neck Neck: Yes normal visual inspection Chest Chest palpation & inspection: normal inspection of the chest Resp Effort & Inspection: normal respiratory effort Auscultation: clear to auscultation bilaterally Cardio Jugular venous distension: no JVD Rate: regular rate Rhythm: regular rhythm GI Inspection: Yes normal to inspection Palpation (GI): Soft to palpation, not firm, nontender and no guarding Auscultation: normal bowel sounds Skin General skin exam: no rashes or lesions noted, elasticity normal and turgor normal Lesions: no lesions Rashes: no rashes Neuro General: patient oriented x3 Medications Administered Generic Name Dose Route Start Last Admin Trade Name Jimena PRN Reason Stop Dose Admin Magnesium Sulfate 2 gm in 50 mls @ 25 mls/hr 08/16/24 07:24 08/16/24 07:37 Magnesium Sulfate/H2o IV 08/16/24 09:23 25 mls/hr ONCE ONE Administration Discontinued Medications Generic Name Dose Route Start Last Admin Trade Name Jimena PRN Reason Stop Dose Admin Lactated Ringer's 1,000 mls @ 999 mls/hr 08/16/24 07:30 08/16/24 08:11 Lr IV 08/16/24 08:30 999 mls/hr .Q1H1M LOURDES Administration Lactated Ringer's 1,000 mls @ 999 mls/hr 08/16/24 07:30 08/16/24 08:11 Lr IV 08/16/24 08:30 999 mls/hr .Q1H1M LOURDES Administration Medical Decision Making Medical Decision Making [facility] Narrative: patient denies history of alcohol abuse here for generalized weakness appear jaundiced we will check labs Differential Diagnosis Differential Diagnoses: The differential diagnosis associated with the presentation includes liver failure /hepatic encephalopathy/ anemia Admission/Observation Consideration of admission/observation: Escalation of care including admission/observation considered Consult Healthcare Provider Management of the patient was discussed with: Hospitalist Lab Data [facility] Lab Attestation statement: I reviewed the patient's lab results. 08/16/24 06:35 08/16/24 06:35 Labs: Lab Results 08/16/24 08/16/24 Range/Units 06:35 07:10 WBC 7.6 (4.8-10.8) X10*3/uL RBC 2.66 L (4.20-5.50) X10*6/uL Hgb 8.8 L (12.0-16.0) g/dl Hct 24.0 L (37.0-47.0) % MCV 90.2 (80.0-98.0) fL MCH 33.1 H (27.0-33.0) pg MCHC 36.7 H (31.0-35.0) g/dl RDW 25.0 H (11.0-16.0) % Plt Count 154 L (160-400) X10*3/uL MPV 9.6 (9.4-12.3) fL Immature Gran % (Auto) 0.4 (0.0-0.4) % Neut % (Auto) 89.4 H (45-73) % Lymph % (Auto) 3.6 L (20-40) % Bremer % (Auto) 6.5 (2-11) % Eos % (Auto) 0.0 (0-4) % Baso % (Auto) 0.1 (0-2) % Lymph # (Auto) 0.3 L (1.2-4.9) X10*3/uL Bremer # (Auto) 0.5 (0.1-1.2) X10*3/uL Eos # (Auto) 0.0 (0.0-0.4) X10*3/uL Baso # (Auto) 0.0 (0.0-0.2) X10*3/uL Abs Immat Gran (auto) 0.03 (0.00-0.03) X10*3/uL Absolute Neuts (auto) 6.8 (2.0-8.3) x10*3/uL Absolute Nucleated RBC 0.000 (0.0-0.012) X10*3/uL Nucleated RBC % (auto) 0.0 (0.0-0.2) /100WBC Sodium 128 L (135-145) mmol/L Potassium 3.4 D (3.3-5.1) mmol/L Chloride 89 L (96-108) mmol/L Carbon Dioxide 17 L (22-29) mmol/L Anion Gap 25 H (12-20) BUN 6 L (9-16) mg/dL Creatinine 0.45 L (0.5-1.4) mg/dL Estim Creat Clear Calc 159.2 Estimated GFR > 60 Random Glucose 101 (60-115) mg/dL Calcium 7.8 L D (8.4-10.2) mg/dL Magnesium 1.5 L (1.6-2.6) mg/dL Total Bilirubin 11.0 H (0.0-1.0) mg/dL AST 289 H (5-31) U/L ALT 80 H (0-31) U/L Alkaline Phosphatase 437 H (39-117) U/L Ammonia 89 H (13-55) umol/L Total Creatine Kinase 641 H (26-140) U/L Troponin I High Sens 4.2 D (<3.5-17.0) ng/L Total Protein 6.5 (6.5-8.0) g/dL Albumin 2.9 L (3.5-5.0) g/dL Lipase 8 (8-78) U/L Ethyl Alcohol 430 H* mg/dL Independent Interpretation I performed an independent interpretation of an: EKG Interpretation: EKG was reviewed interpreted by me as normal sinus rhythm rate [address]-T changes External Record Review External record reviewed: Inpatient record Chronic Conditions Patient?s care impacted by: Other (polysubtsance abuse) Critical Care Time Critical Care Time Critical Care Time: Yes Total Critical Care Time: 60 Attestation: anion gap acidosis,hypomagnesemia,hypotension on arrival requiring fluid resuscitation Discharge Plan Discharge Clinical Impression: High anion gap metabolic acidosis, Acute alcoholic hepatitis, Hypomagnesemia Anemia Qualifiers: Anemia type: unspecified type Qualified Code(s): D64.9 - Anemia, unspecified Patient Disposition: Admitted As Inpatient Interventions: Admission Worksheet (ED) Last Done: 08/16/24 08:45
[2024-08-16] MEDS: Magnesium Sulfate/H2O 2 GM/50 ML PIGGYBACK IV (07:37)
[2024-08-16] MEDS: Lactated Ringers 1,000 ML 999 ML IV ×2 (08:11)
--- NOTE | 2024-08-16 08:53 | P.HPHOSP_ITS ---
History of Present Illness Date of Service: 08/16/24 Chief Complaint: weakness, falls 53F PMH etoh dependence, morbid obesity s/p gastric bypass, etoh fatty liver, mood disorder, opiate dependence, was brought in by ambulance for weakness and falls. Patient reports that her has been called ambulance because he could not deal with her anymore. She reports that she has been feeling weak unable to ambulate unable to transfer to wheelchair and has been falling. Most recently was found on the floor covered in feces. Continues to drink beer and vodka daily. Noted to have worsening jaundice. Patient also reports increasing edema. Denies chest pain, shortness breath, nausea vomiting, abdominal pain, fever chills. In ED, noted to have bilirubin of 11. Review of Systems 2 Review of Systems: Yes all other systems are reviewed and are negative [facility] Medical History Alcoholic hepatitis Alcoholism Depression with anxiety Alcohol use disorder, severe, dependence Alcohol withdrawal hallucinosis Falls frequently Pedal edema Cellulitis Alcohol intoxication Korsakoff syndrome Thrombocytopenia Alcohol withdrawal syndrome Abscess of axilla, right Rash Encounter for monitoring Suboxone maintenance therapy Hypertension Opioid use disorder Alcohol abuse Family History Father Lung cancer Surgical History (Updated 08/16/24 @ 09:02 by Fly Lozada MD) Gastric bypass status for obesity History of total knee arthroplasty History of gastric surgery Social History Household Members: Significant Other Household Members Other:: 2 Housing: House Do you presently have visiting nurse or other home services: No Unable to assess alcohol history related to: Unknown Alcohol intake: current Alcohol intake frequency: 3 or more drinks per day Alcohol type: hard liquor Comment: refuses alarm Patient Tobacco Use Status: Former Tobacco user Tobacco use type: Cigarette Years Smoked: 2 Smoked in Last 30 Days: No Second Hand Smoke Exposure: No Use of substances other than those prescribed or required for medical reasons: No Advance Directives: No Advance Directives Information Provided: Yes Do you have a plan to hurt others: No Plan Nutrition Risks: Poor intake 0-25% >4 days Patient : No service: No Current occupational status: employed Meds Allergies Allergy/AdvReac Type Severity Reaction Status Date / Time No Known Allergies Allergy Verified 08/16/24 06:33 Active Medications: Current Medications Magnesium Sulfate (Magnesium Sulfate/H2o) 2 gm in 50 mls @ 25 mls/hr IV ONCE ONE Stop: 08/16/24 09:23 Last Admin: 08/16/24 07:37 Dose: 25 mls/hr Home Medications ?Medication ?Instructions ?Recorded ?Confirmed ?Last Taken ?Type buprenorphine 300 mg/1.5 mL 300 mg subcut QMONTH 05/10/24 05/10/24 Unknown History solution,exten.rel.subcutaneous syringe (Sublocade) folic acid 1 mg tablet 1 mg PO DAILY 06/02/24 06/02/24 Unknown History gabapentin 100 mg capsule 100 mg PO BID 06/02/24 06/02/24 Unknown History gabapentin 300 mg capsule 300 mg PO BEDTIME 06/02/24 06/02/24 Unknown History thiamine HCl (vitamin B1) 100 mg 100 mg PO DAILY 06/02/24 06/02/24 Unknown History capsule Physical Exam 2 Vital Signs and Narrative: Vital Signs: Last Vital Signs Temp 97.5 F 08/16/24 06:31 Pulse 93 08/16/24 08:25 Resp 20 08/16/24 06:31 BP 122/53 L 08/16/24 08:25 Pulse Ox 100 08/16/24 06:31 O2 Del Method Room Air 08/16/24 06:31 BMI result Body Mass Index 41.7 Alert oriented x3, ill-appearing, jaundice, poor dentition, covered in bruises but no large area ecchymosis or trauma No acute distress, lungs clear, abdomen soft and nondistended, bilateral lower extremity edema with mild stasis dermatitis Mild asterixis, no signs of withdrawal. Adequate insight but with confabulation and fixations. Diffusely weak without focal deficit Results Labs 08/16/24 06:35 08/16/24 06:35 Labs: Laboratory Results - last 24 hr 08/16/24 08/16/24 06:35 07:10 MCV 90.2 MCH 33.1 H MCHC 36.7 H RDW 25.0 H Plt Count 154 L MPV 9.6 Immature Gran % (Auto) 0.4 Neut % (Auto) 89.4 H Lymph % (Auto) 3.6 L [place] % (Auto) 6.5 Eos % (Auto) 0.0 Baso % (Auto) 0.1 Lymph # (Auto) 0.3 L [place] # (Auto) 0.5 Eos # (Auto) 0.0 Baso # (Auto) 0.0 Abs Immat Gran (auto) 0.03 Absolute Neuts (auto) 6.8 Absolute Nucleated RBC 0.000 Nucleated RBC % (auto) 0.0 Anion Gap 25 H Estim Creat Clear Calc 159.2 Estimated GFR > 60 Random Glucose 101 Calcium 7.8 L D Magnesium 1.5 L Total Bilirubin 11.0 H AST 289 H ALT 80 H Alkaline Phosphatase 437 H Ammonia 89 H Total Creatine Kinase 641 H Total Protein 6.5 Albumin 2.9 L Lipase 8 Ethyl Alcohol 430 H* Assessment and Plan (1) Alcoholic hepatitis: Status: Acute Plan 53F PMH etoh dependence, morbid obesity s/p gastric bypass, etoh fatty liver, mood disorder, opiate dependence, was brought in by ambulance for weakness and falls Acute metabolic encephalopathy due to acute hepatic encephalopathy and acute alcoholic hepatitis as well as alcohol intoxication Lactulose, monitor LFTs, alcohol abstinence, Addiction team eval, MEY Folic acid, thiamine, multivitamin Acute hyponatremia Likely combination of poor solute intake/ beer potomania and 3rd spacing from acute alcoholic hepatitis Fluid restrict, monitor Acute hypomagnesemia Replace and monitor Morbid obesity status post gastric bypass Opiate dependence Reports being on Suboxone, follow up Addiction DVT prophylaxis-mechanical due to extensive bruising Full code Given degree of hepatitis expected require at least 2 midnights inpatient Quality Stroke Does the patient have a stroke diagnosis?: No VTE Prior VTE?: No VTE Risk Level:: Medical - moderate - high VTE Device Contraindication: N/A - Device Ordered VTE Drug Contraindication: Treatment Not Tolerated
--- NOTE | 2024-08-16 09:11 | PHA.MEDREC ---
Pharmacy Consult ? Medication Reconciliation Pharmacy has completed the medication reconciliation. Spoke with patient at bedside, she was able to confirm her home meds but states she stopped taking most of them. She confirmed Soboxone is 2 films daily but she tries not to use them every day. No longer receiving sublocade as she is in a wheel chair and cannot get to the clinic to receive it. She says she stopped her fluoxetine and she has folic acid, thiamine, magnesium, and a multi vitamin at home but doesn't take them regularly. She was okay receiving them here though, so they were left on.
[2024-08-16] MEDS: Folic Acid 1 MG TABLET PO (09:36)
[2024-08-16] MEDS: Lactulose 20 GM/30 ML SOLUTION PO ×2 (09:36→21:06)
[2024-08-16] MEDS: Multivitamin TABLET 1 TAB PO (09:36)
[2024-08-16] MEDS: Thiamine HCL 100 MG TABLET PO (09:36)
[2024-08-16 09:41] LABS: INTERNATIONAL NORM RATIO 1.4 (0.9-1.1); Prothrombin Time 15.7 SEC (10.9-12.4)
--- NOTE | 2024-08-16 10:11 | PC.NURSE ---
Pt A+Ox2, oriented to self, birthday, year, confused to time and situation; pt talking to herself at times in room; Ammonis level 89, Lactulose gv per orders; pt jaundiced with yellow sclera; pt reports 10/10 generalized pain; MD made aware; pt repeatedly asking for Suboxone; MD aware
[2024-08-16] MEDS: Thiamine HCL 200 MG in 0.9 % Sodium Chloride 100 ML 204 MG IV (10:46)
[2024-08-16] MEDS: Buprenorphine/Naloxone 8/2 mg FILM 1 FILM BUCCAL (10:46)
--- NOTE | 2024-08-16 10:46 | P.CNGI_ITS ---
History of Present Illness Data of Consult Service Date: 08/16/24 Requesting physician: Fly Lozada Primary Care Provider: Baljeet Perry MD HPI Reason for consult: alcoholic hepatitis 53F PMH etoh dependence, morbid obesity s/p gastric bypass, etoh fatty liver, mood disorder, opiate dependence, who I am seeing for abn LFT Patient was brought in by due to weakness and falls. She has been getting weaker, drinking beer and vodka daily. Over last several months difficult to ambulated and sister bought her a wheelchair. She has also noted swelling in legs and yellowing of skin. She denies chest pain, shortness breath, nausea vomiting, abdominal pain, fever chills. No rectal bleeding or melena. Denies using drugs, taking herbs or supplements, hardly eating just drinking alcohol LABS: Raised Bili 11, raised AST, ALT, CK, anemia, low albumin--has been similar in past 6 months but bili higher US 04/06/24- cholecystectomy, fatty liver Review of Systems 2 Review of Systems: Constitutional : No Weight loss, No Fever, No Chills ENT/Mouth : No sore throat, No Rhinorrhea Eyes: No Swelling, No Redness Cardiovascular : No Chest Pain, No SOB, No Edema Respiratory : No Cough, No Sputum, No Wheezing Gastrointestinal : see HPI Genitourinary : NO Dysuria, No Urinary Frequency, No Hematuria, No Urgency Musculoskeletal : + joint pain, No Myalgias, No Joint Swelling Skin : No Skin Lesions, No rash Neuro : + Weakness, No Numbness, No Dizziness, No Headache Psych : No Anxiety/Panic, No Depression Heme/Lymph: No Bruising, No Lymphadenopathy Endocrine : No Polyuria, No Polydipsia All other systems reviewed and are negative. [facility] Past Medical History Medical History Alcoholic hepatitis Alcoholism Depression with anxiety Alcohol use disorder, severe, dependence Alcohol withdrawal hallucinosis Falls frequently Pedal edema Cellulitis Alcohol intoxication Korsakoff syndrome Thrombocytopenia Alcohol withdrawal syndrome Abscess of axilla, right Rash Encounter for monitoring Suboxone maintenance therapy Hypertension Opioid use disorder Alcohol abuse Family History Family History Father Lung cancer Surgical History Surgical History (Updated 08/16/24 @ 09:02 by Fly Lozada MD) Gastric bypass status for obesity History of total knee arthroplasty History of gastric surgery Social History Social History Household Members: Spouse Household Members Other:: 2 Housing: House Do you presently have visiting nurse or other home services: No Unable to assess alcohol history related to: Unknown Alcohol intake: current Alcohol intake frequency: 3 or more drinks per day Alcohol type: hard liquor Comment: refuses alarm Patient Tobacco Use Status: Former Tobacco user Tobacco use type: Cigarette Years Smoked: 2 Second Hand Smoke Exposure: No service: No Current occupational status: employed Meds Allergies Allergy/AdvReac Type Severity Reaction Status Date / Time No Known Allergies Allergy Verified 08/16/24 06:33 Active Medications: Current Medications Buprenorphine/Naloxone (Buprenorphine/Naloxone 8/2 Mg Film) 1 film BUCCAL DAILY [facility] Last Admin: 08/16/24 10:46 Dose: 1 film Folic Acid (Folic Acid 1 Mg Tablet) 1 mg PO DAILY [facility] Last Admin: 08/16/24 09:36 Dose: 1 mg Gabapentin (Gabapentin 300 Mg Capsule) 300 mg PO BID [facility] Hydroxyzine HCl (Hydroxyzine Hcl 25 Mg Tablet) 25 mg PO Q6H PRN PRN Reason: Anxiety Thiamine HCl 200 mg/ Sodium (Chloride) 102 mls @ 204 mls/hr IV ONCE ONE Stop: 08/16/24 10:56 Last Admin: 08/16/24 10:46 Dose: 204 mls/hr Lactulose (Lactulose 20 Gm/30 Ml Solution) 20 gm PO BID [facility] Last Admin: 08/16/24 09:36 Dose: 20 gm Magnesium Oxide (Magnesium [facility]ide 400 Mg Tablet) [facility] Multivitamins/Vitamin C (Multivitamin Tablet) 1 tab PO DAILY [facility] Last Admin: 08/16/24 09:36 Dose: 1 tab Thiamine HCl (Thiamine Hcl 100 Mg Tablet) 100 mg PO DAILY [facility] Last Admin: 08/16/24 09:36 Dose: 100 mg Home Medications ?Medication ?Instructions ?Recorded ?Confirmed ?Last Taken ?Type folic acid 1 mg tablet 1 mg PO DAILY 06/02/24 08/16/24 Unknown History gabapentin 100 mg capsule 300 mg PO BID 06/02/24 08/16/24 Unknown History thiamine HCl (vitamin B1) 100 mg 100 mg PO DAILY 06/02/24 08/16/24 Unknown History capsule magnesium oxide 400 mg PO DAILY 08/16/24 08/16/24 Unknown History multivitamin 1 tab PO DAILY 08/16/24 08/16/24 Unknown History Physical Exam 2 Vital Signs: Vital Signs: Last Vital Signs Temp 97.5 F 08/16/24 06:31 Pulse 89 08/16/24 10:10 Resp 20 08/16/24 10:10 BP 109/56 L 08/16/24 10:10 Pulse Ox 98 08/16/24 10:10 O2 Del Method Room Air 08/16/24 10:10 BMI result Body Mass Index 41.7 EXAM: GENERAL: The patient is relaxed VITAL SIGNS:see workflow HEENT: icteric sclerae, PERRLA, EOMI. Oropharynx clear. Moist mucous membranes. Conjunctivae appear well perfused. No thyroid mass. CHEST: Chest wall is nontender. HEART: Regular rate and rhythm without murmurs. LUNGS: Clear to auscultation bilaterally. ABDOMEN: Soft, positive bowel sounds, nontender, no organomegaly.no flank tenderness SKIN: No rash, no excessive bruising, petechiae, or purpura. +jaundiced NEUROLOGIC: Cranial nerves II-XII intact without motor/sensory deficit. weakness on hands and legs Psych: normal affect pitting edema Results Labs 08/16/24 06:35 08/16/24 06:35 Labs: Short CBC 08/16/24 Range/Units 06:35 WBC 7.6 (4.8-10.8) X10*3/uL Hgb 8.8 L (12.0-16.0) g/dl Hct 24.0 L (37.0-47.0) % Plt Count 154 L (160-400) X10*3/uL BMP 08/16/24 06:35 Sodium 128 L Potassium 3.4 D Chloride 89 L Carbon Dioxide 17 L BUN 6 L Creatinine 0.45 L Calcium 7.8 L D Cardiac Enzymes 08/16/24 Range/Units 06:35 Total Creatine Kinase 641 H (26-140) U/L Liver Function 08/16/24 Range/Units 06:35 Total Bilirubin 11.0 H (0.0-1.0) mg/dL AST 289 H (5-31) U/L ALT 80 H (0-31) U/L Alkaline Phosphatase 437 H (39-117) U/L Albumin 2.9 L (3.5-5.0) g/dL Assessment and Plan (1) Alcoholic hepatitis: Qualifiers: Ascites presence: without ascites Qualified Code(s): K70.10 - Alcoholic hepatitis without ascites Status: Acute Plan 1/ Acute alcoholic hepatitis with MDF approx 33 2/ 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
[2024-08-16] MEDS: Buprenorphine/Naloxone 8/2 mg FILM 2 FILM BUCCAL (11:45)
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
--- NOTE | 2024-08-16 16:17 | HO.SKINPHOTO ---
Location: lt shoulder Category: Stage: Length: Width: Depth: cm Location: Category: Stage: Length: Width: Depth: cm Location: Category: Stage: Length: Width: Depth: cm Location: Category: Stage: Length: Width: Depth: cm Location: Category: Stage: Length: Width: Depth: cm Location: Category: Stage: Length: Width: Depth: cm
--- NOTE | 2024-08-16 16:18 | HO.SKINPHOTO ---
Location: Category:left upper back Stage: Length: Width: Depth: cm Location: Category: Stage: Length: Width: Depth: cm Location: Category: Stage: Length: Width: Depth: cm Location: Category: Stage: Length: Width: Depth: cm Location: Category: Stage: Length: Width: Depth: cm Location: Category: Stage: Length: Width: Depth: cm
--- NOTE | 2024-08-16 16:20 | HO.SKINPHOTO ---
Location:left buttock Category: Stage: Length: Width: Depth: cm Location: Category: Stage: Length: Width: Depth: cm Location: Category: Stage: Length: Width: Depth: cm Location: Category: Stage: Length: Width: Depth: cm Location: Category: Stage: Length: Width: Depth: cm Location: Category: Stage: Length: Width: Depth: cm
--- NOTE | 2024-08-16 16:21 | HO.SKINPHOTO ---
Location:left heel Category: Stage: Length: Width: Depth: cm Location: Category: Stage: Length: Width: Depth: cm Location: Category: Stage: Length: Width: Depth: cm Location: Category: Stage: Length: Width: Depth: cm Location: Category: Stage: Length: Width: Depth: cm Location: Category: Stage: Length: Width: Depth: cm
--- NOTE | 2024-08-16 16:22 | HO.SKINPHOTO ---
Location:left upper leg Category: Stage: Length: Width: Depth: cm Location: Category: Stage: Length: Width: Depth: cm Location: Category: Stage: Length: Width: Depth: cm Location: Category: Stage: Length: Width: Depth: cm Location: Category: Stage: Length: Width: Depth: cm Location: Category: Stage: Length: Width: Depth: cm
[2024-08-16] MEDS: PHENobarbitaL sodium 130 MG/ML IM ONCE 160 MG IM (17:36)
[2024-08-16] MEDS: Magnesium Oxide 400 MG TABLET PO (17:44)
--- NOTE | 2024-08-16 17:50 | PC.NURSE ---
CIWA 20 ,started on pheno protocol
[2024-08-16] MEDS: PHENobarbitaL sodium 130 MG/ML VIAL IM Q3Hx2 120 MG IM (21:06)
[2024-08-16] MEDS: Gabapentin 300 MG CAPSULE PO (21:06)
[2024-08-17] VITALS (9 sets, daily range): BP systolic 98–123; BP diastolic 52–64; PULSE 86–116; RESP 14–20; TEMP 36.6–38.2; O2SAT 94–96
[2024-08-17] MEDS: PHENobarbitaL sodium 130 MG/ML VIAL IM Q3Hx2 120 MG IM (00:10)
[2024-08-17] MEDS: PHENobarbitaL sodium 130 MG/ML VIAL IM ×2 (05:07→23:23)
--- NOTE | 2024-08-17 05:36 | PC.NURSE ---
0420: pt hallucinating- seeing , and pets at bedside, and having conversating with them, increased tremors. CIWA 10. MD aware. One time dose of IM phenobaribtal ordered and given with good effect.
[2024-08-17 06:18] LABS: Hemoglobin 7.3 g/dl (12.0-16.0); Mean Corpuscular HGB Conc 35.8 g/dl (31.0-35.0); Mean Corpuscular Hemoglobin 32.9 pg (27.0-33.0); Mean Corpuscular Volume 91.9 fL (80.0-98.0); Mean Platelet Volume 9.7 fL (9.4-12.3); Platelet Count 115 X10*3/uL (160-400); Red Blood Count 2.22 X10*6/uL (4.20-5.50); Red Cell Distribution Width 25.6 % (11.0-16.0); White Blood Count 6.3 X10*3/uL (4.8-10.8)
[2024-08-17 06:30] LABS: Hematocrit 20.4 % (37.0-47.0)
[2024-08-17 06:37] LABS: INTERNATIONAL NORM RATIO 1.4 (0.9-1.1); Prothrombin Time 15.6 SEC (10.9-12.4)
[2024-08-17 06:41] LABS: Alanine Aminotransferase 77 U/L (0-31); Albumin Level 2.4 g/dL (3.5-5.0); Alkaline Phosphatase 405 U/L (39-117); Anion Gap 23 (12-20); Aspartate Amino Transferase 266 U/L (5-31); Bilirubin Direct 8.5 mg/dL (0.0-0.5); Bilirubin Total 11.2 mg/dL (0.0-1.0); Blood Urea Nitrogen 8 mg/dL (9-16); Calcium 7.4 mg/dL (8.4-10.2); Carbon Dioxide 17 mmol/L (22-29); Chloride 93 mmol/L (96-108); Creatinine Clr Calc Pharmacy 130.9; Estimated Glomerular Filt Rate > 60; Glucose Random 85 mg/dL (60-115); Magnesium 1.7 mg/dL (1.6-2.6); Potassium 2.7 mmol/L (3.3-5.1); Sodium 130 mmol/L (135-145); Total Protein 5.2 g/dL (6.5-8.0)
[2024-08-17] MEDS: Potassium Chloride Packet 20 MEQ PACKET 40 MEQ PO (07:38)
[2024-08-17] MEDS: Potassium Chloride/H20 10 MEQ/100 ML PIGGYBACK 100 MEQ IV ×4 (07:52→16:03)
--- NOTE | 2024-08-17 09:11 | P.PNIM_ITS ---
Subjective Subjective Date of Service: 08/17/24 Interval History: f/u on hepatic encephalopathy, acute alcoholic hepatitis electrolytres abnormalities. She's less confused today Physical Exam 2 Vital Signs: Vital Signs: Last Vital Signs Temp 99.7 F 08/17/24 07:34 Pulse 99 08/17/24 07:34 Resp 18 08/17/24 07:34 BP 98/52 L 08/17/24 07:34 Pulse Ox 96 08/17/24 07:34 O2 Del Method Room Air 08/17/24 07:34 BMI result Body Mass Index 43.3 Const: Other: General: AO X 3, no acute distress heent: sclear icteris Resp: CTA bilateral CVS: S1,S2,RRR GI: +BS, NT, no distention Skin: No rash Neuro: motor grossly intact Psych: appropriate affect Objective Data Active Medications Buprenorphine/Naloxone (Buprenorphine/Naloxone 8/2 Mg Film) 1 film BUCCAL DAILY [facility] Last Admin: 08/16/24 10:46 Dose: 1 film Documented By: CAROLINE Folic Acid (Folic Acid 1 Mg Tablet) 1 mg PO DAILY [facility] Last Admin: 08/16/24 09:36 Dose: 1 mg Documented By: CAROLINE Gabapentin (Gabapentin 300 Mg Capsule) 300 mg PO BID [facility] Last Admin: 08/16/24 21:06 Dose: 300 mg Documented By: ABIGAIL Hydroxyzine HCl (Hydroxyzine Hcl 25 Mg Tablet) 25 mg PO Q6H PRN PRN Reason: Anxiety Potassium Chloride (Potassium Chloride/H20) 10 meq in 100 mls @ 100 mls/hr IV Q1H [facility] Stop: 08/17/24 10:44 Last Admin: 08/17/24 07:52 Dose: 100 mls/hr Documented By: ROSIE Lactulose (Lactulose 20 Gm/30 Ml Solution) 20 gm PO BID [facility] Last Admin: 08/16/24 21:06 Dose: 20 gm Documented By: ANTOINBeronica Magn[facility] ([facility] Mg [facility]) [facility] Last Admin: 08/16/24 17:44 Dose: 400 mg Documented By: DEMARCO Multivitamins/Vitamin C (Multivitamin Tablet) 1 tab PO DAILY [facility] Last Admin: 08/16/24 09:36 Dose: 1 tab Documented By: CAROLINE Pharmacy Consult (Consult Rx Etoh Phenob Im/Po) 1 each MISCELLANE ONCE PRN; Protocol PRN Reason: Consult order Phenobarbital (Phenobarbital 15 Mg Tablet) 45 mg PO BID [facility] Stop: 08/18/24 21:01 Phenobarbital (Phenobarbital 30 Mg Tablet) 30 mg PO BID [facility] Stop: 08/20/24 21:01 Phenobarbital (Phenobarbital 15 Mg Tablet) 15 mg PO DAILY [facility] Stop: 08/22/24 09:01 Thiamine HCl (Thiamine Hcl 100 Mg Tablet) 100 mg PO DAILY [facility] Last Admin: 08/16/24 09:36 Dose: 100 mg Documented By: CAROLINE Labs 08/17/24 05:48 08/17/24 05:48 Labs: Laboratory Results - last 24 hr 08/16/24 08/17/24 09:24 05:48 MCV 91.9 MCH 32.9 MCHC 35.8 H RDW 25.6 H Plt Count 115 L D MPV 9.7 Absolute Nucleated RBC 0.000 Nucleated RBC % (auto) 0.0 PT 15.7 H D 15.6 H INR 1.4 H 1.4 H Anion Gap 23 H Estim Creat Clear Calc 130.9 Estimated GFR > 60 Random Glucose 85 Calcium 7.4 L Magnesium 1.7 Total Bilirubin 11.2 H Direct Bilirubin 8.5 H AST 266 H ALT 77 H Alkaline Phosphatase 405 H Total Protein 5.2 L Albumin 2.4 L Assessment and Plan (1) Hepatic encephalopathy: Status: Acute Plan 53F PMH etoh dependence, morbid obesity s/p gastric bypass, etoh fatty liver, mood disorder, opiate dependence, was brought in by ambulance for weakness and falls Acute metabolic encephalopathy due to acute hepatic encephalopathy and acute alcoholic hepatitis as well as alcohol intoxication, mental status is better oriented x 3 check hep serology, seen by gi, hold steroid Lactulose, monitor LFTs, alcohol abstinence, Addiction team eval, MEY Folic acid, thiamine, multivitamin, repeat ammonia tomorrow Acute hyponatremia, 128 --> 130 Likely combination of poor solute intake/ beer potomania and 3rd spacing from acute alcoholic hepatitis Fluid restrict, monitor Acute hypomagnesemia, replaced now 1.7, monitor metabolic acidosis, likely d/t liver failure, bicab stable at 17 monitor Acute on chronic anemia, no evience of active blee, hct down from 24 to 20, hemoglobin 7.3 consider tranfsusion, type and screen, check retic count, haptoglobin, ldh, rule hemolysis Thrombocytopenia--likely from chronic liver disease, stable Hypokalemia 2.7 today, IV and oral replacement and recheck Morbid obesity status post gastric bypass Opiate dependence Reports being on Suboxone, follow up Addiction DVT prophylaxis-mechanical due to extensive bruising, low plat Full code Given degree of hepatitis expected require at least 2 midnights inpatient Quality Stroke Does the patient have a stroke diagnosis?: No VTE Prior VTE?: No VTE Risk Level:: Medical - moderate - high VTE Device Contraindication: N/A - Device Ordered VTE Drug Contraindication: Treatment Not Tolerated
[2024-08-17] MEDS: Magnesium Oxide 400 MG TABLET PO ×2 (09:27→18:23)
[2024-08-17] MEDS: Folic Acid 1 MG TABLET PO (09:27)
[2024-08-17] MEDS: Gabapentin 300 MG CAPSULE PO ×2 (09:27→20:40)
[2024-08-17] MEDS: Thiamine HCL 100 MG TABLET PO (09:27)
[2024-08-17] MEDS: PHENobarbitaL 15 MG TABLET 45 MG PO ×2 (09:27→20:40)
[2024-08-17] MEDS: Multivitamin TABLET 1 TAB PO (09:27)
[2024-08-17] MEDS: Lactulose 20 GM/30 ML SOLUTION PO ×2 (09:35→20:36)
[2024-08-17 10:07] LABS: Hemoglobin 7.8 g/dl (12.0-16.0)
[2024-08-17 10:08] LABS: Immature Retic Fraction 32.3 % (3.0-15.9); Retic HGB Equivalent 39.7 pg (30.0-35.0); Reticulocyte Percent 2.8 % (0.5-1.8); Reticulocytes Absolute 0.065 X10*6/uL (0.026-0.095)
[2024-08-17] MEDS: Buprenorphine/Naloxone 8/2 mg FILM 1 FILM BUCCAL (10:21)
[2024-08-17 10:22] LABS: Haptoglobin 12 mg/dL (35-250)
[2024-08-17 10:44] LABS: HBS Num1 33.18 mIU/mL (0-7.99); HBc Num1 0.09 S/CO (0.00-0.79); HBsAGNum1 0.37 S/CO (0.00-0.99); Hepatitis B Core Antibody Nonreactive (Nonreactive); Hepatitis B Surface Antigen Negative (Negative); ~HepC Num1 0.11 S/CO (0.00-0.79); ~Hepatitis B Surface Antibody REACTIVE (Nonreactive); ~Hepatitis C Antibody Nonreactive (Nonreactive)
[2024-08-17 11:14] LABS: Lactate Dehydrogenase 806 U/L (122-220)
[2024-08-17 11:15] LABS: Thyroid Stimulating Hormone 0.74 uIU/mL (0.32-4.0)
[2024-08-17 11:32] LABS: Erythrocyte Sedimentation Rate 10 MM/HR (0-20)
--- NOTE | 2024-08-17 11:50 | HO.ADDICTCON ---
History of Present Illness Date of Service: 08/17/24 Chief Complaint: etoh hepatitis Sources of Information: chart reviewed HPI Narrative: Patient is a 53 year old female with severe AUD medically admitted with acute alcohol withdrawal and hepatic encephalopathy All information obtained via chart review as patient was unable to participate in interview due to confusion Patient is well known to this adjusto writer operator via several admissions to [facility] with similar presentation. She was brought to [facility] via ambulance after reportedly falling at home --per ambulance report when they arrived patient was on the floor, covered in feces an reporting that she had drank a bottle of vodka--unclear how long she was on the floor. In the ED ETOh level was 430, Ammonia 89. IV thiamine 200mg Q12 hours X2 doses ordered and administered Seen by this adjusto writer operator in room 457. She is awake, but not alert or oriented. Unable to understand much of what patient saying as her speech was quite slurred Aside from confusion, she also appears jaundiced and unkempt with several scabbed areas on her chin. She is currently on pheno taper--requiring PRN IM pheno dose overnight due to reports of hallucinations (thought her was in the room, arguing). History of OUD--prescribed Suboxone 8mg BID--dose cut in half due to mental status. No signs of opiate withdrawal noted in documentation or observed Labs reviewed--low H&H, elevated LFTS (eliane 11.1), low K and Na (repleted) VSS--mild tachycardia Past Psychiatric History: Denies any psychiatric admissions. Has been sectioned 35 in past and in residential tx for etoh. Denies history of psychosis, ras or violence. Had EMDR after finding her first from hanging Medical Evaluation Reviewed: Yes Review of Systems Review of Systems Yes Unobtainable due to mental status Diagnostics Vital Signs (24Hr): Vital Signs - 24 hr 08/16/24 12:22 08/16/24 13:02 08/16/24 16:00 Temperature 97.6 F 97.6 F 98.1 F Pulse Rate 91 93 92 Respiratory Rate 18 16 18 Blood Pressure 117/54 L 96/53 L 100/53 L Pulse Oximetry 100 100 95 Oxygen Delivery Method Room Air Room Air Room Air 08/16/24 19:33 08/17/24 00:00 08/17/24 03:29 Temperature 98.1 F 99.3 F 99.4 F Pulse Rate 109 H 116 H 102 H Respiratory Rate 20 18 18 Blood Pressure 113/58 L 110/54 L 105/53 L Pulse Oximetry 94 94 95 Oxygen Delivery Method Room Air Room Air Room Air 08/17/24 07:34 Temperature 99.7 F Pulse Rate 99 Respiratory Rate 18 Blood Pressure 98/52 L Pulse Oximetry 96 Oxygen Delivery Method Room Air BMI result Body Mass Index 43.3 Labs 08/17/24 09:43 08/17/24 05:48 Labs: Laboratory Results - last 48 hr 08/16/24 08/16/24 08/16/24 06:35 07:10 09:24 WBC 7.6 RBC 2.66 L Hgb 8.8 L Hct 24.0 L MCV 90.2 MCH 33.1 H MCHC 36.7 H RDW 25.0 H Plt Count 154 L MPV 9.6 Immature Gran % (Auto) 0.4 Neut % (Auto) 89.4 H Lymph % (Auto) 3.6 L Ness % (Auto) 6.5 Eos % (Auto) 0.0 Baso % (Auto) 0.1 Lymph # (Auto) 0.3 L [place] # (Auto) 0.5 Eos # (Auto) 0.0 Baso # (Auto) 0.0 Abs Immat Gran (auto) 0.03 Absolute Neuts (auto) 6.8 Absolute Nucleated RBC 0.000 Nucleated RBC % (auto) 0.0 ESR Absolute Retic Percent Retic Immature Retic Fraction Retic Hgb Equivalent PT 15.7 H D INR 1.4 H Sodium 128 L Potassium 3.4 D Chloride 89 L Carbon Dioxide 17 L Anion Gap 25 H BUN 6 L Creatinine 0.45 L Estim Creat Clear Calc 159.2 Estimated GFR > 60 Random Glucose 101 Haptoglobin Calcium 7.8 L D Magnesium 1.5 L Total Bilirubin 11.0 H Direct Bilirubin AST 289 H ALT 80 H Alkaline Phosphatase 437 H Ammonia 89 H Lactate Dehydrogenase Total Creatine Kinase 641 H Troponin I High Sens 4.2 D Total Protein 6.5 Albumin 2.9 L Lipase 8 TSH Ethyl Alcohol 430 H* Hep Bs Antigen Hep Bs Antibody Hep B Core Total Ab Hepatitis C Ab (EIA) Blood Type Antibody Screen 08/17/24 08/17/24 05:48 09:43 WBC 6.3 RBC 2.22 L Hgb 7.3 L 7.8 L Hct 20.4 L* MCV 91.9 MCH 32.9 MCHC 35.8 H RDW 25.6 H Plt Count 115 L D MPV 9.7 Immature Gran % (Auto) Neut % (Auto) Lymph % (Auto) Ness % (Auto) Eos % (Auto) Baso % (Auto) Lymph # (Auto) Ness # (Auto) Eos # (Auto) Baso # (Auto) Abs Immat Gran (auto) Absolute Neuts (auto) Absolute Nucleated RBC 0.000 Nucleated RBC % (auto) 0.0 ESR 10 Absolute Retic 0.065 Percent Retic 2.8 H Immature Retic Fraction 32.3 H Retic Hgb Equivalent 39.7 H PT 15.6 H INR 1.4 H Sodium 130 L Potassium 2.7 L* D Chloride 93 L Carbon Dioxide 17 L Anion Gap 23 H BUN 8 L Creatinine 0.56 Estim Creat Clear Calc 130.9 Estimated GFR > 60 Random Glucose 85 Haptoglobin 12 L Calcium 7.4 L Magnesium 1.7 Total Bilirubin 11.2 H Direct Bilirubin 8.5 H AST 266 H ALT 77 H Alkaline Phosphatase 405 H Ammonia Lactate Dehydrogenase 806 H Total Creatine Kinase Troponin I High Sens Total Protein 5.2 L Albumin 2.4 L Lipase TSH 0.74 Ethyl Alcohol Hep Bs Antigen Negative Hep Bs Antibody REACTIVE Hep B Core Total Ab Nonreactive Hepatitis C Ab (EIA) Nonreactive Blood Type A Negative Antibody Screen NEGATIVE Mental Status Exam Mental Status Exam Patient Appearance: Unkempt Level of Consciousness: Awake and Disoriented Patient Behavior: Confused Affect Description: Blunted Speech Pattern: Slurred Judgement: Poor Medications Medications Current Medications Buprenorphine/Naloxone (Buprenorphine/Naloxone 8/2 Mg Film) 1 film BUCCAL DAILY [facility] Last Admin: 08/17/24 10:21 Dose: 1 film Folic Acid (Folic Acid 1 Mg Tablet) 1 mg PO DAILY [facility] Last Admin: 08/17/24 09:27 Dose: 1 mg Gabapentin (Gabapentin 300 Mg Capsule) 300 mg PO BID [facility] Last Admin: 08/17/24 09:27 Dose: 300 mg Hydroxyzine HCl (Hydroxyzine Hcl 25 Mg Tablet) 25 mg PO Q6H PRN PRN Reason: Anxiety Lactulose (Lactulose 20 Gm/30 Ml Solution) 20 gm PO BID [facility] Last Admin: 08/17/24 09:35 Dose: 20 gm Magnesium Oxide (Magnesium Oxide 400 Mg Tablet) 400 mg PO BIDPC [facility] Last Admin: 08/17/24 09:27 Dose: 400 mg Multivitamins/Vitamin C (Multivitamin Tablet) 1 tab PO DAILY [facility] Last Admin: 08/17/24 09:27 Dose: 1 tab Pharmacy Consult (Consult Rx Etoh Phenob Im/Po) 1 each MISCELLANE ONCE PRN; Protocol PRN Reason: Consult order Phenobarbital (Phenobarbital 15 Mg Tablet) 45 mg PO BID [facility] Stop: 08/18/24 21:01 Last Admin: 08/17/24 09:27 Dose: 45 mg Phenobarbital (Phenobarbital 30 Mg Tablet) 30 mg PO BID [facility] Stop: 08/20/24 21:01 Phenobarbital (Phenobarbital 15 Mg Tablet) 15 mg PO DAILY [facility] Stop: 08/22/24 09:01 Thiamine HCl (Thiamine Hcl 100 Mg Tablet) 100 mg PO DAILY [facility] Last Admin: 08/17/24 09:27 Dose: 100 mg Allergies Allergies Allergy/AdvReac Type Severity Reaction Status Date / Time No Known Allergies Allergy Verified 08/16/24 06:33 Assessment & Plan Assessment & Plan (1) Alcohol use disorder, severe, dependence: Status: Acute Code(s): F10.20 - Alcohol dependence, uncomplicated Assessment and Plan: withdrawal delirium--continue pheno with PRN doses. monitor for worsening withdrawal sx no change to suboxone at this time continue thiamine Total time managing care of this patient today __40__ minutes. PMFSH Past Medical History Medical History Alcoholic hepatitis Alcoholism Depression with anxiety Alcohol use disorder, severe, dependence Alcohol withdrawal hallucinosis Falls frequently Pedal edema Cellulitis Alcohol intoxication Korsakoff syndrome Thrombocytopenia Alcohol withdrawal syndrome Abscess of axilla, right Rash Encounter for monitoring Suboxone maintenance therapy Hypertension Opioid use disorder Alcohol abuse Family History Family History Father Lung cancer Surgical History Surgical History (Updated 08/16/24 @ 09:02 by Fly Lozada MD) Gastric bypass status for obesity History of total knee arthroplasty History of gastric surgery Social History Social History Household Members: Spouse Household Members Other:: 2 Housing: House Do you presently have visiting nurse or other home services: No Unable to assess alcohol history related to: Unknown Alcohol intake: current Alcohol intake frequency: 3 or more drinks per day Alcohol type: hard liquor Comment: refuses alarm Patient Tobacco Use Status: Former Tobacco user Tobacco use type: Cigarette Years Smoked: 2 Second Hand Smoke Exposure: No service: No Current occupational status: employed
--- NOTE | 2024-08-17 14:31 | HO.WOUND ---
Wound Consult: Initial 53yr old?female admitted to [facility] on 08/16/24 - See progress notes and H&P for detailed history.? Wound consult placed for bruising throughout body.? Patient agreeable to assessment and photo documentation.? Of note patient was talking nonsensical at time and at times had visual hallucinations for which she was easily redirectable and orientated. Bilateral Heels noted for intact blanchable redness some desquamation noted. Preventative foam can be used and elevate on pillows. Left shoulder Left hip and feet noted for bruising - do not appear to be PI related at this time. Off load with preventative foams and Q2hr turns. Mouth sores noted drued stable scabs - patient has had similar scabs on previous admissions. No topical interventions needed at this time. Recommendations: 1. Turn and Reposition every 2 hours and as needed for patient comfort.? Use pillows or wedges to support off loading positions. 2. Off Load all bony prominences with use of pillows and heel boots if needed.? Apply Preventative foams where needed. ? 3. Monitor for incontinence and moisture control, use barrier creams when needed for prevention and treatment. 4. Provide adequate and supplemental nutrition.? 5. Order low air loss mattress. 6. When applicable maintain blood glucose levels per Providers order. Bilateral Heels, Hips and Sacrum - Apply preventative foams to aid in off loading pressure. Peel back and assess Q shift and change every 5 days and PRN. Re-consult wound care Nurse for wound deterioration or wound changes.
--- NOTE | 2024-08-17 14:54 | MHC.CM.PN ---
Addendum entered by Lyn Bean 08/17/24 15:03: HCP is on file and verified. Original Note: DX ETOH Hepatitis Patient lives with spouse. She receives assist with ADLs from her spouse. DME Walker She is prescribed Suboxone. [facility] Addiction Medicine consult. PT Eval once medically cleared. DP Home with Spouse transport vs STR via BLS
[2024-08-17 19:20] LABS: Acetaminophen LAB < 3 mcg/mL (<30)
[2024-08-18] VITALS (7 sets, daily range): BP systolic 99–138; BP diastolic 57–92; PULSE 80–96; RESP 17–20; TEMP 36.3–37.4; O2SAT 92–98
[2024-08-18] MEDS: PHENobarbitaL sodium 130 MG/ML VIAL IM (00:54)
--- NOTE | 2024-08-18 05:04 | PC.NURSE ---
2027: CIWA 10, scheduled PO phenobarbital given with no effect. 2251: pt throwing items in room, having hallucinations, talking to , attempting to get out of bed. MD Hunter aware. Sitter put at bedside for patients safety. IM pheno 130mg ordered and given, with no effect. 4: CIWA 18, pt with continued hallucinations, restless in bed, pulling at lines and tubing. MD Hunter aware. Addtl IM pheno 130mg ordered and given with good effect. VSS on RA. T &R as tolerated in bed.
[2024-08-18 06:17] LABS: MANUAL DIFF FLAG NO
[2024-08-18 06:23] LABS: Ammonia 107 umol/L (13-55); Eosinophils Absolute Auto 0.1 X10*3/uL (0.0-0.4); Eosinophils Percent Auto 1.2 % (0-4); Hematocrit 22.2 % (37.0-47.0); Hemoglobin 7.7 g/dl (12.0-16.0); Imm Gran Abs Auto 0.03 X10*3/uL (0.00-0.03); Imm Gran Pct Auto 0.7 % (0.0-0.4); Lymphocytes Absolute Auto 0.5 X10*3/uL (1.2-4.9); Lymphocytes Percent Auto 11.1 % (20-40); Mean Corpuscular HGB Conc 34.7 g/dl (31.0-35.0); Mean Corpuscular Volume 95.3 fL (80.0-98.0); Mean Platelet Volume 9.8 fL (9.4-12.3); Monocytes Absolute Auto 0.5 X10*3/uL (0.1-1.2); Monocytes Percent Auto 10.6 % (2-11); Neutrophils Absolute Auto 3.2 x10*3/uL (2.0-8.3); Neutrophils Percent Auto 76.4 % (45-73); Red Blood Count 2.33 X10*6/uL (4.20-5.50); White Blood Count 4.2 X10*3/uL (4.8-10.8)
[2024-08-18 06:24] LABS: Platelet Count 90 X10*3/uL (160-400)
[2024-08-18 06:53] LABS: Alanine Aminotransferase 85 U/L (0-31); Albumin Level 2.3 g/dL (3.5-5.0); Alkaline Phosphatase 364 U/L (39-117); Anion Gap 12 (12-20); Aspartate Amino Transferase 209 U/L (5-31); Blood Urea Nitrogen 7 mg/dL (9-16); Calcium 7.8 mg/dL (8.4-10.2); Carbon Dioxide 26 mmol/L (22-29); Chloride 96 mmol/L (96-108); Creatinine Clr Calc Pharmacy 146.6; Estimated Glomerular Filt Rate > 60; Glucose Random 96 mg/dL (60-115); Potassium 2.8 mmol/L (3.3-5.1); Sodium 131 mmol/L (135-145)
[2024-08-18] MEDS: Potassium Chloride/H20 10 MEQ/100 ML PIGGYBACK 100 MEQ IV ×4 (07:56→12:55)
[2024-08-18] MEDS: Potassium Chloride Packet 20 MEQ PACKET 40 MEQ PO ×2 (08:04→12:30)
[2024-08-18] MEDS: Folic Acid 1 MG TABLET PO (09:05)
[2024-08-18] MEDS: Thiamine HCL 100 MG TABLET PO (09:05)
[2024-08-18] MEDS: PHENobarbitaL 15 MG TABLET 45 MG PO ×2 (09:06→23:01)
[2024-08-18] MEDS: Gabapentin 300 MG CAPSULE PO ×2 (09:06→23:01)
[2024-08-18] MEDS: Lactulose 20 GM/30 ML SOLUTION PO ×3 (09:06→23:01)
[2024-08-18] MEDS: Buprenorphine/Naloxone 8/2 mg FILM 1 FILM BUCCAL (09:06)
[2024-08-18] MEDS: Magnesium Oxide 400 MG TABLET PO ×2 (09:06→18:07)
[2024-08-18] MEDS: Multivitamin TABLET 1 TAB PO (09:06)
[2024-08-18] MEDS: Furosemide 20 MG/2 ML VIAL IVPUSH (12:30)
--- NOTE | 2024-08-18 13:39 | P.PNIM_ITS ---
Subjective Subjective Date of Service: 08/18/24 Interval History: seen and evaluated this morning looks jaundiced and delerius having bowel movements Bili went up to 15 Review of Systems Review of Systems: Yes all other systems are reviewed and are negative Physical Exam 2 Vital Signs: Vital Signs: Last Vital Signs Temp 98.2 F 08/18/24 11:27 Pulse 88 08/18/24 11:27 Resp 18 08/18/24 11:27 BP 99/57 L 08/18/24 11:27 Pulse Ox 96 08/18/24 11:27 O2 Del Method Room Air 08/18/24 11:27 BMI result Body Mass Index 43.3 Const: Other: General: AO X 2, no acute distress, jaundiced heent: sclear icteris Resp: CTA bilateral CVS: S1,S2,RRR, +1 bilateral edema GI: +BS, NT, no distention Skin: No rash Neuro: motor grossly intact Psych: appropriate affect Objective Data Active Medications Buprenorphine/Naloxone (Buprenorphine/Naloxone 8/2 Mg Film) 1 film BUCCAL DAILY [facility] Last Admin: 08/18/24 09:06 Dose: 1 film Documented By: DELVIS Folic Acid (Folic Acid 1 Mg Tablet) 1 mg PO DAILY [facility] Last Admin: 08/18/24 09:05 Dose: 1 mg Documented By: DELVIS Furosemide (Furosemide 20 Mg/2 Ml Vial) 20 mg IVPUSH DAILY [facility]; Protocol Last Admin: 08/18/24 12:30 Dose: 20 mg Documented By: DELVIS Gabapentin (Gabapentin 300 Mg Capsule) 300 mg PO BID [facility] Last Admin: 08/18/24 09:06 Dose: 300 mg Documented By: DELVIS Hydroxyzine HCl (Hydroxyzine Hcl 25 Mg Tablet) 25 mg PO Q6H PRN PRN Reason: Anxiety Lactulose (Lactulose 20 Gm/30 Ml Solution) 20 gm PO BID [facility] Last Admin: 08/18/24 09:06 Dose: 20 gm Documented By: DELVIS Magn[facility] Mg [facility] Admin: 08/18/24 09:06 Dose: 400 mg Documented By: DELVIS Multivitamins/Vitamin C (Multivitamin Tablet) 1 tab PO DAILY [facility] Last Admin: 08/18/24 09:06 Dose: 1 tab Documented By: DELVIS Pharmacy Consult (Consult Rx Etoh Phenob Im/Po) 1 each MISCELLANE ONCE PRN; Protocol PRN Reason: Consult order Phenobarbital (Phenobarbital 15 Mg Tablet) 45 mg PO BID [facility] Stop: 08/18/24 21:01 Last Admin: 08/18/24 09:06 Dose: 45 mg Documented By: DELVIS Phenobarbital (Phenobarbital 30 Mg Tablet) 30 mg PO BID [facility] Stop: 08/20/24 21:01 Phenobarbital (Phenobarbital 15 Mg Tablet) 15 mg PO DAILY [facility] Stop: 08/22/24 09:01 Thiamine HCl (Thiamine Hcl 100 Mg Tablet) 100 mg PO DAILY [facility] Last Admin: 08/18/24 09:05 Dose: 100 mg Documented By: DELVIS Labs 08/18/24 06:09 08/18/24 13:00 Labs: Laboratory Results - last 24 hr 08/17/24 08/18/24 09:43 06:09 MCV 95.3 MCH 33.0 MCHC 34.7 RDW 25.0 H Plt Count 90 L MPV 9.8 Immature Gran % (Auto) 0.7 H Neut % (Auto) 76.4 H Lymph % (Auto) 11.1 L [place] % (Auto) 10.6 Eos % (Auto) 1.2 Baso % (Auto) 0.0 Lymph # (Auto) 0.5 L [place] # (Auto) 0.5 Eos # (Auto) 0.1 Baso # (Auto) 0.0 Abs Immat Gran (auto) 0.03 Absolute Neuts (auto) 3.2 Absolute Nucleated RBC 0.000 Nucleated RBC % (auto) 0.0 Anion Gap 12 Estim Creat Clear Calc 146.6 Estimated GFR > 60 Random Glucose 96 Calcium 7.8 L Total Bilirubin 15.0 H AST 209 H ALT 85 H Alkaline Phosphatase 364 H Ammonia 107 H Total Protein 5.0 L Albumin 2.3 L Acetaminophen < 3 Blood Type A Negative Antibody Screen NEGATIVE Crossmatch See Detail Assessment and Plan (1) Hepatic encephalopathy: Status: Acute (2) Alcoholic hepatitis: Status: Acute (3) Anemia: Status: Acute (4) Hypomagnesemia: Status: Acute (5) Acute alcoholic hepatitis: Status: Acute (6) High anion gap metabolic acidosis: Status: Acute Plan 53F PMH etoh dependence, morbid obesity s/p gastric bypass, etoh fatty liver, mood disorder, opiate dependence, was brought in by ambulance for weakness and falls Acute metabolic encephalopathy due to acute hepatic encephalopathy and acute alcoholic hepatitis High Maddery score Continue Lactulose, increase to QID Start PRednosolone Start Rifaximin Poor prognisis mental status is better but easily confused negative hep serology GI rec to start PRendisolone for now monitor LFTs, alcohol abstinence, Addiction team eval Alcohol withdrawal CIWA PHenobarb protocol Folic acid, thiamine, multivitamin repeat ammonia tomorrow Acute hyponatremia, improved to 131 Likely combination of poor solute intake/ beer potomania and 3rd spacing from acute alcoholic hepatitis Fluid restrict, monitor Acute hypomagnesemia, replaced now 1.7, monitor metabolic acidosis, likely d/t liver failure, bicab stable at 17 monitor Acute on chronic anemia, hct down from 24 to 20, hemoglobin 7.7 consider transfusion if drops below 7 elevated retic count and LDH, can not rule hemolysis pending haptoglobin Thrombocytopenia likely from chronic liver disease, stable acute Hypokalemia 3,7 after IV and oral replacement and recheck Morbid obesity status post gastric bypass Opiate dependence Reports being on Suboxone, follow up Addiction DVT prophylaxis-mechanical due to extensive bruising, low plat Full code Given degree of hepatitis expected require at least 2 midnights inpatient Quality Stroke Does the patient have a stroke diagnosis?: No VTE Prior VTE?: No VTE Risk Level:: Medical - moderate - high VTE Device Contraindication: N/A - Device Ordered VTE Drug Contraindication: Treatment Not Tolerated
[2024-08-18 13:54] LABS: Alanine Aminotransferase 94 U/L (0-31); Albumin Level 2.5 g/dL (3.5-5.0); Alkaline Phosphatase 394 U/L (39-117); Anion Gap 13 (12-20); Aspartate Amino Transferase 211 U/L (5-31); Bilirubin Total 17.5 mg/dL (0.0-1.0); Blood Urea Nitrogen 7 mg/dL (9-16); Calcium 8.1 mg/dL (8.4-10.2); Carbon Dioxide 26 mmol/L (22-29); Chloride 97 mmol/L (96-108); Creatinine Clr Calc Pharmacy 149.6; Estimated Glomerular Filt Rate > 60; Glucose Random 94 mg/dL (60-115); Potassium 3.7 mmol/L (3.3-5.1); Sodium 132 mmol/L (135-145); Total Protein 5.5 g/dL (6.5-8.0)
--- NOTE | 2024-08-18 14:43 | P.PNGI_ITS ---
Subjective Subjective Date of Service: 08/18/24 Interval History: more jaundiced, LDH was high more somnolent no abdominal pain out from bed to chair Critical Care Time (minutes): 0 Physical Exam 2 Vital Signs: Vital Signs: Last Vital Signs Temp 98.2 F 08/18/24 11:27 Pulse 88 08/18/24 11:27 Resp 18 08/18/24 11:27 BP 99/57 L 08/18/24 11:27 Pulse Ox 96 08/18/24 11:27 O2 Del Method Room Air 08/18/24 11:27 BMI result Body Mass Index 43.3 EXAM: GENERAL: The patient is obese VITAL SIGNS:see workflow HEENT: icteric sclerae, PERRLA, EOMI. Oropharynx clear. Moist mucous membranes. Conjunctivae appear well perfused. No thyroid mass. CHEST: Chest wall is nontender. HEART: Regular rate and rhythm without murmurs. LUNGS: Clear to auscultation bilaterally. ABDOMEN: Soft, positive bowel sounds, nontender, no organomegaly.no flank tenderness SKIN: bruise over left shoulder NEUROLOGIC: Cranial nerves II-XII intact without motor/sensory deficit. somnolent Psych: confused Objective Data Labs 08/18/24 06:09 08/18/24 13:00 Labs: Laboratory Results - last 24 hr 08/17/24 08/18/24 08/18/24 09:43 06:09 13:00 WBC 4.2 L RBC 2.33 L Hgb 7.7 L Hct 22.2 L MCV 95.3 MCH 33.0 MCHC 34.7 RDW 25.0 H Plt Count 90 L MPV 9.8 Immature Gran % (Auto) 0.7 H Neut % (Auto) 76.4 H Lymph % (Auto) 11.1 L [place] % (Auto) 10.6 Eos % (Auto) 1.2 Baso % (Auto) 0.0 Lymph # (Auto) 0.5 L [place] # (Auto) 0.5 Eos # (Auto) 0.1 Baso # (Auto) 0.0 Abs Immat Gran (auto) 0.03 Absolute Neuts (auto) 3.2 Absolute Nucleated RBC 0.000 Nucleated RBC % (auto) 0.0 Sodium 131 L 132 L Potassium 2.8 L* 3.7 D Chloride 96 97 Carbon Dioxide 26 26 Anion Gap 12 13 BUN 7 L 7 L Creatinine 0.50 0.49 L Estim Creat Clear Calc 146.6 149.6 Estimated GFR > 60 > 60 Random Glucose 96 94 Calcium 7.8 L 8.1 L Total Bilirubin 15.0 H 17.5 H AST 209 H 211 H ALT 85 H 94 H Alkaline Phosphatase 364 H 394 H Ammonia 107 H Total Protein 5.0 L 5.5 L Albumin 2.3 L 2.5 L Acetaminophen < 3 Crossmatch See Detail Procedures Date of Service Date of Service: 08/18/24 Progress Note: A&P Assessment and plan (1) Alcoholic hepatitis: Status: Acute Plan 1/ alcohol hepatitis, worsening bili, may be some component of hemolysis as well 2/ confusion, somnolence possible from meds or liver disease 3/ Anemia from chronic disease, malnutrition, low level hemolysis PLAN: /1 - prognosis is guarded -given her alcohol abuse and poor functional status she would not likley be a liver transplant candidate 2/ can add pred 40 mg and titrate, check Lille score at d# 4 3/ high protein diet, 1.5g/kg/day 4/ optimize Mag, K, Ca, phos 5/ try to limit opiates, sedatives Time Spent With Patient Time: Total time managing care of this patient today ____ minutes. Quality Stroke Does the patient have a stroke diagnosis?: No VTE Prior VTE?: No VTE Risk Level:: Medical - moderate - high VTE Device Contraindication: N/A - Device Ordered VTE Drug Contraindication: Treatment Not Tolerated
[2024-08-18] MEDS: rifAXIMin 550 MG TABLET PO ×2 (14:47→23:01)
[2024-08-18] MEDS: prednisoLONE sodium phosphate 15 MG/5 ML SOLUTION 40 MG PO (14:47)
[2024-08-19] VITALS (7 sets, daily range): BP systolic 95–106; BP diastolic 46–65; PULSE 77–88; RESP 18–20; TEMP 36.7–37.2; O2SAT 91–97
[2024-08-19] MEDS: rifAXIMin 550 MG TABLET PO ×2 (08:47→20:40)
[2024-08-19] MEDS: Buprenorphine/Naloxone 8/2 mg FILM 1 FILM BUCCAL (08:47)
[2024-08-19] MEDS: Multivitamin TABLET 1 TAB PO (08:47)
[2024-08-19] MEDS: prednisoLONE sodium phosphate 15 MG/5 ML SOLUTION 40 MG PO (08:47)
[2024-08-19] MEDS: Gabapentin 300 MG CAPSULE PO ×2 (08:48→20:40)
[2024-08-19] MEDS: Folic Acid 1 MG TABLET PO (08:48)
[2024-08-19] MEDS: Thiamine HCL 100 MG TABLET PO (08:48)
[2024-08-19] MEDS: Furosemide 20 MG/2 ML VIAL IVPUSH (08:48)
[2024-08-19] MEDS: Lactulose 20 GM/30 ML SOLUTION PO ×2 (08:49→13:45)
[2024-08-19] MEDS: Magnesium Oxide 400 MG TABLET PO ×2 (08:49→17:26)
[2024-08-19] MEDS: PHENobarbitaL 30 MG TABLET PO (08:50)
[2024-08-19 08:56] LABS: MANUAL DIFF FLAG NO
[2024-08-19 09:06] LABS: Ammonia 109 umol/L (13-55)
[2024-08-19 09:07] LABS: Basophils Percent Auto 0.1 % (0-2); Eosinophils Absolute Auto 0.1 X10*3/uL (0.0-0.4); Hematocrit 22.9 % (37.0-47.0); Imm Gran Abs Auto 0.08 X10*3/uL (0.00-0.03); Imm Gran Pct Auto 1.1 % (0.0-0.4); Lymphocytes Absolute Auto 0.5 X10*3/uL (1.2-4.9); Lymphocytes Percent Auto 7.2 % (20-40); Mean Corpuscular HGB Conc 34.9 g/dl (31.0-35.0); Mean Corpuscular Volume 97.4 fL (80.0-98.0); Mean Platelet Volume 9.9 fL (9.4-12.3); Monocytes Absolute Auto 0.7 X10*3/uL (0.1-1.2); Monocytes Percent Auto 9.2 % (2-11); NRBC Pct Auto 0.5 /100WBC (0.0-0.2); Neutrophils Percent Auto 81.4 % (45-73); Platelet Count 130 X10*3/uL (160-400); Red Blood Count 2.35 X10*6/uL (4.20-5.50); Red Cell Distribution Width 24.9 % (11.0-16.0); White Blood Count 7.3 X10*3/uL (4.8-10.8)
[2024-08-19 09:14] LABS: Anion Gap 10 (12-20); Blood Urea Nitrogen 5 mg/dL (9-16); Calcium 7.9 mg/dL (8.4-10.2); Carbon Dioxide 30 mmol/L (22-29); Chloride 95 mmol/L (96-108); Creatinine Clr Calc Pharmacy 152.7; Estimated Glomerular Filt Rate > 60; Glucose Random 69 mg/dL (60-115); Potassium 3.2 mmol/L (3.3-5.1); Sodium 132 mmol/L (135-145)
[2024-08-19 09:17] LABS: Prothrombin Time 22.5 SEC (10.9-12.4)
[2024-08-19 09:19] LABS: Alanine Aminotransferase 86 U/L (0-31); Albumin Level 2.4 g/dL (3.5-5.0); Alkaline Phosphatase 364 U/L (39-117); Aspartate Amino Transferase 163 U/L (5-31); Bilirubin Direct 14.1 mg/dL (0.0-0.5); Bilirubin Total 19.8 mg/dL (0.0-1.0); Magnesium 1.9 mg/dL (1.6-2.6); Total Protein 5.3 g/dL (6.5-8.0)
--- NOTE | 2024-08-19 13:19 | MHC.CM.PN ---
EMR REVIEWED AND PER MD ROUNDS, PT IS NOT MEDICALLY CLEARED FOR DC (JAUNDICE, SOMNOLENT, MONITORING LABS) CM WILL CONTINUE TO FOLLOW FOR ANY CHANGE TO DC PLAN/NEEDS.
--- NOTE | 2024-08-19 14:19 | P.PNIM_ITS ---
Subjective Subjective Date of Service: 08/19/24 Interval History: seen and evaluated this morning looks jaundiced and delerius having bowel movements Bili went up to 19.8 Transaminitis improving Review of Systems Review of Systems: Yes Unobtainable due to mental status Physical Exam 2 Vital Signs: Vital Signs: Last Vital Signs Temp 98.1 F 08/19/24 11:49 Pulse 86 08/19/24 11:49 Resp 18 08/19/24 11:49 BP 95/50 L 08/19/24 11:49 Pulse Ox 91 L 08/19/24 11:49 O2 Del Method Room Air 08/19/24 11:49 BMI result Body Mass Index 43.3 Const: Other: General: altred, response to stimuli, jaundiced heent: sclear icteris Resp: CTA bilateral CVS: S1,S2,RRR, +1 bilateral edema GI: +BS, NT, no distention Skin: No rash Neuro: motor grossly intact, alert with stimultation, moving all extremities, encephalopathic Psych: appropriate affect Objective Data Active Medications Buprenorphine/Naloxone (Buprenorphine/Naloxone 8/2 Mg Film) 1 film BUCCAL DAILY [facility] Last Admin: 08/19/24 08:47 Dose: 1 film Documented By: LEDA Folic Acid (Folic Acid 1 Mg Tablet) 1 mg PO DAILY [facility] Last Admin: 08/19/24 08:48 Dose: 1 mg Documented By: LEDA Furosemide (Furosemide 20 Mg/2 Ml Vial) 20 mg IVPUSH DAILY [facility]; Protocol Last Admin: 08/19/24 08:48 Dose: 20 mg Documented By: LEDA Gabapentin (Gabapentin 300 Mg Capsule) 300 mg PO BID [facility] Last Admin: 08/19/24 08:48 Dose: 300 mg Documented By: LEDA Hydroxyzine HCl (Hydroxyzine Hcl 25 Mg Tablet) 25 mg PO Q6H PRN PRN Reason: Anxiety Lactulose (Lactulose 20 Gm/30 Ml Solution) 20 gm PO QID [facility] Last Admin: 08/19/24 13:45 Dose: 20 gm Documented By: LEDA Magnesium Oxide (Magnesium Oxide 400 Mg Tablet) 400 mg PO BIDPC [facility] Last Admin: 08/19/24 08:49 Dose: 400 mg Documented By: LEDA Multivitamins/Vitamin C (Multivitamin Tablet) 1 tab PO DAILY [facility] Last Admin: 08/19/24 08:47 Dose: 1 tab Documented By: LEDA Pharmacy Consult (Consult Rx Etoh Phenob Im/Po) 1 each MISCELLANE ONCE PRN; Protocol PRN Reason: Consult order Phenobarbital (Phenobarbital 30 Mg Tablet) 30 mg PO BID [facility] Stop: 08/20/24 21:01 Last Admin: 08/19/24 08:50 Dose: 30 mg Documented By: LEDA Phenobarbital (Phenobarbital 15 Mg Tablet) 15 mg PO DAILY [facility] Stop: 08/22/24 09:01 Prednisolone Sodium Phosphate (Prednisolone Sodium Phosphate 15 Mg/5 Ml Solution) 40 mg PO DAILY [facility] Last Admin: 08/19/24 08:47 Dose: 40 mg Documented By: LEDA Rifaximin (Rifaximin 550 Mg Tablet) 550 mg PO BID [facility] Last Admin: 08/19/24 08:47 Dose: 550 mg Documented By: LEDA Thiamine HCl (Thiamine Hcl 100 Mg Tablet) 100 mg PO DAILY [facility] Last Admin: 08/19/24 08:48 Dose: 100 mg Documented By: LEDA Labs 08/19/24 08:48 08/19/24 08:48 Labs: Laboratory Results - last 24 hr 08/19/24 08:48 MCV 97.4 MCH 34.0 H MCHC 34.9 RDW 24.9 H Plt Count 130 L D MPV 9.9 Immature Gran % (Auto) 1.1 H Neut % (Auto) 81.4 H Lymph % (Auto) 7.2 L [place] % (Auto) 9.2 Eos % (Auto) 1.0 Baso % (Auto) 0.1 Lymph # (Auto) 0.5 L [place] # (Auto) 0.7 Eos # (Auto) 0.1 Baso # (Auto) 0.0 Abs Immat Gran (auto) 0.08 H Absolute Neuts (auto) 6.0 Absolute Nucleated RBC 0.040 H Nucleated RBC % (auto) 0.5 H PT 22.5 H D INR 2.0 H Anion Gap 10 L Estim Creat Clear Calc 152.7 Estimated GFR > 60 Random Glucose 69 Calcium 7.9 L Magnesium 1.9 Total Bilirubin 19.8 H Direct Bilirubin 14.1 H AST 163 H ALT 86 H Alkaline Phosphatase 364 H Ammonia 109 H Total Protein 5.3 L Albumin 2.4 L Assessment and Plan (1) Hepatic encephalopathy: Status: Acute (2) Alcoholic hepatitis: Status: Acute (3) Anemia: Status: Acute (4) Hypomagnesemia: Status: Acute (5) Acute alcoholic hepatitis: Status: Acute (6) Physical deconditioning: Status: Acute (7) Coagulopathy: Status: Inactive Plan 53F PMH etoh dependence, morbid obesity s/p gastric bypass, etoh fatty liver, mood disorder, opiate dependence, was brought in by ambulance for weakness and falls Acute metabolic encephalopathy due to acute hepatic encephalopathy and acute alcoholic hepatitis High Maddery score of 68, worsening Bili up to 19.8, INR up to 2, PT to 24 Increas Lactulose to 30 QID Started PRednosolone Increase Rifaximin to tid Poor prognisis mental status is better but easily confused negative hep serology GI rec to start PRendisolone for now monitor LFTs, alcohol abstinence, Addiction team following Alcohol withdrawal [facility] PHenobarb protocol Folic acid, thiamine, multivitamin repeat ammonia tomorrow Acute hypokalemia K of 3.2 give replacement and follow Acute hyponatremia, improved to 131 Likely combination of poor solute intake/ beer potomania and 3rd spacing from acute alcoholic hepatitis Fluid restrict, monitor Acute hypomagnesemia, replaced now 1.7, monitor metabolic acidosis, likely d/t liver failure, bicab stable at 17 monitorand repeat blood work Acute on chronic anemia, stable hemoglobin 8 consider transfusion if drops below 7 elevated retic count and LDH, can not rule hemolysis pending haptoglobin Thrombocytopenia likely from chronic liver disease, stable acute Hypokalemia 3,7 after IV and oral replacement and recheck Morbid obesity status post gastric bypass Opiate dependence Reports being on Suboxone, follow up Addiction DVT prophylaxis-mechanical due to extensive bruising, low plat Full code Given degree of hepatitis, encephalopathy, expected require overnight hospital stay for close monitoring of liver enzymes and coagulation profile along with replacing electrolytes Quality Stroke Does the patient have a stroke diagnosis?: No VTE Prior VTE?: No VTE Risk Level:: Medical - moderate - high VTE Device Contraindication: N/A - Device Ordered VTE Drug Contraindication: Treatment Not Tolerated
[2024-08-19] MEDS: Phytonadione (Vit K1) 10 MG in 0.9 % Sodium Chloride 50 ML 51 MG IV (17:17)
[2024-08-19] MEDS: Lactulose 20 GM/30 ML SOLUTION 30 GM PO ×2 (17:25→22:24)
[2024-08-19 17:39] LABS: Glucose, Whole Blood 100 mg/dL (60-115)
--- NOTE | 2024-08-19 17:51 | PM.EVENT ---
Event Note Date of Service: 08/19/24 Event Note: Pt is a 53-year-old female admitted to the hospital for acute metabolic encephalopathy in the setting of acute alcoholic hepatitis. Rapid response called due to lethargy and hypotension of 83/48. Repeat blood pressure stable without any intervention. Pt confused, though awake and responding to questions appropriately as well as following commands. Albumin ordered for blood pressure and pt given lactulose 200 g NV as nursing reports pt has not had bowel movement since being admitted despite being on frequent p.o. lactulose doses. We will continue to monitor pt's mentation and BP, and contact ICU if appropriate. Time Spent With Patient Time: Total time managing care of this patient today ____ minutes.
[2024-08-19] MEDS: Albumin Human 25 % 100 ML IV (18:40)
[2024-08-19] MEDS: Furosemide 40 MG/4 ML VIAL IVPUSH (20:40)
[2024-08-20] VITALS (7 sets, daily range): BP systolic 75–115; BP diastolic 40–58; PULSE 79–87; RESP 14–20; TEMP 36.2–37.6; O2SAT 92–97
[2024-08-20] MEDS: Albumin Human 25 % 100 ML IV ×3 (01:02→21:35)
[2024-08-20 05:46] LABS: MANUAL DIFF FLAG NO
[2024-08-20 05:52] LABS: Basophils Percent Auto 0.3 % (0-2); Eosinophils Absolute Auto 0.1 X10*3/uL (0.0-0.4); Eosinophils Percent Auto 1.3 % (0-4); Hematocrit 25.3 % (37.0-47.0); Hemoglobin 8.7 g/dl (12.0-16.0); Imm Gran Abs Auto 0.15 X10*3/uL (0.00-0.03); Imm Gran Pct Auto 2.1 % (0.0-0.4); Lymphocytes Absolute Auto 0.5 X10*3/uL (1.2-4.9); Lymphocytes Percent Auto 7.5 % (20-40); Mean Corpuscular HGB Conc 34.4 g/dl (31.0-35.0); Mean Corpuscular Hemoglobin 33.7 pg (27.0-33.0); Mean Corpuscular Volume 98.1 fL (80.0-98.0); Mean Platelet Volume 10.2 fL (9.4-12.3); Monocytes Absolute Auto 0.8 X10*3/uL (0.1-1.2); Monocytes Percent Auto 11.8 % (2-11); NRBC Pct Auto 0.6 /100WBC (0.0-0.2); Neutrophils Absolute Auto 5.5 x10*3/uL (2.0-8.3); Platelet Count 110 X10*3/uL (160-400); Red Blood Count 2.58 X10*6/uL (4.20-5.50); Red Cell Distribution Width 25.2 % (11.0-16.0); White Blood Count 7.1 X10*3/uL (4.8-10.8)
[2024-08-20 06:03] LABS: Prothrombin Time 22.5 SEC (10.9-12.4)
[2024-08-20 06:28] LABS: Alanine Aminotransferase 80 U/L (0-31); Albumin Level 2.3 g/dL (3.5-5.0); Ammonia 83 umol/L (13-55); Aspartate Amino Transferase 133 U/L (5-31); Bilirubin Total 21.6 mg/dL (0.0-1.0); Total Protein 5.2 g/dL (6.5-8.0)
[2024-08-20 06:46] LABS: Anion Gap 15 (12-20); Blood Urea Nitrogen 4 mg/dL (9-16); Calcium 7.8 mg/dL (8.4-10.2); Carbon Dioxide 29 mmol/L (22-29); Chloride 94 mmol/L (96-108); Creatinine Clr Calc Pharmacy 159.4; Estimated Glomerular Filt Rate > 60; Glucose Random 70 mg/dL (60-115); Potassium 2.4 mmol/L (3.3-5.1); Sodium 136 mmol/L (135-145)
[2024-08-20 06:50] LABS: Alkaline Phosphatase 344 U/L (39-117); Bilirubin Direct 15.9 mg/dL (0.0-0.5)
[2024-08-20] MEDS: Potassium Chloride/H20 10 MEQ/100 ML PIGGYBACK 100 MEQ IV ×6 (07:31→17:48)
[2024-08-20] MEDS: Potassium Chloride Packet 20 MEQ PACKET 40 MEQ PO ×3 (08:09→16:43)
[2024-08-20] MEDS: Gabapentin 300 MG CAPSULE PO ×2 (08:09→21:33)
[2024-08-20] MEDS: Magnesium Oxide 400 MG TABLET PO ×2 (08:09→16:31)
[2024-08-20] MEDS: Folic Acid 1 MG TABLET PO (08:09)
[2024-08-20] MEDS: Multivitamin TABLET 1 TAB PO (08:10)
[2024-08-20] MEDS: prednisoLONE sodium phosphate 15 MG/5 ML SOLUTION 40 MG PO (08:10)
[2024-08-20] MEDS: Thiamine HCL 100 MG TABLET PO (08:10)
[2024-08-20] MEDS: rifAXIMin 550 MG TABLET PO ×2 (08:10→21:34)
[2024-08-20] MEDS: Lactulose 20 GM/30 ML SOLUTION 30 GM PO ×3 (08:11→21:34)
[2024-08-20] MEDS: Albumin Human 25 % 100 ML 133.33 ML IV ×2 (10:53→12:31)
[2024-08-20] MEDS: Buprenorphine/Naloxone 8/2 mg FILM 1 FILM BUCCAL (11:03)
--- NOTE | 2024-08-20 11:45 | HO.PM.IMPN ---
Subjective Subjective Date of Service: 08/20/24 Interval History: seen and evaluated this morning worsening jaundiced and remains encephalopathic having bowel movements Bili went up to 21.6 K of 2.6 Transaminitis improving Review of Systems Review of Systems: Yes all other systems are reviewed and are negative Physical Exam Vital Signs: Vital Signs: Last Vital Signs Temp 99.3 F 08/20/24 08:00 Pulse 80 08/20/24 08:00 Resp 14 08/20/24 08:00 BP 115/58 L 08/20/24 04:00 Pulse Ox 97 08/20/24 08:00 O2 Del Method Room Air 08/20/24 08:00 BMI result Body Mass Index 43.3 Const: Other: General: altred, response to stimuli, jaundiced heent: sclear icteris Resp: CTA bilateral CVS: S1,S2,RRR, +1 bilateral edema GI: +BS, NT, no distention, moderate ascites Skin: No rash Neuro: motor grossly intact, alert with stimultation, moving all extremities, encephalopathic Psych: appropriate affect Objective Data Active Medications Buprenorphine/Naloxone (Buprenorphine/Naloxone 8/2 Mg Film) 1 film BUCCAL DAILY [facility] Last Admin: 08/20/24 11:03 Dose: 1 film Documented By: ROSIE Folic Acid (Folic Acid 1 Mg Tablet) 1 mg PO DAILY [facility] Last Admin: 08/20/24 08:09 Dose: 1 mg Documented By: ROSIE Furosemide (Furosemide 40 Mg/4 Ml Vial) 40 mg IVPUSH BID@0900,1800 [facility]; Protocol Last Admin: 08/20/24 08:42 Dose: Not Given Documented By: ROSIE Non-Admin Reason: Physician Approved Gabapentin (Gabapentin 300 Mg Capsule) 300 mg PO BID [facility] Last Admin: 08/20/24 08:09 Dose: 300 mg Documented By: ROSIE Hydroxyzine HCl (Hydroxyzine Hcl 25 Mg Tablet) 25 mg PO Q6H PRN PRN Reason: Anxiety Lactulose (Lactulose 20 Gm/30 Ml Solution) 30 gm PO QID [facility] Last Admin: 08/20/24 08:11 Dose: 30 gm Documented By: ROSIE Magnesium Oxide (Magnesium Oxide 400 Mg Tablet) 400 mg PO BIDPC [facility] Last Admin: 08/20/24 08:09 Dose: 400 mg Documented By: ROSIE Multivitamins/Vitamin C (Multivitamin Tablet) 1 tab PO DAILY [facility] Last Admin: 08/20/24 08:10 Dose: 1 tab Documented By: ROSIE Pharmacy Consult (Consult Rx Etoh Phenob Im/Po) 1 each MISCELLANE ONCE PRN; Protocol PRN Reason: Consult order Phenobarbital (Phenobarbital 30 Mg Tablet) 30 mg PO BID [facility] Stop: 08/20/24 21:01 Last Admin: 08/20/24 08:37 Dose: Not Given Documented By: ROSIE Non-Admin Reason: Physician Held Med Phenobarbital (Phenobarbital 15 Mg Tablet) 15 mg PO DAILY [facility] Stop: 08/22/24 09:01 Prednisolone Sodium Phosphate (Prednisolone Sodium Phosphate 15 Mg/5 Ml Solution) 40 mg PO DAILY [facility] Last Admin: 08/20/24 08:10 Dose: 40 mg Documented By: ROSIE Rifaximin (Rifaximin 550 Mg Tablet) 550 mg PO BID [facility] Last Admin: 08/20/24 08:10 Dose: 550 mg Documented By: ROSIE Spironolactone (Spironolactone 25 Mg Tablet) 25 mg PO DAILY [facility]; Protocol Last Admin: 08/20/24 08:43 Dose: Not Given Documented By: ROSIE Non-Admin Reason: Physician Held Med Thiamine HCl (Thiamine Hcl 100 Mg Tablet) 100 mg PO DAILY [facility] Last Admin: 08/20/24 08:10 Dose: 100 mg Documented By: ROSIE Labs 08/20/24 05:37 08/20/24 05:37 Labs: Laboratory Results - last 24 hr 08/19/24 08/20/24 17:35 05:37 MCV 98.1 H MCH 33.7 H MCHC 34.4 RDW 25.2 H Plt Count 110 L MPV 10.2 Immature Gran % (Auto) 2.1 H Neut % (Auto) 77.0 H Lymph % (Auto) 7.5 L [place] % (Auto) 11.8 H Eos % (Auto) 1.3 Baso % (Auto) 0.3 Lymph # (Auto) 0.5 L [place] # (Auto) 0.8 Eos # (Auto) 0.1 Baso # (Auto) 0.0 Abs Immat Gran (auto) 0.15 H Absolute Neuts (auto) 5.5 Absolute Nucleated RBC 0.040 H Nucleated RBC % (auto) 0.6 H PT 22.5 H INR 2.0 H Anion Gap 15 Estim Creat Clear Calc 159.4 Estimated GFR > 60 POC Glucose 100 Random Glucose 70 Calcium 7.8 L Total Bilirubin 21.6 H Direct Bilirubin 15.9 H AST 133 H ALT 80 H Alkaline Phosphatase 344 H Ammonia 83 H Total Protein 5.2 L Albumin 2.3 L Assessment and Plan (1) Hepatic encephalopathy: Status: Acute (2) Alcoholic hepatitis: Status: Acute (3) Anemia: Status: Acute (4) Hypomagnesemia: Status: Acute (5) Acute alcoholic hepatitis: Status: Acute (6) Physical deconditioning: Status: Acute (7) Alcohol use disorder, severe, dependence: Status: Acute Plan 53F PMH etoh dependence, morbid obesity s/p gastric bypass, etoh fatty liver, mood disorder, opiate dependence, was brought in by ambulance for weakness and falls Acute metabolic encephalopathy due to acute hepatic encephalopathy and acute alcoholic hepatitis High Maddery score of 72, worsening Bili up to 21, INR up to 2, PT to 24 Increas Lactulose to 30 QID Started PRednosolone Increase Rifaximin to tid Albumin IV to support BP SBP Prophylaxis Poor prognisis mental status is better but easily confused negative hep serology GI rec to start PRendisolone for now monitor LFTs, alcohol abstinence, Addiction team following Alcohol withdrawal [facility] PHenobarb protocol Folic acid, thiamine, multivitamin repeat ammonia tomorrow Acute hypokalemia K of 2.4 give IV and PO replacement and follow Acute hyponatremia, improved to 131 Likely combination of poor solute intake/ beer potomania and 3rd spacing from acute alcoholic hepatitis Fluid restrict, monitor Acute hypomagnesemia, replaced metabolic acidosis, likely d/t liver failure, bicab stable repeat blood work Acute on chronic anemia, stable hemoglobin 8 consider transfusion if drops below 7 elevated retic count and LDH, can not rule hemolysis with low haptoglobin Thrombocytopenia likely from chronic liver disease, stable acute Hypokalemia 3,7 after IV and oral replacement and recheck Morbid obesity status post gastric bypass Opiate dependence Reports being on Suboxone, follow up Addiction DVT prophylaxis-mechanical due to extensive bruising, low plat Full code Given degree of hepatitis, encephalopathy, expected require overnight hospital stay for close monitoring of liver enzymes and coagulation profile along with replacing electrolytes Quality Stroke Does the patient have a stroke diagnosis?: No VTE Prior VTE?: No VTE Risk Level:: Medical - moderate - high VTE Device Contraindication: N/A - Device Ordered VTE Drug Contraindication: Treatment Not Tolerated
[2024-08-20] MEDS: cefTRIAXone sodium 1 GM VIAL IVPUSH (13:42)
[2024-08-20 13:43] LABS: Anion Gap 15 (12-20); Blood Urea Nitrogen 4 mg/dL (9-16); Calcium 7.8 mg/dL (8.4-10.2); Carbon Dioxide 29 mmol/L (22-29); Chloride 94 mmol/L (96-108); Creatinine Clr Calc Pharmacy 146.6; Estimated Glomerular Filt Rate > 60; Glucose Random 123 mg/dL (60-115); Potassium 3.1 mmol/L (3.3-5.1); Sodium 135 mmol/L (135-145)
[2024-08-20] MEDS: Midodrine HCl 5 MG TABLET PO (16:31)
[2024-08-21] MEDS: Midodrine HCl 10 MG TABLET PO (00:12)
[2024-08-21] MEDS: Albumin Human 25 % 100 ML 133.33 ML IV ×4 (00:13→03:56)
[2024-08-21 03:39] VITALS: BP 99/55; PULSE 88; RESP 18; TEMP 37.6; O2SAT 92
[2024-08-21 07:00] LABS: MANUAL DIFF FLAG NO
[2024-08-21 07:02] VITALS: BP 101/56; PULSE 84; RESP 18; TEMP 37.2; O2SAT 93
[2024-08-21 07:07] LABS: Ammonia 92 umol/L (13-55)
[2024-08-21 07:12] LABS: Basophils Percent Auto 0.1 % (0-2); Hemoglobin 7.3 g/dl (12.0-16.0); PLT CLUMP 1; SCAN SMEAR FLAG 1
[2024-08-21 07:13] LABS: INTERNATIONAL NORM RATIO 2.1 (0.9-1.1); Prothrombin Time 23.7 SEC (10.9-12.4)
[2024-08-21 07:14] LABS: Eosinophils Absolute Auto 0.1 X10*3/uL (0.0-0.4); Hematocrit 21.9 % (37.0-47.0); Imm Gran Abs Auto 0.17 X10*3/uL (0.00-0.03); Imm Gran Pct Auto 2.4 % (0.0-0.4); Lymphocytes Absolute Auto 0.7 X10*3/uL (1.2-4.9); Lymphocytes Percent Auto 9.2 % (20-40); Mean Corpuscular HGB Conc 33.3 g/dl (31.0-35.0); Mean Corpuscular Hemoglobin 34.9 pg (27.0-33.0); Mean Corpuscular Volume 104.8 fL (80.0-98.0); Mean Platelet Volume 9.8 fL (9.4-12.3); Monocytes Absolute Auto 0.8 X10*3/uL (0.1-1.2); Monocytes Percent Auto 10.6 % (2-11); Neutrophils Absolute Auto 5.5 x10*3/uL (2.0-8.3); Neutrophils Percent Auto 76.7 % (45-73); Red Blood Count 2.09 X10*6/uL (4.20-5.50); Red Cell Distribution Width 26.3 % (11.0-16.0)
[2024-08-21 07:15] LABS: Platelet Count 116 X10*3/uL (160-400); White Blood Count 7.2 X10*3/uL (4.8-10.8)
[2024-08-21 07:24] LABS: Anion Gap 16 (12-20); Blood Urea Nitrogen 4 mg/dL (9-16); Calcium 8.5 mg/dL (8.4-10.2); Carbon Dioxide 26 mmol/L (22-29); Chloride 97 mmol/L (96-108); Creatinine Clr Calc Pharmacy 152.7; Estimated Glomerular Filt Rate > 60; Glucose Random 66 mg/dL (60-115); Potassium 3.4 mmol/L (3.3-5.1); Sodium 136 mmol/L (135-145)
[2024-08-21 07:26] LABS: Alanine Aminotransferase 46 U/L (0-31); Albumin Level 3.9 g/dL (3.5-5.0); Alkaline Phosphatase 222 U/L (39-117); Aspartate Amino Transferase 78 U/L (5-31); Bilirubin Direct 14.2 mg/dL (0.0-0.5); Magnesium 1.8 mg/dL (1.6-2.6)
[2024-08-21] MEDS: rifAXIMin 550 MG TABLET PO ×2 (08:57→21:15)
[2024-08-21] MEDS: Thiamine HCL 100 MG TABLET PO (08:57)
[2024-08-21] MEDS: prednisoLONE sodium phosphate 15 MG/5 ML SOLUTION 40 MG PO (08:57)
[2024-08-21] MEDS: Folic Acid 1 MG TABLET PO (08:57)
[2024-08-21] MEDS: Multivitamin TABLET 1 TAB PO (08:57)
[2024-08-21] MEDS: Magnesium Oxide 400 MG TABLET PO ×2 (08:57→18:22)
[2024-08-21] MEDS: Midodrine HCl 5 MG TABLET PO ×3 (08:57→18:16)
[2024-08-21] MEDS: Buprenorphine/Naloxone 8/2 mg FILM 1 FILM BUCCAL (09:30)
[2024-08-21 11:51] VITALS: BP 115/64; PULSE 83; RESP 18; TEMP 37.2; O2SAT 92
[2024-08-21] MEDS: Phytonadione (Vit K1) Oral 10 MG/ML AMPUL PO (12:25)
[2024-08-21] MEDS: cefTRIAXone sodium 1 GM VIAL IVPUSH (13:28)
[2024-08-21 14:00] LABS: Hematocrit 24.6 % (37.0-47.0); Mean Corpuscular HGB Conc 32.5 g/dl (31.0-35.0); Mean Corpuscular Hemoglobin 34.6 pg (27.0-33.0); Mean Corpuscular Volume 106.5 fL (80.0-98.0); NRBC Pct Auto 0.6 /100WBC (0.0-0.2); Platelet Count 113 X10*3/uL (160-400); Red Blood Count 2.31 X10*6/uL (4.20-5.50); Red Cell Distribution Width 26.5 % (11.0-16.0)
--- NOTE | 2024-08-21 14:46 | HO.PM.IMPN ---
Subjective Subjective Date of Service: 08/21/24 Interval History: seen and evaluated this morning worsening jaundiced and remains encephalopathic having bowel movements Bili stblilized at 21 PT and INR mildly up 23 and 2.1 Transaminitis improving Review of Systems Review of Systems: Yes all other systems are reviewed and are negative Physical Exam Vital Signs: Vital Signs: Last Vital Signs Temp 98.9 F 08/21/24 11:51 Pulse 83 08/21/24 11:51 Resp 18 08/21/24 11:51 BP 115/64 08/21/24 11:51 Pulse Ox 92 08/21/24 11:51 O2 Del Method Room Air 08/21/24 11:51 BMI result Body Mass Index 43.3 Const: Other: General: altred, response to stimuli, jaundiced heent: sclear icteris Resp: CTA bilateral CVS: S1,S2,RRR, +1 bilateral edema GI: +BS, NT, no distention, moderate ascites Skin: No rash Neuro: motor grossly intact, alert with stimultation, moving all extremities, encephalopathic Psych: appropriate affect Objective Data Active Medications Buprenorphine/Naloxone (Buprenorphine/Naloxone 8/2 Mg Film) 1 film BUCCAL DAILY [facility] Last Admin: 08/21/24 09:30 Dose: 1 film Documented By: ROSIE Ceftriaxone Sodium (Ceftriaxone Sodium 1 Gm Vial) 1 gm IVPUSH Q24H [facility] Last Admin: 08/21/24 13:28 Dose: 1 gm Documented By: ROSIE Folic Acid (Folic Acid 1 Mg Tablet) 1 mg PO DAILY [facility] Last Admin: 08/21/24 08:57 Dose: 1 mg Documented By: ROSIE Hydroxyzine HCl (Hydroxyzine Hcl 25 Mg Tablet) 25 mg PO Q6H PRN PRN Reason: Anxiety Lactulose (Lactulose 20 Gm/30 Ml Solution) 30 gm PO QID [facility] Last Admin: 08/21/24 08:58 Dose: Not Given Documented By: ROSIE Non-Admin Reason: Physician Held Med Magnesium Oxide (Magnesium Oxide 400 Mg Tablet) 400 mg PO BIDPC [facility] Last Admin: 08/21/24 08:57 Dose: 400 mg Documented By: ROSIE Midodrine (Midodrine Hcl 5 Mg Tablet) 5 mg PO TIDWM [facility] Last Admin: 08/21/24 12:25 Dose: 5 mg Documented By: ROSIE Multivitamins/Vitamin C (Multivitamin Tablet) 1 tab PO DAILY [facility] Last Admin: 08/21/24 08:57 Dose: 1 tab Documented By: ROSIE Pharmacy Consult (Consult Rx Etoh Phenob Im/Po) 1 each MISCELLANE ONCE PRN; Protocol PRN Reason: Consult order Prednisolone Sodium Phosphate (Prednisolone Sodium Phosphate 15 Mg/5 Ml Solution) 40 mg PO DAILY [facility] Last Admin: 08/21/24 08:57 Dose: 40 mg Documented By: ROSIE Rifaximin (Rifaximin 550 Mg Tablet) 550 mg PO BID [facility] Last Admin: 08/21/24 08:57 Dose: 550 mg Documented By: ROSIE Thiamine HCl (Thiamine Hcl 100 Mg Tablet) 100 mg PO DAILY [facility] Last Admin: 08/21/24 08:57 Dose: 100 mg Documented By: ROSIE Labs 08/21/24 13:52 08/21/24 06:45 Labs: Laboratory Results - last 24 hr 08/21/24 08/21/24 06:45 13:52 MCV 104.8 H D 106.5 H MCH 34.9 H 34.6 H MCHC 33.3 32.5 RDW 26.3 H 26.5 H Plt Count 116 L 113 L MPV 9.8 10.0 Immature Gran % (Auto) 2.4 H Neut % (Auto) 76.7 H Lymph % (Auto) 9.2 L [place] % (Auto) 10.6 Eos % (Auto) 1.0 Baso % (Auto) 0.1 Lymph # (Auto) 0.7 L [place] # (Auto) 0.8 Eos # (Auto) 0.1 Baso # (Auto) 0.0 Abs Immat Gran (auto) 0.17 H Absolute Neuts (auto) 5.5 Absolute Nucleated RBC 0.070 H 0.050 H Nucleated RBC % (auto) 1.0 H 0.6 H PT 23.7 H INR 2.1 H Anion Gap 16 Estim Creat Clear Calc 152.7 Estimated GFR > 60 Random Glucose 66 Calcium 8.5 D Magnesium 1.8 Total Bilirubin 21.0 H Direct Bilirubin 14.2 H AST 78 H ALT 46 H Alkaline Phosphatase 222 H Ammonia 92 H Total Protein 6.0 L Albumin 3.9 Assessment and Plan (1) Hepatic encephalopathy: Status: Acute (2) Alcoholic hepatitis: Status: Acute (3) Hypomagnesemia: Status: Acute (4) Acute alcoholic hepatitis: Status: Acute (5) High anion gap metabolic acidosis: Status: Acute (6) Physical deconditioning: Status: Acute (7) Alcohol use disorder, severe, dependence: Status: Acute Plan 53F PMH etoh dependence, morbid obesity s/p gastric bypass, etoh fatty liver, mood disorder, opiate dependence, was brought in by ambulance for weakness and falls Acute metabolic encephalopathy due to acute hepatic encephalopathy and acute alcoholic hepatitis High Maddery score of 72, stable stabilizing Bili up to 21, INR up to 2.1, PT to 23 Lactulose to 30 QID Started PRednosolone 40 mg daily on 08/19 Increase Rifaximin to tid Albumin IV to support BP Sprinolactone 12.5 bid SBP Prophylaxis Poor prognisis mental status is better but easily confused negative hep serology GI rec to start PRendisolone for now monitor LFTs, alcohol abstinence, Addiction team following Alcohol withdrawal [facility] PHenobarb protocol Folic acid, thiamine, multivitamin repeat ammonia tomorrow Acute hypokalemia K improved after IV and PO replacement and follow Acute hyponatremia, improved to 131 Likely combination of poor solute intake/ beer potomania and 3rd spacing from acute alcoholic hepatitis Fluid restrict, monitor Acute hypomagnesemia, replaced metabolic acidosis, likely d/t liver failure, bicab stable repeat blood work Acute on chronic anemia, stable hemoglobin 8 consider transfusion if drops below 7 elevated retic count and LDH, can not rule hemolysis with low haptoglobin Thrombocytopenia likely from chronic liver disease, stable Morbid obesity status post gastric bypass Opiate dependence Reports being on Suboxone, follow up Addiction DVT prophylaxis-mechanical due to extensive bruising, low plat Full code Given degree of hepatitis, encephalopathy, expected require overnight hospital stay for close monitoring of liver enzymes and coagulation profile along with replacing electrolytes Quality Stroke Does the patient have a stroke diagnosis?: No VTE Prior VTE?: No VTE Risk Level:: Medical - moderate - high VTE Device Contraindication: N/A - Device Ordered VTE Drug Contraindication: Treatment Not Tolerated
[2024-08-21] MEDS: Lactulose 20 GM/30 ML SOLUTION 30 GM PO ×3 (14:57→21:15)
[2024-08-21 15:12] VITALS: BP 126/54; PULSE 92; RESP 18; TEMP 37.2; O2SAT 96
[2024-08-21] MEDS: Spironolactone 25 MG TABLET 12.5 MG PO (18:15)
[2024-08-21 20:00] VITALS: BP 95/52; PULSE 79; RESP 18; TEMP 37.3; O2SAT 95
[2024-08-21 23:58] VITALS: BP 85/52; PULSE 76; RESP 18; TEMP 36.7; O2SAT 96
[2024-08-22] VITALS (8 sets, daily range): BP systolic 92–133; BP diastolic 54–75; PULSE 80–91; RESP 15–18; TEMP 36.2–37.6; O2SAT 92–96
[2024-08-22] MEDS: Albumin Human 25 % 100 ML 133.33 ML IV ×2 (00:42→01:33)
[2024-08-22 06:35] LABS: Prothrombin Time 22.5 SEC (10.9-12.4)
[2024-08-22 06:36] LABS: Ammonia 85 umol/L (13-55)
[2024-08-22 06:56] LABS: Hematocrit 25.2 % (37.0-47.0); Hemoglobin 8.3 g/dl (12.0-16.0); Mean Corpuscular HGB Conc 32.9 g/dl (31.0-35.0); Mean Corpuscular Hemoglobin 35.2 pg (27.0-33.0); Mean Corpuscular Volume 106.8 fL (80.0-98.0); Mean Platelet Volume 10.3 fL (9.4-12.3); NRBC Pct Auto 0.5 /100WBC (0.0-0.2); Platelet Count 128 X10*3/uL (160-400); Red Blood Count 2.36 X10*6/uL (4.20-5.50); Red Cell Distribution Width 27.1 % (11.0-16.0); White Blood Count 7.7 X10*3/uL (4.8-10.8)
[2024-08-22 06:57] LABS: Anion Gap 15 (12-20); Blood Urea Nitrogen 4 mg/dL (9-16); Calcium 8.8 mg/dL (8.4-10.2); Carbon Dioxide 27 mmol/L (22-29); Chloride 96 mmol/L (96-108); Creatinine Clr Calc Pharmacy 140.9; Estimated Glomerular Filt Rate > 60; Potassium 3.2 mmol/L (3.3-5.1); Sodium 135 mmol/L (135-145)
[2024-08-22 07:14] LABS: Bilirubin Direct 15.9 mg/dL (0.0-0.5)
[2024-08-22 07:15] LABS: Alanine Aminotransferase 43 U/L (0-31); Alkaline Phosphatase 216 U/L (39-117); Aspartate Amino Transferase 81 U/L (5-31); Bilirubin Total 23.7 mg/dL (0.0-1.0); Total Protein 6.2 g/dL (6.5-8.0)
[2024-08-22 07:49] LABS: Glucose Random 59 mg/dL (60-115)
--- NOTE | 2024-08-22 08:13 | P.CDIM_ITS ---
PROVIDER RESPONSE TEXT: To clarify, the appropriate diagnosis supported by the clinical indicators: Acute QUERY TEXT: PHYSICIAN'S DOCUMENTATION REQUEST Date of Query: 08/18/2024 01:12 PM EDT Patient Name: Beverley Mims Admit Date: 08/16/2024 Dear Christiano Tompkins MD, A review of the medical record indicates additional documentation may be needed. Please review below and update the documentation accordingly. Clinical Indicators: Progress note: metabolic acidosis, likely from chronic liver disease, stable Clarify which of the following accurately represents the acuity of the metabolic acidosis: Possible options might include: Acute Chronic Other (explain) Clinically unable to determine (explain) Thank you, Ella Crain, CCS, CDIS Use of terms such as suspected, likely, concern for, or probable (associated with a specific diagnosi s that is being evaluated, monitored, or treated as if it exists) are acceptable and can be coded in the inpatient se tting, when documented at the time of discharge. Please use your independent medical judgment in providing your response. THIS QUERY IS PART OF THE PERMANENT MEDICAL RECORD
[2024-08-22 08:19] LABS: Atypical Lymph Absolute Manual 0.2 x10*3/uL; Atypical Lymphs Percent Manual 2 % (0-6); Band Neutrophils Percent 7 % (3-5); Eosinophils Absolute Manual 0.1 X10*3/uL (0.0-0.4); Eosinophils Percent Manual 1 % (0-4); Lymphocytes Absolute Manual 0.5 X10*3/uL (1.2-4.9); Lymphocytes Percent Manual 7 % (20-40); Metamyelocytes Absolute 0.1 X10*3/uL; Metamyelocytes Percent 1 %; Monocytes Absolute Manual 0.8 X10*3/uL (0.1-1.2); Monocytes Percent Manual 10 % (2-11); Neutrophils Absolute Manual 6.1 X10*3/uL (2.0-8.3); Neutrophils Percent Manual 72 % (45-73); Nucleated Red Blood Cells 1 /100WBC (0-0)
[2024-08-22 08:25] LABS: Macrocytosis 1+ (5-14) /OIF; RBC Morphology NOTED
[2024-08-22 08:26] LABS: Platelet Estimate SLIGHTLY DECREASED (NORMAL); Platelet Morphology Comment NORMAL; Spherocytes 2+ (3-5) /OIF; Toxic Vacuolation PRESENT
[2024-08-22] MEDS: Potassium Chloride Packet 20 MEQ PACKET 40 MEQ PO ×2 (08:37→11:48)
[2024-08-22] MEDS: Lactulose 20 GM/30 ML SOLUTION 30 GM PO (08:38)
[2024-08-22] MEDS: rifAXIMin 550 MG TABLET PO ×2 (08:38→19:57)
[2024-08-22] MEDS: prednisoLONE sodium phosphate 15 MG/5 ML SOLUTION 40 MG PO (08:38)
[2024-08-22] MEDS: Buprenorphine/Naloxone 8/2 mg FILM 1 FILM BUCCAL (08:38)
[2024-08-22] MEDS: Folic Acid 1 MG TABLET PO (08:39)
[2024-08-22] MEDS: Midodrine HCl 5 MG TABLET PO ×3 (08:39→18:50)
[2024-08-22] MEDS: Thiamine HCL 100 MG TABLET PO (08:39)
[2024-08-22] MEDS: Multivitamin TABLET 1 TAB PO (08:39)
[2024-08-22] MEDS: Magnesium Oxide 400 MG TABLET PO ×2 (08:39→18:49)
[2024-08-22] MEDS: Spironolactone 25 MG TABLET 12.5 MG PO ×2 (08:39→18:50)
[2024-08-22 09:03] LABS: Glucose, Whole Blood 82 mg/dL (60-115)
--- NOTE | 2024-08-22 10:03 | P.PNADD_ITS ---
Subjective Subjective Date of Service: 08/22/24 Reason For Visit: etoh hepatitis Interim History: Patient seen in follow up for AUD Still encephalopathic, however more awake/alert today, speech improved as well(easier to understand)--but still very slow to respond Jaundiced appearance, weak. Bili 23.7 (21 yesterday), Ammonia 85 (92 yesterday) No withdrawal sx. Suboxone 8mg QD Review of Systems Review of Systems Yes Unobtainable due to mental status Mental Status Exam Mental Status Exam Patient Appearance: Appropriate Level of Consciousness: Awake, Disoriented and Lethargic Patient Behavior: Confused Affect Description: Calm and Flat Speech Pattern: Slurred Judgement: Poor Diagnostics Vital Signs (24Hr): Vital Signs - 24 hr 08/21/24 11:51 08/21/24 15:12 08/21/24 20:00 Temperature 98.9 F 98.9 F 99.1 F Pulse Rate 83 92 79 Respiratory Rate 18 18 18 Blood Pressure 115/64 126/54 L 95/52 L Pulse Oximetry 92 96 95 Oxygen Delivery Method Room Air Room Air Room Air 08/21/24 23:58 08/22/24 02:38 08/22/24 04:00 Temperature 98.0 F 99.6 F Pulse Rate 76 83 88 Respiratory Rate 18 18 Blood Pressure 85/52 L 92/54 L 99/60 Pulse Oximetry 96 94 Oxygen Delivery Method Room Air Room Air 08/22/24 07:31 Temperature 97.1 F Pulse Rate 87 Respiratory Rate 17 Blood Pressure 118/64 Pulse Oximetry 92 Oxygen Delivery Method Room Air BMI result Body Mass Index 43.3 Labs 08/22/24 06:02 08/22/24 06:02 Labs: Laboratory Results - last 48 hr 08/20/24 08/21/24 08/21/24 13:11 06:45 13:52 WBC 7.2 9.0 RBC 2.09 L 2.31 L Hgb 7.3 L 8.0 L Hct 21.9 L 24.6 L MCV 104.8 H D 106.5 H MCH 34.9 H 34.6 H MCHC 33.3 32.5 RDW 26.3 H 26.5 H Plt Count 116 L 113 L MPV 9.8 10.0 Immature Gran % (Auto) 2.4 H Neut % (Auto) 76.7 H Lymph % (Auto) 9.2 L [place] % (Auto) 10.6 Eos % (Auto) 1.0 Baso % (Auto) 0.1 Lymph # (Auto) 0.7 L [place] # (Auto) 0.8 Eos # (Auto) 0.1 Baso # (Auto) 0.0 Abs Immat Gran (auto) 0.17 H Absolute Neuts (auto) 5.5 Absolute Nucleated RBC 0.070 H 0.050 H Nucleated RBC % (auto) 1.0 H 0.6 H Neutrophils % (Manual) Band Neutrophils % Lymphocytes % (Manual) Atypical Lymphs % (Man) Monocytes % (Manual) Eosinophils % (Manual) Metamyelocytes % Abs Neuts (Manual) Lymphocytes # (Manual) Atyp Lymphs # (Manual) Monocytes # (Manual) Eosinophils # (Manual) Metamyelocytes # Nucleated RBCs Toxic Vacuolation Platelet Estimate Plt Morphology Comment RBC Morphology Macrocytosis Spherocytes PT 23.7 H INR 2.1 H Sodium 135 136 Potassium 3.1 L D 3.4 Chloride 94 L 97 Carbon Dioxide 29 26 Anion Gap 15 16 BUN 4 L 4 L Creatinine 0.50 0.48 L Estim Creat Clear Calc 146.6 152.7 Estimated GFR > 60 > 60 POC Glucose Random Glucose 123 H 66 Calcium 7.8 L 8.5 D Magnesium 1.8 Total Bilirubin 21.0 H Direct Bilirubin 14.2 H AST 78 H ALT 46 H Alkaline Phosphatase 222 H Ammonia 92 H Total Protein 6.0 L Albumin 3.9 08/22/24 08/22/24 06:02 08:59 WBC 7.7 RBC 2.36 L Hgb 8.3 L Hct 25.2 L MCV 106.8 H MCH 35.2 H MCHC 32.9 RDW 27.1 H Plt Count 128 L MPV 10.3 Immature Gran % (Auto) Cancelled Neut % (Auto) Cancelled Lymph % (Auto) Cancelled [place] % (Auto) Cancelled Eos % (Auto) Cancelled Baso % (Auto) Cancelled Lymph # (Auto) Cancelled [place] # (Auto) Cancelled Eos # (Auto) Cancelled Baso # (Auto) Cancelled Abs Immat Gran (auto) Cancelled Absolute Neuts (auto) Cancelled Absolute Nucleated RBC 0.040 H Nucleated RBC % (auto) 0.5 H Neutrophils % (Manual) 72 Band Neutrophils % 7 H Lymphocytes % (Manual) 7 L Atypical Lymphs % (Man) 2 Monocytes % (Manual) 10 Eosinophils % (Manual) 1 Metamyelocytes % 1 Abs Neuts (Manual) 6.1 Lymphocytes # (Manual) 0.5 L Atyp Lymphs # (Manual) 0.2 Monocytes # (Manual) 0.8 Eosinophils # (Manual) 0.1 Metamyelocytes # 0.1 Nucleated RBCs 1 H Toxic Vacuolation PRESENT Platelet Estimate SLIGHTLY DECREASED Plt Morphology Comment NORMAL RBC Morphology NOTED Macrocytosis 1+ (5-14) Spherocytes 2+ (3-5) PT 22.5 H INR 2.0 H Sodium 135 Potassium 3.2 L Chloride 96 Carbon Dioxide 27 Anion Gap 15 BUN 4 L Creatinine 0.52 Estim Creat Clear Calc 140.9 Estimated GFR > 60 POC Glucose 82 Random Glucose 59 L* Calcium 8.8 Magnesium Total Bilirubin 23.7 H Direct Bilirubin 15.9 H AST 81 H ALT 43 H Alkaline Phosphatase 216 H Ammonia 85 H Total Protein 6.2 L Albumin 4.0 Imaging Radiology Impressions: ITS Impressions Chest X-Ray 08/18/24 11:38 IMPRESSION: No active pulmonary disease. Electronically signed by: Hernán Alan MD 08/18/2024 11:52 AM EDT RP Medications Medications Current Medications Buprenorphine/Naloxone (Buprenorphine/Naloxone 4/1 Mg Film) 1 film SUBLINGUAL DAILY [facility] Ceftriaxone Sodium (Ceftriaxone Sodium 1 Gm Vial) 1 gm IVPUSH Q24H [facility] Last Admin: 08/21/24 13:28 Dose: 1 gm Folic Acid (Folic Acid 1 Mg Tablet) 1 mg PO DAILY [facility] Last Admin: 08/22/24 08:39 Dose: 1 mg Hydroxyzine HCl (Hydroxyzine Hcl 25 Mg Tablet) 25 mg PO Q6H PRN PRN Reason: Anxiety Lactulose (Lactulose 20 Gm/30 Ml Solution) 30 gm PO QID [facility] Last Admin: 08/22/24 08:38 Dose: 30 gm Magnesium Oxide (Magnesium Oxide 400 Mg Tablet) 400 mg PO BIDPC [facility] Last Admin: 08/22/24 08:39 Dose: 400 mg Midodrine (Midodrine Hcl 5 Mg Tablet) 5 mg PO TIDWM [facility] Last Admin: 08/22/24 08:39 Dose: 5 mg Multivitamins/Vitamin C (Multivitamin Tablet) 1 tab PO DAILY [facility] Last Admin: 08/22/24 08:39 Dose: 1 tab Pharmacy Consult (Consult Rx Etoh Phenob Im/Po) 1 each MISCELLANE ONCE PRN; Protocol PRN Reason: Consult order Prednisolone Sodium Phosphate (Prednisolone Sodium Phosphate 15 Mg/5 Ml Solution) 40 mg PO DAILY [facility] Last Admin: 08/22/24 08:38 Dose: 40 mg Rifaximin (Rifaximin 550 Mg Tablet) 550 mg PO BID [facility] Last Admin: 08/22/24 08:38 Dose: 550 mg Spironolactone (Spironolactone 25 Mg Tablet) 12.5 mg PO BID@0900,1800 [facility]; Protocol Last Admin: 08/22/24 08:39 Dose: 12.5 mg Thiamine HCl (Thiamine Hcl 100 Mg Tablet) 100 mg PO DAILY [facility] Last Admin: 08/22/24 08:39 Dose: 100 mg Allergies Allergies Allergy/AdvReac Type Severity Reaction Status Date / Time No Known Allergies Allergy Verified 08/16/24 06:33 Assessment & Plan Assessment & Plan (1) Alcohol use disorder, severe, dependence: Status: Acute Code(s): F10.20 - Alcohol dependence, uncomplicated Assessment and Plan: * no withdrawal --CIWA d/c * continue thiamine (2) Opioid use disorder, severe, in sustained remission: Status: Acute Code(s): F11.21 - Opioid dependence, in remission Assessment and Plan: * Suboxone dose decreased to 4mg tomorrow (08/23). At admission it was reported that she was taking 8mg BID, however given AMS, dose was decreased to 8mg QD, and patient has tolerated this without issue. Will reduce to 4mg QD tomorrow AM. WIll monitor for withdrawal sx, however unlikely given that she had been receiving Sublocade for some time prior to switching back to PO films recently. * If concern for withdrawal arises, will address then. Total time managing care of this patient today __35__ minutes.
--- NOTE | 2024-08-22 12:47 | MHC.CM.PN ---
EMR REVIEWED, PT W/ETOH AND ENCEPHALOPATHIC, PER HOSPITALIST NO PLANS FOR DC AT THIS TIME, CM WILL CONT TO FOLLOW DC PLANS.
[2024-08-22] MEDS: cefTRIAXone sodium 1 GM VIAL IVPUSH (13:03)
[2024-08-22 13:13] LABS: Anti Nuclear Antibody Screen NEGATIVE (NEGATIVE)
--- NOTE | 2024-08-22 15:47 | P.PNIM_ITS ---
Subjective Subjective Date of Service: 08/22/24 Interval History: seen and evaluated this morning worsening jaundiced and remains encephalopathic having bowel movements Bili worse at 23 PT and INR mildly up 23 and 2.1 Transaminitis improving Review of Systems Review of Systems: Yes all other systems are reviewed and are negative Physical Exam 2 Vital Signs: Vital Signs: Last Vital Signs Temp 98.2 F 08/22/24 15:16 Pulse 82 08/22/24 15:16 Resp 15 08/22/24 15:16 BP 113/61 08/22/24 15:16 Pulse Ox 92 08/22/24 15:16 O2 Del Method Room Air 08/22/24 15:16 BMI result Body Mass Index 43.3 Const: Other: General: altred, response to stimuli, jaundiced heent: sclear icteris Resp: CTA bilateral CVS: S1,S2,RRR, +1 bilateral edema GI: +BS, NT, no distention, moderate ascites Skin: No rash Neuro: motor grossly intact, alert with stimultation, moving all extremities, encephalopathic Psych: appropriate affect Objective Data Active Medications Buprenorphine/Naloxone (Buprenorphine/Naloxone 4/1 Mg Film) 1 film SUBLINGUAL DAILY [facility] Ceftriaxone Sodium (Ceftriaxone Sodium 1 Gm Vial) 1 gm IVPUSH Q24H [facility] Last Admin: 08/22/24 13:03 Dose: 1 gm Documented By: LEDA Folic Acid (Folic Acid 1 Mg Tablet) 1 mg PO DAILY [facility] Last Admin: 08/22/24 08:39 Dose: 1 mg Documented By: LEDA Hydroxyzine HCl (Hydroxyzine Hcl 25 Mg Tablet) 25 mg PO Q6H PRN PRN Reason: Anxiety Lactulose (Lactulose 20 Gm/30 Ml Solution) 30 gm PO QID [facility] Last Admin: 08/22/24 13:06 Dose: Not Given Documented By: LEDA Non-Admin Reason: per Magnesium Oxide (Magnesium Oxide 400 Mg Tablet) 400 mg PO BIDPC [facility] Last Admin: 08/22/24 08:39 Dose: 400 mg Documented By: LEDA Midodrine (Midodrine Hcl 5 Mg Tablet) 5 mg PO TIDWM [facility] Last Admin: 08/22/24 13:03 Dose: 5 mg Documented By: LEDA Multivitamins/Vitamin C (Multivitamin Tablet) 1 tab PO DAILY [facility] Last Admin: 08/22/24 08:39 Dose: 1 tab Documented By: LEDA Pharmacy Consult (Consult Rx Etoh Phenob Im/Po) 1 each MISCELLANE ONCE PRN; Protocol PRN Reason: Consult order Prednisolone Sodium Phosphate (Prednisolone Sodium Phosphate 15 Mg/5 Ml Solution) 40 mg PO DAILY [facility] Last Admin: 08/22/24 08:38 Dose: 40 mg Documented By: LEDA Rifaximin (Rifaximin 550 Mg Tablet) 550 mg PO BID [facility] Last Admin: 08/22/24 08:38 Dose: 550 mg Documented By: LEDA Spironolactone (Spironolactone 25 Mg Tablet) 12.5 mg PO BID@0900,1800 [facility]; Protocol Last Admin: 08/22/24 08:39 Dose: 12.5 mg Documented By: LEDA Thiamine HCl (Thiamine Hcl 100 Mg Tablet) 100 mg PO DAILY [facility] Last Admin: 08/22/24 08:39 Dose: 100 mg Documented By: LEDA Labs 08/22/24 06:02 08/22/24 06:02 Labs: Laboratory Results - last 24 hr 08/17/24 08/22/24 08/22/24 09:43 06:02 08:59 MCV 106.8 H MCH 35.2 H MCHC 32.9 RDW 27.1 H Plt Count 128 L MPV 10.3 Immature Gran % (Auto) Cancelled Neut % (Auto) Cancelled Lymph % (Auto) Cancelled [place] % (Auto) Cancelled Eos % (Auto) Cancelled Baso % (Auto) Cancelled Lymph # (Auto) Cancelled [place] # (Auto) Cancelled Eos # (Auto) Cancelled Baso # (Auto) Cancelled Abs Immat Gran (auto) Cancelled Absolute Neuts (auto) Cancelled Absolute Nucleated RBC 0.040 H Nucleated RBC % (auto) 0.5 H Neutrophils % (Manual) 72 Band Neutrophils % 7 H Lymphocytes % (Manual) 7 L Atypical Lymphs % (Man) 2 Monocytes % (Manual) 10 Eosinophils % (Manual) 1 Metamyelocytes % 1 Abs Neuts (Manual) 6.1 Lymphocytes # (Manual) 0.5 L Atyp Lymphs # (Manual) 0.2 Monocytes # (Manual) 0.8 Eosinophils # (Manual) 0.1 Metamyelocytes # 0.1 Nucleated RBCs 1 H Toxic Vacuolation PRESENT Platelet Estimate SLIGHTLY DECREASED Plt Morphology Comment NORMAL RBC Morphology NOTED Macrocytosis 1+ (5-14) Spherocytes 2+ (3-5) PT 22.5 H INR 2.0 H Anion Gap 15 Estim Creat Clear Calc 140.9 Estimated GFR > 60 POC Glucose 82 Random Glucose 59 L* Calcium 8.8 Total Bilirubin 23.7 H Direct Bilirubin 15.9 H AST 81 H ALT 43 H Alkaline Phosphatase 216 H Ammonia 85 H Total Protein 6.2 L Albumin 4.0 DERRICK Screen NEGATIVE DERRICK Titer TNP DERRICK Titer 2 TNP DERRICK Titer 3 TNP DERRICK Pattern TNP DERRICK Pattern 2 TNP DERRICK Pattern 3 TNP Assessment and Plan (1) Hepatic encephalopathy: Status: Acute (2) Alcoholic hepatitis: Status: Acute (3) Hypomagnesemia: Status: Acute (4) Anemia: Status: Acute (5) Acute alcoholic hepatitis: Status: Acute (6) Physical deconditioning: Status: Acute (7) Opioid use disorder, severe, in sustained remission: Status: Acute (8) Alcohol use disorder, severe, dependence: Status: Acute Plan 53F PMH etoh dependence, morbid obesity s/p gastric bypass, etoh fatty liver, mood disorder, opiate dependence, was brought in by ambulance for weakness and falls Acute metabolic encephalopathy due to acute hepatic encephalopathy and acute alcoholic hepatitis High Maddery score of 77, worsening Bili up to 23, INR up to 2, PT to 22 Lactulose to 30 QID continue PRednosolone 40 mg daily on 08/19 Increase Rifaximin to tid Albumin IV to support BP as needed , Midodrine tid Sprinolactone 12.5 bid SBP Prophylaxis with Ceftriaxone Poor prognisis mental status is better but easily confused negative hep serology GI rec to start PRendisolone for now monitor LFTs, alcohol abstinence, Addiction team following Alcohol withdrawal [facility] PHenobarb protocol Folic acid, thiamine, multivitamin repeat ammonia tomorrow Acute hypokalemia K improved after IV and PO replacement and follow Acute hyponatremia, improved to 135 Likely combination of poor solute intake/ beer potomania and 3rd spacing from acute alcoholic hepatitis Fluid restrict, monitor Acute hypomagnesemia, replaced metabolic acidosis, likely d/t liver failure, bicab stable repeat blood work Acute on chronic anemia, stable hemoglobin 8.3 consider transfusion if drops below 7 elevated retic count and LDH, likely compensated hemolysis with low haptoglobin; Thrombocytopenia likely from chronic liver disease, stable Morbid obesity status post gastric bypass Opiate dependence Reports being on Suboxone, follow up Addiction DVT prophylaxis-mechanical due to extensive bruising, low plat Full code Given degree of hepatitis, encephalopathy, expected require overnight hospital stay for close monitoring of liver enzymes and coagulation profile along with replacing electrolytes Quality Stroke Does the patient have a stroke diagnosis?: No VTE Prior VTE?: No VTE Risk Level:: Medical - moderate - high VTE Device Contraindication: N/A - Device Ordered VTE Drug Contraindication: Treatment Not Tolerated
[2024-08-22] MEDS: hydrOXYzine HCL 25 MG TABLET PO (18:50)
[2024-08-22] MEDS: Phytonadione (Vit K1) 10 MG in 0.9 % Sodium Chloride 50 ML 51 MG IV (19:25)
[2024-08-23 02:59] VITALS: BP 103/60; PULSE 75; RESP 18; TEMP 36.7; O2SAT 96
[2024-08-23 07:26] VITALS: BP 105/63; PULSE 88; RESP 14; TEMP 37; O2SAT 93
[2024-08-23 08:37] LABS: INTERNATIONAL NORM RATIO 1.9 (0.9-1.1)
[2024-08-23 08:50] LABS: Alanine Aminotransferase 40 U/L (0-31); Albumin Level 3.4 g/dL (3.5-5.0); Alkaline Phosphatase 194 U/L (39-117); Anion Gap 12 (12-20); Aspartate Amino Transferase 79 U/L (5-31); Blood Urea Nitrogen 6 mg/dL (9-16); Calcium 8.5 mg/dL (8.4-10.2); Carbon Dioxide 29 mmol/L (22-29); Chloride 98 mmol/L (96-108); Creatinine Clr Calc Pharmacy 159.4; Estimated Glomerular Filt Rate > 60; Glucose Random 63 mg/dL (60-115); Potassium 4.2 mmol/L (3.3-5.1); Sodium 135 mmol/L (135-145); Total Protein 5.6 g/dL (6.5-8.0)
[2024-08-23 08:54] LABS: Ammonia 118 umol/L (13-55)
[2024-08-23 09:05] LABS: Bilirubin Total 24.4 mg/dL (0.0-1.0)
[2024-08-23 09:15] LABS: Bilirubin Direct 16.8 mg/dL (0.0-0.5)
[2024-08-23] MEDS: prednisoLONE sodium phosphate 15 MG/5 ML SOLUTION 40 MG PO (09:39)
[2024-08-23] MEDS: Multivitamin TABLET 1 TAB PO (09:41)
[2024-08-23] MEDS: rifAXIMin 550 MG TABLET PO ×2 (09:41→20:16)
[2024-08-23] MEDS: Folic Acid 1 MG TABLET PO (09:41)
[2024-08-23] MEDS: Midodrine HCl 5 MG TABLET PO ×3 (09:41→18:02)
[2024-08-23] MEDS: Magnesium Oxide 400 MG TABLET PO ×2 (09:41→18:02)
[2024-08-23] MEDS: Buprenorphine/Naloxone 4/1 mg FILM 1 FILM SUBLINGUAL (09:41)
[2024-08-23] MEDS: Thiamine HCL 100 MG TABLET PO (09:41)
[2024-08-23] MEDS: Spironolactone 25 MG TABLET 12.5 MG PO ×2 (09:42→18:00)
[2024-08-23 11:33] VITALS: BP 112/77; PULSE 81; RESP 12; TEMP 36.4; O2SAT 92
[2024-08-23] MEDS: cefTRIAXone sodium 1 GM VIAL IVPUSH (12:23)
--- NOTE | 2024-08-23 15:02 | P.PNIM_ITS ---
Subjective Subjective Date of Service: 08/23/24 Interval History: seen and evaluated this morning jaundiced but improving encephalopathy having bowel movements Bili worse at 24.4 PT and INR mildly up 22 and 1.9 Transaminitis improving Review of Systems Review of Systems: Yes all other systems are reviewed and are negative Physical Exam 2 Vital Signs: Vital Signs: Last Vital Signs Temp 97.5 F 08/23/24 11:33 Pulse 81 08/23/24 11:33 Resp 12 08/23/24 11:33 BP 112/77 08/23/24 11:33 Pulse Ox 92 08/23/24 11:33 O2 Del Method Room Air 08/23/24 11:33 BMI result Body Mass Index 43.3 Const: Other: General: altred, response to stimuli, jaundiced heent: sclear icteris Resp: CTA bilateral CVS: S1,S2,RRR, +1 bilateral edema GI: +BS, NT, no distention, moderate ascites Skin: No rash Neuro: motor grossly intact, alert with stimultation, moving all extremities, encephalopathic Psych: appropriate affect Objective Data Active Medications Buprenorphine/Naloxone (Buprenorphine/Naloxone 4/1 Mg Film) 1 film SUBLINGUAL DAILY [facility] Last Admin: 08/23/24 09:41 Dose: 1 film Documented By: KYA Ceftriaxone Sodium (Ceftriaxone Sodium 1 Gm Vial) 1 gm IVPUSH Q24H [facility] Last Admin: 08/23/24 12:23 Dose: 1 gm Documented By: KYA Folic Acid (Folic Acid 1 Mg Tablet) 1 mg PO DAILY [facility] Last Admin: 08/23/24 09:41 Dose: 1 mg Documented By: KYA Hydroxyzine HCl (Hydroxyzine Hcl 25 Mg Tablet) 25 mg PO Q6H PRN PRN Reason: Anxiety Last Admin: 08/22/24 18:50 Dose: 25 mg Documented By: LEDA Lactulose (Lactulose 20 Gm/30 Ml Solution) 30 gm PO QID [facility] Last Admin: 08/23/24 12:14 Dose: Not Given Documented By: KYA Non-Admin Reason: Physician Held Med Magnesium Oxide (Magnesium Oxide 400 Mg Tablet) 400 mg PO BIDPC [facility] Last Admin: 08/23/24 09:41 Dose: 400 mg Documented By: KYA Midodrine (Midodrine Hcl 5 Mg Tablet) 5 mg PO TIDWM [facility] Last Admin: 08/23/24 12:23 Dose: 5 mg Documented By: KYA Multivitamins/Vitamin C (Multivitamin Tablet) 1 tab PO DAILY [facility] Last Admin: 08/23/24 09:41 Dose: 1 tab Documented By: KYA Pharmacy Consult (Consult Rx Etoh Phenob Im/Po) 1 each MISCELLANE ONCE PRN; Protocol PRN Reason: Consult order Prednisolone Sodium Phosphate (Prednisolone Sodium Phosphate 15 Mg/5 Ml Solution) 40 mg PO DAILY [facility] Last Admin: 08/23/24 09:39 Dose: 40 mg Documented By: KYA Rifaximin (Rifaximin 550 Mg Tablet) 550 mg PO BID [facility] Last Admin: 08/23/24 09:41 Dose: 550 mg Documented By: KYA Spironolactone (Spironolactone 25 Mg Tablet) 12.5 mg PO BID@0900,1800 [facility]; Protocol Last Admin: 08/23/24 09:42 Dose: 12.5 mg Documented By: KYA Thiamine HCl (Thiamine Hcl 100 Mg Tablet) 100 mg PO DAILY [facility] Last Admin: 08/23/24 09:41 Dose: 100 mg Documented By: KYA Labs 08/22/24 06:02 08/23/24 08:22 Labs: Laboratory Results - last 24 hr 08/22/24 08/23/24 06:02 08:22 Smear Path Review SEE NOTE PT 22.0 H INR 1.9 H Anion Gap 12 Estim Creat Clear Calc 159.4 Estimated GFR > 60 Random Glucose 63 Calcium 8.5 Total Bilirubin 24.4 H Direct Bilirubin 16.8 H AST 79 H ALT 40 H Alkaline Phosphatase 194 H Ammonia 118 H Total Protein 5.6 L Albumin 3.4 L Assessment and Plan (1) Hepatic encephalopathy: Status: Acute (2) Alcoholic hepatitis: Status: Acute (3) Hypomagnesemia: Status: Acute (4) Acute alcoholic hepatitis: Status: Acute Plan 53F PMH etoh dependence, morbid obesity s/p gastric bypass, etoh fatty liver, mood disorder, opiate dependence, was brought in by ambulance for weakness and falls Acute metabolic encephalopathy due to acute hepatic encephalopathy and acute alcoholic hepatitis High Maddery score of 78, worsening Bili up to 24, INR up to 1.9, PT to 22 Lactulose to 30 QID continue PRednosolone 40 mg daily on 08/19 Increase Rifaximin to tid Albumin IV to support BP as needed , Midodrine tid Sprinolactone 12.5 bid SBP Prophylaxis with Ceftriaxone Poor prognosis, mental status is better negative hep serology GI following monitor LFTs, alcohol abstinence, Addiction team following Alcohol withdrawal resolved finished PHenobarb protocol Folic acid, thiamine, multivitamin repeat ammonia as needed Acute hypokalemia K improved after IV and PO replacement and follow Acute hyponatremia, resolved Likely combination of poor solute intake/ beer potomania and 3rd spacing from acute alcoholic hepatitis Fluid restrict, monitor Acute hypomagnesemia, replaced metabolic acidosis, likely d/t liver failure, bicab stable repeat blood work Acute on chronic anemia, stable hemoglobin 8.3 consider transfusion if drops below 7 elevated retic count and LDH, likely compensated hemolysis with low haptoglobin; Thrombocytopenia likely from chronic liver disease, stable Morbid obesity status post gastric bypass Opiate dependence Reports being on Suboxone, follow up Addiction DVT prophylaxis-mechanical due to extensive bruising, low plat Full code Given degree of hepatitis, encephalopathy, expected require overnight hospital stay for close monitoring of liver enzymes and coagulation profile along with replacing electrolytes Quality Stroke Does the patient have a stroke diagnosis?: No VTE Prior VTE?: No VTE Risk Level:: Medical - moderate - high VTE Device Contraindication: N/A - Device Ordered VTE Drug Contraindication: Treatment Not Tolerated
--- NOTE | 2024-08-23 15:28 | P.CDIM_ITS ---
PROVIDER RESPONSE TEXT: To clarify, the appropriate diagnosis supported by the clinical indicators: Mild QUERY TEXT: PHYSICIAN'S DOCUMENTATION REQUEST Date of Query: 08/23/2024 09:24 AM EDT Patient Name: Beverley Mims Admit Date: 08/16/2024 Dear Christiano Tompkins MD, A review of the medical record indicates additional documentation may be needed. Please review below and update the documentation accordingly. Documentation includes the diagnosis of malnutrition. GI progress note 08/18/24 - Anemia of chronic disease, malnutrition, low level hemolysis. Prognosis is guarded. GI consultation note 08/16/24 - Anemia 2/2 to alcoholic hepatitis, portal htn or nutritional disease. Pt is hardly eating, weakness. Total protein 5.6 Albumin 3.4 If possible, please provide additional specificity regarding the severity of the malnutrition using t he above information: Mild Moderate Severe Other (explain) Clinically unable to determine (explain) Thank you, Ella Crain, CCS, CDIS Use of terms such as suspected, likely, concern for, or probable (associated with a specific diagnosi s that is being evaluated, monitored, or treated as if it exists) are acceptable and can be coded in the inpatient se tting, when documented at the time of discharge. Please use your independent medical judgment in providing your response. THIS QUERY IS PART OF THE PERMANENT MEDICAL RECORD
[2024-08-23 16:00] VITALS: BP 96/50; PULSE 70; RESP 18; TEMP 36.8; O2SAT 96
--- NOTE | 2024-08-23 16:00 | P.PNGI_ITS ---
Subjective Subjective Date of Service: 08/23/24 Interval History: jsut started on steroids due to increasing bili more alert now no abdominal pain just c/o fatigue has bruises on shoulder and arm, right arm swollen as well Critical Care Time (minutes): 0 Physical Exam 2 Vital Signs: Vital Signs: Last Vital Signs Temp 97.5 F 08/23/24 11:33 Pulse 81 08/23/24 11:33 Resp 12 08/23/24 11:33 BP 112/77 08/23/24 11:33 Pulse Ox 92 08/23/24 11:33 O2 Del Method Room Air 08/23/24 11:33 BMI result Body Mass Index 43.3 EXAM: GENERAL: The patient is jaundiced and obese VITAL SIGNS:see workflow HEENT: icteric sclerae, PERRLA, EOMI. Oropharynx clear. Moist mucous membranes. Conjunctivae appear well perfused. No thyroid mass. CHEST: Chest wall is nontender. HEART: Regular rate and rhythm without murmurs. LUNGS: Clear to auscultation bilaterally. ABDOMEN: Soft, positive bowel sounds, nontender, no organomegaly.no flank tenderness SKIN: bruises noted, swollen right arm NEUROLOGIC: Cranial nerves II-XII intact without motor/sensory deficit. Psych: normal affect Objective Data Labs 08/22/24 06:02 08/23/24 08:22 Labs: Laboratory Results - last 24 hr 08/22/24 08/23/24 06:02 08:22 Smear Path Review SEE NOTE PT 22.0 H INR 1.9 H Sodium 135 Potassium 4.2 D Chloride 98 Carbon Dioxide 29 Anion Gap 12 BUN 6 L Creatinine 0.46 L Estim Creat Clear Calc 159.4 Estimated GFR > 60 Random Glucose 63 Calcium 8.5 Total Bilirubin 24.4 H Direct Bilirubin 16.8 H AST 79 H ALT 40 H Alkaline Phosphatase 194 H Ammonia 118 H Total Protein 5.6 L Albumin 3.4 L Procedures Date of Service Date of Service: 08/23/24 Progress Note: A&P Assessment and plan (1) Alcoholic hepatitis: Status: Acute Plan 1/ Alcoholic hepatitis, may have zieve syndrome with hemolysis, also bili may be worse due to skin bruising and resorption of blood. PLAN: 1/ cont with steroids for meantime, stop if any suspicion for infection 2/ cont with high protein diet 3/ rehab and PT 4/ would not be tranplant candidate given poor function at baseline, recent alcohol use Time Spent With Patient Time: Total time managing care of this patient today ____ minutes. Quality Stroke Does the patient have a stroke diagnosis?: No VTE Prior VTE?: No VTE Risk Level:: Medical - moderate - high VTE Device Contraindication: N/A - Device Ordered VTE Drug Contraindication: Treatment Not Tolerated
[2024-08-23 19:57] VITALS: BP 100/55; PULSE 70; RESP 18; TEMP 36.3; O2SAT 94
[2024-08-23] MEDS: Lactulose 20 GM/30 ML SOLUTION 30 GM PO (20:17)
[2024-08-23 23:24] VITALS: BP 109/58; PULSE 68; RESP 18; TEMP 36.5; O2SAT 96
[2024-08-24 03:28] VITALS: BP 121/73; PULSE 75; RESP 16; TEMP 36.7; O2SAT 97
[2024-08-24 06:45] LABS: MANUAL DIFF FLAG NO
[2024-08-24 07:09] LABS: INTERNATIONAL NORM RATIO 1.7 (0.9-1.1)
[2024-08-24 07:33] LABS: Basophils Percent Auto 0.2 % (0-2); Eosinophils Absolute Auto 0.1 X10*3/uL (0.0-0.4); Eosinophils Percent Auto 1.2 % (0-4); Hemoglobin 9.5 g/dl (12.0-16.0); Imm Gran Abs Auto 0.28 X10*3/uL (0.00-0.03); Imm Gran Pct Auto 3.4 % (0.0-0.4); Lymphocytes Absolute Auto 0.6 X10*3/uL (1.2-4.9); Lymphocytes Percent Auto 7.2 % (20-40); Mean Corpuscular HGB Conc 32.8 g/dl (31.0-35.0); Mean Corpuscular Hemoglobin 36.5 pg (27.0-33.0); Monocytes Absolute Auto 0.9 X10*3/uL (0.1-1.2); Monocytes Percent Auto 10.4 % (2-11); NRBC Pct Auto 0.2 /100WBC (0.0-0.2); Neutrophils Absolute Auto 6.4 x10*3/uL (2.0-8.3); Neutrophils Percent Auto 77.6 % (45-73); Platelet Count 155 X10*3/uL (160-400); Red Cell Distribution Width 27.6 % (11.0-16.0); White Blood Count 8.3 X10*3/uL (4.8-10.8)
[2024-08-24 07:46] LABS: Mean Corpuscular Volume 111.5 fL (80.0-98.0)
[2024-08-24 07:50] LABS: Alanine Aminotransferase 40 U/L (0-31); Albumin Level 3.3 g/dL (3.5-5.0); Alkaline Phosphatase 195 U/L (39-117); Anion Gap 15 (12-20); Aspartate Amino Transferase 88 U/L (5-31); Bilirubin Total 25.2 mg/dL (0.0-1.0); Blood Urea Nitrogen 7 mg/dL (9-16); Calcium 8.2 mg/dL (8.4-10.2); Carbon Dioxide 27 mmol/L (22-29); Chloride 100 mmol/L (96-108); Creatinine Clr Calc Pharmacy 209.4; Estimated Glomerular Filt Rate > 60; Glucose Random 50 mg/dL (60-115); Potassium 4.4 mmol/L (3.3-5.1); Sodium 138 mmol/L (135-145); Total Protein 5.9 g/dL (6.5-8.0)
[2024-08-24] MEDS: Lactulose 20 GM/30 ML SOLUTION 30 GM PO ×4 (07:57→20:07)
[2024-08-24] MEDS: prednisoLONE sodium phosphate 15 MG/5 ML SOLUTION 40 MG PO (07:58)
[2024-08-24 08:09] LABS: Bilirubin Direct 17.2 mg/dL (0.0-0.5)
[2024-08-24] MEDS: Multivitamin TABLET 1 TAB PO (08:09)
[2024-08-24] MEDS: Midodrine HCl 5 MG TABLET PO ×3 (08:09→17:14)
[2024-08-24] MEDS: Buprenorphine/Naloxone 4/1 mg FILM 1 FILM SUBLINGUAL (08:09)
[2024-08-24] MEDS: Folic Acid 1 MG TABLET PO (08:09)
[2024-08-24 08:11] VITALS: BP 100/64; PULSE 100; RESP 20; TEMP 36.9; O2SAT 95
[2024-08-24] MEDS: Magnesium Oxide 400 MG TABLET PO ×2 (08:11→17:14)
[2024-08-24] MEDS: Thiamine HCL 100 MG TABLET PO (08:12)
[2024-08-24] MEDS: Spironolactone 25 MG TABLET 12.5 MG PO ×2 (08:12→17:14)
[2024-08-24] MEDS: rifAXIMin 550 MG TABLET PO ×2 (08:12→20:07)
--- NOTE | 2024-08-24 08:18 | PC.NURSE ---
pt had random glucose level of 50. This RN gave pt 8oz orange juice.Will do repeat POC in approximately 25 mins from this note. Will encourage PO intake.
[2024-08-24 09:15] LABS: Glucose, Whole Blood 76 mg/dL (60-115)
--- NOTE | 2024-08-24 10:46 | MHC.CM.PN ---
EMR reviewed and per MD rounds, pt is not medically cleared for discharge due to management of hepatitis, and encephalopathy.
[2024-08-24 11:05] LABS: Glucose, Whole Blood 95 mg/dL (60-115)
[2024-08-24 12:05] VITALS: BP 109/61; PULSE 70; RESP 18; TEMP 36.8; O2SAT 93
--- NOTE | 2024-08-24 12:12 | HO.PM.IMPN ---
Subjective Subjective Date of Service: 08/24/24 Interval History: no compalints Physical Exam Vital Signs: Vital Signs: Last Vital Signs Temp 98.2 F 08/24/24 12:05 Pulse 70 08/24/24 12:05 Resp 18 08/24/24 12:05 BP 109/61 08/24/24 12:05 Pulse Ox 93 08/24/24 12:05 O2 Del Method Room Air 08/24/24 12:05 BMI result Body Mass Index 43.3 General: Lethargic, jaundice, ill-appearing Resp: CTA bilateral, no accessory muscles used CVS: S1,S2,RRR GI: soft, non tender, non distended Neuro: motor grossly intact, alert, asterixis Objective Data Active Medications Buprenorphine/Naloxone (Buprenorphine/Naloxone 4/1 Mg Film) 1 film SUBLINGUAL DAILY [facility] Last Admin: 08/24/24 08:09 Dose: 1 film Documented By: DELVIS Ceftriaxone Sodium (Ceftriaxone Sodium 1 Gm Vial) 1 gm IVPUSH Q24H [facility] Last Admin: 08/23/24 12:23 Dose: 1 gm Documented By: KYA Dextrose (Dextrose 50 % 25 Gm/50 Ml Syringe) 25 gm IVPUSH Q15M PRN PRN Reason: per Hypoglycemia Standing Ord. Folic Acid (Folic Acid 1 Mg Tablet) 1 mg PO DAILY [facility] Last Admin: 08/24/24 08:09 Dose: 1 mg Documented By: DELVIS Hydroxyzine HCl (Hydroxyzine Hcl 25 Mg Tablet) 25 mg PO Q6H PRN PRN Reason: Anxiety Last Admin: 08/22/24 18:50 Dose: 25 mg Documented By: LEDA Lactulose (Lactulose 20 Gm/30 Ml Solution) 30 gm PO QID [facility] Last Admin: 08/24/24 07:57 Dose: 30 gm Documented By: DELVIS Magnesium Oxide (Magnesium Oxide 400 Mg Tablet) 400 mg PO BIDPC [facility] Last Admin: 08/24/24 08:11 Dose: 400 mg Documented By: DELVIS Midodrine (Midodrine Hcl 5 Mg Tablet) 5 mg PO TIDWM [facility] Last Admin: 08/24/24 08:09 Dose: 5 mg Documented By: DELVIS Multivitamins/Vitamin C (Multivitamin Tablet) 1 tab PO DAILY [facility] Last Admin: 08/24/24 08:09 Dose: 1 tab Documented By: DELVIS Pharmacy Consult (Consult Rx Etoh Phenob Im/Po) 1 each MISCELLANE ONCE PRN; Protocol PRN Reason: Consult order Prednisolone Sodium Phosphate (Prednisolone Sodium Phosphate 15 Mg/5 Ml Solution) 40 mg PO DAILY [facility] Last Admin: 08/24/24 07:58 Dose: 40 mg Documented By: DELVIS Rifaximin (Rifaximin 550 Mg Tablet) 550 mg PO BID [facility] Last Admin: 08/24/24 08:12 Dose: 550 mg Documented By: DELVIS Spironolactone (Spironolactone 25 Mg Tablet) 12.5 mg PO BID@0900,1800 [facility]; Protocol Last Admin: 08/24/24 08:12 Dose: 12.5 mg Documented By: DELVIS Thiamine HCl (Thiamine Hcl 100 Mg Tablet) 100 mg PO DAILY [facility] Last Admin: 08/24/24 08:12 Dose: 100 mg Documented By: DELVIS Labs 08/24/24 06:10 08/24/24 06:10 Labs: Laboratory Results - last 24 hr 08/24/24 08/24/24 08/24/24 06:10 09:09 11:02 MCV 111.5 H MCH 36.5 H MCHC 32.8 RDW 27.6 H Plt Count 155 L MPV 11.0 Immature Gran % (Auto) 3.4 H Neut % (Auto) 77.6 H Lymph % (Auto) 7.2 L [place] % (Auto) 10.4 Eos % (Auto) 1.2 Baso % (Auto) 0.2 Lymph # (Auto) 0.6 L [place] # (Auto) 0.9 Eos # (Auto) 0.1 Baso # (Auto) 0.0 Abs Immat Gran (auto) 0.28 H Absolute Neuts (auto) 6.4 Absolute Nucleated RBC 0.020 H Nucleated RBC % (auto) 0.2 Smear Path Review Cancelled PT 20.0 H INR 1.7 H Anion Gap 15 Estim Creat Clear Calc 209.4 Estimated GFR > 60 POC Glucose 76 95 Random Glucose 50 L* Calcium 8.2 L Total Bilirubin 25.2 H Direct Bilirubin 17.2 H AST 88 H ALT 40 H Alkaline Phosphatase 195 H Total Protein 5.9 L Albumin 3.3 L Assessment and Plan (1) Hepatic encephalopathy: Status: Acute (2) Alcoholic hepatitis: Status: Acute (3) Hypomagnesemia: Status: Acute (4) Acute alcoholic hepatitis: Status: Acute Plan 53F PMH etoh dependence, morbid obesity s/p gastric bypass, etoh fatty liver, mood disorder, opiate dependence, was brought in by ambulance for weakness and falls Acute metabolic encephalopathy due to acute hepatic encephalopathy and acute alcoholic hepatitis Lactulose to 30 QID continue PRednosolone 40 mg daily on 08/19 Rifaximin tid s/p Albumin IV to support BP as needed , Midodrine tid Sprinolactone 12.5 bid SBP Prophylaxis with Ceftriaxone Poor prognosis, mental status is better negative hep serology GI following monitor LFTs, alcohol abstinence Addiction team following not candidate from transplant Alcohol withdrawal resolved finished PHenobarb protocol Folic acid, thiamine, multivitamin Acute hypokalemia K improved after IV and PO replacement and follow Acute hyponatremia, resolved Likely combination of poor solute intake/ beer potomania Fluid restrict, monitor Acute hypomagnesemia, replaced metabolic acidosis, likely d/t liver failure, bicab stable repeat blood work Acute on chronic anemia stable hemoglobin consider transfusion if drops below 7 elevated retic count and LDH, likely compensated hemolysis with low haptoglobin; Thrombocytopenia likely from chronic liver disease, stable Morbid obesity status post gastric bypass Opiate dependence Suboxone DVT prophylaxis-mechanical due to extensive bruising, low plat Full code reason for continued hospitalization:worsening lfts Quality Stroke Does the patient have a stroke diagnosis?: No VTE Prior VTE?: No VTE Risk Level:: Medical - moderate - high VTE Device Contraindication: N/A - Device Ordered VTE Drug Contraindication: Treatment Not Tolerated
[2024-08-24] MEDS: cefTRIAXone sodium 1 GM VIAL IVPUSH (12:15)
[2024-08-24 14:13] VITALS: BP 109/61; PULSE 70; O2SAT 93
[2024-08-24 15:56] VITALS: BP 99/58; PULSE 97; RESP 18; TEMP 36.9; O2SAT 97
[2024-08-24 16:33] LABS: Glucose, Whole Blood 114 mg/dL (60-115)
[2024-08-24 19:49] VITALS: BP 115/60; PULSE 68; RESP 16; TEMP 36.6; O2SAT 95
[2024-08-24 20:51] LABS: Glucose, Whole Blood 82 mg/dL (60-115)
[2024-08-25] VITALS (7 sets, daily range): BP systolic 90–132; BP diastolic 40–90; PULSE 69–89; RESP 16–19; TEMP 36.4–37.7; O2SAT 94–96
[2024-08-25] MEDS: HYDROmorphone HCl 1 MG/ML SYRINGE IVPUSH (00:24)
[2024-08-25] MEDS: hydrOXYzine HCL 25 MG TABLET PO (00:27)
[2024-08-25 06:37] LABS: Hematocrit 30.8 % (37.0-47.0); Mean Corpuscular HGB Conc 32.5 g/dl (31.0-35.0); Mean Corpuscular Volume 110.8 fL (80.0-98.0); Mean Platelet Volume 10.7 fL (9.4-12.3); Platelet Count 174 X10*3/uL (160-400); Red Blood Count 2.78 X10*6/uL (4.20-5.50); White Blood Count 8.6 X10*3/uL (4.8-10.8)
[2024-08-25 06:42] LABS: INTERNATIONAL NORM RATIO 1.6 (0.9-1.1); Prothrombin Time 18.3 SEC (10.9-12.4)
[2024-08-25 07:16] LABS: Glucose, Whole Blood 60 mg/dL (60-115)
[2024-08-25] MEDS: Dextrose 50 % 25 GM/50 ML SYRINGE IVPUSH (07:17)
[2024-08-25] MEDS: Magnesium Oxide 400 MG TABLET PO ×2 (07:20→16:04)
[2024-08-25] MEDS: rifAXIMin 550 MG TABLET PO ×2 (07:20→20:08)
[2024-08-25] MEDS: Multivitamin TABLET 1 TAB PO (07:20)
[2024-08-25] MEDS: Midodrine HCl 5 MG TABLET PO ×3 (07:22→16:04)
[2024-08-25] MEDS: Thiamine HCL 100 MG TABLET PO (07:23)
[2024-08-25] MEDS: Buprenorphine/Naloxone 4/1 mg FILM 1 FILM SUBLINGUAL (07:23)
[2024-08-25] MEDS: Folic Acid 1 MG TABLET PO (07:23)
[2024-08-25] MEDS: Lactulose 20 GM/30 ML SOLUTION 30 GM PO ×4 (07:25→20:08)
[2024-08-25] MEDS: prednisoLONE sodium phosphate 15 MG/5 ML SOLUTION 40 MG PO (07:27)
[2024-08-25 07:48] LABS: Alanine Aminotransferase 41 U/L (0-31); Albumin Level 3.3 g/dL (3.5-5.0); Alkaline Phosphatase 185 U/L (39-117); Anion Gap 15 (12-20); Aspartate Amino Transferase 90 U/L (5-31); Blood Urea Nitrogen 7 mg/dL (9-16); Calcium 8.5 mg/dL (8.4-10.2); Carbon Dioxide 27 mmol/L (22-29); Chloride 99 mmol/L (96-108); Estimated Glomerular Filt Rate > 60; Glucose Random 56 mg/dL (60-115); Potassium 4.2 mmol/L (3.3-5.1); Sodium 137 mmol/L (135-145); Total Protein 5.9 g/dL (6.5-8.0)
[2024-08-25 07:57] LABS: Glucose, Whole Blood 138 mg/dL (60-115)
[2024-08-25 08:20] LABS: Bilirubin Total 26.6 mg/dL (0.0-1.0)
--- NOTE | 2024-08-25 09:48 | HO.PM.IMPN ---
Subjective Subjective Date of Service: 08/25/24 Interval History: unchanged Physical Exam Vital Signs: Vital Signs: Last Vital Signs Temp 99.9 F 08/25/24 07:41 Pulse 89 08/25/24 07:41 Resp 19 08/25/24 07:41 BP 90/40 L 08/25/24 07:41 Pulse Ox 94 08/25/24 07:41 O2 Del Method Room Air 08/25/24 07:41 BMI result Body Mass Index 43.3 General: Lethargic oriented times 3, jaundice, ill-appearing Resp: CTA bilateral, no accessory muscles used CVS: S1,S2,RRR GI: soft, non tender, non distended Neuro: motor grossly intact, alert, mild asterixis RUE swelling Objective Data Active Medications Buprenorphine/Naloxone (Buprenorphine/Naloxone 4/1 Mg Film) 1 film SUBLINGUAL DAILY [facility] Last Admin: 08/25/24 07:23 Dose: 1 film Documented By: ANKIT Ceftriaxone Sodium (Ceftriaxone Sodium 1 Gm Vial) 1 gm IVPUSH Q24H [facility] Last Admin: 08/24/24 12:15 Dose: 1 gm Documented By: DELVIS Dextrose (Dextrose 50 % 25 Gm/50 Ml Syringe) 25 gm IVPUSH Q15M PRN PRN Reason: per Hypoglycemia Standing Ord. Last Admin: 08/25/24 07:17 Dose: 25 gm Documented By: ANKIT Folic Acid (Folic Acid 1 Mg Tablet) 1 mg PO DAILY [facility] Last Admin: 08/25/24 07:23 Dose: 1 mg Documented By: ANKIT Hydroxyzine HCl (Hydroxyzine Hcl 25 Mg Tablet) 25 mg PO Q6H PRN PRN Reason: Anxiety Last Admin: 08/25/24 00:27 Dose: 25 mg Lactulose (Lactulose 20 Gm/30 Ml Solution) 30 gm PO QID [facility] Last Admin: 08/25/24 07:25 Dose: 30 gm Documented By: ANKIT Magnesium Oxide (Magnesium Oxide 400 Mg Tablet) 400 mg PO BIDPC [facility] Last Admin: 08/25/24 07:20 Dose: 400 mg Documented By: ANKIT Midodrine (Midodrine Hcl 5 Mg Tablet) 5 mg PO TIDWM [facility] Last Admin: 08/25/24 07:22 Dose: 5 mg Documented By: ANKIT Multivitamins/Vitamin C (Multivitamin Tablet) 1 tab PO DAILY [facility] Last Admin: 08/25/24 07:20 Dose: 1 tab Documented By: ANKIT Pharmacy Consult (Consult Rx Etoh Phenob Im/Po) 1 each MISCELLANE ONCE PRN; Protocol PRN Reason: Consult order Prednisolone Sodium Phosphate (Prednisolone Sodium Phosphate 15 Mg/5 Ml Solution) 40 mg PO DAILY [facility] Last Admin: 08/25/24 07:27 Dose: 40 mg Documented By: ANKIT Rifaximin (Rifaximin 550 Mg Tablet) 550 mg PO BID [facility] Last Admin: 08/25/24 07:20 Dose: 550 mg Documented By: ANKIT Spironolactone (Spironolactone 25 Mg Tablet) 12.5 mg PO BID@0900,1800 [facility]; Protocol Last Admin: 08/25/24 07:50 Dose: Not Given Documented By: ANKIT Non-Admin Reason: Decreased Blood Pressure Thiamine HCl (Thiamine Hcl 100 Mg Tablet) 100 mg PO DAILY [facility] Last Admin: 08/25/24 07:23 Dose: 100 mg Documented By: ANKIT Labs 08/25/24 05:57 08/25/24 05:57 Labs: Laboratory Results - last 24 hr 08/24/24 08/24/24 08/24/24 11:02 16:28 20:35 MCV MCH MCHC RDW Plt Count MPV Absolute Nucleated RBC Nucleated RBC % (auto) PT INR Anion Gap Estim Creat Clear Calc Estimated GFR POC Glucose 95 114 82 Random Glucose Calcium Total Bilirubin Direct Bilirubin AST ALT Alkaline Phosphatase Total Protein Albumin 08/25/24 08/25/24 08/25/24 05:57 07:07 07:51 MCV 110.8 H MCH 36.0 H MCHC 32.5 RDW 27.0 H Plt Count 174 MPV 10.7 Absolute Nucleated RBC 0.000 Nucleated RBC % (auto) 0.0 PT 18.3 H INR 1.6 H Anion Gap 15 Estim Creat Clear Calc TNP Estimated GFR > 60 POC Glucose 60 138 H Random Glucose 56 L* Calcium 8.5 Total Bilirubin 26.6 H Direct Bilirubin > 30.0 H AST 90 H ALT 41 H Alkaline Phosphatase 185 H Total Protein 5.9 L Albumin 3.3 L Assessment and Plan (1) Hepatic encephalopathy: Status: Acute (2) Alcoholic hepatitis: Status: Acute (3) Hypomagnesemia: Status: Acute (4) Acute alcoholic hepatitis: Status: Acute Plan 53F PMH etoh dependence, morbid obesity s/p gastric bypass, etoh fatty liver, mood disorder, opiate dependence, was brought in by ambulance for weakness and falls Acute metabolic encephalopathy due to acute hepatic encephalopathy and acute alcoholic hepatitis Lactulose to 30 QID continue PRednosolone 40 mg daily on 08/19 Rifaximin tid s/p Albumin IV to support BP as needed , Midodrine tid Sprinolactone 12.5 bid SBP Prophylaxis with Ceftriaxone Poor prognosis, mental status is better negative hep serology GI following monitor LFTs, alcohol abstinence Addiction team following not candidate from transplant Alcohol withdrawal resolved finished PHenobarb protocol Folic acid, thiamine, multivitamin Acute hypokalemia K improved after IV and PO replacement and follow Acute hyponatremia, resolved Likely combination of poor solute intake/ beer potomania Fluid restrict, monitor Acute hypomagnesemia, replaced metabolic acidosis, likely d/t liver failure, resolved Acute on chronic anemia stable hemoglobin consider transfusion if drops below 7 elevated retic count and LDH, likely compensated hemolysis with low haptoglobin; Thrombocytopenia likely from chronic liver disease, resolved Morbid obesity status post gastric bypass Opiate dependence Suboxone DVT prophylaxis-mechanical due to extensive bruising, low plat Full code reason for continued hospitalization:worsening lfts Quality Stroke Does the patient have a stroke diagnosis?: No VTE Prior VTE?: No VTE Risk Level:: Medical - moderate - high VTE Device Contraindication: N/A - Device Ordered VTE Drug Contraindication: Treatment Not Tolerated
[2024-08-25 10:46] LABS: Bilirubin Direct 16.2 mg/dL (0.0-0.5)
[2024-08-25 11:19] LABS: Glucose, Whole Blood 119 mg/dL (60-115)
[2024-08-25] MEDS: cefTRIAXone sodium 1 GM VIAL IVPUSH (12:59)
--- NOTE | 2024-08-25 15:27 | MHC.CM.PN ---
CM MET W/PT PER RN REQUEST D/T DTR AND DCF ASKING FOR JIGNA, CM MET W/PT HOWEVER DCF/DTR HAD ALREADY LEFT ROOM. PT DECLINING TO SIGN JIGNA AND CURRENTLY ASKING FOR CM TO RETURN IN 1-2 DAYS, PT REPEATS SEVERAL TIMES, I DON'T TRUST THEM AND THAT THEY ALREADY TOOK HER 14YO DTR AWAY WHO NOW LIVES AT [facility]. PT TEARFUL AND CONT'S TO DECLINE TO SIGNING JIGNA.
[2024-08-25 15:39] LABS: Glucose, Whole Blood 138 mg/dL (60-115)
[2024-08-25] MEDS: Spironolactone 25 MG TABLET 12.5 MG PO (16:04)
[2024-08-25] MEDS: oxyCODONE HCl Immed Release 5 MG TABLET 2.5 MG PO (18:47)
[2024-08-25 20:02] LABS: Glucose, Whole Blood 92 mg/dL (60-115)
[2024-08-25] MEDS: oxyCODONE HCl Immed Release 5 MG TABLET PO (20:42)
[2024-08-26] VITALS (8 sets, daily range): BP systolic 98–134; BP diastolic 56–75; PULSE 68–88; RESP 14–20; TEMP 36.4–37.2; O2SAT 92–97
[2024-08-26 07:01] LABS: Hematocrit 29.1 % (37.0-47.0); Hemoglobin 9.5 g/dl (12.0-16.0); Mean Corpuscular HGB Conc 32.6 g/dl (31.0-35.0); Mean Corpuscular Hemoglobin 36.5 pg (27.0-33.0); Mean Platelet Volume 10.8 fL (9.4-12.3); Platelet Count 199 X10*3/uL (160-400); White Blood Count 11.4 X10*3/uL (4.8-10.8)
[2024-08-26 07:02] LABS: Glucose, Whole Blood 73 mg/dL (60-115)
[2024-08-26 07:03] LABS: Mean Corpuscular Volume 111.9 fL (80.0-98.0)
[2024-08-26 07:15] LABS: Alanine Aminotransferase 38 U/L (0-31); Alkaline Phosphatase 163 U/L (39-117); Anion Gap 14 (12-20); Aspartate Amino Transferase 86 U/L (5-31); Blood Urea Nitrogen 6 mg/dL (9-16); Calcium 8.4 mg/dL (8.4-10.2); Carbon Dioxide 28 mmol/L (22-29); Chloride 100 mmol/L (96-108); Estimated Glomerular Filt Rate > 60; Glucose Random 72 mg/dL (60-115); Potassium 3.8 mmol/L (3.3-5.1); Sodium 138 mmol/L (135-145); Total Protein 5.7 g/dL (6.5-8.0)
[2024-08-26 07:19] LABS: INTERNATIONAL NORM RATIO 1.6 (0.9-1.1); Prothrombin Time 18.6 SEC (10.9-12.4)
[2024-08-26 07:24] LABS: Bilirubin Total 25.7 mg/dL (0.0-1.0)
[2024-08-26] MEDS: Magnesium Oxide 400 MG TABLET PO ×2 (08:51→17:39)
[2024-08-26] MEDS: hydrOXYzine HCL 25 MG TABLET PO ×2 (08:51→17:39)
[2024-08-26] MEDS: Thiamine HCL 100 MG TABLET PO (08:52)
[2024-08-26] MEDS: Multivitamin TABLET 1 TAB PO (08:52)
[2024-08-26] MEDS: rifAXIMin 550 MG TABLET PO ×2 (08:52→21:57)
[2024-08-26] MEDS: Midodrine HCl 5 MG TABLET PO ×2 (08:52→12:54)
[2024-08-26] MEDS: Spironolactone 25 MG TABLET 12.5 MG PO ×2 (08:53→17:38)
[2024-08-26] MEDS: Lactulose 20 GM/30 ML SOLUTION 30 GM PO ×5 (08:53→21:58)
[2024-08-26] MEDS: Folic Acid 1 MG TABLET PO (08:53)
[2024-08-26] MEDS: Buprenorphine/Naloxone 4/1 mg FILM 1 FILM SUBLINGUAL (08:53)
[2024-08-26] MEDS: prednisoLONE sodium phosphate 15 MG/5 ML SOLUTION 40 MG PO (08:54)
--- NOTE | 2024-08-26 09:31 | HO.PM.IMPN ---
Subjective Subjective Date of Service: 08/26/24 Interval History: rue edema resolved Physical Exam Vital Signs: Vital Signs: Last Vital Signs Temp 98.1 F 08/26/24 07:10 Pulse 80 08/26/24 07:10 Resp 20 08/26/24 07:10 BP 98/56 L 08/26/24 07:10 Pulse Ox 94 08/26/24 07:10 O2 Del Method Room Air 08/26/24 07:10 BMI result Body Mass Index 43.3 General: Lethargic oriented times 3, jaundice, ill-appearing Resp: CTA bilateral, no accessory muscles used CVS: S1,S2,RRR GI: soft, non tender, non distended Neuro: motor grossly intact, alert, asterixis RUE swelling resolved Objective Data Active Medications Buprenorphine/Naloxone (Buprenorphine/Naloxone 4/1 Mg Film) 1 film SUBLINGUAL DAILY [facility] Last Admin: 08/26/24 08:53 Dose: 1 film Documented By: ADELINE Ceftriaxone Sodium (Ceftriaxone Sodium 1 Gm Vial) 1 gm IVPUSH Q24H [facility] Last Admin: 08/25/24 12:59 Dose: 1 gm Documented By: ANKIT Dextrose (Dextrose 50 % 25 Gm/50 Ml Syringe) 25 gm IVPUSH Q15M PRN PRN Reason: per Hypoglycemia Standing Ord. Last Admin: 08/25/24 07:17 Dose: 25 gm Documented By: ANKIT Folic Acid (Folic Acid 1 Mg Tablet) 1 mg PO DAILY [facility] Last Admin: 08/26/24 08:53 Dose: 1 mg Documented By: ADELINE Hydroxyzine HCl (Hydroxyzine Hcl 25 Mg Tablet) 25 mg PO Q6H PRN PRN Reason: Anxiety Last Admin: 08/26/24 08:51 Dose: 25 mg Documented By: ADELINE Lactulose (Lactulose 20 Gm/30 Ml Solution) 30 gm PO QID [facility] Last Admin: 08/26/24 08:53 Dose: 30 gm Documented By: ADELINE Magnesium Oxide (Magnesium Oxide 400 Mg Tablet) 400 mg PO BIDPC [facility] Last Admin: 08/26/24 08:51 Dose: 400 mg Documented By: ADELINE Midodrine (Midodrine Hcl 5 Mg Tablet) 5 mg PO TIDWM [facility] Last Admin: 08/26/24 08:52 Dose: 5 mg Documented By: ADELINE Multivitamins/Vitamin C (Multivitamin Tablet) 1 tab PO DAILY [facility] Last Admin: 08/26/24 08:52 Dose: 1 tab Documented By: ADELINE Oxycodone HCl (Oxycodone Hcl Immed Release 5 Mg Tablet) 2.5 mg PO Q6H PRN PRN Reason: Pain, Severe (Pain Scale 7-10) Last Admin: 08/25/24 18:47 Dose: 2.5 mg Documented By: ANKIT Pharmacy Consult (Consult Rx Etoh Phenob Im/Po) 1 each MISCELLANE ONCE PRN; Protocol PRN Reason: Consult order Prednisolone Sodium Phosphate (Prednisolone Sodium Phosphate 15 Mg/5 Ml Solution) 40 mg PO DAILY [facility] Last Admin: 08/26/24 08:54 Dose: 40 mg Documented By: ADELINE Rifaximin (Rifaximin 550 Mg Tablet) 550 mg PO BID [facility] Last Admin: 08/26/24 08:52 Dose: 550 mg Documented By: ADELINE Spironolactone (Spironolactone 25 Mg Tablet) 12.5 mg PO BID@0900,1800 [facility]; Protocol Last Admin: 08/26/24 08:53 Dose: 12.5 mg Documented By: ADELINE Thiamine HCl (Thiamine Hcl 100 Mg Tablet) 100 mg PO DAILY [facility] Last Admin: 08/26/24 08:52 Dose: 100 mg Documented By: ADELINE Labs 08/26/24 06:50 08/26/24 06:50 Labs: Laboratory Results - last 24 hr 08/25/24 08/25/24 08/25/24 05:57 11:12 15:35 MCV MCH MCHC RDW Plt Count MPV Absolute Nucleated RBC Nucleated RBC % (auto) PT INR Anion Gap Estim Creat Clear Calc TNP Estimated GFR POC Glucose 119 H 138 H Random Glucose Calcium Total Bilirubin Direct Bilirubin 16.2 H AST ALT Alkaline Phosphatase Total Protein Albumin 08/25/24 08/26/24 08/26/24 19:55 06:50 06:58 MCV 111.9 H MCH 36.5 H MCHC 32.6 RDW 27.0 H Plt Count 199 MPV 10.8 Absolute Nucleated RBC 0.000 Nucleated RBC % (auto) 0.0 PT 18.6 H INR 1.6 H Anion Gap 14 Estim Creat Clear Calc TNP Estimated GFR > 60 POC Glucose 92 73 Random Glucose 72 Calcium 8.4 Total Bilirubin 25.7 H Direct Bilirubin AST 86 H ALT 38 H Alkaline Phosphatase 163 H Total Protein 5.7 L Albumin 3.0 L Assessment and Plan (1) Hepatic encephalopathy: Status: Acute (2) Alcoholic hepatitis: Status: Acute (3) Hypomagnesemia: Status: Acute (4) Acute alcoholic hepatitis: Status: Acute Plan 53F PMH etoh dependence, morbid obesity s/p gastric bypass, etoh fatty liver, mood disorder, opiate dependence, was brought in by ambulance for weakness and falls Acute metabolic encephalopathy due to acute hepatic encephalopathy and acute alcoholic hepatitis Lactulose to 30 QID continue PRednosolone 40 mg daily on 08/19 Rifaximin tid s/p Albumin IV to support BP as needed , Midodrine tid Sprinolactone 12.5 bid SBP Prophylaxis with Ceftriaxone Poor prognosis, mental status is better negative hep serology GI following monitor LFTs, alcohol abstinence Addiction team following not candidate from transplant Alcohol withdrawal resolved finished PHenobarb protocol Folic acid, thiamine, multivitamin Acute hypokalemia K improved after IV and PO replacement and follow Acute hyponatremia, resolved Likely combination of poor solute intake/ beer potomania Fluid restrict, monitor Acute hypomagnesemia, replaced metabolic acidosis, likely d/t liver failure, resolved Acute on chronic anemia stable hemoglobin consider transfusion if drops below 7 elevated retic count and LDH, likely compensated hemolysis with low haptoglobin; Thrombocytopenia likely from chronic liver disease, resolved Morbid obesity status post gastric bypass Opiate dependence Suboxone DVT prophylaxis-mechanical due to extensive bruising, low plat Full code reason for continued hospitalization:worsening lfts, ongoing [facility] Quality Stroke Does the patient have a stroke diagnosis?: No VTE Prior VTE?: No VTE Risk Level:: Medical - moderate - high VTE Device Contraindication: N/A - Device Ordered VTE Drug Contraindication: Treatment Not Tolerated
[2024-08-26 10:49] LABS: Glucose, Whole Blood 135 mg/dL (60-115)
--- NOTE | 2024-08-26 12:30 | MHC.CM.PN ---
EMR reviewed and per MD round, pt is not medically cleared for discharge due to management of encephalopathy.
[2024-08-26] MEDS: oxyCODONE HCl Immed Release 5 MG TABLET 2.5 MG PO ×2 (12:54→21:57)
[2024-08-26] MEDS: cefTRIAXone sodium 1 GM VIAL IVPUSH (12:55)
[2024-08-26 15:26] LABS: Glucose, Whole Blood 132 mg/dL (60-115)
[2024-08-26 19:34] LABS: Glucose, Whole Blood 145 mg/dL (60-115)
[2024-08-27] VITALS (7 sets, daily range): BP systolic 107–130; BP diastolic 55–73; PULSE 57–82; RESP 16–18; TEMP 36.2–36.9; O2SAT 94–100
[2024-08-27] MEDS: Lactulose 20 GM/30 ML SOLUTION 30 GM PO ×4 (00:26→08:58)
[2024-08-27] MEDS: hydrOXYzine HCL 25 MG TABLET PO ×3 (00:29→22:46)
[2024-08-27] MEDS: oxyCODONE HCl Immed Release 5 MG TABLET 2.5 MG PO ×3 (03:36→22:45)
[2024-08-27 07:22] LABS: Hematocrit 28.4 % (37.0-47.0); Hemoglobin 9.3 g/dl (12.0-16.0); Mean Corpuscular HGB Conc 32.7 g/dl (31.0-35.0); Mean Corpuscular Hemoglobin 36.2 pg (27.0-33.0); Mean Platelet Volume 11.4 fL (9.4-12.3); Platelet Count 215 X10*3/uL (160-400); Red Blood Count 2.57 X10*6/uL (4.20-5.50); Red Cell Distribution Width 26.5 % (11.0-16.0)
[2024-08-27 07:25] LABS: Mean Corpuscular Volume 110.5 fL (80.0-98.0)
[2024-08-27 07:47] LABS: Ammonia 84 umol/L (13-55)
[2024-08-27 07:50] LABS: INTERNATIONAL NORM RATIO 1.8 (0.9-1.1); Prothrombin Time 20.3 SEC (10.9-12.4)
[2024-08-27 07:56] LABS: Glucose, Whole Blood 64 mg/dL (60-115)
[2024-08-27 07:58] LABS: Alanine Aminotransferase 43 U/L (0-31); Albumin Level 3.1 g/dL (3.5-5.0); Alkaline Phosphatase 156 U/L (39-117); Anion Gap 14 (12-20); Aspartate Amino Transferase 90 U/L (5-31); Bilirubin Total 26.1 mg/dL (0.0-1.0); Blood Urea Nitrogen 5 mg/dL (9-16); Calcium 8.6 mg/dL (8.4-10.2); Carbon Dioxide 27 mmol/L (22-29); Chloride 100 mmol/L (96-108); Estimated Glomerular Filt Rate > 60; Glucose Random 63 mg/dL (60-115); Potassium 3.5 mmol/L (3.3-5.1); Sodium 137 mmol/L (135-145); Total Protein 5.8 g/dL (6.5-8.0)
[2024-08-27] MEDS: rifAXIMin 550 MG TABLET PO ×2 (08:53→21:38)
[2024-08-27] MEDS: Thiamine HCL 100 MG TABLET PO (08:53)
[2024-08-27] MEDS: Folic Acid 1 MG TABLET PO (08:54)
[2024-08-27] MEDS: Spironolactone 25 MG TABLET 12.5 MG PO ×2 (08:54→16:27)
[2024-08-27] MEDS: prednisoLONE sodium phosphate 15 MG/5 ML SOLUTION 40 MG PO (08:54)
[2024-08-27] MEDS: Magnesium Oxide 400 MG TABLET PO ×2 (08:54→16:27)
[2024-08-27] MEDS: Midodrine HCl 5 MG TABLET PO ×3 (08:54→16:28)
[2024-08-27] MEDS: Multivitamin TABLET 1 TAB PO (08:54)
[2024-08-27] MEDS: Buprenorphine/Naloxone 4/1 mg FILM 1 FILM SUBLINGUAL (08:54)
--- NOTE | 2024-08-27 09:51 | HO.PM.IMPN ---
Subjective Subjective Date of Service: 08/27/24 Interval History: Was hallucinating yesterday Had 1 bowel movement Physical Exam Vital Signs: Vital Signs: Last Vital Signs Temp 97.6 F 08/27/24 08:00 Pulse 78 08/27/24 08:00 Resp 18 08/27/24 08:00 BP 111/57 L 08/27/24 08:00 Pulse Ox 96 08/27/24 08:00 O2 Del Method Nasal Cannula 08/27/24 08:00 BMI result Body Mass Index 43.3 General: Lethargic oriented times 3, jaundice, ill-appearing Resp: CTA bilateral, no accessory muscles used CVS: S1,S2,RRR GI: soft, non tender, non distended Neuro: motor grossly intact, alert, asterixis RUE swelling resolved Objective Data Active Medications Buprenorphine/Naloxone (Buprenorphine/Naloxone 4/1 Mg Film) 1 film SUBLINGUAL DAILY [facility] Last Admin: 08/27/24 08:54 Dose: 1 film Documented By: REMY Ceftriaxone Sodium (Ceftriaxone Sodium 1 Gm Vial) 1 gm IVPUSH Q24H [facility] Last Admin: 08/26/24 12:55 Dose: 1 gm Documented By: ADELINE Dextrose (Dextrose 50 % 25 Gm/50 Ml Syringe) 25 gm IVPUSH Q15M PRN PRN Reason: per Hypoglycemia Standing Ord. Last Admin: 08/25/24 07:17 Dose: 25 gm Documented By: ANKIT Folic Acid (Folic Acid 1 Mg Tablet) 1 mg PO DAILY [facility] Last Admin: 08/27/24 08:54 Dose: 1 mg Documented By: REMY Hydroxyzine HCl (Hydroxyzine Hcl 25 Mg Tablet) 25 mg PO Q6H PRN PRN Reason: Anxiety Last Admin: 08/27/24 08:54 Dose: 25 mg Documented By: REMY Lactulose (Lactulose 20 Gm/30 Ml Solution) 30 gm PO Q3H [facility] Last Admin: 08/27/24 08:58 Dose: 30 gm Documented By: REMY Magnesium Oxide (Magnesium Oxide 400 Mg Tablet) 400 mg PO BIDPC [facility] Last Admin: 08/27/24 08:54 Dose: 400 mg Documented By: REMY Midodrine (Midodrine Hcl 5 Mg Tablet) 5 mg PO TIDWM [facility]; Protocol Last Admin: 08/27/24 08:54 Dose: 5 mg Documented By: REMY Multivitamins/Vitamin C (Multivitamin Tablet) 1 tab PO DAILY [facility] Last Admin: 08/27/24 08:54 Dose: 1 tab Documented By: REMY Oxycodone HCl (Oxycodone Hcl Immed Release 5 Mg Tablet) 2.5 mg PO Q6H PRN PRN Reason: Pain, Severe (Pain Scale 7-10) Last Admin: 08/27/24 03:36 Dose: 2.5 mg Documented By: REESE Pharmacy Consult (Consult Rx Etoh Phenob Im/Po) 1 each MISCELLANE ONCE PRN; Protocol PRN Reason: Consult order Prednisolone Sodium Phosphate (Prednisolone Sodium Phosphate 15 Mg/5 Ml Solution) 40 mg PO DAILY [facility] Last Admin: 08/27/24 08:54 Dose: 40 mg Documented By: REMY Rifaximin (Rifaximin 550 Mg Tablet) 550 mg PO BID [facility] Last Admin: 08/27/24 08:53 Dose: 550 mg Documented By: REMY Spironolactone (Spironolactone 25 Mg Tablet) 12.5 mg PO BID@0900,1800 [facility]; Protocol Last Admin: 08/27/24 08:54 Dose: 12.5 mg Documented By: REMY Thiamine HCl (Thiamine Hcl 100 Mg Tablet) 100 mg PO DAILY [facility] Last Admin: 08/27/24 08:53 Dose: 100 mg Documented By: REMY Labs 08/27/24 06:56 08/27/24 06:56 Labs: Laboratory Results - last 24 hr 08/26/24 08/26/24 08/26/24 10:46 15:05 19:30 MCV MCH MCHC RDW Plt Count MPV Absolute Nucleated RBC Nucleated RBC % (auto) PT INR Anion Gap Estimated GFR POC Glucose 135 H 132 H 145 H Random Glucose Calcium Total Bilirubin AST ALT Alkaline Phosphatase Ammonia Total Protein Albumin 08/27/24 08/27/24 06:56 07:52 MCV 110.5 H MCH 36.2 H MCHC 32.7 RDW 26.5 H Plt Count 215 MPV 11.4 Absolute Nucleated RBC 0.000 Nucleated RBC % (auto) 0.0 PT 20.3 H INR 1.8 H Anion Gap 14 Estimated GFR > 60 POC Glucose 64 Random Glucose 63 Calcium 8.6 Total Bilirubin 26.1 H AST 90 H ALT 43 H Alkaline Phosphatase 156 H Ammonia 84 H Total Protein 5.8 L Albumin 3.1 L Assessment and Plan (1) Hepatic encephalopathy: Status: Acute (2) Alcoholic hepatitis: Status: Acute (3) Hypomagnesemia: Status: Acute (4) Acute alcoholic hepatitis: Status: Acute Plan 53F PMH etoh dependence, morbid obesity s/p gastric bypass, etoh fatty liver, mood disorder, opiate dependence, was brought in by ambulance for weakness and falls Acute metabolic encephalopathy due to acute hepatic encephalopathy and acute alcoholic hepatitis Lactulose increased to 30 mg q.4 hours continue PRednosolone 40 mg daily on 08/19 Rifaximin tid s/p Albumin IV to support BP as needed , Midodrine tid Sprinolactone 12.5 bid SBP Prophylaxis with Ceftriaxone Poor prognosis, mental status is better negative hep serology GI following monitor LFTs, alcohol abstinence Addiction team following not candidate from transplant Alcohol withdrawal resolved finished PHenobarb protocol Folic acid, thiamine, multivitamin Acute hypokalemia K improved after IV and PO replacement and follow Acute hyponatremia, resolved Likely combination of poor solute intake/ beer potomania Fluid restrict, monitor Acute hypomagnesemia, replaced metabolic acidosis, likely d/t liver failure, resolved Acute on chronic anemia stable hemoglobin consider transfusion if drops below 7 elevated retic count and LDH, likely compensated hemolysis with low haptoglobin; Thrombocytopenia likely from chronic liver disease, resolved Morbid obesity status post gastric bypass Opiate dependence Suboxone DVT prophylaxis-mechanical due to extensive bruising, low plat Full code reason for continued hospitalization:worsening lfts, ongoing [facility] Quality Stroke Does the patient have a stroke diagnosis?: No VTE Prior VTE?: No VTE Risk Level:: Medical - moderate - high VTE Device Contraindication: N/A - Device Ordered VTE Drug Contraindication: Treatment Not Tolerated
[2024-08-27 11:41] LABS: Glucose, Whole Blood 96 mg/dL (60-115)
[2024-08-27] MEDS: cefTRIAXone sodium 1 GM VIAL IVPUSH (12:15)
[2024-08-27 20:21] LABS: Glucose, Whole Blood 89 mg/dL (60-115)
[2024-08-28 03:39] VITALS: BP 92/52; PULSE 68; RESP 18; TEMP 36.6; O2SAT 96
[2024-08-28] MEDS: oxyCODONE HCl Immed Release 5 MG TABLET 2.5 MG PO ×3 (06:16→22:47)
[2024-08-28 07:13] VITALS: BP 110/63; PULSE 78; RESP 16; TEMP 36.7; O2SAT 95
[2024-08-28 07:19] LABS: Glucose, Whole Blood 54 mg/dL (60-115)
[2024-08-28] MEDS: rifAXIMin 550 MG TABLET PO (07:23)
[2024-08-28] MEDS: Midodrine HCl 5 MG TABLET PO ×3 (07:23→17:04)
[2024-08-28] MEDS: Buprenorphine/Naloxone 4/1 mg FILM 1 FILM SUBLINGUAL (07:24)
[2024-08-28] MEDS: Spironolactone 25 MG TABLET 12.5 MG PO ×2 (07:24→17:04)
[2024-08-28] MEDS: Magnesium Oxide 400 MG TABLET PO ×2 (07:24→17:04)
[2024-08-28] MEDS: Folic Acid 1 MG TABLET PO (07:24)
[2024-08-28] MEDS: Thiamine HCL 100 MG TABLET PO (07:24)
[2024-08-28] MEDS: Multivitamin TABLET 1 TAB PO (07:24)
[2024-08-28] MEDS: prednisoLONE sodium phosphate 15 MG/5 ML SOLUTION 40 MG PO (07:26)
[2024-08-28 07:40] LABS: Glucose, Whole Blood 63 mg/dL (60-115)
--- NOTE | 2024-08-28 09:05 | P.PNIM_ITS ---
Subjective Subjective Date of Service: 08/28/24 Interval History: had several bms yeserday, mental status better Physical Exam 2 Vital Signs: Vital Signs: Last Vital Signs Temp 98.1 F 08/28/24 07:13 Pulse 78 08/28/24 07:13 Resp 16 08/28/24 07:13 BP 110/63 08/28/24 07:13 Pulse Ox 95 08/28/24 07:13 O2 Del Method Room Air 08/28/24 07:13 BMI result Body Mass Index 43.3 General: Lethargic oriented times 3, jaundice, ill-appearing Resp: CTA bilateral, no accessory muscles used CVS: S1,S2,RRR GI: soft, non tender, non distended Neuro: motor grossly intact, alert, asterixis RUE swelling resolved Objective Data Active Medications Buprenorphine/Naloxone (Buprenorphine/Naloxone 4/1 Mg Film) 1 film SUBLINGUAL DAILY [facility] Last Admin: 08/28/24 07:24 Dose: 1 film Documented By: YOHANA Ceftriaxone Sodium (Ceftriaxone Sodium 1 Gm Vial) 1 gm IVPUSH Q24H [facility] Last Admin: 08/27/24 12:15 Dose: 1 gm Documented By: REMY Dextrose (Dextrose 50 % 25 Gm/50 Ml Syringe) 25 gm IVPUSH Q15M PRN PRN Reason: per Hypoglycemia Standing Ord. Last Admin: 08/25/24 07:17 Dose: 25 gm Documented By: ANKIT Folic Acid (Folic Acid 1 Mg Tablet) 1 mg PO DAILY [facility] Last Admin: 08/28/24 07:24 Dose: 1 mg Documented By: YOHANA Hydroxyzine HCl (Hydroxyzine Hcl 25 Mg Tablet) 25 mg PO Q6H PRN PRN Reason: Anxiety Last Admin: 08/27/24 22:46 Dose: 25 mg Documented By: FOGARTAnia Lactulose (Lactulose 20 Gm/30 Ml Solution) 30 gm PO Q8H [facility] Last Admin: 08/28/24 06:13 Dose: Not Given Documented By: MARY Non-Admin Reason: Patient Refused Magnesium Oxide (Magnesium Oxide 400 Mg Tablet) 400 mg PO BIDPC [facility] Last Admin: 08/28/24 07:24 Dose: 400 mg Documented By: YOHANA Midodrine (Midodrine Hcl 5 Mg Tablet) 5 mg PO TIDWM [facility]; Protocol Last Admin: 08/28/24 07:23 Dose: 5 mg Documented By: YOHANA Multivitamins/Vitamin C (Multivitamin Tablet) 1 tab PO DAILY [facility] Last Admin: 08/28/24 07:24 Dose: 1 tab Documented By: YOHANA Oxycodone HCl (Oxycodone Hcl Immed Release 5 Mg Tablet) 2.5 mg PO Q6H PRN PRN Reason: Pain, Severe (Pain Scale 7-10) Last Admin: 08/28/24 06:16 Dose: 2.5 mg Documented By: MARY Pharmacy Consult (Consult Rx Etoh Phenob Im/Po) 1 each MISCELLANE ONCE PRN; Protocol PRN Reason: Consult order Prednisolone Sodium Phosphate (Prednisolone Sodium Phosphate 15 Mg/5 Ml Solution) 40 mg PO DAILY [facility] Last Admin: 08/28/24 07:26 Dose: 40 mg Documented By: YOHANA Rifaximin (Rifaximin 550 Mg Tablet) 550 mg PO BID [facility] Last Admin: 08/28/24 07:23 Dose: 550 mg Documented By: YOHANA Spironolactone (Spironolactone 25 Mg Tablet) 12.5 mg PO BID@0900,1800 [facility]; Protocol Last Admin: 08/28/24 07:24 Dose: 12.5 mg Documented By: YOHANA Thiamine HCl (Thiamine Hcl 100 Mg Tablet) 100 mg PO DAILY [facility] Last Admin: 08/28/24 07:24 Dose: 100 mg Documented By: YOHANA Labs 08/27/24 06:56 08/27/24 06:56 Labs: Laboratory Results - last 24 hr 08/27/24 08/27/24 08/27/24 06:56 11:37 19:55 Estim Creat Clear Calc TNP POC Glucose 96 89 08/28/24 08/28/24 07:15 07:35 Estim Creat Clear Calc POC Glucose 54 L* 63 Assessment and Plan (1) Hepatic encephalopathy: Status: Acute (2) Alcoholic hepatitis: Status: Acute (3) Hypomagnesemia: Status: Acute (4) Acute alcoholic hepatitis: Status: Acute Plan 53F PMH etoh dependence, morbid obesity s/p gastric bypass, etoh fatty liver, mood disorder, opiate dependence, was brought in by ambulance for weakness and falls Acute metabolic encephalopathy due to acute hepatic encephalopathy and acute alcoholic hepatitis Lactulose decreased to 30 q8 continue Prednisolone 40 mg daily on 08/19 Rifaximin tid s/p Albumin IV to support BP as needed , Midodrine tid Sprinolactone 12.5 bid SBP Prophylaxis with Ceftriaxone Poor prognosis, mental status is better negative hep serology GI following monitor LFTs, alcohol abstinence Addiction team following not candidate from transplant Alcohol withdrawal resolved finished Phenobarb protocol Folic acid, thiamine, multivitamin Acute hypokalemia K improved after IV and PO replacement and follow Acute hyponatremia, resolved Likely combination of poor solute intake/ beer potomania Fluid restrict, monitor Acute hypomagnesemia, replaced metabolic acidosis, likely d/t liver failure, resolved Acute on chronic anemia stable hemoglobin consider transfusion if drops below 7 elevated retic count and LDH, likely compensated hemolysis with low haptoglobin; Thrombocytopenia likely from chronic liver disease, resolved Morbid obesity status post gastric bypass Opiate dependence Suboxone DVT prophylaxis-mechanical due to extensive bruising, low plat Full code reason for continued hospitalization:worsening lfts, ongoing enceph Quality Stroke Does the patient have a stroke diagnosis?: No VTE Prior VTE?: No VTE Risk Level:: Medical - moderate - high VTE Device Contraindication: N/A - Device Ordered VTE Drug Contraindication: Treatment Not Tolerated
[2024-08-28 11:35] VITALS: BP 114/72; PULSE 75; RESP 16; TEMP 37.1; O2SAT 95
[2024-08-28 11:43] LABS: Glucose, Whole Blood 123 mg/dL (60-115)
[2024-08-28] MEDS: cefTRIAXone sodium 1 GM VIAL IVPUSH (11:59)
[2024-08-28 15:31] LABS: Glucose, Whole Blood 129 mg/dL (60-115)
[2024-08-28 15:54] VITALS: BP 102/54; PULSE 68; RESP 16; TEMP 36.7; O2SAT 95
[2024-08-28 19:51] VITALS: BP 102/67; PULSE 67; RESP 16; TEMP 36.2; O2SAT 96
[2024-08-28 22:17] LABS: Glucose, Whole Blood 100 mg/dL (60-115)
[2024-08-28] MEDS: hydrOXYzine HCL 25 MG TABLET PO (22:47)
[2024-08-28] MEDS: Lactulose 20 GM/30 ML SOLUTION 30 GM PO (22:47)
[2024-08-28 23:36] VITALS: BP 118/75; PULSE 76; RESP 16; TEMP 36.1; O2SAT 96
[2024-08-29 03:32] VITALS: BP 101/63; PULSE 74; RESP 16; TEMP 36.4; O2SAT 97
[2024-08-29] MEDS: Lactulose 20 GM/30 ML SOLUTION 30 GM PO (06:08)
[2024-08-29 07:00] LABS: Alanine Aminotransferase 34 U/L (0-31); Albumin Level 2.7 g/dL (3.5-5.0); Alkaline Phosphatase 137 U/L (39-117); Anion Gap 12 (12-20); Aspartate Amino Transferase 74 U/L (5-31); Blood Urea Nitrogen 6 mg/dL (9-16); Carbon Dioxide 27 mmol/L (22-29); Chloride 99 mmol/L (96-108); Estimated Glomerular Filt Rate > 60; Glucose Random 68 mg/dL (60-115); INTERNATIONAL NORM RATIO 1.9 (0.9-1.1); Magnesium 2.2 mg/dL (1.6-2.6); Potassium 3.1 mmol/L (3.3-5.1); Prothrombin Time 21.4 SEC (10.9-12.4); Sodium 135 mmol/L (135-145); Total Protein 5.3 g/dL (6.5-8.0)
[2024-08-29 07:07] LABS: Hematocrit 26.2 % (37.0-47.0); Hemoglobin 8.8 g/dl (12.0-16.0); Mean Corpuscular HGB Conc 33.6 g/dl (31.0-35.0); Mean Corpuscular Hemoglobin 36.8 pg (27.0-33.0); Mean Corpuscular Volume 109.6 fL (80.0-98.0); Mean Platelet Volume 10.9 fL (9.4-12.3); Platelet Count 234 X10*3/uL (160-400); Red Blood Count 2.39 X10*6/uL (4.20-5.50); Red Cell Distribution Width 25.2 % (11.0-16.0); White Blood Count 11.5 X10*3/uL (4.8-10.8)
[2024-08-29 07:15] LABS: Bilirubin Direct 16.6 mg/dL (0.0-0.5); Bilirubin Total 24.2 mg/dL (0.0-1.0)
[2024-08-29 07:22] LABS: Glucose, Whole Blood 76 mg/dL (60-115)
[2024-08-29 07:26] VITALS: BP 105/64; PULSE 74; RESP 18; TEMP 37; O2SAT 95
[2024-08-29] MEDS: Potassium Chloride ER 20 MEQ TAB.ER.PRT 40 MEQ PO (08:55)
[2024-08-29] MEDS: Magnesium Oxide 400 MG TABLET PO ×2 (08:56→16:40)
[2024-08-29] MEDS: Multivitamin TABLET 1 TAB PO (08:56)
[2024-08-29] MEDS: Spironolactone 25 MG TABLET 12.5 MG PO ×2 (08:56→16:40)
[2024-08-29] MEDS: Thiamine HCL 100 MG TABLET PO (08:56)
[2024-08-29] MEDS: Midodrine HCl 5 MG TABLET PO ×2 (08:56→16:40)
[2024-08-29] MEDS: prednisoLONE sodium phosphate 15 MG/5 ML SOLUTION 40 MG PO (08:57)
[2024-08-29] MEDS: Buprenorphine/Naloxone 4/1 mg FILM 1 FILM SUBLINGUAL (08:57)
[2024-08-29] MEDS: Folic Acid 1 MG TABLET PO (08:57)
[2024-08-29] MEDS: oxyCODONE HCl Immed Release 5 MG TABLET 2.5 MG PO ×2 (08:57→16:42)
--- NOTE | 2024-08-29 09:44 | PM.EVENT ---
Event Note Date of Service: 08/29/24 Event Note: Briefly reviewed clinical course with Hospitalist Dr Lozada. 53 y.o F p/w etOH hepatitis on MDF 33 on admission per documentation. Corticosteroids started 08/18. Day 7 (08/25/24) Lille score is 0.965 - non-responsive to steroids and poor prognosis. Pt with prev hx of multiple ER visits with etOH intoxication and withdrawal as well as DUI i.e likely not a candidate for liver transplantation for severe etOH hep. However would recommend discussing formally with a dedicated liver transplant center such as [facility], [facility] etc. Time Spent With Patient Time: Total time managing care of this patient today ____ minutes.
--- NOTE | 2024-08-29 10:19 | HO.PM.IMPN ---
Subjective Subjective Date of Service: 08/29/24 Interval History: wants to go home Physical Exam Vital Signs: Vital Signs: Last Vital Signs Temp 98.6 F 08/29/24 07:26 Pulse 74 08/29/24 07:26 Resp 18 08/29/24 07:26 BP 105/64 08/29/24 07:26 Pulse Ox 95 08/29/24 07:26 O2 Del Method Room Air 08/29/24 07:26 BMI result Body Mass Index 43.3 General: Lethargic oriented times 3, jaundice, ill-appearing Resp: CTA bilateral, no accessory muscles used CVS: S1,S2,RRR GI: soft, non tender, non distended Neuro: motor grossly intact, alert, asterixis RUE swelling resolved Objective Data Active Medications Buprenorphine/Naloxone (Buprenorphine/Naloxone 4/1 Mg Film) 1 film SUBLINGUAL DAILY [facility] Last Admin: 08/29/24 08:57 Dose: 1 film Documented By: MARY Ceftriaxone Sodium (Ceftriaxone Sodium 1 Gm Vial) 1 gm IVPUSH Q24H [facility] Last Admin: 08/28/24 11:59 Dose: 1 gm Documented By: YOHANA Dextrose (Dextrose 50 % 25 Gm/50 Ml Syringe) 25 gm IVPUSH Q15M PRN PRN Reason: per Hypoglycemia Standing Ord. Last Admin: 08/25/24 07:17 Dose: 25 gm Documented By: ANKIT Folic Acid (Folic Acid 1 Mg Tablet) 1 mg PO DAILY [facility] Last Admin: 08/29/24 08:57 Dose: 1 mg Documented By: MARY Hydroxyzine HCl (Hydroxyzine Hcl 25 Mg Tablet) 25 mg PO Q6H PRN PRN Reason: Anxiety Last Admin: 08/28/24 22:47 Dose: 25 mg Documented By: MARIA EUGENIA Lactulose (Lactulose 20 Gm/30 Ml Solution) 30 gm PO Q8H [facility] Last Admin: 08/29/24 06:08 Dose: 30 gm Documented By: MARIA EUGENIA Lidocaine (Lidocaine 4 % Patch Adh..Patch) 1 patch TRANSDERMA DAILY [facility]; Protocol Last Admin: 08/29/24 10:15 Dose: Not Given Documented By: MARY Non-Admin Reason: Patient Refused Magnesium Oxide (Magnesium Oxide 400 Mg Tablet) 400 mg PO BIDPC [facility] Last Admin: 08/29/24 08:56 Dose: 400 mg Documented By: MARY Midodrine (Midodrine Hcl 5 Mg Tablet) 5 mg PO TIDWM [facility]; Protocol Last Admin: 08/29/24 08:56 Dose: 5 mg Documented By: MARY Multivitamins/Vitamin C (Multivitamin Tablet) 1 tab PO DAILY [facility] Last Admin: 08/29/24 08:56 Dose: 1 tab Documented By: MARY Oxycodone HCl (Oxycodone Hcl Immed Release 5 Mg Tablet) 2.5 mg PO Q6H PRN PRN Reason: Pain, Severe (Pain Scale 7-10) Last Admin: 08/29/24 08:57 Dose: 2.5 mg Documented By: MARY Pharmacy Consult (Consult Rx Etoh Phenob Im/Po) 1 each MISCELLANE ONCE PRN; Protocol PRN Reason: Consult order Spironolactone (Spironolactone 25 Mg Tablet) 12.5 mg PO BID@0900,1800 [facility]; Protocol Last Admin: 08/29/24 08:56 Dose: 12.5 mg Documented By: MARY Thiamine HCl (Thiamine Hcl 100 Mg Tablet) 100 mg PO DAILY [facility] Last Admin: 08/29/24 08:56 Dose: 100 mg Documented By: MARY Labs 08/29/24 06:08 08/29/24 06:08 Labs: Laboratory Results - last 24 hr 08/28/24 08/28/24 08/28/24 11:15 15:22 20:14 MCV MCH MCHC RDW Plt Count MPV Absolute Nucleated RBC Nucleated RBC % (auto) PT INR Anion Gap Estim Creat Clear Calc Estimated GFR POC Glucose 123 H 129 H 100 Random Glucose Calcium Magnesium Total Bilirubin Direct Bilirubin AST ALT Alkaline Phosphatase Total Protein Albumin 08/29/24 08/29/24 06:08 07:15 MCV 109.6 H MCH 36.8 H MCHC 33.6 RDW 25.2 H Plt Count 234 MPV 10.9 Absolute Nucleated RBC 0.000 Nucleated RBC % (auto) 0.0 PT 21.4 H INR 1.9 H Anion Gap 12 Estim Creat Clear Calc TNP Estimated GFR > 60 POC Glucose 76 Random Glucose 68 Calcium 8.0 L D Magnesium 2.2 Total Bilirubin 24.2 H Direct Bilirubin 16.6 H AST 74 H ALT 34 H Alkaline Phosphatase 137 H Total Protein 5.3 L Albumin 2.7 L Assessment and Plan (1) Hepatic encephalopathy: Status: Acute (2) Alcoholic hepatitis: Status: Acute (3) Hypomagnesemia: Status: Acute (4) Acute alcoholic hepatitis: Status: Acute Plan 53F PMH etoh dependence, morbid obesity s/p gastric bypass, etoh fatty liver, mood disorder, opiate dependence, was brought in by ambulance for weakness and falls Acute metabolic encephalopathy due to acute hepatic encephalopathy and acute alcoholic hepatitis Lactulose decreased to 30 q8 d/w GI not benefiting from steroids, will dc Rifaximin tid s/p Albumin IV to support BP as needed , Midodrine tid Sprinolactone 12.5 bid SBP Prophylaxis with Ceftriaxone completed Poor prognosis, mental status is better negative hep serology GI following monitor LFTs, alcohol abstinence Addiction team following unlikiely to be transplant candidate, will discuss with [facility] Alcohol withdrawal resolved finished Phenobarb protocol Folic acid, thiamine, multivitamin Acute hypokalemia K improved after IV and PO replacement and follow Acute hyponatremia, resolved Likely combination of poor solute intake/ beer potomania Fluid restrict, monitor Acute hypomagnesemia, replaced metabolic acidosis, likely d/t liver failure, resolved Acute on chronic anemia stable hemoglobin consider transfusion if drops below 7 elevated retic count and LDH, likely compensated hemolysis with low haptoglobin; Thrombocytopenia likely from chronic liver disease, resolved Morbid obesity status post gastric bypass Opiate dependence Suboxone DVT prophylaxis-mechanical due to extensive bruising, low plat Full code reason for continued hospitalization:liver transplant referal Quality Stroke Does the patient have a stroke diagnosis?: No VTE Prior VTE?: No VTE Risk Level:: Medical - moderate - high VTE Device Contraindication: N/A - Device Ordered VTE Drug Contraindication: Treatment Not Tolerated
[2024-08-29 11:28] VITALS: BP 122/68; PULSE 80; RESP 18; TEMP 36.7; O2SAT 93
[2024-08-29 11:34] LABS: Glucose, Whole Blood 116 mg/dL (60-115)
[2024-08-29] MEDS: cefTRIAXone sodium 1 GM VIAL IVPUSH (13:06)
[2024-08-29] MEDS: hydrOXYzine HCL 25 MG TABLET PO (13:13)
--- NOTE | 2024-08-29 14:59 | MHC.RECOVRN ---
Met with pt in 47- to follow up and provide support.? Pt awake, alert, easily engages in conversation, but becomes easily agitated.? Pt upset that her wants her to go to physical rehab prior to going home. Pt became tearful at times. Support provided. Pt denies any current needs for ACS team. Will continue to follow while inpt. Pt denies other concerns at this time.? T/w available as needed.
[2024-08-29 15:20] VITALS: BP 110/61; PULSE 75; RESP 18; TEMP 36.7; O2SAT 96
[2024-08-29 15:47] LABS: Glucose, Whole Blood 152 mg/dL (60-115)
[2024-08-29 19:59] VITALS: BP 110/61; PULSE 70; RESP 18; TEMP 37.6; O2SAT 99
[2024-08-29 20:00] LABS: Glucose, Whole Blood 119 mg/dL (60-115)
--- NOTE | 2024-08-29 23:54 | PC.NURSE ---
Geographic Information Systems Manager assumed care of this patient at 23:30.
[2024-08-30] VITALS (10 sets, daily range): BP systolic 99–142; BP diastolic 51–97; PULSE 69–81; RESP 14–20; TEMP 36.2–37.9; O2SAT 95–98
[2024-08-30] MEDS: oxyCODONE HCl Immed Release 5 MG TABLET 2.5 MG PO ×3 (03:31→22:06)
[2024-08-30 07:30] LABS: Mean Corpuscular HGB Conc 33.3 g/dl (31.0-35.0); Mean Corpuscular Hemoglobin 36.6 pg (27.0-33.0); Mean Corpuscular Volume 109.8 fL (80.0-98.0); Mean Platelet Volume 10.8 fL (9.4-12.3); Platelet Count 224 X10*3/uL (160-400); Red Blood Count 2.46 X10*6/uL (4.20-5.50); White Blood Count 11.2 X10*3/uL (4.8-10.8)
[2024-08-30 07:39] LABS: Glucose, Whole Blood 72 mg/dL (60-115)
[2024-08-30 07:52] LABS: INTERNATIONAL NORM RATIO 1.8 (0.9-1.1); Prothrombin Time 21.2 SEC (10.9-12.4)
[2024-08-30 07:54] LABS: Alanine Aminotransferase 33 U/L (0-31); Albumin Level 2.7 g/dL (3.5-5.0); Alkaline Phosphatase 130 U/L (39-117); Anion Gap 13 (12-20); Aspartate Amino Transferase 75 U/L (5-31); Blood Urea Nitrogen 6 mg/dL (9-16); Calcium 7.9 mg/dL (8.4-10.2); Carbon Dioxide 27 mmol/L (22-29); Chloride 99 mmol/L (96-108); Estimated Glomerular Filt Rate > 60; Glucose Random 58 mg/dL (60-115); Magnesium 2.1 mg/dL (1.6-2.6); Potassium 3.6 mmol/L (3.3-5.1); Sodium 135 mmol/L (135-145); Total Protein 5.3 g/dL (6.5-8.0)
[2024-08-30 08:03] LABS: Bilirubin Total 23.9 mg/dL (0.0-1.0)
[2024-08-30 08:17] LABS: Glucose, Whole Blood 86 mg/dL (60-115)
[2024-08-30] MEDS: Midodrine HCl 5 MG TABLET PO (08:45)
[2024-08-30] MEDS: Magnesium Oxide 400 MG TABLET PO ×2 (08:45→17:51)
[2024-08-30] MEDS: hydrOXYzine HCL 25 MG TABLET PO ×3 (08:45→22:06)
[2024-08-30] MEDS: Folic Acid 1 MG TABLET PO (08:45)
[2024-08-30] MEDS: Multivitamin TABLET 1 TAB PO (08:45)
[2024-08-30] MEDS: Thiamine HCL 100 MG TABLET PO (08:45)
[2024-08-30] MEDS: Spironolactone 25 MG TABLET 12.5 MG PO ×2 (08:46→17:51)
[2024-08-30] MEDS: Buprenorphine/Naloxone 4/1 mg FILM 1 FILM SUBLINGUAL (08:46)
[2024-08-30] MEDS: Lactulose 20 GM/30 ML SOLUTION 30 GM PO ×3 (08:46→22:06)
[2024-08-30 11:02] LABS: Glucose, Whole Blood 91 mg/dL (60-115)
--- NOTE | 2024-08-30 11:06 | HO.PM.IMPN ---
Subjective Subjective Date of Service: 08/30/24 Interval History: teary, frustrated, had 2bms Physical Exam Vital Signs: Vital Signs: Last Vital Signs Temp 99.1 F 08/30/24 11:03 Pulse 78 08/30/24 11:03 Resp 18 08/30/24 11:03 BP 111/74 08/30/24 11:03 Pulse Ox 95 08/30/24 11:03 O2 Del Method Room Air 08/30/24 11:03 BMI result Body Mass Index 43.3 General: alert oriented times 3, jaundice, ill-appearing Resp: CTA bilateral, no accessory muscles used CVS: S1,S2,RRR GI: soft, non tender, non distended Neuro: motor grossly intact, alert RUE swelling resolved Objective Data Active Medications Buprenorphine/Naloxone (Buprenorphine/Naloxone 4/1 Mg Film) 1 film SUBLINGUAL DAILY [facility] Last Admin: 08/30/24 08:46 Dose: 1 film Documented By: ADELINE Ceftriaxone Sodium (Ceftriaxone Sodium 1 Gm Vial) 1 gm IVPUSH Q24H [facility] Last Admin: 08/29/24 13:06 Dose: 1 gm Documented By: FOSTEKAj Dextrose (Dextrose 50 % 25 Gm/50 Ml Syringe) 25 gm IVPUSH Q15M PRN PRN Reason: per Hypoglycemia Standing Ord. Last Admin: 08/25/24 07:17 Dose: 25 gm Documented By: MARIAA-RIVLA Folic Acid (Folic Acid 1 Mg Tablet) 1 mg PO DAILY [facility] Last Admin: 08/30/24 08:45 Dose: 1 mg Documented By: ADELINE Hydroxyzine HCl (Hydroxyzine Hcl 25 Mg Tablet) 25 mg PO Q6H PRN PRN Reason: Anxiety Last Admin: 08/30/24 08:45 Dose: 25 mg Documented By: ADELINE Lactulose (Lactulose 20 Gm/30 Ml Solution) 30 gm PO Q8H [facility] Last Admin: 08/30/24 08:46 Dose: 30 gm Documented By: ADELINE Comments: refused for night RN, attempted to give again with success Lidocaine (Lidocaine 4 % Patch Adh..Patch) 1 patch TRANSDERMA DAILY [facility]; Protocol Last Admin: 08/30/24 08:48 Dose: Not Given Documented By: ADELINE Non-Admin Reason: Patient Refused Magnesium Oxide (Magnesium Oxide 400 Mg Tablet) 400 mg PO BIDPC [facility] Last Admin: 08/30/24 08:45 Dose: 400 mg Documented By: ADELINE Midodrine (Midodrine Hcl 5 Mg Tablet) 5 mg PO TIDWM [facility]; Protocol Last Admin: 08/30/24 08:45 Dose: 5 mg Documented By: ADELINE Multivitamins/Vitamin C (Multivitamin Tablet) 1 tab PO DAILY [facility] Last Admin: 08/30/24 08:45 Dose: 1 tab Documented By: ADELINE Oxycodone HCl (Oxycodone Hcl Immed Release 5 Mg Tablet) 2.5 mg PO Q6H PRN PRN Reason: Pain, Severe (Pain Scale 7-10) Last Admin: 08/30/24 03:31 Dose: 2.5 mg Documented By: LUPE Pharmacy Consult (Consult Rx Etoh Phenob Im/Po) 1 each MISCELLANE ONCE PRN; Protocol PRN Reason: Consult order Spironolactone (Spironolactone 25 Mg Tablet) 12.5 mg PO BID@0900,1800 [facility]; Protocol Last Admin: 08/30/24 08:46 Dose: 12.5 mg Documented By: ADELINE Thiamine HCl (Thiamine Hcl 100 Mg Tablet) 100 mg PO DAILY [facility] Last Admin: 08/30/24 08:45 Dose: 100 mg Documented By: ADELINE Labs 08/30/24 06:46 08/30/24 06:46 Labs: Laboratory Results - last 24 hr 08/29/24 08/29/24 08/29/24 11:30 15:23 19:38 MCV MCH MCHC RDW Plt Count MPV Absolute Nucleated RBC Nucleated RBC % (auto) PT INR Anion Gap Estim Creat Clear Calc Estimated GFR POC Glucose 116 H 152 H 119 H Random Glucose Calcium Magnesium Total Bilirubin Direct Bilirubin AST ALT Alkaline Phosphatase Total Protein Albumin 08/30/24 08/30/24 08/30/24 06:46 07:10 08:13 MCV 109.8 H MCH 36.6 H MCHC 33.3 RDW 25.0 H Plt Count 224 MPV 10.8 Absolute Nucleated RBC 0.000 Nucleated RBC % (auto) 0.0 PT 21.2 H INR 1.8 H Anion Gap 13 Estim Creat Clear Calc TNP Estimated GFR > 60 POC Glucose 72 86 Random Glucose 58 L* Calcium 7.9 L Magnesium 2.1 Total Bilirubin 23.9 H Direct Bilirubin 14.0 H AST 75 H ALT 33 H Alkaline Phosphatase 130 H Total Protein 5.3 L Albumin 2.7 L 08/30/24 10:55 MCV MCH MCHC RDW Plt Count MPV Absolute Nucleated RBC Nucleated RBC % (auto) PT INR Anion Gap Estim Creat Clear Calc Estimated GFR POC Glucose 91 Random Glucose Calcium Magnesium Total Bilirubin Direct Bilirubin AST ALT Alkaline Phosphatase Total Protein Albumin Assessment and Plan (1) Hepatic encephalopathy: Status: Acute (2) Alcoholic hepatitis: Status: Acute (3) Hypomagnesemia: Status: Acute (4) Acute alcoholic hepatitis: Status: Acute Plan 53F PMH etoh dependence, morbid obesity s/p gastric bypass, etoh fatty liver, mood disorder, opiate dependence, was brought in by ambulance for weakness and falls Acute metabolic encephalopathy due to acute hepatic encephalopathy and acute alcoholic hepatitis Lactulose 30 q8, Rifaximin tid, mental status much improved, continue goal 2-3BM/day d/w GI not benefiting from steroids, discontinued prednisolone s/p Albumin IV to support BP as needed , Midodrine tid Sprinolactone 12.5 bid SBP Prophylaxis with Ceftriaxone completed case discussed with [facility] transplant team, pateint not a candidate due to recent ETOH use despite history of counselling. 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
--- NOTE | 2024-08-30 13:47 | MHC.CM.PN ---
This CM met with pt to discuss discharge plan, she states she is willing to go to [facility]. [facility] offered pt a bed, pt has accepted, insurance auth now pending.
[2024-08-30 15:34] LABS: Glucose, Whole Blood 82 mg/dL (60-115)
[2024-08-30 21:06] LABS: Glucose, Whole Blood 71 mg/dL (60-115)
[2024-08-31] VITALS: BP 103/56; PULSE 78; RESP 16; TEMP 37.1; O2SAT 96
[2024-08-31 03:34] VITALS: BP 120/81; PULSE 85; RESP 16; TEMP 36.8; O2SAT 97
[2024-08-31 08:00] VITALS: BP 94/56; PULSE 74; RESP 18; TEMP 36.7; O2SAT 93
[2024-08-31] MEDS: Lactulose 20 GM/30 ML SOLUTION 30 GM PO ×2 (08:14→14:02)
[2024-08-31] MEDS: hydrOXYzine HCL 25 MG TABLET PO ×2 (08:15→14:02)
[2024-08-31] MEDS: Spironolactone 25 MG TABLET 12.5 MG PO (08:15)
[2024-08-31] MEDS: Multivitamin TABLET 1 TAB PO (08:15)
[2024-08-31] MEDS: Buprenorphine/Naloxone 4/1 mg FILM 1 FILM SUBLINGUAL (08:15)
[2024-08-31] MEDS: Folic Acid 1 MG TABLET PO (08:15)
[2024-08-31] MEDS: Midodrine HCl 5 MG TABLET PO ×2 (08:15→12:20)
[2024-08-31] MEDS: Magnesium Oxide 400 MG TABLET PO (08:15)
[2024-08-31] MEDS: Thiamine HCL 100 MG TABLET PO (08:15)
--- NOTE | 2024-08-31 09:45 | PM.DS ---
DS: Providers Provider Date of Service: 08/31/24 Date of admission: 08/16/24 08:39 Date of discharge: 08/31/24 Primary care physician: Baljeet Perry MD Consults: 08/16/24 08:50 Consult to Gastroenterology Routine Consulting Provider: Malena Jefferson Reason for consultation: etoh heptatitis 08/16/24 08:51 Addiction Medicine Provider Routine Consulting Provider: Addiction Covering Reason for consultation: etoh, opiate 08/16/24 14:59 Addiction Medicine Provider Routine Consulting Provider: Addiction Covering Reason for consultation: daily alcohol use Consult to Wound Care Routine Reason for consultation: multiple bruises DS: Diagnosis Discharge Diagnosis (1) Hepatic encephalopathy: Status: Acute (2) Alcoholic hepatitis: Status: Acute (3) Hypomagnesemia: Status: Acute (4) Acute alcoholic hepatitis: Status: Acute DS: Summary Hospital Course Hospital Course: admission hpi from 08/16/24 Chief Complaint: weakness, falls 53F PMH etoh dependence, morbid obesity s/p gastric bypass, etoh fatty liver, mood disorder, opiate dependence, was brought in by ambulance for weakness and falls. Patient reports that her has been called ambulance because he could not deal with her anymore. She reports that she has been feeling weak unable to ambulate unable to transfer to wheelchair and has been falling. Most recently was found on the floor covered in feces. Continues to drink beer and vodka daily. Noted to have worsening jaundice. Patient also reports increasing edema. Denies chest pain, shortness breath, nausea vomiting, abdominal pain, fever chills. In ED, noted to have bilirubin of 11. hospital course: The patient was admitted and treated for acute metabolic encephalopathy secondary to acute hepatic encephalopathy and acute alcoholic hepatitis with hyperbilirubinemia. She has been managed with lactulose 30 gm every 8 hours (dose adjusted to achieve 2-3 bowel movements daily) and rifaximin 500 mg three times daily. Her mental status has significantly improved, and she is currently alert and oriented to person, place, and time. Gastroenterology consultation determined no benefit from steroids, so prednisone was discontinued. The patient received IV albumin as needed to support blood pressure and will continue midodrine three times daily. Spironolactone 12.5 mg twice daily was initiated for ongoing medical management. She completed spontaneous bacterial peritonitis (SBP) prophylaxis with ceftriaxone. The case was discussed with the [facility] transplant team, and deemed the patient ineligible for liver transplantation due to recent alcohol use, despite prior counseling. Liver function tests (LFTs) have plateaued, with total bilirubin peaking at 24-26 mg/dL and currently at 23 mg/dL. The patient is stable for discharge with outpatient follow-up with gastroenterology. Strict alcohol abstinence was strongly advised, and a plan for short-term rehabilitation (STR) has been arranged. Alcohol withdrawal resolved finished Phenobarb protocol Folic acid, thiamine, multivitamin Acute hypokalemia K improved after IV and PO replacement and follow continue Aldactone Acute hyponatremia, resolved Likely combination of poor solute intake/ beer potomania Fluid restrict, monitor Acute hypomagnesemia replaced, recent mag 2.1 metabolic acidosis, likely d/t liver failure, resolved Acute on chronic anemia hemolytic due to etoh hepatitis (Zieve syndrome) stable hemoglobin Thrombocytopenia likely from chronic liver disease, resolved Morbid obesity status post gastric bypass Opiate dependence Suboxone To short term rehab for less than 30 days Time Attestation Discharge Coordination Time (in mins): 45 Quality: Safe Use of Opioids Does Pt have an Active Cancer Diagnosis on the Problem List?: No Quality: Stroke Does the patient have a stroke diagnosis?: No Physical Exam Vital Signs: Vital Signs: Last Vital Signs Temp 98.1 F 08/31/24 08:00 Pulse 74 08/31/24 08:00 Resp 18 08/31/24 08:00 BP 94/56 L 08/31/24 08:00 Pulse Ox 93 08/31/24 08:00 O2 Del Method Room Air 08/31/24 08:00 BMI result Body Mass Index 43.3 DS: Data Data Completed and Pending Completed studies during hospitalization [Text1]: Procedures Detoxification Services for Substance Abuse Treatment (05/10/24) Drainage of Right Upper Arm Subcutaneous Tissue and Fascia, Open Approach (05/13/23) Labs on day of discharge: Laboratory Results - last 24 hr 08/30/24 08/30/24 08/30/24 10:55 15:30 21:02 POC Glucose 91 82 71 Discharge Plan Discharge Anticipated Discharge Date/Time: 08/31/24 10:26 Patient Disposition: Xfer SNF Discharge Diagnosis: Acute alcoholic liver failure, heaptic encephalopathy Referrals: [facility] [Provider Group] - 1 Week (Please call office to schedule follow up) [facility] [Outside] - 1 Week Davis Perry,Baljeet, MD [Primary Care Provider] - 1 Week Discharge Medications: New buprenorphine-naloxone 4-1 mg Film 1 film sublingual DAILY Qty: 30 0RF midodrine 5 mg Tablet 5 mg PO TIDWM Qty: 90 0RF spironolactone 25 mg Tablet 12.5 mg PO BID@0900,1800 Qty: 60 0RF Protocol: Hold for SBP< HOLD for SBP < : 90 lactulose 10 gram/15 mL Solution 30 g PO Q8H Qty: 1200 0RF lidocaine [Lidocaine Pain Relief] 4 % Adhesive Patch,Medicated 1 patch transdermal DAILY Qty: 5 0RF Protocol: Apply to: Apply to: lower back oxycodone 5 mg Tablet 2.5 mg PO Q6H PRN (Reason: Pain, Severe (Pain Scale 7-10)) Qty: 20 0RF Rx Instructions: Partial Fill upon patient request. Continued hydroxyzine HCl 25 mg Tablet 25 mg PO Q6H PRN (Reason: Anxiety) Qty: 56 0RF multivitamin Tablet 1 tab PO DAILY thiamine HCl (vitamin B1) 100 mg capsule 100 mg PO DAILY folic acid 1 mg tablet 1 mg PO DAILY Changed magnesium oxide 400 mg magnesium Tablet 400 mg PO BID Qty: 60 0RF Discontinued buprenorphine-naloxone [Suboxone] 8-2 mg film 2 film buccal DAILY 14 Days Qty: 28 0RF Rx Instructions: place 1 film on inside of (each) cheek gabapentin 100 mg capsule 300 mg PO BID Discharge Orders: Discharge Order (Routine); Ordered 08/31/24 Ordered By: Sai Kang Diet: Advance to usual diet Activity on Discharge: As tolerated Stand Alone Forms: Patient Portal Discharge page Print Language: Lithuanian Care Plan Goals: Achieve sustained alcohol abstinence, stabilize liver function, and prevent recurrence of hepatic encephalopathy through adherence to outpatient gastroenterology follow-up, strict medication compliance (lactulose, rifaximin, spironolactone, midodrine), and participation in short-term rehabilitation, while monitoring for complications. Health Concerns: alcoholic lliver disease, alcoholic hepatitis, metabolic encephalopathy, electrolytes abnormlities, Plan of Treatment: To short term rehab for less than 30 day, avoid alcohol, monitor LFTS, outpatient GI follow up Assessment: see above
--- NOTE | 2024-08-31 10:31 | MHC.CM.PN ---
Pt is medically cleared for discharge, and insurance auth obtained for pt to go to STR at [facility] today via BLS, pt is aware and in agreement with discharge plan.
[2024-08-31 12:00] VITALS: BP 101/51; PULSE 72; RESP 18; TEMP 37.1; O2SAT 92
[2024-08-31 12:20] VITALS: BP 101/51
[2024-08-31] MEDS: oxyCODONE HCl Immed Release 5 MG TABLET 2.5 MG PO (12:22)
[2024-08-31 12:27] LABS: Glucose, Whole Blood 66 mg/dL (60-115)
[2024-08-31 12:36] LABS: Glucose, Whole Blood 82 mg/dL (60-115)
== END 2024-08-31 14:45 | disposition skilled nursing facility (03) | DRG 280 ==
LOC: HO.ED 07:39 → HO.EDOVER 08:42 → HO.IMC 11:10
PROVIDERS: Student in an Organized Health Care Education/Training Program; Admitting Provider Internal Medicine; Emergency Provider Emergency Medicine; PCP Internal Medicine; Visit Provider Internal Medicine
DX: K70.10 Alcoholic hepatitis without ascites (principal); K70.0 Alcoholic fatty liver; G93.41 Metabolic encephalopathy; G72.1 Alcoholic myopathy; K72.90 Hepatic failure, unspecified without coma; E44.1 Mild protein-calorie malnutrition; I95.9 Hypotension, unspecified; F05 Delirium due to known physiological condition; D69.59 Other secondary thrombocytopenia; E87.1 Hypo-osmolality and hyponatremia; D63.8 Anemia in other chronic diseases classified elsewhere; F10.229 Alcohol dependence with intoxication, unspecified; F19.10 Other psychoactive substance abuse, uncomplicated; F10.239 Alcohol dependence with withdrawal, unspecified; E87.6 Hypokalemia; Y90.8 Blood alcohol level of 240 mg/100 ml or more; F11.20 Opioid dependence, uncomplicated; E83.42 Hypomagnesemia; Z68.41 Body mass index [BMI] 40.0-44.9, adult; Z71.3 Dietary counseling and surveillance; Z98.84 Bariatric surgery status; Z87.891 Personal history of nicotine dependence; Z79.899 Other long term (current) drug therapy
CPT/HCPCS: 36415; 71045; 80048; 80053; 80076; 80143; 80307; 82140; 82550; 82947; 83010; 83615; 83690; 83735; 84443; 84484; 85007; 85018; 85025; 85027; 85045; 85610; 85652; 86038; 86704; 86706; 86803; 86850; 86900; 86901; 86923; 87340; 93005; 93971; 97110; 97162; 97530; 99285; J0696; J1171; J1938; J2560; J3411; J3430; J3475; J3480; J7120; P9016; P9047

== ENCOUNTER → 2024-08-16 07:16 | Outpatient (BNV) | payer BC, MEDICAID, SELFPAY | PROVIDERS: Admitting Provider Internal Medicine; Emergency Provider Emergency Medicine; PCP Internal Medicine; Visit Provider Internal Medicine Cardiovascular Disease | DX: R94.31 Abnormal electrocardiogram [ECG] [EKG] (principal); W19.XXXA Unspecified fall, initial encounter | CPT/HCPCS: 93010 ==

== ENCOUNTER 2024-08-16 08:39 | Outpatient (BNV) | payer BC, MEDICAID, SELFPAY | END 2024-08-18 11:38 | PROVIDERS: Admitting Provider Internal Medicine; Emergency Provider Emergency Medicine; PCP Internal Medicine; Visit Provider Radiology Diagnostic Radiology | DX: R05.9 Cough, unspecified (principal) | CPT/HCPCS: 71045 ==

== ENCOUNTER 2024-08-16 08:39 | Outpatient (BNV) | payer BC, MEDICAID, SELFPAY | END 2024-08-25 17:57 | PROVIDERS: Admitting Provider Internal Medicine; Emergency Provider Emergency Medicine; PCP Internal Medicine; Visit Provider Radiology Diagnostic Radiology | DX: R22.31 Localized swelling, mass and lump, right upper limb (principal) | CPT/HCPCS: 93971 ==

== ENCOUNTER → 2024-08-16 08:39 | Outpatient (BNV) | payer BC, MEDICAID, SELFPAY | PROVIDERS: Admitting Provider Internal Medicine; Emergency Provider Emergency Medicine; PCP Internal Medicine; Visit Provider Nurse Practitioner Psychiatric/Mental Health | DX: F10.20 Alcohol dependence, uncomplicated (principal) | CPT/HCPCS: 99222 ==

== ENCOUNTER → 2024-08-16 08:39 | Outpatient (BNV) | payer BC, MEDICAID, SELFPAY | PROVIDERS: Admitting Provider Internal Medicine; Emergency Provider Emergency Medicine; PCP Internal Medicine; Visit Provider Internal Medicine | DX: K76.82 Hepatic encephalopathy (principal) | CPT/HCPCS: 99223; 99232 ==

== ENCOUNTER → 2024-08-16 08:39 | Outpatient (BNV) | payer BC, MEDICAID, SELFPAY | PROVIDERS: Admitting Provider Internal Medicine; Emergency Provider Emergency Medicine; PCP Internal Medicine; Visit Provider Internal Medicine Gastroenterology | DX: K70.10 Alcoholic hepatitis without ascites (principal) | CPT/HCPCS: 99223 ==

== ENCOUNTER 2024-09-26 14:38 | Inpatient (IN) | payer BC, MEDICAID, SELFPAY ==
--- NOTE | ~2024-09-26 | CT_ITS ---
CLINICAL HISTORY: painless jaundice CT abdomen and pelvis with contrast Comparison: US - US ABDOMEN LIMITED - 04/06/24 14:49 EST Findings: No consolidation or effusion. The liver is enlarged and heterogeneous. Small cyst within the left lobe of the liver. Moderate ascites. Normal spleen size. Splenorenal varices are present. There is pancreatic volume loss. Unremarkable kidneys and adrenal glands. Prior cholecystectomy. Prior gastric bypass. No bowel edema or dilatation. Large air-fluid level within the urinary bladder. Unremarkable uterus and bilateral adnexa. Normal appendix. No acute fracture. IMPRESSION: 1. Enlarged heterogeneous liver. Recommend correlation with laboratory data. Consider further evaluation with MRI. 2. Moderate ascites. 3. There is a large amount of air within the urinary bladder. This could be secondary to recent catheterization or cystitis. This document has been electronically signed by: Alexandra Felix MD on 09/26/2024 18:27:41
--- NOTE | ~2024-09-26 | XR_ITS ---
EXAMINATION: XR CHEST CLINICAL INFORMATION: short of breath COMPARISON: August 18, 2024. TECHNIQUE: Frontal view of the chest was obtained. FINDINGS: Pulmonary reticular pattern. Mild prominence of the interstitial lung markings in the perihilar region. Poor inspiration. No gross consolidation pleural effusion or pneumothorax. Cardiomediastinal silhouette size is normal. Multilevel thoracic spondylosis. Degenerative changes in the shoulders. Patient's large body habitus/obesity. XR/XR chest 1V IMPRESSION: Concerning mild interstitial edema in the correct clinical settings. Electronically signed by: Colin Drummond MD 09/26/2024 03:21 PM EDT
--- NOTE | ~2024-09-26 | MR_ITS ---
EXAMINATION: MR ABDOMEN WITHOUT THEN WITH IV CONTRAST HISTORY: liver protocol COMPARISON: Correlation is made with a CT of the abdomen with contrast dated 09/26/2024. TECHNIQUE: Axial in and out of phase T1-weighted gradient echo, axial diffusion weighted, and axial and coronal HASTE T2 with fat saturation images were obtained through the abdomen. Subsequently, fat suppressed axial and coronal T1-weighted images were obtained after the intravenous administration of 10 mL Gadavist. FINDINGS: The examination is limited by patient motion. The liver demonstrates a mildly nodular contour, compatible with cirrhosis. There is hypertrophy of the left and caudate lobes. There is a recannulized paraumbilical vein. There is a 1.9 cm cyst in the left lobe adjacent to the gallbladder fossa. No enhancing liver mass is identified. The hepatic and portal veins are patent. The patient is status post cholecystectomy. There is mild prominence of the common bile duct, likely related to prior cholecystectomy. The spleen is enlarged. Multiple varices are noted adjacent to the spleen and left kidney. There is poor enhancement of the pancreas which may be due to technical issues related to the contrast injection (contrast was hand injected after a power injector failure). The adrenals and kidneys are unremarkable. There is a moderate amount of upper abdominal ascites. There is anasarca. There are prominent periportal lymph nodes measuring up to 2.3 cm.. MR/MR abdomen wo/w con IMPRESSION: Cirrhosis of the liver with evidence of portal hypertension as described. Moderate amount of upper abdominal ascites. No liver mass is identified. Electronically signed by: Dwaine Mahmood MD 09/28/2024 03:49 PM EDT
--- NOTE | ~2024-09-26 | US_ITS ---
EXAMINATION: US GUIDED PARACENTESIS CLINICAL INFORMATION: Ultrasound guided diagnostic paracentesis History: Ascites. Risks and benefits and possible complications were discussed with the patient and consent form was signed. A safe pocket of ascitic fluid was identified using ultrasound guidance, and the overlying skin was marked. The abdomen prepped and draped in sterile fashion. 1% lidocaine was used as a local anesthetic. Using ultrasound guidance, a 5 fr catheter was placed into the ascitic pocket. The patient was having great difficulty staying still as she has altered mental status and redirection was attempted without success. We were able to aspirate approximately 60 cc of yellow fluid where it was then decided to terminate the procedure. The catheter was then removed. A few field representative images from before and after the examination were obtained. The procedure was performed by Yong Madera NP and supervised by Yifan Montano MD. US/US paracentesis abd w/image Impression: Ultrasound-guided diagnostic paracentesis as described above. No immediate complications. Electronically signed by: Yifan Montano MD 09/29/2024 05:45 PM EDT
--- NOTE | ~2024-09-26 | CT_ITS ---
CLINICAL HISTORY: altered CT head without contrast Comparison: None provided Findings: No intra-axial mass, midline shift, hydrocephalus, or acute hemorrhage. Involutional change brain parenchyma, advanced for age. Mild white matter disease. There is no sinus or mastoid fluid. The orbits are unremarkable. There is no acute fracture. IMPRESSION: 1. No acute intracranial findings. This document has been electronically signed by: Alexandra Felix MD on 09/26/2024 18:27:14
[2024-09-26 14:52] VITALS: BP 113/87; BP 160/80; PULSE 80; PULSE 86; RESP 18; TEMP 36.6; O2SAT 97; O2SAT 98; BMI 37.9
--- NOTE | 2024-09-26 15:01 | ED.GENADULT ---
HPI - General Adult General Chief complaint: General Medical Stated complaint: ABD PAIN Time Seen by Provider: 09/26/24 15:01 Source: patient and EMS Mode of arrival: EMS Limitations: no limitations History of Present Illness ED Provider: SUSY RIVAS PA-C HPI narrative: 53 year old female with pmhx significant for hypertension, ETOH abuse in remission, ETOH hepatitis, thrombocytopenia, Wernicke's encephalopathy, opioid use disorder on Suboxone, presents to the ED today via EMS from home for evaluation of increased confusion and yellowing of her skin. Per EMS, patient's visiting nurse noted patient to look very yellow and was reportedly slow to respond to questions. On arrival in ED, she has no significant concerns. Reports yellowing of her skin x1 month. Last consumed ETOH 7 weeks ago. Denies any illicit substance use. States she takes Suboxone daily, last dose today. Denies fever, chills, abdominal pain, nausea or vomiting, urinary symptoms, diarrhea. She is unable to tell me the last time she had a bowel movement. Related Data Home Medications ?Medication ?Instructions ?Recorded ?Confirmed folic acid 1 mg tablet 1 mg PO DAILY 06/02/24 09/26/24 thiamine HCl (vitamin B1) 100 mg 100 mg PO DAILY 06/02/24 09/26/24 capsule multivitamin 1 tab PO DAILY 08/16/24 09/26/24 buprenorphine 8 mg-naloxone 2 mg 1 film sublingual DAILY 09/26/24 09/26/24 sublingual film gabapentin 100 mg capsule 100 mg PO BID 09/26/24 09/26/24 magnesium oxide 400 mg PO DAILY 09/26/24 09/26/24 rifaximin 550 mg tablet (Xifaxan) 550 mg PO BID 09/26/24 09/26/24 Previous Rx's ?Medication ?Instructions ?Recorded hydroxyzine HCl 25 mg tablet 25 mg PO Q6H PRN Anxiety #56 tabs 05/17/24 Allergies Allergy/AdvReac Type Severity Reaction Status Date / Time No Known Allergies Allergy Verified 09/26/24 14:54 Review of Systems Review of Systems: Yes Unobtainable due to mental status PMFSH Past Medical History Attestation statement: The following information was validated with the patient. Source: old records reviewed and nursing notes reviewed Medical History Alcoholic hepatitis Alcoholism Depression with anxiety Alcohol use disorder, severe, dependence Alcohol withdrawal hallucinosis Falls frequently Pedal edema Cellulitis Alcohol intoxication Korsakoff syndrome Thrombocytopenia Alcohol withdrawal syndrome Abscess of axilla, right Rash Encounter for monitoring Suboxone maintenance therapy Hypertension Opioid use disorder Alcohol abuse Surgical History Gastric bypass status for obesity History of total knee arthroplasty History of gastric surgery Family History Family History Father Lung cancer Social History Social History Household Members: Spouse Household Members Other:: 2 Housing: House Do you presently have visiting nurse or other home services: Yes Unable to assess alcohol history related to: Unknown Alcohol intake: former Comment: refuses alarm Patient Tobacco Use Status: Former Tobacco user Tobacco use type: Cigarette Years Smoked: 2 Smoked in Last 30 Days: No Second Hand Smoke Exposure: No Use of substances other than those prescribed or required for medical reasons: No Currently Displaying Signs/Symptoms of Drug Intoxication Withdrawal: No Have you been hit, kicked, punched, or otherwise hurt by someone within the past year? If so, by whom?: No Do you feel safe in your current relationship?: Yes Is there a partner from a previous relationship who is making you feel unsafe now?: No Are you made to feel afraid or neglected: No Advance Directives: Yes Advance Directives on File: Yes Advance Directives Date on File: 09/01/24 Do you have a plan to hurt others: No Plan Recently lost weight without trying: No Nutrition Risks: No Nutritional Risk Patient : No : No Poor oral hygiene: No service: No Current occupational status: employed Physical Exam ED Vital Signs: Vital Signs - 24 hr 09/26/24 18:08 Temperature 98.1 F Pulse Rate 72 Respiratory Rate 12 Blood Pressure 109/60 Pulse Oximetry 97 Oxygen Delivery Method Room Air BMI result Body Mass Index 37.9 Vital signs stable, afebrile General: Very jaundiced, restless Skin: Warm, dry, intact. No rashes or lesions. Head: Normocephalic, atraumatic. EENT: Hearing is intact b/l. Conjunctiva clear. Scleral icterus. Pupils constricted bilaterally. EOM intact. Moist mucous membranes.? Neck: Supple without LAD Cardiac: Chest wall symmetric. RRR Lungs: Normal respiratory effort without accessory muscle use. Lung sounds diminished, no adventitious breath sounds. Abdomen: obese, soft, non-tender, non-distended. No rebound tenderness or guarding. Positive BS x4. Back: No midline spinous or paraspinal tenderness. No step off deformity. Ext: Nonpitting edema to lower extremities Neuro: AOx3 however slow to respond to questions. Positive asterixis. No tongue fasciculations. Course Course Course Narrative: 1899 -- CBC showing leukocytosis to 12.8 with left shift. Macrocytic anemia, H and H stable when compared to priors. Above transfusion threshold. Chemistry without acute electrolyte abnormality requiring intervention. Renal function around baseline. Liver function around baseline. BNP elevated to 313. Ammonia elevated to 102 -concern for acute hepatic encephalopathy. Lactulose ordered. Thiamine pending. > UA, UDS, CT head, CT abdomen/pelvis pending > patient stable at the end of my shift. Sign-out given to Armen WOOTEN pending above with anticipated admission to medicine. Medications Administered Generic Name Dose Route Start Last Admin Trade Name Jimena PRN Reason Stop Dose Admin Buprenorphine/Naloxone 1 film 09/27/24 13:30 09/27/24 15:29 Buprenorphine/Naloxone 8/2 Mg Film SUBLINGUAL 1 film DAILY LOURDES Administration Enoxaparin Sodium 40 mg 09/26/24 23:00 09/26/24 23:49 Enoxaparin Sodium 40 Mg/0.4 Ml Syringe SUBCUT Not Given On Hold: 09/26/24 23:35 Q24H LOURDES Folic Acid 1 mg 09/27/24 13:30 09/27/24 15:29 Folic Acid 1 Mg Tablet PO 1 mg DAILY LOURDES Administration Lactulose 30 gm 09/26/24 23:00 09/27/24 15:30 Lactulose 20 Gm/30 Ml Solution PO 30 gm TID LOURDES Administration Magnesium Oxide 400 mg 09/27/24 13:30 09/27/24 15:29 Magnesium Oxide 400 Mg Tablet PO 400 mg DAILY LOURDES Administration Rifaximin 550 mg 09/27/24 09:00 09/27/24 09:13 Rifaximin 550 Mg Tablet PO 550 mg BID LOURDES Administration Sodium Chloride 3 ml 09/27/24 00:00 09/27/24 09:12 0.9 % Sodium Chloride Flush 3 Ml Syringe IVFLUSH 3 ml QSHIFT LOURDES Administration Discontinued Medications Generic Name Dose Route Start Last Admin Trade Name Jimena PRN Reason Stop Dose Admin Ceftriaxone Sodium 1 gm 09/26/24 19:18 09/26/24 19:30 Ceftriaxone Sodium 1 Gm Vial IVPUSH 09/26/24 19:19 1 gm ONCE ONE Administration Magnesium Sulfate 2 gm in 50 mls @ 25 mls/hr 09/27/24 02:06 09/27/24 05:41 Magnesium Sulfate/H2o IV 09/27/24 04:05 Infused ONCE ONE Infusion Iohexol 85 ml 09/26/24 17:36 09/26/24 17:37 Iohexol 350 Mg/Ml 100 Ml Infus..Btl IV 09/26/24 17:37 85 ml ONCE ONE Administration Lactulose 20 gm 09/26/24 16:12 09/26/24 17:04 Lactulose 20 Gm/30 Ml Solution PO 09/26/24 16:13 20 gm ONCE ONE Administration Lidocaine HCl 5 ml 09/27/24 15:09 09/27/24 15:10 Lidocaine Hcl 1 % Mpf 5 Ml Vial SUBCUT 09/27/24 15:10 5 ml ONCE ONE Administration Procedures Procedure Narrative Procedure Narrative: I was asked to participate in the care only to assist with IV access and this difficult IV access patient. Ultrasound Guided Peripheral Intravenous Catheter Placement Date/Time:09/26 5p Indication: Intravenous Access Location: right arm Provider: Self I was approached by nursing staff and informed that multiple unsuccessful attempts had been made to establish IV access in the patient. The patients arm was surveyed with the ultrasound for verification of vessel collapsibility, patency, depth and caliber, as well as identification of nearby structures. The target area was prepped with chlorhexidine. A tourniquet was placed proximally on the extremity. Under real-time ultrasound guidance, an 20 G 2.25 inch AccuCath nontunneled catheter was advanced into the target vein. Dark blood was visualized in the flash chamber. The catheter was easily advanced into the vein. The catheter was evacuated of air and flushed with sterile saline. The catheter was secured in place with a tegaderm. The patient tolerated the procedure well and there were no complications. Estimated Blood Loss: 1mL Total Time for Procedure: 5min Image stored Marc Elkins MD Medical Decision Making Medical Decision Making MDM Narrative: 53 year old female with pmhx significant for hypertension, ETOH abuse in remission, ETOH hepatitis, thrombocytopenia, Wernicke's encephalopathy, opioid use disorder on Suboxone, presents to the ED today via EMS from home for evaluation of increased confusion and yellowing of her skin. Vital signs are stable, afebrile. Not hypoxic. On exam, skin is very jaundiced with scleral icterus. She appears restless. There is asterixis, no tongue fasciculations. Pupils are constricted bilaterally. She is A&O x3 however slow to respond to questions. There is bilateral nonpitting edema to lower extremities, lungs with faint crackles to bases. Differential diagnosis includes anemia, electrolyte abnormality, hepatic encephalopathy, alcoholic hepatitis, pancreatic cancer, intracranial bleed, etoh abuse, drug use, CHF Unlikely spontaneous bacterial peritonitis. ischemic stroke/ TIA. Plan for labs, ekg, cxr, ct head/brain. Differential Diagnosis Differential Diagnoses: The differential diagnosis associated with the presentation includes as above. Admission/Observation Consideration of admission/observation: Escalation of care including admission/observation considered patient admitted to medicine for management of acute heptaic encephalopathy. Consult Healthcare Provider Management of the patient was discussed with: Hospitalist Lab Data [facility] Lab Attestation statement: I reviewed the patient's lab results. As above 09/27/24 05:19 09/27/24 05:19 Labs: Lab Results 09/26/24 09/26/24 Range/Units 15:43 18:25 WBC 12.8 H (4.8-10.8) X10*3/uL RBC 3.04 L D (4.20-5.50) X10*6/uL Hgb 10.5 L (12.0-16.0) g/dl Hct 31.4 L (37.0-47.0) % MCV 103.3 H (80.0-98.0) fL MCH 34.5 H (27.0-33.0) pg MCHC 33.4 (31.0-35.0) g/dl RDW 15.8 (11.0-16.0) % Plt Count 175 (160-400) X10*3/uL MPV 9.7 (9.4-12.3) fL Immature Gran % (Auto) 0.6 H (0.0-0.4) % Neut % (Auto) 84.5 H (45-73) % Lymph % (Auto) 5.3 L (20-40) % Avery % (Auto) 8.1 (2-11) % Eos % (Auto) 0.9 (0-4) % Baso % (Auto) 0.6 (0-2) % Lymph # (Auto) 0.7 L (1.2-4.9) X10*3/uL Avery # (Auto) 1.0 (0.1-1.2) X10*3/uL Eos # (Auto) 0.1 (0.0-0.4) X10*3/uL Baso # (Auto) 0.1 (0.0-0.2) X10*3/uL Abs Immat Gran (auto) 0.08 H (0.00-0.03) X10*3/uL Absolute Neuts (auto) 10.8 H (2.0-8.3) x10*3/uL Absolute Nucleated RBC 0.000 (0.0-0.012) X10*3/uL Nucleated RBC % (auto) 0.0 (0.0-0.2) /100WBC Sodium 136 (135-145) mmol/L Potassium 3.5 (3.3-5.1) mmol/L Chloride 103 (96-108) mmol/L Carbon Dioxide 23 (22-29) mmol/L Anion Gap 14 (12-20) BUN 5 L (9-16) mg/dL Creatinine 0.41 L (0.5-1.4) mg/dL Estim Creat Clear Calc 184.9 Estimated GFR > 60 Random Glucose 98 (60-115) mg/dL Calcium 8.4 D (8.4-10.2) mg/dL Magnesium 1.9 (1.6-2.6) mg/dL Total Bilirubin 20.3 H (0.0-1.0) mg/dL Direct Bilirubin 12.7 H (0.0-0.5) mg/dL AST 82 H (5-31) U/L ALT 20 (0-31) U/L Alkaline Phosphatase 119 H (39-117) U/L Ammonia 102 H (13-55) umol/L B-Natriuretic Peptide 313 H (<100) pg/mL Total Protein 5.5 L (6.5-8.0) g/dL Albumin 2.4 L (3.5-5.0) g/dL Lipase 10 (8-78) U/L Urine Color Prentiss A Urine Appearance Cloudy Urine pH 6.5 (5.0-9.0) Ur Specific [place] 1.020 (1.005-1.025) Urine Protein 30 (1+) H (Neg-Trace) mg/dL Urine Glucose (UA) 100 H (Negative) mg/dL Urine Ketones 15 (Negative) mg/dL Urine Blood Negative (Negative) Urine Nitrite Positive H (Negative) Ur Leukocyte Esterase Trace H (Negative) Urine RBC 3-5 H (0-2) /HPF Urine WBC 6-10 H (0-5) /HPF Ur Squamous Epith Cells >20 (0-2) /HPF Urine Bacteria 4+ (None Seen) Hyaline Casts 3-5 (0-2) /LPF Urine Opiates Screen Not Detected (Not Detect) Ur Buprenorphine Scrn Positive H (Not Detect) ng/mL Ur Oxycodone Screen Not Detected (Not Detect) ng/mL Urine Methadone Screen Not Detected (Not Detect) ng/mL Urine Fentanyl Screen Not Detected (Not Detect) Ur Barbiturates Screen POSITIVE H (Not Detect) Ur Phencyclidine Scrn Not Detected (Not Detect) Ur Amphetamines Screen Not Detected (Not Detect) U Benzodiazepines Scrn Not Detected (Not Detect) Urine Cocaine Screen Not Detected (Not Detect) U Marijuana (THC) Screen Not Detected (Not Detect) Ethyl Alcohol < 10 mg/dL Independent Interpretation I performed an independent interpretation of an: EKG, Plain X-Ray and CT Scan Interpretation: CT head/brain without bleed EKG showing normal sinus rhythm, rate of 76 beats per minute, QT 452, QTC 508 Chest x-ray without infiltrate or consolidation CT abdomen/pelvis showing ascites Radiology Impression Discussion of test interpretation with radiology: I have reviewed the radiologist's reading. Radiologist Impression: Date of Service: 09/26/24 Procedure(s): CT head/brain wo IV con Accession Number(s): [id number] cc: Physician,Unknown ; Susy Rivas~ Report Number: [id number]: Total DLP = 2243.00 mGy-cm CLINICAL HISTORY: altered CT head without contrast Comparison: None provided Findings: No intra-axial mass, midline shift, hydrocephalus, or acute hemorrhage. Involutional change brain parenchyma, advanced for age. Mild white matter disease. There is no sinus or mastoid fluid. The orbits are unremarkable. There is no acute fracture. IMPRESSION: 1. No acute intracranial findings. This document has been electronically signed by: Alexandra Felix MD on 09/26/2024 18:27:14 Procedure(s): CT abdomen pelvis w IV con Accession Number(s): [id number] cc: Physician,Unknown ; Susy Rivas~ Report Number: [id number]: Total DLP = 2243.00 mGy-cm CLINICAL HISTORY: painless jaundice CT abdomen and pelvis with contrast Comparison: US - US ABDOMEN LIMITED - 04/06/24 14:49 EST Findings: No consolidation or effusion. The liver is enlarged and heterogeneous. Small cyst within the left lobe of the liver. Moderate ascites. Normal spleen size. Splenorenal varices are present. There is pancreatic volume loss. Unremarkable kidneys and adrenal glands. Prior cholecystectomy. Prior gastric bypass. No bowel edema or dilatation. Large air-fluid level within the urinary bladder. Unremarkable uterus and bilateral adnexa. Normal appendix. No acute fracture. IMPRESSION: 1. Enlarged heterogeneous liver. Recommend correlation with laboratory data. Consider further evaluation with MRI. 2. Moderate ascites. 3. There is a large amount of air within the urinary bladder. This could be secondary to recent catheterization or cystitis. This document has been electronically signed by: Alexandra Felix MD on 09/26/2024 18:27:41 Procedure(s): XR chest 1V Accession Number(s): [id number] cc: Susy Rivas~ EXAMINATION: XR CHEST CLINICAL INFORMATION: short of breath COMPARISON: August 18, 2024. TECHNIQUE: Frontal view of the chest was obtained. FINDINGS: Pulmonary reticular pattern. Mild prominence of the interstitial lung markings in the perihilar region. Poor inspiration. No gross consolidation pleural effusion or pneumothorax. Cardiomediastinal silhouette size is normal. Multilevel thoracic spondylosis. Degenerative changes in the shoulders. Patient's large body habitus/obesity. XR/XR chest 1V IMPRESSION: Concerning mild interstitial edema in the correct clinical settings. Electronically signed by: Colin Drummond MD 09/26/2024 03:21 PM EDT Independent Historian Clinical information obtained from an independent historian. History obtained from or confirmed by: EMS External Record Review External record reviewed: Inpatient record Chronic Conditions Patient?s care impacted by: Other (ETOH abuse, hepatitis) Social Determinants Patient?s care significantly limited by Social Determinants of Health including: Alcoholism and drug addiction in family and Other Social Determinant of Health Critical Care Time Critical Care Time Critical Care Time: Yes Total Critical Care Time: 35 Attestation: Critical care time in the amount of 35 minutes has been provided to the patient in terms of direct patient care, frequent reevaluation, consultation with hospitalist, review and interpretation of medical data and results, and management of potentially life-threatening conditions. This is all outside of any medical procedures. Discharge Plan Discharge Clinical Impression: Acute hepatic encephalopathy, Abdominal ascites, UTI (urinary tract infection) Patient Disposition: Admitted As Inpatient Interventions: Admission Worksheet (ED) Last Done: 09/26/24 20:48 Discharge Date/Time: 09/26/24 22:08
--- NOTE | 2024-09-26 15:20 | ECG_ITS ---
Test Reason : AMS Blood Pressure : */* mmHG Vent. Rate : 76 BPM Atrial Rate : 76 BPM P-R Int : 142 ms QRS Dur : 84 ms QT Int : 452 ms P-R-T Axes : -9 15 -22 degrees QTcB Int : 508 ms Normal sinus rhythm Nonspecific ST and T wave abnormality Abnormal ECG When compared with ECG of 16-Aug-2024 07:16, No significant change was found Referred By: Susy Rivas Electronically Signed By: JOSE ALFREDO VÁZQUEZ
--- NOTE | 2024-09-26 15:43 | PC.NURSE ---
patient alert to person at times place, now at bedside, pt skin jaundice, sclera jaundice. abd firm/distended, pt states she hasnt drank in approx 7 weeks. iv previously inserted by ems, monitoring analyst applied, pt to have ekg and labs drawn by tech, call hazel within reach, plan of care ongoing .
[2024-09-26 15:49] LABS: MANUAL DIFF FLAG NO
[2024-09-26 15:54] LABS: Basophils Absolute Auto 0.1 X10*3/uL (0.0-0.2); Basophils Percent Auto 0.6 % (0-2); Eosinophils Absolute Auto 0.1 X10*3/uL (0.0-0.4); Eosinophils Percent Auto 0.9 % (0-4); Hematocrit 31.4 % (37.0-47.0); Hemoglobin 10.5 g/dl (12.0-16.0); Imm Gran Abs Auto 0.08 X10*3/uL (0.00-0.03); Imm Gran Pct Auto 0.6 % (0.0-0.4); Lymphocytes Absolute Auto 0.7 X10*3/uL (1.2-4.9); Lymphocytes Percent Auto 5.3 % (20-40); Mean Corpuscular HGB Conc 33.4 g/dl (31.0-35.0); Mean Corpuscular Hemoglobin 34.5 pg (27.0-33.0); Mean Corpuscular Volume 103.3 fL (80.0-98.0); Mean Platelet Volume 9.7 fL (9.4-12.3); Monocytes Percent Auto 8.1 % (2-11); Neutrophils Absolute Auto 10.8 x10*3/uL (2.0-8.3); Neutrophils Percent Auto 84.5 % (45-73); Platelet Count 175 X10*3/uL (160-400); Red Blood Count 3.04 X10*6/uL (4.20-5.50); Red Cell Distribution Width 15.8 % (11.0-16.0); White Blood Count 12.8 X10*3/uL (4.8-10.8)
[2024-09-26 15:57] LABS: Ammonia 102 umol/L (13-55)
[2024-09-26 16:05] LABS: Alanine Aminotransferase 20 U/L (0-31); Albumin Level 2.4 g/dL (3.5-5.0); Alkaline Phosphatase 119 U/L (39-117); Anion Gap 14 (12-20); Aspartate Amino Transferase 82 U/L (5-31); Bilirubin Direct 12.7 mg/dL (0.0-0.5); Bilirubin Total 20.3 mg/dL (0.0-1.0); Blood Urea Nitrogen 5 mg/dL (9-16); Calcium 8.4 mg/dL (8.4-10.2); Carbon Dioxide 23 mmol/L (22-29); Chloride 103 mmol/L (96-108); Creatinine Clr Calc Pharmacy 184.9; Estimated Glomerular Filt Rate > 60; Ethanol < 10 mg/dL; Glucose Random 98 mg/dL (60-115); Lipase 10 U/L (8-78); Potassium 3.5 mmol/L (3.3-5.1); Sodium 136 mmol/L (135-145); Total Protein 5.5 g/dL (6.5-8.0)
[2024-09-26 16:18] LABS: Magnesium 1.9 mg/dL (1.6-2.6)
--- OUTSIDE RECORDS SUMMARY | 2024-09-26 16:56 | XMS_ITS | Encounter Summary ---
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
[2024-09-26] MEDS: Lactulose 20 GM/30 ML SOLUTION PO (17:04)
[2024-09-26 17:30] LABS: B Type Natriuretic Peptide 313 pg/mL (<100)
[2024-09-26] MEDS: iohexoL 350 MG/ML 100 ML INFUS..BTL 85 ML IV (17:37)
[2024-09-26 18:08] VITALS: BP 109/60; PULSE 72; RESP 12; TEMP 36.7; O2SAT 97
[2024-09-26 18:43] LABS: Appearance Urine Cloudy; Color Urine Orange; Glucose Urine UA 100 mg/dL (Negative); PH 6.5 (5.0-9.0); Urine Blood Negative (Negative)
[2024-09-26 18:44] LABS: Amphetamine Screen Urine Not Detected (Not Detect); Barbiturates, Urine POSITIVE (Not Detect); Benzodiazepines Screen Urine Not Detected (Not Detect); Buprenorphine Scr Positive (Not Detect); Cannabinoid Screen Urine Not Detected (Not Detect); Cocaine Screen Urine Not Detected (Not Detect); Fentanyl, urine Not Detected (Not Detect); Leukocyte Esterase Urine Trace (Negative); Methadone Screen, Urine Not Detected (Not Detect); Opiate Screen Urine Not Detected (Not Detect); Oxycodone Screen Urine Not Detected (Not Detect); Phencyclidine Screen Urine Not Detected (Not Detect); Urine Ketones 15 mg/dL (Negative); Urine Protein 30 (1+) mg/dL (Neg-Trace)
[2024-09-26] MEDS: cefTRIAXone sodium 1 GM VIAL IVPUSH (19:30)
[2024-09-26 19:35] LABS: Nitrite Urine Positive (Negative); UMIC TRIGGER UACC YES
[2024-09-26 19:55] LABS: INTERNATIONAL NORM RATIO 2.7 (0.9-1.1); Prothrombin Time 30.5 SEC (10.9-12.4)
[2024-09-26 20:08] LABS: Bacteria Urine 4+ (None Seen); Squamous Epithelial Cell Urine >20 /HPF (0-2); UACC Culture Trigger YES
--- NOTE | 2024-09-26 20:26 | PC.NURSE ---
assumed care of pt. EMS IV on L hand removed as pt was in pain. Pt medicated per JUN. Pt tolerated well.
--- NOTE | 2024-09-26 20:52 | PC.NURSE ---
no cultures needed, per DEJAH Armen, prior to antibiotics for UTI.
--- NOTE | 2024-09-26 21:14 | PHA.MEDREC ---
Addendum entered by Pedro Ellington [facility] 09/26/24 22:05: MED REC REVIEWED BY [facility]. Dr. Hunter was made aware of the dose of suboxone (8-2 mg daily) that patient was taking at home. Addendum entered by Love Dsouza 09/26/24 21:53: Patient confirmed the Suboxone 8-1mg films were written to be given 1 film twice a day but hes only been giving it once a day to the pt. Original Note: Pharmacy Consult ? Medication Reconciliation Pharmacy has completed the medication reconciliation. Spoke with pt and she was confused about her medications at this time. I spoke with pt over the phone and he confirmed the pt was just discharged from us 08/31 and brought to a nursing facility where she was started on new medication but he was not sure what she was taking there and stated since the pt has been home he has been giving the pt her medications; he was able to verbally confirm with Rx bottles he had at home on hand with me. Pt nor her could confirm if she started the Spironolactone; could not find any Rx bottles or bubble packs of that at home.
[2024-09-26 22:00] VITALS: BP 122/68; PULSE 71; RESP 16; TEMP 36.3; O2SAT 98
[2024-09-26 22:01] VITALS: BMI 40.8
--- NOTE | 2024-09-26 22:55 | PM.IMHP ---
History of Present Illness Date of Service: 09/26/24 Attending physician on admission: Syed Hunter Chief Complaint: Jaundice, altered mental status Pt is a 53 yo female with PMH hypertension, ETOH abuse in remission, ETOH hepatitis, thrombocytopenia, Wernicke's encephalopathy, gastric bypass, opioid use disorder on Suboxone, encephalopathy, hyponatremia, ,depression with anxiety presents to the emergency room from home increased encephalopathy and evidence of jaundiced as witnessed by patient's home care nurse. Patient was very slow to respond when answering questions. Patient denied any alcohol use over the last 7 weeks. It was indicated by pharmacist for medication reconciliation note that patient may have had twice the amount of Suboxone per day than prescribed which may be contributing to her alteration in mental status. Ammonia was 102, patient received 1 dose of lactulose in the ED. patient's potassium 5.3 and sodium was normal at 136. Patient's total bilirubin 20.3, direct bilirubin 12.7, AST 82, ALT 20, alk-phos 119, BNP 313, albumin 2.4, lipase 10. Patient had been transferred to room 371 and was seen and examined for admission. Patient currently awake alert and somewhat histrionic regarding the fact that she is not going home. Patient states that she was told by a PA in the ED that she would be leaving 1st thing in the morning. This board writer explained the plan for treatment including paracentesis with IR and GI consultation. In addition we will adding lactulose 3 times a day to help with patient's ammonia level. Education provided on end-stage liver disease but patient's insight is poor. Patient is not requesting any Suboxone at this time. Patient actually more interested in lowering her Suboxone dose of it is causing damage further to her liver. CT scan of the abdomen notes moderate ascites and splenorenal varices but normal spleen size. No evidence of bowel edema or dilatation. Evidence of cystitis also seen. UA correlates to possible UTI. Patient is started on ceftriaxone empirically for UTI and SBP. Patient currently has a leukocytosis of 12.8, normal platelet count of 175K, is afebrile with stable hemodynamics. Patient has been able to void on her own so currently we do not require a Prieto placement. Patient is currently able to protect her airway. Review of Systems Review of Systems: Patient is reporting chronic back pain is refusing lidocaine patch or intervention including pain meds. Patient denies any chest pain or shortness of breath at rest. Patient denies any abdominal pain at this time. Patient denies any headache or visual changes. Yes all other systems are reviewed and are negative COUNTS INCLUDE 234 BEDS AT THE [facility] Medical History Alcoholic hepatitis Alcoholism Depression with anxiety Alcohol use disorder, severe, dependence Alcohol withdrawal hallucinosis Falls frequently Pedal edema Cellulitis Alcohol intoxication Korsakoff syndrome Thrombocytopenia Alcohol withdrawal syndrome Abscess of axilla, right Rash Encounter for monitoring Suboxone maintenance therapy Hypertension Opioid use disorder Alcohol abuse Cognitive capacity: Currently alert and orientated x3 history on it Functional capacity: wheelchair bound Patient : No Family History Father Lung cancer Surgical History Gastric bypass status for obesity History of total knee arthroplasty History of gastric surgery Social History Household Members: Spouse Household Members Other:: 2 Housing: House Do you presently have visiting nurse or other home services: Yes Unable to assess alcohol history related to: Unknown Alcohol intake: former Comment: refuses alarm Patient Tobacco Use Status: Former Tobacco user Tobacco use type: Cigarette Years Smoked: 2 Smoked in Last 30 Days: No Second Hand Smoke Exposure: No Use of substances other than those prescribed or required for medical reasons: No Have you been hit, kicked, punched, or otherwise hurt by someone within the past year? If so, by whom?: No Do you feel safe in your current relationship?: Yes Is there a partner from a previous relationship who is making you feel unsafe now?: No Are you made to feel afraid or neglected: No Advance Directives: Yes Advance Directives on File: Yes Advance Directives Date on File: 09/01/24 Do you have a plan to hurt others: No Plan Recently lost weight without trying: No Nutrition Risks: No Nutritional Risk Patient : No : No Poor oral hygiene: No service: No Current occupational status: employed Ebola Risk: Travel/Contact With Anyone From Affected Area/s: No Has Patient Experienced Ebola Symptoms: No Meds Allergies Allergy/AdvReac Type Severity Reaction Status Date / Time No Known Allergies Allergy Verified 09/26/24 14:54 Active Medications: Current Medications Acetaminophen (Acetaminophen 325 Mg Tablet) 650 mg PO Q6H PRN PRN Reason: Pain, Mild 1-3,fever,headache Albuterol/Ipratropium (Albuterol/Iprat 2.5/0.5mg 3 Ml Ampul.Neb) 3 ml INHALE Q4H PRN PRN Reason: Shortness of Breath/Wheezing Calcium Carbonate (Calcium Carbonate 750 Mg Tab.Chew) 750 mg PO Q4H PRN PRN Reason: Heartburn Ceftriaxone Sodium (Ceftriaxone Sodium 1 Gm Vial) 1 gm IVPUSH Q24H [place] Enoxaparin Sodium (Enoxaparin Sodium 40 Mg/0.4 Ml Syringe) 40 mg SUBCUT Q24H [place] Lactulose (Lactulose 20 Gm/30 Ml Solution) 30 gm PO TID [place] Magnesium Hydroxide (Milk Of Magnesia 30 Ml Oral.Susp) 30 ml PO DAILY PRN PRN Reason: Constipation Melatonin (Melatonin 3 Mg Tablet) 6 mg PO BEDTIME PRN PRN Reason: Insomnia Ondansetron HCl (Ondansetron Hcl 4 Mg/2 Ml Vial) 4 mg IVPUSH Q8H PRN PRN Reason: Nausea and Vomiting Senna (Sennosides 8.6 Mg Tablet) 17.2 mg PO BEDTIME [place] Sodium Chloride (0.9 % Sodium Chloride Flush 3 Ml Syringe) 3 ml IVFLUSH QSHIFT [facility] Home Medications ?Medication ?Instructions ?Recorded ?Confirmed ?Last Taken ?Type folic acid 1 mg tablet 1 mg PO DAILY 06/02/24 09/26/24 09/25/24 History thiamine HCl (vitamin B1) 100 mg 100 mg PO DAILY 06/02/24 09/26/24 09/25/24 History capsule multivitamin 1 tab PO DAILY 08/16/24 09/26/24 09/25/24 History buprenorphine 8 mg-naloxone 2 mg 1 film sublingual DAILY 09/26/24 09/26/24 09/25/24 History sublingual film gabapentin 100 mg capsule 100 mg PO BID 09/26/24 09/26/24 09/25/24 History magnesium oxide 400 mg PO DAILY 09/26/24 09/26/24 09/25/24 History rifaximin 550 mg tablet (Xifaxan) 550 mg PO BID 09/26/24 09/26/24 09/25/24 History Physical Exam Vital Signs and Narrative: Vital Signs: Last Vital Signs Temp 97.3 F 09/26/24 22:00 Pulse 71 09/26/24 22:00 Resp 16 09/26/24 22:00 BP 122/68 09/26/24 22:00 Pulse Ox 98 09/26/24 22:00 O2 Del Method Room Air 09/26/24 22:00 BMI result Body Mass Index 40.8 Alert and orientated X3, able to follow commands and answer questions asked. Neuro: CN II-X11 intact, no deficits, visual acuity intact EYES: PERRLA, EOM intact, sclerae icteric, conjunctiva pink ENT: hearing intact, no issues with swallowing, uvula midline, lips moist, nares patent no epistaxis Cardiac: S1 S2 RRR, no murmur, mild JVD, mild edema in Lower ext Pulmonary: lungs diminished bilaterally Abdominal: BS hypoactive, abdomen grossly distended and firm with tympany, no tenderness on exam or guarding MSK: strength 4/5 upper and lower extremities : no CVA tenderness no bladder distension Extremities: Mild edema in lower extremities, PT and DP pulses palpable +2 Psych: mood anxious, histrionic, judgement and insight fair Skin: Jaundice Results Labs 09/26/24 15:43 09/26/24 15:43 Labs: Laboratory Results - last 24 hr 09/26/24 09/26/24 09/26/24 15:43 18:25 19:42 MCV 103.3 H MCH 34.5 H MCHC 33.4 RDW 15.8 Plt Count 175 MPV 9.7 Immature Gran % (Auto) 0.6 H Neut % (Auto) 84.5 H Lymph % (Auto) 5.3 L [place] % (Auto) 8.1 Eos % (Auto) 0.9 Baso % (Auto) 0.6 Lymph # (Auto) 0.7 L [place] # (Auto) 1.0 Eos # (Auto) 0.1 Baso # (Auto) 0.1 Abs Immat Gran (auto) 0.08 H Absolute Neuts (auto) 10.8 H Absolute Nucleated RBC 0.000 Nucleated RBC % (auto) 0.0 PT 30.5 H D INR 2.7 H Anion Gap 14 Estim Creat Clear Calc 184.9 Estimated GFR > 60 Random Glucose 98 Calcium 8.4 D Magnesium 1.9 Total Bilirubin 20.3 H Direct Bilirubin 12.7 H AST 82 H ALT 20 Alkaline Phosphatase 119 H Ammonia 102 H B-Natriuretic Peptide 313 H Total Protein 5.5 L Albumin 2.4 L Lipase 10 Urine Color [place] A Urine Appearance Cloudy Urine pH 6.5 Ur Specific [place] 1.020 Urine Protein 30 (1+) H Urine Glucose (UA) 100 H Urine Ketones 15 Urine Blood Negative Urine Nitrite Positive H Ur Leukocyte Esterase Trace H Urine RBC 3-5 H Urine WBC 6-10 H Ur Squamous Epith Cells >20 Urine Bacteria 4+ Hyaline Casts 3-5 Urine Opiates Screen Not Detected Ur Buprenorphine Scrn Positive H Ur Oxycodone Screen Not Detected Urine Methadone Screen Not Detected Urine Fentanyl Screen Not Detected Ur Barbiturates Screen POSITIVE H Ur Phencyclidine Scrn Not Detected Ur Amphetamines Screen Not Detected U Benzodiazepines Scrn Not Detected Urine Cocaine Screen Not Detected U Marijuana (THC) Screen Not Detected Ethyl Alcohol < 10 ECG Attestation: I personally reviewed and interpreted this ECG as follows: (Normal sinus rhythm nonspecific ST and T-wave abnormalities QTC 508) Imaging Radiologist's Impressions: Impressions Chest X-Ray 09/26/24 14:11 IMPRESSION: Concerning mild interstitial edema in the correct clinical settings. Electronically signed by: Colin Drummond MD 09/26/2024 03:[address] of the abdomen IMPRESSION: 1. Enlarged heterogeneous liver. Recommend correlation with laboratory data. Consider further evaluation with MRI. 2. Moderate ascites. 3. There is a large amount of air within the urinary bladder. This could be secondary to recent catheterization or cystitis. Assessment and Plan (1) Metabolic encephalopathy: Status: Acute Plan Pt is a 53 yo female with PMH hypertension, ETOH abuse in remission, ETOH hepatitis, thrombocytopenia, Wernicke's encephalopathy, gastric bypass, opioid use disorder on Suboxone, encephalopathy, hyponatremia, ,depression with anxiety is being admitted with metabolic encephalopathy secondary to end-stage liver failure secondary to alcohol abuse with moderate ascites and need of paracentesis. Patient also has evidence of UTI and is being treated empirically for SBP. Metabolic encephalopathy with end-stage liver disease secondary to alcohol abuse, elevated ammonia levels, abnormal liver labs -GI consultation ordered -Mental status has improved, continuing lactulose 30 g t.i.d. -Ammonia level in the a.m., currently 102 -No recent alcohol use reported by patient -Suboxone dose confirmed 4 mg daily, patient is agreeable to this (suspected pt was taking 8 mg daily which may have contributed to worsening encephalopathy) -Trend CMP -Avoid hepatotoxic medications Moderate ascites -IR consulted for paracentesis in the a.m. -Patient made NPO after midnight -Paracentesis labs also ordered -Spironolactone -PRN Lasix -Monitor electrolytes -Albumin levels are low Empiric treatment for possible SBP -Patient is started on ceftriaxone empirically -Patient afebrile, does have a leukocytosis of 12 -Patient does not meet the criteria for sepsis UTI -UA positive -Urine culture pending -Ceftriaxone started Patient on Suboxone for opioid use disorder -Suboxone dose confirmed 4 mg daily, patient is agreeable to this DVT prophylaxis: Lovenox held very to planned paracentesis in the a.m. PPI prophylaxis: Protonix IV Med rec completed Full Code status Quality Stroke Does the patient have a stroke diagnosis?: No Reason for No Anti-thrombotic by Day Two: N/A - Med Ordered VTE Prior VTE?: No VTE Risk Level:: Medical - moderate - high VTE Device Contraindication: N/A - Device Ordered VTE Drug Contraindication: N/A - Med Ordered
[2024-09-26] MEDS: Lactulose 20 GM/30 ML SOLUTION 30 GM PO (23:40)
[2024-09-26] MEDS: 0.9 % Sodium Chloride Flush 3 ML SYRINGE IVFLUSH (23:44)
--- NOTE | 2024-09-27 01:37 | PC.NURSE ---
pt yelling and crying in room, when asked, pt crying for something to drink. note; pt NPO, ok ice, sips and meds. pt offered ice chips. now pt crying because of procedure in the AM. multiple attempt made to calm and educate pt with pt now accusatory with this lyric writer of being mean and everyone thinks i'm rude putting hand in this lyric writer's face and refusing to speak to this lyric writer. pt given cup of ice, notified of pt behavior, will cont to monitor
[2024-09-27 03:17] VITALS: BP 103/59; PULSE 67; RESP 18; TEMP 36; O2SAT 94
[2024-09-27] MEDS: Magnesium Sulfate/H2O 2 GM/50 ML PIGGYBACK IV (03:17)
[2024-09-27 05:34] LABS: MANUAL DIFF FLAG NO
[2024-09-27 05:38] LABS: Basophils Absolute Auto 0.1 X10*3/uL (0.0-0.2); Basophils Percent Auto 0.6 % (0-2); Eosinophils Absolute Auto 0.2 X10*3/uL (0.0-0.4); Eosinophils Percent Auto 1.4 % (0-4); Hemoglobin 9.6 g/dl (12.0-16.0); Imm Gran Abs Auto 0.04 X10*3/uL (0.00-0.03); Imm Gran Pct Auto 0.4 % (0.0-0.4); Lymphocytes Absolute Auto 0.8 X10*3/uL (1.2-4.9); Lymphocytes Percent Auto 7.2 % (20-40); Mean Corpuscular HGB Conc 34.3 g/dl (31.0-35.0); Mean Corpuscular Hemoglobin 34.9 pg (27.0-33.0); Mean Corpuscular Volume 101.8 fL (80.0-98.0); Mean Platelet Volume 10.1 fL (9.4-12.3); Monocytes Percent Auto 9.2 % (2-11); Neutrophils Absolute Auto 9.1 x10*3/uL (2.0-8.3); Neutrophils Percent Auto 81.2 % (45-73); Platelet Count 181 X10*3/uL (160-400); Red Blood Count 2.75 X10*6/uL (4.20-5.50); Red Cell Distribution Width 15.8 % (11.0-16.0); White Blood Count 11.3 X10*3/uL (4.8-10.8)
[2024-09-27 05:42] LABS: Ammonia 68 umol/L (13-55)
[2024-09-27 05:53] LABS: Alanine Aminotransferase 17 U/L (0-31); Albumin Level 2.1 g/dL (3.5-5.0); Alkaline Phosphatase 98 U/L (39-117); Anion Gap 12 (12-20); Aspartate Amino Transferase 71 U/L (5-31); Bilirubin Total 17.7 mg/dL (0.0-1.0); Blood Urea Nitrogen 5 mg/dL (9-16); Calcium 8.1 mg/dL (8.4-10.2); Carbon Dioxide 24 mmol/L (22-29); Chloride 105 mmol/L (96-108); Creatinine Clr Calc Pharmacy 192.6; Estimated Glomerular Filt Rate > 60; Glucose Random 87 mg/dL (60-115); Lactate Dehydrogenase 222 U/L (122-220); Potassium 3.4 mmol/L (3.3-5.1); Sodium 138 mmol/L (135-145); Total Protein 4.7 g/dL (6.5-8.0)
[2024-09-27 05:54] LABS: Haptoglobin < 8 mg/dL (35-250)
[2024-09-27 06:00] VITALS: BMI 40.7
[2024-09-27 07:36] VITALS: BP 112/56; PULSE 76; RESP 16; TEMP 36.8; O2SAT 97
[2024-09-27] MEDS: 0.9 % Sodium Chloride Flush 3 ML SYRINGE IVFLUSH ×3 (09:12→21:13)
[2024-09-27] MEDS: Lactulose 20 GM/30 ML SOLUTION 30 GM PO ×3 (09:13→21:11)
[2024-09-27] MEDS: rifAXIMin 550 MG TABLET PO ×2 (09:13→21:11)
--- NOTE | 2024-09-27 10:50 | P.PNIM_ITS ---
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 Patient is still confused, jaundice Hard time with conversation, unable to find words SOB no chest pain, abd pain, nausea or vomiting paracentesis today last had etoh 2 months ago Review of Systems Review of Systems: Yes all other systems are reviewed and are negative Physical Exam 2 Vital Signs: Vital Signs: Last Vital Signs Temp 98.2 F 09/27/24 07:36 Pulse 76 09/27/24 07:36 Resp 16 09/27/24 07:36 BP 112/56 L 09/27/24 07:36 Pulse Ox 97 09/27/24 07:36 O2 Del Method Room Air 09/27/24 07:36 BMI result Body Mass Index 40.8 General: AOx3, hard time word finding, no acute distress Resp: CTA bilaterally CVS: S1, S2, RRR GI: +BS, NT, distended Skin: Warm, dry. jaundice with scleral icterus Neuro: Cranial nerves II-XII grossly intact bilaterally. Motor grossly intact bilaterally Extremities: No LE edema Psych: Appropriate affect Objective Data Active Medications Acetaminophen (Acetaminophen 325 Mg Tablet) 650 mg PO Q6H PRN PRN Reason: Pain, Mild 1-3,fever,headache Albuterol/Ipratropium (Albuterol/Iprat 2.5/0.5mg 3 Ml Ampul.Neb) 3 ml INHALE RQ4H PRN PRN Reason: Shortness of Breath/Wheezing Calcium Carbonate (Calcium Carbonate 750 Mg Tab.Chew) 750 mg PO Q4H PRN PRN Reason: Heartburn Ceftriaxone Sodium (Ceftriaxone Sodium 1 Gm Vial) 1 gm IVPUSH Q24H [facility] Enoxaparin Sodium (Enoxaparin Sodium 40 Mg/0.4 Ml Syringe) 40 mg SUBCUT Q24H [facility] On Hold: 09/26/24 23:35 Last Admin: 09/26/24 23:49 Dose: Not Given Documented By: KAREN Non-Admin Reason: held per order Lactulose (Lactulose 20 Gm/30 Ml Solution) 30 gm PO TID [facility] Last Admin: 09/27/24 09:13 Dose: 30 gm Documented By: HEAVEN Magnesium Hydroxide (Milk Of Magnesia 30 Ml Oral.Susp) 30 ml PO DAILY PRN PRN Reason: Constipation Melatonin (Melatonin 3 Mg Tablet) 6 mg PO BEDTIME PRN PRN Reason: Insomnia Ondansetron HCl (Ondansetron Hcl 4 Mg/2 Ml Vial) 4 mg IVPUSH Q8H PRN PRN Reason: Nausea and Vomiting Rifaximin (Rifaximin 550 Mg Tablet) 550 mg PO BID [facility] Last Admin: 09/27/24 09:13 Dose: 550 mg Documented By: HEAVEN Senna (Sennosides 8.6 Mg Tablet) 17.2 mg PO BEDTIME [facility] Sodium Chloride (0.9 % Sodium Chloride Flush 3 Ml Syringe) 3 ml IVFLUSH QSHIFT [facility] Last Admin: 09/27/24 09:12 Dose: 3 ml Documented By: HEAVEN Labs 09/27/24 05:19 09/27/24 05:19 Labs: Laboratory Results - last 24 hr 09/26/24 09/26/24 09/26/24 15:43 18:25 19:42 MCV 103.3 H MCH 34.5 H MCHC 33.4 RDW 15.8 Plt Count 175 MPV 9.7 Immature Gran % (Auto) 0.6 H Neut % (Auto) 84.5 H Lymph % (Auto) 5.3 L [place] % (Auto) 8.1 Eos % (Auto) 0.9 Baso % (Auto) 0.6 Lymph # (Auto) 0.7 L [place] # (Auto) 1.0 Eos # (Auto) 0.1 Baso # (Auto) 0.1 Abs Immat Gran (auto) 0.08 H Absolute Neuts (auto) 10.8 H Absolute Nucleated RBC 0.000 Nucleated RBC % (auto) 0.0 PT 30.5 H D INR 2.7 H Anion Gap 14 Estim Creat Clear Calc 184.9 Estimated GFR > 60 Random Glucose 98 Haptoglobin Calcium 8.4 D Magnesium 1.9 Total Bilirubin 20.3 H Direct Bilirubin 12.7 H AST 82 H ALT 20 Alkaline Phosphatase 119 H Ammonia 102 H Lactate Dehydrogenase B-Natriuretic Peptide 313 H Total Protein 5.5 L Albumin 2.4 L Lipase 10 Urine Color [place] A Urine Appearance Cloudy Urine pH 6.5 Ur Specific [place] 1.020 Urine Protein 30 (1+) H Urine Glucose (UA) 100 H Urine Ketones 15 Urine Blood Negative Urine Nitrite Positive H Ur Leukocyte Esterase Trace H Urine RBC 3-5 H Urine WBC 6-10 H Ur Squamous Epith Cells >20 Urine Bacteria 4+ Hyaline Casts 3-5 Urine Opiates Screen Not Detected Ur Buprenorphine Scrn Positive H Ur Oxycodone Screen Not Detected Urine Methadone Screen Not Detected Urine Fentanyl Screen Not Detected Ur Barbiturates Screen POSITIVE H Ur Phencyclidine Scrn Not Detected Ur Amphetamines Screen Not Detected U Benzodiazepines Scrn Not Detected Urine Cocaine Screen Not Detected U Marijuana (THC) Screen Not Detected Ethyl Alcohol < 10 09/27/24 05:19 MCV 101.8 H MCH 34.9 H MCHC 34.3 RDW 15.8 Plt Count 181 MPV 10.1 Immature Gran % (Auto) 0.4 Neut % (Auto) 81.2 H Lymph % (Auto) 7.2 L [place] % (Auto) 9.2 Eos % (Auto) 1.4 Baso % (Auto) 0.6 Lymph # (Auto) 0.8 L [place] # (Auto) 1.0 Eos # (Auto) 0.2 Baso # (Auto) 0.1 Abs Immat Gran (auto) 0.04 H Absolute Neuts (auto) 9.1 H Absolute Nucleated RBC 0.000 Nucleated RBC % (auto) 0.0 PT INR Anion Gap 12 Estim Creat Clear Calc 192.6 Estimated GFR > 60 Random Glucose 87 Haptoglobin < 8 L Calcium 8.1 L Magnesium Total Bilirubin 17.7 H Direct Bilirubin AST 71 H ALT 17 Alkaline Phosphatase 98 Ammonia 68 H Lactate Dehydrogenase 222 H B-Natriuretic Peptide Total Protein 4.7 L Albumin 2.1 L Lipase Urine Color Urine Appearance Urine pH Ur Specific [place] Urine Protein Urine Glucose (UA) Urine Ketones Urine Blood Urine Nitrite Ur Leukocyte Esterase Urine RBC Urine WBC Ur Squamous Epith Cells Urine Bacteria Hyaline Casts Urine Opiates Screen Ur Buprenorphine Scrn Ur Oxycodone Screen Urine Methadone Screen Urine Fentanyl Screen Ur Barbiturates Screen Ur Phencyclidine Scrn Ur Amphetamines Screen U Benzodiazepines Scrn Urine Cocaine Screen U Marijuana (THC) Screen Ethyl Alcohol Microbiology Microbiology Results: Microbiology 09/26/24 Unknown Urine Culture - Preliminary Urine clean catch - Clean Catch Midstream Gram negative marion Assessment and Plan (1) Acute hepatic encephalopathy: Status: Acute (2) Ascites: Status: Acute Plan 53-year-old female with acute metabolic encephalopathy secondary to end-stage liver disease secondary to alcohol use with moderate ascites Metabolic encephalopathy with end-stage liver disease secondary to alcohol abuse, elevated ammonia levels, abnormal liver labs -GI consultation ordered -Mental status has improving, continue lactulose 30 g t.i.d. -ammonia 102 to 68 -last etoh 2 months ago per pt -Trend CMP -Avoid hepatotoxic medications Moderate ascites -IR paracentesis today -Spironolactone -PRN Lasix -Monitor electrolytes -Albumin levels are low Empiric treatment for possible SBP -Patient is started on ceftriaxone empirically -Patient afebrile, does have a leukocytosis of 12 -Patient does not meet the criteria for sepsis UTI - culture pending, GNR - ceftrtiaxone Patient on Suboxone for opioid use disorder -Suboxone 4mg daily DVT prophylaxis: Lovenox after paracentesis, pneumoboots currently PPI prophylaxis: Protonix IV Full Code Continued need for admission due to metabolic encephalopathy, ascites requiring paracentesis and gastroenterology consultation Quality Stroke Does the patient have a stroke diagnosis?: No Reason for No Anti-thrombotic by Day Two: N/A - Med Ordered VTE Prior VTE?: No VTE Risk Level:: Medical - moderate - high VTE Device Contraindication: N/A - Device Ordered VTE Drug Contraindication: N/A - Med Ordered
--- NOTE | 2024-09-27 11:03 | P.CNGI_ITS ---
History of Present Illness Data of Consult Service Date: 09/27/24 Requesting physician: Debbie Rodríguez Primary Care Provider: Unknown Physician HPI Reason for consult: Jaundice, AMS 53-year-old female with medical history of alcohol use disorder, obesity status post gastric bypass, mood disorder, who was admitted to the hospital last month for alcoholic hepatitis with poor response to corticosteroids, now readmitted for hepatic encephalopathy. History was obtained from the patient, who states that she gets VNA at her house who called her PCP about her change in mental status. Patient herself is very tearful and anxious at the continues to ask about upcoming paracentesis as well as while she is still NPO. She admits to having word finding difficulty as well as finds some fine motor activities challenging - attributes this to her liver disease. Does not report abd pain, N,V, fevers or chills. Lives at home with . Reports sobriety x 8 weeks. Per documentation, she was very somnolent initially on arrival to the emergency room. There was also concern for inadvertent double dose of Suboxone being prescribed to the patient potentially contributing to AMS. In terms of labs, her INR has worsened from before. Bilirubin 17.7. Albumin has also declined further. Renal function remains normal. Review of Systems 2 Review of Systems: Yes all other systems are reviewed and are negative PMFSH Past Medical History Medical History Alcoholic hepatitis Alcoholism Depression with anxiety Alcohol use disorder, severe, dependence Alcohol withdrawal hallucinosis Falls frequently Pedal edema Cellulitis Alcohol intoxication Korsakoff syndrome Thrombocytopenia Alcohol withdrawal syndrome Abscess of axilla, right Rash Encounter for monitoring Suboxone maintenance therapy Hypertension Opioid use disorder Alcohol abuse Family History Family History Father Lung cancer Surgical History Surgical History Gastric bypass status for obesity History of total knee arthroplasty History of gastric surgery Social History Social History Household Members: Spouse Household Members Other:: 2 Housing: House Do you presently have visiting nurse or other home services: Yes Unable to assess alcohol history related to: Unknown Alcohol intake: former Comment: refuses alarm Patient Tobacco Use Status: Former Tobacco user Tobacco use type: Cigarette Years Smoked: 2 Smoked in Last 30 Days: No Second Hand Smoke Exposure: No Use of substances other than those prescribed or required for medical reasons: No Currently Displaying Signs/Symptoms of Drug Intoxication Withdrawal: No Have you been hit, kicked, punched, or otherwise hurt by someone within the past year? If so, by whom?: No Do you feel safe in your current relationship?: Yes Is there a partner from a previous relationship who is making you feel unsafe now?: No Are you made to feel afraid or neglected: No Advance Directives: Yes Advance Directives on File: Yes Advance Directives Date on File: 09/01/24 Do you have a plan to hurt others: No Plan Recently lost weight without trying: No Nutrition Risks: No Nutritional Risk Patient : No : No Poor oral hygiene: No service: No Current occupational status: employed Travel History Ebola Risk: Travel/Contact With Anyone From Affected Area/s: No Has Patient Experienced Ebola Symptoms: No Meds Allergies Allergy/AdvReac Type Severity Reaction Status Date / Time No Known Allergies Allergy Verified 09/26/24 14:54 Active Medications: Current Medications Acetaminophen (Acetaminophen 325 Mg Tablet) 650 mg PO Q6H PRN PRN Reason: Pain, Mild 1-3,fever,headache Albuterol/Ipratropium (Albuterol/Iprat 2.5/0.5mg 3 Ml Ampul.Neb) 3 ml INHALE RQ4H PRN PRN Reason: Shortness of Breath/Wheezing Calcium Carbonate (Calcium Carbonate 750 Mg Tab.Chew) 750 mg PO Q4H PRN PRN Reason: Heartburn Ceftriaxone Sodium (Ceftriaxone Sodium 1 Gm Vial) 1 gm IVPUSH Q24H [facility] Enoxaparin Sodium (Enoxaparin Sodium 40 Mg/0.4 Ml Syringe) 40 mg SUBCUT Q24H [facility] On Hold: 09/26/24 23:35 Last Admin: 09/26/24 23:49 Dose: Not Given Lactulose (Lactulose 20 Gm/30 Ml Solution) 30 gm PO TID [facility] Last Admin: 09/27/24 09:13 Dose: 30 gm Magnesium Hydroxide (Milk Of Magnesia 30 Ml Oral.Susp) 30 ml PO DAILY PRN PRN Reason: Constipation Melatonin (Melatonin 3 Mg Tablet) 6 mg PO BEDTIME PRN PRN Reason: Insomnia Ondansetron HCl (Ondansetron Hcl 4 Mg/2 Ml Vial) 4 mg IVPUSH Q8H PRN PRN Reason: Nausea and Vomiting Rifaximin (Rifaximin 550 Mg Tablet) 550 mg PO BID [facility] Last Admin: 09/27/24 09:13 Dose: 550 mg Senna (Sennosides 8.6 Mg Tablet) 17.2 mg PO BEDTIME [facility] Sodium Chloride (0.9 % Sodium Chloride Flush 3 Ml Syringe) 3 ml IVFLUSH QSHIFT [facility] Last Admin: 09/27/24 09:12 Dose: 3 ml Home Medications ?Medication ?Instructions ?Recorded ?Confirmed ?Last Taken ?Type folic acid 1 mg tablet 1 mg PO DAILY 06/02/2409/2609/25/24 History thiamine HCl (vitamin B1) 100 mg 100 mg PO DAILY 06/0209/26/24 09/25/24 History capsule multivitamin 1 tab PO DAILY 08/16/2409/0509/25/24 History buprenorphine 8 mg-naloxone 2 mg 1 film sublingual DAYSI LY 09/26/24 09/26/24 09/25/24 History sublingual film gabapentin 100 mg capsule 100 mg PO BID 09/26/2409/2609/25/24 History magnesium oxide 400 mg PO DAILY 09/26/2409/25/24 History rifaximin 550 mg tablet (Xifaxan) 550 mg PO BID 09/26/24 09/25/24 History Physical Exam 2 Vital Signs: Vital Signs: Last Vital Signs Temp 98.2 F 09/27/24 07:36 Pulse 76 09/27/24 07:36 Resp 16 09/27/24 07:36 BP 112/56 L 09/27/24 07:36 Pulse Ox 97 09/27/24 07:36 O2 Del Method Room Air 09/27/24 07:36 BMI result Body Mass Index 40.8 Tearful, anxious grossly jaundiced abd soft, nontender, distended ++ lower extremity edema A/Ox3, asterixis ++, generalized weakness but no focal deficits Results Labs 09/27/24 05:19 09/27/24 05:19 Labs: Short CBC 09/26/24 09/27/24 Range/Units 15:43 05:19 WBC 12.8 H 11.3 H (4.8-10.8) X10*3/uL Hgb 10.5 L 9.6 L (12.0-16.0) g/dl Hct 31.4 L 28.0 L (37.0-47.0) % Plt Count 175 181 (160-400) X10*3/uL BMP 09/26/24 09/27/24 15:43 05:19 Sodium 136 138 Potassium 3.5 3.4 Chloride 103 105 Carbon Dioxide 23 24 BUN 5 L 5 L Creatinine 0.41 L 0.41 L Calcium 8.4 D 8.1 L Liver Function 09/26/24 09/27/24 Range/Units 15:43 05:19 Total Bilirubin 20.3 H 17.7 H (0.0-1.0) mg/dL Direct Bilirubin 12.7 H (0.0-0.5) mg/dL AST 82 H 71 H (5-31) U/L ALT 20 17 (0-31) U/L Alkaline Phosphatase 119 H 98 (39-117) U/L Albumin 2.4 L 2.1 L (3.5-5.0) g/dL Urine 09/26/24 Range/Units 18:25 Urine Color [place] A Urine Appearance Cloudy Urine pH 6.5 (5.0-9.0) Ur Specific [place] 1.020 (1.005-1.025) Urine Protein 30 (1+) H (Neg-Trace) mg/dL Urine Glucose (UA) 100 H (Negative) mg/dL Microbiology Microbiology Results: Microbiology 09/26/24 Unknown Urine clean catch - Clean Catch Midstream Urine Culture - Preliminary Gram negative marion Assessment and Plan (1) Acute hepatic encephalopathy: Status: Acute (2) Alcoholic hepatitis: Qualifiers: Ascites presence: without ascites Qualified Code(s): K70.10 - Alcoholic hepatitis without ascites Status: Acute (3) Ascites: Status: Acute (4) Alcohol use disorder, severe, dependence: Status: Acute Plan MELD-Na on admission: 29 Prev MELD-Na on discharge: 26 Overall pts liver function has not improved over the past 30 days, if anything MELD has slightly declined further. See above. Will need to r/o underlying infection including SBP as a trigger for HE. In addition, liver appears heterogenous on CT on independent review of films. Would recommend liver protocol MRI to r/o new HCC as a potential trigger for HE. Plan: - Diagnostic paracentesis - pls send for albumin, total protein, cell count, culture and cytology - Cont lactulose - Add rifaximin 550 mg BID and zinc supplementation for HE - MRI liver protocol - No role for corticosteroids as pt was non-responder Thank you for allowing me to participate in her care. Please do not hesitate to reach out for any questions or concerns. Procedures Date of Service Date of Service: 09/27/24
[2024-09-27 11:59] VITALS: BP 103/55; PULSE 76; RESP 16; TEMP 36.4; O2SAT 96
--- NOTE | 2024-09-27 13:49 | MHC.CM.PN ---
pt l;rubén with is acive with [facility] pt expects to need a ride home when dcd dc plan home w/[facility]
--- NOTE | 2024-09-27 14:10 | MHC.CM.PN ---
pt lives with pr they have a vna not sure of agncey name he does not want pt to go to a rehab when dcd he is thinking maybe hospice he will speak with md gogo washburn
[2024-09-27] MEDS: Lidocaine HCl 1 % MPF 5 ML VIAL SUBCUT (15:10)
[2024-09-27 15:20] VITALS: BP 102/75; PULSE 80; RESP 15; TEMP 36.6; O2SAT 94
[2024-09-27] MEDS: Folic Acid 1 MG TABLET PO (15:29)
[2024-09-27] MEDS: Buprenorphine/Naloxone 8/2 mg FILM 1 FILM SUBLINGUAL (15:29)
[2024-09-27] MEDS: Magnesium Oxide 400 MG TABLET PO (15:29)
[2024-09-27 15:36] LABS: WBC Peritoneal Fluid 0.147 X10*3/uL
[2024-09-27] MEDS: cefTRIAXone sodium 1 GM VIAL IVPUSH (18:00)
[2024-09-27 18:43] LABS: RBC Peritoneal Fluid < 0.002 X10*6/uL
[2024-09-27 18:44] LABS: BF Shift QC OK YES; Man Diluent Bkgrd OK YES; Neutrophils Peritoneal Fluid 11 %; Other Peritioneal Fl 8 %
[2024-09-27 18:45] LABS: Lymphocyte Peritoneal Fl 33 %; Monocytes Peritoneal Fl 48 %
[2024-09-27 18:48] VITALS: BP 115/70; PULSE 76; RESP 18; TEMP 36.4; O2SAT 95
[2024-09-27] MEDS: Sennosides 8.6 MG TABLET 17.2 MG PO (21:10)
[2024-09-27] MEDS: Gabapentin 100 MG CAPSULE PO (21:11)
[2024-09-27] MEDS: Melatonin 3 MG TABLET 6 MG PO (21:12)
[2024-09-27 23:50] VITALS: BP 114/55; PULSE 69; RESP 18; TEMP 36.2; O2SAT 97
[2024-09-28 03:17] VITALS: BP 132/75; PULSE 74; RESP 18; TEMP 36.3; O2SAT 97
[2024-09-28 05:53] VITALS: BMI 37.9
[2024-09-28 06:48] LABS: Hematocrit 29.9 % (37.0-47.0); Hemoglobin 10.1 g/dl (12.0-16.0); Mean Corpuscular HGB Conc 33.8 g/dl (31.0-35.0); Mean Corpuscular Hemoglobin 34.8 pg (27.0-33.0); Mean Corpuscular Volume 103.1 fL (80.0-98.0); Mean Platelet Volume 10.1 fL (9.4-12.3); Platelet Count 211 X10*3/uL (160-400); Red Cell Distribution Width 15.5 % (11.0-16.0); White Blood Count 15.1 X10*3/uL (4.8-10.8)
[2024-09-28 06:54] LABS: Ammonia 67 umol/L (13-55)
[2024-09-28 07:11] LABS: Alanine Aminotransferase 16 U/L (0-31); Albumin Level 2.2 g/dL (3.5-5.0); Alkaline Phosphatase 152 U/L (39-117); Anion Gap 14 (12-20); Aspartate Amino Transferase 74 U/L (5-31); Bilirubin Total 19.3 mg/dL (0.0-1.0); Blood Urea Nitrogen 5 mg/dL (9-16); Calcium 8.4 mg/dL (8.4-10.2); Carbon Dioxide 23 mmol/L (22-29); Chloride 103 mmol/L (96-108); Creatinine Clr Calc Pharmacy 252.7; Estimated Glomerular Filt Rate > 60; Glucose Random 78 mg/dL (60-115); Potassium 3.9 mmol/L (3.3-5.1); Sodium 136 mmol/L (135-145); Total Protein 5.1 g/dL (6.5-8.0)
[2024-09-28 07:51] VITALS: BP 138/62; PULSE 71; RESP 18; TEMP 36.7; O2SAT 93
[2024-09-28 08:29] LABS: Albumin Peritoneal Fluid 0.5; LDH Peritoneal Fluid 58
[2024-09-28 08:30] LABS: Amylase Peritoneal Fluid 6; Glucose Peritoneal Fluid 95
[2024-09-28 08:32] LABS: pH Peritoneal Fluid 7.53
[2024-09-28] MEDS: Thiamine HCL 100 MG TABLET PO (09:19)
[2024-09-28] MEDS: rifAXIMin 550 MG TABLET PO ×2 (09:19→20:13)
[2024-09-28] MEDS: Multivitamin TABLET 1 TAB PO (09:19)
[2024-09-28] MEDS: Buprenorphine/Naloxone 8/2 mg FILM 1 FILM SUBLINGUAL (09:20)
[2024-09-28] MEDS: Magnesium Oxide 400 MG TABLET PO (09:20)
[2024-09-28] MEDS: Gabapentin 100 MG CAPSULE PO ×2 (09:20→20:12)
[2024-09-28] MEDS: Lactulose 20 GM/30 ML SOLUTION 30 GM PO ×2 (09:20→20:12)
[2024-09-28] MEDS: Zinc Sulfate 220 MG CAPSULE PO (09:20)
[2024-09-28] MEDS: Folic Acid 1 MG TABLET PO (09:20)
[2024-09-28] MEDS: 0.9 % Sodium Chloride Flush 3 ML SYRINGE IVFLUSH ×3 (09:21→20:26)
[2024-09-28 12:00] VITALS: BP 132/74; PULSE 74; RESP 18; TEMP 36.9; O2SAT 95
[2024-09-28] MEDS: LORazepam 1 MG TABLET PO (13:36)
--- NOTE | 2024-09-28 14:44 | P.PNIM_ITS ---
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 Still jaundice No longer having shortness of breath no chest pain, abd pain, nausea or vomiting No pain at paracentesis in Having frequent bowel movements Review of Systems Review of Systems: Yes all other systems are reviewed and are negative Physical Exam 2 Vital Signs: Vital Signs: Last Vital Signs Temp 98.4 F 09/28/24 12:00 Pulse 74 09/28/24 12:00 Resp 18 09/28/24 12:00 BP 132/74 09/28/24 12:00 Pulse Ox 95 09/28/24 12:00 O2 Del Method Room Air 09/28/24 12:00 BMI result Body Mass Index 37.9 General: AOx3, no acute distress. Encephalopathy improved Resp: CTA bilaterally CVS: S1, S2, RRR GI: +BS, NT, mild distention. No erythema or active bleeding from paracentesis site Skin: Warm, dry Neuro: Cranial nerves II-XII grossly intact bilaterally. Motor grossly intact bilaterally Extremities: No lower extremity edema Psych: quirky personality, good insight, hard to keep focused Objective Data Active Medications Acetaminophen (Acetaminophen 325 Mg Tablet) 650 mg PO Q6H PRN PRN Reason: Pain, Mild 1-3,fever,headache Albuterol/Ipratropium (Albuterol/Iprat 2.5/0.5mg 3 Ml Ampul.Neb) 3 ml INHALE RQ4H PRN PRN Reason: Shortness of Breath/Wheezing Buprenorphine/Naloxone (Buprenorphine/Naloxone 8/2 Mg Film) 1 film SUBLINGUAL DAILY [facility] Last Admin: 09/28/24 09:20 Dose: 1 film Documented By: ERMELINDA Calcium Carbonate (Calcium Carbonate 750 Mg Tab.Chew) 750 mg PO Q4H PRN PRN Reason: Heartburn Ceftriaxone Sodium (Ceftriaxone Sodium 1 Gm Vial) 1 gm IVPUSH Q24H [facility] Last Admin: 09/27/24 18:00 Dose: 1 gm Documented By: ERMELINDA Enoxaparin Sodium (Enoxaparin Sodium 40 Mg/0.4 Ml Syringe) 40 mg SUBCUT Q24H [facility] On Hold: 09/26/24 23:35 Last Admin: 09/26/24 23:49 Dose: Not Given Documented By: KAERN Non-Admin Reason: held per order Folic Acid (Folic Acid 1 Mg Tablet) 1 mg PO DAILY [facility] Last Admin: 09/28/24 09:20 Dose: 1 mg Documented By: ERMELINDA Gabapentin (Gabapentin 100 Mg Capsule) 100 mg PO BID [facility] Last Admin: 09/28/24 09:20 Dose: 100 mg Documented By: ERMELINDA Hydroxyzine HCl (Hydroxyzine Hcl 25 Mg Tablet) 25 mg PO Q6H PRN PRN Reason: Anxiety Lactulose (Lactulose 20 Gm/30 Ml Solution) 30 gm PO TID [facility] Last Admin: 09/28/24 09:20 Dose: 30 gm Documented By: ERMELINDA Magnesium Hydroxide (Milk Of Magnesia 30 Ml Oral.Susp) 30 ml PO DAILY PRN PRN Reason: Constipation Magnesium Oxide (Magnesium Oxide 400 Mg Tablet) 400 mg PO DAILY [facility] Last Admin: 09/28/24 09:20 Dose: 400 mg Documented By: ERMELINDA Melatonin (Melatonin 3 Mg Tablet) 6 mg PO BEDTIME PRN PRN Reason: Insomnia Last Admin: 09/27/24 21:12 Dose: 6 mg Documented By: JESUS Multivitamins/Vitamin C (Multivitamin Tablet) 1 tab PO DAILY [facility] Last Admin: 09/28/24 09:19 Dose: 1 tab Documented By: ERMELINDA Ondansetron HCl (Ondansetron Hcl 4 Mg/2 Ml Vial) 4 mg IVPUSH Q8H PRN PRN Reason: Nausea and Vomiting Rifaximin (Rifaximin 550 Mg Tablet) 550 mg PO BID [facility] Last Admin: 09/28/24 09:19 Dose: 550 mg Documented By: ERMELINDA Senna (Sennosides 8.6 Mg Tablet) 17.2 mg PO BEDTIME [facility] Last Admin: 09/27/24 21:10 Dose: 17.2 mg Documented By: JESUS Sodium Chloride (0.9 % Sodium Chloride Flush 3 Ml Syringe) 3 ml IVFLUSH QSHIFT [facility] Last Admin: 09/28/24 09:21 Dose: 3 ml Documented By: ERMELINDA Thiamine HCl (Thiamine Hcl 100 Mg Tablet) 100 mg PO DAILY [facility] Last Admin: 09/28/24 09:19 Dose: 100 mg Documented By: ERMELINDA Zinc Sulfate (Zinc Sulfate 220 Mg Capsule) 220 mg PO DAILY [facility] Last Admin: 09/28/24 09:20 Dose: 220 mg Documented By: ERMELINDA Labs 09/28/24 06:31 09/28/24 06:31 Labs: Laboratory Results - last 24 hr 09/27/24 09/28/24 14:30 06:31 MCV 103.1 H MCH 34.8 H MCHC 33.8 RDW 15.5 Plt Count 211 MPV 10.1 Absolute Nucleated RBC 0.000 Nucleated RBC % (auto) 0.0 Anion Gap 14 Estim Creat Clear Calc 252.7 Estimated GFR > 60 Random Glucose 78 Calcium 8.4 Total Bilirubin 19.3 H AST 74 H ALT 16 Alkaline Phosphatase 152 H Ammonia 67 H Total Protein 5.1 L Albumin 2.2 L Peritoneal pH 7.53 Peritoneal WBC 0.147 Peritoneal RBC < 0.002 Periton Neutrophils 11 Periton Lymphocytes 33 Peritoneal Monocytes 48 Peritoneal Other Cells 8 Peritoneal Tot Protein 1.0 Peritoneal Albumin 0.5 Peritoneal LDH 58 Peritoneal Glucose 95 Peritoneal Amylase 6 Microbiology Microbiology Results: Microbiology 09/27/24 14:30 Gram Stain - Final Abdominal Fluid Anaerobic Culture - Preliminary No growth to date. Body Fluid Culture - Preliminary No growth to date. 09/26/24 Unknown Urine Culture - Final Urine clean catch - Clean Catch Midstream Escherichia coli Assessment and Plan (1) Abdominal ascites: Status: Acute (2) Acute hepatic encephalopathy: Status: Acute (3) UTI (urinary tract infection): Status: Acute (4) Opioid use disorder, severe, in sustained remission: Status: Acute Plan 53-year-old female with acute metabolic encephalopathy secondary to end-stage liver disease secondary to alcohol use with moderate ascites Metabolic encephalopathy with end-stage liver disease secondary to alcohol abuse -GI consult: MRI liver protocol today -Mental status has improving but labile. nursing reports throughout day that pt may be encephalopathic again. -continue lactulose 30 g t.i.d. and rifaximin 550 mg b.i.d. -ammonia 102, 68, 67 now -last etoh 2 months ago per pt -Trend CMP Moderate ascites -paracentesis yesterday, fluid analysis pending -Spironolactone -PRN Lasix -Monitor electrolytes -Albumin levels stable, low - ceftraixone for SBP prophylaxis UTI - culture + ecoli - continue ceftrtiaxone Patient on Suboxone for opioid use disorder -Suboxone 4mg daily DVT prophylaxis: Lovenox after paracentesis, pneumoboots currently PPI prophylaxis: Protonix IV Full Code Continued need for admission due to metabolic encephalopathy, ascites Quality Stroke Does the patient have a stroke diagnosis?: No Reason for No Anti-thrombotic by Day Two: N/A - Med Ordered VTE Prior VTE?: No VTE Risk Level:: Medical - moderate - high VTE Device Contraindication: N/A - Device Ordered VTE Drug Contraindication: N/A - Med Ordered
--- NOTE | 2024-09-28 15:04 | MHC.CM.PN ---
Per Provider Patient states that she is not feeling as well as she was earlier today. She is requesting discharge to STR. Discharge plan was home with resumption of home services. Provider has ordered a PT eval for STR. Referrals have been sent per pt preferences. DP STR via BLS. Pending PT evaluation with STR recommendations. Patient will transport via BLS.
[2024-09-28] MEDS: gadobutroL 10 ML VIAL IVPUSH ×2 (15:35→15:38)
[2024-09-28 15:49] VITALS: BP 103/59; PULSE 73; RESP 14; TEMP 37.3; O2SAT 96
--- NOTE | 2024-09-28 18:19 | PC.NURSE ---
Pt went to MRI for scan w IV contrast. R UA U.S guided IV intact, reinforced for MRI procedure. MRI reported it wasn't working properly and placed a second IV Left AC -Pt returned to room after MRI and pulled out the L AC IV that MRI had placed. Unable to explain why. Will monitor R AC IV and reassess patency.
[2024-09-28] MEDS: cefTRIAXone sodium 1 GM VIAL IVPUSH (18:27)
[2024-09-28 19:39] VITALS: BP 100/58; PULSE 76; RESP 16; TEMP 36.9; O2SAT 96
[2024-09-28] MEDS: Sennosides 8.6 MG TABLET 17.2 MG PO (20:13)
[2024-09-28] MEDS: hydrOXYzine HCL 25 MG TABLET PO (20:14)
[2024-09-28 23:17] VITALS: BP 105/66; PULSE 77; RESP 16; TEMP 36.3; O2SAT 92
[2024-09-29 04:00] VITALS: BP 100/60; PULSE 88; RESP 18; TEMP 36.3; O2SAT 94
[2024-09-29 06:00] VITALS: BMI 38.2
[2024-09-29 07:30] VITALS: BP 105/60; PULSE 72; RESP 17; TEMP 36.9; O2SAT 96
[2024-09-29 09:02] LABS: Hematocrit 34.4 % (37.0-47.0); Hemoglobin 11.5 g/dl (12.0-16.0); Mean Corpuscular HGB Conc 33.4 g/dl (31.0-35.0); Mean Corpuscular Hemoglobin 34.3 pg (27.0-33.0); Mean Corpuscular Volume 102.7 fL (80.0-98.0); Mean Platelet Volume 10.1 fL (9.4-12.3); Platelet Count 232 X10*3/uL (160-400); Red Blood Count 3.35 X10*6/uL (4.20-5.50); Red Cell Distribution Width 15.2 % (11.0-16.0); White Blood Count 14.6 X10*3/uL (4.8-10.8)
[2024-09-29 09:11] LABS: Ammonia 57 umol/L (13-55)
[2024-09-29 09:20] LABS: Alanine Aminotransferase 18 U/L (0-31); Albumin Level 2.5 g/dL (3.5-5.0); Alkaline Phosphatase 128 U/L (39-117); Anion Gap 11 (12-20); Aspartate Amino Transferase 70 U/L (5-31); Bilirubin Total 19.5 mg/dL (0.0-1.0); Blood Urea Nitrogen 5 mg/dL (9-16); Calcium 8.2 mg/dL (8.4-10.2); Carbon Dioxide 25 mmol/L (22-29); Chloride 97 mmol/L (96-108); Creatinine Clr Calc Pharmacy 190.1; Estimated Glomerular Filt Rate > 60; Glucose Random 92 mg/dL (60-115); Potassium 3.4 mmol/L (3.3-5.1); Sodium 130 mmol/L (135-145); Total Protein 5.7 g/dL (6.5-8.0)
[2024-09-29] MEDS: Lactulose 20 GM/30 ML SOLUTION 30 GM PO ×2 (09:26→15:56)
[2024-09-29] MEDS: Buprenorphine/Naloxone 8/2 mg FILM 1 FILM SUBLINGUAL (09:26)
[2024-09-29] MEDS: 0.9 % Sodium Chloride Flush 3 ML SYRINGE IVFLUSH (09:26)
[2024-09-29] MEDS: Thiamine HCL 100 MG TABLET PO (09:28)
[2024-09-29] MEDS: rifAXIMin 550 MG TABLET PO (09:28)
[2024-09-29] MEDS: Folic Acid 1 MG TABLET PO (09:28)
[2024-09-29] MEDS: Zinc Sulfate 220 MG CAPSULE PO (09:28)
[2024-09-29] MEDS: Gabapentin 100 MG CAPSULE PO (09:28)
[2024-09-29] MEDS: Multivitamin TABLET 1 TAB PO (09:28)
[2024-09-29] MEDS: Magnesium Oxide 400 MG TABLET PO (09:28)
[2024-09-29 11:29] VITALS: BP 92/63; PULSE 71; RESP 17; TEMP 36.9; O2SAT 94
--- NOTE | 2024-09-29 13:16 | MHC.CM.PN ---
Addendum entered by Marcie Hdz 09/29/24 13:36: [facility] CAN TRANSPORT AT 1730 HOURS Addendum entered by Marcie Hdz 09/29/24 13:33: PT AND UNABLE TO RECALL THE NAME OF THE VNA SHE WAS SET UP WITH CM CALLED PTS PCP OFFICE [phone], THEY CONFIRM THE [facility] Original Note: CM MET WITH PT WHO STATES SHE IS NOT GOING TO STR SHE SAYS SHE IS GOING HOME AND HAS CARE SHE REPORTS HER ASSISTS WHEN HE IS NOT WORKING AND HER NEPHEW ASSISTS THE REST OF THE TIME SHE ALSO HAS DME INCLUDING WALKERS AND A WHEEL CHAIR CM SPOKE TO PTS NELLA [phone], WHO CONFIRMS THE PTS NEPHEW IS NOW LIVING WITH THEM AND SHE HAS DME HE DID ASK ABOUT VNA AND A REFERRAL TO [facility], WHICH WILL BE MADE PT WILL DC VIA [facility]
--- NOTE | 2024-09-29 13:31 | P.PNGI_ITS ---
Subjective Subjective Date of Service: 09/29/24 Interval History: Seen at bedside. Report feeling well. Mental status continues to fluctuate. Para without SBP but low alb and TP. Meets criteria for SBP prophylaxis. Bili climbing up. INR n/a. Critical Care Time (minutes): 0 Physical Exam 2 Vital Signs: Vital Signs: Last Vital Signs Temp 98.5 F 09/29/24 11:29 Pulse 71 09/29/24 11:29 Resp 17 09/29/24 11:29 BP 92/63 09/29/24 11:29 Pulse Ox 94 09/29/24 11:29 O2 Del Method Room Air 09/29/24 11:29 BMI result Body Mass Index 38.2 grossly yellow abd soft, nontender, distended nonpitting lower extremity edema A/Ox3, asterixis +++ Objective Data Labs 09/29/24 08:50 09/29/24 08:50 Labs: Laboratory Results - last 24 hr 09/29/24 08:50 WBC 14.6 H RBC 3.35 L Hgb 11.5 L Hct 34.4 L MCV 102.7 H MCH 34.3 H MCHC 33.4 RDW 15.2 Plt Count 232 MPV 10.1 Absolute Nucleated RBC 0.000 Nucleated RBC % (auto) 0.0 Sodium 130 L Potassium 3.4 Chloride 97 Carbon Dioxide 25 Anion Gap 11 L BUN 5 L Creatinine 0.40 L Estim Creat Clear Calc 190.1 Estimated GFR > 60 Random Glucose 92 Calcium 8.2 L Total Bilirubin 19.5 H AST 70 H ALT 18 Alkaline Phosphatase 128 H Ammonia 57 H Total Protein 5.7 L Albumin 2.5 L Microbiology Microbiology Results: Microbiology 09/27/24 14:30 Abdominal Fluid Gram Stain - Final 09/27/24 14:30 Abdominal Fluid Anaerobic Culture - Preliminary No growth to date. 09/27/24 14:30 Abdominal Fluid Body Fluid Culture - Final No growth after 2 days 09/26/24 Unknown Urine clean catch - Clean Catch Midstream Urine Culture - Final Escherichia coli Procedures Date of Service Date of Service: 09/29/24 Progress Note: A&P Assessment and plan (1) Alcohol use disorder, severe, dependence: Status: Acute (2) Alcoholic hepatitis: Status: Acute (3) Abdominal ascites: Status: Acute (4) Cirrhosis of liver: Status: Acute Plan Persistently rising bili is worrisome for low likelihood of return of liver function. To recall, pt was initially seen for AH > 30 days ago. Pt unable to demonstrate clear insight into overall prognosis. Subjectively feels well. Plan: - Recommend palliative care consultation - Not deemed to be transplant candidate based on discussion with [facility] Hep at prev admission - SBP prophylaxis with cipro or bactrim once daily - Cont lactulose 30 ml TID + Rifaximin 550 BID + Zinc supplementation - Nutritional eval. Consider adding protein shakes TID - Outpt follow up will be arranged. Pt prefers to follow up with Dr Jefferson Time Spent With Patient Time: Total time managing care of this patient today ____ minutes. Quality Stroke Does the patient have a stroke diagnosis?: No Reason for No Anti-thrombotic by Day Two: N/A - Med Ordered VTE Prior VTE?: No VTE Risk Level:: Medical - moderate - high VTE Device Contraindication: N/A - Device Ordered VTE Drug Contraindication: N/A - Med Ordered
--- NOTE | 2024-09-29 14:14 | P.DS_ITS ---
DS: Providers Provider Date of Service: 09/29/24 Date of admission: 09/26/24 19:37 Date of discharge: 09/29/24 Primary care physician: Unknown Physician Consults: 09/26/24 23:08 Consult to Gastroenterology Routine Consulting Provider: Dwaine Singh Reason for consultation: Encephalopathy, moderate ascites, end-stage liver disease Has provider been notified: No 09/27/24 15:07 Consult to Psychiatry Routine Consulting Provider: [facility] [place] [facility] Reason for consultation: anxiety Has provider been notified: No DS: Diagnosis Discharge Diagnosis (1) Alcohol use disorder, severe, dependence: Status: Acute (2) Alcoholic hepatitis: Status: Acute (3) Abdominal ascites: Status: Acute (4) Cirrhosis of liver: Status: Acute DS: Summary Hospital Course Hospital Course: Admission H&P: Pt is a 53 yo female with PMH hypertension, ETOH abuse in remission, ETOH hepatitis, thrombocytopenia, Wernicke's encephalopathy, gastric bypass, opioid use disorder on Suboxone, encephalopathy, hyponatremia, ,depression with anxiety presents to the emergency room from home increased encephalopathy and evidence of jaundiced as witnessed by patient's home care nurse. Patient was very slow to respond when answering questions. Patient denied any alcohol use over the last 7 weeks. It was indicated by pharmacist for medication reconciliation note that patient may have had twice the amount of Suboxone per day than prescribed which may be contributing to her alteration in mental status. Ammonia was 102, patient received 1 dose of lactulose in the ED. patient's potassium 5.3 and sodium was normal at 136. Patient's total bilirubin 20.3, direct bilirubin 12.7, AST 82, ALT 20, alk-phos 119, BNP 313, albumin 2.4, lipase 10. Patient had been transferred to room 371 and was seen and examined for admission. Patient currently awake alert and somewhat histrionic regarding the fact that she is not going home. Patient states that she was told by a PA in the ED that she would be leaving 1st thing in the morning. This junior underwriter explained the plan for treatment including paracentesis with IR and GI consultation. In addition we will adding lactulose 3 times a day to help with patient's ammonia level. Education provided on end-stage liver disease but patient's insight is poor. Patient is not requesting any Suboxone at this time. Patient actually more interested in lowering her Suboxone dose of it is causing damage further to her liver. CT scan of the abdomen notes moderate ascites and splenorenal varices but normal spleen size. No evidence of bowel edema or dilatation. Evidence of cystitis also seen. UA correlates to possible UTI. Patient is started on ceftriaxone empirically for UTI and SBP. Patient currently has a leukocytosis of 12.8, normal platelet count of 175K, is afebrile with stable hemodynamics. Patient has been able to void on her own so currently we do not require a Prieto placement. Patient is currently able to protect her airway. Hospital course: Patient was admitted for acute hepatic encephalopathy secondary to decompensated alcoholic cirrhosis. On admission ammonia levels up to 102, gradually decreasing down to 57 today on lactulose t.i.d. and rifaximin b.i.d.. Mental status has been improving however patient is still encephalopathic. She is S/P paracentesis with minimal fluid drainage due to discomfort, fluid analysis negative thus far for SBP. Cytology negative. She has been on ceftriaxone rowan y for SBP prophylaxis as well as E coli UTI. Uncomplicated UTI treatment has been completed. The patient has been evaluated by Gastroenterology who recommended and abdominal MRI with liver protocol which showed cirrhosis of the liver with evidence of portal hypertension, moderate amount of upper abdominal ascites, no liver masses identified. Bilirubin has been elevated, currently 19.5 and rising due to her advancing cirrhosis. The patient has had a discussion with Gastroenterology regarding her poor prognosis with decompensated cirrhosis. Recommendations are to continue lactulose t.i.d., rifaximin b.i.d. for encephalopathy and SBP prophylaxis and start spironolactone 50 mg daily. She would like to go home with VNA services which she already receives with the plan for hospice care as her disease progresses. Status at Discharge Functional status at discharge: independent ambulation Overall status at discharge: patient is progressing back to baseline Time Attestation Discharge Coordination Time (in mins): 45 Quality: Safe Use of Opioids Does Pt have an Active Cancer Diagnosis on the Problem List?: No Quality: Stroke Does the patient have a stroke diagnosis?: No Physical Exam Vital Signs: Vital Signs: Last Vital Signs Temp 98.5 F 09/29/24 11:29 Pulse 71 09/29/24 11:29 Resp 17 09/29/24 11:29 BP 92/63 09/29/24 11:29 Pulse Ox 94 09/29/24 11:29 O2 Del Method Room Air 09/29/24 11:29 BMI result Body Mass Index 38.2 General: AOx3, still some encephalopathy, no acute distress Resp: CTA bilaterally CVS: S1, S2, RRR GI: +BS, NT, no distention, obsese abdomen Skin: Warm, dry. jaundice Neuro: Cranial nerves II-XII grossly intact bilaterally. Motor grossly intact bilaterally. +asterixis Extremities: No pitting edema Psych: pleasant, coooperative, encephalopathic DS: Data Data Completed and Pending Completed studies during hospitalization [Text1]: Pending at discharge 09/27/24 14:55 Cytology [PTH] Routine Procedures Detoxification Services for Substance Abuse Treatment (08/16/24) Drainage of Right Upper Arm Subcutaneous Tissue and Fascia, Open Approach (05/13/23) Transfusion of Nonautologous Red Blood Cells into Peripheral Vein, Percutaneous Approach (08/16/24) Labs on day of discharge: Laboratory Results - last 24 hr 09/29/24 08:50 WBC 14.6 H RBC 3.35 L Hgb 11.5 L Hct 34.4 L MCV 102.7 H MCH 34.3 H MCHC 33.4 RDW 15.2 Plt Count 232 MPV 10.1 Absolute Nucleated RBC 0.000 Nucleated RBC % (auto) 0.0 Sodium 130 L Potassium 3.4 Chloride 97 Carbon Dioxide 25 Anion Gap 11 L BUN 5 L Creatinine 0.40 L Estim Creat Clear Calc 190.1 Estimated GFR > 60 Random Glucose 92 Calcium 8.2 L Total Bilirubin 19.5 H AST 70 H ALT 18 Alkaline Phosphatase 128 H Ammonia 57 H Total Protein 5.7 L Albumin 2.5 L Preliminary micro results at discharge 09/27/24 14:30 Anaerobic Culture - Preliminary Abdominal Fluid No growth to date. Discharge Plan Discharge Anticipated Discharge Date/Time: 09/29/24 14:15 Patient Disposition: Home Health Service Discharge Diagnosis: Hepatic encephalopathy secondary to decompensated cirrhosis with ascites Referrals: Physician,Unknown J [Primary Care Provider, Medical] - 1 Week Discharge Medications: New zinc sulfate [Zinc-220] 50 mg zinc (220 mg) Capsule 220 mg PO DAILY Qty: 30 0RF spironolactone 50 mg tablet 50 mg PO DAILY Qty: 90 0RF lactulose 10 gram/15 mL solution 15 ml PO TID Qty: 1350 2RF Continued hydroxyzine HCl 25 mg Tablet 25 mg PO Q6H PRN (Reason: Anxiety) Qty: 56 0RF multivitamin Tablet 1 tab PO DAILY Xifaxan 550 mg tablet 550 mg PO BID buprenorphine-naloxone 8-2 mg film 1 film sublingual DAILY gabapentin 100 mg capsule 100 mg PO BID magnesium oxide 400 mg magnesium tablet 400 mg PO DAILY thiamine HCl (vitamin B1) 100 mg capsule 100 mg PO DAILY folic acid 1 mg tablet 1 mg PO DAILY Discharge Orders: Discharge Order (Routine); Ordered 09/29/24 Ordered By: Agata Shaw Diet: Low salt diet Activity on Discharge: As tolerated Stand Alone Forms: Patient Portal Discharge page Print Language: Romanian Care Plan Goals: Recovery from acute hepatic encephalopathy Decompensated cirrhosis management Alcohol cessation Health Concerns: Hepatic encephalopathy secondary to decompensated liver cirrhosis secondary to alcohol abuse Plan of Treatment: continue lactulose 3x daily for hepatic encephalopathy continue rifaximin 2x daily for hepatic encephalopathy and SBP prophylaxis start spironolactone 50mg daily for ascites follow up with gastroenertology within 1-2 weeks follow up with PCP within 1 week for repeat labs Assessment: see above
[2024-09-29 15:25] VITALS: BP 117/70; PULSE 76; RESP 17; TEMP 36.6; O2SAT 98
[2024-09-30 16:19] LABS: Vitamin B1 7 nmol/L (8-30)
--- NOTE | 2024-10-16 20:12 | P.CDIM_ITS ---
PROVIDER RESPONSE TEXT: To clarify, the appropriate diagnosis supported by the clinical indicators: Obesity Due to excess calories QUERY TEXT: PHYSICIAN'S DOCUMENTATION REQUEST Date of Query: 09/28/2024 10:47 AM EDT Patient Name: Beverley Mims Admit Date: 09/26/2024 Dear Agata Shaw PA-C, A review of the medical record indicates additional documentation may be needed. Please review below and update the documentation accordingly. Clinical Indicators: Height: ( ) 5'5 Weight: ( ) 103.4 kg BMI: ( ) 40.8 Other Clinical Notes Supporting Significance of the BMI: no nutritional assessment If possible, please provide an associated diagnosis related to the abnormal BMI, such as: Overweight Obesity Due to excess calories Obesity Drug induced Obesity Due to other cause Specify the other cause Severe or Morbid Obesity With alveolar hypoventilation Severe or Morbid Obesity Without alveolar hypoventilation BMI is not significant Other (explain) Clinically unable to determine (explain) Thank you, Rosalba Barrios RN Use of terms such as suspected, likely, concern for, or probable (associated with a specific diagnosis that is being evaluated, monitored, or treated as if it exists) are acceptable and can be coded in the inpatient setting, when documented at the time of discharge. Please use your independent medical judgment in providing your response. THIS QUERY IS PART OF THE PERMANENT MEDICAL RECORD
== END 2024-09-29 17:53 | disposition home health service (06) | DRG 280 ==
LOC: HO.ED 17:56 → HO.EDOVER 19:52 → HO.S3 20:34
PROVIDERS: Nurse Practitioner Family; Physician Assistant; Physician Assistant Medical; Admitting Provider Student in an Organized Health Care Education/Training Program; Emergency Provider Emergency Medicine; Visit Provider Physician Assistant
DX: K70.40 Alcoholic hepatic failure without coma (principal); K70.31 Alcoholic cirrhosis of liver with ascites; G93.41 Metabolic encephalopathy; E72.20 Disorder of urea cycle metabolism, unspecified; B96.20 Unspecified Escherichia coli [E. coli] as the cause of diseases classified elsewhere; K76.6 Portal hypertension; E66.01 Morbid (severe) obesity due to excess calories; Z68.38 Body mass index [BMI] 38.0-38.9, adult; F10.21 Alcohol dependence, in remission; K76.82 Hepatic encephalopathy; N39.0 Urinary tract infection, site not specified; F11.20 Opioid dependence, uncomplicated; Z87.891 Personal history of nicotine dependence; Z98.84 Bariatric surgery status; Z79.899 Other long term (current) drug therapy
CPT/HCPCS: 36415; 49083; 70450; 71045; 74177; 74183; 80053; 80307; 81001; 81003; 82042; 82140; 82150; 82248; 82945; 83010; 83615; 83690; 83735; 83880; 83986; 84157; 84425; 85025; 85027; 85610; 87070; 87073; 87086; 87088; 87116; 87186; 87205; 87206; 88112; 88305; 89051; 93005; 97162; 99285; A9585; C1729; C1751; J0696; J2003; J3475; Q9967

== ENCOUNTER → 2024-09-26 15:10 | Outpatient (BNV) | payer BC, MEDICAID, SELFPAY | PROVIDERS: Emergency Provider Emergency Medicine; Visit Provider Radiology Diagnostic Radiology | DX: R16.0 Hepatomegaly, not elsewhere classified (principal); R18.8 Other ascites; R41.82 Altered mental status, unspecified; R06.02 Shortness of breath | CPT/HCPCS: 70450; 71045; 74177 ==

== ENCOUNTER → 2024-09-26 15:20 | Outpatient (BNV) | payer BC, MEDICAID, SELFPAY | PROVIDERS: Admitting Provider Student in an Organized Health Care Education/Training Program; Emergency Provider Emergency Medicine; Visit Provider Internal Medicine | DX: R94.31 Abnormal electrocardiogram [ECG] [EKG] (principal); R41.82 Altered mental status, unspecified | CPT/HCPCS: 93010 ==

== ENCOUNTER 2024-09-26 19:37 | Outpatient (BNV) | payer BC, MEDICAID, SELFPAY | END 2024-09-27 09:40 | PROVIDERS: Admitting Provider Student in an Organized Health Care Education/Training Program; Emergency Provider Emergency Medicine | DX: R18.8 Other ascites (principal) | CPT/HCPCS: 49083 ==

== ENCOUNTER 2024-09-26 19:37 | Outpatient (BNV) | payer BC, MEDICAID, SELFPAY | END 2024-09-28 14:13 | PROVIDERS: Admitting Provider Student in an Organized Health Care Education/Training Program; Emergency Provider Emergency Medicine; Visit Provider Radiology Diagnostic Radiology | DX: K74.60 Unspecified cirrhosis of liver (principal); R18.8 Other ascites | CPT/HCPCS: 74183 ==

== ENCOUNTER → 2024-09-26 19:37 | Outpatient (BNV) | payer BC, MEDICAID, SELFPAY | PROVIDERS: Admitting Provider Student in an Organized Health Care Education/Training Program; Emergency Provider Emergency Medicine; Visit Provider Nurse Practitioner Family | DX: F10.20 Alcohol dependence, uncomplicated (principal); K70.10 Alcoholic hepatitis without ascites; R18.8 Other ascites; K74.60 Unspecified cirrhosis of liver | CPT/HCPCS: 99239 ==

== ENCOUNTER → 2024-09-26 19:37 | Outpatient (BNV) | payer BC, MEDICAID, SELFPAY | PROVIDERS: Admitting Provider Student in an Organized Health Care Education/Training Program; Emergency Provider Emergency Medicine; Visit Provider Internal Medicine | DX: F10.20 Alcohol dependence, uncomplicated (principal); K70.10 Alcoholic hepatitis without ascites; R18.8 Other ascites; K74.60 Unspecified cirrhosis of liver | CPT/HCPCS: 99233 ==

== ENCOUNTER → 2024-10-07 21:32 | Outpatient (BNV) | payer BC, MEDICAID, SELFPAY | PROVIDERS: Emergency Provider Emergency Medicine; Visit Provider Radiology Diagnostic Radiology | DX: R06.02 Shortness of breath (principal) | CPT/HCPCS: 71045 ==

== ENCOUNTER 2024-10-07 21:41 | Emergency (ER) | payer BC, MEDICAID, SELFPAY ==
--- NOTE | ~2024-10-07 | CT_ITS ---
CLINICAL HISTORY: Abd Distention; SOB; End Stage Liver Disease CT abdomen and pelvis with contrast Comparison: MR/SR - MR ABDOMEN WO/W CON - 09/28/24 13:[address] - CT ABDOMEN PELVIS W IV CON - 09/26/24 17:27 EDT Findings: The lung bases are clear. Cirrhosis with heterogeneous attenuation of the liver, similar to the prior CT. Cholecystectomy. CBD measures 15 mm, similar to prior. Atrophic pancreas. Spleen and adrenal glands are within normal limits. No hydronephrosis. Symmetric contrast enhancement of the kidneys. Postsurgical changes in the stomach. No bowel obstruction, pneumatosis or pneumoperitoneum. Moderate abdominopelvic ascites. Anasarca. Intraluminal air in the bladder, correlate for recent catheterization. Uterus is within normal limits. Degenerative changes of the spine. Scoliosis. No acute fracture. IMPRESSION: Cirrhosis with moderate abdominopelvic ascites. This document has been electronically signed by: Polly Levine MD on 10/08/2024 01:15:57
--- NOTE | ~2024-10-07 | XR_ITS ---
CLINICAL HISTORY: SOB 1 view chest x-ray Comparison: CR/SR - XR CHEST 1V - 09/26/24 15:11 EDT Findings: Low lung volumes with mild right basilar atelectasis. No consolidation, pleural effusion or pneumothorax. Heart size is normal. Bilateral glenohumeral osteoarthritis. No acute fracture. IMPRESSION: 1. No acute cardiopulmonary findings. This document has been electronically signed by: Polly Levine MD on 10/07/2024 23:03:14
[2024-10-07 21:48] VITALS: BP 113/69; PULSE 96; RESP 18; TEMP 37.4; O2SAT 99
--- NOTE | 2024-10-07 21:48 | ECG_ITS ---
Test Reason : SOB Blood Pressure : */* mmHG Vent. Rate : 93 BPM Atrial Rate : 93 BPM P-R Int : 140 ms QRS Dur : 86 ms QT Int : 352 ms P-R-T Axes : 21 58 155 degrees QTcB Int : 437 ms Normal sinus rhythm Nonspecific T wave abnormality Abnormal ECG When compared with ECG of 26-Sep-2024 15:50, Nonspecific T wave abnormality, worse in Lateral leads QT has shortened Referred By: Generic ED Physician Electronically Signed By: JAZZY LYNCH MD
[2024-10-07 22:03] VITALS: BP 118/82; PULSE 104; O2SAT 98; BMI 35.8
[2024-10-07 22:08] LABS: MANUAL DIFF FLAG NO
[2024-10-07 22:10] LABS: Hematocrit 29.9 % (37.0-47.0); Hemoglobin 10.3 g/dl (12.0-16.0); Imm Gran Abs Auto 0.06 X10*3/uL (0.00-0.03); Imm Gran Pct Auto 0.4 % (0.0-0.4); Lymphocytes Absolute Auto 1.0 X10*3/uL (1.2-4.9); Mean Corpuscular HGB Conc 34.4 g/dl (31.0-35.0); Mean Corpuscular Hemoglobin 34.3 pg (27.0-33.0); Mean Corpuscular Volume 99.7 fL (80.0-98.0); NRBC Abs Auto 0.000 X10*3/uL (0.0-0.012); NRBC Pct Auto 0.0 /100WBC (0.0-0.2); Platelet Count 205 X10*3/uL (160-400); Red Blood Count 3.00 X10*6/uL (4.20-5.50); White Blood Count 13.8 X10*3/uL (4.8-10.8)
[2024-10-07 22:14] LABS: VBG HCO3 28 mmol/L (22-26); VBG O2 % Saturation 45.0 %
[2024-10-07 22:26] LABS: Alanine Aminotransferase 19 U/L (0-31); Albumin Level 2.4 g/dL (3.5-5.0); Alkaline Phosphatase 123 U/L (39-117); Anion Gap 13 (12-20); Aspartate Amino Transferase 76 U/L (5-31); Blood Urea Nitrogen 5 mg/dL (9-16); Calcium 8.3 mg/dL (8.4-10.2); Carbon Dioxide 25 mmol/L (22-29); Chloride 101 mmol/L (96-108); Creatinine Clr Calc Pharmacy 173.1; Estimated Glomerular Filt Rate > 60; Magnesium 1.8 mg/dL (1.6-2.6); Potassium 4.2 mmol/L (3.3-5.1); Sodium 135 mmol/L (135-145); Total Protein 5.8 g/dL (6.5-8.0)
[2024-10-07 22:26] LABS: Venous Blood Gas Refer to POC result
[2024-10-07 22:30] LABS: B Type Natriuretic Peptide 194 pg/mL (<100)
[2024-10-07 22:31] LABS: Troponin-I High Sensitivity 3.6 ng/L (<3.5-17.0)
--- NOTE | 2024-10-07 22:44 | ED.SOB ---
HPI - SOB/Dyspnea General Chief Complaint: Dyspnea Stated Complaint: sob abd pain , hx end stage renal Time Seen by Provider: 10/07/24 21:45 Source: patient and EMS Mode of arrival: EMS Limitations: no limitations History of Present Illness ED Provider: Henrán POND HPI Narrative: The patient is a 53-year-old female with history of alcoholism, liver cirrhosis with end-stage liver disease, UTI, abdominal ascites, anxiety, and remote opioid use disorder presenting to the ED for evaluation of worsening shortness of breath with inability to catch her breath. Patient reports when she breathes deeply it causes pressure/pain in her upper abdomen, limiting her breath. Patient reports she underwent a paracentesis 3 weeks ago at this facility for ascites. Patient reports since that time she has had worsening jaundice and recollection of fluid in her abdomen. The patient denies associated fever/chills, nausea, vomiting, chest pain, cough, hemoptysis, hematemesis, hematochezia, melena, or urinary symptoms. The patient arrives to the ED highly anxious, tearful. Patient states she has not drank alcohol in the last 3 months, since before her diagnosis of end-stage liver disease. The patient denies any recent fall or other blunt trauma. Related Data Home Medications ?Medication ?Instructions ?Recorded ?Confirmed folic acid 1 mg tablet 1 mg PO DAILY 06/02/24 09/26/24 thiamine HCl (vitamin B1) 100 mg 100 mg PO DAILY 06/02/24 09/26/24 capsule multivitamin 1 tab PO DAILY 08/16/24 09/26/24 buprenorphine 8 mg-naloxone 2 mg 1 film sublingual DAILY 09/26/24 09/26/24 sublingual film gabapentin 100 mg capsule 100 mg PO BID 09/26/24 09/26/24 magnesium oxide 400 mg PO DAILY 09/26/24 09/26/24 rifaximin 550 mg tablet (Xifaxan) 550 mg PO BID 09/26/24 09/26/24 Previous Rx's ?Medication ?Instructions ?Recorded hydroxyzine HCl 25 mg tablet 25 mg PO Q6H PRN Anxiety #56 tabs 05/17/24 lactulose 10 gram/15 mL oral 15 ml PO TID #1,350 mL 09/29/24 solution spironolactone 50 mg tablet 50 mg PO DAILY #90 tabs 09/29/24 zinc sulfate 50 mg zinc (220 mg) 220 mg (4.4 x 50 mg zinc (220 mg)) 09/29/24 capsule (Zinc-220) PO DAILY #30 caps chlordiazepoxide HCl 25 mg capsule 25 mg PO BID PRN anxiety #14 caps 10/08/24 Allergies Allergy/AdvReac Type Severity Reaction Status Date / Time No Known Allergies Allergy Verified 10/07/24 22:05 Review of Systems Review of Systems: Yes all other systems are reviewed and are negative PMFSH Past Medical History Medical History Alcoholic hepatitis Alcoholism Depression with anxiety Alcohol use disorder, severe, dependence Alcohol withdrawal hallucinosis Falls frequently Pedal edema Cellulitis Alcohol intoxication Korsakoff syndrome Thrombocytopenia Alcohol withdrawal syndrome Abscess of axilla, right Rash Encounter for monitoring Suboxone maintenance therapy Hypertension Opioid use disorder Alcohol abuse Surgical History Gastric bypass status for obesity History of total knee arthroplasty History of gastric surgery Family History Family History Father Lung cancer Social History Social History Household Members: Spouse Household Members Other:: 2 Housing: House Do you presently have visiting nurse or other home services: Yes Unable to assess alcohol history related to: Unknown Alcohol intake: former Comment: refuses alarm Patient Tobacco Use Status: Former Tobacco user Tobacco use type: Cigarette Years Smoked: 2 Second Hand Smoke Exposure: No Advance Directives Date on File: 09/01/24 service: No Current occupational status: employed Physical Exam Vital Signs: Vital Signs: Last Vital Signs Temp 97.9 F 10/08/24 06:35 Pulse 70 10/08/24 06:35 Resp 18 10/08/24 06:35 BP 96/48 L 10/08/24 06:35 Pulse Ox 97 10/08/24 06:35 O2 Del Method Room Air 10/08/24 06:35 O2 Flow Rate 4 10/08/24 01:33 BMI result Body Mass Index 35.8 CONSTITUTIONAL: The patient appears chronically ill, jaundiced, highly anxious, tearful, otherwise non-toxic, well nourished and in no acute distress. Vital signs as documented. HEAD: Atraumatic, normocephalic. EYES: EOMs grossly intact, pupils equal, icteric sclera, conjunctiva clear, no exudate. ENT: Nares patent, no discharge. Airway patent, no audible stridor, visible mucosa is pink and moist without noted lesions. NECK: Trachea is midline, no obvious masses or gross abnormalities. CHEST: Symmetric movement, normal appearance. LUNGS: LS present and CTAB, no w/r/r. Increased respiratory rate, otherwise Non-labored work of breathing. CARDIAC: Regular Rhythm, S1/S2 appreciated, no murmurs, rubs or gallops. ABDOMEN: Abdomen distended, but otherwise soft and non-tender x4 quadrants. : Deferred. EXTREMITIES: Normal tone, moves all extremities spontaneously without reported pain. No obvious acute injury or deformity noted. No pedal edema appreciated. No calf tenderness. NEURO: Alert and oriented x3, CN II-XII appear grossly intact. Cerebellar Functioning grossly intact. No obvious sensory or motor deficits. Speech clear and appropriate. PSYCH: Markedly anxious affect, tearful, otherwise appropriate eye contact, pressure speech, with appropriate response to questioning. No reported suicidality or homicidality. SKIN: Warm, dry, marked jaundice diffusely, normal turgor. No rashes noted. Course Course Course Narrative: Attending note, Dr. Tamez: I saw this patient with the physician assistant restaurant general manager. The patient had apparently presented complaining of a sense of shortness of breath and she thought it was related to her ascites. At the time that I saw her she had received a dose of oral diazepam and was feeling much better. Her sensation of shortness of breath had entirely resolved. The patient has significant LFT abnormalities but they seemed to be improving. A CT scan shows pockets of ascites, the largest of which is probably in the left lower quadrant. But on the whole the CAT scan did not show large volume ascites and the patient's physical exam is not really consistent with a large volume ascites. With the an ultrasound I was able to visualize a pocket of ascites fluid in the left lower quadrant but she has a fairly thick abdominal wall. She also says that the last time there was an attempt at paracentesis there was a lot of difficulty. I am not convinced that the patient's shortness of breath is related to her ascites. She does not have a tense abdomen. I suspect that her shortness of breath, which seemed to resolve entirely with a dose of diazepam, may be a manifestation of anxiety. She expressed a great deal of anxiety about her health. Ultimately it seems as though she is probably safe for discharge. She will be given a prescription for some chlordiazepoxide tablets that she may use to help with the anxiety over the weekend. If she is still feeling as if she might have significant ascites it would be better for her to be here during the week day when we have Interventional Radiology. However I do not feel there is a definite need for a therapeutic paracentesis tonight. She will therefore be discharged with instructions to follow up with her regular doctors including her executive sales assistant and to return if she feels worse. My suspicion for a pulmonary embolism in this patient is extremely low. Medications Administered Discontinued Medications Generic Name Dose Route Start Last Admin Trade Name Freq PRN Reason Stop Dose Admin Chlordiazepoxide HCl 50 mg 10/08/24 02:37 10/08/24 03:17 Chlordiazepoxide Hcl 25 Mg Capsule PO 10/08/24 02:38 50 mg ONCE ONE Administration Diazepam 5 mg 10/07/24 22:43 10/07/24 23:23 Diazepam 10 Mg/2 Ml Cartridge IVPUSH 10/07/24 22:44 5 mg STAT STA Administration Iohexol 100 ml 10/08/24 00:22 10/08/24 00:23 Iohexol 350 Mg/Ml 100 Ml Infus..Btl IV 10/08/24 00:23 100 ml ONCE ONE Administration Medical Decision Making Medical Decision Making [facility] Narrative: 10:52 PM 10/07/2024 (Jane POND): The patient is a 53-year-old female with history of end-stage liver disease secondary to alcoholism presenting to the ED for evaluation of worsening shortness of breath which causes increased pain in her upper abdomen with deep respiration limiting her breath. The patient denies associated fever/chills, nausea, vomiting, chest pain, or recent sick contacts. The patient's exam reveals clear lung sounds bilaterally, there is moderate abdominal distention but no abdominal tenderness, patient has a mildly elevated white blood cell count however this is improved compared to most recent testing, patient is afebrile, no concern for SBP at this time. The patient's laboratory evaluation shows mild anemia consistent with baseline, platelet count is 205, chemistry shows no evidence of electrolyte abnormality or PHIL, there is markedly elevated T bilirubin of 15.5 which is actually improved compared to previous, mildly elevated AST and alkaline phosphatase. BNP is 194. Viral swab is negative. Troponin is negative. The patient will be treated for her anxiety, and we will obtain a CT abdomen and pelvis to evaluate for ascites. We will add on ethanol and ammonia levels. 1:27 AM 10/08/2024 (Jane POND): The patient's ammonia level is improved at 50. The patient's CT has resulted and shows cirrhosis with moderate abdominopelvic ascites. Dr. Tamez has been updated on the patient's case and will assess the patient for appropriateness for diagnostic/therapeutic paracentesis. 2:27 AM 10/08/2024 (Jane POND): The patient was assessed by Dr. Tamez, at this time patient is reporting significant improvement in respiratory symptoms following treatment with anxiolytic, patient does not appear to require emergent therapeutic paracentesis. The patient's CT today demonstrates only slightly increased total volume of ascites compared to most recent imaging. Patient states she would prefer to be discharged home and follow up Thursday for re-evaluation and consideration of IR guided drainage at that time. The patient is not PERC negative due only to age, patient scores 0 on Wells criteria, based on presentation of symptoms PE is highly unlikely. The patient will be sent for a repeat troponin to confirm no cardiac pathology responsible for her respiratory symptoms. Pending unremarkable repeat troponin the patient will be discharged home to follow up outpatient per her request. Per consultation with Dr. Tamez we will discharge with Librium for anxiolysis. 3:57 AM 10/08/2024 (Jane POND): The patient's repeat troponin is negative/unchanged. Patient will be discharged with instructions to follow up outpatient on Thursday with GI to facilitate scheduled paracentesis, or to return to the ED if she experiences a fever greater than 100.4 or worsening shortness of breath, we will provide a short course of Librium for anxiolysis as this was likely contributing to the patient's shortness of breath. Admission/Observation Consideration of admission/observation: Escalation of care including admission/observation considered Lab Data MDM Lab Attestation statement: I reviewed the patient's lab results. 10/07/24 22:00 10/07/24 22:00 Labs: Lab Results 10/07/24 10/07/24 10/07/24 Range/Units 22:00 22:09 23:24 WBC 13.8 H (4.8-10.8) X10*3/uL RBC 3.00 L (4.20-5.50) X10*6/uL Hgb 10.3 L (12.0-16.0) g/dl Hct 29.9 L (37.0-47.0) % MCV 99.7 H (80.0-98.0) fL MCH 34.3 H (27.0-33.0) pg MCHC 34.4 (31.0-35.0) g/dl RDW 15.7 (11.0-16.0) % Plt Count 205 (160-400) X10*3/uL MPV 9.1 L (9.4-12.3) fL Immature Gran % (Auto) 0.4 (0.0-0.4) % Neut % (Auto) 82.2 H (45-73) % Lymph % (Auto) 7.0 L (20-40) % [place] % (Auto) 8.8 (2-11) % Eos % (Auto) 1.1 (0-4) % Baso % (Auto) 0.5 (0-2) % Lymph # (Auto) 1.0 L (1.2-4.9) X10*3/uL [place] # (Auto) 1.2 (0.1-1.2) X10*3/uL Eos # (Auto) 0.2 (0.0-0.4) X10*3/uL Baso # (Auto) 0.1 (0.0-0.2) X10*3/uL Abs Immat Gran (auto) 0.06 H (0.00-0.03) X10*3/uL Absolute Neuts (auto) 11.3 H (2.0-8.3) x10*3/uL Absolute Nucleated RBC 0.000 (0.0-0.012) X10*3/uL Nucleated RBC % (auto) 0.0 (0.0-0.2) /100WBC VBG pH 7.44 H (7.32-7.43) VBG pCO2 41 mmHg VBG pO2 33 mmHg VBG HCO3 28 H (22-26) mmol/L VBG O2 Saturation 45.0 % VBG Base Excess 4.3 mmol/L Sodium 135 (135-145) mmol/L Potassium 4.2 D (3.3-5.1) mmol/L Chloride 101 (96-108) mmol/L Carbon Dioxide 25 (22-29) mmol/L Anion Gap 13 (12-20) BUN 5 L (9-16) mg/dL Creatinine 0.47 L (0.5-1.4) mg/dL Estim Creat Clear Calc 173.1 Estimated GFR > 60 Random Glucose 105 (60-115) mg/dL Calcium 8.3 L (8.4-10.2) mg/dL Magnesium 1.8 (1.6-2.6) mg/dL Total Bilirubin 15.5 H (0.0-1.0) mg/dL AST 76 H (5-31) U/L ALT 19 (0-31) U/L Alkaline Phosphatase 123 H (39-117) U/L Ammonia 50 (13-55) umol/L Troponin I High Sens 3.6 (<3.5-17.0) ng/L B-Natriuretic Peptide 194 H (<100) pg/mL Total Protein 5.8 L (6.5-8.0) g/dL Albumin 2.4 L (3.5-5.0) g/dL Ethyl Alcohol < 10 mg/dL Influenza Type A (PCR) NEGATIVE (Negative) Influenza Type B (PCR) NEGATIVE (Negative) RSV RNA Qual (PCR) NEGATIVE (Negative) SARS-CoV-2 RNA (RT-PCR) NEGATIVE (Negative) 10/08/24 Range/Units 03:21 WBC (4.8-10.8) X10*3/uL RBC (4.20-5.50) X10*6/uL Hgb (12.0-16.0) g/dl Hct (37.0-47.0) % MCV (80.0-98.0) fL MCH (27.0-33.0) pg MCHC (31.0-35.0) g/dl RDW (11.0-16.0) % Plt Count (160-400) X10*3/uL MPV (9.4-12.3) fL Immature Gran % (Auto) (0.0-0.4) % Neut % (Auto) (45-73) % Lymph % (Auto) (20-40) % [place] % (Auto) (2-11) % Eos % (Auto) (0-4) % Baso % (Auto) (0-2) % Lymph # (Auto) (1.2-4.9) X10*3/uL [place] # (Auto) (0.1-1.2) X10*3/uL Eos # (Auto) (0.0-0.4) X10*3/uL Baso # (Auto) (0.0-0.2) X10*3/uL Abs Immat Gran (auto) (0.00-0.03) X10*3/uL Absolute Neuts (auto) (2.0-8.3) x10*3/uL Absolute Nucleated RBC (0.0-0.012) X10*3/uL Nucleated RBC % (auto) (0.0-0.2) /100WBC VBG pH (7.32-7.43) VBG pCO2 mmHg VBG pO2 mmHg VBG HCO3 (22-26) mmol/L VBG O2 Saturation % VBG Base Excess mmol/L Sodium (135-145) mmol/L Potassium (3.3-5.1) mmol/L Chloride (96-108) mmol/L Carbon Dioxide (22-29) mmol/L Anion Gap (12-20) BUN (9-16) mg/dL Creatinine (0.5-1.4) mg/dL Estim Creat Clear Calc Estimated GFR Random Glucose (60-115) mg/dL Calcium (8.4-10.2) mg/dL Magnesium (1.6-2.6) mg/dL Total Bilirubin (0.0-1.0) mg/dL AST (5-31) U/L ALT (0-31) U/L Alkaline Phosphatase (39-117) U/L Ammonia (13-55) umol/L Troponin I High Sens 3.9 (<3.5-17.0) ng/L B-Natriuretic Peptide (<100) pg/mL Total Protein (6.5-8.0) g/dL Albumin (3.5-5.0) g/dL Ethyl Alcohol mg/dL Influenza Type A (PCR) (Negative) Influenza Type B (PCR) (Negative) RSV RNA Qual (PCR) (Negative) SARS-CoV-2 RNA (RT-PCR) (Negative) Independent Interpretation I performed an independent interpretation of an: EKG (EKG shows sinus rhythm with a rate of 93, no evidence of acute ischemia, no ST elevation, no ectopy. QTC 437. Compared to previous from 09/26/2024 there are no acute morphology changes. ) Radiology Impression Discussion of test interpretation with radiology: I have reviewed the radiologist's reading. Radiologist Impression: CLINICAL HISTORY: Abd Distention; SOB; End Stage Liver Disease CT abdomen and pelvis with contrast Comparison: MR/SR - MR ABDOMEN WO/W CON - 09/28/24 13:[address] - CT ABDOMEN PELVIS W IV CON - 09/26/24 17:27 EDT Findings: The lung bases are clear. Cirrhosis with heterogeneous attenuation of the liver, similar to the prior CT. Cholecystectomy. CBD measures 15 mm, similar to prior. Atrophic pancreas. Spleen and adrenal glands are within normal limits. No hydronephrosis. Symmetric contrast enhancement of the kidneys. Postsurgical changes in the stomach. No bowel obstruction, pneumatosis or pneumoperitoneum. Moderate abdominopelvic ascites. Anasarca. Intraluminal air in the bladder, correlate for recent catheterization. Uterus is within normal limits. Degenerative changes of the spine. Scoliosis. No acute fracture. IMPRESSION: Cirrhosis with moderate abdominopelvic ascites. This document has been electronically signed by: Polly Levine MD on 10/08/2024 01:15:57 Discharge Plan Discharge Clinical Impression: Anxiety Ascites Qualifiers: Ascites type: due to alcoholic cirrhosis Qualified Code(s): K70.31 - Alcoholic cirrhosis of liver with ascites Cirrhosis of liver Qualifiers: Hepatic cirrhosis type: alcoholic cirrhosis Ascites presence: with ascites Qualified Code(s): K70.31 - Alcoholic cirrhosis of liver with ascites Patient Disposition: Home, Self-Care Instructions: Cirrhosis of the Liver (ED), Ascites (ED), Anxiety (ED), Paracentesis (DC), Chronic Liver Disease (ED) Additional Instructions: Thank you for choosing [facility]'s Emergency Department for your care today. Your CT today shows minimally increased fluid within your abdomen as a result of your liver cirrhosis. At this time, your laboratory evaluation thankfully shows improvement in your overall liver function tests and other laboratory results compared to previous testing. After extensive discussion regarding possible care options, you have requested to be discharged home to follow up Thursday by calling your GI specialist. Your stated your understanding that you should return immediately to the emergency department if at any time you develop a fever greater than 100.4, recurrent shortness of breath, worsening abdominal pain, or other concerning symptoms. Your anxiety was likely contributing significantly to her shortness of breath this evening, please take Librium as prescribed as needed for additional anxiety, do not take Librium outside the recommended parameters. Please follow up with your GI physician and primary care physician for re-evaluation, additional management of your symptoms, and continued preventative care. Please return to the emergency department if you develop any of the symptoms we discussed or any other worsening or concerning symptoms. Prescriptions: New chlordiazepoxide HCl 25 mg capsule 25 mg PO BID PRN (Reason: anxiety) Qty: 14 0RF No Action hydroxyzine HCl 25 mg Tablet 25 mg PO Q6H PRN (Reason: Anxiety) Qty: 56 0RF multivitamin Tablet 1 tab PO DAILY Xifaxan 550 mg tablet 550 mg PO BID buprenorphine-naloxone 8-2 mg film 1 film sublingual DAILY gabapentin 100 mg capsule 100 mg PO BID magnesium oxide 400 mg magnesium tablet 400 mg PO DAILY zinc sulfate [Zinc-220] 50 mg zinc (220 mg) Capsule 220 mg PO DAILY Qty: 30 0RF spironolactone 50 mg tablet 50 mg PO DAILY Qty: 90 0RF lactulose 10 gram/15 mL solution 15 ml PO TID Qty: 1350 2RF thiamine HCl (vitamin B1) 100 mg capsule 100 mg PO DAILY folic acid 1 mg tablet 1 mg PO DAILY Interventions: ED Discharge Assessment Last Done: 10/08/24 06:35 Discharge Date/Time: 10/08/24 06:36 Print Language: Luxembourger
[2024-10-07 22:47] LABS: Resp Syncy Virus RNA Qual PCR NEGATIVE (Negative); SARS COV2 PCR INHOUSE NEGATIVE (Negative)
--- OUTSIDE RECORDS SUMMARY | 2024-10-07 23:15 | XMS_ITS | Clinical Summary ---
Author Organization [facility] Facility Address [address] [address] Care Team Providers Care Press Manager Name Role Phone Unavailable Primary Care Provider [...] [id number] Influenza Vaccine (Season Ended) 2024 Insurance [facility]
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
[2024-10-07] MEDS: diazePAM 10 MG/2 ML CARTRIDGE 5 MG IVPUSH (23:23)
[2024-10-08 00:03] LABS: Ammonia 50 umol/L (13-55)
[2024-10-08] MEDS: iohexoL 350 MG/ML 100 ML INFUS..BTL IV (00:23)
[2024-10-08 01:33] VITALS: BP 109/66; PULSE 81; RESP 10; TEMP 36.9; O2SAT 100
--- NOTE | 2024-10-08 03:15 | MHC.EDTECH ---
This tech was unable to take the blood (patient is a hard stick). Asked another tech to try with the vein finder ([place]) and he was also not able to get the blood. Dr mann.
[2024-10-08 03:16] VITALS: BP 103/69; PULSE 81; RESP 13; TEMP 36.8; O2SAT 96
[2024-10-08 03:55] LABS: Troponin-I High Sensitivity 3.9 ng/L (<3.5-17.0)
[2024-10-08 06:24] VITALS: BP 96/48; PULSE 70; RESP 18; TEMP 36.6; O2SAT 97
[2024-10-08 06:35] VITALS: BP 96/48; PULSE 70; RESP 18; TEMP 36.6; O2SAT 97
== END 2024-10-08 06:36 | disposition home or self-care (01) ==
PROVIDERS: Physician Assistant; Emergency Provider Emergency Medicine
DX: K70.31 Alcoholic cirrhosis of liver with ascites (principal); F41.9 Anxiety disorder, unspecified; R06.02 Shortness of breath; R10.2 Pelvic and perineal pain; R94.31 Abnormal electrocardiogram [ECG] [EKG]; Z51.81 Encounter for therapeutic drug level monitoring; Z03.818 Encounter for observation for suspected exposure to other biological agents ruled out; Z79.899 Other long term (current) drug therapy; Z87.891 Personal history of nicotine dependence
CPT/HCPCS: 36415; 71045; 74177; 80053; 80307; 82140; 82803; 83735; 83880; 84484; 85025; 87637; 93005; 96374; 99284; 99285; J3360; Q9967

== ENCOUNTER → 2024-10-07 21:48 | Outpatient (BNV) | payer BC, MEDICAID, SELFPAY | PROVIDERS: Emergency Provider Emergency Medicine; Visit Provider Internal Medicine Cardiovascular Disease | DX: R94.31 Abnormal electrocardiogram [ECG] [EKG] (principal); R06.02 Shortness of breath | CPT/HCPCS: 93010 ==

== ENCOUNTER → 2024-10-08 | Outpatient (BNV) | payer BC, MEDICAID, SELFPAY | PROVIDERS: Emergency Provider Emergency Medicine; Visit Provider Radiology Diagnostic Radiology | DX: K74.60 Unspecified cirrhosis of liver (principal); R18.8 Other ascites | CPT/HCPCS: 74177 ==

== ENCOUNTER 2024-10-12 12:28 | Inpatient (IN) | payer BC, MEDICAID, SELFPAY ==
--- NOTE | ~2024-10-12 | CT_ITS ---
CLINICAL HISTORY: Encephalopathic, repetitive speech CT head without contrast Comparison: CT/SR - CT HEAD/BRAIN WO IV CON - 09/26/24 17:28 EDT Findings: No intra-axial mass, midline shift, hydrocephalus, or acute hemorrhage. Involutional change brain parenchyma, advanced for age. Mild white matter disease. Mild mucosal thickening within the paranasal sinuses. No air-fluid levels. The orbits are unremarkable. There is no acute fracture. IMPRESSION: 1. No acute intracranial findings. This document has been electronically signed by: Alexandra Felix MD on 10/12/2024 18:53:52
[2024-10-12 12:34] VITALS: BP 101/53; BP 132/84; PULSE 68; PULSE 85; RESP 16; TEMP 36.8; O2SAT 97; O2SAT 98; BMI 39.7
--- NOTE | 2024-10-12 12:53 | ED.GENADULT ---
HPI - General Adult General Chief complaint: General Medical Stated complaint: ABD DISTENSION,HX LIVER FAILURE PER EMS Time Seen by Provider: 10/12/24 12:53 Source: patient, EMS, RN notes reviewed and old records reviewed Mode of arrival: EMS Limitations: altered mental status History of Present Illness ED Provider: Francisca HPI narrative: Patient is a 53-year-old female with history of cirrhosis of liver, alcoholic hepatitis, ascites, anemia, alcohol use disorder presenting to the emergency department if patient not alert and oriented, difficulty obtaining history due to altered mental status. Reported feeling short of breath to EMS, seen in the ED on Thursday for same. MD complaint: abdominal pain, AMS Onset (ago): unknown Related Data Home Medications ?Medication ?Instructions ?Recorded ?Confirmed folic acid 1 mg tablet 1 mg PO DAILY 06/02/24 09/26/24 thiamine HCl (vitamin B1) 100 mg 100 mg PO DAILY 06/02/24 09/26/24 capsule multivitamin 1 tab PO DAILY 08/16/24 09/26/24 buprenorphine 8 mg-naloxone 2 mg 1 film sublingual DAILY 09/26/24 09/26/24 sublingual film gabapentin 100 mg capsule 100 mg PO BID 09/26/24 09/26/24 magnesium oxide 400 mg PO DAILY 09/26/24 09/26/24 rifaximin 550 mg tablet (Xifaxan) 550 mg PO BID 09/26/24 09/26/24 Previous Rx's ?Medication ?Instructions ?Recorded hydroxyzine HCl 25 mg tablet 25 mg PO Q6H PRN Anxiety #56 tabs 05/17/24 lactulose 10 gram/15 mL oral 15 ml PO TID #1,350 mL 09/29/24 solution spironolactone 50 mg tablet 50 mg PO DAILY #90 tabs 09/29/24 zinc sulfate 50 mg zinc (220 mg) 220 mg (4.4 x 50 mg zinc (220 mg)) 09/29/24 capsule (Zinc-220) PO DAILY #30 caps chlordiazepoxide HCl 25 mg capsule 25 mg PO BID PRN anxiety #14 caps 10/08/24 Allergies Allergy/AdvReac Type Severity Reaction Status Date / Time No Known Allergies Allergy Verified 10/12/24 12:38 Review of Systems Review of Systems: As per HPI Yes all other systems are reviewed and are negative Constitutional: Constitutional: Reports as per HPI Neurologic: Reports confusion Psychiatric: Psychiatric: Reports confusion [facility] Past Medical History Medical History Alcoholic hepatitis Alcoholism Depression with anxiety Alcohol use disorder, severe, dependence Alcohol withdrawal hallucinosis Falls frequently Pedal edema Cellulitis Alcohol intoxication Korsakoff syndrome Thrombocytopenia Alcohol withdrawal syndrome Abscess of axilla, right Rash Encounter for monitoring Suboxone maintenance therapy Hypertension Opioid use disorder Alcohol abuse Surgical History Gastric bypass status for obesity History of total knee arthroplasty History of gastric surgery Family History Family History Father Lung cancer Social History Social History Household Members: Spouse Household Members Other:: 2 Housing: House Do you presently have visiting nurse or other home services: Yes Unable to assess alcohol history related to: Unknown Alcohol intake: former Comment: refuses alarm Patient Tobacco Use Status: Former Tobacco user Tobacco use type: Cigarette Years Smoked: 2 Second Hand Smoke Exposure: No Advance Directives: Yes Advance Directives on File: Yes Advance Directives Date on File: 09/01/24 service: No Current occupational status: employed Physical Exam ED Vital Signs: Vital Signs - 24 hr 10/12/24 12:34 10/12/24 13:18 10/12/24 14:47 Temperature 98.3 F 98.9 F 98.3 F Pulse Rate 85 73 Respiratory Rate 16 11 L Blood Pressure 101/53 L 104/61 Pulse Oximetry 97 98 Oxygen Delivery Method Room Air 10/12/24 16:29 Temperature 97.9 F Pulse Rate 75 Respiratory Rate 15 Blood Pressure 98/58 L Pulse Oximetry 95 Oxygen Delivery Method Room Air BMI result Body Mass Index 39.7 Vital signs have been reviewed and appear to be correct. Blood pressure normal. Heart rate normal. Respiratory rate normal. Temperature normal. Oxygen saturation normal. Const General: cooperative, no acute distress, alert, awake, confusion and ill appearing chronically Orientation/consciousness: oriented to person, oriented to place and confusion Limitations: altered mental status HENMT Head: Yes normocephalic and Yes atraumatic Ears: external ears normal General nose exam: Normal external nose present Face and sinus: Yes face symmetric Mouth: oropharynx normal and moist mucous membranes Throat: Yes uvula midline Eyes Sclerae: scleral abnormal bilateral (icterus) Pupils: Equal, round and reactive pupils present Neck Neck: Yes normal visual inspection and Yes supple Resp Effort & Inspection: normal respiratory effort and able to speak in complete sentences Auscultation: clear to auscultation bilaterally Cardio Rate: regular rate Rhythm: regular rhythm Heart sounds: S1 normal heart sound present and S2 normal heart sound present GI Inspection: Yes distended Palpation (GI): Soft to palpation, nontender, Splenomegaly present and Ascites present Auscultation: normoactive bowel sounds General: Yes no CVA tenderness Back/Spine/Pelvis Back: no CVA tenderness Skin General skin exam: elasticity normal, turgor normal and jaundice Neuro General: oriented to person, oriented to place, moves all extremities, no focal motor deficits, CN's II-XI intact bilaterally and confusion Cranial nerves: Yes Equal, round and reactive pupils present Extrem General: Yes full ROM and Yes no calf tenderness Medications Administered Discontinued Medications Generic Name Dose Route Start Last Admin Trade Name Freq PRN Reason Stop Dose Admin Ceftriaxone Sodium 1 gm 10/12/24 14:25 10/12/24 14:45 Ceftriaxone Sodium 1 Gm Vial IVPUSH 10/12/24 14:26 1 gm ONCE ONE Administration Lactulose 30 gm 10/12/24 14:25 10/12/24 14:45 Lactulose 20 Gm/30 Ml Solution PO 10/12/24 14:26 30 gm ONCE ONE Administration Lidocaine HCl 5 ml 10/12/24 15:20 10/12/24 15:57 Lidocaine Hcl 1 % Mpf 5 Ml Vial INFILTRATI 10/12/24 15:21 5 ml ONCE ONE Administration Procedures Paracentesis Time Out Performed: Yes Local Anesthetic: lidocaine 1% Amount of anesthesia used (mL): 5 Fluid: clear and sent to lab for analysis Post Procedure Exam: awake, alert, normal BP, normal HR and normal SpO2 Patient Tolerated Procedure: well Complications: none Medical Decision Making Medical Decision Making MDM Narrative: Patient is a 53-year-old female with history of cirrhosis of liver, alcoholic hepatitis, ascites, anemia, alcohol use disorder presenting to the emergency department if patient not alert and oriented, difficulty obtaining history due to altered mental status. On exam patient is awake, A+Ox3, VS WNL, afebrile, normal neurological exam without focal deficits, physical exam findings as above. Given reported symptoms and physical exam findings, initial differential includes but is not limited to SBP, metabolic encephalopathy, elevated ammonia, electrolyte abnormality. Labs notable for no leukocytosis, stable anemia, slight hyponatremia, elevated ammonia, hypoalbuminemia. Lab Data 10/12/24 13:33 10/12/24 13:33 Labs: Lab Results 10/12/24 10/12/24 Range/Units 13:33 15:57 WBC 9.7 (4.8-10.8) X10*3/uL RBC 3.35 L (4.20-5.50) X10*6/uL Hgb 11.2 L (12.0-16.0) g/dl Hct 32.9 L (37.0-47.0) % MCV 98.2 H (80.0-98.0) fL MCH 33.4 H (27.0-33.0) pg MCHC 34.0 (31.0-35.0) g/dl RDW 15.8 (11.0-16.0) % Plt Count 219 (160-400) X10*3/uL MPV 10.2 (9.4-12.3) fL Immature Gran % (Auto) 0.4 (0.0-0.4) % Neut % (Auto) 78.8 H (45-73) % Lymph % (Auto) 9.2 L (20-40) % Bartholomew % (Auto) 8.1 (2-11) % Eos % (Auto) 2.6 (0-4) % Baso % (Auto) 0.9 (0-2) % Lymph # (Auto) 0.9 L (1.2-4.9) X10*3/uL Bartholomew # (Auto) 0.8 (0.1-1.2) X10*3/uL Eos # (Auto) 0.3 (0.0-0.4) X10*3/uL Baso # (Auto) 0.1 (0.0-0.2) X10*3/uL Abs Immat Gran (auto) 0.04 H (0.00-0.03) X10*3/uL Absolute Neuts (auto) 7.7 (2.0-8.3) x10*3/uL Absolute Nucleated RBC 0.000 (0.0-0.012) X10*3/uL Nucleated RBC % (auto) 0.0 (0.0-0.2) /100WBC PT 25.9 H (10.9-12.4) SEC INR 2.3 H (0.9-1.1) Sodium 133 L (135-145) mmol/L Potassium 3.7 (3.3-5.1) mmol/L Chloride 100 (96-108) mmol/L Carbon Dioxide 26 (22-29) mmol/L Anion Gap 11 L (12-20) BUN 6 L (9-16) mg/dL Creatinine 0.47 L (0.5-1.4) mg/dL Estim Creat Clear Calc 165.3 Estimated GFR > 60 Random Glucose 81 Cancelled (60-115) mg/dL Lactic Acid 1.4 (0.5-2.0) mmol/L Calcium 8.3 L (8.4-10.2) mg/dL Magnesium 1.9 (1.6-2.6) mg/dL Total Bilirubin 15.1 H (0.0-1.0) mg/dL AST 86 H (5-31) U/L ALT 19 (0-31) U/L Alkaline Phosphatase 130 H (39-117) U/L Ammonia 78 H (13-55) umol/L Total Protein 6.4 L (6.5-8.0) g/dL Albumin 2.5 L (3.5-5.0) g/dL Amylase 41 (28-100) U/L Lipase 13 (8-78) U/L Ethyl Alcohol < 10 mg/dL Critical Care Time Critical Care Time Critical Care Time: Yes Total Critical Care Time: 55 Attestation: I have personally provided critical care time exclusive of time spent on separately billable procedures. Time includes review of lab data, radiology results, discussion with consultants, and monitoring for potential decompensation. Intervention performed as documented. Discharge Plan Discharge Patient Disposition: Admitted As Inpatient Print Language: Greek
[2024-10-12 13:18] VITALS: TEMP 37.2
[2024-10-12 13:45] LABS: MANUAL DIFF FLAG NO
[2024-10-12 13:49] LABS: Hematocrit 32.9 % (37.0-47.0); Hemoglobin 11.2 g/dl (12.0-16.0); Imm Gran Abs Auto 0.04 X10*3/uL (0.00-0.03); Imm Gran Pct Auto 0.4 % (0.0-0.4); Lymphocytes Absolute Auto 0.9 X10*3/uL (1.2-4.9); Mean Corpuscular HGB Conc 34.0 g/dl (31.0-35.0); Mean Corpuscular Hemoglobin 33.4 pg (27.0-33.0); Mean Corpuscular Volume 98.2 fL (80.0-98.0); NRBC Abs Auto 0.000 X10*3/uL (0.0-0.012); NRBC Pct Auto 0.0 /100WBC (0.0-0.2); Platelet Count 219 X10*3/uL (160-400); Red Blood Count 3.35 X10*6/uL (4.20-5.50); White Blood Count 9.7 X10*3/uL (4.8-10.8)
[2024-10-12 13:54] LABS: INTERNATIONAL NORM RATIO 2.3 (0.9-1.1); Prothrombin Time 25.9 SEC (10.9-12.4)
[2024-10-12 14:01] LABS: Ammonia 78 umol/L (13-55)
[2024-10-12 14:09] LABS: Alanine Aminotransferase 19 U/L (0-31); Albumin Level 2.5 g/dL (3.5-5.0); Alkaline Phosphatase 130 U/L (39-117); Amylase 41 U/L (28-100); Anion Gap 11 (12-20); Aspartate Amino Transferase 86 U/L (5-31); Blood Urea Nitrogen 6 mg/dL (9-16); Calcium 8.3 mg/dL (8.4-10.2); Carbon Dioxide 26 mmol/L (22-29); Chloride 100 mmol/L (96-108); Creatinine Clr Calc Pharmacy 165.3; Estimated Glomerular Filt Rate > 60; Lipase 13 U/L (8-78); Magnesium 1.9 mg/dL (1.6-2.6); Potassium 3.7 mmol/L (3.3-5.1); Sodium 133 mmol/L (135-145); Total Protein 6.4 g/dL (6.5-8.0)
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
--- OUTSIDE RECORDS SUMMARY | 2024-10-12 14:38 | XMS_ITS | Encounter Summary ---
Author Organization [employer] Address [address] [place] [address] Care Team Providers Care Chain Splitter Name Role Phone Baljeet Champagne MD Primary Care Prov ider Encounter Details Date Type Department Care Team (Late st Contact Info) Description 09/23/2024 Orders Only [facility] [address] [place] [address] Franck Buenrostro MD [address] [place] [address] Alcoholic encephalopathy (CMS/HCC) (Primary Dx) Social History [...] dementia documented in this encounter Care Teams Chain Splitter Relationship Specialty Start Date End Date Baljeet Champagne MD [address] [place] [id number] PCP - General Internal Medicine 06/24/19 Erick Cuco 05/19/24 09/28/24 [facility] 09/26/24 documented as of this encounter
--- OUTSIDE RECORDS SUMMARY | 2024-10-12 14:38 | XMS_ITS | Clinical Summary ---
Author Organization [facility] Address [address] [address] Care Team Providers Care Driller'S Offsider Name Role Phone Unavailable Primary Care Provider [...] of 1 - PCV) 019 Influenza Vaccine (#1) 2024 Insurance [facility]
[2024-10-12 14:47] VITALS: BP 104/61; PULSE 73; RESP 11; TEMP 36.8; O2SAT 98
[2024-10-12] MEDS: Lidocaine HCl 1 % MPF 5 ML VIAL INFILTRATI (15:57)
--- NOTE | 2024-10-12 16:20 | PC.NURSE ---
Provider in the room to do paracentisis. Will continue to monitor the bottles as it drains
[2024-10-12 16:29] VITALS: BP 98/58; PULSE 75; RESP 15; TEMP 36.6; O2SAT 95
--- NOTE | 2024-10-12 16:44 | PM.IMHP ---
History of Present Illness Date of Service: 10/12/24 Attending physician on admission: Lidia Perry Chief Complaint: I have ascites Beverley Parent is a 53 years old woman with past medical history significant for chronic liver disease, hypertension, opiate use disorder on Suboxone and depression presents to the emergency department complaining of increased abdominal girth ( I have ascites ) and abdominal pain. She also reports constipation -last bowel movement was 3 days ago. She denied diarrhea, nausea or vomiting. She denied any changes in the dose of her medication and mentioned that she thinks that her is giving the inappropriate dose of lactulose. She mentioned that her jaundice is actually getting better as well as her icteric sclerae. She denied black or bloody stools. She denied fever or chills. She denies chest pain, shortness on breath, cough, fever, palpitations, dizziness and headache. She denied active alcohol abuse -last alcoholic drink was 3 months ago. She denied pain with urination. She denied tobacco smoking or illicit drug use. In the ED, she was found to have stable vital signs. Last blood pressure 98/58. Other vital signs are normal. Blood workup showed no leukocytosis. Hemoglobin is 11.2 which is around baseline. Platelets are 219. INR is 2.3. There is hyponatremia, 133. There are no other electrolyte imbalances. BUN is 6 and creatinine 0.42. Glucose is 81. Total bilirubin is 15.1 (prior 19.5), AST is 86, ALT 19, alk-phos 130. Troponin is 3.9. Albumin 2.5 with total protein of 6.4. Amylase and lipase are normal. Peritoneal fluid analysis: Pending. ETOH level < 10. Serology for COVID-19, influenza and RSV is negative (5 days ago). Abdominal pelvis CT scan showed cirrhosis with moderate abdominopelvic ascites. Five days ago she underwent a CXR that was negative. ED tx: Paracentesis. Lactulose 30 g p.o., ceftriaxone 1 g IV. Review of Systems Review of Systems: All 12 systems were reviewed and normal except as noted in HPI. [facility] Medical History Alcoholic hepatitis Alcoholism Depression with anxiety Alcohol use disorder, severe, dependence Alcohol withdrawal hallucinosis Falls frequently Pedal edema Cellulitis Alcohol intoxication Korsakoff syndrome Thrombocytopenia Alcohol withdrawal syndrome Abscess of axilla, right Rash Encounter for monitoring Suboxone maintenance therapy Hypertension Opioid use disorder Alcohol abuse Family History Father Lung cancer Surgical History Gastric bypass status for obesity History of total knee arthroplasty History of gastric surgery Social History Household Members: Spouse Household Members Other:: 2 Housing: House Do you presently have visiting nurse or other home services: Yes Unable to assess alcohol history related to: Unknown Alcohol intake: former Comment: refuses alarm Patient Tobacco Use Status: Former Tobacco user Tobacco use type: Cigarette Years Smoked: 2 Second Hand Smoke Exposure: No Advance Directives: Yes Advance Directives on File: Yes Advance Directives Date on File: 09/01/24 service: No Current occupational status: employed Meds Allergies Allergy/AdvReac Type Severity Reaction Status Date / Time No Known Allergies Allergy Verified 10/12/24 12:38 Active Medications: Current Medications Phytonadione 10 mg/ Sodium (Chloride) 51 mls @ 51 mls/hr IV ONCE STA Stop: 10/12/24 17:41 Albumin Human (Kedbumin 25 %) 100 mls @ 100 mls/hr IV Q6H [place] Stop: 10/13/24 11:44 Melatonin (Melatonin 3 Mg Tablet) 6 mg PO BEDTIME PRN PRN Reason: Insomnia Midodrine (Midodrine Hcl 10 Mg Tablet) 10 mg PO TID [place] Stop: 10/12/24 21:01 Sodium Chloride (0.9 % Sodium Chloride Flush 3 Ml Syringe) 3 ml IVFLUSH QSHIFT [facility] Home Medications ?Medication ?Instructions ?Recorded ?Confirmed ?Last Taken ?Type folic acid 1 mg tablet 1 mg PO DAILY 06/02/24 09/26/24 09/25/24 History thiamine HCl (vitamin B1) 100 mg 100 mg PO DAILY 06/02/24 09/26/24 09/25/24 History capsule multivitamin 1 tab PO DAILY 08/16/24 09/26/24 09/25/24 History buprenorphine 8 mg-naloxone 2 mg 1 film sublingual DAILY 09/26/24 09/26/24 09/25/24 History sublingual film gabapentin 100 mg capsule 100 mg PO BID 09/26/24 09/26/2409/25/25 History magnesium oxide 400 mg PO DAILY 09/26/24 09/26/24 09/25/24 History rifaximin 550 mg tablet (Xifaxan) 550 mg PO BID 09/26/24 09/26/24 09/25/24 History Physical Exam Vital Signs and Narrative: Vital Signs: Last Vital Signs Temp 97.9 F 10/12/24 16:29 Pulse 75 10/12/24 16:29 Resp 15 10/12/24 16:29 BP 98/58 L 10/12/24 16:29 Pulse Ox 95 10/12/24 16:29 O2 Del Method Room Air 10/12/24 16:29 BMI result Body Mass Index 39.7 Constitutional - Awake and Alert, No apparent distress, Chronically ill-appearing. HEENT - PER, EOMI. Sclerae icterus. Dry oral mucosa. Heart - RRR, No murmurs Lungs - Normal lung expansion, Normal respiratory effort, No respiratory distress. Decreased breath at bases. Abdomen - Distended. Collateral circulation, paracentesis catheter in place and draining yellowish fluid. Non tenderness. Distant bowel sounds. Extremities - Pitting edema to the lower extremities. Musculoskeletal - genital atrophy. Skin - Warm/Dry. Jaundice. Neurological - Alert & oriented x3. Moving all extremities spontaneously. Slurred and repetitive speech but coherent. (+) asterixis. Psychological - Anxious affect. Crying. Results Labs 10/12/24 13:33 10/12/24 13:33 Labs: Laboratory Results - last 24 hr 10/12/24 10/12/24 13:33 15:57 MCV 98.2 H MCH 33.4 H MCHC 34.0 RDW 15.8 Plt Count 219 MPV 10.2 Immature Gran % (Auto) 0.4 Neut % (Auto) 78.8 H Lymph % (Auto) 9.2 L [place] % (Auto) 8.1 Eos % (Auto) 2.6 Baso % (Auto) 0.9 Lymph # (Auto) 0.9 L [place] # (Auto) 0.8 Eos # (Auto) 0.3 Baso # (Auto) 0.1 Abs Immat Gran (auto) 0.04 H Absolute Neuts (auto) 7.7 Absolute Nucleated RBC 0.000 Nucleated RBC % (auto) 0.0 PT 25.9 H INR 2.3 H Anion Gap 11 L Estim Creat Clear Calc 165.3 Estimated GFR > 60 Random Glucose 81 Cancelled Lactic Acid 1.4 Calcium 8.3 L Magnesium 1.9 Total Bilirubin 15.1 H AST 86 H ALT 19 Alkaline Phosphatase 130 H Ammonia 78 H Total Protein 6.4 L Albumin 2.5 L Amylase 41 Lipase 13 Ethyl Alcohol < 10 Assessment and Plan (1) Acute hepatic encephalopathy: Status: Acute (2) Ascites: Qualifiers: Ascites type: due to alcoholic cirrhosis Qualified Code(s): K70.31 - Alcoholic cirrhosis of liver with ascites Status: Acute Plan Beverley Mims is a 53 y/o woman with PMHx significant for chronic liver disease admitted with: Hepatic encephalopathy, stage II. Admit to hospitalist service. Aspiration and fall precautions. Neuro checks and CIWA every 4 hours (pt said she stopped drinking EtOH 3 months ago). Increase lactulose to 30 g PO TID (got a dose by ED). Continue thiamine, folic acid, zinc and multivitamins. Hold gabapentin. Start therapy with albumin IV. Aspiration and fall precautions. Check for occult blood test and urinalysis. Drug screen and blood cultures pending. Check head CT scan stat. According to prior GI notes: Not deemed to be transplant candidate based on discussion with [facility] at prev admission . Nutrition consult. Decompensated chronic liver disease with ascites, coagulopathy and hyperbilirubinemia. Peritoneal fluid analysis pending. Continue spironolactone if BP allows. Continue rifaximin, if peritoneal fluid is positive for SBP we will start patient on ceftriaxone IV. Vitamin K 10 mg p.o.. Continue to monitor LFTs. Hyponatremia, mild. Secondary to 3rd spacing. Continue to monitor. Soft blood pressure secondary to cirrhosis. Albumin and midodrine. Opiate use disorder. Continue Suboxone. Chronic anemia. Continue to monitor. DVT prophylaxis: SCDs (high risk for bleeding due to coagulopathy). GI prophylaxis. PPI IV. Code status: Full Patient will need hospitalization for at least 2 midnights for continuous monitoring neurological status, lactulose for hepatic encephalopathy. She will also need further evaluation for acute infection. Quality Stroke Does the patient have a stroke diagnosis?: No VTE Prior VTE?: No VTE Risk Level:: Medical - moderate - high VTE Device Contraindication: N/A - Device Ordered VTE Drug Contraindication: Treatment Not Indicated
[2024-10-12 16:47] LABS: MN% 78.8 %; PMN% 21.2 %; WBC Peritoneal Fluid 0.144 X10*3/uL
[2024-10-12] MEDS: Albumin Human 25 % 100 ML IV ×2 (16:58→20:06)
--- NOTE | 2024-10-12 17:27 | PC.NURSE ---
1300ml fluid out of paracetisis
[2024-10-12 17:43] LABS: BF Shift QC OK YES; Lymphocyte Peritoneal Fl 40 %; Man Diluent Bkgrd OK YES; Monocytes Peritoneal Fl 43 %; Neutrophils Peritoneal Fluid 17 %
[2024-10-12] MEDS: Phytonadione (Vit K1) Oral 10 MG/ML AMPUL PO (18:13)
[2024-10-12 18:55] VITALS: BP 106/78; PULSE 81; RESP 12; TEMP 36.8; O2SAT 100
--- NOTE | 2024-10-12 19:21 | PHA.MEDREC ---
Addendum entered by Mamadou Reaves PharmD 10/12/24 19:26: reviewed Original Note: Pharmacy Consult ? Medication Reconciliation Pharmacy has completed the medication reconciliation. Spoke to patient visiting nurse Kelsey [phone] to confirm med list. Nurse confirmed patient is taking Suboxone 8/2mg Daily, last filled 09/05/24 for 30 days, claims also has Suboxone 4/1mg last filled 09/26/24 for 14 days. left Suboxone 8/2 on me rec because it is what nurse confirmed. Patient had all of her morning medications today.
[2024-10-12 20:33] VITALS: BMI 38.9
[2024-10-12 20:34] VITALS: BP 103/58; PULSE 70; RESP 18; TEMP 36.8; O2SAT 100
[2024-10-12] MEDS: 0.9 % Sodium Chloride Flush 3 ML SYRINGE IVFLUSH (21:43)
[2024-10-13 04:00] VITALS: BP 99/55; PULSE 65; RESP 18; TEMP 36.8; O2SAT 97
[2024-10-13] MEDS: Albumin Human 25 % 100 ML IV ×4 (04:25→23:03)
[2024-10-13 06:26] LABS: Appearance Urine Cloudy; Glucose Urine UA Negative (Negative); PH 5.5 (5.0-9.0); Specific Gravity - Urine 1.025 (1.005-1.025); UMIC TRIGGER UACC YES
--- NOTE | 2024-10-13 06:33 | PC.NURSE ---
pt unable to void overnight, bladder scanned for 604 ml, tiger text to Dr. Hunter, straight cath ordered, straight cath'd for 500 ml.
[2024-10-13 06:42] LABS: MANUAL DIFF FLAG NO
[2024-10-13 06:43] LABS: UACC Culture Trigger YES
[2024-10-13 06:46] LABS: Hematocrit 27.0 % (37.0-47.0); Hemoglobin 9.1 g/dl (12.0-16.0); Imm Gran Abs Auto 0.03 X10*3/uL (0.00-0.03); Imm Gran Pct Auto 0.4 % (0.0-0.4); Lymphocytes Absolute Auto 0.9 X10*3/uL (1.2-4.9); Mean Corpuscular HGB Conc 33.7 g/dl (31.0-35.0); Mean Corpuscular Hemoglobin 33.5 pg (27.0-33.0); Mean Corpuscular Volume 99.3 fL (80.0-98.0); NRBC Abs Auto 0.020 X10*3/uL (0.0-0.012); NRBC Pct Auto 0.3 /100WBC (0.0-0.2); Platelet Count 166 X10*3/uL (160-400); Red Blood Count 2.72 X10*6/uL (4.20-5.50); White Blood Count 7.0 X10*3/uL (4.8-10.8)
[2024-10-13 06:57] LABS: Cannabinoid Screen Urine Not Detected (Not Detect)
[2024-10-13 07:05] LABS: Alanine Aminotransferase 11 U/L (0-31); Albumin Level 2.8 g/dL (3.5-5.0); Alkaline Phosphatase 83 U/L (39-117); Anion Gap 12 (12-20); Aspartate Amino Transferase 60 U/L (5-31); Blood Urea Nitrogen 5 mg/dL (9-16); Calcium 8.5 mg/dL (8.4-10.2); Carbon Dioxide 26 mmol/L (22-29); Chloride 102 mmol/L (96-108); Creatinine Clr Calc Pharmacy 153.7; Estimated Glomerular Filt Rate > 60; Magnesium 2.0 mg/dL (1.6-2.6); Potassium 4.6 mmol/L (3.3-5.1); Sodium 135 mmol/L (135-145); Total Protein 5.3 g/dL (6.5-8.0)
[2024-10-13 07:24] VITALS: BP 90/51; PULSE 67; RESP 17; TEMP 36.6; O2SAT 100
[2024-10-13] MEDS: 0.9 % Sodium Chloride Flush 3 ML SYRINGE IVFLUSH ×3 (07:44→23:08)
--- NOTE | 2024-10-13 08:00 | HO.PM.IMPN ---
Subjective Subjective Date of Service: 10/13/24 Interval History: Tox screen positive for buprenorphine, barbiturates, phencyclidine, benzodiazepines Patient was hypotensive this a.m. Patient's clinical status continues to wax and wane. She is not responding to the current management. She was hypotensive with map less than 65 today requiring initiation of midodrine 2.5 p.o. t.i.d. which had to go up to 5 mg p.o. t.i.d. given that she continues to be 96/54. I have initiated ceftriaxone given concern for SBP till I await the ascitic tap results I have uptitrated her lactulose to 40 p.o. t.i.d. as she has not had a bowel movement yet, also initiated rectal lactulose as likely she is not responding to the lactulose. Continue rifaximin, we will initiate spironolactone and furosemide as management for hepatic encephalopathy. They could not in case her spironolactone today for low blood pressure. Patient does not have capacity-has significant metabolic encephalopathy Spoke to patient's Yifan who is aware that she has been deteriorating clinically and is aware that they would reach this point at some point . Hence code status was changed to DNR DNI. She would like to get the house ready by Thursday and then take her home on comfort measures/hospice. John reports that he is very happy with the care his mom and his are receiving at [facility] He is aware that she will likely need to go on hospice. Hospice would like to do her intake on Thursday based on availability Review of Systems Review of Systems: Yes Unobtainable due to mental status Physical Exam Vital Signs: Vital Signs: Last Vital Signs Temp 97.9 F 10/13/24 07:24 Pulse 67 10/13/24 07:24 Resp 17 10/13/24 07:24 BP 90/51 L 10/13/24 07:24 Pulse Ox 100 10/13/24 07:24 O2 Del Method Room Air 10/13/24 07:24 BMI result Body Mass Index 38.9 CONSTITUTIONAL: The patient appears chronically ill, jaundiced, highly anxious, tearful, very encephalopathy, repeating commands/seems encephalopathic. She repeats they took a lot of fluid out of my belly nearly 10 times during this same encounter. EYES: icteric sclera ENT: Mucous membranes dry CHEST: Symmetric movement, normal appearance. LUNGS: No rales, rhonchi, although limited secondary to her body habitus CARDIAC: Regular Rhythm, S1/S2 appreciated, no murmurs, rubs or gallops. ABDOMEN: Abdomen significant distended, ascitic tap area-left lower quadrant soaked with leaking ascitic fluid NEURO: Alert and oriented x 0, encephalopathy PSYCH: Markedly anxious affect, tearful, pressure speech, inappropriate response to questioning. SKIN: dry, marked jaundice diffusely, decreased turgor. Objective Data Active Medications Buprenorphine/Naloxone (Buprenorphine/Naloxone 8/2 Mg Film) 1 film SUBLINGUAL DAILY [facility] Last Admin: 10/13/24 07:45 Dose: 1 film Documented By: HAI Folic Acid (Folic Acid 1 Mg Tablet) 1 mg PO DAILY [facility] Last Admin: 10/13/24 07:46 Dose: 1 mg Documented By: HAI Albumin Human (Kedbumin 25 %) 100 mls @ 100 mls/hr IV Q6H [facility] Stop: 10/13/24 11:44 Last Infusion: 10/13/24 05:32 Dose: Infused Documented By: VICENTE Lactulose (Lactulose 20 Gm/30 Ml Solution) 30 gm PO TID [facility] Last Admin: 10/13/24 07:48 Dose: 30 gm Documented By: HAI Magnesium Oxide (Magnesium Oxide 400 Mg Tablet) 400 mg PO DAILY [facility] Last Admin: 10/13/24 07:45 Dose: 400 mg Documented By: HAI Melatonin (Melatonin 3 Mg Tablet) 6 mg PO BEDTIME PRN PRN Reason: Insomnia Last Admin: 10/12/24 20:50 Dose: 6 mg Documented By: VICENTE Multivitamins/Vitamin C (Multivitamin Tablet) 1 tab PO DAILY [facility] Last Admin: 10/13/24 07:46 Dose: 1 tab Documented By: HAI Pantoprazole Sodium (Pantoprazole Sodium 40 Mg/10 Ml Vial) 40 mg IVPUSH DAILY@0630 [facility] Last Admin: 10/13/24 05:31 Dose: 40 mg Documented By: VICENTE Rifaximin (Rifaximin 550 Mg Tablet) 550 mg PO BID [facility] Last Admin: 10/13/24 07:46 Dose: 550 mg Documented By: HAI Sodium Chloride (0.9 % Sodium Chloride Flush 3 Ml Syringe) 3 ml IVFLUSH QSHIFT [facility] Last Admin: 10/13/24 07:44 Dose: 3 ml Documented By: HAI Spironolactone (Spironolactone 25 Mg Tablet) 50 mg PO DAILY [facility]; Protocol Thiamine HCl (Thiamine Hcl 100 Mg Tablet) 100 mg PO DAILY [facility] Last Admin: 10/13/24 07:46 Dose: 100 mg Documented By: HAI Zinc Sulfate (Zinc Sulfate 220 Mg Capsule) 220 mg PO DAILY [facility] Last Admin: 10/13/24 07:46 Dose: 220 mg Documented By: HAI Labs 10/13/24 06:30 10/13/24 06:30 Labs: Laboratory Results - last 24 hr 10/12/24 10/12/24 10/13/24 13:33 15:57 06:06 MCV 98.2 H MCH 33.4 H MCHC 34.0 RDW 15.8 Plt Count 219 MPV 10.2 Immature Gran % (Auto) 0.4 Neut % (Auto) 78.8 H Lymph % (Auto) 9.2 L [place] % (Auto) 8.1 Eos % (Auto) 2.6 Baso % (Auto) 0.9 Lymph # (Auto) 0.9 L [place] # (Auto) 0.8 Eos # (Auto) 0.3 Baso # (Auto) 0.1 Abs Immat Gran (auto) 0.04 H Absolute Neuts (auto) 7.7 Absolute Nucleated RBC 0.000 Nucleated RBC % (auto) 0.0 PT 25.9 H INR 2.3 H Anion Gap 11 L Estim Creat Clear Calc 165.3 Estimated GFR > 60 Random Glucose 81 Cancelled Lactic Acid 1.4 Calcium 8.3 L Magnesium 1.9 Total Bilirubin 15.1 H AST 86 H ALT 19 Alkaline Phosphatase 130 H Ammonia 78 H Total Protein 6.4 L Albumin 2.5 L Amylase 41 Lipase 13 Urine Color Dark Yellow Urine Appearance Cloudy Urine pH 5.5 Ur Specific [place] 1.025 Urine Protein Trace Urine Glucose (UA) Negative Urine Ketones Negative Urine Blood Negative Urine Nitrite Positive H Ur Leukocyte Esterase Small (1+) H Urine RBC 0-2 Urine WBC 0-5 Ur Squamous Epith Cells 0-2 Urine Bacteria 2+ Hyaline Casts 3-5 Peritoneal WBC 0.144 Peritoneal RBC < 0.002 [place] Neutrophils 17 [place] Lymphocytes 40 Peritoneal Monocytes 43 Urine Opiates Screen Not Detected Ur Buprenorphine Scrn Positive H Ur Oxycodone Screen Not Detected Urine Methadone Screen Not Detected Urine Fentanyl Screen Not Detected Ur Barbiturates Screen POSITIVE H Ur Phencyclidine Scrn POSITIVE H Ur Amphetamines Screen Not Detected U Benzodiazepines Scrn POSITIVE H Urine Cocaine Screen Not Detected U Marijuana (THC) Screen Not Detected Ethyl Alcohol < 10 10/13/24 06:30 MCV 99.3 H MCH 33.5 H MCHC 33.7 RDW 15.8 Plt Count 166 MPV 9.9 Immature Gran % (Auto) 0.4 Neut % (Auto) 72.7 Lymph % (Auto) 13.2 L [place] % (Auto) 9.5 Eos % (Auto) 3.2 Baso % (Auto) 1.0 Lymph # (Auto) 0.9 L [place] # (Auto) 0.7 Eos # (Auto) 0.2 Baso # (Auto) 0.1 Abs Immat Gran (auto) 0.03 Absolute Neuts (auto) 5.1 Absolute Nucleated RBC 0.020 H Nucleated RBC % (auto) 0.3 H PT INR Anion Gap 12 Estim Creat Clear Calc 153.7 Estimated GFR > 60 Random Glucose 73 Lactic Acid Calcium 8.5 Magnesium 2.0 Total Bilirubin 11.8 H AST 60 H ALT 11 Alkaline Phosphatase 83 Ammonia Total Protein 5.3 L Albumin 2.8 L Amylase Lipase Urine Color Urine Appearance Urine pH Ur Specific [place] Urine Protein Urine Glucose (UA) Urine Ketones Urine Blood Urine Nitrite Ur Leukocyte Esterase Urine RBC Urine WBC Ur Squamous Epith Cells Urine Bacteria Hyaline Casts Peritoneal WBC Peritoneal RBC Periton Neutrophils Periton Lymphocytes Peritoneal Monocytes Urine Opiates Screen Ur Buprenorphine Scrn Ur Oxycodone Screen Urine Methadone Screen Urine Fentanyl Screen Ur Barbiturates Screen Ur Phencyclidine Scrn Ur Amphetamines Screen U Benzodiazepines Scrn Urine Cocaine Screen U Marijuana (THC) Screen Ethyl Alcohol Assessment and Plan (1) Decompensated liver disease: Status: Acute Plan 53-year-old female with medical history of alcohol use disorder, obesity status post gastric bypass, mood disorder, with known recurrent readmissions for worsening hepatic encephalopathy not responding to medical management/worsening MELD score, not a candidate for liver transplant. Hepatic encephalopathy, stage II Meld score greater than 35 Previous MELD score 29 on last admission Patient underwent ascitic tap on admission on 10/12/2024, awaiting results, we will initiate her on ceftriaxone empirically given high likelihood of significant decompensation and hemodynamic collapse Patient was initiated on lactulose 30 mg p.o. t.i.d.-however she did not respond and hence I have initiated rectal lactulose and uptitrated her p.o. lactulose until she achieves goal bowel movement of 3-5 bowel movements per day Continue lactulose, rifaximin, initiate spironolactone and furosemide for hepatic encephalopathy treatment Need need to initiate midodrine 5 mg p.o. t.i.d. given low blood pressure with SBP less than 65 in the a.m. Patient is not a candidate for liver transplant per [facility] Patient is a hospice candidate patient and her can take her home on Thursday has hospice is available to take her on Thursday based on availability Patient's would also like to prepare the home to take her home after the . Decompensated chronic liver disease with ascites, coagulopathy, hyperbilirubinemia Hyperbilirubinemia is improving, however guarded prognosis as she is not responding to current medical management We will check daily CBC, INR Patient is a hospice candidate patient and her can take her home on Thursday has hospice is available to take her on Thursday based on availability Patient's would also like to prepare the home to take her home after the weekend. Continue thiamine, folic acid, zinc and multivitamins. Hyponatremia, mild. Secondary to 3rd spacing. Continue to monitor. Soft blood pressure secondary to cirrhosis. Albumin and midodrine. Opiate use disorder. Continue Suboxone. Chronic anemia. Continue to monitor. DVT prophylaxis: SCDs (high risk for bleeding due to coagulopathy). GI prophylaxis. PPI IV. Code status: DNR/DNI This note is constructed using voice recognition software. While every effort has been made to ensure accuracy, hat body sorter errors may have been included. Total time managing care of this patient today: 45 minutes. Quality Stroke Does the patient have a stroke diagnosis?: No VTE Prior VTE?: No VTE Risk Level:: Medical - moderate - high VTE Device Contraindication: N/A - Device Ordered VTE Drug Contraindication: Treatment Not Indicated
[2024-10-13 11:35] VITALS: BP 96/54
[2024-10-13 13:35] LABS: Ammonia 47 umol/L (13-55)
--- NOTE | 2024-10-13 13:43 | PM.EVENT ---
Event Note Date of Service: 10/13/24 Event Note: Spoke to Ronald and he knows that its the enviable and he would like to transition her to DNR/DNI at this time. He reports that he is aware that this he has had seen this coming for a while. John says he is aware of FERMENTATION OPERATOR as his mother was on FERMENTATION OPERATOR a year ago. He is unsure if she will make it through the night. If the pt were to further deteriorate, he would like her to be FERMENTATION OPERATOR. Please call the before escalating care. Time Spent With Patient Time: Total time managing care of this patient today ____ minutes.
--- NOTE | 2024-10-13 13:59 | MHC.CM.PN ---
Addendum entered by Lyn Bean 10/13/24 14:15: HCP is on file. She is now a DNR. Original Note: Hepatic Encephalopathy elevated Amonia Patient lives with spouse and nephew. She requires assistance with all functional mobility. A Hospice consult has been ordered. Pt's Spouse, Yifan was contacted via phone. He is agreeable to a hospice informational meeting. He stated that his preference is Hospice in the home. He requested [facility]. His mother received care from [facility]. He was very happy with the care. A referral has been sent to the agency. They are reviewing the case. DP Home with Hospice via BLS. Discharge once hospice is arranged.
[2024-10-13 16:00] VITALS: BP 108/57; PULSE 68; RESP 18; TEMP 36.4; O2SAT 96
[2024-10-13] MEDS: Lactulose 320 GM/480 ML SOLUTION 200 GM PR ×2 (17:00→22:50)
--- NOTE | 2024-10-13 18:34 | PC.NURSE ---
pt abdominal dressing changed twice due to saturation from paracentises puncture site. Provider notified.
--- NOTE | 2024-10-13 19:07 | PC.NURSE ---
Pt with urine retention. Bladder scan 338. No urge to void. Very somnolent and slurring words. Very jaundice. BP 90/51. No BM for [address] Flores notified. Order for palm, ammonia level, midodrine, albumin. Lactulose po increased and ordered MN. Ammonia level 47. Pt more alert in evening. Took Po lactulose and tolerated MN lactulose. Had large formed stool. 18F palm placed. Dark aury urine returned. BP improved 108/57. Pt more awake this evening. Requesting palm removal and wants to eat. Dr. Flores notified. Unable to advance diet due to aspiration precautions. Pt educated about need for palm at present.
[2024-10-13 19:33] LABS: OBS1 NEGATIVE (NEGATIVE)
[2024-10-13 19:34] LABS: OBS Int Ctl Valid YES; OBS Lot 0124
[2024-10-13 20:00] VITALS: BP 102/59; PULSE 71; RESP 18; TEMP 36.6; O2SAT 99
[2024-10-14 04:00] VITALS: BP 97/55; PULSE 69; RESP 16; TEMP 37.1; O2SAT 94
[2024-10-14] MEDS: Albumin Human 25 % 100 ML IV ×2 (04:53→12:49)
[2024-10-14 06:02] LABS: Hematocrit 25.8 % (37.0-47.0); Hemoglobin 8.7 g/dl (12.0-16.0); Mean Corpuscular HGB Conc 33.7 g/dl (31.0-35.0); Mean Corpuscular Hemoglobin 33.6 pg (27.0-33.0); Mean Corpuscular Volume 99.6 fL (80.0-98.0); NRBC Abs Auto 0.000 X10*3/uL (0.0-0.012); NRBC Pct Auto 0.0 /100WBC (0.0-0.2); Platelet Count 162 X10*3/uL (160-400); Red Blood Count 2.59 X10*6/uL (4.20-5.50); White Blood Count 8.0 X10*3/uL (4.8-10.8)
[2024-10-14 06:19] LABS: Alanine Aminotransferase 10 U/L (0-31); Albumin Level 3.0 g/dL (3.5-5.0); Alkaline Phosphatase 75 U/L (39-117); Anion Gap 13 (12-20); Aspartate Amino Transferase 54 U/L (5-31); Blood Urea Nitrogen 5 mg/dL (9-16); Calcium 8.4 mg/dL (8.4-10.2); Carbon Dioxide 23 mmol/L (22-29); Chloride 104 mmol/L (96-108); Creatinine Clr Calc Pharmacy 187.4; Estimated Glomerular Filt Rate > 60; Potassium 3.4 mmol/L (3.3-5.1); Sodium 137 mmol/L (135-145); Total Protein 5.1 g/dL (6.5-8.0)
[2024-10-14 06:27] LABS: INTERNATIONAL NORM RATIO 2.8 (0.9-1.1); Prothrombin Time 32.3 SEC (10.9-12.4)
[2024-10-14 07:41] LABS: Albumin Peritoneal Fluid 0.5
--- NOTE | 2024-10-14 07:52 | HO.PM.IMPN ---
Subjective Subjective Date of Service: 10/14/24 Interval History: Patient's transition the patient to PRODUCT SAFETY CONSULTANT as of 10/14/2024 given poor response to escalating medical management Review of Systems Review of Systems: Yes Unobtainable due to mental condition and Unobtainable due to mental status Physical Exam Vital Signs: Vital Signs: Last Vital Signs Temp 98.7 F 10/14/24 04:00 Pulse 69 10/14/24 04:00 Resp 16 10/14/24 04:00 BP 97/55 L 10/14/24 04:00 Pulse Ox 94 10/14/24 04:00 O2 Del Method Room Air 10/14/24 04:00 BMI result Body Mass Index 38.9 CONSTITUTIONAL: The patient appears chronically ill, very jaundiced, highly anxious, tearful, very encephalopathy, repeating commands/seems encephalopathic. She says I want food , let me eat EYES: icteric sclera ENT: Mucous membranes dry CHEST: Symmetric movement, normal appearance. LUNGS: No rales, rhonchi, although limited secondary to her body habitus CARDIAC: Regular Rhythm, S1/S2 appreciated, no murmurs, rubs or gallops. ABDOMEN: Abdomen significant distended, ascitic tap area-left lower quadrant soaked with leaking ascitic fluid NEURO: Alert and oriented x 0, encephalopathy PSYCH: Markedly anxious affect, tearful, pressure speech, inappropriate response to questioning. SKIN: dry, marked jaundice diffusely, decreased turgor. Objective Data Active Medications Buprenorphine/Naloxone (Buprenorphine/Naloxone 8/2 Mg Film) 1 film SUBLINGUAL DAILY [facility] Last Admin: 10/13/24 07:45 Dose: 1 film Documented By: HAI Ceftriaxone Sodium (Ceftriaxone Sodium 2 Gm Vial) 2 gm IVPUSH Q24H [facility] Last Admin: 10/13/24 16:53 Dose: 2 gm Documented By: HAI Folic Acid (Folic Acid 1 Mg Tablet) 1 mg PO DAILY [facility] Last Admin: 10/13/24 07:46 Dose: 1 mg Documented By: HAI Albumin Human (Kedbumin 25 %) 100 mls @ 100 mls/hr IV Q6H [facility] Stop: 10/14/24 11:59 Last Infusion: 10/14/24 07:49 Dose: Infused Documented By: ERMELINDA Phytonadione 5 mg/ Sodium (Chloride) 50.5 mls @ 50.5 mls/hr IV ONCE ONE Stop: 10/14/24 08:50 Lactulose (Lactulose 320 Gm/480 Ml Solution) 200 gm W[place] Q4H [facility] Last Admin: 10/14/24 04:52 Dose: Not Given Documented By: REESE Non-Admin Reason: Patient Refused Lactulose (Lactulose 20 Gm/30 Ml Solution) 40 gm PO TID [facility] Last Admin: 10/13/24 22:48 Dose: 40 gm Documented By: REESE Magnesium Oxide (Magnesium Oxide 400 Mg Tablet) 400 mg PO DAILY [facility] Last Admin: 10/13/24 07:45 Dose: 400 mg Documented By: HAI Melatonin (Melatonin 3 Mg Tablet) 6 mg PO BEDTIME PRN PRN Reason: Insomnia Last Admin: 10/12/24 20:50 Dose: 6 mg Documented By: VICENTE Midodrine (Midodrine Hcl 5 Mg Tablet) 5 mg PO TIDWM [facility] Last Admin: 10/13/24 16:54 Dose: 5 mg Documented By: HAI Multivitamins/Vitamin C (Multivitamin Tablet) 1 tab PO DAILY [facility] Last Admin: 10/13/24 07:46 Dose: 1 tab Documented By: HAI Pantoprazole Sodium (Pantoprazole Sodium 40 Mg/10 Ml Vial) 40 mg IVPUSH DAILY@0630 [facility] Last Admin: 10/14/24 05:54 Dose: 40 mg Documented By: LIZANDRO Rifaximin (Rifaximin 550 Mg Tablet) 550 mg PO BID [facility] Last Admin: 10/13/24 23:04 Dose: 550 mg Documented By: REESE Sodium Chloride (0.9 % Sodium Chloride Flush 3 Ml Syringe) 3 ml IVFLUSH QSHIFT [facility] Last Admin: 10/13/24 23:08 Dose: 3 ml Documented By: REESE Spironolactone (Spironolactone 25 Mg Tablet) 50 mg PO DAILY [facility]; Protocol Last Admin: 10/13/24 09:34 Dose: Not Given Documented By: HAI Non-Admin Reason: Decreased Blood Pressure Thiamine HCl (Thiamine Hcl 100 Mg Tablet) 100 mg PO DAILY [facility] Last Admin: 10/13/24 07:46 Dose: 100 mg Documented By: HO.MCDANID Zinc Sulfate (Zinc Sulfate 220 Mg Capsule) 220 mg PO DAILY [facility] Last Admin: 10/13/24 07:46 Dose: 220 mg Documented By: HAI Labs 10/14/24 05:19 10/14/24 05:19 Labs: Laboratory Results - last 24 hr 10/12/24 10/13/24 10/13/24 15:57 13:21 19:20 MCV MCH MCHC RDW Plt Count MPV Absolute Nucleated RBC Nucleated RBC % (auto) PT INR Anion Gap Estim Creat Clear Calc Estimated GFR Random Glucose Calcium Total Bilirubin AST ALT Alkaline Phosphatase Ammonia 47 Total Protein Albumin Peritoneal Albumin 0.5 Peritoneal Glucose 91 Stool Occult Blood NEGATIVE 10/14/24 05:19 MCV 99.6 H MCH 33.6 H MCHC 33.7 RDW 15.7 Plt Count 162 MPV 10.5 Absolute Nucleated RBC 0.000 Nucleated RBC % (auto) 0.0 PT 32.3 H D INR 2.8 H Anion Gap 13 Estim Creat Clear Calc 187.4 Estimated GFR > 60 Random Glucose 72 Calcium 8.4 Total Bilirubin 10.5 H AST 54 H ALT 10 Alkaline Phosphatase 75 Ammonia Total Protein 5.1 L Albumin 3.0 L Peritoneal Albumin Peritoneal Glucose Stool Occult Blood Microbiology Microbiology Results: Microbiology 10/12/24 13:52 Blood Culture - Preliminary Blood - Venous No growth after 24 hours. 10/12/24 13:33 Blood Culture - Preliminary Blood - Venous No growth after 24 hours. 10/12/24 15:57 Gram Stain - Final Abdominal Fluid Routine Culture - Preliminary No growth to date. Anaerobic Culture - Preliminary No growth to date. Assessment and Plan (1) Decompensated liver disease: Status: Acute Plan Hepatic encephalopathy, stage II Decompensated chronic liver disease with ascites, coagulopathy, hyperbilirubinemia Hyponatremia-likely secondary to hypoalbuminemic, hypo volemic hyponatremia Adult failure to thrive Hypoalbuminemia secondary to decompensated liver cirrhosis Soft blood pressure secondary to cirrhosis Hepatorenal syndrome Cardiorenal syndrome 53-year-old female with medical history of alcohol use disorder, obesity status post gastric bypass, mood disorder, with known recurrent readmissions for worsening hepatic encephalopathy not responding to medical management/worsening MELD score, not a candidate for liver transplant. During this admission, patient continued to have worsening MELD score, poor response to medical management, worsening hepatorenal syndrome, cardiorenal syndrome, soft blood pressure requiring escalating doses of midodrine, ascitic tap less indicative for SBP however was placed on empiric ceftriaxone. Patient's code status was changed to DNR DNI on 10/13/2024 given worsening clinical condition and no further medical conservations and we transitioned her to PRODUCT SAFETY CONSULTANT the afternoon of 10/14/2024. Continue lactulose, rifaximin, initiate spironolactone and furosemide for hepatic encephalopathy treatment Need need to initiate midodrine 5 mg p.o. t.i.d. given low blood pressure with SBP less than 65 in the a.m. Patient is not a candidate for liver transplant per [facility] Patient is a hospice candidate patient and her can take her home on Thursday has hospice is available to take her on Thursday based on availability Patient's would also like to prepare the home to take her home after the weekend. Code status: PRODUCT SAFETY CONSULTANT This note is constructed using voice recognition software. While every effort has been made to ensure accuracy, tank washer errors may have been included. Total time managing care of this patient today: 45 minutes. Quality Stroke Does the patient have a stroke diagnosis?: No VTE Prior VTE?: No VTE Risk Level:: Medical - moderate - high VTE Device Contraindication: N/A - Device Ordered VTE Drug Contraindication: Treatment Not Indicated
[2024-10-14 07:56] VITALS: BP 103/57; PULSE 73; RESP 18; TEMP 37.1; O2SAT 97
[2024-10-14 12:55] VITALS: BP 112/60; O2SAT 98
--- NOTE | 2024-10-14 13:29 | MHC.SL.SWA ---
Speech Pathologist Impression: Risk of Aspiration, Mild Oral Phase Dysphagia Risk of Aspiration Due to: Reduced Cognition Dysphasia Diet Status: Start on REGULAR/THIN Liquid Consistency and Strategies for Safe Swallow: Liquid Intake Recommendation: Thin Solid Food Consistency: Dietary Recommendations: Regular Additional Modifications to Solid Foods: Small bites, Alternate Solids/Liquids, Remain Upright During PO Intake Oral Medication Intake: Whole with Liquid Please contact the pharmacy regarding appropriate crushable or liquid drug formulations that are available whenever modified delivery is recommended. Supervision While Eating and Drinking for Safe Swallow: Direct Supervision (1:1) Recommendation for Speech: NA:Typical Evaluation Comment: Please re-refer with any changes or further concern. Chemical Plant Worker Clinican/Clinical Fellow: No Supervisory Statement: I have reviewed and agree with the student/clinical fellow's documentation: N/A Speech Language Pathologist: Josefina Morrison M.A., CCC-COMPUTER VIDEO GAME DESIGNER
--- NOTE | 2024-10-14 14:55 | MHC.CM.PN ---
DP Home on Hospice new. has been notified that a new Mol[facility] form has been requested , by hospice. She has agreed to document a new HCP for Hospice. [facility] 10/17/24 [facility] via [facility]
[2024-10-14 16:00] VITALS: BP 103/58; PULSE 70; RESP 18; TEMP 37.1; O2SAT 93
--- NOTE | 2024-10-14 17:53 | P.EN_ITS ---
Event Note Date of Service: 10/14/24 Event Note: During this admission, patient continued to have worsening MELD score, poor response to medical management, worsening hepatorenal syndrome, cardiorenal syndrome, soft blood pressure requiring escalating doses of midodrine, ascitic tap less indicative for SBP however was placed on empiric ceftriaxone. Patient's code status was changed to DNR DNI on 10/13/2024 given worsening clinical condition and no further medical conservations and we transitioned her to SALESFORCE BUSINESS ANALYST the afternoon of 10/14/2024. Time Spent With Patient Time: Total time managing care of this patient today __>35__ minutes.
[2024-10-14 20:00] VITALS: RESP 18
[2024-10-15 04:00] VITALS: RESP 18
[2024-10-15 08:14] VITALS: RESP 12
--- NOTE | 2024-10-15 10:18 | PC.NURSE ---
Patient has a palm present,Dr. Tompkins notified of need for an order
--- NOTE | 2024-10-15 10:47 | MHC.CM.PN ---
PER [facility] COMMUNICATION, PLAN WAS FOR PT TO DC HOME Thursday WITH A SAME DAY SOC FROM [facility] CM SPOKE TO PTS THIS MORNING, HE REPORTS HE IS READY FOR HER TO BE HOME TODAY HE STATES HE FEELS SHE IS NEAR THE END AND WANTS HER TO BE HOME WITH HIM HE UNDERSTANDS NO DME WILL BE DELIVERED AND STATES THE ONLY THING HE WAS GETTING WAS POSSIBLY O2, WHICH SHE HAS NO NEEDED CM EXPLAINED IF SHE DID COME TO NEED SUPPLEMENTAL O2 OVERNIGHT, HE WOULD NOT BE ABLE TO CALL [facility] FOR ASSISTANCE PER DISCUSSION, HE AGREES TO A LATE DAY DC. TRANSPORT BOOKED WITH [facility] FOR 1600 HOURS [facility] AWARE
--- NOTE | 2024-10-15 11:38 | PM.DS ---
DS: Providers Provider Date of Service: 10/15/24 Date of admission: 10/12/24 16:39 Date of discharge: 10/15/24 Primary care physician: Baljeet Perry MD Consults: 10/13/24 13:55 Consult to Outsole Cutter Machine Stat Comment: 10/14/24 16:25 Consult to Case Management Routine Comment: Consult to Hospice Stat Comment: product/industry consultant, ready to take her home DS: Diagnosis Discharge Diagnosis (1) Decompensated liver disease: Status: Acute (2) Comfort measures only status: Status: Acute (3) Metabolic encephalopathy: Status: Acute (4) Cirrhosis of liver: Status: Acute (5) Abdominal ascites: Status: Acute (6) Acute hepatic encephalopathy: Status: Acute (7) Physical deconditioning: Status: Acute DS: Summary Hospital Course Hospital Course: Admission note SAMUEL Mims is a 53 years old woman with past medical history significant for chronic liver disease, hypertension, opiate use disorder on Suboxone and depression presents to the emergency department complaining of increased abdominal girth ( I have ascites ) and abdominal pain. She also reports constipation -last bowel movement was 3 days ago. She denied diarrhea, nausea or vomiting. She denied any changes in the dose of her medication and mentioned that she thinks that her is giving the inappropriate dose of lactulose. She mentioned that her jaundice is actually getting better as well as her icteric sclerae. She denied black or bloody stools. She denied fever or chills. She denies chest pain, shortness on breath, cough, fever, palpitations, dizziness and headache. She denied active alcohol abuse -last alcoholic drink was 3 months ago. She denied pain with urination. She denied tobacco smoking or illicit drug use. In the ED, she was found to have stable vital signs. Last blood pressure 98/58. Other vital signs are normal. Blood workup showed no leukocytosis. Hemoglobin is 11.2 which is around baseline. Platelets are 219. INR is 2.3. There is hyponatremia, 133. There are no other electrolyte imbalances. BUN is 6 and creatinine 0.42. Glucose is 81. Total bilirubin is 15.1 (prior 19.5), AST is 86, ALT 19, alk-phos 130. Troponin is 3.9. Albumin 2.5 with total protein of 6.4. Amylase and lipase are normal. Peritoneal fluid analysis: Pending. ETOH level < 10. Serology for COVID-19, influenza and RSV is negative (5 days ago). Abdominal pelvis CT scan showed cirrhosis with moderate abdominopelvic ascites. Five days ago she underwent a CXR that was negative. ED tx: Paracentesis. Lactulose 30 g p.o., ceftriaxone 1 g IV. Hospital course 53-year-old female with medical history of alcohol use disorder, obesity status post gastric bypass, mood disorder, with known recurrent readmissions for worsening hepatic encephalopathy not responding to medical management/worsening MELD score, not a candidate for liver transplant. During this admission, patient continued to have worsening MELD score, poor response to medical management, worsening hepatorenal syndrome, cardiorenal syndrome, soft blood pressure requiring escalating doses of midodrine, ascitic tap less indicative for SBP however was placed on empiric ceftriaxone. Patient's code status was changed to DNR DNI on 10/13/2024 given worsening clinical condition and no further medical conservations and we transitioned her to [employer]TER [employer]PERATOR the afternoon of 10/14/2024 as Patient is not a candidate for liver transplant per [facility]. To continue lactulose, rifaximin, spironolactone for hepatic encephalopathy treatment at time of discharge along with comfort medications of Ativan and Morphine as needed. She will be followed by Hospice team at home. Discharge plan Continue Lactulose and Xifaxan for bowel movement and mentation Morphine for pain Lorazepam for anxiety Hospice team to follow at home Time Attestation Discharge Coordination Time (in mins): 41 Quality: Safe Use of Opioids Does Pt have an Active Cancer Diagnosis on the Problem List?: No Quality: Stroke Does the patient have a stroke diagnosis?: No Physical Exam Vital Signs: Vital Signs: Last Vital Signs Temp 98.8 F 10/14/24 16:00 Pulse 70 10/14/24 16:00 Resp 12 10/15/24 08:14 BP 103/58 L 10/14/24 16:00 Pulse Ox 93 10/14/24 16:00 O2 Del Method Room Air 10/14/24 16:00 BMI result Body Mass Index 38.9 Const: Other: Comfortable, alert, confused, jaundiced. DS: Data Data Completed and Pending Completed studies during hospitalization [Text1]: Procedures Detoxification Services for Substance Abuse Treatment (08/16/24) Drainage of Peritoneal Cavity, Percutaneous Approach (09/26/24) Drainage of Right Upper Arm Subcutaneous Tissue and Fascia, Open Approach (05/13/23) Transfusion of Nonautologous Red Blood Cells into Peripheral Vein, Percutaneous Approach (08/16/24) Labs on day of discharge: Preliminary micro results at discharge 10/12/24 15:57 Anaerobic Culture - Preliminary Abdominal Fluid No growth to date. 10/12/24 13:52 Blood Culture - Preliminary Blood - Venous No growth after 48 hours. 10/12/24 13:33 Blood Culture - Preliminary Blood - Venous No growth after 48 hours. 10/13/24 Unknown Urine Culture - Preliminary Urine Catheterized - Straight Catheter Culture in progress. Discharge Plan Discharge Anticipated Discharge Date/Time: 10/15/24 11:30 Patient Disposition: Hospice - Home Discharge Diagnosis: Decompensated liver cirrhosis Referrals: Baljeet Champagne MD [Primary Care Provider, Medical] - 1 Week Discharge Medications: New ondansetron 4 mg Tablet,Disintegrating 4 mg translingual Q8H PRN (Reason: Nausea And Vomiting) Qty: 20 0RF morphine concentrate 100 mg/5 mL (20 mg/mL) solution 5 mg PO Q4H PRN (Reason: Comfort, dyspnea, pain) Qty: 30 0RF Rx Instructions: Partial Fill upon patient request. lorazepam 1 mg Tablet 1 mg PO Q4H PRN (Reason: Myoclonic twitching/anxiety) Qty: 20 0RF Continued hydroxyzine HCl 25 mg Tablet 25 mg PO Q6H PRN (Reason: Anxiety) Qty: 56 0RF multivitamin Tablet 1 tab PO DAILY Xifaxan 550 mg tablet 550 mg PO BID spironolactone 50 mg tablet 50 mg PO DAILY Qty: 90 0RF lactulose 10 gram/15 mL solution 15 ml PO TID Qty: 1350 2RF thiamine HCl (vitamin B1) 100 mg capsule 100 mg PO DAILY folic acid 1 mg tablet 1 mg PO DAILY Held buprenorphine-naloxone 8-2 mg film 1 film sublingual DAILY Hold Instructions: hold for now Discontinued gabapentin 100 mg capsule 100 mg PO BID magnesium oxide 400 mg magnesium tablet 400 mg PO DAILY zinc sulfate [Zinc-220] 50 mg zinc (220 mg) Capsule 220 mg PO DAILY Qty: 30 0RF chlordiazepoxide HCl 25 mg capsule 25 mg PO BID PRN (Reason: anxiety) Qty: 14 0RF Discharge Orders: Discharge Order (Routine); Ordered 10/15/24 Ordered By: Christiano Tompkins Diet: Advance to usual diet Activity on Discharge: As tolerated Stand Alone Forms: Patient Portal Discharge page Print Language: Swazi Care Plan Goals: Home Hospice Health Concerns: Decompensated Liver cirrhosis Plan of Treatment: Continue Lactulose and Xifaxan for bowel movement and mentation Morphine for pain Lorazepam for anxiety Hospice team to follow at home Assessment: as above
--- NOTE | 2024-10-15 16:07 | PC.NURSE ---
patient discharged with Prieto per Dr. Tompkins
== END 2024-10-15 16:30 | disposition hospice, home (50) | DRG 280 ==
LOC: HO.ED 16:38 → HO.EDOVER 16:54 → HO.S3 19:16
PROVIDERS: Radiology Diagnostic Radiology; Registered Nurse Emergency; Student in an Organized Health Care Education/Training Program; Admitting Provider Internal Medicine; Emergency Provider Emergency Medicine; PCP Internal Medicine; Visit Provider Student in an Organized Health Care Education/Training Program
DX: K70.31 Alcoholic cirrhosis of liver with ascites (principal); K76.7 Hepatorenal syndrome; D68.4 Acquired coagulation factor deficiency; E87.1 Hypo-osmolality and hyponatremia; D63.1 Anemia in chronic kidney disease; Z99.81 Dependence on supplemental oxygen; I13.10 Hypertensive heart and chronic kidney disease without heart failure, with stage 1 through stage 4 chronic kidney disease, or unspecified chronic kidney disease; N18.9 Chronic kidney disease, unspecified; F10.21 Alcohol dependence, in remission; E86.1 Hypovolemia; Z66 Do not resuscitate; Z51.5 Encounter for palliative care; F11.20 Opioid dependence, uncomplicated; K76.82 Hepatic encephalopathy; Z87.891 Personal history of nicotine dependence; Z79.899 Other long term (current) drug therapy
CPT/HCPCS: 36415; 70450; 80053; 80307; 81001; 82042; 82140; 82150; 82272; 82945; 83605; 83690; 83735; 85025; 85027; 85610; 87040; 87070; 87073; 87086; 87088; 87186; 87205; 89051; 92610; 99285; J0696; J2003; J2270; J2470; J3430; P9047

== ENCOUNTER 2024-10-12 16:39 | Outpatient (BNV) | payer BC, MEDICAID, SELFPAY | END 2024-10-12 16:59 | PROVIDERS: Admitting Provider Internal Medicine; Emergency Provider Emergency Medicine; Visit Provider Radiology Diagnostic Radiology | DX: R41.82 Altered mental status, unspecified (principal); G93.40 Encephalopathy, unspecified; R47.89 Other speech disturbances | CPT/HCPCS: 70450 ==

== ENCOUNTER → 2024-10-12 16:39 | Outpatient (BNV) | payer BC, MEDICAID, SELFPAY | PROVIDERS: Admitting Provider Internal Medicine; Emergency Provider Emergency Medicine; Visit Provider Internal Medicine | DX: K72.90 Hepatic failure, unspecified without coma (principal); K74.60 Unspecified cirrhosis of liver; Z51.5 Encounter for palliative care; G93.41 Metabolic encephalopathy; K70.31 Alcoholic cirrhosis of liver with ascites; K76.82 Hepatic encephalopathy; R53.81 Other malaise | CPT/HCPCS: 99223; 99239 ==

== ENCOUNTER 2024-11-05 18:00 | Outpatient (REF) | payer BC, MEDICAID, SELFPAY ==
[2024-11-05 22:10] LABS: Appearance Urine Turbid; Glucose Urine UA 100 mg/dL (Negative); PH 6.0 (5.0-9.0); Specific Gravity - Urine 1.025 (1.005-1.025); UMIC TRIGGER UA YES
== END 2024-11-05 18:01 | disposition home or self-care (01) ==
LOC: HO.LNP 18:00
PROVIDERS: Visit Provider Internal Medicine
DX: N39.0 Urinary tract infection, site not specified (principal)
CPT/HCPCS: 81001; 88112